=== PATIENT | female | born 1960 | race Caucasian/White ===

== ENCOUNTER 2018-12-19 05:19 | Inpatient (IN) | payer MEDICAID, SELFPAY ==
[2018-11-23 10:42] VITALS: BP 119/58; PULSE 91; RESP 17; TEMP 37.7; O2SAT 94; BMI 24.4
--- NOTE | 2018-11-23 11:04 | SDCEKG_ITS ---
Test Reason : Blood Pressure : / mmHG Vent. Rate : 084 BPM Atrial Rate : 084 BPM P-R Int : 150 ms QRS Dur : 096 ms QT Int : 360 ms P-R-T Axes : 071 072 049 degrees QTc Int : 425 ms Normal sinus rhythm Incomplete right bundle branch block Borderline ECG Confirmed by JESSICA BRAR, BREN ([id number]), editorial intern HERNESTO HOUSE ([id number]) on 11/24/2018 11:15:06 AM Referred By: Malcolm Wise Confirmed By:BREN LOPEZ MD
--- NOTE | 2018-11-23 11:22 | RAD_ITS ---
STUDY: X-RAY CHEST REASON FOR EXAM: Female, 58 years old. Wheezing and cough for past couple of days. TECHNIQUE: Frontal and lateral views of the chest. COMPARISON: November 18, 2016 FINDINGS: There is stable hyperexpansion. There is no demonstrated pleural abnormality. Normal size heart. Normal mediastinum and macho. Normal visualized pulmonary arteries. Normal visualized aortic arch and descending thoracic aorta. Normal visualized thoracic spine. Normal visualized ribs, clavicles, and shoulders. There is no demonstrated abnormality of the visualized soft tissue structures of the upper abdomen. RAD/Chest PA and Lateral IMPRESSION: Stable hyperexpansion with no acute finding. Electronically Signed: Moody Bashir MD at 12:21 EDT , Service support ,
[2018-11-23 11:41] LABS: Mean Corp Hgb Conc 31.8 g/gl (32-36); Mean Corpuscular Hgb 28.4 pg (27.0-32.0); Mean Corpuscular Volume 89.2 fL (81-99); Mean Platelet Vol. 9.6 fl (6.2-12.0); Platelet Count 304 K/mm3 (150-450); RBC Distribution Width CV 14.1 % (11.6-14.6); RBC Distribution Width SD 46.3 fl (35.1-43.9); Red Blood Count 4.93 M/mm3 (4.2-5.4); White Blood Count 6.8 K/mm3 (4.4-11.0)
[2018-11-23 11:43] LABS: Scan Indicated on CBC? Y/N NO
[2018-11-23 11:57] LABS: Anion Gap 6 (5-15); BUN 6 mg/dL (7-18); BUN/Creat Ratio 8.7 RATIO (10-20); Chloride 105 mmol/L (98-107); Creatinine, Serum 0.69 mg/dL (0.55-1.02); EST Glomerular Filtration Rate 93 mL/min (>60); Est Glom Filt Rate - Afr Amer 112 mL/min (>60); Estimated Creatinine Clearance 85.37 ml/min; Glucose 103 mg/dL (74-106); Sodium Level 138 mmol/L (136-145)
--- NOTE | 2018-11-23 20:45 | HP.PCM_ITS ---
History and Physical Date of Admission: 11/30/18 HISTORY AND PHYSICAL - COLON RESECTION FOR?RIGHT COLON UNRESECTABLE POLYP ? [place] Dhaliwal 1960 November 23, 2018 ? REFERRING PHYSICIAN: ??[place]ia Galloway MD ? CHIEF COMPLAINT: ?Unresectable polyp ? HPI: The patient is a 58 year old female with a history of challenging bowel preps relating to poor cleansing and previous smaller polyps which were removed. ?The patient underwent colonoscopy on November 01, [address] [place] Galloway which demonstrated a large sessile villous appearing polyp in the distal right colon. ?It appeared that the site had previously been tattooed with Analisa ink.. ??Pathology returned as fragments of tubular adenoma. ? The patient was given the option of referral to GI for possible saline lift or removal in either [facility] versus laparoscopic right hemicolectomy. ?I discussed with the patient the risks and benefits of both procedures and seems like to undergo laparoscopic right hemicolectomy. ? The patient is being seen by me today at the request of ?for my opinion and advice regarding unresectable right colon polyp. ? PAST?MEDICAL?HISTORY PAST MEDICAL HISTORY Diagnosis Date ? Asthma ? ? Bipolar I disorder, most recent episode (or current) unspecified ? ? Blood dyscrasia ? ? Chronic obstructive pulmonary disease (COPD) (HCC) ? ? Dysthymic disorder ? ? Depression (non-psychotic) ? Lumbago ? ? Obstructive chronic bronchitis with exacerbation (HCC) ? ? COPD ? Pulmonary embolus (HCC) ? ? 25 years prior ? Schizophrenia (HCC) ? ? follows with Dr Bill at [facility] ? Snoring ? ? Tobacco use disorder ? ? 1/2 ppd since age of 11 ? ? PAST?SURGICAL?HISTORY PAST SURGICAL HISTORY Procedure Laterality Date ? APPENDECTOMY ? 1984 ? COLONOS W/REM POLYP SNARE ? 04/19/12 ? 4 polyps - 3 yr follow up ? COLONOSCOP W/ OR W/O [facility] SPEC ? 10/19/2018 ? Colonoscopy ? EGD W/O [facility] SPECIMEN W/BX ? 04/19/12 ? gastritis ? EXCIS BREAST LES W XRAY MARKER Left 11/18/2016 ? Mild duct ectasia, benign microcalcifications ? HERNIA REPAIR HX ? 90s ? Lt inguinal ? L'SCOPE DX W/WO BRUSHINGS/WASHINGS ? ? ? Laparoscopy ? LAPAROSCOPIC CHOLEYCYSTECTOMY ? 82 ? Cholecystectomy, lap ? PAST SURGICAL HISTORY OF ? 10/27/10 ? L5-S1 Microdisckectomy ? PAST SURGICAL HISTORY OF Left 11/18/2016 ? breast bx-Dr. Wise ? TOTAL ABDOM HYSTERECTOMY ? 1982 ? Hysterectomy, VALDEMAR ? ? CURRENT?MEDICATIONS ? Current Outpatient Medications: peg 3350-Electrolytes (GOLYTELY) 236-22.74-6.74 -5.86 gram suspension As per instructions for colon cleansing prior to colonoscopy Disp: 1 Container Rfl: 0 albuterol (PROVENTIL) 2.5 mg /3 mL (0.083 %) nebulizer solution Use 3 mL via nebulizer every 4 hours as needed for Wheezing/Shortness of Breath. Use over 5-15minutes. Disp: 1 Package Rfl: 0 albuterol HFA (PROVENTIL HFA, VENTOLIN HFA) 90 mcg/actuation inhaler Inhale 2 Puffs as instructed every 4 hours as needed for Wheezing/Shortness of Breath. Disp: 1 Inhaler Rfl: 1 omeprazole (PRILOSEC) 20 mg capsule Take 1 capsule by mouth twice daily. Disp: 180 capsule Rfl: 3 Melatonin 5 mg tab Take 5 mg by mouth daily at bedtime. Disp: Rfl: prazosin (MINIPRESS) 1 mg cap ? Disp: Rfl: escitalopram oxalate (LEXAPRO) 20 mg tablet ? Disp: Rfl: CALCIUM CARBONATE/VITAMIN D3 (CALCIUM 600 + D,3, ORAL) Take ?by mouth. Disp: Rfl: benztropine (COGENTIN) 1 mg tablet Take 1 mg by mouth twice daily. Disp: Rfl: QUEtiapine (SEROQUEL) 300 mg tablet Take 300 mg by mouth daily at bedtime. Disp: Rfl: ? No current facility-administered medications for this visit.? ? ALLERGIES:?Demoral [Meperidine]; Desyrel [Trazodone Hcl]; Doxycycline; Erythromycin; Morphine; Prednisone ? PERSONAL HISTORY:? SOCIAL?HISTORY Social History ??Socioeconomic History ?Marital status: ?Spouse name: Not on file ?Number of children: Not on file ?Years of education: Not on file ?Highest education level: Not on file ??Social Needs ?Financial resource strain: Not on file ?Food insecurity - worry: Not on file ?Food insecurity - inability: Not on file ?Transportation needs - medical: Not on file ?Transportation needs - non-medical: Not on file ??Occupational History ?Not on file ??Tobacco Use ?Smoking status: Current Every Day Smoker ?Packs/day: 0.50 ?Years: 34.00 ?Pack years: 17 ?Types: Cigarettes ?Start date: 10/02/1972 ?Smokeless tobacco: Never Used ??Substance and Sexual Activity ?Alcohol use: No ?Drug use: No ?Sexual activity: Not Currently ??Other Topics ?Concerns: ?Not on file ??Social History Narrative ?Not on file ? FAMILY HISTORY:? FAMILY?HISTORY FAMILY HISTORY Problem Relation Age of Onset ? Cancer Father ?prostate ? other (Bleeding disorder [Other]) Mother ? ? Allergies Sister ? ? Blood Disease Mother ? ? Breast Cancer Other ?cousin ? Diabetes Mother ? ? Heart Sister ? ? Psychiatry Sister ? ? Colon Cancer Mother ? ? Anesthesia Mother ? ? Breast Cancer Mother ? ? Prostate Cancer Father ? ? Cervical Cancer Maternal Aunt ? ? Diabetes Sister ? ? Coronary Artery Disease Sister ? ? Hypertension Sister ? ? Lipids Sister ? ? Stroke Sister ? ? REVIEW OF SYMPTOMS: ??The review of systems data was entered by the nurse and reviewed by me ? Nursing Notes: Tahmina Javier LPN ?11/22/2018 ?2:42 PM ?Signed REVIEW OF SYSTEMS: General ?- denies fevers, ?denies anorexia Cardiovascular ? denies chest pain Pulmonary ? has COPD, some shortness of breath on exertion, denies coughing up blood Gastrointestinal ???see HPI Neurological ? ?denies seizures Genitourinary ? denies blood in urine, denies burning with urination Hematological ? denies spontaneous/prolonged bleeding Skin ? denies nonhealing skin wounds Musculoskeletal ? right hip pain Endocrine ? denies diabetes Psychological ? denies?mood changes ? ? ? PHYSICAL EXAMINATION: ? General: ?The patient is 58 year old female, well nourished, well hydrated in no acute distress. ?The patient is oriented to time, place, and person. ? VITALS:?There were no vitals taken for this visit.?There is no height or weight on file to calculate BMI.? ? HEENT: ?Normal cephalic, ataumatic, pupils are equally round, sclera are anicteric, mucous membranes are moist, oropharynx is clear. ?Neck has no masses, asymmetry or lymphadenopathy. ?Thyroid is unremarkable. ? Respiratory: ?Clear to auscultation and percussion. ?Normal respiratory excursion and pattern. ? Cardiac: ?Examination is regular rate and rhythm. ? Abdominal exam: ?Soft, nontender, ?with no palpable masses. ?No hepatosplenomegaly. ?No palpable hernias. ? Rectal exam: ?exam deferred ? Extremities: ?no clubbing, cyanosis or edema. ?No adenopathy. ? LABORATORY VALUES: As Noted ? RADIOLOGIC STUDIES: ?As Noted ? Assessment ? IMPRESSION: Unresectable right colon polyp ? PLAN: ? We extensively discussed the diagnosis and discussed the surgical options. ??The patient has elected to undergo colon resection ? I plan to perform a?Laparoscopic colectomy partial right hemicolectomy- 32545- 142. ?The planned surgical procedure was discussed extensively with the patient. ?The risks, benefits, anticipated outcomes and possible complications and alternatives were discussed. ?My staff has also explained the procedure in understandable terms and the patient was given the option to take printed material concerning the planned procedure. ?The patient had the opportunity to ask questions concerning the planned procedure. ?The patient freely consents to the planned procedure. ?? ? I will plan for?outpatient bowel preparation including mechanical and antibiotic preparation including Neomycin and Flagyl 1gm each at 6,8, and 10pm the night before surgery. ? Anticipated Surgical Procedure/ CPT Code:?Laparoscopic colectomy partial right hemicolectomy- 89078-137 ? Anticipated Anesthetic:?General ? Patient weight:??There were no vitals taken for this visit.?BMI: ?There is no height or weight on file to calculate BMI. ? Planned antibiotic:?Cefotetan?2gm IVPB operational intelligence officer to OR ? SCDs needed -?Yes ? Neuro Ophthalmologist Needed -?Yes ?? ? Diagnoses:?(K63.9) Colonic mass ?(primary encounter diagnosis) ? My findings have been communicated to ?via shared medical record. ?This note will be forwarded to Dr. Pancho Aguilar MD. ? Return to Clinic: The patient is instructed to follow-up with me?1 week post operatively. ? Malcolm Wise MD
[2018-12-19] VITALS (18 sets, daily range): BP systolic 104–146; BP diastolic 53–82; PULSE 83–105; RESP 16–20; TEMP 36.5–36.8; O2SAT 92–100; BMI 24.4
[2018-12-19] MEDS: Acetaminophen 500 MG Tablet 1000 MG PO ×4 (06:04→23:47)
[2018-12-19] MEDS: Magnesium Sulfate 4gm/100mL 4 GM/100 ML IV.SOLN. IV (06:19)
[2018-12-19] MEDS: Lactated Ringers 1,000 ML 40 ML IV (06:19)
[2018-12-19 07:15] LABS: Bedside Glucose 116 mg/dL (70-110)
--- NOTE | 2018-12-19 07:30 | COL_PTH ---
PATIENT: LASHELL RAMSEY LOC: MS2 U#:[id number] AGE/SX: 58/F ROOM: MS211 RE12/19/[address]: Dr. Malcolm Wise MD : 1960 BED: 1 DIS: 12/21/2018 SPEC #: [id number] RECD: 12/19/18 11:07 STATUS: CAROLINE RELeon #: [id number] OLYA: 12/19/18 07:[address]: Malcolm Wise DEPT: SURGICAL PATHOLOGY RECD BY: Pernell Arita ENTERED: 12/19/18 13:21 SP TYPE: COLON OTHR DR: Dr. Pancho Aguilar MD Tissues: Right colon Procedures: Surgery Specimen Level III Surgery Specimen Level V HEADER OPERATION: ERAS - laparoscopic colectomy, partial right hemicolectomy PRE-OP DIAGNOSIS: Colonic mass TISSUE SUBMITTED: Right colon MICROSCOPIC DIAGNOSIS Right colon, right hemicolectomy: Tubulovillous adenoma (3 cm in greatest dimension). Tubular adenoma (0.5 cm in greatest dimension). Thirteen (13) pericolonic lymph nodes with reactive changes. Colonic donuts x2, no pathologic diagnosis. SJ:raven 12/21/18 COMMENT Case has been reviewed in consultation with Dr. Cole who concurs with the above diagnosis. IDC:JUHI MICROSCOPIC DESCRIPTION Slides are reviewed. GROSS DESCRIPTION Received in fixative is one container labeled with the patient's name and designated right colon. The specimen consists of a previously opened right hemicolectomy specimen consisting of cecum with ascending colon and segment of small intestine with attached adipose tissue. The cecum with ascending colon measures 15 cm in length and segment of small intestine measures 6 cm in length. The appendix is not identified in the specimen. 6 cm away from the distal resection margin there is a sessile polyp measuring 3 x 1.5 x 0.5 cm. This polyp is 7 cm away from the ileocecal wall. Also present in the container are two donut-shaped pieces of tissue measuring 2.5 x 2 x 1.5 cm and 4 x 2 x 0.5 cm. The serosal surface overlying the polyp shows black dye discoloration. Both resection margins are stapled. More dictation will follow after overnight fixation. The pericolonic adipose tissue is fixed in lymph node revealing solution. / SJ:raven 12/19/18 Both donut pieces show multiple deepa. Additional mucosal polyp is also noted 1 cm proximal to the larger polyp measuring 0.5 cm in greatest dimension. No other additional lesions are identified. Sections of the polypoid lesion appear to be limited to the mucosa. Sections of the pericolonic do not reveal multiple lymph nodes. The largest lymph node measures 1 cm in greatest dimension. Salvage Engineering Technician sections are submitted as follows: 1 - donut pieces, 2 - proximal and distal resection margins, 3??smaller polyp, entirely submitted, 4-7 - larger polyp, entirely submitted 8 - ileocecal valve, 9 - outbound telemarketing representative section of large intestine, 10 - one bisected lymph node, 11 - multiple lymph nodes, 12 - one bisected lymph node, 13??one bisected lymph node, 14 - one bisected lymph node, 15 - multiple lymph nodes, 16?- one bisected lymph node. / SJ:raven 12/20/18 TC:1 CPT: 58537, 73259
[2018-12-19] MEDS: Lidocaine/D5W 2,000 MG/250 ML IV.SOLN 2000 MG (07:50)
[2018-12-19] MEDS: BUPIVACAINE LIPOSOME/PF 20 ML VIAL OPERA.SITE (10:30)
[2018-12-19] MEDS: Bupivacaine 0.25% 30 ML Vial (10:30)
--- NOTE | 2018-12-19 10:54 | OP.PCM_ITS ---
Report of Operation Date of Procedure: 12/19/18 Pre-Operative Diagnosis: ascending colon unresectable polyp Post-Operative Diagnosis: ascending colon unresectable polyp - in specimen Surgery/Procedure Performed:: laparoscopic right hemicolectomy Description of Surgical Findings:: as above marsh buggy operator: Johanna Del Toro Type of Anesthesia:: General Anesthesiologist: Aydin Iqbal - ASA3 Specimen's removed: Right colon Drains: none Estimated Blood Loss (mL): 20 Fluids Replaced: 1350 Description of Procedure: The patient was brought to the operating suite. Sign in was performed verifying patient, site, procedure, position, and DVT prophylaxis with SCDs. Patient 2 g of cefotetan. Preoperative bowel prep of mechanical and antibiotic comprised of GoLYTELY and then neomycin and Flagyl 1 g 3 doses evening before was given Following induction of general anesthetic. The patient?s abdomen was prepped and draped in the usual fashion. Timeout was performed verifying patient, site, position. Local anesthetic was injected below the umbilicus. Incision made and dissection carried down to the umbilical root fascia. 2 stay sutures were placed. Incision made in the fascia, the peritoneum entered under direct visualization. A 10 mm Roblero trocar was inserted and secured with the stay sutures. Pneumoperitoneum to 15 mmHg was insufflated. Visual inspection revealed adhesions to the right lower quadrant/cecal base from the previous appendectomy and adhesions from previous cholecystectomy but no midline adhesions. 2 5mm ports were placed in the standard midline position. Mobilization the avascular plane was undertaken from the base of the cecum up and around the hepatic flexure. Division of the lesser sac from the midline to the hepatic flexure was undertaken. When this was fully mobilized. The duodenum was visualized from the right flank region. Next, the terminal ileum area was brought up and a cleavage point noted in the mesentery. Harmonic Scalpel was used to create a window in the terminal ileal mesentery and division was taken down to the ileocolic root. Next the transverse colon was grasped and the vasculature coming from the middle colic vessel was identified. A window was made in the bare area proximal to the middle colic vessels just overlying the duodenal sweep. This was also fully divided. Dissection was then carried out at the ileal colic vessel root. The artery and vein were identified and doubly clipped proximally and doubly clipped distally with Hem-o-christianne clips. With full dissection of the mesentery and full mobilization the colon, the umbilical incision was extended and a wound protector placed. The terminal ileum and cecum ascending colon part of the transverse colon were delivered through the wound protector. Complete division of the mesentery to the bowel was undertaken at both sites. The bowel was transected with an intestinal load echelon stapler. On this a functional stapled end-to-end anastomosis was performed between the ileum and transverse colon with an echelon stapler. The staple line was checked for hemostasis and following this the anastomosis closed with a TA stapler creating a wide triangle opening that was easily palpable. At this point, the specimen was opened on the back table. There was noted to be the sessile polyp in the expected locationin the mid ascending colon. Gown and gloves were changed. pneumoperitoneum was reestablished. There was good anatomic positioning of the small bowel. It was good hemostasis along the incisions. Pneumoperitoneum was reestablished. at this point, a field block using Exparel 266mg diluted to 100cc total volume with a total injected volume of approximately 60 cc was injected for regional transverse abdominis block while visualizing the needle location laparoscopically. The 5mm ports were removed under direct visualization with no signs of bleeding saving the superior port for visual inspection of the fascial closure. Pneumoperitoneum was released. The umbilical fascial defect was closed with a running 0 PDS suture. Reestablished which demonstrated good closure of the fascia with no untoward tissue attachments. Skin was closed with interrupted 4-0 Monocryl subcuticular sutures. Steri-Strips and bandages were applied. The patient was brought to recovery room in stable condition. - Admit VTE Documentation VTE Present on Admission: No VTE Mechan Device Prophylaxis: SCD's VTE Pharm Prophylaxis ordered?: No
[2018-12-19] MEDS: Gabapentin 300 MG Capsule PO ×2 (14:20→17:46)
[2018-12-19] MEDS: oxyCODONE 5 MG Tablet PO (15:39)
[2018-12-19] MEDS: Budesonide Respules 0.5 MG/2 ML AMPUL.NEB. INHALATION (21:46)
[2018-12-19] MEDS: QUETIAPINE FUMARATE 300 MG TABLET 600 MG PO (22:04)
[2018-12-19] MEDS: Benztropine 2 MG Tablet PO (22:05)
[2018-12-19] MEDS: Pantoprazole Sodium 20 MG Tablet PO (22:05)
[2018-12-19] MEDS: lamoTRIgine 100 MG Tablet PO (22:05)
[2018-12-20] MEDS: Lactated Ringers 1,000 ML 40 ML IV (03:51)
[2018-12-20 03:53] VITALS: BP 138/76; PULSE 80; RESP 18; TEMP 37.1; O2SAT 94
[2018-12-20] MEDS: Acetaminophen 500 MG Tablet 1000 MG PO ×3 (06:09→23:36)
[2018-12-20 06:15] LABS: Hematocrit 38.4 % (37-47); Hemoglobin 12.5 g/dl (12.0-15.0); Mean Corp Hgb Conc 32.6 g/gl (32-36); Mean Corpuscular Hgb 28.7 pg (27.0-32.0); Mean Corpuscular Volume 88.1 fL (81-99); Mean Platelet Vol. 10.2 fl (6.2-12.0); Platelet Count 234 K/mm3 (150-450); RBC Distribution Width CV 14.4 % (11.6-14.6); RBC Distribution Width SD 46.2 fl (35.1-43.9); Red Blood Count 4.36 M/mm3 (4.2-5.4); White Blood Count 8.8 K/mm3 (4.4-11.0)
[2018-12-20 06:21] LABS: Scan Indicated on CBC? Y/N NO
[2018-12-20 06:33] LABS: BUN 7 mg/dL (7-18); BUN/Creat Ratio 12.7 RATIO (10-20); Calcium,Total 8.6 mg/dL (8.5-10.1); Chloride 107 mmol/L (98-107); Creatinine, Serum 0.55 mg/dL (0.55-1.02); EST Glomerular Filtration Rate 120 mL/min (>60); Est Glom Filt Rate - Afr Amer 145 mL/min (>60); Glucose 107 mg/dL (74-106); Potassium 3.9 mmol/L (3.5-5.1); Sodium Level 139 mmol/L (136-145)
[2018-12-20 06:34] LABS: Anion Gap 2 (5-15)
[2018-12-20 07:08] VITALS: PULSE 89; RESP 18; O2SAT 91
[2018-12-20] MEDS: Budesonide Respules 0.5 MG/2 ML AMPUL.NEB. INHALATION ×2 (07:08→19:44)
--- NOTE | 2018-12-20 08:24 | PCM.PN.SRG ---
Subjective: mild incisional pain - Physical Exam General: Alert, Oriented x3, Cooperative Lungs: Normal air movement, Wheezes, - Cardiovascular: Regular rate, Regular Rhythm Abdomen: Soft, Non Tender, Hypoactive Bowel Sounds Vital Signs Temp Pulse Resp BP Pulse Ox 98.8 F 80 18 138/76 H 94 12/20/18 03:53 12/20/18 03:53 12/20/18 03:53 12/20/18 03:53 12/20/18 03:53 Oxygen Flow Rate (L/min) 2 Oxygen Delivery Method Nasal Cannula Weight: 70.7 kg Body Mass Index (BMI) 24.4 Intake and Output for Last 24 Hours 12/18/18 12/19/18 12/20/18 23:59 23:59 23:59 Intake Total 2988 / 2988 962 / 962 Output Total 200 / 200 1350 / 1350 Balance 2788 / 2788 -388 / -388 Laboratory Tests Past 24 Hrs 12/20/18 12/20/18 05:38 05:38 WBC 8.8 RBC 4.36 Hgb 12.5 Hct 38.4 MCV 88.1 MCH 28.7 MCHC 32.6 RDW 14.4 RDW Differential 46.2 H Plt Count 234 MPV 10.2 Sodium 139 Potassium 3.9 Chloride 107 Carbon Dioxide 30.0 Anion Gap 2 L BUN 7 Creatinine 0.55 Estim Creat Clear Calc 107.10 Est GFR (MDRD) Af Amer 145 Est GFR (MDRD) Non-Af 120 BUN/Creatinine Ratio 12.7 Glucose 107 H Calcium 8.6 Medical Necessity - Tobacco Use Smoking Status: Current every day smoker Tobacco Use: Cigarettes Assessment/Plan All Active Problems Chest pain (Acute) POD # 1 s/p laparoscopic right hemicolectomy for unresectable polyp few wheezes, - smoking 1 PPD. will encourage incentive spirometry and ambulation VTE prevention - SCD and Lovenox On clears - few bowel sounds - will be cautious until return of bowel function/ flatus
[2018-12-20] MEDS: Gabapentin 300 MG Capsule PO ×3 (09:38→17:08)
[2018-12-20] MEDS: buPROPion (XL) 150 MG TABLET.XL PO (09:38)
[2018-12-20] MEDS: lamoTRIgine 100 MG Tablet PO ×2 (09:38→21:45)
[2018-12-20] MEDS: Escitalopram Oxalate 10 MG Tablet 20 MG PO (09:38)
[2018-12-20] MEDS: Enoxaparin 40 MG/0.4 ML Syringe SC (09:38)
[2018-12-20] MEDS: Pantoprazole Sodium 20 MG Tablet PO ×2 (09:38→21:45)
[2018-12-20 09:49] VITALS: BP 114/72; PULSE 90; RESP 18; TEMP 36.9; O2SAT 95
--- NOTE | 2018-12-20 11:00 | CASEMGMT ---
RN CM Assessment Presentation: Lap R hemicolectomy Intro role of CM and purpose of RN CM assessment. Demographics, PCP and Pharmacy verified. PCP: Dr. Aguilar Specialists: Dr. Wise [facility]erred [facility]acy[facility] Insurance: [facility] Prescription Benefit: yes LNOK: Son, Josh Dhaliwal Living Arrangements: Mobile Home, 3 steps into home. Pt states she is independent with ADL's, does own cooking. Transportation: States her son's girlfriend helps with transportation, pt does not drive. DME: cane, Home oxygen through [employer] including concentrator and portability. HHC: none Patient DC goals: Home DC PLAN: Home
[2018-12-20] MEDS: Ibuprofen 600 MG Tablet PO (12:41)
[2018-12-20] MEDS: Ensure Clear 120 ML Liquid PO ×4 (12:42→21:47)
[2018-12-20 15:56] VITALS: BP 124/77; PULSE 93; RESP 16; TEMP 36.4; O2SAT 94
[2018-12-20 20:00] VITALS: BP 117/70; PULSE 89; RESP 16; TEMP 36.7; O2SAT 97
[2018-12-20] MEDS: oxyCODONE 5 MG Tablet PO (21:45)
[2018-12-20] MEDS: QUETIAPINE FUMARATE 300 MG TABLET 600 MG PO (21:45)
[2018-12-20] MEDS: Benztropine 2 MG Tablet PO (21:45)
[2018-12-21 02:00] VITALS: BP 96/56; PULSE 86; RESP 18; TEMP 36.8; O2SAT 94
[2018-12-21] MEDS: Lactated Ringers 1,000 ML 40 ML IV (04:40)
[2018-12-21] MEDS: oxyCODONE 5 MG Tablet PO (05:57)
[2018-12-21] MEDS: Acetaminophen 500 MG Tablet 1000 MG PO (05:57)
[2018-12-21 06:36] VITALS: RESP 16
--- NOTE | 2018-12-21 06:39 | DCINST_ITS ---
Discharge Diet: Light diet - advance as tolerated Discharge Activity: Return to Normal Activity, May Shower Weight Bearing Status: Weight bearing as tolerated Call your doctor if your incision/area has: Continuous Slow Oozing, Sudden Increased Bleeding, Increased Pain/ Swelling, Increased Redness, Foul Smelling Discharge, Swelling at the incision site Call your doctor if you observe: Fever of 101 or Higher, Inability to urinate, Inability to have a bowel movement, Shortness of breath, Dizziness Cleanse incision/area with: Soap & Water Allergies/Adverse Reactions: Allergies doxycycline Allergy (Verified 11/23/18 10:36) Hives erythromycin base Allergy (Verified 11/23/18 10:36) Hives meperidine HCl [From Demerol] Allergy (Verified 11/23/18 10:36) Hives morphine Allergy (Verified 11/23/18 10:36) Hives prednisone Allergy (Verified 11/23/18 10:36) Hives trazodone HCl [From Desyrel] Allergy (Verified 11/23/18 10:36) Hives Medications to take at Discharge Escitalopram Oxalate [Lexapro] 20 mg PO DAILY 03/17/15 Gabapentin 300 mg PO TID 03/17/15 Lamotrigine [Lamictal] 100 mg PO BID 03/17/15 Quetiapine Fumarate [Seroquel XR] 600 mg PO QHS 03/17/15 Triazolam [Halcion] 0.25 mg ORAL QHS PRN PRN 03/17/15 buPROPion XL [Wellbutrin Xl] 150 mg PO DAILY 03/17/15 Benztropine [Cogentin] 2 mg PO QHS 06/30/15 Omeprazole [Prilosec] 20 mg PO BID 03/04/16 Albuterol Aerosols [Ventolin Aerosols] 2.5 mg INHALATION Q4H PRN PRN 11/16/16 Fluticasone 110 Mcg [Flovent 110 Mcg] 1 puff INHALATION BID 11/16/16 Acetaminophen [Tylenol] 1,000 mg PO Q6 tablet 12/21/18 Ibuprofen [Motrin] 600 mg PO TID PRN tablet 12/21/18 Insulin Lispro [Humalog KwikPen] 0 unit SC Q4H PRN PRN insuln.pen 12/21/18 Primary Care Physician: Elderbrock,Pancho, MD [Primary Care Provider] - Test Results: Test results from this visit will be discussed in further detail at your follow- up appointment, if applicable. Please Follow Up With: Malcolm Wise MD When: Call to make an appointment to be seen in about 7 days.
--- NOTE | 2018-12-21 06:39 | PCM.DC.SUM ---
Discharge Date and Diagnosis Date of Admission: 12/19/18 Date of Discharge: 12/21/18 - Primary Discharge Diagnosis sessile ascending colon polyp - Secondary Discharge Diagnosis Chronic Problems Essential (primary) hypertension (Chronic) COPD (chronic obstructive pulmonary disease) (Chronic) Schizophrenia (Chronic) Bipolar disease, chronic (Chronic) Tobacco dependence (Chronic) Hospital Course and Treatment Operations: colectomy - laparoscopic right hemicolectomy Summary of Care Provided: The patient is a 58 year old F with an unresectable ascending colon polyp. She underwent laparoscopic right hemicolectomy. She was tolerating oral, had controlled pain and had return of bowel function on POD # 2. - Physical Exam General: Alert, Oriented x3 Lungs: Clear to auscultation, Normal air movement Cardiovascular: Regular rate, Regular Rhythm Abdomen: Bowel Sounds Present, Soft, Non Tender Vital Signs Temp Pulse Resp BP Pulse Ox 98.2 F 86 18 96/56 L 94 12/21/18 02:00 12/21/18 02:00 12/21/18 02:00 12/21/18 02:00 12/21/18 02:00 Oxygen Flow Rate (L/min) 2 Oxygen Delivery Method Room Air Weight: 70.7 kg Body Mass Index (BMI) 24.4 Intake and Output for Last 24 Hours 12/19/18 12/20/18 12/21/18 23:59 23:59 23:59 Intake Total 2988 / 2988 2985 / 2985 1196 / 1196 Output Total 200 / 200 4800 / 4800 1650 / 1650 Balance 2788 / 2788 -1815 / -1815 -454 / -454 Discharge Diet: Light diet - advance as tolerated Discharge Activity: Return to Normal Activity, May Shower Weight Bearing Status: Weight bearing as tolerated Call your doctor if your incision/area has: Continuous Slow Oozing, Sudden Increased Bleeding, Increased Pain/ Swelling, Increased Redness, Foul Smelling Discharge, Swelling at the incision site Call your doctor if you observe: Fever of 101 or Higher, Inability to urinate, Inability to have a bowel movement, Shortness of breath, Dizziness Cleanse incision/area with: Soap & Water Home Medications: Medications to take at Discharge Escitalopram Oxalate [Lexapro] 20 mg PO DAILY 03/17/15 Gabapentin 300 mg PO TID 03/17/15 Lamotrigine [Lamictal] 100 mg PO BID 03/17/15 Quetiapine Fumarate [Seroquel XR] 600 mg PO QHS 03/17/15 Triazolam [Halcion] 0.25 mg ORAL QHS PRN PRN 03/17/15 buPROPion XL [Wellbutrin Xl] 150 mg PO DAILY 03/17/15 Benztropine [Cogentin] 2 mg PO QHS 06/30/15 Omeprazole [Prilosec] 20 mg PO BID 03/04/16 Albuterol Aerosols [Ventolin Aerosols] 2.5 mg INHALATION Q4H PRN PRN 11/16/16 Fluticasone 110 Mcg [Flovent 110 Mcg] 1 puff INHALATION BID 11/16/16 Acetaminophen [Tylenol] 1,000 mg PO Q6 tablet 12/21/18 Ibuprofen [Motrin] 600 mg PO TID PRN tablet 12/21/18 Insulin Lispro [Humalog KwikPen] 0 unit SC Q4H PRN PRN insuln.pen 12/21/18 Primary Care Physician: Pancho Aguilar MD [Primary Care Provider] - Please Follow Up With: Malcolm Wise MD When: Call to make an appointment to be seen in about 7 days. Medical Necessity - Tobacco Use Smoking Status: Current every day smoker Tobacco Use: Cigarettes Meaningful Use Info Meaningful Use Diagnoses (Choose all that apply): None applicable
[2018-12-21 07:08] VITALS: PULSE 88; RESP 18; O2SAT 93
[2018-12-21] MEDS: Budesonide Respules 0.5 MG/2 ML AMPUL.NEB. INHALATION (07:08)
[2018-12-21 09:23] VITALS: BP 104/62; PULSE 84; RESP 16; TEMP 36.4; O2SAT 94
[2018-12-21] MEDS: buPROPion (XL) 150 MG TABLET.XL PO (09:35)
[2018-12-21] MEDS: Gabapentin 300 MG Capsule PO (09:35)
[2018-12-21] MEDS: lamoTRIgine 100 MG Tablet PO (09:35)
[2018-12-21] MEDS: Pantoprazole Sodium 20 MG Tablet PO (09:35)
[2018-12-21] MEDS: Escitalopram Oxalate 10 MG Tablet 20 MG PO (09:35)
== END 2018-12-21 10:00 | disposition home or self-care (01) | DRG 231 ==
LOC: ACINP 05:33 → MS2 08:27
PROVIDERS: Anesthesiology; Admitting Provider Surgery; Family Provider Family Medicine; PCP Family Medicine; Referring Provider Surgery; Visit Provider Surgery
PROC: 0DTF4ZZ Resection of Right Large Intestine, Percutaneous Endoscopic Approach (ICD-10-PCS; CPT 44205; principal; 2018-12-19 07:10)
DX: D12.2 Benign neoplasm of ascending colon (principal); I10 Essential (primary) hypertension; J44.9 Chronic obstructive pulmonary disease, unspecified; F31.9 Bipolar disorder, unspecified; F20.9 Schizophrenia, unspecified; F17.210 Nicotine dependence, cigarettes, uncomplicated
CPT/HCPCS: 36415; 71046; 80048; 82962; 85027; 88304; 88307; 93005; 94640; J7050; J7120; J2405

== ENCOUNTER 2020-08-29 12:45 | Emergency (ER) | payer MEDICAID, SELFPAY ==
[2018-12-19 14:03] VITALS: BMI 24.4
[2020-08-29 12:46] VITALS: BP 107/72; PULSE 94; RESP 16; TEMP 36.5; O2SAT 97; BMI 20.5
--- NOTE | 2020-08-29 13:03 | CT_ITS ---
STUDY: CT ABDOMEN AND PELVIS WITH CONTRAST REASON FOR EXAM: Female, 59 years old. LLQ PAIN X 1 WK. SUMMERS. COUGH. RADIATION DOSAGE (If Supplied By Facility): CTDIvol = ( 12.085 ) mGy, DLP = ( 534.73 ) mGycm TECHNIQUE: Transaxial images were obtained from the dome of the diaphragm to the symphysis pubis without oral contrast. IV 100mL Isovue-300 was administered. Sagittal and coronal images were reconstructed. Individualized dose optimization techniques were used for this CT. COMPARISON: None. FINDINGS: The visualized lung bases are unremarkable. The visualized portions of the heart are within normal limits. Normal liver. There are surgical clips in the gallbladder fossa consistent with a prior cholecystectomy. Minimal degree of central intrahepatic biliary ductal dilatation in keeping with prior cholecystectomy. Normal spleen. Normal pancreas. Normal bilateral adrenal glands. Normal right kidney. Normal left kidney. Normal visualized stomach. Normal small intestine. Moderate amount of fecal material is seen in the colon. Surgical anastomosis is seen in the region of the hepatic flexure. The appendix is visualized and appears normal. There is diffuse atherosclerotic calcification of the abdominal aorta and its major visceral branches. There is dilatation of the distal abdominal aorta with a transverse dimension of 2.9 cm. Normal inferior vena cava. Normal retroperitoneum. Normal urinary bladder. There is absence of the uterus consistent with a prior hysterectomy. Small benign appearing bilateral inguinal ligament. Disc space narrowing and disc degeneration at the L5-S1 level with the anterior spondylosis. CT/Abdomen/Pelvis W IV Cont ONLY IMPRESSION: Moderate amount of fecal material is seen in the colon. Minimal dilatation of the distal abdominal aorta. Electronically Signed: Randy Johnson, at 14:46 EST , Service support ,
[2020-08-29 13:54] LABS: Absolute Lymphocyte Count 2.28 X10^3/uL (0.83-4.51); Absolute Neutrophil Count 4.3 X10^3/uL (2.0-7.7); Basophil# 0.04 X10^3/uL; Basophil% 0.5 % (0-1); Eosinophil# 0.11 X10^3/uL; Eosinophils% 1.5 % (0-5); Hematocrit 42.6 % (37-47); Hemoglobin 13.5 g/dL (12.0-15.0); Lymphocyte # 2.28 X10^3/ul (4.0); Lymphocyte % 30.7 % (19-41); Mean Corp Hgb Conc 31.7 g/dL (32-36); Mean Corpuscular Hgb 27.8 pg (27.0-32.0); Mean Corpuscular Volume 87.7 fL (81-99); Mean Platelet Vol. 9.7 fl (6.2-12.0); Monocyte# 0.67 X10^3/uL; NRBC Flagged by Analyzer 0 % (0-5); Neutrophil # 4.31 X10^3/uL (2.7-7.7); Platelet Count 293 K/mm3 (150-450); RBC Distribution Width CV 14.4 % (11.6-14.6); RBC Distribution Width SD 46.3 fl (35.1-43.9); Red Blood Count 4.86 M/mm3 (4.2-5.4); White Blood Count 7.4 K/mm3 (4.4-11.0)
[2020-08-29 14:09] LABS: ALB/GLOB Ratio 1.1 RATIO (0.9-2.4); AST(SGOT) 11 U/L (15-37); Alanine Aminotransfer ALT/SGPT 17 U/L (13-56); Alkaline Phosphatase 107 U/L (45-117); Anion Gap 5 (5-15); BUN 10 mg/dL (7-18); BUN/Creat Ratio 16.4 RATIO (10-20); Calcium,Total 9.1 mg/dL (8.5-10.1); Chloride 103 mmol/L (98-107); Creatinine, Serum 0.61 mg/dL (0.55-1.02); EST Glomerular Filtration Rate 106 mL/min (>60); Est Glom Filt Rate - Afr Amer 129 mL/min (>60); Estimated Creatinine Clearance 94.81 ml/min; Globulin 3.5 g/dL (2.2-4.2); Glucose 93 mg/dL (74-106); Protein, Total 7.5 g/dL (6.4-8.2); Sodium Level 137 mmol/L (136-145)
[2020-08-29 14:21] LABS: Bacteria 0 SEEN /hpf (None Seen); Mucous, Urine 0 SEEN /hpf (<or=2+); Red Blood Cells-Urine 0 SEEN /hpf (0-5)
[2020-08-29 14:31] LABS: Color, Urine Yellow (Yellow); Glucose, Dipstick Normal (Normal); Ketone-Dipstick Negative (Negative); Leukocyte Esterase-Dipstick Negative /ul (Negative); Nitrite-Dipstick Negative (Negative); Occult Blood-Urine Negative /ul (Negative); Protein-Dipstick Negative (Negative); Urine Bilirubin Dipstick Negative (Negative); Urine Clarity Sl. Cloudy (Clear); Urine Urobilinogen Normal (Normal)
[2020-08-29 14:35] LABS: Squamous Epithelial Cells - UA 0-5 SEEN /hpf (5-10); White Blood Cells 0-5 SEEN /hpf (0-5)
--- NOTE | 2020-08-29 15:31 | ED.VIS.GEN ---
History of Present Illness Chief Complaint: General Illness Informant: Patient Narrative: Patient states for about 1 week she has had a headache and a cough. She is also been experiencing some left lower quadrant abdominal pain. She states that she went to see her doctors today she had a Covid test that will be back till tomorrow. She has been experiencing this abdominal pain so they sent her to the ED for evaluation. She notes she had a colonoscopy this year that was negative. She tells me she has no history of diverticulosis or kidney stones. She has been having regular bowel movements. No urinary symptoms. - Past Medical History (1) Bipolar disease, chronic Status: Chronic (2) COPD (chronic obstructive pulmonary disease) Status: Chronic (3) Essential (primary) hypertension Status: Chronic (4) Schizophrenia Status: Chronic (5) Tobacco dependence Status: Chronic Past Medical History - Allergies and Home Meds Allergies/Adverse Reactions: Allergies doxycycline Allergy (Verified 11/23/18 10:36) Hives erythromycin base Allergy (Verified 11/23/18 10:36) Hives meperidine HCl [From Demerol] Allergy (Verified 11/23/18 10:36) Hives morphine Allergy (Verified 11/23/18 10:36) Hives prednisone Allergy (Verified 11/23/18 10:36) Hives trazodone HCl [From Desyrel] Allergy (Verified 11/23/18 10:36) Hives Primary Care Physician: Pancho Aguilar MD [Primary Care Provider] - Prior records reviewed: Yes Surgical History: appendectomy, cholecystectomy, hysterectomy Smoking Status: Current every day smoker Alcohol: None Drugs: None - Family History Sibling Family History: Reports: Heart Disease Review of Systems General: Denies: Chills, Fever, Sweats Eyes: Denies: Visual changes - bilaterally, Diplopia ENT: Denies: Rhinorrhea, Sore throat Cardiovascular: Denies: Chest pain, Palpitations Respiratory: Reports: Cough. Denies: Dyspnea, Dyspnea on exertion Gastrointestinal: Reports: Abdominal pain. Denies: Nausea, Vomiting, Diarrhea, Melena, Hematochezia Genitourinary: Denies: Dysuria, Hematuria, Frequency Musculoskeletal: Denies: Back pain, Extremity Pain Skin: Denies: Rash, Wounds Neurological: Reports: Headache. Denies: Weakness, Numbness Physical Exam Vital Signs/Narrative: Vital Signs Temp Pulse Resp BP Pulse Ox 08/29/20 12:46 97.7 F L 94 16 107/72 97 Inital Vital Signs reviewed: Yes General: Well nourished, Well developed, No Acute Distress Head: Normocephalic, Atraumatic Eyes: Perrl, EOMI ENT: Moist mucous membranes, No rhinorrhea Neck: Supple, Nontender Cardiovascular: Regular rate, Regular rhythm, No murmurs Respiratory: No distress, CTA bilaterally, Chest nontender Abdomen: Soft, Nondistended, Normal bowel sounds, Tender - Tender to palpation left lower quadrant left middle quadrant of the abdomen. No guarding or rebound.. Negative for: Guarding, Rebound tenderness Back: Nontender, Normal Inspection Extremities: Nontender, No edema Skin: Normal color, No rash Neurological: Alert, Oriented x3, Cranial nerves II-XII grossly intact, Normal Strength, Normal Sensation Psychological: Normal affect, Normal Mood Diagnostic/Tx/Re-eval Clinical Impression(s) from Imaging Studies Abdomen/Pelvis CT 08/29/20 13:03 IMPRESSION: Moderate amount of fecal material is seen in the colon. Minimal dilatation of the distal abdominal aorta. Electronically Signed: Randy Elizabeth, at 14:46 EST , Service support , Laboratory Last Values WBC 7.4 K/mm3 (4.4-11.0) 08/29/20 13:40 RBC 4.86 M/mm3 (4.2-5.4) 08/29/20 13:40 Hgb 13.5 g/dL (12.0-15.0) 08/29/20 13:40 Hct 42.6 % (37-47) 08/29/20 13:40 MCV 87.7 fL (81-99) 08/29/20 13:40 MCH 27.8 pg (27.0-32.0) 08/29/20 13:40 MCHC 31.7 g/dL (32-36) L 08/29/20 13:40 RDW Std Deviation 46.3 fl (35.1-43.9) H 08/29/20 13:40 RDW Coeff of Loretta 14.4 % (11.6-14.6) 08/29/20 13:40 Plt Count 293 K/mm3 (150-450) 08/29/20 13:40 MPV 9.7 fl (6.2-12.0) 08/29/20 13:40 Immature Gran % (Auto) 0.300 % (0.0-0.9) 08/29/20 13:40 Neut % (Auto) 58.0 % (47-70) 08/29/20 13:40 Lymph % (Auto) 30.7 % (19-41) 08/29/20 13:40 [place] % (Auto) 9.0 % (0-10) 08/29/20 13:40 Eos % (Auto) 1.5 % (0-5) 08/29/20 13:40 Baso % (Auto) 0.5 % (0-1) 08/29/20 13:40 Absolute Neuts (auto) 4.3 X10^3/uL (2.0-7.7) 08/29/20 13:40 Absolute Lymphs (auto) 2.28 X10^3/uL (0.83-4.51) 08/29/20 13:40 Nucleated RBC % 0 % (0-5) 08/29/20 13:40 Sodium 137 mmol/L (136-145) 08/29/20 13:40 Potassium 4.0 mmol/L (3.5-5.1) 08/29/20 13:40 Chloride 103 mmol/L (98-107) 08/29/20 13:40 Carbon Dioxide 29.0 mmol/L (21.0-32.0) 08/29/20 13:40 Anion Gap 5 (5-15) 08/29/20 13:40 BUN 10 mg/dL (7-18) 08/29/20 13:40 Creatinine 0.61 mg/dL (0.55-1.02) 08/29/20 13:40 Estim Creat Clear Calc 94.81 ml/min 08/29/20 13:40 Est GFR (MDRD) Af Amer 129 mL/min (>60) 08/29/20 13:40 Est GFR (MDRD) Non-Af 106 mL/min (>60) 08/29/20 13:40 BUN/Creatinine Ratio 16.4 RATIO (10-20) 08/29/20 13:40 Glucose 93 mg/dL (74-106) 08/29/20 13:40 Calcium 9.1 mg/dL (8.5-10.1) 08/29/20 13:40 Total Bilirubin 0.30 mg/dL (0.20-1.00) 08/29/20 13:40 AST 11 U/L (15-37) L 08/29/20 13:40 ALT 17 U/L (13-56) 08/29/20 13:40 Alkaline Phosphatase 107 U/L (45-117) 08/29/20 13:40 Total Protein 7.5 g/dL (6.4-8.2) 08/29/20 13:40 Albumin 4.0 g/dL (3.2-5.0) 08/29/20 13:40 Globulin 3.5 g/dL (2.2-4.2) 08/29/20 13:40 Albumin/Globulin Ratio 1.1 RATIO (0.9-2.4) 08/29/20 13:40 Urine Color Yellow (Yellow) 08/29/20 14:10 Urine Clarity Sl. Cloudy (Clear) 08/29/20 14:10 Urine pH 7.0 (5.0 - 8.0) 08/29/20 14:10 Ur Specific [place] 1.010 (1.002-1.030) 08/29/20 14:10 Urine Protein Negative mg/dl (Negative) 08/29/20 14:10 Urine Glucose (UA) Normal mg/dl (Normal) 08/29/20 14:10 Urine Ketones Negative mg/dl (Negative) 08/29/20 14:10 Urine Occult Blood Negative /ul (Negative) 08/29/20 14:10 Urine Nitrite Negative (Negative) 08/29/20 14:10 Urine Bilirubin Negative mg/dL (Negative) 08/29/20 14:10 Urine Urobilinogen Normal mg/dl (Normal) 08/29/20 14:10 Ur Leukocyte Esterase Negative /ul (Negative) 08/29/20 14:10 Urine RBC 0 SEEN /hpf (0-5) 08/29/20 14:10 Urine WBC 0-5 SEEN /hpf (0-5) 08/29/20 14:10 Ur Squamous Epith Cells 0-5 SEEN /hpf (5-10) 08/29/20 14:10 Urine Bacteria 0 SEEN /hpf (None Seen) 08/29/20 14:10 Urine Mucus 0 SEEN /hpf (<or=2+) 08/29/20 14:10 - Medical Decision Making Patient's Covid antigen test was negative. CT of abdomen pelvis demonstrates moderate stool. And have her take a bottle of magnesium citrate and see if that makes a difference. Otherwise mostly supportive care return if worsening or concerns. Patient is comfortable with her plan. ED Disposition - Plan for ED Patient: Disposition: Home or Assisted Living Diagnosis: Abdominal pain, URI (upper respiratory infection) Instructions: ED Abdominal Pain Unkn Cause Fem Prescriptions: Magnesium Citrate [Citrate Of Magnesia] 300 ml PO X1 #1 bottle Prescription Printed Referrals: Pancho Aguilar MD [Primary Care Provider] - 1 Week if not improving
== END 2020-08-29 16:10 | disposition home or self-care (01) ==
PROVIDERS: Emergency Provider Emergency Medicine; PCP Family Medicine
DX: R10.32 Left lower quadrant pain (principal); J06.9 Acute upper respiratory infection, unspecified; J44.9 Chronic obstructive pulmonary disease, unspecified; I10 Essential (primary) hypertension; F31.9 Bipolar disorder, unspecified; F20.9 Schizophrenia, unspecified; Z79.51 Long term (current) use of inhaled steroids; Z79.899 Other long term (current) drug therapy; F17.200 Nicotine dependence, unspecified, uncomplicated
CPT/HCPCS: 74177; 80053; 81001; 85025; 87426; 99284; Q9967; A4216

== ENCOUNTER → 2021-03-26 10:42 | Outpatient (CLI) | payer MEDICAID, SELFPAY ==
--- NOTE | 2021-03-26 10:55 | RAD_ITS ---
STUDY: X-RAY - CERVICAL SPINE REASON FOR EXAM: Female, 60 years old. NECK PAIN TECHNIQUE: 3 view(s) of the cervical spine were obtained. COMPARISON: None FINDINGS: Normal anterior atlantoaxial articulation. Normal odontoid process. There is straightening of the normal cervical lordosis. Normal vertebral bodies and endplates. Normal disc space heights. Normal visualized intervertebral neuroforamina. The soft tissue structures are unremarkable. RAD/Cerv Spine 2 or 3 Views IMPRESSION: Straightening of the normal cervical lordosis. Electronically Signed: Randy Johnson MD at 11:18 EDT , Service support ,
[2021-03-26 12:32] LABS: Amphetamine Urine VISTA NEGATIVE (<1000 ng/mL); Barbiturate Urine VISTA NEGATIVE (< 200 ng/mL); Benzodiazepine Urine VISTA NEGATIVE (< 200 ng/mL); Cocaine Urine VISTA NEGATIVE (< 300 ng/mL); Ecstacy Urine VISTA NEGATIVE (< 500 ng/mL); Methadone Urine VISTA NEGATIVE (< 300 ng/mL); PCP Urine VISTA NEGATIVE (< 25 ng/mL); THC Urine VISTA NEGATIVE (< 50 ng/mL); Vista UDS pH Range 6
== END ==
PROVIDERS: PCP Family Medicine; Referring Provider Anesthesiology Pain Medicine; Visit Provider Anesthesiology Pain Medicine
DX: M54.2 Cervicalgia (principal); F11.20 Opioid dependence, uncomplicated
CPT/HCPCS: 72040; 80307

== ENCOUNTER 2022-11-27 08:53 | Emergency (ER) | payer MEDICAID, SELFPAY ==
[2022-11-27 08:54] VITALS: BP 117/84; PULSE 89; RESP 16; TEMP 36.4; O2SAT 95; BMI 19.8
[2022-11-27 08:58] VITALS: BP 117/84; PULSE 89; RESP 16; TEMP 36.4; O2SAT 94
[2022-11-27 09:02] VITALS: O2SAT 94
--- NOTE | 2022-11-27 09:06 | EKG12_ITS ---
Test Reason : CP/SOB Blood Pressure : / mmHG Vent. Rate : 091 BPM Atrial Rate : 091 BPM P-R Int : 144 ms QRS Dur : 088 ms QT Int : 354 ms P-R-T Axes : 072 066 057 degrees QTc Int : 435 ms Normal sinus rhythm Possible Left atrial enlargement Borderline ECG When compared with ECG of 23-NOV-2018 10:08, No significant change was found Confirmed by JESSICA BRAR, BREN ([id number]), editorial manager HERNESTO HOUSE ([id number]) on 12/02/2022 8:32:24 AM Referred By: STANISLAV Confirmed By:BREN LOPEZ MD
[2022-11-27 09:14] LABS: Absolute Lymphocyte Count 1.69 X10^3/uL (0.83-4.51); Absolute Neutrophil Count 1.1 X10^3/uL (2.0-7.7); Basophil# 0.01 X10^3/uL; Basophil% 0.3 % (0-1); Lymphocyte # 1.69 X10^3/ul (0.83-4.51); Lymphocyte % 50.1 % (19-41); Mean Corp Hgb Conc 32.6 g/dL (32-36); Mean Corpuscular Hgb 29.1 pg (27.0-32.0); Mean Corpuscular Volume 89.4 fL (81-99); Mean Platelet Vol. 10.1 fl (6.2-12.0); Monocyte# 0.48 X10^3/uL; Monocyte% 14.2 % (0-10); NRBC Flagged by Analyzer 0 % (0-5); Neutrophil # 1.08 X10^3/uL (2.7-7.7); Neutrophil % 32.1 % (47-70); Platelet Count 169 K/mm3 (150-450); RBC Distribution Width CV 13.4 % (11.6-14.6); RBC Distribution Width SD 44.3 fl (35.1-43.9); Red Blood Count 4.81 M/mm3 (4.2-5.4); White Blood Count 3.4 K/mm3 (4.4-11.0)
--- NOTE | 2022-11-27 09:20 | RAD_ITS ---
EXAM: XR CHEST, 1 VIEW CLINICAL INDICATION: Chest pain. TECHNIQUE: Frontal view of the chest. This report was created using [employer] report generation technology. COMPARISON: 11/23/2018. FINDINGS: LUNGS AND PLEURAL SPACES: Mild pulmonary hyperinflation. No pneumothorax. No effusion. No suspicious infiltrates. HEART: Unremarkable. Cardiac silhouette not enlarged. MEDIASTINUM: Central airways and mediastinal contour are unremarkable. BONES/JOINTS: Unremarkable. SOFT TISSUES: Unremarkable. RAD/Chest 1 View (Portable) IMPRESSION: No acute findings in the chest and unchanged when compared to 11/23/2018. Electronically Signed: Jermaine Leiva MD at 9:44 EDT ,
[2022-11-27 09:31] LABS: Anion Gap 7 (5-15); BUN 11 mg/dL (7-18); BUN/Creat Ratio 20.1 RATIO (10-20); Calcium,Total 8.8 mg/dL (8.5-10.1); Chloride 105 mmol/L (98-107); Creatinine, Serum 0.55 mg/dL (0.55-1.02); EST Glomerular Filtration Rate 119 mL/min (>60); Est Glom Filt Rate - Afr Amer 144 mL/min (>60); Estimated Creatinine Clearance 97.84 ml/min; Glucose 115 mg/dL (74-106); Potassium 4.1 mmol/L (3.5-5.1); Sodium Level 140 mmol/L (136-145); Troponin-I HS (w/2H Reflex) 6 pg/mL (3.0-54.0)
--- NOTE | 2022-11-27 09:42 | ED.VIS.DYS ---
HPI History of Present Illness Chief Complaint: Shortness of Breath Informant: patient Onset/Context/Timing Onset: Today Context: sudden Timing: Continuous Quality: Positive for Dyspnea on exertion Worsened by: Exertion Relieved by: Nothing Associated Symptoms cough, rhinorrhea, ear pain, sore throat, subjective, chills and yellow sputum; Negative for fever or sweats Chest Pain: Positive for None Narrative Narrative: Patient presents with shortness of breath that began today. Patient states it is gradually gotten worse since this morning. Patient states her breathing is worse with any activity. Patient states nothing seems to help with it. Patient admits to a cough with some yellow sputum. Patient admits to some subjective chills but denies any fevers. Patient also admits to sore throat, rhinorrhea, and ear pain. Patient denies any chest pain. Patient denies any nausea or vomiting. Patient does admit to a mild headache. PE Risk Factors: Negative for Cancer, OCP + Smoking + > 35, Prior DVT or PE, Recent immobilization, Recent surgery or Recent travel [facility] Medical History (Updated 11/27/22 @ 12:[address] Sy Stewart, ) Bipolar disease, chronic COPD (chronic obstructive pulmonary disease) Essential (primary) hypertension Schizophrenia Tobacco dependence Home Medications Quetiapine Fumarate [Seroquel Xr] 600 mg PO QHS SLEEP 03/17/15 [History Last Taken Unknown] bupropion HCl 150 mg 24 hr tablet, extended release 150 mg PO DAILY DEPRESSION 03/17/15 [History Last Taken Unknown] escitalopram oxalate 10 mg tablet 20 mg PO DAILY DEPRESSION 03/17/15 [History Last Taken Unknown] gabapentin 300 mg capsule 300 mg PO TID PAIN 03/17/15 [History Last Taken Unknown] lamotrigine 100 mg tablet 100 mg PO BID DEPRESSION 03/17/15 [History Last Taken 12/19/18 04:30] triazolam 0.25 mg tablet 0.25 mg ORAL QHS PRN PRN Insomnia 03/17/15 [History Last Taken Unknown] benztropine 2 mg tablet 2 mg PO QHS TREMORS 06/30/15 [History Last Taken Unknown] omeprazole 20 mg capsule,delayed release 20 mg PO BID GERD 03/04/16 [History Last Taken Unknown] albuterol sulfate 2.5 mg/3 mL (0.083 %) solution for nebulization 2.5 mg inhalation Q4H PRN PRN Wheezing 11/16/16 [History Last Taken 12/19/18 04:30] fluticasone propionate 110 mcg/actuation HFA aerosol inhaler (Flovent HFA) 1 puff inhalation BID COPD 11/16/16 [History Last Taken 11/18/16 07:16] acetaminophen 500 mg tablet 1,000 mg PO Q6 12/21/18 [Rx Last Taken Unknown] ibuprofen 600 mg tablet 600 mg PO TID PRN Pain 12/21/18 [Rx Last Taken Unknown] insulin lispro 100 unit/mL subcutaneous pen (Humalog KwikPen (U-100) Insulin) 0 unit (0 mL) subcut Q4H PRN PRN BG >/= 180, SEE PROTOCOL 12/21/18 [Rx Last Taken Unknown] magnesium citrate 300 ml PO X1 ##1 08/29/20 [Rx Last Taken Unknown] albuterol sulfate 90 mcg/actuation aerosol inhaler (Ventolin HFA) 2 puff inhalation Q4H PRN PRN Wheezing ##1 11/27/22 [Rx Last Taken Unknown] nirmatrelvir 300 mg (150 mg x2)-ritonavir 100 mg tablet,dose pack(EUA) (Paxlovid) See Rx Instructions PO .COMPLEX #30 tabs 11/27/22 [Rx Last Taken Unknown] oseltamivir 75 mg capsule 75 mg PO BID #10 CAPSULES 11/27/22 [Rx Last Taken Unknown] Allergy/AdvReac Type Severity Reaction Status Date / Time doxycycline Allergy Hives Verified 11/23/18 10:36 erythromycin base Allergy Hives Verified 11/23/18 10:36 meperidine HCl [From Demerol] Allergy Hives Verified 11/23/18 10:36 morphine Allergy Hives Verified 11/23/18 10:36 prednisone Allergy Hives Verified 11/23/18 10:36 trazodone HCl [From Desyrel] Allergy Hives Verified 11/23/18 10:36 Surgical History (Updated 11/27/22 @ 09:[address] Sy Stewart DO) History of hysterectomy Social History Smoking Status: Current every day smoker tobacco type: cigarettes ROS ROS ED Constitutional Constitutional ED: Reports chills; Denies fever(s) Eyes Eyes: Reports blurry vision; Denies diplopia ENT ENT ED: Denies rhinorrhea or sore throat Cardiovascular Cardiovascular: Denies chest pain or palpitations Respiratory/Chest Respiratory/Chest: Reports cough and dyspnea Gastrointestinal Gastrointestinal: Denies nausea or vomiting Genitourinary Genitourinary ED: Denies dysuria or hematuria Musculoskeletal Musculoskeletal: Denies back pain or neck pain Integumentary Denies abscess or rash Neurologic Neurologic: Reports headache(s); Denies weakness Allergic/Immunologic Allergic/Immunologic ED: Denies mouth swelling or urticaria EXAM Physical Exam Const Vital Signs: 11/27/22 08:54 11/27/22 08:58 11/27/22 09:02 Temperature 97.5 F L 97.5 F L Temperature Source Oral Oral Pulse Rate 89 89 Respiratory Rate 16 16 Respiratory Effort Normal Non-Labored Respiratory Depth Normal Respiratory Pattern Normal Blood Pressure 117/84 H 117/84 H Blood Pressure Mean 95 95 Pulse Ox 95 94 Oxygen Delivery Method Room Air Room Air Room Air 11/27/22 09:06 11/27/22 09:59 Temperature Temperature Source Pulse Rate 88 Respiratory Rate 22 H Respiratory Effort Respiratory Depth Respiratory Pattern Tachypnea Blood Pressure Blood Pressure Mean Pulse Ox Oxygen Delivery Method Room Air Positive well nourished and well developed General Appearance ED: well developed HEENT Reports moist mucous membranes Neck supple and no JVD Resp normal respiratory effort Auscultation: wheezes throughout Cardio regular rate, regular rhythm and no murmurs GI normal to inspection, nondistended, normoactive bowel sounds and non-tender Palpation: soft Extremity normal to inspection General Extremety ED: Negative for edema or tenderness General Extremity: Negative for edema Neuro oriented x3, CN's II-XII intact bilaterally and no sensory deficits noted Sensorium / Orientation: alert Motor Exam: strength 5/5 throughout Psych mental status grossly normal Skin no rashes or lesions noted MDM MDM MDM Narrative Medical decision making narrative: Differential diagnosis includes COPD exacerbation, asthma exacerbation, pneumonia, cardiac dysrhythmia, cardiac ischemia, and congestive heart failure. EKG will be obtained to assess for cardiac dysrhythmia and cardiac ischemia. CBC will be obtained to assess for leukocytosis and anemia. Basic metabolic profile will be obtained to assess for electrolyte abnormality and renal function. High-sensitivity troponin will be obtained to assess for cardiac ischemia. Chest x-ray will be obtained to assess for pneumonia and pneumothorax. Lab Data Attestation: I reviewed the patient's lab results. Lab results narrative: CBC was reviewed and was essentially within normal limits. Basic metabolic profile was reviewed and was essentially within normal limits. High-sensitivity troponin was reviewed and was normal. 2-hour repeat high-sensitivity troponin was also reviewed and was also normal. COVID-19 rapid antigen was reviewed and was positive. Influenza A and influenza B antigens were reviewed and was positive for influenza B. Labs: Laboratory Results - last 24 hr 11/27/22 11/27/22 11/27/22 09:09 09:09 11:18 WBC 3.4 L RBC 4.81 Hgb 14.0 Hct 43.0 MCV 89.4 MCH 29.1 MCHC 32.6 RDW Std Deviation 44.3 H RDW Coeff of Loretta 13.4 Plt Count 169 MPV 10.1 Immature Gran % (Auto) 0.300 Neut % (Auto) 32.1 L Lymph % (Auto) 50.1 H Frederick % (Auto) 14.2 H Eos % (Auto) 3.0 Baso % (Auto) 0.3 Absolute Neuts (auto) 1.1 L Absolute Lymphs (auto) 1.69 Nucleated RBC % 0 Sodium 140 Potassium 4.1 Chloride 105 Carbon Dioxide 28.0 Anion Gap 7 BUN 11 Creatinine 0.55 Estim Creat Clear Calc 97.84 Est GFR (MDRD) Af Amer 144 Est GFR (MDRD) Non-Af 119 BUN/Creatinine Ratio 20.1 H Glucose 115 H Calcium 8.8 Troponin I High Sens 6 6 Radiography Diagnostic Testing: Clinical Impression(s) from Imaging Studies Chest X-Ray 11/27/22 09:20 IMPRESSION: No acute findings in the chest and unchanged when compared to 11/23/2018. Electronically Signed: Jermaine Leiva MD at 9:44 EDT , EKG Initial EKG: Attestation: I personally reviewed and interpreted this EKG as follows: Interpretation: Sinus Rhythm (91) and No Acute Injury Pattern Comments: EKG was obtained. On my independent interpretation, it showed a normal sinus rhythm with a rate of 91. ME interval, QRS interval, and QTc intervals were all normal. Rudyard was normal. There are no acute ST or T wave changes. Prior EKG tracings: available for review Prior: Unchanged (12/17/2014) Treatment and Re-Evaluation :: Smoking cessation was discussed. Patient was given a DuoNeb aerosol here. Patient states she is out of her albuterol inhaler. Patient was given a prescription for an albuterol inhaler. Patient was also given a prescription for Paxlovid and Tamiflu. Patient was instructed to follow-up with her primary care physician in 5 to 7 days. Patient understood and was agreeable with the plan. All questions were answered. Discharge Plan Triage Chief Complaint: Shortness of Breath ED Provider: Sy Stewart Dx/Rx/DC Orders Clinical Impression: COVID-19, COPD (chronic obstructive pulmonary disease), Influenza B Instructions: Coronavirus Disease 2019 (COVID-19): Caring for Yourself or Others, ED Influenza (Adult) Prescriptions: New Paxlovid (EUA) 300 mg (150 mg x 2)-100 mg tablets,dose pack See Rx Instructions .ROUTE .COMPLEX Qty: 30 0RF Rx Instructions: take TWO 150 mg tablets of nirmatrelvir with ONE 100 mg tablet of ritonavir twice daily for 5 days oseltamivir [oseltamivir] 75 mg capsule 75 mg PO BID Qty: 10 0RF albuterol sulfate [Ventolin HFA] 90 mcg/actuation HFA aerosol inhaler 2 puff inhalation Q4H PRN PRN (Reason: Wheezing) Qty: 1 0RF No Action triazolam 0.25 MG tablet 0.25 mg ORAL QHS PRN PRN (Reason: Insomnia) gabapentin 300 MG capsule 300 mg PO TID Label Comments: lamotrigine 100 MG tablet 100 mg PO BID escitalopram oxalate 10 MG tablet 20 mg PO DAILY bupropion HCl 150 MG tablet extended release 24 hr 150 mg PO DAILY Quetiapine Fumarate [Seroquel Xr] 300 MG Tab.Sr.24h 600 mg PO QHS Label Comments: DEPRESSION benztropine 2 MG tablet 2 mg PO QHS omeprazole 20 MG capsule 20 mg PO BID Label Comments: REFLUX albuterol sulfate 2.5 MG/3 ML solution for nebulization 2.5 mg inhalation Q4H PRN PRN (Reason: Wheezing) fluticasone propionate [Flovent HFA] 1 INHALER inhaler 1 puff inhalation BID acetaminophen 500 MG tablet 1,000 mg PO Q6 0RF ibuprofen 600 MG tablet 600 mg PO TID PRN (Reason: Pain) 0RF insulin lispro [Humalog KwikPen Insulin] 100 UNIT/ML insulin pen 0 unit subcut Q4H PRN PRN (Reason: BG >/= 180, SEE PROTOCOL) 0RF magnesium citrate 300 ML solution 300 ml PO X1 Qty: 1 0RF Rx Instructions: Primary Care Provider: Pancho Aguilar Referrals: Pancho Aguilar MD [Primary Care Provider] -
[2022-11-27] MEDS: Ipratropium/Albuterol Sulfate 3 ML AMPUL.NEB INHALATION (09:58)
[2022-11-27 09:59] VITALS: PULSE 88; RESP 22
[2022-11-27 11:11] LABS: Reflex Troponin-HS? (from REC) Y
[2022-11-27 11:41] LABS: Troponin-I HS 6 pg/mL (3.0-54.0)
[2022-11-27 12:47] VITALS: BP 139/88; PULSE 72; RESP 16; O2SAT 95
== END 2022-11-27 12:48 | disposition home or self-care (01) ==
PROVIDERS: Emergency Provider Emergency Medicine; PCP Family Medicine; Visit Provider Emergency Medicine
DX: U07.1 COVID-19 (principal); J44.9 Chronic obstructive pulmonary disease, unspecified; F17.210 Nicotine dependence, cigarettes, uncomplicated; H92.09 Otalgia, unspecified ear; I10 Essential (primary) hypertension; J10.1 Influenza due to other identified influenza virus with other respiratory manifestations
CPT/HCPCS: 71045; 80048; 84484; 85025; 87428; 93005; 94640; 99285

== ENCOUNTER 2025-04-28 20:53 | Emergency (ER) | payer MEDICARE, SELFPAY ==
--- NOTE | 2025-04-28 12:09 | RAD_ITS ---
PROCEDURE: CHEST 1 VIEW (PORTABLE) 04/28/2025 REASON FOR EXAM: CHEST PAIN TECHNIQUE: Frontal view of the chest. COMPARISON: 11/27/2022 FINDINGS: Lungs/Pleura: Clear. No pneumothorax or pleural effusion. Heart/Mediastinum: Normal in size. No vascular congestion. Bones/Soft tissues: Mild degenerative changes of the spine. Right shoulder arthroplasty hardware. RAD/Chest 1 View (Portable) IMPRESSION: No acute cardiopulmonary disease. Reading Location: [id number]
[2025-04-28 20:54] VITALS: BP 100/53; PULSE 102; RESP 25; TEMP 36.8; O2SAT 97; BMI 18.2
[2025-04-28 21:17] LABS: Hematocrit 40.4 % (37-47); Hemoglobin 14.1 g/dL (12.0-15.0); Immature Granulocytes Count 0.040 X10^3/uL (0.0-0.0); Mean Corp Hgb Conc 34.9 g/dL (32-36); Mean Corpuscular Volume 87.8 fL (81-99); Mean Platelet Vol. 9.3 fl (6.2-12.0); NRBC Flagged by Analyzer 0 % (0-5); Platelet Count 343 K/mm3 (150-450); RBC Distribution Width CV 14.4 % (11.6-14.6); RBC Distribution Width SD 46.3 fl (35.1-43.9); Red Blood Count 4.60 M/mm3 (4.2-5.4); White Blood Count 9.9 K/mm3 (4.4-11.0)
[2025-04-28 21:43] LABS: Anion Gap 12 (5-15); BUN 12 mg/dL (4-19); BUN/Creat Ratio 15.8 RATIO (10-20); Calcium,Total 10.3 mg/dL (7.6-11.0); Carbon Dioxide 27.6 mmol/L (21.0-32.0); Chloride 100 mmol/L (98-108); Estimated Creatinine Clearance 60.32 ml/min (50-250); Glucose 131 mg/dL (70-99); Potassium 3.7 mmol/L (3.3-5.1); Troponin T High Sensitivity 9 ng/L (<=14)
[2025-04-28 21:53] VITALS: BP 103/74; PULSE 90; RESP 19; O2SAT 99
--- OUTSIDE RECORDS SUMMARY | 2025-04-28 21:54 | XMS RPT_ITS | CCD ---
Author Organization [facility] Care Team Providers Care Evaluation Advisor Name Role Phone ALISSA POWERS Unavailable Unavailable TERESA AGUILAR Unavailable Unavailable TERESA AGUILAR Unavailable Teresa Li MD Primary Care Provider LAUREN BRAR, DR MOORE Primary Care Physician Teresa Aguilar MD Primary Care Provider Teresa Aguilar MD Primary Care Provider Teresa Aguilar MD Primary Care Provider Teresa Aguilar Primary Care Unavailable Sy Stewart Attending Unavailable Tiki Loo MD Unavailable [phone] CAROLYN JAMISON Referring Unavailab TERESA Melendez Primary Care Unavailable TERESA AGUILAR Primary Care Unavailable SHOULDERS, CANDE Referring Unavailable Stella Enrique RN Unavailable Unavailable Teresa Aguilar MD Primary Care Provider TERESA AGUILAR Primary Care Unavailable TERESA AGUILAR Primary Care Unavailable TERESA AGUILAR Primary Care Unavailable BRENT, KIMBERLEE Referring Unavailable TERESA AGUILAR Primary Care Unavailable TERESA AGUILAR Primary Care Unavailable BRENT, KIMBERLEE Referring Unavailable TERESA AGUILAR Primary Care Unavailable NILESH BRAR, DR MARYJANE Zimmer Attending Unavailcharisma AGUILAR MD, DR MOORE Primary Care Unavailab avinash AGUILAR MD, DR MOORE Primary Care Unavailab AYESHA Keyes MD Attending Unavailable JOE CLARK MD Attending Unavailable LAUREN BRAR, DR MOORE Primary Care Unavailab JOCELIN Moore DO Attending Unavailable LAUREN BRAR, DR MOORE Primary Care Unavailab avinash Ferrer TEACHER TUTOR.CLINICAL WRITER, Nga Unavailable LAUREN BRAR, DR MOORE Primary Care Unavailab avinash CLARK MD, JOE Attending Unavailable AYESHA KENNEDY MD Attending Unavailable LAUREN BRAR, DR MOORE Primary Care Unavailab avinash Mirza TEACHER TUTOR.CLINICAL WRITER, Josh Unavailable [place] TEACHER TUTOR.CLINICAL WRITER, Nga Unavailable Unavail able [place] TEACHER TUTOR.CLINICAL WRITER, Nga Unavailable TANNNGA FELICIANO Attending Unavailabl e ELDERBROCK, TERESA D Primary Care Unavailable KILEY HARRIS Referring Unavailable ELDERBROCK, TERESA D Primary Care Unavailable TANNHONGA Will Attending Unavailabl e ELDERBROCK, TERESA D Primary Care Unavailable CORA GIL Attending Unavailable TANNNGA FELICIANOE Referring Unavailabl e ELDERBROCK, TERESA D Primary Care Unavailable ELDERBROCK, TERESA D Referring Unavailable ELDERBROCK, TERESA D Primary Care Unavailable CORA GIL Referring Unavailable ELDERBROCK, TERESA D Primary Care Unavailable TANNNGA FELICIANO Referring Unavailabl e ELDERBROCK, TERESA D Primary Care Unavailable EMELI SPIVEY Attending Unavailable ELDERBROCK, TERESA D Primary Care Unavailable ELDERBROCK, TERESA D Attending Unavailable ELDERBROCK, TERESA D Referring Unavailable ELDERBROCK, TERESA D Primary Care Unavailable CORA GIL Referring Unavailable ELDERBROCK, TERESA D Primary Care Unavailable MAIA BEASLEY Attending Unavailable ELDERBROCK, TERESA D Referring Unavailable ELDERBROCK, TERESA D Primary Care Unavailable NICOLÁS LOUIS Attending Unavailable ELDERBROCK, TERESA D Referring Unavailable ELDERBROCK, TERESA D Primary Care Unavailable AYSHA LLOYD Attending Unavailable ELDERBROCK, TERESA D Primary Care Unavailable ELDERBROCK, TERESA D Attending Unavailable ELDERBROCK, TERESA D Primary Care Unavailable ELDERBROCK, TERESA D Referring Unavailable ELDERBROCK, TERESA D Primary Care Unavailable Allergies Allergy Classification Reported Allergen(s) Allergy Type Date of Onset Reaction(s) Facility Corticosteroids (2 sources) predniSONE Drug Allergy 0 Rash [facility] Doxycycline (2 sources) Doxycycline Drug Allergy 0 Hives [facility] Macrolides (antibiotic) (2 sources) Erythromycin Drug Allergy 6 Rash [facility] Opioid Agonists (4 sources) Meperidine Drug Allergy 6 Rash, Swelling [facility] Serotonin Reuptake Inhibitors (SSRIs) (2 sources) traZODone Drug Allergy 6 [facility] Work Phone: (20 sources) Doxycycline; Translations: [doxycycline] Drug Allergy [address] [facility] Work Phone: (20 sources) Erythromycin; Translations: [erythromycin] Drug Allergy 6 [facility] Work Phone: (20 sources) Meperidine; Translations: [meperidine] Drug Allergy 8 [facility] Comment on above: rash over entire bod y (20 sources) Morphine; Translations: [morphine] Drug Allergy 6 [facility] Work Phone: (20 sources) predniSONE; Translations: [prednisone] Drug Allergy 0 [facility] (20 sources) traZODone; Translations: [TRAZODONE HCL] Drug Allergy 6 [facility] Work Phone: (11 sources) traZODone; Translations: [trazodone] Drug Allergy blotches over body [facility] (2 sources) Meperidine; Translations: [meperidine HCl] Drug Allergy 9 [facility] (1 source) Doxycycline Drug Allergy 9 [facility] (1 source) Erythromycin Drug Allergy 9 [facility] (1 source) Morphine Drug Allergy 9 [facility] (1 source) predniSONE Drug Allergy 9 [facility] (1 source) traZODone Drug Allergy 9 [facility] (20 sources) levoFLOXacin; Translations: [LEVOFLOXACIN] Drug Allergy 4 [facility] Medications Current Medications Medication Drug Class(es) Dates Sig (Normalized) Sig (Original) acetaminophen 500 mg oral tablet (1 source) Start: 12-21-2018 take 1000 mg by mouth every six hours Acetaminophen Active 1000 MG PO EVERY 6 HOURS December 21, 2018 12:00am acetaminophen 300 mg / butalbital 50 mg / caffeine 40 mg oral capsule (3 sources) Barbiturate, Central Nervous System Stimulant, Methylxanthine Start: 12-30-2023 take 1 capsule by mouth every four hours as needed for pain Fioricet oral capsule - use generic Fioricet tablet Dose = 1 cap(s), Oral, q4h, PRN Pain, # 10 cap(s), 0 Refill(s) Start Date: 12/30/23 Status: Ordered Quantity: 10.0 Unit: cap(s) Repeat number: 1 acetaminophen 325 mg / HYDROcodone bitartrate 5 mg oral tablet (12 sources) Opioid Agonist Start: 09-07-2024 End: 09-09-2024 take 1 tablet by mouth every six hours as needed for pain acetaminophen-hydr ocodone 325 mg-5 mg oral tablet Dose = 1 tab(s), Oral, q6h, PRN for pain, As needed for pain take with food, X 2 day(s), # 10 tab(s), 0 Refill(s), Vertebral compression fracture, 53.3 Start Date: 09/07/24 Stop Date: 09/09/24 Status: Ordered Quantity: 10.0 Unit: tab(s) Repeat number: 1 Indication: Collapsed vertebra, not elsewhere classified, site unspecified, initial encounter for fracture Start: 09-28-2023 End: 10-01-2023 take 1 tablet by mouth every six hours as needed for pain [place] 325- 5 mg oral tablet Dose = 1 tab(s), Oral, q6h, PRN as needed for pain, X 3 day(s), # 12 tab(s), 0 Refill(s), Tail bone pain, 52.3 Start Date: 09/28/23 Stop Date: 10/01/23 Status: Ordered Start: 05-05-2022 End: 05-07-2022 take 1 tablet by mouth every six hours [place] 325- 5 mg oral tablet Dose = 1 tab(s), Oral, q6h, # 8 tab(s), 0 Refill(s), Ankle sprain, 63.6 Start Date: 05/05/22 Stop Date: 05/07/22 Status: Ordered Quantity: 8.0 Unit: tab(s) Repeat number: 1 Indication: Sprain of unspecified ligament of unspecified ankle, initial encounter Y Result Comment: The validity of the calculated GFR GFRAA in patients over 70 years has not been determined. Clinical correlation is essential. Performed By: #### L 100.0100, L500.2500, L501.5425 #### [facility] [address] [place], [address] ECRCL 97.84 ml/min Normal [facility] Comment on above: Order Comment: 1 Y Performed By: #### L 100.0100, L500.2500, L501.5425 #### [facility] [address] [place], [address] EST GFR - AA 144 mL/min Normal >60 [facility] Comment on above: Order Comment: 1 Y Result Comment: Afri can Nigerien GFR Calc Performed By: #### L 100.0100, L500.2500, L501.5425 #### [facility] [address] [place], [address] GAP 7 Normal 5-15 [facility] Comment on above: Order Comment: 1 Y Performed By: #### L 100.0100, L500.2500, L501.5425 #### [facility] [address] [place], [address] GFR/1.73 sq M.predicted among non-blacks MDRD (S/P/Bld) [Vol rate/Area] 119 mL/min/{1.73_m2} Normal >60 [facility] Comment on above: Order Comment: 1 Y Result Comment: Non- GFR Calc Performed By: #### L 100.0100, L500.2500, L501.5425 #### [facility] [address] [place], [address] Glucose [Mass/Vol] 115 mg/dL High 74-106 [facility] Comment on above: Order Comment: 1 Y Result Comment: Fast ing Glucose result from 100 to 125 mg/dL suggests IMPAIRED HOMEOSTASIS per A.D.A. criteria. Performed By: #### L 100.0100, L500.2500, L501.5425 #### [facility] [address] [place], [address] Potassium [Moles/Vol] 4.1 mmol/L Normal 3.5-5.1 [facility] Comment on above: Order Comment: 1 Y Performed By: #### L 100.0100, L500.2500, L501.5425 #### [facility] [address] [place], [address] Sodium [Moles/Vol] 140 mmol/L Normal 136-145 [facility] Comment on above: Order Comment: 1 Y Performed By: #### L 100.0100, L500.2500, L501.5425 #### [facility] [address] [place], [address] Urea nitrogen [Mass/Vol] 11 mg/dL Normal 7-18 [facility] Comment on above: Order Comment: 1 Y Performed By: #### L 100.0100, L500.2500, L501.5425 #### [facility] [address] [place], [address] Basophil percentageOrdered B y: ED PROVIDER on 11-27-2022 Basophils/100 WBC (Bld) 0.3 % 0-1 [facility] Chloride [Moles/Vol] 105 mmol/L 98-107 [facility] Eosinophils/100 WBC (Bld) 3.0 % 0-5 [facility] Glucose [Mass/Vol] 115 mg/dL 74-106 [facility] Comment on above: Fasting Glucose resu lt from 100 to 125 mg/dL suggests IMPAIRED HOMEOSTASIS per A.D.A. criteria. Neutrophils (Bld) [#/Vol] 1.1 10*3/uL 2.0-7.7 [facility] Neutrophils/100 WBC (Bld) 32.1 % 47-70 [facility] Potassium [Moles/Vol] 4.1 mmol/L 3.5-5.1 [facility] Sodium [Moles/Vol] 140 mmol/L 136-145 [facility] WBC (Bld) [#/Vol] 3.4 10*3/uL 4.4-11.0 [facility] Blood erythrocytes count (nu mber/volume)Ordered By: ED PROVIDER on 11-27-2022 RBC (Bld) [#/Vol] 4.81 10*6/uL 4.2-5.4 [facility] Blood hemoglobin measurement (mass/volume)Ordered By: ED PROVIDER on 11-27-2022 Hemoglobin (Bld) [Mass/Vol] 14.0 g/dL 12.0-15.0 [facility] Blood lymphocytes/100 leukoc ytesOrdered By: ED PROVIDER on 11-27-2022 Lymphocytes/100 WBC (Bld) 50.1 % 19-41 [facility] Blood monocytes/100 leukocyt esOrdered By: ED PROVIDER on 11-27-2022 Monocytes/100 WBC (Bld) 14.2 % 0-10 [facility] Blood platelet mean volumeOr dered By: ED PROVIDER on 11-27-2022 Platelet mean volume (Bld) [Entitic vol] 10.1 fL 6.2-12.0 [facility] CBC W/Diff, Automatedon 11-11 Absolute Lymph 1.69 X10 3/uL Normal 0.83-4.51 [facility] Comment on above: Performed By: #### L 100.0100, L500.2500, L501.5425 #### [facility] [address] [place], [address] Absolute Neut 1.1 X10 3/uL Low 2.0-7.7 [facility] Comment on above: Performed By: #### L 100.0100, L500.2500, L501.5425 #### [facility] [address] [place], [address] Basophils/100 WBC (Bld) 0.3 % Normal 0-1 [facility] Comment on above: Performed By: #### L 100.0100, L500.2500, L501.5425 #### [facility] [address] [place], [address] Eosinophils/100 WBC (Bld) 3.0 % Normal 0-5 [facility] Comment on above: Performed By: #### L 100.0100, L500.2500, L501.5425 #### [facility] [address] [place], [address] Erythrocyte distribution width (RBC) [Ratio] 13.4 % Normal 11.6-14.6 [facility] Comment on above: Performed By: #### L 100.0100, L500.2500, L501.5425 #### [facility] [address] [place], [address] Hematocrit (Bld) [Volume fraction] 43.0 % Normal 37-47 [facility] Comment on above: Performed By: #### L 100.0100, L500.2500, L501.5425 #### [facility] [address] [place], [address] Hemoglobin (Bld) [Mass/Vol] 14.0 g/dL Normal 12.0-15.0 [facility] Comment on above: Performed By: #### L 100.0100, L500.2500, L501.5425 #### [facility] [address] [place], [address] IG% 0.300 Normal 0.0-0.9 [facility] Comment on above: Result Comment: IG% - Immature Granulocytes (promyelocytes, myelocytes and metamyelocytes) > 1% indicates that a LEFT SHIFT is Present. Performed By: #### L 100.0100, L500.2500, L501.5425 #### [facility] [address] [place], [address] Lymphocytes/100 WBC (Bld) 50.1 % High 19-41 [facility] Comment on above: Performed By: #### L 100.0100, L500.2500, L501.5425 #### [facility] [address] [place], [address] MCH (RBC) [Entitic mass] 29.1 pg Normal 27.0-32.0 [facility] Comment on above: Performed By: #### L 100.0100, L500.2500, L501.5425 #### [facility] [address] [place], [address] MCHC (RBC) [Mass/Vol] 32.6 g/dL Normal 32-36 [facility] Comment on above: Performed By: #### L 100.0100, L500.2500, L501.5425 #### [facility] [address] [place], [address] MCV (RBC) [Entitic vol] 89.4 fL Normal 81-99 [facility] Comment on above: Performed By: #### L 100.0100, L500.2500, L501.5425 #### [facility] [address] [place], [address] Monocytes/100 WBC (Bld) 14.2 % High 0-10 [facility] Comment on above: Performed By: #### L 100.0100, L500.2500, L501.5425 #### [facility] [address] [place], [address] Neutrophils/100 WBC (Bld) 32.1 % Low 47-70 [facility] Comment on above: Performed By: #### L 100.0100, L500.2500, L501.5425 #### [facility] [address] [place], [address] Nucleated RBC (Bld) [#/Vol] 0 10*3/uL Normal 0-5 [facility] Comment on above: Performed By: #### L 100.0100, L500.2500, L501.5425 #### [facility] [address] [place], [address] Platelet mean volume (Bld) [Entitic vol] 10.1 fL Normal 6.2-12.0 [facility] Comment on above: Performed By: #### L 100.0100, L500.2500, L501.5425 #### [facility] [address] [place], [address] Platelets (Bld) [#/Vol] 169 10*3/uL Normal 150-450 [facility] Comment on above: Performed By: #### L 100.0100, L500.2500, L501.5425 #### [facility] [address] [place], [address] RBC (Bld) [#/Vol] 4.81 10*6/uL Normal 4.2-5.4 [facility] Comment on above: Performed By: #### L 100.0100, L500.2500, L501.5425 #### [facility] [address] [place], [address] RDW SD 44.3 fl High 35.1-43.9 [facility] Comment on above: Performed By: #### L 100.0100, L500.2500, L501.5425 #### [facility] [address] [place], [address] WBC (Bld) [#/Vol] 3.4 10*3/uL Low 4.4-11.0 [facility] Comment on above: Performed By: #### L 100.0100, L500.2500, L501.5425 #### [facility] [address] [place], [address] Chest 1 View (Portable)on Chest 1 View (Portable) [facility] [address] [place] [address] Chest 1 View (Portable) MR#: [id number] Acct: [id number] Name: ALBANIA RAMSEY Rep #: [id number] : 1960 F 62 From: Jermaine Leiva MD PCP: Dr. Teresa Aguilar MD Status: REG ER Study: Chest 1 View (Portable) Date of Exam: 11/27/22 Exam# [id number] Ordering Dr: Valarie,Ed P. EXAM: XR CHEST, 1 VIEW CLINICAL INDICATION: Chest pain. TECHNIQUE: Frontal view of the chest. This report was created using [employer] report generation technology. COMPARISON: 11/23/2018. FINDINGS: LUNGS AND PLEURAL SPACES: Mild pulmonary hyperinflation. No pneumothorax. No effusion. No suspicious infiltrates. HEART: Unremarkable. Cardiac silhouette not enlarged. MEDIASTINUM: Central airways and mediastinal contour are unremarkable. BONES/JOINTS: Unremarkable. SOFT TISSUES: Unremarkable. RAD/Chest 1 View (Portable) IMPRESSION: No acute findings in the chest and unchanged when compared to 11/23/2018. Electronically Signed: Jermaine Leiva MD at 9:44 EDT , CC: Dr. Teresa Aguilar MD; ED PHYSICIAN PROVIDER Rubberizing Mechanic: Signed Normal [facility] Determination of erythrocyte mean corpuscular volume (MCV)Ordered By: ED PROVIDER on 11-27-2022 MCV (RBC) [Entitic vol] 89.4 fL 81-99 [facility] Emergency Department Summary on 11-27-2022 Emergency Department Summary [facility] Medical Records Department [address] [place] [address] Emergency Department Summary 11/27/22 MR#: [id number] Acct: [id number] Name: ALBANIA RAMSEY Rep #: [id number] : 1960 62 From: Sy Stewart DO PCP: Dr. Teresa Aguilar MD Status:DEP ER Location: ED HPI History of Present Illness Chief Complaint: Shortness of Breath Informant: patient Onset/Context/Timing Onset: Today Context: sudden Timing: Continuous Quality: Positive for Dyspnea on exertion Worsened by: Exertion Relieved by: Nothing Associated Symptoms cough, rhinorrhea, ear pain, sore throat, subjective, chills and yellow sputum; Negative for fever or sweats Chest Pain: Positive for None Narrative Narrative: Patient presents with shortness of breath that began today. Patient states it is gradually gotten worse since this morning. Patient states her breathing is worse with any activity. Patient states nothing seems to help with it. Patient admits to a cough with some yellow sputum. Patient admits to some subjective chills but denies any fevers. Patient also admits to sore throat, rhinorrhea, and ear pain. Patient denies any chest pain. Patient denies any nausea or vomiting. Patient does admit to a mild headache. PE Risk Factors: Negative for Cancer, OCP + Smoking + > 35, Prior DVT or PE, Recent immobilization, Recent surgery or Recent travel [facility] Medical History (Updated 11/27/22 @ 12:[address] Sy Stewart, ) Bipolar disease, chronic COPD (chronic obstructive pulmonary disease) Essential (primary) hypertension Schizophrenia Tobacco dependence Home Medications Quetiapine Fumarate [Seroquel Xr] 600 mg PO QHS SLEEP 03/17/15 [History Last Taken Unknown] bupropion HCl 150 mg 24 hr tablet, extended release 150 mg PO DAILY DEPRESSION 03/17/15 [History Last Taken Unknown] escitalopram oxalate 10 mg tablet 20 mg PO DAILY DEPRESSION 03/17/15 [History Last Taken Unknown] gabapentin 300 mg capsule 300 mg PO TID PAIN 03/17/15 [History Last Taken Unknown] lamotrigine 100 mg tablet 100 mg PO BID DEPRESSION 03/17/15 [History Last Taken 12/19/18 04:30] triazolam 0.25 mg tablet 0.25 mg ORAL QHS PRN PRN Insomnia 03/17/15 [History Last Taken Unknown] benztropine 2 mg tablet 2 mg PO QHS TREMORS 06/30/15 [History Last Taken Unknown] omeprazole 20 mg capsule,delayed release 20 mg PO BID GERD 03/04/16 [History Last Taken Unknown] albuterol sulfate 2.5 mg/3 mL (0.083 %) solution for nebulization 2.5 mg inhalation Q4H PRN PRN Wheezing 11/16/16 [History Last Taken 12/19/18 04:30] fluticasone propionate 110 mcg/actuation HFA aerosol inhaler (Flovent HFA) 1 puff inhalation BID COPD 11/16/16 [History Last Taken 11/18/16 07:16] acetaminophen 500 mg tablet 1,000 mg PO Q6 12/21/18 [Rx Last Taken Unknown] ibuprofen 600 mg tablet 600 mg PO TID PRN Pain 12/21/18 [Rx Last Taken Unknown] insulin lispro 100 unit/mL subcutaneous pen (Humalog KwikPen (U-100) Insulin) 0 unit (0 mL) subcut Q4H PRN PRN BG >/= 180, SEE PROTOCOL 12/21/18 [Rx Last Taken Unknown] magnesium citrate 300 ml PO X1 ##1 08/29/20 [Rx Last Taken Unknown] albuterol sulfate 90 mcg/actuation aerosol inhaler (Ventolin HFA) 2 puff inhalation Q4H PRN PRN Wheezing ##1 11/27/22 [Rx Last Taken Unknown] nirmatrelvir 300 mg (150 mg x2)-ritonavir 100 mg tablet,dose pack(EUA) (Paxlovid) See Rx Instructions PO .COMPLEX #30 tabs 11/27/22 [Rx Last Taken Unknown] oseltamivir 75 mg capsule 75 mg PO BID #10 CAPSULES 11/27/22 [Rx Last Taken Unknown] Allergy/AdvReac Type Severity Reaction Status Date / Time doxycycline Allergy Hives Verified 11/23/18 10:36 erythromycin base Allergy Hives Verified 11/23/18 10:36 meperidine HCl [From Demerol] Allergy Hives Verified 11/23/18 10:36 morphine Allergy Hives Verified 11/23/18 10:36 prednisone Allergy Hives Verified 11/23/18 10:36 trazodone HCl [From Desyrel] Allergy Hives Verified 11/23/18 10:36 Surgical History (Updated 11/27/22 @ 09:[address] Sy Stewart DO) History of hysterectomy Social History Smoking Status: Current every day smoker tobacco type: cigarettes ROS ROS ED Constitutional Constitutional ED: Reports chills; Denies fever(s) Eyes Eyes: Reports blurry vision; Denies diplopia ENT ENT ED: Denies rhinorrhea or sore throat Cardiovascular Cardiovascular: Denies chest pain or palpitations Respiratory/Chest Respiratory/Chest: Reports cough and dyspnea Gastrointestinal Gastrointestinal: Denies nausea or vomiting Genitourinary Genitourinary ED: Denies dysuria or hematuria Musculoskeletal Musculoskeletal: Denies back pain or neck pain Integumentary Denies abscess or rash Neurologic Neurologic: Reports headache(s); Denies weakness Allergic/Immunologic Allergic/Immunologic ED: Denies mouth swelling or urticar (more content not included)... Normal [facility] Hematocrit Auto (Bld) [Volum e fraction]Ordered By: ED PROVIDER on 11-27-2022 Hematocrit (Bld) [Volume fraction] 43.0 % 37-47 [facility] Influenza virus A and B and SARS-CoV-2 (COVID-19) Ag panel - Upper respiratory specimOrdered By: Dr. Stewart on 11-27-2022 SARS-CoV-2 & FLU Antigen (Rapid) SARS-CoV-2 (COVID 19) [facility] SARS-CoV-2 & FLU Antigen (Rapid) Influenzae B [facility] L501.4020on 11-27-2022 TROPONIN-I HS 6 pg/mL Normal 3.0-54.0 [facility] Comment on above: Result Comment: Plea se Note: New Test Units and Gender Specific Reference Ranges. For more information see Policy Stat Procedure [place] High Sensitivity Troponin (TNIH) and attachments. Performed By: #### L 501.4020 #### [facility] [address] [place], [address] L558.5431on 11-27-2022 TROPONIN-I HS 6 pg/mL Normal 3.0-54.0 [facility] Comment on above: Order Comment: 1 Y Result Comment: Plea se Note: New Test Units and Gender Specific Reference Ranges. For more information see Policy Stat Procedure [place] High Sensitivity Troponin (TNIH) and attachments. Performed By: #### L 100.0100, L500.2500, L501.5425 #### [facility] [address] [place], [place], [id number] Laboratory - Chemistry and C hemistry - challengeOrdered By: ED PROVIDER on 11-27-2022 CO2 [Moles/Vol] 28.0 mmol/L 21.0-32.0 [facility] Urea nitrogen/Creatinine [Mass ratio] 20.1 mg/mg 10-20 [facility] - Hematology and Cell countsOrdered By: ED PROVIDER on 11-27-2022 Erythrocyte distribution width (RBC) [Entitic vol] 44.3 fL 35.1-43.9 [facility] Erythrocyte distribution width (RBC) [Ratio] 13.4 % 11.6-14.6 [facility] Immature granulocytes/100 WBC (Bld) 0.300 % 0.0-0.9 [facility] Comment on above: IG% - Immature Granu locytes (promyelocytes, myelocytes and metamyelocytes) > 1% indicates that a LEFT SHIFT is Present. MCH (RBC) [Entitic mass] 29.1 pg 27.0-32.0 [facility] Nucleated RBC/100 WBC (Bld) [Ratio] 0 % 0-5 [facility] M101.0111on 11-27-2022 M101.0111 *Negative results fr om patients with symptom onset beyond five days should be treated as presumptive and confirmed by a molecular assay if clinically necessary. Negative results should not be used as the sole basis for treatment or for patient management. FLUABV+SARS-CoV2 Ag Pnl Up resp IA.rapid *Positive results do not differentiate between SARS-CoV and SARS-CoV-2. FLUABV+SARS-CoV2 Ag Pnl Up resp IA.rapid Negative Influenza results should be confirmed with FLU PANEL MOLECULAR if indicated. FLUABV+SARS-CoV2 Ag Pnl Up resp IA.rapid * This test has not been FDA cleared or approved; the test has been authorized by FDA under an Emergency Use Authorization (EAU) for use by laboratories certified under CLIA that meet the requirements to perform moderate, high, or waived complexity tests. FLUABV+SARS-CoV2 Ag Pnl Up resp IA.rapid Normal Reference Range: Negative Tigist, VENECIA method SARS-CoV-2 (COVID 19) A *POSITIVE* A Influenza Ag, Direct A POSITIVE for the presence of INFLUENZA B Antigen onlyA SARS-CoV-2 (COVID 19) INFLUENZAE B Normal [facility] Comment on above: Performed By: #### M [id number] #### [facility] [address] [place], [address] MCHC Auto (RBC) [Mass/Vol]Or dered By: ED PROVIDER on 11-27-2022 MCHC (RBC) [Mass/Vol] 32.6 g/dL 32-36 [facility] No Panel InformationOrdered By: ED PROVIDER on 11-27-2022 Troponin I High Sensitivity 6 pg/mL 3.0-54.0 [facility] Comment on above: Please Note: New Nella t Units and Gender Specific Reference Ranges. For more information see Policy Stat Procedure [place] High Sensitivity Troponin (TNIH) and attachments. Estimated Creatinine Clearance Calc 97.84 ml/min [facility] Estimated GFR (MDRD) Amer 144 mL/min >60 [facility] Comment on above: GFR Calc Estimated GFR (MDRD) Non-Af Amer 119 mL/min >60 [facility] Comment on above: Non- GFR Calc Platelets bldOrdered By: ED PROVIDER on 11-27-2022 Platelets (Bld) [#/Vol] 169 10*3/uL 150-450 [facility] Serum or plasma calcium hayde urement (mass/volume)Ordered By: ED PROVIDER on 11-27-2022 Calcium [Mass/Vol] 8.8 mg/dL 8.5-10.1 [facility] Serum or plasma creatinine m easurement (mass/volume)Ordered By: ED PROVIDER on 11-27-2022 Creatinine [Mass/Vol] 0.55 mg/dL 0.55-1.02 [facility] Comment on above: The validity of the calculated GFR & GFRAA in patients over 70 years has not been determined. Clinical correlation is essential. Serum or plasma urea nitroge n measurement (mass/volume)Ordered By: ED PROVIDER on 11-27-2022 Urea nitrogen [Mass/Vol] 11 mg/dL 7-18 [facility] Thin prep Papanicolaou smear with manual screeningOrdered By: ED PROVIDER on 11-27-2022 Thin prep Papanicolaou smear with manual screening 7 5-15 [facility] HIPOLITO SCREENINGon 05-20-2022 [facility] HEP C AB IA W/CONF SCRNon HCV Ab Ql (S) Negative Negative [facility] HIV 1+2 Ab IA Qlon HIV 1 and 2 Ab IA.rapid Nom [facility] HIV 1+2 Ab+HIV1 p24 Ag IA Ql Non-Reactive Nonreactive [facility] HIV Interpretation [facility] VITAMIN D 25 HYDROXYon 05-12 25-hydroxyvitamin D3 [Mass/Vol] 16.5 ng/mL Low 31.0 - 80.0 ng/mL [facility] CBC W Auto Differential pane l (Bld)on 05-11-2022 Abs Immature Gran <0.10 k/uL [facility] Basophils (Bld) [#/Vol] 0.06 10*3/uL <0.11 k/uL [facility] Basophils/100 WBC (Bld) 0.9 % [facility] Differential cell count method Nom (Bld) Auto [facility] Eosinophils (Bld) [#/Vol] 0.46 10*3/uL High <0.46 k/uL [facility] Eosinophils/100 WBC (Bld) 6.8 % [facility] Erythrocyte distribution width (RBC) [Ratio] 13.9 % 11.5 - 15.0 % [facility] Hematocrit (Bld) [Volume fraction] 44.8 % 36.0 - 46.0 % [facility] Hemoglobin (Bld) [Mass/Vol] 14.5 g/dL 11.5 - 15.5 g/dL [facility] Immature Gran % 0.1 % [facility] Lymphocytes (Bld) [#/Vol] 3.04 10*3/uL 1.00 - 4.00 k/uL [facility] Lymphocytes/100 WBC (Bld) 45.1 % [facility] MCH (RBC) [Entitic mass] 28.8 pg 26.0 - 34.0 pg [facility] MCHC (RBC) [Mass/Vol] 32.4 g/dL 30.5 - 36.0 g/dL [facility] MCV (RBC) [Entitic vol] 89.1 fL 80.0 - 100.0 fL [facility] Monocytes (Bld) [#/Vol] 0.76 10*3/uL <0.87 k/uL [facility] Monocytes/100 WBC (Bld) 11.3 % [facility] Neutrophils (Bld) [#/Vol] 2.41 10*3/uL 1.45 - 7.50 k/uL [facility] Neutrophils/100 WBC (Bld) 35.8 % [facility] Nucleated RBC (Bld) [#/Vol] <0.01 k/uL [facility] Nucleated RBC/100 WBC (Bld) [Ratio] 0.0 /100 WBC [facility] Platelet mean volume (Bld) [Entitic vol] 9.9 fL 9.0 - 12.7 fL [facility] Platelets (Bld) [#/Vol] 289 10*3/uL 150 - 400 k/uL [facility] RBC (Bld) [#/Vol] 5.03 10*6/uL 3.90 - 5.2 0 m/uL [facility] WBC (Bld) [#/Vol] 6.74 10*3/uL 3.70 - 11. 00 k/uL [facility] Comprehensive metabolic 2000 panelon 05-11-2022 Albumin [Mass/Vol] 4.7 g/dL 3.9 - 4.9 g/dL [facility] ALP [Catalytic activity/Vol] 84 U/L 34 - 123 U/L [facility] ALT [Catalytic activity/Vol] 9 U/L 7 - 38 U/L [facility] Anion gap [Moles/Vol] 10 mmol/L 9 - 18 mmol/L [facility] AST [Catalytic activity/Vol] 18 U/L 13 - 35 U/L [facility] Bilirubin [Mass/Vol] 0.2 mg/dL 0.2 - 1 .3 mg/dL [facility] Calcium [Mass/Vol] 9.8 mg/dL 8.5 - 10. 2 mg/dL [facility] Chloride [Moles/Vol] 102 mmol/L 97 - 10 5 mmol/L [facility] CO2 [Moles/Vol] 26 mmol/L 22 - 30 mmol/L [facility] Creatinine [Mass/Vol] 0.57 mg/dL Low 0.58 - 0.96 mg/dL [facility] Estimated Glomerular Filtration Rate 103 mL/min/1.73m >=60 mL/min/1.73m [facility] Glucose [Mass/Vol] 78 mg/dL 74 - 99 mg/dL [facility] Potassium [Moles/Vol] 4.4 mmol/L 3.7 - 5.1 mmol/L [facility] Protein [Mass/Vol] 7.2 g/dL 6.3 - 8.0 g/dL [facility] Sodium [Moles/Vol] 138 mmol/L 136 - 144 mmol/L [facility] Urea nitrogen [Mass/Vol] 9 mg/dL 7 - 21 mg/dL [facility] TSH BLDon 05-11-2022 TSH Qn 1.560 m[IU]/L 0.270 - 4.200 mIU/L [facility] VITAMIN B12 BLOODon 05-11-20 Cobalamin (Vitamin B12) [Mass/Vol] 457 pg/mL 232 - 1,245 pg/mL [facility] XR SHOULDER GENERAL 3V OR MO RE AP/TRUE AP/OTHER RIGHTon 01-08-2022 [facility] XR Chest PA and Lateralon IMPRESSION: No acute radiographic abnormality. Rubberizing Mechanic: PSCB Transcribe Date/Time: Oct 02 2020 10:56A Dictated by : TIKI ROGERS MD This examination was interpreted and the report reviewed and electronically signed by: TIKI ROGERS MD on Oct 02 2020 10:57AM [facility] DIVISION OF RADIOLOGY * * *Final Report* * * DATE OF EXAM: Oct 02 2020 10:51AM WOX 5291 - XR CHEST 2V FRONTAL/LAT / PROCEDURE REASON: Cough * * * * Physician Interpretation * * * * EXAMINATION: CHEST RADIOGRAPH (2 VIEW FRONTAL & LATERAL) CLINICAL HISTORY: Cough MQ: XC2_6 EXAM DATE/TIME: 10/02/2020 10:51 AM COMPARISON: 04/30/2016 RESULT: Lines, tubes, and devices: None. Lungs and pleura: No focal consolidation, pleural effusion or pneumothorax. Cardiomediastinal silhouette: Within normal limits. Bones and soft tissues: No acute osseous abnormality. DIVISION OF RADIOLOGY Provider, [facility] - 10/02/2020 * * *Final Report* * * DATE OF EXAM: Oct 02 2020 10:51AM WOX 5291 - XR CHEST 2V FRONTAL/LAT / PROCEDURE REASON: Cough * * * * Physician Interpretation * * * * EXAMINATION: CHEST RADIOGRAPH (2 VIEW FRONTAL & LATERAL) CLINICAL HISTORY: Cough MQ: XC2_6 EXAM DATE/TIME: 10/02/2020 10:51 AM COMPARISON: 04/30/2016 RESULT: Lines, tubes, and devices: None. Lungs and pleura: No focal consolidation, pleural effusion or pneumothorax. Cardiomediastinal silhouette: Within normal limits. Bones and soft tissues: No acute osseous abnormality. IMPRESSION IMPRESSION: No acute radiographic abnormality. Rubberizing Mechanic: PSCB Transcribe Date/Time: Oct 02 2020 10:56A Dictated by : TIKI ROGERS MD This examination was interpreted and the report reviewed and electronically signed by: TIKI ROGERS MD on Oct 02 2020 10:57AM EST [facility] Radiology Study observation (narrative) [facility] XR Chest PA and LateralOrder ed By: [facility] Provider on 10-02-2020 [facility] Emergency Room Note on 03-23-2017 [place] [facility] Note Normal [facility] Patient Summary Documentson 03-23-2017 Patient Summary Documents Normal [facility] XR FOOT COMPLETE RIGHTon XR FOOT COMPLETE RIGHT ORIGINALXR FOOT COMPLETE RIGHT, 3 views CLINICAL STATEMENT: Dorsal foot pain, no known injury COMPARISON: None FINDINGS: No acute fracture or dislocation is identified. The joint spaces are maintained. No significant soft tissue swelling. IMPRESSION: No acute process. I have personally reviewed the images of this examination and agree with the resident's findings and interpretation. Interpreted By: Bhavna Mercedes MDPreliminary Report By: Francisco Javier Agosto DOElectronically Signed By: Bhavna Mercedes MD Dictated Date: 03/23/2017 4:02:27 PM Prelim Date: 03/23/2017 4:03:09 PM Sign Date: 03/23/2017 4:15:03 PM Normal [facility] Vital Signs Date Time Vital Sign Value Performing Clinician Facility 03-30-2025 09:39-0400 Body mass index (BMI) [Ratio] 17.85 kg/m2 Aysha Click TEACHER TUTOR.CLINICAL WRITER Work Phone: [facility] 03-30-2025 09:39-0400 Body weight 51.71 kg Aysha Click TEACHER TUTOR.CLINICAL WRITER Work Phone: [facility] 03-30-2025 09:39-0400 Diastolic blood pressure 72 mm[Hg] Aysha Lloyd TEACHER TUTOR.CLINICAL WRITER Work Phone: [facility] 03-30-2025 09:39-0400 Heart rate 100 /min Aysha Click TEACHER TUTOR.CLINICAL WRITER Work Phone: [facility] 03-30-2025 09:39-0400 Respiratory rate 20 /min Aysha Click TEACHER TUTOR.CLINICAL WRITER Work Phone: [facility] 03-30-2025 09:39-0400 SaO2% (BldA) [Mass fraction] 90 % Aysha Click TEACHER TUTOR.CLINICAL WRITER Work Phone: [facility] 03-30-2025 09:39-0400 Systolic blood pressure 108 mm[Hg] Aysha Click TEACHER TUTOR.CLINICAL WRITER Work Phone: [facility] 03-14-2025 09:00-0400 Diastolic blood pressure 83 mm[Hg] Nicolás Golias PT Work Phone: [facility] 03-14-2025 09:00-0400 Heart rate 83 /min Nicolás Golias PT Work Phone: [facility] 03-14-2025 09:00-0400 Systolic blood pressure 172 mm[Hg] Nicolás Golias PT Work Phone: [facility] 02-27-2025 13:07-0400 Body mass index (BMI) [Ratio] 18.99 kg/m2 Teresa Aguilar MD Work Phone: [facility] 02-27-2025 13:07-0400 Body weight 55 kg Teresa Aguilar MD Work Phone: [facility] 02-27-2025 13:07-0400 Diastolic blood pressure 68 mm[Hg] Teresa Aguilar MD Work Phone: [facility] 02-27-2025 13:07-0400 Heart rate 103 /min Teresa Aguilar MD Work Phone: [facility] 02-27-2025 13:07-0400 Respiratory rate 16 /min Teresa Aguilar MD Work Phone: [facility] 02-27-2025 13:07-0400 SaO2% (BldA) [Mass fraction] 94 % Teresa Aguilar MD Work Phone: [facility] 02-27-2025 13:07-0400 Systolic blood pressure 105 mm[Hg] Teresa Aguilar MD Work Phone: [facility] 02-06-2025 11:35-0400 Body mass index (BMI) [Ratio] 18.17 kg/m2 Emeli Spivey PA-C Work Phone: [facility] 02-06-2025 11:35-0400 Body temperature 98.91 [degF] Emeli Spivey PA-C Work Phone: [facility] 02-06-2025 11:35-0400 Body weight 52.62 kg Emeli Spivey PA-C Work Phone: [facility] 02-06-2025 11:35-0400 Diastolic blood pressure 72 mm[Hg] Emeli Spivey PA-C Work Phone: [facility] 02-06-2025 11:35-0400 Heart rate 110 /min Emeli Spivey PA-C Work Phone: [facility] 02-06-2025 11:35-0400 Respiratory rate 16 /min Emeli Spivey PA-C Work Phone: [facility] 02-06-2025 11:35-0400 SaO2% (BldA) [Mass fraction] 93 % Emeli Spivey PA-C Work Phone: [facility] 02-06-2025 11:35-0400 Systolic blood pressure 101 mm[Hg] Emeli Spivey PA-C Work Phone: [facility] 12-19-2024 14:33-0400 Body mass index (BMI) [Ratio] 18.76 kg/m2 Cora Gil PA-C Work Phone: [facility] 12-19-2024 14:33-0400 Body weight 54.34 kg Cora Gil PA-C Work Phone: [facility] 12-19-2024 14:33-0400 Diastolic blood pressure 77 mm[Hg] Cora Gil PA-C Work Phone: [facility] 12-19-2024 14:33-0400 Heart rate 53 /min Cora Gil PA-C Work Phone: [facility] 12-19-2024 14:33-0400 SaO2% (BldA) [Mass fraction] 99 % Cora Gil PA-C Work Phone: [facility] 12-19-2024 14:33-0400 Systolic blood pressure 122 mm[Hg] Cora Gil PA-C Work Phone: [facility] 11-22-2024 14:10-0400 Body mass index (BMI) [Ratio] 19.06 kg/m2 Nga Tannhof TEACHER TUTOR.CLINICAL WRITER Work Phone: [facility] 11-22-2024 14:10-0400 Body weight 55.2 kg Ngajames Ochoahof TEACHER TUTOR.CLINICAL WRITER Work Phone: [facility] 11-22-2024 14:10-0400 Diastolic blood pressure 80 mm[Hg] Ngajames Ochoahof TEACHER TUTOR.CLINICAL WRITER Work Phone: [facility] 11-22-2024 14:10-0400 Heart rate 107 /min Nga Donhof TEACHER TUTOR.CLINICAL WRITER Work Phone: [facility] 11-22-2024 14:10-0400 Respiratory rate 16 /min Nga Tannhof TEACHER TUTOR.CLINICAL WRITER Work Phone: [facility] 11-22-2024 14:10-0400 SaO2% (BldA) [Mass fraction] 93 % Ngajames Ochoahof TEACHER TUTOR.CLINICAL WRITER Work Phone: [facility] 11-22-2024 14:10-0400 Systolic blood pressure 110 mm[Hg] Nga Tannhof TEACHER TUTOR.CLINICAL WRITER Work Phone: [facility] 09-07-2024 19:24-0500 Diastolic Blood Pressure Non-Invasive 67 mm[Hg] JOE CLARK MD [facility] 09-07-2024 19:24-0500 Heart rate 75 /min JOE CLARK MD [facility] 09-07-2024 19:24-0500 Respiratory rate 16 /min JOE CLARK MD [facility] 09-07-2024 19:24-0500 Systolic Blood Pressure Non-Invasive 104 mm[Hg] JOE CLARK MD [facility] 09-07-2024 16:20-0500 Body temperature 97.16 [degF] JOE CLARK MD [facility] 09-07-2024 16:20-0500 Body weight 53.3 kg JOE CLARK MD [facility] 09-07-2024 16:20-0500 Diastolic Blood Pressure Non-Invasive 65 mm[Hg] JOE CLARK MD [facility] 09-07-2024 16:20-0500 Heart rate 78 /min JOE CLARK MD [facility] 09-07-2024 16:20-0500 Respiratory rate 16 /min JOE CLARK MD [facility] 09-07-2024 16:20-0500 Systolic Blood Pressure Non-Invasive 98 mm[Hg] JOE CLARK MD [facility] 06-09-2024 08:46-0400 Body mass index (BMI) [Ratio] 18.27 kg/m2 Nga Ferrer APRN.CLINICAL WRITER Work Phone: [facility] 06-09-2024 08:46-0400 Body weight 52.9 kg Nga Ferrer APRN.CLINICAL WRITER Work Phone: [facility] 06-09-2024 08:46-0400 Diastolic blood pressure 82 mm[Hg] Nga Ferrer APRN.CLINICAL WRITER Work Phone: [facility] 06-09-2024 08:46-0400 Heart rate 95 /min Nga Guevaraf TEACHER TUTOR.CLINICAL WRITER Work Phone: [facility] 06-09-2024 08:46-0400 Respiratory rate 20 /min Nga Guevaraarcenio TEACHER TUTOR.CLINICAL WRITER Work Phone: [facility] 06-09-2024 08:46-0400 SaO2% (BldA) [Mass fraction] 100 % Nga Ochoasam TEACHER TUTOR.CLINICAL WRITER Work Phone: [facility] 06-09-2024 08:46-0400 Systolic blood pressure 127 mm[Hg] Nga Ochoaneil TEACHER TUTOR.CLINICAL WRITER Work Phone: [facility] 06-05-2024 08:55-0400 Body mass index (BMI) [Ratio] 17.54 kg/m2 Pulm Wstr Work Phone: [facility] 06-05-2024 08:55-0400 Body weight 50.8 kg Pulm Wstr Work Phone: [facility] 05-17-2024 14:33-0400 Body height 170.2 cm AYESHA KENNEDY MD [facility] 05-17-2024 14:33-0400 Body temperature 97.52 [degF] AYESHA KENNEDY MD [facility] 05-17-2024 14:33-0400 Body weight 52.3 kg AYESHA KENNEDY MD [facility] 05-17-2024 14:33-0400 Diastolic Blood Pressure Non-Invasive 64 mm[Hg] AYESHA KENNEDY MD [facility] 05-17-2024 14:33-0400 Heart rate 105 /min AYESHA KENNEDY MD [facility] 05-17-2024 14:33-0400 Respiratory rate 20 /min AYESHA KENNEDY MD [facility] 05-17-2024 14:33-0400 Systolic Blood Pressure Non-Invasive 131 mm[Hg] AYESHA KENNEDY MD [facility] 04-25-2024 16:09-0400 Body mass index (BMI) [Ratio] 18.06 kg/m2 Teresa Aguilar MD Work Phone: [facility] 04-25-2024 16:09-0400 Body weight 52.3 kg Teresa Aguilar MD Work Phone: [facility] 04-25-2024 16:09-0400 Diastolic blood pressure 74 mm[Hg] Teresa Aguilar MD Work Phone: [facility] 04-25-2024 16:09-0400 Heart rate 96 /min Teresa Aguilar MD Work Phone: [facility] 04-25-2024 16:09-0400 Respiratory rate 20 /min Teresa Aguilar MD Work Phone: [facility] 04-25-2024 16:09-0400 SaO2% (BldA) [Mass fraction] 93 % Teresa Aguilar MD Work Phone: [facility] Comment on above: 93-94 sitting on RA no O2 04-25-2024 16:09-0400 Systolic blood pressure 112 mm[Hg] Teresa Aguilar MD Work Phone: [facility] 03-29-2024 14:47-0400 Body mass index (BMI) [Ratio] 17.6 kg/m2 Betzy Flavia PA-C Work Phone: [facility] 03-29-2024 14:47-0400 Body weight 50.98 kg Betzy Flavia PA-C Work Phone: [facility] 03-29-2024 14:47-0400 Diastolic blood pressure 72 mm[Hg] Betzy Remyone PA-C Work Phone: [facility] 03-29-2024 14:47-0400 Heart rate 103 /min Betzy Flavia PA-C Work Phone: [facility] 03-29-2024 14:47-0400 SaO2% (BldA) [Mass fraction] 89 % Betzy Alejandro PA-C Work Phone: [facility] Comment on above: on room air 03-29-2024 14:47-0400 Systolic blood pressure 96 mm[Hg] Betzy Flavia FARAH-Chung Work Phone: [facility] 02-21-2024 08:48-0400 Body mass index (BMI) [Ratio] 17.39 kg/m2 Kileyamish Harris TEACHER TUTOR.CLINICAL WRITER Work Phone: [facility] 02-21-2024 08:48-0400 Body weight 50.35 kg Kiley Harris TEACHER TUTOR.CLINICAL WRITER Work Phone: [facility] 12-30-2023 11:58-0400 Body height 170.[address] MARYJANE GALLOWAY MD [facility] 12-30-2023 11:58-0400 Body temperature 97.16 [degF] DR MARYJANE GALLOWAY MD [facility] 12-30-2023 11:58-0400 Body weight [address] MARYJANE GALLOWAY MD [facility] 12-30-2023 11:58-0400 Diastolic Blood Pressure Non-Invasive 60 mm[Hg] DR MARYJANE GALLOWAY MD [facility] 12-30-2023 11:58-0400 Heart rate 114 /min DR MARYJANE GALLOWAY MD [facility] 12-30-2023 11:58-0400 Respiratory rate 22 /min DR MARYJANE GALLOWAY MD [facility] 12-30-2023 11:58-0400 Systolic Blood Pressure Non-Invasive 90 mm[Hg] DR MARYJANE GALLOWAY MD [facility] 12-01-2023 08:46-0400 Body weight 50.35 kg Nga Ochoahof TEACHER TUTOR.CLINICAL WRITER Work Phone: [facility] 12-01-2023 08:46-0400 Diastolic blood pressure 60 mm[Hg] Nga Ochoahof TEACHER TUTOR.CLINICAL WRITER Work Phone: [facility] 12-01-2023 08:46-0400 Heart rate 106 /min Nga Ochoahof TEACHER TUTOR.CLINICAL WRITER Work Phone: [facility] 12-01-2023 08:46-0400 Respiratory rate 20 /min Nga Ochoahof TEACHER TUTOR.CLINICAL WRITER Work Phone: [facility] 12-01-2023 08:46-0400 SaO2% (BldA) [Mass fraction] 90 % Nga Ochoahof TEACHER TUTOR.CLINICAL WRITER Work Phone: [facility] 12-01-2023 08:46-0400 Systolic blood pressure 90 mm[Hg] Nga Ochoahof TEACHER TUTOR.CLINICAL WRITER Work Phone: [facility] 09-28-2023 18:01-0500 Diastolic Blood Pressure Non-Invasive 70 mm[Hg] JOCELIN FROMMELT DO [facility] 09-28-2023 18:01-0500 Heart rate 99 /min JOCELIN FROMMELT DO [facility] 09-28-2023 18:01-0500 Systolic Blood Pressure Non-Invasive 120 mm[Hg] JOCELIN FROMMELT DO [facility] 09-28-2023 15:46-0500 Heart rate 106 /min JOCELIN FROMMELT DO [facility] 09-28-2023 15:46-0500 Respiratory rate 20 /min JOCELIN FROMMELT DO [facility] 09-28-2023 15:45-0500 Heart rate 106 /min JOCELIN FROMMELT DO [facility] 09-28-2023 15:45-0500 Respiratory rate 18 /min JOCELIN FROMMELT DO [facility] 09-28-2023 15:40-0500 Respiratory rate 18 /min JOCELIN FROMMELT DO [facility] 09-28-2023 15:11-0500 Body height 172.7 cm JOCELIN FROMMELT DO [facility] 09-28-2023 15:11-0500 Body temperature 98.24 [degF] JOCELIN FROMMELT DO [facility] 09-28-2023 15:11-0500 Body weight 52.3 kg JOCELIN FROMMELT DO [facility] 09-28-2023 15:11-0500 Diastolic Blood Pressure Non-Invasive 62 mm[Hg] JOCELIN FROMMELT DO [facility] 09-28-2023 15:11-0500 Systolic Blood Pressure Non-Invasive 122 mm[Hg] JOCELIN FROMMELT DO [facility] 08-18-2023 09:00-0500 Diastolic blood pressure 61 mm[Hg] Nicolás Golias PT Work Phone: [facility] 08-18-2023 09:00-0500 Heart rate 102 /min Nicolás Golias PT Work Phone: [facility] 08-18-2023 09:00-0500 Systolic blood pressure 99 mm[Hg] Nicolás Golias PT Work Phone: [facility] 08-02-2023 08:35-0500 Body height 166.4 cm Betzy Alejandro PA-C Work Phone: [facility] 08-02-2023 08:35-0500 Body weight 51.26 kg Betzy Flavia PA-C Work Phone: [facility] 08-02-2023 08:35-0500 Heart rate 103 /min Betzy Remyone PA-C Work Phone: [facility] 08-02-2023 08:35-0500 Respiratory rate 16 /min Betzy Flavia PA-C Work Phone: [facility] 08-02-2023 08:35-0500 SaO2% (BldA) [Mass fraction] 91 % Betzy Remyone PA-C Work Phone: [facility] 08-02-2023 08:32-0500 Body height 166.4 cm Pulm Wstr Work Phone: [facility] 08-02-2023 08:32-0500 Body weight 51.26 kg Pulm Wstr Work Phone: [facility] 08-02-2023 08:32-0500 Heart rate 103 /min Pulm Wstr Work Phone: [facility] 08-02-2023 08:32-0500 Respiratory rate 16 /min Pulm Wstr Work Phone: [facility] 08-02-2023 08:32-0500 SaO2% (BldA) [Mass fraction] 91 % Pulm Wstr Work Phone: [facility] 07-21-2023 13:10-0500 Body height 172.[address] [place] [address] 07-21-2023 13:10-0500 Body temperature 96.8 [degF] Pst [address] [place] [address] 07-21-2023 13:10-0500 Body weight 51.[address] [place] [address] 07-21-2023 13:10-0500 Diastolic blood pressure 78 mm[Hg] [facility] [facility] 07[facility]23 13:10-0500 Heart rate 95 /min Pst 1 [facility] 07-21-2023 13:10-0500 Respiratory rate 18 /min Pst [address] [place] [address] 07-21-2023 13:10-0500 SaO2% (BldA) [Mass fraction] 100 % Pst 1 [facility] 07-21-2023 13:10-0500 Systolic blood pressure 121 mm[Hg] Pst 1 [facility] 06-26-2023 11:25-0400 Respiratory rate 22 /min JOE CLARK MD [facility] 06-26-2023 11:20-0400 Body temperature 98.6 [degF] JOE CLARK MD [facility] 06-26-2023 11:20-0400 Diastolic Blood Pressure Non-Invasive 82 1 JOE CLARK MD [facility] 06-26-2023 11:20-0400 Heart rate 99 /min JOE CLARK MD [facility] 06-26-2023 11:20-0400 Respiratory rate 22 /min JOE CLARK MD [facility] 06-26-2023 11:20-0400 Systolic Blood Pressure Non-Invasive 127 1 JOE CLARK MD [facility] 06-18-2023 09:52-0400 Body height 170.2 cm Adolph Taylor MD Work Phone: [facility] 06-18-2023 09:52-0400 Body weight 50.53 kg Adolph Taylor MD Work Phone: [facility] 06-18-2023 09:52-0400 Heart rate 94 /min Adolph Taylor MD Work Phone: [facility] 06-18-2023 09:52-0400 SaO2% (BldA) [Mass fraction] 95 % Adolph Taylor MD Work Phone: [facility] 05-31-2023 10:33-0400 Body weight 51.71 kg Tiki Loo MD Work Phone: [facility] 05-31-2023 10:33-0400 Heart rate 88 /min Tiki Loo MD Work Phone: [facility] 05-31-2023 10:33-0400 Respiratory rate 20 /min Tiki Loo MD Work Phone: [facility] 05-31-2023 10:33-0400 SaO2% (BldA) [Mass fraction] 93 % Tiki Loo MD Work Phone: [facility] 05-21-2023 12:47-0400 Body temperature 97.39 [degF] Josh Hermes TEACHER TUTOR.CLINICAL WRITER Work Phone: [facility] 05-21-2023 12:47-0400 Body weight 51.89 kg Josh Hermes TEACHER TUTOR.CLINICAL WRITER Work Phone: [facility] 05-21-2023 12:47-0400 Diastolic blood pressure 75 mm[Hg] Josh Hermes TEACHER TUTOR.CLINICAL WRITER Work Phone: [facility] 05-21-2023 12:47-0400 Heart rate 105 /min Josh Hermes TEACHER TUTOR.CLINICAL WRITER Work Phone: [facility] 05-21-2023 12:47-0400 Respiratory rate 24 /min Josh Hermes TEACHER TUTOR.CLINICAL WRITER Work Phone: [facility] 05-21-2023 12:47-0400 SaO2% (BldA) [Mass fraction] 96 % Josh Hermes TEACHER TUTOR.CLINICAL WRITER Work Phone: [facility] 05-21-2023 12:47-0400 Systolic blood pressure 122 mm[Hg] Josh Hermes TEACHER TUTOR.CLINICAL WRITER Work Phone: [facility] 05-12-2023 09:52-0400 Body weight 51.26 kg Nga Ferrer TEACHER TUTOR.CLINICAL WRITER Work Phone: [facility] 05-12-2023 09:52-0400 Diastolic blood pressure 60 mm[Hg] Nga Guevaraf TEACHER TUTOR.CLINICAL WRITER Work Phone: [facility] 05-12-2023 09:52-0400 Heart rate 86 /min Nga Guevaraf TEACHER TUTOR.CLINICAL WRITER Work Phone: [facility] 05-12-2023 09:52-0400 Respiratory rate 16 /min Nag Guevara TEACHER TUTOR.CLINICAL WRITER Work Phone: [facility] 05-12-2023 09:52-0400 SaO2% (BldA) [Mass fraction] 93 % Nga Ferrer TEACHER TUTOR.CLINICAL WRITER Work Phone: [facility] 05-12-2023 09:52-0400 Systolic blood pressure 90 mm[Hg] [facility] TEACHER TUTOR.CLINICAL WRITER Work Phone: [facility] 04-15-2023 10:48-0400 Body temperature 98.24 [degF] JEANETH ELISE MD [facility] 04-15-2023 10:48-0400 Diastolic Blood Pressure Non-Invasive 67 1 JEANETH ELISE MD [facility] 04-15-2023 10:48-0400 Heart rate 99 /min JEANETH ELISE MD [facility] 04-15-2023 10:48-0400 Respiratory rate 20 /min JEANETH ELISE MD [facility] 04-15-2023 10:48-0400 Systolic Blood Pressure Non-Invasive 107 1 JEANETH ELISE MD [facility] 11-27-2022 12:47-0400 Diastolic blood pressure 88 mm[Hg] [facility] 11-27-2022 12:47-0400 Heart rate 72 /min [facility] [place] 11-27-2022 12:47-0400 Respiratory rate 16 /min [facility] 11-27-2022 12:47-0400 SaO2% (BldA) [Mass fraction] 95 % [facility] 11-27-2022 12:47-0400 Systolic blood pressure 139 mm[Hg] [facility] 11-27-2022 08:58-0400 Body temperature 97.5 [degF] [facility] 11-27-2022 08:54-0400 Body height 172.72 cm [facility] [place] 11-27-2022 08:54-0400 Body mass index (BMI) [Ratio] 19.8 kg/m2 [facility] 11-27-2022 08:54-0400 Body weight 59.2 kg [facility] [place] 11-27-2022 08:35-0400 Body temperature 97.5 [degF] Cora Hernandeser PA-C Work Phone: [facility] 11-27-2022 08:35-0400 Body weight 54.61 kg Cora Hernandeser PA-C Work Phone: [facility] 11-27-2022 08:35-0400 Diastolic blood pressure 78 mm[Hg] Cora Queener PA-C Work Phone: [facility] 11-27-2022 08:35-0400 Heart rate 96 /min Cora Queener PA-C Work Phone: [facility] 11-27-2022 08:35-0400 Respiratory rate 20 /min Cora Queener PA-C Work Phone: [facility] 11-27-2022 08:35-0400 SaO2% (BldA) [Mass fraction] 96 % Cora Queener PA-C Work Phone: [facility] 11-27-2022 08:35-0400 Systolic blood pressure 121 mm[Hg] Cora Queener PA-C Work Phone: [facility] 08-28-2022 10:47-0500 Body height 170.2 cm RAMÓN REClicknation DO [facility] 08-28-2022 10:47-0500 Body temperature 98.78 [degF] RAMÓN REICHFIELD DO [facility] 08-28-2022 10:47-0500 Body weight 56.8 kg RAMÓN REICHFIELD DO [facility] 08-28-2022 10:47-0500 Diastolic Blood Pressure Non-Invasive 88 1 RAMÓN REICHFIELD DO [facility] 08-28-2022 10:47-0500 Heart rate 90 /min RAMÓN REICHFIELD DO [facility] 08-28-2022 10:47-0500 Respiratory rate 18 /min [facility] 08-28-2022 10:47-0500 Systolic Blood Pressure Non-Invasive 115 1 RAMÓN REICHFIELD DO [facility] 08-02-2022 15:10-0500 Body temperature 98.42 [degF] ALISSA POWERS MD [facility] 08-02-2022 15:10-0500 Diastolic Blood Pressure Non-Invasive 63 1 ALISSA POWERS MD [facility] 08-02-2022 15:10-0500 Heart rate 106 /min ALISSA POWERS MD [facility] 08-02-2022 15:10-0500 Respiratory rate 16 /min ALISSA POWERS MD [facility] 08-02-2022 15:10-0500 Systolic Blood Pressure Non-Invasive 112 1 ALISSA POWERS MD [facility] 06-23-2022 12:00-0400 Diastolic blood pressure 84 mm[Hg] ALISSA POWERS MD [facility] 06-23-2022 12:00-0400 Heart rate 90 /min ALISSA POWERS MD [facility] 06-23-2022 12:00-0400 Respiratory rate 22 /min ALISSA POWERS MD [facility] 06-23-2022 12:00-0400 Systolic blood pressure 112 mm[Hg] ALISSA POWERS MD [facility] 06-23-2022 11:30-0400 Diastolic blood pressure 76 mm[Hg] ALISSA POWERS MD [facility] 06-23-2022 11:30-0400 Heart rate 94 /min ALISSA POWERS MD [facility] 06-23-2022 11:30-0400 Respiratory rate 24 /min ALISSA POWERS MD [facility] 06-23-2022 11:30-0400 Systolic blood pressure 108 mm[Hg] ALISSA POWERS MD [facility] 06-23-2022 11:00-0400 Diastolic blood pressure 73 mm[Hg] ALISSA POWERS MD [facility] 06-23-2022 11:00-0400 Heart rate 87 /min ALISSA POWERS MD [facility] 06-23-2022 11:00-0400 Respiratory rate 18 /min ALISSA POWERS MD [facility] 06-23-2022 11:00-0400 Systolic blood pressure 127 mm[Hg] ALISSA POWERS MD [facility] 06-23-2022 10:30-0400 Body height 172.7 cm ALISSA POWERS MD [facility] 06-23-2022 10:30-0400 Body temperature 98.06 [degF] ALISSA POWERS MD [facility] 06-23-2022 10:30-0400 Body weight 59.1 kg ALISSA POWERS MD [facility] 06-23-2022 10:30-0400 Heart rate 88 /min ALISSA POWERS MD [facility] 06-10-2022 10:48-0400 Body weight 58.97 kg Nga Tannhof TEACHER TUTOR.CLINICAL WRITER Work Phone: [facility] 06-10-2022 10:48-0400 Diastolic blood pressure 88 mm[Hg] Nga Tannhof TEACHER TUTOR.CLINICAL WRITER Work Phone: [facility] 06-10-2022 10:48-0400 Heart rate 80 /min Nga Tannhof TEACHER TUTOR.CLINICAL WRITER Work Phone: [facility] 06-10-2022 10:48-0400 Respiratory rate 20 /min Nga Tannhof TEACHER TUTOR.CLINICAL WRITER Work Phone: [facility] 06-10-2022 10:48-0400 Systolic blood pressure 120 mm[Hg] Nga Tannhof TEACHER TUTOR.CLINICAL WRITER Work Phone: [facility] 05-11-2022 13:59-0400 Body weight 60.06 kg Teresa Aguilar MD Work Phone: [facility] 05-11-2022 13:59-0400 Diastolic blood pressure 70 mm[Hg] Teresa Aguilar MD Work Phone: [facility] 05-11-2022 13:59-0400 Heart rate 78 /min Teresa Aguilar MD Work Phone: [facility] 05-11-2022 13:59-0400 Respiratory rate 18 /min Teresa Aguilar MD Work Phone: [facility] 05-11-2022 13:59-0400 Systolic blood pressure 118 mm[Hg] Teresa Aguilar MD Work Phone: [facility] 05-05-2022 17:11-0400 Body height 170.2 cm TYLER CARRASCO MD [facility] 05-05-2022 17:11-0400 Body temperature 97.88 [degF] TYLER CARRASCO MD [facility] 05-05-2022 17:11-0400 Body weight 63.6 kg TYLER CARRASCO MD [facility] 05-05-2022 17:11-0400 Diastolic blood pressure 71 mm[Hg] TYLER CARRASCO MD [facility] 05-05-2022 17:11-0400 Heart rate 111 /min TYLER CARRASCO MD [facility] 05-05-2022 17:11-0400 Respiratory rate 20 /min TYLER CARRASCO MD [facility] 05-05-2022 17:11-0400 Systolic blood pressure 120 mm[Hg] TYLER CARRASCO MD [facility] 01-29-2022 17:05-0400 Body temperature 98.42 [degF] JEANETH ELISE MD [facility] 01-29-2022 17:05-0400 Body weight 65.5 kg JEANETH ELISE MD [facility] 01-29-2022 17:05-0400 Diastolic blood pressure 69 mm[Hg] JEANETH ELISE MD [facility] 01-29-2022 17:05-0400 Heart rate 96 /min JEANETH ELISE MD [facility] 01-29-2022 17:05-0400 Respiratory rate 16 /min JEANETH ELISE MD [facility] 01-29-2022 17:05-0400 Systolic blood pressure 119 mm[Hg] JEANETH ELISE MD [facility] Encounters Encounter Date Encounter Type Care Provider Facility Start: 04-02-2025 End: 04-02-2025 Orders Only Kiley Harris TEACHER TUTOR.CLINICAL WRITER Work Phone: Pulmonary Medicine Comment on above: Encounter for screen ing for lung cancer (Primary Dx); Tobacco use current Start: 03-30-2025 End: 03-30-2025 Office outpatient visit 25 minutes Aysha Lloyd TEACHER TUTOR.CLINICAL WRITER Work Phone: Pulmonary Medicine Comment on above: COPD, severe (HCC) ( Primary Dx); Chronic hypoxemic respiratory failure (HCC); Current smoker; Multiple lung nodules Start: 03-30-2025 End: 03-30-2025 ambulatory AYSHA LLOYD Facility:[facility] Start: 03-19-2025 End: 03-19-2025 ambulatory Maia Beasley PT [facility] Comment on above: Falls (Primary Dx); Balance problem Start: 03-14-2025 End: 03-14-2025 OT/PT/Speech Visit Nicolás Louis PT Work Phone: [facility] Comment on above: Balance problem (Monique azra Dx); Falls; Balance disorder Start: 03-06-2025 End: 03-06-2025 Follow-up encounter Teresa Aguilar MD Work Phone: [facility] [place] Comment on above: Results Start: 03-05-2025 End: 03-05-2025 Refill Teresa Aguilar MD Work Phone: [facility] [place] Comment on above: Refill Request Start: 03-01-2025 End: 03-01-2025 Telephone encounter Teresa Aguilar MD Work Phone: [facility] [place] Comment on above: Medication Request Start: 03-01-2025 ambulatory CORA GIL Facilit y:[facility] Start: 03-01-2025 End: 03-01-2025 Subsequent hospital visit by physician Alexandra [facility] N[facility]ie (I-Stat/1.5t) Radiology Comment on above: Falls [R29.6] Start: 02-27-2025 End: 02-27-2025 Office outpatient visit 25 minutes Teresa Aguilar MD Work Phone: [facility] [place] Comment on above: Falls (Primary Dx); Need for vaccination; Bipolar I disorder, most recent episode (or current) depressed, severe, specified as with psychotic behavior (HCC); Chronic obstructive pulmonary disease, unspecified COPD type (HCC); Tobacco use disorder; Cognitive changes; Elevated glucose; Balance disorder Start: 02-27-2025 End: 02-27-2025 Refill Teresa Aguilar MD Work Phone: [facility] [place] Comment on above: Refill Request Start: 02-22-2025 End: 02-22-2025 Telephone encounter Teresa Aguilar MD Work Phone: [facility] [place] Comment on above: Patient Update Start: 02-06-2025 End: 02-16-2025 Telephone encounter Emeli Spivey PA-C Work Phone: [facility] [place] Comment on above: Orders Patient Update Start: 02-06-2025 End: 02-06-2025 Patient encounter procedure Emeli Spivey PA-C Work Phone: [facility] [place] Comment on above: Postural hypotension (Primary Dx); Benign paroxysmal positional vertigo, unspecified laterality; Chronic hypoxemic respiratory failure (HCC); Oral candidiasis Start: 02-06-2025 End: 02-06-2025 ambulatory Teresa Aguilar MD Work Phone: [facility] [place] Comment on above: Dizziness Start: 01-29-2025 End: 01-29-2025 Refill Teresa Aguilar MD Work Phone: [facility] [place] Comment on above: Refill Request Start: 01-16-2025 End: 01-18-2025 Telephone encounter Teresa Aguilar MD Work Phone: [facility] [place] Comment on above: Forms ([facility]) Start: 01-04-2025 End: 01-11-2025 Telephone encounter Teresa Aguilar MD Work Phone: [facility] [place] Comment on above: Forms ([employer]) Start: 01-02-2025 End: 01-02-2025 Refill Teresa Aguilar MD Work Phone: [facility] [place] Comment on above: Refill Request Start: 12-21-2024 End: 12-29-2024 Follow-up encounter Cora Gil PA-C Work Phone: Neurology Start: 12-19-2024 End: 12-19-2024 ambulatory CORAUMER HERNANDES Facility:[facility] Start: 12-19-2024 End: 12-19-2024 Patient encounter procedure Cora Gil PA-C Work Phone: Neurology Comment on above: Cognitive impairment , mild, so stated (Primary Dx); Falls; Cognitive changes; Spinal stenosis of cervical region; Acute low back pain, unspecified back pain laterality, unspecified whether sciatica present; Spinal stenosis of lumbar region, unspecified whether neurogenic claudication present; Neuropathy Start: 12-19-2024 End: 12-19-2024 ambulatory CORAUMER HERNANDES Facility:[facility] Start: 12-18-2024 End: 12-18-2024 Refill Teresa Aguilar MD Work Phone: [facility] [place] Start: 11-23-2024 End: 11-23-2024 Telephone encounter Teresa Aguilar MD Work Phone: [facility] [place] Comment on above: Question (Re: Disabi lity forms/Letter) Start: 11-22-2024 End: 11-22-2024 Office outpatient visit 25 minutes Nga Ferrer APRN.CNP Work Phone: [facility] [place] Comment on above: Degeneration of inte rvertebral disc of lumbar region, unspecified whether pain present (Primary Dx); Lumbar spondylosis; Cognitive changes; Encounter for immunization Start: 11-22-2024 End: 11-22-2024 [facility] Start: 11-06-2024 End: 11-06-2024 Refill Teresa Aguilar MD Work Phone: [facility] [place] Comment on above: Refill Request Start: 10-17-2024 End: 11-09-2024 Telephone encounter Teresa Aguilar MD Work Phone: [facility] [place] Comment on above: letter Start: 10-13-2024 End: 10-19-2024 Refill Teresa Aguilar MD Work Phone: [facility] [place] Comment on above: Refill Request Start: 10-09-2024 End: 10-09-2024 Telephone encounter Teresa Aguilar MD Work Phone: [facility] [place] Comment on above: Forms ([facility] ) Start: 09-18-2024 End: 09-18-2024 Refill Teresa Aguilar MD Work Phone: [facility] [place] Comment on above: Refill Request Start: 09-07-2024 End: 09-07-2024 Emergency department patient visit JOE CLARK MD [facility] Start: 08-25-2024 End: 08-25-2024 Refill Teresa Aguilar MD Work Phone: [facility] [place] Comment on above: Refill Request Start: 08-07-2024 End: 08-07-2024 Refill Teresa Aguilar MD Work Phone: [facility] [place] Comment on above: Refill Request Start: 07-28-2024 End: 07-28-2024 Refill Teresa Aguilar MD Work Phone: [facility] [place] Comment on above: Refill Request Start: 07-27-2024 End: 08-04-2024 Telephone encounter Kiley Harris APRN.CNP Work Phone: Pulmonary Medicine Comment on above: Results Start: 07-17-2024 End: 07-17-2024 Telephone encounter Teresa Aguilar MD Work Phone: [facility] [place] Comment on above: [facility] Start: 07-11-2024 End: 07-11-2024 ambulatory [facility] Facility:[facility] Start: 07-11-2024 End: 07-11-2024 Subsequent hospital visit by physician [facility] (I-Stat) Work Phone: Cat Scan Comment on above: Lung nodules [R91.8] Start: 06-14-2024 End: 06-14-2024 Telephone encounter Nga Ferrer APRN.CNP Work Phone: [facility] [place] Comment on above: Results (Labs ) Start: 06-09-2024 End: 06-09-2024 Patient encounter procedure Nga Ferrer APRN.CLINICAL WRITER Work Phone: [facility] [place] Comment on above: Falls (Primary Dx); Cognitive changes; Cognitive impairment, mild, so stated; COPD, severe (HCC); Requires oxygen therapy; Encounter for screening examination for other mental health and behavioral disorders; Screening for depression Start: 06-09-2024 End: 06-09-2024 ambulatory NGA FERRER Facility:[facility] Start: 06-06-2024 End: 06-06-2024 Refill Teresa Aguilar MD Work Phone: [facility] [place] Comment on above: Refill Request Start: 06-05-2024 End: 06-05-2024 Telephone encounter Nga Ferrer APRN.CLINICAL WRITER Work Phone: [facility] [place] Comment on above: Orders Start: 06-05-2024 End: 06-05-2024 ambulatory [facility] Work Phone[facility] Comment on above: Spirometry Start: 06-05-2024 End: 06-05-2024 Patient encounter procedure [facility] Work Phone: [facility] Start: 05-31-2024 End: 06-05-2024 ambulatory Teresa Aguilar MD Work Phone: [facility] Start: 05-30-2024 End: 05-30-2024 Telephone encounter Josh Mirza CARLENE.CLINICAL WRITER Work Phone: [facility] [place] Comment on above: Results Start: 05-19-2024 End: 06-27-2024 Telephone encounter Kiley Kimberly CONCEPCION.CLINICAL WRITER Work Phone: [facility]monary Comment on above: Patient Update Start: 05-18-2024 End: 05-30-2024 Telephone encounter Teresa Aguilar MD Work Phone: [facility] [place] Comment on above: Orders Start: 05-17-2024 End: 05-17-2024 Emergency department patient visit AYESHA KENNEDY MD [facility] Start: 05-17-2024 End: 05-17-2024 Well adult monitoring check done AYESHA KENNEDY MD [facility] Start: 05-08-2024 End: 05-08-2024 Telephone encounter Teresa Aguilar MD Work Phone: [facility] [place] Comment on above: Patient Update Start: 04-27-2024 Telephone encounter Teresa carpenter MD Work Phone: [facility] [place] Comment on above: Forms Start: 04-25-2024 End: 04-25-2024 ambulatory TERESA AGUILAR Facility:[facility] Start: 04-25-2024 End: 04-25-2024 Patient encounter procedure Teresa Aguilar MD Work Phone: [facility] [place] Comment on above: COPD, severe (HCC) ( Primary Dx); Oxygen dependent; Asthma, unspecified asthma severity, unspecified whether complicated, unspecified whether persistent Start: 04-18-2024 Refill Teresa moy MD Work Phone: [facility] [place] Comment on above: Refill Request [facility] ( [facility]) Start: 04-13-2024 Telephone encounter Kiley guadalupe TEACHER TUTOR.CLINICAL WRITER Work Phone: Pulmonary Medicine Comment on above: Patient Update Start: 04-04-2024 ambulatory TERESA Diaz ity:[facility] Start: 04-04-2024 End: 04-04-2024 Subsequent hospital visit by physician Gi/Gu 1 [facility] Work Phone: Radiology Comment on above: 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] Start: 03-29-2024 End: 03-29-2024 Patient encounter procedure Betzy Alejandro PA-C Work Phone: Pulmonary Medicine Comment on above: COPD, severe (HCC) ( Primary Dx); Acute exacerbation of chronic obstructive pulmonary disease (COPD) (HCC); Chronic hypoxemic respiratory failure (HCC); Multiple lung nodules; Current smoker Start: 03-27-2024 Telephone encounter Carolyn Jamison MD Work Phone: Orthopaedics Comment on above: Patient Question Start: 03-14-2024 Telephone encounter Carolyn Jamison MD Work Phone: Orthopaedics Comment on above: Results Start: 03-13-2024 Telephone encounter Kiley guadalupe TEACHER TUTOR.CLINICAL WRITER Work Phone: General Surgery Comment on above: Medication Problem Start: 03-06-2024 Telephone encounter Kiley guadalupe TEACHER TUTOR.CLINICAL WRITER Work Phone: Pulmonary Medicine Comment on above: Results Start: 03-01-2024 End: 03-01-2024 Subsequent hospital visit by physician [facility] (I-Stat) Work Phone: Cat Scan Comment on above: 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] Start: 02-21-2024 End: 02-21-2024 Patient encounter procedure Kiley Harris TEACHER TUTOR.CLINICAL WRITER Work Phone: Pulmonary Medicine Comment on above: Multiple lung nodule s (Primary Dx); Cigarette smoker; Persistent cough for 3 weeks or longer Start: 02-21-2024 End: 02-21-2024 Subsequent hospital visit by physician [facility] (I-Stat) Work Phone: Cat Scan Comment on above: Lung nodules [R91.8] Start: 02-18-2024 Telephone encounter Carolyn Jamison MD Work Phone: Orthopaedics Comment on above: Rx Refills Start: 02-18-2024 End: 02-18-2024 Patient encounter procedure Carolyn Jamison MD Work Phone: Orthopedics Comment on above: 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); Right shoulder pain, unspecified chronicity Start: 02-18-2024 ambulatory TERESA AGUILAR [facility] Start: 02-18-2024 End: 02-18-2024 Subsequent hospital visit by physician [facility] Work Phone: Radiology Comment on above: Chronic right should er pain [M25.511, G89.29] Start: 01-26-2024 Refill Teresa moy MD Work Phone: [facility] [place] Comment on above: Refill Request Start: 01-13-2024 Telephone encounter Carolyn Jamison MD Work Phone: Orthopaedics Comment on above: Appointment Start: 01-11-2024 ambulatory Lennie Khan MA [facility] [place] Comment on above: PHMA/Care Gap Outrea ch (Colon Cancer screening) Start: 01-03-2024 Orders Only Carolyn Jamison MD Work Phone: Orthopedics Comment on above: Chronic right should er pain (Primary Dx) Start: 12-30-2023 End: 12-30-2023 Emergency department patient visit DR MARYJANE GALLOWAY MD [facility] Start: 12-29-2023 Telephone encounter Carolyn Jamison MD Work Phone: Orthopaedics Comment on above: Patient Update Start: 12-08-2023 Refill Teresa moy MD Work Phone: [facility] [place] Comment on above: Refill Request Start: 12-01-2023 Telephone encounter Nga ramos TEACHER TUTOR.CLINICAL WRITER Work Phone: [facility] [place] Comment on above: Results (Xray ) Start: 12-01-2023 End: 12-01-2023 Subsequent hospital visit by physician José Miguel [facility] Work Phone: Radiology Comment on above: COPD with exacerbati on (HCC) [J44.1] Start: 12-01-2023 End: 12-01-2023 Patient encounter procedure Nga Ferrer TEACHER TUTOR.CLINICAL WRITER Work Phone: [facility] Comment on above: COPD with exacerbati on (HCC) (Primary Dx) Start: 11-29-2023 ambulatory Teresa moy MD Work Phone: [facility] Comment on above: productive cough; Fe iván Start: 11-26-2023 End: 11-26-2023 Patient encounter procedure Kimberlee Kennedy PA-C Work Phone: Orthopedics Comment on above: 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) Start: 11-26-2023 ambulatory TERESA AGUILAR [facility] Start: 11-26-2023 End: 11-26-2023 Subsequent hospital visit by physician [facility] Work Phone: Radiology Comment on above: Chronic right should er pain [M25.511, G89.29] Start: 11-13-2023 Refill Josh VAZQUEZ RN.CLINICAL WRITER Work Phone: [facility] [place] Comment on above: Refill Request Start: 11-09-2023 Telephone encounter Kiley guadalupe TEACHER TUTOR.CLINICAL WRITER Work Phone: Pulmonary Medicine Comment on above: Patient Update Start: 10-25-2023 End: 10-25-2023 Patient encounter procedure Carolyn Jamison MD Work Phone: Orthopedics Comment on above: Acute pain of right shoulder (Primary Dx); Status post reverse total replacement of right shoulder Start: 10-25-2023 ambulatory TERESA AGUILAR Facil ity:[facility] Start: 10-25-2023 End: 10-25-2023 Subsequent hospital visit by physician [facility] Work Phone: Radiology Comment on above: Chronic right should er pain [M25.511, G89.29] Start: 10-21-2023 Orders Only Carolyn Jamison MD Work Phone: Orthopedics Comment on above: Chronic right should er pain (Primary Dx) fall-shoulder pain Start: 10-15-2023 End: 10-15-2023 Patient encounter procedure Kimberlee Kennedy PA-C Work Phone: Orthopedics Comment on above: 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) Start: 10-15-2023 ambulatory TERESA Diaz ity:[facility] Start: 10-15-2023 End: 10-15-2023 Subsequent hospital visit by physician [facility] Work Phone: Radiology Comment on above: Chronic right should er pain [M25.511, G89.29] Start: 10-14-2023 Telephone encounter Teresa carpenter MD Work Phone: [facility] Comment on above: Forms (For [employer] re: disability) Start: 10-11-2023 End: 10-11-2023 Subsequent hospital visit by physician José Miguel [facility] Work Phone: Radiology Comment on above: Left hip pain [M25.5 52] Start: 09-28-2023 End: 09-28-2023 Emergency department patient visit JOCELIN VALENTINE [facility] Start: 08-27-2023 ambulatory TERESA AGUILAR Facil ity:[facility] Start: 08-27-2023 End: 08-27-2023 Subsequent hospital visit by physician [facility] Work Phone: Radiology Comment on above: Chronic right should er pain [M25.511, G89.29] Start: 08-26-2023 Telephone encounter Kiley Louie guadalupe APRN.CLINICAL WRITER Work Phone: [facility] Pulmonary Comment on above: Appointment Start: 08-23-2023 Orders Only Carolyn Jamison MD Work Phone: Orthopedics Comment on above: Chronic right should er pain (Primary Dx) Start: 08-18-2023 Telephone encounter Adolph diamond MD Work Phone: Pain Management Comment on above: Diamond Assorter - O ther (Injection: 08/31/2023) Start: 08-18-2023 End: 08-18-2023 ambulatory Nicolás Louis PT Work Phone: [facility] Comment on above: Status post reverse total replacement of right shoulder; Presence of right artificial shoulder joint Start: 08-02-2023 End: 08-02-2023 Office outpatient visit 25 minutes Betzy Alejandro PA-C Work Phone: Pulmonary Medicine Comment on above: COPD, severe (HCC) ( Primary Dx); Cigarette smoker; Unintentional weight loss; Chronic hypoxemic respiratory failure (HCC); Need for influenza vaccination Start: 08-02-2023 End: 08-02-2023 ambulatory Pulm [facility] Work Phone: PULM LAB [facility] Comment on above: Spirometry Start: 08-02-2023 End: 08-02-2023 Patient encounter procedure [facility]m [facility] Work Phone: [facility] Start: 07-21-2023 End: 07-22-2023 ambulatory [facility] Facility:[facility] Start: 07-21-2023 End: 07-21-2023 Admission to [facility] Pst [facility] Start: 07-21-2023 End: 07-21-2023 ambulatory Pst 1 Pre Surgical Testing Comment on above: 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 [M19.011] (Primary Dx); Preop testing; COPD with exacerbation (HCC); Requires oxygen therapy; Asthma, unspecified asthma severity, unspecified whether complicated, unspecified whether persistent; Essential (primary) hypertension; History of pulmonary embolus (PE); Chronic hypoxemic respiratory failure (HCC); Chronic right shoulder pain [M25.511, G89.29]; Impingement syndrome of right shoulder [M75.41] Start: 07-21-2023 End: 07-21-2023 Patient encounter status [facility] Work Phone: Start: 07-21-2023 Encounter for other preprocedural examination CAROLYN JAMISON [facility] Start: 06-26-2023 End: 06-26-2023 Emergency department patient visit JOE CLARK MD [facility] Start: 06-25-2023 Telephone encounter Carolyn Jamison MD Work Phone: Orthopedics Comment on above: Appointment (Post-op physical therapy) Start: 06-24-2023 Orders Only Adolph Taylor MD Work Phone: Pain Management Comment on above: SI joint arthritis ( Primary Dx) Start: 06-23-2023 ambulatory Teresa moy MD Work Phone: Internal Medicine [facility] Start: 06-18-2023 End: 06-18-2023 Patient encounter procedure Adolph Taylor MD Work Phone: Pain Management Comment on above: SI joint arthritis ( Primary Dx); Narrowing of lumbar intervertebral disc space Start: 06-17-2023 Orders Only Carolyn Jamison MD Work Phone: Orthopedics Comment on above: 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); Chronic right shoulder pain; Impingement syndrome of right shoulder; Status post reverse total replacement of right shoulder Appointment (Post-op physical therapy) Future Appointment Start: 06-11-2023 Telephone encounter Kiley guadalupe APRN.CNP Work Phone: [facility] Pulmonary Comment on above: Results Start: 06-11-2023 End: 06-11-2023 Patient encounter procedure Carolyn Jamison MD Work Phone: Orthopedics Comment on above: 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) Start: 05-31-2023 Telephone encounter Tiki Loo MD Work Phone: Pulmonary Medicine Comment on above: Orders Start: 05-31-2023 End: 05-31-2023 Patient encounter procedure Tiki Loo MD Work Phone: Pulmonary Medicine Comment on above: Chronic obstructive pulmonary disease, unspecified COPD type (HCC) (Primary Dx); Cigarette smoker; Chronic hypoxemic respiratory failure (HCC) Start: 05-21-2023 Telephone encounter Josh nguyen APRN.CLINICAL WRITER Work Phone: [facility] Comment on above: Orders (New O2 order -for continuous O2) Start: 05-21-2023 End: 05-21-2023 Office outpatient visit 25 minutes Josh Mirza APRN.CLINICAL WRITER Work Phone: [facility] Comment on above: Chronic obstructive pulmonary disease, unspecified COPD type (HCC) (Primary Dx); Oxygen dependent Start: 05-13-2023 Telephone encounter Nga ramos APRN.CLINICAL WRITER Work Phone: [facility] Comment on above: Results (Xray Lumbar /Coccyx) Start: 05-12-2023 End: 05-12-2023 Patient encounter procedure Nga Ferrer APRN.CLINICAL WRITER Work Phone: [facility] Comment on above: Hospital discharge f ollow-up (Primary Dx); Fall, initial encounter; Acute pain of left shoulder; Tail bone pain Start: 05-12-2023 End: 05-12-2023 Subsequent hospital visit by physician Xr [facility] Work Phone: Radiology Comment on above: Tail bone pain [M53. 3] Start: 04-22-2023 Telephone encounter Chester appiah MD Work Phone: Orthopaedics Comment on above: Patient Question Start: 04-15-2023 ambulatory Teresa moy MD Work Phone: [facility] Comment on above: Head Injury Start: 04-15-2023 End: 04-15-2023 Emergency department patient visit JEANETH ELISE MD [facility] Start: 12-24-2022 Orders Only Chester Freire MD Work Phone: Orthopaedics Comment on above: Right shoulder pain, unspecified chronicity (Primary Dx) Start: 12-21-2022 Telephone encounter Teresa carpenter MD Work Phone: [facility] Comment on above: Patient Update Start: 11-27-2022 End: 11-27-2022 Emergency department patient visit Teresa Aguilar Facility:[facility] Start: 11-27-2022 End: 11-27-2022 Emergency department patient visit [facility] Start: 11-27-2022 End: 11-27-2022 Patient encounter procedure Cora Gil PA-C Work Phone: Neurology Comment on above: Chest pain, unspecif ied type (Primary Dx); Forgetfulness; Shortness of breath; Dizziness Start: 11-13-2022 Telephone encounter Nga castanedaof TEACHER TUTOR.CLINICAL WRITER Work Phone: [facility] Comment on above: Results (Labs ) Start: 11-04-2022 ambulatory Teresa moy MD Work Phone: [facility] Comment on above: Dizziness Start: 09-10-2022 Refill Teresa moy MD Work Phone: [facility] Comment on above: Refill Request Medication Problem Start: 08-28-2022 End: 08-28-2022 Emergency department patient visit RAMÓN MARSH [facility] Start: 08-02-2022 End: 08-02-2022 Emergency department patient visit ALISSA POWERS MD [facility] Start: 06-23-2022 End: 06-23-2022 Emergency department patient visit ALISSA POWERS MD [facility] Start: 06-10-2022 End: 06-10-2022 Patient encounter procedure Nga Ferrer CLINICAL WRITER Work Phone: [facility] Comment on above: Fall, initial encoun ter (Primary Dx); Balance problem; Acute midline low back pain without sciatica Start: 06-08-2022 ambulatory Teresa moy MD Work Phone: [facility] Comment on above: Fall Start: 05-20-2022 Documentation procedure Mammog echo Coordinator [facility] Start: 05-20-2022 Letter encounter Mammography Coordinator [facility] Department Start: 05-20-2022 End: 05-20-2022 Subsequent hospital visit by physician Screen Mammo [facility] Mammogram Comment on above: Encounter for screen ing mammogram for malignant neoplasm of breast [Z12.31] Start: 05-11-2022 End: 05-11-2022 Patient encounter procedure Teresa Aguilar MD Work Phone: [facility] Comment on above: Sprain of ligament o f right ankle, initial encounter (Primary Dx); Encounter for screening mammogram for malignant neoplasm of breast; Screening for HIV (human immunodeficiency virus); Frequent falls; Vitamin D deficiency; Weight loss; Need for hepatitis C screening test Start: 05-05-2022 End: 05-05-2022 Emergency department patient visit TYLER CARRASCO MD [facility] Start: 03-11-2022 ambulatory Teresa moy MD Work Phone: Internal Medicine [facility] [place] Start: 01-29-2022 End: 01-29-2022 Emergency department patient visit JEANETH ELISE MD [facility] Start: 01-08-2022 End: 01-08-2022 Subsequent hospital visit by physician José Miguel [facility] Salcedo Work Phone: Radiology Comment on above: Chronic right should er pain [M25.511, G89.29] Start: 10-02-2020 End: 10-02-2020 Subsequent hospital visit by physician Xr [facility] Work Phone: Radiology Comment on above: Cough [R05] Start: 03-23-2017 End: 03-23-2017 Emergency department patient visit ALISSA POWERS Facility:[facility] Procedures Date Procedure Procedure Detail Performing Clinician Start: 03-01-2025 MRI 3D BRAIN QUANT Dominique coyle Jeffery BORJASC Work Phone: Start: 03-01-2025 Mri brain brain stem w/o contrast material Cora FARAH-C Work Phone: Start: 11-22-2024 PFIZER-iiMonde COVI D-19 VACCINE AGE 12+ YR (COMIRNATY) Nga Ferrer TEACHER TUTOR.CLINICAL WRITER Work Phone: Start: 06-09-2024 Adult depression screening assessment Nga Ferrer TEACHER TUTOR.CLINICAL WRITER Work Phone: Start: 06-05-2024 Noninvasive ear/puls e oximetry multiple deter Nga Ferrer TEACHER TUTOR.CLINICAL WRITER Work Phone: Start: 04-04-2024 Arthrocentesis aspir &/inj major jt/bursa w/us Kimberleejuliano FARAH-C Work Phone: Start: 03-01-2024 Ct upper extremity w /o contrast material Kimberlee FARAH-C Work Phone: Start: 02-18-2024 Radex shoulder compl ete minimum 2 views Kimberlee Brent FARAH-C Work Phone: Start: 12-01-2023 Radiologic exam ches t 2 views Nga Ferrer TEACHER TUTOR.CLINICAL WRITER Work Phone: Start: 11-26-2023 Radex shoulder compl ete minimum 2 views Kimberlee Brent PA-C Work Phone: Start: 10-25-2023 Radex shoulder compl ete minimum 2 views Kimberlee Brent PA-C Work Phone: Start: 10-15-2023 Radex shoulder compl ete minimum 2 views Kimberlee Brent PA-C Work Phone: Start: 10-11-2023 Radex hip unilateral with pelvis 2-3 views Nga Ferrer APRN.CLINICAL WRITER Work Phone: Start: 08-27-2023 Radex shoulder compl ete minimum 2 views Kimberleejuliano Kennedy PA-C Work Phone: Start: 08-18-2023 H/O: artificial joint Presence of right artificial shoulder joint Nicolás Golias PT Work Phone: Start: 08-02-2023 INFLUENZA VACCINE, A GE 6 MO - 64 YR, QUADRIVALENT (AFLURIA, FLULAVAL, FLUZONE) Betzy Alejandro PA-C Work Phone: Start: 08-02-2023 Noninvasive ear/puls e oximetry multiple deter Tiki Loo MD Work Phone: Start: 08-02-2023 Brncdilat rspse spmt ry pre&post-brncdilat admn Tiki Loo MD Work Phone: Start: 05-12-2023 Radex spine lumbosac ral 2/3 views Nga eFrrer APRN.CLINICAL WRITER Work Phone: Start: 11-27-2022 Plain chest X-ray Start: 05-20-2022 End: 05-20-2022 Screening mammography bi 2-view breast inc cad Teresa Aguilar MD Work Phone: Start: 05-11-2022 Adult depression screening assessment Teresa Aguilar MD Work Phone: Start: 01-08-2022 Radex shoulder compl ete minimum 2 views Carolyn Jamison MD Work Phone: Start: 10-02-2020 Radiologic exam ches t 2 views Teresa Aguilar MD Work Phone: Start: 02-16-2020 Mammography Xr Mob Work Phone: Start: 11-21-2019 Colonoscopy Xr Mob Work Phone: Start: 05-10-2018 Adult depression screening assessment Xr Mob Work Phone: Start: 12-10-2017 Lipid 1996 panel - S kristal or Plasma iTki Loo MD Work Phone: Abscess of back (disorder) JEANETH ELISE MD Comment on above: History of Appendectomy JEANETH EDWARDS MD Gallbladder structur e (body structure) JEANETH ELISE MD Herniated structure (morphologic abnormality) JEANETH ELISE MD Hysterectomy JEANETH EDWARDS MD SARS-CoV-2 & FLU Ant igen (Rapid) Plan of Treatment Date Care Activity Detail Author Start: 02-28-2028 [facility] Start: 12-20-2027 [facility] Start: 06-09-2027 [facility] Start: 07-21-2026 [facility] Start: 03-23-2026 Urine microalbumin profile [facility] Start: 02-27-2026 Annual PCP Team Student Counsellor celestino Disease Visit Annual PCP Team Chronic Disease Visit [facility] Start: 02-06-2026 Annual PCP Team Student Counsellor celestino Disease Visit Annual PCP Team Chronic Disease Visit [facility] Start: 02-06-2026 BP Controlled (<130/80) BP Controlle d (<130/80) [facility] Start: 12-19-2025 BP Controlled (<130/80) BP Controlle d (<130/80) [facility] Start: 11-22-2025 Annual PCP Team Student Counsellor celestino Disease Visit Annual PCP Team Chronic Disease Visit [facility] Start: 11-12-2025 DIABETES SCREEN DIABETES SCREEN [facility] Start: 11-12-2025 Diabetes Screening Diabetes Screenin g [facility] Start: 07-11-2025 Screening for malign ant neoplasm of lung Lung Cancer Screening [facility] Start: 07-03-2025 End: 07-03-2025 Patient encounter procedure 07/03/2025 9:00 AM EDT Office Visit Pulmonary Medicine [address] [place] [address] Aysha Lloyd APRN.CLINICAL WRITER [address] [place] [address] 3MO OV Pulmonary Medicine Comment on above: 3MO OV Start: 06-20-2025 End: 06-20-2025 Patient encounter procedure 06/20/2025 9:00 AM EDT Office Visit Neurology [address] [place], [place] [phone] Rose Leiva MD [address] [place], [place] [phone] new patient consult Neurology Comment on above: new patient consult Start: 06-09-2025 Annual PCP Team Student Counsellor celestino Disease Visit Annual PCP Team Chronic Disease Visit [facility] Start: 06-09-2025 Anxiety Screening Anxiety Screening [facility] Start: 06-09-2025 Depression Screening Depression Scre ening [facility] Start: 05-25-2025 Covid-19 Vaccine ( season) Covid-19 Vaccine () [facility] Start: 05-11-2025 DIABETES SCREEN DIABETES SCREEN [facility] Start: 05-07-2025 End: 05-07-2025 OT/PT/Speech Visit 05/07/2025 8:00 AM EDT OT/PT/Speech Visit [facility] [address] [place] [address] Naomie Burch, HAND SEWER SHOES [address] [place] [address] Dx: Falls [R29.6]; Balance disorder [R26.89] [facility] Comment on above: Dx: Falls [R29.6]; B alance disorder [R26.89] Start: 04-30-2025 End: 04-30-2025 OT/PT/Speech Visit 04/30/2025 8:00 AM EDT OT/PT/Speech Visit [facility] [address] [place] [address] Naomie Burch, HAND SEWER SHOES [address] [place] [address] Dx: Falls [R29.6]; Balance disorder [R26.89] [facility] Comment on above: Dx: Falls [R29.6]; B alance disorder [R26.89] Start: 04-25-2025 Annual PCP Team Student Counsellor celestino Disease Visit Annual PCP Team Chronic Disease Visit [facility] Start: 04-25-2025 BP Controlled (<130/80) BP Controlle d (<130/80) [facility] Start: 04-23-2025 End: 04-23-2025 OT/PT/Speech Visit 04/23/2025 9:30 AM EDT OT/PT/Speech Visit [facility] [address] [place] [address] Naomie Burch, HAND SEWER SHOES [address] [place] [address] Dx: Falls [R29.6]; Balance disorder [R26.89] [facility] Comment on above: Dx: Falls [R29.6]; B alance disorder [R26.89] Start: 04-16-2025 End: 04-16-2025 OT/PT/Speech Visit 04/16/2025 11:00 AM EDT OT/PT/Speech Visit [facility] [address] [place] [address] Maia Beasley, PT Dx: Falls [R29.6]; Balance disorder [R26.89] [facility] Comment on above: Dx: Falls [R29.6]; B alance disorder [R26.89] Start: 04-09-2025 End: 04-09-2025 OT/PT/Speech Visit 04/09/2025 9:30 AM EDT OT/PT/Speech Visit [facility] [address] [place] [address] Naomie Burch, HAND SEWER SHOES [address] [place] [address] Dx: Falls [R29.6]; Balance disorder [R26.89] [facility] Comment on above: Dx: Falls [R29.6]; B alance disorder [R26.89] Start: 04-02-2025 End: 04-02-2025 OT/PT/Speech Visit 04/02/2025 8:45 AM EDT OT/PT/Speech Visit [facility] [address] [place] [address] Naomie Burch, HAND SEWER SHOES [address] [place] [address] Dx: Falls [R29.6]; Balance disorder [R26.89] [facility] Comment on above: Dx: Falls [R29.6]; B alance disorder [R26.89] Start: 03-30-2025 End: 03-30-2025 Patient encounter procedure 03/30/2025 10:00 AM EDT Office Visit Pulmonary Medicine [address] [place] [address] Aysha Lloyd APRN.CLINICAL WRITER [address] [place] [address] copd Pulmonary Medicine Comment on above: copd Start: 03-29-2025 BP Controlled (<130/80) BP Controlle d (<130/80) [facility] Start: 03-27-2025 End: 03-27-2025 OT/PT/Speech Visit 03/27/2025 8:00 AM EDT OT/PT/Speech Visit [facility] [address] [place] [address] Naomie Burch, HAND SEWER SHOES [address] [place] [address] Dx: Falls [R29.6]; Balance disorder [R26.89] [facility] Comment on above: Dx: Falls [R29.6]; B alance disorder [R26.89] Start: 03-19-2025 End: 03-19-2025 OT/PT/Speech Visit 03/19/2025 8:45 AM EDT OT/PT/Speech Visit [facility] [address] [place] [address] Maia Beasley, PT Dx: Falls [R29.6]; Balance disorder [R26.89] [facility] Comment on above: Dx: Falls [R29.6]; B alance disorder [R26.89] Start: 03-14-2025 End: 03-14-2025 OT/PT/Speech Visit 03/14/2025 9:00 AM EDT OT/PT/Speech Visit [facility] [address] [place] [address] Nicolás Louis, PT [address] [place] [address] Dx: Falls [R29.6]; Balance disorder [R26.89] [facility] Comment on above: Dx: Falls [R29.6]; B alance disorder [R26.89] Start: 03-01-2025 End: 03-01-2025 Patient encounter procedure 03/01/2025 7:00 AM EDT Appointment Radiology [address] [place], [place] [address] MRI BRAIN W QUANT WO IVCON Radiology Comment on above: MRI BRAIN W QUANT WO IVCON Start: 02-27-2025 End: 05-29-2025 Cobalamin (Vitamin B12) [Mass/volume] in Serum or Plasma [facility] Comment on above: Expected: 02/27/2025 (Approximate), Expires: 05/29/2025 Start: 02-27-2025 End: 05-29-2025 Comprehensive metabolic 2000 panel - Serum or Plasma [facility] Work Phone: Comment on above: Expected: 02/27/2025 (Approximate), Expires: 05/29/2025 Start: 02-27-2025 End: 02-27-2025 Patient encounter procedure 02/27/2025 1:20 PM EDT Office Visit Family [facility] [place] [address] [facility] [place], [place] [phone] Teresa Aguilar MD [address] [facility] [place] [phone] 2 week f/u dizziness [facility] Comment on above: 2 week f/u dizziness Start: 02-20-2025 BP Controlled (<130/80) BP Controlle d (<130/80) [facility] Start: 02-20-2025 Screening for malign ant neoplasm of lung Lung Cancer Screening [facility] Start: 02-20-2025 End: 02-20-2025 Patient encounter procedure [facility] Comment on above: 2 week f/u dizziness Falls [R29.6] Start: 02-19-2025 End: 02-19-2025 Patient encounter procedure 02/19/2025 3:30 PM EDT Appointment Radiology [address] [place], [place] [address] Falls [R29.6] Radiology Comment on above: Falls [R29.6] Start: 02-01-2025 End: 02-01-2025 Patient encounter procedure 02/01/2025 3:40 PM EDT Office Visit Family [facility] [place] [address] [facility] [place] [phone] Teresa Aguilar MD [address] [place], [place] [phone] Follow UP appointment [facility] Comment on above: Follow UP appointmen t Start: 12-19-2024 End: 12-19-2024 Patient encounter procedure 12/19/2024 2:45 PM EDT Office Visit [facility]rology [address] [facility], [place] [phone] Cora Gil PA-C [address] [place], [place] [phone] Dx: Falls [R29.6]; Cognitive changes [R41.89] Neurology Comment on above: Dx: Falls [R29.6]; C ognitive changes [R41.89] Start: 12-19-2024 End: 03-20-2025 Cobalamin (Vitamin B12) [Mass/volume] in Serum or Plasma [facility] Comment on above: Expected: 12/19/2024 , Expires: 03/20/2025 Start: 12-19-2024 End: 03-20-2025 Folate [Mass/volume] in Serum or Plasma [facility] Comment on above: Expected: 12/19/2024 , Expires: 03/20/2025 Start: 12-19-2024 End: 03-20-2025 Hemoglobin A1c in Blood [facility] Comment on above: Expected: 12/19/2024 , Expires: 03/20/2025 Start: 12-19-2024 End: 03-20-2025 Methylmalonate [Moles/volume] in Serum or Plasma [facility] Comment on above: Expected: 12/19/2024 , Expires: 03/20/2025 Start: 12-19-2024 End: 03-20-2025 PROT ELECT SERUM WITH MERY AND INTERP [facility] Comment on above: Expected: 12/19/2024 , Expires: 03/20/2025 Start: 12-19-2024 End: 03-20-2025 SYPHILIS TREPONEMAL W/REFLEX [facility] Comment on above: Expected: 12/19/2024 , Expires: 03/20/2025 Start: 12-19-2024 End: 03-20-2025 Thyrotropin [Units/volume] in Serum or Plasma [facility] Comment on above: Expected: 12/19/2024 , Expires: 03/20/2025 Start: 12-19-2024 End: 03-20-2025 TOXICOLOGY PANEL BLD TOXICOLOGY PANEL BLD Lab Routine Cognitive changes Expected: 12/19/2024, Expires: 03/20/2025 [facility] Comment on above: Expected: 12/19/2024 , Expires: 03/20/2025 Start: 11-30-2024 Annual PCP Team Student Counsellor celestino Disease Visit Annual PCP Team Chronic Disease Visit [facility] Start: 11-30-2024 BP Controlled (<130/80) BP Controlle d (<130/80) [facility] Start: 11-18-2024 Advance Directive Discussion Advance Directive Discussion [facility] Start: 11-18-2024 Screening for osteoporosis Bone Density Screening [facility] Start: 11-15-2024 End: 11-15-2024 Patient encounter procedure 11/15/2024 11:20 AM EST Office Visit [facility] [address] [place] [address] Nga Ferrer APRN.CLINICAL WRITER [address] [facility] [place] [address] Discuss getting a letter for housing due to disability back [facility] Comment on above: Discuss getting a le tter for housing due to disability back Start: 11-11-2024 Medicare Annual Well ness Visit Medicare Annual Wellness Visit [facility] Start: 10-11-2024 Annual PCP Team Student Counsellor celestino Disease Visit Annual PCP Team Chronic Disease Visit [facility] Start: 09-26-2024 End: 09-26-2024 Patient encounter procedure 09/26/2024 9:00 AM EST Office Visit Neurology [address] [facility] [place] [address] Coar Gil PA-C [address] [place] [address] New patient Neurology Comment on above: New patient Start: 09-15-2024 Screening for malign ant neoplasm of lung Lung Cancer Screening [facility] Start: 08-30-2024 End: 08-30-2024 Patient encounter procedure 08/30/2024 11:30 AM EST Office Visit Neurology [address] [facility] [place] [address] Cora Gil PA-C [address] [place], [place] [id number] Falls [R29.6]; Cognitive changes [R41.89] Neurology Comment on above: Falls [R29.6]; Cogni tive changes [R41.89] Start: 08-18-2024 BP Controlled (<130/80) BP Controlle d (<130/80) [facility] Start: 08-16-2024 End: 08-16-2024 Patient encounter procedure 08/16/2024 2:30 PM EST Office Visit Pulmonary Medicine [address] [place] [address] Betzy Alejandro PA-C [address] [place] [address] 4 WK F/U COPD Pulmonary Medicine Comment on above: 4 WK F/U COPD Start: 08-02-2024 End: 08-02-2024 Patient encounter procedure 08/02/2024 4:20 PM EST Appointment Radiology [address] [place] [address] Cognitive impairment, mild, so stated [G31.84] MRI BRAIN WO/W IVCON*DEMENTIA PROTOCOL 3T Radiology Comment on above: Cognitive impairment , mild, so stated [G31.84] MRI BRAIN WO/W IVCON*DEMENTIA PROTOCOL 3T Start: 08-02-2024 BP Controlled (<130/80) BP Controlle d (<130/80) [facility] Start: 07-21-2024 BP Controlled (<130/80) BP Controlle d (<130/80) [facility] Start: 07-20-2024 End: 07-20-2024 Patient encounter procedure 07/20/2024 9:20 AM EST Appointment Radiology [address] [place] [address] Cognitive impairment, mild, so stated [G31.84] Radiology Comment on above: Cognitive impairment , mild, so stated [G31.84] Start: 06-30-2024 End: 06-30-2024 Patient encounter procedure 06/30/2024 1:20 PM EDT Appointment Cat Scan [address] [place] [id number] Lung nodules [R91.8] Cat Scan Comment on above: Lung nodules [R91.8] Start: 06-30-2024 End: 06-30-2024 Patient encounter procedure 06/30/2024 11:20 AM EDT Appointment Radiology [address] [place] [address] Cognitive impairment, mild, so stated [G31.84] Radiology Comment on above: Cognitive impairment , mild, so stated [G31.84] Start: 06-19-2024 End: 06-19-2024 Patient encounter procedure 06/19/2024 3:00 PM EDT Appointment Radiology [address] [place] [address] Cognitive impairment, mild, so stated [G31.84] Radiology Comment on above: Cognitive impairment , mild, so stated [G31.84] Start: 06-09-2024 End: 06-09-2024 Patient encounter procedure 06/09/2024 9:20 AM EDT Office Visit [facility] [address] [facility] [place] [address] Nga Ferrer, CARLENE.CLINICAL WRITER [address] [facility] [place] [address] trouble remembering things x 1 month, pt requested this day for appt. [facility] Comment on above: trouble remembering things x 1 month, pt requested this day for appt. Start: 06-05-2024 End: 06-05-2024 ambulatory 06/05/2024 9:00 AM EDT Procedure PULM LAB [facility] [address] [place] [address] Wstr, Pulm Lab [facility] [address] [facility] [place] [address] Requires oxygen therapy [Z99.81] PULM LAB [facility] Comment on above: Requires oxygen ther apy [Z99.81] Start: 05-30-2024 End: 05-30-2024 Patient encounter procedure 05/30/2024 1:00 PM EDT Office Visit [facility] [address] [place] [address] Josh Mirza APRN.CLINICAL WRITER [address] [place] [address] oxygen f/u, needs 6 minute walk test [facility] Comment on above: oxygen f/u, needs 6 minute walk test Start: 05-21-2024 ANNUAL PCP TEAM PRETZEL TWISTER CELESTINO DISEASE VISIT ANNUAL PCP TEAM CHRONIC DISEASE VISIT [facility] Start: 05-16-2024 End: 05-16-2024 Patient encounter procedure 05/16/2024 2:00 PM EDT Office Visit [facility] [address] [place], [place] [id number] Teresa Aguilar MD [address] [place], [place] [id number] Memory Issues (Patient forgot why she was calling) [facility] Comment on above: Memory Issues (Patie nt forgot why she was calling) Start: 05-14-2024 Covid-19 Vaccine ( season) Covid-19 Vaccine ( season) [facility] Start: 05-14-2024 Influenza vaccination Influenza Vacc ine (#1) [facility] Start: 05-12-2024 End: 05-12-2024 Patient encounter procedure 05/12/2024 3:45 PM EDT Office Visit Orthopedics [address] [facility] [address] [place] [id number] Carolyn Jamison MD [address] [facility] [address] [place] [address] Right shoulder pain-surgery 08/[address] Jamison [facility] Comment on above: Right shoulder pain- surgery 08/[address] Jamison Start: 05-12-2024 ANNUAL PCP TEAM PRETZEL TWISTER CELESTINO DISEASE VISIT ANNUAL PCP TEAM CHRONIC DISEASE VISIT [facility] Start: 05-02-2024 End: 05-02-2024 Patient encounter procedure 05/02/2024 10:00 AM EDT Office Visit Pulmonary Medicine [address] [place], [place] [id number] Aysha Lloyd APRN.CLINICAL WRITER [address] [place] [address] 4 WK F/U COPD Pulmonary Medicine Comment on above: 4 WK F/U COPD Start: 04-28-2024 End: 04-28-2024 Patient encounter procedure 04/28/2024 2:00 PM EDT Office Visit Orthopedics [address] [place] [address] Kimberlee Kennedy PA-C [address] [place] [address] Right shoulder pain-surgery 08/[address] Jamison [facility] Comment on above: Right shoulder pain- surgery 08/[address] Jamison Start: 04-22-2024 End: 04-22-2024 Patient encounter procedure 04/22/2024 8:40 AM EDT Office Visit [facility] [address] [place] [address] Teresa Aguilar MD [address] [facility] [place] [address] follow up oxygen use per patient insurance [facility] Comment on above: follow up oxygen use per patient insurance Start: 04-04-2024 End: 04-04-2024 Patient encounter procedure 04/04/2024 2:00 PM EDT Appointment Radiology [address] [place] [address] Rt Shoulder Aspiration Radiology Comment on above: Rt Shoulder Aspirati on Start: 03-29-2024 End: 03-29-2024 Patient encounter procedure 03/29/2024 3:00 PM EDT Office Visit Pulmonary Medicine [address] [place] [address] Betzy Alejandro PA-C [address] [place] [address] COPD follow up Pulmonary Medicine Comment on above: COPD follow up Start: 03-15-2024 End: 03-15-2024 ambulatory 03/15/2024 2:30 PM EDT [facility] [address] [place] [address] Lab for to Drain Fluid in [facility] Comment on above: Lab for to Drain Flu id in Rt Shoulder Start: 03-06-2024 Shingrix Vaccine (2 of 2) Shingrix Vaccine (2 of 2) [facility] Start: 03-01-2024 End: 03-01-2024 Patient encounter procedure 03/01/2024 8:20 AM EDT Appointment Cat Scan [address] [place] [address] 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] Cat Scan Comment on above: 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] Start: 02-21-2024 End: 02-21-2024 Patient encounter procedure Cat Scan Comment on above: 3 month f/u LDCT 3 month f/u LCS Start: 02-18-2024 End: 05-19-2024 Bacteria identified in Body fluid by Culture BODY FLUID CULTURE AND GRAM STAIN Microbiology Routine Status post reverse total replacement of right shoulder Right shoulder pain, unspecified chronicity Expected: 02/18/2024, Expires: 05/19/2024 [facility] Comment on above: Expected: 02/18/2024 , Expires: 05/19/2024 Start: 02-18-2024 End: 05-19-2024 C reactive protein [Mass/volume] in Serum or Plasma C-REACTIVE PROTEIN Lab Routine Status post reverse total replacement of right shoulder Right shoulder pain, unspecified chronicity Expected: 02/18/2024, Expires: 05/19/2024 [facility] Comment on above: Expected: 02/18/2024 , Expires: 05/19/2024 Start: 02-18-2024 End: 05-19-2024 CBC W Auto Differential panel - Blood COMPLETE BLOOD COUNT AND DIFFERENTIAL Lab Routine Status post reverse total replacement of right shoulder Right shoulder pain, unspecified chronicity Expected: 02/18/2024, Expires: 05/19/2024 [facility] Work Phone: Comment on above: Expected: 02/18/2024 , Expires: 05/19/2024 Start: 02-18-2024 End: 05-19-2024 Erythrocyte sedimentation rate SEDIMENTATION RATE, WESTERGREN Lab Routine Status post reverse total replacement of right shoulder Right shoulder pain, unspecified chronicity Expected: 02/18/2024, Expires: 05/19/2024 [facility] Comment on above: Expected: 02/18/2024 , Expires: 05/19/2024 Start: 02-02-2024 End: 02-02-2024 Patient encounter procedure Pulmonary Medicine Comment on above: COPD follow up Start: 01-28-2024 End: 01-28-2024 Patient encounter procedure Radiology Comment on above: R shoulder R-RTSA 08/04/23 Start: 01-14-2024 End: 01-14-2024 Patient encounter procedure Radiology Comment on above: R shoulder R-RTSA 08/04/23 Start: 11-13-2023 ANNUAL PCP TEAM PRETZEL TWISTER CELESTINO DISEASE VISIT ANNUAL PCP TEAM CHRONIC DISEASE VISIT [facility] Start: 09-13-2023 Behavioral Health Screening Behavioral Health Screening [facility] Start: 09-13-2023 [facility] Start: 06-10-2023 ANNUAL PCP TEAM PRETZEL TWISTER CELESTINO DISEASE VISIT ANNUAL PCP TEAM CHRONIC DISEASE VISIT [facility] Start: 05-20-2023 Mammography [facility] Start: 05-20-2023 Screening for malign ant neoplasm of breast Mammogram Screening [facility] Start: 05-14-2023 Covid-19 Vaccine () Covid-19 Vaccine () [facility] Start: 05-14-2023 Influenza vaccination C [facility] Start: 05-11-2023 Adult depression screening assessment DEPRESSION SCREENING [facility] Start: 05-11-2023 ANNUAL PCP TEAM PRETZEL TWISTER CELESTINO DISEASE VISIT ANNUAL PCP TEAM CHRONIC DISEASE VISIT [facility] Start: 01-31-2023 DIABETES SCREEN DIABETES SCREEN [facility] Start: 12-10-2022 Lipid 1996 panel - S kristal or Plasma Lipid Screening [facility] Start: 12-10-2022 Lipid panel Lipid Screening [facility] Start: 12-10-2022 LIPID SCREEN LIPID SCREEN [facility] Start: 11-27-2022 [facility] Start: 11-20-2022 Colonoscopy COLONOSCOPY [facility] Start: 11-20-2022 COLORECTAL CANCER SCREENING COLORECTAL CANCER SCREENING [facility] Start: 11-20-2022 Screening for malign ant neoplasm of colon [facility] Start: 01-01-2023 DEPRESSION ASSESSMENT DEPRESSION ASS ESSMENT [facility] Start: 05-14-2022 Influenza vaccination C [facility] Start: 01-02-2022 COVID-19 VACCINE (4 - Booster for Moderna series) COVID-19 VACCINE (4 - Booster for Moderna series) [facility] Start: 10-29-2021 COVID-19 VACCINE (4 - Booster for Moderna series) COVID-19 VACCINE (4 - Booster for Moderna series) [facility] Start: 10-29-2021 COVID-19 VACCINE (4 - Moderna series) COVID-19 VACCINE (4 - Moderna series) [facility] Start: 10-24-2021 ANNUAL PCP TEAM PRETZEL TWISTER CELESTINO DISEASE VISIT ANNUAL PCP TEAM CHRONIC DISEASE VISIT [facility] Start: 09-13-2021 DEPRESSION ASSESSMENT DEPRESSION ASS ESSMENT [facility] Start: 02-15-2021 Mammography MAMMOGRAM [facility] Start: 2019 RSV Vaccine (1 - 1-d ose 60+ series) RSV Vaccine (1 - 1-dose 60+ series) [facility] Start: 2019 RSV Vaccine (1 - Ris k 60-74 years 1-dose series) RSV Vaccine (1 - Risk 60-74 years 1-dose series) [facility] Start: 05-10-2019 Adult depression screening assessment DEPRESSION SCREENING [facility] Start: 11-18-2009 SHINGRIX VACCINE (1 of 2) SHINGRIX VACCINE (1 of 2) [facility] Start: 09-17-2006 PNEUMOCOCCAL (2 - PCV) PNEUMOCOCCAL (2 - PCV) [facility] Start: 09-17-2006 Pneumococcal vaccination [facility] Start: 09-17-2006 Pneumococcal Vaccine : 50+ (2 of 2 - PCV) Pneumococcal Vaccine: 50+ (2 of 2 - PCV) [facility] Start: 11-18-2004 COLOGUARD (FIT-DNA) COLOGUARD (FIT-D NA) [facility] Start: 11-18-[address] [facility] Start: 11-18-2004 FECAL OCCULT BLOOD FECAL OCCULT BLOO D [facility] Start: 11-18-2004 Screening for malign ant neoplasm of colon [facility] Start: 11-18-2004 SIGMOIDOSCOPY SIGMOIDOSCOPY [facility] Start: 11-18-1977 Anxiety Screening Anxiety Screening [facility] Start: 11-18-1977 BP Controlled (<130/80) BP Controlle d (<130/80) [facility] Start: 11-18-1977 Depression Screening Depression Scre leighton [facility] Start: 11-18-1977 HEPATITIS C SCREENING HEPATITIS C SC MONIKA [facility] Start: 11-18-1977 HIV SCREENING HIV SCREENING [facility] Start: 11-18-1977 SPIROMETRY SPIROMETRY [facility] Bacteria identified in Unspecified specimen by Respiratory culture RESPIRATORY CULTURE AND STAIN Microbiology Routine Persistent cough for 3 weeks or longer Ordered: 07/27/2024 [facility] Work Phone: Comment on above: Ordered: 07/27/2024 End: 05-02-2026 CT Chest for screening WO contrast CT LUNG SCREEN WO IVCON Radiology Routine Encounter for screening for lung cancer Tobacco use current 1 Occurrences starting 04/02/2025 until 05/02/2026 [facility] Work Phone: Comment on above: 1 Occurrences starti ng 04/02/2025 until 05/02/2026 End: 12-08-2024 CT Chest WO contrast CT CHEST WO IVCON Radiology Routine Lung nodules 1 Occurrences starting 11/09/2023 until 12/08/2024 [facility] Work Phone: Comment on above: 1 Occurrences starti ng 11/09/2023 until 12/08/2024 CT Chest WO contrast CT CHEST WO IVCON Radiology Routine Lung nodules 02/21/2024 8:48 AM EDT [facility] Work Phone: End: 07-27-2025 CT Chest WO contrast CT CHEST WO IVCON Radiology Routine Lung nodules 1 Occurrences starting 06/27/2024 until 07/27/2025 [facility] Work Phone: Comment on above: 1 Occurrences starti ng 06/27/2024 until 07/27/2025 CT Chest WO contrast CT CHEST WO IVCON Radiology Routine Lung nodules 07/11/2024 2:34 PM EDT [facility] Work Phone: End: 03-19-2025 CT Shoulder - right WO contrast CT SHOULDER WO IVCON RIGHT Radiology Routine Status post reverse total replacement of right shoulder Right shoulder pain, unspecified chronicity 1 Occurrences starting 02/18/2024 until 03/19/2025 [facility] Comment on above: 1 Occurrences starti ng 02/18/2024 until 03/19/2025 End: 06-30-2025 DBT Breast - bilateral screening HIPOLITO SCREENING W DUONG Radiology Routine Encounter for screening mammogram for breast cancer 1 Occurrences starting 05/31/2024 until 06/30/2025 [facility] Work Phone: Comment on above: 1 Occurrences starti ng 05/31/2024 until 06/30/2025 End: 03-19-2025 Guidance for injection of Shoulder IMAGING GUIDED ASP/INJ SHOULDER JT/BURSA RIGHT Radiology Routine Status post reverse total replacement of right shoulder Right shoulder pain, unspecified chronicity 1 Occurrences starting 02/18/2024 until 03/19/2025 [facility] Comment on above: 1 Occurrences starti ng 02/18/2024 until 03/19/2025 Inject si joint arthrgrphy&/anes/steroid w/fatmata INJECTION PROCEDURE FOR SACROILIAC Procedures Routine SI joint arthritis Ordered: 06/18/2023 [facility] Work Phone: Comment on above: Ordered: 06/18/2023 Inject si joint arthrgrphy&/anes/steroid w/fatmata INJECTION PROCEDURE FOR SACROILIAC Procedures Routine Narrowing of lumbar intervertebral disc space SI joint arthritis 1 Occurrences starting 08/18/2023 [facility] Work Phone: Comment on above: 1 Occurrences starti ng 08/18/2023 End: 06-29-2024 LUNG DIFFUSION CAPACITY (DLCO) LUNG DIFFUSION CAPACITY (DLCO) PFT Routine Chronic obstructive pulmonary disease, unspecified COPD type (HCC) 1 Occurrences starting 05/31/2023 until 06/29/2024 [facility] Work Phone: Comment on above: 1 Occurrences starti ng 05/31/2023 until 06/29/2024 End: 06-29-2024 LUNG VOLUMES LUNG VOLUMES PFT Routine Chronic obstructive pulmonary disease, unspecified COPD type (HCC) 1 Occurrences starting 05/31/2023 until 06/29/2024 [facility] Work Phone: Comment on above: 1 Occurrences starti ng 05/31/2023 until 06/29/2024 End: 07-22-2024 HIPOLITO SCREENING HIPOLITO SCREENING Radiology Routine Encounter for screening mammogram for breast cancer 1 Occurrences starting 06/23/2023 until 07/22/2024 [facility] Work Phone: Comment on above: 1 Occurrences starti ng 06/23/2023 until 07/22/2024 Microorganism identi fied in Unspecified specimen by Culture AFB CULT + STAIN Microbiology Routine Persistent cough for 3 weeks or longer Ordered: 07/27/2024 [facility] Comment on above: Ordered: 07/27/2024 End: 07-09-2025 MR Brain WO and W contrast IV MRI BRAIN WO/W IVCON Radiology Routine Cognitive impairment, mild, so stated 1 Occurrences starting 06/09/2024 until 07/09/2025 [facility] Work Phone: Comment on above: 1 Occurrences starti ng 06/09/2024 until 07/09/2025 End: 01-18-2026 MR Brain WO contrast MRI BRAIN W QUANT WO IVCON Radiology Routine Falls Cognitive impairment, mild, so stated 1 Occurrences starting 12/19/2024 until 01/18/2026 [facility] Work Phone: Comment on above: 1 Occurrences starti ng 12/19/2024 until 01/18/2026 End: 01-18-2026 MR Cervical spine WO contrast MRI CERVICAL SPINE WO IVCON Radiology Routine Falls Spinal stenosis of cervical region 1 Occurrences starting 12/19/2024 until 01/18/2026 [facility] Comment on above: 1 Occurrences starti ng 12/19/2024 until 01/18/2026 End: 01-18-2026 MR Lumbar spine WO contrast MRI LUMBAR SPINE WO IVCON Radiology Routine Falls Acute low back pain, unspecified back pain laterality, unspecified whether sciatica present Spinal stenosis of lumbar region, unspecified whether neurogenic claudication present 1 Occurrences starting 12/19/2024 until 01/18/2026 [facility] Comment on above: 1 Occurrences starti ng 12/19/2024 until 01/18/2026 End: 01-18-2026 MR Thoracic spine WO contrast MRI THORACIC SPINE WO IVCON Radiology Routine Falls 1 Occurrences starting 12/19/2024 until 01/18/2026 [facility] Comment on above: 1 Occurrences starti ng 12/19/2024 until 01/18/2026 End: 01-18-2026 MR Unspecified body region 3D post processing MRI 3D BRAIN QUANT Radiology Routine Cognitive changes Cognitive impairment, mild, so stated 1 Occurrences starting 12/19/2024 until 01/18/2026 [facility] Comment on above: 1 Occurrences starti ng 12/19/2024 until 01/18/2026 End: 06-29-2024 OXIMETRY WITH AMBULATION OXIMETRY WITH AMBULATION PFT Routine Chronic obstructive pulmonary disease, unspecified COPD type (HCC) 1 Occurrences starting 05/31/2023 until 06/29/2024 [facility] Work Phone: Comment on above: 1 Occurrences starti ng 05/31/2023 until 06/29/2024 Patient Education Coronavirus Di sease 2019 (COVID-19): Caring for Yourself or Others ED Influenza (Adult) [facility] Work Phone: Patient referral [facility] Work Phone: End: 06-10-2024 Radex sacrum & coccyx minimum 2 views XR SACRUM/COCCYX 3V AP/LAT Radiology Routine Tail bone pain 1 Occurrences starting 05/12/2023 until 06/10/2024 [facility] Work Phone: Comment on above: 1 Occurrences starti ng 05/12/2023 until 06/10/2024 Radex sacrum & coccy x minimum 2 views XR SACRUM/COCCYX 3V AP/LAT Radiology Routine Tail bone pain 05/12/2023 10:49 AM EDT [facility] Work Phone: End: 06-10-2024 Radex spine lumbosacral 2/3 views XR LUMBAR GENERAL 3V AP/LAT/L5-S1 Radiology Routine Tail bone pain 1 Occurrences starting 05/12/2023 until 06/10/2024 [facility] Work Phone: Comment on above: 1 Occurrences starti ng 05/12/2023 until 06/10/2024 Radex spine lumbosac ral 2/3 views XR LUMBAR GENERAL 3V AP/LAT/L5-S1 Radiology Routine Tail bone pain 05/12/2023 10:49 AM EDT [facility] Work Phone: End: 04-10-2023 Screening mammography bi 2-view breast inc cad HIPOLITO SCREENING Radiology Routine Encounter for screening mammogram for breast cancer 1 Occurrences starting 03/11/2022 until 04/10/2023 [facility] Work Phone: Comment on above: 1 Occurrences starti ng 03/11/2022 until 04/10/2023 End: 06-10-2023 Screening mammography bi 2-view breast inc cad HIPOLITO SCREENING Radiology Routine Encounter for screening mammogram for malignant neoplasm of breast 1 Occurrences starting 05/11/2022 until 06/10/2023 [facility] Work Phone: Comment on above: 1 Occurrences starti ng 05/11/2022 until 06/10/2023 End: 06-24-2025 SIX MINUTE WALK SIX MINUTE WALK PFT Routine Requires oxygen therapy 1 Occurrences starting 05/25/2024 until 06/24/2025 [facility] Work Phone: Comment on above: 1 Occurrences starti ng 05/25/2024 until 06/24/2025 End: 06-29-2024 SPIROMETRY WITH DILATOR IF OBSTRUCTED SPIROMETRY WITH DILATOR IF OBSTRUCTED PFT Routine Chronic obstructive pulmonary disease, unspecified COPD type (HCC) 1 Occurrences starting 05/31/2023 until 06/29/2024 [facility] Work Phone: Comment on above: 1 Occurrences starti ng 05/31/2023 until 06/29/2024 XR Shoulder - right 3 Views XR SHOULDER GENERAL 3V OR MORE AP/TRUE AP/OTHER RIGHT Radiology Routine Chronic right shoulder pain 1 Occurrences starting 10/21/2023 [facility] Work Phone: Comment on above: 1 Occurrences starti ng 10/21/2023 XR Shoulder - right 3 Views XR SHOULDER GENERAL 3V OR MORE AP/TRUE AP/OTHER RIGHT Radiology Routine Chronic right shoulder pain 1 Occurrences starting 01/03/2024 [facility] Work Phone: Comment on above: 1 Occurrences starti ng 01/03/2024 End: 06-10-2024 XR SHOULDER GENERAL 3V OR MORE AP/TRUE AP/OTHER LEFT XR SHOULDER GENERAL 3V OR MORE AP/TRUE AP/OTHER LEFT Radiology Routine Acute pain of left shoulder 1 Occurrences starting 05/12/2023 until 06/10/2024 [facility] Work Phone: Comment on above: 1 Occurrences starti ng 05/12/2023 until 06/10/2024 XR SHOULDER GENERAL 3V OR MORE AP/TRUE AP/OTHER LEFT XR SHOULDER GENERAL 3V OR MORE AP/TRUE AP/OTHER LEFT Radiology Routine Acute pain of left shoulder 05/12/2023 10:49 AM EDT [facility] Work Phone: End: 01-23-2024 XR SHOULDER GENERAL 3V OR MORE AP/TRUE AP/OTHER RIGHT XR SHOULDER GENERAL 3V OR MORE AP/TRUE AP/OTHER RIGHT Radiology Routine Right shoulder pain, unspecified chronicity 1 Occurrences starting 12/24/2022 until 01/23/2024 [facility] Work Phone: Comment on above: 1 Occurrences starti ng 12/24/2022 until 01/23/2024 XR SHOULDER GENERAL 3V OR MORE AP/TRUE AP/OTHER RIGHT XR SHOULDER GENERAL 3V OR MORE AP/TRUE AP/OTHER RIGHT Radiology Routine Chronic right shoulder pain 1 Occurrences starting 08/23/2023 [facility] Work Phone: Comment on above: 1 Occurrences starti ng 08/23/2023 [facility] Immunizations Immunization Date Immunization Notes Care Provider [facility] 02-27-2025 pneumococcal conjuga te (PCV20) vaccine, 20 valent (PREVNAR 20) Teresa Aguilar MD Work Phone: [address]17-2025 pneumococcal Conjuga te, unspecified formulation Teresa Aguilar MD Work Phone: [facility] 11-22-2024 COVID-19 vaccine, ag e 12+ yr (Moncai-iiMonde COMNAT) Nga Ferrer APRN.CLINICAL WRITER Work Phone: [facility] 01-10-2024 zoster vaccine recombinant Teresa Aguilar MD Work Phone: [facility] 08-02-2023 influenza, injectabl e, quadrivalent, contains preservative Pulm Wstr Work Phone: [facility] 08-02-2023 influenza virus vacc ine, unspecified formulation Carolyn Jamison MD Work Phone: [facility] 01-15-2021 COVID-19 vaccine, fu ll dose (MODERNA) [facility] Work Phone: [facility] Work Phone: 10-12-2018 influenza, injectabl e, quadrivalent, contains preservative [employer] Work Phone: [facility] 10-12-2018 influenza virus vacc ine, unspecified formulation Tiki Loo MD Work Phone: [facility] 06-25-2016 influenza, injectabl e, quadrivalent, contains preservative [employer] Work Phone: [facility] Work Phone: 03-23-2016 tetanus toxoid, redu adan diphtheria toxoid, and acellular pertussis vaccine, adsorbed [employer] Work Phone: [facility] 09-15-2011 influenza virus vacc ine, unspecified formulation [facility] Work Phone: [facility] Work Phone: 06-24-2010 influenza virus vacc ine, unspecified formulation [employer] Work Phone: [facility] 02-26-2008 diphtheria and tetan us toxoids, adsorbed for pediatric use [employer] Work Phone: [facility] Work Phone: 09-17-2005 pneumococcal polysaccharide vaccine, 23 valent [facility] [employer] Work Phone: [facility] Work Phone: Payers Date Payer Category Payer Medicare MEDICARE [id number] 2024 Medicare [id number] 2022 Self-pay [id number] 2022 Unknown [id number] 2019 Private Health Insurance 25d [id number] 2017 Medicaid [facility] MEDICAID [facility] COMM[employer]AN MEDICAID [id number] 2017-Present [phone] [address] [place] [address] Medicaid [id number] 2017 Medicaid [id number] 2013 Unknown [id number] 1959 Unknown [id number] 1959 Unknown [id number] 1959 Unknown [id number] 1959 Unknown [id number] 1959 Unknown [id number] 1959 Unknown [id number] Unknown [id number] Social History Date Type Detail Facility Start: 10-02-1972 End: 06-05-2024 Tobacco smoking status NHIS Smokes tobacco daily [facility] Work Phone: Start: 10-02-1972 History of tobacco use Cigarette Smo ker [facility] Start: 09-01-2021 End: 02-27-2025 Alcohol intake Current non-drinker of alcohol (finding) [facility] Start: 1960 Sex Assigned At Not on file C [facility] Start: 09-02-2020 End: 06-10-2022 Exposure to SARS-CoV-2 (event) Not sure [facility] Start: 08-21-2018 Tobacco smoking status Heavy t obacco smoker (finding) [facility] Sex Assigned At [facility] Start: 05-11-2022 End: 08-13-2023 Cigarettes smoked current (pack per day) - Reported 0.5 [facility] Start: 05-11-2022 End: 06-05-2024 Tobacco use and exposure Smokeless tobacco non-user [facility] Start: 11-27-2022 Tobacco smoking stat us NHIS Unknown if ever smoked [facility] Start: 08-29-2020 None [facility] Start: 12-21-2018 Cigarettes [facility] Start: 1960 Sex Assigned At Female [facility] Start: 03-01-2023 End: 08-13-2023 Tobacco use panel [facility] Adult Depression Screening Assessment 0 [facility] Start: 05-31-2023 Tobacco Comment 2 ppd in past [facility] History of tobacco use Passive smoker [facility] Start: 02-21-2024 Tobacco Comment start age 11, average of 1.5 PPD since, currently smoking [facility] Start: 03-29-2024 Tobacco Comment start age 11, average of 1.5 PPD since, currently smoking 0.5 PPD [facility] Start: 10-22-2005 Sex Female (finding) [facility] Medical Equipment Procedure Code Equipment Code Equipment Origin al Text Equipment Identifier Dates TEMITOPE CARMONA LG FDA Start: 12-19-2018 TEMITOPE CARMONA FDA Start: 12-19-2018 TEMITOPE CARMONA FDA Start: 12-19-2018 RELOAD,BLUE 60 FDA Start: 12-19-2018 RELOAD,BLUE 60 FDA Start: 12-19-2018 RELOAD,BLUE 60 FDA Start: 12-19-2018 CLEMENTINA ANNA FDA Start: 12-19-2018 Insert Ar Small [id number] Neutral Eplus - [id number] Start: 08-04-2023 Shell Humeral Altivate Reverse Small Shell Sz 1f270lw - [id number] Start: 08-04-2023 Baseplate Rsp P2 30mm Glenoid Sterile - [id number] Start: 08-04-2023 Screw Rsp 5mm 26 mm Bone Lock Glenoid Baseplate Shoulder - [id number] Start: 08-04-2023 Head Rsp 36mm Neutral Glenoid Retain Screw - [id number] Start: 08-04-2023 Screw Rsp 5mm 18 mm Bone Lock Glenoid Baseplate Shoulder - [id number] Start: 08-04-2023 Screw Rsp 5mm 18 mm Bone Lock Glenoid Baseplate Shoulder - [id number] Start: 08-04-2023 Screw Rsp 5mm 22 mm Bone Lock Glenoid Baseplate Shoulder - [id number] Start: 08-04-2023 Functional Status Date Assessment Result Facility 09-07-2024 Functional Status Up ad kaitlynn [facility] [place] 09-07-2024 Functional Status Standard Safet y ID band on, Allergy Band on, Call device within reach, Bed in low position, Wheels locked, Bedside Cart Locked, Safety level maintained [facility] 05-17-2024 Functional Status Room check performed [facility] 12-30-2023 Functional Status Up ad kaitlynn [facility] 09-28-2023 Functional Status Standard Safet y ID band on, Call device within reach, Bed in low position, Wheels locked, Upper/Half-Length side-rails up, Phone within reach [facility] 08-05-2023 Are you deaf, or do you have serious difficulty hearing No 08/05/2023 1:45 PM Bradley Greenfield, ASHLEE No [facility] 08-05-2023 Are you blind, or do you have serious difficulty seeing, even when wearing glasses No 08/05/2023 1:45 PM Bradley Greenfield, RN No [facility] 08-05-2023 Do you have serious difficulty walking or climbing stairs No 08/05/2023 1:45 PM Bradley Greenfield, ASHLEE No [facility] 08-05-2023 Do you have difficul ty dressing or bathing Yes 08/05/2023 1:45 PM Bradley Greenfield, RN Yes [facility] 08-05-2023 Because of a physica l, mental, or emotional condition, do you have difficulty doing errands alone such as visiting a physician's office or shopping Yes 08/05/2023 1:45 PM Bradley Greenfield, RN Yes [facility] 06-26-2023 Functional Status ID band on [facility] 04-15-2023 Functional Status ID band on, Call device within reach, Bed in low position, Wheels locked [facility] 08-28-2022 Functional Status Resting [facility] 08-02-2022 Functional Status ID band on, Allergy Band on, Call device within reach, Bed in low position, Wheels locked, Upper/Half-Length side-rails up, Phone within reach, personal items within reach [facility] 06-23-2022 Functional Status Repositions self [facility] 06-23-2022 Functional Status Room check performed [facility] 05-05-2022 Functional Status ID band on, Call device within reach, Bed in low position, Wheels locked, Upper/Half-Length side-rails up [facility] 01-29-2022 Functional Status [facility] randytal [facility] Mental Status Date Assessment Result Facility 09-07-2024 Mental Status Orientation Oriented x 4 [facility] 09-07-2024 Mental Status [facility] 05-17-2024 Mental Status Oriented x 4 [facility] 12-30-2023 Mental Status Orientation Oriented x 4 [facility] 09-28-2023 Mental Status Orientation Oriented x 4 [facility] 08-05-2023 Because of a physica l, mental, or emotional condition, do you have serious difficulty concentrating, remembering, or making decisions Yes 08/05/2023 1:45 PM EST Bradley Shafer, ASHLEE Yes [facility] 06-26-2023 Mental Status Orientation Oriented x 4 [facility] 04-15-2023 Mental Status Oriented x 4 [facility] 08-28-2022 Mental Status Orientation Oriented x 4 [facility] 08-02-2022 Mental Status Oriented x 4 [facility] 06-23-2022 Mental Status Orientation Oriented x 4 [facility] 06-23-2022 Mental Status [facility] 05-05-2022 Mental Status Oriented x 4 [facility] 01-29-2022 Mental Status [facility] Clinical Notes 10-02-2020 to 03-30-2025 Patient InstructionsAysha Lloyd APRN.CLINICAL WRITER - 03/30/2025 10:00 AM Maia Joseph, PT - 03/19/2025 8:41 AM EDTGNicolás arriaza, PT - 03/14/2025 9:47 AM EDTPatient Instructions Note Date & Type Note Facility 03-30-2025 Instructions Aysha Lloyd APRN.NEAL - 03/30/2025 10:19 AM EDT Stop using Advair. Start using Trelegy, 1 puff once a day. Rinse your mouth out well after use. Continue to use Albuterol as needed. If you get to the pharmacy and Trelegy is not affordable, please call the office and let us know. We can resume using Advair but also add Spiriva so you are getting all 3 medicines. Your previous oxygen testing shows you should be wearing 2 liters of oxygen with activity. I highly recommend this. Continue to wear 2 liters at night as well. Nicotine lozenge: Allow to dissolve between your gum and cheek, takes about 20-30 minutes to dissolve. Try to minimize swallowing, it can cause stomach upset. Can use up to 20 lozenges a day, every 1-2 hours as needed. documented in this encounter [facility] 03-30-2025 History of Present illness Narrative Images from the original note were not included. Pulmonary Medicine Patients name: Albania Ramsey PCP: Teresa Aguilar MD CC: follow-up HPI: Albania Ramsey is a 64 year old female current smoker with PMH significant for asthma/COPD, bipolar disorder, schizophrenia, COVID/PNA November 2022 and history of PE, chronic hypoxic respiratory failure. Current therapy consists of Advair, Spiriva and PRN Albuterol. She presents today to follow-up. CHONG 03/2024, treated for exacerbation, continued to smoke 1/2 ppd. Had lingering symptoms following visit. LCS CT in the fall reveals areas of infection/inflammation and was treated with additional courses of antibiotics. Symptoms eventually improved. Has noted a gradual worsening in breathing symptoms. Also has been frequently falling d/t feeling like her legs give out. She is supposed to be on triple therapy but it appears her Spiriva was discontinued late last summer but she does not know why. Uses Advair twice a day and albuterol every 4-6 hours. She was started on supplemental O2 in May 2024 and is compliant with oxygen at night, does not always wear it during the day with activity. Today, patient reports frequent cough with yellow sputum which is typical for her. No hemoptysis. Wheezing often. No chest tightness or dyspnea at rest. Exertional dyspnea has not changed and is limiting in her daily activity. Is short of breath walking around her house doing daily tasks. No fevers, chills, or night sweats. No unintended weight loss. No recent hospitalizations or ED visits or upper respiratory infections. Continues to smoke 1/2 a pack a day. Can't use nicotine patch, breaks out in a rash. DME: [employer] 2L continuous PAST MEDICAL HISTORY Diagnosis Date Asthma ([facility]) Bipolar I disorder, most recent episode (or current) unspecified Blood dyscrasia Chronic obstructive pulmonary disease (COPD) ([facility]) Dysthymic disorder Depression (non-psychotic) Lumbago Osteoarthritis Pulmonary embolus ([facility]) 25 years prior Schizophrenia ([facility]) follows with Dr Bill at [facility] Snoring Tobacco use disorder 1/2 ppd since age of 11 Allergies: Demoral [Meperidine] Rash Desyrel [Trazodone * Rash Doxycycline Hives Erythromycin Rash Levaquin [Levofloxa* Rash Morphine Swelling Prednisone Rash Medication List Accurate as of March 28, 2025 9:12 PM. If you have any questions, ask your nurse or doctor. CONTINUE taking these medications * albuterol HFA 90 mcg/actuation inhaler Commonly known as: PROVENTIL HFA, VENTOLIN HFA Inhale 2 Puffs as instructed every 4 hours as needed for Wheezing/Shortness of Breath. * albuterol 2.5 mg /3 mL (0.083 %) nebulizer solution Commonly known as: PROVENTIL Use 3 mL via nebulizer every 4 hours as needed for wheezing/shortness of breath. Use over 5-15minutes. benztropine 1 mg tablet Commonly known as: COGENTIN cholecalciferol (Vitamin D3) 1,250 mcg (50,000 unit) Cap capsule Commonly known as: VITAMIN D3 Take 1 capsule by mouth one time a week. fluticasone-salmeterol 250-50 mcg/dose inhaler Commonly known as: ADVAIR DISKUS Inhale 1 Puff as instructed two times a day. lamoTRIgine 150 mg tablet Commonly known as: LaMICtal Take 1 tablet by mouth three times daily as needed. meclizine 25 mg Tab Commonly known as: ANTIVERT Take 1 tablet by mouth every 6 hours as needed (dizziness). melatonin 10 mg Tab ondansetron 4 mg tablet Commonly known as: ZOFRAN Take 1 tablet by mouth every 8 hours as needed for up to 10 doses. OXYGEN (HOME THERAPY) 2 L/min by Nasal Cannula route continuous. pantoprazole DR 20 mg tablet Commonly known as: PROTONIX Take 1 tablet by mouth daily before breakfast. Take on empty stomach, 1/2 hr before meal. QUEtiapine 400 mg tablet Commonly known as: SEROquel sertraline 50 mg tablet Commonly known as: ZOLOFT * This list has 2 medication(s) that are the same as other medications prescribed for you. Read the directions carefully, and ask your doctor or other care provider to review them with you. DATA: I personally reviewed and analyzed all labs, radiographs and available pulmonary function testing PFT: 07/2023 Spirometry indicates moderately severe obstruction. The increase in FEF 25-75 post-bronchodilator reflects an improvement in the small airway obstruction. The RV and RV/TLC are elevated indicating air trapping. The diffusing capacity is mildly reduced. 05/2024 IMMUNIZATIONS Prevnar - 02/27/25 Pneumovax 23 - xx Influenza - xx COVID-19 - 11/2024 RSV- xx Review of Systems Constitutional: Negative for activity change, appetite change, fever and unexpected weight change. HENT: Negative for congestion, mouth sores, postnasal drip and sinus pressure. Respiratory: Positive for cough, shortness of breath and wheezing. Negative for chest tightness. Cardiovascular: Negative for chest pain, palpitations and leg swelling. Neurological: Negative for light-headedness and headaches. BP 108/72 Pulse 100 Resp 20 Wt 51.7 kg (114 lb) SpO2 90% BMI (P) 18.68 kg/m Physical Exam Vitals reviewed. Constitutional: General: She is not in acute distress. Appearance: Normal appearance. She is not ill-appearing. Comments: Walks with a walker HENT: Head: Normocephalic. Mouth/Throat: Mouth: Mucous membranes are moist. Pharynx: No oropharyngeal exudate or posterior oropharyngeal erythema. Cardiovascular: Rate and Rhythm: Normal rate and regular rhythm. Heart sounds: Normal heart sounds. Pulmonary: Effort: Pulmonary effort is normal. No respiratory distress. Breath sounds: Wheezing present. No rhonchi. Musculoskeletal: Right lower leg: No edema. Left lower leg: No edema. Lymphadenopathy: Cervical: No cervical adenopathy. Skin: General: Skin is warm and dry. Capillary Refill: Capillary refill takes less than 2 seconds. Neurological: General: No focal deficit present. Mental Status: She is alert. ASSESSMENT/PLAN: 1. COPD, severe (HCC) - ICD9: 496, ICD10: J44.9 (primary diagnosis) - Symptoms not well controlled, likely in the setting of continued smoking, sub optimal inhaled therapy and noncompliance with exertional O2. - Stop Advair - Start Trelegy, 1 puff once a day. Rinse mouth after use. Instructed to let the office know if she has any issues obtaining Trelegy. Can use Advair discus and Spiriva. - continue Albuterol as needed. - needs to stop smoking. 2. Chronic hypoxemic respiratory failure (HCC) - ICD9: 518.83, 799.02, ICD10: J96.11 - currently wearing supplemental O2 at night only. - strongly encouraged 2L with activity. - codesy 3. Current smoker - ICD9: 305.1, ICD10: F17.200 - currently smoking half a pack a day. Smoking cessation highly advised. - Provided with NRT lozenges. - Physiologic and physical aspects of tobacco addiction as well as strategies for quitting were discussed. - Counseling was given focusing on the harmful effects of this addiction especially given the patient's medical condition(s) which will be worsened because of the chemicals in tobacco. 4. Multiple lung nodules - ICD9: 793.19, ICD10: R91.8 - follows with [facility], needs to schedule F/u 3 months Portions of this documentation were copied and pasted from previous office visit notes in order to provide a cohesive continuity of the history. The note has been reviewed and edited and updated as necessary. Aysha Lloyd APRN.CNP I spent a total of 32 minutes on the date of the service which included preparing to see the patient, [id number] patient care, completing clinical documentation, performing a medically appropriate examination, counseling and educating the patient/family/caregiver, and ordering medications, tests, or procedures. documented in this encounter [facility] 03-30-2025 Note HNO ID: [id number] Author: AYSHA LLOYD APRN.CNP Service: ? Author Type: Nurse Practitioner Type: Progress Notes Filed: 03/30/2025 10:32 Note Text: Pulmonary Medicine Patients name: Albania Ramsey PCP: Teresa Aguilar MD CC: follow-up HPI: Albania Ramsey is a 64 year old female current smoker with PMH significant for asthma/COPD, bipolar disorder, schizophrenia, COVID/PNA November 2022 and history of PE, chronic hypoxic respiratory failure. Current therapy consists of Advair, Spiriva and PRN Albuterol. She presents today to follow-up. CHONG 03/2024, treated for exacerbation, continued to smoke 1/2 ppd. Had lingering symptoms following visit. LCS CT in the fall reveals areas of infection/inflammation and was treated with additional courses of antibiotics. Symptoms eventually improved. Has noted a gradual worsening in breathing symptoms. Also has been frequently falling d/t feeling like her legs give out. She is supposed to be on triple therapy but it appears her Spiriva was discontinued late last summer but she does not know why. Uses Advair twice a day and albuterol every 4-6 hours. She was started on supplemental O2 in May 2024 and is compliant with oxygen at night, does not always wear it during the day with activity. Today, patient reports frequent cough with yellow sputum which is typical for her. No hemoptysis. Wheezing often. No chest tightness or dyspnea at rest. Exertional dyspnea has not changed and is limiting in her daily activity. Is short of breath walking around her house doing daily tasks. No fevers, chills, or night sweats. No unintended weight loss. No recent hospitalizations or ED visits or upper respiratory infections. Continues to smoke 1/2 a pack a day. Can't use nicotine patch, breaks out in a rash. DME: [employer] 2L continuous PAST MEDICAL HISTORY Diagnosis Date Asthma (HCC) Bipolar I disorder, most recent episode (or current) unspecified Blood dyscrasia Chronic obstructive pulmonary disease (COPD) (HCC) Dysthymic disorder Depression (non-psychotic) Lumbago Osteoarthritis Pulmonary embolus (HCC) 25 years prior Schizophrenia ([facility]) follows with Dr Bill at [facility] Snoring Tobacco use disorder 1/2 ppd since age of 11 Allergies: Demoral [Meperidine] Rash Desyrel [Trazodone * Rash Doxycycline Hives Erythromycin Rash Levaquin [Levofloxa* Rash Morphine Swelling Prednisone Rash Medication List Accurate as of March 28, 2025 9:12 PM. If you have any questions, ask your nurse or doctor. CONTINUE taking these medications * albuterol HFA 90 mcg/actuation inhaler Commonly known as: PROVENTIL HFA, VENTOLIN HFA Inhale 2 Puffs as instructed every 4 hours as needed for Wheezing/Shortness of Breath. * albuterol 2.5 mg /3 mL (0.083 %) nebulizer solution Commonly known as: PROVENTIL Use 3 mL via nebulizer every 4 hours as needed for wheezing/shortness of breath. Use over 5-15minutes. benztropine 1 mg tablet Commonly known as: COGENTIN cholecalciferol (Vitamin D3) 1,250 mcg (50,000 unit) Cap capsule Commonly known as: VITAMIN D3 Take 1 capsule by mouth one time a week. fluticasone-salmeterol 250-50 mcg/dose inhaler Commonly known as: ADVAIR DISKUS Inhale 1 Puff as instructed two times a day. lamoTRIgine 150 mg tablet Commonly known as: LaMICtal Take 1 tablet by mouth three times daily as needed. meclizine 25 mg Tab Commonly known as: ANTIVERT Take 1 tablet by mouth every 6 hours as needed (dizziness). melatonin 10 mg Tab ondansetron 4 mg tablet Commonly known as: ZOFRAN Take 1 tablet by mouth every 8 hours as needed for up to 10 doses. OXYGEN (HOME THERAPY) 2 L/min by Nasal Cannula route continuous. pantoprazole DR 20 mg tablet Commonly known as: PROTONIX Take 1 tablet by mouth daily before breakfast. Take on empty stomach, 1/2 hr before meal. QUEtiapine 400 mg tablet Commonly known as: SEROquel sertraline 50 mg tablet Commonly known as: ZOLOFT * This list has 2 medication(s) that are the same as other medications prescribed for you. Read the directions carefully, and ask your doctor or other care provider to review them with you. DATA: I personally reviewed and analyzed all labs, radiographs and available pulmonary function testing PFT: 07/2023 Spirometry indicates moderately severe obstruction. The increase in FEF 25-75 post-bronchodilator reflects an improvement in the small airway obstruction. The RV and RV/TLC are elevated indicating air trapping. The diffusing capacity is mildly reduced. 05/2024 IMMUNIZATIONS Prevnar - 02/27/25 Pneumovax 23 - xx Influenza - xx COVID- - 11/2024 RSV- xx Review of Systems Constitutional: Negative for activity change, appetite change, fever and unexpected weight change. HENT: Negative for congestion, mouth sores, postnasal drip and sinus pressure. Respiratory: Positive for cough, short (more content not included)... [facility] 03-19-2025 Note HNO ID: [id number] Author: MAIA BEASLEY, PT Service: ? Author Type: Physical Therapist Type: Progress Notes Filed: 03/19/2025 09:23 Note Text: Episode Visit Count: 2 Therapist That Will Accept/Oversee The Plan Of Care: Nicolás Louis PT Start of Care Date: 03/14/25 Onset Date: 03/14/24 Plan of Care Certification Date: 03/14/25 Next Certification Due Date: 05/09/25 REHABILITATION AND SPORTS THERAPY PHYSICAL THERAPY TREATMENT NOTE ASSESSMENT: [place] Ramsey tolerated the session with fatigue. She demonstrated difficulty with demonstrating safe sit <> stand sequence from surfaces <> rollator. Pt. Reported the correct sequence and cues made more sense once PT demonstrated and explained why the rollator is locked prior to transfers. Moderatre amount of sway in romberg with eyes closed, requires repeated cues for postural awareness of the neck and shoulders even when the eyes are closed. Responds well to repeated verbal cues. The patient will continue to benefit from ongoing skilled physical therapy to progress toward set goals. PLAN FOR NEXT VISIT: Possibly request PT order to address 7/- R shoulder pain. Continue static and dynamic balance. Safety awareness with gait and transfer sequence using rollator. Modify as needed due to R shoulder pain. Postural training to reduce strain on R shoulder with rollator use. SUBJECTIVE: Yesterday pt. had a fall just walking across the floor at her home. Pt. was not using her rollator at the time and the fall took place on carpet surface. Denies injury. Pt. was able to get herself back upright without assistance using nearby furnature for UE support. This took awhile. Patient Goals: improve balance and safety with functional mobility. Pain: Pain Pain Level: 7 Pain Location: Shoulder - Right Description: Stabbing Frequency: Intermittent Post Treatment Pain Post Treatment Pain Level: 0 Post Treatment Pain Location: Shoulder - Right Post Treatment Symptoms: unexpected - denies any R shoulder pain. OBJECTIVE MEASURES WITH LEVEL OF FUNCTION: TREATMENT: Therapeutic Exercise: 1: seated stepper for warm up and subjective, seat 12, 1:1 throughout, level 1.5 Skilled Intervention: Patient was educated in proper exercise technique and purpose for exercises. Educated patient on rationale for performing exercises in regards to including balance. Patient education as noted. Therapeutic Activity: 2: backing all the way up to chair surface, locking rollator prior to sit and vice versa -- max cues to not park rollator adjacent to surface prior to sit. Demonstration provided by PT, practiced ~15x more times throughout visit when pt sat to rest between balance and gait tasks. (Did mention to patient that she can WB primarily through the LUE rather than the R due to pain, suggested she at least touch the R arm rest to tell where the surface is prior to sitting) Skilled Intervention: Proper patient guarding to prevent falls/increase patient safety with stand by assist to assist patient while performing sit <> stand transfers rollator <> chair Ensured patient safety with use of rollator and gait belt. Neuromuscular Re-Education: 1: static standing in rollator, arms crossed 30 sec, EO (minimal sway) 2: romberg static standing in rollator 30 sec, arms crossed, EO (some intermittent sway) 3: romberg static standing in rollator, 3x30 sec EC (moderate sway, self correcting posture without cue by 3rd trial) 4: semi tandem static stance, EO, 4x30 sec, each LE forward 2x Skilled Intervention: Skilled judgment used to assess appropriate program for balance and coordination activity. Education in proprioceptive/kinesthetic awareness during standing and dynamic activities. Gait Training: Distance (feet): 150+75 + 75 Gait Cues: upright trunk, avoid B scapular shrug, slight flexion in elbows, keep BLEs within the base of the rollator Assistive Device: rollator Assist Level: SBA and verbal cues Skilled Intervention: Patient was provided stand by assist during pre-gait/gait training to prevent falls and insure safety. Facilitated proper gait cycle with the use of verbal, visual, and tactile cues for correction of gait deviations identified in the objective section above. Gait belt utilized during session for safety. [facility] Management: 1: reminded pt. balance exercises are not for home, this will be completed safely during PT visits with assist 2: discussed fall risk when parking the rollator adjacent or far from surfaces due to twisting of the body to reach it. Skilled Intervention: Skilled judgment in the selection of proper modification for activity of daily living/home management based on clinical presentation, deficits, and needs. Reviewed patient specific diagnosis in relation to activities of daily living/home management. Activity progression based on professional judgement. Billing Therapeutic Exercise (more content not included)... [facility] 03-19-2025 History of Present illness Narrative Episode Visit Count: 2 Therapist That Will Accept/Oversee The Plan Of Care: Nicolás Louis PT Start of Care Date: 03/14/25 Onset Date: 03/14/24 Plan of Care Certification Date: 03/14/25 Next Certification Due Date: 05/09/25 REHABILITATION AND SPORTS THERAPY PHYSICAL THERAPY TREATMENT NOTE ASSESSMENT: [place] Ramsey tolerated the session with fatigue. She demonstrated difficulty with demonstrating safe sit <> stand sequence from surfaces <> rollator. Pt. Reported the correct sequence and cues made more sense once PT demonstrated and explained why the rollator is locked prior to transfers. Moderatre amount of sway in romberg with eyes closed, requires repeated cues for postural awareness of the neck and shoulders even when the eyes are closed. Responds well to repeated verbal cues. The patient will continue to benefit from ongoing skilled physical therapy to progress toward set goals. PLAN FOR NEXT VISIT: Possibly request PT order to address 7- R shoulder pain. Continue static and dynamic balance. Safety awareness with gait and transfer sequence using rollator. Modify as needed due to R shoulder pain. Postural training to reduce strain on R shoulder with rollator use. SUBJECTIVE: Yesterday pt. had a fall just walking across the floor at her home. Pt. was not using her rollator at the time and the fall took place on carpet surface. Denies injury. Pt. was able to get herself back upright without assistance using nearby furnature for UE support. This took awhile. Patient Goals: improve balance and safety with functional mobility. Pain: Pain Pain Level: 7 Pain Location: Shoulder - Right Description: Stabbing Frequency: Intermittent Post Treatment Pain Post Treatment Pain Level: 0 Post Treatment Pain Location: Shoulder - Right Post Treatment Symptoms: unexpected - denies any R shoulder pain. OBJECTIVE MEASURES WITH LEVEL OF FUNCTION: TREATMENT: Therapeutic Exercise: 1: seated stepper for warm up and subjective, seat 12, 1:1 throughout, level 1.5 Skilled Intervention: Patient was educated in proper exercise technique and purpose for exercises. Educated patient on rationale for performing exercises in regards to including balance. Patient education as noted. Therapeutic Activity: 2: backing all the way up to chair surface, locking rollator prior to sit and vice versa -- max cues to not park rollator adjacent to surface prior to sit. Demonstration provided by PT, practiced ~15x more times throughout visit when pt sat to rest between balance and gait tasks. (Did mention to patient that she can WB primarily through the LUE rather than the R due to pain, suggested she at least touch the R arm rest to tell where the surface is prior to sitting) Skilled Intervention: Proper patient guarding to prevent falls/increase patient safety with stand by assist to assist patient while performing sit <> stand transfers rollator <> chair Ensured patient safety with use of rollator and gait belt. Neuromuscular Re-Education: 1: static standing in rollator, arms crossed 30 sec, EO (minimal sway) 2: romberg static standing in rollator 30 sec, arms crossed, EO (some intermittent sway) 3: romberg static standing in rollator, 3x30 sec EC (moderate sway, self correcting posture without cue by 3rd trial) 4: semi tandem static stance, EO, 4x30 sec, each LE forward 2x Skilled Intervention: Skilled judgment used to assess appropriate program for balance and coordination activity. Education in proprioceptive/kinesthetic awareness during standing and dynamic activities. Gait Training: Distance (feet): 150+75 + 75 Gait Cues: upright trunk, avoid B scapular shrug, slight flexion in elbows, keep BLEs within the base of the rollator Assistive Device: rollator Assist Level: SBA and verbal cues Skilled Intervention: Patient was provided stand by assist during pre-gait/gait training to prevent falls and insure safety. Facilitated proper gait cycle with the use of verbal, visual, and tactile cues for correction of gait deviations identified in the objective section above. Gait belt utilized during session for safety. [facility] Management: 1: reminded pt. balance exercises are not for home, this will be completed safely during PT visits with assist 2: discussed fall risk when parking the rollator adjacent or far from surfaces due to twisting of the body to reach it. Skilled Intervention: Skilled judgment in the selection of proper modification for activity of daily living/home management based on clinical presentation, deficits, and needs. Reviewed patient specific diagnosis in relation to activities of daily living/home management. Activity progression based on professional judgement. Billing Therapeutic Exercise Treatment Minutes: 5 Therapeutic Activity Treatment Minutes: 5 Neuromuscular Re-Education Treatment Minutes: 15 Self-Care/Home Management Treatment Minutes: 5 Gait Training Treatment Minutes: 10 Skilled Treatment Time Minutes (timed and untimed codes): 40 Total Session Time (minutes): 40 Session Start Time : 840 Session Stop Time : 920 Maia Beasley PT documented in this encounter [facility] 03-14-2025 Note HNO ID: [id number] Author: NICOLÁS LOUIS PT Service: ? Author Type: Physical Therapist Type: Progress Notes Filed: 03/14/2025 09:53 Note Text: Episode Visit Count: 1 Therapist That Will Accept/Oversee The Plan Of Care: Nicolás Louis PT Start of Care Date: 03/14/25 Onset Date: 03/14/24 Plan of Care Certification Date: 03/14/25 Next Certification Due Date: 05/09/25 Patient Identified by Name and Date of : Yes REHABILITATION AND SPORTS THERAPY PHYSICAL THERAPY EVALUATION PLAN OF CARE: Assessment: [place] Ramsey presents with diagnosis of balance deficits with history of falls that interferes with rising from a chair, walking. The patient presents with impairments in ADL's, balance, coordination, gait, independence in exercise, overall function, and strength. PROMIS? (Patient-Reported Outcomes Measurement Information System) scores were reviewed and identified as a rehabilitation concern. Prognosis for therapy is Good due to: current objective clinical presentation, positive past response to therapy, Prognosis may be limited due to chronic nature of impairments, limited support system, clinical presentation. The patient will benefit from skilled therapy services to meet the goals established for this plan of care as noted below. Assessment Fall Risk : Complex at risk Goals for Episode of Care: established 03/14/25 Patient reported outcome of mobility will increase T-score by a minimum 5 points. Patient will report no falls. Improve score on Timed Up and Go Test to 7.24 seconds to reflect decreased fall risk. Improve score on 30 Second Chair Stand to 11 repetitions to reflect decreased fall risk. Improve performance on 4 Stage Balance Test to 10 second tandem stance to reflect decreased fall risk. [place] in home exercise program including cardiovascular exercise. Patient will demonstrate independent and proper use of assisstive device to allow for improved walking quality and safety therefore reducing the risk of falls. Patient Goals: improve balance and safety with functional mobility. Time Frame for Goals and Treatment : 05/09/25 Planned Interventions, Frequency, and Duration: Current Frequency: 2x/week (Pt requests to start 1x week secondary to transportation challenges) Duration: 8 weeks Total Number of Visits Planned: 16 Planned Treatment Interventions: Therapeutic exercise (96470), Neuromuscular re-education (79552), Therapeutic activities (22940), Self-group home management (03774), Gait Training (48360), Patient/Family/Caregiver Education, Body Mechanics Training, General Conditioning, Functional training PLAN FOR NEXT VISIT: Review, correct, and progress HEP to tolerance for functional LE strength and endurance. Begin balance and gait training to improve safety and effectiveness of functional mobility. Patient demonstrates good understanding of plan of care and treatment. The above goals and plan of care were discussed and agreed upon by patient/family. SUBJECTIVE: Pt reports onset of balance deficits and falls approximately 1 year ago without explanation. She reports that she started using a rollator 7-8 months ago but she has still had 8-9 falls in the past year. She reports injuring her R shoulder in one of the falls but no other injuries. Patient Goals: improve balance and safety with functional mobility. Functional Limitations: rising from a chair, walking Prior Level of Function: Independent without limitations Relevant History Past Relevant Medical Conditions: COPD, Asthma (Pt uses oxygen prn during the day and always at night) Past Relevant Surgical Conditions: Total Shoulder Replacement-Right Employment: Unemployed Home Environment Patient Lives With: Self/Alone Assistance Available: PRN, 24-Hour Home Type: Apt/Condo Entry To Home: Elevator Number Of Stairs To Bed/Bath: 0 Equipment Owned: Rollator Intake Information: Prescription present Previous Treatment: None Falls Interview: Two or more falls in the last year, Fall with injury in the last year, Uses an assistive device Falls Intervention: Falls Specific Functional Performance Tests Falls History # of falls in past year: 9 # of falls resulting in an injury in past year: 1 Pain: Pain Pain Level: 7 Pain Location: Shoulder - Right Description: Stabbing Frequency: Intermittent (R shoulder pain started after one of her falls) Post Treatment Pain Post Treatment Pain Level: No Change PROMIS Scales 03/14/2025 08/18/2023 Higher is Better Phys Func - T Score 35 (moderate dysfunction) Phys Func - Percentile 7 Self-Eff Symptom - T Score 41 (Average) 38 (Low) Self-Eff Symptom - Percentile 18 12 Mobility - T Score 38 (moderate dysfunction) Mobility - Percentile 12 Proxy-reported T-scores: mean of general population = 50. 5 points is clinically meaningfully difference Percentiles provide an indication of how the patient's score ranks in re (more content not included)... [facility] 03-14-2025 History of Present illness Narrative Images from the original note were not included. Episode Visit Count: 1 Therapist That Will Accept/Oversee The Plan Of Care: Nicolás Louis PT Start of Care Date: 03/14/25 Onset Date: 03/14/24 Plan of Care Certification Date: 03/14/25 Next Certification Due Date: 05/09/25 Patient Identified by Name and Date of : Yes REHABILITATION AND SPORTS THERAPY PHYSICAL THERAPY EVALUATION PLAN OF CARE: Assessment: [place] Ramsey presents with diagnosis of balance deficits with history of falls that interferes with rising from a chair, walking. The patient presents with impairments in ADL's, balance, coordination, gait, independence in exercise, overall function, and strength. PROMIS (Patient-Reported Outcomes Measurement Information System) scores were reviewed and identified as a rehabilitation concern. Prognosis for therapy is Good due to: current objective clinical presentation, positive past response to therapy, Prognosis may be limited due to chronic nature of impairments, limited support system, clinical presentation. The patient will benefit from skilled therapy services to meet the goals established for this plan of care as noted below. Assessment Fall Risk : Complex at risk Goals for Episode of Care: established 03/14/25 Patient reported outcome of mobility will increase T-score by a minimum 5 points. Patient will report no falls. Improve score on Timed Up and Go Test to 7.24 seconds to reflect decreased fall risk. Improve score on 30 Second Chair Stand to 11 repetitions to reflect decreased fall risk. Improve performance on 4 Stage Balance Test to 10 second tandem stance to reflect decreased fall risk. [place] in home exercise program including cardiovascular exercise. Patient will demonstrate independent and proper use of assisstive device to allow for improved walking quality and safety therefore reducing the risk of falls. Patient Goals: improve balance and safety with functional mobility. Time Frame for Goals and Treatment : 05/09/25 Planned Interventions, Frequency, and Duration: Current Frequency: 2x/week (Pt requests to start 1x week secondary to transportation challenges) Duration: 8 weeks Total Number of Visits Planned: 16 Planned Treatment Interventions: Therapeutic exercise (28181), Neuromuscular re-education (79543), Therapeutic activities (08082), Self-group home management (75021), Gait Training (40648), Patient/Family/Caregiver Education, Body Mechanics Training, General Conditioning, Functional training PLAN FOR NEXT VISIT: Review, correct, and progress HEP to tolerance for functional LE strength and endurance. Begin balance and gait training to improve safety and effectiveness of functional mobility. Patient demonstrates good understanding of plan of care and treatment. The above goals and plan of care were discussed and agreed upon by patient/family. SUBJECTIVE: Pt reports onset of balance deficits and falls approximately 1 year ago without explanation. She reports that she started using a rollator 7-8 months ago but she has still had 8-9 falls in the past year. She reports injuring her R shoulder in one of the falls but no other injuries. Patient Goals: improve balance and safety with functional mobility. Functional Limitations: rising from a chair, walking Prior Level of Function: Independent without limitations Relevant History Past Relevant Medical Conditions: COPD, Asthma (Pt uses oxygen prn during the day and always at night) Past Relevant Surgical Conditions: Total Shoulder Replacement-Right Employment: Unemployed Home Environment Patient Lives With: Self/Alone Assistance Available: PRN, 24-Hour Home Type: Apt/Condo Entry To Home: Elevator Number Of Stairs To Bed/Bath: 0 Equipment Owned: Rollator Intake Information: Prescription present Previous Treatment: None Falls Interview: Two or more falls in the last year, Fall with injury in the last year, Uses an assistive device Falls Intervention: Falls Specific Functional Performance Tests Falls History # of falls in past year: 9 # of falls resulting in an injury in past year: 1 Pain: Pain Pain Level: 7 Pain Location: Shoulder - Right Description: Stabbing Frequency: Intermittent (R shoulder pain started after one of her falls) Post Treatment Pain Post Treatment Pain Level: No Change PROMIS Scales 03/14/2025 08/18/2023 Higher is Better Phys Func - T Score 35 (moderate dysfunction) Phys Func - Percentile 7 Self-Eff Symptom - T Score 41 (Average) 38 (Low) Self-Eff Symptom - Percentile 18 12 Mobility - T Score 38 (moderate dysfunction) Mobility - Percentile 12 Proxy-reported T-scores: mean of general population = 50. 5 points is clinically meaningfully difference Percentiles provide an indication of how the patient's score ranks in relation to the general population. Higher percentile rankings indicate better function/quality of life. 50th percentile is the average of the general population and indicates half of respondents had a worse score. OBJECTIVE MEASURES WITH LEVEL OF FUNCTION: Posture / Alignment Posture: Forward head, Rounded shoulders, Increased thoracic kyphosis LE Strength Trunk Strength: Pt has difficulty with rising and a history of falls that indicate she will benefit from increased functional strength of LEs and trunk. R LE Strength: Pt has difficulty with rising and a history of falls that indicate she will benefit from increased functional strength of LEs and trunk. L LE Strength: Pt has difficulty with rising and a history of falls that indicate she will benefit from increased functional strength of LEs and trunk. Gait Gait Observation: Pt arrives using rollator. She has tremors but otherwise uses rollator safely. She knows that rollator locks but was not familiar with the proper process for transfers with locking and unlocking brakes. Functional Performance Test Results Assistive Device: Rollator 30 Second Chair Stand Test: 9 reps Timed Up and Go (sec): 24.15 sec 4 Stage Balance Test Narrow base of support (sec): 10 sec Semi-tandem base of support (sec): 10 sec Tandem base of support (sec): 3 sec Single leg stance - right (sec): 0 sec Single leg stance - left (sec): 0 sec Vitals BP: 172/83 Pulse: 83 Education: Education Learning Preferences: Demonstration, Explanation, Performance, Printed Materials Barriers: None Learning/educational needs: Home exercise program, Plan of Care, Posture, Body Mechanics Education Provided: Yes, see treatment interventions for education provided Education Provided To: Patient Education Mode/Type: Demonstration, Explanation/Discussion, Literature/Printed Materials, Performance Response to Education/Teach Back: States/Identifies, Return Demonstration, Requires Review/Additional Education TREATMENT: PT Treatment Interventions: Therapeutic Activity, Therapeutic Exercise Evaluation Therapeutic Exercise: 1: Pt was advised that she should only be completing seated therex at home and only to the point of fatigue. She was repeatedly advised that she should not attempt balance exercises or tests at home. 2: *seated B DF/PF 2x20 (heel and toes raises) 3: *seated B alt hip flexion marching 2x10 4: *seated B alt knee extension 2x10 Skilled Intervention: Patient was educated in proper exercise technique and purpose for exercises. Reviewed and educated patient on additions/changes for home exercise program as above (*). Skilled judgment was used in selection of appropriate interventions. Provided written instruction for home exercise program to facilitate proper performance and compliance. Correct performance of therapeutic exercises was facilitated with verbal and visual cuing. Patient education as noted. Therapeutic Activity: 1: Pt was educated on proper transfer technique for sit to stand and stand to sit with rollator. Specifically she was educated on how to lock and unlock brakes. Hand placement during transfers was also instructed and emphasized to improve safety. Continued use of rollator was strongly encouraged. Skilled Intervention: Proper patient guarding to prevent falls/increase patient safety with contact guard assistance, stand by assist to assist patient while performing gait and balance activities. Ensured patient safety with use of gait belt and intermittent assist. Educated on proper/safe technique for activities performed today. Billing * Evaluation Low Complexity: 1 Unit Therapeutic Exercise Treatment Minutes: 8 Therapeutic Activity Treatment Minutes: 5 Skilled Treatment Time Minutes (timed and untimed codes): 33 Total Session Time (minutes): 33 Session Start Time : 09 Session Stop Time : 932 Nicolás Louis PT documented in this encounter [facility] 03-06-2025 Telephone encounter Note PATIENT NOTIFIED OF INFORMATION [facility] 03-06-2025 Miscellaneous Notes PATIENT NOTIFIED OF INFORMATION Message left for pt to call back for results. Lennie Khan MA Please notify patient that her lab work from last week looked OK; I do not see anything that would explain her dizziness. Teresa Aguilar MD documented in this encounter [facility] 03-06-2025 Telephone encounter Note Message left for pt to call back for results. Lennie Khan MA [facility] 03-06-2025 Telephone encounter Note Please notify patient that her lab work from last week looked OK; I do not see anything that would explain her dizziness. Teresa Aguilar MD [facility] 03-05-2025 Telephone encounter Note OK to refill as ordered Teresa Aguilar MD [facility] 03-05-2025 Miscellaneous Notes OK to refill as ordered Teresa Aguilar MD The patient has been identified by name and date of : Yes Caregiver verified no other encounters exist for this prescription request: Yes Caregiver confirmed with patient/requestor that no other refills are due, in the near future, with this provider at this time: Yes The last office visit in the department: 02/27/2025 Does the patient have a future office visit with this provider/department: No Visit date not found Requested Prescriptions Pending Prescriptions Disp Refills meclizine (ANTIVERT) 25 mg tab 40 tablet 5 Sig: Take 1 tablet by mouth every 6 hours as needed (dizziness). Nighat Scales RN March 05, 2025 1:02 PM documented in this encounter [facility] 03-05-2025 Telephone encounter Note The patient has been identified by name and date of : Yes Caregiver verified no other encounters exist for this prescription request: Yes Caregiver confirmed with patient/requestor that no other refills are due, in the near future, with this provider at this time: Yes The last office visit in the department: 02/27/2025 Does the patient have a future office visit with this provider/department: No Visit date not found Requested Prescriptions Pending Prescriptions Disp Refills meclizine (ANTIVERT) 25 mg tab 40 tablet 5 Sig: Take 1 tablet by mouth every 6 hours as needed (dizziness). Nighat Scales RN March 05, 2025 1:02 PM [facility] 03-01-2025 Telephone encounter Note Arturo from [facility] called in and was requesting a refill on Pt's Cyclobenzaprine. I let her know that provider discontinued that on 02/27/25. She said she would remove it from Pt's medication list. Maude Scott, ASHLEE [facility] 03-01-2025 Miscellaneous Notes Arturo from [facility] called in and was requesting a refill on Pt's Cyclobenzaprine. I let her know that provider discontinued that on 02/27/25. She said she would remove it from Pt's medication list. Maude Scott, RN documented in this encounter [facility] 03-01-2025 History of Present illness Narrative Radiology Service Progress Note PATIENT NAME: Albania Ramsey DATE OF SERVICE: March 01, 2025 TIME: 7:35 AM PATIENT IDENTITY VERIFICATION COMPLETED USING TWO (2) IDENTIFIERS: Name and Date of confirmed by patient verbally. FALL SCREENING: Has the patient had 2 falls in the last year or 1 fall with injury or currently using an Ambulatory Assistive Device (Walker, Cane, Wheelchair, Crutches, etc.)? Yes, Patient High Risk for Falls What interventions were put in place to prevent falls during this visit? Non-Skid Socks Used, Instructed Patient to Call for Help if Needed, Increased Observations by Caregivers, and walker PATIENT GENDER DATA: Assigned female at . status: : No status: NO. PATIENT RELEVANT IMPLANT DATA REVIEWED: Yes surgical hardware r shoulder PATIENT PRESENTS WITH AN IMPLANTABLE OR ATTACHED BUILDING CONSTRUCTION ENGINEER: No RADIOLOGY DEPARTMENT: MR; Exam(s) Completed: Head: cognitive impairment wo. Aromatherapy Administered: No PERIPHERAL IV DATA: Not applicable SIGNED BY: Delmis Ramirez A.A.S.,RT (R) (CT)(MR) March 01, 2025 7:35 AM documented in this encounter [facility] 03-01-2025 Note HNO ID: [id number] Author: DELMIS RAMIREZ MRI Tech Service: ? Author Type: Land Appraiser Type: Progress Notes Filed: 03/01/2025 07:41 Note Text: Radiology Service Progress Note PATIENT NAME: Albania Ramsey DATE OF SERVICE: March 01, 2025 TIME: 7:35 AM PATIENT IDENTITY VERIFICATION COMPLETED USING TWO (2) IDENTIFIERS: Name and Date of confirmed by patient verbally. FALL SCREENING: Has the patient had 2 falls in the last year or 1 fall with injury or currently using an Ambulatory Assistive Device (Walker, Cane, Wheelchair, Crutches, etc.)? Yes, Patient High Risk for Falls What interventions were put in place to prevent falls during this visit? Non-Skid Socks Used, Instructed Patient to Call for Help if Needed, Increased Observations by Caregivers, and walker PATIENT GENDER DATA: Assigned female at . status: : No status: NO. PATIENT RELEVANT IMPLANT DATA REVIEWED: Yes surgical hardware r shoulder PATIENT PRESENTS WITH AN IMPLANTABLE OR ATTACHED BUILDING CONSTRUCTION ENGINEER: No RADIOLOGY DEPARTMENT: MR; Exam(s) Completed: Head: cognitive impairment wo. Aromatherapy Administered: No PERIPHERAL IV DATA: Not applicable SIGNED BY: Delmis Ramirez A.A.S.,RT (R) (CT)(MR) March 01, 2025 7:35 AM [facility] 02-27-2025 History of Present illness Narrative Chief Complaint Patient presents with: Follow Up: dizziness HPI Albania Ramsey is a 64 year old female who presents here today for follow up. Smoking half ppd. Pt here for a follow up for dizziness which is getting worse. She states that she has had this for several months. Pt saw Emeli Spivey 02/06/25. At that time she complained of nausea and felt like room was spinning, each episode lasting around 30 minutes. Admits to having blurry vision occ in Right eye. Meclizine helps with the nausea. Memory: Follows with Neuro who ordered brain MRI. Pt has not completed yet. Has mentioned dizziness in past visits with Neuro. Has also had low BP in past. [facility] notified PCP that pt is more unsteady and is declining cognitively. Emeli was waiting response from pt Psychiatrist about stopping the Prozosin to see if BP would improve. Psych called back and stated that she was told to stop that medication in Apr 2024 due to low BP. Also pt is non-compliant with wearing her Oxygen, should be using 2 L continually. Thrush: was treated with Nystatin suspension. Intermittent right side pain x 3-4 months. She states it is a throbbing pain. Has used heat. Has not tried taking anything for pain. No injury that she is aware of. Past medical history, appointments, medications, allergies reviewed. Previous Medical History PAST MEDICAL HISTORY Diagnosis Date Asthma (HCC) Bipolar I disorder, most recent episode (or current) unspecified Blood dyscrasia Chronic obstructive pulmonary disease (COPD) (HCC) Dysthymic disorder Depression (non-psychotic) Lumbago Osteoarthritis Pulmonary embolus (HCC) 25 years prior Schizophrenia (HCC) follows with Dr Bill at [facility] Snoring Tobacco use disorder 1/2 ppd since age of 11 Previous Surgical History PAST SURGICAL HISTORY Procedure Laterality Date APPENDECTOMY 1985 COLONOSCOPY FLX DX W/COLLJ SPEC WHEN PFRMD 10/19/2018 Colonoscopy COLONOSCOPY FLX DX W/COLLJ SPEC WHEN PFRMD 11/21/2019 Colonoscopy COLSC FLX W/RMVL OF TUMOR POLYP LESION SNARE TQ 04/19/2012 4 polyps - 3 yr follow up EGD TRANSORAL BIOPSY SINGLE/MULTIPLE 04/19/2012 gastritis ESOPHAGOGASTRODUODENOSCOPY TRANSORAL DIAGNOSTIC 11/21/2019 EGD EXC BREAST LES PREOP PLMT RAD MARKER OPEN 1 LES Left 11/18/2016 Mild duct ectasia, benign microcalcifications HERNIA REPAIR HX 90s Lt inguinal LAPAROSCOPY COLECTOMY PARTIAL W/ANASTOMOSIS 12/19/2018 laparscopic right hemicolectomy LAPAROSCOPY SURG CHOLECYSTECTOMY 1982 Cholecystectomy, lap LAPS ABD PRTM&OMENTUM DX W/WO SPEC BR/WA SPX Laparoscopy PAST SURGICAL HISTORY OF 10/27/2010 L5-S1 Microdisckectomy PAST SURGICAL HISTORY OF Left 11/18/2016 breast bx-Dr. Wise PT ED ORTHOPAEDICS Right 08/04/2023 Shoulder replacement SURGICAL ARTHROSCOPY FAM W/CORACOACRM LIGM RLS Right 11/27/2020 Right shoulder arthroscopy, glenohumeral chondroplasty, biceps tenotomy, SAD TOTAL ABDOMINAL HYSTERECT W/WO RMVL TUBE OVARY 1982 Hysterectomy, VALDEMAR Family History FAMILY HISTORY Problem Relation Age of Onset Blood Disease Mother Diabetes Mother Colon Cancer Mother Breast Cancer Mother other (Bleeding disorder) Mother Cancer Father prostate Prostate Cancer Father Diabetes Sister Heart disease Sister other (HTN) Sister Stroke Sister other (Same issues as other sister) Sister Cervical Cancer Maternal Aunt Breast Cancer Other cousin Patient Allergies ALLERGIES Allergen Reactions Demoral [Meperidine] Rash Desyrel [Trazodone * Rash Doxycycline Hives Erythromycin Rash Levaquin [Levofloxa* Rash Morphine Swelling Prednisone Rash Current Medications Current Outpatient Medications on File Prior to Visit Medication Sig nystatin (MYCOSTATIN) 100,000 unit/mL suspension Take 5 mL by mouth four times daily. Swish and swallow. meloxicam (MOBIC) 7.5 mg tablet Take 1 tablet by mouth once daily. cyclobenzaprine (FLEXERIL) 10 mg tablet Take 1 tablet by mouth three times a day. meclizine (ANTIVERT) 25 mg tab Take 1 tablet by mouth every 6 hours as needed (dizziness). fluticasone-salmeterol (ADVAIR DISKUS) 250-50 mcg/dose inhaler Inhale 1 Puff as instructed two times a day. OXYGEN, HOME THERAPY, 2 L/min by Nasal Cannula route continuous. cholecalciferol, Vitamin D3, (VITAMIN D3) 1,250 mcg (50,000 unit) cap capsule Take 1 capsule by mouth one time a week. ondansetron (ZOFRAN) 4 mg tablet Take 1 tablet by mouth every 8 hours as needed for up to [address] (PROTONIX) 20 mg tablet Take 1 tablet by mouth daily before breakfast. Take on empty stomach, 1/2 hr before meal. melatonin 10 mg tab Take 1 tablet by mouth at bedtime as needed. QUEtiapine (SEROQUEL) 400 mg tablet take 2 tablets by mouth once daily at bedtime albuterol (PROVENTIL) 2.5 mg /3 mL (0.083 %) nebulizer solution Use 3 mL via nebulizer every 4 hours as needed for wheezing/shortness of breath. Use over 5-15minutes. lamoTRIgine (LAMICTAL) 150 mg tablet Take 1 tablet by mouth three times daily as needed. albuterol HFA (PROVENTIL HFA, VENTOLIN HFA) 90 mcg/actuation inhaler Inhale 2 Puffs as instructed every 4 hours as needed for Wheezing/Shortness of Breath. sertraline (ZOLOFT) 50 mg tablet Take 50 mg by mouth once daily. benztropine (COGENTIN) 1 mg tablet Take 1 mg by mouth twice daily. No current facility-administered medications on file prior to visit. Social History Social History Tobacco Use Smoking status: Every Day Current packs/day: 0.50 Average packs/day: 0.5 packs/day for 52.7 years (26.4 ttl pk-yrs) Types: Cigarettes Start date: 10/02/1972 Passive exposure: Past Smokeless tobacco: Never Tobacco comments: start age 11, average of 1.5 PPD since, currently smoking 0.5 PPD Vaping Use Vaping status: Never Used Substance Use Topics Alcohol use: No Drug use: No EXAM: BP 105/68 Pulse 103 Resp 16 Wt 55 kg (121 lb 4.1 oz) SpO2 94% BMI (P) 19.86 kg/m General Appearance: Well appearing, alert, in no acute distress, well-hydrated, well nourished.. Lungs: decreased breath sounds, diffuse rhonchi Heart: RRR without murmur, gallop, or rubs. No ectopy. Health Maintenance List Pneumococcal Vaccine: 50+(2 of 2 - PCV) due on 09/17/2006 RSV Vaccine(1 - Risk 60-74 years 1-dose series) Never done Colorectal Cancer Screening due on 11/20/2022 Lipid Screening due on 12/10/2022 Mammogram Screening due on 05/20/2023 Shingrix Vaccine(2 of 2) due on 03/06/2024 Bone Density Screening due on 11/18/2024 Advance Directive Discussion Never done Covid-19 Vaccine(2023- season) due on 05/25/2025 Depression Screening due on 06/09/2025 Anxiety Screening due on 06/09/2025 Lung Cancer Screening due on 07/11/2025 Annual PCP Team Chronic Disease Visit due on 02/06/2026 DTaP,Tdap,Td Vaccine(3 - Td or Tdap) due on 03/23/2026 Diabetes Screening due on 12/20/2027 Hepatitis C Screening Completed HIV Screening Completed Influenza Vaccine Discontinued Data reviewed none ASSESSMENT/PLAN: 1. Falls - ICD9: V15.88, ICD10: R29.6 (primary diagnosis) PT; check labs, follow with Neuro - CONSULT TO PHYSICAL THERAPY - COMPREHENSIVE METABOLIC PANEL - COMPLETE BLOOD COUNT - VITAMIN B12 2. Need for vaccination - ICD9: V05.9, ICD10: Z23 - PNEUMOCOCCAL VACCINE, 20 VALENT (PREVNAR 20) 3. Bipolar I disorder, most recent episode (or current) depressed, severe, specified as with psychotic behavior (HCC) - ICD9: 296.54, ICD10: F31.5 - COMPREHENSIVE METABOLIC PANEL - COMPLETE BLOOD COUNT 4. Chronic obstructive pulmonary disease, unspecified COPD type (HCC) - ICD9: 496, ICD10: J44.9 - Symptoms controlled - Continue current medications - Follow with Pulm - Smoking cessation - COMPLETE BLOOD COUNT 5. Tobacco use disorder - ICD9: 305.1, ICD10: F17.200 - Cessation encouraged. - Physiologic and physical aspects of tobacco addiction as well as strategies for quitting were discussed. - Counseling was given focusing on the harmful effects of this addiction especially given the patient's medical condition(s) which will be worsened because of the chemicals in tobacco. 6. Cognitive changes - ICD9: 799.59, ICD10: R41.89 Check labs - VITAMIN B12 7. Elevated glucose - ICD9: 790.29, ICD10: R73.09 - COMPREHENSIVE METABOLIC PANEL - HEMOGLOBIN A1C 8. Balance disorder - ICD9: 781.99, ICD10: R26.89 - CONSULT TO PHYSICAL THERAPY - COMPREHENSIVE METABOLIC PANEL - COMPLETE BLOOD COUNT - VITAMIN B12 Follow up prn I agree with the Chief Complaint, ROS, and Past Histories independently gathered by the clinical client support professional and the remaining scribed note accurately describes my personal service to the patient. Medical Decision Making: Problems: Moderate: 1+ chronic illnesses with change and New problem with uncertain prognosis Data: Unique test(s) ordered: 2 Risk: Moderate: Drug management Medical Decision Making Level: 4 - Moderate Teresa Aguilar MD The documentation for this note was completed by Lennie Khan MA acting as scribe for Teresa Aguilar MD. February 27, 2025 1:10 PM. Lennie Khan MA documented in this encounter [facility] 02-27-2025 Note HNO ID: [id number] Author: TERESA AGUILAR MD Service: ? Author Type: Physician Type: Progress Notes Filed: 02/27/2025 17:38 Note Text: Chief Complaint Patient presents with: Follow Up: dizziness HPI Albania Ramsey is a 64 year old female who presents here today for follow up. Smoking half ppd. Pt here for a follow up for dizziness which is getting worse. She states that she has had this for several months. Pt saw Emeli Spivey 02/06/25. At that time she complained of nausea and felt like room was spinning, each episode lasting around 30 minutes. Admits to having blurry vision occ in Right eye. Meclizine helps with the nausea. Memory: Follows with Neuro who ordered brain MRI. Pt has not completed yet. Has mentioned dizziness in past visits with Neuro. Has also had low BP in past. [facility] notified PCP that pt is more unsteady and is declining cognitively. Emeli was waiting response from pt Psychiatrist about stopping the Prozosin to see if BP would improve. Psych called back and stated that she was told to stop that medication in Apr 2024 due to low BP. Also pt is non-compliant with wearing her Oxygen, should be using 2 L continually. Thrush: was treated with Nystatin suspension. Intermittent right side pain x 3-4 months. She states it is a throbbing pain. Has used heat. Has not tried taking anything for pain. No injury that she is aware of. Past medical history, appointments, medications, allergies reviewed. Previous Medical History PAST MEDICAL HISTORY Diagnosis Date Asthma (HCC) Bipolar I disorder, most recent episode (or current) unspecified Blood dyscrasia Chronic obstructive pulmonary disease (COPD) (HCC) Dysthymic disorder Depression (non-psychotic) Lumbago Osteoarthritis Pulmonary embolus (HCC) 25 years prior Schizophrenia (HCC) follows with Dr Bill at [facility] Snoring Tobacco use disorder 1/2 ppd since age of 11 Previous Surgical History PAST SURGICAL HISTORY Procedure Laterality Date APPENDECTOMY 1984 COLONOSCOPY FLX DX W/COLLJ SPEC WHEN PFRMD 10/19/2018 Colonoscopy COLONOSCOPY FLX DX W/COLLJ SPEC WHEN PFRMD 11/21/2019 Colonoscopy COLSC FLX W/RMVL OF TUMOR POLYP LESION SNARE TQ 04/19/2012 4 polyps - 3 yr follow up EGD TRANSORAL BIOPSY SINGLE/MULTIPLE 04/19/2012 gastritis ESOPHAGOGASTRODUODENOSCOPY TRANSORAL DIAGNOSTIC 11/21/2019 EGD EXC BREAST LES PREOP PLMT RAD MARKER OPEN 1 LES Left 11/18/2016 Mild duct ectasia, benign microcalcifications HERNIA REPAIR HX 90s Lt inguinal LAPAROSCOPY COLECTOMY PARTIAL W/ANASTOMOSIS 12/19/2018 laparscopic right hemicolectomy LAPAROSCOPY SURG CHOLECYSTECTOMY 1982 Cholecystectomy, lap LAPS ABD PRTMANDOMENTUM DX W/WO SPEC BR/WA SPX Laparoscopy PAST SURGICAL HISTORY OF 10/27/2010 L5-S1 Microdisckectomy PAST SURGICAL HISTORY OF Left 11/18/2016 breast bx-Dr. Wise PT ED ORTHOPAEDICS Right 08/04/2023 Shoulder replacement SURGICAL ARTHROSCOPY FAM W/CORACOACRM LIGM RLS Right 11/27/2020 Right shoulder arthroscopy, glenohumeral chondroplasty, biceps tenotomy, SAD TOTAL ABDOMINAL HYSTERECT W/WO RMVL TUBE OVARY 1982 Hysterectomy, VALDEMAR Family History FAMILY HISTORY Problem Relation Age of Onset Blood Disease Mother Diabetes Mother Colon Cancer Mother Breast Cancer Mother other (Bleeding disorder) Mother Cancer Father prostate Prostate Cancer Father Diabetes Sister Heart disease Sister other (HTN) Sister Stroke Sister other (Same issues as other sister) Sister Cervical Cancer Maternal Aunt Breast Cancer Other cousin Patient Allergies ALLERGIES Allergen Reactions Demoral [Meperidine] Rash Desyrel [Trazodone * Rash Doxycycline Hives Erythromycin Rash Levaquin [Levofloxa* Rash Morphine Swelling Prednisone Rash Current Medications Current Outpatient Medications on File Prior to Visit Medication Sig nystatin (MYCOSTATIN) 100,000 unit/mL suspension Take 5 mL by mouth four times daily. Swish and swallow. meloxicam (MOBIC) 7.5 mg tablet Take 1 tablet by mouth once daily. cyclobenzaprine (FLEXERIL) 10 mg tablet Take 1 tablet by mouth three times a day. meclizine (ANTIVERT) 25 mg tab Take 1 tablet by mouth every 6 hours as needed (dizziness). fluticasone-salmeterol (ADVAIR DISKUS) 250-50 mcg/dose inhaler Inhale 1 Puff as instructed two times a day. OXYGEN, HOME THERAPY, 2 L/min by Nasal Cannula route continuous. cholecalciferol, Vitamin D3, (VITAMIN D3) 1,250 mcg (50,000 unit) cap capsule Take 1 capsule by mouth one time a week. ondansetron (ZOFRAN) 4 mg tablet Take 1 tablet by mouth every 8 hours as needed for up to [address] (PROTONIX) 20 mg tablet Take 1 tablet by mouth daily before breakfast. Take on empty stomach, 1/2 hr before meal. melatonin 10 mg tab Take 1 tablet by mouth at bedtime as needed. QUEtiapine (SEROQUEL) 400 mg tablet take 2 tablets by mouth once daily at bedtime albuter (more content not included)... [facility] 02-27-2025 Telephone encounter Note The following approved medication requests have been transmitted electronically. Requested Prescriptions Pending Prescriptions Disp Refills cholecalciferol, Vitamin D3, (VITAMIN D3) 1,250 mcg (50,000 unit) cap capsule 4 capsule 11 Sig: Take 1 capsule by mouth one time a week. pantoprazole DR (PROTONIX) 20 mg tablet 30 tablet 11 Sig: Take 1 tablet by mouth daily before breakfast. Take on empty stomach, 1/2 hr before meal. Josh Mirza APRN.CNP [facility] 02-27-2025 Miscellaneous Notes The following approved medication requests have been transmitted electronically. Requested Prescriptions Pending Prescriptions Disp Refills cholecalciferol, Vitamin D3, (VITAMIN D3) 1,250 mcg (50,000 unit) cap capsule 4 capsule 11 Sig: Take 1 capsule by mouth one time a week. pantoprazole DR (PROTONIX) 20 mg tablet 30 tablet 11 Sig: Take 1 tablet by mouth daily before breakfast. Take on empty stomach, 1/2 hr before meal. Josh Mirza APRN.CNP Prescription Refill Information The patient has been identified by name and date of : Yes Caregiver verified no other encounters exist for this prescription request: Yes Caregiver confirmed with patient/requestor that no other refills are due, in the near future, with this provider at this time: Yes The last office visit in the department: 02-06-25 Does the patient have a future office visit with this provider/department: Yes Requested Prescriptions Pending Prescriptions Disp Refills cholecalciferol, Vitamin D3, (VITAMIN D3) 1,250 mcg (50,000 unit) cap capsule 4 capsule 11 Sig: Take 1 capsule by mouth one time a week. pantoprazole DR (PROTONIX) 20 mg tablet 30 tablet 11 Sig: Take 1 tablet by mouth daily before breakfast. Take on empty stomach, 1/2 hr before meal. Dilcia Cintron February 27, 2025 9:12 AM documented in this encounter [facility] 02-27-2025 Telephone encounter Note Prescription Refill Information The patient has been identified by name and date of : Yes Caregiver verified no other encounters exist for this prescription request: Yes Caregiver confirmed with patient/requestor that no other refills are due, in the near future, with this provider at this time: Yes The last office visit in the department: 02-06-25 Does the patient have a future office visit with this provider/department: Yes Requested Prescriptions Pending Prescriptions Disp Refills cholecalciferol, Vitamin D3, (VITAMIN D3) 1,250 mcg (50,000 unit) cap capsule 4 capsule 11 Sig: Take 1 capsule by mouth one time a week. pantoprazole DR (PROTONIX) 20 mg tablet 30 tablet 11 Sig: Take 1 tablet by mouth daily before breakfast. Take on empty stomach, 1/2 hr before meal. Dilcia Cintron February 27, 2025 9:12 AM [facility] 02-22-2025 Telephone encounter Note Noted Teresa Aguilar MD [facility] 02-22-2025 Miscellaneous Notes Noted Tereas Aguilar MD Arielle from [employer] in [place] calls and states that patient is going to daycare x 5 days a week. Patient is more unstable and they have noticed that patient is declining cognitively. Patient also has been very unstable on her feet. Arielle states that they will keep watching patient and let provider know if they see any more changes. Nighat Scales RN documented in this encounter [facility] 02-22-2025 Telephone encounter Note Arielle from [facility] in [place] calls and states that patient is going to daycare x 5 days a week. Patient is more unstable and they have noticed that patient is declining cognitively. Patient also has been very unstable on her feet. Arielle states that they will keep watching patient and let provider know if they see any more changes. Nighat Scales RN [facility] 02-16-2025 Telephone encounter Note noted [facility] 02-16-2025 Miscellaneous Notes noted Patient returns call and message below reviewed. Patient reports she is not taking prazosin. Machelle Colon RN Called Pt and no answer. Pt did not have voicemail set up. Will need to call back. Maude Scott RN Please let patient know that per psych, she was told to stop prazosin back in April of 2024 due to low BP. Have her make sure she is no longer on this medication since she told us she was still taking it. Then otherwise keep follow up with PCP to discuss her dizziness. . Emeli Spivey PA-C [facility]ab L[facility]ING from [facility] returned call and said patient was having low blood pressure back in April and the prazosin was stopped then. Called counseling center again. 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 Was transferred to [facility]. Advised her of what office is needing to find out and also advised this nurse had sent a fax last week regarding this. She advises that the biomedical engineering supervisor is handling messages. She transferred this nurse to the medication line. This nurse left detailed message of information Emeli is wanting to find out regarding pt's medication. Asked that someone call back and speak with a Triage Nurse regarding this. Gia Solomon LPN Faxed a copy of Emeli's message to [facility] for Zainab to address d/t have not received a call back yet. Gia Solomon LPN Left message for Zainab's nurse Alivia to call for Emeli's message. does advise it may take 3 business days to address messages. Gia Solomon LPN Please contact [facility]. Patient sees Zainab and she has her on prazosin at night. Patient evaluated today for dizziness worse in morning and right before bed. Her BP in office was low and +orthostatic hypotension. Does she think prazosin could be switched to something else or at least dose adjusted? Thanks. Emeli documented in this encounter [facility] 02-16-2025 Telephone encounter Note Patient returns call and message below reviewed. Patient reports she is not taking prazosin. Machelle Colon RN [facility] 02-16-2025 Telephone encounter Note Called Pt and no answer. Pt did not have voicemail set up. Will need to call back. Maude Scott RN [facility] 02-16-2025 Telephone encounter Note Please let patient know that per psych, she was told to stop prazosin back in April of 2024 due to low BP. Have her make sure she is no longer on this medication since she told us she was still taking it. Then otherwise keep follow up with PCP to discuss her dizziness. . Emeli Spivey PA-C [facility] 02-15-2025 Telephone encounter Note Zainab PORTABLE TRACK CREW CHIEF from the [facility] returned call and said patient was having low blood pressure back in April and the prazosin was stopped then. [facility] 02-12-2025 Telephone encounter Note Called counseling center again. 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 Was transferred to [facility]. Advised her of what office is needing to find out and also advised this nurse had sent a fax last week regarding this. She advises that the biomedical engineering supervisor is handling messages. She transferred this nurse to the medication line. This nurse left detailed message of information Emeli is wanting to find out regarding pt's medication. Asked that someone call back and speak with a Triage Nurse regarding this. Gia Solomon LPN [facility] 02-08-2025 Telephone encounter Note Faxed a copy of Emeli's message to [facility] for Zainab to address d/t have not received a call back yet. Gia Solomon LPN [facility] 02-06-2025 Telephone encounter Note Please assist pt to schedule MRIs ordered. Blossom Ivan MA [facility] 02-06-2025 Miscellaneous Notes Please assist pt to schedule MRIs ordered. Blossom Ivan MA Patient needs help getting neurology work up scheduled. (MRIs) documented in this encounter [facility] 02-06-2025 Telephone encounter Note Left message for Zainab's nurse Alivia to call for Emeli's message. does advise it may take 3 business days to address messages. Gia Solomon LPN [facility] 02-06-2025 Telephone encounter Note Patient needs help getting neurology work up scheduled. (MRIs) [facility] 02-06-2025 Telephone encounter Note Please contact [facility]. Patient sees Zainab and she has her on prazosin at night. Patient evaluated today for dizziness worse in morning and right before bed. Her BP in office was low and +orthostatic hypotension. Does she think prazosin could be switched to something else or at least dose adjusted? Thanks. Sainz [facility] 02-06-2025 Note HNO ID: [id number] Author: EMELI SPIVEY PA-C Service: ? Author Type: Physician Lithographic Proofer Type: Progress Notes Filed: 02/06/2025 13:06 Note Text: Chief Complaint Patient presents with: Dizziness: X 1 month HPI [place] Ramsey is a 64 year old female who presents here today for dizziness x1 mon daily. States she feels like the room is spinning and is nauseous with each episode. Lasts about 30 min each. Denies hearing loss or tinnitus. Nothing makes it worse, meclizine helps some with the nausea. Has blurry vision occasionally in the R. Denies new meds in the past month. Smokes 1/2 PPD. Patient with a PMHx of: Bipolar I, Schizophrenia, COPD, Smoking/tobacco use disorder, States she has been experiencing memory issues for some time now, due to this, her history today does not entirely correlate with previous visits she had for the same complaint, she is a poor historian. She does not recall seeing neurology last month and is not compliant with her O2 which is supposed to be continuous. She presents today only on room air. Neurology ordered a brain and spine MRI 12/19/24 which has not been done yet. According to previous visits, the dizziness has been ongoing for years. Her BP has also been on the low end the past few years and in office today. Last 10 Encounter BP Readings: Date: BP: 02/06/2025 101/72 12/19/2024 122/77 11/22/2024 110/80 06/09/2024 127/82 04/25/2024 112/74 03/29/2024 96/72 12/01/2023 90/60 10/11/2023 110/82 08/18/2023 99/61 08/04/2023 105/84] Last 6 Encounter Pulse Readings: Date: Pulse: 02/06/2025 110 12/19/2024 53 11/22/2024 107 06/09/2024 95 04/25/2024 96 03/29/2024 103 Past medical history, appointments, medications, allergies reviewed. Previous Medical History PAST MEDICAL HISTORY Diagnosis Date Asthma (HCC) Bipolar I disorder, most recent episode (or current) unspecified Blood dyscrasia Chronic obstructive pulmonary disease (COPD) (HCC) Dysthymic disorder Depression (non-psychotic) Lumbago Osteoarthritis Pulmonary embolus (HCC) 25 years prior Schizophrenia (HCC) follows with Dr Bill at [facility] Snoring Tobacco use disorder 1/2 ppd since age of 11 Previous Surgical History PAST SURGICAL HISTORY Procedure Laterality Date APPENDECTOMY 1985 COLONOSCOPY FLX DX W/COLLJ SPEC WHEN PFRMD 10/19/2018 Colonoscopy COLONOSCOPY FLX DX W/COLLJ SPEC WHEN PFRMD 11/21/2019 Colonoscopy COLSC FLX W/RMVL OF TUMOR POLYP LESION SNARE TQ 04/19/2012 4 polyps - 3 yr follow up EGD TRANSORAL BIOPSY SINGLE/MULTIPLE 04/19/2012 gastritis ESOPHAGOGASTRODUODENOSCOPY TRANSORAL DIAGNOSTIC 11/21/2019 EGD EXC BREAST LES PREOP PLMT RAD MARKER OPEN 1 LES Left 11/18/2016 Mild duct ectasia, benign microcalcifications HERNIA REPAIR HX 90s Lt inguinal LAPAROSCOPY COLECTOMY PARTIAL W/ANASTOMOSIS 12/19/2018 laparscopic right hemicolectomy LAPAROSCOPY SURG CHOLECYSTECTOMY 1981 Cholecystectomy, lap LAPS ABD PRTMANDOMENTUM DX W/WO SPEC BR/WA SPX Laparoscopy PAST SURGICAL HISTORY OF 10/27/2010 L5-S1 Microdisckectomy PAST SURGICAL HISTORY OF Left 11/18/2016 breast bx-Dr. Wise PT ED ORTHOPAEDICS Right 08/04/2023 Shoulder replacement SURGICAL ARTHROSCOPY FAM W/CORACOACRM LIGM RLS Right 11/27/2020 Right shoulder arthroscopy, glenohumeral chondroplasty, biceps tenotomy, SAD TOTAL ABDOMINAL HYSTERECT W/WO RMVL TUBE OVARY 1982 Hysterectomy, VALDEMAR Family History FAMILY HISTORY Problem Relation Age of Onset Blood Disease Mother Diabetes Mother Colon Cancer Mother Breast Cancer Mother other (Bleeding disorder) Mother Cancer Father prostate Prostate Cancer Father Diabetes Sister Heart disease Sister other (HTN) Sister Stroke Sister other (Same issues as other sister) Sister Cervical Cancer Maternal Aunt Breast Cancer Other cousin Patient Allergies ALLERGIES Allergen Reactions Demoral [Meperidine] Rash Desyrel [Trazodone * Rash Doxycycline Hives Erythromycin Rash Levaquin [Levofloxa* Rash Morphine Swelling Prednisone Rash Current Medications Current Outpatient Medications on File Prior to Visit Medication Sig meloxicam (MOBIC) 7.5 mg tablet Take 1 tablet by mouth once daily. cyclobenzaprine (FLEXERIL) 10 mg tablet Take 1 tablet by mouth three times a day. meclizine (ANTIVERT) 25 mg tab Take 1 tablet by mouth every 6 hours as needed (dizziness). fluticasone-salmeterol (ADVAIR DISKUS) 250-50 mcg/dose inhaler Inhale 1 Puff as instructed two times a day. OXYGEN, HOME THERAPY, 2 L/min by Nasal Cannula route continuous. cholecalciferol, Vitamin D3, (VITAMIN D3) 1,250 mcg (50,000 unit) cap capsule Take 1 capsule by mouth one time a week. ondansetron (ZOFRAN) 4 mg tablet Take 1 tablet by mouth every 8 hours as needed for up to [address] (PROTONIX) 20 mg tablet Take 1 tablet by mouth daily before breakfast. Take on empty stomach, 1/2 hr befor (more content not included)... [facility] 02-06-2025 History of Present illness Narrative Chief Complaint Patient presents with: Dizziness: X 1 month HPI Albania Ramsey is a 64 year old female who presents here today for dizziness x1 mon daily. States she feels like the room is spinning and is nauseous with each episode. Lasts about 30 min each. Denies hearing loss or tinnitus. Nothing makes it worse, meclizine helps some with the nausea. Has blurry vision occasionally in the R. Denies new meds in the past month. Smokes 1/2 PPD. Patient with a PMHx of: Bipolar I, Schizophrenia, COPD, Smoking/tobacco use disorder, States she has been experiencing memory issues for some time now, due to this, her history today does not entirely correlate with previous visits she had for the same complaint, she is a poor historian. She does not recall seeing neurology last month and is not compliant with her O2 which is supposed to be continuous. She presents today only on room air. Neurology ordered a brain and spine MRI 12/19/24 which has not been done yet. According to previous visits, the dizziness has been ongoing for years. Her BP has also been on the low end the past few years and in office today. Last 10 Encounter BP Readings: Date: BP: 02/06/2025 101/72 12/19/2024 122/77 11/22/2024 110/80 06/09/2024 127/82 04/25/2024 112/74 03/29/2024 96/72 12/01/2023 90/60 10/11/2023 110/82 08/18/2023 99/61 08/04/2023 105/84] Last 6 Encounter Pulse Readings: Date: Pulse: 02/06/2025 110 12/19/2024 53 11/22/2024 107 06/09/2024 95 04/25/2024 96 03/29/2024 103 Past medical history, appointments, medications, allergies reviewed. Previous Medical History PAST MEDICAL HISTORY Diagnosis Date Asthma (HCC) Bipolar I disorder, most recent episode (or current) unspecified Blood dyscrasia Chronic obstructive pulmonary disease (COPD) (HCC) Dysthymic disorder Depression (non-psychotic) Lumbago Osteoarthritis Pulmonary embolus (HCC) 25 years prior Schizophrenia (HCC) follows with Dr Bill at [facility] Snoring Tobacco use disorder 1/2 ppd since age of 11 Previous Surgical History PAST SURGICAL HISTORY Procedure Laterality Date APPENDECTOMY 1985 COLONOSCOPY FLX DX W/COLLJ SPEC WHEN PFRMD 10/19/2018 Colonoscopy COLONOSCOPY FLX DX W/COLLJ SPEC WHEN PFRMD 11/21/2019 Colonoscopy COLSC FLX W/RMVL OF TUMOR POLYP LESION SNARE TQ 04/19/2012 4 polyps - 3 yr follow up EGD TRANSORAL BIOPSY SINGLE/MULTIPLE 04/19/2012 gastritis ESOPHAGOGASTRODUODENOSCOPY TRANSORAL DIAGNOSTIC 11/21/2019 EGD EXC BREAST LES PREOP PLMT RAD MARKER OPEN 1 LES Left 11/18/2016 Mild duct ectasia, benign microcalcifications HERNIA REPAIR HX 90s Lt inguinal LAPAROSCOPY COLECTOMY PARTIAL W/ANASTOMOSIS 12/19/2018 laparscopic right hemicolectomy LAPAROSCOPY SURG CHOLECYSTECTOMY 1982 Cholecystectomy, lap LAPS ABD PRTM&OMENTUM DX W/WO SPEC BR/WA SPX Laparoscopy PAST SURGICAL HISTORY OF 10/27/2010 L5-S1 Microdisckectomy PAST SURGICAL HISTORY OF Left 11/18/2016 breast bx-Dr. Wise PT ED ORTHOPAEDICS Right 08/04/2023 Shoulder replacement SURGICAL ARTHROSCOPY FAM W/CORACOACRM LIGM RLS Right 11/27/2020 Right shoulder arthroscopy, glenohumeral chondroplasty, biceps tenotomy, SAD TOTAL ABDOMINAL HYSTERECT W/WO RMVL TUBE OVARY 1982 Hysterectomy, VALDEMAR Family History FAMILY HISTORY Problem Relation Age of Onset Blood Disease Mother Diabetes Mother Colon Cancer Mother Breast Cancer Mother other (Bleeding disorder) Mother Cancer Father prostate Prostate Cancer Father Diabetes Sister Heart disease Sister other (HTN) Sister Stroke Sister other (Same issues as other sister) Sister Cervical Cancer Maternal Aunt Breast Cancer Other cousin Patient Allergies ALLERGIES Allergen Reactions Demoral [Meperidine] Rash Desyrel [Trazodone * Rash Doxycycline Hives Erythromycin Rash Levaquin [Levofloxa* Rash Morphine Swelling Prednisone Rash Current Medications Current Outpatient Medications on File Prior to Visit Medication Sig meloxicam (MOBIC) 7.5 mg tablet Take 1 tablet by mouth once daily. cyclobenzaprine (FLEXERIL) 10 mg tablet Take 1 tablet by mouth three times a day. meclizine (ANTIVERT) 25 mg tab Take 1 tablet by mouth every 6 hours as needed (dizziness). fluticasone-salmeterol (ADVAIR DISKUS) 250-50 mcg/dose inhaler Inhale 1 Puff as instructed two times a day. OXYGEN, HOME THERAPY, 2 L/min by Nasal Cannula route continuous. cholecalciferol, Vitamin D3, (VITAMIN D3) 1,250 mcg (50,000 unit) cap capsule Take 1 capsule by mouth one time a week. ondansetron (ZOFRAN) 4 mg tablet Take 1 tablet by mouth every 8 hours as needed for up to [address] (PROTONIX) 20 mg tablet Take 1 tablet by mouth daily before breakfast. Take on empty stomach, 1/2 hr before meal. melatonin 10 mg tab Take 1 tablet by mouth at bedtime as needed. QUEtiapine (SEROQUEL) 400 mg tablet take 2 tablets by mouth once daily at bedtime albuterol (PROVENTIL) 2.5 mg /3 mL (0.083 %) nebulizer solution Use 3 mL via nebulizer every 4 hours as needed for wheezing/shortness of breath. Use over 5-15minutes. lamoTRIgine (LAMICTAL) 150 mg tablet Take 1 tablet by mouth three times daily as needed. albuterol HFA (PROVENTIL HFA, VENTOLIN HFA) 90 mcg/actuation inhaler Inhale 2 Puffs as instructed every 4 hours as needed for Wheezing/Shortness of Breath. prazosin (MINIPRESS) 2 mg cap Take 2 mg by mouth daily at bedtime. sertraline (ZOLOFT) 50 mg tablet Take 50 mg by mouth once daily. benztropine (COGENTIN) 1 mg tablet Take 1 mg by mouth twice daily. No current facility-administered medications on file prior to visit. Social History Social History Tobacco Use Smoking status: Every Day Current packs/day: 0.50 Average packs/day: 0.5 packs/day for 52.6 years (26.3 ttl pk-yrs) Types: Cigarettes Start date: 10/02/1972 Passive exposure: Past Smokeless tobacco: Never Tobacco comments: start age 11, average of 1.5 PPD since, currently smoking 0.5 PPD Vaping Use Vaping status: Never Used Substance Use Topics Alcohol use: No Drug use: No Review of Symptoms REVIEW OF SYSTEMS GENERAL: No weight loss, malaise or fevers HEENT: No changes in hearing or vision, recent sinus congestion or other nasal problems PSYCH: deferred - sees psych EXAM: BP 101/72 (BP Site: Left Arm, BP Position: Sitting, BP Cuff Size: Regular Adult) Pulse 110 Temp 37.2 C (98.9 F) Resp 16 Wt 52.6 kg (116 lb) SpO2 93% BMI (P) 19.00 kg/m General Appearance: Well appearing, alert, in no acute distress, well-hydrated, well nourished.. Eyes: Anicteric sclera. Pupils are equally round and reactive to light. Extraocular movements are intact. . Ears: External ears normal, canals clear. Nose/Sinuses: Nares normal, septum midline, mucosa normal, no drainage or sinus tenderness. Lungs: Lungs clear to auscultation. No wheezing, rhonchi, rales.. Heart: Distant heart sounds, RRR without murmur, gallop, or rubs. Oropharynx: White plaques in back of throat Neuro: CN1-12 grossly intact. Involuntary limb movements noted. Neg dai hallpike maneuver Health Maintenance List Pneumococcal Vaccine: 50+(2 of 2 - PCV) due on 09/17/2006 RSV Vaccine(1 - Risk 60-74 years 1-dose series) Never done Colorectal Cancer Screening due on 11/20/2022 Lipid Screening due on 12/10/2022 Mammogram Screening due on 05/20/2023 Shingrix Vaccine(2 of 2) due on 03/06/2024 Bone Density Screening due on 11/18/2024 Advance Directive Discussion Never done Covid-19 Vaccine() due on 05/25/2025 Depression Screening due on 06/09/2025 Anxiety Screening due on 06/09/2025 Lung Cancer Screening due on 07/11/2025 Annual PCP Team Chronic Disease Visit due on 11/22/2025 BP Controlled (<130/80) due on 12/19/2025 DTaP,Tdap,Td Vaccine(3 - Td or Tdap) due on 03/23/2026 Diabetes Screening due on 12/20/2027 Hepatitis C Screening Completed HIV Screening Completed Influenza Vaccine Discontinued Data reviewed 02/06/25 1135 02/06/25 1159 02/06/25 1203 02/06/25 1205 BP: 101/72 Pulse: 110 Temp: 37.2 C (98.9 F) Resp: 16 SpO2: 93% Weight: 52.6 kg (116 lb) Orthostatic BP: 101/79 91/64 91/65 BP Position: Sitting Supine Standing Sitting Orthostatic Pulse: 110 115 118 ASSESSMENT/PLAN: 1. Postural hypotension - ICD9: 458.0, ICD10: I95.1 (primary diagnosis) Orthostatic BP performed in office with systolic values decreasing by 10 and diastolic values decreasing by >10. This test did provoke some dizziness in the patient. She is on prazosin prescribed by psychiatry, which could be a potential cause of her hypotension. We will reach out to her psych provider to discuss further and determine if she can trial stopping this medication. - it is still unclear if this is the main source for patient's symptoms. 2. Benign paroxysmal positional vertigo, unspecified laterality - ICD9: 386.11, ICD10: H81.10 Patient states the dizziness occurs in the morning and before bed, will wait for pysch response to see if we can stop prazosin and see if that improves the BP. Will follow up with patient in two weeks with her PCP Dr.. Aguilar. 3. Chronic hypoxemic respiratory failure (HCC) - ICD9: 518.83, 799.02, ICD10: J96.11 Patient should be on 2L O2 continuously but is non-compliant and states she does not use it continuously due to inconvenience of it. 4. Oral candidiasis - ICD9: 112.0, ICD10: B37.0 Areas of white plaques noted on physical exam, this is most likely due to being on an inhaled corticosteroid. Prescribed nystatin rinse today. We discussed the Prazosin potentially causing her hypotension and dizziness symptoms. We also talked about scheduling the MRI so we can find out more details or other sources of her symptoms. Follow up with PCP in 1-2 weeks for reassessment Bianca PLASENCIA I have personally seen and examined the patient and performed the medical-decision making components. I have reviewed the Physician Lithographic Proofer (PA) student's documentation and verified the findings in the note as written. Any additions or changes are noted in bold/italics. Emeli Spivey PA-C documented in this encounter [facility] 02-06-2025 Telephone encounter Note Protocol recommends see provider within 24 hours. Pt booked for an appt with Emeli Spivey at 1140 am today. Pt is currently at [facility]. States she is outside. Pt has COPD and is on O2 continuously at 2L/NC. Asked pt to contact a nurse to check her BP, P and oxygen level. Pt states nurse is not around. Called [facility] and LM for nurse to take pt's VS and call us back with those. Lost the call during conversation. Called and spoke with Osvaldo with transportation with [employer] and asked if he could get pt here for an appt at 1125 arrival. He states that is doable and he will let pt know. When attempted to contact pt back, phone line issues with static. But pt did hear that we were going to make an appt. Per Osvaldo in transportation, if pt is outside, he states she is probably smoking as he has observed that she still smokes. Pt also c/o memory issues, but saw Cora Gil for this in December. Reason for Disposition [1] MODERATE dizziness (e.g., interferes with normal activities) AND [2] has NOT been evaluated by doctor (or PORTABLE TRACK CREW CHIEF/PA) for this (Exception: Dizziness caused by heat exposure, sudden standing, or poor fluid intake.) Answer Assessment - Initial Assessment Questions 1. DESCRIPTION: feels dizzy when she gets up every morning and every evening for about a week. Currently states the dizziness is almost gone. States she also sees spots in her right eye only when she has the dizziness. No spots at this time. Some days the dizziness lasts only about 30 mins and some days (states approx 2-3 of the past week), lasted a few hours. 2. LIGHTHEADED: Denies feeling somewhat faint, woozy, or weak upon standing. States feels very unsteady. 3. VERTIGO: Denies feeling like herself or the room is spinning or tilting. 4. SEVERITY: moderate - MILD: Feels slightly dizzy, but walking normally. - MODERATE: Feels unsteady when walking, but not falling; interferes with normal activities (e.g., school, work). - SEVERE: Unable to walk without falling, or requires assistance to walk without falling; feels like passing out now. 5. ONSET: about a week ago. 6. AGGRAVATING FACTORS: change in head position 7. HEART RATE: pt unable to 8. CAUSE: pt unsure 9. RECURRENT SYMPTOM:Yes. Pt states she saw Nga Ferrer in the past and was prescribed Meclizine which she took this morning at 730 am. Dizziness started at 7 am today. Meclizine helps some. Appears pt was initially prescribed Meclizine from the ER in 09/2023. Pt continued asking for refills through 07/2024. Then did not ask again for refills until 12/2024. Appears pt has dizzy spells routinely. 10. OTHER SYMPTOMS: Denies fever, chest pain, vomiting, diarrhea, or any unusual bleeding. Just the spots in front of right eye. Protocols used: Dizziness - [id number] [facility] 02-06-2025 Miscellaneous Notes Protocol recommends see provider within 24 hours. Pt booked for an appt with Emeli Spivey at 1140 am today. Pt is currently at [facility]. States she is outside. Pt has COPD and is on O2 continuously at 2L/NC. Asked pt to contact a nurse to check her BP, P and oxygen level. Pt states nurse is not around. Called [facility] and for nurse to take pt's VS and call us back with those. Lost the call during conversation. Called and spoke with Osvaldo with transportation with [employer] and asked if he could get pt here for an appt at 1125 arrival. He states that is doable and he will let pt know. When attempted to contact pt back, phone line issues with static. But pt did hear that we were going to make an appt. Per Osvaldo in transportation, if pt is outside, he states she is probably smoking as he has observed that she still smokes. Pt also c/o memory issues, but saw Cora Gil for this in December. Reason for Disposition [1] MODERATE dizziness (e.g., interferes with normal activities) AND [2] has NOT been evaluated by doctor (or PORTABLE TRACK CREW CHIEF/PA) for this (Exception: Dizziness caused by heat exposure, sudden standing, or poor fluid intake.) Answer Assessment - Initial Assessment Questions 1. DESCRIPTION: feels dizzy when she gets up every morning and every evening for about a week. Currently states the dizziness is almost gone. States she also sees spots in her right eye only when she has the dizziness. No spots at this time. Some days the dizziness lasts only about 30 mins and some days (states approx 2-3 of the past week), lasted a few hours. 2. LIGHTHEADED: Denies feeling somewhat faint, woozy, or weak upon standing. States feels very unsteady. 3. VERTIGO: Denies feeling like herself or the room is spinning or tilting. 4. SEVERITY: moderate - MILD: Feels slightly dizzy, but walking normally. - MODERATE: Feels unsteady when walking, but not falling; interferes with normal activities (e.g., school, work). - SEVERE: Unable to walk without falling, or requires assistance to walk without falling; feels like passing out now. 5. ONSET: about a week ago. 6. AGGRAVATING FACTORS: change in head position 7. HEART RATE: pt unable to 8. CAUSE: pt unsure 9. RECURRENT SYMPTOM:Yes. Pt states she saw Nga Tannhof in the past and was prescribed Meclizine which she took this morning at 730 am. Dizziness started at 7 am today. Meclizine helps some. Appears pt was initially prescribed Meclizine from the ER in 09/2023. Pt continued asking for refills through 07/2024. Then did not ask again for refills until 12/2024. Appears pt has dizzy spells routinely. 10. OTHER SYMPTOMS: Denies fever, chest pain, vomiting, diarrhea, or any unusual bleeding. Just the spots in front of right eye. Protocols used: Dizziness - [id number] documented in this encounter [facility] 01-29-2025 Telephone encounter Note The following approved medication requests have been transmitted electronically. Requested Prescriptions Pending Prescriptions Disp Refills meloxicam (MOBIC) 7.5 mg tablet 30 tablet 2 Sig: Take 1 tablet by mouth once daily. Josh Mirza APRN.CNP [facility] 01-29-2025 Miscellaneous Notes The following approved medication requests have been transmitted electronically. Requested Prescriptions Pending Prescriptions Disp Refills meloxicam (MOBIC) 7.5 mg tablet 30 tablet 2 Sig: Take 1 tablet by mouth once daily. Josh Mirza APRN.CNP Prescription Refill Information The patient has been identified by name and date of : Yes Caregiver verified no other encounters exist for this prescription request: Yes Caregiver confirmed with patient/requestor that no other refills are due, in the near future, with this provider at this time: Yes The last office visit in the department: 11/22/24 Does the patient have a future office visit with this provider/department: Yes 02/01/25 Requested Prescriptions Pending Prescriptions Disp Refills meloxicam (MOBIC) 7.5 mg tablet 30 tablet 2 Sig: Take 1 tablet by mouth once daily. Kathi Felder LPN January 29, 2025 10:33 AM documented in this encounter [facility] 01-29-2025 Telephone encounter Note Prescription Refill Information The patient has been identified by name and date of : Yes Caregiver verified no other encounters exist for this prescription request: Yes Caregiver confirmed with patient/requestor that no other refills are due, in the near future, with this provider at this time: Yes The last office visit in the department: 11/22/24 Does the patient have a future office visit with this provider/department: Yes 02/01/25 Requested Prescriptions Pending Prescriptions Disp Refills meloxicam (MOBIC) 7.5 mg tablet 30 tablet 2 Sig: Take 1 tablet by mouth once daily. Kathi Felder LPN January 29, 2025 10:33 AM [facility] 01-18-2025 Telephone encounter Note Faxed. Lennie Khan MA [facility] 01-18-2025 Miscellaneous Notes Faxed. Lennie Khan MA Type of form: 90 day order for [facility] Form received via fax When form is completed, Fax form to [phone] Form has been forwarded to Physician Desk: Dr. Lauren Acosta MA documented in this encounter [facility] 01-16-2025 Telephone encounter Note Type of form: 90 day order for [facility] Form received via fax When form is completed, Fax form to [phone] Form has been forwarded to Physician Desk: Dr. Lauren Acosta MA [facility] 01-11-2025 Telephone encounter Note faxed [facility] 01-11-2025 Miscellaneous Notes faxed Type of letter/form/fax request - order for [employer]/area agency on aging Form received from fax on 1 floor and placed on MD desk (Dr. Aguilar) for completion. Completed form needs to be faxed to [phone]. Route to [place] when form completed for processing documented in this encounter [facility] 01-04-2025 Telephone encounter Note Type of letter/form/fax request - order for [employer]/area agency on aging Form received from fax on 1 floor and placed on MD desk (Dr. Aguilar) for completion. Completed form needs to be faxed to [phone]. Route to [place] when form completed for processing [facility] 01-02-2025 Telephone encounter Note The following approved medication requests have been transmitted electronically. Requested Prescriptions Pending Prescriptions Disp Refills cyclobenzaprine (FLEXERIL) 10 mg tablet 42 tablet 5 Sig: Take 1 tablet by mouth three times a day. Josh Mirza APRN.CNP [facility] 01-02-2025 Miscellaneous Notes The following approved medication requests have been transmitted electronically. Requested Prescriptions Pending Prescriptions Disp Refills cyclobenzaprine (FLEXERIL) 10 mg tablet 42 tablet 5 Sig: Take 1 tablet by mouth three times a day. Josh Mirza APRN.CNP Prescription Refill Information The patient has been identified by name and date of : Yes Caregiver verified no other encounters exist for this prescription request: Yes Caregiver confirmed with patient/requestor that no other refills are due, in the near future, with this provider at this time: Yes The last office visit in the department: 11-22-24 Does the patient have a future office visit with this provider/department: No Requested Prescriptions Pending Prescriptions Disp Refills cyclobenzaprine (FLEXERIL) 10 mg tablet 42 tablet 5 Sig: Take 1 tablet by mouth three times a day. Dilcia Cintron January 02, 2025 9:12 AM documented in this encounter [facility] 01-02-2025 Telephone encounter Note Prescription Refill Information The patient has been identified by name and date of : Yes Caregiver verified no other encounters exist for this prescription request: Yes Caregiver confirmed with patient/requestor that no other refills are due, in the near future, with this provider at this time: Yes The last office visit in the department: 11-22-24 Does the patient have a future office visit with this provider/department: No Requested Prescriptions Pending Prescriptions Disp Refills cyclobenzaprine (FLEXERIL) 10 mg tablet 42 tablet 5 Sig: Take 1 tablet by mouth three times a day. Dilcia Cintron January 02, 2025 9:12 AM [facility] 12-29-2024 Telephone encounter Note TC to patient who verbalized understanding of providers message below. SHYLA Burrell [facility] 12-29-2024 Miscellaneous Notes TC to patient who verbalized understanding of providers message below. SHYLA Burrell TC to patient with no answer. Unable to leave VM d/t mailbox not set up. Please try again later. SHYLA Burrell ----- Message from Cora Gil PA-C sent at 12/21/2024 10:37 AM EDT ----- Labs showing elevated blood sugar A1c, would recommend following with primary care for further monitoring. Cora Gil PA-C documented in this encounter [facility] 12-22-2024 Telephone encounter Note TC to patient with no answer. Unable to leave VM d/t mailbox not set up. Please try again later. SHYLA Burrell [facility] 12-22-2024 Telephone encounter Note ----- Message from Cora Gil PA-C sent at 12/21/2024 10:37 AM EDT ----- Labs showing elevated blood sugar A1c, would recommend following with primary care for further monitoring. Cora Gil PA-C [facility] 12-19-2024 Note HNO ID: [id number] Author: CORA GIL PA-C Service: ? Author Type: Physician Lithographic Proofer Type: Progress Notes Filed: 12/19/2024 15:41 Note Text: [facility] Name: Albania Ramsey Age: [age] year old Gender: female Primary Care Provider: Teresa Aguilar MD Consult requested for memory loss and falls by Nga Ferrer. Recommendations will be communicated via shared medical record or US mail. Chief Complaint:New Patient (C/o frequent falls, cognitive changes) 12/19/2024 - General Neurology, Cora Gil PA-C ASSESSMENT ASSESSMENT/PLAN: 1. Cognitive impairment, mild, so stated - ICD9: 331.83, ICD10: G31.84 (primary diagnosis) 2. Falls - ICD9: V15.88, ICD10: R29.6 3. Cognitive changes - ICD9: 799.59, ICD10: R41.89 4. Spinal stenosis of cervical region - ICD9: 723.0, ICD10: M48.02 5. Acute low back pain, unspecified back pain laterality, unspecified whether sciatica present - ICD9: 724.2, ICD10: M54.50 6. Spinal stenosis of lumbar region, unspecified whether neurogenic claudication present - ICD9: 724.02, ICD10: M48.061 7. Neuropathy - ICD9: 355.9, ICD10: G62.9 Patient with concerns of memory loss and frequent falls. History is extremely limited as patient presents alone and has difficulty answering questions. She notes this is only been ongoing for a few weeks but on chart review has been an ongoing issue for years. Was originally seen 2 years ago for similar concerns but when she presented at that time she had acute chest pain and was sent to the emergency department. Patient does not remember this visit, does not remember previous issues with falls or memory concerns. States that she has had a few falls over the last few weeks and is not sure why, feels her legs are giving out on her. Has history of longstanding lumbar issues, previously followed with Dr. Taylor in pain management and has had lumbar surgery in the past. No bowel bladder incontinence, saddle anesthesia or new low back pain. Exam does show full strength throughout, some decreased reflexes of the lower extremities as well as some sensory changes, slightly worse on the right lower extremity compared to the left. MoCA is concerning as she had difficulty completing this, many questions were deferred. Estimated total of 08/08. Throughout the appointment, patient had difficulty maintaining eye contact and was constantly moving on her chair, shifting. Denies any substance use or alcohol, but states she is slightly anxious. Has history of bipolar disorder and possibly schizophrenia and is on Zoloft, Lamictal and Seroquel. At this time, unclear etiology of her symptoms as history is limited. Will order MRI of the brain and spine to look for any signs of central nervous system abnormality contributing patient's symptoms including cerebral atrophy, NPH, spinal stenosis. Additionally will obtain basic blood work including toxicology report. Do not feel EMG or neuropsychological testing would be well-tolerated at this time, thus will defer these tests. Patient does currently live alone but does not drive, states she does feel safe at home and is able to complete ADLs without any issue. Does appear clean today, weight is low but within a normal BMI. Will continue to monitor. Patient agreeable to treatment plan of care at this time, questions were answered. Patient to follow-up after workup is completed with myself or Dr. Cazares. Cora Gil PA-C Encounter Diagnosis ICD-10-CM 1. Cognitive impairment, mild, so stated G31.84 MRI BRAIN W QUANT WO IVCON MRI 3D BRAIN QUANT 2. Falls R29.6 MRI BRAIN W QUANT WO IVCON MRI CERVICAL SPINE WO IVCON MRI THORACIC SPINE WO IVCON MRI LUMBAR SPINE WO IVCON 3. Cognitive changes R41.89 MRI 3D BRAIN QUANT FOLATE, SERUM SYPHILIS TREPONEMAL W/REFLEX TOXICOLOGY PANEL BLD 4. Spinal stenosis of cervical region M48.02 MRI CERVICAL SPINE WO IVCON 5. Acute low back pain, unspecified back pain laterality, unspecified whether sciatica present M54.50 MRI LUMBAR SPINE WO IVCON 6. Spinal stenosis of lumbar region, unspecified whether neurogenic claudication present M48.061 MRI LUMBAR SPINE WO IVCON 7. Neuropathy G62.9 FOLATE, SERUM SYPHILIS TREPONEMAL W/REFLEX METHYLMALONIC ACID PROT ELECT SERUM WITH MERY AND INTERP THYROID STIMULATING HORMONE VITAMIN B12 HEMOGLOBIN A1C No follow-ups on file. Chart, labs,and relevant images reviewed. HPI: Seen on 11/27/22 for memory concerns but presented with SOB and CP, EMS called and patient not evaluated for memory concerns. Memory concerns had been ongoing for about 6 months at that time. Saw PCP on 06/09/24 concern for cognitive changes. Here in the office for difficulty with memory. Symptoms started about 3 weeks ago. Increase in falls at home. Has had about 3 falls in the past 2 weeks. No injuries. Losing balance. Difficulty walking, refers that she trips easily. Will start a c (more content not included)... [facility] 12-19-2024 History of Present illness Narrative Images from the original note were not included. [facility] Name: Albania Ramsey Age: [age] year old Gender: female Primary Care Provider: Teresa Aguilar MD Consult requested for memory loss and falls by Nga Ferrer. Recommendations will be communicated via shared medical record or US mail. Chief Complaint:New Patient (C/o frequent falls, cognitive changes) 12/19/2024 - General Neurology, Cora Gil PA-C ASSESSMENT ASSESSMENT/PLAN: 1. Cognitive impairment, mild, so stated - ICD9: 331.83, ICD10: G31.84 (primary diagnosis) 2. Falls - ICD9: V15.88, ICD10: R29.6 3. Cognitive changes - ICD9: 799.59, ICD10: R41.89 4. Spinal stenosis of cervical region - ICD9: 723.0, ICD10: M48.02 5. Acute low back pain, unspecified back pain laterality, unspecified whether sciatica present - ICD9: 724.2, ICD10: M54.50 6. Spinal stenosis of lumbar region, unspecified whether neurogenic claudication present - ICD9: 724.02, ICD10: M48.061 7. Neuropathy - ICD9: 355.9, ICD10: G62.9 Patient with concerns of memory loss and frequent falls. History is extremely limited as patient presents alone and has difficulty answering questions. She notes this is only been ongoing for a few weeks but on chart review has been an ongoing issue for years. Was originally seen 2 years ago for similar concerns but when she presented at that time she had acute chest pain and was sent to the emergency department. Patient does not remember this visit, does not remember previous issues with falls or memory concerns. States that she has had a few falls over the last few weeks and is not sure why, feels her legs are giving out on her. Has history of longstanding lumbar issues, previously followed with Dr. Taylor in pain management and has had lumbar surgery in the past. No bowel bladder incontinence, saddle anesthesia or new low back pain. Exam does show full strength throughout, some decreased reflexes of the lower extremities as well as some sensory changes, slightly worse on the right lower extremity compared to the left. MoCA is concerning as she had difficulty completing this, many questions were deferred. Estimated total of 08/08. Throughout the appointment, patient had difficulty maintaining eye contact and was constantly moving on her chair, shifting. Denies any substance use or alcohol, but states she is slightly anxious. Has history of bipolar disorder and possibly schizophrenia and is on Zoloft, Lamictal and Seroquel. At this time, unclear etiology of her symptoms as history is limited. Will order MRI of the brain and spine to look for any signs of central nervous system abnormality contributing patient's symptoms including cerebral atrophy, NPH, spinal stenosis. Additionally will obtain basic blood work including toxicology report. Do not feel EMG or neuropsychological testing would be well-tolerated at this time, thus will defer these tests. Patient does currently live alone but does not drive, states she does feel safe at home and is able to complete ADLs without any issue. Does appear clean today, weight is low but within a normal BMI. Will continue to monitor. Patient agreeable to treatment plan of care at this time, questions were answered. Patient to follow-up after workup is completed with myself or Dr. Cazares. Cora Gil PA-C Encounter Diagnosis ICD-10-CM 1. Cognitive impairment, mild, so stated G31.84 MRI BRAIN W QUANT WO IVCON MRI 3D BRAIN QUANT 2. Falls R29.6 MRI BRAIN W QUANT WO IVCON MRI CERVICAL SPINE WO IVCON MRI THORACIC SPINE WO IVCON MRI LUMBAR SPINE WO IVCON 3. Cognitive changes R41.89 MRI 3D BRAIN QUANT FOLATE, SERUM SYPHILIS TREPONEMAL W/REFLEX TOXICOLOGY PANEL BLD 4. Spinal stenosis of cervical region M48.02 MRI CERVICAL SPINE WO IVCON 5. Acute low back pain, unspecified back pain laterality, unspecified whether sciatica present M54.50 MRI LUMBAR SPINE WO IVCON 6. Spinal stenosis of lumbar region, unspecified whether neurogenic claudication present M48.061 MRI LUMBAR SPINE WO IVCON 7. Neuropathy G62.9 FOLATE, SERUM SYPHILIS TREPONEMAL W/REFLEX METHYLMALONIC ACID PROT ELECT SERUM WITH MERY AND INTERP THYROID STIMULATING HORMONE VITAMIN B12 HEMOGLOBIN A1C No follow-ups on file. Chart, labs,and relevant images reviewed. HPI: Seen on 11/27/22 for memory concerns but presented with SOB and CP, EMS called and patient not evaluated for memory concerns. Memory concerns had been ongoing for about 6 months at that time. Saw PCP on 06/09/24 concern for cognitive changes. Here in the office for difficulty with memory. Symptoms started about 3 weeks ago. Increase in falls at home. Has had about 3 falls in the past 2 weeks. No injuries. Losing balance. Difficulty walking, refers that she trips easily. Will start a conversation and will get lost on what words to use next. Has been forgetful at home, left the stove on. Woke up in the middle night naked, family found her roaming around the house, no recall on this, this has happened twice. Family handling finances. Family history of Parkinson's: Father B12, folate and TSH normal. No MRI Patient presents for evaluation of frequent falls and memory concerns. Patient is a very poor historian and history is very limited. That she is just been falling over the last few weeks, notes that she is only had a few falls, feels her legs are giving out. However on chart review patient has had multiple falls and was recently admitted in August for compression fracture of the spine, but records are limited as this was an outside facility. Patient has no recollection of this admission. Denies any syncope or major injuries with these falls. Notes that she can go up and down stairs but not due to weakness, primarily due to shortness of breath. Follows with pulmonology. Denies any paresthesias in the lower extremities, no history of neuropathy. Is reports that she had low back surgery 4 to 5 years ago. I do see a possible report of laminectomy but this was in 2010. Denies any new bowel or bladder incontinence or saddle anesthesia. Previously followed by pain management for lower back pain, last seen in 2022. Denies any dizziness, balance issues. Does report some weakness in the lower legs but no weakness in the hands or arms. Patient also concern for cognitive issues. This is also been going on for about a month but again on chart review it has been a chronic issue for years. Patient was originally scheduled myself 2 years ago for memory loss which had been going on for at least 6 months at that time but patient does not remember this appointment. Notes that she is forgetting conversations, states she will be in the middle of a sentence and forget what she is talking about. Denies any family history of dementia or Parkinson's disease although I did see this mentioned in primary care. Notes that sometimes she has hallucinations where she sees her sister, history of depression but I also see history of bipolar and she is currently on multiple mood medications including Zoloft, Seroquel and Lamictal. Patient does appear very anxious in the appointment today and she admits to some anxiety. Denies any substance use or alcohol use. Denies any stove on, able to pay her bills without any issue. Is no longer driving. Currently lives alone in an apartment and does not have any visitors. Has an elevator. Notes that her appetite is okay and denies any recent weight loss. Denies any issues with ADLs. Review of Systems ACTIVE PROBLEM LIST Tobacco Use Disorder Acute Bronchitis With Chronic Obstructive Pulmonary Disease (Copd) (Hcc) Benign Paroxysmal Positional Vertigo Lumbago Bipolar I disorder, most recent episode (or current) depressed, severe, specified as with psychotic behavior (HCC) Gerd (Gastroesophageal Reflux Disease) History of Lumbar Discectomy Lumbar Disc Displacement Without Myelopathy Ddd (Degenerative Disc Disease), Lumbar Lumbar Radiculopathy Lumbar Spondylosis Family History of Colon Cancer Special Screening for Malignant Neoplasms, Colon Benign Neoplasm of Colon Acute Gastritis Without Mention of Hemorrhage Sacroiliac Joint Dysfunction Peroneal Tendinitis of Left Lower Extremity Pes Cavus Congenital Forefoot Valgus Achilles Tendinitis Left Shoulder Pain Pain in Joint, Ankle and Foot Encounter for Screening Colonoscopy Abnormal Finding On Breast Imaging Chronic Right-Sided Low Back Pain With Right-Sided Sciatica Chronic Right Shoulder Pain Copd With Exacerbation (Hcc) Requires Oxygen Therapy Preop Testing Asthma (Hcc) Essential (Primary) Hypertension History of Pulmonary Embolus (Pe) Chronic Hypoxemic Respiratory Failure (Hcc) Presence of Right Artificial Shoulder Joint PAST MEDICAL HISTORY Diagnosis Date Asthma (HCC) Bipolar I disorder, most recent episode (or current) unspecified Blood dyscrasia Chronic obstructive pulmonary disease (COPD) (HCC) Dysthymic disorder Depression (non-psychotic) Lumbago Osteoarthritis Pulmonary embolus (HCC) 25 years prior Schizophrenia ([facility]) follows with [facility] Tobacco use disorder 1/2 ppd since age of 11 Medications: Reviewed meclizine (ANTIVERT) 25 mg tab Take 1 tablet by mouth every 6 hours as needed (dizziness). meloxicam (MOBIC) 7.5 mg tablet Take 1 tablet by mouth once daily. cyclobenzaprine (FLEXERIL) 10 mg tablet Take 1 tablet by mouth three times a day. fluticasone-salmeterol (ADVAIR DISKUS) 250-50 mcg/dose inhaler Inhale 1 Puff as instructed two times a day. OXYGEN, HOME THERAPY, 2 L/min by Nasal Cannula route continuous. cholecalciferol, Vitamin D3, (VITAMIN D3) 1,250 mcg (50,000 unit) cap capsule Take 1 capsule by mouth one time a week. ondansetron (ZOFRAN) 4 mg tablet Take 1 tablet by mouth every 8 hours as needed for up to [address] (PROTONIX) 20 mg tablet Take 1 tablet by mouth daily before breakfast. Take on empty stomach, 1/2 hr before meal. melatonin 10 mg tab Take 1 tablet by mouth at bedtime as needed. QUEtiapine (SEROQUEL) 400 mg tablet take 2 tablets by mouth once daily at bedtime albuterol (PROVENTIL) 2.5 mg /3 mL (0.083 %) nebulizer solution Use 3 mL via nebulizer every 4 hours as needed for wheezing/shortness of breath. Use over 5-15minutes. lamoTRIgine (LAMICTAL) 150 mg tablet Take 1 tablet by mouth three times daily as needed. albuterol HFA (PROVENTIL HFA, VENTOLIN HFA) 90 mcg/actuation inhaler Inhale 2 Puffs as instructed every 4 hours as needed for Wheezing/Shortness of Breath. prazosin (MINIPRESS) 2 mg cap Take 2 mg by mouth daily at bedtime. sertraline (ZOLOFT) 50 mg tablet Take 50 mg by mouth once daily. benztropine (COGENTIN) 1 mg tablet Take 1 mg by mouth twice daily. ALLERGIES Allergen Reactions Demoral [Meperidine] Rash Desyrel [Trazodone * Rash Doxycycline Hives Erythromycin Rash Levaquin [Levofloxa* Rash Morphine Swelling Prednisone Rash FAMILY HISTORY Problem Relation Age of Onset Blood Disease Mother Diabetes Mother Colon Cancer Mother Breast Cancer Mother other (Bleeding disorder) Mother Cancer Father prostate Prostate Cancer Father Diabetes Sister Heart disease Sister other (HTN) Sister Stroke Sister other (Same issues as other sister) Sister Cervical Cancer Maternal Aunt Breast Cancer Other cousin PAST SURGICAL HISTORY Procedure Laterality Date APPENDECTOMY 1985 COLONOSCOPY FLX DX W/COLLJ SPEC WHEN PFRMD 10/19/2018 Colonoscopy COLONOSCOPY FLX DX W/COLLJ SPEC WHEN PFRMD 11/21/2019 Colonoscopy COLSC FLX W/RMVL OF TUMOR POLYP LESION SNARE TQ 04/19/2012 4 polyps - 3 yr follow up EGD TRANSORAL BIOPSY SINGLE/MULTIPLE 04/19/2012 gastritis ESOPHAGOGASTRODUODENOSCOPY TRANSORAL DIAGNOSTIC 11/21/2019 EGD EXC BREAST LES PREOP PLMT RAD MARKER OPEN 1 LES Left 11/18/2016 Mild duct ectasia, benign microcalcifications HERNIA REPAIR HX 90s Lt inguinal LAPAROSCOPY COLECTOMY PARTIAL W/ANASTOMOSIS 12/19/2018 laparscopic right hemicolectomy LAPAROSCOPY SURG CHOLECYSTECTOMY 1982 Cholecystectomy, lap LAPS ABD PRTM&OMENTUM DX W/WO SPEC BR/WA SPX Laparoscopy PAST SURGICAL HISTORY OF 10/27/2010 L5-S1 Microdisckectomy PAST SURGICAL HISTORY OF Left 11/18/2016 breast bx-Dr. Wise PT ED ORTHOPAEDICS Right 08/04/2023 Shoulder replacement SURGICAL ARTHROSCOPY FAM W/CORACOACRM LIGM RLS Right 11/27/2020 Right shoulder arthroscopy, glenohumeral chondroplasty, biceps tenotomy, SAD TOTAL ABDOMINAL HYSTERECT W/WO RMVL TUBE OVARY 1982 Hysterectomy, VALDEMAR SOCIAL HISTORY Factories in past Pets: 3 dogs, 2 cats Tobacco Use: High Risk (12/19/2024) Patient History Smoking Tobacco Use: Every Day Smokeless Tobacco Use: Never Passive Exposure: Past PHYSICAL EXAM 12/19/24 1433 BP: 122/77 Pulse: (!) 53 MoCA: Had a very hard time completing this, deferred many questions. Clock draw: 09/15 Namin/3 Instant recall: 2/5, not graded Attention: 09/17 Language: 0/2 Abstraction: 1/2 Delayed recall: 0/5 Orientation: 02/16 08/08 Psych: Has difficulty answering questions directly, frequently moving throughout interview on her chair. Avoids eye contact. Neurological Exam Cognitive and Language: Alert and answered questions appropriately. Language was fluent. Followed simple and complex commands. Cranial Nerves: Visual hester were full tested binocularly to finger counting in all 4 quadrants with no visual extinction. Pupils were equal and both reactive to light. Extraocular movements were full with no diplopia or nystagmus. Facial sensation was normal to light touch in V1 to V3. Facial strength was symmetric. Normal hearing grossly bilaterally. Palatal raise was symmetric. Shoulder shrug was symmetric. Tongue protrusion was symmetric with no fasciculations. Right Left Shoulder Abduction: 5 5 Elbow Extension 5 5 Elbow Flexion 5 5 Wrist Extension 5 5 Finger Extension 5 5 Finger Abduction 5 5 Right Left Hip Flexion 5 5 Knee Extension 5 5 Knee Flexion 5 5 Dorsiflexion 5 5 Plantar Flexion 5 5 Rest tremor: absent Tone: Normal in all four limbs Reflexes: Negative Brewster Right Left Brachioradialis 2 2 Biceps 2 2 Patella 2 2 Ankle 2 1 Sensory: Limited, slight decrease in vibration to the great toe and lower extremities, worse on the right. Coordination: Normal finger to nose and heel to taylor testing bilaterally. Gait is slightly unsteady, leaning towards the right. Labs: Lab Results Component Value Date WBC 7.17 06/09/2024 HCT 43.8 06/09/2024 MCV 91.1 06/09/2024 PLT 344 06/09/2024 Lab Results Component Value Date HBA1C 5.6 05/10/2018 Total Cholesterol, Nonfasting Date Value Ref Range Status 12/10/2017 259 (H) <200 mg/dL Final Comment: <200 mg/dL, Desirable 200-239 mg/dL, Borderline high >239 mg/dL, High HDL Cholesterol, Nonfasting Date Value Ref Range Status 12/10/2017 61 >39 mg/dL Final Comment: 40-59 mg/dL, Acceptable >59 mg/dL, High: Negative risk factor for coronary heart disease <40 mg/dL, Low: Positive risk factor for coronary heart disease LDL Cholesterol, Nonfasting Date Value Ref Range Status 12/10/2017 159 (H) <100 mg/dL Final Comment: <100 mg/dL, Optimal 100-129 mg/dL, Near optimal/above optimal 130-159 mg/dL, Borderline high 160-189 mg/dL, High >189 mg/dL, Very high Secondary prevention optimal LDL Cholesterol levels are recommended to be < 70 mg/dL Triglycerides, Nonfasting Date Value Ref Range Status 12/10/2017 195 (H) <150 mg/dL Final Comment: <150 mg/dL, Normal 150-199 mg/dL, Borderline high 200-499 mg/dL, High >499 mg/dL, Very high Radiology: MRI Head/Brain - Last 2 Impressions No resulted procedures found. and MRI Spine - Last 2 Impressions MRI LUMBAR SPINE WWO CONTRAST Collected: 07/27/2011 9:23 AM (Final result) MRI LUMBAR SPINE WO CONTRAST Collected: 08/11/2010 10:32 AM (Final result) This note was dictated using [employer] speech recognition software and may contain some errors that were a result of the program not accurately transcribing what was dictated, despite efforts to make corrections. Note that unless urgent, test and MRI results will be discussed at next follow-up visit. PROMIS (Patient-Reported Outcomes Measurement Information System) is a set of person-centered measures that evaluates and monitors physical, social, and emotional health. It can be used with the general population and with individuals living with chronic conditions. PROMIS 10: PHYSICAL AND MENTAL HEALTH: 06/09/2024 PHQ-9 PHQ-2 Score 2 Medical Decision Making: Medical Decision Making Level: 1 - N/A I spent a total of 50 minutes on the date of the service which included preparing to see the patient, [id number] patient care, completing clinical documentation, obtaining and/or reviewing separately obtained history, performing a medically appropriate examination, counseling and educating the patient/family/caregiver, and ordering medications, tests, or procedures. The patient consented to the use of Pryv software for draft documentation of the visit consistent with [facility] s Notice of Privacy Practices. documented in this encounter [facility] 12-18-2024 Telephone encounter Note OK to refill as ordered Teresa Aguilar MD [facility] 12-18-2024 Miscellaneous Notes OK to refill as ordered Teresa Aguilar MD Prescription Refill Information The patient has been identified by name and date of : Yes Caregiver verified no other encounters exist for this prescription request: Yes Caregiver confirmed with patient/requestor that no other refills are due, in the near future, with this provider at this time: Yes The last office visit in the department: 11/22/24 Does the patient have a future office visit with this provider/department: No Requested Prescriptions Pending Prescriptions Disp Refills meclizine (ANTIVERT) 25 mg tab 40 tablet 5 Sig: Take 1 tablet by mouth every 6 hours as needed (dizziness). Dolly Acosta MA December 18, 2024 3:53 PM [facility] pharmacy is calling Teresa Aguilar MD today to request a medication not on current med list Meclizine 25 mg tablet taking one by mouth every 6 hrs as needed #40 5 refills Pharmacy -[facility] ([facility]) Patient has been identified by name and birthdate. Duration of symptoms: N/A Person calling: pharmacy: [facility] Call patient at: at home [phone] (home) [phone] (cell) Was an appointment scheduled: No Closing statement: Results or non-symptom based questions: Thank you for calling [facility], your call will be returned within the next business day. Ashia Zurita documented in this encounter [facility] 12-18-2024 Telephone encounter Note Prescription Refill Information The patient has been identified by name and date of : Yes Caregiver verified no other encounters exist for this prescription request: Yes Caregiver confirmed with patient/requestor that no other refills are due, in the near future, with this provider at this time: Yes The last office visit in the department: 11/22/24 Does the patient have a future office visit with this provider/department: No Requested Prescriptions Pending Prescriptions Disp Refills meclizine (ANTIVERT) 25 mg tab 40 tablet 5 Sig: Take 1 tablet by mouth every 6 hours as needed (dizziness). Dolly Acosta MA December 18, 2024 3:53 PM [facility] 12-18-2024 Telephone encounter Note [facility] pharmacy is calling Teresa Aguilar MD today to request a medication not on current med list Meclizine 25 mg tablet taking one by mouth every 6 hrs as needed #40 5 refills Pharmacy -[facility] ([facility]) Patient has been identified by name and birthdate. Duration of symptoms: N/A Person calling: pharmacy: [facility] Call patient at: at home [phone] (home) [phone] (cell) Was an appointment scheduled: No Closing statement: Results or non-symptom based questions: Thank you for calling [facility], your call will be returned within the next business day. Ashia Zurita [facility] 11-23-2024 Telephone encounter Note Pt was in for OV with Nga today and asked about her disability paperwork. Our office has not received any disability paperwork. Called and spoke with pt, she stated that the letter Nga wrote for her yesterday 11/22/24 should be all that is needed. Nothing further needed at this time. Lennie Khan MA [facility] 11-23-2024 Miscellaneous Notes Pt was in for OV with Nga today and asked about her disability paperwork. Our office has not received any disability paperwork. Called and spoke with pt, she stated that the letter Nga wrote for her yesterday 11/22/24 should be all that is needed. Nothing further needed at this time. Lennie Khan MA documented in this encounter [facility] 11-22-2024 History of Present illness Narrative This is a 63 year old female who presents today with: Patient presents with: Acute Visit: discuss getting a letter for housing due to disablity HISTORY OF PRESENT ILLNESS: Albania Ramsey is a 63 year old female. Patient presents with: Acute Visit: discuss getting a letter for housing due to disablity Here in the office needing a letter to retain housing ( [employer]) due to current disability. Refers that she dropped off disability papers to PCPs office, no documents noted in the chart at this time. Trying to file disability for chronic back pain. History of DDD lumbar, lumbar spondylosis, and sacroiliac joint dysfunction. Following with Dr. Husain, pain management in [place]. Not taking medication at this time. Has been going through physical therapy. Unable to work due to pain. Still having on going difficulty with memory. Will forget what she is talking about mid-sentence. Has forgot to turn off appliances at times. Living with son/. Family history of dementia, mother who passed from this. Not currently driving. Workup completed in the fall which was normal. Consult was placed for neurology at that time, has yet to schedule. Vaccine: Would like covid vaccine. PAST MEDICAL HISTORY: PAST MEDICAL HISTORY Diagnosis Date Asthma Bipolar I disorder, most recent episode (or current) unspecified Blood dyscrasia Chronic obstructive pulmonary disease (COPD) (HCC) Dysthymic disorder Depression (non-psychotic) Lumbago Osteoarthritis Pulmonary embolus (HCC) 25 years prior Schizophrenia (HCC) follows with Dr Bill at [facility] Snoring Tobacco use disorder 1/2 ppd since age of 11 PAST SURGICAL HISTORY Procedure Laterality Date APPENDECTOMY 1985 COLONOSCOPY FLX DX W/COLLJ SPEC WHEN PFRMD 10/19/2018 Colonoscopy COLONOSCOPY FLX DX W/COLLJ SPEC WHEN PFRMD 11/21/2019 Colonoscopy COLSC FLX W/RMVL OF TUMOR POLYP LESION SNARE TQ 04/19/2012 4 polyps - 3 yr follow up EGD TRANSORAL BIOPSY SINGLE/MULTIPLE 04/19/2012 gastritis ESOPHAGOGASTRODUODENOSCOPY TRANSORAL DIAGNOSTIC 11/21/2019 EGD EXC BREAST LES PREOP PLMT RAD MARKER OPEN 1 LES Left 11/18/2016 Mild duct ectasia, benign microcalcifications HERNIA REPAIR HX 90s Lt inguinal LAPAROSCOPY COLECTOMY PARTIAL W/ANASTOMOSIS 12/19/2018 laparscopic right hemicolectomy LAPAROSCOPY SURG CHOLECYSTECTOMY 1981 Cholecystectomy, lap LAPS ABD PRTM&OMENTUM DX W/WO SPEC BR/WA SPX Laparoscopy PAST SURGICAL HISTORY OF 10/27/2010 L5-S1 Microdisckectomy PAST SURGICAL HISTORY OF Left 11/18/2016 breast bx-Dr. Wise PT ED ORTHOPAEDICS Right 08/04/2023 Shoulder replacement SURGICAL ARTHROSCOPY FAM W/CORACOACRM LIGM RLS Right 11/27/2020 Right shoulder arthroscopy, glenohumeral chondroplasty, biceps tenotomy, SAD TOTAL ABDOMINAL HYSTERECT W/WO RMVL TUBE OVARY 1981 Hysterectomy, VALDEMAR ALLERGIES Demoral [Meperidine], Desyrel [Trazodone Hcl], Doxycycline, Erythromycin, Levaquin [Levofloxacin], Morphine, and Prednisone MEDICATIONS Current Outpatient Medications Medication Sig meloxicam (MOBIC) 7.5 mg tablet Take 1 tablet by mouth once daily. cyclobenzaprine (FLEXERIL) 10 mg tablet Take 1 tablet by mouth three times a day. fluticasone-salmeterol (ADVAIR DISKUS) 250-50 mcg/dose inhaler Inhale 1 Puff as instructed two times a day. OXYGEN, HOME THERAPY, 2 L/min by Nasal Cannula route continuous. cholecalciferol, Vitamin D3, (VITAMIN D3) 1,250 mcg (50,000 unit) cap capsule Take 1 capsule by mouth one time a week. ondansetron (ZOFRAN) 4 mg tablet Take 1 tablet by mouth every 8 hours as needed for up to 10 doses. (Patient not taking: Reported on 06/09/2024) pantoprazole DR (PROTONIX) 20 mg tablet Take 1 tablet by mouth daily before breakfast. Take on empty stomach, 1/2 hr before meal. melatonin 10 mg tab Take 1 tablet by mouth at bedtime as needed. QUEtiapine (SEROQUEL) 400 mg tablet take 2 tablets by mouth once daily at bedtime albuterol (PROVENTIL) 2.5 mg /3 mL (0.083 %) nebulizer solution Use 3 mL via nebulizer every 4 hours as needed for wheezing/shortness of breath. Use over 5-15minutes. lamoTRIgine (LAMICTAL) 150 mg tablet Take 1 tablet by mouth three times daily as needed. albuterol HFA (PROVENTIL HFA, VENTOLIN HFA) 90 mcg/actuation inhaler Inhale 2 Puffs as instructed every 4 hours as needed for Wheezing/Shortness of Breath. prazosin (MINIPRESS) 2 mg cap Take 2 mg by mouth daily at bedtime. sertraline (ZOLOFT) 50 mg tablet Take 50 mg by mouth once daily. benztropine (COGENTIN) 1 mg tablet Take 1 mg by mouth twice daily. No current facility-administered medications for this visit. FAMILY HISTORY Problem Relation Age of Onset Blood Disease Mother Diabetes Mother Colon Cancer Mother Breast Cancer Mother other (Bleeding disorder) Mother Cancer Father prostate Prostate Cancer Father Diabetes Sister Heart disease Sister other (HTN) Sister Stroke Sister other (Same issues as other sister) Sister Cervical Cancer Maternal Aunt Breast Cancer Other cousin Social History Tobacco Use Smoking status: Every Day Current packs/day: 0.50 Average packs/day: 0.5 packs/day for 52.4 years (26.2 ttl pk-yrs) Types: Cigarettes Start date: 10/02/1972 Passive exposure: Past Smokeless tobacco: Never Tobacco comments: start age 11, average of 1.5 PPD since, currently smoking 0.5 PPD Vaping Use Vaping status: Never Used Substance Use Topics Alcohol use: No Drug use: No REVIEW OF SYSTEMS GENERAL: No weight loss, malaise or fevers/chills HEENT: Negative for frequent or significant headaches, No changes in hearing or vision. NECK: Negative for lumps, goiter, pain and significant neck swelling RESPIRATORY: Negative for cough, hemoptysis, wheezing, dyspnea or shortness of breath CARDIOVASCULAR: Negative for chest pain, leg swelling, orthopnea, or palpitations GI: No nausea, vomiting, or diarrhea/constipation. No hematochezia/melena. No heartburn or reflux symptoms. : No history of dysuria, frequency or incontinence MUSCULOSKELETAL: + Chronic back pain SKIN: Negative for lesions, rash, and itching ENDOCRINE: Negative for cold or heat intolerance, polyuria, polydipsia and goiter NEURO: + Memory changes MOOD: Negative for depression, anxiety, or suicidal ideation. EXAM: BP 110/80 Pulse 107 Resp 16 Wt 55.2 kg (121 lb 11.1 oz) SpO2 93% BMI (P) 19.94 kg/m PHYSICAL EXAM: General Appearance: Well appearing, alert, in no acute distress, well-hydrated, well nourished. Skin: Skin color, texture, turgor normal, no suspicious rashes or lesions. Head: Normocephalic, no masses, lesions, tenderness or abnormalities. Eyes: Anicteric sclera. Extraocular movements are intact. Lungs: Lungs clear to auscultation. No wheezing, rhonchi, rales.. Heart: RRR without murmur, gallop, or rubs. No ectopy. Extremities: No deformities, edema, skin discoloration, clubbing or cyanosis. Good capillary refill. Peripheral Pulses: Normal, Capillary refill <2secs, strong peripheral pulses, Pulses palpable. Neurologic: Gait normal. Sensation grossly intact. ASSESSMENT/PLAN: 1. Degeneration of intervertebral disc of lumbar region, unspecified whether pain present - ICD9: 722.52, ICD10: M51.369 (primary diagnosis) - Letter provided due to inability to work - Will check with PCP office about disability forms. 2. Lumbar spondylosis - ICD9: 721.3, ICD10: M47.816 - Continue with current plan of care. - Keep scheduled appointments with pain management. - Continue with physical therapy. 3. Cognitive changes - ICD9: 799.59, ICD10: R41.89 - Instructed to schedule consult with Neurology for further evaluation. 4. Encounter for immunization - ICD9: V03.89, ICD10: Z23 - VIS provided. - Moncai-iiMonde COVID-19 VACCINE AGE 12+ YR (COMIRNATY) Follow-up as needed. Discussed treatment plan and patient voices understanding. Patient's questions answered appropriately. Medications and potential side effects were discussed and patient voices understanding. Nga Ferrer APRN.CNP This note was partially generated using [employer] recognition system. Note was reviewed for accuracy. There may be minor misspellings or grammar miscues with [employer] voice recognition. documented in this encounter [facility] 11-22-2024 Note HNO ID: [id number] Author: NGA FERRER APRN.CNP Service: ? Author Type: Nurse Practitioner Type: Progress Notes Filed: 11/22/2024 15:57 Note Text: This is a 63 year old female who presents today with: Patient presents with: Acute Visit: discuss getting a letter for housing due to disablity HISTORY OF PRESENT ILLNESS: Albania Ramsey is a 63 year old female. Patient presents with: Acute Visit: discuss getting a letter for housing due to disablity Here in the office needing a letter to retain housing ( [employer]) due to current disability. Refers that she dropped off disability papers to PCPs office, no documents noted in the chart at this time. Trying to file disability for chronic back pain. History of DDD lumbar, lumbar spondylosis, and sacroiliac joint dysfunction. Following with Dr. Husain, pain management in [place]. Not taking medication at this time. Has been going through physical therapy. Unable to work due to pain. Still having on going difficulty with memory. Will forget what she is talking about mid-sentence. Has forgot to turn off appliances at times. Living with son/. Family history of dementia, mother who passed from this. Not currently driving. Workup completed in the fall which was normal. Consult was placed for neurology at that time, has yet to schedule. Vaccine: Would like covid vaccine. PAST MEDICAL HISTORY: PAST MEDICAL HISTORY Diagnosis Date Asthma Bipolar I disorder, most recent episode (or current) unspecified Blood dyscrasia Chronic obstructive pulmonary disease (COPD) (HCC) Dysthymic disorder Depression (non-psychotic) Lumbago Osteoarthritis Pulmonary embolus (HCC) 25 years prior Schizophrenia (HCC) follows with Dr Bill at [facility] Snoring Tobacco use disorder 1/2 ppd since age of 11 PAST SURGICAL HISTORY Procedure Laterality Date APPENDECTOMY 1984 COLONOSCOPY FLX DX W/COLLJ SPEC WHEN PFRMD 10/19/2018 Colonoscopy COLONOSCOPY FLX DX W/COLLJ SPEC WHEN PFRMD 11/21/2019 Colonoscopy COLSC FLX W/RMVL OF TUMOR POLYP LESION SNARE TQ 04/19/2012 4 polyps - 3 yr follow up EGD TRANSORAL BIOPSY SINGLE/MULTIPLE 04/19/2012 gastritis ESOPHAGOGASTRODUODENOSCOPY TRANSORAL DIAGNOSTIC 11/21/2019 EGD EXC BREAST LES PREOP PLMT RAD MARKER OPEN 1 LES Left 11/18/2016 Mild duct ectasia, benign microcalcifications HERNIA REPAIR HX 90s Lt inguinal LAPAROSCOPY COLECTOMY PARTIAL W/ANASTOMOSIS 12/19/2018 laparscopic right hemicolectomy LAPAROSCOPY SURG CHOLECYSTECTOMY 1982 Cholecystectomy, lap LAPS ABD PRTMANDOMENTUM DX W/WO SPEC BR/WA SPX Laparoscopy PAST SURGICAL HISTORY OF 10/27/2010 L5-S1 Microdisckectomy PAST SURGICAL HISTORY OF Left 11/18/2016 breast bx-Dr. Wise PT ED ORTHOPAEDICS Right 08/04/2023 Shoulder replacement SURGICAL ARTHROSCOPY FAM W/CORACOACRM LIGM RLS Right 11/27/2020 Right shoulder arthroscopy, glenohumeral chondroplasty, biceps tenotomy, SAD TOTAL ABDOMINAL HYSTERECT W/WO RMVL TUBE OVARY 1982 Hysterectomy, VALDEMAR ALLERGIES Demoral [Meperidine], Desyrel [Trazodone Hcl], Doxycycline, Erythromycin, Levaquin [Levofloxacin], Morphine, and Prednisone MEDICATIONS Current Outpatient Medications Medication Sig meloxicam (MOBIC) 7.5 mg tablet Take 1 tablet by mouth once daily. cyclobenzaprine (FLEXERIL) 10 mg tablet Take 1 tablet by mouth three times a day. fluticasone-salmeterol (ADVAIR DISKUS) 250-50 mcg/dose inhaler Inhale 1 Puff as instructed two times a day. OXYGEN, HOME THERAPY, 2 L/min by Nasal Cannula route continuous. cholecalciferol, Vitamin D3, (VITAMIN D3) 1,250 mcg (50,000 unit) cap capsule Take 1 capsule by mouth one time a week. ondansetron (ZOFRAN) 4 mg tablet Take 1 tablet by mouth every 8 hours as needed for up to 10 doses. (Patient not taking: Reported on 06/09/2024) pantoprazole DR (PROTONIX) 20 mg tablet Take 1 tablet by mouth daily before breakfast. Take on empty stomach, 1/2 hr before meal. melatonin 10 mg tab Take 1 tablet by mouth at bedtime as needed. QUEtiapine (SEROQUEL) 400 mg tablet take 2 tablets by mouth once daily at bedtime albuterol (PROVENTIL) 2.5 mg /3 mL (0.083 %) nebulizer solution Use 3 mL via nebulizer every 4 hours as needed for wheezing/shortness of breath. Use over 5-15minutes. lamoTRIgine (LAMICTAL) 150 mg tablet Take 1 tablet by mouth three times daily as needed. albuterol HFA (PROVENTIL HFA, VENTOLIN HFA) 90 mcg/actuation inhaler Inhale 2 Puffs as instructed every 4 hours as needed for Wheezing/Shortness of Breath. prazosin (MINIPRESS) 2 mg cap Take 2 mg by mouth daily at bedtime. sertraline (ZOLOFT) 50 mg tablet Take 50 mg by mouth once daily. benztropine (COGENTIN) 1 mg tablet Take 1 mg by mouth twice daily. No current facility-administered medications for this visit. FAMILY HISTORY Problem Relation Age of Onset Blood Disease Mother Diabetes Mother Colon Cancer Mother Breast Cancer Mother other (Bleeding disorder (more content not included)... [facility] 11-22-2024 Instructions Nga Ferrer APRN.NEAL - 11/22/2024 2:19 PM EDT Office will check with PCP about disability papers. Letter provided for housing Recommend scheduling consult with Neurology Covid booster given today. documented in this encounter [facility] 11-09-2024 Telephone encounter Note Spoke pt and scheduled her for an office visit to discuss getting a letter for housing. Miriam Arciniega LPN [facility] 11-09-2024 Miscellaneous Notes Spoke pt and scheduled her for an office visit to discuss getting a letter for housing. Miriam Arciniega LPN Please advise pt if you are willing to do the letter for her. Miriam Arciniega LPN Pt calling to check status on letter. Please advise pt. Miriam Arciniega LPN Pt calling for letter that she needs to get into [facility] because she is [facility]: [phone]. Please advise pt when this is done or if there is any problem. Miriam Arciniega LPN documented in this encounter [facility] 11-06-2024 Telephone encounter Note OK to refill as ordered Teresa Aguilar MD [facility] 11-06-2024 Miscellaneous Notes OK to refill as ordered Teresa Aguilar MD The patient has been identified by name and date of : Yes Caregiver verified no other encounters exist for this prescription request: Yes Caregiver confirmed with patient/requestor that no other refills are due, in the near future, with this provider at this time: Yes The last office visit in the department: 06/09/2024 Does the patient have a future office visit with this provider/department: No Visit date not found Requested Prescriptions Pending Prescriptions Disp Refills meloxicam (MOBIC) 7.5 mg tablet 30 tablet 2 Sig: Take 1 tablet by mouth once daily. Liza Gregg RN November 06, 2024 2:23 PM documented in this encounter [facility] 11-06-2024 Telephone encounter Note The patient has been identified by name and date of : Yes Caregiver verified no other encounters exist for this prescription request: Yes Caregiver confirmed with patient/requestor that no other refills are due, in the near future, with this provider at this time: Yes The last office visit in the department: 06/09/2024 Does the patient have a future office visit with this provider/department: No Visit date not found Requested Prescriptions Pending Prescriptions Disp Refills meloxicam (MOBIC) 7.5 mg tablet 30 tablet 2 Sig: Take 1 tablet by mouth once daily. Liza Gregg RN November 06, 2024 2:23 PM [facility] 11-02-2024 Telephone encounter Note Please advise pt if you are willing to do the letter for her. Miriam Arciniega LPN [facility] 10-20-2024 Telephone encounter Note Pt calling to check status on letter. Please advise pt. Miriam Arciniega LPN [facility] 10-19-2024 Telephone encounter Note OK to refill as ordered Teresa Aguilar MD [facility] 10-19-2024 Miscellaneous Notes OK to refill as ordered Teresa Aguilar MD Received call from [facility] for refill of flexeril for pt. Left voicemail for pt's son Josh Ramsey to call office back, to give update on patient's condition before submitting refill request for flexeril to provider. Per [facility] on 06/09/24 patient had cognitive impairment, history of falls and failed her mini cognition test. Multiple testing was ordered at that time. Pt was to complete brain MRI. Has cancelled various appts, including Neurology appt. Will await update from pt's son. Once son returns call, please forward this update/request to provider for review. Thank you. The patient has been identified by name and date of : Yes Caregiver verified no other encounters exist for this prescription request: Yes Caregiver confirmed with patient/requestor that no other refills are due, in the near future, with this provider at this time: Yes The last office visit in the department: 06/09/2024 Does the patient have a future office visit with this provider/department: no, *see note above Requested Prescriptions Pending Prescriptions Disp Refills cyclobenzaprine (FLEXERIL) 10 mg tablet 42 tablet 5 Sig: Take 1 tablet by mouth three times a day. Cathy Perez RN documented in this encounter [facility] 10-17-2024 Telephone encounter Note Pt calling for letter that she needs to get into [facility] because she is disabled due to her back. [facility] FAX: [phone]. Please advise pt when this is done or if there is any problem. Miriam Arciniega LPN [facility] 10-13-2024 Telephone encounter Note Received call from [facility] for refill of flexeril for pt. Left voicemail for pt's son Josh Ramsey to call office back, to give update on patient's condition before submitting refill request for flexeril to provider. Per [facility]ONG on 06/09/24 patient had cognitive impairment, history of falls and failed her mini cognition test. Multiple testing was ordered at that time. Pt was to complete brain MRI. Has cancelled various appts, including Neurology appt. Will await update from pt's son. Once son returns call, please forward this update/request to provider for review. Thank you. The patient has been identified by name and date of : Yes Caregiver verified no other encounters exist for this prescription request: Yes Caregiver confirmed with patient/requestor that no other refills are due, in the near future, with this provider at this time: Yes The last office visit in the department: 06/09/2024 Does the patient have a future office visit with this provider/department: no, *see note above Requested Prescriptions Pending Prescriptions Disp Refills cyclobenzaprine (FLEXERIL) 10 mg tablet 42 tablet 5 Sig: Take 1 tablet by mouth three times a day. Cathy Perez RN [facility] 10-09-2024 Telephone encounter Note Form signed and faxed back to information below. Dolly Acosta MA [facility] 10-09-2024 Miscellaneous Notes Form signed and faxed back to information below. Dolly Acosta MA Type of letter/form/fax request - Plan of Treatment for Adult day care Form received from fax on 1 floor and placed on MD desk (Dr. Aguilar) for completion. Completed form needs to be faxed to [facility] at [phone]. Route to [place] when form completed for processing documented in this encounter [facility] 10-09-2024 Telephone encounter Note Type of letter/form/fax request - Plan of Treatment for Adult day care Form received from fax on 1 floor and placed on MD desk (Dr. Aguilar) for completion. Completed form needs to be faxed to [facility] at [phone]. Route to MS when form completed for processing [facility] 09-18-2024 Telephone encounter Note The following approved medication requests have been transmitted electronically. Requested Prescriptions Pending Prescriptions Disp Refills fluticasone-salmeterol (ADVAIR DISKUS) 250-50 mcg/dose inhaler 60 Each 11 Sig: Inhale 1 Puff as instructed two times a day. Josh Mirza APRN.CNP [facility] 09-18-2024 Miscellaneous Notes The following approved medication requests have been transmitted electronically. Requested Prescriptions Pending Prescriptions Disp Refills fluticasone-salmeterol (ADVAIR DISKUS) 250-50 mcg/dose inhaler 60 Each 11 Sig: Inhale 1 Puff as instructed two times a day. Josh Mirza APRN.CNP Patient has been identified by name and date of : Yes, Pharmacy phones for refill(s): Requested Prescriptions Pending Prescriptions Disp Refills fluticasone-salmeterol (ADVAIR DISKUS) 250-50 mcg/dose inhaler 60 Each 11 Date of last office visit in primary care: 06/09/2024 Date of next office visit in primary care: Visit date not found Please advise. Thank you. Monik Gunter. documented in this encounter [facility] 09-18-2024 Telephone encounter Note Patient has been identified by name and date of : Yes, Pharmacy phones for refill(s): Requested Prescriptions Pending Prescriptions Disp Refills fluticasone-salmeterol (ADVAIR DISKUS) 250-50 mcg/dose inhaler 60 Each 11 Date of last office visit in primary care: 06/09/2024 Date of next office visit in primary care: Visit date not found Please advise. Thank you. Monik Gunter. [facility] 09-07-2024 Hospital Discharge instructions Patient Education 09/07/2024 19:12:50 Fracture, Vertebral Compression Vertebral Compression Fracture You have a compression fracture or break in one of the bones in your spine. This kind of break usually happens in older people with thinning of the bones called osteoporosis. It may happen after a ground level fall or even with a very minor force. This can include bending forward, getting up from a seated position, coughing, or sneezing. It may also occur in young healthy people after a severe injury, such as a car accident or fall from a height. This is generally a stable break and usually does not cause any injury to the spinal cord or nerves. This injury usually takes 1 to 3 months to heal. It can be treated at home with bed rest and pain medicine. Prescription or tjkn-rzk-bikmzvo pain medicine can be used to control the pain. Long-term use of pain medicine can increase the risk of side effects. This includes: liver or kidney damage, gastrointestinal bleeding, constipation, or narcotic dependence. If you have chronic liver or kidney disease, or ever had a stomach ulcer or gastrointestinal bleeding, talk with your healthcare provider before using these medicines. If pain medicine is needed for more than 1 to 2 weeks, talk with your healthcare provider about other treatment options. A back brace or abdominal binder may be prescribed to reduce pain by limiting motion at the site of the break. If you have osteoporosis, talk with your healthcare provider about using calcium and vitamin D supplements. You may need prescription medicines to prevent further bone loss. An exercise program to strengthen spine strength is a very important part of the treatment plan. It should start once the pain is under control. If you have severe or persistent pain, your healthcare provider may recommend a procedure called a vertebral augmentation. In this procedure, a needle is used to inject a bone cement into the broken vertebra. This will expand it soaping machine back tender to its original shape. Home care You may need to stay in bed for the first few days. But, start sitting or walking as soon as possible. This will help prevent problems with prolonged bed rest such as: muscle weakness, worsening back stiffness and pain, and blood clots in the legs. When in bed, try to find a comfortable position. A firm mattress is best. Try lying flat on your back with pillows under your knees. You can also try lying on your side with your knees bent up towards your chest and a pillow between your knees. Don't sit for long periods of time. This puts more stress on the lower back than standing or walking. Apply an ice pack over the injured area for 15 to 20 minutes every 3 to 6 hours. You should do this for the first 24 to 48 hours. You can make an ice pack by filling a plastic bag that seals at the top with ice cubes and then wrapping it with a thin towel. You can start with ice, then switch to heat after 2 days. Apply heat (warm shower or warm bath) for 15 to 20 minutes several times a day for muscle spasms. Some people feel best alternating ice and heat treatments. Use the one method that feels the best to you. Be careful not to injure your skin with the ice or heat treatments. Ice should never be applied directly to skin. Warm rather than hot heat should be used to protect skin areas that have decreased sensation. Take pain medicine as directed. Call your healthcare provider if your pain is not well-controlled. A dose change, stronger medicine, or other treatment options may be needed. Be aware of safe lifting methods and don't lift anything over 10 pounds until all the pain is gone. Follow-up care Follow up with your healthcare provider, or as advised. If X-rays were taken, you will be told of any new findings that may affect your care. Call 911 Call 911 if you have: Weakness or numbness in one or both legs Loss of control over bowels or bladder Numbness in the groin area When to seek medical advice Call your healthcare provider right away if the pain gets worse or spreads to your arms or legs. [id number] [employer]. [address] [place] [address]. All rights reserved. This information is not intended as a substitute for professional medical care. Always follow your healthcare professional's instructions. 09/07/2024 18:36:39 Back Pain (Acute or Chronic) Back Pain (Acute or Chronic) Back pain is one of the most common problems. The good news is that most people feel better in 1 to 2 weeks, and most of the rest in 1 to 2 months. Most people can remain active. People who have pain describe it differently not everyone is the same. The pain can be sharp, stabbing, shooting, aching, cramping or burning. Movement, standing, bending, lifting, sitting, or walking may worsen pain. It can be localized to one spot or area, or it can be more generalized. It can spread or radiate upwards, to the front, or go down your arms or legs (sciatica). It can cause muscle spasm. Most of the time, mechanical problems with the muscles or spine cause the pain. Mechanical problems are usually caused by an injury to the muscles or ligaments. While illness can cause back pain, it is usually not caused by a serious illness. Mechanical problems include: Physical activity such as sports, exercise, work, or normal activity Overexertion, lifting, pushing, pulling incorrectly or too aggressively Sudden twisting, bending, or stretching from an accident, or accidental movement Poor posture Stretching or moving wrong, without noticing pain at the time Poor coordination, lack of regular exercise (check with your doctor about this) Spinal disc disease or arthritis Stress Pain can also be related to , or illness like appendicitis, bladder or kidney infections, pelvic infections, and many other things. Acute back pain usually gets better in 1 to 2 weeks. Back pain related to disk disease, arthritis in the spinal joints or spinal stenosis (narrowing of the spinal canal) can become chronic and last for months or years. Unless you had a physical injury (for example, a car accident or fall) X-rays are usually not needed for the initial evaluation of back pain. If pain continues and does not respond to medical treatment, X-rays and other tests may be needed. Home care Try these home care recommendations: When in bed, try to find a position of comfort. A firm mattress is best. Try lying flat on your back with pillows under your knees. You can also try lying on your side with your knees bent up towards your chest and a pillow between your knees. At first, do not try to stretch out the sore spots. If there is a strain, it is not like the good soreness you get after exercising without an injury. In this case, stretching may make it worse. Don't sit for long periods, as in a long car ride or during other travel. This puts more stress on the lower back than standing or walking. During the first 24 to 72 hours after an acute injury or flare up of chronic back pain, apply an ice pack to the painful area for 20 minutes and then remove it for 20 minutes. Do this over a period of 60 to 90 minutes or several times a day. This will reduce swelling and pain. Wrap the ice pack in a thin towel or plastic to protect your skin. You can start with ice, then switch to heat. Heat (hot shower, hot bath, or heating pad) reduces pain and works well for muscle spasms. Heat can be applied to the painful area for 20 minutes then remove it for 20 minutes. Do this over a period of 60 to 90 minutes or several times a day. Do not sleep on a heating pad. It can lead to skin johnson or tissue damage. You can alternate ice and heat therapy. Talk with your doctor about the best treatment for your back pain. Therapeutic massage can help relax the back muscles without stretching them. Be aware of safe lifting methods and do not lift anything without stretching first. Medicines Talk to your doctor before using medicine, especially if you have other medical problems or are taking other medicines. You may use bfbs-dok-sjgivrb medicine as directed on the bottle to control pain, unless another pain medicine was prescribed. If you have chronic conditions like diabetes, liver or kidney disease, stomach ulcers, or gastrointestinal bleeding, or are taking blood thinners, talk to your doctor before taking any medicine. Be careful if you are given a prescription medicines, narcotics, or medicine for muscle spasms. They can cause drowsiness, affect your coordination, reflexes, and judgement. Do not drive or operate heavy machinery. Follow-up care Follow up with your healthcare provider, or as advised. A radiologist will review any X-rays that were taken. Your provide will notify you of any new findings that may affect your care. Call 911 Call 911 if any of the following occur: Trouble breathing Confusion Very drowsy or trouble awakening Fainting or loss of consciousness Rapid or very slow heart rate Loss of bowel or bladder control When to seek medical advice Call your healthcare provider right away if any of these occur: Pain becomes worse or spreads to your legs Weakness or numbness in one or both legs Numbness in the groin or genital area [id number] [employer]. [address] [place] [address], [place] [address]. All rights reserved. This information is not intended as a substitute for professional medical care. Always follow your healthcare professional's instructions. Follow Up Care 09/07/2024 16:19:27 With:Your back doctor or Dr. Morales Address:Unknown When:2-4 days Comments:Schedule appointment as soon as possibleYou have a compression fracture of your second lumbar vertebraUse walker at all times until seenTake wypt-swo-golgdxg Colace and Metamucil or Benefiber twice daily if taking pain medicineReturn to ED if symptoms worsenLimit activityStop smokingMay use TylenolTake Naprosyn with foodDo not drive or operate machinery within 8 hours of using cyclobenzaprineFollow-up for recheckReturn for loss of bowel or bladder function leg weakness or numbness With:TERESA MORALES Address: [address] [facility] [address] [facility] [place], [place] [id number]- [phone] Business (1) When:2-4 days Comments:Schedule appointment as soon as possibleReturn to ED if symptoms worsenSee other instructions under your back doctor or Dr. Morales With:TERESA AGUILAR Address: [address] [place] [address]- Business (1) When:2-4 days Comments:Schedule appointment as soon as possibleReturn to ED if symptoms worsen [facility] 09-07-2024 Note Discharge Instructions Thank you for allowing [facility] to assist you with your healthcare needs. The following is important discharge information regarding your hospital visit. Diagnosis from Today's Visit Vertebral compression fracture What to Do Next Instructions from Your Care Team No qualifying data available. Post Acute Orders No qualifying data available. You Need to Schedule the Following Appointments Follow Up with Your back doctor or Dr. Morales When:Within 2-4 days Additional Information: Schedule appointment as soon as possible You have a compression fracture of your second lumbar vertebra Use walker at all times until seen Take sunn-fyx-gjybaxu Colace and Metamucil or Benefiber twice daily if taking pain medicine Return to ED if symptoms worsen Limit activity Stop smoking May use Tylenol Take Naprosyn with food Do not drive or operate machinery within 8 hours of using cyclobenzaprine Follow-up for recheck Return for loss of bowel or bladder function leg weakness or numbness Follow Up with TERESA MORALES When:Within 2-4 days Where:[address] [facility] [address] [facility] [place], [place] [id number]- [phone] Business (1) Additional Information: Schedule appointment as soon as possible Return to ED if symptoms worsen See other instructions under your back doctor or Dr. Morales Follow Up with TERESA AGUILAR When:Within 2-4 days Where:[address] [facility] [place] [address]- [facility] (1) Additional Information: Schedule appointment as soon as possible Return to ED if symptoms worsen Allergies Demerol HCl (Moderate) Hives Desyrel (Moderate) blotches over body predniSONE (Moderate) stomach problems erythromycin (Mild) rash morphine (Mild) rash over body doxycycline Hives Medications Please ask your primary doctor or pharmacist before taking any other medication not listed, including over the counter drugs, herbal medications, vitamins and or supplements as they may interact with your home medications. What How Much When Why Instructions Last Dose New cyclobenzaprine (cyclobenzaprine 5 mg oral tablet) 1 tab(s) by mouth Three (3) times a day Duration: 5 Days As needed for back spasm/ pain Printed Prescription Changed acetaminophen-hydrocodone (acetaminophen-hydrocodone 325 mg-5 mg oral tablet) 1 tab(s) by mouth Every 6 hours as needed for for pain Vertebral compression fracture Duration: 2 Days As needed for pain take with food Printed Prescription Changed acetaminophen-hydrocodone ([place] 325- 5 mg oral tablet) 1 tab(s) by mouth Every 6 hours Ankle sprain Duration: 2 Days Changed naproxen (Naprosyn 500 mg oral tablet) 1 tab(s) by mouth Twice daily with meals as needed for Pain Changed naproxen (Naprosyn 500 mg oral tablet) 1 tab(s) by mouth Twice daily with meals as needed for Pain Duration: 7 Days Changed naproxen (naproxen 375 mg oral tablet) 1 tab(s) by mouth Twice daily with meals As needed for pain take with food Printed Prescription Unchanged albuterol (albuterol MDI (90 mcg/ inh) CFC free inhalation aerosol) 2 puff(s) by inhalation Every 4 hours Unchanged albuterol (ProAir HFA MDI (90 mcg/ inh) inhalation aerosol) 1 puff(s) by inhalation Four (4) times a day as needed for for wheezing Unchanged albuterol-ipratropium (DuoNeb 0.5 mg-2.5 mg/ 3 mL inhalation solution) 3 Milliliter by inhalation Four (4) times a day Unchanged APAP/ butalbital/ caffeine (Fioricet oral capsule - use generic Fioricet tablet) 1 cap by mouth Every 4 hours as needed for Pain Unchanged benztropine (benztropine 1 mg oral tablet) 1 tab(s) by mouth Two (2) times a day Unchanged buPROPion (buPROPion 150 mg/ 24 hours (XL) oral tablet, extended release) 1 tab(s) by mouth Every 24 hours Unchanged escitalopram (Lexapro 5 mg oral tablet) 1 1/2 tablet by mouth Every day Unchanged fluticasone nasal (Flonase 50 mcg/ inh nasal spray) 1 spray(s) in the nose Two (2) times a day Upper respiratory infection in each nostril Unchanged lamoTRIgine (Lamictal 100 mg oral tablet) 1 tab(s) by mouth Once a day Unchanged lamoTRIgine (lamoTRIgine 100 mg oral tablet) 1 tab(s) by mouth Two (2) times a day Unchanged meloxicam (meloxicam 15 mg oral tablet) take 1 tablet by mouth once daily with food Unchanged Misc Medication (RA MELATONIN 10 MG TABLET) take 1 tablet by mouth at bedtime if needed Unchanged omeprazole (NF) (omeprazole 20 mg oral delayed release capsule (NF)) 1 cap by mouth Once a day Unchanged prazosin (prazosin 1 mg oral capsule) 1 cap by mouth Three (3) times a day Unchanged QUEtiapine (SEROquel 300 mg oral tablet) 1 tab(s) by mouth Daily at bedtime Unchanged sertraline (sertraline 50 mg oral tablet) 1 tab(s) by mouth Every day Please take this list to your next doctor s visit. Bring all medications you take, including over the counter medications, herbals and other supplements with you to your doctor s visit. Patients and families are reminded to discard old lists and to update any records with all medication providers or retail pharmacies. Education Materials Vertebral Compression Fracture You have a compression fracture or break in one of the bones in your spine. This kind of break usually happens in older people with thinning of the bones called osteoporosis. It may happen after a ground level fall or even with a very minor force. This can include bending forward, getting up from a seated position, coughing, or sneezing. It may also occur in young healthy people after a severe injury, such as a car accident or fall from a height. This is generally a stable break and usually does not cause any injury to the spinal cord or nerves. This injury usually takes 1 to 3 months to heal. It can be treated at home with bed rest and pain medicine. Prescription or rptk-pcv-alrhrnb pain medicine can be used to control the pain. Long-term use of pain medicine can increase the risk of side effects. This includes: liver or kidney damage, gastrointestinal bleeding, constipation, or narcotic dependence. If you have chronic liver or kidney disease, or ever had a stomach ulcer or gastrointestinal bleeding, talk with your healthcare provider before using these medicines. If pain medicine is needed for more than 1 to 2 weeks, talk with your healthcare provider about other treatment options. A back brace or abdominal binder may be prescribed to reduce pain by limiting motion at the site of the break. If you have osteoporosis, talk with your healthcare provider about using calcium and vitamin D supplements. You may need prescription medicines to prevent further bone loss. An exercise program to strengthen spine strength is a very important part of the treatment plan. It should start once the pain is under control. If you have severe or persistent pain, your healthcare provider may recommend a procedure called a vertebral augmentation. In this procedure, a needle is used to inject a bone cement into the broken vertebra. This will expand it soaping machine back tender to its original shape. Home care You may need to stay in bed for the first few days. But, start sitting or walking as soon as possible. This will help prevent problems with prolonged bed rest such as: muscle weakness, worsening back stiffness and pain, and blood clots in the legs. When in bed, try to find a comfortable position. A firm mattress is best. Try lying flat on your back with pillows under your knees. You can also try lying on your side with your knees bent up towards your chest and a pillow between your knees. Don't sit for long periods of time. This puts more stress on the lower back than standing or walking. Apply an ice pack over the injured area for 15 to 20 minutes every 3 to 6 hours. You should do this for the first 24 to 48 hours. You can make an ice pack by filling a plastic bag that seals at the top with ice cubes and then wrapping it with a thin towel. You can start with ice, then switch to heat after 2 days. Apply heat (warm shower or warm bath) for 15 to 20 minutes several times a day for muscle spasms. Some people feel best alternating ice and heat treatments. Use the one method that feels the best to you. Be careful not to injure your skin with the ice or heat treatments. Ice should never be applied directly to skin. Warm rather than hot heat should be used to protect skin areas that have decreased sensation. Take pain medicine as directed. Call your healthcare provider if your pain is not well-controlled. A dose change, stronger medicine, or other treatment options may be needed. Be aware of safe lifting methods and don't lift anything over 10 pounds until all the pain is gone. Follow-up care Follow up with your healthcare provider, or as advised. If X-rays were taken, you will be told of any new findings that may affect your care. Call 911 Call 911 if you have: Weakness or numbness in one or both legs Loss of control over bowels or bladder Numbness in the groin area When to seek medical advice Call your healthcare provider right away if the pain gets worse or spreads to your arms or legs. 6731-9373 [employer]. [address] [place] [address]. All rights reserved. This information is not intended as a substitute for professional medical care. Always follow your healthcare professional's instructions. Back Pain (Acute or Chronic) Back pain is one of the most common problems. The good news is that most people feel better in 1 to 2 weeks, and most of the rest in 1 to 2 months. Most people can remain active. People who have pain describe it differently not everyone is the same. The pain can be sharp, stabbing, shooting, aching, cramping or burning. Movement, standing, bending, lifting, sitting, or walking may worsen pain. It can be localized to one spot or area, or it can be more generalized. It can spread or radiate upwards, to the front, or go down your arms or legs (sciatica). It can cause muscle spasm. Most of the time, mechanical problems with the muscles or spine cause the pain. Mechanical problems are usually caused by an injury to the muscles or ligaments. While illness can cause back pain, it is usually not caused by a serious illness. Mechanical problems include: Physical activity such as sports, exercise, work, or normal activity Overexertion, lifting, pushing, pulling incorrectly or too aggressively Sudden twisting, bending, or stretching from an accident, or accidental movement Poor posture Stretching or moving wrong, without noticing pain at the time Poor coordination, lack of regular exercise (check with your doctor about this) Spinal disc disease or arthritis Stress Pain can also be related to , or illness like appendicitis, bladder or kidney infections, pelvic infections, and many other things. Acute back pain usually gets better in 1 to 2 weeks. Back pain related to disk disease, arthritis in the spinal joints or spinal stenosis (narrowing of the spinal canal) can become chronic and last for months or years. Unless you had a physical injury (for example, a car accident or fall) X-rays are usually not needed for the initial evaluation of back pain. If pain continues and does not respond to medical treatment, X-rays and other tests may be needed. Home care Try these home care recommendations: When in bed, try to find a position of comfort. A firm mattress is best. Try lying flat on your back with pillows under your knees. You can also try lying on your side with your knees bent up towards your chest and a pillow between your knees. At first, do not try to stretch out the sore spots. If there is a strain, it is not like the good soreness you get after exercising without an injury. In this case, stretching may make it worse. Don't sit for long periods, as in a long car ride or during other travel. This puts more stress on the lower back than standing or walking. During the first 24 to 72 hours after an acute injury or flare up of chronic back pain, apply an ice pack to the painful area for 20 minutes and then remove it for 20 minutes. Do this over a period of 60 to 90 minutes or several times a day. This will reduce swelling and pain. Wrap the ice pack in a thin towel or plastic to protect your skin. You can start with ice, then switch to heat. Heat (hot shower, hot bath, or heating pad) reduces pain and works well for muscle spasms. Heat can be applied to the painful area for 20 minutes then remove it for 20 minutes. Do this over a period of 60 to 90 minutes or several times a day. Do not sleep on a heating pad. It can lead to skin johnson or tissue damage. You can alternate ice and heat therapy. Talk with your doctor about the best treatment for your back pain. Therapeutic massage can help relax the back muscles without stretching them. Be aware of safe lifting methods and do not lift anything without stretching first. Medicines Talk to your doctor before using medicine, especially if you have other medical problems or are taking other medicines. You may use doxp-mwx-vklnzta medicine as directed on the bottle to control pain, unless another pain medicine was prescribed. If you have chronic conditions like diabetes, liver or kidney disease, stomach ulcers, or gastrointestinal bleeding, or are taking blood thinners, talk to your doctor before taking any medicine. Be careful if you are given a prescription medicines, narcotics, or medicine for muscle spasms. They can cause drowsiness, affect your coordination, reflexes, and judgement. Do not drive or operate heavy machinery. Follow-up care Follow up with your healthcare provider, or as advised. A radiologist will review any X-rays that were taken. Your provide will notify you of any new findings that may affect your care. Call 911 Call 911 if any of the following occur: Trouble breathing Confusion Very drowsy or trouble awakening Fainting or loss of consciousness Rapid or very slow heart rate Loss of bowel or bladder control When to seek medical advice Call your healthcare provider right away if any of these occur: Pain becomes worse or spreads to your legs Weakness or numbness in one or both legs Numbness in the groin or genital area [id number] [employer]. [address] [place] [address]. All rights reserved. This information is not intended as a substitute for professional medical care. Always follow your healthcare professional's instructions. Additional Information VACCINATE! IT SAVES LIVES! Members of the community who have not yet received the COVID-19 vaccine and would like to receive it can visit one of [facility] vaccine clinics. There are many vaccine clinic locations within the [facility]. For locations and available times, please visit [email or web address] [email or web address] It is important to note that some COVID mobile vaccine clinics are held outdoors and may be canceled in rainy or stormy conditions. To learn more about pediatric vaccinations (ages 5-11), we invite you to visit the [facility] webpage. [email or web address].[email or web address].org/pag es/0387-Jiigu-Edxurgeifdk-Frequent hn-Wcvun-Hmvgxsnnf.html To learn more about the COVID-19 vaccine, we invite you to visit the CDC website for a list of frequently asked questions. https://www.cdc.gov/coronavirus/ 19-ncov/vaccines/faq.html [facility] Patient Portal Access Instructions: Stay connected with your healthcare team and access your personal medical information anytime with the [facility] Patient Portal. If you would like a full copy of your medical records please contact the [facility] Medical Records Department Wednesday through Wednesday between 8a.m. and 4:30p.m. Please follow the directions below to access the portal: 1.Access the email account you provided upon registration to the special care hospital.2.Look for an invitation email from [facility].3.Open the email and access the invitation link: Accept Invitation to [facility]4.Fill in the required hester to create your account. Sign into [email or web address].[email or web address] with your username and password that you created in the above steps to stay up to date. You can then view a summary of results, a summary of your visits, and the ability to download your summaries to your computer or send the information securely to a physician. Remember that your healthcare information is confidential, so carefully consider who you will allow to register on the [facility] Patient Portal for access to your information. You can also access the [facility] Patient Portal on the [employer] [facility]. Simply click on Health Records under Health Data and then click on the [facility] logo. HOW TO SAFELY DISPOSE OF PRESCRIPTION MEDICATIONS Please use one of the following methods to safely dispose of your unused medications. 1.Use a drug disposal kit: the drug disposal pouch allows you to safely discard your old and unused drugs. Ask your nurse to give you one when you are discharged.2.Visit a local take-back location: Many local pharmacies and police departments have programs that collect old and unwanted prescription drugs. Call your local pharmacy or go to http://bit.Macheen/6Z8Ql0g to find one close to you.3.Make use of household items: Use cat litter or old coffee grounds to dispose medications if other options are not available. Mix your drugs with these household products, seal them in an airtight container and throw it into the garbage. Call [facility]: [phone] to be sure your drugs can be disposed of in this way. Some medicines may require a different approach.4.Never flush your medications down the toilet. IF YOU HAVE BEEN PRESCRIBED AN OPIOIDS FOR PAIN If you have been prescribed an opioid (such as hydrocodone, oxycodone or morphine), it is critical to understand the possible side effects and risks of opioid pain medications. Even when taken as directed, opioids can have several side effects including: Tolerance, meaning you might need to take more of a medication for the same pain relief. Nausea, vomiting and/or constipation. Sleepiness, dizziness, dry mouth, confusion, depression or itching. Physical dependence, meaning you have withdrawal symptoms when a medication is stopped ? this can develop within a few days. KNOW YOUR RESPONSIBILITIES It is important to know exactly how much and how often to take the opioid pain medications you are prescribed. Never take opioids in higher amounts or more often than prescribed. Do not combine opioids with alcohol or other drugs that cause drowsiness, such as benzodiazepines, also known as benzos, including diazepam and alprazolam, muscle relaxants or sleep aids. Never sell or share prescription opioids. This is illegal. Store opioids in a secure place and out of reach of others (including children, family, friends and visitors). The last page(s) of this document has been signed and retained as a CHART COPY Signatures Patient Education Materials Fracture, Vertebral Compression Back Pain (Acute or Chronic) Medication Leaflets My discharge plan and instructions have been reviewed and explained to me and IROXY LINDA C understand my current condition and have read and understand these discharge instructions. I have received a written copy of the plan/instructions. If I have questions, I am aware that I should contact my doctor. 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 Vertebral bodies are in normal alignment. Decrease within L5-S1 disc space height with adjacent endplate hypertrophy. 5. The posterior elements are intact and without significant degenerative change. Evaluation of the soft tissues is without radiographic abnormality. IMPRESSION: 1. Partial compression fracture L2 unknown chronicity. 2. Moderate degenerative changes L5-S1. Interpreted by: Nirmal Flores MD Preliminary Report By: Nirmal Flores MD Electronically signed By Nirmal Flores MD Dictated Date: 09/07/2024 6:50:22 PM Prelim Date: 09/07/2024 6:51:55 PM Sign Date: 09/07/2024 6:51:55 PM Ordering Provider: JOE [facility]12-13-2024 Telephone encounter Note* Telephone Encounter - Josh Mirza APRN.CNP - 08/25/2024 10:58 AM EST The following approved medication requests have been transmitted electronically. Requested Prescriptions Pending Prescriptions Disp Refills meloxicam (MOBIC) 7.5 mg tablet 30 tablet 2 Sig: Take 1 tablet by mouth once daily. Josh Mirza APRN.CNP [facility]12-13-2024 Miscellaneous Notes* Telephone Encounter - Josh Mirza APRN.CNP - 08/25/2024 10:58 AM EST The following approved medication requests have been transmitted electronically. Requested Prescriptions Pending Prescriptions Disp Refills meloxicam (MOBIC) 7.5 mg tablet 30 tablet 2 Sig: Take 1 tablet by mouth once daily. Josh Mirza APRN.CNP * Telephone Encounter - Barb Gross LPN - 08/25/2024 10:38 AM EST The patient has been identified by name and date of : Yes pharmacy Caregiver verified no other encounters exist for this prescription request: Yes Caregiver confirmed with patient/requestor that no other refills are due, in the near future, with this provider at this time: Yes The last office visit in the department: 06/09/2024 Does the patient have a future office visit with this provider/department: No no future appt scheduled Requested Prescriptions Pending Prescriptions Disp Refills meloxicam (MOBIC) 7.5 mg tablet 30 tablet 2 Sig: Take 1 tablet by mouth once daily. Barb Gross LPN August 25, 2024 10:38 AM documented in [facility] encounter[facility] Telephone encounter Note * Telephone Encounter - Barb Gross LPN - 08/25/2024 10:38 AM EST The patient has been identified by name and date of : Yes pharmacy Caregiver verified no other encounters exist for this prescription request: Yes Caregiver confirmed with patient/requestor that no other refills are due, in the near future, with this provider at this time: Yes The last office visit in the department: 06/09/2024 Does the patient have a future office visit with this provider/department: No no future appt scheduled Requested Prescriptions Pending Prescriptions Disp Refills meloxicam (MOBIC) 7.5 mg tablet 30 tablet 2 Sig: Take 1 tablet by mouth once daily. Barb Gross LPN August 25, 2024 10:38 AM [facility]11-25-2024 Telephone encounter Note* Telephone Encounter - Cathy Perez RN - 08/07/2024 8:13 AM EST The patient has been identified by name and date of : Yes Caregiver verified no other encounters exist for this prescription request: Yes Caregiver confirmed with patient/requestor that no other refills are due, in the near future, with this provider at this time: Yes The last office visit in the department: 06/09/2024 Does the patient have a future office visit with this provider/department: Yes Visit date not found Requested Prescriptions Pending Prescriptions Disp Refills meclizine (ANTIVERT) 25 mg tab 40 tablet 5 Sig: Take 1 tablet by mouth every 6 hours as needed (dizziness). Cathy Perez RN [facility]11-25-2024 Miscellaneous Notes* Telephone Encounter - Cathy Perez RN - 08/07/2024 8:13 AM EST The patient has been identified by name and date of : Yes Caregiver verified no other encounters exist for this prescription request: Yes Caregiver confirmed with patient/requestor that no other refills are due, in the near future, with this provider at this time: Yes The last office visit in the department: 06/09/2024 Does the patient have a future office visit with this provider/department: Yes Visit date not found Requested Prescriptions Pending Prescriptions Disp Refills meclizine (ANTIVERT) 25 mg tab 40 tablet 5 Sig: Take 1 tablet by mouth every 6 hours as needed (dizziness). Cathy Perez RN documented in [facility] encounterJoint [facility]11-[facility]24 Telephone encounter Note * Telephone Encounter - Kiley Harris APRN.CNP - 08/04/2024 1:11 PM EST Patient notified. She will call her insurance to get a ride to pickle water pump operator a specimen cup and then to return the specimen. [facility]11-22-2024 Miscellaneous Notes* Telephone Encounter - Kiley Harris APRN.CNP - 08/04/2024 1:11 PM EST Patient notified. She will call her insurance to get a ride to pickle water pump operator a specimen cup and then to return the specimen. * Telephone Encounter - Kiley Harris APRN.CNP - 07/27/2024 2:53 PM EST Attempted to call patient, no voicemail set up. Plan to discuss: New tree in bud opacities. I reviewed the scan with DR. Loo and she would like to get repeat sputum cultures. I have placed orders and she should keep the follow up as scheduled with Betzy FARAH 08/16/2024. documented in [facility] encounterJoint [facility] Telephone encounter Note * Telephone Encounter - Barb Gross LPN - 07/28/2024 2:38 PM EST The patient has been identified by name and date of : Yes Caregiver verified no other encounters exist for this prescription request: Yes Caregiver confirmed with patient/requestor that no other refills are due, in the near future, with this provider at this time: Yes The last office visit in the department: 06/09/2024 Does the patient have a future office visit with this provider/department: No no future appt scheduled Requested Prescriptions Pending Prescriptions Disp Refills cyclobenzaprine (FLEXERIL) 10 mg tablet 42 tablet 5 Sig: Take 1 tablet by mouth three times a day. Barb Gross LPN July 28, 2024 2:39 PM [facility]11-15-2024 Miscellaneous Notes* Telephone Encounter - Barb Gross LPN - 07/28/2024 2:38 PM EST The patient has been identified by name and date of : Yes Caregiver verified no other encounters exist for this prescription request: Yes Caregiver confirmed with patient/requestor that no other refills are due, in the near future, with this provider at this time: Yes The last office visit in the department: 06/09/2024 Does the patient have a future office visit with this provider/department: No no future appt scheduled Requested Prescriptions Pending Prescriptions Disp Refills cyclobenzaprine (FLEXERIL) 10 mg tablet 42 tablet 5 Sig: Take 1 tablet by mouth three times a day. Barb Gross LPN July 28, 2024 2:39 PM documented in this encounterJoint [facility]11-14-2024 Telephone encounter Note * Telephone Encounter - Kiley Harris APRN.CLINICAL WRITER - 07/27/2024 2:53 PM EST Attempted to call patient, no voicemail set up. Plan to discuss: New tree in bud opacities. I reviewed the scan with DR. Loo and she would like to get repeat sputum cultures. I have placed orders and she should keep the follow up as scheduled with Betzy FARAH 08/16/2024. [facility]11-04-2024 Telephone encounter Note* Telephone Encounter - Dolly Acosta MA - 07/17/2024 7:31 PM EST Signed paperwork and most recent OV attached to forms. Faxed to number below. Dolly Acosta MA [facility]11-04-2024 Miscellaneous Notes* Telephone Encounter - Dolly Acosta MA - 07/17/2024 7:31 PM EST Signed paperwork and most recent OV attached to forms. Faxed to number below. Dolly Acosta MA * Telephone Encounter - Lennie Khan MA - 07/17/2024 2:13 PM EST Type of letter/form/fax request - [facility] 90 day orders for adult day care services Form received from fax on 1 floor and placed on desk (Dr. Aguilar) for completion. Completed form needs to be faxed to [facility] at [phone]. Route to [place] when form completed for processing documented in this encounterJoint [facility]11-[facility]-2024 Telephone encounter Note * Telephone Encounter - Lennie Khan MA - 07/17/2024 2:13 PM EST Type of letter/form/fax request - [facility] 90 day orders for adult day care services Form received from fax on 1 floor and placed on MD desk (Dr. Aguilar) for completion. Completed form needs to be faxed to [facility] at [phone]. Route to [place] when form completed for processing [facility]10-29-2024 History of Present illness Narrative* Yahaira Verdin RT(R) - 07/11/2024 2:00 PM EDT Radiology Service Progress Note PATIENT NAME: Albania Ramsey DATE OF SERVICE: July 11, 2024 TIME: 2:35 PM PATIENT IDENTITY VERIFICATION COMPLETED USING TWO (2) IDENTIFIERS: Name and Date of confirmedby patient verbally. FALL SCREENING: Has the patient had 2 falls in the last year or 1 fall with injury or currently using an Ambulatory Assistive Device (Walker, Cane, Wheelchair, Crutches, etc.)? No PATIENT GENDER DATA: Female. status: : No status: NO. PATIENT RELEVANT IMPLANT DATA REVIEWED: Not Applicable PATIENT PRESENTS WITH AN IMPLANTABLE OR ATTACHED BUILDING CONSTRUCTION ENGINEER: No RADIOLOGY DEPARTMENT: CT; Exam(s) Completed: Chest PERIPHERAL IV DATA: Not applicable SIGNED BY: RT Alicia(R) July 11, 2024 2:35 PM documented in this encounterJoint [facility]10-29-2024 NoteHNO ID: [id number] Author: YAHAIRA VERDIN RT(Goran) Service: ? Author Type: Land Appraiser Type: Progress Notes Filed: 07/11/2024 14:35 Note Text: Radiology Service Progress Note PATIENT NAME: Albania Ramsey DATE OF SERVICE: July 11, 2024 TIME: 2:35 PM PATIENT IDENTITY VERIFICATION COMPLETED USING TWO (2) IDENTIFIERS: Name and Date of confirmed by patient verbally. FALL SCREENING: Has the patient had 2 falls in the last year or 1 fall with injury or currently using an Ambulatory Assistive Device (Walker, Cane, Wheelchair, Crutches, etc.)? No PATIENT GENDER DATA: Female. status: : No status: NO. PATIENT RELEVANT IMPLANT DATA REVIEWED: Not Applicable PATIENT PRESENTS WITH AN IMPLANTABLE OR ATTACHED BUILDING CONSTRUCTION ENGINEER: No RADIOLOGY DEPARTMENT: CT; Exam(s) Completed: Chest PERIPHERAL IV DATA: Not applicable SIGNED BY: RT Alicia(R) July 11, 2024 2:35 [facility]COhio[facility] Telephone encounter Note* Telephone Encounter - Kiley Harris APRN.CNP - 06/27/2024 1:21 PM EDT Phone call to patient to follow up. She is better since taking the antibiotics. Plan for follow up CT Chest. Kiley Harris APRN.CNP [facility]10-15-2024 Miscellaneous Notes* Telephone Encounter - Kiley Harris APRN.CNP - 06/27/2024 1:21 PM EDT Phone call to patient to follow up. She is better since taking the antibiotics. Plan for follow up CT Chest. Kiley Harris APRN.CNP * Telephone Encounter - Kiley Harris APRN.CNP - 05/19/2024 11:31 AM EDT Attempted to contact patient to get an update of symptoms after antibiotic treatment. No voicemail is set up, unable to leave a message. Kiley Harris APRN.CNP documented in this encounter[facility] Telephone encounter Note * Telephone Encounter - Nga Ferrer APRN.CNP - 06/14/2024 10:21 AM EDT Noted, thank you. Nga Ferrer APRN.NEAL [facility]10-02-2024 Miscellaneous Notes* Telephone Encounter - Nga Ferrer APRN.CNP - 06/14/2024 10:21 AM EDT Noted, thank you. Nga Ferrer APRN.NEAL * Telephone Encounter - Barb Gross LPN - 06/14/2024 8:44 AM EDT Phoned patient and went over results, notes from Nga Ferrer [employer] with understanding. Patient said she is not having any worsening symptoms, her MRI is scheduled for 06/19/2024. * Telephone Encounter - Nga Ferrer APRN.CNP - 06/14/2024 7:32 AM EDT Can you please call the patient and let her know that I reviewed her lab results. Labs were normal, B12, folate, electrolytes, and thyroid were normal. Can you please ask if she is having any worsening symptoms? I would like her to complete MRI, however if she is having any worsening symptoms I would like to get a CT scan as soon as possible. Nga Ferrer APRN.CNP documented in this encounterJoint [facility]10-[facility]-2024 Telephone encounter Note * Telephone Encounter - Barb Gross LPN - 06/14/2024 8:44 AM EDT Phoned patient and went over results, notes from Nga Ferrer [employer] with understanding. Patient said she is not having any worsening symptoms, her MRI is scheduled for 06/19/2024. [facility]10-02[facility] Telephone encounter Note* Telephone Encounter - Nga Ferrer APRN.CNP - 06/14/2024 7:32 AM EDT Can you please call the patient and let her know that I reviewed her lab results. Labs were normal, B12, folate, electrolytes, and thyroid were normal. Can you please ask if she is having any worsening symptoms? I would like her to complete MRI, however if she is having any worsening symptoms I would like to get a CT scan as soon as possible. Nga Ferrer APRN.CNP [facility]09-27-2024 Instructions* Patient Instructions* Nga Ferrer APRN.CNP - 06/09/2024 9:26 AM EDT Get labs completed Schedule MRI Brain Schedule consult Neurology, Dr. Cazares Be mindful of walking and changing position at home Red flag symptoms go to ER Follow up pending test results or sooner as needed. documented in this encounterJoint [facility]09-27-2024 History of Present illness Narrative* Nga Ferrer APRN.CNP - 06/09/2024 9:20 AM EDT This is a 63 year old female who presents today with: Patient presents with: Acute Visit: Memory problems HISTORY OF PRESENT ILLNESS: Albania Ramsey is a 63 year old female. Patient presents with: Acute Visit: Memory problems Here in the office for difficulty with memory. Symptoms started about 3 weeks ago. Increase in falls at home. Has had about 3 falls in the past 2 weeks. No injuries. Losing balance. Difficulty walking, refers that she trips easily. Will start a conversation and will get lost on what words to use next. Has been forgetful at home, left the stove on. Woke up in the middle night naked, family found her roaming around the house, no recall on this, this has happened twice. Family handling finances. Family history of Parkinson's: Father Had oximetry walking test, SPO2 87% on room air when ambulating. Increased to 92% with 2 L nasal cannula with ambulating. Follows with pulmonology, history of COPD. PAST MEDICAL HISTORY: PAST MEDICAL HISTORY Diagnosis Date Asthma Bipolar I disorder, most recent episode (or current) unspecified Blood dyscrasia Chronic obstructive pulmonary disease (COPD) (HCC) Dysthymic disorder Depression (non-psychotic) Lumbago Osteoarthritis Pulmonary embolus (HCC) 25 years prior Schizophrenia (HCC) follows with Dr Bill at [facility] Snoring Tobacco use disorder 1/2 ppd since age of 11 PAST SURGICAL HISTORY Procedure Laterality Date APPENDECTOMY 1984 COLONOSCOPY FLX DX W/COLLJ SPEC WHEN PFRMD 10/19/2018 Colonoscopy COLONOSCOPY FLX DX W/COLLJ SPEC WHEN PFRMD 11/21/2019 Colonoscopy COLSC FLX W/RMVL OF TUMOR POLYP LESION SNARE TQ 04/19/2012 4 polyps - 3 yr follow up EGD TRANSORAL BIOPSY SINGLE/MULTIPLE 04/19/2012 gastritis ESOPHAGOGASTRODUODENOSCOPY TRANSORAL DIAGNOSTIC 11/21/2019 EGD EXC BREAST LES PREOP PLMT RAD MARKER OPEN 1 LES Left 11/18/2016 Mild duct ectasia, benign microcalcifications HERNIA REPAIR HX 90s Lt inguinal LAPAROSCOPY COLECTOMY PARTIAL W/ANASTOMOSIS 12/19/2018 laparscopic right hemicolectomy LAPAROSCOPY SURG CHOLECYSTECTOMY 1982 Cholecystectomy, lap LAPS ABD PRTM&OMENTUM DX W/WO SPEC BR/WA SPX Laparoscopy PAST SURGICAL HISTORY OF 10/27/2010 L5-S1 Microdisckectomy PAST SURGICAL HISTORY OF Left 11/18/2016 breast bx-Dr. Wise PT ED ORTHOPAEDICS Right 08/04/2023 Shoulder replacement SURGICAL ARTHROSCOPY FAM W/CORACOACRM LIGM RLS Right 11/27/2020 Right shoulder arthroscopy, glenohumeral chondroplasty, biceps tenotomy, SAD TOTAL ABDOMINAL HYSTERECT W/WO RMVL TUBE OVARY 1982 Hysterectomy, VALDEMAR ALLERGIES Demoral [Meperidine], Desyrel [Trazodone Hcl], Doxycycline, Erythromycin, Levaquin [Levofloxacin], Morphine, and Prednisone MEDICATIONS Current Outpatient Medications Medication Sig meloxicam (MOBIC) 7.5 mg tablet Take 1 tablet by mouth once daily. OXYGEN, HOME THERAPY, 2 L/min by Nasal Cannula route continuous. cyclobenzaprine (FLEXERIL) 10 mg tablet Take 1 tablet by mouth three times a day. cholecalciferol, Vitamin D3, (VITAMIN D3) 1,250 mcg (50,000 unit) cap capsule Take 1 capsule by mouth one time a week. meclizine (ANTIVERT) 25 mg tab Take 1 tablet by mouth every 6 hours as needed (dizziness). ondansetron (ZOFRAN) 4 mg tablet Take 1 tablet by mouth every 8 hours as needed for up to [address] (PROTONIX) 20 mg tablet Take 1 tablet by mouth daily before breakfast. Take on empty stomach, 1/2 hr before meal. fluticasone-salmeterol (ADVAIR DISKUS) 250-50 mcg/dose inhaler inhale 1 puff by mouth and INTO THE LUNGS twice a day Rinse mouth after use melatonin 10 mg tab Take 1 tablet by mouth at bedtime as needed. QUEtiapine (SEROQUEL) 400 mg tablet take 2 tablets by mouth once daily at bedtime albuterol (PROVENTIL) 2.5 mg /3 mL (0.083 %) nebulizer solution Use 3 mL via nebulizer every 4 hours as needed for wheezing/shortness of breath. Use over 5-15minutes. lamoTRIgine (LAMICTAL) 150 mg tablet Take 1 tablet by mouth three times daily as needed. albuterol HFA (PROVENTIL HFA, VENTOLIN HFA) 90 mcg/actuation inhaler Inhale 2 Puffs as instructed every 4 hours as needed for Wheezing/Shortness of Breath. prazosin (MINIPRESS) 2 mg cap Take 2 mg by mouth daily at bedtime. sertraline (ZOLOFT) 50 mg tablet Take 50 mg by mouth once daily. benztropine (COGENTIN) 1 mg tablet Take 1 mg by mouth twice daily. No current facility-administered medications for this visit. FAMILY HISTORY Problem Relation Age of Onset Blood Disease Mother Diabetes Mother Colon Cancer Mother Breast Cancer Mother other (Bleeding disorder) Mother Cancer Father prostate Prostate Cancer Father Diabetes Sister Heart disease Sister other (HTN) Sister Stroke Sister other (Same issues as other sister) Sister Cervical Cancer Maternal Aunt Breast Cancer Other cousin Social History Tobacco Use Smoking status: Every Day Current packs/day: 0.50 Average packs/day: 0.5 packs/day for 52.0 years (26.0 ttl pk-yrs) Types: Cigarettes Start date: 10/02/1972 Passive exposure: Past Smokeless tobacco: Never Tobacco comments: start age 11, average of 1.5 PPD since, currently smoking 0.5 PPD Vaping Use Vaping status: Never Used Substance Use Topics Alcohol use: No Drug use: No REVIEW OF SYSTEMS GENERAL: No weight loss, malaise or fevers/chills HEENT: Negative for frequent or significant headaches, No changes in hearing or vision. NECK: Negative for lumps, goiter, pain and significant neck swelling RESPIRATORY: Negative for cough, hemoptysis, wheezing, dyspnea or shortness of breath CARDIOVASCULAR: Negative for chest pain, leg swelling, orthopnea, or palpitations GI: No nausea, vomiting, or diarrhea/constipation. No hematochezia/melena. No heartburn or reflux symptoms. : No history of dysuria, frequency or incontinence MUSCULOSKELETAL: Negative for joint pain or swelling. SKIN: Negative for lesions, rash, and itching ENDOCRINE: Negative for cold or heat intolerance, polyuria, polydipsia and goiter NEURO: + Cognitive changes, falls MOOD: Negative for depression, anxiety, or suicidal ideation. EXAM: BP 127/82 Pulse 95 Resp 20 Wt 52.9 kg (116 lb 10 oz) SpO2 100% BMI (P) 19.11 kg/m PHYSICAL EXAM: General Appearance: Well appearing, alert, in no acute distress, well-hydrated, well nourished. Skin: Skin color, texture, turgor normal, no suspicious rashes or lesions. Head: Normocephalic, no masses, lesions, tenderness or abnormalities. Eyes: Anicteric sclera. Pupils are equally round and reactive to light. Extraocular movements are intact. Lungs: Lungs clear to auscultation. No wheezing, rhonchi, rales.. Heart: RRR without murmur, gallop, or rubs. No ectopy. Extremities: No deformities, edema, skin discoloration, clubbing or cyanosis. Good capillary refill. Peripheral Pulses: Normal. Neurologic: Gait normal. Reflexes normal and symmetric. Sensation grossly intact., Negative findings: speech normal, cranial nerves 2-12 intact, muscle tone normal, muscle strength normal, sensation to light touch and pinprick normal [place] ASSESSMENT/PLAN: 1. Falls - ICD9: E888.9, ICD10: R29.6 (primary diagnosis) - Get las completed - Be mindful with position changes. - COMPLETE BLOOD COUNT AND DIFFERENTIAL - COMPREHENSIVE METABOLIC PANEL - VITAMIN B12 - FOLATE, SERUM - THYROID STIMULATING HORMONE - T4 FREE/FREE THYROXINE - CONSULT TO NEUROLOGY - IV CONTRAST (RADIOLOGY PROCEDURE) - MAGNESIUM 2. Cognitive changes - ICD9: 799.59, ICD10: R41.89 - Failed mini cog - Get the following labs completed. - Get MRI completed - Recommend consult with neurology. - Red flag symptoms given to the patient, she verbalizes understanding when to seek care. - COMPLETE BLOOD COUNT AND DIFFERENTIAL - COMPREHENSIVE METABOLIC PANEL - VITAMIN B12 - FOLATE, SERUM - THYROID STIMULATING HORMONE - T4 FREE/FREE THYROXINE - CONSULT TO NEUROLOGY - MAGNESIUM 3. Cognitive impairment, mild, so stated - ICD9: 331.83, ICD10: G31.84 - MRI BRAIN WO/W IVCON - IV CONTRAST (RADIOLOGY PROCEDURE) 4. COPD, severe (HCC) - ICD9: 496, ICD10: J44.9 - Oxygen order faxed to - Follow up with pulmonology. 5. Requires oxygen therapy - ICD9: V46.2, ICD10: Z99.81 - Same plan as #4. 6. Encounter for screening examination for other mental health and behavioral disorders - ICD9: V79.8, ICD10: Z13.39 - ANXIETY SCREENING 7. Screening for depression - ICD9: V79.0, ICD10: Z13.31 - DEPRESSION SCREENING Follow-up pending test results or sooner as needed. Discussed treatment plan and patient voices understanding. Patient's questions answered appropriately. Medications and potential side effects were discussed and patient voices understanding. Nga Ferrer APRN.CNP This note was partially generated using [employer] voice recognition system. Note was reviewed for accuracy. There may be minor misspellings or grammar miscues with [employer] voice recognition. documented in this encounterJoint [facility]09-27-2024 NoteHNO ID: [id number] Author: NGA FERRER APRN.CNP Service: ? Author Type: Nurse Practitioner Type: Progress Notes Filed: 06/09/2024 15:34 Note Text: This is a 63 year old female who presents today with: Patient presents with: Acute Visit: Memory problems HISTORY OF PRESENT ILLNESS: Albania Ramsey is a 63 year old female. Patient presents with: Acute Visit: Memory problems Here in the office for difficulty with memory. Symptoms started about 3 weeks ago. Increase in falls at home. Has had about 3 falls in the past 2 weeks. No injuries. Losing balance. Difficulty walking, refers that she trips easily. Will start a conversation and will get lost on what words to use next. Has been forgetful at home, left the stove on. Woke up in the middle night naked, family found her roaming around the house, no recall on this, this has happened twice. Family handling finances. Family history of Parkinson's: Father Had oximetry walking test, SPO2 87% on room air when ambulating. Increased to 92% with 2 L nasal cannula with ambulating. Follows with pulmonology, history of COPD. PAST MEDICAL HISTORY: PAST MEDICAL HISTORY Diagnosis Date Asthma Bipolar I disorder, most recent episode (or current) unspecified Blood dyscrasia Chronic obstructive pulmonary disease (COPD) (HCC) Dysthymic disorder Depression (non-psychotic) Lumbago Osteoarthritis Pulmonary embolus (HCC) 25 years prior Schizophrenia (HCC) follows with Dr Bill at [facility] Snoring Tobacco use disorder 1/2 ppd since age of 11 PAST SURGICAL HISTORY Procedure Laterality Date APPENDECTOMY 1985 COLONOSCOPY FLX DX W/COLLJ SPEC WHEN PFRMD 10/19/2018 Colonoscopy COLONOSCOPY FLX DX W/COLLJ SPEC WHEN PFRMD 11/21/2019 Colonoscopy COLSC FLX W/RMVL OF TUMOR POLYP LESION SNARE TQ 04/19/2012 4 polyps - 3 yr follow up EGD TRANSORAL BIOPSY SINGLE/MULTIPLE 04/19/2012 gastritis ESOPHAGOGASTRODUODENOSCOPY TRANSORAL DIAGNOSTIC 11/21/2019 EGD EXC BREAST LES PREOP PLMT RAD MARKER OPEN 1 LES Left 11/18/2016 Mild duct ectasia, benign microcalcifications HERNIA REPAIR HX 90s Lt inguinal LAPAROSCOPY COLECTOMY PARTIAL W/ANASTOMOSIS 12/19/2018 laparscopic right hemicolectomy LAPAROSCOPY SURG CHOLECYSTECTOMY 1982 Cholecystectomy, lap LAPS ABD PRTMANDOMENTUM DX W/WO SPEC BR/WA SPX Laparoscopy PAST SURGICAL HISTORY OF 10/27/2010 L5-S1 Microdisckectomy PAST SURGICAL HISTORY OF Left 11/18/2016 breast bx-Dr. Wise PT ED ORTHOPAEDICS Right 08/04/2023 Shoulder replacement SURGICAL ARTHROSCOPY FAM W/CORACOACRM LIGM RLS Right 11/27/2020 Right shoulder arthroscopy, glenohumeral chondroplasty, biceps tenotomy, SAD TOTAL ABDOMINAL HYSTERECT W/WO RMVL TUBE OVARY 1981 Hysterectomy, VALDEMAR ALLERGIES Demoral [Meperidine], Desyrel [Trazodone Hcl], Doxycycline, Erythromycin, Levaquin [Levofloxacin], Morphine, and Prednisone MEDICATIONS Current Outpatient Medications Medication Sig meloxicam (MOBIC) 7.5 mg tablet Take 1 tablet by mouth once daily. OXYGEN, HOME THERAPY, 2 L/min by Nasal Cannula route continuous. cyclobenzaprine (FLEXERIL) 10 mg tablet Take 1 tablet by mouth three times a day. cholecalciferol, Vitamin D3, (VITAMIN D3) 1,250 mcg (50,000 unit) cap capsule Take 1 capsule by mouth one time a week. meclizine (ANTIVERT) 25 mg tab Take 1 tablet by mouth every 6 hours as needed (dizziness). ondansetron (ZOFRAN) 4 mg tablet Take 1 tablet by mouth every 8 hours as needed for up to [address] (PROTONIX) 20 mg tablet Take 1 tablet by mouth daily before breakfast. Take on empty stomach, 1/2 hr before meal. fluticasone-salmeterol (ADVAIR DISKUS) 250-50 mcg/dose inhaler inhale 1 puff by mouth and INTO THE LUNGS twice a day Rinse mouth after use melatonin 10 mg tab Take 1 tablet by mouth at bedtime as needed. QUEtiapine (SEROQUEL) 400 mg tablet take 2 tablets by mouth once daily at bedtime albuterol (PROVENTIL) 2.5 mg /3 mL (0.083 %) nebulizer solution Use 3 mL via nebulizer every 4 hours as needed for wheezing/shortness of breath. Use over 5-15minutes. lamoTRIgine (LAMICTAL) 150 mg tablet Take 1 tablet by mouth three times daily as needed. albuterol HFA (PROVENTIL HFA, VENTOLIN HFA) 90 mcg/actuation inhaler Inhale 2 Puffs as instructed every 4 hours as needed for Wheezing/Shortness of Breath. prazosin (MINIPRESS) 2 mg cap Take 2 mg by mouth daily at bedtime. sertraline (ZOLOFT) 50 mg tablet Take 50 mg by mouth once daily. benztropine (COGENTIN) 1 mg tablet Take 1 mg by mouth twice daily. No current facility-administered medications for this visit. FAMILY HISTORY Problem Relation Age of Onset Blood Disease Mother Diabetes Mother Colon Cancer Mother Breast Cancer Mother other (Bleeding disorder) Mother Cancer Father prostate Prostate Cancer Father Diabetes Sister Heart disease Sister other (HTN) Sister Stroke Sister other (Same issues as other siste (more content not included)...[facility]09-24-2024 Telephone encounter Note* Telephone Encounter - Josh Mirza APRN.CNP - 06/06/2024 11:59 AM EDT The following approved medication requests have been transmitted electronically. Requested Prescriptions Pending Prescriptions Disp Refills meloxicam (MOBIC) 7.5 mg tablet 30 tablet 2 Sig: Take 1 tablet by mouth once daily. Josh Mirza APRN.CNP [facility]09-24-2024 Miscellaneous Notes* Telephone Encounter - Josh Mirza APRN.CNP - 06/06/2024 11:59 AM EDT The following approved medication requests have been transmitted electronically. Requested Prescriptions Pending Prescriptions Disp Refills meloxicam (MOBIC) 7.5 mg tablet 30 tablet 2 Sig: Take 1 tablet by mouth once daily. Josh Mirza APRN.CNP * Telephone Encounter - Kathi Felder LPN - 06/06/2024 11:38 AM EDT Prescription Refill Information The patient has been identified by name and date of : Yes Caregiver verified no other encounters exist for this prescription request: Yes Caregiver confirmed with patient/requestor that no other refills are due, in the near future, with this provider at this time: Yes The last office visit in the department: 04/25/24 Does the patient have a future office visit with this provider/department: Yes -06/09/24 Requested Prescriptions Pending Prescriptions Disp Refills meloxicam (MOBIC) 7.5 mg tablet 30 tablet 2 Sig: Take 1 tablet by mouth once daily. Kathi Felder LPN June 06, 2024 11:38 AM documented in this encounterJoint [facility]09-24-2024 Telephone encounter Note * Telephone Encounter - Kathi Felder LPN - 06/06/2024 11:38 AM EDT Prescription Refill Information The patient has been identified by name and date of : Yes Caregiver verified no other encounters exist for this prescription request: Yes Caregiver confirmed with patient/requestor that no other refills are due, in the near future, with this provider at this time: Yes The last office visit in the department: 04/25/24 Does the patient have a future office visit with this provider/department: Yes -06/09/24 Requested Prescriptions Pending Prescriptions Disp Refills meloxicam (MOBIC) 7.5 mg tablet 30 tablet 2 Sig: Take 1 tablet by mouth once daily. Kathi Felder LPN June 06, 2024 11:38 AM [facility]09-23-2024 NoteHNO ID: [id number] Author: JINA SANCHES RPFT Service: ? Author Type: Respiratory Therapist Type: Procedures Filed: 06/05/2024 09:31 Note Text: RESPIRATORY THERAPY OXIMETRY WITH AMBULATION Oximetry with Ambulation Test for This Encounter O2 Device O2 Adapter NC O2 Flow SpO2% HR Activity Ft Walked (ft) Time (min) Avg Speed (MPH) R/A 92 109 Resting R/A 87 122 Walking, usual pace 200 2 1.14 NC 2 94 108 Resting NC 2 92 120 Walking, usual pace 250 3 0.95 General Information Pulse Oximetry Site Total Time Spent Walking Assistance/O2 Supply Carrier L Index Finger 30 Wheeled Walker NAME: RILEY Hassan PATIENT NAME: Albania Ramsey DATE: June 05, 2024 TIME: 9:31 AM Comment:[facility]09-23-2024 Procedure note* Jina Sanches RPFT - 06/05/2024 9:31 AM EDTAssociated Order(s): OXIMETRY WITH AMBULATION RESPIRATORY THERAPY OXIMETRY WITH AMBULATION Oximetry with Ambulation Test for This Encounter O2 Device O2 Adapter NC O2 Flow SpO2% HR Activity Ft Walked (ft) Time (min) Avg Speed (MPH) R/A 92 109 Resting R/A 87 122 Walking, usual pace 200 2 1.14 NC 2 94 108 Resting NC 2 92 120 Walking, usual pace 250 3 0.95 General Information Pulse Oximetry Site Total Time Spent Walking Assistance/O2 Supply Carrier L Index Finger 30 Wheeled Walker NAME: RILEY Hassan PATIENT NAME: Albania Ramsey DATE: June 05, 2024 TIME: 9:31 AM Comment: [facility] Procedure note* Jina Sanches RPFT - 06/05/2024 9:31 AM EDTAssociated Order(s): OXIMETRY WITH AMBULATION RESPIRATORY THERAPY OXIMETRY WITH AMBULATION Oximetry with Ambulation Test for This Encounter O2 Device O2 Adapter NC O2 Flow SpO2% HR Activity Ft Walked (ft) Time (min) Avg Speed (MPH) R/A 92 109 Resting R/A 87 122 Walking, usual pace 200 2 1.14 NC 2 94 108 Resting NC 2 92 120 Walking, usual pace 250 3 0.95 General Information Pulse Oximetry Site Total Time Spent Walking Assistance/O2 Supply Carrier L Index Finger 30 Wheeled Walker NAME: RILEY Hassan PATIENT NAME: Albania Ramsey DATE: June 05, 2024 TIME: 9:31 AM Comment: documented in this encounterJoint Township District [facility]09-23-2024 NoteHNO ID: [id number] Author: JINA SANCHES RPFT Service: ? Author Type: Respiratory Therapist Type: Progress Notes Filed: 06/05/2024 09:31 Note Text: PULM FUNCTION: Provider: Teresa Aguilar MD Assisting Tech: Jina Sanches RPFT [facility]xim[facility] - [facility]: [facility] of Present illness Narrative* Jina Sanches RPFT - 06/05/2024 9:28 AM EDT PULM FUNCTION: Provider: Teresa Aguilar MD Assisting Tech: Jina Sanches RPFT Oximetry - Ambulation: 1 documented in this encounterJoint Township District [facility] Hospital09-23-2024 Telephone encounter Note * Telephone Encounter - Nga Ferrer APRN.CNP - 06/05/2024 9:26 AM EDT Order placed for oximetry with ambulation as requested. Nga Ferrer APRN.CNP [facility]09-23-2024 Miscellaneous Notes* Telephone Encounter - Nga Ferrer APRN.CNP - 06/05/2024 9:26 AM EDT Order placed for oximetry with ambulation as requested. Nga Ferrer APRN.CLINICAL WRITER documented in this encounterJoint Township District [facility]09-18-2024 NotePatient Outreach (INTMMN) ALBANIA RAMSEY ([id number]) 1960 F Date Time Provider Department 05/31/24 TERESA AGUILAR INTMMN During your visit today, we recorded the following information about you: Allergies As of Date: 05/31/2024 Noted Allergy Reaction DEMORAL (MEPERIDINE) 02/03/2008 2 - Rash DESYREL (TRAZODONE HCL) 06/30/2006 2 - Rash DOXYCYCLINE 07/15/2010 4 - Hives ERYTHROMYCIN 06/30/2006 2 - Rash LEVAQUIN (LEVOFLOXACIN) 03/29/2024 2 - Rash MORPHINE 06/30/2006 7 - Swelling PREDNISONE 05/13/2010 2 - Rash Date Reviewed: 04/25/2024 Reviewed by: Dolly Acosta MA - Fully Assessed Visit Diagnosis:Encounter for screening mammogram for breast cancer [Z12.31] Order(s):[facility] SCREENING [facility] [[id number]] Order #: [id number] FUTURE Prescriptions as of 06/05/2024 - OXYGEN, HOME THERAPY, 2 L/min by Nasal Cannula route continuous. - cyclobenzaprine (FLEXERIL) 10 mg tablet Take 1 tablet by mouth three times a day. - cholecalciferol, Vitamin D3, (VITAMIN D3) 1,250 mcg (50,000 unit) cap capsule Take 1 capsule by mouth one time a week. - meclizine (ANTIVERT) 25 mg tab Take 1 tablet by mouth every 6 hours as needed (dizziness). - ondansetron (ZOFRAN) 4 mg tablet Take 1 tablet by mouth every 8 hours as needed for up to 10 doses. - pantoprazole DR (PROTONIX) 20 mg tablet Take 1 tablet by mouth daily before breakfast. Take on empty stomach, 1/2 hr before meal. - meloxicam (MOBIC) 7.5 mg tablet Take 1 tablet by mouth once daily. - fluticasone-salmeterol (ADVAIR DISKUS) 250-50 mcg/dose inhaler inhale 1 puff by mouth and INTO THE LUNGS twice a day Rinse mouth after use - melatonin 10 mg tab Take 1 tablet by mouth at bedtime as needed. - QUEtiapine (SEROQUEL) 400 mg tablet take 2 tablets by mouth once daily at bedtime - albuterol (PROVENTIL) 2.5 mg /3 mL (0.083 %) nebulizer solution Use 3 mL via nebulizer every 4 hours as needed for wheezing/shortness of breath. Use over 5-15minutes. - lamoTRIgine (LAMICTAL) 150 mg tablet Take 1 tablet by mouth three times daily as needed. - albuterol HFA (PROVENTIL HFA, VENTOLIN HFA) 90 mcg/actuation inhaler Inhale 2 Puffs as instructed every 4 hours as needed for Wheezing/Shortness of Breath. - prazosin (MINIPRESS) 2 mg cap Take 2 mg by mouth daily at bedtime. - sertraline (ZOLOFT) 50 mg tablet Take 50 mg by mouth once daily. - benztropine (COGENTIN) 1 mg tablet Take 1 mg by mouth twice daily. Problem List As Of Date 05/31/2024 Noted Resolved TOBACCO USE DISORDER [F17.200] Acute bronchitis with chronic obstructive pulmo*07/01/2006 BENIGN PARXYSMAL VERTIGO [H81.10] 04/06/2007 LUMBAGO [M54.50] 05/02/2007 Bipolar I disorder, most recent episode (or cur*05/02/2007 GERD (gastroesophageal reflux disease) [K21.9] 04/21/2011 History of lumbar discectomy [Z98.890] 08/17/2011 Lumbar disc displacement without myelopathy [M5*08/17/2011 DDD (degenerative disc disease), lumbar [M51.36]08/17/2011 Lumbar radiculopathy [M54.16] 11/02/2011 Lumbar spondylosis [M47.816] 01/18/2012 Family history of colon cancer [Z80.0] 04/07/2012 Special screening for malignant neoplasms, colo*04/07/2012 Benign neoplasm of colon [D12.6] 04/19/2012 Acute gastritis without mention of hemorrhage [*04/19/2012 Sacroiliac joint dysfunction [M53.3] 04/07/2013 Peroneal tendinitis of left lower extremity [M7*02/02/2014 Pes cavus [Q66.70] 02/02/2014 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] 02/02/2014 Achilles tendinitis [M76.60] 02/02/2014 Left shoulder pain [M25.512] 04/17/2015 Pain in joint, ankle and foot [M25.579] 04/18/2015 Encounter for screening colonoscopy [Z12.11] 10/02/2015 Abnormal finding on breast imaging [R92.8] 05/05/2016 Chronic right-sided low back pain with right-si*07/08/2016 Chronic right shoulder pain [M25.511, G89.29] 05/22/2020 COPD with exacerbation (HCC) [J44.1] 07/22/2020 Requires oxygen therapy [Z99.81] 05/21/2023 Preop testing [Z01.818] 07/21/2023 Asthma [J45.909] 07/21/2023 Diagnosed: 07/21/2023 Essential (primary) hypertension [I10] 07/21/2023 Diagnosed: 07/21/2023 History of pulmonary embolus (PE) [Z86.711] 07/21/2023 Chronic hypoxemic respiratory failure (HCC) [J9*07/21/2023 Presence of right artificial shoulder joint [Z9*08/18/2023 Encounter Status:Closed by LUIS EDUARDO LIEBERMANUSEGoran on 06/05/24[facility] 05-30-2024 Telephone encounter Note* Telephone Encounter - Josh Mirza APRN.CLINICAL WRITER - 05/30/2024 2:37 PM EDT Scheduled for 06/05/2024 Josh Mirza APRN.CNP [facility] Work Phone: [phone]) 709-946509-17-2024 Miscellaneous Notes* Telephone Encounter - Josh Mirza APRN.CNP - 05/30/2024 2:37 PM EDT Scheduled for 06/05/2024 Josh Mirza APRN.CNP * Telephone Encounter - Josh Mirza APRN.CNP - 05/30/2024 12:55 PM EDT I ordered the patient a 6-minute walk test previously. I discussed with her that this is performed in the PFT lab. Can we please assist with getting the patient an appointment with the PFT lab to have this test completed for oxygen requirement purposes for Medicaid? I discussed with patient and sheis waiting on a call. Josh Mirza APRN.CNP documented [facility] Telephone encounter Note * Telephone Encounter - Josh Mirza APRN.CNP - 05/30/2024 12:55 PM EDT I ordered the patient a 6-minute walk test previously. I discussed with her that this is performed in the PFT lab. Can we please assist with getting the patient an appointment with the PFT lab to have this test completed for oxygen requirement purposes for Medicaid? I discussed with patient and sheis waiting on a call. Josh Mirza APRN.CNP [facility]09-17-2024 Telephone encounter Note* Telephone Encounter - Kimberly Mcneal LPN - 05/30/2024 12:19 PM EDT Patient needs scheduled for PFT Pulmonary. Sending to clerical to schedule. [facility]09-17-2024 Miscellaneous Notes* Telephone Encounter - Kimberly Mcneal LPN - 05/30/2024 12:19 PM EDT Patient needs scheduled for [facility]FT Pulmonary. Sending to clerical to schedule. * Telephone Encounter - Lennie Khan MA - 05/25/2024 10:14 AM EDT Spoke with pt, appt made. Reminder mailed. Will leave encounter open until form has been completed an faxed back. Lennie Khan MA * Telephone Encounter - Josh Mirza APRN.CNP - 05/25/2024 8:32 AM EDT Yes, she follows with pulm, but Dr. Aguilar ordered the oxygen. So we should get a 6 minute walktest. I placed the order. I think she just needs to schedule. Josh Mirza APRN.NEAL * Telephone Encounter - Lennie Khan MA - 05/18/2024 9:21 AM EDT Should pt follow up with Pulmonary as she has seen Betzy Alejandro PA-C in March. Lennie Khan MA * Telephone Encounter - Nighat Scales RN - 05/18/2024 9:12 AM EDT Lou from Medical Services calls and reports that patient is going to need to re qualify for O2. Patient is going to have to have another 6 minute walk done to re-qualify. For Medicaid to cover O2 patient needs to stat 88 or below with current diagnoses. Nighat Scales RN documented in [facility] Telephone encounter Note * Telephone Encounter - Lennie Khan MA - 05/25/2024 10:14 AM EDT Spoke with pt, appt made. Reminder mailed. Will leave encounter open until form has been completed an faxed back. Lennie Khan MA [facility]09-12-2024 Telephone encounter Note* Telephone Encounter - Josh Mirza APRN.CNP - 05/25/2024 8:32 AM EDT Yes, she follows with pulm, but Dr. Aguilar ordered the oxygen. So we should get a 6 minute walktest. I placed the order. I think she just needs to schedule. Josh Mirza APRN.NEAL [facility]09-06-2024 Telephone encounter Note* Telephone Encounter - Kiley Harris APRN.CNP - 05/19/2024 11:31 AM EDT Attempted to contact patient to get an update of symptoms after antibiotic treatment. No voicemail is set up, unable to leave a message. Kiley Harris APRN.CNP [facility]09-05-2024 Telephone encounter Note* Telephone Encounter - Lennie Khan MA - 05/18/2024 9:21 AM EDT Should pt follow up with Pulmonary as she has seen Betzy Alejandro PA-C in March. Lennie Khan MA [facility]09-05-2024 Telephone encounter Note* Telephone Encounter - Nighat Scales RN - 05/18/2024 9:12 AM EDT Lou from Medical Services calls and reports that patient is going to need to re qualify for O2. Patient is going to have to have another 6 minute walk done to re-qualify. For Medicaid to cover O2 patient needs to stat 88 or below with current diagnoses. Nighat Scales RN [facility]09-04-2024 Hospital Discharge instructions Patient Education 05/17/2024 15:16:13 Medical Screening Exam, Nonemergent Medical Screening Exam: No Emergency You have had a medical screening exam. The results show that you don t have a condition that needs to be treated in the emergency department. You can safely wait until you can see your healthcare provider for evaluation or treatment. It is up to you to make an appointment for follow-up care. Medical emergencies If you think you have a medical emergency, please come to the emergency department. That s what we are here for. A medical emergency might be severe pain. It might be a condition that gets worse. Or it might be problems with a . The emergency department is open to all who need treatment. But if you don t think you have a serious or life-threatening problem, try these other choices. If you have a primary care doctor: Call your doctor before coming to the emergency department. After office hours, someone from your doctor s office is on-call by phone. The person on-call may be able to give you advice over the phone on how to take care of the problem You may be able to get an appointment to see your doctor. If you don t have a primary care doctor: Call the referral doctor or clinic shown below during office hours. You should be able to make an appointment to be seen. If you aren t sure whether you are having an emergency, you can always return to the emergency department to be looked at. Phone advice from the emergency department We are here 24 hours a day to give emergency care. But this hospital does not give phone advice formedical conditions. If you need advice for a condition that can t wait to be seen by your doctor, you will need to come back to this facility in person. 2426-3325 [employer]. [address] [place] [address], [place] [address]. All rights reserved. This information is not intended as a substitute for professional medical care. Always follow yourhealthcare professional's instructions. Follow Up Care 05/17/2024 14:25:19 With:TERESA AGUILAR MD Address: [address], [place] [id number]- When:2-4 days [facility] 09-04-2024 Note Discharge Instructions Thank you for allowing [facility] to assist you with your healthcare needs. The following is importantdischarge information regarding your hospital visit. Diagnosis from Today's Visit Well adult What to Do Next Instructions from Your Care Team No qualifying data available. Post Acute Orders No qualifying data available. You Need to Schedule the Following Appointments Follow Up with TERESA AGUILAR MD When:Within 2-4 days Where:[address], [place] [address]- Allergies Demerol HCl (Moderate) Hives Desyrel (Moderate) blotches over body predniSONE (Moderate) stomach problems erythromycin (Mild) rash morphine (Mild) rash over body doxycycline Hives Medications Please ask your primary doctor or pharmacist before taking any other medication not listed, including over the counter drugs, herbal medications, vitamins and or supplements as they may interact withyour home medications. What How Much When Why Instructions Last Dose Unchanged acetaminophen- hydrocodone ([place] 325- 5 mg oral tablet) 1 tab(s) by mouth Every 6 hours Ankle sprain Duration: 2 Days Unchanged albuterol (albuterol MDI (90 mcg/ inh) CFC free inhalation aerosol) 2 puff(s) by inhalation Every 4 hours Unchanged albuterol (ProAir HFA MDI (90 mcg/ inh) inhalation aerosol) 1 puff(s) by inhalation Four (4) times a day as needed for for wheezing Unchanged albuterol-ipratropium (DuoNeb 0.5 mg-2.5 mg/ 3 mL inhalation solution) 3 Milliliter by inhalation Four (4) times a day Unchanged APAP/ butalbital/ caffeine (Fioricet oral capsule - use generic Fioricet tablet) 1 cap by mouth Every 4 hours as needed for Pain Unchanged benztropine (benztropine 1 mg oral tablet) 1 tab(s) by mouth Two (2) times a day Unchanged buPROPion (buPROPion 150 mg/ 24 hours (XL) oral tablet, extended release) 1 tab(s) by mouth Every 24 hours Unchanged escitalopram (Lexapro 5 mg oral tablet) 1 1/2 tablet by mouth Every day Unchanged fluticasone nasal (Flonase 50 mcg/ inh nasal spray) 1 spray(s) in the nose Two (2) times a day Upper respiratory infection in each nostril Unchanged lamoTRIgine (Lamictal 100 mg oral tablet) 1 tab(s) by mouth Once a day Unchanged lamoTRIgine (lamoTRIgine 100 mg oral tablet) 1 tab(s) by mouth Two (2) times a day Unchanged meloxicam (meloxicam 15 mg oral tablet) take 1 tablet by mouth once daily with food Unchanged Misc Medication (RA MELATONIN 10 MG TABLET) take 1 tablet by mouth at bedtime if needed Unchanged naproxen (Naprosyn 500 mg oral tablet) 1 tab(s) by mouth Twice daily with meals as needed for Pain Unchanged naproxen (Naprosyn 500 mg oral tablet) 1 tab(s) by mouth Twice daily with meals as needed for Pain Duration: 7 Days Unchanged omeprazole (NF) (omeprazole 20 mg oral delayed release capsule (NF)) 1 cap by mouth Once a day Unchanged prazosin (prazosin 1 mg oral capsule) 1 cap by mouth Three (3) times a day Unchanged QUEtiapine (SEROquel 300 mg oral tablet) 1 tab(s) by mouth Daily at bedtime Unchanged sertraline (sertraline 50 mg oral tablet) 1 tab(s) by mouth Every day Please take this list to your next doctor s visit. Bring all medications you take, including over the counter medications, herbals and other supplements with you to your doctor s visit. Patients and families are reminded to discard old lists and to update any records with all medication providers or retail pharmacies. Education Materials Medical Screening Exam: No Emergency You have had a medical screening exam. The results show that you don t have a condition that needs to be treated in the emergency department. You can safely wait until you can see your healthcare provider for evaluation or treatment. It is up to you to make an appointment for follow-up care. Medical emergencies If you think you have a medical emergency, please come to the emergency department. That s what we are here for. A medical emergency might be severe pain. It might be a condition that gets worse. Or it might be problems with a . The emergency department is open to all who need treatment. But if you don t think you have a serious or life-threatening problem, try these other choices. If you have a primary care doctor: Call your doctor before coming to the emergency department. After office hours, someone from your doctor s office is on-call by phone. The person on-call may be able to give you advice over the phone on how to take care of the problem You may be able to get an appointment to see your doctor. If you don t have a primary care doctor: Call the referral doctor or clinic shown below during office hours. You should be able to make an appointment to be seen. If you aren t sure whether you are having an emergency, you can always return to the emergency department to be looked at. Phone advice from the emergency department We are here 24 hours a day to give emergency care. But this hospital does not give phone advice formedical conditions. If you need advice for a condition that can t wait to be seen by your doctor, you will need to come back to this facility in person. [phone] [employer]. [address] [place] [address]. All rights reserved. This information is not intended as a substitute for professional medical care. Always follow yourhealthcare professional's instructions. Additional Information VACCINATE! IT SAVES LIVES! Members of the community who have not yet received the COVID-19 vaccine and would like to receive it can visit one of [facility] vaccine clinics. There are many vaccine clinic locations within the [facility]. For locations and available times, please visit www.[email or web address].[place].gov/. It is important to note that some COVID mobile vaccine clinics are held outdoors and may be canceled in rainy or stormy conditions. To learn more about pediatric vaccinations (ages 5-11), we invite you to visit the [facility] webpage. [email or web address]/pages/[email or web address]-Ittce-Ujeartxvrfi-[email or web address]-[email or web address]-Epq stions.htmlTo learn more about the COVID-19 vaccine, we invite you to visit the CDC website for a list of frequently asked questions. https://www.cdc.gov/coronavirus/2019-ncov/vaccines/faq.html [facility] Patient Portal Access Instructions: Stay connected with your healthcare team and access your personal medical information anytime with the [facility] Patient Portal. If you would like a full copy of your medical records please contact the [facility] Medical Records Department Wednesday through Wednesday between 8a.m. and 4:30p.m. Please follow the directions below to access the portal: 1.Access the email account you provided upon registration to the special care hospital.2.Look for an invitation email from [facility].3.Open the email and access the invitation link: Accept Invitation to [facility]4.Fill in the required hester to create your account. Sign into [email or web address].[email or web address] with your username and password that you created in the above steps to stay up to date. You can then view a summary of results, a summary of your visits, and the ability to download your summaries to your computer or send the information securely to a physician. Remember that your healthcare information is confidential, so carefully consider who you will allow to register on the [facility] Patient Portal for access to your information. You can also access the [facility] Patient Portal on the [employer] leonarda. Simply click on Health Records under [employer] and then click on the [employer] logo. HOW TO SAFELY DISPOSE OF PRESCRIPTION MEDICATIONS Please use one of the following methods to safely dispose of your unused medications. 1.Use a drug disposal kit: the drug disposal pouch allows you to safely discard your old and unuseddrugs. Ask your nurse to give you one when you are discharged.2.Visit a local take-back location: Many local pharmacies and police departments have programs that collect old and unwanted prescriptiondrugs. Call your local pharmacy or go to http://PromptCare.Macheen/6A9Jt1b to find one close to you.3.Make use of household items: Use cat litter or old coffee grounds to dispose medications if other options arenot available. Mix your drugs with these household products, seal them in an airtight container andthrow it into the garbage. Call [facility]: [phone] to be sure your drugs can be disposed of in this way. Some medicines may require a different approach.4.Never flush your medications down the toilet. IF YOU HAVE BEEN PRESCRIBED AN OPIOIDS FOR PAIN If you have been prescribed an opioid (such as hydrocodone, oxycodone or morphine), it is critical to understand the possible side effects and risks of opioid pain medications. Even when taken as directed, opioids can have several side effects including: Tolerance, meaning you might need to take more of a medication for the same pain relief. Nausea, vomiting and/or constipation. Sleepiness, dizziness, dry mouth, confusion, depression or itching. Physical dependence, meaning you have withdrawal symptoms when a medication is stopped ? this can develop within a few days. KNOW YOUR RESPONSIBILITIES It is important to know exactly how much and how often to take the opioid pain medications you are prescribed. Never take opioids in higher amounts or more often than prescribed. Do not combine opioids with alcohol or other drugs that cause drowsiness, such as benzodiazepines, also known as benzos,including diazepam and alprazolam, muscle relaxants or sleep aids. Never sell or share prescriptionopioids. This is illegal. Store opioids in a secure place and out of reach of others (including children, family, friends and visitors). The last page(s) of this document has been signed and retained as a CHART COPY Signatures Patient Education Materials Medical Screening Exam, Nonemergent Medication Leaflets My discharge plan and instructions have been reviewed and explained to me and IROXY LINDA C understand my current condition and have read and understand these discharge instructions. I have received a written copy of the plan/instructions. If I have questions, I am aware that I should contact my doctor. Patient/Cold Working Inspector Signature: Date/Time: Relationship to Patient: Witness Name/Signature: Date/Time: [id number] Telephone encounter Note* Telephone Encounter - Teresa Aguilar MD - 05/08/2024 12:44 PM EDT Noted Teresa Aguilar MD [facility]08-26-2024 Miscellaneous Notes* Telephone Encounter - Teresa Aguilar MD - 05/08/2024 12:44 PM EDT Noted Teresa Aguilar MD * Telephone Encounter - Nighat Scales RN - 05/08/2024 10:17 AM EDT Patient calls and forgets what she is calling about but she knew it was for an appointment. Asked patient if she is having memory issues. Patient states that she has been having issues x 3 weeks. Patient only wants to see Dr. Aguilar for appointment. Appointment scheduled with Dr. Aguilar for05/16/2024. Nighat Scales RN * Telephone Encounter - Nighat Scales RN - 05/08/2024 9:50 AM EDT Patient son Josh call and is concerned because he feels like patient is having memory issues. Josh reports that patient forgets what she is talking about mid sentence. Patient will get undressed inthe middle of the night, wakes up without clothes, and does not know where clothes are. Advised Josh that patient would have to set up appointment to discuss this. Johs states that patient would nev er do this because patient does not think that she has memory issues. Nighat Scales RN documented in [facility] encounterJoint [facility]08-[facility]-2024 Telephone encounter Note * Telephone Encounter - Nighat Scales RN - 05/08/2024 10:17 AM EDT Patient calls and forgets what she is calling about but she knew it was for an appointment. Asked patient if she is having memory issues. Patient states that she has been having issues x 3 weeks. Patient only wants to see Dr. Aguilar for appointment. Appointment scheduled with Dr. Aguilar for05/16/2024. Nighat Scales RN [facility]08-26-2024 Telephone encounter Note* Telephone Encounter - Nighat Scales RN - 05/08/2024 9:50 AM EDT Patient son Josh call and is concerned because he feels like patient is having memory issues. Josh reports that patient forgets what she is talking about mid sentence. Patient will get undressed inthe middle of the night, wakes up without clothes, and does not know where clothes are. Advised Josh that patient would have to set up appointment to discuss this. Josh states that patient would nev er do this because patient does not think that she has memory issues. Nighat Scales RN [facility]08-15-2024 Telephone encounter Note* Telephone Encounter - Dolly Acosta MA - 04/27/2024 4:23 PM EDT Form signed and faxed back to information below. Dolly Acosta MA [facility]08-15-2024 Miscellaneous Notes* Telephone Encounter - Dolly Acosta MA - 04/27/2024 4:23 PM EDT Form signed and faxed back to information below. Dolly Acosta MA * Telephone Encounter - Dolly Acosta MA - 04/27/2024 3:16 PM EDT Type of form: Medical Necessity for O2. Form received via fax When form is completed, Fax form to [phone] Form has been forwarded to Physician Desk: Dr. Aguilar. They are requesting additional information for pt O2 use. Pt currently follows with Pulmonary. In Pulm note pt had respiratory therapy with Ox w/ambulation. Dolly Acosta MA documented in this encounterJoint [facility]08-[facility]-2024 Telephone encounter Note * Telephone Encounter - Dolly Acosta MA - 04/27/2024 3:16 PM EDT Type of form: Medical Necessity for O2. Form received via fax When form is completed, Fax form to [phone] Form has been forwarded to Physician Desk: Dr. Aguilar. They are requesting additional information for pt O2 use. Pt currently follows with Pulmonary. In Pulm note pt had respiratory therapy with Ox w/ambulation. Dolly Acosta MA [facility]08-13-2024 Nurse Note* Dolly Acosta MA - 04/25/2024 4:50 PM EDT Rx's and OV note faxed to [employer] at [phone]. Dolly Acosta MA [facility]08-13-2024 Nurse Note* Dolly Acosta MA - 04/25/2024 4:50 PM EDT Rx's and OV note faxed to [employer] at [phone]. Dolly Acosta MA documented in this encounterJoint [facility]08-[facility]-2024 History of Present illness Narrative* Teresa Aguilar MD - 04/25/2024 4:20 PM EDT Chief Complaint Patient presents with: Follow Up HPI [place] Ramsey is a 63 year old female who presents here today for a follow up. Pt scheduled today for a follow up for Oxygen use. COPD - Smoker, about 0.5 ppd. Uses O2 at 2 L continuously at home. Follows with [facility], mostrecently seen by them on 03/29/24. Was recently treated with Cefdinir and a Zpak for exacerbation ofCOPD and short term course of Prednisone. Receives supplies through [employer]. Pt reports that her portable O2 tank quit working around 9:00 am this morning and she's currently without oxygen. Denies sob, but she's struggling. Also needs a new order for a Nebulizer as well as hers blew up. Generally using her Nebulizer every 4 hours with Proventil solution, has been without her machine for 5 days. Denies checking her pulse ox at home. At recent Pulm visit on 03/29 her O2 sat on RA was 89%. With ambulation it dropped to 87%on testing 08/05. Pt on room air in office at rest is 93-94. Office has previously filled out disability forms for pt for [employer]. Past medical history, appointments, medications, allergies reviewed. Previous Medical History PAST MEDICAL HISTORY No date: Asthma No date: Bipolar I disorder, most recent episode (or current) unspecified No date: Blood dyscrasia No date: Chronic obstructive pulmonary disease (COPD) (HCC) No date: Dysthymic disorder Comment: Depression (non-psychotic) No date: Lumbago No date: Osteoarthritis No date: Pulmonary embolus (HCC) Comment: 25 years prior No date: Schizophrenia (HCC) Comment: follows with Dr Bill at [facility] No date: Snoring No date: Tobacco use disorder Comment: 1/2 ppd since age of 11 Previous Surgical History PAST SURGICAL HISTORY 1985: APPENDECTOMY 10/19/2018: COLONOSCOPY FLX DX W/COLLJ SPEC WHEN PFRMD Comment: Colonoscopy 11/21/2019: COLONOSCOPY FLX DX W/COLLJ SPEC WHEN PFRMD Comment: Colonoscopy 04/19/2012: COLSC FLX W/RMVL OF TUMOR POLYP LESION SNARE TQ Comment: 4 polyps - 3 yr follow up 04/19/2012: EGD TRANSORAL BIOPSY SINGLE/MULTIPLE Comment: gastritis 11/21/2019: ESOPHAGOGASTRODUODENOSCOPY TRANSORAL DIAGNOSTIC Comment: EGD 11/18/2016: EXC BREAST LES PREOP PLMT RAD MARKER OPEN 1 LES; Left Comment: Mild duct ectasia, benign microcalcifications 90s: HERNIA REPAIR HX Comment: Lt inguinal 12/19/2018: LAPAROSCOPY COLECTOMY PARTIAL W/ANASTOMOSIS Comment: laparscopic right hemicolectomy 1982: LAPAROSCOPY SURG CHOLECYSTECTOMY Comment: Cholecystectomy, lap No date: LAPS ABD PRTM&OMENTUM DX W/WO SPEC BR/WA SPX Comment: Laparoscopy 10/27/2010: PAST SURGICAL HISTORY OF Comment: L5-S1 Microdisckectomy 11/18/2016: PAST SURGICAL HISTORY OF; Left Comment: breast bx-Dr. Wise 11/27/2020: SURGICAL ARTHROSCOPY FAM W/CORACOACRM LIGM RLS; Right Comment: Right shoulder arthroscopy, glenohumeral chondroplasty, biceps tenotomy, SAD 1982: TOTAL ABDOMINAL HYSTERECT W/WO RMVL TUBE OVARY Comment: Hysterectomy, VALDEMAR Family History FAMILY HISTORY Problem Relation Age of Onset Blood Disease Mother Diabetes Mother Colon Cancer Mother Breast Cancer Mother other (Bleeding disorder) Mother Cancer Father prostate Prostate Cancer Father Diabetes Sister Heart disease Sister other (HTN) Sister Stroke Sister other (Same issues as other sister) Sister Cervical Cancer Maternal Aunt Breast Cancer Other cousin Patient Allergies ALLERGIES Allergen Reactions Demoral [Meperidine] Rash Desyrel [Trazodone * Rash Doxycycline Hives Erythromycin Rash Levaquin [Levofloxa* Rash Morphine Swelling Prednisone Rash Current Medications Current Outpatient Medications on File Prior to Visit Medication Sig cyclobenzaprine (FLEXERIL) 10 mg tablet Take 1 tablet by mouth three times a day. cholecalciferol, Vitamin D3, (VITAMIN D3) 1,250 mcg (50,000 unit) cap capsule Take 1 capsule by mouth one time a week. meclizine (ANTIVERT) 25 mg tab Take 1 tablet by mouth every 6 hours as needed (dizziness). ondansetron (ZOFRAN) 4 mg tablet Take 1 tablet by mouth every 8 hours as needed for up to [address] (PROTONIX) 20 mg tablet Take 1 tablet by mouth daily before breakfast. Take on empty stomach, 1/2 hr before meal. predniSONE (DELTASONE) 20 mg tablet Take 2 tablets by mouth once daily. meloxicam (MOBIC) 7.5 mg tablet Take 1 tablet by mouth once daily. cefdinir (OMNICEF) 300 mg capsule Take 1 capsule by mouth two times a day. fluticasone-salmeterol (ADVAIR DISKUS) 250-50 mcg/dose inhaler inhale 1 puff by mouth and INTO THE LUNGS twice a day Rinse mouth after use tiotropium bromide (SPIRIVA RESPIMAT) 2.5 mcg/actuation inhaler Inhale 2 Puffs as instructed once daily. melatonin 10 mg tab Take 1 tablet by mouth at bedtime as needed. QUEtiapine (SEROQUEL) 400 mg tablet take 2 tablets by mouth once daily at bedtime OXYGEN, HOME THERAPY, 2 L/min by Nasal Cannula route continuous. albuterol (PROVENTIL) 2.5 mg /3 mL (0.083 %) nebulizer solution Use 3 mL via nebulizer every 4 hours as needed for wheezing/shortness of breath. Use over 5-15minutes. mineral oil/hydrophil petrolatum (AQUAPHOR) oint Apply to affected area as needed. Apply liberally to area three times a day. lamoTRIgine (LAMICTAL) 150 mg tablet Take 1 tablet by mouth three times daily as needed. albuterol HFA (PROVENTIL HFA, VENTOLIN HFA) 90 mcg/actuation inhaler Inhale 2 Puffs as instructed every 4 hours as needed for Wheezing/Shortness of Breath. prazosin (MINIPRESS) 2 mg cap Take 2 mg by mouth daily at bedtime. sertraline (ZOLOFT) 50 mg tablet Take 50 mg by mouth once daily. benztropine (COGENTIN) 1 mg tablet Take 1 mg by mouth twice daily. No current facility-administered medications on file prior to visit. Social History Social History Tobacco Use Smoking status: Every Day Packs/day: 0.50 Years: 52.00 Additional pack years: 0.00 Total pack years: 26.00 Types: Cigarettes Start date: 10/02/1972 Passive exposure: Past Smokeless tobacco: Never Tobacco comments: start age 11, average of 1.5 PPD since, currently smoking 0.5 PPD Vaping Use Vaping Use: Never used Substance Use Topics Alcohol use: No Drug use: No EXAM: BP 112/74 (BP Site: Left Arm, BP Position: Sitting, BP Cuff Size: Regular Adult) Pulse 96 Resp 20 Wt 52.3 kg (115 lb 4.8 oz) SpO2 93% BMI 18.06 kg/m General Appearance: Well appearing, alert, in no acute distress, well-hydrated, well nourished.. Lungs: decreased breath sounds, mild diffuse rhonchi. Heart: RRR without murmur, gallop, or rubs. No ectopy. Health Maintenance List Depression Screening Never done Anxiety Screening Never done Pneumococcal Vaccine(2 of 2 - PCV) due on 09/17/2006 RSV Vaccine(1 - 1-dose 60+ series) Never done Colorectal Cancer Screening due on 11/20/2022 Lipid Screening due on 12/10/2022 Mammogram Screening due on 05/20/2023 Shingrix Vaccine(2 of 2) due on 03/06/2024 Influenza Vaccine(1) due on 05/14/2024 Annual PCP Team Chronic Disease Visit due on 11/30/2024 Lung Cancer Screening due on 02/20/2025 BP Controlled (<130/80) due on 03/29/2025 DTaP,Tdap,Td Vaccine(3 - Td or Tdap) due on 03/23/2026 Diabetes Screening due on 07/21/2026 Alpha-1 Antitrypsin Deficiency Screening Completed Spirometry Completed Hepatitis C Screening Completed HIV Screening Completed Covid-19 Vaccine Completed Cervical Cancer Screening Discontinued Data reviewed ASSESSMENT/PLAN: 1. COPD, severe (HCC) - ICD9: 496, ICD10: J44.9 (primary diagnosis) - NEBULIZER 2. Oxygen dependent - ICD9: V46.2, ICD10: Z99.81 - OXYGEN (HOME THERAPY) 3. Asthma, unspecified asthma severity, unspecified whether complicated, unspecified whether persistent - ICD9: 493.90, ICD10: J45.909 - NEBULIZER Follow up prn Medical Decision Making: Problems: Low: Stable chronic illness Risk: Moderate: Drug management Medical Decision Making Level: 3 - Low Teresa Aguilar MD documented in this encounterJoint [facility] NoteHNO ID: [id number] Author: TERESA AGUILAR MD Service: ? Author Type: Physician Type: Progress Notes Filed: 04/25/2024 16:48 Note Text: Chief Complaint Patient presents with: Follow Up HPI Albania Ramsey is a 63 year old female who presents here today for a follow up. Pt scheduled today for a follow up for Oxygen use. COPD - Smoker, about 0.5 ppd. Uses O2 at 2 L continuously at home. Follows with [facility], most recently seen by them on 03/29/24. Was recently treated with Cefdinir and a Zpak for exacerbation of COPD and short term course of Prednisone. Receives supplies through [employer]. Pt reports that her portable O2 tank quit working around 9:00 am this morning and she's currently without oxygen. Denies sob, but she's struggling. Also needs a new order for a Nebulizer as well as hers blew up. Generally using her Nebulizer every 4 hours with Proventil solution, has been without her machine for 5 days. Denies checking her pulse ox at home. At recent Pulm visit on 03/29 her O2 sat on RA was 89%. With ambulation it dropped to 87% on testing 08/05. Pt on room air in office at rest is 93-94. Office has previously filled out disability forms for pt for [employer]. Past medical history, appointments, medications, allergies reviewed. Previous Medical History PAST MEDICAL HISTORY No date: Asthma No date: Bipolar I disorder, most recent episode (or current) unspecified No date: Blood dyscrasia No date: Chronic obstructive pulmonary disease (COPD) (HCC) No date: Dysthymic disorder Comment: Depression (non-psychotic) No date: Lumbago No date: Osteoarthritis No date: Pulmonary embolus (HCC) Comment: 25 years prior No date: Schizophrenia (HCC) Comment: follows with Dr Bill at [facility] No date: Snoring No date: Tobacco use disorder Comment: 1/2 ppd since age of 11 Previous Surgical History PAST SURGICAL HISTORY 1985: APPENDECTOMY 10/19/2018: COLONOSCOPY FLX DX W/COLLJ SPEC WHEN PFRMD Comment: Colonoscopy 11/21/2019: COLONOSCOPY FLX DX W/COLLJ SPEC WHEN PFRMD Comment: Colonoscopy 04/19/2012: COLSC FLX W/RMVL OF TUMOR POLYP LESION SNARE TQ Comment: 4 polyps - 3 yr follow up 04/19/2012: EGD TRANSORAL BIOPSY SINGLE/MULTIPLE Comment: gastritis 11/21/2019: ESOPHAGOGASTRODUODENOSCOPY TRANSORAL DIAGNOSTIC Comment: EGD 11/18/2016: EXC BREAST LES PREOP PLMT RAD MARKER OPEN 1 LES; Left Comment: Mild duct ectasia, benign microcalcifications 90s: HERNIA REPAIR HX Comment: Lt inguinal 12/19/2018: LAPAROSCOPY COLECTOMY PARTIAL W/ANASTOMOSIS Comment: laparscopic right hemicolectomy 1982: LAPAROSCOPY SURG CHOLECYSTECTOMY Comment: Cholecystectomy, lap No date: LAPS ABD PRTMANDOMENTUM DX W/WO SPEC BR/WA SPX Comment: Laparoscopy 10/27/2010: PAST SURGICAL HISTORY OF Comment: L5-S1 Microdisckectomy 11/18/2016: PAST SURGICAL HISTORY OF; Left Comment: breast bx-Dr. Wise 11/27/2020: SURGICAL ARTHROSCOPY FAM W/CORACOACRM LIGM RLS; Right Comment: Right shoulder arthroscopy, glenohumeral chondroplasty, biceps tenotomy, SAD 1982: TOTAL ABDOMINAL HYSTERECT W/WO RMVL TUBE OVARY Comment: Hysterectomy, VALDEMAR Family History FAMILY HISTORY Problem Relation Age of Onset Blood Disease Mother Diabetes Mother Colon Cancer Mother Breast Cancer Mother other (Bleeding disorder) Mother Cancer Father prostate Prostate Cancer Father Diabetes Sister Heart disease Sister other (HTN) Sister Stroke Sister other (Same issues as other sister) Sister Cervical Cancer Maternal Aunt Breast Cancer Other cousin Patient Allergies ALLERGIES Allergen Reactions Demoral [Meperidine] Rash Desyrel [Trazodone * Rash Doxycycline Hives Erythromycin Rash Levaquin [Levofloxa* Rash Morphine Swelling Prednisone Rash Current Medications Current Outpatient Medications on File Prior to Visit Medication Sig cyclobenzaprine (FLEXERIL) 10 mg tablet Take 1 tablet by mouth three times a day. cholecalciferol, Vitamin D3, (VITAMIN D3) 1,250 mcg (50,000 unit) cap capsule Take 1 capsule by mouth one time a week. meclizine (ANTIVERT) 25 mg tab Take 1 tablet by mouth every 6 hours as needed (dizziness). ondansetron (ZOFRAN) 4 mg tablet Take 1 tablet by mouth every 8 hours as needed for up to [address] (PROTONIX) 20 mg tablet Take 1 tablet by mouth daily before breakfast. Take on empty stomach, 1/2 hr before meal. predniSONE (DELTASONE) 20 mg tablet Take 2 tablets by mouth once daily. meloxicam (MOBIC) 7.5 mg tablet Take 1 tablet by mouth once daily. cefdinir (OMNICEF) 300 mg capsule Take 1 capsule by mouth two times a day. fluticasone-salmeterol (ADVAIR DISKUS) 250-50 mcg/dose inhaler inhale 1 puff by mouth and INTO THE LUNGS twice a day Rinse mouth after use tiotropium bromide (SPIRIVA RESPIMAT) 2.5 mcg/actuation inhaler Inhale 2 Puffs as instructed once daily. melatonin 10 mg tab Take 1 tablet by mouth at bed (more content not included)... [facility]08-06-2024 Telephone encounter Note* Telephone Encounter - Miriam Arciniega LPN - 04/18/2024 3:52 PM EDT Doc with [facility] called and he is putting together packs for pt and requested a copy of pt's med list. FAX: [phone] Done Miriam Arciniega LPN [facility]08-06-2024 Miscellaneous Notes* Telephone Encounter - Miriam Arciniega LPN - 04/18/2024 3:52 PM EDT Doc with [facility] called and he is putting together packs for pt and requested a copy of pt's med list. FAX: [phone] Done Miriam Arciniega LPN documented in this encounterJoint [facility]08-[facility]24 Telephone encounter Note * Telephone Encounter - Teresa Aguilar MD - 04/18/2024 10:44 AM EDT OK to refill as ordered Teresa Aguilar MD [facility]08-06-2024 Miscellaneous Notes* Telephone Encounter - Teresa Aguilar MD - 04/18/2024 10:44 AM EDT OK to refill as ordered Teresa Aguilar MD * Telephone Encounter - Machelle Colon RN - 04/18/2024 10:17 AM EDT The patient has been identified by name and date of : Yes Caregiver verified no other encounters exist for this prescription request: Yes Caregiver confirmed with patient/requestor that no other refills are due, in the near future, with this provider at this time: Yes The last office visit in the department: 12/01/2023 Does the patient have a future office visit with this provider/department: Yes 04/22/2024 Requested Prescriptions Pending Prescriptions Disp Refills cyclobenzaprine (FLEXERIL) 10 mg tablet 42 tablet 0 Sig: Take 1 tablet by mouth three times a day. cholecalciferol, Vitamin D3, (VITAMIN D3) 1,250 mcg (50,000 unit) cap capsule 4 capsule 11 Sig: Take 1 capsule by mouth one time a week. meclizine (ANTIVERT) 25 mg tab 40 tablet 5 Sig: Take 1 tablet by mouth every 6 hours as needed (dizziness). ondansetron (ZOFRAN) 4 mg tablet 10 tablet 0 Sig: Take 1 tablet by mouth every 8 hours as needed for up to [address] (PROTONIX) 20 mg tablet 30 tablet 11 Sig: Take 1 tablet by mouth daily before breakfast. Take on empty stomach, 1/2 hr before meal. Verified with patient that she is switching to [facility] for the monthly pill packs. Faxed medication list. Pended meds ordered by PCP that need refills. Machelle Colon RN April 18, 2024 10:22 AM documented in this encounterJoint [facility]08-06-2024 Telephone encounter Note * Telephone Encounter - Machelle Colon RN - 04/18/2024 10:17 AM EDT The patient has been identified by name and date of : Yes Caregiver verified no other encounters exist for this prescription request: Yes Caregiver confirmed with patient/requestor that no other refills are due, in the near future, with this provider at this time: Yes The last office visit in the department: 12/01/2023 Does the patient have a future office visit with this provider/department: Yes 04/22/2024 Requested Prescriptions Pending Prescriptions Disp Refills cyclobenzaprine (FLEXERIL) 10 mg tablet 42 tablet 0 Sig: Take 1 tablet by mouth three times a day. cholecalciferol, Vitamin D3, (VITAMIN D3) 1,250 mcg (50,000 unit) cap capsule 4 capsule 11 Sig: Take 1 capsule by mouth one time a week. meclizine (ANTIVERT) 25 mg tab 40 tablet 5 Sig: Take 1 tablet by mouth every 6 hours as needed (dizziness). ondansetron (ZOFRAN) 4 mg tablet 10 tablet 0 Sig: Take 1 tablet by mouth every 8 hours as needed for up to [address] (PROTONIX) 20 mg tablet 30 tablet 11 Sig: Take 1 tablet by mouth daily before breakfast. Take on empty stomach, 1/2 hr before meal. Verified with patient that she is switching to [facility] for the monthly pill packs. Faxed medication list. Pended meds ordered by PCP that need refills. Machelle Colon RN April 18, 2024 10:22 AM [facility]08-01-[facility] Telephone encounter Note* Telephone Encounter - Kiley Harris APRN.NEAL - 04/13/2024 3:22 PM EDT Phone call to patient for update. She has completed the cefdinir and she is still coughing up yellow sputum. It got somewhat better, but is not gone. Kiley Harris APRN.CNP [facility]08-01-2024 Miscellaneous Notes* Telephone Encounter - Kiley Harris APRN.CNP - 04/13/2024 3:22 PM EDT Phone call to patient for update. She has completed the cefdinir and she is still coughing up yellow sputum. It got somewhat better, but is not gone. Kiley Harris APRN.CNP documented in this encounterJoint [facility]07-23-2024 History of Present illness Narrative* Geovanna Barnes RT(R) - 04/04/2024 2:00 PM EDT Radiology Service Progress Note PATIENT NAME: Albania Ramsey DATE OF SERVICE: April 04, 2024 TIME: 3:27 PM PATIENT IDENTITY VERIFICATION COMPLETED USING TWO (2) IDENTIFIERS: Name and Date of confirmedby patient verbally. FALL SCREENING: Has the patient had 2 falls in the last year or 1 fall with injury or currently using an Ambulatory Assistive Device (Walker, Cane, Wheelchair, Crutches, etc.)? No PATIENT GENDER DATA: Female. status: : No status: NO. PATIENT RELEVANT IMPLANT DATA REVIEWED: Not Applicable PATIENT PRESENTS WITH AN IMPLANTABLE OR ATTACHED BUILDING CONSTRUCTION ENGINEER: No RADIOLOGY DEPARTMENT: General X-ray: Exam(s) Completed: ASPIRATION right shoulder PERIPHERAL IV DATA: Not applicable SIGNED BY: RT Steffi(Goran) April 04, 2024 3:27 PM documented in this encounterJoint [facility]07-23-2024 NoteHNO ID: [id number] Author: GEOVANNA BARNES RT(R) Service: Radiology Author Type: Technologist Type: Progress Notes Filed: 04/04/2024 15:28 Note Text: Radiology Service Progress Note PATIENT NAME: Albania Ramsey DATE OF SERVICE: April 04, 2024 TIME: 3:27 PM PATIENT IDENTITY VERIFICATION COMPLETED USING TWO (2) IDENTIFIERS: Name and Date of confirmed by patient verbally. FALL SCREENING: Has the patient had 2 falls in the last year or 1 fall with injury or currently using an Ambulatory Assistive Device (Walker, Cane, Wheelchair, Crutches, etc.)? No PATIENT GENDER DATA: Female. status: : No status: NO. PATIENT RELEVANT IMPLANT DATA REVIEWED: Not Applicable PATIENT PRESENTS WITH AN IMPLANTABLE OR ATTACHED BUILDING CONSTRUCTION ENGINEER: No RADIOLOGY DEPARTMENT: General X-ray: Exam(s) Completed: ASPIRATION right shoulder PERIPHERAL IV DATA: Not applicable SIGNED BY: RT Steffi(R) April 04, 2024 3:27 PMTrumbull Memorial [id number] Instructions* Patient Instructions* Aysha Lloyd APRN.CNP - 03/29/2024 3:43 PM EDT Start Prednisone, 40 mg once a day for 5 days. Finish Antibiotics. Continue working to quit smoking. We are currently waiting for lab results from your previous sputum culture. Follow-up in 1 month. Please call within the next week if you don't hear from our office regarding an appointment. documented in this encounterJoint [facility]07-17-2024 History of Present illness Narrative* Aysha Lloyd APRN.CNP - 03/29/2024 3:00 PM EDT Images from the original note were not included. Pulmonary Medicine Patients name: Albania Ramsey PCP: Teresa Aguilar MD CC: follow-up COPD HPI: Albania Ramsey is a 63 year old female current 1/2 ppd smoker, former 2 ppd smoker with PMH significant for asthma/COPD, bipolar disorder, schizophrenia, COVID/PNA November 2022 and history of PE. She has a long history of nocturnal oxygen use but also qualified for continuous O2 in July 2023. Current therapy consists of Advair, Spiriva and PRN Albuterol. Since her last visit, she was treated in November by her PCP for COPD exacerbation. Chest xray showed b/l lobe pneumonia and was treated with Azithromycin and Prednisone. In February, she had a sputum culture which grew mixed gram negative bacilli and was started on Levaquin. After 1 dose, she noted hivesand it was stopped. Switched to Cefdinir which she has tolerated well. Has 2 more days on the ATB. She notes symptoms have improved but are not gone. Today, patient reports daily cough with yellow sputum (less sputum since being on ATB). No hemoptysis. Daily wheezing. Dysnpea on exertion with daily activities (same as 6 months ago). Rare dyspnea at rest. No fevers, chills, or night sweats. No unintended weight loss. No recent hospitalizations orED visits or upper respiratory infections. Currently using Albuterol 3-4 times a day over the last month. Smoking 1/2 ppd and wishes to quit. Currently using resources from [id number]. DME: [employer] Current wearing 2L supplemental oxygen with exertion and at nighttime PAST MEDICAL HISTORY Diagnosis Date Asthma Bipolar I disorder, most recent episode (or current) unspecified Blood dyscrasia Chronic obstructive pulmonary disease (COPD) (HCC) Dysthymic disorder Depression (non-psychotic) Lumbago Osteoarthritis Pulmonary embolus (HCC) 25 years prior Schizophrenia (HCC) follows with Dr Bill at [facility] Snoring Tobacco use disorder 1/2 ppd since age of 11 Allergies: Demoral [Meperidine] Rash Desyrel [Trazodone * Rash Doxycycline Hives Erythromycin Rash Morphine Swelling Prednisone Rash Medication List Accurate as of March 29, 2024 12:43 PM. If you have any questions, ask your nurse or doctor. CONTINUE taking these medications ADVAIR DISKUS 250-50 mcg/dose inhaler Generic drug: fluticasone-salmeterol inhale 1 puff by mouth and INTO THE LUNGS twice a day Rinse mouth after use * albuterol HFA 90 mcg/actuation inhaler Commonly known as: PROVENTIL HFA, VENTOLIN HFA Inhale 2 Puffs as instructed every 4 hours as needed for Wheezing/Shortness of Breath. * albuterol 2.5 mg /3 mL (0.083 %) nebulizer solution Commonly known as: PROVENTIL Use 3 mL via nebulizer every 4 hours as needed for wheezing/shortness of breath. Use over 5-15minutes. benztropine 1 mg tablet Commonly known as: COGENTIN cefdinir 300 mg capsule Commonly known as: OMNICEF Take 1 capsule by mouth two times a day. cholecalciferol (Vitamin D3) 1,250 mcg (50,000 unit) Cap capsule Commonly known as: VITAMIN D3 Take 1 capsule by mouth one time a week. cyclobenzaprine 10 mg tablet Commonly known as: FLEXERIL Take 1 tablet by mouth three times a day. lamoTRIgine 150 mg tablet Commonly known as: LaMICtal Take 1 tablet by mouth three times daily as needed. meclizine 25 mg Tab Commonly known as: ANTIVERT Take 1 tablet by mouth every 6 hours as needed (dizziness). melatonin 10 mg Tab meloxicam 7.5 mg tablet Commonly known as: MOBIC Take 1 tablet by mouth once daily. mineral oil/hydrophil petrolatum Oint Commonly known as: AQUAPHOR Apply to affected area as needed. Apply liberally to area three times a day. ondansetron 4 mg tablet Commonly known as: ZOFRAN Take 1 tablet by mouth every 8 hours as needed for up to 10 doses. OXYGEN (HOME THERAPY) 2 L/min by Nasal Cannula route continuous. pantoprazole DR 20 mg tablet Commonly known as: PROTONIX Take 1 tablet by mouth daily before breakfast. Take on empty stomach, 1/2 hr before meal. prazosin 2 mg Cap Commonly known as: MINIPRESS QUEtiapine 400 mg tablet Commonly known as: SEROquel sertraline 50 mg tablet Commonly known as: ZOLOFT SPIRIVA RESPIMAT 2.5 mcg/actuation inhaler Generic drug: tiotropium bromide Inhale 2 Puffs as instructed once daily. traMADol 50 mg tablet Commonly known as: ULTRAM Take 1 tablet by mouth two times a day for 7 days. * This list has 2 medication(s) that are the same as other medications prescribed for you. Read thedirections carefully, and ask your doctor or other care provider to review them with you. DATA: I personally reviewed and analyzed all labs, radiographs and available pulmonary function testing PFT: 07/2023 Spirometry indicates moderately severe obstruction. The increase in FEF 25-75 post-bronchodilator reflects an improvement in the small airway obstruction. The RV and RV/TLC are elevated indicating air trapping. The diffusing capacity is mildly reduced. Oximetry with ambulation CXR: Last XR Chest - Impression Only XR CHEST 2V FRONTAL/LAT Exam End: 12/01/2023 9:15 AM (Final result) Impression: IMPRESSION: Hazy opacities overlying the bilateral lower lungs, likely representing pneumonia/aspiration. Please clinically correlate. ... CT Chest: 02/21/2024 IMPRESSION: 1. There are new clustered nodules in a tree-in-bud distribution in the medial left upper lobe. There are persistent clustered nodules in the right lower lobe. These are most likely infectious/inflammatory. 2. Stable appearance of several scattered subcentimeter pulmonary nodules. 3. Centrilobular emphysema. Bilateral bronchial wall thickening. Retained secretions in the left mainstem bronchus. 4. Age-indeterminate compression deformity of the vertebral body of L2 Rubberizing Mechanic: PSCEbenezer Transcribe Date/Time: Feb 25 2024 12:18P Dictated by : MILLY RUSSELL MD This examination was interpreted and the report reviewed and electronically signed by: MILLY RUSSELL MD on Feb 25 2024 12:33PM EST Results-Findings * * *Final Report* * * DATE OF EXAM: Feb 21 2024 8:48AM [facility] 0541 - CT CHEST WO IVCON / PROCEDURE REASON: Lung nodules * * * * Physician Interpretation * * * * EXAMINATION: CHEST CT WITHOUT CONTRAST CLINICAL HISTORY: Lung nodules Technique: Spiral CT acquisition of the chest from the thoracic inlet to the upper abdomen without contrast. MQ: [id number] CT Radiation dose: Integrated Dose-length product (DLP) for this visit = 117 mGy*cm CT Dose Reduction Employed: Automated exposure control(AEC) and iterative recon Comparison: CT chest 09/15/2023 RESULT: Limitations: The right upper lung is partially obscured by artifact from a right shoulder prosthesis. Lines, tubes, and devices: None. Lung parenchyma and airways: Persistent clustered nodules in a tree-in-bud distribution in the right lower lobe. There are some new clustered nodules in a tree-in-bud distribution in the medial left upper lobe. Stable 4 mm nodule in the posterior right upper lobe (7:29). Stable 5 mm nodule lateral right lower lobe (7:120). Stable 4 mm subpleural nodule medial left lower lobe (7:52). Mild centrilobular emphysema. No consolidation. Bilateral bronchial wall thickening. Retained secretions in the left mainstem bronchus. Central airways are patent. Pleural space: No pleural effusion. No pleural thickening. Lower neck, lymph nodes, and mediastinum: The imaged thyroid gland is normal. No lymphadenopathy in the supraclavicular, axillary, mediastinal, or hilar regions. Heart, pericardium, and thoracic vessels: The thoracic aorta and main pulmonary artery are normal in caliber. Atherosclerotic calcifications of the thoracic aorta. The cardiac chambers are normal in size. Mild coronary artery atherosclerotic calcifications are noted, although the study is not optimized for coronary assessment. No pericardial effusion or thickening. Bones and soft tissues: No destructive bone lesion. Degenerative disease of the thoracic spine. Age-indeterminate compression deformity of the vertebral body of L2. Chest wall is unremarkable. Upper abdomen: No abnormality in the imaged upper abdomen. Localizer images: No additional findings. IMMUNIZATIONS Prevnar - xx Pneumovax - 2005 Influenza - 08/02/2023 COVID-19 - most recent 08/2021 RSV- xx Review of Systems Constitutional: Positive for fatigue. Negative for activity change, appetite change and unexpected weight change. HENT: Positive for postnasal drip, rhinorrhea and sinus pressure. Negative for mouth sores. Respiratory: Positive for cough, shortness of breath and wheezing. Cardiovascular: Negative for chest pain, palpitations and leg swelling. Allergic/Immunologic: Negative for environmental allergies. Neurological: Negative for weakness. BP 96/72 Pulse 103 Wt 51 kg (112 lb 6.4 oz) SpO2 89% BMI 17.60 kg/m Physical Exam Vitals reviewed. Constitutional: General: She is not in acute distress. Appearance: Normal appearance. She is not ill-appearing. HENT: Head: Normocephalic. Nose: No rhinorrhea. Mouth/Throat: Mouth: Mucous membranes are moist. Pharynx: No oropharyngeal exudate. Cardiovascular: Rate and Rhythm: Normal rate and regular rhythm. Heart sounds: Normal heart sounds. Pulmonary: Effort: Pulmonary effort is normal. Breath sounds: Wheezing present. Comments: Course breath sounds with wheezes throughout Musculoskeletal: Right lower leg: No edema. Left lower leg: No edema. Skin: General: Skin is warm and dry. Capillary Refill: Capillary refill takes less than 2 seconds. Neurological: General: No focal deficit present. Mental Status: She is alert. ASSESSMENT/PLAN: 1. COPD, severe (HCC) - ICD9: 496, ICD10: J44.9 (primary diagnosis) 2. Acute exacerbation of chronic obstructive pulmonary disease (COPD) (HCC) - ICD9: 491.21, ICD10: J44.1 - patient on triple therapy with Advair and Spiriva, continue - Albuterol PRN every 4 hours - currently finishing course of Cefdinir for positive sputum culture with continued c/o productive cough/SOB. - Prednisone burst for wheezing - will follow-up on AFB results - consider bronchoscopy if symptoms persist 3. Chronic hypoxemic respiratory failure (HCC) - ICD9: 518.83, 799.02, ICD10: J96.11 - patient continues to benefit from 2L continuous supplemental oxygen 4. Multiple lung nodules - ICD9: 793.19, ICD10: R91.8 - currently following with [facility] - most recent chest CT with several stable subcentimeter nodules 5. Current smoker - ICD9: 305.1, ICD10: F17.200 - Cessation highly encouraged. - Physiologic and physical aspects of tobacco addiction as well as strategies for quitting were discussed. - Counseling was given focusing on the harmful effects of this addiction especially given the patient's medical condition(s) which will be worsened because of the chemicals in tobacco. - Continue with recommendations from 1-800-QUIT NOW F/u 1 month Portions of this documentation were copied and pasted from previous office visit notes in order to provide a cohesive continuity of the history. The note has been reviewed and edited and updated as necessary. Aysha Lloyd, TEACHER TUTOR.CLINICAL WRITER Associated attestation - Betzy Alejandro PA-C - 03/29/2024 4:19 PM EDT I have personally performed a face to face assessment of the patient and have reviewed the LEONARDA note. My vera findings include: Exam is as documented. Assessment/Plan discussed and noted below. Other additions or changes: As edited Signature: Betzy Alejandro Date: 03/29/2024 Time: 4:18 PM documented in this encounterJoint [facility] Telephone encounter Note * Telephone Encounter - Peg Mays RN - 03/27/2024 2:29 PM EDT Images from the original note were not included. Kimberlee Kennedy PA-C You31 minutes ago (1:57 PM) AC I sent in Meloxicam to take daily and Tramadol to take sparingly. Please let the patient know. Kimberlee Kennedy PA-C Called patient and relayed above message. She verbalized understanding. [facility]07-15-2024 Miscellaneous Notes* Telephone Encounter - Peg Mays RN - 03/27/2024 2:29 PM EDT Images from the original note were not included. Kimberlee Kennedy PA-C You31 minutes ago (1:57 PM) AC I sent in Meloxicam to take daily and Tramadol to take sparingly. Please let the patient know. Kimberlee Kennedy PA-C Called patient and relayed above message. She verbalized understanding. * Telephone Encounter - Peg Mays RN - 03/27/2024 10:31 AM EDT Pt calling RN line. She's asking what she can take for the pain in her shoulder. Please advise. documented in this encounterJoint [facility]07-[facility] Telephone encounter Note * Telephone Encounter - Peg Mays RN - 03/27/2024 10:31 AM EDT Pt calling RN line. She's asking what she can take for the pain in her shoulder. Please advise. [facility]07-08-20[facility] Note* Addendum Note - Kiley Harris APRN.CLINICAL WRITER - 03/20/2024 11:46 AM EDTAddended by: KILEY HARRIS on: 03/20/2024 11:46 AM Modules accepted: Orders [facility]07-08-2024 Miscellaneous Notes* Addendum Note - Kiley Harris APRN.CNP - 03/20/2024 11:46 AM EDTAddended by: KILEY HARRIS on: 03/20/2024 11:46 AM Modules accepted: Orders * Telephone Encounter - Kiley Harris APRN.CNP - 03/20/2024 11:43 AM EDT Phone call to patient. She states she got hives after taking 1 dose of levaquin. Previously tolerated it well. Discussed case with DR. Sabi Loo. Recommend cefdinir 300 mg BID x 10 days. Rx sent to pharmacy. Kiley Harris APRN.CNP * Telephone Encounter - Belkis Garduno RN - 03/13/2024 3:52 PM EDT Pt called in reporting a reaction to the levoFLOXacin (LEVAQUIN) 750 mg tablet ordered on 03/07/2024. She reports hives on her face that started the day she started the medication. She reports that she has stopped taking the medication at this time. Please advise patient.Belkis Garduno RN documented in this encounterJoint [facility]07-[facility] Telephone encounter Note * Telephone Encounter - Kiley Harris APRN.CNP - 03/20/2024 11:43 AM EDT Phone call to patient. She states she got hives after taking 1 dose of levaquin. Previously tolerated it well. Discussed case with DR. Sabi Loo. Recommend cefdinir 300 mg BID x 10 days. Rx sent to pharmacy. Kiley Harris APRN.CLINICAL WRITER [facility]07-02-[facility] Telephone encounter Note* Telephone Encounter - Libby Mullins MA - 03/14/2024 11:24 AM EDT Called and spoke to patient, she would like to get the outstanding test done and come in to review all test results at one appt. Please schedule Thank you [facility]07-02-20[facility] Miscellaneous Notes* Telephone Encounter - Libby Mullins MA - 03/14/2024 11:24 AM EDT Called and spoke to patient, she would like to get the outstanding test done and come in to review all test results at one appt. Please schedule Thank you * Telephone Encounter - Libby Mullins MA - 03/14/2024 10:29 AM EDT Per provider patient needs to completed all test before coming in to review results Patient still needs schedule for: IMAGING GUIDED ASP/INJ SHOULDER JT/BURSA RIGHT and BODY FLUID CULTURE AND GRAM STAIN Please assist and gettting patient schedule for needed test Reschedule follow up appointment if needed Thank you * Telephone Encounter - Nicol Gibson - 03/14/2024 9:49 AM EDT Patient has been scheduled * Telephone Encounter - Jillian Keating RN - 03/14/2024 9:23 AM EDT She needs follow up with Dr. Jamison to review results and discuss next steps. Per AC Please call patient and help with an appt with Dr Jamison to go over results * Telephone Encounter - Jillian Keating RN - 03/14/2024 7:35 AM EDT Patient calling for results of her CT scan Please advise documented in this encounterJoint [facility]07-[facility]-2024 Telephone encounter Note * Telephone Encounter - Libby Mullins MA - 03/14/2024 10:29 AM EDT Per provider patient needs to completed all test before coming in to review results Patient still needs schedule for: IMAGING GUIDED ASP/INJ SHOULDER JT/BURSA RIGHT and BODY FLUID CULTURE AND GRAM STAIN Please assist and gettting patient schedule for needed test Reschedule follow up appointment if needed Thank you [facility] Telephone encounter Note* Telephone Encounter - Nicol Gibson - 03/14/2024 9:49 AM EDT Patient has been scheduled [facility] Telephone encounter Note* Telephone Encounter - Jillian Keating RN - 03/14/2024 9:23 AM EDT She needs follow up with Dr. Jamison to review results and discuss next steps. Per AC Please call patient and help with an appt with Dr Jamison to go over results [facility]07-[facility] Telephone encounter Note* Telephone Encounter - Jillian Keating RN - 03/14/2024 7:35 AM EDT Patient calling for results of her CT scan Please advise [facility]07-01-[facility] Telephone encounter Note* Telephone Encounter - Belkis Garduno RN - 03/13/2024 3:52 PM EDT Pt called in reporting a reaction to the levoFLOXacin (LEVAQUIN) 750 mg tablet ordered on 03/07/2024. She reports hives on her face that started the day she started the medication. She reports that she has stopped taking the medication at this time. Please advise patient.Belkis Garduno RN [facility]06-[facility] Telephone encounter Note* Telephone Encounter - Kiley Harris APRN.CNP - 03/06/2024 12:59 PM EDT Spoke with patient and the following results were discussed: Sputum culture Results Mixed Gram negative bacilli including Many Proteus mirabilis Abnormal Many Pseudomonas not aeruginosa Abnormal Many normal respiratory antony Abnormal Many Stenotrophomonas maltophilia Abnormal Reviewed case with Dr. Sabi Loo. Recommendations: Treat with levaquin Patient verbalized understanding of the results and had no other questions or concerns at this time. Kiley Harris APRN.CNP March 06, 2024 1:00 PM [facility] Miscellaneous Notes* Telephone Encounter - Kiley Harris APRN.CNP - 03/06/2024 12:59 PM EDT Spoke with patient and the following results were discussed: Sputum culture Results Mixed Gram negative bacilli including Many Proteus mirabilis Abnormal Many Pseudomonas not aeruginosa Abnormal Many normal respiratory antony Abnormal Many Stenotrophomonas maltophilia Abnormal Reviewed case with Dr. Sabi Loo. Recommendations: Treat with levaquin Patient verbalized understanding of the results and had no other questions or concerns at this time. Kiley Harris APRN.CNP March 06, 2024 1:00 PM documented in this encounterJoint [facility]06-19-2024 History of Present illness Narrative* Yahaira Verdin RT(R) - 03/01/2024 8:20 AM EDT Radiology Service Progress Note PATIENT NAME: Albania Ramsey DATE OF SERVICE: March 01, 2024 TIME: 4:14 PM PATIENT IDENTITY VERIFICATION COMPLETED USING TWO (2) IDENTIFIERS: Name and Date of confirmedby patient verbally. FALL SCREENING: Has the patient had 2 falls in the last year or 1 fall with injury or currently using an Ambulatory Assistive Device (Walker, Cane, Wheelchair, Crutches, etc.)? No PATIENT GENDER DATA: Female. status: : No status: NO. PATIENT RELEVANT IMPLANT DATA REVIEWED: Not Applicable PATIENT PRESENTS WITH AN IMPLANTABLE OR ATTACHED BUILDING CONSTRUCTION ENGINEER: No RADIOLOGY DEPARTMENT: CT; Exam(s) Completed: Upper extremity PERIPHERAL IV DATA: Not applicable SIGNED BY: RT Alicia(R) March 01, 2024 4:14 PM documented in this encounterJoint [facility]06-10-2024 History of Present illness Narrative* Kiley Harris APRN.CNP - 02/21/2024 9:00 AM EDT Chief Complaint: 3 months (overdue) follow-up from CT Chest scan dated 09/15/2023 for multiple pulmonary nodules. History of Present Illness: Albania Ramsey is a 63 year old female who is presenting today for pulmonary nodule follow-up. Pt presented for lung cancer screening shared decision making visit, and was found to have worsening shortness of breath, wheezing, and unintended/unexplained weight loss. Patient has a PMH significant for GERD, bipolar, HTN, COPD, chronic hypoxemic respiratory failure. Patient is a current smoker with a 78 pack year history. Currently still smoking 1/2 pack daily. Since the patient's last visit the patient she had right shoulder surgery. No recent respiratory infections/pneumonia. The patient does not require assistance with normal activities of daily living. Modified [employer] [place] Dyspnea Scale (MMRC) On level ground I walk slower than people of the same age because of breathlessness, or have to stop for breath when walking at my own pace 2 Patient has SOB with their daily activity. Wheezing, usually at night. Patient denies feeling of chest tightness/congestion in the chest. Patient does not have a new or concerning cough, and denies hemoptysis. Patient does have a chronic daily cough with yellow sputum. Patient has not completed sputum cultures. Denies regular or recent fevers/chills. Patient does not have any significant unintentional weight loss. Patient denies having any respiratory infections or COVID-19 in the past few months. Last 12 Encounter Wt Readings: Date: Wt: 02/21/2024 50.3 kg (111 lb) 12/01/2023 50.3 kg (111 lb) 10/11/2023 49.9 kg (110 lb) 08/02/2023 51.3 kg (113 lb) 08/02/2023 51.3 kg (113 lb) 07/21/2023 51.7 kg (114 lb) 06/18/2023 50.5 kg (111 lb 6.4 oz) 06/17/2023 51.3 kg (113 lb) 06/08/2023 50.8 kg (112 lb) 05/31/2023 51.7 kg (114 lb) 05/21/2023 51.9 kg (114 lb 6.4 oz) 05/12/2023 51.3 kg (113 lb) Past Medical History: PAST MEDICAL HISTORY Diagnosis Date Asthma Bipolar I disorder, most recent episode (or current) unspecified Blood dyscrasia Chronic obstructive pulmonary disease (COPD) (HCC) Dysthymic disorder Depression (non-psychotic) Lumbago Osteoarthritis Pulmonary embolus (HCC) 25 years prior Schizophrenia (HCC) follows with Dr Bill at [facility] Snoring Tobacco use disorder 1/2 ppd since age of 11 Surgical Hx: PAST SURGICAL HISTORY Procedure Laterality Date APPENDECTOMY 1985 COLONOSCOPY FLX DX W/COLLJ SPEC WHEN PFRMD 10/19/2018 Colonoscopy COLONOSCOPY FLX DX W/COLLJ SPEC WHEN PFRMD 11/21/2019 Colonoscopy COLSC FLX W/RMVL OF TUMOR POLYP LESION SNARE TQ 04/19/2012 4 polyps - 3 yr follow up EGD TRANSORAL BIOPSY SINGLE/MULTIPLE 04/19/2012 gastritis ESOPHAGOGASTRODUODENOSCOPY TRANSORAL DIAGNOSTIC 11/21/2019 EGD EXC BREAST LES PREOP PLMT RAD MARKER OPEN 1 LES Left 11/18/2016 Mild duct ectasia, benign microcalcifications HERNIA REPAIR HX 90s Lt inguinal LAPAROSCOPY COLECTOMY PARTIAL W/ANASTOMOSIS 12/19/2018 laparscopic right hemicolectomy LAPAROSCOPY SURG CHOLECYSTECTOMY 1982 Cholecystectomy, lap LAPS ABD PRTM&OMENTUM DX W/WO SPEC BR/WA SPX Laparoscopy PAST SURGICAL HISTORY OF 10/27/2010 L5-S1 Microdisckectomy PAST SURGICAL HISTORY OF Left 11/18/2016 breast bx-Dr. Wise SURGICAL ARTHROSCOPY FAM W/CORACOACRM LIGM RLS Right 11/27/2020 Right shoulder arthroscopy, glenohumeral chondroplasty, biceps tenotomy, SAD TOTAL ABDOMINAL HYSTERECT W/WO RMVL TUBE OVARY 1981 Hysterectomy, VALDEMAR Family Hx: FAMILY HISTORY Problem Relation Age of Onset Blood Disease Mother Diabetes Mother Colon Cancer Mother Breast Cancer Mother other (Bleeding disorder) Mother Cancer Father prostate Prostate Cancer Father Diabetes Sister Heart disease Sister other (HTN) Sister Stroke Sister other (Same issues as other sister) Sister Cervical Cancer Maternal Aunt Breast Cancer Other cousin Allergies: ALLERGIES Allergen Reactions Demoral [Meperidine] Rash Desyrel [Trazodone * Rash Doxycycline Hives Erythromycin Rash Morphine Swelling Prednisone Rash Social History Tobacco Use: .5 packs/day, for 34 years. Types: Cigarettes Review Of Systems: See HPI for ROS All of the remainder systems were reviewed and negative. PHYSICAL EXAMINATION: Wt 111 lb (50.3kg) BP (P) 100/60 Pulse (P) 89 Resp (P) 16 Wt 50.3 kg (111 lb) SpO2 (P) 93% BMI 17.39 kg/m General appearance: well appearing, in no acute distress, and alert Skin: skin color, texture, turgor normal, no rashes or lesions Nose/Sinuses: Negative Oropharynx: Lips, mucosa, and tongue normal, teeth and gums normal, oropharynx normal Neck: Supple, no adenopathy; thyroid symmetric, normal size, no bruits Respiratory: Positive findings: wheezing Cardiovascular: Negative. RRR without murmur, gallop, or rubs. No ectopy Musculoskeletal: Extremities normal. No deformities, edema, or skin discoloration. Neuro: Oriented X 3 Data Review I have visually reviewed imaging and testing below CT imaging done today was reviewed and analyzed independently by practitioner and awaiting radiology review. CT was compared to prior CT chest. Slice 120 New RLL nodule medial approximately 6.8 x 8.3 mm, with clustered tree in bud nodules. Pt has other RLL tree in bud opacities that are stable. DATE OF EXAM: Sep 15 2023 9:53AM [facility] 0541 - CT CHEST WO IVCON / Lung parenchyma and airways: There is emphysema with mild, diffuse bronchiectasis. There is an approximately 4 mm subpleural nodule seen within the posterior segment right upper lobe (series 5, image #26). Other subcentimeter pulmonary nodules are also seen. For example, there is an approximately 3 mm nodule seen within the posterior segment of the right upper lobe (series 5, image #80). There is an approximately 4 mm nodule seen within the right lower lobe (series 5 image #114). Other subcentimeter pulmonary nodules are also seen. For example, there is an approximately 5 mm subpleural nodule within the superior segment 8 left lower lobe (series 5, image #55). Tree-in-bud type pulmonary nodules in the right lower lobe may be infectious or inflammatory etiology; however, continued interval surveillance is recommended. Associated secretions within trachea and right mainstem bronchus. Consider aspiration. Prior PFTS: SPIROMETRY WITH DILATOR IF OBSTRUCTED ([id number]) - ordered on 08/02/23 No textual results for order. Assessment and Plan: 1. Pulmonary Nodule: Stable and new tree in bud opacities. Patient has yellow sputum. Recommend sputum culture and short term follow up. This recommendation is subject to change, pending final radiology report. The patient was counseled on the importance of adherence to annual LDCT lung cancer screening, impact of comorbidities and ability or willingness to undergo diagnosis and treatment. 2. Nicotine Dependence, Current: Smoking cessation encouraged. Offered patient assistance programs and treatment. Patient plans to continue smoking. She has used the 5-349-JIZZ-NOW line and plans to contact them again. 3. Peristent cough: sputum culture recommended. Pt was given specimen cups. Kiley Harris APRN.CNP February 21, 2024 8:06 AM I spent a total of 30 minutes on the date of the service which included preparing to see the patient, [id number] patient care, completing clinical documentation, performing a medically appropriate examination, counseling and educating the patient/family/caregiver, ordering medications, tests, or p rocedures, communicating with other HCPs (not separately reported), independently interpreting results (not separately reported), communicating results to the patient/family/caregiver, and care coordination (not separately reported). documented in this encounterJoint [facility]06-10-2024 History of Present illness Narrative* Yahaira Verdin RT(R) - 02/21/2024 8:40 AM EDT Radiology Service Progress Note PATIENT NAME: Albania Ramsey DATE OF SERVICE: February 21, 2024 TIME: 1:12 PM PATIENT IDENTITY VERIFICATION COMPLETED USING TWO (2) IDENTIFIERS: Name and Date of confirmedby patient verbally. FALL SCREENING: Has the patient had 2 falls in the last year or 1 fall with injury or currently using an Ambulatory Assistive Device (Walker, Cane, Wheelchair, Crutches, etc.)? No PATIENT GENDER DATA: Female. status: : No status: NO. PATIENT RELEVANT IMPLANT DATA REVIEWED: Yes PATIENT PRESENTS WITH AN IMPLANTABLE OR ATTACHED BUILDING CONSTRUCTION ENGINEER: No RADIOLOGY DEPARTMENT: CT; Exam(s) Completed: Chest PERIPHERAL IV DATA: Not applicable SIGNED BY: RT Alicia(R) February 21, 2024 1:12 PM documented in this encounterJoint Township District [facility]06-07-2024 Telephone encounter Note * Telephone Encounter - Nicol Gibson - 02/18/2024 11:44 AM EDT Prescription Refill Information The patient has been identified by name and date of : Yes Caregiver verified no other encounters exist for this prescription request: Yes Caregiver confirmed with patient/requestor that no other refills are due, in the near future, with this provider at this time: Yes The last office visit in the department: 02/18/2024 Does the patient have a future office visit with this provider/department: No Requested Prescriptions No prescriptions requested or ordered in this encounter Patient would like a refill on flexeril. Please send to pharmacy on file. Thank you Nicol Gibson February 18, 2024 11:46 AM [facility] Miscellaneous Notes* Telephone Encounter - Nicol Gibson - 02/18/2024 11:44 AM EDT Prescription Refill Information The patient has been identified by name and date of : Yes Caregiver verified no other encounters exist for this prescription request: Yes Caregiver confirmed with patient/requestor that no other refills are due, in the near future, with this provider at this time: Yes The last office visit in the department: 02/18/2024 Does the patient have a future office visit with this provider/department: No Requested Prescriptions No prescriptions requested or ordered in this encounter Patient would like a refill on flexeril. Please send to pharmacy on file. Thank you Nicol Gibson February 18, 2024 11:46 AM documented in this encounterJoint Township District [facility]06-07-2024 History of Present illness Narrative* Carolyn Jamison MD - 02/18/2024 8:49 AM EDT Images from the original note were not included. PAIN EVALUATION 02/18/2024 0834 Pain Level: 9 Pain Location: Shoulder-Right Description: Sharp;Burning heavy Frequency: Continuous Intervention/Comfort measure: Medication;Cold;Heat;Exercise tylenol Comments: PT currently @ [facility] in [place] Encounter Diagnosis ICD-10-CM 1. 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 Right shoulder pain, unspecified chronicity M25.511 [place] Chung Ramsey returns in follow-up regarding right shoulder pain status post right reverse total shoulder arthroplasty. Initially did well postop but had a fall in October and has had continuous pain in the shoulder since that time. Describes burning pain globally in the shoulder. Exam: I examined her shoulder today. There is significant difficulty with any lifting or rotating of the arm with severe pain with any passive or active elevation or rotation. There is no point tenderness around the scapular spine or acromion. IMAGING: Radiographs of the right shoulder personally reviewed today. Date of exam today. This is a 3-view shoulder exam, including AP, outlet, and axillary views. My interpretation of the examination: Stable RTSA without fracture or loosening PLAN: Today we discussed her ongoing difficulties with the shoulder. She is not making any improvements and I have ordered her several tests to rule out the possibility of broken or loose components as well as the possibility of deep infection. She will return to review the results with me. Carolyn Jamison MD Shoulder & Elbow Surgeon Department of Orthopaedic [facility] documented in this encounterJoint [facility] History of Present illness Narrative* Maia Evans Tech - 02/18/2024 8:30 AM EDT Radiology Service Progress Note PATIENT NAME: Albania Ramsey DATE OF SERVICE: February 18, 2024 TIME: 8:33 AM PATIENT IDENTITY VERIFICATION COMPLETED USING TWO (2) IDENTIFIERS: Name and Date of confirmedby patient verbally. FALL SCREENING: Has the patient had 2 falls in the last year or 1 fall with injury or currently using an Ambulatory Assistive Device (Walker, Cane, Wheelchair, Crutches, etc.)? No PATIENT GENDER DATA: Female. status: : No status: NO. PATIENT RELEVANT IMPLANT DATA REVIEWED: Not Applicable PATIENT PRESENTS WITH AN IMPLANTABLE OR ATTACHED BUILDING CONSTRUCTION ENGINEER: No RADIOLOGY DEPARTMENT: General X-ray: Exam(s) Completed: Upper Extremity X- Ray(s): Shoulder, TRUE AP/ AXILLARY / SUPRA OUTLET right PERIPHERAL IV DATA: Not applicable SIGNED BY: Kayla Verma February 18, 2024 8:33 AM documented in this encounterCleveland [id number] NoteHNO ID: [id number] Author: MAIA EVANS Tech Service: Radiology Author Type: Land Appraiser Type: Progress Notes Filed: 02/18/2024 08:33 Note Text: Radiology Service Progress Note PATIENT NAME: Albania Ramsey DATE OF SERVICE: February 18, 2024 TIME: 8:33 AM PATIENT IDENTITY VERIFICATION COMPLETED USING TWO (2) IDENTIFIERS: Name and Date of confirmed by patient verbally. FALL SCREENING: Has the patient had 2 falls in the last year or 1 fall with injury or currently using an Ambulatory Assistive Device (Walker, Cane, Wheelchair, Crutches, etc.)? No PATIENT GENDER DATA: Female. status: : No status: NO. PATIENT RELEVANT IMPLANT DATA REVIEWED: Not Applicable PATIENT PRESENTS WITH AN IMPLANTABLE OR ATTACHED BUILDING CONSTRUCTION ENGINEER: No RADIOLOGY DEPARTMENT: General X-ray: Exam(s) Completed: Upper Extremity X-Ray(s): Shoulder, TRUE AP / AXILLARY / SUPRA OUTLET right PERIPHERAL IV DATA: Not applicable SIGNED BY: Kayla Verma February 18, 2024 8:33 AMTrumbull Memorial [id number] Telephone encounter Note* Telephone Encounter - Teresa Aguilar MD - 01/27/2024 8:08 AM EDT OK to refill as ordered Teresa Aguilar MD [facility]05-16-[facility] Miscellaneous Notes* Telephone Encounter - Teresa Aguilar MD - 01/27/2024 8:08 AM EDT OK to refill as ordered Teresa Aguilar MD * Telephone Encounter - Brisa Clarke OCCA - 01/27/2024 7:59 AM EDT CHONG 12/01/2023 NOV not found * Telephone Encounter - Peace Herring - 01/26/2024 11:20 AM EDT Prescription Refill Information The patient has been identified by name and date of : Yes Caregiver verified no other encounters exist for this prescription request: Yes Caregiver confirmed with patient/requestor that no other refills are due, in the near future, with this provider at this time: Yes The last office visit in the department: 12/01/23 Does the patient have a future office visit with this provider/department: No Requested Prescriptions Pending Prescriptions Disp Refills meclizine (ANTIVERT) 25 mg tab 40 tablet 2 Sig: Take 1 tablet by mouth every 6 hours as needed (dizziness). Peace Tran [facility] January 26, 2024 11:20 AM documented in this encounterJoint [facility]05-16-2024 Telephone encounter Note * Telephone Encounter - Brisa Clarke OCCA - 01/27/2024 7:59 AM EDT CHONG 12/01/2023 NOV not found [facility]05-15-20[facility] Telephone encounter Note* Telephone Encounter - Peace Herring - 01/26/2024 11:20 AM EDT Prescription Refill Information The patient has been identified by name and date of : Yes Caregiver verified no other encounters exist for this prescription request: Yes Caregiver confirmed with patient/requestor that no other refills are due, in the near future, with this provider at this time: Yes The last office visit in the department: 12/01/23 Does the patient have a future office visit with this provider/department: No Requested Prescriptions Pending Prescriptions Disp Refills meclizine (ANTIVERT) 25 mg tab 40 tablet 2 Sig: Take 1 tablet by mouth every 6 hours as needed (dizziness). Peace Cintron January 26, 2024 11:20 AM [facility]05-[facility] Telephone encounter Note* Telephone Encounter - Gibson Nicol - 01/14/2024 11:27 AM EDT Patient has been rescheduled [facility]05-03-20[facility] Miscellaneous Notes* Telephone Encounter - Gibson Nicol - 01/14/2024 11:27 AM EDT Patient has been rescheduled * Telephone Encounter - Jillian Keating RN - 01/13/2024 1:48 PM EDT Patient calling She would like to cancel her appt tomorrow 5/3 She was asking what she could do for the pain Please call pt back and help with a new appt Advise she will need to be seen to address any recommendations for pain documented in this encounterJoint [facility]05-02-2024 Telephone encounter Note * Telephone Encounter - Jillian Keating RN - 01/13/2024 1:48 PM EDT Patient calling She would like to cancel her appt tomorrow 5/3 She was asking what she could do for the pain Please call pt back and help with a new appt Advise she will need to be seen to address any recommendations for pain [facility]05-[facility] History of Present illness Narrative* Nga Ferrer APRN.CNP - 01/12/2024 1:55 PM EDT Consult placed for general surgery, she may schedule any time. Nga Ferrer APRN.CNP * Lnenie Khan MA - 01/11/2024 4:19 PM EDT POPULATION HEALTH NAVIGATION OUTREACH Action/FYI Pt agreeable to do colonoscopy. Please place order. Last colonoscopy done in November 2019 with recommended repeat in 3 years. Reason for Outreach Care Gap/HCC or Scheduling Wellness Visits Care Gaps due: Colorectal Cancer Screening Patient Contacted: Spoke to patient/parent/or legal guardian Patient identified by name and : Yes Care Gap/HCC/Scheduling Wellness actions taken: Patient scheduled/pended labs: Colorectal Cancer Screening Navigation Signature: Lennie Khan MA January 11, 2024 4:20 PM documented in this encounterJoint [facility]04-18-2024 Miscellaneous Notes* Telephone Encounter - Jillian Keating RN - 12/30/2023 3:32 PM EDT Spoke with patient Very badly bruised on the top of her shoulder No fx or dislocation Fiorcet was given Patient has an appt January 13 * Telephone Encounter - Jillian Keating RN - 12/29/2023 8:55 AM EDT S/p reverse TSR 08/04/23 Spoke with patient Wednesday she fell, hit shoulder and neck on bed frame Bruised side of her arm Sharp pain from neck to elbow Ice and tylenol with no relief Decreased ROM She is unable to come for an appt at either location Pt lives in [place] and is just minutes form [facility] She will go to ED to get checked out and will call afterwards to let RN know what was done documented in this encounterJoint [facility] District [facility]04-18-2024 Hospital Discharge instructions Patient Education 12/30/2023 13:11:52 Shoulder Contusion Shoulder Contusion You have a shoulder injury called a contusion. This causes pain, swelling, and sometimes bruising on the skin. You don t have any broken bones. This injury will take from a few days to several weeks to heal, depending on how severe it is. Moderate to severe shoulder contusions are treated with a sling or shoulder immobilizer. Minor contusions can be treated without any special support. Home care Follow these tips when caring for yourself at home: If you were given a sling to use, leave it in place for the time advised by your healthcare provider. If you aren t sure how long to wear it, ask for advice. If the sling becomes loose, adjust it so that your forearm is level with the ground. Your shoulder should feel well supported. Put an ice pack on the injured area for 20 minutes every 1 to 2 hours the first day. You can make your own ice pack by putting ice cubes in a plastic bag. Wrap the bag in a thin towel. Continue with ice packs 3 to 4 times a day for the next 2 days. Then use the pack as needed to ease pain and swelling. You may use acetaminophen or ibuprofen to control pain, unless another pain medicine was prescribed. If you have chronic liver or kidney disease, talk with your healthcare provider before using thesemedicines. Also talk with your provider if you ve ever had a stomach ulcer or GI bleeding. Shoulder and elbow joints become stiff if left in a sling for too long. You should start range of motion exercises about 7 to 10 days after the injury. Talk with your provider to find out what type of exercises to do and how soon to start. Unless your provider told you otherwise, you can take the sling off to shower or bathe. Follow-up care Follow up with your healthcare provider if you don t start getting better in the next 5 days. When to seek medical advice Call your healthcare provider right away if any of these occur: Pain or swelling gets worse or continues for more than a few days Large amount of bruising on your shoulder or upper arm Your hand or fingers become cold, blue, numb, or tingly Difficulty moving your hand or fingers Weakness in your hand or fingers Your shoulder becomes stiff Your shoulder feels like it is popping out You aren t able to do your daily activities [id number] [employer]. [address] [place] [address], [place] [address]. All rights reserved. This information is not intended as a substitute for professional medical care. Always follow yourhealthcare professional's instructions. Follow Up Care 12/30/2023 11:39:15 With:TERESA AGUILAR MD Address: [address] [place] [address]- [facility] Note Discharge Instructions Thank you for allowing [facility] to assist you with your healthcare needs. The following is importantdischarge information regarding your hospital visit. Diagnosis from Today's Visit Contusion of shoulder region Shoulder pain-swelling What to Do Next Instructions from Your Care Team No qualifying data available. Post Acute Orders No qualifying data available. You Need to Schedule the Following Appointments Follow Up with TERESA AGUILAR MD When Within 2-4 days Where: [address] [facility] [place] [address]- Allergies Demerol HCl (Hives) Desyrel (blotches over body) predniSONE (stomach problems) erythromycin (rash) morphine (rash over body) doxycycline (Hives) Medications Please ask your primary doctor or pharmacist before taking any other medication not listed, including over the counter drugs, herbal medications, vitamins and or supplements as they may interact withyour home medications. What How Much When Why Instructions Last Dose New APAP/ butalbital/ caffeine (Fioricet oral capsule- use generic Fioricet tablet) 1 cap by mouth Every 4 hours as needed for Pain Printed Prescription Unchanged acetaminophen-hydrocodone ([place] 325- 5 mg oral tablet) 1 tab(s) by mouth Every 6 hours Ankle sprain Duration: 2 Days Unchanged albuterol (albuterol MDI (90 mcg/ inh) CFC free inhalation aerosol) 2 puff(s) by inhalation Every 4 hours Unchanged albuterol (ProAir HFA MDI (90 mcg/ inh) inhalation aerosol) 1 puff(s) by inhalation Four (4) times a day as needed for for wheezing Unchanged albuterol-ipratropium (DuoNeb 0.5 mg-2.5 mg/ 3 mL inhalation solution) 3 Milliliter by inhalation Four (4) times a day Unchanged benztropine (benztropine 1 mg oral tablet) 1 tab(s) by mouth Two (2) times a day Unchanged buPROPion (buPROPion 150 mg/ 24 hours (XL) oral tablet, extended release) 1 tab(s) by mouth Every 24 hours Unchanged escitalopram (Lexapro 5 mg oral tablet) 1 1/2 tablet by mouth Every day Unchanged fluticasone nasal (Flonase 50 mcg/ inh nasal spray) 1 spray(s) in the nose Two (2) times a day Upper respiratory infection in each nostril Unchanged lamoTRIgine (Lamictal 100 mg oral tablet) 1 tab(s) by mouth Once a day Unchanged lamoTRIgine (lamoTRIgine 100 mg oral tablet) 1 tab(s) by mouth Two (2) times a day Unchanged meloxicam (meloxicam 15 mg oral tablet) take 1 tablet by mouth once daily with food Unchanged Misc Medication (RA MELATONIN 10 MG TABLET) take 1 tablet by mouth at bedtime if needed Unchanged naproxen (Naprosyn 500 mg oral tablet) 1 tab(s) by mouth Twice daily with meals as needed for Pain Unchanged naproxen (Naprosyn 500 mg oral tablet) 1 tab(s) by mouth Twice daily with meals as needed for Pain Duration: 7 Days Unchanged omeprazole (NF) (omeprazole 20 mg oral delayed release capsule (NF)) 1 cap by mouth Once a day Unchanged prazosin (prazosin 1 mg oral capsule) 1 cap by mouth Three (3) times a day Unchanged QUEtiapine (SEROquel 300 mg oral tablet) 1 tab(s) by mouth Daily at bedtime Unchanged sertraline (sertraline 50 mg oral tablet) 1 tab(s) by mouth Every day Please take this list to your next doctor s visit. Bring all medications you take, including over the counter medications, herbals and other supplements with you to your doctor s visit. Patients and families are reminded to discard old lists and to update any records with all medication providers or retail pharmacies. Education Materials Shoulder Contusion You have a shoulder injury called a contusion. This causes pain, swelling, and sometimes bruising on the skin. You don t have any broken bones. This injury will take from a few days to several weeks to heal, depending on how severe it is. Moderate to severe shoulder contusions are treated with a sling or shoulder immobilizer. Minor contusions can be treated without any special support. Home care Follow these tips when caring for yourself at home: If you were given a sling to use, leave it in place for the time advised by your healthcare provider. If you aren t sure how long to wear it, ask for advice. If the sling becomes loose, adjust it so that your forearm is level with the ground. Your shoulder should feel well supported. Put an ice pack on the injured area for 20 minutes every 1 to 2 hours the first day. You can make your own ice pack by putting ice cubes in a plastic bag. Wrap the bag in a thin towel. Continue with ice packs 3 to 4 times a day for the next 2 days. Then use the pack as needed to ease pain and swelling. You may use acetaminophen or ibuprofen to control pain, unless another pain medicine was prescribed. If you have chronic liver or kidney disease, talk with your healthcare provider before using thesemedicines. Also talk with your provider if you ve ever had a stomach ulcer or GI bleeding. Shoulder and elbow joints become stiff if left in a sling for too long. You should start range of motion exercises about 7 to 10 days after the injury. Talk with your provider to find out what type of exercises to do and how soon to start. Unless your provider told you otherwise, you can take the sling off to shower or bathe. Follow-up care Follow up with your healthcare provider if you don t start getting better in the next 5 days. When to seek medical advice Call your healthcare provider right away if any of these occur: Pain or swelling gets worse or continues for more than a few days Large amount of bruising on your shoulder or upper arm Your hand or fingers become cold, blue, numb, or tingly Difficulty moving your hand or fingers Weakness in your hand or fingers Your shoulder becomes stiff Your shoulder feels like it is popping out You aren t able to do your daily activities [id number] [employer]. [address] [place] [id number]. All rights reserved. This information is not intended as a substitute for professional medical care. Always follow yourhealthcare professional's instructions. Additional Information VACCINATE! IT SAVES LIVES! Members of the community who have not yet received the COVID-19 vaccine and would like to receive it can visit one of [facility] vaccine clinics. There are many vaccine clinic locations within the [facility]. For locations and available times, please visit www.gettheshot.coronavirus.[place].gov/. It is important to note that some COVID mobile vaccine clinics are held outdoors and may be canceled in rainy or stormy conditions. To learn more about pediatric vaccinations (ages 5-11), we invite you to visit the [facility] webpage. https://www.[facility].org/pages/4344-Ecbco-Qtiqogqymkj-Qdmoegyncn-Eokgi-Qcs stions.htmlTo learn more about the COVID-19 vaccine, we invite you to visit the CDC website for a list of frequently asked questions. https://www.cdc.gov/coronavirus/2019-ncov/vaccines/faq.html [facility] Patient Portal Access Instructions: Stay connected with your healthcare team and access your personal medical information anytime with the [facility] Patient Portal. If you would like a full copy of your medical records please contact the [facility] Medical Records Department Wednesday through Wednesday between 8a.m. and 4:30p.m. Please follow the directions below to access the portal: 1.Access the email account you provided upon registration to the special care hospital.2.Look for an invitation email from [facility].3.Open the email and access the invitation link: Accept Invitation to [facility]4.Fill in the required hester to create your account. Sign into www.[employer] with your username and password that you created in the above steps to stay up to date. You can then view a summary of results, a summary of your visits, and the ability to download your summaries to your computer or send the information securely to a physician. Remember that your healthcare information is confidential, so carefully consider who you will allow to register on the [facility] Patient Portal for access to your information. You can also access the [facility] Patient Portal on the [employer]. Simply click on Health Records under [place] and then click on the [employer] logo. HOW TO SAFELY DISPOSE OF PRESCRIPTION MEDICATIONS Please use one of the following methods to safely dispose of your unused medications. 1.Use a drug disposal kit: the drug disposal pouch allows you to safely discard your old and unuseddrugs. Ask your nurse to give you one when you are discharged.2.Visit a local take-back location: Many local pharmacies and police departments have programs that collect old and unwanted prescriptiondrugs. Call your local pharmacy or go to http://bit.Macheen/7X0Ku8q to find one close to you.3.Make use of household items: Use cat litter or old coffee grounds to dispose medications if other options arenot available. Mix your drugs with these household products, seal them in an airtight container andthrow it into the garbage. Call [facility]: [phone] to be sure your drugs can be disposed of in this way. Some medicines may require a different approach.4.Never flush your medications down the toilet. IF YOU HAVE BEEN PRESCRIBED AN OPIOIDS FOR PAIN If you have been prescribed an opioid (such as hydrocodone, oxycodone or morphine), it is critical to understand the possible side effects and risks of opioid pain medications. Even when taken as directed, opioids can have several side effects including: Tolerance, meaning you might need to take more of a medication for the same pain relief. Nausea, vomiting and/or constipation. Sleepiness, dizziness, dry mouth, confusion, depression or itching. Physical dependence, meaning you have withdrawal symptoms when a medication is stopped ? this can develop within a few days. KNOW YOUR RESPONSIBILITIES It is important to know exactly how much and how often to take the opioid pain medications you are prescribed. Never take opioids in higher amounts or more often than prescribed. Do not combine opioids with alcohol or other drugs that cause drowsiness, such as benzodiazepines, also known as benzos,including diazepam and alprazolam, muscle relaxants or sleep aids. Never sell or share prescriptionopioids. This is illegal. Store opioids in a secure place and out of reach of others (including children, family, friends and visitors). The last page(s) of this document has been signed and retained as a CHART COPY Signatures Patient Education Materials Shoulder Contusion Medication Leaflets My discharge plan and instructions have been reviewed and explained to me and I,ALBANIA RAMSEY understand my current condition and have read and understand these discharge instructions. I have received a written copy of the plan/instructions. If I have questions, I am aware that I should contact my doctor. 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 The components appear well seated and intact. No acute fracture or dislocation is identified. The acromioclavicular joint is maintained with mild degenerative change. IMPRESSION: No acute osseous abnormality. Interpreted by: Yani Walsh MD Preliminary Report By: Yani Walsh MD Electronically signed By Yani Walsh MD Dictated Date: 12/30/2023 12:35:14 PM Prelim Date: 12/30/2023 12:36:22 PM Sign Date: 12/30/2023 12:36:22 PM Ordering Provider: [facility]03-27-2024 Miscellaneous Notes* Telephone Encounter - Josh Mirza APRN.CNP - 12/08/2023 10:05 AM EDT The following approved medication requests have been transmitted electronically. Requested Prescriptions Pending Prescriptions Disp Refills meclizine (ANTIVERT) 25 mg tab 40 tablet 2 Sig: Take 1 tablet by mouth every 6 hours as needed (dizziness). Josh Mirza APRN.CNP * Telephone Encounter - Maude Scott RN - 12/08/2023 9:21 AM EDT Patient has been identified by name and date of : Yes, Provider Dr Aguilar Date 12/08/23 Time 0922. Patient phones for refill(s): Requested Prescriptions Pending Prescriptions Disp Refills meclizine (ANTIVERT) 25 mg tab 40 tablet 2 Sig: Take 1 tablet by mouth every 6 hours as needed (dizziness). Date of last office visit in primary care: 12/01/2023 Date of next office visit in primary care: Visit date not found Please advise. Thank you. Maude Scott RN. documented in this encounterJoint [facility]03-20-2024 Miscellaneous Notes* Telephone Encounter - Anna Russo LPN - 12/01/2023 11:15 AM EDT Patient notified of results, verbalizes understanding of instructions. Anna Russo LPN * Telephone Encounter - Brisa Clarke OCCA - 12/01/2023 10:58 AM EDT TC to patient with no answer. Unable to leave VM d/t not set up. Please try again later. SHYLA Burrell * Telephone Encounter - Nga Ferrer APRN.CNP - 12/01/2023 9:53 AM EDT Can you please call the patient and let her know I reviewed her chest x-ray. Chest x-ray shows bilateral lower lobe pneumonia. I would like her to continue with current medications. Any worsening of symptoms or difficulty breathing go to ER. Please let me know if she has any questions. Thank you. Nga Ferrer APRN.NEAL documented in this encounterJoint [facility]03-20-2024 History of Present illness Narrative* Casandra Georges, RT(R) - 12/01/2023 9:10 AM EDT Radiology Service Progress Note PATIENT NAME: Albania Ramsey DATE OF SERVICE: December 01, 2023 TIME: 9:05 AM PATIENT IDENTITY VERIFICATION COMPLETED USING TWO (2) IDENTIFIERS: Name and Date of confirmedby patient verbally. FALL SCREENING: Has the patient had 2 falls in the last year or 1 fall with injury or currently using an Ambulatory Assistive Device (Walker, Cane, Wheelchair, Crutches, etc.)? No PATIENT GENDER DATA: Female. status: : No status: NO. PATIENT RELEVANT IMPLANT DATA REVIEWED: Yes PATIENT PRESENTS WITH AN IMPLANTABLE OR ATTACHED BUILDING CONSTRUCTION ENGINEER: No RADIOLOGY DEPARTMENT: General X-ray: Exam(s) Completed: Chest X-Ray PERIPHERAL IV DATA: Not applicable SIGNED BY: RT Jared(R) December 01, 2023 9:05 AM documented in this encounterJoint Township District Memorial Hospital03-20-2024 Instructions* Patient Instructions* Nga Ferrer APRN.CNP - 12/01/2023 9:00 AM EDT Get xray completed Start Zpack and prednisone, take with food. Continue with current inhaler and oxygen Any worsening symptoms or difficulty breathing go to ER May use Codeine cough syrup three times daily as needed. Stay well hydrated. Follow up if no improvement. documented in this encounterJoint Township District [facility]03-20-2024 History of Present illness Narrative* Nga Ferrer APRN.CNP - 12/01/2023 8:40 AM EDT This is a 63 year old female who presents today with: Patient presents with: Acute Visit: upper respiratory HISTORY OF PRESENT ILLNESS: Albania Ramsey is a 63 year old female. Patient presents with: Acute Visit: upper respiratory Here in the office for cough. Started 2 weeks ago. Cough is productive, yellow mucus. SOB and wheezing. Had a fever initally, Smoking 6 cigarettes per day. History of COPD, follows withPulmonology, Dr. Loo. Using 2 Liters O2 at home, not checking SPO2 at home. PAST MEDICAL HISTORY: PAST MEDICAL HISTORY Diagnosis Date Asthma Bipolar I disorder, most recent episode (or current) unspecified Blood dyscrasia Chronic obstructive pulmonary disease (COPD) (HCC) Dysthymic disorder Depression (non-psychotic) Lumbago Osteoarthritis Pulmonary embolus (HCC) 25 years prior Schizophrenia (HCC) follows with Dr Bill at [facility] Snoring Tobacco use disorder 1/2 ppd since age of 11 PAST SURGICAL HISTORY Procedure Laterality Date APPENDECTOMY 1985 COLONOSCOPY FLX DX W/COLLJ SPEC WHEN PFRMD 10/19/2018 Colonoscopy COLONOSCOPY FLX DX W/COLLJ SPEC WHEN PFRMD 11/21/2019 Colonoscopy COLSC FLX W/RMVL OF TUMOR POLYP LESION SNARE TQ 04/19/2012 4 polyps - 3 yr follow up EGD TRANSORAL BIOPSY SINGLE/MULTIPLE 04/19/2012 gastritis ESOPHAGOGASTRODUODENOSCOPY TRANSORAL DIAGNOSTIC 11/21/2019 EGD EXC BREAST LES PREOP PLMT RAD MARKER OPEN 1 LES Left 11/18/2016 Mild duct ectasia, benign microcalcifications HERNIA REPAIR HX 90s Lt inguinal LAPAROSCOPY COLECTOMY PARTIAL W/ANASTOMOSIS 12/19/2018 laparscopic right hemicolectomy LAPAROSCOPY SURG CHOLECYSTECTOMY 1981 Cholecystectomy, lap LAPS ABD PRTM&OMENTUM DX W/WO SPEC BR/WA SPX Laparoscopy PAST SURGICAL HISTORY OF 10/27/2010 L5-S1 Microdisckectomy PAST SURGICAL HISTORY OF Left 11/18/2016 breast bx-Dr. Wise SURGICAL ARTHROSCOPY FAM W/CORACOACRM LIGM RLS Right 11/27/2020 Right shoulder arthroscopy, glenohumeral chondroplasty, biceps tenotomy, SAD TOTAL ABDOMINAL HYSTERECT W/WO RMVL TUBE OVARY 1981 Hysterectomy, VALDEMAR ALLERGIES Demoral [Meperidine], Desyrel [Trazodone Hcl], Doxycycline, Erythromycin, Morphine, and Prednisone MEDICATIONS Current Outpatient Medications Medication Sig fluticasone-salmeterol (ADVAIR DISKUS) 250-50 mcg/dose inhaler inhale 1 puff by mouth and INTO THE LUNGS twice a day Rinse mouth after use meclizine (ANTIVERT) 25 mg tab Take 1 tablet by mouth every 6 hours as needed (dizziness). ondansetron (ZOFRAN) 4 mg tablet Take 1 tablet by mouth every 8 hours as needed for up to 10 doses. tiotropium bromide (SPIRIVA RESPIMAT) 2.5 mcg/actuation inhaler Inhale 2 Puffs as instructed once daily. melatonin 10 mg tab Take 1 tablet by mouth at bedtime as needed. QUEtiapine (SEROQUEL) 400 mg tablet take 2 tablets by mouth once daily at bedtime OXYGEN, HOME THERAPY, 2 L/min by Nasal Cannula route continuous. albuterol (PROVENTIL) 2.5 mg /3 mL (0.083 %) nebulizer solution Use 3 mL via nebulizer every 4 hours as needed for wheezing/shortness of breath. Use over 5-15minutes. pantoprazole DR (PROTONIX) 20 mg tablet Take 1 tablet by mouth daily before breakfast. Take on empty stomach, 1/2 hr before meal. cholecalciferol, Vitamin D3, (VITAMIN D3) 1,250 mcg (50,000 unit) cap capsule Take 1 capsule by mouth one time a week. mineral oil/hydrophil petrolatum (AQUAPHOR) oint Apply to affected area as needed. Apply liberally to area three times a day. lamoTRIgine (LAMICTAL) 150 mg tablet Take 1 tablet by mouth three times daily as needed. albuterol HFA (PROVENTIL HFA, VENTOLIN HFA) 90 mcg/actuation inhaler Inhale 2 Puffs as instructed every 4 hours as needed for Wheezing/Shortness of Breath. prazosin (MINIPRESS) 2 mg cap Take 2 mg by mouth daily at bedtime. sertraline (ZOLOFT) 50 mg tablet Take 50 mg by mouth once daily. benztropine (COGENTIN) 1 mg tablet Take 1 mg by mouth twice daily. No current facility-administered medications for this visit. FAMILY HISTORY Problem Relation Age of Onset Blood Disease Mother Diabetes Mother Colon Cancer Mother Breast Cancer Mother other (Bleeding disorder) Mother Cancer Father prostate Prostate Cancer Father Diabetes Sister Heart disease Sister other (HTN) Sister Stroke Sister other (Same issues as other sister) Sister Cervical Cancer Maternal Aunt Breast Cancer Other cousin Social History Tobacco Use Smoking status: Every Day Packs/day: 0.50 Years: 34.00 Additional pack years: 0.00 Total pack years: 17.00 Types: Cigarettes Start date: 10/02/1972 Smokeless tobacco: Never Tobacco comments: 2 ppd in past Vaping Use Vaping Use: Never used Substance Use Topics Alcohol use: No Drug use: No REVIEW OF SYSTEMS GENERAL: No weight loss, malaise or fevers/chills HEENT: Negative for frequent or significant headaches, No changes in hearing or vision. NECK: Negative for lumps, goiter, pain and significant neck swelling RESPIRATORY: + SOB/Cough CARDIOVASCULAR: Negative for chest pain, leg swelling, orthopnea, or palpitations GI: No nausea, vomiting, or diarrhea/constipation. No hematochezia/melena. No heartburn or reflux symptoms. : No history of dysuria, frequency or incontinence MUSCULOSKELETAL: Negative for joint pain or swelling. SKIN: Negative for lesions, rash, and itching ENDOCRINE: Negative for cold or heat intolerance, polyuria, polydipsia and goiter NEURO: No history of headaches, syncope, paralysis, seizures or tremors MOOD: Negative for depression, anxiety, or suicidal ideation. EXAM: BP 90/60 Pulse 106 Resp 20 Wt 50.3 kg (111 lb) SpO2 90% BMI 17.39 kg/m PHYSICAL EXAM: General Appearance: Ill appearing, alert, in no acute distress, well-hydrated, well nourished. Skin: Skin color, texture, turgor normal, no suspicious rashes or lesions. Head: Normocephalic, no masses, lesions, tenderness or abnormalities. Eyes: Anicteric sclera. Pupils are equally round and reactive to light. Extraocular movements are intact. Ears: External ears normal, canals clear. TMs pearly stokes. Nose/Sinuses: Nares normal, septum midline, mucosa normal, no drainage or sinus tenderness. Oropharynx: Lips, mucosa, and tongue normal, teeth and gums normal, oropharynx normal. Neck: Supple, no adenopathy; thyroid symmetric, normal size, no bruits. Lungs: Cough, wheezing, SOB. Heart: RRR without murmur, gallop, or rubs. No ectopy. Extremities: No deformities, edema, skin discoloration, clubbing or cyanosis. Good capillary refill. Peripheral Pulses: Normal, Capillary refill <2secs, strong peripheral pulses, Pulses palpable. Neurologic: Gait normal. Sensation grossly intact. ASSESSMENT/PLAN: 1. COPD with exacerbation (HCC) - ICD9: 491.21, ICD10: J44.1 - Get chest x-ray completed. - Will treat with Z-Alex and prednisone burst. - May use codeine cough syrup as needed. - Instructed to go to ER with any worsening symptoms or increased shortness of breath, she verbalizes understanding. - XR CHEST 2V FRONTAL/LAT - AZITHROMYCIN 250 MG TABLET - PREDNISONE 20 MG TABLET - CODEINE 10 MG-GUAIFENESIN 100 MG/5 ML ORAL LIQUID PDMP website checked and validated. All prescriptions have been APPROPRIATELY filled. No suspiciousactivity was identified. 12/01/2023 by Nga Ferrer APRN.NEAL Follow-up pending test results or sooner as needed. Discussed treatment plan and patient voices understanding. Patient's questions answered appropriately. Medications and potential side effects were discussed and patient voices understanding. Nga Ferrer APRN.NEAL This note was partially generated using [employer] voice recognition system. Note was reviewed for accuracy. There may be minor misspellings or grammar miscues with [employer] voice recognition. documented in this encounterJoint [facility]03-18-2024 Telephone encounter Note * Telephone Encounter - Cathy Perez RN - 11/29/2023 8:53 AM EDT Triage Protocol Recommended: See provider within 4 hours, today. Pt voiced understanding, however states she is unable to get transportation until Wednesday and requested appt for then. Appt made with Nga Ferrer for 12/01/23 as requested, despite advise to be seen today, as soon as possible. Patient has been advised to call 911/go to ER for any severe sx's as discussed and pt voiced agreement. Will send this update to Nga for update. Reason for Disposition [1] MILD difficulty breathing (e.g., minimal/no SOB at rest, SOB with walking, pulse <100) AND [2] still present when not coughing Answer Assessment - Initial Assessment Questions 1. ONSET: about 2 weeks ago 2. SEVERITY: frequent, coughing day and night 3. SPUTUM: yellow 4. HEMOPTYSIS: no 5. DIFFICULTY BREATHING: mild-moderate 6. FEVER: yes, 101-last temp was taken yesterday 11/28/23 7. CARDIAC HISTORY:yes, see history 8. LUNG HISTORY: yes, see history 9. PE RISK FACTORS: see history 10. OTHER SYMPTOMS: -fever -frequent cough, reports chest sore from coughing -nasal congestion -SOB with exertion, sometimes feels like going to pass out after coughing or lots of activity-restsand feels better -wears oxygen every night, 2 liters -does not have home Pulse-Ox monitor to check current O2 level -weakness, able to walk ok -wheezing at times-reports this is chronic for her and not worse than usual -nausea-no vomiting -had diarrhea last week, not now -mild headaches for about 2 weeks -body aches for about 2 weeks -using Tussin OTC cough syrup-helps -reports drinking extra fluids -urinating per normal -alert on phone, no distress noted on phone -able to speak full sentences -reports has been around others who have been sick DENIES: severe SOB, chest pain, pain into one side of her body, feeling like passing out, or poor balance 11. : no 12. TRAVEL: no Protocols used: Cough - Acute Lrhdluszmb-UYVSL-DM [facility]03-18-2024 Miscellaneous Notes* Telephone Encounter - Cathy Perez RN - 11/29/2023 8:53 AM EDT Triage Protocol Recommended: See provider within 4 hours, today. Pt voiced understanding, however states she is unable to get transportation until Wednesday and requested appt for then. Appt made with Nga Ferrer for 12/01/23 as requested, despite advise to be seen today, as soon as possible. Patient has been advised to call 911/go to ER for any severe sx's as discussed and pt voiced agreement. Will send this update to Nga for update. Reason for Disposition [1] MILD difficulty breathing (e.g., minimal/no SOB at rest, SOB with walking, pulse <100) AND [2] still present when not coughing Answer Assessment - Initial Assessment Questions 1. ONSET: about 2 weeks ago 2. SEVERITY: frequent, coughing day and night 3. SPUTUM: yellow 4. HEMOPTYSIS: no 5. DIFFICULTY BREATHING: mild-moderate 6. FEVER: yes, 101-last temp was taken yesterday 11/28/23 7. CARDIAC HISTORY:yes, see history 8. LUNG HISTORY: yes, see history 9. PE RISK FACTORS: see history 10. OTHER SYMPTOMS: -fever -frequent cough, reports chest sore from coughing -nasal congestion -SOB with exertion, sometimes feels like going to pass out after coughing or lots of activity-restsand feels better -wears oxygen every night, 2 liters -does not have home Pulse-Ox monitor to check current O2 level -weakness, able to walk ok -wheezing at times-reports this is chronic for her and not worse than usual -nausea-no vomiting -had diarrhea last week, not now -mild headaches for about 2 weeks -body aches for about 2 weeks -using Tussin OTC cough syrup-helps -reports drinking extra fluids -urinating per normal -alert on phone, no distress noted on phone -able to speak full sentences -reports has been around others who have been sick DENIES: severe SOB, chest pain, pain into one side of her body, feeling like passing out, or poor balance 11. : no 12. TRAVEL: no Protocols used: Cough - Acute Nbmreqkhvv-RHCCW-SU documented in this encounterJoint Township District [facility]03-15-2024 History of Present illness Narrative* Kimberlee Kennedy PA-C - 11/26/2023 7:51 AM EDT Kimberlee Kennedy PA-C Department of Orthopaedics November 26, 2023 SURGERY: Reverse total shoulder arthroplasty - right SUBJECTIVE: Returns to clinic now 4 months status post the above procedure. Last seen about a monthago following a fall. X-rays are stable at that time. Unfortunately she had another fall on Wednesday, landing on her right shoulder. She has pain down the lateral aspect of her arm. Exam: Well healed anterior incision. Active forward elevation to 90 with pain. Strong deltoid contractionagainst resistance. Nontender along scapular spine or acromion. Imaging: I did order and interpret radiographs today, 3 views right shoulder. Reverse total shoulder arthroplasty intact without evidence of mechanical loosening or periprosthetic fracture. ASSESSMENT: Z96.611 Status post reverse total replacement of right shoulder (primary encounter diagnosis) SUMMARY/PLAN: We reviewed her x-rays taken today following another fall this week. No acute fractures. No concerns with her prosthesis. Will get her back into physical therapy. I recommend she speak with her PCP regarding these frequent falls she is experiencing. Recheck in 6 weeks to ensure continued improvement. Kimberlee Kennedy PA-C documented in this encounterJoint Township District [facility] Hospital03-15-2024 History of Present illness Narrative* Peg Harris Tech - 11/26/2023 7:30 AM EDT Radiology Service Progress Note PATIENT NAME: Albania Ramsey DATE OF SERVICE: November 26, 2023 TIME: 7:38 AM PATIENT IDENTITY VERIFICATION COMPLETED USING TWO (2) IDENTIFIERS: Name and Date of confirmedby patient verbally. FALL SCREENING: Has the patient had 2 falls in the last year or 1 fall with injury or currently using an Ambulatory Assistive Device (Walker, Cane, Wheelchair, Crutches, etc.)? No PATIENT GENDER DATA: Female. status: : No status: NO. PATIENT RELEVANT IMPLANT DATA REVIEWED: Not Applicable PATIENT PRESENTS WITH AN IMPLANTABLE OR ATTACHED BUILDING CONSTRUCTION ENGINEER: No RADIOLOGY DEPARTMENT: General X-ray: Exam(s) Completed: Upper Extremity X- Ray(s): Shoulder,TRUE AP / AXILLARY / SUPRA OUTLET right PERIPHERAL IV DATA: Not applicable SIGNED BY: Kayla Fernández November 26, 2023 7:38 AM documented in this encounterJoint Township District Memorial Hospital03-15-2024 NoteHNO ID: [id number] Author: PEG HARRIS Tech Service: ? Author Type: Land Appraiser Type: Progress Notes Filed: 11/26/2023 07:38 Note Text: Radiology Service Progress Note PATIENT NAME: Albania Ramsey DATE OF SERVICE: November 26, 2023 TIME: 7:38 AM PATIENT IDENTITY VERIFICATION COMPLETED USING TWO (2) IDENTIFIERS: Name and Date of confirmed by patient verbally. FALL SCREENING: Has the patient had 2 falls in the last year or 1 fall with injury or currently using an Ambulatory Assistive Device (Walker, Cane, Wheelchair, Crutches, etc.)? No PATIENT GENDER DATA: Female. status: : No status: NO. PATIENT RELEVANT IMPLANT DATA REVIEWED: Not Applicable PATIENT PRESENTS WITH AN IMPLANTABLE OR ATTACHED BUILDING CONSTRUCTION ENGINEER: No RADIOLOGY DEPARTMENT: General X-ray: Exam(s) Completed: Upper Extremity X-Ray(s): Shoulder,TRUE AP / AXILLARY / SUPRA OUTLET right PERIPHERAL IV DATA: Not applicable SIGNED BY: Kayla Fernández November 26, 2023 7:38 AMTrumbull Memorial [id number] Miscellaneous Notes* Telephone Encounter - Teresa Aguilar MD - 11/13/2023 10:25 AM EST OK to refill as ordered Teresa Aguilar MD * Telephone Encounter - Dolly Acosta Ma - 11/13/2023 9:59 AM EST Patient has been identified by name and date of : Yes, Provider Josh Mirza CNP Date November Time 10:00 AM Pharmacy phones for refill(s): Requested Prescriptions Pending Prescriptions Disp Refills ADVAIR DISKUS 250-50 mcg/dose inhaler [Pharmacy Med Name: ADVAIR 250-50 DISKUS] Sig: inhale 1 puff by mouth and INTO THE LUNGS twice a day Rinse mouth after use Date of last office visit in primary care: 10/11/2023 Date of next office visit in primary care: Visit date not found Last rx: 05/21/23 #60 each w/2 refills. Please advise. Thank you. Dolly Acosta Ma. documented in this encounterJoint Township District [facility] Hospital02-27-2024 Miscellaneous Notes* Telephone Encounter - Kiley Harris APRN.CNP - 11/09/2023 2:32 PM EST Phone call to patient and she reports she no longer has colored sputum. She is still coughing, but it is clear sputum. Recommended [address] from 09/16/2023 CT Chest to follow up on lung nodules. Pt agrees. Kiley Harris APRN.CNP documented in this encounterJoint Township District Memorial Hospital02-12-2024 History of Present illness Narrative* Carolyn Jamison MD - 10/25/2023 10:20 AM EST Images from the original note were not included. PAIN EVALUATION 10/25/2023 0855 Pain Level: 8 Pain Location: Shoulder-Right Description: Stabbing Duration Amount of Time: -- Date of Fall: 10/19/23 or 10/20/23 (patient having hard time remebering) Frequency: Continuous Intervention/Comfort measure: Heat;Medication tylenol, ibuprofen Comments: PT excercise on hold Encounter Diagnosis ICD-10-CM 1. Acute pain of right shoulder M25.511 2. Status post reverse total replacement of right shoulder Z96.611 Albania Ramsey presents today for a shoulder evaluation following a fall injury sustained approximately 1 week ago. She landed on her right posterior shoulder has had pain radiating down the back of her arm since that time. Prior to this her recovery was going well and she was pleased with her early progress following her surgery to replace the right shoulder in July. I examined her right shoulder today. The incision is well-healed. There is no ecchymosis or sign oftrauma. She points to the posterior upper arm as the location of most of her pain. There is no tenderness to palpation around the scapular spine or acromion. She can actively elevate the arm about 60degrees with a strong deltoid contraction. Passively I can range her beyond this with slight discomfort. There is no feeling of crepitation or shifting of the shoulder with passive or active internaland external rotation. I reviewed radiographs of her right shoulder taken today. This shows stable appearance of her reverse arthroplasty with no fracture or component malalignment. These are unchanged from previous imagestaken to my office. Today we reviewed the condition of her right shoulder. She sustained a fall onto the right shoulderwill be expected to have some pain given the proximity to her surgery. There is no component malalignment or dislocation or breakage of the bone or any of her prosthetic components. She may resume light use of the arm which she feels she is able. She would benefit from continued stretching on a daily basis. I will have her keep her previously scheduled return visit for November and we will reassess her at that time. Carolyn Jamison MD Shoulder & Elbow Surgeon Department of Orthopaedic Surgery [facility] documented in this encounterJoint Township District [facility] Hospital02-12-2024 History of Present illness Narrative* Maia Evans Tech - 10/25/2023 8:50 AM EST Radiology Service Progress Note PATIENT NAME: Albania Ramsey DATE OF SERVICE: October 25, 2023 TIME: 8:39 AM PATIENT IDENTITY VERIFICATION COMPLETED USING TWO (2) IDENTIFIERS: Name and Date of confirmedby patient verbally. FALL SCREENING: Has the patient had 2 falls in the last year or 1 fall with injury or currently using an Ambulatory Assistive Device (Walker, Cane, Wheelchair, Crutches, etc.)? No PATIENT GENDER DATA: Female. status: : No status: NO. PATIENT RELEVANT IMPLANT DATA REVIEWED: Not Applicable PATIENT PRESENTS WITH AN IMPLANTABLE OR ATTACHED BUILDING CONSTRUCTION ENGINEER: No RADIOLOGY DEPARTMENT: General X-ray: Exam(s) Completed: Upper Extremity X- Ray(s): Shoulder, TRUE AP/ AXILLARY / SUPRA OUTLET right PERIPHERAL IV DATA: Not applicable SIGNED BY: Kayla Verma October 25, 2023 8:39 AM documented in this encounterJoint Township District [facility] Hospital02-12-2024 NoteHNO ID: [id number] Author: MAIA EVANS Tech Service: Radiology Author Type: Land Appraiser Type: Progress Notes Filed: 10/25/2023 08:39 Note Text: Radiology Service Progress Note PATIENT NAME: Albania Ramsey DATE OF SERVICE: October 25, 2023 TIME: 8:39 AM PATIENT IDENTITY VERIFICATION COMPLETED USING TWO (2) IDENTIFIERS: Name and Date of confirmed by patient verbally. FALL SCREENING: Has the patient had 2 falls in the last year or 1 fall with injury or currently using an Ambulatory Assistive Device (Walker, Cane, Wheelchair, Crutches, etc.)? No PATIENT GENDER DATA: Female. status: : No status: NO. PATIENT RELEVANT IMPLANT DATA REVIEWED: Not Applicable PATIENT PRESENTS WITH AN IMPLANTABLE OR ATTACHED BUILDING CONSTRUCTION ENGINEER: No RADIOLOGY DEPARTMENT: General X-ray: Exam(s) Completed: Upper Extremity X-Ray(s): Shoulder, TRUE AP / AXILLARY / SUPRA OUTLET right PERIPHERAL IV DATA: Not applicable SIGNED BY: Kayla Verma October 25, 2023 8:39 AMTrumbull Memorial [id number] Miscellaneous Notes* Telephone Encounter - Libby Mullins MA - 10/21/2023 1:36 PM EST Completed as requested Libby Mullins MA * Telephone Encounter - Jillian Keating RN - 10/21/2023 10:34 AM EST Spoke with patient Unable to go to [place] Patient accepted appt on Wednesday10/25/23 at 9:15, xrays at 9 * Telephone Encounter - Jillian Keating RN - 10/21/2023 9:37 AM EST She should go back in to her sling and needs to come in for xrays micha. We are in [place] today. We could see her between cases on Wednesday in [place]. Thank you! Kimberlee Kennedy PA-C Tried to call patient back No answer, VM not set up Will try again in a few minutes * Telephone Encounter - Jillian Keating RN - 10/21/2023 8:56 AM EST Spoke with pt S/p reverse right TSR Patient Fell-legs went out from under her, landed on her right shoulder on the floor She can move it with pain but can't raise her arm up (she was able to until the fall) New swelling has occurred since the fall Taking Tylenol ES with no relief Please advise documented in this encounterJoint Township [facility]02-02-2024 History of Present illness Narrative* Kimberlee Kennedy PA-C - 10/15/2023 9:06 AM EST Kimberlee Kennedy PA-C Department of Orthopaedics October 15, 2023 SURGERY: Reverse total shoulder arthroplasty - right SUBJECTIVE: Returns to clinic now 10 weeks status post the above procedure. At her first postoperative visit she was placed in a sling due to recent fall and pain along her scapular spine. Since thattime the pain has improved. She has weaned herself out of the sling and has been doing exercises athome. She is very pleased with her progress. Exam: Well healed anterior incision. Active forward elevation to 140. IR to L5. Strong deltoid contraction against resistance. Nontender along scapular spine. Mild tenderness at acromion. Imaging: I did order and interpret radiographs today, 3 views right shoulder. Reverse total shoulder arthroplasty intact without evidence of mechanical loosening or periprosthetic fracture. 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 She has mild tenderness over her acromion but in general the pain has improved significantly. She is lifting her arm very well. Continue to use arm for activity as tolerates. She will continue with home stretches. Recheck in 6 weeks with repeat xrays of shoulder at that time. Kimberlee Kennedy PA-C documented in [facility] encounter[facility] History of Present illness Narrative* Peg Harris Tech - 10/15/2023 8:10 AM EST Radiology Service Progress Note PATIENT NAME: Albania Ramsey DATE OF SERVICE: October 15, 2023 TIME: 9:05 AM PATIENT IDENTITY VERIFICATION COMPLETED USING TWO (2) IDENTIFIERS: Name and Date of confirmedby patient verbally. FALL SCREENING: Has the patient had 2 falls in the last year or 1 fall with injury or currently using an Ambulatory Assistive Device (Walker, Cane, Wheelchair, Crutches, etc.)? No PATIENT GENDER DATA: Female. status: : No status: NO. PATIENT RELEVANT IMPLANT DATA REVIEWED: Not Applicable PATIENT PRESENTS WITH AN IMPLANTABLE OR ATTACHED BUILDING CONSTRUCTION ENGINEER: No RADIOLOGY DEPARTMENT: General X-ray: Exam(s) Completed: Upper Extremity X- Ray(s): Shoulder,TRUE AP / AXILLARY / SUPRA OUTLET right PERIPHERAL IV DATA: Not applicable SIGNED BY: Kayla Fernández October 15, 2023 9:05 AM documented in this encounterJoint [facility]02-02-[facility]24 NoteHNO ID: [id number] Author: PEG HARRIS Tech Service: ? Author Type: Land Appraiser Type: Progress Notes Filed: 10/15/2023 09:06 Note Text: Radiology Service Progress Note PATIENT NAME: Albania Ramsey DATE OF SERVICE: October 15, 2023 TIME: 9:05 AM PATIENT IDENTITY VERIFICATION COMPLETED USING TWO (2) IDENTIFIERS: Name and Date of confirmed by patient verbally. FALL SCREENING: Has the patient had 2 falls in the last year or 1 fall with injury or currently using an Ambulatory Assistive Device (Walker, Cane, Wheelchair, Crutches, etc.)? No PATIENT GENDER DATA: Female. status: : No status: NO. PATIENT RELEVANT IMPLANT DATA REVIEWED: Not Applicable PATIENT PRESENTS WITH AN IMPLANTABLE OR ATTACHED BUILDING CONSTRUCTION ENGINEER: No RADIOLOGY DEPARTMENT: General X-ray: Exam(s) Completed: Upper Extremity X-Ray(s): Shoulder,TRUE AP / AXILLARY / SUPRA OUTLET right PERIPHERAL IV DATA: Not applicable SIGNED BY: Kayla Fernández October 15, 2023 9:05 AMTrumbull Memorial [id number] Miscellaneous Notes* Telephone Encounter - Lennie Khan Ma - 10/14/2023 9:32 AM EST Pt dropped off a verification of disability doctor information form for [facility]. Please Form filled out with Pt name, provider name, address, phone and fax number. No need for provider to sign. 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 Forms states that once this form is completed [employer] will send a form for doctor to verify pt disability. Lennie Khan Ma documented in this encounterJoint [facility]01-29-[facility]24 History of Present illness Narrative* Casandra Georges RT(R) - 10/11/2023 9:50 AM EST Radiology Service Progress Note PATIENT NAME: Albania Ramsey DATE OF SERVICE: October 11, 2023 TIME: 9:46 AM PATIENT IDENTITY VERIFICATION COMPLETED USING TWO (2) IDENTIFIERS: Name and Date of confirmedby patient verbally. FALL SCREENING: Has the patient had 2 falls in the last year or 1 fall with injury or currently using an Ambulatory Assistive Device (Walker, Cane, Wheelchair, Crutches, etc.)? No PATIENT GENDER DATA: Female. status: : No status: NO. PATIENT RELEVANT IMPLANT DATA REVIEWED: Yes PATIENT PRESENTS WITH AN IMPLANTABLE OR ATTACHED BUILDING CONSTRUCTION ENGINEER: No RADIOLOGY DEPARTMENT: General X-ray: Exam(s) Completed: Pelvis X-Ray: Pelvis with Hip Left PERIPHERAL IV DATA: Not applicable SIGNED BY: RT Jared(R) October 11, 2023 9:46 AM documented in this encounterJoint [facility]01-16-[facility]24 Hospital Discharge instructions Patient Education 09/28/2023 17:49:56 Dizziness, Uncertain Cause Dizziness (Uncertain Cause) Dizziness is a common symptom. It may be described as lightheadedness, spinning, or feeling like you are going to faint. Dizziness can have many causes. Be sure to tell the healthcare provider about: All medicines you take, including prescription, [id number], herbs, and supplements Any other symptoms you have Any health problems you are being treated for Any past major health problems you've had, such as a heart attack, balance issues, hearing problems, or blood pressure problems Anything that causes the dizziness to get worse or better Today's exam did not show an exact cause for your dizziness. Other tests may be needed. Follow up with your healthcare provider. Home care Dizziness that occurs with sudden standing may be a sign of mild dehydration. Drink extra fluids for the next few days. If you recently started a new medicine, stopped a medicine, or had the dose of a current medicine changed, talk with the prescribing healthcare provider. Your medicine plan may need adjustment. If dizziness lasts more than a few seconds, sit or lie down until it passes. This may help prevent injury in case you pass out. Get up slowly when you feel better. Don't drive or use power tools or dangerous equipment until you have had no dizziness for at least 48 hours. Follow-up care Follow up with your healthcare provider for further evaluation within the next 7 days or as advised. When to seek medical advice Call your healthcare provider for any of the following: Worsening of symptoms or new symptoms Passing out or seizure Repeated vomiting Headache Palpitations (the sense that your heart is fluttering or beating fast or hard) Shortness of breath Blood in vomit or stool (black or red color) Weakness of an arm or leg or 1 side of the face Vision or hearing changes Trouble walking or speaking Chest, arm, neck, back, or jaw pain [id number] [employer] [place] [address]. All rights reserved. This information is not intended as a substitute for professional medical care. Always follow yourhealthcare professional's instructions. Follow Up Care 09/28/2023 15:04:53 With:TERESA AGUILAR MD Address: [address] [place] [phone] When:2-4 days [facility] 01-16-2024 Note Discharge Instructions Thank you for allowing [facility] to assist you with your healthcare needs. The following is importantdischarge information regarding your hospital visit. Diagnosis from Today's Visit Dizziness Fall Fall Tail bone pain What to Do Next Instructions from Your Care Team No qualifying data available. Post Acute Orders No qualifying data available. You Need to Schedule the Following Appointments Follow Up with TERESA AGUILAR MD When Within 2-4 days Where: [facility] [place], [place] [phone]- Allergies Demerol HCl (Hives) Desyrel (blotches over body) predniSONE (stomach problems) erythromycin (rash) morphine (rash over body) doxycycline (Hives) Medications Please ask your primary doctor or pharmacist before taking any other medication not listed, including over the counter drugs, herbal medications, vitamins and or supplements as they may interact withyour home medications. What How Much When Why Instructions Last Dose New meclizine (meclizine 25 mg oral tablet) 1 tab(s) by mouth Three (3) times a day Duration: 7 Days Printed Prescription New ondansetron (ondansetron 4 mg oral tablet, disintegrating) 1 tab(s) by mouth Every 6 hours Duration: 4 Days Printed Prescription Changed acetaminophen-hydrocodone ([place] 325- 5 mg oral tablet) 1 tab(s) by mouth Every 6 hours Ankle sprain Duration: 2 Days Changed acetaminophen-hydrocodone ([place] 325- 5 mg oral tablet) 1 tab(s) by mouth Every 6 hours as needed for as needed for pain Tail bone pain Duration: 3 Days Printed Prescription Changed albuterol (albuterol MDI (90 mcg/ inh) CFC free inhalation aerosol) 2 puff(s) by inhalation Every 4 hours Printed Prescription Changed albuterol (ProAir HFA MDI (90 mcg/ inh) inhalation aerosol) 1 puff(s) by inhalation Four (4) times a day as needed for for wheezing Unchanged albuterol-ipratropium (DuoNeb 0.5 mg-2.5 mg/ 3 mL inhalation solution) 3 Milliliter by inhalation Four (4) times a day Unchanged benztropine (benztropine 1 mg oral tablet) 1 tab(s) by mouth Two (2) times a day Unchanged buPROPion (buPROPion 150 mg/ 24 hours (XL) oral tablet, extended release) 1 tab(s) by mouth Every 24 hours Unchanged escitalopram (Lexapro 5 mg oral tablet) 1 1/2 tablet by mouth Every day Unchanged fluticasone nasal (Flonase 50 mcg/ inh nasal spray) 1 spray(s) in the nose Two (2) times a day Upper respiratory infection in each nostril Unchanged lamoTRIgine (Lamictal 100 mg oral tablet) 1 tab(s) by mouth Once a day Unchanged lamoTRIgine (lamoTRIgine 100 mg oral tablet) 1 tab(s) by mouth Two (2) times a day Unchanged meloxicam (meloxicam 15 mg oral tablet) take 1 tablet by mouth once daily with food Unchanged Misc Medication (RA MELATONIN 10 MG TABLET) take 1 tablet by mouth at bedtime if needed Unchanged naproxen (Naprosyn 500 mg oral tablet) 1 tab(s) by mouth Twice daily with meals as needed for Pain Unchanged naproxen (Naprosyn 500 mg oral tablet) 1 tab(s) by mouth Twice daily with meals as needed for Pain Duration: 7 Days Unchanged omeprazole (NF) (omeprazole 20 mg oral delayed release capsule (NF)) 1 cap by mouth Once a day Unchanged prazosin (prazosin 1 mg oral capsule) 1 cap by mouth Three (3) times a day Unchanged QUEtiapine (SEROquel 300 mg oral tablet) 1 tab(s) by mouth Daily at bedtime Unchanged sertraline (sertraline 50 mg oral tablet) 1 tab(s) by mouth Every day Please take this list to your next doctor s visit. Bring all medications you take, including over the counter medications, herbals and other supplements with you to your doctor s visit. Patients and families are reminded to discard old lists and to update any records with all medication providers or retail pharmacies. Medication Leaflets acetaminophen and hydrocodone (a SEET a MIN oh fen and lenkasabi cardona KOE done) Lortab Elixir, Verdrocet What is the most important information I should know about acetaminophen and hydrocodone? MISUSE OF OPIOID MEDICINE CAN CAUSE ADDICTION, OVERDOSE, OR . Keep the medication in a place where others cannot get to it. Taking opioid medicine during may cause life-threatening withdrawal symptoms in the . Fatal side effects can occur if you use opioid medicine with alcohol, or with other drugs that cause drowsiness or slow your breathing. Stop taking this medicine and call your doctor right away if you have skin redness or a rash that spreads and causes blistering and peeling. What is acetaminophen and hydrocodone? Acetaminophen and hydrocodone is a combination medicine used to relieve moderate to severe pain. Acetaminophen and hydrocodone contains an opioid medicine, and may be habit-forming. Acetaminophen and hydrocodone may also be used for purposes not listed in this medication guide. What should I discuss with my healthcare provider before taking acetaminophen and hydrocodone? You should not use this medicine if you are allergic to acetaminophen or hydrocodone, or if you have: severe asthma or breathing problems; or a blockage in your stomach or intestines. Tell your doctor if you have ever had: breathing problems, sleep apnea (breathing stops during sleep); liver disease; a drug or alcohol addiction; kidney disease; a head injury or seizures; urination problems; or problems with your thyroid, pancreas, or gallbladder. If you use opioid medicine while you are , your baby could become dependent on the drug. This can cause life-threatening withdrawal symptoms in the baby after it is born. Babies born dependent on opioids may need medical treatment for several weeks. Ask a doctor before using opioid medicine if you are . Tell your doctor if you notice severe drowsiness or slow breathing in the nursing baby. How should I take acetaminophen and hydrocodone? Follow all directions on your prescription label. Never take this medicine in larger amounts, or for longer than prescribed. An overdose can damage your liver or cause . Tell your doctor if you feel an increased urge to use more of this medicine. Never share this medicine with another person, especially someone with a history of drug abuse or addiction. MISUSE CAN CAUSE ADDICTION, OVERDOSE, OR . Keep the medicine in a place where others cannot get to it. Selling or giving away this medicine is against the law. Measure liquid medicine carefully. Use the dosing syringe provided, or use a medicine dose-measuring device (not a kitchen spoon). If you need surgery or medical tests, tell the doctor ahead of time that you are using this medicine. You should not stop using this medicine suddenly. Follow your doctor's instructions about tapering your dose. Store at room temperature away from moisture and heat. Keep track of your medicine. You should be aware if anyone is using it improperly or without a prescription. Do not keep leftover opioid medication. Just one dose can cause in someone using this medicine accidentally or improperly. Ask your pharmacist where to locate a drug take-back disposal program.If there is no take-back program, flush the unused medicine down the toilet. What happens if I miss a dose? Since this medicine is used for pain, you are not likely to miss a dose. Skip any missed dose if itis almost time for your next dose. Do not use two doses at one time. What happens if I overdose? Seek emergency medical attention or call the Poison Help line at . An overdose of this medicine can be fatal, especially in a child or other person using the medicine without a prescription. Overdose symptoms may include nausea, vomiting, sweating, severe drowsiness, pinpoint pupils, slow breathing, or no breathing. Your doctor may recommend you get naloxone (a medicine to reverse an opioid overdose) and keep it with you at all times. A person caring for you can give the naloxone if you stop breathing or don't wake up. Your caregiver must still get emergency medical help and may need to perform CPR (cardiopulmonary resuscitation) on you while waiting for help to arrive. Anyone can buy naloxone from a pharmacy or local health department. Make sure any person caring foryou knows where you keep naloxone and how to use it. What should I avoid while taking acetaminophen and hydrocodone? Avoid driving or operating machinery until you know how this medicine will affect you. Dizziness ordrowsiness can cause falls, accidents, or severe injuries. Do not drink alcohol. Dangerous side effects or could occur. Ask a doctor or pharmacist before using any other medicine that may contain acetaminophen (sometimes abbreviated as APAP). Taking certain medications together can lead to a fatal overdose. What are the possible side effects of acetaminophen and hydrocodone? Get emergency medical help if you have signs of an allergic reaction: hives; difficulty breathing; swelling of your face, lips, tongue, or throat. Opioid medicine can slow or stop your breathing, and may occur. A person caring for you should give naloxone and/or seek emergency medical attention if you have slow breathing with long pauses,blue colored lips, or if you are hard to wake up. In rare cases, acetaminophen may cause a severe skin reaction that can be fatal. This could occur even if you have taken acetaminophen in the past and had no reaction. Stop taking this medicine and call your doctor right away if you have skin redness or a rash that spreads and causes blistering andpeeling. Call your doctor at once if you have: noisy breathing, sighing, shallow breathing, breathing that stops; a light-headed feeling, like you might pass out; liver problems--nausea, upper stomach pain, tiredness, loss of appetite, dark urine, chinyere-colored stools, jaundice (yellowing of the skin or eyes); low cortisol levels-- nausea, vomiting, loss of appetite, dizziness, worsening tiredness or weakness; o high levels of serotonin in the body--agitation, hallucinations, fever, sweating, shivering, fast heart rate, muscle stiffness, twitching, loss of coordination, nausea, vomiting, diarrhea. Serious breathing problems may be more likely in older adults and in those who are debilitated or have wasting syndrome or chronic breathing disorders. Common side effects include: dizziness, drowsiness, feeling tired; nausea, vomiting, stomach pain; constipation; or headache. This is not a complete list of side effects and others may occur. Call your doctor for medical advice about side effects. You may report side effects to FDA at 7-567-IJW-1490. What other drugs will affect acetaminophen and hydrocodone? You may have breathing problems or withdrawal symptoms if you start or stop taking certain other medicines. Tell your doctor if you also use an antibiotic, antifungal medication, heart or blood pressure medication, seizure medication, or medicine to treat HIV or hepatitis C. Opioid medication can interact with many other drugs and cause dangerous side effects or . Be sure your doctor knows if you also use: cold or allergy medicines, bronchodilator asthma/COPD medication, or a diuretic ('water pill'); medicines for motion sickness, irritable bowel syndrome, or overactive bladder; other opioids--opioid pain medicine or prescription cough medicine; a sedative like Valium--diazepam, alprazolam, lorazepam, Xanax, Klonopin, Versed, and others; drugs that make you sleepy or slow your breathing--a sleeping pill, muscle relaxer, medicine to treat mood disorders or mental illness; drugs that affect serotonin levels in your body--a stimulant, or medicine for depression, Parkinson's disease, migraine headaches, serious infections, or nausea and vomiting. This list is not complete. Other drugs may affect acetaminophen and hydrocodone, including prescription and wbdb-fpn-tgdrzyd medicines, vitamins, and herbal products. Not all possible interactions are listed here. Where can I get more information? Your doctor or pharmacist can provide more information about acetaminophen and hydrocodone. Remember, keep this and all other medicines out of the reach of children, never share your medicines with others, and use this medication only for the indication prescribed. Every effort has been made to ensure that the information provided by [employer]') is accurate, up-to-date, and complete, but no guarantee is made to that effect. Drug information contained herein may be time sensitive. [employer] information has been compiled for use by healthcare practitioners and consumers in the [place] and therefore [employer] does not warrant that uses outside of the [place] are appropriate, unless specifically indicated otherwise. [email or web address] drug information does not endorse drugs, diagnose patients or recommend therapy. [employer] drug information isan informational resource designed to assist licensed healthcare practitioners in caring for their p atients and/or to serve consumers viewing this service as a supplement to, and not a substitute for, the expertise, skill, knowledge and judgment of healthcare practitioners. The absence of a warningfor a given drug or drug combination in no way should be construed to indicate that the drug or drug combination is safe, effective or appropriate for any given patient. [employer] does not assume any responsibility for any aspect of healthcare administered with the aid of information [employer] provides. The information contained herein is not intended to cover all possible uses, directions, precautions, warnings, drug interactions, allergic reactions, or adverse effects. If you have questions about the drugs you are taking, check with your doctor, nurse or pharmacist. Copyright 6604-5382 [facility] [employer]. Version: 19.. Revision Date: 05/03/2023. ondansetron (oral) (on JAMES se nicole) What is the most important information I should know about ondansetron? You should not use ondansetron if you are also using apomorphine (Apokyn). What is ondansetron? Ondansetron blocks the actions of chemicals in the body that can trigger nausea and vomiting. Ondansetron is used to prevent nausea and vomiting that may be caused by surgery, cancer chemotherapy, or radiation treatment. Ondansetron may be used for purposes not listed in this medication guide. What should I discuss with my health care provider before taking ondansetron? You should not use ondansetron if: you are also using apomorphine (Apokyn); or you are allergic to ondansetron or similar medicines (dolasetron, granisetron, palonosetron). To make sure ondansetron is safe for you, tell your doctor if you have: liver disease; an electrolyte imbalance (such as low levels of potassium or magnesium in your blood); congestive heart failure, slow heartbeats; a personal or family history of long QT syndrome; or a blockage in your digestive tract (stomach or intestines). Ondansetron is not expected to harm an unborn baby. Tell your doctor if you are . It is not known whether ondansetron passes into breast milk or if it could harm a nursing baby. Tell your doctor if you are breast-feeding a baby. Ondansetron is not approved for use by anyone younger than 4 years old. Ondansetron orally disintegrating tablets may contain phenylalanine. Tell your doctor if you have phenylketonuria (PKU). How should I take ondansetron? Follow all directions on your prescription label. Do not take this medicine in larger or smaller amounts or for longer than recommended. Ondansetron can be taken with or without food. The first dose of ondansetron is usually taken before the start of your surgery, chemotherapy, or radiation treatment. Follow your doctor's dosing instructions very carefully. Take the ondansetron regular tablet with a full glass of water. To take the orally disintegrating tablet (Zofran ODT): Keep the tablet in its blister pack until you are ready to take it. Open the package and peel back the foil. Do not push a tablet through the foil or you may damage the tablet. Use dry hands to remove the tablet and place it in your mouth. Do not swallow the tablet whole. Allow it to dissolve in your mouth without chewing. Swallow several times as the tablet dissolves. To use ondansetron oral soluble film (strip) (Zuplenz): Keep the strip in the foil pouch until you are ready to use the medicine. Using dry hands, remove the strip and place it on your tongue. It will begin to dissolve right away. Do not swallow the strip whole. Allow it to dissolve in your mouth without chewing. Swallow several times after the strip dissolves. If desired, you may drink liquid to help swallow the dissolved strip. Wash your hands after using Zuplenz. Measure liquid medicine with the dosing syringe provided, or with a special dose-measuring spoon ormedicine cup. If you do not have a dose-measuring device, ask your pharmacist for one. Store at room temperature away from moisture, heat, and light. Store liquid medicine in an upright position. What happens if I miss a dose? Take the missed dose as soon as you remember. Skip the missed dose if it is almost time for your next scheduled dose. Do not take extra medicine to make up the missed dose. What happens if I overdose? Seek emergency medical attention or call the Poison Help line at . Overdose symptoms may include sudden loss of vision, severe constipation, feeling light-headed, or fainting. What should I avoid while taking ondansetron? Ondansetron may impair your thinking or reactions. Be careful if you drive or do anything that requires you to be alert. What are the possible side effects of ondansetron? Get emergency medical help if you have signs of an allergic reaction: rash, hives; fever, chills, difficult breathing; swelling of your face, lips, tongue, or throat. Call your doctor at once if you have: severe constipation, stomach pain, or bloating; headache with chest pain and severe dizziness, fainting, fast or pounding heartbeats; fast or pounding heartbeats; jaundice (yellowing of the skin or eyes); blurred vision or temporary vision loss (lasting from only a few minutes to several hours); high levels of serotonin in the body--agitation, hallucinations, fever, fast heart rate, overactivereflexes, nausea, vomiting, diarrhea, loss of coordination, fainting. Common side effects may include: diarrhea or constipation; headache; drowsiness; or tired feeling. This is not a complete list of side effects and others may occur. Call your doctor for medical advice about side effects. You may report side effects to FDA at 1-616-EOK-8839. What other drugs will affect ondansetron? Ondansetron can cause a serious heart problem, especially if you use certain medicines at the same time, including antibiotics, antidepressants, heart rhythm medicine, antipsychotic medicines, and medicines to treat cancer, malaria, HIV or AIDS. Tell your doctor about all medicines you use, and those you start or stop using during your treatment with ondansetron. Taking ondansetron while you are using certain other medicines can cause high levels of serotonin to build up in your body, a condition called 'serotonin syndrome,' which can be fatal. Tell your doctor if you also use: medicine to treat depression; medicine to treat a psychiatric disorder; a narcotic (opioid) medication; or medicine to prevent nausea and vomiting. This list is not complete and many other drugs can interact with ondansetron. This includes prescription and btti-yzm-mnyugbs medicines, vitamins, and herbal products. Give a list of all your medicines to any healthcare provider who treats you. Where can I get more information? Your pharmacist can provide more information about ondansetron. Remember, keep this and all other medicines out of the reach of children, never share your medicines with others, and use this medication only for the indication prescribed. Every effort has been made to ensure that the information provided by [employer]') is accurate, up-to-date, and complete, but no guarantee is made to that effect. Drug information contained herein may be time sensitive. [employer] information has been compiled for use by healthcare practitioners and consumers in the [place] and therefore [employer] does not warrant that uses outside of the [place] are appropriate, unless specifically indicated otherwise. [employer] drug information does not endorse drugs, diagnose patients or recommend therapy. [employer] drug information isan informational resource designed to assist licensed healthcare practitioners in caring for their p atients and/or to serve consumers viewing this service as a supplement to, and not a substitute for, the expertise, skill, knowledge and judgment of healthcare practitioners. The absence of a warningfor a given drug or drug combination in no way should be construed to indicate that the drug or drug combination is safe, effective or appropriate for any given patient. [employer] does not assume any responsibility for any aspect of healthcare administered with the aid of information [employer] provides. The information contained herein is not intended to cover all possible uses, directions, precautions, warnings, drug interactions, allergic reactions, or adverse effects. If you have questions about the drugs you are taking, check with your doctor, nurse or pharmacist. Copyright 2094-4459 [employer]. Version: 16.01. Revision Date: 04/15/2023. albuterol inhalation (al BYOO ter all) ProAir HFA, ProAir RespiClick, Proventil HFA, Ventolin HFA What is the most important information I should know about albuterol inhalation? Follow all directions on your medicine label and package. Tell each of your healthcare providers about all your medical conditions, allergies, and all medicines you use. What is albuterol inhalation? Albuterol inhalation is a bronchodilator that is used to treat or prevent bronchospasm in people with reversible obstructive airway disease. Albuterol is also used to prevent exercise-induced bronchospasm. Albuterol inhalation is for use in adults and children at least 4 years old. Albuterol inhalation may also be used for purposes not listed in this medication guide. What should I discuss with my healthcare provider before using albuterol inhalation? You should not use this medicine if you are allergic to albuterol. You should not use ProAir RespiClick if you are allergic to milk proteins. Tell your doctor if you have ever had: heart disease, high blood pressure; a thyroid disorder; seizures; diabetes; or low levels of potassium in your blood. Tell your doctor if you are or plan to become . It is not known whether albuterol will harm an unborn baby. However, having uncontrolled asthma during may increase the riskof premature , low weight, or eclampsia (dangerously high blood pressure that can lead to medical problems in both mother and baby). The benefit of preventing bronchospasm may outweigh any risks to the baby. If you are , your name may be listed on a registry to track the effects of albuterol on the baby. It may not be safe to breastfeed while using this medicine. Ask your doctor about any risk. How should I use albuterol inhalation? Follow all directions on your prescription label and read all medication guides. Use the medicine exactly as directed. Do not allow a young child to use albuterol inhalation without help from an adult. To prevent exercise-induced bronchospasm, use this medicine 15 to 30 minutes before you exercise. The effects of albuterol inhalation should last about 4 to 6 hours. Seek medical attention if your breathing problems get worse quickly, or if you think your asthma medications are not working as well. Read and carefully follow any Instructions for Use provided with your medicine. Ask your doctor or pharmacist if you do not understand these instructions. ProAir HFA, Proventil HFA, or Ventolin HFA must be shaken before each use. You do not need to shakeProAir RespiClick before using. Do not try to clean or take apart the ProAir RespiClick inhaler device. Always use the new inhaler device provided with your refill. Do not float a medicine canister in water to see if it is empty. Your dose needs may change due to surgery, illness, stress, or a recent asthma attack. Do not change your dose or dosing schedule without your doctor's advice. Store at room temperature away from moisture, heat, or cold temperatures. Keep the cover on your ProAir RespiClick inhaler when not in use. Store Proventil or Ventolin with the mouthpiece down. Keep the inhaler canister away from open flame or high heat. The canister may explode if it gets too hot. Do not puncture or burn an empty inhaler canister. What happens if I miss a dose? Use the medicine as soon as you can, but skip the missed dose if it is almost time for your next dose. Do not use two doses at one time. Get your prescription refilled before you run out of medicine completely. What happens if I overdose? Seek emergency medical attention or call the Poison Help line at . An overdose of albuterol can be fatal. Overdose symptoms may include dry mouth, tremors, chest pain, fast heartbeats, nausea, general ill feeling, seizure, feeling light-headed or fainting. What should I avoid while using albuterol inhalation? Rinse with water if this medicine gets in your eyes. What are the possible side effects of albuterol inhalation? Get emergency medical help if you have signs of an allergic reaction: hives; difficult breathing; swelling of your face, lips, tongue, or throat. Call your doctor at once if you have: wheezing, choking, or other breathing problems after using this medicine; chest pain, fast heart rate, pounding heartbeats or fluttering in your chest; severe headache, pounding in your neck or ears; pain or burning when you urinate; high blood sugar--increased thirst, increased urination, dry mouth, fruity breath odor; or low potassium--leg cramps, constipation, irregular heartbeats, increased thirst or urination, numbness or tingling, muscle weakness or limp feeling. Common side effects may include: chest pain, fast or pounding heartbeats; upset stomach, vomiting; painful urination; dizziness; feeling shaky or nervous; headache, back pain, body aches; or cough, sore throat, sinus pain, runny or stuffy nose. This is not a complete list of side effects and others may occur. Call your doctor for medical advice about side effects. You may report side effects to FDA at 8-786-LBJ-1747. What other drugs will affect albuterol inhalation? Tell your doctor about all your other medicines, especially: any other inhaled medicines or bronchodilators; digoxin; a diuretic or 'water pill'; an antidepressant--amitriptyline, desipramine, imipramine, doxepin, nortriptyline, and others; a beta bradford--atenolol, carvedilol, labetalol, metoprolol, propranolol, sotalol, and others; or an MAO inhibitor--isocarboxazid, linezolid, methylene blue injection, phenelzine, rasagiline, selegiline, tranylcypromine, and others. This list is not complete. Other drugs may affect albuterol inhalation, including prescription and obeh-xxc-kneotsq medicines, vitamins, and herbal products. Not all possible drug interactions are listed here. Where can I get more information? Your pharmacist can provide more information about albuterol inhalation. Remember, keep this and all other medicines out of the reach of children, never share your medicines with others, and use this medication only for the indication prescribed. Every effort has been made to ensure that the information provided by [employer] is accurate, up-to-date, and complete, but no guarantee is made to that effect. Drug information contained herein may be time sensitive. [employer] information has been compiled for use by healthcare practitioners and consumers in the [place] and therefore [employer] does not warrant that uses outside of the [place] are appropriate, unless specifically indicated otherwise. [employer] drug information does not endorse drugs, diagnose patients or recommend therapy. [employer] drug information isan informational resource designed to assist licensed healthcare practitioners in caring for their p atients and/or to serve consumers viewing this service as a supplement to, and not a substitute for, the expertise, skill, knowledge and judgment of healthcare practitioners. The absence of a warningfor a given drug or drug combination in no way should be construed to indicate that the drug or drug combination is safe, effective or appropriate for any given patient. [employer] does not assume any responsibility for any aspect of healthcare administered with the aid of information [employer] provides. The information contained herein is not intended to cover all possible uses, directions, precautions, warnings, drug interactions, allergic reactions, or adverse effects. If you have questions about the drugs you are taking, check with your doctor, nurse or pharmacist. Copyright 7602-0580 [employer]. Version: 06.13. Revision Date: 07/31/2020. meclizine (KATHERINE amezcua) Antivert, Bonine, Bonine Max, Dramamine Less Drowsy, Dramamine Nausea Long Lasting, Travel-Ease What is the most important information I should know about meclizine? Use only as directed. Tell your doctor if you use other medicines or have other medical conditions or allergies. What is meclizine? Meclizine is used in adults and children aged 12 years and older to treat or prevent nausea, vomiting and dizziness caused by motion sickness. Meclizine is also used in adults to treat symptoms of vertigo (dizziness or spinning sensation) caused by disease that affects your inner ear. Meclizine may also be used for purposes not listed in this medication guide. What should I discuss with my healthcare provider before taking meclizine? You should not use meclizine if you are allergic to it. Do not give this medicine to anyone younger than 12 years old without medical advice. Tell your doctor if you have or have ever had: glaucoma; breathing problems such as asthma, emphysema, or chronic bronchitis; an enlarged prostate or urination problems; recently used alcohol, sedatives, or tranquilizers; or liver or kidney disease. Tell your doctor if you are or . How should I take meclizine? Follow all directions on your prescription label and read all medication guides or instruction sheets. Use the medicine exactly as directed. Swallow the tablet whole and do not crush, chew, or break it. You must chew the chewable tablet before you swallow it. To prevent motion sickness, take meclizine about 1 hour before you travel or anticipate having motion sickness. You may take meclizine once every 24 hours while you are traveling, to further prevent motion sickness. To treat vertigo, you may need to take meclizine several times daily. Follow your doctor's instructions. Store at room temperature away from moisture, heat, and light. What happens if I miss a dose? Meclizine is used when needed. If you are on a dosing schedule, skip any missed dose. Do not use two doses at one time. What happens if I overdose? Seek emergency medical attention or call the Poison Help line at . What should I avoid while taking meclizine? Avoid driving or hazardous activity until you know how this medicine will affect you. Your reactions could be impaired. Avoid drinking alcohol. Drinking alcohol with this medicine can cause side effects. What are the possible side effects of meclizine? Get emergency medical help if you have signs of an allergic reaction: hives, difficult breathing, swelling of your face, lips, tongue, or throat. Common side effects may include: drowsiness; dry mouth; headache; vomiting; or feeling tired. This is not a complete list of side effects and others may occur. Call your doctor for medical advice about side effects. You may report side effects to FDA at 5-351-PEQ-5152. What other drugs will affect meclizine? Using meclizine with other drugs that make you drowsy can worsen this effect. Ask your doctor before using opioid medication, a sleeping pill, a muscle relaxer, or medicine for anxiety or seizures. Sometimes it is not safe to use certain medicines at the same time. Some drugs can affect your blood levels of other drugs you use, which may increase side effects or make the medicines less effective. Other drugs may affect meclizine, including prescription and mdgz-civ-ichheba medicines, vitamins, and herbal products. Tell your doctor about all other medicines you use. Where can I get more information? Your doctor or pharmacist can provide more information about meclizine. Remember, keep this and all other medicines out of the reach of children, never share your medicines with others, and use this medication only for the indication prescribed. Every effort has been made to ensure that the information provided by [employer]') is accurate, up-to-date, and complete, but no guarantee is made to that effect. Drug information contained herein may be time sensitive. [employer] information has been compiled for use by healthcare practitioners and consumers in the [place] and therefore [employer] does not warrant that uses outside of the [place] are appropriate, unless specifically indicated otherwise. [employer]'s drug information does not endorse drugs, diagnose patients or recommend therapy. [employer] drug information isan informational resource designed to assist licensed healthcare practitioners in caring for their p atients and/or to serve consumers viewing this service as a supplement to, and not a substitute for, the expertise, skill, knowledge and judgment of healthcare practitioners. The absence of a warningfor a given drug or drug combination in no way should be construed to indicate that the drug or drug combination is safe, effective or appropriate for any given patient. [facility] does not assume any responsibility for any aspect of healthcare administered with the aid of information [facility] provides. The information contained herein is not intended to cover all possible uses, directions, precautions, warnings, drug interactions, allergic reactions, or adverse effects. If you have questions about the drugs you are taking, check with your doctor, nurse or pharmacist. Copyright 6083-4773 [facility]. Version: 8.01. Revision Date: 05/11/2023. Education Materials Dizziness (Uncertain Cause) Dizziness is a common symptom. It may be described as lightheadedness, spinning, or feeling like you are going to faint. Dizziness can have many causes. Be sure to tell the healthcare provider about: All medicines you take, including prescription, zvlh-zgv-qcefdre, herbs, and supplements Any other symptoms you have Any health problems you are being treated for Any past major health problems you've had, such as a heart attack, balance issues, hearing problems, or blood pressure problems Anything that causes the dizziness to get worse or better Today's exam did not show an exact cause for your dizziness. Other tests may be needed. Follow up with your healthcare provider. Home care Dizziness that occurs with sudden standing may be a sign of mild dehydration. Drink extra fluids for the next few days. If you recently started a new medicine, stopped a medicine, or had the dose of a current medicine changed, talk with the prescribing healthcare provider. Your medicine plan may need adjustment. If dizziness lasts more than a few seconds, sit or lie down until it passes. This may help prevent injury in case you pass out. Get up slowly when you feel better. Don't drive or use power tools or dangerous equipment until you have had no dizziness for at least 48 hours. Follow-up care Follow up with your healthcare provider for further evaluation within the next 7 days or as advised. When to seek medical advice Call your healthcare provider for any of the following: Worsening of symptoms or new symptoms Passing out or seizure Repeated vomiting Headache Palpitations (the sense that your heart is fluttering or beating fast or hard) Shortness of breath Blood in vomit or stool (black or red color) Weakness of an arm or leg or 1 side of the face Vision or hearing changes Trouble walking or speaking Chest, arm, neck, back, or jaw pain 5453-24[address] [employer]. [address] [place] [address]. All rights reserved. This information is not intended as a substitute for professional medical care. Always follow yourhealthcare professional's instructions. Additional Information VACCINATE! IT SAVES LIVES! Members of the community who have not yet received the COVID-19 vaccine and would like to receive it can visit one of [facility] vaccine clinics. There are many vaccine clinic locations within the [facility]. For locations and available times, please visit [email or web address] It is important to note that some COVID mobile vaccine clinics are held outdoors and may be canceled in rainy or stormy conditions. To learn more about pediatric vaccinations (ages 5-11), we invite you to visit the [facility] webpage. [email or web address] learn more about the COVID-19 vaccine, we invite you to visit the CDC website for a list of frequently asked questions. https://www.cdc.gov/coronavirus/2019-ncov/vaccines/faq.html [facility] Patient [facility] Access Instructions: Stay connected with your healthcare team and access your personal medical information anytime with the [facility] Patient Portal. If you would like a full copy of your medical records please contact the [facility] Medical Records Department Wednesday through Wednesday between 8a.m. and 4:30p.m. Please follow the directions below to access the portal: 1.Access the email account you provided upon registration to the hospital.2.Look for an invitation email from [facility].3.Open the email and access the invitation link: Accept Invitation to [facility]4.Fill in the required hester to create your account. Sign into [email or web address].[email or web address] with your username and password that you created in the above steps to stay up to date. You can then view a summary of results, a summary of your visits, and the ability to download your summaries to your computer or send the information securely to a physician. Remember that your healthcare information is confidential, so carefully consider who you will allow to register on the [facility] Portal for access to your information. You can also access the [facility] Portal on the [employer] [facility]. Simply click on Health Records under [facility] and then click on the [facility] logo. HOW TO SAFELY DISPOSE OF PRESCRIPTION MEDICATIONS Please use one of the following methods to safely dispose of your unused medications. 1.Use a drug disposal kit: the drug disposal pouch allows you to safely discard your old and unuseddrugs. Ask your nurse to give you one when you are discharged.2.Visit a local take-back location: Many local pharmacies and police departments have programs that collect old and unwanted prescriptiondrugs. Call your local pharmacy or go to [email or web address]/[email or web address] to find one close to you.3.Make use of household items: Use cat litter or old coffee grounds to dispose medications if other options arenot available. Mix your drugs with these household products, seal them in an airtight container andthrow it into the garbage. Call [facility]: [phone] to be sure your drugs can be disposed of in this way. Some medicines may require a different approach.4.Never flush your medications down the toilet. IF YOU HAVE BEEN PRESCRIBED AN OPIOIDS FOR PAIN If you have been prescribed an opioid (such as hydrocodone, oxycodone or morphine), it is critical to understand the possible side effects and risks of opioid pain medications. Even when taken as directed, opioids can have several side effects including: Tolerance, meaning you might need to take more of a medication for the same pain relief. Nausea, vomiting and/or constipation. Sleepiness, dizziness, dry mouth, confusion, depression or itching. Physical dependence, meaning you have wi (more content not included)... [facility]01-16-2024 Note ORIGINAL EXAMINATION: ONE XRAY VIEW OF THE CHEST09/28/2023 5:02 pm COMPARISON: 12/03/2022 HISTORY: ORDERING SYSTEM PROVIDED HISTORY: Reason for Exam: chest pain Left upper chest pain FINDINGS: The cardiomediastinal silhouette is within normal limits. Atherosclerotic calcification of the aortic knob. No significant pulmonary vascular congestion. The lungs appear mildly hyperinflated. Otherwise no focal consolidation, pneumothorax or large volume pleural effusion. Costochondral calcifications noted. There is a surgical clip within the right upper quadrant. No acute osseous abnormality. Right reverse shoulder arthroplasty. IMPRESSION: Hyperinflation bilaterally. Similar appearing reticular interstitial markings although correlate for any symptoms of bronchitis. I have personally reviewed the images of this examination and agree with the resident's findings and interpretation. Interpreted by: Jcarlos Brewer Preliminary Report By: Lola Akhtar Electronically signed By Jcarlos Brewer Dictated Date: 09/28/2023 5:15:29 PM Prelim Date: 09/28/2023 5:21:30 PM Sign Date: 09/28/2023 5:29:39 PM Ordering Provider: [facility]01-16-2024 Note ORIGINAL EXAMINATION: ONE XRAY VIEW OF THE PELVIS09/28/2023 5:03 pm COMPARISON: 08/21/2018 HISTORY: ORDERING SYSTEM PROVIDED HISTORY: Reason for Exam: fall Fall on sacrum, pain FINDINGS: No acute fracture or dislocation. The pelvic ring appears intact. The bilateral hip joints appear grossly unremarkable. Limited evaluation of the sacrum secondary to a large amount of overlying bowel gas. Surgical clips noted within the pelvis. Additional radiopaque densities, possibly representing anastomotic sutures, noted overlying the area of the right iliac crest. IMPRESSION: No acute fracture. I have personally reviewed the images of this examination and agree with the resident's findings and interpretation. Interpreted by: Jcarlos Brewer Preliminary Report By: Lola Akhtar Electronically signed By Jcarlos Brewer Dictated Date: 09/28/2023 5:21:43 PM Prelim Date: 09/28/2023 5:25:07 PM Sign Date: 09/28/2023 5:30:27 PM Ordering Provider: [address]16-2024 Note ORIGINAL EXAMINATION: CT OF THE HEAD WITHOUT CONTRAST09/28/2023 2:[address] HEAD/BRAIN WITHOUT CONTRAST EXAM DESCRIPTION: TECHNIQUE: CT of the head was performed without the administration of intravenous contrast. Automated exposure control, iterative reconstruction, and/or weight based adjustment of the mA/kV was utilized to reduce the radiation dose to as low as reasonably achievable. COMPARISON: CT head, June 23, 2022 HISTORY: ORDERING SYSTEM PROVIDED HISTORY: Reason for Exam: dizziness FINDINGS: The size, density, and morphology of the brain and CSF containing spaces appears normal. There is no evidence of mass, midline shift, hemorrhage, or infract. The ventricles, cortical sulci, and subarachnoid cisterns appear unremarkable. There are no extra-axial fluid collections. No regions of pathologic attenuation are evident. Regions of the orbits and paranasal sinuses included within the field of view are unremarkable. Decreased density periventricular white matter. There is no displaced fracture or osseous neoplasm. The extracalvarial soft tissues appear unremarkable. IMPRESSION: No acute intracranial pathology. COMMENT: Changes resultant from ischemia (even significant ischemia) may often be inapparent on CT exam, particularly if imaged early. Additionally, early changes due to neoplastic or inflammatory processes can be subtle to the extent that they are not prospectively noted. Therefore, if symptoms persist, or clinical suspicion for pathology remains, further evaluation may be obtained with MRI. Interpreted by: Nirmal Flores MD Preliminary Report By: Nirmal Flores MD Electronically signed By Nirmal Flores MD Dictated Date: 09/28/2023 5:01:33 PM Prelim Date: 09/28/2023 5:02:18 PM Sign Date: 09/28/2023 5:02:18 PM Ordering Provider: [facility] NoteSinus tachycardia Right atrial enlargement Right bundle branch block Compared to ECG at 12/03/2022 01:28:12 BORDERLINE ECG Electronic Signature: JOCELIN VALENTINE DO 09/28/2023 15:41:41[facility] 12-15-2023 History of Present illness Narrative* Peg Harris Tech - 08/27/2023 8:20 AM EST Radiology Service Progress Note PATIENT NAME: Albania Ramsey DATE OF SERVICE: August 27, 2023 TIME: 8:43 AM PATIENT IDENTITY VERIFICATION COMPLETED USING TWO (2) IDENTIFIERS: Name and Date of confirmedby patient verbally. FALL SCREENING: Has the patient had 2 falls in the last year or 1 fall with injury or currently using an Ambulatory Assistive Device (Walker, Cane, Wheelchair, Crutches, etc.)? No PATIENT GENDER DATA: Female. status: : No status: NO. PATIENT RELEVANT IMPLANT DATA REVIEWED: Not Applicable RADIOLOGY DEPARTMENT: General X-ray: Exam(s) Completed: Upper Extremity X- Ray(s): Shoulder,TRUE AP / AXILLARY / SUPRA OUTLET right PERIPHERAL IV DATA: Not applicable SIGNED BY: Kayla Fernández August 27, 2023 8:43 AM documented in this encounterJoint [facility]12-[facility]-2023 NoteHNO ID: [id number] Author: Peg Harris Tech Service: ? Author Type: Land Appraiser Type: Progress Notes Filed: 08/27/2023 8:44 AM Note Text: Radiology Service Progress Note PATIENT NAME: Albania Ramsey DATE OF SERVICE: August 27, 2023 TIME: 8:43 AM PATIENT IDENTITY VERIFICATION COMPLETED USING TWO (2) IDENTIFIERS: Name and Date of confirmed by patient verbally. FALL SCREENING: Has the patient had 2 falls in the last year or 1 fall with injury or currently using an Ambulatory Assistive Device (Walker, Cane, Wheelchair, Crutches, etc.)? No PATIENT GENDER DATA: Female. status: : No status: NO. PATIENT RELEVANT IMPLANT DATA REVIEWED: Not Applicable RADIOLOGY DEPARTMENT: General X-ray: Exam(s) Completed: Upper Extremity X-Ray(s): Shoulder,TRUE AP / AXILLARY / SUPRA OUTLET right PERIPHERAL IV DATA: Not applicable SIGNED BY: Kayla Fernández August 27, 2023 8:43 AMTrumbull [facility] [id number] Miscellaneous Notes* Telephone Encounter - Kiley Harris APRN.CNP - 08/26/2023 3:25 PM EST Phone call to patient to follow up on rescheduling her CT Chest. A diagnostic study was ordered dueto unexplained weight loss. She stated she was busy right now and they could call back later today to schedule her. Message sent to scheduling. She cancelled 07/16/2023 CT and No Showed 07/20/2023 CT. documented in this encounterJoint [facility]12-06-2023 Miscellaneous Notes* Telephone Encounter - Alivia Lozano APRN.CNP - 08/18/2023 1:46 PM EST Injection order signed off * Telephone Encounter - Isadora Rosas RN - 08/18/2023 9:48 AM EST Completing injection/procedure Consent Form. Injection Order: Right SI Injection CHONG: 06/18/2023 w/Dr. Taylor Per OV: Her pain is located in the left lumbar region and gluteal region and does not radiate SI joint: Positive left PSIS tenderness. Positive sacral thrust. Positive Gama's test Pain interventional procedure recommended: Left sacroiliac joint injection. The patient underwent right sacroiliac injection in 2014. We also discussed left L5- S1 lumbar facet injection as a future option. Injection/Procedure Laterality in question. Will clarify with Dr. Taylor. Awaiting clarification at this time. New injection order pended for provider review. Routing to provider. documented in this encounterJoint [facility]12-06-2023 History of Present illness Narrative* Nicolás Louis, PT - 08/18/2023 1:09 PM EST Episode Visit Count: 1 Therapist That Will Accept/Oversee The Plan Of Care: Nicolás Louis PT Start of Care Date: 08/18/23 Onset Date: 08/18/20 Plan of Care Certification Date: 08/18/23 Next Certification Due Date: 10/13/23 Patient Identified by Name and Date of : Yes REHABILITATION AND SPORTS THERAPY PHYSICAL THERAPY EVALUATION PLAN OF CARE: Assessment: Albania Ramsey presents with diagnosis of 2 weeks s/p R reverse total shoulder replacement that interferes with (Pt is unable to use R UE for any functional tasks). She presents with impairments in ADL's, independence in exercise, overall function, range of motion, soft tissue healing, strength, symptom management, tissue tenderness, and wound healing. PROMIS (Patient- Reported Outcomes Measurement Information System) scores were reviewed and physical function domain and self efficacy domain identified as a rehabilitation concern. Prognosis for therapy is Good due to: current objective clinical presentation, good overall health status, acuteness of condition, within-session changes. She will benefit from skilled therapy services to meet the goals established for this plan of care as noted below. Goals for Episode of Care: created on 08/18/23 through 10/13/23 [place] in home exercise program. Patient will decrease pain to 0/10 at rest and with functional activities to allow patient to improve reaching and lifting ADLs. Patient will increase active ROM of R shoulder to WFL, symmetrical and pain-free to allow pt to to improve performance of ADLs. Patient will demonstrate increase in R shoulder and UE strength to 5/5 during manual muscle testingin order to improve function for basic self-care tasks, home management tasks, and prior functionaltasks. Perform reaching, lifting and all basic ADLs without pain. Patient Goals: Regain prior functional status withou limitations with R UE. Planned Interventions, Frequency, and Duration: Current Frequency: 2x/week Duration: 8 weeks Total Number of Visits Planned: 16 Planned Treatment Interventions: Therapeutic exercise (61303), Neuromuscular re- education (45412), Therapeutic activities (64620), Self-group home management (41877), Manual therapy (02099), Gait Training (88984), Patient/Family/Caregiver Education, Body Mechanics Training PLAN FOR NEXT VISIT: Review, correct and progress HEP to tolerance and continue with active therex in PT following physician's post-op clinical guidelines. Start with gentle pain-free PROM, then AAROM(pullies and wand) and then AROM. Review use of cane if pt requests. Patient demonstrates good understanding of plan of care and treatment. The above goals and plan of care were discussed and agreed upon by patient/family. SUBJECTIVE: Pt is here 2 weeks s/p R reverse total shoulder replacement. She falls frequently without explanation and has landed on her R shoulder multiple times. She tore her RTC and therefore a reverse total shoulder replacement was recommended. She still falls and even fell 08/13/23 and landed on R shoulder.She reported this to referring provider and he wanted to see her if symptoms did not improve but pain has decreased since fall. See precautions and restrictions based on physician Practice Guideline. Patient Goals: Regain prior functional status withou limitations with R UE. Functional Limitations: (Pt is unable to use R UE for any functional tasks) Prior Level of Function: Independent without limitations Relevant History Past Relevant Medical Conditions: COPD, Asthma (emphysema, pt is on supplemental O2 around the clock) Past Relevant Surgical Conditions: Total Shoulder Replacement-Right (reverse TSA) Right or Left Handed: Left Employment: Unemployed Home Environment Patient Lives With: Family (lives with adult son that is able to assist her) Assistance Available: PRN Intake Information: Prescription present Previous Treatment: Surgery Falls Interview: Two or more falls in the last year, Fall with injury in the last year Falls Intervention: Instructed patient on safety and use of assistive device and awareness in regards to falls prevention. Pain: Pain Pain Level: 7 Pain Location: Shoulder - Right (not posterior aspect of shoulder) Description: Sharp Frequency: Continuous Post Treatment Pain Post Treatment Pain Level: No Change Post Treatment Pain Location: Shoulder - Right Post Treatment Symptoms: After session today, pt reported that her pain was unchanged but that her ROM was better and this encouraged her. PROMIS Scales Higher is Better 08/18/2023 Phys Func - Score 35 (moderate dysfunction) Phys Func - Percentile 7% Self-Eff Symptom - Score 38 (Low) Self-Eff Symptom - Percentile 12% T-scores: mean of general population = 50. 5 points is clinically meaningfully difference Percentiles provide an indication of how the patient's score ranks in relation to the general population. Higher percentile rankings indicate better function/quality of life. 50th percentile is the average of the general population and indicates half of respondents had a worse score. OBJECTIVE MEASURES WITH LEVEL OF FUNCTION: Shoulder Observations R Shoulder Palpation Tenderness: (Lateral aspect of R shoulder and upper arm. To a lesser extent, anterior R shoulder.) UE AROM R UE AROM: deferred UE PROM R UE PROM: supine (All R UE PROM is limited by pain) L UE PROM: supine R Shoulder Flex: 25 Degrees R Shoulder ABduction: 52 Degrees R Shoulder Internal Rotation: (to abdomen at 0 degrees of abduction) R Shoulder External Rotation: 16 Degrees (at 0 degrees of abduction) L Shoulder Flex: 172 Degrees L Shoulder ABduction: 171 Degrees L Shoulder Internal Rotation: 94 Degrees (90 degrees of abduction) L Shoulder External Rotation: 93 Degrees (90 degrees of abduction) UE and Cervical Strength R UE Strength: Pt's post-op status, reported and observed functional limitations, period of immobilization and her desire to regain prior functional status all indicate that she will benefit from increased functional strength of R shoulder. Education: Education Learning Preferences: Demonstration, Explanation, Performance, Printed Materials Barriers: None Learning/educational needs: Procedure / Surgery, Home exercise program, Plan of Care, Posture, BodyMechanics Education Provided: Yes, see treatment interventions for education provided Education Provided To: Patient Education Mode/Type: Demonstration, Explanation/Discussion, Literature/Printed Materials, Performance Response to Education/Teach Back: States/Identifies, Return Demonstration, Requires Review/Additional Education TREATMENT: PT Treatment Interventions: Therapeutic Exercise Evaluation Therapeutic Exercise: 1: Pt was educated on the anatomy of R shoulder, the likely etiology of symptoms, the rationale forthe rehab plan and reasonable expectations for her recovery. She was educated on the progression from PROM to AAROM to AROM. She was repeatedly advised to stop any exercise or actitivity that causes increased pain. Sling usage and all of physician guidelines were reviewed. 2: *supine R shoulder wand AAROM for flexion 2x5 3: *supine R shoulder wand AAROM for ER at 0 degrees of abduction 2x5. Skilled Intervention: Patient was educated in proper exercise technique and purpose for exercises. Reviewed and educated patient on additions/changes for home exercise program as above (*). Skilled judgment was used in selection of appropriate interventions. Provided written instruction for home exercise program to facilitate proper performance and compliance. Correct performance of therapeutic exercises was facilitated with verbal, visual, and tactile cuing. Patient education as noted. Billing * Evaluation Moderate Complexity: 1 Unit Therapeutic Exercise Treatment Minutes: 20 Skilled Treatment Time Minutes (timed and untimed codes): 50 Total Session Time (minutes): 50 Session Start Time : 0910 Session Stop Time : 1000 Nicolás Louis PT * Nicolás Louis PT - 08/18/2023 9:53 AM EST Program_ID:[id number] Access Code: [email or web address] URL: [email or web address] Date: 08-18-2023 Prepared By: Nicolás Louis Program Notes Exercises - Supine Shoulder Flexion Extension AAROM with Dowel - 3 x daily - 7 x weekly - 2 - 5 - Supine Shoulder External Rotation in 45 Degrees Abduction AAROM with Dowel - 3 x daily - 7 x weekly - 2 - 5 documented in this encounterJoint [facility]11-23-2023 NoteHNO ID: [id number] Author: Wilson Bey MD Service: Orthopaedic Surgery Author Type: Resident Type: Progress Notes Filed: 08/05/2023 6:51 AM Note Text: Orthopaedic Surgery Inpatient Progress Note Assessment Albania Ramsey is a 62 year old female who is POD #1 status-post right reverse TSA. Plan -management per Ortho -dressing/splints status: Mepilex x 7-10 days -Sling/swathe, No lifting greater than 5 lbs RUE, ok for passive ROM -pain control -DVT ppx: Early ambulation -post-operative antibiotics: Ancef x 2 ses -follow-up post-operative imaging - completed -diet: clears liquid diet advance diet as tolerated to regular diet -OT for sling training -disposition: DC home POD #1 after working with OT Subjective No acute events overnight. Pain present but controlled. No new numbness or tingling. No fevers, chills, chest pain, or shortness of breath. No new complaints. Physical Examination Vitals BP 113/68 Pulse 91 Temp 36.7 ?C (98.1 ?F) (Oral) Resp 18 Ht 170.2 cm (5' 7) Wt 51.3 kg (113 lb) SpO2 94% BMI 17.70 kg/m? General Alert. No acute distress. Cooperative with interview. Right Upper Extremity Dressing clean, dry, intact No swelling, ecchymosis, or erythema. No open wounds or lacerations. TTP about the right shoulder SILT Ax/M/U/R. Motor intact Ax/AIN/PIN/U. R/U pulses palpable; BCR all digits. Labs No results for input(s): NA, K, CHLOR, CO2, BUN, CREAT, GLUC, ANION, CA, MG, P, ALB, AST, ALT, ALKPHOS, TBILI, DBILI, PHOSINTL, WBC, HB, HCT, PLT, LACT, INR, PH, PCO2, PO2, BE, HCO3 in the last 72 hours. Invalid input(s): LISDBC Imaging Post op XR of the right shoulder shows stable placement of hardware s/p rTSA Wilson Bey MD Orthopaedic Surgery - PGY 3 6:13 AM 08/05/2023 Pager #[phone] [facility]11-22-2023 NoteHNO ID: [id number] Author: Digna Fowler APRN.REGISTERED NURSE SURGICAL SERVICES Service: ? Author Type: Nurse Mill Operator Type: Anesthesia Procedure Notes Filed: 08/04/2023 11:11 AM Note Text: ANESTHESIOLOGY PROCEDURE NOTE Airway General Information Procedure Start Time/Medication Administration: 08/04/2023 10:53 AM Patient location during procedure: OR Timeout Performed Pre-procedure: timeout performed Consent Obtained: Yes Patient identity confirmed: arm band, care sales team leader and patient Staffing Anesthesiologist: Yamil Steel MD REGISTERED NURSE SURGICAL SERVICES: Digna Fowler APRN.REGISTERED NURSE SURGICAL SERVICES Performed by: ANMOL Indications and Patient Condition Indications for airway management: anesthesia Preoxygenated: yes anesthesia circuit Patient position: sniffing Method: asleep Cricoid Pressure: No Airway Accessory: oral airway Final Airway Details Final airway type: endotracheal airway Final Endotracheal Airway: ETT Cuffed: yes Successful intubation technique: direct laryngoscopy Devices used: intubating stylet Endotracheal tube insertion site: oral Blade: Rom Blade size: #3 ETT size (mm): 7.0 Measured from: lips Measurement (cm): 21 Placement verified by: chest auscultation and capnometry Cormack-Lehane Classification: grade I - full view of glottis Number of attempts at approach: 1 Failed airway: no Unrecognized esophageal intubation: no Airway not difficult SIGNATURE: Digna Fowler APRN.REGISTERED NURSE SURGICAL SERVICES PATIENT NAME: Albania Ramsey DATE: August 04, 2023 TIME: 11:09 AM CSN: [id number] History of Present illness Narrative* Betzy Alejandro PA-C - 08/02/2023 8:49 AM EST Images from the original note were not included. Patient: Albania Ramsey PCP: Teresa Aguilar MD CC: follow up HPI: Albania Ramsey 62 year old female current 1/2 ppd smoker, former 2 ppd smoker with PMH significant for asthma/COPD bipolar disorder, schizophrenia, and history of PE. She has a long history of nocturnal oxygen use and albuterol to use as needed. More recently qualified for continuous oxygen. She has a history of COVID-pneumonia in November of this year. She was not hospitalized. Patient is scheduled for rotator cuff surgery with Dr. Jamison on 08/04/2023. Current therapy consists of Advair with as needed Albuterol. Today, patient reports daily cough no productive of yellow sputum. No hemoptysis. No wheezing. SOB is not an issue and does keep her from doing activities she wants to do. States she uses Albuterol at least twice daily. Currently smoking 1/2 ppd. Previously quit for 6 months on Chantix. Current wearing 2L supplemental oxygen with exertion and at nighttime. DME: [employer] PAST MEDICAL HISTORY Diagnosis Date Asthma Bipolar I disorder, most recent episode (or current) unspecified Blood dyscrasia Chronic obstructive pulmonary disease (COPD) (HCC) Dysthymic disorder Depression (non-psychotic) Lumbago Osteoarthritis Pulmonary embolus (HCC) 25 years prior Schizophrenia ([facility]) follows with Dr Bill at [facility] Snoring Tobacco use disorder 1/2 ppd since age of 11 Allergies: Demoral [Meperidine] Rash Desyrel [Trazodone * Rash Doxycycline Hives Erythromycin Rash Morphine Swelling Prednisone Rash fluticasone-salmeterol (ADVAIR DISKUS) 250-50 mcg/dose inhaler Inhale 1 Puff as instructed twice daily. mupirocin (BACTROBAN) 2 % ointment Apply twice daily to each nostril for five days pre-operatively.Start on 07/30/2023. melatonin 10 mg tab Take 1 tablet by mouth at bedtime as needed. QUEtiapine (SEROQUEL) 400 mg tablet take 2 tablets by mouth once daily at bedtime OXYGEN, HOME THERAPY, 2 L/min by Nasal Cannula route continuous. naproxen (NAPROSYN) 250 mg tablet Take 1 tablet by mouth every 12 hours. (Patient not taking: Reported on 07/21/2023) albuterol (PROVENTIL) 2.5 mg /3 mL (0.083 %) nebulizer solution Use 3 mL via nebulizer every 4 hours as needed for wheezing/shortness of breath. Use over 5-15minutes. pantoprazole DR (PROTONIX) 20 mg tablet Take 1 tablet by mouth daily before breakfast. Take on empty stomach, 1/2 hr before meal. cholecalciferol, Vitamin D3, (VITAMIN D3) 1,250 mcg (50,000 unit) cap capsule Take 1 capsule by mouth one time a week. mineral oil/hydrophil petrolatum (AQUAPHOR) oint Apply to affected area as needed. Apply liberally to area three times a day. (Patient not taking: Reported on 07/21/2023) benzonatate (TESSALON PERLES) 100 mg capsule Take 1 capsule by mouth three times daily as needed for Cough. guaiFENesin (ROBITUSSIN) 100 mg/5 mL syrup Take 10 mL by mouth three times daily as needed for Cough. (Patient not taking: Reported on 07/21/2023) lamoTRIgine (LAMICTAL) 150 mg tablet Take 1 tablet by mouth three times daily as needed. ondansetron orally disintegrating (ZOFRAN ODT) 4 mg disintegrating tablet Take 1 tablet by mouth every 6 hours as needed for Nausea/Vomiting. (Patient not taking: Reported on 07/21/2023) albuterol HFA (PROVENTIL HFA, VENTOLIN HFA) 90 mcg/actuation inhaler Inhale 2 Puffs as instructed every 4 hours as needed for Wheezing/Shortness of Breath. prazosin (MINIPRESS) 2 mg cap Take 2 mg by mouth daily at bedtime. sertraline (ZOLOFT) 50 mg tablet Take 50 mg by mouth once daily. Melatonin 5 mg tab Take 5 mg by mouth daily at bedtime. benztropine (COGENTIN) 1 mg tablet Take 1 mg by mouth twice daily. QUEtiapine (SEROQUEL) 300 mg tablet Take 300 mg by mouth daily at bedtime. (Patient not taking: Reported on 07/21/2023) Social History Tobacco Use Smoking status: Every Day Packs/day: 0.50 Years: 34.00 Additional pack years: 0.00 Total pack years: 17.00 Types: Cigarettes Start date: 10/02/1972 Smokeless tobacco: Never Tobacco comments: 2 ppd in past Vaping Use Vaping Use: Never used Substance Use Topics Alcohol use: No Drug use: No Family History Problem Relation Age of Onset Blood Disease Mother Diabetes Mother Colon Cancer Mother Breast Cancer Mother other (Bleeding disorder) Mother Cancer Father prostate Prostate Cancer Father Diabetes Sister Heart disease Sister other (HTN) Sister Stroke Sister other (Same issues as other sister) Sister Cervical Cancer Maternal Aunt Breast Cancer Other cousin PAST SURGICAL HISTORY Procedure Laterality Date APPENDECTOMY 1985 COLONOSCOPY FLX DX W/COLLJ SPEC WHEN PFRMD 10/19/2018 Colonoscopy COLONOSCOPY FLX DX W/COLLJ SPEC WHEN PFRMD 11/21/2019 Colonoscopy COLSC FLX W/RMVL OF TUMOR POLYP LESION SNARE TQ 04/19/2012 4 polyps - 3 yr follow up EGD TRANSORAL BIOPSY SINGLE/MULTIPLE 04/19/2012 gastritis ESOPHAGOGASTRODUODENOSCOPY TRANSORAL DIAGNOSTIC 11/21/2019 EGD EXC BREAST LES PREOP PLMT RAD MARKER OPEN 1 LES Left 11/18/2016 Mild duct ectasia, benign microcalcifications HERNIA REPAIR HX 90s Lt inguinal LAPAROSCOPY COLECTOMY PARTIAL W/ANASTOMOSIS 12/19/2018 laparscopic right hemicolectomy LAPAROSCOPY SURG CHOLECYSTECTOMY 1981 Cholecystectomy, lap LAPS ABD PRTM&OMENTUM DX W/WO SPEC BR/WA SPX Laparoscopy PAST SURGICAL HISTORY OF 10/27/2010 L5-S1 Microdisckectomy PAST SURGICAL HISTORY OF Left 11/18/2016 breast bx-Dr. Wise SURGICAL ARTHROSCOPY FAM W/CORACOACRM LIGM RLS Right 11/27/2020 Right shoulder arthroscopy, glenohumeral chondroplasty, biceps tenotomy, SAD TOTAL ABDOMINAL HYSTERECT W/WO RMVL TUBE OVARY 1981 Hysterectomy, VALDEMAR I reviewed the past medical history, family history, social history and surgical history with changes noted above and updated in EMR. IMMUNIZATIONS Prevnar - xx Pneumovax - 2005 Influenza - 08/02/2023 COVID-19 - most recent 08/2021 ROS: CONSTITUTIONAL: No fevers, chills, nightsweats. Gradual weight loss over the past year, approximately 48#. HEENT: Denies nasal congestion/sinus symptoms, allergy problems. EYES: No diplopia or blurry vision. CARDIOVASCULAR: No chest pain, palpitations, orthopnea, PND,edema. PULM: See HPI GI: No dysphagia/odynophagia, problematic reflux, constipation, diarrhea, changes in stool habits MUSC-SKEL: Right shoulder pain. PSY: No concerns regarding depression, anxiety INTEGUMENTARY: No new skin changes or rashes PHYSICAL EXAMINATION: BP (P) 102/64 Pulse 103 Resp 16 Ht 166.4 cm (5' 5.51) Wt 51.3 kg (113 lb) SpO2 91% BMI18.51 kg/m Gen: No acute distress. Cooperative with examination. Appears older than stated age. HEENT: Normocephalic. Sclera, conjunctiva clear. Edentulous. No thrush. Resp: No stridor, accessory respiratory muscle use, supra-sternal or intercostal retractions. No wheezes, crackles. CV: Regular rythm. Heart tones normal. Radial pulses normal. MSK: No kyphoscoliosis. Ext: Warm and well perfused. No clubbing, cyanosis, edema. Skin: No rash, ecchymoses. Neuro: Mental status normal. Affect normal. No tremor. DATA: Oximetry, 08/02/2023 Oximetry with Ambulation Test for This Encounter O2 Device O2 Adapter NC O2 Flow SpO2% HR Activity Ft Walked (ft) Time (min) Avg Speed (MPH) R/A 91 103 Resting R/A 87 108 Walking, usual pace 200 1.5 1.52 NC 2 93 100 Resting NC 2 90 108 Walking, usual pace 335 3 1.27 PFT, 08/02/2023 CXR, 06/08/2023 IMPRESSION: No acute radiographic abnormality. COMPARISON: Chest x-ray on 11/27/2020 RESULT: Lines, tubes, and devices: None. Lungs and pleura: The lungs are somewhat overexpanded. No consolidation. No lung mass. No pleural effusion. No pneumothorax. Cardiomediastinal silhouette: Normal cardiomediastinal silhouette. Bones and soft tissues: There are mild degenerative changes in the spine. ASSESSMENT/PLAN: 1. COPD, severe (HCC) - ICD9: 496, ICD10: J44.9 (primary diagnosis) Severe obstruction on PFTs today. Continue Advair twice daily. Rinse mouth after each use to help prevent oral thrush. Add Spiriva daily. Albuterol HFA inhaler, 2 inhalations 10-15 minutes prior to activities associated with shortness ofbreath, and as needed for rescue relief of shortness of breath or wheezing, up to 4 times daily. Influenza vaccine today. - SPIRIVA RESPIMAT 2.5 MCG/ACTUATION SOLUTION FOR INHALATION 2. Cigarette smoker - ICD9: 305.1, ICD10: F17.210 Cessation encouraged. Physiologic and physical aspects of tobacco addiction as well as strategies for quitting were discussed. Counseling was given focusing on the harmful effects of this addiction especially given the patient's medical condition(s) which will be worsened because of the chemicals in tobacco. 3. Unintentional weight loss - ICD9: 783.21, ICD10: R63.4 Patient to discuss further with PCP. 4. Chronic hypoxemic respiratory failure (HCC) - ICD9: 518.83, 799.02, ICD10: J96.11 Based on oximetry today, patient continues to require 2L supplemental oxygen with exertion. Continue nocturnal supplemental oxygen. Portions of this documentation were copied and pasted from previous office visit notes in order to provide a cohesive continuity of the history. The note has been reviewed and edited and updated as necessary. Betzy Alejandro PA-C documented in this encounterJoint [facility] Nurse Note* Funmilayo Diaz LPN - 08/02/2023 8:35 AM EST Intake information documented in the prior visit with RILEY Hassan today. documented in this encounterJoint [facility]11-[facility]23 Procedure note* Jina Sanches RPFT - 08/02/2023 8:35 AM ESTAssociated Order(s): OXIMETRY WITH AMBULATION RESPIRATORY THERAPY OXIMETRY WITH AMBULATION Oximetry with Ambulation Test for This Encounter O2 Device O2 Adapter NC O2 Flow SpO2% HR Activity Ft Walked (ft) Time (min) Avg Speed (MPH) R/A 91 103 Resting R/A 87 108 Walking, usual pace 200 1.5 1.52 NC 2 93 100 Resting NC 2 90 108 Walking, usual pace 335 3 1.27 General Information Pulse Oximetry Site Total Time Spent O2 Supply Carrier Walking Assistance/Device L Middle Finger 30 3 Wheel Walker None NAME: Jina RILEY Sanches PATIENT NAME: Albania Ramsey DATE: August 02, 2023 TIME: 8:35 AM Comment: documented in this encounterJoint [facility]11-20-2023 History of Present illness Narrative* Jina Sanches RPFT - 08/02/2023 8:32 AM EST PULM FUNCTION SMARTBLOCK: Provider: Tiki Loo MD Assisting Tech: Jina Sanches RPFT Spirometry w/BD: 1 DLCO: 1 LV - Box: 1 Oximetry - Ambulation: 1 documented in this encounterJoint [facility]11-09-2023 NoteHNO ID: [id number] Author: Miguel Ángel Herndon APRN.NEAL Service: ? Author Type: Nurse Practitioner Type: Progress Notes Filed: 07/22/2023 10:55 AM Note Text: Summary: Anesthesia RED DOT follow up Discussed case with Dr. Barajas - no pulmonary optimization needed, but patient may not be able to receive block and need overnight observation due to COPD and Oxygen dependent. Secure msg sent to surgeon. Miguel Ángel Herndon APRN.CNP Streit, Jonathan James, MD Cc: Juan Barajas MD Dr. Streit Albania was seen at pre-surgical testing 07/21/23, we discussed her casewith Dr. Barajas, and he recommended that she may not be able to get a block and she may need overnight observation given her history of COPD and O2 dependency. Thank you! Miguel Ángel Herndon APRN.CNP, [facility] NoteHNO ID: [id number] Author: Cande Gerardo APRN.CNP Service: ? Author Type: Nurse Practitioner Type: Progress Notes Filed: 07/21/2023 1:54 PM Note Text: RED DOT CC LEONARDA review anesthesia to see if pulmonary optimization is needed prior to surgical procedure. COPD and Oxygen dependent Patient has history of COPD, chronic hypoxic respiratory failure and asthma. Oxygen dependent at 2 L nasal cannula oxygen continuously. Currently followed by pulmonology -last office visit 05/31/2023. She is currently scheduled for pulmonary function tests August 02, 2023. In PAT today, respiratory assessment stable; patient sats 100% on 2 L oxygen nasal cannula. METS 5.5 Patient is scheduled for surgery with Dr. Jamison on 08/04/2023 at [facility] History of Present illness Narrative* Cande Gerardo APRN.CNP - 07/21/2023 1:47 PM EST RED DOT CC LEONARDA review anesthesia to see if pulmonary optimization is needed prior to surgical procedure. COPD and Oxygen dependent Patient has history of COPD, chronic hypoxic respiratory failure and asthma. Oxygen dependent at 2 L nasal cannula oxygen continuously. Currently followed by pulmonology -last office visit 05/31/2023.She is currently scheduled for pulmonary function tests August 02, 2023. In PAT today, respiratory assessment stable; patient sats 100% on 2 L oxygen nasal cannula. METS 5.5 Patient is scheduled for surgery with Dr. Jamison on 08/04/2023 at [facility] under [facility]. documented in this encounterJoint [facility]11-08-2023 History and physical note * Venkatas, Cande, TEACHER TUTOR.CLINICAL WRITER - 07/21/2023 1:40 PM EST HISTORY AND PHYSICAL EXAMINATION SERVICE DATE: 07/21/2023 SERVICE TIME: 1:40 PM PRIMARY CARE PHYSICIAN: Teresa Aguilar MD Assessment Patient has the following medical conditions which may affect annelise-operative course: Preop testing Assessment : See Note for medical conditions which may affect annelise-operative course was addressed in visit today. COPD with exacerbation (HCC) Assessment: Followed by Pulmonary - Albuterol as needed; Advair Diskus as scheduled. Use of 2 L nasal cannula oxygen continuously. Patient denies hospitalizations or pneumonia within 6 weeks. Requires oxygen therapy Assessment: Use of 2 L nasal cannula oxygen continuously Email communication sent to anesthesia office. Asthma Assessment: Followed by Pulmonary - Albuterol as needed; Advair Diskus as scheduled. Patient denieshospitalizations or pneumonia within 6 weeks. Essential (primary) hypertension Assessment: Taking prazosin History of pulmonary embolus (PE) Assessment: Patient reports history of PE 25 years ago. Chronic hypoxemic respiratory failure (HCC) Assessment: Followed by pulmonary-reduced on 2 L nasal cannula oxygen continuously. Today, PAT [id number]% on 2 L Lilly Activity Status Index: METS: Climb a flight of stairs or walk up a hill (5.50 METs) DASI Score: 5.5 (+SOBE) Patient denies any chest pain or undue shortness of breath with the above physical activity. Clinical Frailty Scale: 3. Well, with treated comorbid disease ARISCAT Score: Age: 51-80 Preoperative SpO2: >=96% Respiratory infection in the last month: No Preoperative anemia: No Surgical incision: peripheral Duration of surgery: 2-3 hrs Emergency procedure: No ARISCAT Score: 19 ANESTHESIA FINDINGS: Intubation History: No history of difficult intubation Significant Anesthesia Considerations: none Airway History: No history of difficult airway I - PHYSICAL EVALUATION AIRWAY Patient intubated: No. DENTAL Additional comments: +No teeth. II - ANESTHESIA PLAN Anesthetic Plan: general Beta Bradford Monitoring Plan Post Procedure Analgesic Plan REASON FOR VISIT: Albania Ramsey is a 62 year old female who is scheduled for Procedure(s) with comments: REVERSE TOTAL SHOULDER ARTHROPLASTY (Right) - General anesthesia / block at the request of Dr. Carolyn Jamison for routine H&P. My final recommendation will be communicated back to the requesting physician by way of shared medical record or letter. The reason for this visit is to perform a comprehensive review of the patient's past medical history, assess their current health status and obtain any additional testing required based on anesthesiaguidelines. We will also identify any potential anesthesia problems or contraindications to the planned procedure. Subjective The patient has the following: ACTIVE PROBLEM LIST Tobacco Use Disorder Acute Bronchitis With Chronic Obstructive Pulmonary Disease (Copd) (Hcc) Benign Paroxysmal Positional Vertigo Lumbago Bipolar I disorder, most recent episode (or current) depressed, severe, specified as with psychoticbehavior (HCC) Gerd (Gastroesophageal Reflux Disease) History of Lumbar Discectomy Lumbar Disc Displacement Without Myelopathy Ddd (Degenerative Disc Disease), Lumbar Lumbar Radiculopathy Lumbar Spondylosis Family History of Colon Cancer Special Screening for Malignant Neoplasms, Colon Benign Neoplasm of Colon Acute Gastritis Without Mention of Hemorrhage Sacroiliac Joint Dysfunction Peroneal Tendinitis of Left Lower Extremity Pes Cavus Congenital Forefoot Valgus Achilles Tendinitis Left Shoulder Pain Pain in Joint, Ankle and Foot Encounter for Screening Colonoscopy Abnormal Finding On Breast Imaging Chronic Right-Sided Low Back Pain With Right-Sided Sciatica Chronic Right Shoulder Pain Copd With Exacerbation (Hcc) Requires Oxygen Therapy Preop Testing Asthma Essential (Primary) Hypertension History of Pulmonary Embolus (Pe) Chronic Hypoxemic Respiratory Failure (Hcc) COVID-19 Immunization Status Overdue - Covid-19 Vaccine ( season) Overdue since 05/14/2023 09/03/2021 Imm Admin: COVID-19 original vaccine, full dose, monovalent (MODERNA) 02/19/2021 Imm Admin: COVID-19 original vaccine, full dose, monovalent (MODERNA) 01/15/2021 Imm Admin: COVID-19 original vaccine, full dose, monovalent (MODERNA) CHIEF COMPLAINT: Right shoulder HPI: Patient complains of right shoulder pain after fall a month ago. She further reports history of multiple falls in the past. Today, she rates the right shoulder pain as a 7 out of 10 on the numeric pain scale. She describes the pain as a constant aching pain. She cannot state what makes pain better at this time. After discussion with surgeon patient agreeable to surgical intervention. REVIEW OF SYSTEMS: General: No weight loss, malaise or fevers. Neurological: Negative for: headaches, seizures and strokes. Respiratory: Positive for: asthma, COPD and home oxygen. Patient is on 2 liters NC liter(s) of home O2. Negative for: current cough, pneumonia within 6 weeks and obstructive sleep apnea. Cardiovascular: +H/O PE Positive for: hypertension Negative for: arrhythmia, CAD, chest pain, CHF, hyperlipidemia and murmur/valvular heart disease. GI: Positive for: GERD Negative for: abdominal pain, nausea and vomiting. : No history of dysuria, frequency or incontinence, stones or chronic kidney disease. No difficulty urinating, nocturia > 1 time per night or hematuria. Endocrine: Negative for: diabetes mellitus and hypothyroidism. Hematology: No history of bleeding or clotting disorder. Patient is not taking anti-coagulation or platelet medications. No history of hematological symptoms or problems. Negative for: anemia and factor V Leiden. Oncology: No history of CA metastasis, chemo within 30 days, or radiotherapy within 90 days. No history of oncological symptoms or problems. Psych: Positive for: anxiety, bipolar disorder and depression. Negative for: ADD and ADHD. Musculoskeletal: See HPI. Skin: Negative for lesions, rash and itching. PAST MEDICAL HISTORY Diagnosis Date Asthma Bipolar I disorder, most recent episode (or current) unspecified Blood dyscrasia Chronic obstructive pulmonary disease (COPD) (HCC) Dysthymic disorder Depression (non-psychotic) Lumbago Osteoarthritis Pulmonary embolus (HCC) 25 years prior Schizophrenia (HCC) follows with Dr Bill at [facility] Snoring Tobacco use disorder 1/2 ppd since age of 11 PAST SURGICAL HISTORY Procedure Laterality Date APPENDECTOMY 1985 COLONOSCOPY FLX DX W/COLLJ SPEC WHEN PFRMD 10/19/2018 Colonoscopy COLONOSCOPY FLX DX W/COLLJ SPEC WHEN PFRMD 11/21/2019 Colonoscopy COLSC FLX W/RMVL OF TUMOR POLYP LESION SNARE TQ 04/19/2012 4 polyps - 3 yr follow up EGD TRANSORAL BIOPSY SINGLE/MULTIPLE 04/19/2012 gastritis ESOPHAGOGASTRODUODENOSCOPY TRANSORAL DIAGNOSTIC 11/21/2019 EGD EXC BREAST LES PREOP PLMT RAD MARKER OPEN 1 LES Left 11/18/2016 Mild duct ectasia, benign microcalcifications HERNIA REPAIR HX 90s Lt inguinal LAPAROSCOPY COLECTOMY PARTIAL W/ANASTOMOSIS 12/19/2018 laparscopic right hemicolectomy LAPAROSCOPY SURG CHOLECYSTECTOMY 1982 Cholecystectomy, lap LAPS ABD PRTM&OMENTUM DX W/WO SPEC BR/WA SPX Laparoscopy PAST SURGICAL HISTORY OF 10/27/2010 L5-S1 Microdisckectomy PAST SURGICAL HISTORY OF Left 11/18/2016 breast bx-Dr. Wise SURGICAL ARTHROSCOPY FAM W/CORACOACRM LIGM RLS Right 11/27/2020 Right shoulder arthroscopy, glenohumeral chondroplasty, biceps tenotomy, SAD TOTAL ABDOMINAL HYSTERECT W/WO RMVL TUBE OVARY 1981 Hysterectomy, VALDEMAR FAMILY HISTORY Problem Relation Age of Onset Blood Disease Mother Diabetes Mother Colon Cancer Mother Breast Cancer Mother other (Bleeding disorder) Mother Cancer Father prostate Prostate Cancer Father Diabetes Sister Heart disease Sister other (HTN) Sister Stroke Sister other (Same issues as other sister) Sister Cervical Cancer Maternal Aunt Breast Cancer Other cousin Social History Tobacco Use Smoking status: Every Day Packs/day: 0.50 Years: 34.00 Additional pack years: 0.00 Total pack years: 17.00 Types: Cigarettes Start date: 10/02/1972 Smokeless tobacco: Never Tobacco comments: 2 ppd in past Vaping Use Vaping Use: Never used Substance Use Topics Alcohol use: No Drug use: No Prior to Admission medications as of 07/21/23 1313 Medication Sig Last Dose Taking melatonin 10 mg tab Take 1 tablet by mouth at bedtime as needed. Taking Yes QUEtiapine (SEROQUEL) 400 mg tablet take 2 tablets by mouth once daily at bedtime Taking Yes fluticasone-salmeterol (ADVAIR DISKUS) 250-50 mcg/dose inhaler Inhale 1 Puff as instructed twice daily. Taking Yes OXYGEN, HOME THERAPY, 2 L/min by Nasal Cannula route continuous. Taking Yes albuterol (PROVENTIL) 2.5 mg /3 mL (0.083 %) nebulizer solution Use 3 mL via nebulizer every 4 hours as needed for wheezing/shortness of breath. Use over 5- 15minutes. Taking Yes pantoprazole DR (PROTONIX) 20 mg tablet Take 1 tablet by mouth daily before breakfast. Take on empty stomach, 1/2 hr before meal. Taking Yes cholecalciferol, Vitamin D3, (VITAMIN D3) 1,250 mcg (50,000 unit) cap capsule Take 1 capsule by mouth one time a week. Taking Yes benzonatate (TESSALON PERLES) 100 mg capsule Take 1 capsule by mouth three times daily as needed for Cough. Taking Yes lamoTRIgine (LAMICTAL) 150 mg tablet Take 1 tablet by mouth three times daily as needed. Taking Yes albuterol HFA (PROVENTIL HFA, VENTOLIN HFA) 90 mcg/actuation inhaler Inhale 2 Puffs as instructed every 4 hours as needed for Wheezing/Shortness of Breath. Taking Yes prazosin (MINIPRESS) 2 mg cap Take 2 mg by mouth daily at bedtime. Taking Yes sertraline (ZOLOFT) 50 mg tablet Take 50 mg by mouth once daily. Taking Yes Melatonin 5 mg tab Take 5 mg by mouth daily at bedtime. Taking Yes benztropine (COGENTIN) 1 mg tablet Take 1 mg by mouth twice daily. Taking Yes mupirocin (BACTROBAN) 2 % ointment Apply twice daily to each nostril for five days pre-operatively.Start on 07/30/2023. naproxen (NAPROSYN) 250 mg tablet Take 1 tablet by mouth every 12 hours. Patient not taking: Reported on 07/21/2023 Not Taking mineral oil/hydrophil petrolatum (AQUAPHOR) oint Apply to affected area as needed. Apply liberally to area three times a day. Patient not taking: Reported on 07/21/2023 Not Taking guaiFENesin (ROBITUSSIN) 100 mg/5 mL syrup Take 10 mL by mouth three times daily as needed for Cough. Patient not taking: Reported on 07/21/2023 Not Taking ondansetron orally disintegrating (ZOFRAN ODT) 4 mg disintegrating tablet Take 1 tablet by mouth every 6 hours as needed for Nausea/Vomiting. Patient not taking: Reported on 07/21/2023 Not Taking QUEtiapine (SEROQUEL) 300 mg tablet Take 300 mg by mouth daily at bedtime. Patient not taking: Reported on 07/21/2023 Not Taking No medication comments found. ALLERGIES Allergen Reactions Demoral [Meperidine] Rash Desyrel [Trazodone * Rash Doxycycline Hives Erythromycin Rash Morphine Swelling Prednisone Rash Objective PHYSICAL EXAM: General: alert and oriented and healthy appearance. Pertinent negatives noted - not distressed. Skin: normal color, no rash or lesions. HEENT: EOM intact. Cardiovascular: regular rate and rhythm, normal S1 and S2, no rub, murmurs, or gallop. Respiratory: normal breath sounds, no wheezes or crackles. No chest wall deformity or tenderness. Abdomen: bowel sounds present. Extremities: no deformity, no edema or tenderness, no joint swelling or clubbing. Neurological: normal cognition and motor skills. Gait normal. No weakness or sensory deficit. PAIN ASSESSMENT: Pain Pain Level: 7 VITALS: BP 121/78 Pulse 95 Temp 96.8 Resp 18 Ht 5' 8 (1.73m) Wt 114 lb (51.7kg) SpO2 100[2 liters O2 NC]% BMI 17.34 kg/(m^2). Diagnostic tests reviewed for today's visit: Lab Value Units Date High Low HB No results within date range. HCT No results within date range. WBC No results within date range. PLT No results within date range. NA No results within date range. K No results within date range. GLUC No results within date range. BUN No results within date range. CREAT No results within date range. PTSEC No results within date range. INR No results within date range. APTT No results within date range. ALT No results within date range. AST No results within date range. TBILI No results within date range. TSH 1.380 mIU/L 06/08/2023 4.200 0.270 Lab Value Units Date High Low HCGQT No results within date range. UHCG No results within date range. HCG, BODY* No results within date range. Lab Value Units Date High Low ABORHD No results within date range. ABSCREEN No results within date range. Hemoglobin A1C (%) Date Value 05/10/2018 5.6 No results found for this or any previous visit (from the past 8760 hour(s)). No results found for this or any previous visit (from the past 93154 hour(s)). Prepared for Surgery: CONSULTS: Patient does not require consults for optimization at this time Planned Anesthetic: general The Following Tests/Procedures Have Been Initiated: Orders Placed This Encounter CBC Standing Status: Future Number of Occurrences: 1 Standing Expiration Date: 10/20/2023 BASIC METABOLIC PNL Standing Status: Future Number of Occurrences: 1 Standing Expiration Date: 10/20/2023 mupirocin (BACTROBAN) 2 % ointment Sig: Apply twice daily to each nostril for five days pre-operatively. Start on 07/30/2023. Dispense: 22 g Refill: 0 Implantable Devices: None Assessment/Plan 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.011] Chronic right shoulder pain [M25.511, G89.29] Impingement syndrome of right shoulder [M75.41] PLAN Planned Procedure: Procedure(s) with comments: REVERSE TOTAL SHOULDER ARTHROPLASTY (Right) - General anesthesia / block The Following Tests/Procedures Have Been Initiated: CBC and BMP ordered in epic by LEONARDA Instructions Given to Patient: Instructions located in the after visit summary. Hibiclens given and instructions provided. Mupirocin instructions given. Patient given verbal and written preop instructions and voices comprehension and compliance. I spent a total of 40 minutes on the date of the service which included preparing to see the patient, [id number] patient care, completing clinical documentation, obtaining and/or reviewing separately obtained history, performing a medically appropriate examination, counseling and educating the pat ient/family/caregiver, and ordering medications, tests, or procedures. SIGNATURE: Cande Gerardo APRN.CNP PATIENT NAME: Albania Ramsey DATE: July 21, 2023 TIME: 11:12 AM PAGER/CONTACT #: documented in this encounterJoint [facility]11-08-[facility]23 Instructions* Patient Instructions* Cande Gerardo APRN.CNP - 07/21/2023 11:12 AM EST PATIENT PREOPERATIVE INSTRUCTIONS Your surgeon has scheduled you for your procedure at this surgery center: [facility] [phone] [address] [facility][1]. [place] [phone] Please enter through the main entrance, and proceed to the blue elevators. The surgery center is located left of the blue elevators. Please read below carefully for your personalized instructions. Arrival Time for Surgery: DATE: 08/04/2023 Your surgeon's office will provide you with your ARRIVAL TIME for surgery. -If you have not received an arrival time by the afternoon before your surgery date, please follow up with your surgeon's office. - If you are scheduled for Wednesday surgery, please make sure you have your arrival time by Wednesday afternoon. -Please be aware that emergency situations arise, which may delay or change your surgical time. If this happens, your surgeon's office will notify you as soon as possible and regret any inconvenience. Dietary Restrictions: -Nothing to eat or drink after midnight except for a sip of water with approved medications. -This is important because if you do, your surgery may have to be cancelled Blood Thinning Medications: - Stop NSAIDS (Ibuprofen, Advil, Aleve, Motrin, Celebrex, Mobic, Voltaren, Diclofenac, etc.) 7 daysbefore surgery, as directed by your surgeon. -You may take Tylenol or pain medications that do not contain Aspirin or NSAIDs. - Stop Vitamin E, fish oil, multivitamins, Marijuana, CBD oil and other over the counter herbals and dietary supplements 7 days before surgery. ?-This would not apply to cancer patients who are prescribed Marinol or any other prescription formon marijuana or CBD. -IF YOU TAKE ANY OF THE FOLLOWING BLOOD THINNERS, PLEASE CONTACT YOUR SURGEON AND THE PHYSICIAN WHOPRESCRIBES IT FOR YOU IN ORDER TO GET PERIOPERATIVE INSTRUCTIONS SOON POSSIBLE. BLOOD THINNERS: Aspirin , Coumadin, Plavix, Eliquis, Pradaxa, Xarelto, Lovenox, Brilinta, Effient, Savaysa, Arixtra, etc Medications: Approved medications to take the morning of surgery with a sip of water: BP, Heart, thyroid, psych,seizure, and pain medications excluding NSAIDS. Use inhalers as prescribed. Please bring inhalers. Medications to be taken with small amount of fluid on the morning of surgery: If these are morning medications, go ahead and take: Approved medications to take the morning of surgery with a sip of water: BP, Heart, thyroid, psych, seizure, and pain medications excluding NSAIDS. Use inhalers as prescribed. Please bring inhalers. - If you take Phentermine anesthesia recommends you hold Phentermine 4 days before surgery. Preoperative Instructions for Patients with Diabetes Mellitus: Please follow up with the provider that manages your diabetes and how to prepare you for surgery. - Do not take the morning of surgery; Trajenta, Metformin, Actos/Pioglitazone and Amaryl/Glimepiride. - For the following Medications, please HOLD 2 DAYS PRIOR TO SURGERY: Glucotrol/Glipizide, Januvia/Sitagliptin, Glyburide, Prandin/Repaglinide, Starlix/Nateglinide, Symlin/Pramlintide, - For the following Medications, please HOLD 3 DAYS PRIOR TO SURGERY: Canagliflozin/Invokana, Dapagliflozin/Farxiga ,Empagliflozin/Jardiance, Invokamet/canagliflozin and metformin, Xigduo XR/ dapagliglozin and metformin, Glyxambi/ empagliflozin and metformin, Syndardy/ empagliflozin and metformin - For the following Medications, please HOLD 4 DAYS PRIOR TO SURGERY: Ertugliflozin/Steglatro - For the following Medications, please HOLD 7 DAYS PRIOR TO SURGERY: GLP-1 AGONIST: Adlyxin (lixisenatide), Bydureon BCise (exenatide suspension), Byetta (exenatide), Mounjaro (tirzepatide), Ozempic(semaglutide injection), Rybelsus (semaglutide tablets), Tanzeum (albiglutide), Trulicity (dulaglutide), Victoza (liraglutide), Wegovy (semaglutide), Saxenda (liraglutide) Insulin Medication Instructions: Please follow up with the provider that manages your Insulin and how to prepare you for surgery. If you start any new medications after today's visit, please contact the surgeon's office. Important Reminders: - You need a responsible person to stay and wait for you at the hospital or surgery center during your procedure. - If you are undergoing an outpatient procedure you must have someone drive you home and stay with you for 24 hours. Your surgery may be cancelled if you do not have someone to drive you home or takecare of you for 24 hours. - If you use CPAP/BIPAP, bring the machine with you to the surgery center. - If you are prescribed inhalers for breathing, continue using them AND bring them to the surgery center. - Candy, mints, gum and tobacco products are NOT permitted the morning of surgery. - Hearing aids, dentures and glasses may be worn the morning of surgery. - NO jewelry, body piercings, makeup, hairpins or contacts are to be worn the day of surgery. -Oral hygiene and a shower or bath is required the evening before or the morning of surgery. Use the [facility] wash supplied to you along with the instruction. - NO lotion, creams, powders or deodorants on the skin the day of surgery -Wear loose, comfortable clothing that will accommodate bandages. -Your length of stay will be determined by your surgeon - You will need to have someone else (Family or friend) drive you home once discharged from the hospital. You are not allowed to drive yourself home after surgery. - YOU MUST HAVE A RESPONSIBLE VEHICLE SAFETY INSPECTOR TAKE YOU HOME. A CRO, CAB OR UBER VEHICLE SAFETY INSPECTOR CANNOT BE [place]ADEA RESPONSIBLE VEHICLE SAFETY INSPECTOR. - We recommend that a responsible person stays with you overnight to take care of you. - You cannot stay in a hotel alone after outpatient surgery. You will not be permitted to have yoursurgery, if you do not have someone to take care of you. - If you have a stimulator, implant or pump that requires a remote please bring the remote with youday of surgery. --IF you are having a TOTAL KNEE, HIP REPLACEMENT OR ORTHOPEDIC SURGERY: -Orthopedic patients having surgery [facility] listed as outpatient should bring their walker into the building. -Orthopedic patients having surgery [facility] listed as to be admitted should leave their walkers in the car or with a family member If you develop symptoms such as a fever, cold, or flu, or have other changes to your health within TWO DAYS of scheduled surgery or the morning of surgery, please contact the surgery center above. Visitors to any [facility] facility: - An individual who is sick should not visit. - Visitors to patients with COVID-19 must follow these guidelines, which include wearing a mask, eye protection, gown and gloves. [facility]- Visitations are: - Visitation hours are from 7 a.m. to 9 p.m. - Pre- Surgery-Patients may have up to two visitors at a time. - PACU-Patients may have up to 1-2 visitors at a time. Personal Belongings: - Leave ALL valuables and money at home or with family members. - You will need a form of ID and insurance card to check in the morning of surgery. - You will have to wear a hospital gown during your stay but if you wish to bring undergarments forafter surgery you may. -If you do not have a copy of advance directives on file with us, please bring a copy with you on the day of surgery. If you already have an Advance Directive, please fax a copy to [phone] or email to for it to be added to your chart. If you do not have an Advance Directive, you can find the appropriate form and more information at [email or web address]. We recommend that youcomplete the Advance Directive form found on the website and bring it with you the day of your surgery. It can be witnessed and scanned into your chart that day. Cande Gerardo APRN.CNP 07/21/23 [facility] Hospital Discharge instructions Patient Education 06/26/2023 11:50:16 Viral Syndrome (Adult) Viral Syndrome (Adult) A viral illness may cause a number of symptoms such as fever. Other symptoms depend on the part of the body that the virus affects. If it settles in your nose, throat, and lungs, it may cause cough, sore throat, congestion, runny nose, headache, earache and other ear symptoms, or shortness of breath. If it settles in your stomach and intestinal tract, it may cause nausea, vomiting, cramping, and diarrhea. Sometimes it causes generalized symptoms like aching all over, feeling tired, loss of energy, or loss of appetite. A viral illness usually lasts anywhere from several days to several weeks, but sometimes it lasts longer. In some cases, a more serious infection can look like a viral syndrome in the first few days of the illness. You may need another exam and additional tests to know the difference. Watch for thewarning signs listed below for when to seek medical advice. Home care Follow these guidelines for taking care of yourself at home: If symptoms are severe, rest at home for the first 2 to 3 days. Stay away from cigarette smoke - both your smoke and the smoke from others. You may use twuy-ijw-vbifsqs acetaminophen or ibuprofen for fever, muscle aching, and headache, unless another medicine was prescribed for this. If you have chronic liver or kidney disease or ever had a stomach ulcer or gastrointestinal bleeding, talk with your healthcare provider before using these medicines. No one who is younger than 18 and ill with a fever should take aspirin. It may cause severe disease or . Your appetite may be poor, so a light diet is fine. Avoid dehydration by drinking 8 to 12, 8-ounce glasses of fluids each day. This may include water; orange juice; lemonade; apple, grape, and cranberry juice; clear fruit drinks; electrolyte replacement and sports drinks; and decaffeinated teas andcoffee. If you have been diagnosed with a kidney disease, ask your healthcare provider how much andwhat types of fluids you should drink to prevent dehydration. If you have kidney disease, drinking too much fluid can cause it build up in the your body and be dangerous to your health. Uadc-xzo-vuxhhix remedies won't shorten the length of the illness but may be helpful for symptoms such as cough, sore throat, nasal and sinus congestion, or diarrhea. Don't use decongestants if you have high blood pressure. Follow-up care Follow up with your healthcare provider if you do not improve over the next week. Call 911 Call 911 if any of the following occur: Convulsion Feeling weak, dizzy, or like you are going to faint Chest pain, or more than mild shortness of breath When to seek medical advice Call your healthcare provider right away if any of these occur: Cough with lots of colored sputum (mucus) or blood in your sputum Chest pain, shortness of breath, wheezing, or trouble breathing Severe headache; face, neck, or ear pain Severe, constant pain in the lower right side of your belly (abdominal) Continued vomiting (can t keep liquids down) Frequent diarrhea (more than 5 times a day); blood (red or black color) or mucus in diarrhea Feeling weak, dizzy, or like you are going to faint Extreme thirst Fever of 100.4 F (38 C) or higher, or as directed by your healthcare provider [id number] [employer]. [address] [place] [address], [place] [address]. All rights reserved. This information is not intended as a substitute for professional medical care. Always follow yourhealthcare professional's instructions. 06/26/2023 11:50:07 Earache Without Infection (Adult) Earache, No Infection (Adult) Earaches can happen without an infection. This occurs when air and fluid build up behind the eardrum causing a feeling of fullness and discomfort and reduced hearing. This is called otitis media witheffusion (OME) or serous otitis media. It means there is fluid in the middle ear. It is not the same as acute otitis media, which is typically from infection. OME can happen when you have a cold if congestion blocks the passage that drains the middle ear. This passage is called the eustachian tube. OME may also occur with nasal allergies or after a bacterial middle ear infection. The pain or discomfort may come and go. You may hear clicking or popping sounds when you chew or swallow. You may feel that your balance is off. Or you may hear ringing in the ear. It often takes from several weeks up to 3 months for the fluid to clear on its own. Oral pain relievers and ear drops help if there is pain. Decongestants and antihistamines sometimes help. Antibiotics don't help since there is no infection. Your doctor may prescribe a nasal spray to help reduce swelling in the nose and eustachian tube. This can allow the ear to drain. If your OME doesn't improve after 3 months, surgery may be used to drain the fluid and insert a small tube in the eardrum to allow continued drainage. Because the middle ear fluid can become infected, it is important to watch for signs of an ear infection which may develop later. These signs include increased ear pain, fever, or drainage from the ear. Home care The following guidelines will help you care for yourself at home: You may use lybu-eew-brzcvbs medicine as directed to control pain, unless another medicine was prescribed. If you have chronic liver or kidney disease or ever had a stomach ulcer or GI bleeding, talkwith your doctor before using these medicines. Aspirin should never be used in anyone under 18 years of age who is ill with a fever. It may cause severe liver damage. You may use kpge-ual-tuwnbuq decongestants such as phenylephrine or pseudoephedrine. But they are not always helpful. Don't use nasal spray decongestants more than 3 days. Longer use can make congestion worse. Prescription nasal sprays from your doctor don't typically have those restrictions. Antihistamines may help if you are also having allergy symptoms. You may use medicines such as guaifenesin to thin mucus and promote drainage. Follow-up care Follow up with your healthcare provider or as advised if you are not feeling better after 3 days. When to seek medical advice Call your healthcare provider right away if any of the following occur: Your ear pain gets worse or does not start to improve Fever of 100.4 F (38 C) or higher, or as directed by your healthcare provider Fluid or blood draining from the ear Headache or sinus pain Stiff neck Unusual drowsiness or confusion [id number] [employer] [address] [place] [address]. All rights reserved. This information is not intended as a substitute for professional medical care. Always follow yourhealthcare professional's instructions. Follow Up Care 06/26/2023 11:10:37 With:TERESA AGUILAR Address: [address], [place] [id number]- [facility] (1) When:2-4 days Comments:Schedule appointment as soon as possibleReturn to ED if symptoms worsenSee sheet. Return for symptoms as described [facility] 10-14-2023 Note Discharge Instructions Thank you for allowing [facility] to assist you with your healthcare needs. The following is importantdischarge information regarding your hospital visit. Diagnosis from Today's Visit Congestion Ear pain Viral syndrome What to Do Next Instructions from Your Care Team No qualifying data available. Post Acute Orders No qualifying data available. You Need to Schedule the Following Appointments Follow Up with TERESA AGUILAR When Within 2-4 days Why: Schedule appointment as soon as possible Return to ED if symptoms worsen See sheet. Return for symptoms as described Where: [address], [place] [address]- [facility] (1) Allergies Demerol HCl (Hives) Desyrel (blotches over body) predniSONE (stomach problems) erythromycin (rash) morphine (rash over body) doxycycline (Hives) Medications Please ask your primary doctor or pharmacist before taking any other medication not listed, including over the counter drugs, herbal medications, vitamins and or supplements as they may interact withyour home medications. What How Much When Why Instructions Last Dose New predniSONE (predniSONE 20 mg oral tablet) See instructions 3 po 1st dose then 1 po q12 Printed Prescription Unchanged acetaminophen-hydrocodone ([place] 325- 5 mg oral tablet) 1 tab(s) by mouth Every 6 hours Ankle sprain Duration: 2 Days Unchanged albuterol (ProAir HFA MDI (90 mcg/ inh) inhalation aerosol) 1 puff(s) by inhalation Four (4) times a day as needed for for wheezing Unchanged albuterol-ipratropium (DuoNeb 0.5 mg-2.5 mg/ 3 mL inhalation solution) 3 Milliliter by inhalation Four (4) times a day Unchanged benztropine (benztropine 1 mg oral tablet) 1 tab(s) by mouth Two (2) times a day Unchanged buPROPion (buPROPion 150 mg/ 24 hours (XL) oral tablet, extended release) 1 tab(s) by mouth Every 24 hours Unchanged escitalopram (Lexapro 5 mg oral tablet) 1 1/2 tablet by mouth Every day Unchanged fluticasone nasal (Flonase 50 mcg/ inh nasal spray) 1 spray(s) in the nose Two (2) times a day Upper respiratory infection in each nostril Unchanged lamoTRIgine (Lamictal 100 mg oral tablet) 1 tab(s) by mouth Once a day Unchanged lamoTRIgine (lamoTRIgine 100 mg oral tablet) 1 tab(s) by mouth Two (2) times a day Unchanged meloxicam (meloxicam 15 mg oral tablet) take 1 tablet by mouth once daily with food Unchanged Misc Medication (RA MELATONIN 10 MG TABLET) take 1 tablet by mouth at bedtime if needed Unchanged naproxen (Naprosyn 500 mg oral tablet) 1 tab(s) by mouth Twice daily with meals as needed for Pain Unchanged naproxen (Naprosyn 500 mg oral tablet) 1 tab(s) by mouth Twice daily with meals as needed for Pain Duration: 7 Days Unchanged omeprazole (NF) (omeprazole 20 mg oral delayed release capsule (NF)) 1 cap by mouth Once a day Unchanged prazosin (prazosin 1 mg oral capsule) 1 cap by mouth Three (3) times a day Unchanged QUEtiapine (SEROquel 300 mg oral tablet) 1 tab(s) by mouth Daily at bedtime Unchanged sertraline (sertraline 50 mg oral tablet) 1 tab(s) by mouth Every day Please take this list to your next doctor s visit. Bring all medications you take, including over the counter medications, herbals and other supplements with you to your doctor s visit. Patients and families are reminded to discard old lists and to update any records with all medication providers or retail pharmacies. Medication Leaflets prednisone (RDAHA [place] What is the most important information I should know about prednisone? You should not use prednisone if you have a fungal infection anywhere in your body. You should not stop using prednisone suddenly. Follow your doctor's instructions about tapering your dose. What is prednisone? Prednisone is a steroid that reduces inflammation in the body, and also suppresses your immune system. Prednisone is used to treat many different conditions such as hormonal disorders, skin diseases, arthritis, lupus, psoriasis, allergic conditions, ulcerative colitis, Crohn's disease, eye diseases, lung diseases, asthma, tuberculosis, blood cell disorders, kidney disorders, leukemia, lymphoma, multi ple sclerosis, organ transplant rejection, swelling from a brain tumor or injury. Prednisone may also be used for purposes not listed in this medication guide. What should I discuss with my healthcare provider before taking prednisone? You should not use prednisone if you are allergic to it, or if you have a fungal infection anywherein your body. Steroid medication can weaken your immune system, making it easier for you to get an infection or worsening an infection you already have. Tell your doctor about any illness or infection you've had within the past several weeks. Tell your doctor if you have ever had: heart problems, high blood pressure, or a heart attack; glaucoma or cataracts; herpes infection of the eyes; past or present tuberculosis; a parasite infection that causes diarrhea (such as threadworms); any illness that causes diarrhea; underactive thyroid; diabetes; a stomach ulcer, diverticulitis; a colostomy or ileostomy; osteoporosis or low bone mineral density (steroid medication can increase your risk of bone loss); low levels of calcium or potassium in your blood; cirrhosis or other liver disease; mental illness or psychosis; or a muscle disorder such as myasthenia gravis. Long-term use of steroids may lead to bone loss (osteoporosis), especially if you smoke or drink alcohol, if you do not exercise, or if you do not get enough vitamin D or calcium in your diet. It is not known whether this medicine will harm an unborn baby. Tell your doctor if you are or plan to become . You should not breastfeed while using prednisone. How should I take prednisone? Follow all directions on your prescription label and read all medication guides or instruction sheets. Your doctor may occasionally change your dose. Use the medicine exactly as directed. Prednisone is taken daily or every other day, depending on the condition being treated. You may need to take the medicine at a certain time of day. Follow your doctor's instructions about when and how often to take this medicine. Take with food if prednisone upsets your stomach. Measure liquid medicine carefully. Use the dosing syringe provided, or use a medicine dose-measuring device (not a kitchen spoon). Swallow the delayed-release tablet whole and do not crush, chew, or break it. Prednisone can weaken (suppress) your immune system, and you may get an infection more easily. [place]allyour doctor if you have signs of infection (fever, weakness, cold or flu symptoms, skin sores, diarrhea, frequent or recurring illness). If you have major surgery or a severe injury or infection, your prednisone dose needs may change. Make sure any doctor caring for you knows you are using this medicine. If you use this medicine long-term, you may need medical tests and vision exams. In case of emergency, wear or carry medical identification to let others know you use a steroid. You should not stop using prednisone suddenly. Follow your doctor's instructions about tapering your dose. Store at room temperature away from moisture, heat, and light. What happens if I miss a dose? Take the medicine as soon as you can, but skip the missed dose if it is almost time for your next dose. Do not take two doses at one time. What happens if I overdose? Seek emergency medical attention or call the Poison Help line at . High doses or long-term use of prednisone can lead to thinning skin, easy bruising, changes in bodyfat (especially in your face, neck, back, and waist), increased acne or facial hair, menstrual problems, impotence, or loss of interest in sex. What should I avoid while taking prednisone? Do not receive a 'live' vaccine while using prednisone. The vaccine may not work as well and may not fully protect you from disease. Live vaccines include measles, mumps, rubella (MMR), polio, rotavirus, typhoid, yellow fever, varicella (chickenpox), zoster (shingles), and nasal flu (influenza) vaccine. Avoid being near people who are sick or have infections. Call your doctor for preventive treatment if you are exposed to chickenpox or measles. These conditions can be serious or even fatal in peoplewho are using steroid medicine. Avoid drinking alcohol. What are the possible side effects of prednisone? Get emergency medical help if you have signs of an allergic reaction: hives; difficult breathing; swelling of your face, lips, tongue, or throat. Call your doctor at once if you have: muscle pain or weakness; blurred vision, tunnel vision, eye pain, or seeing halos around lights; severe depression, changes in personality, unusual thoughts or behavior; bloody or tarry stools, coughing up blood or vomit that looks like coffee grounds; swelling, rapid weight gain, feeling short of breath; irregular heartbeats; severe headache, pounding in your neck or ears; decreased adrenal gland hormones--muscle weakness, tiredness, diarrhea, nausea, menstrual changes, skin discoloration, craving salty foods, and feeling light- headed; or low potassium level--leg cramps, constipation, irregular heartbeats, fluttering in your chest, increased thirst or urination, numbness or tingling, muscle weakness or limp feeling. Prednisone can affect growth in children. Tell your doctor if your child is not growing at a normalrate while using this medicine. Common side effects may include: weight gain (especially in your face or your upper back and torso); increased appetite; mood changes, trouble sleeping; changes in your menstrual periods; problems with memory or thought; muscle or joint pain; weakness; headache, dizziness, spinning sensation; nausea, bloating, loss of appetite; slow wound healing; or acne, increased sweating, thinning skin, bruising, pinpoint spots under your skin. This is not a complete list of side effects and others may occur. Call your doctor for medical advice about side effects. You may report side effects to FDA at 9-139-ART-2786. What other drugs will affect prednisone? Sometimes it is not safe to use certain medications at the same time. Some drugs can affect your blood levels of other drugs you take, which may increase side effects or make the medications less effective. Tell your doctor about all your current medicines. Many drugs can affect prednisone, especially: bupropion; cyclosporine; digoxin; ketoconazole; an antibiotic; control pills or hormone replacement therapy; a diuretic or 'water pill'; insulin or oral diabetes medicine; a blood thinner--warfarin, Coumadin, Jantoven; or NSAIDs (nonsteroidal anti-inflammatory drugs)--aspirin, ibuprofen (Advil, Motrin), naproxen (Aleve), celecoxib, diclofenac, indomethacin, meloxicam, and others. This list is not complete and many other drugs may affect prednisone. This includes prescription and ovsf-mdn-wbzvchj medicines, vitamins, and herbal products. Not all possible drug interactions are listed here. Where can I get more information? Your pharmacist can provide more information about prednisone. Remember, keep this and all other medicines out of the reach of children, never share your medicines with others, and use this medication only for the indication prescribed. Every effort has been made to ensure that the information provided by [employer] ('[employer]') is accurate, up-to-date, and complete, but no guarantee is made to that effect. Drug information contained herein may be time sensitive. [employer] information has been compiled for use by healthcare practitioners and consumers in the [place] and therefore [employer] does not warrant that uses outside of the [place] are appropriate, unless specifically indicated otherwise. [employer] drug information does not endorse drugs, diagnose patients or recommend therapy. [employer] drug information isan informational resource designed to assist licensed healthcare practitioners in caring for their p atients and/or to serve consumers viewing this service as a supplement to, and not a substitute for, the expertise, skill, knowledge and judgment of healthcare practitioners. The absence of a warningfor a given drug or drug combination in no way should be construed to indicate that the drug or drug combination is safe, effective or appropriate for any given patient. [employer] does not assume any responsibility for any aspect of healthcare administered with the aid of information [employer] provides. The information contained herein is not intended to cover all possible uses, directions, precautions, warnings, drug interactions, allergic reactions, or adverse effects. If you have questions about the drugs you are taking, check with your doctor, nurse or pharmacist. Copyright 7191-7135 [employer]. Version: 10.. Revision Date: 12/08/2018. Education Materials Viral Syndrome (Adult) A viral illness may cause a number of symptoms such as fever. Other symptoms depend on the part of the body that the virus affects. If it settles in your nose, throat, and lungs, it may cause cough, sore throat, congestion, runny nose, headache, earache and other ear symptoms, or shortness of breath. If it settles in your stomach and intestinal tract, it may cause nausea, vomiting, cramping, and diarrhea. Sometimes it causes generalized symptoms like aching all over, feeling tired, loss of energy, or loss of appetite. A viral illness usually lasts anywhere from several days to several weeks, but sometimes it lasts longer. In some cases, a more serious infection can look like a viral syndrome in the first few days of the illness. You may need another exam and additional tests to know the difference. Watch for thewarning signs listed below for when to seek medical advice. Home care Follow these guidelines for taking care of yourself at home: If symptoms are severe, rest at home for the first 2 to 3 days. Stay away from cigarette smoke - both your smoke and the smoke from others. You may use htcg-ihz-cqthzsq acetaminophen or ibuprofen for fever, muscle aching, and headache, unless another medicine was prescribed for this. If you have chronic liver or kidney disease or ever had a stomach ulcer or gastrointestinal bleeding, talk with your healthcare provider before using these medicines. No one who is younger than 18 and ill with a fever should take aspirin. It may cause severe disease or . Your appetite may be poor, so a light diet is fine. Avoid dehydration by drinking 8 to 12, 8-ounce glasses of fluids each day. This may include water; orange juice; lemonade; apple, grape, and cranberry juice; clear fruit drinks; electrolyte replacement and sports drinks; and decaffeinated teas andcoffee. If you have been diagnosed with a kidney disease, ask your healthcare provider how much andwhat types of fluids you should drink to prevent dehydration. If you have kidney disease, drinking too much fluid can cause it build up in the your body and be dangerous to your health. Jlku-eeh-mafjjnf remedies won't shorten the length of the illness but may be helpful for symptoms such as cough, sore throat, nasal and sinus congestion, or diarrhea. Don't use decongestants if you have high blood pressure. Follow-up care Follow up with your healthcare provider if you do not improve over the next week. Call 911 Call 911 if any of the following occur: Convulsion Feeling weak, dizzy, or like you are going to faint Chest pain, or more than mild shortness of breath When to seek medical advice Call your healthcare provider right away if any of these occur: Cough with lots of colored sputum (mucus) or blood in your sputum Chest pain, shortness of breath, wheezing, or trouble breathing Severe headache; face, neck, or ear pain Severe, constant pain in the lower right side of your belly (abdominal) Continued vomiting (can t keep liquids down) Frequent diarrhea (more than 5 times a day); blood (red or black color) or mucus in diarrhea Feeling weak, dizzy, or like you are going to faint Extreme thirst Fever of 100.4 F (38 C) or higher, or as directed by your healthcare provider [id number] [employer]. [address] [place] [address]. All rights reserved. This information is not intended as a substitute for professional medical care. Always follow yourhealthcare professional's instructions. Earache, No Infection (Adult) Earaches can happen without an infection. This occurs when air and fluid build up behind the eardrum causing a feeling of fullness and discomfort and reduced hearing. This is called otitis media witheffusion (OME) or serous otitis media. It means there is fluid in the middle ear. It is not the same as acute otitis media, which is typically from infection. OME can happen when you have a cold if congestion blocks the passage that drains the middle ear. This passage is called the eustachian tube. OME may also occur with nasal allergies or after a bacterial middle ear infection. The pain or discomfort may come and go. You may hear clicking or popping sounds when you chew or swallow. You may feel that your balance is off. Or you may hear ringing in the ear. It often takes from several weeks up to 3 months for the fluid to clear on its own. Oral pain relievers and ear drops help if there is pain. Decongestants and antihistamines sometimes help. Antibiotics don't help since there is no infection. Your doctor may prescribe a nasal spray to help reduce swelling in the nose and eustachian tube. This can allow the ear to drain. If your OME doesn't improve after 3 months, surgery may be used to drain the fluid and insert a small tube in the eardrum to allow continued drainage. Because the middle ear fluid can become infected, it is important to watch for signs of an ear infection which may develop later. These signs include increased ear pain, fever, or drainage from the ear. Home care The following guidelines will help you care for yourself at home: You may use heml-eid-yrpmhjo medicine as directed to control pain, unless another medicine was prescribed. If you have chronic liver or kidney disease or ever had a stomach ulcer or GI bleeding, talkwith your doctor before using these medicines. Aspirin should never be used in anyone under 18 years of age who is ill with a fever. It may cause severe liver damage. You may use iohs-dud-mnzrxae decongestants such as phenylephrine or pseudoephedrine. But they are not always helpful. Don't use nasal spray decongestants more than 3 days. Longer use can make congestion worse. Prescription nasal sprays from your doctor don't typically have those restrictions. Antihistamines may help if you are also having allergy symptoms. You may use medicines such as guaifenesin to thin mucus and promote drainage. Follow-up care Follow up with your healthcare provider or as advised if you are not feeling better after 3 days. When to seek medical advice Call your healthcare provider right away if any of the following occur: Your ear pain gets worse or does not start to improve Fever of 100.4 F (38 C) or higher, or as directed by your healthcare provider Fluid or blood draining from the ear Headache or sinus pain Stiff neck Unusual drowsiness or confusion [id number] [employer]. [address] [place] [address]. All rights reserved. This information is not intended as a substitute for professional medical care. Always follow yourhealthcare professional's instructions. Additional Information VACCINATE! IT SAVES LIVES! Members of the community who have not yet received the COVID-19 vaccine and would like to receive it can visit one of [facility] vaccine clinics. There are many vaccine clinic locations within the [facility]. For locations and available times, please visit www.[email or web address].[email or web address]/. It is important to note that some COVID mobile vaccine clinics are held outdoors and may be canceled in rainy or stormy conditions. To learn more about pediatric vaccinations (ages 5-11), we invite you to visit the [facility] webpage. [email or web address].[email or web address]/pages/[email or web address]-Ybnts-Wbekrlsbbfd-Ygizdaryuw-Fdfvs-Pno stions.htmlTo learn more about the COVID-19 vaccine, we invite you to visit the CDC website for a list of frequently asked questions. https://www.cdc.gov/coronavirus/2019-ncov/vaccines/faq.html [facility] Patient Portal Access Instructions: Stay connected with your healthcare team and access your personal medical information anytime with the [facility] Patient Portal. If you would like a full copy of your medical records please contact the [facility] Medical Records Department Wednesday through Wednesday between 8a.m. and 4:30p.m. Please follow the directions below to access the portal: 1.Access the email account you provided upon registration to the special care hospital.2.Look for an invitation email from [facility].3.Open the email and access the invitation link: Accept Invitation to [facility]4.Fill in the required hester to create your account. Sign into www.[employer] with your username and password that you created in the above steps to stay up to date. You can then view a summary of results, a summary of your visits, and the ability to download your summaries to your computer or send the information securely to a physician. Remember that your healthcare information is confidential, so carefully consider who you will allow to register on the [facility] Patient Portal for access to your information. You can also access the [facility] Patient Portal on the [employer] leonarda. Simply click on Health Records under [employer] and then click on the [employer] logo. HOW TO SAFELY DISPOSE OF PRESCRIPTION MEDICATIONS Please use one of the following methods to safely dispose of your unused medications. 1.Use a drug disposal kit: the drug disposal pouch allows you to safely discard your old and unuseddrugs. Ask your nurse to give you one when you are discharged.2.Visit a local take-back location: Many local pharmacies and police departments have programs that collect old and unwanted prescriptiondrugs. Call your local pharmacy or go to http://PromptCare.Macheen/5U2Jh4y to find one close to you.3.Make use of household items: Use cat litter or old coffee grounds to dispose medications if other options arenot available. Mix your drugs with these household products, seal them in an airtight container andthrow it into the garbage. Call [facility]: [phone] to be sure your drugs can be disposed of in this way. Some medicines may require a different approach.4.Never flush your medications down the toilet. IF YOU HAVE BEEN PRESCRIBED AN OPIOIDS FOR PAIN If you have been prescribed an opioid (such as hydrocodone, oxycodone or morphine), it is critical to understand the possible side effects and risks of opioid pain medications. Even when taken as directed, opioids can have several side effects including: Tolerance, meaning you might need to take more of a medication for the same pain relief. Nausea, vomiting and/or constipation. Sleepiness, dizziness, dry mouth, confusion, depression or itching. Physical dependence, meaning you have withdrawal symptoms when a medication is stopped ? this can develop within a few days. KNOW YOUR RESPONSIBILITIES It is important to know exactly how much and how often to take the opioid pain medications you are prescribed. Never take opioids in higher amounts or more often than prescribed. Do not combine opioids with alcohol or other drugs that cause drowsiness, such as benzodiazepines, also known as benzos,including diazepam and alprazolam, muscle relaxants or sleep aids. Never sell or share prescriptionopioids. This is illegal. Store opioids in a secure place and out of reach of others (including children, family, friends and visitors). The last page(s) of this document has been signed and retained as a CHART COPY Signatures Patient Education Materials Viral Syndrome (Adult) Earache Without Infection (Adult) Medication Leaflets prednisone My discharge plan and instructions have been reviewed and explained to me and IROXY LINDA C understand my current condition and have read and understand these discharge instructions. I have received a written copy of the plan/instructions. If I have questions, I am aware that I should contact my doctor. 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 Patient is already scheduled for 08-11-2023. Thank you. Flores Allen * Telephone Encounter - Flores Restrepo - 06/25/2023 9:58 AM EDT Patient is scheduled for surgery on 08-04-2023. SHe needs to be seen in post-op physical therapy approximately 1 week post-op. Please reach out and assist with scheduling postop physical therapy. Thank you. Flores Allen [facility]* Vira Perez Ma - 06/18/2023 10:45 AM EDT Patient scheduled for injection during today's OV. Patient scheduled for: 07/22/23 Reviewed instructions. Hold the following medication(s): - Aleve or any other NSAIDS for 5 days prior Instructions discussed during OV and paper copy of instructions handed to patient. Patient verbalized understanding. [facility] History of Present illness Narrative* Adolph Taylor MD - 06/18/2023 9:42 AM EDT [facility] Date: June 18, 2023 - 9:42 AM Albania Ramsey is seen in consultation requested by Nga Ferrer for an opinion regarding chroniclower back pain. My final recommendations will be communicated back to the requesting physician by way of shared medical record or via US mail. Chief Complaint: left lower back pain SUBJECTIVE: Albania Ramsey, is a 62 year old female with history of lumbar surgery who presents with lower backpain. The pain started years ago, with no known injury or trauma. The pain onset was gradual. The patient states that the current pain is persistent. Her pain is located in the left lumbar region andgluteal region and does not radiate.. // The pain is described as dull. The pain intensity is rated 4. The pain is exacerbated by twisting, lifting, and bending over and relieved by application of heat and application of cold. Symptoms interfere with physical activity, work, walking, sleeping, sitting, bathing, driving, cooking, householdcleaning, reaching for shelves, lifting, and social activities. 100% pain in spine vs 0% (radiating) pain in the extremity. Litigation: No. Worker's Compensation: No. Prior pain treatment has included: - Medications: Aleve and naproxen with partial relief. - Injections: SI injection in the past with no relief. ALLERGIES Allergen Reactions Demoral [Meperidine] Rash Desyrel [Trazodone * Rash Doxycycline Hives Erythromycin Rash Morphine Swelling Prednisone Rash Current Medications: Pain medications reviewed and reconciled in the medication list: Yes. Current Outpatient Medications Medication Sig fluticasone-salmeterol (ADVAIR DISKUS) 250-50 mcg/dose inhaler Inhale 1 Puff as instructed twice daily. OXYGEN, HOME THERAPY, 2 L/min by Nasal Cannula route continuous. cyclobenzaprine (FLEXERIL) 10 mg tablet Take 10 mg by mouth three times daily. naproxen (NAPROSYN) 250 mg tablet Take 1 tablet by mouth every 12 hours. albuterol (PROVENTIL) 2.5 mg /3 mL (0.083 %) nebulizer solution Use 3 mL via nebulizer every 4 hours as needed for wheezing/shortness of breath. Use over 5-15minutes. pantoprazole DR (PROTONIX) 20 mg tablet Take 1 tablet by mouth daily before breakfast. Take on empty stomach, 1/2 hr before meal. cholecalciferol, Vitamin D3, (VITAMIN D3) 1,250 mcg (50,000 unit) cap capsule Take 1 capsule by mouth one time a week. mineral oil/hydrophil petrolatum (AQUAPHOR) oint Apply to affected area as needed. Apply liberally to area three times a day. benzonatate (TESSALON PERLES) 100 mg capsule Take 1 capsule by mouth three times daily as needed for Cough. guaiFENesin (ROBITUSSIN) 100 mg/5 mL syrup Take 10 mL by mouth three times daily as needed for Cough. lamoTRIgine (LAMICTAL) 150 mg tablet Take 1 tablet by mouth three times daily as needed. ondansetron orally disintegrating (ZOFRAN ODT) 4 mg disintegrating tablet Take 1 tablet by mouth every 6 hours as needed for Nausea/Vomiting. albuterol HFA (PROVENTIL HFA, VENTOLIN HFA) 90 mcg/actuation inhaler Inhale 2 Puffs as instructed every 4 hours as needed for Wheezing/Shortness of Breath. prazosin (MINIPRESS) 2 mg cap Take 2 mg by mouth daily at bedtime. sertraline (ZOLOFT) 50 mg tablet Take 50 mg by mouth once daily. Melatonin 5 mg tab Take 5 mg by mouth daily at bedtime. benztropine (COGENTIN) 1 mg tablet Take 1 mg by mouth twice daily. QUEtiapine (SEROQUEL) 300 mg tablet Take 300 mg by mouth daily at bedtime. No current facility-administered medications for this visit. PAST MEDICAL HISTORY Diagnosis Date Asthma Bipolar I disorder, most recent episode (or current) unspecified Blood dyscrasia Chronic obstructive pulmonary disease (COPD) (HCC) Dysthymic disorder Depression (non-psychotic) Lumbago Pulmonary embolus (HCC) 25 years prior Schizophrenia (HCC) follows with Dr Bill at [facility] Snoring Tobacco use disorder 1/2 ppd since age of 11 PAST SURGICAL HISTORY Procedure Laterality Date APPENDECTOMY 1985 COLONOSCOPY FLX DX W/COLLJ SPEC WHEN PFRMD 10/19/2018 Colonoscopy COLONOSCOPY FLX DX W/COLLJ SPEC WHEN PFRMD 11/21/2019 Colonoscopy COLSC FLX W/RMVL OF TUMOR POLYP LESION SNARE TQ 04/19/2012 4 polyps - 3 yr follow up EGD TRANSORAL BIOPSY SINGLE/MULTIPLE 04/19/2012 gastritis ESOPHAGOGASTRODUODENOSCOPY TRANSORAL DIAGNOSTIC 11/21/2019 EGD EXC BREAST LES PREOP PLMT RAD MARKER OPEN 1 LES Left 11/18/2016 Mild duct ectasia, benign microcalcifications HERNIA REPAIR HX 90s Lt inguinal LAPAROSCOPY COLECTOMY PARTIAL W/ANASTOMOSIS 12/19/2018 laparscopic right hemicolectomy LAPAROSCOPY SURG CHOLECYSTECTOMY 1982 Cholecystectomy, lap LAPS ABD PRTM&OMENTUM DX W/WO SPEC BR/WA SPX Laparoscopy PAST SURGICAL HISTORY OF 10/27/2010 L5-S1 Microdisckectomy PAST SURGICAL HISTORY OF Left 11/18/2016 breast bx-Dr. Wies SURGICAL ARTHROSCOPY FAM W/CORACOACRM LIGM RLS Right 11/27/2020 Right shoulder arthroscopy, glenohumeral chondroplasty, biceps tenotomy, SAD TOTAL ABDOMINAL HYSTERECT W/WO RMVL TUBE OVARY 1981 Hysterectomy, [place]DEMAR FAMILY HISTORY Problem Relation Age of Onset Blood Disease Mother Diabetes Mother Colon Cancer Mother Anesthesia Mother Breast Cancer Mother other (Bleeding disorder) Mother Cancer Father prostate Prostate Cancer Father Diabetes Sister Heart disease Sister other (HTN) Sister Stroke Sister other (Same issues as other sister) Sister Cervical Cancer Maternal Aunt Breast Cancer Other cousin Social History: Alcohol Use: No Tobacco Use: 0.5 packs/day, for 34 years. Types: Cigarettes Drug Use: No Employer And Job Title: None on file Years Of Education Completed: Not specified Marital Status: REVIEW OF SYSTEMS: Constitutional: (-) Fever (-) Night Sweats (-) Weight Gain (-) Weight Loss (+) Fatigue Cardiovascular: (-) Chest Pain (-) Palpitations (-) Lightheadedness (-) Swelling of Ankles (-) Hx Heart Surgery Respiratory: (+) Shortness of Breath (+) Cough (+) Wheezing (-) Snoring Gastrointestinal: (-) Incontinence (-) Abdominal Pain (-) Diarrhea (-) Constipation (-) Nausea/Vomiting (-) Heart Burn Endocrine: (-) Thyroid Disorder (-) Diabetes Hematologic: (-) Prolonged Bleeding (-) Easy Bruising Genitourinary: (-) Incontinence (-) Frequency (-) Urinary Urgency Skin: (-) Rashes (-) Itching (-) Other Lesions Neurologic: (-) Headache (-) Double Vision (-) Confusion (-) Paralysis (-) Vertigo (-) Syncope Psychiatric: (-) Depression (-) Anxiety (-) Delusions (-) Hallucinations (-) Suicidal Thoughts OARRS Report reviewed: Yes Narcotic Agreement reviewed and signed?: N/A Baseline Urine Toxicology obtained: N/A Urine Panel: Lab Results Component Value Date Cannabinoid Quant, Urine Duplicate request 06/02/2012 Cannabinoid Quant, Urine <16 06/02/2012 Benzoylecognine Quant, Urine Duplicate request 06/02/2012 Benzoylecognine Quant, Urine <24 06/02/2012 6-Acetylmorphine Quant, Urine <5 06/02/2012 Amphetamine Quant, Urine Duplicate request 06/02/2012 Amphetamine Quant, Urine <5 06/02/2012 Methamphetamine Quant, Urine Duplicate request 06/02/2012 Methamphetamine Quant, Urine <8 06/02/2012 Buprenorphine Quant, Urine <20 06/02/2012 Norbuprenorphine Quant, Urine <20 06/02/2012 Methadone Quant, Urine Duplicate request 06/02/2012 Methadone Quant, Urine <16 06/02/2012 EDDP Quant, Urine Duplicate request 06/02/2012 EDDP Quant, Urine <6 06/02/2012 Tramadol Quant, Urine Duplicate request 06/02/2012 Tramadol Quant, Urine <25 06/02/2012 Desmethyltramadol Quant, Urine Duplicate request 06/02/2012 Desmethyltramadol Quant, Urine <20 06/02/2012 Fentanyl Quant, Urine Duplicate request 06/02/2012 Fentanyl Quant, Urine <6 06/02/2012 Norfentanyl Quant, Urine Duplicate request 06/02/2012 Norfentanyl Quant, Urine <6 06/02/2012 Codeine Quant, Urine Duplicate request 06/02/2012 Codeine Quant, Urine <11 06/02/2012 Morphine Quant, Urine Duplicate request 06/02/2012 Morphine Quant, Urine <5 06/02/2012 Dihydrocodeine Quant, Urine Duplicate request 06/02/2012 Dihydrocodeine Quant, Urine 211 06/02/2012 Hydrocodone Quant, Urine Duplicate request 06/02/2012 Hydrocodone Quant, Urine 679 (H) 06/02/2012 Oxycodone Quant, Urine Duplicate request 06/02/2012 Oxycodone Quant, Urine <5 06/02/2012 Hydromorphone Quant, Urine Duplicate request 06/02/2012 Hydromorphone Quant, Urine 134 06/02/2012 Oxymorphone Quant, Urine Duplicate request 06/02/2012 Oxymorphone Quant, Urine <5 06/02/2012 Creatinine,Ur Pain [place] Duplicate request 06/02/2012 Creatinine,Ur Pain [place] 20-50 06/02/2012 Urine pH, Pain [place] Duplicate request 06/02/2012 Urine pH, Pain [place] 4-10 06/02/2012 Specific Sigel,Ur Pain [place] Duplicate request 06/02/2012 Specific Sigel,Ur Pain [place] >1.020 06/02/2012 Oxidants,Ur Duplicate request (A) 06/02/2012 Oxidants,Ur Negative 06/02/2012 Specimen Quality, Ur Pain [place] Duplicate request 06/02/2012 Specimen Quality, Ur Pain [place] Specimen quality results within acceptable limits. 06/02/2012 The pain panel was N/A OBJECTIVE: Performed in conjunction with observation. The patient was alert and oriented x3. The patient was in no acute distress. Lungs: Clear, negative for dyspnea or distress. CVR: Negative for SOB or peripheral edema. Neck: Supple. The range of motion was intact. Negative focal tenderness Back: Range of motion of the trunk was intact. Left lumbosacral tenderness.. SLR: Negative Facet Loading: Positive with axial loading and extension. SI joint: Positive left PSIS tenderness. Positive sacral thrust. Positive Gama's test Extremities: no reported edema or erythema. Motor: Negative focal deficits Sensory: Intact to light touch and sharp throughout the lower extremities bilaterally. Gait: Within normal limits Medical record and diagnostic tests reviewed for today's visit: The [facility] EMR was reviewed during thevisit IMAGING STUDIES: No new imaging studies were reviewed during this office visit. ASSESSMENT: (M51.36) Narrowing of lumbar intervertebral disc space Discussion: A discussion was entertained regarding multicomponent pain source. Discussed conservative options and focus on improvement of function and the concerns of ongoing or developing chronic pain. Discussed the rationale behind interventional approach and how it can facilitate improvement of pain but also diagnostic information that procedures provide. jail use of any opioid pain medication is discouraged in chronic benign pain. PLAN: 1. X-ray of the lumbar spine was reviewed with the patient. Findings were discussed. The patient has had temporary relief with sacroiliac joint injection in the past. Recommend proceeding with another injection as a diagnostic/therapeutic approach. 2. Pain interventional procedure recommended: Left sacroiliac joint injection. The patient underwent right sacroiliac injection in 2014. We also discussed left L5-S1 lumbar facet injection as a future option. 3. Flexeril 10 mg 1 p.o. 3 times daily as needed. 4. Counseled patient regarding the importance of activity modification and exercise. 5. Follow up: 1-2 months postinjection. The above plan and management options were discussed with patient. The patient is in agreement withthe above and verbalized understanding. I have discussed and confirmed the above treatment plan with the patient and I have reviewed the nurses notes and I am aware of the family/social history. I have confirmed ROS findings. Adolph Taylor MD 1. This document has been created with the use of voice recognition technology. It may contain inaccuracies: (e.g. misspellings, inaccurate syntax or word sense) that have escaped review. 2. The nurse practitioner, nursing staff and medical assistants are a major part of YOUR TREATMENT TEAM and will be handling your phone calls and inquiries, if any. Unless explicitly told otherwise at the time of your office visit, your study results and ensuing treatment plans will be discussed during your follow- up appointment. If you do not have a follow-up appointment and wish to discuss any issues, please set up an appointment. 3. It is my practice to not fill disability or any other insurance-related forms/documentation. Allof the office notes, study results, and other pertinent documentation generated as part of your evaluation will be available to you and to your Primary Care Physician (PCP). Use of this material to complete such forms will be at the discretion of your PCP/referring physician. June 18, 2023 cc: Nga Ferrer [address] [facility] [phone] Results of consultation to be transmitted via electronic medical record for those providers who practice within [facility] or with access to [employer] via MD Connect, or via letter. documented in this encounterJoint [facility]10-[facility]-2023 Miscellaneous Notes* Telephone Encounter - Vira Perez Ma - 06/17/2023 3:34 PM EDT Attempted to contact patient via telephone regarding upcoming NEW patient appointment with Dr. Hutchinson 06/18/23. [facility] relaying the message below: This is the [facility] calling regarding your upcoming appointment with Dr. Taylor. To avoid a delay in your care, please bring any radiology images that have been done outside of the[facility] on a disk to be viewed at your appointment. Dr. Taylor is an Interventional Pain Management provider specializing in the Spine. Please be aware that this appointment is a consult only and narcotics will NOT be prescribed. He treats with physicaltherapy, injections of the spine or joints, and non-narcotic medications. Dr. Taylor will not take over and manage any medications that are already being prescribed by another provider. Dr. Taylor does not fill disability or any other insurance-related forms/documentation documented in this [facility]10-05-2023 Miscellaneous Notes* Telephone Encounter - Charla Willingham - 06/17/2023 2:25 PM EDT Patient scheduled for adam on 08/11/23 * Telephone Encounter - Flores Restrepo - 06/17/2023 1:57 PM EDT Patient is scheduled for surgery on 08-04-[address] Jamison. Please reach out and assist with scheduling post-op physical therapy as she should be seen approximately 1 week post-op. Thank you. Flores Allen documented in this [facility]10-05-2023 Miscellaneous Notes* Addendum Note - Kimberlee Kennedy PA-C - 06/17/2023 11:32 AM EDTAddended by: KIMBERLEE KENNEDY on: 06/17/2023 11:32 AM Modules accepted: Orders documented in this [facility]09-29-2023 Miscellaneous Notes* Telephone Encounter - Kiley Harris APRN.CNP - 06/11/2023 12:48 PM EDT No answer and unable to leave a voicemail will send a letter notifying pt of negative x ray chest and WNL TSH. documented in this encounterJoint [facility]09-29-2023 History of Present illness Narrative* Carolyn Jamison MD - 06/11/2023 11:44 AM EDT PAIN EVALUATION 06/11/2023 1115 Pain Level: 8 Pain Location: Shoulder-Right Description: Sharp Frequency: Continuous Comments: SxHx: 11/27/2020, R-shoulder CSI:01/04/23 Encounter Diagnosis ICD-10-CM 1. Primary osteoarthritis of right shoulder M19.011 Albania Ramsey is a 62 year old woman referred for evaluation of pain in the right shoulder. This has been an ongoing problem for several years and not responsive to treatment including activity modification and medical management including corticosteroid injections. She also underwent arthroscopicdebridement and chondroplasty surgery in 2020 without significant improvement in symptoms. Relevanthistory of the current condition includes recent corticosteroid injection which provided her essentially no relief from her pain. Examination of the right shoulder demonstrates difficulty with lifting and rotating the arm due to pain. There is noticeable grade 4 out of 5 weakness in elevation and rotation. Positive provocative testing includes Addy test with painful giving way of the shoulder as well as cracking throughout passive and active range of motion of the shoulder. She has a painful arc of motion. Belly press test is strong but gives her pain. She cannot perform a liftoff behind the back. Reviewed radiographs of her right shoulder taken in the office today showing changes of osteoarthritis with a small inferior osteophyte on the inferior humeral head. Also reviewed her operative report from 2020 showing advanced changes of cartilage loss rate grade 3 out of 4 using the [employer] cl assification. Albania Ramsey presents today with persistent pain and weakness and restricted range of motion of the right shoulder due to advanced changes of osteoarthritis which appears to be worsening over time.Her rotator cuff strength is also suspicious for high-grade partial or full-thickness tearing whichmay have precipitated the persistent decline in function. Based on my evaluation today, I do not feel that nonsurgical interventions including physical therapy, activity modification, and medical management are likely to provide this patient with an acceptable level of improvement in functional useof the arm, nor significant pain relief. After thorough review of history, examination findings, and imaging, we discussed surgical intervention today which would be reverse total shoulder arthroplasty. I described the procedure in detail as well as the expected healing time of 3-6 months and physical therapy regimen following surgery, likely for much of this time. Informed consent was discussed in detail and signed in the office today. Significant risks of surgery including those of general anesthesia, and those from surgery including infection, nerve injury, bleeding, procedure failure and possible need for repeat procedure were all discussed at the time of consent. No guarantees as to the outcome of surgery were given or implied. Surgery will be scheduled for the next available date. Carolyn Jamison MD Shoulder & Elbow Surgeon Department of Orthopaedic Surgery [facility] documented in this encounterJoint Township District [facility]09-18-2023 Miscellaneous Notes* Telephone Encounter - Sheri Toth MA - 05/31/2023 11:53 AM EDT O2 order is ordered as a medication order. Script was faxed per TE 05/21/23 to [facility]. Received medical necessity form 05/25/23 from [facility] [facility]. Provider signed & nursing staff returned 05/25/23. Sheri Toth MA * Telephone Encounter - Funmilayo Diaz LPN - 05/31/2023 11:22 AM EDT Patient seen by Dr. Loo today for pulmonary consultation. She will be returning to the office fora formal ambulatory oximetry and oxygen titration study with respiratory therapy. She was seen in primary care 2 weeks ago, where she was found to be hypoxic with ambulation and orders were sent to [facility] per 05/21 telephone encounter. Patient has not heard from [facility] re: adjustments in home O2. May need to refax PCP orders until she is given formal evaluation with TRANSIT PLANNING DIRECTOR. Funmilayo Diaz LPN documented in this encounterJoint Township District [facility]09-18-2023 History of Present illness Narrative* Tiki Loo MD - 05/31/2023 11:00 AM EDT Images from the original note were not included. . [facility] [place] Note Patient name: Albania Ramsey PCP: Teresa Aguilar MD CC: SOB HPI: Albania Ramsey 62 year old female current 1/2 ppd smoker, former 2 ppd smoker with PMH significant for asthma and now probable COPD (no PFT on file), bipolar disorder, schizophrenia, history of PE, last seen in pulmonary clinic greater than 15 years ago for smoking cessation. She has a long history of nocturnal oxygen use and albuterol to use as needed. More recently qualified for continuousoxygen. She has a history of COVID-pneumonia in November of this year. She was not hospitalized. [place] she has been more short of breath. She has been using her albuterol every 4 hours. Just recently started on Advair discus approximately 2 weeks ago but has yet to notice marked improvement in her dyspnea. She has persistent wheezing, some cough with sputum production that is discolored. No history of hemoptysis or chest pain. Denies a history of recurrent bronchitis requiring antibiotics andsteroids. She has never been intubated nor hospitalized for her COPD/asthma. She cut back on her smoking and desires to quit. She not be able to use Chantix due to her psychiatric history. Discussed use of nicotine replacement. DME: [facility] [facility] L Labs: Component Ref Range & Units 6 mo ago WBC 3.70 - 11.00 k/uL 7.61 RBC 3.90 - 5.20 m/uL 5.09 Hemoglobin 11.5 - 15.5 g/dL 14.8 Hematocrit 36.0 - 46.0 % 45.8 MCV 80.0 - 100.0 fL 90.0 MCH 26.0 - 34.0 pg 29.1 MCHC 30.5 - 36.0 g/dL 32.3 RDW-CV 11.5 - 15.0 % 13.2 Platelet Count 150 - 400 k/uL 272 MPV 9.0 - 12.7 fL 10.5 Neutrophils % % 37.7 Abs Neut 1.45 - 7.50 k/uL 2.87 Lymphocytes % % 43.5 Abs Lymph 1.00 - 4.00 k/uL 3.31 Monocytes % % 13.0 Abs Price <0.87 k/uL 0.99 High Eosinophils % % 4.9 Abs Eosin <0.46 k/uL 0.37 Basophils % % 0.8 Abs Baso <0.11 k/uL 0.06 Immature Granulocytes % % 0.1 Abs Immature Gran <0.10 k/uL <0.03 NRBC /100 WBC 0.0 Absolute nRBC <0.01 k/uL <0.01 Diff Type Auto Component Ref Range & Units 6 mo ago 1 yr ago 5 yr ago Vitamin D 25 Hydroxy 31.0 - 80.0 ng/mL 22.6 Low 16.5 Low CM 12.4 Low Imaging / Diagnostic Studies: CXR 11/2022: Reported as normal PAST MEDICAL HISTORY Diagnosis Date Asthma Bipolar I disorder, most recent episode (or current) unspecified Blood dyscrasia Chronic obstructive pulmonary disease (COPD) (HCC) Dysthymic disorder Depression (non-psychotic) Lumbago Pulmonary embolus (HCC) 25 years prior Schizophrenia ([facility]) follows with Dr Bill at [facility] Snoring Tobacco use disorder 1/2 ppd since age of 11 ALLERGIES Allergen Reactions Demoral [Meperidine] Rash Desyrel [Trazodone * Rash Doxycycline Hives Erythromycin Rash Morphine Swelling Prednisone Rash fluticasone-salmeterol (ADVAIR DISKUS) 250-50 mcg/dose inhaler Inhale 1 Puff as instructed twice daily. OXYGEN, HOME THERAPY, 2 L/min by Nasal Cannula route continuous. cyclobenzaprine (FLEXERIL) 10 mg tablet Take 10 mg by mouth three times daily. naproxen (NAPROSYN) 250 mg tablet Take 1 tablet by mouth every 12 hours. albuterol (PROVENTIL) 2.5 mg /3 mL (0.083 %) nebulizer solution Use 3 mL via nebulizer every 4 hours as needed for wheezing/shortness of breath. Use over 5-15minutes. pantoprazole DR (PROTONIX) 20 mg tablet Take 1 tablet by mouth daily before breakfast. Take on empty stomach, 1/2 hr before meal. cholecalciferol, Vitamin D3, (VITAMIN D3) 1,250 mcg (50,000 unit) cap capsule Take 1 capsule by mouth one time a week. mineral oil/hydrophil petrolatum (AQUAPHOR) oint Apply to affected area as needed. Apply liberally to area three times a day. (Patient not taking: Reported on 01/16/2021) benzonatate (TESSALON PERLES) 100 mg capsule Take 1 capsule by mouth three times daily as needed for Cough. (Patient not taking: Reported on 11/14/2020) guaiFENesin (ROBITUSSIN) 100 mg/5 mL syrup Take 10 mL by mouth three times daily as needed for Cough. (Patient not taking: Reported on 11/14/2020) lamoTRIgine (LAMICTAL) 150 mg tablet Take 1 tablet by mouth three times daily as needed. ondansetron orally disintegrating (ZOFRAN ODT) 4 mg disintegrating tablet Take 1 tablet by mouth every 6 hours as needed for Nausea/Vomiting. (Patient not taking: Reported on 10/14/2020) albuterol HFA (PROVENTIL HFA, VENTOLIN HFA) 90 mcg/actuation inhaler Inhale 2 Puffs as instructed every 4 hours as needed for Wheezing/Shortness of Breath. prazosin (MINIPRESS) 2 mg cap Take 2 mg by mouth daily at bedtime. sertraline (ZOLOFT) 50 mg tablet Take 50 mg by mouth once daily. Melatonin 5 mg tab Take 5 mg by mouth daily at bedtime. benztropine (COGENTIN) 1 mg tablet Take 1 mg by mouth twice daily. QUEtiapine (SEROQUEL) 300 mg tablet Take 300 mg by mouth daily at bedtime. 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 2 cats FAMILY HISTORY Problem Relation Age of Onset Blood Disease Mother Diabetes Mother Colon Cancer Mother Anesthesia Mother Breast Cancer Mother other (Bleeding disorder) Mother Cancer Father prostate Prostate Cancer Father Diabetes Sister Heart disease Sister other (HTN) Sister Stroke Sister other (Same issues as other sister) Sister Cervical Cancer Maternal Aunt Breast Cancer Other cousin PAST SURGICAL HISTORY Procedure Laterality Date APPENDECTOMY 1985 COLONOSCOPY FLX DX W/COLLJ SPEC WHEN PFRMD 10/19/2018 Colonoscopy COLONOSCOPY FLX DX W/COLLJ SPEC WHEN PFRMD 11/21/2019 Colonoscopy COLSC FLX W/RMVL OF TUMOR POLYP LESION SNARE TQ 04/19/2012 4 polyps - 3 yr follow up EGD TRANSORAL BIOPSY SINGLE/MULTIPLE 04/19/2012 gastritis ESOPHAGOGASTRODUODENOSCOPY TRANSORAL DIAGNOSTIC 11/21/2019 EGD EXC BREAST LES PREOP PLMT RAD MARKER OPEN 1 LES Left 11/18/2016 Mild duct ectasia, benign microcalcifications HERNIA REPAIR HX 90s Lt inguinal LAPAROSCOPY COLECTOMY PARTIAL W/ANASTOMOSIS 12/19/2018 laparscopic right hemicolectomy LAPAROSCOPY SURG CHOLECYSTECTOMY 1982 Cholecystectomy, lap LAPS ABD PRTM&OMENTUM DX W/WO SPEC BR/WA SPX Laparoscopy PAST SURGICAL HISTORY OF 10/27/2010 L5-S1 Microdisckectomy PAST SURGICAL HISTORY OF Left 11/18/2016 breast bx-Dr. Wise SURGICAL ARTHROSCOPY FAM W/CORACOACRM LIGM RLS Right 11/27/2020 Right shoulder arthroscopy, glenohumeral chondroplasty, biceps tenotomy, SAD TOTAL ABDOMINAL HYSTERECT W/WO RMVL TUBE OVARY 1981 Hysterectomy, VALDEMAR PMH, Social history, family history and surgical history reviewed and updated in EMR REVIEW OF SYSTEMS: CONSTITUTIONAL: No fevers, chills, nightsweats. Gradual weight loss over the past year HEENT: Denies nasal congestion/sinus symptoms, allergy problems. EYES: No diplopia or blurry vision. CARDIOVASCULAR: No chest pain, palpitations, orthopnea, PND,edema. PULM: See HPI GI: No dysphagia/odynophagia, problematic reflux, constipation, diarrhea, changes in stool habits : No urinary complaints, including dysuria, gross hematuria or pyuria. NEURO: No balance problems, peripheral weakness/paresthesias or numbness of concern. MUSC-SKEL: No joint pain, swelling, or erythema. PSY: No concerns regarding depression, anxiety INTEGUMENTARY: No new skin changes or rashes PHYSICAL EXAMINATION: Pulse 88 Resp 20 Wt 114 lb (51.7kg) SpO2 93% RA General Appearance: Appears older than her chronologic age, NAD. Skin: Skin color, texture, turgor normal, no suspicious rashes or lesions. Head: Normocephalic, no masses, lesions, tenderness or abnormalities. Eyes: Sclera, conjunctiva normal. Oropharynx: Edentulous, no oral lesions or thrush. Neck: No JVD, no masses, no thyromegaly Lungs: Not labored, normal to percussion, diminished breath sounds, diffuse wheezing Heart: Regular rate and rhythm, no murmurs or gallops. Extremities: No edema or clubbing. Musculoskeletal: No joint deformities or effusions. Neurologic: Alert and oriented, no focal findings. Lymph Nodes: No cervical lymphadenopathy and No supraclavicular lymphadenopathy. Assessment/Plan: 1. COPD -Clinical history most consistent with COPD -Continue Advair for now with potential change in therapy pending results of her pulmonary functiontesting 2. Cigarette smoker -Smoking cessation is paramount. Chantix contraindicated in light of her psychiatric history. Discussed use of nicotine replacement. -Patient qualifies for lung cancer screening and is interested in pursuing evaluation. Referral to lung cancer screening clinic 3. Chronic hypoxemic respiratory failure -Ambulation oximetry testing for titration Tiki Loo MD [facility] [place] documented in this encounterJoint [facility] District [facility] Hospital09-18-2023 Instructions* Patient Instructions* Funmilayo Diaz LPN - 05/31/2023 10:34 AM EDT [facility] documented in this encounterJoint Township District [facility] Hospital09-08-2023 Miscellaneous Notes* Telephone Encounter - Sheri Toth MA - 05/21/2023 1:27 PM EDT O2 for continuous order faxed to [employer]: [phone] with 05/21/23 OV notes. Sheri Toth MA documented in this encounterJoint Township District Memorial Hospital09-08-2023 History of Present illness Narrative* Josh Mirza APRN.[facility] - 05/21/2023 1:00 PM EDT Chief Complaint Patient presents with: Oxygen: Re-evaluation to continue oxygen therapy to be covered by insurance; currently only at night-needs continuous HPI Albania Ramsey is a 62 year old female who presents here today for Above Complaints. follow up for oxygen therapy. Patient here for COPD follow-up. Patient has a long history of COPD, smoker. She has consistently used oxygen 2 L nasal cannula at nighttime only. She is now noticing worsening symptoms during the day which is affecting her ADLs and other activity. Gives the example of just walking off her porch and getting short of breath. She discusses that she easily has a cough and wheeze. At this point she is 96% on room air at rest. She did receive a letter from her insurance company stating that her oxygen therapy would be discontinued if she did not have a [id number] with myself. She does not followwith pulmonology. Only has an albuterol inhaler and nebulizer at home. She is on no LABA/ICS. Past medical history, appointments, medications, allergies reviewed. EXAM: BP 122/75 Pulse 105 Temp 36.3 C (97.4 F) (Left Tympanic) Resp 24 Wt 51.9 kg (114 lb 6.4 oz) SpO2 96% BMI 17.39 kg/m General Appearance: Well appearing, alert, in no acute distress, well-hydrated, well nourished. andThin. Lungs: Positive findings: wheezing , rhonchi Shortness of breath: Upon exertion Cough. Heart: RRR without murmur, gallop, or rubs. No ectopy. Oximetry Ambulation Testing: Walking ambulation test performed with oximetry. Patient walked approximately for 2 and half minutes, approximately 150 feet. She exhibited shortness of breath had to sit down and rest. Respirations were 32. Oxygen level 85% on room air when ambulating. Heart rate 119 bpm. Testing terminated. ASSESSMENT/PLAN: 1. Chronic obstructive pulmonary disease, unspecified COPD type (HCC) - ICD9: 496, ICD10: J44.9 (primary diagnosis) -Worsening of disease. Refer to pulmonology, started on Advair. Order for continuous oxygen at 2 L nasal cannula day and night written. - CONSULT TO PULMONARY MEDICINE - FLUTICASONE 250 MCG-SALMETEROL 50 MCG[facility] (HOME THERAPY) 2. Oxygen dependent - ICD9: V46.2, ICD10: Z99.81 - see #1 - CONSULT TO PULMONARY MEDICINE - OXYGEN (HOME THERAPY) Josh Mirza APRN.CNP I spent a total of 32 minutes on the date of the service which included preparing to see the patient, [id number] patient care, completing clinical documentation, obtaining and/or reviewing separately obtained history, performing a medically appropriate examination, counseling and educating the pat ient/family/caregiver, and ordering medications, tests, or procedures. This note was partly generated using [employer] voice recognition dictation and may contain some misspelled or inaccurate words missed on review. documented in this encounterJoint Township District Memorial Hospital08-31-2023 Miscellaneous Notes* Telephone Encounter - Machelle Colon RN - 05/13/2023 2:30 PM EDT Patient calls and notified of results and providers instructions. Patient verbalizes understanding. Patient transferred to schedule consult to spinal medicine. Machelle Colon RN * Telephone Encounter - Nga Ferrer APRN.CNP - 05/13/2023 2:11 PM EDT Can you please call the patient and let her know that I reviewed her xray results. Xray of coccyx (tailbone) was normal. Xray of lumbar shows severe L5-S1 disc space narrowing which is consistent with arthritis. I would recommend a consult with spine medicine for further evaluation. She may continue with Naproxen. Consult has been placed. She may schedule at any time. Please me know if she has any questions. Thank you. Nga Ferrer APRN.CNP documented in this encounterJoint Township District Memorial Hospital08-31-2023 NoteIMPRESSION: SOME PROGRESSION OF DEGENERATIVE CHANGES Rubberizing Mechanic: QUYEN Transcribe Date/Time: May 13 2023 1:51P Dictated by : RAFIQ JENKINS MD This examination was interpreted and the report reviewed and electronically signed by: RAFIQ JENKINS MD on May 13 2023 1:57PM EST DIVISION OF [id number] NoteIMPRESSION: SOME PROGRESSION OF DEGENERATIVE CHANGES Rubberizing Mechanic: PSCB Transcribe Date/Time: May 13 2023 1:51P Dictated by : RAFIQ JENKINS MD This examination was interpreted and the report reviewed and electronically signed by: RAFIQ JENKINS MD on May 13 2023 1:57PM EST DIVISION OF [id number] History of Present illness Narrative* Nga Ferrer APRN.CLINICAL WRITER - 05/12/2023 10:20 AM EDT This is a 62 year old female who presents today with: Patient presents with: Follow Up: ER follow up HISTORY OF PRESENT ILLNESS: Albania Ramsey is a 62 year old female. Patient presents with: Follow Up: ER follow up HOSPITAL/ER FOLLOW UP: Reason for visit: Fall,Neck/Back Pain Which facility: [facility] ER Date of visit: 04/15/2023 Diagnosis: Fall, headache, strain of neck and low back muscles. Testing done: None. Treatment given: Given prescription for Flexeril 10 mg and naproxen 250 mg twice daily for 10 days. Current symptoms: Still having ongoing tailbone pain, pain with sitting prolonged periods. No difficulty walking. Left shoulder pain. Pain seems to wax and wane. Certain movements makes the pain worse. Still taking Naproxen and Flexeril which has been helpful. No x-rays were completed in the ER. PAST MEDICAL HISTORY: PAST MEDICAL HISTORY Diagnosis Date Asthma Bipolar I disorder, most recent episode (or current) unspecified Blood dyscrasia Chronic obstructive pulmonary disease (COPD) (HCC) Dysthymic disorder Depression (non-psychotic) Lumbago Obstructive chronic bronchitis with exacerbation (HCC) COPD Pulmonary embolus (HCC) 25 years prior Schizophrenia (HCC) follows with Dr Bill at [facility] Snoring Tobacco use disorder 1/2 ppd since age of 11 PAST SURGICAL HISTORY Procedure Laterality Date APPENDECTOMY 1986 COLONOSCOPY FLX DX W/COLLJ SPEC WHEN PFRMD 10/19/2018 Colonoscopy COLONOSCOPY FLX DX W/COLLJ SPEC WHEN PFRMD 11/21/2019 Colonoscopy COLSC FLX W/RMVL OF TUMOR POLYP LESION SNARE TQ 04/19/2012 4 polyps - 3 yr follow up EGD TRANSORAL BIOPSY SINGLE/MULTIPLE 04/19/2012 gastritis ESOPHAGOGASTRODUODENOSCOPY TRANSORAL DIAGNOSTIC 11/21/2019 EGD EXC BREAST LES PREOP PLMT RAD MARKER OPEN 1 LES Left 11/18/2016 Mild duct ectasia, benign microcalcifications HERNIA REPAIR HX 90s Lt inguinal LAPAROSCOPY COLECTOMY PARTIAL W/ANASTOMOSIS 12/19/2018 laparscopic right hemicolectomy LAPAROSCOPY SURG CHOLECYSTECTOMY 1981 Cholecystectomy, lap LAPS ABD PRTM&OMENTUM DX W/WO SPEC BR/WA SPX Laparoscopy PAST SURGICAL HISTORY OF 10/27/2010 L5-S1 Microdisckectomy PAST SURGICAL HISTORY OF Left 11/18/2016 breast bx-Dr. Wise SURGICAL ARTHROSCOPY FAM W/CORACOACRM LIGM RLS Right 11/27/2020 Right shoulder arthroscopy, glenohumeral chondroplasty, biceps tenotomy, SAD TOTAL ABDOMINAL HYSTERECT W/WO RMVL TUBE OVARY 1981 Hysterectomy, VALDEMAR ALLERGIES Demoral [Meperidine], Desyrel [Trazodone Hcl], Doxycycline, Erythromycin, Morphine, and Prednisone MEDICATIONS Current Outpatient Medications Medication Sig albuterol (PROVENTIL) 2.5 mg /3 mL (0.083 %) nebulizer solution Use 3 mL via nebulizer every 4 hours as needed for wheezing/shortness of breath. Use over 5-15minutes. pantoprazole DR (PROTONIX) 20 mg tablet Take 1 tablet by mouth daily before breakfast. Take on empty stomach, 1/2 hr before meal. cholecalciferol, Vitamin D3, (VITAMIN D3) 1,250 mcg (50,000 unit) cap capsule Take 1 capsule by mouth one time a week. OXYGEN, HOME THERAPY, 2 L/min by Nasal Cannula route daily at bedtime. mineral oil/hydrophil petrolatum (AQUAPHOR) oint Apply to affected area as needed. Apply liberally to area three times a day. (Patient not taking: Reported on 01/16/2021 ) benzonatate (TESSALON PERLES) 100 mg capsule Take 1 capsule by mouth three times daily as needed for Cough. (Patient not taking: Reported on 11/14/2020 ) guaiFENesin (ROBITUSSIN) 100 mg/5 mL syrup Take 10 mL by mouth three times daily as needed for Cough. (Patient not taking: Reported on 11/14/2020 ) lamoTRIgine (LAMICTAL) 150 mg tablet Take 1 tablet by mouth three times daily as needed. ondansetron orally disintegrating (ZOFRAN ODT) 4 mg disintegrating tablet Take 1 tablet by mouth every 6 hours as needed for Nausea/Vomiting. (Patient not taking: Reported on 10/14/2020 ) albuterol HFA (PROVENTIL HFA, VENTOLIN HFA) 90 mcg/actuation inhaler Inhale 2 Puffs as instructed every 4 hours as needed for Wheezing/Shortness of Breath. prazosin (MINIPRESS) 2 mg cap Take 2 mg by mouth daily at bedtime. sertraline (ZOLOFT) 50 mg tablet Take 50 mg by mouth once daily. Melatonin 5 mg tab Take 5 mg by mouth daily at bedtime. benztropine (COGENTIN) 1 mg tablet Take 1 mg by mouth twice daily. QUEtiapine (SEROQUEL) 300 mg tablet Take 300 mg by mouth daily at bedtime. No current facility-administered medications for this visit. FAMILY HISTORY Problem Relation Age of Onset Cancer Father prostate Prostate Cancer Father Blood Disease Mother Diabetes Mother Colon Cancer Mother Anesthesia Mother Breast Cancer Mother other (Bleeding disorder) Mother Allergies Sister Breast Cancer Other cousin Heart Sister Psychiatry Sister Cervical Cancer Maternal Aunt Diabetes Sister Coronary Artery Disease Sister Hypertension Sister Lipids Sister Stroke Sister Social History Tobacco Use Smoking status: Every Day Packs/day: 0.50 Years: 34.00 Additional pack years: 0.00 Total pack years: 17.00 Types: Cigarettes Start date: 10/02/1972 Smokeless tobacco: Never Vaping Use Vaping Use: Never used Substance Use Topics Alcohol use: No Drug use: No REVIEW OF SYSTEMS GENERAL: No weight loss, malaise or fevers/chills HEENT: Negative for frequent or significant headaches, No changes in hearing or vision. NECK: Negative for lumps, goiter, pain and significant neck swelling RESPIRATORY: Negative for cough, hemoptysis, wheezing, dyspnea or shortness of breath CARDIOVASCULAR: Negative for chest pain, leg swelling, orthopnea, or palpitations GI: No nausea, vomiting, or diarrhea/constipation. No hematochezia/melena. No heartburn or reflux symptoms. : No history of dysuria, frequency or incontinence MUSCULOSKELETAL: + Tailbone and left shoulder pain SKIN: Negative for lesions, rash, and itching ENDOCRINE: Negative for cold or heat intolerance, polyuria, polydipsia and goiter NEURO: No history of headaches, syncope, paralysis, seizures or tremors MOOD: Negative for depression, anxiety, or suicidal ideation. EXAM: BP 90/60 Pulse 86 Resp 16 Wt 51.3 kg (113 lb) SpO2 93% BMI 17.18 kg/m PHYSICAL EXAM: General Appearance: Well appearing, alert, in no acute distress, well-hydrated, well nourished. Skin: Skin color, texture, turgor normal, no suspicious rashes or lesions. Head: Normocephalic, no masses, lesions, tenderness or abnormalities. Eyes: Anicteric sclera. Pupils are equally round and reactive to light. Extraocular movements are intact. Extremities: No deformities, edema, skin discoloration, clubbing or cyanosis. Good capillary refill. Musculoskeletal: + Lumbar spine and tailbone very tender to palpation, no swelling or color change noted. Reduced ROM of spine and left shoulder. Left shoulder tender on medial scapula as well as trapezius. Negative empty cans and Apley's test. Peripheral Pulses: Normal, Capillary refill <2secs, strong peripheral pulses, Pulses palpable. Neurologic: Gait normal. Reflexes normal and symmetric. Sensation grossly intact. ASSESSMENT/PLAN: 1. Hospital discharge follow-up - ICD9: V67.59, ICD10: Z09 (primary diagnosis) - Still having in going pain since ER visit. 2. Fall, initial encounter - ICD9: E888.9, ICD10: W19.XXXA - Same plan as #1. 3. Acute pain of left shoulder - ICD9: 719.41, ICD10: M25.512 - Get x-ray completed. - Continue supportive care at home. - XR SHOULDER GENERAL 3V OR MORE AP/TRUE AP/OTHER LEFT 4. Tail bone pain - ICD9: 724.79, ICD10: M53.3 - Get x-rays completed. - Continue supportive care at home. - XR LUMBAR GENERAL 3V AP/LAT/L5-S1 - XR SACRUM/COCCYX 3V AP/LAT Follow-up pending test results or sooner as needed. Discussed treatment plan and patient voices understanding. Patient's questions answered appropriately. Medications and potential side effects were discussed and patient voices understanding. Nga Ferrer APRN.CNP The patient indicates understanding of these issues and agrees with the plan.This note was partially generated using [employer] voice recognition system. Note was reviewed for accuracy. There may be minor misspellings or grammar miscues with Dragon voice recognition. documented [facility] History of Present illness Narrative* Crissy Burns RT(R) - 05/12/2023 10:10 AM EDT Radiology Service Progress Note PATIENT NAME: Albania Ramsey DATE OF SERVICE: May 12, 2023 TIME: 10:26 AM PATIENT IDENTITY VERIFICATION COMPLETED USING TWO (2) IDENTIFIERS: Name and Date of confirmedby patient verbally. FALL SCREENING: Has the patient had 2 falls in the last year or 1 fall with injury or currently using an Ambulatory Assistive Device (Walker, Cane, Wheelchair, Crutches, etc.)? No PATIENT GENDER DATA: Female. status: : No status: NO. PATIENT RELEVANT IMPLANT DATA REVIEWED: Not Applicable RADIOLOGY DEPARTMENT: General X-ray: Exam(s) Completed: Spine X-Ray(s): Lumbar AP / LAT / L5-S1 andSacrum/Coccyx Upper Extremity X-Ray(s): Shoulder, AP / TRUE AP / AXILLARY left PERIPHERAL IV DATA: Not applicable SIGNED BY: RT Bea(R) May 12, 2023 10:26 AM documented in this encounterJoint [facility] Instructions* Patient Instructions* Nga Ferrer APRN.CNP - 05/12/2023 10:01 AM EDT Get xray completed today Continue supportive care at home. May use ice to the area Recommend sitting on a cushion to help with tailbone pain. Follow up pending test results or sooner as needed. documented in this encounterJoint [facility] Miscellaneous Notes* Telephone Encounter - Virgen Hardy Ma - 04/22/2023 2:51 PM EDT I called and spoke with patient. Advised she would need to see Dr. Jamison. Patient was transferred to scheduling to get set up. * Telephone Encounter - Cathy Brush - 04/22/2023 8:35 AM EDT Patient is calling asking about a referral to another provider for a rt shoulder replacement surgery. Please advise the patient. documented in this encounterJoint [facility] Miscellaneous Notes* Telephone Encounter - Teresa Aguilar MD - 04/15/2023 3:35 PM EDT I agree with the advice given Teresa Aguilar MD * Telephone Encounter - Maude Scott RN - 04/15/2023 9:48 AM EDT Protocol recommends go to the ER. Pt is going to have her neighbor take her to the ER now. Care plan reviewed with patient. Patient voices understanding. Advised patient that if symptoms get worse tocall 911. Reason for Disposition Vomiting once or more Answer Assessment - Initial Assessment Questions 1. MECHANISM: Pt fell outside on neighbors cement patio and it had toys all over it. 2. ONSET: Wednesday04/13/23 3. NEUROLOGIC SYMPTOMS: Denies any loss of consciousness. 4. MENTAL STATUS: Pt knows who they are, who I are, and where they are, the date, the president. 5. LOCATION: She reports she hit the back of her head. 6. SCALP APPEARANCE: Pt reports the scalp has bruising, denies bleeding. 7. SIZE: Pt denies cuts, bruises, or swelling. 8. PAIN: Pt reports a headache starting today 10/10 throbbing pain, and some neck pain at times. 9. TETANUS: Denies break in skin. 10. OTHER SYMPTOMS: Pt reports neck pain, vomiting, headache, dizzy, blurred vision. 11. : Postmenopausal Protocols used: Head Fvspis-CVNVI-YI documented in this encounterJoint [facility] Hospital Discharge instructions Patient Education 04/15/2023 10:55:06 Neck Sprain or Strain Neck Sprain or Strain A sudden force that causes turning or bending of the neck can cause sprain or strain. An example would be the force from a car accident. This can stretch or tear muscles called a strain. It can also stretch or tear ligaments called a sprain. Either of these can cause neck pain. Sometimes neck pain occurs after a simple awkward movement. In either case, muscle spasm is commonly present and contributes to the pain. Unless you had a forceful physical injury (for example, a car accident or fall), X-rays are often not ordered for the initial evaluation of neck pain. If pain continues and does not respond to medical treatment, X-rays and other tests may be done later. Home care You may feel more soreness and spasm the first few days after the injury. Rest until symptoms startto improve. When lying down, use a comfortable pillow or a rolled towel that supports the head and keeps the spine in a neutral position. The position of the head should not be tilted forward or backward. Apply an ice pack over the injured area for 15 to 20 minutes every 3 to 6 hours. Do this for the first 24 to 48 hours. You can make an ice pack by filling a plastic bag that seals at the top with icecubes and then wrapping it with a thin towel. After 48 hours, apply heat (warm shower or warm bath)for 15 to 20 minutes several times a day, or alternate ice and heat. You may use gxey-alh-ahsrtqu pain medicine to control pain, unless another pain medicine was prescribed. If you have chronic liver or kidney disease or ever had a stomach ulcer or gastrointestinal bleeding, talk with your healthcare provider before using these medicines. If a soft cervical collar was prescribed, only ear it for periods of increased pain. It should not be worn for more than 3 hours a day, or for longer than 1 to 2 weeks. Follow-up care Follow up with your healthcare provider, or as directed. Physical therapy may be needed. Sometimes fractures don t show up on the first X-ray. Bruises and sprains can sometimes hurt as much as a fracture. These injuries can take time to heal completely. If your symptoms don t improve or they get worse, talk with your healthcare provider. You may need a repeat X-ray or other tests. If X-rays were taken, you will be told of any new findings that may affect your care. Call 911 Call 911 if you have: Neck swelling, difficulty or painful swallowing Trouble breathing Chest pain When to seek medical advice Call your healthcare provider right away if any of these occur: Pain becomes worse or spreads into your arms or legs Weakness or numbness in one or both arms or legs [id number] [employer]. [address] [place] [address]. All rights reserved. This information is not intended as a substitute for professional medical care. Always follow yourregional medical centercare professional's instructions. 04/15/2023 10:55:04 Back Sprain/Strain Back Sprain or Strain Injury to the muscles (strain) or ligaments (sprain) around the spine can be troubling. Injury may occur after a sudden forceful twisting or bending force such as in a car accident, after a simple awkward movement, or after lifting something heavy with poor body positioning. In any case, muscle spasm is often present and adds to the pain. Thankfully, most people feel better in 1 to 2 weeks, and most of the rest in 1 to 2 months. Most people can remain active. Unless you had a forceful or traumatic physical injury such as a car accident or fall, X-rays may not be ordered for the first evaluation of a back sprain or strain. If pain continues and does not respond to medical treatment, your healthcare provider may then order X-rays and other tests. Home care The following guidelines will help you care for your injury at home: When in bed, try to find a comfortable position. A firm mattress is best. Try lying flat on your back with pillows under your knees. You can also try lying on your side with your knees bent up towardyour chest and a pillow between your knees. Don't sit for long periods. Try not to take long car rides or take other trips that have you sitting for a long time. This puts more stress on the lower back than standing or walking. During the first 24 to 72 hours after an injury or flare-up, apply an ice pack to the painful area for 20 minutes. Then remove it for 20 minutes. Do this for 60 to 90 minutes, or several times a day.This will reduce swelling and pain. Be sure to wrap the ice pack in a thin towel or plastic to protect your skin. You can start with ice, then switch to heat. Heat from a hot shower, hot bath, or heating pad reduces pain and works well for muscle spasms. Put heat on the painful area for 20 minutes, then remove for 20 minutes. Do this for 60 to 90 minutes, or several times a day. Do not use a heating pad while sleeping. It can burn the skin. You can alternate the ice and heat. Talk with your healthcare provider to find out the best treatment or therapy for your back pain. Therapeutic massage will help relax the back muscles without stretching them. Be aware of safe lifting methods. Do not lift anything over 15 pounds until all of the pain is gone. Medicines Talk to your healthcare provider before using medicines, especially if you have other health problems or are taking other medicines. You may use acetaminophen or ibuprofen to control pain, unless another pain medicine was prescribed. If you have chronic conditions like diabetes, liver or kidney disease, stomach ulcers, or gastrointestinal bleeding, or are taking blood-thinner medicines, talk with your doctor before taking any medicines. Be careful if you are given prescription medicines, narcotics, or medicine for muscle spasm. They can cause drowsiness, and affect your coordination, reflexes, and judgment. Do not drive or operate heavy machinery when taking these types of medicines. Only take pain medicine as prescribed by your healthcare provider. Follow-up care Follow up with your healthcare provider, or as advised. You may need physical therapy or more testsif your symptoms get worse. If you had X-rays your healthcare provider may be checking for any broken bones, breaks, or fractures. Bruises and sprains can sometimes hurt as much as a fracture. These injuries can take time to heal completely. If your symptoms don t improve or they get worse, talk with your healthcare provider.You may need a repeat X-ray or other tests. Call 911 Call 911 if any of the following occur: Trouble breathing Confused Very drowsy or trouble awakening Fainting or loss of consciousness Rapid or very slow heart rate Loss of bowel or bladder control When to seek medical advice Call your healthcare provider right away if any of the following occur: Pain gets worse or spreads to your arms or legs Weakness or numbness in one or both arms or legs Numbness in the groin or genital area [id number] [employer]. [address] [place] [address]. All rights reserved. This information is not intended as a substitute for professional medical care. Always follow yourhealthcare professional's instructions. Follow Up Care 04/15/2023 10:44:21 With:TERESA AGUILAR MD Address: [address] [place] [id number]- When:2-4 days [facility] 08-03-2023 Note Discharge Instructions Thank you for allowing [facility] to assist you with your healthcare needs. The following is importantdischarge information regarding your hospital visit. Diagnosis from Today's Visit Fall Fall Headache Low back strain Strain of neck muscle What to Do Next Instructions from Your Care Team No qualifying data available. Post Acute Orders No qualifying data available. You Need to Schedule the Following Appointments Follow Up with TERESA AGUILAR MD When Within 2-4 days Where: [address], [place] [id number]- Allergies Demerol HCl (Hives) Desyrel (blotches over body) predniSONE (stomach problems) erythromycin (rash) morphine (rash over body) doxycycline (Hives) Medications Please ask your primary doctor or pharmacist before taking any other medication not listed, including over the counter drugs, herbal medications, vitamins and or supplements as they may interact withyour home medications. What How Much When Why Instructions Last Dose New cyclobenzaprine (cyclobenzaprine 10 mg oral tablet) 1 tab(s) by mouth Three (3) times a day Duration: 7 Days Printed Prescription Changed naproxen (Naprosyn 500 mg oral tablet) 1 tab(s) by mouth Twice daily with meals as needed for Pain Duration: 7 Days Changed naproxen (Naprosyn 500 mg oral tablet) 1 tab(s) by mouth Twice daily with meals as needed for Pain Changed naproxen (naproxen 250 mg oral tablet) 1 tab(s) by mouth Two (2) times a day Duration: 10 Days Printed Prescription Unchanged acetaminophen-hydrocodone ([place] 325- 5 mg oral tablet) 1 tab(s) by mouth Every 6 hours Ankle sprain Duration: 2 Days Unchanged albuterol (ProAir HFA MDI (90 mcg/ inh) inhalation aerosol) 1 puff(s) by inhalation Four (4) times a day as needed for for wheezing Unchanged albuterol-ipratropium (DuoNeb 0.5 mg-2.5 mg/ 3 mL inhalation solution) 3 Milliliter by inhalation Four (4) times a day Unchanged benztropine (benztropine 1 mg oral tablet) 1 tab(s) by mouth Two (2) times a day Unchanged buPROPion (buPROPion 150 mg/ 24 hours (XL) oral tablet, extended release) 1 tab(s) by mouth Every 24 hours Unchanged escitalopram (Lexapro 5 mg oral tablet) 1 1/2 tablet by mouth Every day Unchanged fluticasone nasal (Flonase 50 mcg/ inh nasal spray) 1 spray(s) in the nose Two (2) times a day Upper respiratory infection in each nostril Unchanged lamoTRIgine (Lamictal 100 mg oral tablet) 1 tab(s) by mouth Once a day Unchanged lamoTRIgine (lamoTRIgine 100 mg oral tablet) 1 tab(s) by mouth Two (2) times a day Unchanged meloxicam (meloxicam 15 mg oral tablet) take 1 tablet by mouth once daily with food Unchanged Misc Medication (RA MELATONIN 10 MG TABLET) take 1 tablet by mouth at bedtime if needed Unchanged omeprazole (NF) (omeprazole 20 mg oral delayed release capsule (NF)) 1 cap by mouth Once a day Unchanged prazosin (prazosin 1 mg oral capsule) 1 cap by mouth Three (3) times a day Unchanged QUEtiapine (SEROquel 300 mg oral tablet) 1 tab(s) by mouth Daily at bedtime Unchanged sertraline (sertraline 50 mg oral tablet) 1 tab(s) by mouth Every day Please take this list to your next doctor s visit. Bring all medications you take, including over the counter medications, herbals and other supplements with you to your doctor s visit. Patients and families are reminded to discard old lists and to update any records with all medication providers or retail pharmacies. Education Materials Neck Sprain or Strain A sudden force that causes turning or bending of the neck can cause sprain or strain. An example would be the force from a car accident. This can stretch or tear muscles called a strain. It can also stretch or tear ligaments called a sprain. Either of these can cause neck pain. Sometimes neck pain occurs after a simple awkward movement. In either case, muscle spasm is commonly present and contributes to the pain. Unless you had a forceful physical injury (for example, a car accident or fall), X-rays are often not ordered for the initial evaluation of neck pain. If pain continues and does not respond to medical treatment, X-rays and other tests may be done later. Home care You may feel more soreness and spasm the first few days after the injury. Rest until symptoms startto improve. When lying down, use a comfortable pillow or a rolled towel that supports the head and keeps the spine in a neutral position. The position of the head should not be tilted forward or backward. Apply an ice pack over the injured area for 15 to 20 minutes every 3 to 6 hours. Do this for the first 24 to 48 hours. You can make an ice pack by filling a plastic bag that seals at the top with icecubes and then wrapping it with a thin towel. After 48 hours, apply heat (warm shower or warm bath)for 15 to 20 minutes several times a day, or alternate ice and heat. You may use qtub-hyh-kvkllkv pain medicine to control pain, unless another pain medicine was prescribed. If you have chronic liver or kidney disease or ever had a stomach ulcer or gastrointestinal bleeding, talk with your healthcare provider before using these medicines. If a soft cervical collar was prescribed, only ear it for periods of increased pain. It should not be worn for more than 3 hours a day, or for longer than 1 to 2 weeks. Follow-up care Follow up with your healthcare provider, or as directed. Physical therapy may be needed. Sometimes fractures don t show up on the first X-ray. Bruises and sprains can sometimes hurt as much as a fracture. These injuries can take time to heal completely. If your symptoms don t improve or they get worse, talk with your healthcare provider. You may need a repeat X-ray or other tests. If X-rays were taken, you will be told of any new findings that may affect your care. Call 911 Call 911 if you have: Neck swelling, difficulty or painful swallowing Trouble breathing Chest pain When to seek medical advice Call your healthcare provider right away if any of these occur: Pain becomes worse or spreads into your arms or legs Weakness or numbness in one or both arms or legs [id number] [employer] [place] [address]. All rights reserved. This information is not intended as a substitute for professional medical care. Always follow yourhealthcare professional's instructions. Back Sprain or Strain Injury to the muscles (strain) or ligaments (sprain) around the spine can be troubling. Injury may occur after a sudden forceful twisting or bending force such as in a car accident, after a simple awkward movement, or after lifting something heavy with poor body positioning. In any case, muscle spasm is often present and adds to the pain. Thankfully, most people feel better in 1 to 2 weeks, and most of the rest in 1 to 2 months. Most people can remain active. Unless you had a forceful or traumatic physical injury such as a car accident or fall, X-rays may not be ordered for the first evaluation of a back sprain or strain. If pain continues and does not respond to medical treatment, your healthcare provider may then order X-rays and other tests. Home care The following guidelines will help you care for your injury at home: When in bed, try to find a comfortable position. A firm mattress is best. Try lying flat on your back with pillows under your knees. You can also try lying on your side with your knees bent up towardyour chest and a pillow between your knees. Don't sit for long periods. Try not to take long car rides or take other trips that have you sitting for a long time. This puts more stress on the lower back than standing or walking. During the first 24 to 72 hours after an injury or flare-up, apply an ice pack to the painful area for 20 minutes. Then remove it for 20 minutes. Do this for 60 to 90 minutes, or several times a day.This will reduce swelling and pain. Be sure to wrap the ice pack in a thin towel or plastic to protect your skin. You can start with ice, then switch to heat. Heat from a hot shower, hot bath, or heating pad reduces pain and works well for muscle spasms. Put heat on the painful area for 20 minutes, then remove for 20 minutes. Do this for 60 to 90 minutes, or several times a day. Do not use a heating pad while sleeping. It can burn the skin. You can alternate the ice and heat. Talk with your healthcare provider to find out the best treatment or therapy for your back pain. Therapeutic massage will help relax the back muscles without stretching them. Be aware of safe lifting methods. Do not lift anything over 15 pounds until all of the pain is gone. Medicines Talk to your healthcare provider before using medicines, especially if you have other health problems or are taking other medicines. You may use acetaminophen or ibuprofen to control pain, unless another pain medicine was prescribed. If you have chronic conditions like diabetes, liver or kidney disease, stomach ulcers, or gastrointestinal bleeding, or are taking blood-thinner medicines, talk with your doctor before taking any medicines. Be careful if you are given prescription medicines, narcotics, or medicine for muscle spasm. They can cause drowsiness, and affect your coordination, reflexes, and judgment. Do not drive or operate heavy machinery when taking these types of medicines. Only take pain medicine as prescribed by your healthcare provider. Follow-up care Follow up with your healthcare provider, or as advised. You may need physical therapy or more testsif your symptoms get worse. If you had X-rays your healthcare provider may be checking for any broken bones, breaks, or fractures. Bruises and sprains can sometimes hurt as much as a fracture. These injuries can take time to heal completely. If your symptoms don t improve or they get worse, talk with your healthcare provider.You may need a repeat X-ray or other tests. Call 911 Call 911 if any of the following occur: Trouble breathing Confused Very drowsy or trouble awakening Fainting or loss of consciousness Rapid or very slow heart rate Loss of bowel or bladder control When to seek medical advice Call your healthcare provider right away if any of the following occur: Pain gets worse or spreads to your arms or legs Weakness or numbness in one or both arms or legs Numbness in the groin or genital area [phone] [employer]. [address] [place] [address]. All rights reserved. This information is not intended as a substitute for professional medical care. Always follow yourhealthcare professional's instructions. Additional Information VACCINATE! IT SAVES LIVES! Members of the community who have not yet received the COVID-19 vaccine and would like to receive it can visit one of [facility] vaccine clinics. There are many vaccine clinic locations within the [facility]. For locations and available times, please visit www.gettheshot.coronavirus.[place].gov/. It is important to note that some COVID mobile vaccine clinics are held outdoors and may be canceled in rainy or stormy conditions. To learn more about pediatric vaccinations (ages 5-11), we invite you to visit the [facility] webpage. https://www.[email or web address].org/pages/[email or web address]-Nazxk-Ulisqlslrkp-Fhmknpzahx-Mrgcr-[email or web address] stions.htmlTo learn more about the COVID-19 vaccine, we invite you to visit the CDC website for a list of frequently asked questions. https://www.cdc.gov/coronavirus/2019-ncov/vaccines/faq.html [facility] Patient Portal Access Instructions: Stay connected with your healthcare team and access your personal medical information anytime with the [facility] Patient Portal. If you would like a full copy of your medical records please contact the [facility] Medical Records Department Wednesday through Wednesday between 8a.m. and 4:30p.m. Please follow the directions below to access the portal: 1.Access the email account you provided upon registration to the special care hospital.2.Look for an invitation email from [facility].3.Open the email and access the invitation link: Accept Invitation to [facility]4.Fill in the required hester to create your account. Sign into www.[employer] with your username and password that you created in the above steps to stay up to date. You can then view a summary of results, a summary of your visits, and the ability to download your summaries to your computer or send the information securely to a physician. Remember that your healthcare information is confidential, so carefully consider who you will allow to register on the [facility] Portal for access to your information. You can also access the [facility] Patient Portal on the [employer] leonarda. Simply click on Health Records under [facility] and then click on the [employer] logo. HOW TO SAFELY DISPOSE OF PRESCRIPTION MEDICATIONS Please use one of the following methods to safely dispose of your unused medications. 1.Use a drug disposal kit: the drug disposal pouch allows you to safely discard your old and unuseddrugs. Ask your nurse to give you one when you are discharged.2.Visit a local take-back location: Many local pharmacies and police departments have programs that collect old and unwanted prescriptiondrugs. Call your local pharmacy or go to http://[facility].Macheen/3B6Uw9u to find one close to you.3.Make use of household items: Use cat litter or old coffee grounds to dispose medications if other options arenot available. Mix your drugs with these household products, seal them in an airtight container andthrow it into the garbage. Call [facility]: [phone] to be sure your drugs can be disposed of in this way. Some medicines may require a different approach.4.Never flush your medications down the toilet. IF YOU HAVE BEEN PRESCRIBED AN OPIOIDS FOR PAIN If you have been prescribed an opioid (such as hydrocodone, oxycodone or morphine), it is critical to understand the possible side effects and risks of opioid pain medications. Even when taken as directed, opioids can have several side effects including: Tolerance, meaning you might need to take more of a medication for the same pain relief. Nausea, vomiting and/or constipation. Sleepiness, dizziness, dry mouth, confusion, depression or itching. Physical dependence, meaning you have withdrawal symptoms when a medication is stopped ? this can develop within a few days. KNOW YOUR RESPONSIBILITIES It is important to know exactly how much and how often to take the opioid pain medications you are prescribed. Never take opioids in higher amounts or more often than prescribed. Do not combine opioids with alcohol or other drugs that cause drowsiness, such as benzodiazepines, also known as benzos,including diazepam and alprazolam, muscle relaxants or sleep aids. Never sell or share prescriptionopioids. This is illegal. Store opioids in a secure place and out of reach of others (including children, family, friends and visitors). The last page(s) of this document has been signed and retained as a CHART COPY Signatures Patient Education Materials Neck Sprain or Strain Back Sprain/Strain Medication Leaflets My discharge plan and instructions have been reviewed and explained to me and I,ALBANIA RAMSEY understand my current condition and have read and understand these discharge instructions. I have received a written copy of the plan/instructions. If I have questions, I am aware that I should contact my doctor. Patient/Cold Working Inspector Signature: Date/Time: Relationship to Patient: Witness Name/Signature: Date/Time: [facility]04-10-2023 Miscellaneous Notes* Telephone Encounter - Anna Russo LPN - 12/21/2022 9:27 AM EDT Patient notified of recommendations from CLINICAL WRITER, verbalizes understanding of instructions. Anna Russo LPN * Telephone Encounter - Nga Ferrer APRN.NEAL - 12/21/2022 8:36 AM EDT Can you please call the patient and let her know that she may keep upcoming appointment, however I would recommend that she increase water and fiber in the diet. May use MiraLAX 1-2 times per day to help with constipation. If symptoms worsen I would recommend that she be seen earlier. She may use any axte-cie-seykbsk cold and cough medications as needed. Nga Ferrer APRN.NEAL * Telephone Encounter - Cathy Perez RN - 12/21/2022 8:25 AM EDT Patient calling to request an appt with PCP Team. Patient states she does not have transportation and will need to get this scheduled-requesting appt for 12/23. Pt reports: -left earache x 3 days -sore throat x 3 days -chills-has not checked temperature -cough-productive, yellow sputum -reports has chronic SOB and has not worsened -had COVID and Influenza last month and improved -reports chronic headaches-denies worsening -reports constipation-no BM in 3 days -DENIES: weakness, dizziness, any severe pain, sinus pressure, body aches, nausea, vomiting or diarrhea -not using any OTC medications Appt made for 12/23 with Nga Fererr CNP despite recommendations to be evaluated sooner. Unable to do VV. Instructed patient to call if sx's worsen. Cathy Perez RN documented in this encounterJoint [facility] History of Present illness Narrative* Cora Gil PA-C - 11/27/2022 8:21 AM EDT Images from the original note were not included. Neurology Outpatient Clinic Date: November 27, 2022 Patient Name: Albania Ramsey Referring provider: Nga Ferrer CNP [address] [facility] [address] Consult requested for memory loss by Nga Ferrer CNP. Recommendations will be communicated via shared medical record or US mail. Primary physician: Teresa Aguilar [address] [place] [address] Reason for Evaluation: forgetfulness Subjective HPI Albania Ramsey is a 62 year old female with history of tobacco use, DDD, BPPV, pas cavus, bipolar 1who presents for evaluation of memory loss. Nga Ferrer CNP is the referring provider. Dr. Teresa Aguilar MD is the PCP. Patient initially presented for evaluation of memory issues. However, on arrival patient with significant weakness, difficulty ambulating. Reporting worsening of her chronic shortness of breath and active chest pain that began this morning. Patient with history of PE many years ago, half pack a daysmoker. Denies any history of stroke or heart attack in the past. Unable to describe chest pain, denies any radiation. EMS was called promptly. Labs/Imaging None Medications: Current Outpatient Medications Medication Sig Dispense Refill albuterol (PROVENTIL) 2.5 mg /3 mL (0.083 %) nebulizer solution Use 3 mL via nebulizer every 4 hours as needed for wheezing/shortness of breath. Use over 5- 15minutes. [address] (PROTONIX) 20 mg tablet Take 1 tablet by mouth daily before breakfast. Take on empty stomach, 1/2 hr before meal. 30 tablet 11 cholecalciferol, Vitamin D3, (VITAMIN D3) 1,250 mcg (50,000 unit) cap capsule Take 1 capsule by mouth one time a week. 4 capsule 11 OXYGEN, HOME THERAPY, 2 L/min by Nasal Cannula route daily at bedtime. lamoTRIgine (LAMICTAL) 150 mg tablet Take 1 tablet by mouth three times daily as needed. albuterol HFA (PROVENTIL HFA, VENTOLIN HFA) 90 mcg/actuation inhaler Inhale 2 Puffs as instructed every 4 hours as needed for Wheezing/Shortness of Breath. 1 Inhaler 1 prazosin (MINIPRESS) 2 mg cap Take 2 mg by mouth daily at bedtime. sertraline (ZOLOFT) 50 mg tablet Take 50 mg by mouth once daily. Melatonin 5 mg tab Take 5 mg by mouth daily at bedtime. benztropine (COGENTIN) 1 mg tablet Take 1 mg by mouth twice daily. QUEtiapine (SEROQUEL) 300 mg tablet Take 300 mg by mouth daily at bedtime. mineral oil/hydrophil petrolatum (AQUAPHOR) oint Apply to affected area as needed. Apply liberally to area three times a day. (Patient not taking: Reported on 01/16/2021 ) 113 g 0 benzonatate (TESSALON PERLES) 100 mg capsule Take 1 capsule by mouth three times daily as needed for Cough. (Patient not taking: Reported on 11/14/2020 ) 30 capsule 1 guaiFENesin (ROBITUSSIN) 100 mg/5 mL syrup Take 10 mL by mouth three times daily as needed for Cough. (Patient not taking: Reported on 11/14/2020 ) 150 mL 1 ondansetron orally disintegrating (ZOFRAN ODT) 4 mg disintegrating tablet Take 1 tablet by mouth every 6 hours as needed for Nausea/Vomiting. (Patient not taking: Reported on 10/14/2020 ) 20 tablet 0 Current Facility-Administered Medications Medication Dose Route Frequency Provider Last Rate Last Admin aspirin 324 mg chewable tab(s) 324 mg ORAL ONCE Cora Gil PA-C ROS See above ALLERGIES Allergen Reactions Demoral [Meperidine] Rash Desyrel [Trazodone * Rash Doxycycline Hives Erythromycin Rash Morphine Swelling Prednisone Rash Past Medical History: PAST MEDICAL HISTORY Diagnosis Date Asthma Bipolar I disorder, most recent episode (or current) unspecified Blood dyscrasia Chronic obstructive pulmonary disease (COPD) (HCC) Dysthymic disorder Depression (non-psychotic) Lumbago Obstructive chronic bronchitis with exacerbation (HCC) COPD Pulmonary embolus (HCC) 25 years prior Schizophrenia (HCC) [facility] with [facility] Tobacco use disorder 1/2 ppd since age of 11 Family History: FAMILY HISTORY Problem Relation Age of Onset Cancer Father prostate Prostate Cancer Father Blood Disease Mother Diabetes Mother Colon Cancer Mother Anesthesia Mother Breast Cancer Mother other (Bleeding disorder) Mother Allergies Sister Breast Cancer Other cousin Heart Sister Psychiatry Sister Cervical Cancer Maternal Aunt Diabetes Sister Coronary Artery Disease Sister Hypertension Sister Lipids Sister Stroke Sister Also includes: NA. Social History: Social History Tobacco Use Smoking status: Every Day Packs/day: 0.50 Years: 34.00 Pack years: 17.00 Types: Cigarettes Start date: 10/02/1972 Smokeless tobacco: Never Vaping Use Vaping Use: Never used Substance Use Topics Alcohol use: No Drug use: No Objective 11/27/22 0835 BP: 121/78 Pulse: 96 Resp: 20 Temp: 36.4 C (97.5 F) SpO2: 96% Weight: 54.6 kg (120 lb 6.4 oz) Physical Examination General Appearance: Thin, appears in distress Head: Normocephalic Pulm: Difficulty breathing, rhonchi and wheezing noted throughout CV: borderline tachycardia, unable to auscultate due to wheezing, pulse was regular Neck: Supple Skin: Multiple areas of tunneling on the hands, small scabs throughout the hands and lower arm Psych: Cooperative, appropriate affect Neurological Examination: Mental Status: Alert and Oriented to Place, Person, Time and Situation and Patient follows commands.. Language: Is intact to Comprehension, Fluency and Repetition Cranial Nerves: CNII: Visual acuity normal, visual hester full to confrontation CNIII, IV, : not tested CN V: Not tested CN VII: Facial muscles symmetric and strong, possible mild asymmetry to the smile CN VIII: Intact to conversation CN IX: Gag Reflex not examined CN X: not tested CN XI: not tested CN XII: Tongue protrusion full and midline Motor Exam: Tone - Normal Tone noted in all extremities Bulk - Normal bulk noted in all muscles tested. Inspection - Not tested Power: MUSCLES Upper Extremity RIGHT LEFT Deltoid 5/5 5/5 Biceps 5/5 5/5 Triceps 5/5 5/5 Wrist Extension 5/5 5/5 Wrist Flexion 5/5 5/5 Finger Flexion 5/5 5/5 Finger Extension 5/5 5/5 Finger Abd 5/5 5/5 Finger Add 5/5 5/5 MUSCLES Lower Extremity RIGHT LEFT Hip Flexion 5/5 5/5 Hip Extension 5/5 5/5 BiFem (Knee Flex) 5/5 5/5 Quads (Knee Ext) 5/5 5/5 Gastroc (Plantflx) 5/5 5/5 TibAnt (Dorsiflx) 5/5 5/5 FlxHLong (Toe Flex) 5/5 5/5 ExtHLong (Toe Ext) 5/5 5/5 Sensory Examination Not tested Reflexes: Not tested Coordination: not tested Gait: Patient's gait is abnormal, unable to walk unassisted (not baseline) Romberg: Not tested DATA REVIEWED Actual films/image/tracing reviewed and summarized as follows: none Old records reviewed and summarized as follows: primary care Assessment/Plan Assessment & Plan: Albania Ramsey is a 62 year old female with a history of obacco use, DDD, BPPV, pas cavus, bipolar 1 and PE. Her examination demonstrates significant respiratory distress, mild asymmetry of smile. Patient initially scheduled for appointment for memory loss, however presented with active shortness of breath and chest pain. Patient unable to walk unassisted, EMS was immediately called, patient was given full-strength aspirin and put on 2 L of oxygen as her oxygen saturation was in the low 90s (patient not taking aspirin or any other anticoagulant this morning). On exam, patient with significant rhonchi and wheezing throughout all lung hester, unable to hear heart rate and rhythm, but pulseis regular and borderline tachycardic. Patient with history of COPD, notes that she took her inhaler this morning without any help. States that the chest pain started this morning, worsening shortness of breath also started this morning, history of PE many years ago. EMS arrived, patient was taken to the nearest emergency room. Did reach out to PCP to update on patient status. Albania was seen today for new patient evaluation. Diagnoses and all orders for this visit: Chest pain, unspecified type Forgetfulness - CONSULT TO NEUROLOGY Shortness of breath Other orders - aspirin 324 mg chewable tab(s) She should return to see me after discharge as needed. I spent a total of 20 minutes on the date of the service which included preparing to see the patient, [id number] patient care, completing clinical documentation, obtaining and/or reviewing separately obtained history, performing a medically appropriate examination, counseling and educating the pat ient/family/caregiver, and ordering medications, tests, or procedures. Cora Gil PA-C [facility] Neu[facility] This document has been created with the use of voice recognition technology. It may contain inaccuracies: (e.g. misspellings, inaccurate syntax or word sense) that have escaped review. documented in this encounterJoint [facility]03-03-2023 Miscellaneous Notes* Telephone Encounter - Anna Russo LPN - 11/13/2022 8:54 AM EST Patient notified of results, verbalizes understanding of instructions. Anna Russo LPN * Telephone Encounter - Nga Ferrer APRN.CLINICAL WRITER - 11/13/2022 7:56 AM EST Can you please call the patient and let her know that I reviewed her lab results. Labs were all relatively normal however vitamin D has improved but still low. Can you please verifyif she is taking vitamin D once weekly as prescribed? I see no abnormalities in labs that would be causing her current symptoms. I believe she is having BPPV, I would continue with at home exercises, may use scopolamine patch as prescribed. If symptoms do not improve I recommend vestibular physical therapy which was ordered during office visit. She does have a consult for neurology if needed. Please let me know if she has any questions. Thankyou. Nga Ferrer APRN.NEAL documented in this encounterJoint [facility] District [facility] Hospital02-23-2023 Miscellaneous Notes* Telephone Encounter - Machelle Colon RN - 11/05/2022 9:36 AM EST Appointment scheduled for 11/12/2022 1020 am per patient request when transportation will be available. Machelle Colon RN * Telephone Encounter - Teresa Aguilar MD - 11/05/2022 8:34 AM EST I would recommend an appointment for evaluation; may be in 7 days if she needs that long to schedule transportation Teresa Aguilar MD * Telephone Encounter - Machelle Colon RN - 11/04/2022 10:08 AM EST Patient calls to report vertigo and problems with memory for past couple of weeks. Nurse triage completed. Protocol recommends see provider within 4 hours. Appointment not scheduled. Patient needs 7 days to schedule transportation with insurance. Please review and advise. Reason for Disposition Taking a medicine that could cause dizziness (e.g., phenytoin [Dilantin], carbamazepine [Tegretol],primidone [Mysoline]) Answer Assessment - Initial Assessment Questions 1. DESCRIPTION: Patient reports that the room feels like it is spinning but not all the time. Patient reports that her memory is an issue as well. She keeps losing things and not remembering where she put them. 2. VERTIGO: Room is spinning 3. LIGHTHEADED: Somewhat woozy 4. SEVERITY: - MODERATE: Feels unsteady when walking, but not falling; interferes with normal activities (e.g., school, work). Reports when walking sometimes she has to grab on to things to keep from falling. 5. ONSET: atleast a couple of weeks a go 6. AGGRAVATING FACTORS: Doesn't seem to notice anything making it worse 7. CAUSE: Patient is uncertain 8. RECURRENT SYMPTOM: Patient believes that years ago she was told she had vertigo but it wasn't bad enough to need medication or any treatment for. Not noted on problem list 9. OTHER SYMPTOMS: Denies headache, numbness, vomiting, and earache. Does report bilateral leg weakness. Protocols used: Dizziness - [id number] documented in this encounterJoint [facility] Hospital12-29-2022 Miscellaneous Notes* Telephone Encounter - Dolly Acosta Ma - 09/10/2022 4:01 PM EST Called pt and notified of message below from PCP. Verbalized understanding. Dolly Acosta Ma * Telephone Encounter - Teresa Aguilar MD - 09/10/2022 3:59 PM EST OK to change to protonix as ordered Teresa Aguilar MD * Telephone Encounter - Stella Garcia Pss - 09/10/2022 12:49 PM EST Patient called stating the omeprazole is not working. Is there something else she can try. Please advise. documented in this encounterJoint [facility] Hospital12-29-2022 Miscellaneous Notes* Telephone Encounter - Teresa Aguilar MD - 09/10/2022 1:51 PM EST OK to refill as ordered Teresa Aguilar MD * Telephone Encounter - Stella Garcia Pss - 09/10/2022 12:48 PM EST Patient has been identified by name and date of : Yes Last office visit in this department: 06/10/2022 Labs-05/11/22 NOV-none med filled 10/20/21 RX INSTRUCTIONS: Patient aware RX will be sent to pharmacy. No need to notify patient. Patient phones requesting refills as follows: Requested Prescriptions Pending Prescriptions Disp Refills albuterol (PROVENTIL) 2.5 mg /3 mL (0.083 %) nebulizer solution Sig: Use 3 mL via nebulizer every 4 hours as needed for wheezing/shortness of breath. Use over 5-15minutes. Please review and advise. Stella Garcia Pss documented in this encounterJoint Township District [facility] Hospital12-16-2022 Hospital Discharge instructions Patient Education 08/28/2022 10:49:56 Corneal Ulcer Corneal Ulcer The cornea is the clear part in the front of the eye. A corneal ulcer is an open sore on the cornea. The most common cause of a corneal ulcer is infection by bacteria, virus, or fungus. A scratch to the cornea that becomes infected can lead to a corneal ulcer. Using contact lenses also increases therisk of a corneal ulcer from a bacterial infection. This can happen especially if contact lenses are not kept clean or are worn while sleeping. Chemical injury to the eye is another risk factor for acorneal ulcer. Any condition that causes dry eyes will increase the risk of a corneal ulcer. This includes things such as decreased tear production or not being able to blink normally. A corneal ulcer may cause redness, pain, increased tears, and pus or mucus draining from the eye. Your vision may be blurry and the eyelid may swell. Corneal ulcers are very serious. They may cause long-lasting (permanent) eye scarring, with partialor complete blindness. So this condition must be recognized and treated very carefully. With propertreatment, corneal ulcers should improve in 2 to 3 weeks. Follow-up with a medical doctor who specializes in eye care (stephy research engineer marine equipment) is very important. Home care Don t wear contact lenses until approved by your eye doctor. Don t sleep in contact lenses. Don t soak your contact lenses in anything other than sterile solution specifically made for contact lenses Apply a cool compress to the eye (towel soaked in cool water). Don t touch or rub your eye with your fingers. Wash your hands often to prevent the infection from spreading to the other eye. You may use acetaminophen or ibuprofen to control pain, unless another pain medicine was prescribed. (Note: If you have chronic liver or kidney disease or have ever had a stomach ulcer, talk with your doctor before using these medicines.) Use prescribed antibiotic eye drops or ointment exactly as directed. Follow-up care Follow up with your eye doctor in 1 to 2 days, or as advised. When to seek medical advice Call your healthcare provider right away if any of these occur: Worsening vision Increasing pain in the eye Increased discharge from the eye Increased redness of the eyes Fever of 100.4 F (38 C) or higher, or as directed by your healthcare provider [id number] [employer]. [address] [place] [address]. All rights reserved. This information is not intended as a substitute for professional medical care. Always follow yourhealthcare professional's instructions. Follow Up Care 08/28/2022 10:35:32 With:[facility] Address: [address] [place] [phone]- Business (1) When:1-2 days With:Go to emergency room if symptoms worsen Address:Unknown When:2-4 days With:TERESA AGUILAR MD Address: [address] [place] [phone]- When:2-4 days [facility] 12-16-2022 Note Discharge Instructions Thank you for allowing [facility] to assist you with your healthcare needs. The following is importantdischarge information regarding your hospital visit. Diagnosis from Today's Visit Corneal ulcer of right eye Eye pain What to Do Next Instructions from Your Care Team Follow-up with [facility] or eye doctor of your choosing today or tomorrow. Take antibioticdrops as prescribed for corneal ulcer/abrasion. Return the emergency department if experience worsening symptoms, changes in vision, or any other care concern. No qualifying data available. Post Acute Orders No qualifying data available. You Need to Schedule the Following Appointments Follow Up with [facility] When Within 1-2 days Where: [address] [place] [phone]- Business (1) Follow Up with Go to emergency room if symptoms worsen When Within 2-4 days Follow Up with TERESA AGUILAR MD When Within 2-4 days Where: [address] [place] [address]- Allergies Demerol HCl (Hives) Desyrel (blotches over body) predniSONE (stomach problems) erythromycin (rash) morphine (rash over body) doxycycline (Hives) Medications Please ask your primary doctor or pharmacist before taking any other medication not listed, including over the counter drugs, herbal medications, vitamins and or supplements as they may interact withyour home medications. What How Much When Why Instructions Last Dose New gentamicin ophthalmic (gentamicin 0.3% ophthalmicsolution) 2 Drops Left eye Q 4 hrs while awake Corneal ulcer of right eye Duration: 7 Days While awake Printed Prescription Unchanged acetaminophen-hydrocodone ([place] 325- 5 mg oral tablet) 1 tab(s) by mouth Every 6 hours Ankle sprain Duration: 2 Days Unchanged albuterol (ProAir HFA MDI (90 mcg/ inh) inhalation aerosol) 1 puff(s) by inhalation Four (4) times a day as needed for for wheezing Unchanged albuterol-ipratropium (DuoNeb 0.5 mg-2.5 mg/ 3 mL inhalation solution) 3 Milliliter by inhalation Four (4) times a day Unchanged benztropine (benztropine 1 mg oral tablet) 1 tab(s) by mouth Two (2) times a day Unchanged buPROPion (buPROPion 150 mg/ 24 hours (XL) oral tablet, extended release) 1 tab(s) by mouth Every 24 hours Unchanged escitalopram (Lexapro 5 mg oral tablet) 1 1/2 tablet by mouth Every day Unchanged fluticasone nasal (Flonase 50 mcg/ inh nasal spray) 1 spray(s) in the nose Two (2) times a day Upper respiratory infection in each nostril Unchanged lamoTRIgine (Lamictal 100 mg oral tablet) 1 tab(s) by mouth Once a day Unchanged lamoTRIgine (lamoTRIgine 100 mg oral tablet) 1 tab(s) by mouth Two (2) times a day Unchanged meloxicam (meloxicam 15 mg oral tablet) take 1 tablet by mouth once daily with food Unchanged Misc Medication (RA MELATONIN 10 MG TABLET) take 1 tablet by mouth at bedtime if needed Unchanged naproxen (Naprosyn 500 mg oral tablet) 1 tab(s) by mouth Twice daily with meals as needed for Pain Unchanged naproxen (Naprosyn 500 mg oral tablet) 1 tab(s) by mouth Twice daily with meals as needed for Pain Duration: 7 Days Unchanged omeprazole (NF) (omeprazole 20 mg oral delayed release capsule (NF)) 1 cap by mouth Once a day Unchanged prazosin (prazosin 1 mg oral capsule) 1 cap by mouth Three (3) times a day Unchanged QUEtiapine (SEROquel 300 mg oral tablet) 1 tab(s) by mouth Daily at bedtime Unchanged sertraline (sertraline 50 mg oral tablet) 1 tab(s) by mouth Every day Please take this list to your next doctor s visit. Bring all medications you take, including over the counter medications, herbals and other supplements with you to your doctor s visit. Patients and families are reminded to discard old lists and to update any records with all medication providers or retail pharmacies. Education Materials Corneal Ulcer The cornea is the clear part in the front of the eye. A corneal ulcer is an open sore on the cornea. The most common cause of a corneal ulcer is infection by bacteria, virus, or fungus. A scratch to the cornea that becomes infected can lead to a corneal ulcer. Using contact lenses also increases therisk of a corneal ulcer from a bacterial infection. This can happen especially if contact lenses are not kept clean or are worn while sleeping. Chemical injury to the eye is another risk factor for acorneal ulcer. Any condition that causes dry eyes will increase the risk of a corneal ulcer. This includes things such as decreased tear production or not being able to blink normally. A corneal ulcer may cause redness, pain, increased tears, and pus or mucus draining from the eye. Your vision may be blurry and the eyelid may swell. Corneal ulcers are very serious. They may cause long-lasting (permanent) eye scarring, with partialor complete blindness. So this condition must be recognized and treated very carefully. With propertreatment, corneal ulcers should improve in 2 to 3 weeks. Follow-up with a medical doctor who specializes in eye care (an research engineer marine equipment) is very important. Home care Don t wear contact lenses until approved by your eye doctor. Don t sleep in contact lenses. Don t soak your contact lenses in anything other than sterile solution specifically made for contact lenses Apply a cool compress to the eye (towel soaked in cool water). Don t touch or rub your eye with your fingers. Wash your hands often to prevent the infection from spreading to the other eye. You may use acetaminophen or ibuprofen to control pain, unless another pain medicine was prescribed. (Note: If you have chronic liver or kidney disease or have ever had a stomach ulcer, talk with your doctor before using these medicines.) Use prescribed antibiotic eye drops or ointment exactly as directed. Follow-up care Follow up with your eye doctor in 1 to 2 days, or as advised. When to seek medical advice Call your healthcare provider right away if any of these occur: Worsening vision Increasing pain in the eye Increased discharge from the eye Increased redness of the eyes Fever of 100.4 F (38 C) or higher, or as directed by your healthcare provider [id number] [employer]. [address] [place] [address], [place] [address]. All rights reserved. This information is not intended as a substitute for professional medical care. Always follow yourhealthcare professional's instructions. Additional Information VACCINATE! IT SAVES LIVES! Members of the community who have not yet received the COVID-19 vaccine and would like to receive it can visit one of [facility] vaccine clinics. There are many vaccine clinic locations within the [facility]. For locations and available times, please visit [email or web address]. It is important to note that some COVID mobile vaccine clinics are held outdoors and may be canceled in rainy orstormy conditions. To learn more about pediatric vaccinations (ages 5-11), we invite you to visit the [facility] webpage. [email or web address] learn more about the COVID-19 vaccine, we invite you to visit the [facility] website for a list of frequently asked questions. [email or web address] [facility] Patient Portal Access Instructions: Stay connected with your healthcare team and access your personal medical information anytime with the [facility] Patient Portal. If you would like a full copy of your medical records please contact the [facility] Medical Records Department Wednesday through Wednesday between 8a.m. and 4:30p.m. Please follow the directions below to access the portal: 1.Access the email account you provided upon registration to the special care hospital.2.Look for an invitation email from [facility].3.Open the email and access the invitation link: Accept Invitation to [facility]4.Fill in the required hester to create your account. Sign into [email or web address].[email or web address] with your username and password that you created in the above steps to stay up to date. You can then view a summary of results, a summary of your visits, and the ability to download your summaries to your computer or send the information securely to a physician. Remember that your healthcare information is confidential, so carefully consider who you will allow to register on the [facility] Patient Portal for access to your information. You can also access the [facility] Patient Portal on the [employer] [facility]onarda. Simply click on Health Records under [place] and then click on the [facility] logo. HOW TO SAFELY DISPOSE OF PRESCRIPTION MEDICATIONS Please use one of the following methods to safely dispose of your unused medications. 1.Use a drug disposal kit: the drug disposal pouch allows you to safely discard your old and unuseddrugs. Ask your nurse to give you one when you are discharged.2.Visit a local take-back location: Many local pharmacies and police departments have programs that collect old and unwanted prescriptiondrugs. Call your local pharmacy or go to http://bit.Macheen/4O3An5z to find one close to you.3.Make use of household items: Use cat litter or old coffee grounds to dispose medications if other options arenot available. Mix your drugs with these household products, seal them in an airtight container andthrow it into the garbage. Call [facility]: [phone] to be sure your drugs can be disposed of in this way. Some medicines may require a different approach.4.Never flush your medications down the toilet. IF YOU HAVE BEEN PRESCRIBED AN OPIOIDS FOR PAIN If you have been prescribed an opioid (such as hydrocodone, oxycodone or morphine), it is critical to understand the possible side effects and risks of opioid pain medications. Even when taken as directed, opioids can have several side effects including: Tolerance, meaning you might need to take more of a medication for the same pain relief. Nausea, vomiting and/or constipation. Sleepiness, dizziness, dry mouth, confusion, depression or itching. Physical dependence, meaning you have withdrawal symptoms when a medication is stopped ? this can develop within a few days. KNOW YOUR RESPONSIBILITIES It is important to know exactly how much and how often to take the opioid pain medications you are prescribed. Never take opioids in higher amounts or more often than prescribed. Do not combine opioids with alcohol or other drugs that cause drowsiness, such as benzodiazepines, also known as benzos,including diazepam and alprazolam, muscle relaxants or sleep aids. Never sell or share prescriptionopioids. This is illegal. Store opioids in a secure place and out of reach of others (including children, family, friends and visitors). The last page(s) of this document has been signed and retained as a CHART COPY Signatures Patient Education Materials Corneal Ulcer Medication Leaflets My discharge plan and instructions have been reviewed and explained to me and IROXY LINDA C understand my current condition and have read and understand these discharge instructions. I have received a written copy of the plan/instructions. If I have questions, I am aware that I should contact my doctor. 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 This illness is contagious during the first few days. It is spread through the air by coughing and sneezing. It may also be spread by direct contact (touching the sick person and then touching your own eyes, nose, or mouth). Frequent handwashing will decrease risk of spread. Most viral illnesses go away within 7 to 10 days with rest and simple home remedies. Sometimes the illness may last for several weeks. Antibiotics will not kill a virus, and they are generally not prescribed for this condition. Home care If symptoms are severe, rest at home for the first 2 to 3 days. When you resume activity, don't letyourself get too tired. Don't smoke. If you need help stopping, talk with your healthcare provider. Avoid being exposed to cigarette smoke (yours or others ). You may use acetaminophen or ibuprofen to control pain and fever, unless another medicine was prescribed. If you have chronic liver or kidney disease, have ever had a stomach ulcer or gastrointestinal bleeding, or are taking blood-thinning medicines, talk with your healthcare provider before using these medicines. Aspirin should never be given to anyone under 18 years of age who is ill with a viral infection or fever. It may cause severe liver or brain damage. Your appetite may be poor, so a light diet is fine. Stay well hydrated by drinking 6 to 8 glasses of fluids per day (water, soft drinks, juices, tea, or soup). Extra fluids will help loosen secretions in the nose and lungs. Nbeb-rqd-amgqdnq cold medicines will not shorten the length of time you re sick, but they may be helpful for the following symptoms: cough, sore throat, and nasal and sinus congestion. If you take prescription medicines, ask your healthcare provider or pharmacist which xxox-xhs-wlbtbzd medicines are safe to use. (Note: Don't use decongestants if you have high blood pressure.) Follow-up care Follow up with your healthcare provider, or as advised. When to seek medical advice Call your healthcare provider right away if any of these occur: Cough with lots of colored sputum (mucus) Severe headache; face, neck, or ear pain Difficulty swallowing due to throat pain Fever of 100.4 F (38 C) or higher, or as directed by your healthcare provider Call 911 Call 911 if any of these occur: Chest pain, shortness of breath, wheezing, or difficulty breathing Coughing up blood Very severe pain with swallowing, especially if it goes along with a muffled voice [id number] [employer]. [address] [place], [place] [id number]. All rights reserved. This information is not intended as a substitute for professional medical care. Always follow yourhealthcare professional's instructions. Follow Up Care 08/02/2022 15:03:25 With:TERESA AGUILAR MD Address: [address] [place] [address]- When:2-4 days With:Go to emergency room if symptoms worsen Address:Unknown When:2-4 days [facility] 11-20-2022 Emergency department Discharge summary Discharge Instructions Thank you for allowing [facility] to assist you with your healthcare needs. The following is importantdischarge information regarding your hospital visit. Diagnosis from Today's Visit Upper respiratory infection Cough Finger pain-swelling left ring Sinus Pain/Congestion What to Do Next Instructions from Your Care Team No qualifying data available. Post Acute Orders No qualifying data available. You Need to Schedule the Following Appointments Follow Up with TERESA AGUILAR MD When Within 2-4 days Where: [address] [place] [address]- Follow Up with Go to emergency room if symptoms worsen When Within 2-4 days Allergies Demerol HCl (Hives) Desyrel (blotches over body) predniSONE (stomach problems) erythromycin (rash) morphine (rash over body) doxycycline (Hives) Medications Please ask your primary doctor or pharmacist before taking any other medication not listed, including over the counter drugs, herbal medications, vitamins and or supplements as they may interact withyour home medications. What How Much When Why Instructions Last Dose New fluticasone nasal (Flonase 50 mcg/ inh nasal spray) 1 spray(s) in the nose Two (2) times a day Upper respiratory infection in each nostril Printed Prescription Unchanged acetaminophen-hydrocodone ([place] 325- 5 mg oral tablet) 1 tab(s) by mouth Every 6 hours Ankle sprain Duration: 2 Days Unchanged albuterol (ProAir HFA MDI (90 mcg/ inh) inhalation aerosol) 1 puff(s) by inhalation Four (4) times a day as needed for for wheezing Unchanged albuterol-ipratropium (DuoNeb 0.5 mg-2.5 mg/ 3 mL inhalation solution) 3 Milliliter by inhalation Four (4) times a day Unchanged benztropine (benztropine 1 mg oral tablet) 1 tab(s) by mouth Two (2) times a day Unchanged buPROPion (buPROPion 150 mg/ 24 hours (XL) oral tablet, extended release) 1 tab(s) by mouth Every 24 hours Unchanged escitalopram (Lexapro 5 mg oral tablet) 1 1/2 tablet by mouth Every day Unchanged lamoTRIgine (Lamictal 100 mg oral tablet) 1 tab(s) by mouth Once a day Unchanged lamoTRIgine (lamoTRIgine 100 mg oral tablet) 1 tab(s) by mouth Two (2) times a day Unchanged meloxicam (meloxicam 15 mg oral tablet) take 1 tablet by mouth once daily with food Unchanged Misc Medication (RA MELATONIN 10 MG TABLET) take 1 tablet by mouth at bedtime if needed Unchanged naproxen (Naprosyn 500 mg oral tablet) 1 tab(s) by mouth Twice daily with meals as needed for Pain Unchanged naproxen (Naprosyn 500 mg oral tablet) 1 tab(s) by mouth Twice daily with meals as needed for Pain Duration: 7 Days Unchanged omeprazole (NF) (omeprazole 20 mg oral delayed release capsule (NF)) 1 cap by mouth Once a day Unchanged prazosin (prazosin 1 mg oral capsule) 1 cap by mouth Three (3) times a day Unchanged QUEtiapine (SEROquel 300 mg oral tablet) 1 tab(s) by mouth Daily at bedtime Unchanged sertraline (sertraline 50 mg oral tablet) 1 tab(s) by mouth Every day Please take this list to your next doctor s visit. Bring all medications you take, including over the counter medications, herbals and other supplements with you to your doctor s visit. Patients and families are reminded to discard old lists and to update any records with all medication providers or retail pharmacies. Medication Leaflets fluticasone nasal (floo TIK a sone) Flonase, Veramyst, Xhance What is the most important information I should know about fluticasone nasal? Follow all directions on your medicine label and package. Tell each of your healthcare providers about all your medical conditions, allergies, and all medicines you use. What is fluticasone nasal? Fluticasone nasal (for the nose) is a steroid medicine that is used to treat nasal congestion, sneezing, runny nose, and itchy or watery eyes caused by seasonal or year-round allergies. The Xhance brand of this medicine is for use only in adults. Veramyst may be used in children as young as 2 years old. Flonase is for use in adults and children who are at least 4 years old. Fluticasone nasal may also be used for purposes not listed in this medication guide. What should I discuss with my healthcare provider before using fluticasone nasal? You should not use fluticasone nasal if you are allergic to it. Fluticasone can weaken your immune system, making it easier for you to get an infection or worsening an infection you already have or recently had. Tell your doctor about any illness or infection youhave had within the past several weeks. Tell your doctor if you have ever had: sores or ulcers inside your nose; injury of or surgery on your nose; glaucoma or cataracts; liver disease; diabetes; a weak immune system; or any type of infection (bacterial, fungal, viral, or parasitic). If you use fluticasone nasal without a prescription and you have any medical conditions, ask a doctor or pharmacist if this medicine is safe for you. Tell your doctor if you are or breast-feeding. How should I use fluticasone nasal? Follow all directions on your prescription label and read all medication guides or instruction sheets. Use the medicine exactly as directed. Do not share this medicine with another person, even if they have the same symptoms you have. Your dose will depend on the fluticasone brand or strength you use, and your dose may change once your symptoms improve. Follow all dosing instructions very carefully. A child using the nasal spray should be supervised by an adult. Read and carefully follow any Instructions for Use provided with your medicine. Ask your doctor or pharmacist if you do not understand these instructions. Shake the nasal spray just before each use. If you switched to fluticasone from another steroid medicine, you should not stop using it suddenly. Follow your doctor's instructions about tapering your dose. It may take several days before your symptoms improve. Keep using the medication as directed and tell your doctor if your symptoms do not improve after a week of treatment. Store fluticasone nasal in an upright position at room temperature, away from moisture and heat. Throw the spray bottle away after you have used 120 sprays, even if there is still medicine left in the bottle. What happens if I miss a dose? Use the medicine as soon as you can, but skip the missed dose if it is almost time for your next dose. Do not use two doses at one time. What happens if I overdose? Seek emergency medical attention or call the Poison Help line at . An overdose of fluticasone nasal is not expected to produce life threatening symptoms. jail use of steroid medicine can lead to glaucoma, cataracts, thinning skin, easy bruising, changes in bodyfat (especially in your face, neck, back, and waist), increased acne or facial hair, menstrual problems, impotence, or loss of interest in sex. What should I avoid while using fluticasone nasal? Avoid getting the spray in your eyes or mouth. If this does happen, rinse with water. Avoid being near people who are sick or have infections. Call your doctor for preventive treatment if you are exposed to chickenpox or measles. These conditions can be serious or even fatal in peoplewho are using fluticasone nasal. What are the possible side effects of fluticasone nasal? Get emergency medical help if you have signs of an allergic reaction: hives, rash; feeling light-headed; difficult breathing; swelling of your face, lips, tongue, or throat. Call your doctor at once if you have: severe or ongoing nosebleeds; noisy breathing, runny nose, or crusting around your nostrils; redness, sores, or white patches in your mouth or throat; fever, chills, body aches; blurred vision, eye pain, or seeing halos around lights; any wound that will not heal; or signs of a hormonal disorder--worsening tiredness or muscle weakness, feeling light-headed, nausea,vomiting. Steroid medicine can affect growth in children. Tell your doctor if your child is not growing at a normal rate while using this medicine. Common side effects may include: minor nosebleed, burning or itching in your nose; sores or white patches inside or around your nose; cough, trouble breathing; headache, back pain; sinus pain, sore throat, fever; or nausea, vomiting. This is not a complete list of side effects and others may occur. Call your doctor for medical advice about side effects. You may report side effects to FDA at 8-097-ANS-3594. What other drugs will affect fluticasone nasal? Tell your doctor about all your other medicines, especially: antifungal medicine; or antiviral medicine to treat hepatis C or HIV/AIDS. This list is not complete. Other drugs may affect fluticasone nasal, including prescription and gbdo-uoh-jabxhig medicines, vitamins, and herbal products. Not all possible drug interactions are listed here. Where can I get more information? Your pharmacist can provide more information about fluticasone nasal. Remember, keep this and all other medicines out of the reach of children, never share your medicines with others, and use this medication only for the indication prescribed. Every effort has been made to ensure that the information provided by [employer] ('[employer]') is accurate, up-to-date, and complete, but no guarantee is made to that effect. Drug information contained herein may be time sensitive. [employer] information has been compiled for use by healthcare practitioners and consumers in the [place] and therefore [employer] does not warrant that uses outside of the [place] are appropriate, unless specifically indicated otherwise. [employer] drug information does not endorse drugs, diagnose patients or recommend therapy. [employer] drug information isan informational resource designed to assist licensed healthcare practitioners in caring for their p atients and/or to serve consumers viewing this service as a supplement to, and not a substitute for, the expertise, skill, knowledge and judgment of healthcare practitioners. The absence of a warningfor a given drug or drug combination in no way should be construed to indicate that the drug or drug combination is safe, effective or appropriate for any given patient. [employer] does not assume any responsibility for any aspect of healthcare administered with the aid of information [employer] provides. The information contained herein is not intended to cover all possible uses, directions, precautions, warnings, drug interactions, allergic reactions, or adverse effects. If you have questions about the drugs you are taking, check with your doctor, nurse or pharmacist. Copyright 0331-9058 [employer] Version: 10. Revision Date: 09/11/2019. Education Materials Viral Upper Respiratory Illness (Adult) You have a viral upper respiratory illness (URI), which is another term for the common cold. This illness is contagious during the first few days. It is spread through the air by coughing and sneezing. It may also be spread by direct contact (touching the sick person and then touching your own eyes, nose, or mouth). Frequent handwashing will decrease risk of spread. Most viral illnesses go away within 7 to 10 days with rest and simple home remedies. Sometimes the illness may last for several weeks. Antibiotics will not kill a virus, and they are generally not prescribed for this condition. Home care If symptoms are severe, rest at home for the first 2 to 3 days. When you resume activity, don't letyourself get too tired. Don't smoke. If you need help stopping, talk with your healthcare provider. Avoid being exposed to cigarette smoke (yours or others ). You may use acetaminophen or ibuprofen to control pain and fever, unless another medicine was prescribed. If you have chronic liver or kidney disease, have ever had a stomach ulcer or gastrointestinal bleeding, or are taking blood-thinning medicines, talk with your healthcare provider before using these medicines. Aspirin should never be given to anyone under 18 years of age who is ill with a viral infection or fever. It may cause severe liver or brain damage. Your appetite may be poor, so a light diet is fine. Stay well hydrated by drinking 6 to 8 glasses of fluids per day (water, soft drinks, juices, tea, or soup). Extra fluids will help loosen secretions in the nose and lungs. Lfuz-vvq-wvhmsbf cold medicines will not shorten the length of time you re sick, but they may be helpful for the following symptoms: cough, sore throat, and nasal and sinus congestion. If you take prescription medicines, ask your healthcare provider or pharmacist which nvue-uch-dehgnmq medicines are safe to use. (Note: Don't use decongestants if you have high blood pressure.) Follow-up care Follow up with your healthcare provider, or as advised. When to seek medical advice Call your healthcare provider right away if any of these occur: Cough with lots of colored sputum (mucus) Severe headache; face, neck, or ear pain Difficulty swallowing due to throat pain Fever of 100.4 F (38 C) or higher, or as directed by your healthcare provider Call 911 Call 911 if any of these occur: Chest pain, shortness of breath, wheezing, or difficulty breathing Coughing up blood Very severe pain with swallowing, especially if it goes along with a muffled voice [phone] [employer]. [address] [place] [address]. All rights reserved. This information is not intended as a substitute for professional medical care. Always follow yourhealthcare professional's instructions. Additional Information VACCINATE! IT SAVES LIVES! Members of the community who have not yet received the COVID-19 vaccine and would like to receive it can visit one of [facility] vaccine clinics. There are many vaccine clinic locations within the [facility]. For locations and available times, please visit [email or web address]. It is important to note that some COVID mobile vaccine clinics are held outdoors and may be canceled in rainy orstormy conditions. To learn more about pediatric vaccinations (ages 5-11), we invite you to visit the [facility] webpage. [email or web address] learn more about the COVID-19 vaccine, we invite you to visit the [facility] website for a list of frequently asked questions. [email or web address] [facility] Patient Portal Access Instructions: Stay connected with your healthcare team and access your personal medical information anytime with the [facility] Patient Portal. If you would like a full copy of your medical records please contact the [facility] Medical Records Department Wednesday through Wednesday between 8a.m. and 4:30p.m. Please follow the directions below to access the portal: 1.Access the email account you provided upon registration to the special care hospital.2.Look for an invitation email from [facility].3.Open the email and access the invitation link: Accept Invitation to [facility].Fill in the required hester to create your account. Sign into www.[employer] with your username and password that you created in the above steps to stay up to date. You can then view a summary of results, a summary of your visits, and the ability to download your summaries to your computer or send the information securely to a physician. Remember that your healthcare information is confidential, so carefully consider who you will allow to register on the [facility] Patient Portal for access to your information. You can also access the [facility] Patient Portal on the [employer]. Simply click on Health Records under [employer] and then click on the [employer] logo. HOW TO SAFELY DISPOSE OF PRESCRIPTION MEDICATIONS Please use one of the following methods to safely dispose of your unused medications. 1.Use a drug disposal kit: the drug disposal pouch allows you to safely discard your old and unuseddrugs. Ask your nurse to give you one when you are discharged.2.Visit a local take-back location: Many local pharmacies and police departments have programs that collect old and unwanted prescriptiondrugs. Call your local pharmacy or go to http://[email or web address]/[email or web address] to find one close to you.3.Make use of household items: Use cat litter or old coffee grounds to dispose medications if other options arenot available. Mix your drugs with these household products, seal them in an airtight container andthrow it into the garbage. Call [facility]: [phone] to be sure your drugs can be disposed of in this way. Some medicines may require a different approach.4.Never flush your medications down the toilet. IF YOU HAVE BEEN PRESCRIBED AN OPIOIDS FOR PAIN If you have been prescribed an opioid (such as hydrocodone, oxycodone or morphine), it is critical to understand the possible side effects and risks of opioid pain medications. Even when taken as directed, opioids can have several side effects including: Tolerance, meaning you might need to take more of a medication for the same pain relief. Nausea, vomiting and/or constipation. Sleepiness, dizziness, dry mouth, confusion, depression or itching. Physical dependence, meaning you have withdrawal symptoms when a medication is stopped ? this can develop within a few days. KNOW YOUR RESPONSIBILITIES It is important to know exactly how much and how often to take the opioid pain medications you are prescribed. Never take opioids in higher amounts or more often than prescribed. Do not combine opioids with alcohol or other drugs that cause drowsiness, such as benzodiazepines, also known as benzos,including diazepam and alprazolam, muscle relaxants or sleep aids. Never sell or share prescriptionopioids. This is illegal. Store opioids in a secure place and out of reach of others (including children, family, friends and visitors). The last page(s) of this document has been signed and retained as a CHART COPY Signatures Patient Education Materials URI, Viral, No Abx (Adult) Medication Leaflets fluticasone nasal My discharge plan and instructions have been reviewed and explained to me and I,ALBANIA RAMSEY understand my current condition and have read and understand these discharge instructions. I have received a written copy of the plan/instructions. If I have questions, I am aware that I should contact my doctor. 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 It does not appear serious at this time. But symptoms of a more serious problem, such as a mild brain injury (concussion) or bruising or bleeding in the brain, may appear later. For this reason, you or someone caring for you will need to watch for the symptoms listed below. Once you re home, also be sure to follow any care instructions you re given. Home care Watch for the following symptoms Seek emergency medical care if you have any of these symptoms over the next hours to days: Headache Nausea or vomiting Dizziness Sensitivity to light or noise Unusual sleepiness or grogginess Trouble falling asleep Personality changes Vision changes Memory loss Confusion Trouble walking or clumsiness Loss of consciousness (even for a short time) Inability to be awakened Stiff neck Weakness or numbness in any part of the body Seizures General care If you were prescribed medicines for pain, use them as directed. Note: Don t take other medicines for pain without talking to your provider first. To help reduce swelling and pain, apply a cold source to the injured area for up to 20 minutes at atime. Do this as often as directed. Use a cold pack or bag of ice wrapped in a thin towel. Never apply a cold source directly to the skin. If you have cuts or scrapes as a result of your head injury, care for them as directed. For the next 24 hours (or longer, if instructed): oDon t drink alcohol or use sedatives or other medicines that make you sleepy. oDon t drive or operate machinery. oDon t do anything strenuous, such as heavy lifting or straining. oLimit tasks that require concentration. This includes reading, using a smartphone or computer, watching TV, and playing video games. oDon t return to sports or other activities that could result in another head injury. Follow-up care Follow up with your healthcare provider, or as directed. If imaging tests were done, they will be reviewed by a doctor. You will be told the results and any new findings that may affect your care. When to seek medical advice Call your healthcare provider right away if any of these occur: Pain doesn t get better or worsens New or increased swelling or bruising Fever of 100.4 F (38 C) or higher, or as directed by your provider Increased redness, warmth, drainage, or bleeding from the injured area Fluid drainage or bleeding from the nose or ears Any depression or bony abnormality in the injured area Persistent confusion or lethargy Bruising behind the ears or bruising around the eyes [phone] [employer]. [address] [place] [address], [place] [address]. All rights reserved. This information is not intended as a substitute for professional medical care. Always follow yourhealthcare professional's instructions. 06/23/2022 12:00:29 Hyperventilation Syndrome Hyperventilation Syndrome Hyperventilation syndrome is the medical term for losing control of your breathing. You may find yourself breathing too fast or too deeply. This can be triggered by pain, anxiety, or emotional stress. If hyperventilation continues for more than a few minutes, it can lead to a number of frightening symptoms, such as: Numbness and tingling of the hands, feet, and face Clenching of the fingers or toes Dizziness Feeling like you can't get enough air Chest pains Fainting or feeling like you are going to faint Once these symptoms begin, it is often hard to stop them, because they lead to a cycle of more anxiety and more hyperventilation. It is important to understand that this is not a life-threatening condition. It will pass once you are able to relax. Relaxation and stress-management techniques can be learned and practiced when you are not hyperventilating. These techniques can help in the event of a future attack. Home care Rest today until you feel back to normal. If symptoms return, take the following steps to care for yourself: Sit or lie down. Remember that what is happening to you is temporary and will pass. Use the relaxation methods you have learned. Note: It is no longer recommended to breathe into a paper bag. Follow-up care Follow up with your healthcare provider, or as advised. When to seek medical advice Call your healthcare provider right away if any of these occur: Fever of 100.4 F (38 C) or higher, or as directed by your healthcare provider Redness, pain, or swelling of the leg Ringing in your ears Severe headache Call 911 Call 911 if any of these occur: Weakness or fainting Increasing shortness of breath Coughing up blood Chest pain that is made worse with each breath [phone] [employer]. [address] [place] [address]. All rights reserved. This information is not intended as a substitute for professional medical care. Always follow yourhealthcare professional's instructions. Follow Up Care 06/23/2022 10:27:51 With:[facility] Address: When:2-4 days With:TERESA AGUILAR MD Address: [address] [place] [address]- When:2-4 days With:Go to emergency room if symptoms worsen Address:Unknown When:2-4 days [facility] 10-11-2022 Note Discharge Instructions Thank you for allowing [facility] to assist you with your healthcare needs. The following is importantdischarge information regarding your hospital visit. 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 No qualifying data available. Post Acute Orders No qualifying data available. You Need to Schedule the Following Appointments Follow Up with [facility] When Within 2-4 days Where: Follow Up with TERESA AGUILAR MD When Within 2-4 days Where: [address] [place] [address]- Follow Up with Go to emergency room if symptoms worsen When Within 2-4 days Allergies Demerol HCl (Hives) Desyrel (blotches over body) predniSONE (stomach problems) erythromycin (rash) morphine (rash over body) doxycycline (Hives) Medications Please ask your primary doctor or pharmacist before taking any other medication not listed, including over the counter drugs, herbal medications, vitamins and or supplements as they may interact withyour home medications. What How Much When Why Instructions Last Dose New LORazepam (Ativan 1 mg oral tablet) 1 tab(s) by mouth Three (3) times a day as needed for as needed for anxiety Hyperventilation Duration: 1 Days Printed Prescription Unchanged acetaminophen-hydrocodone ([place] 325- 5 mg oral tablet) 1 tab(s) by mouth Every 6 hours Ankle sprain Duration: 2 Days Unchanged albuterol (ProAir HFA MDI (90 mcg/ inh) inhalation aerosol) 1 puff(s) by inhalation Four (4) times a day as needed for for wheezing Unchanged albuterol-ipratropium (DuoNeb 0.5 mg-2.5 mg/ 3 mL inhalation solution) 3 Milliliter by inhalation Four (4) times a day Unchanged benztropine (benztropine 1 mg oral tablet) 1 tab(s) by mouth Two (2) times a day Unchanged buPROPion (buPROPion 150 mg/ 24 hours (XL) oral tablet, extended release) 1 tab(s) by mouth Every 24 hours Unchanged escitalopram (Lexapro 5 mg oral tablet) 1 1/2 tablet by mouth Every day Unchanged lamoTRIgine (Lamictal 100 mg oral tablet) 1 tab(s) by mouth Once a day Unchanged lamoTRIgine (lamoTRIgine 100 mg oral tablet) 1 tab(s) by mouth Two (2) times a day Unchanged meloxicam (meloxicam 15 mg oral tablet) take 1 tablet by mouth once daily with food Unchanged Misc Medication (RA MELATONIN 10 MG TABLET) take 1 tablet by mouth at bedtime if needed Unchanged naproxen (Naprosyn 500 mg oral tablet) 1 tab(s) by mouth Twice daily with meals as needed for Pain Unchanged naproxen (Naprosyn 500 mg oral tablet) 1 tab(s) by mouth Twice daily with meals as needed for Pain Duration: 7 Days Unchanged omeprazole (NF) (omeprazole 20 mg oral delayed release capsule (NF)) 1 cap by mouth Once a day Unchanged prazosin (prazosin 1 mg oral capsule) 1 cap by mouth Three (3) times a day Unchanged QUEtiapine (SEROquel 300 mg oral tablet) 1 tab(s) by mouth Daily at bedtime Unchanged sertraline (sertraline 50 mg oral tablet) 1 tab(s) by mouth Every day Please take this list to your next doctor s visit. Bring all medications you take, including over the counter medications, herbals and other supplements with you to your doctor s visit. Patients and families are reminded to discard old lists and to update any records with all medication providers or retail pharmacies. Education Materials Head Injury (Adult) You have a head injury. It does not appear serious at this time. But symptoms of a more serious problem, such as a mild brain injury (concussion) or bruising or bleeding in the brain, may appear later. For this reason, you or someone caring for you will need to watch for the symptoms listed below. Once you re home, also be sure to follow any care instructions you re given. Home care Watch for the following symptoms Seek emergency medical care if you have any of these symptoms over the next hours to days: Headache Nausea or vomiting Dizziness Sensitivity to light or noise Unusual sleepiness or grogginess Trouble falling asleep Personality changes Vision changes Memory loss Confusion Trouble walking or clumsiness Loss of consciousness (even for a short time) Inability to be awakened Stiff neck Weakness or numbness in any part of the body Seizures General care If you were prescribed medicines for pain, use them as directed. Note: Don t take other medicines for pain without talking to your provider first. To help reduce swelling and pain, apply a cold source to the injured area for up to 20 minutes at atime. Do this as often as directed. Use a cold pack or bag of ice wrapped in a thin towel. Never apply a cold source directly to the skin. If you have cuts or scrapes as a result of your head injury, care for them as directed. For the next 24 hours (or longer, if instructed): oDon t drink alcohol or use sedatives or other medicines that make you sleepy. oDon t drive or operate machinery. oDon t do anything strenuous, such as heavy lifting or straining. oLimit tasks that require concentration. This includes reading, using a smartphone or computer, watching TV, and playing video games. oDon t return to sports or other activities that could result in another head injury. Follow-up care Follow up with your healthcare provider, or as directed. If imaging tests were done, they will be reviewed by a doctor. You will be told the results and any new findings that may affect your care. When to seek medical advice Call your healthcare provider right away if any of these occur: Pain doesn t get better or worsens New or increased swelling or bruising Fever of 100.4 F (38 C) or higher, or as directed by your provider Increased redness, warmth, drainage, or bleeding from the injured area Fluid drainage or bleeding from the nose or ears Any depression or bony abnormality in the injured area Persistent confusion or lethargy Bruising behind the ears or bruising around the eyes [phone] [employer]. [address] [place], [place] [id number]. All rights reserved. This information is not intended as a substitute for professional medical care. Always follow yourhealthcare professional's instructions. Hyperventilation Syndrome Hyperventilation syndrome is the medical term for losing control of your breathing. You may find yourself breathing too fast or too deeply. This can be triggered by pain, anxiety, or emotional stress. If hyperventilation continues for more than a few minutes, it can lead to a number of frightening symptoms, such as: Numbness and tingling of the hands, feet, and face Clenching of the fingers or toes Dizziness Feeling like you can't get enough air Chest pains Fainting or feeling like you are going to faint Once these symptoms begin, it is often hard to stop them, because they lead to a cycle of more anxiety and more hyperventilation. It is important to understand that this is not a life-threatening condition. It will pass once you are able to relax. Relaxation and stress-management techniques can be learned and practiced when you are not hyperventilating. These techniques can help in the event of a future attack. Home care Rest today until you feel back to normal. If symptoms return, take the following steps to care for yourself: Sit or lie down. Remember that what is happening to you is temporary and will pass. Use the relaxation methods you have learned. Note: It is no longer recommended to breathe into a paper bag. Follow-up care Follow up with your healthcare provider, or as advised. When to seek medical advice Call your healthcare provider right away if any of these occur: Fever of 100.4 F (38 C) or higher, or as directed by your healthcare provider Redness, pain, or swelling of the leg Ringing in your ears Severe headache Call 911 Call 911 if any of these occur: Weakness or fainting Increasing shortness of breath Coughing up blood Chest pain that is made worse with each breath [phone] [employer]. [address] [place] [address], [place] [address]. All rights reserved. This information is not intended as a substitute for professional medical care. Always follow yourhealthcare professional's instructions. Additional Information VACCINATE! IT SAVES LIVES! Members of the community who have not yet received the COVID-19 vaccine and would like to receive it can visit one of [facility] vaccine clinics. There are many vaccine clinic locations within the [facility]. For locations and available times, please visit [email or web address]. It is important to note that some COVID mobile vaccine clinics are held outdoors and may be canceled in rainy orstormy conditions. To learn more about pediatric vaccinations (ages 5-11), we invite you to visit the [facility] webpage. [email or web address] learn more about the COVID-19 vaccine, we invite you to visit the [facility] website for a list of frequently asked questions. [email or web address] [facility] Patient Portal Access Instructions: Stay connected with your healthcare team and access your personal medical information anytime with the [facility] Patient Portal. If you would like a full copy of your medical records please contact the [facility] Medical Records Department Wednesday through Wednesday between 8a.m. and 4:30p.m. Please follow the directions below to access the portal: 1.Access the email account you provided upon registration to the special care hospital.2.Look for an invitation email from [facility].3.Open the email and access the invitation link: Accept Invitation to [facility]4.Fill in the required hester to create your account. Sign into [email or web address] with your username and password that you created in the above steps to stay up to date. You can then view a summary of results, a summary of your visits, and the ability to download your summaries to your computer or send the information securely to a physician. Remember that your healthcare information is confidential, so carefully consider who you will allow to register on the [facility] for access to your information. You can also access the [facility] Patient Portal on the [place] leonarda. Simply click on Health Records under [facility]xta and then click on the [facility] logo. HOW TO SAFELY DISPOSE OF PRESCRIPTION MEDICATIONS Please use one of the following methods to safely dispose of your unused medications. 1.Use a drug disposal kit: the drug disposal pouch allows you to safely discard your old and unuseddrugs. Ask your nurse to give you one when you are discharged.2.Visit a local take-back location: Many local pharmacies and police departments have programs that collect old and unwanted prescriptiondrugs. Call your local pharmacy or go to http://bit.ly/8X1We9e to find one close to you.3.Make use of household items: Use cat litter or old coffee grounds to dispose medications if other options arenot available. Mix your drugs with these household products, seal them in an airtight container andthrow it into the garbage. Call [facility]: [phone] to be sure your drugs can be disposed of in this way. Some medicines may require a different approach.4.Never flush your medications down the toilet. IF YOU HAVE BEEN PRESCRIBED AN OPIOIDS FOR PAIN If you have been prescribed an opioid (such as hydrocodone, oxycodone or morphine), it is critical to understand the possible side effects and risks of opioid pain medications. Even when taken as directed, opioids can have several side effects including: Tolerance, meaning you might need to take more of a medication for the same pain relief. Nausea, vomiting and/or constipation. Sleepiness, dizziness, dry mouth, confusion, depression or itching. Physical dependence, meaning you have withdrawal symptoms when a medication is stopped ? this can develop within a few days. KNOW YOUR RESPONSIBILITIES It is important to know exactly how much and how often to take the opioid pain medications you are prescribed. Never take opioids in higher amounts or more often than prescribed. Do not combine opioids with alcohol or other drugs that cause drowsiness, such as benzodiazepines, also known as benzos,including diazepam and alprazolam, muscle relaxants or sleep aids. Never sell or share prescriptionopioids. This is illegal. Store opioids in a secure place and out of reach of others (including children, family, friends and visitors). The last page(s) of this document has been signed and retained as a CHART COPY Signatures Patient Education Materials Head Injury (Adult) Hyperventilation Syndrome Medication Leaflets My discharge plan and instructions have been reviewed and explained to me and I,ALBANIA RAMSEY understand my current condition and have read and understand these discharge instructions. I have received a written copy of the plan/instructions. If I have questions, I am aware that I should contact my doctor. 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 This exam was performed according to our departmental dose optimization program, and includes the following measures where applicable: automated exposure control, adjustment of the mAs and/or kVp according to patient size and/or exam, and an iterative reconstruction algorithm. FINDINGS: There are no acute fractures or dislocations. Alignment is within normal limits. The individual vertebral bodies are intact. The prevertebral soft tissues are unremarkable in appearance. IMPRESSION: No acute fracture. Interpreted by: Joselito Hamilton MD Preliminary Report By: Joselito Hamilton MD Electronically signed By Joselito Hamilton MD Dictated Date: 06/23/2022 11:45:35 AM Prelim Date: 06/23/2022 11:46:36 AM Sign Date: 06/23/2022 11:46:36 AM Ordering Provider: [facility]10-11-2022 Note ORIGINAL HISTORY: Pain, trauma COMPARISON: 29 Jan 2022 TECHNIQUE: Routine non-contrast head CT with sagittal and coronal reconstructions This exam was performed according to our departmental dose optimization program, and includes the following measures where applicable: automated exposure control, adjustment of the mAs and/or kVp according to patient size and/or exam, and an iterative reconstruction algorithm. FINDINGS: The ventricles and sulci are normal in size and configuration. There are no abnormal intra or extra-axial fluid collections. Stokes-white matter differentiation is maintained. The calvaria and the bones of the base of the skull are intact. IMPRESSION: Unremarkable examination. Interpreted by: Joselito Hamilton MD Preliminary Report By: Joselito Hamilton MD Electronically signed By Joselito Hamilton MD Dictated Date: 06/23/2022 11:38:29 AM Prelim Date: 06/23/2022 11:39:22 AM Sign Date: 06/23/2022 11:39:22 AM Ordering Provider: [address]11-2022 Note ORIGINAL HISTORY: Pain, trauma COMPARISON: No TECHNIQUE: Cervical spine CT with sagittal and coronal reconstructions. This exam was performed according to our departmental dose optimization program, and includes the following measures where applicable: automated exposure control, adjustment of the mAs and/or kVp according to patient size and/or exam, and an iterative reconstruction algorithm. FINDINGS: There are no acute fractures or dislocations. Alignment is within normal limits. The individual vertebral bodies are intact. The prevertebral soft tissues are unremarkable in appearance. IMPRESSION: No acute fracture. Interpreted by: Joselito Hamilton MD Preliminary Report By: Joselito Hamilton MD Electronically signed By Joselito Hamilton MD Dictated Date: 06/23/2022 11:45:35 AM Prelim Date: 06/23/2022 11:46:36 AM Sign Date: 06/23/2022 11:46:36 AM Ordering Provider: [facility]10-11-2022 Note ORIGINAL HISTORY: Pain, trauma COMPARISON: 29 Jan 2022 TECHNIQUE: Routine non-contrast head CT with sagittal and coronal reconstructions This exam was performed according to our departmental dose optimization program, and includes the following measures where applicable: automated exposure control, adjustment of the mAs and/or kVp according to patient size and/or exam, and an iterative reconstruction algorithm. FINDINGS: The ventricles and sulci are normal in size and configuration. There are no abnormal intra or extra-axial fluid collections. Stokes-white matter differentiation is maintained. The calvaria and the bones of the base of the skull are intact. IMPRESSION: Unremarkable examination. Interpreted by: Joselito Hamilton MD Preliminary Report By: Joselito Hamilton MD Electronically signed By Joselito Hamilton MD Dictated Date: 06/23/2022 11:38:29 AM Prelim Date: 06/23/2022 11:39:22 AM Sign Date: 06/23/2022 11:39:22 AM Ordering Provider: [facility]09-28-2022 Instructions* Patient Instructions* Nga Ferrer APRN.CNP - 06/10/2022 11:03 AM EDT Schedule appointment for physical therapy to work on balance. Be mindful of position changes. Continue with NSAIDS such as ibuprofen 600-800 mg every 6-8 hours as needed for pain. May apply iceand heat the area. Follow up as needed or sooner if symptoms are not improving. documented in [facility] History of Present illness Narrative* Nga Ferrer APRN.NEAL - 06/10/2022 10:40 AM EDT This is a 61 year old female who presents today with: Patient presents with: Acute Visit: falls HISTORY OF PRESENT ILLNESS: Albania Ramsey is a 61 year old female. Patient presents with: Acute Visit: falls Here in the office for falls. Has been falling about 3 times per day for the past 2 weeks. These falls are new. No dizziness or tripping noted. Denies chest pain, palpitations, or shortness of breath. Will lose footing and falls backwards. Fell yesterday onto back and now having low back pain. Painis dull and sharp at times. Has been using tylenol and ice which is mildly helpful. PAST MEDICAL HISTORY: PAST MEDICAL HISTORY Diagnosis Date Asthma Bipolar I disorder, most recent episode (or current) unspecified Blood dyscrasia Chronic obstructive pulmonary disease (COPD) (HCC) Dysthymic disorder Depression (non-psychotic) Lumbago Obstructive chronic bronchitis with exacerbation (HCC) COPD Pulmonary embolus (HCC) 25 years prior Schizophrenia (HCC) follows with Dr Bill at [facility] Snoring Tobacco use disorder 1/2 ppd since age of 11 PAST SURGICAL HISTORY Procedure Laterality Date APPENDECTOMY 1984 COLONOSCOPY FLX DX W/COLLJ SPEC WHEN PFRMD 10/19/2018 Colonoscopy COLONOSCOPY FLX DX W/COLLJ SPEC WHEN PFRMD 11/21/2019 Colonoscopy COLSC FLX W/RMVL OF TUMOR POLYP LESION SNARE TQ 04/19/2012 4 polyps - 3 yr follow up EGD TRANSORAL BIOPSY SINGLE/MULTIPLE 04/19/2012 gastritis ESOPHAGOGASTRODUODENOSCOPY TRANSORAL DIAGNOSTIC 11/21/2019 EGD EXC BREAST LES PREOP PLMT RAD MARKER OPEN 1 LES Left 11/18/2016 Mild duct ectasia, benign microcalcifications HERNIA REPAIR HX 90s Lt inguinal LAPAROSCOPY COLECTOMY PARTIAL W/ANASTOMOSIS 12/19/2018 laparscopic right hemicolectomy LAPAROSCOPY SURG CHOLECYSTECTOMY 1982 Cholecystectomy, lap LAPS ABD PRTM&OMENTUM DX W/WO SPEC BR/WA SPX Laparoscopy PAST SURGICAL HISTORY OF 10/27/2010 L5-S1 Microdisckectomy PAST SURGICAL HISTORY OF Left 11/18/2016 breast bx-Dr. Wise SURGICAL ARTHROSCOPY FAM W/CORACOACRM LIGM RLS Right 11/27/2020 Right shoulder arthroscopy, glenohumeral chondroplasty, biceps tenotomy, SAD TOTAL ABDOMINAL HYSTERECT W/WO RMVL TUBE OVARY 1982 Hysterectomy, VALDEMAR ALLERGIES Demoral [Meperidine], Desyrel [Trazodone Hcl], Doxycycline, Erythromycin, Morphine, and Prednisone MEDICATIONS Current Outpatient Medications Medication Sig cholecalciferol, Vitamin D3, (VITAMIN D3) 1,250 mcg (50,000 unit) cap capsule Take 1 capsule by mouth one time a week. omeprazole (PRILOSEC) 20 mg capsule take 1 capsule by mouth twice a day albuterol (PROVENTIL) 2.5 mg /3 mL (0.083 %) nebulizer solution Use 3 mL via nebulizer every 4 hours as needed for wheezing/shortness of breath. Use over 5-15minutes. OXYGEN, HOME THERAPY, 2 L/min by Nasal Cannula route daily at bedtime. mineral oil/hydrophil petrolatum (AQUAPHOR) oint Apply to affected area as needed. Apply liberally to area three times a day. (Patient not taking: Reported on 01/16/2021 ) benzonatate (TESSALON PERLES) 100 mg capsule Take 1 capsule by mouth three times daily as needed for Cough. (Patient not taking: Reported on 11/14/2020 ) guaiFENesin (ROBITUSSIN) 100 mg/5 mL syrup Take 10 mL by mouth three times daily as needed for Cough. (Patient not taking: Reported on 11/14/2020 ) lamoTRIgine (LAMICTAL) 150 mg tablet Take 1 tablet by mouth three times daily as needed. ondansetron orally disintegrating (ZOFRAN ODT) 4 mg disintegrating tablet Take 1 tablet by mouth every 6 hours as needed for Nausea/Vomiting. (Patient not taking: Reported on 10/14/2020 ) albuterol HFA (PROVENTIL HFA, VENTOLIN HFA) 90 mcg/actuation inhaler Inhale 2 Puffs as instructed every 4 hours as needed for Wheezing/Shortness of Breath. prazosin (MINIPRESS) 2 mg cap Take 2 mg by mouth daily at bedtime. sertraline (ZOLOFT) 50 mg tablet Take 50 mg by mouth once daily. Melatonin 5 mg tab Take 5 mg by mouth daily at bedtime. benztropine (COGENTIN) 1 mg tablet Take 1 mg by mouth twice daily. QUEtiapine (SEROQUEL) 300 mg tablet Take 300 mg by mouth daily at bedtime. No current facility-administered medications for this visit. FAMILY HISTORY Problem Relation Age of Onset Cancer Father prostate Prostate Cancer Father Blood Disease Mother Diabetes Mother Colon Cancer Mother Anesthesia Mother Breast Cancer Mother other (Bleeding disorder) Mother Allergies Sister Breast Cancer Other cousin Heart Sister Psychiatry Sister Cervical Cancer Maternal Aunt Diabetes Sister Coronary Artery Disease Sister Hypertension Sister Lipids Sister Stroke Sister Social History Tobacco Use Smoking status: Every Day Packs/day: 0.50 Years: 34.00 Pack years: 17.00 Types: Cigarettes Start date: 10/02/1972 Smokeless tobacco: Never Vaping Use Vaping Use: Never used Substance Use Topics Alcohol use: No Drug use: No REVIEW OF SYSTEMS GENERAL: No weight loss, malaise or fevers/chills HEENT: Negative for frequent or significant headaches, No changes in hearing or vision. NECK: Negative for lumps, goiter, pain and significant neck swelling RESPIRATORY: Negative for cough, hemoptysis, wheezing, dyspnea or shortness of breath CARDIOVASCULAR: Negative for chest pain, leg swelling, orthopnea, or palpitations GI: No nausea, vomiting, or diarrhea/constipation. No hematochezia/melena. No heartburn or reflux symptoms. : No history of dysuria, frequency or incontinence MUSCULOSKELETAL: + Back Pain SKIN: Negative for lesions, rash, and itching ENDOCRINE: Negative for cold or heat intolerance, polyuria, polydipsia and goiter NEURO: + Falls MOOD: Negative for depression, anxiety, or suicidal ideation. EXAM: BP 120/88 Pulse 80 Resp 20 Wt 59 kg (130 lb) BMI 19.77 kg/m PHYSICAL EXAM: General Appearance: Well appearing, alert, in no acute distress, well-hydrated, well nourished. Skin: Skin color, texture, turgor normal, no suspicious rashes or lesions. Head: Normocephalic, no masses, lesions, tenderness or abnormalities. Eyes: Anicteric sclera. Pupils are equally round and reactive to light. Extraocular movements are intact. Ears: External ears normal, canals clear. Tm's pearly stokes. Lungs: Lungs clear to auscultation. No wheezing, rhonchi, rales. Heart: RRR without murmur, gallop, or rubs. No ectopy. Extremities: No deformities, edema, skin discoloration, clubbing or cyanosis. Good capillary refill. Musculoskeletal: No joint swelling, deformity. + Tenderness noted to lumbar spine, full ROM, Negative SLR, no color change or swelling noted. Peripheral Pulses: Normal, Capillary refill <2secs, strong peripheral pulses, Pulses palpable. Neurologic: Gait normal. Reflexes normal and symmetric. Sensation grossly intact., Negative findings: speech normal, mental status intact, cranial nerves 2-12 intact, Romberg negative, muscle strength normal. ASSESSMENT/PLAN: 1. Fall, initial encounter - ICD9: E888.9, ICD10: W19.XXXA (primary diagnosis) - Recommend PT to work on balance, she is currently asymptomatic with the falls. - If symptoms do not improve may need consult to Neurology for further evaluation. 2. Balance problem - ICD9: 781.99, ICD10: R26.89 - CONSULT TO PHYSICAL THERAPY 3. Acute midline low back pain without sciatica - ICD9: 724.2, ICD10: M54.50 - Recommend NSAIDS, Ice/heat to the area. - Denied wanting an xray today. Follow up as needed or sooner if symptoms do not improve. Discussed treatment plan and patient voices understanding. Patient's questions answered appropriately. Medications and potential side effects were discussed and patient voices understanding. Nga Ferrer APRN.NEAL This note was partially generated using [employer] voice recognition system. Note was reviewed for accuracy. There may be minor misspellings or grammar miscues with [employer] voice recognition. documented in this encounterJoint [facility]09-[facility]-2022 Miscellaneous Notes* Telephone Encounter - Machelle Colon RN - 06/08/2022 10:14 AM EDT Patient calls to report 3 falls last week and back ache. Nurse triage completed. Protocol recommends see provider within 3 days. Appointment scheduled. Care advice and when to call back reviewed. Patient verbalizes understanding. Reason for Disposition MILD weakness (i.e., does not interfere with ability to work, go to school, normal activities) (Exception: mild weakness is a chronic symptom) Answer Assessment - Initial Assessment Questions 1. MECHANISM: Walking and falls usually landing on back. Denies head strike. Denies dizzy, light-headed, tripping over anything. Reports, I just loose my balance. 2. DOMESTIC VIOLENCE AND ELDER ABUSE SCREENING: None reported 3. ONSET: Patient reports that falls started a couple weeks back and usually happened around 12-1230 pm. Reports 3 falls last week and last fall was on Wednesday06/05/2022. 4. LOCATION: Buttocks and Back 5. INJURY: Reports Achy Back 6. PAIN: - MILD (1-3): doesn't interfere with normal activities - MODERATE (4-7): interferes with normal activities or awakens from sleep 7. SIZE: No cuts, bruises, or swelling. 8. : No 9. OTHER SYMPTOMS: No dizziness, fever. Does feel weak and reports it has been going on for past couple of weeks. 10. CAUSE: No tripping or dizziness. Just looses balance and falls backwards but uncertain why. Protocols used: Falls and [id number] documented in this encounterJoint [facility]09-07-2022 Miscellaneous Notes* Letter - Mammography Coordinator - 05/20/2022 12:40 PM EDT May 20, 2022 PID: [id number] Albania WilkesGia Ramsey [address] [facility] [address] [place] [address] Dear Ms. Ramsey, We are pleased to inform you that the results of your recent breast imaging exam on 05/20/2022 are normal. Early detection of cancer is very important. We also understand recommendations regarding breast cancer screening are controversial. Please discuss with your primary care provider which strategy is best for you and whether a mammogram is right for you. Your imaging studies and report will be kept on [facility] at [facility] as part of your permanent medical record and are available for your continuing care. Thank you for allowing us to help in meeting your health care needs. Sincerely, Dr. Harvey Interpreting Radiologist [facility] (Normal over 40) documented in this encounterJoint [facility]09-07-2022 History of Present illness Narrative* RT Janay(R) - 05/20/2022 8:30 AM EDT Radiology Service Progress Note PATIENT NAME: Albania Ramsey DATE OF SERVICE: May 20, 2022 TIME: 8:08 AM PATIENT IDENTITY VERIFICATION COMPLETED USING TWO (2) IDENTIFIERS: Name and Date of confirmedby patient verbally. FALL SCREENING: Has the patient had 2 falls in the last year or 1 fall with injury or currently using an Ambulatory Assistive Device (Walker, Cane, Wheelchair, Crutches, etc.)? No PATIENT GENDER DATA: Female. status: : No status: NO. PATIENT RELEVANT IMPLANT DATA REVIEWED: Not Applicable RADIOLOGY DEPARTMENT: Mammography PERIPHERAL IV DATA: Not applicable SIGNED BY: RT Janay(R) May 20, 2022 8:08 AM documented in this encounterJoint [facility]08-29-2022 History of Present illness Narrative* Teresa Aguilar MD - 05/11/2022 2:20 PM EDT Chief Complaint Patient presents with: ER F/U: [facility] on 05/05/22, fell and injured right ankle HPI Albania Ramsey is a 61 year old female who presents here today for an ED follow up. Pt here today with her son for an [facility] visit on 05/05/22. Pt has not been seen in the office in two years. Pt came into [facility] ED on 05/05/22 due to a fall and right ankle pain. She states that forthe past month she has been falling almost daily. She states her falls are unexplained, denies feeling dizzy, light headed, not tripping over anything, legs are not giving out or going weak. She was given a brace to wear and [place] for pain. She states she is not wearing her brace today because she r an out of the wrap that she wears under the brace. Has not used any heat or ice. No swelling of theankle. HPI: 61 year old female just before presentation mechanical fall on gravel with abrasion twisting of herright ankle lateral region. Fell on her buttocks but minimal discomfort, no loss of consciousness and no distal numbness tingling. No other related trauma. Assessment/Plan: Wound to be cleansed and dressed she will be placed in an air stirrup brace. Melly for pain to follow up. Imaging: XR Ankle 05/05/22: IMPRESSION: No acute osseous abnormality. Past medical history, appointments, medications, allergies reviewed. Previous Medical History PAST MEDICAL HISTORY Diagnosis Date Asthma Bipolar I disorder, most recent episode (or current) unspecified Blood dyscrasia Chronic obstructive pulmonary disease (COPD) (HCC) Dysthymic disorder Depression (non-psychotic) Lumbago Obstructive chronic bronchitis with exacerbation (HCC) COPD Pulmonary embolus (HCC) 25 years prior Schizophrenia (HCC) follows with Dr Bill at [facility] Snoring Tobacco use disorder 1/2 ppd since age of 11 Previous Surgical History PAST SURGICAL HISTORY Procedure Laterality Date APPENDECTOMY 1985 COLONOSCOPY FLX DX W/COLLJ SPEC WHEN PFRMD 10/19/2018 Colonoscopy COLONOSCOPY FLX DX W/COLLJ SPEC WHEN PFRMD 11/21/2019 Colonoscopy COLSC FLX W/RMVL OF TUMOR POLYP LESION SNARE TQ 04/19/2012 4 polyps - 3 yr follow up EGD TRANSORAL BIOPSY SINGLE/MULTIPLE 04/19/2012 gastritis ESOPHAGOGASTRODUODENOSCOPY TRANSORAL DIAGNOSTIC 11/21/2019 EGD EXC BREAST LES PREOP PLMT RAD MARKER OPEN 1 LES Left 11/18/2016 Mild duct ectasia, benign microcalcifications HERNIA REPAIR HX 90s Lt inguinal LAPAROSCOPY COLECTOMY PARTIAL W/ANASTOMOSIS 12/19/2018 laparscopic right hemicolectomy LAPAROSCOPY SURG CHOLECYSTECTOMY 1982 Cholecystectomy, lap LAPS ABD PRTM&OMENTUM DX W/WO SPEC BR/WA SPX Laparoscopy PAST SURGICAL HISTORY OF 10/27/2010 L5-S1 Microdisckectomy PAST SURGICAL HISTORY OF Left 11/18/2016 breast bx-Dr. Wise SURGICAL ARTHROSCOPY FAM W/CORACOACRM LIGM RLS Right 11/27/2020 Right shoulder arthroscopy, glenohumeral chondroplasty, biceps tenotomy, SAD TOTAL ABDOMINAL HYSTERECT W/WO RMVL TUBE OVARY 1982 Hysterectomy, VALDEMAR Family History FAMILY HISTORY Problem Relation Age of Onset Cancer Father prostate Prostate Cancer Father Blood Disease Mother Diabetes Mother Colon Cancer Mother Anesthesia Mother Breast Cancer Mother other (Bleeding disorder) Mother Allergies Sister Breast Cancer Other cousin Heart Sister Psychiatry Sister Cervical Cancer Maternal Aunt Diabetes Sister Coronary Artery Disease Sister Hypertension Sister Lipids Sister Stroke Sister Patient Allergies ALLERGIES Allergen Reactions Demoral [Meperidine] Rash Desyrel [Trazodone * Rash Doxycycline Hives Erythromycin Rash Morphine Swelling Prednisone Rash Current Medications Current Outpatient Medications on File Prior to Visit Medication Sig omeprazole (PRILOSEC) 20 mg capsule take 1 capsule by mouth twice a day albuterol (PROVENTIL) 2.5 mg /3 mL (0.083 %) nebulizer solution Use 3 mL via nebulizer every 4 hours as needed for wheezing/shortness of breath. Use over 5-15minutes. predniSONE (DELTASONE) 10 mg tablet Take 6 pills (all at once) on day 1, 5 pills on day 2, 4 pills on day 3, 3 pills on day 4, 2 pills on day 5, and 1 pill on day 6. meloxicam (MOBIC) 7.5 mg tablet Take 1 tablet by mouth once daily. OXYGEN, HOME THERAPY, 2 L/min by Nasal Cannula route daily at bedtime. mineral oil/hydrophil petrolatum (AQUAPHOR) oint Apply to affected area as needed. Apply liberally to area three times a day. (Patient not taking: Reported on 01/16/2021 ) benzonatate (TESSALON PERLES) 100 mg capsule Take 1 capsule by mouth three times daily as needed for Cough. (Patient not taking: Reported on 11/14/2020 ) guaiFENesin (ROBITUSSIN) 100 mg/5 mL syrup Take 10 mL by mouth three times daily as needed for Cough. (Patient not taking: Reported on 11/14/2020 ) lamoTRIgine (LAMICTAL) 150 mg tablet Take 1 tablet by mouth three times daily as needed. ondansetron orally disintegrating (ZOFRAN ODT) 4 mg disintegrating tablet Take 1 tablet by mouth every 6 hours as needed for Nausea/Vomiting. (Patient not taking: Reported on 10/14/2020 ) albuterol HFA (PROVENTIL HFA, VENTOLIN HFA) 90 mcg/actuation inhaler Inhale 2 Puffs as instructed every 4 hours as needed for Wheezing/Shortness of Breath. prazosin (MINIPRESS) 2 mg cap Take 2 mg by mouth daily at bedtime. sertraline (ZOLOFT) 50 mg tablet Take 50 mg by mouth once daily. Melatonin 5 mg tab Take 5 mg by mouth daily at bedtime. benztropine (COGENTIN) 1 mg tablet Take 1 mg by mouth twice daily. QUEtiapine (SEROQUEL) 300 mg tablet Take 300 mg by mouth daily at bedtime. No current facility-administered medications on file prior to visit. Social History Social History Tobacco Use Smoking status: Every Day Packs/day: 0.50 Years: 34.00 Pack years: 17.00 Types: Cigarettes Start date: 10/02/1972 Smokeless tobacco: Never Vaping Use Vaping Use: Never used Substance Use Topics Alcohol use: No Drug use: No EXAM: BP 118/70 Pulse 78 Resp 18 Wt 60.1 kg (132 lb 6.4 oz) BMI 20.13 kg/m General Appearance: Well appearing, alert, in no acute distress, well-hydrated, well nourished.. Extremities: right ankle; tenderness on palpation and limited ROM. Health Maintenance List SPIROMETRY Never done HEPATITIS C SCREENING Never done HIV SCREENING Never done PNEUMOCOCCAL(2 - PCV) due on 09/17/2006 SHINGRIX VACCINE(1 of 2) Never done DEPRESSION SCREENING due on 05/10/2019 MAMMOGRAM due on 02/15/2021 ANNUAL PCP TEAM CHRONIC DISEASE VISIT due on 10/24/2021 COVID-19 VACCINE(4 - Booster for Moderna series) due on 01/02/2022 INFLUENZA(1) due on 05/14/2022 COLORECTAL CANCER SCREENING due on 11/20/2022 LIPID SCREEN due on 12/10/2022 DIABETES SCREEN due on 01/31/2023 DTAP,TDAP,TD(3 - Td or Tdap) due on 03/23/2026 ALPHA-1 ANTITRYPSIN DEFICIENCY SCREENING Completed PAP TESTING Discontinued HPV TESTING Discontinued Data reviewed [facility] ER reports and imaging ASSESSMENT/PLAN: 1. Frequent falls - ICD9: V15.88, ICD10: R29.6 (primary diagnosis) Check labs as ordered Pt is going to look into the Life Alert 2. Encounter for screening mammogram for malignant neoplasm of breast - ICD9: V76.12, ICD10: Z12.31 - Encouraged monthly BSE - Follow up for annual exam in one year. - HIPOLITO SCREENING 3. Screening for HIV (human immunodeficiency virus) - ICD9: V73.89, ICD10: Z11.4 - HIV 1 2 COMBO(AG/AB),WITH REFLEX TO DIFFERENTIATION 4. Screening for hepatitis C declined - ICD9: V64.2, ICD10: Z53.20 - HEP C AB IA W/CONF SCRN 5. Sprain of ligament of right ankle, initial encounter - ICD9: 845.00, ICD10: S93.401A Continue with the ankle brace Recommend ice or heat Follow up as needed. Will call with lab results. I agree with the Chief Complaint, ROS, and Past Histories independently gathered by the clinical client support professional and the remaining scribed note accurately describes my personal service to the patient. Medical Decision Making: Problems: Low: Acute, uncomplicated illness or injury Moderate: New problem with uncertain prognosis Data: Unique test(s) ordered: 3+ Risk: Moderate: Drug management Medical Decision Making Level: 4 - Moderate Teresa Aguilar MD The documentation for this note was completed by Lennie Khan Ma acting as scribe for Teresa Aguilar MD. May 11, 2022 2:09 PM. Lennie Khan Ma [facility]* Lennie Khan Ma - 05/11/2022 1:56 PM EDT Falls Risk Intake: Patient age 65 or over, unsteady, or was advised to use special equipment to aid ambulation (i.e., cane or walker)? No Has the patient had two falls in the past year, or one with injury? Yes Does the patient need to use their hands when pushing up from chair, or hold onto furniture when ambulating at home? Yes Is the patient worried about falling? Yes Please inform patient that answering Yes to one or more of the questions above can increase theirrisk of falling Patient is at greater risk for falls. Falls Instruction: Teaching document below - reviewed and given to patient [facility] - FALLS Prevention Safety Plan [facility] Hospital Discharge instructions Patient Education 05/05/2022 17:40:30 Abrasions Abrasions Abrasions are skin scrapes. Their treatment depends on how large and deep the abrasion is. Home care You may be prescribed an antibiotic cream or ointment to apply to the wound. This helps prevent infection. Follow instructions when using this medicine. General care To care for the abrasion, do the following each day for as long as directed by your healthcare provider. oIf you were given a bandage, change it once a day. If your bandage sticks to the wound, soak it inwarm water until it loosens. oWash the area with soap and warm water. You may do this in a sink or under a tub faucet or shower.Rinse off the soap. Then pat the area dry with a clean towel. oIf antibiotic ointment or cream was prescribed, reapply it to the wound as directed. Cover the wound with a fresh nonstick bandage. If the bandage becomes wet or dirty, change it as soon as possible. oSome antibiotic ointments or cream can cause an allergic reaction or dermatitis. This may cause redness, itching and or hives. If this occurs, stop using the ointment immediately and wash off any remaining ointment. You may need to take some allergy medicine to relieve symptoms. You may use acetaminophen or ibuprofen to control pain unless another pain medicine was prescribed.Talk with your healthcare provider before using these medicines if you have chronic liver or kidneydisease or ever had a stomach ulcer or GI bleeding. Don t use ibuprofen in children younger than six months old. Most skin wounds heal within 10 days. But an infection may occur even with treatment. So it s important to watch the wound for signs of infection as listed below. Follow-up care Follow up with your healthcare provider, or as advised. When to seek medical advice Call your healthcare provider right away if any of these occur: Fever of 100.4 F (38 C) or higher, or as directed by your healthcare provider Increasing pain, redness, swelling, or drainage from the wound Bleeding from the wound that does not stop after a few minutes of steady, firm pressure Decreased ability to move any body part near the wound [id number] [employer]. [address] [place] [address], [place] [address]. All rights reserved. This information is not intended as a substitute for professional medical care. Always follow yourhealthcare professional's instructions. 05/05/2022 17:40:17 Ankle Sprain (Adult) Ankle Sprain (Adult) An ankle sprain is a stretching or tearing of the ligaments that hold the ankle joint together. There are no broken bones. An ankle sprain is a common injury for both children and adults. It happens when the ankle turns, twists, or rolls in an awkward way. This can be caused by a sports injury. Or it can happen from doing something as simple as stepping on an uneven surface. Ligaments are made of tough connective tissue. Normally, ligaments stretch a certain amount and then go back to their normal place. A sprain happens when a ligament is forced to stretch more than thenormal amount. A severe sprain can actually tear the ligaments. If you have a severe sprain, you may have felt or heard something like a pop when you were injured. Ankle sprains are given a grade depending on whether they are mild, moderate, or severe: Grade 1 sprain. A mild sprain with minor stretching and damage to the ligament. Grade 2 sprain. A moderate sprain where the ligament is partly torn. Grade 3 sprain. The most severe kind of sprain. The ligament is completely torn. Most sprains take about 4 to 6 weeks to heal. A severe sprain can take several months to recover. Your healthcare provider may order X-rays to be sure you don t have a fracture, or broken bone. The injured area will feel sore. Swelling and pain may make it hard to walk. You may need crutches if walking is painful. Or your provider may have you use a cast boot or air splint. This will dependon the grade of ankle sprain that you have. Home care For a Grade 1 sprain, use RICE (rest, ice, compression, and elevation): Rest your ankle. Don t walk on it. Ice should be used right away to help control swelling. Place an ice pack over the injured area for20 minutes. Do this every 3 to 6 hours for the first 24 to 48 hours. Keep using ice packs to ease pain and swelling as needed. To make an ice pack, put ice cubes in a plastic bag that seals at the top. Wrap the bag in a clean, thin towel or cloth. Never put ice or an ice pack directly on the skin. The ice pack can be put right on the cast, bandage, or splint. As the ice melts, be careful that thecast, bandage, or splint doesn t get wet. If you have a boot, open it to apply an ice pack, unless told otherwise by your provider. Compression devices help to control swelling. They also keep the ankle from moving and support yourinjured ankle. These devices include dressings, bandages, and wraps. Elevate or raise your ankle above the level of your heart when sitting or lying down. This is very important for the first 48 hours. Follow the RICE guidelines for a Grade 2 sprain. This type of sprain will take longer to heal. Yourprovider may have you wear a splint, cast, or brace to keep your ankle from moving. If you have a Grade 3 sprain, you are at risk for long-term ankle instability. In rare cases, surgery may be needed. Your provider may have you wear a short leg cast or a walking boot for 2 to 3 weeks. After 48 hours, it may be helpful to apply heat for 20 minutes several times a day. You can do thiswith a heating pad or warm compress. Or you may want to go back and forth between using ice and heat. Never apply heat directly to the skin. Always wrap the heating pad or warm compress in a clean, thin towel or cloth. You may use tdpz-ric-stchgjn pain medicine (NSAIDS or nonsteroidal anti- inflammatory drugs) to control pain, unless another pain medicine was prescribed. Talk with your provider before using these medicines if you have chronic liver or kidney disease, or have ever had a stomach ulcer or gastrointestinal bleeding. Follow any rehabilitation exercises your provider gives you. These can help you be more flexible and improve your balance and coordination. This is helpful in preventing long-term ankle problems. Prevention To help prevent ankle sprains, it s important to have good strength, balance, and flexibility. Be sure to: Always warm up before you exercise or do something very active Be careful when walking or running on uneven or cracked surfaces Wear shoes that are in good condition and fit well Listen to your body s signals to slow down when you are in pain or tired Follow-up care Any X-rays you had today don t show any broken bones, breaks, or fractures. Sometimes fractures dont show up on the first X-ray. Bruises and sprains can sometimes hurt as much as a fracture. These injuries can take time to heal completely. If your symptoms don t get better or they get worse, talk with your healthcare provider. You may need a repeat X-ray. Follow up with your healthcare provider, or as advised. Check for any warning signs listed below. When to seek medical advice Call your healthcare provider right away if any of these occur: Fever of 100.4 F (38 C) or higher, or as directed by your healthcare provider [place] The injury doesn t seem to be healing The swelling comes back The cast or splint has a bad smell The plaster cast or splint gets wet or soft The fiberglass cast or splint gets wet and does not dry for 24 hours The pain or swelling increases, or redness appears Your toes become cold, blue, numb, or tingly The skin is discolored (looks blue, purple, or stokes), has blisters, or is irritated You re-injure your ankle [phone] [employer] [address] [place] [address]. All rights reserved. This information is not intended as a substitute for professional medical care. Always follow yourhealthcare professional's instructions. Follow Up Care 05/05/2022 17:05:08 With:TERESA AGUILAR MD Address: [address] [place] [address]- When:3-5 days [facility] 08-23-2022 Note Discharge Instructions Thank you for allowing [facility] to assist you with your healthcare needs. The following is importantdischarge information regarding your hospital visit. Diagnosis from Today's Visit Ankle sprain Ankle pain-swelling What to Do Next Instructions from Your Care Team Discharge Home Equipment - Ordered -- Ankle Splint, month(s), 05/05/22 17:38:00 EDT Post Acute Orders No qualifying data available. You Need to Schedule the Following Appointments Follow Up with TERESA AGUILAR MD When Within 3-5 days Where: [address], [place] [id number]- Allergies Demerol HCl (Hives) Desyrel (blotches over body) predniSONE (stomach problems) erythromycin (rash) morphine (rash over body) doxycycline (Hives) Medications Please ask your primary doctor or pharmacist before taking any other medication not listed, including over the counter drugs, herbal medications, vitamins and or supplements as they may interact withyour home medications. What How Much When Why Instructions Last Dose New acetaminophen-hydrocodone ([place] 325- 5 mg oral tablet) 1 tab(s) by mouth Every 6 hours Ankle sprain Duration: 2 Days Printed Prescription Unchanged albuterol (ProAir HFA MDI (90 mcg/ inh) inhalation aerosol) 1 puff(s) by inhalation Four (4) times a day as needed for for wheezing Unchanged albuterol-ipratropium (DuoNeb 0.5 mg-2.5 mg/ 3 mL inhalation solution) 3 Milliliter by inhalation Four (4) times a day Unchanged benztropine (benztropine 1 mg oral tablet) 1 tab(s) by mouth Two (2) times a day Unchanged buPROPion (buPROPion 150 mg/ 24 hours (XL) oral tablet, extended release) 1 tab(s) by mouth Every 24 hours Unchanged escitalopram (Lexapro 5 mg oral tablet) 1 1/2 tablet by mouth Every day Unchanged lamoTRIgine (Lamictal 100 mg oral tablet) 1 tab(s) by mouth Once a day Unchanged lamoTRIgine (lamoTRIgine 100 mg oral tablet) 1 tab(s) by mouth Two (2) times a day Unchanged meloxicam (meloxicam 15 mg oral tablet) take 1 tablet by mouth once daily with food Unchanged Misc Medication (RA MELATONIN 10 MG TABLET) take 1 tablet by mouth at bedtime if needed Unchanged naproxen (Naprosyn 500 mg oral tablet) 1 tab(s) by mouth Twice daily with meals as needed for Pain Unchanged naproxen (Naprosyn 500 mg oral tablet) 1 tab(s) by mouth Twice daily with meals as needed for Pain Duration: 7 Days Unchanged omeprazole (NF) (omeprazole 20 mg oral delayed release capsule (NF)) 1 cap by mouth Once a day Unchanged prazosin (prazosin 1 mg oral capsule) 1 cap by mouth Three (3) times a day Unchanged QUEtiapine (SEROquel 300 mg oral tablet) 1 tab(s) by mouth Daily at bedtime Unchanged sertraline (sertraline 50 mg oral tablet) 1 tab(s) by mouth Every day Please take this list to your next doctor s visit. Bring all medications you take, including over the counter medications, herbals and other supplements with you to your doctor s visit. Patients and families are reminded to discard old lists and to update any records with all medication providers or retail pharmacies. Medication Leaflets acetaminophen and hydrocodone (a SEET a MIN oh fen and lenka droe KOE done) Hycet, Lorcet, [place]avin[place], Verdrocet, Vicodin, Xodol, Zamicet What is the most important information I should know about acetaminophen and hydrocodone? MISUSE OF OPIOID MEDICINE CAN CAUSE ADDICTION, OVERDOSE, OR . Keep the medication in a place where others cannot get to it. Taking opioid medicine during may cause life-threatening withdrawal symptoms in the . Fatal side effects can occur if you use opioid medicine with alcohol, or with other drugs that cause drowsiness or slow your breathing. Stop taking this medicine and call your doctor right away if you have skin redness or a rash that spreads and causes blistering and peeling. What is acetaminophen and hydrocodone? Acetaminophen and hydrocodone is a combination medicine used to relieve moderate to severe pain. Acetaminophen and hydrocodone contains an opioid medicine, and may be habit-forming. Acetaminophen and hydrocodone may also be used for purposes not listed in this medication guide. What should I discuss with my healthcare provider before taking acetaminophen and hydrocodone? You should not use this medicine if you are allergic to acetaminophen or hydrocodone, or if you have: severe asthma or breathing problems; or a blockage in your stomach or intestines. Tell your doctor if you have ever had: breathing problems, sleep apnea (breathing stops during sleep); liver disease; a drug or alcohol addiction; kidney disease; a head injury or seizures; urination problems; or problems with your thyroid, pancreas, or gallbladder. If you use opioid medicine while you are , your baby could become dependent on the drug. This can cause life-threatening withdrawal symptoms in the baby after it is born. Babies born dependent on opioids may need medical treatment for several weeks. Ask a doctor before using opioid medicine if you are . Tell your doctor if you notice severe drowsiness or slow breathing in the nursing baby. How should I take acetaminophen and hydrocodone? Follow all directions on your prescription label. Never take this medicine in larger amounts, or for longer than prescribed. An overdose can damage your liver or cause . Tell your doctor if you feel an increased urge to use more of this medicine. Never share this medicine with another person, especially someone with a history of drug abuse or addiction. MISUSE CAN CAUSE ADDICTION, OVERDOSE, OR . Keep the medicine in a place where others cannot get to it. Selling or giving away this medicine is against the law. Measure liquid medicine carefully. Use the dosing syringe provided, or use a medicine dose-measuring device (not a kitchen spoon). If you need surgery or medical tests, tell the doctor ahead of time that you are using this medicine. You should not stop using this medicine suddenly. Follow your doctor's instructions about tapering your dose. Store at room temperature away from moisture and heat. Keep track of your medicine. You should be aware if anyone is using it improperly or without a prescription. Do not keep leftover opioid medication. Just one dose can cause in someone using this medicine accidentally or improperly. Ask your pharmacist where to locate a drug take-back disposal program.If there is no take-back program, flush the unused medicine down the toilet. What happens if I miss a dose? Since this medicine is used for pain, you are not likely to miss a dose. Skip any missed dose if itis almost time for your next dose. Do not use two doses at one time. What happens if I overdose? Seek emergency medical attention or call the Poison Help line at . An overdose of this medicine can be fatal, especially in a child or other person using the medicine without a prescription. Overdose symptoms may include nausea, vomiting, sweating, severe drowsiness, pinpoint pupils, slow breathing, or no breathing. Your doctor may recommend you get naloxone (a medicine to reverse an opioid overdose) and keep it with you at all times. A person caring for you can give the naloxone if you stop breathing or don't wake up. Your caregiver must still get emergency medical help and may need to perform CPR (cardiopulmonary resuscitation) on you while waiting for help to arrive. Anyone can buy naloxone from a pharmacy or local health department. Make sure any person caring foryou knows where you keep naloxone and how to use it. What should I avoid while taking acetaminophen and hydrocodone? Avoid driving or operating machinery until you know how this medicine will affect you. Dizziness ordrowsiness can cause falls, accidents, or severe injuries. Do not drink alcohol. Dangerous side effects or could occur. Ask a doctor or pharmacist before using any other medicine that may contain acetaminophen (sometimes abbreviated as APAP). Taking certain medications together can lead to a fatal overdose. What are the possible side effects of acetaminophen and hydrocodone? Get emergency medical help if you have signs of an allergic reaction: hives; difficulty breathing; swelling of your face, lips, tongue, or throat. Opioid medicine can slow or stop your breathing, and may occur. A person caring for you should give naloxone and/or seek emergency medical attention if you have slow breathing with long pauses,blue colored lips, or if you are hard to wake up. In rare cases, acetaminophen may cause a severe skin reaction that can be fatal. This could occur even if you have taken acetaminophen in the past and had no reaction. Stop taking this medicine and call your doctor right away if you have skin redness or a rash that spreads and causes blistering andpeeling. Call your doctor at once if you have: noisy breathing, sighing, shallow breathing, breathing that stops; a light-headed feeling, like you might pass out; liver problems--nausea, upper stomach pain, tiredness, loss of appetite, dark urine, chinyere-colored stools, jaundice (yellowing of the skin or eyes); low cortisol levels-- nausea, vomiting, loss of appetite, dizziness, worsening tiredness or weakness; o high levels of serotonin in the body--agitation, hallucinations, fever, sweating, shivering, fast heart rate, muscle stiffness, twitching, loss of coordination, nausea, vomiting, diarrhea. Serious breathing problems may be more likely in older adults and in those who are debilitated or have wasting syndrome or chronic breathing disorders. Common side effects include: dizziness, drowsiness, feeling tired; nausea, vomiting, stomach pain; constipation; or headache. This is not a complete list of side effects and others may occur. Call your doctor for medical advice about side effects. You may report side effects to FDA at 1-027-JPI-2877. What other drugs will affect acetaminophen and hydrocodone? You may have breathing problems or withdrawal symptoms if you start or stop taking certain other medicines. Tell your doctor if you also use an antibiotic, antifungal medication, heart or blood pressure medication, seizure medication, or medicine to treat HIV or hepatitis C. Opioid medication can interact with many other drugs and cause dangerous side effects or . Be sure your doctor knows if you also use: cold or allergy medicines, bronchodilator asthma/COPD medication, or a diuretic ('water pill'); medicines for motion sickness, irritable bowel syndrome, or overactive bladder; other opioids--opioid pain medicine or prescription cough medicine; a sedative like Valium--diazepam, alprazolam, lorazepam, Xanax, Klonopin, Versed, and others; drugs that make you sleepy or slow your breathing--a sleeping pill, muscle relaxer, medicine to treat mood disorders or mental illness; drugs that affect serotonin levels in your body--a stimulant, or medicine for depression, Parkinson's disease, migraine headaches, serious infections, or nausea and vomiting. This list is not complete. Other drugs may affect acetaminophen and hydrocodone, including prescription and fepa-upo-kuokwjg medicines, vitamins, and herbal products. Not all possible interactions are listed here. Where can I get more information? Your doctor or pharmacist can provide more information about acetaminophen and hydrocodone. Remember, keep this and all other medicines out of the reach of children, never share your medicines with others, and use this medication only for the indication prescribed. Every effort has been made to ensure that the information provided by [employer] ('[employer]') is accurate, up-to-date, and complete, but no guarantee is made to that effect. Drug information contained herein may be time sensitive. [employer] information has been compiled for use by healthcare practitioners and consumers in the [place] and therefore [employer] does not warrant that uses outside of the [place] are appropriate, unless specifically indicated otherwise. [employer] drug information does not endorse drugs, diagnose patients or recommend therapy. [employer] drug information isan informational resource designed to assist licensed healthcare practitioners in caring for their p atients and/or to serve consumers viewing this service as a supplement to, and not a substitute for, the expertise, skill, knowledge and judgment of healthcare practitioners. The absence of a warningfor a given drug or drug combination in no way should be construed to indicate that the drug or drug combination is safe, effective or appropriate for any given patient. [employer] does not assume any responsibility for any aspect of healthcare administered with the aid of information [facility] provides. The information contained herein is not intended to cover all possible uses, directions, precautions, warnings, drug interactions, allergic reactions, or adverse effects. If you have questions about the drugs you are taking, check with your doctor, nurse or pharmacist. Copyright 9021-8448 [employer]. Version: 16.03. Revision Date: 10/15/2020. Education Materials Abrasions Abrasions are skin scrapes. Their treatment depends on how large and deep the abrasion is. Home care You may be prescribed an antibiotic cream or ointment to apply to the wound. This helps prevent infection. Follow instructions when using this medicine. General care To care for the abrasion, do the following each day for as long as directed by your healthcare provider. oIf you were given a bandage, change it once a day. If your bandage sticks to the wound, soak it inwarm water until it loosens. oWash the area with soap and warm water. You may do this in a sink or under a tub faucet or shower.Rinse off the soap. Then pat the area dry with a clean towel. oIf antibiotic ointment or cream was prescribed, reapply it to the wound as directed. Cover the wound with a fresh nonstick bandage. If the bandage becomes wet or dirty, change it as soon as possible. oSome antibiotic ointments or cream can cause an allergic reaction or dermatitis. This may cause redness, itching and or hives. If this occurs, stop using the ointment immediately and wash off any remaining ointment. You may need to take some allergy medicine to relieve symptoms. You may use acetaminophen or ibuprofen to control pain unless another pain medicine was prescribed.Talk with your healthcare provider before using these medicines if you have chronic liver or kidneydisease or ever had a stomach ulcer or GI bleeding. Don t use ibuprofen in children younger than six months old. Most skin wounds heal within 10 days. But an infection may occur even with treatment. So it s important to watch the wound for signs of infection as listed below. Follow-up care Follow up with your healthcare provider, or as advised. When to seek medical advice Call your healthcare provider right away if any of these occur: Fever of 100.4 F (38 C) or higher, or as directed by your healthcare provider Increasing pain, redness, swelling, or drainage from the wound Bleeding from the wound that does not stop after a few minutes of steady, firm pressure Decreased ability to move any body part near the wound 1138-3225 [employer]. [address] [place] [address]. All rights reserved. This information is not intended as a substitute for professional medical care. Always follow yourhealthcare professional's instructions. Ankle Sprain (Adult) An ankle sprain is a stretching or tearing of the ligaments that hold the ankle joint together. There are no broken bones. An ankle sprain is a common injury for both children and adults. It happens when the ankle turns, twists, or rolls in an awkward way. This can be caused by a sports injury. Or it can happen from doing something as simple as stepping on an uneven surface. Ligaments are made of tough connective tissue. Normally, ligaments stretch a certain amount and then go back to their normal place. A sprain happens when a ligament is forced to stretch more than thenormal amount. A severe sprain can actually tear the ligaments. If you have a severe sprain, you may have felt or heard something like a pop when you were injured. Ankle sprains are given a grade depending on whether they are mild, moderate, or severe: Grade 1 sprain. A mild sprain with minor stretching and damage to the ligament. Grade 2 sprain. A moderate sprain where the ligament is partly torn. Grade 3 sprain. The most severe kind of sprain. The ligament is completely torn. Most sprains take about 4 to 6 weeks to heal. A severe sprain can take several months to recover. Your healthcare provider may order X-rays to be sure you don t have a fracture, or broken bone. The injured area will feel sore. Swelling and pain may make it hard to walk. You may need crutches if walking is painful. Or your provider may have you use a cast boot or air splint. This will dependon the grade of ankle sprain that you have. Home care For a Grade 1 sprain, use RICE (rest, ice, compression, and elevation): Rest your ankle. Don t walk on it. Ice should be used right away to help control swelling. Place an ice pack over the injured area for20 minutes. Do this every 3 to 6 hours for the first 24 to 48 hours. Keep using ice packs to ease pain and swelling as needed. To make an ice pack, put ice cubes in a plastic bag that seals at the top. Wrap the bag in a clean, thin towel or cloth. Never put ice or an ice pack directly on the skin. The ice pack can be put right on the cast, bandage, or splint. As the ice melts, be careful that thecast, bandage, or splint doesn t get wet. If you have a boot, open it to apply an ice pack, unless told otherwise by your provider. Compression devices help to control swelling. They also keep the ankle from moving and support yourinjured ankle. These devices include dressings, bandages, and wraps. Elevate or raise your ankle above the level of your heart when sitting or lying down. This is very important for the first 48 hours. Follow the RICE guidelines for a Grade 2 sprain. This type of sprain will take longer to heal. Yourprovider may have you wear a splint, cast, or brace to keep your ankle from moving. If you have a Grade 3 sprain, you are at risk for long-term ankle instability. In rare cases, surgery may be needed. Your provider may have you wear a short leg cast or a walking boot for 2 to 3 weeks. After 48 hours, it may be helpful to apply heat for 20 minutes several times a day. You can do thiswith a heating pad or warm compress. Or you may want to go back and forth between using ice and heat. Never apply heat directly to the skin. Always wrap the heating pad or warm compress in a clean, thin towel or cloth. You may use wsgf-zjc-llyvoyj pain medicine (NSAIDS or nonsteroidal anti- inflammatory drugs) to control pain, unless another pain medicine was prescribed. Talk with your provider before using these medicines if you have chronic liver or kidney disease, or have ever had a stomach ulcer or gastrointestinal bleeding. Follow any rehabilitation exercises your provider gives you. These can help you be more flexible and improve your balance and coordination. This is helpful in preventing long-term ankle problems. Prevention To help prevent ankle sprains, it s important to have good strength, balance, and flexibility. Be sure to: Always warm up before you exercise or do something very active Be careful when walking or running on uneven or cracked surfaces Wear shoes that are in good condition and fit well Listen to your body s signals to slow down when you are in pain or tired Follow-up care Any X-rays you had today don t show any broken bones, breaks, or fractures. Sometimes fractures dont show up on the first X-ray. Bruises and sprains can sometimes hurt as much as a fracture. These injuries can take time to heal completely. If your symptoms don t get better or they get worse, talk with your healthcare provider. You may need a repeat X-ray. Follow up with your healthcare provider, or as advised. Check for any warning signs listed below. When to seek medical advice Call your healthcare provider right away if any of these occur: Fever of 100.4 F (38 C) or higher, or as directed by your healthcare provider [place] The injury doesn t seem to be healing The swelling comes back The cast or splint has a bad smell The plaster cast or splint gets wet or soft The fiberglass cast or splint gets wet and does not dry for 24 hours The pain or swelling increases, or redness appears Your toes become cold, blue, numb, or tingly The skin is discolored (looks blue, purple, or stokes), has blisters, or is irritated You re-injure your ankle 3925-0251 [employer]. [address] [place] [address]. All rights reserved. This information is not intended as a substitute for professional medical care. Always follow yourhealthcare professional's instructions. Additional Information VACCINATE! IT SAVES LIVES! Members of the community who have not yet received the COVID-19 vaccine and would like to receive it can visit one of [facility] vaccine clinics. There are many vaccine clinic locations within the [facility]. For locations and available times, please visit [email or web address]. It is important to note that some COVID mobile vaccine clinics are held outdoors and may be canceled in rainy orstormy conditions. To learn more about pediatric vaccinations (ages 5-11), we invite you to visit the [facility] webpage. [email or web address] learn more about the COVID-19 vaccine, we invite you to visit the [facility] website for a list of frequently asked questions. [email or web address]://[email or web address]/[email or web address] _[email or web address].pdf [facility] Patient Portal Access Instructions: Stay connected with your healthcare team and access your personal medical information anytime with the [facility] Patient [facility]. If you would like a full copy of your medical records please contact the [facility] Medical Records Department Wednesday through Wednesday between 8a.m. and 4:30p.m. Please follow the directions below to access the portal: 1.Access the email account you provided upon registration to the special care hospital.2.Look for an invitation email from [facility].3.Open the email and access the invitation link: Accept Invitation to [facility]4.Fill in the required hester to create your account. Sign into [email or web address] with your username and password that you created in the above steps to stay up to date. You can then view a summary of results, a summary of your visits, and the ability to download your summaries to your computer or send the information securely to a physician. Remember that your healthcare information is confidential, so carefully consider who you will allow to register on the [facility] Patient Portal for access to your information. You can also access the [facility] Patient Portal on the [employer]. Simply click on Health Records under PPSData and then click on the [facility] logo. HOW TO SAFELY DISPOSE OF PRESCRIPTION MEDICATIONS Please use one of the following methods to safely dispose of your unused medications. 1.Use a drug disposal kit: the drug disposal pouch allows you to safely discard your old and unuseddrugs. Ask your nurse to give you one when you are discharged.2.Visit a local take-back location: Many local pharmacies and police departments have programs that collect old and unwanted prescriptiondrugs. Call your local pharmacy or go to http://bit.ly/8H7Sg8y to find one close to you.3.Make use of household items: Use cat litter or old coffee grounds to dispose medications if other options arenot available. Mix your drugs with these household products, seal them in an airtight container andthrow it into the garbage. Call [facility]: [phone] to be sure your drugs can be disposed of in this way. Some medicines may require a different approach.4.Never flush your medications down the toilet. IF YOU HAVE BEEN PRESCRIBED AN OPIOIDS FOR PAIN If you have been prescribed an opioid (such as hydrocodone, oxycodone or morphine), it is critical to understand the possible side effects and risks of opioid pain medications. Even when taken as directed, opioids can have several side effects including: Tolerance, meaning you might need to take more of a medication for the same pain relief. Nausea, vomiting and/or constipation. Sleepiness, dizziness, dry mouth, confusion, depression or itching. Physical dependence, meaning you have withdrawal symptoms when a medication is stopped ? this can develop within a few days. KNOW YOUR RESPONSIBILITIES It is important to know exactly how much and how often to take the opioid pain medications you are prescribed. Never take opioids in higher amounts or more often than prescribed. Do not combine opioids with alcohol or other drugs that cause drowsiness, such as benzodiazepines, also known as benzos,including diazepam and alprazolam, muscle relaxants or sleep aids. Never sell or share prescriptionopioids. This is illegal. Store opioids in a secure place and out of reach of others (including children, family, friends and visitors). The last page(s) of this document has been signed and retained as a CHART COPY Signatures Patient Education Materials Abrasions Ankle Sprain (Adult) Medication Leaflets acetaminophen and hydrocodone My discharge plan and instructions have been reviewed and explained to me and IROXY LINDA C understand my current condition and have read and understand these discharge instructions. I have received a written copy of the plan/instructions. If I have questions, I am aware that I should contact my doctor. 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 HISTORY: ORDERING SYSTEM PROVIDED HISTORY: Reason for Exam: Rolled ankle, swelling and pain FINDINGS: No acute fracture or dislocation. The ankle mortise is intact. The talar dome is within normal limits. The tarsal bones and joint spaces are unremarkable. No significant soft tissue swelling or radiopaque foreign body. IMPRESSION: No acute osseous abnormality. I have personally reviewed the images of this examination and agree with the resident's findings and interpretation. Interpreted by: Jcarlos Brewer Preliminary Report By: Lluvia Jean Electronically signed By Jcarlos Brweer Dictated Date: 05/05/2022 5:28:43 PM Prelim Date: 05/05/2022 5:31:32 PM Sign Date: 05/05/2022 5:37:13 PM Ordering Provider: [facility]08-23-2022 Note ORIGINAL EXAMINATION: THREE XRAY VIEWS OF THE RIGHT ANKLE 05/05/2022 5:25 pm COMPARISON: None. HISTORY: ORDERING SYSTEM PROVIDED HISTORY: Reason for Exam: Rolled ankle, swelling and pain FINDINGS: No acute fracture or dislocation. The ankle mortise is intact. The talar dome is within normal limits. The tarsal bones and joint spaces are unremarkable. No significant soft tissue swelling or radiopaque foreign body. IMPRESSION: No acute osseous abnormality. I have personally reviewed the images of this examination and agree with the resident's findings and interpretation. Interpreted by: Jcarlos Brewer Preliminary Report By: Lluvia Jean Electronically signed By Jcarlos Brewer Dictated Date: 05/05/2022 5:28:43 PM Prelim Date: 05/05/2022 5:31:32 PM Sign Date: 05/05/2022 5:37:13 PM Ordering Provider: [facility]05-19-2022 Hospital Discharge instructions Patient Education 01/29/2022 17:41:31 Head Injury (Adult) Head Injury (Adult) You have a head injury. It does not appear serious at this time. But symptoms of a more serious problem, such as a mild brain injury (concussion) or bruising or bleeding in the brain, may appear later. For this reason, you or someone caring for you will need to watch for the symptoms listed below. Once you re home, also be sure to follow any care instructions you re given. Home care Watch for the following symptoms Seek emergency medical care if you have any of these symptoms over the next hours to days: Headache Nausea or vomiting Dizziness Sensitivity to light or noise Unusual sleepiness or grogginess Trouble falling asleep Personality changes Vision changes Memory loss Confusion Trouble walking or clumsiness Loss of consciousness (even for a short time) Inability to be awakened Stiff neck Weakness or numbness in any part of the body Seizures General care If you were prescribed medicines for pain, use them as directed. Note: Don t take other medicines for pain without talking to your provider first. To help reduce swelling and pain, apply a cold source to the injured area for up to 20 minutes at atime. Do this as often as directed. Use a cold pack or bag of ice wrapped in a thin towel. Never apply a cold source directly to the skin. If you have cuts or scrapes as a result of your head injury, care for them as directed. For the next 24 hours (or longer, if instructed): oDon t drink alcohol or use sedatives or other medicines that make you sleepy. oDon t drive or operate machinery. oDon t do anything strenuous, such as heavy lifting or straining. oLimit tasks that require concentration. This includes reading, using a smartphone or computer, watching TV, and playing video games. oDon t return to sports or other activities that could result in another head injury. Follow-up care Follow up with your healthcare provider, or as directed. If imaging tests were done, they will be reviewed by a doctor. You will be told the results and any new findings that may affect your care. When to seek medical advice Call your healthcare provider right away if any of these occur: Pain doesn t get better or worsens New or increased swelling or bruising Fever of 100.4 F (38 C) or higher, or as directed by your provider Increased redness, warmth, drainage, or bleeding from the injured area Fluid drainage or bleeding from the nose or ears Any depression or bony abnormality in the injured area Persistent confusion or lethargy Bruising behind the ears or bruising around the eyes [id number] [employer]. [address] [place] [address], [place] [address]. All rights reserved. This information is not intended as a substitute for professional medical care. Always follow yourhealthcare professional's instructions. Follow Up Care 01/29/2022 16:58:09 With:TERESA AGUILAR MD Address: [address] [place] [address]- When:2-4 days [facility] 04-28-2022 History of Present illness Narrative* RT Bea(R) - 01/08/2022 2:10 PM EDT Radiology Service Progress Note PATIENT NAME: Albania Ramsey DATE OF SERVICE: January 08, 2022 TIME: 2:11 PM PATIENT IDENTITY VERIFICATION COMPLETED USING TWO (2) IDENTIFIERS: Name and Date of confirmedby patient verbally. FALL SCREENING: Has the patient had 2 falls in the last year or 1 fall with injury or currently using an Ambulatory Assistive Device (Walker, Cane, Wheelchair, Crutches, etc.)? No PATIENT GENDER DATA: Female. status: : No status: NO. PATIENT RELEVANT IMPLANT DATA REVIEWED: Not Applicable RADIOLOGY DEPARTMENT: General X-ray: Exam(s) Completed: Upper Extremity X- Ray(s): Shoulder, AP / TRUE AP / AXILLARY right PERIPHERAL IV DATA: Not applicable SIGNED BY: RT Bea(R) January 08, 2022 2:11 PM [facility] of Present illness Narrative* Crissy BurnsRt)Kayla - 10/02/2020 10:50 AM EST Radiology Service Progress Note PATIENT NAME: Albania Ramsey DATE OF SERVICE: October 02, 2020 TIME: 10:51 AM PATIENT IDENTITY VERIFICATION COMPLETED USING TWO (2) IDENTIFIERS: Name and Date of confirmedby patient verbally. FALL SCREENING: Has the patient had 2 falls in the last year or 1 fall with injury or currently using an Ambulatory Assistive Device (Walker, Cane, Wheelchair, Crutches, etc.)? No PATIENT GENDER DATA: Female. status: : No status: NO. PATIENT RELEVANT IMPLANT DATA REVIEWED: Not Applicable RADIOLOGY DEPARTMENT: General X-ray: Exam(s) Completed: Chest X-Ray PERIPHERAL IV DATA: Not applicable SIGNED BY: RT Bea October 02, 2020 10:51 AM [facility] No data available for this section [facility] Evaluation note* Diagnosis Chronic right shoulder pain Pain in joint, shoulder region documented in this encounter [facility] note* Diagnosis Encounter for screening mammogram for breast cancer documented in this encounter [facility] note* Diagnosis Sprain of ligament of right ankle, initial encounter- Primary Encounter for screening mammogram for malignant neoplasm of breast Other screening mammogram Screening for HIV (human immunodeficiency virus) Special screening examination for other specified viral diseases Frequent falls Personal history of fall Vitamin D deficiency Unspecified vitamin D deficiency Weight loss Loss of weight Need for hepatitis C screening test Special screening examination for other specified viral diseases documented in this encounter [facility] note* Diagnosis Encounter for screening mammogram for malignant neoplasm of breast Other screening mammogram documented in this encounter [facility] note* Diagnosis Fall, initial encounter- Primary Balance problem Other symptoms involving nervous and musculoskeletal systems Acute midline low back pain without sciatica documented in this encounter [facility] noteNo assessment information availableWAdena Health System Work Phone: Evaluation note* Diagnosis Chest pain, unspecified type- Primary Forgetfulness Other general symptoms Shortness of breath Dizziness Dizziness and giddiness documented in this encounter [facility] note* Diagnosis Right shoulder pain, unspecified chronicity- Primary documented in this encounter [facility] note* Diagnosis Hospital discharge follow-up- Primary Other follow-up examination Fall, initial encounter Acute pain of left shoulder Tail bone pain Other disorder of coccyx [facility] Narrowing of lumbar intervertebral disc space- Primary Degeneration of lumbar or lumbosacral intervertebral disc documented in [facility] Diagnosis Chronic obstructive pulmonary disease, unspecified COPD type (HCC)- Primary Oxygen dependent Dependence on supplemental oxygen [facility] Diagnosis Chronic obstructive pulmonary disease, unspecified COPD type (HCC)- Primary Cigarette smoker Tobacco use disorder Chronic hypoxemic respiratory failure (HCC) Chronic respiratory failure [facility] Diagnosis Primary osteoarthritis of right shoulder- Primary Primary localized osteoarthrosis, shoulder region [facility] Primary osteoarthritis of right shoulder- Primary Primary localized osteoarthrosis, shoulder region Chronic right shoulder pain Pain in joint, shoulder region Impingement syndrome of right shoulder Other affections of shoulder region, not elsewhere classified 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 Primary localized osteoarthrosis, shoulder region Chronic right shoulder pain Pain in joint, shoulder region Impingement syndrome of right shoulder Other affections of shoulder region, not elsewhere classified [facility] Diagnosis SI joint arthritis- Primary Sacroiliitis, not elsewhere classified Narrowing of lumbar intervertebral disc space Degeneration of lumbar or lumbosacral intervertebral disc Primary osteoarthritis of right shoulder Primary localized osteoarthrosis, shoulder region Chronic right shoulder pain Pain in joint, shoulder region Impingement syndrome of right shoulder Other affections of shoulder region, not elsewhere classified [facility] [place] [facility] Diagnosis SI joint arthritis- Primary Sacroiliitis, not elsewhere classified Primary osteoarthritis of right shoulder Primary localized osteoarthrosis, shoulder region Chronic right shoulder pain Pain in joint, shoulder region Impingement syndrome of right shoulder Other affections of shoulder region, not elsewhere classified [facility] Diagnosis Encounter for screening mammogram for breast cancer Primary osteoarthritis of right shoulder Primary localized osteoarthrosis, shoulder region Chronic right shoulder pain Pain in joint, shoulder region Impingement syndrome of right shoulder Other affections of shoulder region, not elsewhere classified [facility] [place] [facility]* Diagnosis 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.011]- Primary Primary localized osteoarthrosis, shoulder region Preop testing Preoperative examination, unspecified COPD with exacerbation (HCC) Obstructive chronic bronchitis with exacerbation Requires oxygen therapy Asthma, unspecified asthma severity, unspecified whether complicated, unspecified whether persistent Essential (primary) hypertension Unspecified essential hypertension History of pulmonary embolus (PE) Personal history of pulmonary embolism Chronic hypoxemic respiratory failure (HCC) Chronic respiratory failure Chronic right shoulder pain [M25.511, G89.29] Pain in joint, shoulder region Impingement syndrome of right shoulder [M75.41] Other affections of shoulder region, not elsewhere classified Primary osteoarthritis of right shoulder Primary localized osteoarthrosis, shoulder region Chronic right shoulder pain Pain in joint, shoulder region Impingement syndrome of right shoulder Other affections of shoulder region, not elsewhere classified SI joint arthritis Sacroiliitis, not elsewhere classified [facility] Diagnosis Chronic obstructive pulmonary disease, unspecified COPD type (HCC) Primary osteoarthritis of right shoulder Primary localized osteoarthrosis, shoulder region Chronic right shoulder pain Pain in joint, shoulder region Impingement syndrome of right shoulder Other affections of shoulder region, not elsewhere classified SI joint arthritis Sacroiliitis, not elsewhere classified [facility] Diagnosis Chronic obstructive pulmonary disease, unspecified COPD type (HCC) Primary osteoarthritis of right shoulder Primary localized osteoarthrosis, shoulder region Chronic right shoulder pain Pain in joint, shoulder region Impingement syndrome of right shoulder Other affections of shoulder region, not elsewhere classified SI joint arthritis Sacroiliitis, not elsewhere classified [facility] Diagnosis COPD, severe (HCC)- Primary Chronic airway obstruction, not elsewhere classified Cigarette smoker Tobacco use disorder Unintentional weight loss Loss of weight Chronic hypoxemic respiratory failure (HCC) Chronic respiratory failure Need for influenza vaccination Need for prophylactic vaccination and inoculation against influenza Primary osteoarthritis of right shoulder Primary localized osteoarthrosis, shoulder region Chronic right shoulder pain Pain in joint, shoulder region Impingement syndrome of right shoulder Other affections of shoulder region, not elsewhere classified SI joint arthritis Sacroiliitis, not elsewhere classified [facility] Diagnosis 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 Shoulder joint replacement by other means SI joint arthritis Sacroiliitis, not elsewhere classified [facility] Diagnosis Narrowing of lumbar intervertebral disc space- Primary Degeneration of lumbar or lumbosacral intervertebral disc SI joint arthritis Sacroiliitis, not elsewhere classified SI joint arthritis Sacroiliitis, not elsewhere classified documented in this encounter [facility] note* Diagnosis Chronic right shoulder pain- Primary Pain in joint, shoulder region SI joint arthritis Sacroiliitis, not elsewhere classified documented in this encounter [facility] note* Diagnosis Status post reverse total replacement of right shoulder- Primary documented in this encounter [facility] note* Diagnosis Chronic right shoulder pain- Primary Pain in joint, shoulder region documented in this encounter [facility] note* Diagnosis Acute pain of right shoulder- Primary Status post reverse total replacement of right shoulder documented in this encounter [facility] note* Diagnosis Multiple lung nodules- Primary Other nonspecific abnormal finding of lung field Lung nodules Other nonspecific abnormal finding of lung field documented in this encounter [facility] note* Diagnosis Chronic obstructive pulmonary disease, unspecified COPD type (HCC) [facility] [place] [facility] Diagnosis Status post reverse total replacement of right shoulder- Primary [facility] [place] [facility]* Diagnosis COPD with exacerbation (HCC)- Primary Obstructive chronic bronchitis with exacerbation documented in this encounter [facility] note* Diagnosis BPPV (benign paroxysmal positional vertigo), unspecified laterality documented in this encounter [facility] note* Diagnosis Chronic right shoulder pain- Primary Pain in joint, shoulder region documented in this encounter [facility] note* Diagnosis Screening for colon cancer- Primary Special screening for malignant neoplasms, colon documented in this encounter [facility] note* Diagnosis BPPV (benign paroxysmal positional vertigo), unspecified laterality documented in this encounter [facility] note* Diagnosis Status post reverse total replacement of right shoulder- Primary documented in this encounter [facility] note* Diagnosis Status post reverse total replacement of right shoulder- Primary Right shoulder pain, unspecified chronicity [facility] [place] [facility]* Diagnosis Multiple lung nodules- Primary Other nonspecific abnormal finding of lung field Cigarette smoker Tobacco use disorder Persistent cough for 3 weeks or longer [facility] [place] [facility]* Diagnosis Lung nodules Other nonspecific abnormal finding of lung field [facility] [place] [facility]* Diagnosis Status post reverse total replacement of right shoulder Right shoulder pain, unspecified chronicity documented in this encounter [facility] note* Diagnosis Right shoulder pain, unspecified chronicity- Primary [facility] Diagnosis COPD, severe (HCC)- Primary Chronic airway obstruction, not elsewhere classified Acute exacerbation of chronic obstructive pulmonary disease (COPD) (HCC) Obstructive chronic bronchitis with exacerbation Chronic hypoxemic respiratory failure (HCC) Chronic respiratory failure Multiple lung nodules Other nonspecific abnormal finding of lung field Current smoker Tobacco use disorder documented in this encounter [facility] note* Diagnosis Status post reverse total replacement of right shoulder Right shoulder pain, unspecified chronicity documented in this encounter [facility] note* Diagnosis Status post reverse total replacement of right shoulder Vitamin D deficiency Unspecified vitamin D deficiency BPPV (benign paroxysmal positional vertigo), unspecified laterality documented in this encounter [facility] note* Diagnosis COPD, severe (HCC)- Primary Chronic airway obstruction, not elsewhere classified Oxygen dependent Dependence on supplemental oxygen Asthma, unspecified asthma severity, unspecified whether complicated, unspecified whether persistent documented in this encounter [facility] note* Diagnosis 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.011]- Primary Primary localized osteoarthrosis, shoulder region Preop testing Preoperative examination, unspecified COPD with exacerbation (HCC) Obstructive chronic bronchitis with exacerbation Requires oxygen therapy Asthma, unspecified asthma severity, unspecified whether complicated, unspecified whether persistent Essential (primary) hypertension Unspecified essential hypertension History of pulmonary embolus (PE) Personal history of pulmonary embolism Chronic hypoxemic respiratory failure (HCC) Chronic respiratory failure Chronic right shoulder pain [M25.511, G89.29] Pain in joint, shoulder region Impingement syndrome of right shoulder [M75.41] Other affections of shoulder region, not elsewhere classified Chronic right shoulder pain Pain in joint, shoulder region documented in this encounter [facility] note* Diagnosis 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.011]- Primary Primary localized osteoarthrosis, shoulder region Preop testing Preoperative examination, unspecified COPD with exacerbation (HCC) Obstructive chronic bronchitis with exacerbation Requires oxygen therapy Asthma, unspecified asthma severity, unspecified whether complicated, unspecified whether persistent Essential (primary) hypertension Unspecified essential hypertension History of pulmonary embolus (PE) Personal history of pulmonary embolism Chronic hypoxemic respiratory failure (HCC) Chronic respiratory failure Chronic right shoulder pain [M25.511, G89.29] Pain in joint, shoulder region Impingement syndrome of right shoulder [M75.41] Other affections of shoulder region, not elsewhere classified COPD with exacerbation (HCC) Obstructive chronic bronchitis with exacerbation documented in this encounter [facility] note* Diagnosis 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.011]- Primary Primary localized osteoarthrosis, shoulder region Preop testing Preoperative examination, unspecified COPD with exacerbation (HCC) Obstructive chronic bronchitis with exacerbation Requires oxygen therapy Asthma, unspecified asthma severity, unspecified whether complicated, unspecified whether persistent Essential (primary) hypertension Unspecified essential hypertension History of pulmonary embolus (PE) Personal history of pulmonary embolism Chronic hypoxemic respiratory failure (HCC) Chronic respiratory failure Chronic right shoulder pain [M25.511, G89.29] Pain in joint, shoulder region Impingement syndrome of right shoulder [M75.41] Other affections of shoulder region, not elsewhere classified Chronic right shoulder pain Pain in joint, shoulder region Requires oxygen therapy- Primary documented in this encounter [facility] note* Diagnosis 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.011]- Primary Primary localized osteoarthrosis, shoulder region Preop testing Preoperative examination, unspecified COPD with exacerbation (HCC) Obstructive chronic bronchitis with exacerbation Requires oxygen therapy Asthma, unspecified asthma severity, unspecified whether complicated, unspecified whether persistent Essential (primary) hypertension Unspecified essential hypertension History of pulmonary embolus (PE) Personal history of pulmonary embolism Chronic hypoxemic respiratory failure (HCC) Chronic respiratory failure Chronic right shoulder pain [M25.511, G89.29] Pain in joint, shoulder region Impingement syndrome of right shoulder [M75.41] Other affections of shoulder region, not elsewhere classified Left hip pain Pain in joint, pelvic region and thigh Requires oxygen therapy- Primary documented in this encounter [facility] note* Diagnosis 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.011]- Primary Primary localized osteoarthrosis, shoulder region Preop testing Preoperative examination, unspecified COPD with exacerbation (HCC) Obstructive chronic bronchitis with exacerbation Requires oxygen therapy Asthma, unspecified asthma severity, unspecified whether complicated, unspecified whether persistent Essential (primary) hypertension Unspecified essential hypertension History of pulmonary embolus (PE) Personal history of pulmonary embolism Chronic hypoxemic respiratory failure (HCC) Chronic respiratory failure Chronic right shoulder pain [M25.511, G89.29] Pain in joint, shoulder region Impingement syndrome of right shoulder [M75.41] Other affections of shoulder region, not elsewhere classified Chronic right shoulder pain Pain in joint, shoulder region Requires oxygen therapy- Primary [facility] [place] [facility]* Diagnosis 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.011]- Primary Primary localized osteoarthrosis, shoulder region Preop testing Preoperative examination, unspecified COPD with exacerbation (HCC) Obstructive chronic bronchitis with exacerbation Requires oxygen therapy Asthma, unspecified asthma severity, unspecified whether complicated, unspecified whether persistent Essential (primary) hypertension Unspecified essential hypertension History of pulmonary embolus (PE) Personal history of pulmonary embolism Chronic hypoxemic respiratory failure (HCC) Chronic respiratory failure Chronic right shoulder pain [M25.511, G89.29] Pain in joint, shoulder region Impingement syndrome of right shoulder [M75.41] Other affections of shoulder region, not elsewhere classified Requires oxygen therapy- Primary documented in this encounter [facility] note* Diagnosis Tail bone pain Other disorder of coccyx Acute pain of left shoulder 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.011]- Primary Primary localized osteoarthrosis, shoulder region Preop testing Preoperative examination, unspecified COPD with exacerbation (HCC) Obstructive chronic bronchitis with exacerbation Requires oxygen therapy Asthma, unspecified asthma severity, unspecified whether complicated, unspecified whether persistent Essential (primary) hypertension Unspecified essential hypertension History of pulmonary embolus (PE) Personal history of pulmonary embolism Chronic hypoxemic respiratory failure (HCC) Chronic respiratory failure Chronic right shoulder pain [M25.511, G89.29] Pain in joint, shoulder region Impingement syndrome of right shoulder [M75.41] Other affections of shoulder region, not elsewhere classified documented in this encounter [facility] note* Diagnosis 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.011]- Primary Primary localized osteoarthrosis, shoulder region Preop testing Preoperative examination, unspecified COPD with exacerbation (HCC) Obstructive chronic bronchitis with exacerbation Requires oxygen therapy Asthma, unspecified asthma severity, unspecified whether complicated, unspecified whether persistent Essential (primary) hypertension Unspecified essential hypertension History of pulmonary embolus (PE) Personal history of pulmonary embolism Chronic hypoxemic respiratory failure (HCC) Chronic respiratory failure Chronic right shoulder pain [M25.511, G89.29] Pain in joint, shoulder region Impingement syndrome of right shoulder [M75.41] Other affections of shoulder region, not elsewhere classified Encounter for screening mammogram for breast cancer documented in this encounter [facility] note* Diagnosis 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.011]- Primary Primary localized osteoarthrosis, shoulder region Preop testing Preoperative examination, unspecified COPD with exacerbation (HCC) Obstructive chronic bronchitis with exacerbation Requires oxygen therapy Asthma, unspecified asthma severity, unspecified whether complicated, unspecified whether persistent Essential (primary) hypertension Unspecified essential hypertension History of pulmonary embolus (PE) Personal history of pulmonary embolism Chronic hypoxemic respiratory failure (HCC) Chronic respiratory failure Chronic right shoulder pain [M25.511, G89.29] Pain in joint, shoulder region Impingement syndrome of right shoulder [M75.41] Other affections of shoulder region, not elsewhere classified Requires oxygen therapy COPD, severe (HCC) Chronic airway obstruction, not elsewhere classified SOB (shortness of breath) Shortness of breath COPD, severe (HCC)- Primary Chronic airway obstruction, not elsewhere classified Requires oxygen therapy SOB (shortness of breath) Shortness of breath [facility] [place] [facility]* Diagnosis 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.011]- Primary Primary localized osteoarthrosis, shoulder region Preop testing Preoperative examination, unspecified COPD with exacerbation (HCC) Obstructive chronic bronchitis with exacerbation Requires oxygen therapy Asthma, unspecified asthma severity, unspecified whether complicated, unspecified whether persistent Essential (primary) hypertension Unspecified essential hypertension History of pulmonary embolus (PE) Personal history of pulmonary embolism Chronic hypoxemic respiratory failure (HCC) Chronic respiratory failure Chronic right shoulder pain [M25.511, G89.29] Pain in joint, shoulder region Impingement syndrome of right shoulder [M75.41] Other affections of shoulder region, not elsewhere classified Requires oxygen therapy COPD, severe (HCC) Chronic airway obstruction, not elsewhere classified SOB (shortness of breath) Shortness of breath [facility] [place] [facility]* Diagnosis 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.011]- Primary Primary localized osteoarthrosis, shoulder region Preop testing Preoperative examination, unspecified COPD with exacerbation (HCC) Obstructive chronic bronchitis with exacerbation Requires oxygen therapy Asthma, unspecified asthma severity, unspecified whether complicated, unspecified whether persistent Essential (primary) hypertension Unspecified essential hypertension History of pulmonary embolus (PE) Personal history of pulmonary embolism Chronic hypoxemic respiratory failure (HCC) Chronic respiratory failure Chronic right shoulder pain [M25.511, G89.29] Pain in joint, shoulder region Impingement syndrome of right shoulder [M75.41] Other affections of shoulder region, not elsewhere classified Right shoulder pain, unspecified chronicity documented in this encounter [facility] note* Diagnosis 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.011]- Primary Primary localized osteoarthrosis, shoulder region Preop testing Preoperative examination, unspecified COPD with exacerbation (HCC) Obstructive chronic bronchitis with exacerbation Requires oxygen therapy Asthma, unspecified asthma severity, unspecified whether complicated, unspecified whether persistent Essential (primary) hypertension Unspecified essential hypertension History of pulmonary embolus (PE) Personal history of pulmonary embolism Chronic hypoxemic respiratory failure (HCC) Chronic respiratory failure Chronic right shoulder pain [M25.511, G89.29] Pain in joint, shoulder region Impingement syndrome of right shoulder [M75.41] Other affections of shoulder region, not elsewhere classified Falls- Primary Unspecified fall Cognitive changes Other signs and symptoms involving cognition Cognitive impairment, mild, so stated Mild cognitive impairment, so stated COPD, severe (HCC) Chronic airway obstruction, not elsewhere classified Requires oxygen therapy Encounter for screening examination for other mental health and behavioral disorders Screening for depression documented in this encounter [facility] note* Diagnosis Cough 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.011]- Primary Primary localized osteoarthrosis, shoulder region Preop testing Preoperative examination, unspecified COPD with exacerbation (HCC) Obstructive chronic bronchitis with exacerbation Requires oxygen therapy Asthma, unspecified asthma severity, unspecified whether complicated, unspecified whether persistent Essential (primary) hypertension Unspecified essential hypertension History of pulmonary embolus (PE) Personal history of pulmonary embolism Chronic hypoxemic respiratory failure (HCC) Chronic respiratory failure Chronic right shoulder pain [M25.511, G89.29] Pain in joint, shoulder region Impingement syndrome of right shoulder [M75.41] Other affections of shoulder region, not elsewhere classified documented in this encounter [facility] note* Diagnosis 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.011]- Primary Primary localized osteoarthrosis, shoulder region Preop testing Preoperative examination, unspecified COPD with exacerbation (HCC) Obstructive chronic bronchitis with exacerbation Requires oxygen therapy Asthma, unspecified asthma severity, unspecified whether complicated, unspecified whether persistent Essential (primary) hypertension Unspecified essential hypertension History of pulmonary embolus (PE) Personal history of pulmonary embolism Chronic hypoxemic respiratory failure (HCC) Chronic respiratory failure Chronic right shoulder pain [M25.511, G89.29] Pain in joint, shoulder region Impingement syndrome of right shoulder [M75.41] Other affections of shoulder region, not elsewhere classified Lung nodules- Primary Other nonspecific abnormal finding of lung field [facility] [place] [facility]* Diagnosis 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.011]- Primary Primary localized osteoarthrosis, shoulder region Preop testing Preoperative examination, unspecified COPD with exacerbation (HCC) Obstructive chronic bronchitis with exacerbation Requires oxygen therapy Asthma, unspecified asthma severity, unspecified whether complicated, unspecified whether persistent Essential (primary) hypertension Unspecified essential hypertension History of pulmonary embolus (PE) Personal history of pulmonary embolism Chronic hypoxemic respiratory failure (HCC) Chronic respiratory failure Chronic right shoulder pain [M25.511, G89.29] Pain in joint, shoulder region Impingement syndrome of right shoulder [M75.41] Other affections of shoulder region, not elsewhere classified Lung nodules Other nonspecific abnormal finding of lung field documented [facility] [place] [facility] Diagnosis 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.011]- Primary Primary localized osteoarthrosis, shoulder region Preop testing Preoperative examination, unspecified COPD with exacerbation (HCC) Obstructive chronic bronchitis with exacerbation Requires oxygen therapy Asthma, unspecified asthma severity, unspecified whether complicated, unspecified whether persistent Essential (primary) hypertension Unspecified essential hypertension History of pulmonary embolus (PE) Personal history of pulmonary embolism Chronic hypoxemic respiratory failure (HCC) Chronic respiratory failure Chronic right shoulder pain [M25.511, G89.29] Pain in joint, shoulder region Impingement syndrome of right shoulder [M75.41] Other affections of shoulder region, not elsewhere classified Status post reverse total replacement of right shoulder documented [facility] [place] [facility] Diagnosis 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.011]- Primary Primary localized osteoarthrosis, shoulder region Preop testing Preoperative examination, unspecified COPD with exacerbation (HCC) Obstructive chronic bronchitis with exacerbation Requires oxygen therapy Asthma, unspecified asthma severity, unspecified whether complicated, unspecified whether persistent Essential (primary) hypertension Unspecified essential hypertension History of pulmonary embolus (PE) Personal history of pulmonary embolism Chronic hypoxemic respiratory failure (HCC) Chronic respiratory failure Chronic right shoulder pain [M25.511, G89.29] Pain in joint, shoulder region Impingement syndrome of right shoulder [M75.41] Other affections of shoulder region, not elsewhere classified Persistent cough for 3 weeks or longer- [facility] Diagnosis 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.011]- Primary Primary localized osteoarthrosis, shoulder region Preop testing Preoperative examination, unspecified COPD with exacerbation (HCC) Obstructive chronic bronchitis with exacerbation Requires oxygen therapy Asthma, unspecified asthma severity, unspecified whether complicated, unspecified whether persistent Essential (primary) hypertension Unspecified essential hypertension History of pulmonary embolus (PE) Personal history of pulmonary embolism Chronic hypoxemic respiratory failure (HCC) Chronic respiratory failure Chronic right shoulder pain [M25.511, G89.29] Pain in joint, shoulder region Impingement syndrome of right shoulder [M75.41] Other affections of shoulder region, not elsewhere classified BPPV (benign paroxysmal positional vertigo), unspecified laterality [facility] 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.011]- Primary Primary localized osteoarthrosis, shoulder region Preop testing Preoperative examination, unspecified COPD with exacerbation (HCC) Obstructive chronic bronchitis with exacerbation Requires oxygen therapy Asthma, unspecified asthma severity, unspecified whether complicated, unspecified whether persistent Essential (primary) hypertension Unspecified essential hypertension History of pulmonary embolus (PE) Personal history of pulmonary embolism Chronic hypoxemic respiratory failure (HCC) Chronic respiratory failure Chronic right shoulder pain [M25.511, G89.29] Pain in joint, shoulder region Impingement syndrome of right shoulder [M75.41] Other affections of shoulder region, not elsewhere classified Right shoulder pain, unspecified chronicity [facility] [place] [facility] Diagnosis 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.011]- Primary Primary localized osteoarthrosis, shoulder region Preop testing Preoperative examination, unspecified COPD with exacerbation (HCC) Obstructive chronic bronchitis with exacerbation Requires oxygen therapy Asthma, unspecified asthma severity, unspecified whether complicated, unspecified whether persistent Essential (primary) hypertension Unspecified essential hypertension History of pulmonary embolus (PE) Personal history of pulmonary embolism Chronic hypoxemic respiratory failure (HCC) Chronic respiratory failure Chronic right shoulder pain [M25.511, G89.29] Pain in joint, shoulder region Impingement syndrome of right shoulder [M75.41] Other affections of shoulder region, not elsewhere classified Chronic obstructive pulmonary disease, unspecified COPD type (HCC) [facility] Diagnosis 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.011]- Primary Primary localized osteoarthrosis, shoulder region Preop testing Preoperative examination, unspecified COPD with exacerbation (HCC) Obstructive chronic bronchitis with exacerbation Requires oxygen therapy Asthma, unspecified asthma severity, unspecified whether complicated, unspecified whether persistent Essential (primary) hypertension Unspecified essential hypertension History of pulmonary embolus (PE) Personal history of pulmonary embolism Chronic hypoxemic respiratory failure (HCC) Chronic respiratory failure Chronic right shoulder pain [M25.511, G89.29] Pain in joint, shoulder region Impingement syndrome of right shoulder [M75.41] Other affections of shoulder region, not elsewhere classified Status post reverse total replacement of right shoulder [facility] [place] [facility] Diagnosis 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.011]- Primary Primary localized osteoarthrosis, shoulder region Preop testing Preoperative examination, unspecified COPD with exacerbation (HCC) Obstructive chronic bronchitis with exacerbation Requires oxygen therapy Asthma, unspecified asthma severity, unspecified whether complicated, unspecified whether persistent Essential (primary) hypertension Unspecified essential hypertension History of pulmonary embolus (PE) Personal history of pulmonary embolism Chronic hypoxemic respiratory failure (HCC) Chronic respiratory failure Chronic right shoulder pain [M25.511, G89.29] Pain in joint, shoulder region Impingement syndrome of right shoulder [M75.41] Other affections of shoulder region, not elsewhere classified Right shoulder pain, unspecified chronicity documented in this encounter [facility] note* Diagnosis 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.011]- Primary Primary localized osteoarthrosis, shoulder region Preop testing Preoperative examination, unspecified COPD with exacerbation (HCC) Obstructive chronic bronchitis with exacerbation Requires oxygen therapy Asthma, unspecified asthma severity, unspecified whether complicated, unspecified whether persistent Essential (primary) hypertension Unspecified essential hypertension History of pulmonary embolus (PE) Personal history of pulmonary embolism Chronic hypoxemic respiratory failure (HCC) Chronic respiratory failure Chronic right shoulder pain [M25.511, G89.29] Pain in joint, shoulder region Impingement syndrome of right shoulder [M75.41] Other affections of shoulder region, not elsewhere classified Degeneration of intervertebral disc of lumbar region, unspecified whether pain present- Primary Lumbar spondylosis Lumbosacral spondylosis without myelopathy Cognitive changes Other signs and symptoms involving cognition Encounter for immunization Need for other specified prophylactic vaccination against single bacterial disease documented in this encounter [facility] note* Diagnosis 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.011]- Primary Primary localized osteoarthrosis, shoulder region Preop testing Preoperative examination, unspecified COPD with exacerbation (HCC) Obstructive chronic bronchitis with exacerbation Requires oxygen therapy Asthma, unspecified asthma severity, unspecified whether complicated, unspecified whether persistent (HCC) Essential (primary) hypertension Unspecified essential hypertension History of pulmonary embolus (PE) Personal history of pulmonary embolism Chronic hypoxemic respiratory failure (HCC) Chronic respiratory failure Chronic right shoulder pain [M25.511, G89.29] Pain in joint, shoulder region Impingement syndrome of right shoulder [M75.41] Other affections of shoulder region, not elsewhere classified BPPV (benign paroxysmal positional vertigo), unspecified laterality documented [facility] [place] [facility]* Diagnosis 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.011]- Primary Primary localized osteoarthrosis, shoulder region Preop testing Preoperative examination, unspecified COPD with exacerbation (HCC) Obstructive chronic bronchitis with exacerbation Requires oxygen therapy Asthma, unspecified asthma severity, unspecified whether complicated, unspecified whether persistent (HCC) Essential (primary) hypertension Unspecified essential hypertension History of pulmonary embolus (PE) Personal history of pulmonary embolism Chronic hypoxemic respiratory failure (HCC) Chronic respiratory failure Chronic right shoulder pain [M25.511, G89.29] Pain in joint, shoulder region Impingement syndrome of right shoulder [M75.41] Other affections of shoulder region, not elsewhere classified Cognitive impairment, mild, so stated- Primary Mild cognitive impairment, so stated Falls Unspecified fall Cognitive changes Other signs and symptoms involving cognition Spinal stenosis of cervical region Spinal stenosis in cervical region Acute low back pain, unspecified back pain laterality, unspecified whether sciatica present Spinal stenosis of lumbar region, unspecified whether neurogenic claudication present Neuropathy Mononeuritis of unspecified site [facility] [place] [facility]* Diagnosis 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.011]- Primary Primary localized osteoarthrosis, shoulder region Preop testing Preoperative examination, unspecified COPD with exacerbation (HCC) Obstructive chronic bronchitis with exacerbation Requires oxygen therapy Asthma, unspecified asthma severity, unspecified whether complicated, unspecified whether persistent (HCC) Essential (primary) hypertension Unspecified essential hypertension History of pulmonary embolus (PE) Personal history of pulmonary embolism Chronic hypoxemic respiratory failure (HCC) Chronic respiratory failure Chronic right shoulder pain [M25.511, G89.29] Pain in joint, shoulder region Impingement syndrome of right shoulder [M75.41] Other affections of shoulder region, not elsewhere classified Status post reverse total replacement of right shoulder documented in this encounter [facility] note* Diagnosis 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.011]- Primary Primary localized osteoarthrosis, shoulder region Preop testing Preoperative examination, unspecified COPD with exacerbation (HCC) Obstructive chronic bronchitis with exacerbation Requires oxygen therapy Asthma, unspecified asthma severity, unspecified whether complicated, unspecified whether persistent (HCC) Essential (primary) hypertension Unspecified essential hypertension History of pulmonary embolus (PE) Personal history of pulmonary embolism Chronic hypoxemic respiratory failure (HCC) Chronic respiratory failure Chronic right shoulder pain [M25.511, G89.29] Pain in joint, shoulder region Impingement syndrome of right shoulder [M75.41] Other affections of shoulder region, not elsewhere classified Right shoulder pain, unspecified chronicity documented in this encounter [facility] note* Diagnosis 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.011]- Primary Primary localized osteoarthrosis, shoulder region Preop testing Preoperative examination, unspecified COPD with exacerbation (HCC) Obstructive chronic bronchitis with exacerbation Requires oxygen therapy Asthma, unspecified asthma severity, unspecified whether complicated, unspecified whether persistent (HCC) Essential (primary) hypertension Unspecified essential hypertension History of pulmonary embolus (PE) Personal history of pulmonary embolism Chronic hypoxemic respiratory failure (HCC) Chronic respiratory failure Chronic right shoulder pain [M25.511, G89.29] Pain in joint, shoulder region Impingement syndrome of right shoulder [M75.41] Other affections of shoulder region, not elsewhere classified Postural hypotension- Primary Orthostatic hypotension Benign paroxysmal positional vertigo, unspecified laterality Chronic hypoxemic respiratory failure (HCC) Chronic respiratory failure Oral candidiasis Candidiasis of mouth documented in this encounter [facility] note* Diagnosis 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.011]- Primary Primary localized osteoarthrosis, shoulder region Preop testing Preoperative examination, unspecified COPD with exacerbation (HCC) Obstructive chronic bronchitis with exacerbation Requires oxygen therapy Asthma, unspecified asthma severity, unspecified whether complicated, unspecified whether persistent (HCC) Essential (primary) hypertension Unspecified essential hypertension History of pulmonary embolus (PE) Personal history of pulmonary embolism Chronic hypoxemic respiratory failure (HCC) Chronic respiratory failure Chronic right shoulder pain [M25.511, G89.29] Pain in joint, shoulder region Impingement syndrome of right shoulder [M75.41] Other affections of shoulder region, not elsewhere classified Vitamin D deficiency Unspecified vitamin D deficiency [facility] [place] [facility]* Diagnosis 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.011]- Primary Primary localized osteoarthrosis, shoulder region Preop testing Preoperative examination, unspecified COPD with exacerbation (HCC) Obstructive chronic bronchitis with exacerbation Requires oxygen therapy Asthma, unspecified asthma severity, unspecified whether complicated, unspecified whether persistent (HCC) Essential (primary) hypertension Unspecified essential hypertension History of pulmonary embolus (PE) Personal history of pulmonary embolism Chronic hypoxemic respiratory failure (HCC) Chronic respiratory failure Chronic right shoulder pain [M25.511, G89.29] Pain in joint, shoulder region Impingement syndrome of right shoulder [M75.41] Other affections of shoulder region, not elsewhere classified Falls- Primary Unspecified fall Need for vaccination Need for prophylactic vaccination and inoculation against unspecified single disease Bipolar I disorder, most recent episode (or current) depressed, severe, specified as with psychotic behavior (HCC) Bipolar I disorder, most recent episode (or current) depressed, severe, specified as with psychotic behavior Chronic obstructive pulmonary disease, unspecified COPD type (HCC) Tobacco use disorder Cognitive changes Other signs and symptoms involving cognition Elevated glucose Other abnormal glucose Balance disorder Other symptoms involving nervous and musculoskeletal systems [facility] Diagnosis 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.011]- Primary Primary localized osteoarthrosis, shoulder region Preop testing Preoperative examination, unspecified COPD with exacerbation (HCC) Obstructive chronic bronchitis with exacerbation Requires oxygen therapy Asthma, unspecified asthma severity, unspecified whether complicated, unspecified whether persistent (HCC) Essential (primary) hypertension Unspecified essential hypertension History of pulmonary embolus (PE) Personal history of pulmonary embolism Chronic hypoxemic respiratory failure (HCC) Chronic respiratory failure Chronic right shoulder pain [M25.511, G89.29] Pain in joint, shoulder region Impingement syndrome of right shoulder [M75.41] Other affections of shoulder region, not elsewhere classified Falls Unspecified fall Cognitive impairment, mild, so stated Mild cognitive impairment, so stated Cognitive changes Other signs and symptoms involving cognition documented [facility] [place] [facility] Diagnosis 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.011]- Primary Primary localized osteoarthrosis, shoulder region Preop testing Preoperative examination, unspecified COPD with exacerbation (HCC) Obstructive chronic bronchitis with exacerbation Requires oxygen therapy Asthma, unspecified asthma severity, unspecified whether complicated, unspecified whether persistent (HCC) Essential (primary) hypertension Unspecified essential hypertension History of pulmonary embolus (PE) Personal history of pulmonary embolism Chronic hypoxemic respiratory failure (HCC) Chronic respiratory failure Chronic right shoulder pain [M25.511, G89.29] Pain in joint, shoulder region Impingement syndrome of right shoulder [M75.41] Other affections of shoulder region, not elsewhere classified BPPV (benign paroxysmal positional vertigo), unspecified laterality [facility] [place] [facility]* Diagnosis 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.011]- Primary Primary localized osteoarthrosis, shoulder region Preop testing Preoperative examination, unspecified COPD with exacerbation (HCC) Obstructive chronic bronchitis with exacerbation Requires oxygen therapy Asthma, unspecified asthma severity, unspecified whether complicated, unspecified whether persistent (HCC) Essential (primary) hypertension Unspecified essential hypertension History of pulmonary embolus (PE) Personal history of pulmonary embolism Chronic hypoxemic respiratory failure (HCC) Chronic respiratory failure Chronic right shoulder pain [M25.511, G89.29] Pain in joint, shoulder region Impingement syndrome of right shoulder [M75.41] Other affections of shoulder region, not elsewhere classified Balance problem- Primary Other symptoms involving nervous and musculoskeletal systems Falls Unspecified fall Balance disorder Other symptoms involving nervous and musculoskeletal systems [facility] [place] [facility]* Diagnosis 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.011]- Primary Primary localized osteoarthrosis, shoulder region Preop testing Preoperative examination, unspecified COPD with exacerbation (HCC) Obstructive chronic bronchitis with exacerbation Requires oxygen therapy Asthma, unspecified asthma severity, unspecified whether complicated, unspecified whether persistent (HCC) Essential (primary) hypertension Unspecified essential hypertension History of pulmonary embolus (PE) Personal history of pulmonary embolism Chronic hypoxemic respiratory failure (HCC) Chronic respiratory failure Chronic right shoulder pain [M25.511, G89.29] Pain in joint, shoulder region Impingement syndrome of right shoulder [M75.41] Other affections of shoulder region, not elsewhere classified Falls- Primary Unspecified fall Balance problem Other symptoms involving nervous and musculoskeletal systems documented [facility] [place] [facility] Diagnosis 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.011]- Primary Primary localized osteoarthrosis, shoulder region Preop testing Preoperative examination, unspecified COPD with exacerbation (HCC) Obstructive chronic bronchitis with exacerbation Requires oxygen therapy Asthma, unspecified asthma severity, unspecified whether complicated, unspecified whether persistent (HCC) Essential (primary) hypertension Unspecified essential hypertension History of pulmonary embolus (PE) Personal history of pulmonary embolism Chronic hypoxemic respiratory failure (HCC) Chronic respiratory failure Chronic right shoulder pain [M25.511, G89.29] Pain in joint, shoulder region Impingement syndrome of right shoulder [M75.41] Other affections of shoulder region, not elsewhere classified COPD, severe (HCC)- Primary Chronic airway obstruction, not elsewhere classified Chronic hypoxemic respiratory failure (HCC) Chronic respiratory failure Current smoker Tobacco use disorder Multiple lung nodules Other nonspecific abnormal finding of lung field [facility] Diagnosis 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.011]- Primary Primary localized osteoarthrosis, shoulder region Preop testing Preoperative examination, unspecified COPD with exacerbation (HCC) Obstructive chronic bronchitis with exacerbation Requires oxygen therapy Asthma, unspecified asthma severity, unspecified whether complicated, unspecified whether persistent (HCC) Essential (primary) hypertension Unspecified essential hypertension History of pulmonary embolus (PE) Personal history of pulmonary embolism Chronic hypoxemic respiratory failure (HCC) Chronic respiratory failure Chronic right shoulder pain [M25.511, G89.29] Pain in joint, shoulder region Impingement syndrome of right shoulder [M75.41] Other affections of shoulder region, not elsewhere classified Encounter for screening for lung cancer- Primary Tobacco use current [facility]LEE Skinner: PERFORM Event Display: [facility] Patient Summary Authored Date: Discharge Instructions Thank you for allowing [facility] to assist you with your healthcare needs. The following is importantdischarge information regarding your hospital visit. Diagnosis from Today's Visit Dizziness Fall Fall Tail bone pain What to Do Next Instructions from Your Care Team No qualifying data available. Post Acute Orders No qualifying data available. You Need to Schedule the Following Appointments Follow Up with TERESA AGUILAR MD When Within 2-4 days Where: [address] [place] [address]- Allergies Demerol HCl (Hives) Desyrel (blotches over body) predniSONE (stomach problems) erythromycin (rash) morphine (rash over body) doxycycline (Hives) Medications Please ask your primary doctor or pharmacist before taking any other medication not listed, including over the counter drugs, herbal medications, vitamins and or supplements as they may interact withyour home medications. What How Much When Why Instructions Last Dose New meclizine (meclizine 25 mg oral tablet) 1 tab(s) by mouth Three (3) times a day Duration: 7 Days Printed Prescription New ondansetron (ondansetron 4 mg oral tablet, disintegrating) 1 tab(s) by mouth Every 6 hours Duration: 4 Days Printed Prescription Changed acetaminophen-hydrocodone ([place] 325- 5 mg oral tablet) 1 tab(s) by mouth Every 6 hours Ankle sprain Duration: 2 Days Changed acetaminophen-hydrocodone ([place] 325- 5 mg oral tablet) 1 tab(s) by mouth Every 6 hours as needed for as needed for pain Tail bone pain Duration: 3 Days Printed Prescription Changed albuterol (albuterol MDI (90 mcg/ inh) [facility] free inhalation aerosol) 2 puff(s) by inhalation Every 4 hours Printed Prescription Changed albuterol (ProAir HFA MDI (90 mcg/ inh) inhalation aerosol) 1 puff(s) by inhalation Four (4) times a day as needed for for wheezing Unchanged albuterol-ipratropium (DuoNeb 0.5 mg-2.5 mg/ 3 mL inhalation solution) 3 Milliliter by inhalation Four (4) times a day Unchanged benztropine (benztropine 1 mg oral tablet) 1 tab(s) by mouth Two (2) times a day Unchanged buPROPion (buPROPion 150 mg/ 24 hours (XL) oral tablet, extended release) 1 tab(s) by mouth Every 24 hours Unchanged escitalopram (Lexapro 5 mg oral tablet) 1 1/2 tablet by mouth Every day Unchanged fluticasone nasal (Flonase 50 mcg/ inh nasal spray) 1 spray(s) in the nose Two (2) times a day Upper respiratory infection in each nostril Unchanged lamoTRIgine (Lamictal 100 mg oral tablet) 1 tab(s) by mouth Once a day Unchanged lamoTRIgine (lamoTRIgine 100 mg oral tablet) 1 tab(s) by mouth Two (2) times a day Unchanged meloxicam (meloxicam 15 mg oral tablet) take 1 tablet by mouth once daily with food Unchanged Misc Medication (RA MELATONIN 10 MG TABLET) take 1 tablet by mouth at bedtime if needed Unchanged naproxen (Naprosyn 500 mg oral tablet) 1 tab(s) by mouth Twice daily with meals as needed for Pain Unchanged naproxen (Naprosyn 500 mg oral tablet) 1 tab(s) by mouth Twice daily with meals as needed for Pain Duration: 7 Days Unchanged omeprazole (NF) (omeprazole 20 mg oral delayed release capsule (NF)) 1 cap by mouth Once a day Unchanged prazosin (prazosin 1 mg oral capsule) 1 cap by mouth Three (3) times a day Unchanged QUEtiapine (SEROquel 300 mg oral tablet) 1 tab(s) by mouth Daily at bedtime Unchanged sertraline (sertraline 50 mg oral tablet) 1 tab(s) by mouth Every day Please take this list to your next doctor s visit. Bring all medications you take, including over the counter medications, herbals and other supplements with you to your doctor s visit. Patients and families are reminded to discard old lists and to update any records with all medication providers or retail pharmacies. Medication Leaflets acetaminophen and hydrocodone (a SEET a MIN oh fen and lenka MAR done) Lortab Elixir, Verdrocet What is the most important information I should know about acetaminophen and hydrocodone? MISUSE OF OPIOID MEDICINE CAN CAUSE ADDICTION, OVERDOSE, OR . Keep the medication in a place where others cannot get to it. Taking opioid medicine during may cause life-threatening withdrawal symptoms in the . Fatal side effects can occur if you use opioid medicine with alcohol, or with other drugs that cause drowsiness or slow your breathing. Stop taking this medicine and call your doctor right away if you have skin redness or a rash that spreads and causes blistering and peeling. What is acetaminophen and hydrocodone? Acetaminophen and hydrocodone is a combination medicine used to relieve moderate to severe pain. Acetaminophen and hydrocodone contains an opioid medicine, and may be habit-forming. Acetaminophen and hydrocodone may also be used for purposes not listed in this medication guide. What should I discuss with my healthcare provider before taking acetaminophen and hydrocodone? You should not use this medicine if you are allergic to acetaminophen or hydrocodone, or if you have: severe asthma or breathing problems; or a blockage in your stomach or intestines. Tell your doctor if you have ever had: breathing problems, sleep apnea (breathing stops during sleep); liver disease; a drug or alcohol addiction; kidney disease; a head injury or seizures; urination problems; or problems with your thyroid, pancreas, or gallbladder. If you use opioid medicine while you are , your baby could become dependent on the drug. This can cause life-threatening withdrawal symptoms in the baby after it is born. Babies born dependent on opioids may need medical treatment for several weeks. Ask a doctor before using opioid medicine if you are . Tell your doctor if you notice severe drowsiness or slow breathing in the nursing baby. How should I take acetaminophen and hydrocodone? Follow all directions on your prescription label. Never take this medicine in larger amounts, or for longer than prescribed. An overdose can damage your liver or cause . Tell your doctor if you feel an increased urge to use more of this medicine. Never share this medicine with another person, especially someone with a history of drug abuse or addiction. MISUSE CAN CAUSE ADDICTION, OVERDOSE, OR . Keep the medicine in a place where others cannot get to it. Selling or giving away this medicine is against the law. Measure liquid medicine carefully. Use the dosing syringe provided, or use a medicine dose-measuring device (not a kitchen spoon). If you need surgery or medical tests, tell the doctor ahead of time that you are using this medicine. You should not stop using this medicine suddenly. Follow your doctor's instructions about tapering your dose. Store at room temperature away from moisture and heat. Keep track of your medicine. You should be aware if anyone is using it improperly or without a prescription. Do not keep leftover opioid medication. Just one dose can cause in someone using this medicine accidentally or improperly. Ask your pharmacist where to locate a drug take-back disposal program.If there is no take-back program, flush the unused medicine down the toilet. What happens if I miss a dose? Since this medicine is used for pain, you are not likely to miss a dose. Skip any missed dose if itis almost time for your next dose. Do not use two doses at one time. What happens if I overdose? Seek emergency medical attention or call the Poison Help line at . An overdose of this medicine can be fatal, especially in a child or other person using the medicine without a prescription. Overdose symptoms may include nausea, vomiting, sweating, severe drowsiness, pinpoint pupils, slow breathing, or no breathing. Your doctor may recommend you get naloxone (a medicine to reverse an opioid overdose) and keep it with you at all times. A person caring for you can give the naloxone if you stop breathing or don't wake up. Your caregiver must still get emergency medical help and may need to perform CPR (cardiopulmonary resuscitation) on you while waiting for help to arrive. Anyone can buy naloxone from a pharmacy or local health department. Make sure any person caring foryou knows where you keep naloxone and how to use it. What should I avoid while taking acetaminophen and hydrocodone? Avoid driving or operating machinery until you know how this medicine will affect you. Dizziness ordrowsiness can cause falls, accidents, or severe injuries. Do not drink alcohol. Dangerous side effects or could occur. Ask a doctor or pharmacist before using any other medicine that may contain acetaminophen (sometimes abbreviated as APAP). Taking certain medications together can lead to a fatal overdose. What are the possible side effects of acetaminophen and hydrocodone? Get emergency medical help if you have signs of an allergic reaction: hives; difficulty breathing; swelling of your face, lips, tongue, or throat. Opioid medicine can slow or stop your breathing, and may occur. A person caring for you should give naloxone and/or seek emergency medical attention if you have slow breathing with long pauses,blue colored lips, or if you are hard to wake up. In rare cases, acetaminophen may cause a severe skin reaction that can be fatal. This could occur even if you have taken acetaminophen in the past and had no reaction. Stop taking this medicine and call your doctor right away if you have skin redness or a rash that spreads and causes blistering andpeeling. Call your doctor at once if you have: noisy breathing, sighing, shallow breathing, breathing that stops; a light-headed feeling, like you might pass out; liver problems--nausea, upper stomach pain, tiredness, loss of appetite, dark urine, chinyere-colored stools, jaundice (yellowing of the skin or eyes); low cortisol levels-- nausea, vomiting, loss of appetite, dizziness, worsening tiredness or weakness; o high levels of serotonin in the body--agitation, hallucinations, fever, sweating, shivering, fast heart rate, muscle stiffness, twitching, loss of coordination, nausea, vomiting, diarrhea. Serious breathing problems may be more likely in older adults and in those who are debilitated or have wasting syndrome or chronic breathing disorders. Common side effects include: dizziness, drowsiness, feeling tired; nausea, vomiting, stomach pain; constipation; or headache. This is not a complete list of side effects and others may occur. Call your doctor for medical advice about side effects. You may report side effects to FDA at 7-446-JED-4327. What other drugs will affect acetaminophen and hydrocodone? You may have breathing problems or withdrawal symptoms if you start or stop taking certain other medicines. Tell your doctor if you also use an antibiotic, antifungal medication, heart or blood pressure medication, seizure medication, or medicine to treat HIV or hepatitis C. Opioid medication can interact with many other drugs and cause dangerous side effects or . Be sure your doctor knows if you also use: cold or allergy medicines, bronchodilator asthma/COPD medication, or a diuretic ('water pill'); medicines for motion sickness, irritable bowel syndrome, or overactive bladder; other opioids--opioid pain medicine or prescription cough medicine; a sedative like Valium--diazepam, alprazolam, lorazepam, Xanax, Klonopin, Versed, and others; drugs that make you sleepy or slow your breathing--a sleeping pill, muscle relaxer, medicine to treat mood disorders or mental illness; drugs that affect serotonin levels in your body--a stimulant, or medicine for depression, Parkinson's disease, migraine headaches, serious infections, or nausea and vomiting. This list is not complete. Other drugs may affect acetaminophen and hydrocodone, including prescription and lkun-hug-qswujzk medicines, vitamins, and herbal products. Not all possible interactions are listed here. Where can I get more information? Your doctor or pharmacist can provide more information about acetaminophen and hydrocodone. Remember, keep this and all other medicines out of the reach of children, never share your medicines with others, and use this medication only for the indication prescribed. Every effort has been made to ensure that the information provided by [employer] is accurate, up-to-date, and complete, but no guarantee is made to that effect. Drug information contained herein may be time sensitive. [employer] information has been compiled for use by healthcare practitioners and consumers in the [place] and therefore [employer] does not warrant that uses outside of the [place] are appropriate, unless specifically indicated otherwise. [employer] drug information does not endorse drugs, diagnose patients or recommend therapy. [email or web address] drug information isan informational resource designed to assist licensed healthcare practitioners in caring for their p atients and/or to serve consumers viewing this service as a supplement to, and not a substitute for, the expertise, skill, knowledge and judgment of healthcare practitioners. The absence of a warningfor a given drug or drug combination in no way should be construed to indicate that the drug or drug combination is safe, effective or appropriate for any given patient. [facility] does not assume any responsibility for any aspect of healthcare administered with the aid of information [employer] provides. The information contained herein is not intended to cover all possible uses, directions, precautions, warnings, drug interactions, allergic reactions, or adverse effects. If you have questions about the drugs you are taking, check with your doctor, nurse or pharmacist. Copyright 5258-4774 [facility] [employer]. Version: 19.. Revision Date: 05/03/2023. ondansetron (oral) (on JAMES se nicole) What is the most important information I should know about ondansetron? You should not use ondansetron if you are also using apomorphine (Apokyn). What is ondansetron? Ondansetron blocks the actions of chemicals in the body that can trigger nausea and vomiting. Ondansetron is used to prevent nausea and vomiting that may be caused by surgery, cancer chemotherapy, or radiation treatment. Ondansetron may be used for purposes not listed in this medication guide. What should I discuss with my health care provider before taking ondansetron? You should not use ondansetron if: you are also using apomorphine (Apokyn); or you are allergic to ondansetron or similar medicines (dolasetron, granisetron, palonosetron). To make sure ondansetron is safe for you, tell your doctor if you have: liver disease; an electrolyte imbalance (such as low levels of potassium or magnesium in your blood); congestive heart failure, slow heartbeats; a personal or family history of long QT syndrome; or a blockage in your digestive tract (stomach or intestines). Ondansetron is not expected to harm an unborn baby. Tell your doctor if you are . It is not known whether ondansetron passes into breast milk or if it could harm a nursing baby. Tell your doctor if you are breast-feeding a baby. Ondansetron is not approved for use by anyone younger than 4 years old. Ondansetron orally disintegrating tablets may contain phenylalanine. Tell your doctor if you have phenylketonuria (PKU). How should I take ondansetron? Follow all directions on your prescription label. Do not take this medicine in larger or smaller amounts or for longer than recommended. Ondansetron can be taken with or without food. The first dose of ondansetron is usually taken before the start of your surgery, chemotherapy, or radiation treatment. Follow your doctor's dosing instructions very carefully. Take the ondansetron regular tablet with a full glass of water. To take the orally disintegrating tablet (Zofran ODT): Keep the tablet in its blister pack until you are ready to take it. Open the package and peel back the foil. Do not push a tablet through the foil or you may damage the tablet. Use dry hands to remove the tablet and place it in your mouth. Do not swallow the tablet whole. Allow it to dissolve in your mouth without chewing. Swallow several times as the tablet dissolves. To use ondansetron oral soluble film (strip) (Zuplenz): Keep the strip in the foil pouch until you are ready to use the medicine. Using dry hands, remove the strip and place it on your tongue. It will begin to dissolve right away. Do not swallow the strip whole. Allow it to dissolve in your mouth without chewing. Swallow several times after the strip dissolves. If desired, you may drink liquid to help swallow the dissolved strip. Wash your hands after using Zuplenz. Measure liquid medicine with the dosing syringe provided, or with a special dose-measuring spoon ormedicine cup. If you do not have a dose-measuring device, ask your pharmacist for one. Store at room temperature away from moisture, heat, and light. Store liquid medicine in an upright position. What happens if I miss a dose? Take the missed dose as soon as you remember. Skip the missed dose if it is almost time for your next scheduled dose. Do not take extra medicine to make up the missed dose. What happens if I overdose? Seek emergency medical attention or call the Poison Help line at . Overdose symptoms may include sudden loss of vision, severe constipation, feeling light-headed, or fainting. What should I avoid while taking ondansetron? Ondansetron may impair your thinking or reactions. Be careful if you drive or do anything that requires you to be alert. What are the possible side effects of ondansetron? Get emergency medical help if you have signs of an allergic reaction: rash, hives; fever, chills, difficult breathing; swelling of your face, lips, tongue, or throat. Call your doctor at once if you have: severe constipation, stomach pain, or bloating; headache with chest pain and severe dizziness, fainting, fast or pounding heartbeats; fast or pounding heartbeats; jaundice (yellowing of the skin or eyes); blurred vision or temporary vision loss (lasting from only a few minutes to several hours); high levels of serotonin in the body--agitation, hallucinations, fever, fast heart rate, overactivereflexes, nausea, vomiting, diarrhea, loss of coordination, fainting. Common side effects may include: diarrhea or constipation; headache; drowsiness; or tired feeling. This is not a complete list of side effects and others may occur. Call your doctor for medical advice about side effects. You may report side effects to FDA at 7-421-ZLJ-5583. What other drugs will affect ondansetron? Ondansetron can cause a serious heart problem, especially if you use certain medicines at the same time, including antibiotics, antidepressants, heart rhythm medicine, antipsychotic medicines, and medicines to treat cancer, malaria, HIV or AIDS. Tell your doctor about all medicines you use, and those you start or stop using during your treatment with ondansetron. Taking ondansetron while you are using certain other medicines can cause high levels of serotonin to build up in your body, a condition called 'serotonin syndrome,' which can be fatal. Tell your doctor if you also use: medicine to treat depression; medicine to treat a psychiatric disorder; a narcotic (opioid) medication; or medicine to prevent nausea and vomiting. This list is not complete and many other drugs can interact with ondansetron. This includes prescription and yteq-rzp-wwefbuy medicines, vitamins, and herbal products. Give a list of all your medicines to any healthcare provider who treats you. Where can I get more information? Your pharmacist can provide more information about ondansetron. Remember, keep this and all other medicines out of the reach of children, never share your medicines with others, and use this medication only for the indication prescribed. Every effort has been made to ensure that the information provided by [employer] is accurate, up-to-date, and complete, but no guarantee is made to that effect. Drug information contained herein may be time sensitive. [employer] information has been compiled for use by healthcare practitioners and consumers in the [place] and therefore [employer] does not warrant that uses outside of the [place] are appropriate, unless specifically indicated otherwise. [email or web address] drug information does not endorse drugs, diagnose patients or recommend therapy. [email or web address] drug information isan informational resource designed to assist licensed healthcare practitioners in caring for their p atients and/or to serve consumers viewing this service as a supplement to, and not a substitute for, the expertise, skill, knowledge and judgment of healthcare practitioners. The absence of a warningfor a given drug or drug combination in no way should be construed to indicate that the drug or drug combination is safe, effective or appropriate for any given patient. [employer] does not assume any responsibility for any aspect of healthcare administered with the aid of information [employer] provides. The information contained herein is not intended to cover all possible uses, directions, precautions, warnings, drug interactions, allergic reactions, or adverse effects. If you have questions about the drugs you are taking, check with your doctor, nurse or pharmacist. Copyright [id number] [employer]. Version: 16.. Revision Date: 04/15/2023. albuterol inhalation (al BYOO ter all) ProAir HFA, ProAir RespiClick, Proventil HFA, Ventolin HFA What is the most important information I should know about albuterol inhalation? Follow all directions on your medicine label and package. Tell each of your healthcare providers about all your medical conditions, allergies, and all medicines you use. What is albuterol inhalation? Albuterol inhalation is a bronchodilator that is used to treat or prevent bronchospasm in people with reversible obstructive airway disease. Albuterol is also used to prevent exercise-induced bronchospasm. Albuterol inhalation is for use in adults and children at least 4 years old. Albuterol inhalation may also be used for purposes not listed in this medication guide. What should I discuss with my healthcare provider before using albuterol inhalation? You should not use this medicine if you are allergic to albuterol. You should not use ProAir RespiClick if you are allergic to milk proteins. Tell your doctor if you have ever had: heart disease, high blood pressure; a thyroid disorder; seizures; diabetes; or low levels of potassium in your blood. Tell your doctor if you are or plan to become . It is not known whether albuterol will harm an unborn baby. However, having uncontrolled asthma during may increase the riskof premature , low weight, or eclampsia (dangerously high blood pressure that can lead to medical problems in both mother and baby). The benefit of preventing bronchospasm may outweigh any risks to the baby. If you are , your name may be listed on a registry to track the effects of albuterol on the baby. It may not be safe to breastfeed while using this medicine. Ask your doctor about any risk. How should I use albuterol inhalation? Follow all directions on your prescription label and read all medication guides. Use the medicine exactly as directed. Do not allow a young child to use albuterol inhalation without help from an adult. To prevent exercise-induced bronchospasm, use this medicine 15 to 30 minutes before you exercise. The effects of albuterol inhalation should last about 4 to 6 hours. Seek medical attention if your breathing problems get worse quickly, or if you think your asthma medications are not working as well. Read and carefully follow any Instructions for Use provided with your medicine. Ask your doctor or pharmacist if you do not understand these instructions. ProAir HFA, Proventil HFA, or Ventolin HFA must be shaken before each use. You do not need to shakeProAir RespiClick before using. Do not try to clean or take apart the ProAir RespiClick inhaler device. Always use the new inhaler device provided with your refill. Do not float a medicine canister in water to see if it is empty. Your dose needs may change due to surgery, illness, stress, or a recent asthma attack. Do not change your dose or dosing schedule without your doctor's advice. Store at room temperature away from moisture, heat, or cold temperatures. Keep the cover on your ProAir RespiClick inhaler when not in use. Store Proventil or Ventolin with the mouthpiece down. Keep the inhaler canister away from open flame or high heat. The canister may explode if it gets too hot. Do not puncture or burn an empty inhaler canister. What happens if I miss a dose? Use the medicine as soon as you can, but skip the missed dose if it is almost time for your next dose. Do not use two doses at one time. Get your prescription refilled before you run out of medicine completely. What happens if I overdose? Seek emergency medical attention or call the Poison Help line at . An overdose of albuterol can be fatal. Overdose symptoms may include dry mouth, tremors, chest pain, fast heartbeats, nausea, general ill feeling, seizure, feeling light-headed or fainting. What should I avoid while using albuterol inhalation? Rinse with water if this medicine gets in your eyes. What are the possible side effects of albuterol inhalation? Get emergency medical help if you have signs of an allergic reaction: hives; difficult breathing; swelling of your face, lips, tongue, or throat. Call your doctor at once if you have: wheezing, choking, or other breathing problems after using this medicine; chest pain, fast heart rate, pounding heartbeats or fluttering in your chest; severe headache, pounding in your neck or ears; pain or burning when you urinate; high blood sugar--increased thirst, increased urination, dry mouth, fruity breath odor; or low potassium--leg cramps, constipation, irregular heartbeats, increased thirst or urination, numbness or tingling, muscle weakness or limp feeling. Common side effects may include: chest pain, fast or pounding heartbeats; upset stomach, vomiting; painful urination; dizziness; feeling shaky or nervous; headache, back pain, body aches; or cough, sore throat, sinus pain, runny or stuffy nose. This is not a complete list of side effects and others may occur. Call your doctor for medical advice about side effects. You may report side effects to FDA at 3-452-KRH-1088. What other drugs will affect albuterol inhalation? Tell your doctor about all your other medicines, especially: any other inhaled medicines or bronchodilators; digoxin; a diuretic or 'water pill'; an antidepressant--amitriptyline, desipramine, imipramine, doxepin, nortriptyline, and others; a beta bradford--atenolol, carvedilol, labetalol, metoprolol, propranolol, sotalol, and others; or an MAO inhibitor--isocarboxazid, linezolid, methylene blue injection, phenelzine, rasagiline, selegiline, tranylcypromine, and others. This list is not complete. Other drugs may affect albuterol inhalation, including prescription and xolx-ejh-liywujz medicines, vitamins, and herbal products. Not all possible drug interactions are listed here. Where can I get more information? Your pharmacist can provide more information about albuterol inhalation. Remember, keep this and all other medicines out of the reach of children, never share your medicines with others, and use this medication only for the indication prescribed. Every effort has been made to ensure that the information provided by [employer]. ('[employer]') is accurate, up-to-date, and complete, but no guarantee is made to that effect. Drug information contained herein may be time sensitive. [employer] information has been compiled for use by healthcare practitioners and consumers in the [place] and therefore [employer] does not warrant that uses outside of the [place] are appropriate, unless specifically indicated otherwise. [employer] drug information does not endorse drugs, diagnose patients or recommend therapy. [employer] drug information isan informational resource designed to assist licensed healthcare practitioners in caring for their p atients and/or to serve consumers viewing this service as a supplement to, and not a substitute for, the expertise, skill, knowledge and judgment of healthcare practitioners. The absence of a warningfor a given drug or drug combination in no way should be construed to indicate that the drug or drug combination is safe, effective or appropriate for any given patient. [employer] does not assume any responsibility for any aspect of healthcare administered with the aid of information [employer] provides. The information contained herein is not intended to cover all possible uses, directions, precautions, warnings, drug interactions, allergic reactions, or adverse effects. If you have questions about the drugs you are taking, check with your doctor, nurse or pharmacist. Copyright 5556-0545 [employer]. Version: 10.. Revision Date: 07/31/2020. meclizine (KATHERINE cervantes goldie) Antivert, Bonine, Bonine Max, Dramamine Less Drowsy, Dramamine Nausea Long Lasting, Travel-Ease What is the most important information I should know about meclizine? Use only as directed. Tell your doctor if you use other medicines or have other medical conditions or allergies. What is meclizine? Meclizine is used in adults and children aged 12 years and older to treat or prevent nausea, vomiting and dizziness caused by motion sickness. Meclizine is also used in adults to treat symptoms of vertigo (dizziness or spinning sensation) caused by disease that affects your inner ear. Meclizine may also be used for purposes not listed in this medication guide. What should I discuss with my healthcare provider before taking meclizine? You should not use meclizine if you are allergic to it. Do not give this medicine to anyone younger than 12 years old without medical advice. Tell your doctor if you have or have ever had: glaucoma; breathing problems such as asthma, emphysema, or chronic bronchitis; an enlarged prostate or urination problems; recently used alcohol, sedatives, or tranquilizers; or liver or kidney disease. Tell your doctor if you are or . How should I take meclizine? Follow all directions on your prescription label and read all medication guides or instruction sheets. Use the medicine exactly as directed. Swallow the tablet whole and do not crush, chew, or break it. You must chew the chewable tablet before you swallow it. To prevent motion sickness, take meclizine about 1 hour before you travel or anticipate having motion sickness. You may take meclizine once every 24 hours while you are traveling, to further prevent motion sickness. To treat vertigo, you may need to take meclizine several times daily. Follow your doctor's instructions. Store at room temperature away from moisture, heat, and light. What happens if I miss a dose? Meclizine is used when needed. If you are on a dosing schedule, skip any missed dose. Do not use two doses at one time. What happens if I overdose? Seek emergency medical attention or call the Poison Help line at . What should I avoid while taking meclizine? Avoid driving or hazardous activity until you know how this medicine will affect you. Your reactions could be impaired. Avoid drinking alcohol. Drinking alcohol with this medicine can cause side effects. What are the possible side effects of meclizine? Get emergency medical help if you have signs of an allergic reaction: hives, difficult breathing, swelling of your face, lips, tongue, or throat. Common side effects may include: drowsiness; dry mouth; headache; vomiting; or feeling tired. This is not a complete list of side effects and others may occur. Call your doctor for medical advice about side effects. You may report side effects to FDA at 2-048-QRY-7587. What other drugs will affect meclizine? Using meclizine with other drugs that make you drowsy can worsen this effect. Ask your doctor before using opioid medication, a sleeping pill, a muscle relaxer, or medicine for anxiety or seizures. Sometimes it is not safe to use certain medicines at the same time. Some drugs can affect your blood levels of other drugs you use, which may increase side effects or make the medicines less effective. Other drugs may affect meclizine, including prescription and uwtd-twb-uksslpz medicines, vitamins, and herbal products. Tell your doctor about all other medicines you use. Where can I get more information? Your doctor or pharmacist can provide more information about meclizine. Remember, keep this and all other medicines out of the reach of children, never share your medicines with others, and use this medication only for the indication prescribed. Every effort has been made to ensure that the information provided by [employer]') is accurate, up-to-date, and complete, but no guarantee is made to that effect. Drug information contained herein may be time sensitive. [employer] information has been compiled for use by healthcare practitioners and consumers in the [place] and therefore [employer] does not warrant that uses outside of the [place] are appropriate, unless specifically indicated otherwise. [employer] drug information does not endorse drugs, diagnose patients or recommend therapy. [employer] drug information isan informational resource designed to assist licensed healthcare practitioners in caring for their p atients and/or to serve consumers viewing this service as a supplement to, and not a substitute for, the expertise, skill, knowledge and judgment of healthcare practitioners. The absence of a warningfor a given drug or drug combination in no way should be construed to indicate that the drug or drug combination is safe, effective or appropriate for any given patient. [facility] does not assume any responsibility for any aspect of healthcare administered with the aid of information [facility] provides. The information contained herein is not intended to cover all possible uses, directions, precautions, warnings, drug interactions, allergic reactions, or adverse effects. If you have questions about the drugs you are taking, check with your doctor, nurse or pharmacist. Copyright 6353-0118 [employer]. Version: 8.01. Revision Date: 05/11/2023. Education Materials Dizziness (Uncertain Cause) Dizziness is a common symptom. It may be described as lightheadedness, spinning, or feeling like you are going to faint. Dizziness can have many causes. Be sure to tell the healthcare provider about: All medicines you take, including prescription, latp-mbh-mexiwgv, herbs, and supplements Any other symptoms you have Any health problems you are being treated for Any past major health problems you've had, such as a heart attack, balance issues, hearing problems, or blood pressure problems Anything that causes the dizziness to get worse or better Today's exam did not show an exact cause for your dizziness. Other tests may be needed. Follow up with your healthcare provider. Home care Dizziness that occurs with sudden standing may be a sign of mild dehydration. Drink extra fluids for the next few days. If you recently started a new medicine, stopped a medicine, or had the dose of a current medicine changed, talk with the prescribing healthcare provider. Your medicine plan may need adjustment. If dizziness lasts more than a few seconds, sit or lie down until it passes. This may help prevent injury in case you pass out. Get up slowly when you feel better. Don't drive or use power tools or dangerous equipment until you have had no dizziness for at least 48 hours. Follow-up care Follow up with your healthcare provider for further evaluation within the next 7 days or as advised. When to seek medical advice Call your healthcare provider for any of the following: Worsening of symptoms or new symptoms Passing out or seizure Repeated vomiting Headache Palpitations (the sense that your heart is fluttering or beating fast or hard) Shortness of breath Blood in vomit or stool (black or red color) Weakness of an arm or leg or 1 side of the face Vision or hearing changes Trouble walking or speaking Chest, arm, neck, back, or jaw pain 4440-9428 [employer]. [address] [place] [address], [place] [address]. All rights reserved. This information is not intended as a substitute for professional medical care. Always follow yourhealthcare professional's instructions. Additional Information VACCINATE! IT SAVES LIVES! Members of the community who have not yet received the COVID-19 vaccine and would like to receive it can visit one of [facility] vaccine clinics. There are many vaccine clinic locations within the [facility]. For locations and available times, please visit [email or web address] It is important to note that some COVID mobile vaccine clinics are held outdoors and may be canceled in rainy or stormy conditions. To learn more about pediatric vaccinations (ages 5-11), we invite you to visit the [facility] webpage. [email or web address] learn more about the COVID-19 vaccine, we invite you to visit the CDC website for a list of frequently asked questions. https://www.cdc.gov/coronavirus/2019-ncov/vaccines/faq.html [facility] Patient Portal Access Instructions: Stay connected with your healthcare team and access your personal medical information anytime with the [facility] Patient Portal. If you would like a full copy of your medical records please contact the [facility] Medical Records Department Wednesday through Wednesday between 8a.m. and 4:30p.m. Please follow the directions below to access the portal: 1.Access the email account you provided upon registration to the hospital.2.Look for an invitation email from [facility].3.Open the email and access the invitation link: Accept Invitation to [facility].Fill in the required hetser to create your account. Sign into www.[employer] with your username and password that you created in the above steps to stay up to date. You can then view a summary of results, a summary of your visits, and the ability to download your summaries to your computer or send the information securely to a physician. Remember that your healthcare information is confidential, so carefully consider who you will allow to register on the [facility] Portal for access to your information. You can also access the [facility] Portal on the [employer]. Simply click on Health Records under [facility] and then click on the [employer] logo. HOW TO SAFELY DISPOSE OF PRESCRIPTION MEDICATIONS Please use one of the following methods to safely dispose of your unused medications. 1.Use a drug disposal kit: the drug disposal pouch allows you to safely discard your old and unuseddrugs. Ask your nurse to give you one when you are discharged.2.Visit a local take-back location: Many local pharmacies and police departments have programs that collect old and unwanted prescriptiondrugs. Call your local pharmacy or go to [email or web address] to find one close to you.3.Make use of household items: Use cat litter or old coffee grounds to dispose medications if other options arenot available. Mix your drugs with these household products, seal them in an airtight container andthrow it into the garbage. Call [facility]: [phone] to be sure your drugs can be disposed of in this way. Some medicines may require a different approach.4.Never flush your medications down the toilet. IF YOU HAVE BEEN PRESCRIBED AN OPIOIDS FOR PAIN If you have been prescribed an opioid (such as hydrocodone, oxycodone or morphine), it is critical to understand the possible side effects and risks of opioid pain medications. Even when taken as directed, opioids can have several side effects including: Tolerance, meaning you might need to take more of a medication for the same pain relief. Nausea, vomiting and/or constipation. Sleepiness, dizziness, dry mouth, confusion, depression or itching. Physical dependence, meaning you have withdrawal symptoms when a medication is stopped ? this can develop within a few days. KNOW YOUR RESPONSIBILITIES It is important to know exactly how much and how often to take the opioid pain medications you are prescribed. Never take opioids in higher amounts or more often than prescribed. Do not combine opioids with alcohol or other drugs that cause drowsiness, such as benzodiazepines, also known as benzos,including diazepam and alprazolam, muscle relaxants or sleep aids. Never sell or share prescriptionopioids. This is illegal. Store opioids in a secure place and out of reach of others (including children, family, friends and visitors). The last page(s) of this document has been signed and retained as a CHART COPY Signatures Patient Education Materials Dizziness, Uncertain Cause Medication Leaflets acetaminophen and hydrocodone, ondansetron (oral), albuterol inhalation, meclizine My discharge plan and instructions have been reviewed and explained to me and I,ALBANIA RAMSEY understand my current condition and have read and understand these discharge instructions. I have received a written copy of the plan/instructions. If I have questions, I am aware that I should contact my doctor. 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 [place] [address] Xr Imaging Referral ID Status Reason Start Date Expiration Date V isits Requested Visits Authorized [id number] Closed Auto-Generate d Referral 10/30/2021 11/29/2022 1 1 [facility] for referral (narrative)* Diagnostic Procedure Only (Routine) - Pending Review Specialty Diagnoses / Procedures Referred By Josh redd Referred To Contact BR IMAGING Diagnoses Encounter for screening mammogram for breast cancer Procedures HIPOLITO SCREENING SCREENING MAMMOGRAPHY BI 2-VIEW BREAST INC Teresa Nation MD [address] [place] [address] Br Imaging [address] [place] [address] Referral ID Status Reason Start Date Expiration Date Visits Requested Visits Authorized [id number] Pending Review Auto-Generat ed Referral 03/11/2022 04/10/2023 1 1 T [facility] for referral (narrative)* Diagnostic Procedure Only (Routine) - Authorized Specialty Diagnoses / Procedures Referred By Josh redd Referred To Contact BR IMAGING Diagnoses Encounter for screening mammogram for malignant neoplasm of breast Procedures HIPOLITO SCREENING SCREENING MAMMOGRAPHY BI 2-VIEW BREAST INC Teresa Nation MD [address] [place] [address] [facility] [address] [place] [address] Referral ID Status Reason Start Date Expiration Date Visits Requested Visits Authorized [id number] Authorized Auto-Generat ed Referral 05/11/2022 06/10/2023 1 1 [facility] for referral (narrative)* Diagnostic Procedure Only (Routine) - Closed Specialty Diagnoses / Procedures Referred By Josh redd Referred To Contact BR IMAGING Diagnoses Encounter for screening mammogram for malignant neoplasm of breast Procedures HIPOLITO SCREENING SCREENING MAMMOGRAPHY BI 2-VIEW BREAST INC Teresa Nation MD [address] [place] [address] [facility] [address] [place] [address] Referral ID Status Reason Start Date Expiration Date V isits Requested Visits Authorized [id number] Closed Auto-Generate d Referral 05/11/2022 06/10/2023 1 1 [facility] for referral (narrative)* Diagnostic Procedure Only (Routine) - Pending Review Specialty Diagnoses / Procedures Referred By Contac t Referred To Contact XR IMAGING Diagnoses Right shoulder pain, unspecified chronicity Procedures XR SHOULDER GENERAL 3V OR MORE AP/TRUE AP/OTHER RIGHT RADEX SHOULDER COMPLETE MINIMUM 2 VIEWS Chester Freire MD [address] [place] [address] Xr Imaging Referral ID Status Reason Start Date Expiration Date Visits Requested Visits Authorized [id number] Pending Review Auto-Generat ed Referral 12/24/2022 01/23/2024 1 1 [facility] for referral (narrative)* Diagnostic Procedure Only (Routine) - Closed Specialty Diagnoses / Procedures Referred By Contac t Referred To Contact XR IMAGING Diagnoses Acute pain of left shoulder Procedures XR SHOULDER GENERAL 3V OR MORE AP/TRUE AP/OTHER LEFT RADEX SHOULDER COMPLETE MINIMUM 2 VIEWS Nga Ferrer APRN.CLINICAL WRITER [address] [place] [address] [place] [address] Referral ID Status Reason Start Date Expiration Date V isits Requested Visits Authorized [id number] Closed Auto-Generate d Referral 05/12/2023 06/10/2024 1 1 * Diagnostic Procedure Only (Routine) - Closed Specialty Diagnoses / Procedures Referred By Contac t Referred To Contact XR IMAGING Diagnoses Tail bone pain Procedures XR SACRUM/COCCYX 3V AP/LAT RADEX SACRUM & COCCYX MINIMUM 2 VIEWS Nga Ferrer APRN.CNP [address] [place] [address] [place] [address] Referral ID Status Reason Start Date Expiration Date V isits Requested Visits Authorized [id number] Closed Auto-Generate d Referral 05/12/2023 06/10/2024 1 1 * Diagnostic Procedure Only (Routine) - Closed Specialty Diagnoses / Procedures Referred By Contac t Referred To Contact XR IMAGING Diagnoses Tail bone pain Procedures XR LUMBAR GENERAL 3V AP/LAT/L5-S1 RADEX SPINE LUMBOSACRAL 2/3 VIEWS Nga Ferrer, CARLENE.NEAL [address] [place] [address] [place] [address] Referral ID Status Reason Start Date Expiration Date V isits Requested Visits Authorized [id number] Closed Auto-Generate d Referral 05/12/2023 06/10/2024 1 1 [facility] for referral (narrative)* Outpatient Procedure (Routine) - Authorized Specialty Diagnoses / Procedures Referred By Contac t Referred To Contact [facility] Diagnoses Chronic obstructive pulmonary disease, unspecified COPD type (HCC) Procedures OXIMETRY WITH AMBULATION NONINVASIVE EAR/PULSE OXIMETRY MULTIPLE DETER Tiki Loo MD [address] [place] [address] Res[facility] [place] [address] [place] [address] Referral ID Status Reason Start Date Expiration Date Visits Requested Visits Authorized [id number] Authorized Auto-Generat ed Referral 05/31/2023 06/29/2024 1 1 * Outpatient Procedure (Routine) - Authorized Specialty Diagnoses / Procedures Referred By Contac t Referred To Contact [facility] Diagnoses Chronic obstructive pulmonary disease, unspecified COPD type (HCC) Procedures LUNG DIFFUSION CAPACITY (DLCO) DIFFUSING CAPACITY Tiki Loo MD [address] [place] [address] Res[facility] [place] [address] [place], [place] [id number] Referral ID Status Reason Start Date Expiration Date Visits Requested Visits Authorized [id number] Authorized Auto-Generat ed Referral 05/31/2023 06/29/2024 1 1 * Outpatient Procedure (Routine) - Pending Review Specialty Diagnoses / Procedures Referred By Josh t Referred To Contact [facility] Diagnoses Chronic obstructive pulmonary disease, unspecified COPD type (HCC) Procedures LUNG VOLUMES Tiki Loo MD [address] [place] [address] [facility] [place] [address] [place] [address] Referral ID Status Reason Start Date Expiration Date Visits Requested Visits Authorized [id number] Pending Review Auto-Generat ed Referral 05/31/2023 06/29/2024 1 1 * Outpatient Procedure (Routine) - Authorized Specialty Diagnoses / Procedures Referred By Josh t Referred To Contact [facility] Diagnoses Chronic obstructive pulmonary disease, unspecified COPD type (HCC) Procedures SPIROMETRY WITH DILATOR IF OBSTRUCTED BRNCDILAT RSPSE SPMTRY PRE&POST-BRNCDILAT ADMTiki Wolf MD [address] [place] [address] Res[facility] [place] [address] [place] [address] Referral ID Status Reason Start Date Expiration Date Visits Requested Visits Authorized [id number] Authorized Auto-Generat ed Referral 05/31/2023 06/29/2024 1 1 [facility] for referral (narrative)* Diagnostic Procedure Only (Routine) - Pending Review Specialty Diagnoses / Procedures Referred By Josh t Referred To Contact BR IMAGING Diagnoses Encounter for screening mammogram for breast cancer Procedures HIPOLITO SCREENING SCREENING MAMMOGRAPHY BI 2-VIEW BREAST INC CAD Teresa Aguilar MD [address] [place] [address] [facility] [address] [place] [address] Referral ID Status Reason Start Date Expiration Date Visits Requested Visits Authorized [id number] Pending Review Auto-Generat ed Referral 07/22/2024 1 1 [facility] for referral (narrative)* Diagnostic Procedure Only (Routine) - Pending Review Specialty Diagnoses / Procedures Referred By Contac t Referred To Contact XR IMAGING Diagnoses Chronic right shoulder pain Procedures XR SHOULDER GENERAL 3V OR MORE AP/TRUE AP/OTHER RIGHT RADEX SHOULDER COMPLETE MINIMUM 2 VIEWS Kimberlee Kennedy PA-C [address] [place] [address] [place] [address] Referral ID Status Reason Start Date Expiration Date Visits Requested Visits Authorized [id number] Pending Review Auto-Generat ed Referral 09/21/2024 1 1 [facility] for referral (narrative)* Diagnostic Procedure Only (Routine) - Pending Review Specialty Diagnoses / Procedures Referred By Contac t Referred To Contact XR IMAGING Diagnoses Chronic right shoulder pain Procedures XR SHOULDER GENERAL 3V OR MORE AP/TRUE AP/OTHER RIGHT RADEX SHOULDER COMPLETE MINIMUM 2 VIEWS iKmberlee Kennedy PA-C [address] [place] [address] [place] [address] Referral ID Status Reason Start Date Expiration Date Visits Requested Visits Authorized [id number] Pending Review Auto-Generat ed Referral 10/21/2023 2024 1 1 [facility] for referral (narrative)* Diagnostic Procedure Only (Routine) - Pending Review Specialty Diagnoses / Procedures Referred By Contac t Referred To Contact XR IMAGING Diagnoses Chronic right shoulder pain Procedures XR SHOULDER GENERAL 3V OR MORE AP/TRUE AP/OTHER RIGHT RADEX SHOULDER COMPLETE MINIMUM 2 VIEWS Kimberlee Kennedy PA-C [address] [place] [address] [place] [address] Referral ID Status Reason Start Date Expiration Date Visits Requested Visits Authorized [id number] Pending Review Auto-Generat ed Referral 01/03/2024 02/01/2025 1 1 [facility] for referral (narrative)* Diagnostic Procedure Only (Routine) - Closed Specialty Diagnoses / Procedures Referred By Contac t Referred To Contact XR IMAGING Diagnoses Chronic right shoulder pain Procedures XR SHOULDER GENERAL 3V OR MORE AP/TRUE AP/OTHER RIGHT RADEX SHOULDER COMPLETE MINIMUM 2 VIEWS Kimberlee Kennedy PA-C [address] [place] [address] [place] [address] Referral ID Status Reason Start Date Expiration Date V isits Requested Visits Authorized [id number] Closed Auto-Generate d Referral 01/03/2024 02/01/2025 1 1 T [facility] for referral (narrative)* Diagnostic Procedure Only (Routine) - Closed Specialty Diagnoses / Procedures Referred By Contac t Referred To Contact XR IMAGING Diagnoses Chronic right shoulder pain Procedures XR SHOULDER GENERAL 3V OR MORE AP/TRUE AP/OTHER RIGHT RADEX SHOULDER COMPLETE MINIMUM 2 VIEWS Kimberlee Kennedy PA-C [address] [place] [address] [place] [address] Referral ID Status Reason Start Date Expiration Date V isits Requested Visits Authorized [id number] Closed Auto-Generate d Referral 11/16/2023 12/15/2024 1 1 T [facility] for referral (narrative)* Diagnostic Procedure Only (Routine) - Closed Specialty Diagnoses / Procedures Referred By Contac t Referred To Contact XR IMAGING Diagnoses Chronic right shoulder pain Procedures XR SHOULDER GENERAL 3V OR MORE AP/TRUE AP/OTHER RIGHT RADEX SHOULDER COMPLETE MINIMUM 2 VIEWS Kimberlee Kennedy PA-C [address] [place] [address] [place] [address] Referral ID Status Reason Start Date Expiration Date V isits Requested Visits Authorized [id number] Closed Auto-Generate d Referral 09/22/2023 10/20/2024 1 1 [facility] for referral (narrative)* Diagnostic Procedure Only (Routine) - Closed Specialty Diagnoses / Procedures Referred By Contac t Referred To Contact XR IMAGING Diagnoses Chronic right shoulder pain Procedures XR SHOULDER GENERAL 3V OR MORE AP/TRUE AP/OTHER RIGHT RADEX SHOULDER COMPLETE MINIMUM 2 VIEWS Kimberlee Kennedy PA-C [address] [place] [address] [place] [address] Referral ID Status Reason Start Date Expiration Date V isits Requested Visits Authorized [id number] Closed Auto-Generate d Referral 10/21/2023 2024 1 1 [facility] for referral (narrative)* Diagnostic Procedure Only (Routine) - Closed Specialty Diagnoses / Procedures Referred By Contac t Referred To Contact XR IMAGING Diagnoses Left hip pain Procedures XR HIP GENERAL 3V PELV/AP/LAT LEFT RADEX HIP UNILATERAL WITH PELVIS 2-3 VIEWS Nga Ferrer, TEACHER TUTOR.CLINICAL WRITER [address] [place] [address] [place] [address] Referral ID Status Reason Start Date Expiration Date V isits Requested Visits Authorized [id number] Closed Auto-Generate d Referral 10/11/2023 11/09/2024 1 1 [facility] for referral (narrative)* Diagnostic Procedure Only (Routine) - Closed Specialty Diagnoses / Procedures Referred By Contac t Referred To Contact XR IMAGING Diagnoses Chronic right shoulder pain Procedures XR SHOULDER GENERAL 3V OR MORE AP/TRUE AP/OTHER RIGHT RADEX SHOULDER COMPLETE MINIMUM 2 VIEWS Kimberlee Kennedy PA-C [address] [place] [address] [place] [address] Referral ID Status Reason Start Date Expiration Date V isits Requested Visits Authorized [id number] Closed Auto-Generate d Referral 08/23/2023 09/21/2024 1 1 [facility] for referral (narrative)* Outpatient Procedure (Routine) - Authorized Specialty Diagnoses / Procedures Referred By Contac t Referred To Contact [facility] Diagnoses Requires oxygen therapy Procedures SIX MINUTE WALK CARDIOPULMONARY EXERCISE STRESS Teresa Aguilar MD [address] [place] [address] [facility] [facility] [address] [place] [address] Referral ID Status Reason Start Date Expiration Date Visits Requested Visits Authorized [id number] Authorized Auto-Generat ed Referral 05/25/2024 06/24/2025 1 1 [facility] for referral (narrative)* Diagnostic Procedure Only (Routine) - Closed Specialty Diagnoses / Procedures [facility] Diagnoses Acute pain of left shoulder Procedures XR SHOULDER GENERAL 3V OR MORE AP/TRUE AP/OTHER LEFT RADEX SHOULDER COMPLETE MINIMUM 2 VIEWS Nga Ferrer APRN.CNP [address] [place] [place] [id number] [place] [address] Referral ID Status Reason Start Date Expiration Date V isits Requested Visits Authorized [id number] Closed Auto-Generate d Referral 05/12/2023 06/10/2024 1 1 * Diagnostic Procedure Only (Routine) - Closed Specialty Diagnoses / Procedures [facility] Diagnoses Tail bone pain Procedures XR SACRUM/COCCYX 3V AP/LAT RADEX SACRUM & COCCYX MINIMUM 2 VIEWS Nga Ferrer APRN.CNP [address] [place] [address] [place] [address] Referral ID Status Reason Start Date Expiration Date V isits Requested Visits Authorized [id number] Closed Auto-Generate d Referral 05/12/2023 06/10/2024 1 1 * Diagnostic Procedure Only (Routine) - Closed Specialty Diagnoses / Procedures Referred By Josh redd Referred To Contact XR IMAGING Diagnoses Tail bone pain Procedures XR LUMBAR GENERAL 3V AP/LAT/L5-S1 RADEX SPINE LUMBOSACRAL 2/3 VIEWS Nga Ferrer APRN.CNP [address] [place] [address] [place] [address] Referral ID Status Reason Start Date Expiration Date V isits Requested Visits Authorized [id number] Closed Auto-Generate d Referral 05/12/2023 06/10/2024 1 1 [facility] for referral (narrative)* Diagnostic Procedure Only (Routine) - New Request Specialty Diagnoses / Procedures Referred By Josh redd Referred To Contact BR IM[facility] Diagnoses Encounter for screening mammogram for breast cancer Procedures HIPOLITO SCREENING W DUONG SCREENING DIGITAL BREAST TOMOSYNTHESIS BI SCREENING MAMMOGRAPHY BI 2-VIEW BREAST INC CAD Teresa Aguilar MD [address] [place] [address] [facility] [address] [place] [address] Referral ID Status Reason Start Date Expiration Date Visits Requested Visits Authorized [id number] New Request Auto-Generat ed Referral 05/31/2024 06/30/2025 1 1 [facility] for referral (narrative)* Outpatient Procedure (Routine) - Closed Specialty Diagnoses / Procedures Referred By Josh redd Referred To Contact [facility] Diagnoses COPD, severe (HCC) Requires oxygen therapy SOB (shortness of breath) Procedures OXIMETRY WITH AMBULATION NONINVASIVE EAR/PULSE OXIMETRY MULTIPLE Nga Claudio APRN.CLINICAL WRITER [address] [place] [address] [facility] [facility] [address] [place] [address] Referral ID Status Reason Start Date Expiration Date V isits Requested Visits Authorized [id number] Closed Auto-Generate d Referral 06/05/2024 09/12/2024 1 1 [facility] for visit Narrative* Diagnostic Procedure Only (Routine) - Closed Specialty Diagnoses / Procedures Referred By Contac t Referred To Contact XR IMAGING Diagnoses Chronic right shoulder pain Procedures XR SHOULDER GENERAL 3V OR MORE AP/TRUE AP/OTHER RIGHT RADEX SHOULDER COMPLETE MINIMUM 2 VIEWS Carolyn Jamison MD [address] [place] [address] X[facility] Referral ID Status Reason Start Date Expiration Date V isits Requested Visits Authorized [id number] Closed Auto-Generate d Referral 10/30/2021 11/29/2022 1 1 [facility] for visit Narrative* Diagnostic Procedure Only (Routine) - Closed Specialty Diagnoses / Procedures Referred By Contac t Referred To Contact [facility] Diagnoses Encounter for screening mammogram for malignant neoplasm of breast Procedures HIPOLITO SCREENING SCREENING MAMMOGRAPHY BI 2-VIEW BREAST INC Teresa Nation MD [address] [place] [address] [facility] [address] [place] [address] Referral ID Status Reason Start Date Expiration Date V isits Requested Visits Authorized [id number] Closed Auto-Generate d Referral 05/11/2022 06/10/2023 1 1 [facility] for visit Narrative* Diagnostic Procedure Only (Routine) - Closed Specialty Diagnoses / Procedures Referred By Contac t Referred To Contact XR IMAGING Diagnoses Chronic right shoulder pain Procedures XR SHOULDER GENERAL 3V OR MORE AP/TRUE AP/OTHER RIGHT RADEX SHOULDER COMPLETE MINIMUM 2 VIEWS Kimberlee Kennedy PA-C [address] [place] [address] [place] [address] Referral ID Status Reason Start Date Expiration Date V isits Requested Visits Authorized [id number] Closed Auto-Generate d Referral 01/03/2024 02/01/2025 1 1 [facility] for visit Narrative* Diagnostic Procedure Only (Routine) - Closed Specialty Diagnoses / Procedures Referred By Contac t Referred To Contact XR IMAGING Diagnoses Chronic right shoulder pain Procedures XR SHOULDER GENERAL 3V OR MORE AP/TRUE AP/OTHER RIGHT RADEX SHOULDER COMPLETE MINIMUM 2 VIEWS Kimberlee Kennedy PA-C [address] [place] [address] [place] [address] Referral ID Status Reason Start Date Expiration Date V isits Requested Visits Authorized [id number] Closed Auto-Generate d Referral 11/16/2023 12/15/2024 1 1 [facility] for visit Narrative* Diagnostic Procedure Only (Routine) - Closed Specialty Diagnoses / Procedures Referred By Contac t Referred To Contact XR IMAGING Diagnoses Chronic right shoulder pain Procedures XR SHOULDER GENERAL 3V OR MORE AP/TRUE AP/OTHER RIGHT RADEX SHOULDER COMPLETE MINIMUM 2 VIEWS Kimberlee Kennedy PA-C [address] [place] [address] [place] [address] Referral ID Status Reason Start Date Expiration Date V isits Requested Visits Authorized [id number] Closed Auto-Generate d Referral 09/22/2023 10/20/2024 1 1 [facility] for visit Narrative* Diagnostic Procedure Only (Routine) - Closed Specialty Diagnoses / Procedures Referred By Contac t Referred To Contact XR IMAGING Diagnoses Chronic right shoulder pain Procedures XR SHOULDER GENERAL 3V OR MORE AP/TRUE AP/OTHER RIGHT RADEX SHOULDER COMPLETE MINIMUM 2 VIEWS Kimberlee Kennedy PA-C [address] [place] [address] [place] [address] Referral ID Status Reason Start Date Expiration Date V isits Requested Visits Authorized [id number] Closed Auto-Generate d Referral 10/21/2023 2024 1 1 [facility] for visit Narrative* Diagnostic Procedure Only (Routine) - Closed Specialty Diagnoses / Procedures Referred By Contac t Referred To Contact XR IMAGING Diagnoses Left hip pain Procedures XR HIP GENERAL 3V PELV/AP/LAT LEFT RADEX HIP UNILATERAL WITH PELVIS 2-3 VIEWS Nga Ferrer, TEACHER TUTOR.CLINICAL WRITER [address] [place] [address] [place] [address] Referral ID Status Reason Start Date Expiration Date V isits Requested Visits Authorized [id number] Closed Auto-Generate d Referral 10/11/2023 11/09/2024 1 1 [facility] for visit Narrative* Diagnostic Procedure Only (Routine) - Closed Specialty Diagnoses / Procedures Referred By Contac t Referred To Contact XR IMAGING Diagnoses Chronic right shoulder pain Procedures XR SHOULDER GENERAL 3V OR MORE AP/TRUE AP/OTHER RIGHT RADEX SHOULDER COMPLETE MINIMUM 2 VIEWS Kimberlee Kenendy PA-C [address] [place] [address] [place] [address] Referral ID Status Reason Start Date Expiration Date V isits Requested Visits Authorized [id number] Closed Auto-Generate d Referral 08/23/2023 09/21/2024 1 1 [facility] for visit Narrative* Diagnostic Procedure Only (Routine) - Closed Specialty Diagnoses / Procedures Referred By Contac t Referred To Contact XR IMAGING Diagnoses Acute pain of left shoulder Procedures XR SHOULDER GENERAL 3V OR MORE AP/TRUE AP/OTHER LEFT RADEX SHOULDER COMPLETE MINIMUM 2 VIEWS Nga Ferrer, CARLENE.CLINICAL WRITER [address] [place] [address] [place] [address] Referral ID Status Reason Start Date Expiration Date V isits Requested Visits Authorized [id number] Closed Auto-Generate d Referral 05/12/2023 06/10/2024 1 1 [facility] Summary Purpose Family History Relationship Condition Age at Onset Recorded Date/T clarisse Unknown Family History?Heart Disease Unknown October 31, 2015 7:36pm Family History?Heart Disease Unknown October 31, 2015 7:36pm Advance Directives Documents on File Type Date Recorded 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 Advance Directive(s) 11/28/2020 3:58 PM Advance Directive(s) 11/18/2020 8:49 AM Advance Directive(s) 11/21/2019 6:37 AM Advance Directive(s) 11/01/2018 9:53 AM Advance Directive(s) 10/19/2018 8:09 AM Advance Directive(s) 10/28/2010 9:04 PM Documents on File Type Date Recorded 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 Advance Directive(s) 10/28/2010 9:04 PM Documents on File Type Date Recorded 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 Advance Directive(s) 10/28/2010 9:04 PM Advance Directive Response Recorded Date/ Time Living Will No November 27, 2022 9:02am Power of [employer] No November 27 9:02am Reason for Referral Specialty Diagnoses / Procedures Referred By Contac t Referred To Contact Diagnoses Chronic obstructive pulmonary disease, unspecified COPD type (HCC) Josh Mirza, TEACHER TUTOR.CLINICAL WRITER [address] [place] [address] Referral ID Status Reason Start Date Expiration Date V isits Requested Visits Authorized [id number] Pending Review 1 1 Specialty Diagnoses / Procedures Referred By Contac t Referred To Contact MR IMAGING Diagnoses Cognitive impairment, mild, so stated Procedures MRI BRAIN WO/W IVCON MRI BRAIN BRAIN STEM W/O W/CONTRAST MATERIAL Nga Ferrer, CARLENE.CLINICAL WRITER [address] [place] [address] [place] [address] Referral ID Status Reason Start Date Expiration Date Visits Requested Visits Authorized [id number] Authorized Auto-Generat ed Referral 06/09/2024 07/24/2024 1 1 Specialty Diagnoses / Procedures Referred By Contac t Referred To Contact Neurology Diagnoses [place] Cognitive changes Procedures CONSULT TO NEUROLOGY OFFICE/OUTPATIENT [facility] MDM 60 MINUTES Nga Ferrer, TEACHER TUTOR.CLINICAL WRITER [address] [place] [address] Referral ID Status Reason Start Date Expiration Date Visits Requested Visits Authorized [id number] Authorized PCP Requested Referral 06/09/2024 06/09/2025 1 1 Specialty Diagnoses / Procedures Referred By Contac t Referred To Contact CT IMAGING Diagnoses Status post reverse total replacement of right shoulder Right shoulder pain, unspecified chronicity Procedures CT SHOULDER WO IVCON RIGHT CT UPPER EXTREMITY W/O CONTRAST MATERIAL Kimberlee Kennedy PA-C [address] [place] [address] [place] [address] Referral ID Status Reason Start Date Expiration Date Visits Requested Visits Authorized [id number] Authorized Auto-Generat ed Referral 02/18/2024 04/03/2024 1 1 Specialty Diagnoses / Procedures Referred By Contac t Referred To Contact General Surgery Diagnoses Screening for colon cancer Procedures CONSULT TO GENERAL SURGERY OFFICE/OUTPATIENT NEW HIGH MDM 60 MINUTES Nga Ferrer, TEACHER TUTOR.CLINICAL WRITER [address] [place] [address] Referral ID Status Reason Start Date Expiration Date Visits Requested Visits Authorized [id number] Authorized PCP Requested Referral 01/12/2024 01/10/2025 1 1 Specialty Diagnoses / Procedures Referred By Contac t Referred To Contact CT IMAGING Diagnoses Lung nodules Procedures CT CHEST WO IVCON DIAGNOSTIC COMPUTED TOMOGRAPHY THORAX W/O CNTRST Kiley Harris, TEACHER TUTOR.CLINICAL WRITER [address] [place] [address] [place] [address] Referral ID Status Reason Start Date Expiration Date Visits Requested Visits Authorized [id number] Pending Review Auto-Generat ed Referral 11/09/2023 12/08/2024 1 1 Specialty Diagnoses / Procedures Referred By Contac t Referred To Contact [facility] Diagnoses Status post reverse total replacement of right shoulder Procedures CONSULT TO PHYSICAL THERAPY PHYSICAL THERAPY EVALUATION HIGH COMPLEX 45 MINS Kimberlee Kennedy PA-C [address] [place] [address] [facility] [place] [address] [place] [address] Referral ID Status Reason Start Date Expiration Date Visits Requested Visits Authorized [id number] Pending Review Auto-Generat ed Referral 06/17/2023 06/16/2024 1 1 Specialty Diagnoses / Procedures Referred By Contac t Referred To Contact [facility] [place] Diagnoses Narrowing of lumbar intervertebral disc space Procedures [facility] OFFICE/OUTPATIENT [facility] MDM 60-74 MINUTES Nga Ferrer, TEACHER TUTOR.CLINICAL WRITER [address] [place] [address] Referral ID Status Reason Start Date Expiration Date Visits Requested Visits Authorized [id number] Authorized PCP Requested Referral 05/13/2023 05/12/2024 1 1 Specialty Diagnoses / Procedures Referred By Contac t Referred To Contact [facility] Diagnoses Balance problem Procedures CONSULT TO PHYSICAL THERAPY PHYSICAL THERAPY EVALUATION HIGH COMPLEX 45 MINS Nga Ferrer, TEACHER TUTOR.CLINICAL WRITER [address] [place] [address] [facility] [place] [address] Referral ID Status Reason Start Date Expiration Date Visits Requested Visits Authorized [id number] Authorized Auto-Generat ed Referral 06/10/2022 09/12/2022 1 1 Chief Complaint and Reason for Visit Chief Complaint sob Additional Source Comments INFORMATION SOURCE (unrecogn ized section and content) DATE CREATED AUTHOR 03/09/2018 [facility] DATE CREATED AUTHOR AUTHOR'S ORGANIZ ATION 12/04/2022 [facility] DATE CREATED AUTHOR AUTHOR'S ORGANIZ ATION 08/14/2023 [facility] DATE CREATED AUTHOR AUTHOR'S ORGANIZ ATION 04/07/2024 [facility] DATE CREATED AUTHOR AUTHOR'S ORGANIZ ATION 05/19/2024 [facility] ([place]) DATE CREATED AUTHOR AUTHOR'S ORGANIZ ATION 06/29/2024 [facility] DATE CREATED AUTHOR AUTHOR'S ORGANIZ ATION 09/21/2024 [facility] DATE CREATED AUTHOR AUTHOR'S ORGANIZ ATION 04/02/2025 [facility] Source Comments (unrecognize d section and content) In the event this informatio n is protected by the Federal Confidentiality of Alcohol and Drug Abuse Patient Records regulations: The Federal rules restrict any use of the information to criminally investigate or prosecute any alcohol or drug abuse patient.[facility] the event this information is protected by the Federal Confidentiality of Alcohol and Drug Abuse Patient Records regulations: The Federal rules restrict any use of the information to criminally investigate or prosecute any alcohol or drug abuse patient.[facility] the event this information is protected by the Federal Confidentiality of Alcohol and Drug Abuse Patient Records regulations: The Federal rules restrict any use of the information to criminally investigate or prosecute any alcohol or drug abuse patient.[facility] the event this information is protected by the Federal Confidentiality of Alcohol and Drug Abuse Patient Records regulations: The Federal rules restrict any use of the information to criminally investigate or prosecute any alcohol or drug abuse patient.[facility] the event this information is protected by the Federal Confidentiality of Alcohol and Drug Abuse Patient Records regulations: The Federal rules restrict any use of the information to criminally investigate or prosecute any alcohol or drug abuse patient.[facility] the event this information is protected by the Federal Confidentiality of Alcohol and Drug Abuse Patient Records regulations: The Federal rules restrict any use of the information to criminally investigate or prosecute any alcohol or drug abuse patient.[facility] the event this information is protected by the Federal Confidentiality of Alcohol and Drug Abuse Patient Records regulations: The Federal rules restrict any use of the information to criminally investigate or prosecute any alcohol or drug abuse patient.[facility] the event this information is protected by the Federal Confidentiality of Alcohol and Drug Abuse Patient Records regulations: The Federal rules restrict any use of the information to criminally investigate or prosecute any alcohol or drug abuse patient.[facility] the event this information is protected by the Federal Confidentiality of Alcohol and Drug Abuse Patient Records regulations: The Federal rules restrict any use of the information to criminally investigate or prosecute any alcohol or drug abuse patient.[facility] the event this information is protected by the Federal Confidentiality of Alcohol and Drug Abuse Patient Records regulations: The Federal rules restrict any use of the information to criminally investigate or prosecute any alcohol or drug abuse patient.[facility] the event this information is protected by the Federal Confidentiality of Alcohol and Drug Abuse Patient Records regulations: The Federal rules restrict any use of the information to criminally investigate or prosecute any alcohol or drug abuse patient.[facility] the event this information is protected by the Federal Confidentiality of Alcohol and Drug Abuse Patient Records regulations: The Federal rules restrict any use of the information to criminally investigate or prosecute any alcohol or drug abuse patient.[facility] the event this information is protected by the Federal Confidentiality of Alcohol and Drug Abuse Patient Records regulations: The Federal rules restrict any use of the information to criminally investigate or prosecute any alcohol or drug abuse patient.[facility] the event this information is protected by the Federal Confidentiality of Alcohol and Drug Abuse Patient Records regulations: The Federal rules restrict any use of the information to criminally investigate or prosecute any alcohol or drug abuse patient.[facility] the event this information is protected by the Federal Confidentiality of Alcohol and Drug Abuse Patient Records regulations: The Federal rules restrict any use of the information to criminally investigate or prosecute any alcohol or drug abuse patient.[facility] the event this information is protected by the Federal Confidentiality of Alcohol and Drug Abuse Patient Records regulations: The Federal rules restrict any use of the information to criminally investigate or prosecute any alcohol or drug abuse patient.[facility] the event this information is protected by the Federal Confidentiality of Alcohol and Drug Abuse Patient Records regulations: The Federal rules restrict any use of the information to criminally investigate or prosecute any alcohol or drug abuse patient.[facility] the event this information is protected by the Federal Confidentiality of Alcohol and Drug Abuse Patient Records regulations: The Federal rules restrict any use of the information to criminally investigate or prosecute any alcohol or drug abuse patient.[facility] the event this information is protected by the Federal Confidentiality of Alcohol and Drug Abuse Patient Records regulations: The Federal rules restrict any use of the information to criminally investigate or prosecute any alcohol or drug abuse patient.[facility]In the event this information is protected by the Federal Confidentiality of Alcohol and Drug Abuse Patient Records regulations: The Federal rules restrict any use of the information to criminally investigate or prosecute any alcohol or drug abuse patient.[facility]In the event this information is protected by the Federal Confidentiality of Alcohol and Drug Abuse Patient Records regulations: The Federal rules restrict any use of the information to criminally investigate or prosecute any alcohol or drug abuse patient.[facility]In the event this information is protected by the Federal Confidentiality of Alcohol and Drug Abuse Patient Records regulations: The Federal rules restrict any use of the information to criminally investigate or prosecute any alcohol or drug abuse patient.[facility]In the event this information is protected by the Federal Confidentiality of Alcohol and Drug Abuse Patient Records regulations: The Federal rules restrict any use of the information to criminally investigate or prosecute any alcohol or drug abuse patient.[facility]In the event this information is protected by the Federal Confidentiality of Alcohol and Drug Abuse Patient Records regulations: The Federal rules restrict any use of the information to criminally investigate or prosecute any alcohol or drug abuse patient.[facility]In the event this information is protected by the Federal Confidentiality of Alcohol and Drug Abuse Patient Records regulations: The Federal rules restrict any use of the information to criminally investigate or prosecute any alcohol or drug abuse patient.[facility]In the event this information is protected by the Federal Confidentiality of Alcohol and Drug Abuse Patient Records regulations: The Federal rules restrict any use of the information to criminally investigate or prosecute any alcohol or drug abuse patient.[facility]In the event this information is protected by the Federal Confidentiality of Alcohol and Drug Abuse Patient Records regulations: The Federal rules restrict any use of the information to criminally investigate or prosecute any alcohol or drug abuse patient.[facility] HospitalIn the event this information is protected by the Federal Confidentiality of Alcohol and Drug Abuse Patient Records regulations: The Federal rules restrict any use of the information to criminally investigate or prosecute any alcohol or drug abuse patient.[facility]In the event this information is protected by the Federal Confidentiality of Alcohol and Drug Abuse Patient Records regulations: The Federal rules restrict any use of the information to criminally investigate or prosecute any alcohol or drug abuse patient.[facility]In the event this information is protected by the Federal Confidentiality of Alcohol and Drug Abuse Patient Records regulations: The Federal rules restrict any use of the information to criminally investigate or prosecute any alcohol or drug abuse patient.[facility]In the event this information is protected by the Federal Confidentiality of Alcohol and Drug Abuse Patient Records regulations: The Federal rules restrict any use of the information to criminally investigate or prosecute any alcohol or drug abuse patient.[facility]In the event this information is protected by the Federal Confidentiality of Alcohol and Drug Abuse Patient Records regulations: The Federal rules restrict any use of the information to criminally investigate or prosecute any alcohol or drug abuse patient.[facility] HospitalIn the event this information is protected by the Federal Confidentiality of Alcohol and Drug Abuse Patient Records regulations: The Federal rules restrict any use of the information to criminally investigate or prosecute any alcohol or drug abuse patient.[facility] HospitalIn the event this information is protected by the Federal Confidentiality of Alcohol and Drug Abuse Patient Records regulations: The Federal rules restrict any use of the information to criminally investigate or prosecute any alcohol or drug abuse patient.[facility] HospitalIn the event this information is protected by the Federal Confidentiality of Alcohol and Drug Abuse Patient Records regulations: The Federal rules restrict any use of the information to criminally investigate or prosecute any alcohol or drug abuse patient.[facility] HospitalIn the event this information is protected by the Federal Confidentiality of Alcohol and Drug Abuse Patient Records regulations: The Federal rules restrict any use of the information to criminally investigate or prosecute any alcohol or drug abuse patient.[facility] HospitalIn the event this information is protected by the Federal Confidentiality of Alcohol and Drug Abuse Patient Records regulations: The Federal rules restrict any use of the information to criminally investigate or prosecute any alcohol or drug abuse patient.[facility]In the event this information is protected by the Federal Confidentiality of Alcohol and Drug Abuse Patient Records regulations: The Federal rules restrict any use of the information to criminally investigate or prosecute any alcohol or drug abuse patient.[facility]In the event this information is protected by the Federal Confidentiality of Alcohol and Drug Abuse Patient Records regulations: The Federal rules restrict any use of the information to criminally investigate or prosecute any alcohol or drug abuse patient.[facility] HospitalIn the event this information is protected by the Federal Confidentiality of Alcohol and Drug Abuse Patient Records regulations: The Federal rules restrict any use of the information to criminally investigate or prosecute any alcohol or drug abuse patient.[facility] HospitalIn the event this information is protected by the Federal Confidentiality of Alcohol and Drug Abuse Patient Records regulations: The Federal rules restrict any use of the information to criminally investigate or prosecute any alcohol or drug abuse patient.[facility]In the event this information is protected by the Federal Confidentiality of Alcohol and Drug Abuse Patient Records regulations: The Federal rules restrict any use of the information to criminally investigate or prosecute any alcohol or drug abuse patient.[facility] HospitalIn the event this information is protected by the Federal Confidentiality of Alcohol and Drug Abuse Patient Records regulations: The Federal rules restrict any use of the information to criminally investigate or prosecute any alcohol or drug abuse patient.[facility] HospitalIn the event this information is protected by the Federal Confidentiality of Alcohol and Drug Abuse Patient Records regulations: The Federal rules restrict any use of the information to criminally investigate or prosecute any alcohol or drug abuse patient.[facility] HospitalIn the event this information is protected by the Federal Confidentiality of Alcohol and Drug Abuse Patient Records regulations: The Federal rules restrict any use of the information to criminally investigate or prosecute any alcohol or drug abuse patient.[facility] HospitalIn the event this information is protected by the Federal Confidentiality of Alcohol and Drug Abuse Patient Records regulations: The Federal rules restrict any use of the information to criminally investigate or prosecute any alcohol or drug abuse patient.[facility] HospitalIn the event this information is protected by the Federal Confidentiality of Alcohol and Drug Abuse Patient Records regulations: The Federal rules restrict any use of the information to criminally investigate or prosecute any alcohol or drug abuse patient.[facility] HospitalIn the event this information is protected by the Federal Confidentiality of Alcohol and Drug Abuse Patient Records regulations: The Federal rules restrict any use of the information to criminally investigate or prosecute any alcohol or drug abuse patient.[facility] HospitalIn the event this information is protected by the Federal Confidentiality of Alcohol and Drug Abuse Patient Records regulations: The Federal rules restrict any use of the information to criminally investigate or prosecute any alcohol or drug abuse patient.[facility] HospitalIn the event this information is protected by the Federal Confidentiality of Alcohol and Drug Abuse Patient Records regulations: The Federal rules restrict any use of the information to criminally investigate or prosecute any alcohol or drug abuse patient.[facility]In the event this information is protected by the Federal Confidentiality of Alcohol and Drug Abuse Patient Records regulations: The Federal rules restrict any use of the information to criminally investigate or prosecute any alcohol or drug abuse patient.[facility]In the event this information is protected by the Federal Confidentiality of Alcohol and Drug Abuse Patient Records regulations: The Federal rules restrict any use of the information to criminally investigate or prosecute any alcohol or drug abuse patient.[facility]In the event this information is protected by the Federal Confidentiality of Alcohol and Drug Abuse Patient Records regulations: The Federal rules restrict any use of the information to criminally investigate or prosecute any alcohol or drug abuse patient.[facility]In the event this information is protected by the Federal Confidentiality of Alcohol and Drug Abuse Patient Records regulations: The Federal rules restrict any use of the information to criminally investigate or prosecute any alcohol or drug abuse patient.[facility]In the event this information is protected by the Federal Confidentiality of Alcohol and Drug Abuse Patient Records regulations: The Federal rules restrict any use of the information to criminally investigate or prosecute any alcohol or drug abuse patient.[facility]In the event this information is protected by the Federal Confidentiality of Alcohol and Drug Abuse Patient Records regulations: The Federal rules restrict any use of the information to criminally investigate or prosecute any alcohol or drug abuse patient.[facility]In the event this information is protected by the Federal Confidentiality of Alcohol and Drug Abuse Patient Records regulations: The Federal rules restrict any use of the information to criminally investigate or prosecute any alcohol or drug abuse patient.[facility]In the event this information is protected by the Federal Confidentiality of Alcohol and Drug Abuse Patient Records regulations: The Federal rules restrict any use of the information to criminally investigate or prosecute any alcohol or drug abuse patient.[facility]In the event this information is protected by the Federal Confidentiality of Alcohol and Drug Abuse Patient Records regulations: The Federal rules restrict any use of the information to criminally investigate or prosecute any alcohol or drug abuse patient.[facility]In the event this information is protected by the Federal Confidentiality of Alcohol and Drug Abuse Patient Records regulations: The Federal rules restrict any use of the information to criminally investigate or prosecute any alcohol or drug abuse patient.[facility] HospitalIn the event this information is protected by the Federal Confidentiality of Alcohol and Drug Abuse Patient Records regulations: The Federal rules restrict any use of the information to criminally investigate or prosecute any alcohol or drug abuse patient.[facility] HospitalIn the event this information is protected by the Federal Confidentiality of Alcohol and Drug Abuse Patient Records regulations: The Federal rules restrict any use of the information to criminally investigate or prosecute any alcohol or drug abuse patient.[facility]In the event this information is protected by the Federal Confidentiality of Alcohol and Drug Abuse Patient Records regulations: The Federal rules restrict any use of the information to criminally investigate or prosecute any alcohol or drug abuse patient.[facility] HospitalIn the event this information is protected by the Federal Confidentiality of Alcohol and Drug Abuse Patient Records regulations: The Federal rules restrict any use of the information to criminally investigate or prosecute any alcohol or drug abuse patient.[facility] HospitalIn the event this information is protected by the Federal Confidentiality of Alcohol and Drug Abuse Patient Records regulations: The Federal rules restrict any use of the information to criminally investigate or prosecute any alcohol or drug abuse patient.[facility] HospitalIn the event this information is protected by the Federal Confidentiality of Alcohol and Drug Abuse Patient Records regulations: The Federal rules restrict any use of the information to criminally investigate or prosecute any alcohol or drug abuse patient.[facility]In the event this information is protected by the Federal Confidentiality of Alcohol and Drug Abuse Patient Records regulations: The Federal rules restrict any use of the information to criminally investigate or prosecute any alcohol or drug abuse patient.[facility]In the event this information is protected by the Federal Confidentiality of Alcohol and Drug Abuse Patient Records regulations: The Federal rules restrict any use of the information to criminally investigate or prosecute any alcohol or drug abuse patient.[facility] HospitalIn the event this information is protected by the Federal Confidentiality of Alcohol and Drug Abuse Patient Records regulations: The Federal rules restrict any use of the information to criminally investigate or prosecute any alcohol or drug abuse patient.[facility] HospitalIn the event this information is protected by the Federal Confidentiality of Alcohol and Drug Abuse Patient Records regulations: The Federal rules restrict any use of the information to criminally investigate or prosecute any alcohol or drug abuse patient.[facility] HospitalIn the event this information is protected by the Federal Confidentiality of Alcohol and Drug Abuse Patient Records regulations: The Federal rules restrict any use of the information to criminally investigate or prosecute any alcohol or drug abuse patient.[facility]In the event this information is protected by the Federal Confidentiality of Alcohol and Drug Abuse Patient Records regulations: The Federal rules restrict any use of the information to criminally investigate or prosecute any alcohol or drug abuse patient.[facility]In the event this information is protected by the Federal Confidentiality of Alcohol and Drug Abuse Patient Records regulations: The Federal rules restrict any use of the information to criminally investigate or prosecute any alcohol or drug abuse patient.[facility]In the event this information is protected by the Federal Confidentiality of Alcohol and Drug Abuse Patient Records regulations: The Federal rules restrict any use of the information to criminally investigate or prosecute any alcohol or drug abuse patient.[facility]In the event this information is protected by the Federal Confidentiality of Alcohol and Drug Abuse Patient Records regulations: The Federal rules restrict any use of the information to criminally investigate or prosecute any alcohol or drug abuse patient.[facility]In the event this information is protected by the Federal Confidentiality of Alcohol and Drug Abuse Patient Records regulations: The Federal rules restrict any use of the information to criminally investigate or prosecute any alcohol or drug abuse patient.[facility] HospitalIn the event this information is protected by the Federal Confidentiality of Alcohol and Drug Abuse Patient Records regulations: The Federal rules restrict any use of the information to criminally investigate or prosecute any alcohol or drug abuse patient.[facility]In the event this information is protected by the Federal Confidentiality of Alcohol and Drug Abuse Patient Records regulations: The Federal rules restrict any use of the information to criminally investigate or prosecute any alcohol or drug abuse patient.[facility]In the event this information is protected by the Federal Confidentiality of Alcohol and Drug Abuse Patient Records regulations: The Federal rules restrict any use of the information to criminally investigate or prosecute any alcohol or drug abuse patient.[facility]In the event this information is protected by the Federal Confidentiality of Alcohol and Drug Abuse Patient Records regulations: The Federal rules restrict any use of the information to criminally investigate or prosecute any alcohol or drug abuse patient.[facility]In the event this information is protected by the Federal Confidentiality of Alcohol and Drug Abuse Patient Records regulations: The Federal rules restrict any use of the information to criminally investigate or prosecute any alcohol or drug abuse patient.[facility]In the event this information is protected by the Federal Confidentiality of Alcohol and Drug Abuse Patient Records regulations: The Federal rules restrict any use of the information to criminally investigate or prosecute any alcohol or drug abuse patient.[facility]In the event this information is protected by the Federal Confidentiality of Alcohol and Drug Abuse Patient Records regulations: The Federal rules restrict any use of the information to criminally investigate or prosecute any alcohol or drug abuse patient.[facility]In the event this information is protected by the Federal Confidentiality of Alcohol and Drug Abuse Patient Records regulations: The Federal rules restrict any use of the information to criminally investigate or prosecute any alcohol or drug abuse patient.[facility]In the event this information is protected by the Federal Confidentiality of Alcohol and Drug Abuse Patient Records regulations: The Federal rules restrict any use of the information to criminally investigate or prosecute any alcohol or drug abuse patient.[facility]In the event this information is protected by the Federal Confidentiality of Alcohol and Drug Abuse Patient Records regulations: The Federal rules restrict any use of the information to criminally investigate or prosecute any alcohol or drug abuse patient.[facility]In the event this information is protected by the Federal Confidentiality of Alcohol and Drug Abuse Patient Records regulations: The Federal rules restrict any use of the information to criminally investigate or prosecute any alcohol or drug abuse patient.[facility]In the event this information is protected by the Federal Confidentiality of Alcohol and Drug Abuse Patient Records regulations: The Federal rules restrict any use of the information to criminally investigate or prosecute any alcohol or drug abuse patient.[facility]In the event this information is protected by the Federal Confidentiality of Alcohol and Drug Abuse Patient Records regulations: The Federal rules restrict any use of the information to criminally investigate or prosecute any alcohol or drug abuse patient.[facility]In the event this information is protected by the Federal Confidentiality of Alcohol and Drug Abuse Patient Records regulations: The Federal rules restrict any use of the information to criminally investigate or prosecute any alcohol or drug abuse patient.[facility]In the event this information is protected by the Federal Confidentiality of Alcohol and Drug Abuse Patient Records regulations: The Federal rules restrict any use of the information to criminally investigate or prosecute any alcohol or drug abuse patient.[facility]In the event this information is protected by the Federal Confidentiality of Alcohol and Drug Abuse Patient Records regulations: The Federal rules restrict any use of the information to criminally investigate or prosecute any alcohol or drug abuse patient.[facility]In the event this information is protected by the Federal Confidentiality of Alcohol and Drug Abuse Patient Records regulations: The Federal rules restrict any use of the information to criminally investigate or prosecute any alcohol or drug abuse patient.[facility]In the event this information is protected by the Federal Confidentiality of Alcohol and Drug Abuse Patient Records regulations: The Federal rules restrict any use of the information to criminally investigate or prosecute any alcohol or drug abuse patient.[facility]In the event this information is protected by the Federal Confidentiality of Alcohol and Drug Abuse Patient Records regulations: The Federal rules restrict any use of the information to criminally investigate or prosecute any alcohol or drug abuse patient.[facility]In the event this information is protected by the Federal Confidentiality of Alcohol and Drug Abuse Patient Records regulations: The Federal rules restrict any use of the information to criminally investigate or prosecute any alcohol or drug abuse patient.[facility]In the event this information is protected by the Federal Confidentiality of Alcohol and Drug Abuse Patient Records regulations: The Federal rules restrict any use of the information to criminally investigate or prosecute any alcohol or drug abuse patient.[facility]In the event this information is protected by the Federal Confidentiality of Alcohol and Drug Abuse Patient Records regulations: The Federal rules restrict any use of the information to criminally investigate or prosecute any alcohol or drug abuse patient.[facility]In the event this information is protected by the Federal Confidentiality of Alcohol and Drug Abuse Patient Records regulations: The Federal rules restrict any use of the information to criminally investigate or prosecute any alcohol or drug abuse patient.[facility] HospitalIn the event this information is protected by the Federal Confidentiality of Alcohol and Drug Abuse Patient Records regulations: The Federal rules restrict any use of the information to criminally investigate or prosecute any alcohol or drug abuse patient.[facility] HospitalIn the event this information is protected by the Federal Confidentiality of Alcohol and Drug Abuse Patient Records regulations: The Federal rules restrict any use of the information to criminally investigate or prosecute any alcohol or drug abuse patient.[facility] HospitalIn the event this information is protected by the Federal Confidentiality of Alcohol and Drug Abuse Patient Records regulations: The Federal rules restrict any use of the information to criminally investigate or prosecute any alcohol or drug abuse patient.[facility] HospitalIn the event this information is protected by the Federal Confidentiality of Alcohol and Drug Abuse Patient Records regulations: The Federal rules restrict any use of the information to criminally investigate or prosecute any alcohol or drug abuse patient.[facility] HospitalIn the event this information is protected by the Federal Confidentiality of Alcohol and Drug Abuse Patient Records regulations: The Federal rules restrict any use of the information to criminally investigate or prosecute any alcohol or drug abuse patient.[facility] HospitalIn the event this information is protected by the Federal Confidentiality of Alcohol and Drug Abuse Patient Records regulations: The Federal rules restrict any use of the information to criminally investigate or prosecute any alcohol or drug abuse patient.[facility] HospitalIn the event this information is protected by the Federal Confidentiality of Alcohol and Drug Abuse Patient Records regulations: The Federal rules restrict any use of the information to criminally investigate or prosecute any alcohol or drug abuse patient.[facility] HospitalIn the event this information is protected by the Federal Confidentiality of Alcohol and Drug Abuse Patient Records regulations: The Federal rules restrict any use of the information to criminally investigate or prosecute any alcohol or drug abuse patient.[facility] HospitalIn the event this information is protected by the Federal Confidentiality of Alcohol and Drug Abuse Patient Records regulations: The Federal rules restrict any use of the information to criminally investigate or prosecute any alcohol or drug abuse patient.[facility] HospitalIn the event this information is protected by the Federal Confidentiality of Alcohol and Drug Abuse Patient Records regulations: The Federal rules restrict any use of the information to criminally investigate or prosecute any alcohol or drug abuse patient.[facility] HospitalIn the event this information is protected by the Federal Confidentiality of Alcohol and Drug Abuse Patient Records regulations: The Federal rules restrict any use of the information to criminally investigate or prosecute any alcohol or drug abuse patient.[facility] HospitalIn the event this information is protected by the Federal Confidentiality of Alcohol and Drug Abuse Patient Records regulations: The Federal rules restrict any use of the information to criminally investigate or prosecute any alcohol or drug abuse patient.[facility] HospitalIn the event this information is protected by the Federal Confidentiality of Alcohol and Drug Abuse Patient Records regulations: The Federal rules restrict any use of the information to criminally investigate or prosecute any alcohol or drug abuse patient.[facility] HospitalIn the event this information is protected by the Federal Confidentiality of Alcohol and Drug Abuse Patient Records regulations: The Federal rules restrict any use of the information to criminally investigate or prosecute any alcohol or drug abuse patient.[facility] HospitalIn the event this information is protected by the Federal Confidentiality of Alcohol and Drug Abuse Patient Records regulations: The Federal rules restrict any use of the information to criminally investigate or prosecute any alcohol or drug abuse patient.[facility] HospitalIn the event this information is protected by the Federal Confidentiality of Alcohol and Drug Abuse Patient Records regulations: The Federal rules restrict any use of the information to criminally investigate or prosecute any alcohol or drug abuse patient.[facility] HospitalIn the event this information is protected by the Federal Confidentiality of Alcohol and Drug Abuse Patient Records regulations: The Federal rules restrict any use of the information to criminally investigate or prosecute any alcohol or drug abuse patient.[facility] HospitalIn the event this information is protected by the Federal Confidentiality of Alcohol and Drug Abuse Patient Records regulations: The Federal rules restrict any use of the information to criminally investigate or prosecute any alcohol or drug abuse patient.[facility] HospitalIn the event this information is protected by the Federal Confidentiality of Alcohol and Drug Abuse Patient Records regulations: The Federal rules restrict any use of the information to criminally investigate or prosecute any alcohol or drug abuse patient.[facility] HospitalIn the event this information is protected by the Federal Confidentiality of Alcohol and Drug Abuse Patient Records regulations: The Federal rules restrict any use of the information to criminally investigate or prosecute any alcohol or drug abuse patient.[facility] HospitalIn the event this information is protected by the Federal Confidentiality of Alcohol and Drug Abuse Patient Records regulations: The Federal rules restrict any use of the information to criminally investigate or prosecute any alcohol or drug abuse patient.[facility] HospitalIn the event this information is protected by the Federal Confidentiality of Alcohol and Drug Abuse Patient Records regulations: The Federal rules restrict any use of the information to criminally investigate or prosecute any alcohol or drug abuse patient.[facility] HospitalIn the event this information is protected by the Federal Confidentiality of Alcohol and Drug Abuse Patient Records regulations: The Federal rules restrict any use of the information to criminally investigate or prosecute any alcohol or drug abuse patient.[facility] HospitalIn the event this information is protected by the Federal Confidentiality of Alcohol and Drug Abuse Patient Records regulations: The Federal rules restrict any use of the information to criminally investigate or prosecute any alcohol or drug abuse patient.[facility] HospitalIn the event this information is protected by the Federal Confidentiality of Alcohol and Drug Abuse Patient Records regulations: The Federal rules restrict any use of the information to criminally investigate or prosecute any alcohol or drug abuse patient.[facility] HospitalIn the event this information is protected by the Federal Confidentiality of Alcohol and Drug Abuse Patient Records regulations: The Federal rules restrict any use of the information to criminally investigate or prosecute any alcohol or drug abuse patient.[facility] HospitalIn the event this information is protected by the Federal Confidentiality of Alcohol and Drug Abuse Patient Records regulations: The Federal rules restrict any use of the information to criminally investigate or prosecute any alcohol or drug abuse patient.[facility] HospitalIn the event this information is protected by the Federal Confidentiality of Alcohol and Drug Abuse Patient Records regulations: The Federal rules restrict any use of the information to criminally investigate or prosecute any alcohol or drug abuse patient.[facility] Care Teams (unrecognized sec tion and content) Evaluation Advisor Relationship Specialty Start Date End Date Teresa Aguilar MD [address] [place] [address] PCP - General 12/22/06 Evaluation Advisor Relationship Specialty Start Date End Date Teresa Aguilar MD [address] [place] [address] PCP - General 12/22/06 Evaluation Advisor Relationship Specialty Start Date End Date Teresa Aguilar MD [address] [place] [address] PCP - General 12/22/06 Evaluation Advisor Relationship Specialty Start Date End Date Teresa Aguilar MD [facility] [place] [address] PCP - General 12/22/06 Evaluation Advisor Relationship Specialty Start Date End Date Teresa Aguilar MD [address] [place] [address] PCP - General 12/22/06 Evaluation Advisor Relationship Specialty Start Date End Date Teresa Aguilar MD [address] [place] [address] PCP - General 12/22/06 Evaluation Advisor Relationship Specialty Start Date End Date Teresa Aguilar MD [address] [place] [address] PCP - General 12/22/06 Evaluation Advisor Relationship Specialty Start Date End Date Teresa Aguilar MD [address] [place] [address] PCP - General 12/22/06 Evaluation Advisor Relationship Specialty Start Date End Date Teresa Aguilar MD [address] [place] [address] PCP - General 12/22/06 Team Status: Active Member Role Status Dates Dr. Teresa Aguilar MD Family Provider Active Dr. Teresa Aguilar MD Primary Care Provider Active Team Status: Inactive Member Role Status Dates Dr. Teresa Aguilar MD Primary Care Provider Active Dr. Sy Stewart , Emergency Provider Active Evaluation Advisor Relationship Specialty Start Date End Date Teresa Aguilar MD [address] [place] [address] PCP - General 12/22/06 Evaluation Advisor Relationship Specialty Start Date End Date Teresa Aguilar MD [address] [place] [address] PCP - General 12/22/06 Evaluation Advisor Relationship Specialty Start Date End Date Teresa Aguialr MD [address] [place] [address] PCP - General 12/22/06 Evaluation Advisor Relationship Specialty Start Date End Date Teresa Aguilar MD [address] [place] [address] PCP - General 12/22/06 Evaluation Advisor Relationship Specialty Start Date End Date Teresa Aguilar MD [address] [place] [address] PCP - General 12/22/06 Evaluation Advisor Relationship Specialty Start Date End Date Teresa Aguilar MD [address] [place] [address] PCP - General 12/22/06 Evaluation Advisor Relationship Specialty Start Date End Date Teresa Aguilar MD [address] [place] [address] PCP - General 12/22/06 Evaluation Advisor Relationship Specialty Start Date End Date Teresa Aguilar MD [address] [place] [address] PCP - General 12/22/06 Evaluation Advisor Relationship Specialty Start Date End Date Teresa Aguilar MD [address] [place] [address] PCP - General 12/22/06 Evaluation Advisor Relationship Specialty Start Date End Date Teresa Aguilar MD [address] [place] [address] PCP - General 12/22/06 Evaluation Advisor Relationship Specialty Start Date End Date Teresa Aguilar MD [address] [place] [address] PCP - General 12/22/06 Tiki Loo MD [address] [place] [address] Pulmonary and Critical Care Medicine 06/08/23 Evaluation Advisor Relationship Specialty Start Date End Date Teresa Aguilar MD [address] [place] [address] PCP - General 12/22/06 Tiki Loo MD [address] [place] [address] Pulmonary and Critical Care Medicine 06/08/23 Evaluation Advisor Relationship Specialty Start Date End Date Teresa Aguilar MD [address] [place] [address] PCP - General 12/22/06 Tiki Loo MD [address] [place] [address] Pulmonary and Critical Care Medicine 06/08/23 Evaluation Advisor Relationship Specialty Start Date End Date Teresa Aguilar MD [address] [place] [address] PCP - General 12/22/06 Tiki Loo MD [address] [place] [address] Pulmonary and Critical Care Medicine 06/08/23 Evaluation Advisor Relationship Specialty Start Date End Date Teresa Aguilar MD [address] [place] [address] PCP - General 12/22/06 Tiki Loo MD [address] [place] [address] Pulmonary and Critical Care Medicine 06/08/23 Evaluation Advisor Relationship Specialty Start Date End Date Teresa Aguilar MD [address] [place] [address] PCP - General 12/22/06 Tiki Loo MD [address] [place] [address] Pulmonary and Critical Care Medicine 06/08/23 Evaluation Advisor Relationship Specialty Start Date End Date Teresa Aguilar MD [address] [place] [address] PCP - General 12/22/06 Tiki Loo MD [address] [place] [address] Pulmonary and Critical Care Medicine 06/08/23 Evaluation Advisor Relationship Specialty Start Date End Date Teresa Aguilar MD [address] [place] [address] PCP - General 12/22/06 Tiki Loo MD [address] [place] [address] Pulmonary and Critical Care Medicine 06/08/23 Evaluation Advisor Relationship Specialty Start Date End Date Teresa Aguilar MD [address] [place] [address] PCP - General 12/22/06 Tiki Loo MD [address] [place] [address] Pulmonary and Critical Care Medicine 06/08/23 Evaluation Advisor Relationship Specialty Start Date End Date Teresa Aguilar MD [address] [place] [address] PCP - General 12/22/06 Tiki Loo MD [address] [place] [address] Pulmonary and Critical Care Medicine 06/08/23 Evaluation Advisor Relationship Specialty Start Date End Date Teresa Aguilar MD [address] [place] [address] PCP - General 12/22/06 Tiki Loo MD [address] [place] [address] Pulmonary and Critical Care Medicine 06/08/23 Evaluation Advisor Relationship Specialty Start Date End Date Teresa Aguilar MD [address] [place] [address] PCP - General 12/22/06 Tiki Loo MD [address] [place] [address] Pulmonary and Critical Care Medicine 06/08/23 Evaluation Advisor Relationship Specialty Start Date End Date Teresa Aguilar MD [address] [place] [address] PCP - General 12/22/06 Tiki Loo MD [address] [place] [address] Pulmonary and Critical Care Medicine 06/08/23 Stella Enrique, RN Specialty [employer] 08/04/23 09/10/23 Evaluation Advisor Relationship Specialty Start Date End Date Teresa Aguilar MD [address] [place] [address] PCP - General 12/22/06 Tiki Loo MD [address] [place] [address] Pulmonary and Critical Care Medicine 06/08/23 Stella Enrique, RN Specialty [employer] [facility] 08/04/23 09/10/23 Evaluation Advisor Relationship Specialty Start Date End Date Teresa Aguilar MD [address] [place] [address] PCP - General 12/22/06 Tiki Loo MD [address] [place] [address] Pulmonary and Critical Care Medicine 06/08/23 Stella Enrique, RN Specialty [employer] [facility] 08/04/23 09/10/23 Evaluation Advisor Relationship Specialty Start Date End Date Teresa Aguilar MD [address] [place] [address] PCP - General 12/22/06 Tiki Loo MD [address] [place] [address] Pulmonary and Critical Care Medicine 06/08/23 Stella Enrique, ASHLEE Specialty [employer] 08/04/23 09/10/23 Evaluation Advisor Relationship Specialty Start Date End Date Teresa Aguilar MD [address] [facility] [place] [address] PCP - General 12/22/06 Tiki Loo MD [address] [place] [address] Pulmonary and Critical Care Medicine 06/08/23 Evaluation Advisor Relationship Specialty Start Date End Date Teresa Aguilar MD [address] [place] [address] PCP - General 12/22/06 Tiki Loo MD [address] [facility] [address] Pulmonary and Critical Care Medicine 06/08/23 Evaluation Advisor Relationship Specialty Start Date End Date Teresa Aguilar MD [address] [facility] [place] [address] PCP - General 12/22/06 Tiki Loo MD [address] [place] [address] Pulmonary and Critical Care Medicine 06/08/23 Evaluation Advisor Relationship Specialty Start Date End Date Teresa Aguilar MD [address] [facility] [place] [address] PCP - General 12/22/06 Tiki Loo MD [address] [place] [address] Pulmonary and Critical Care Medicine 06/08/23 Evaluation Advisor Relationship Specialty Start Date End Date Teresa Aguilar MD [address] [facility] [place] [address] PCP - General 12/22/06 Tiki Loo MD [address] [place] [address] Pulmonary and Critical Care Medicine 06/08/23 Evaluation Advisor Relationship Specialty Start Date End Date Teresa Aguilar MD [address] [place] [address] PCP - General 12/22/06 Tiki Loo MD [address] [place] [address] Pulmonary and Critical Care Medicine 06/08/23 Evaluation Advisor Relationship Specialty Start Date End Date Teresa Aguilar MD [address] [place] [address] PCP - General 12/22/06 Tiki Loo MD [address] [place] [address] Pulmonary and Critical Care Medicine 06/08/23 Evaluation Advisor Relationship Specialty Start Date End Date Teresa Aguilar MD [address] [place] [address] PCP - General 12/22/06 Tiki Loo MD [address] [place] [address] Pulmonary and Critical Care Medicine 06/08/23 Evaluation Advisor Relationship Specialty Start Date End Date Teresa Aguilar MD [address] [place] [address] PCP - General 12/22/06 Tiki Loo MD [address] [place] [address] Pulmonary and Critical Care Medicine 06/08/23 Evaluation Advisor Relationship Specialty Start Date End Date Teresa Aguilar MD [address] [place] [address] PCP - General 12/22/06 Tiki Loo MD [address] [place] [address] Pulmonary and Critical Care Medicine 06/08/23 Evaluation Advisor Relationship Specialty Start Date End Date Teresa Aguilar MD [address] [place] [address] PCP - General 12/22/06 Tiki Loo MD [address] [place] [address] Pulmonary and Critical Care Medicine 06/08/23 Evaluation Advisor Relationship Specialty Start Date End Date Teresa Aguilar MD [address] [place] [address] PCP - General 12/22/06 Tiki Loo MD [address] [place] [address] Pulmonary and Critical Care Medicine 06/08/23 Evaluation Advisor Relationship Specialty Start Date End Date Teresa Aguilar MD [address] [place] [address] PCP - General 12/22/06 Tiki Loo MD [address] [place] [address] Pulmonary and Critical Care Medicine 06/08/23 Evaluation Advisor Relationship Specialty Start Date End Date Teresa Aguilar MD [address] [place] [address] PCP - General 12/22/06 Tiki Loo MD [address] [place] [address] Pulmonary and Critical Care Medicine 06/08/23 Evaluation Advisor Relationship Specialty Start Date End Date Teersa Aguilar MD [address] [place] [address] PCP - General 12/22/06 Tiki Loo MD [address] [place] [address] Pulmonary and Critical Care Medicine 06/08/23 Evaluation Advisor Relationship Specialty Start Date End Date Teresa Aguilar MD [address] [facility] [place] [address] PCP - General 12/22/06 Tiki Loo MD [address] [place] [address] Pulmonary and Critical Care Medicine 06/08/23 Evaluation Advisor Relationship Specialty Start Date End Date Teresa Aguilar MD [address] [facility] [place] [address] PCP - General 12/22/06 Tiki Loo MD [address] [place] [address] Pulmonary and Critical Care Medicine 06/08/23 Evaluation Advisor Relationship Specialty Start Date End Date Teresa Aguilar MD [address] [facility] [place] [address] PCP - General 12/22/06 Tiki Loo MD [address] [place] [address] Pulmonary and Critical Care Medicine 06/08/23 Evaluation Advisor Relationship Specialty Start Date End Date Teresa Aguilar MD [address] [facility] [place] [address] PCP - General 12/22/06 Tiki Loo MD [address] [place] [address] Pulmonary and Critical Care Medicine 06/08/23 Stella Enrique, ASHLEE Specialty [employer] 08/04/23 09/10/23 Evaluation Advisor Relationship Specialty Start Date End Date Teresa Aguilar MD [address] [facility] [place] [address] PCP - General 12/22/06 Tiki Loo MD [address] [place] [address] Pulmonary and Critical Care Medicine 06/08/23 Evaluation Advisor Relationship Specialty Start Date End Date Teresa Aguilar MD [address] [facility] [place] [address] PCP - General 12/22/06 Tiki Loo MD [address] [place] [address] Pulmonary and Critical Care Medicine 06/08/23 Evaluation Advisor Relationship Specialty Start Date End Date Teresa Aguilar MD [address] [place] [address] PCP - General 12/22/06 Tiki Loo MD [address] [place] [address] Pulmonary and Critical Care Medicine 06/08/23 Evaluation Advisor Relationship Specialty Start Date End Date Teresa Aguilar MD [address] [place] [address] PCP - General 12/22/06 Tiki Loo MD [address] [place] [address] Pulmonary and Critical Care Medicine 06/08/23 Evaluation Advisor Relationship Specialty Start Date End Date Teresa Aguilar MD [address] [place] [address] PCP - General 12/22/06 Tiki Loo MD [address] [place] [address] Pulmonary and Critical Care Medicine 06/08/23 Evaluation Advisor Relationship Specialty Start Date End Date Teresa Aguilar MD [address] [place] [address] PCP - General 12/22/06 Tiki Loo MD [address] [place] [address] Pulmonary and Critical Care Medicine 06/08/23 Evaluation Advisor Relationship Specialty Start Date End Date Teresa Aguilar MD [address] [facility] [place] [address] PCP - General 12/22/06 Tiki Loo MD [address] [place] [address] Pulmonary and Critical Care Medicine 06/08/23 Evaluation Advisor Relationship Specialty Start Date End Date Teresa Aguilar MD [address] [place] [address] PCP - General 12/22/06 Tiki Loo MD [address] [place] [address] Pulmonary and Critical Care Medicine 06/08/23 Nga Ferrer, CARLENE.CLINICAL WRITER [address] [place] [address] [employer] [facility] 08/20/24 Evaluation Advisor Relationship Specialty Start Date End Date Teresa Aguilar MD [address] [place] [address] PCP - General 12/22/06 Tiki Loo MD [address] [place] [address] Pulmonary and Critical Care Medicine 06/08/23 Nga Ferrer APRN.CLINICAL WRITER [address] [place] [address] [facility] 08/20/24 Josh Mirza APRN.CLINICAL WRITER [address] [place] [address] [facility] 08/29/24 Evaluation Advisor Relationship Specialty Start Date End Date Teresa Aguilar MD [address] [place] [address] PCP - General 12/22/06 Tiki Loo MD [address] [place] [address] Pulmonary and Critical Care Medicine 06/08/23 Nga Ferrer APRN.CLINICAL WRITER [address] [place] [address] [facility] 08/20/24 Josh Mirza APRN.CLINICAL WRITER [address] [place] [address] [facility] 08/29/24 Evaluation Advisor Relationship Specialty Start Date End Date Teresa Aguilar MD [address] [place] [address] PCP - General 12/22/06 Tiki Loo MD [address] [place] [address] Pulmonary and Critical Care Medicine 06/08/23 Nga Ferrer APRN.CLINICAL WRITER [address] [place] [address] [facility] 08/20/24 Josh Mirza APRN.CLINICAL WRITER [address] [place] [address] [facility] 08/29/24 Evaluation Advisor Relationship Specialty Start Date End Date Teresa Aguilar MD [address] [place] [address] PCP - General 12/22/06 Tiki Loo MD [address] [place] [address] Pulmonary and Critical Care Medicine 06/08/23 Nga Ferrer APRN.CLINICAL WRITER [address] [place] [address] [facility] 08/20/24 Josh Mirza APRN.CLINICAL WRITER [address] [place] [address] [facility] 08/29/24 Evaluation Advisor Relationship Specialty Start Date End Date Teresa Aguilar MD [address] [place] [address] PCP - General 12/22/06 Tiki Loo MD [address] [place] [address] Pulmonary and Critical Care Medicine 06/08/23 Nga Ferrer APRN.CLINICAL WRITER [address] [facility] [place] [address] [facility] 08/20/24 Josh Mirza APRN.CLINICAL WRITER [address] [place] [address] [facility] 08/29/24 Evaluation Advisor Relationship Specialty Start Date End Date Teresa Aguilar MD [address] [place] [address] PCP - General 12/22/06 Tiki Loo MD [address] [place] [address] Pulmonary and Critical Care Medicine 06/08/23 Nga Ferrer APRN.CLINICAL WRITER [address] [place] [address] [facility] 08/20/24 Josh Mirza APRN.CLINICAL WRITER [address] [place] [address] [facility] 08/29/24 Evaluation Advisor Relationship Specialty Start Date End Date Teresa Aguilar MD [address] [place] [address] PCP - General 12/22/06 Tiki Loo MD [address] [place] [address] Pulmonary and Critical Care Medicine 06/08/23 Nga Ferrer APRN.CLINICAL WRITER [address] [place] [address] [facility] 08/20/24 Josh Mirza APRN.CLINICAL WRITER [address] [place] [address] [facility] 08/29/24 Evaluation Advisor Relationship Specialty Start Date End Date Teresa Aguilar MD [address] [place] [address] PCP - General 12/22/06 Tiki Loo MD [address] [place] [address] Pulmonary and Critical Care Medicine 06/08/23 Nga Ferrer APRN.CLINICAL WRITER [address] [place] [address] [facility] 08/20/24 Josh Mirza APRN.CLINICAL WRITER [address] [place] [address] [facility] 08/29/24 Evaluation Advisor Relationship Specialty Start Date End Date Teresa Aguilar MD [address] [place] [address] PCP - General 12/22/06 Tiki Loo MD [address] [place] [address] Pulmonary and Critical Care Medicine 06/08/23 Nga Ferrer APRN.CLINICAL WRITER [address] [place] [address] [facility]/24 Josh Mirza APRN.CLINICAL WRITER [address] [place] [address] [facility] 08/29/24 Evaluation Advisor Relationship Specialty Start Date End Date Teresa Aguilar MD [address] [place] [address] PCP - General 12/22/06 Tiki Loo MD [address] [place] [address] Pulmonary and Critical Care Medicine 06/08/23 Nga Ferrer APRN.CLINICAL WRITER [address] [place] [address] [facility] 08/20/24 Josh Mirza APRN.CLINICAL WRITER [address] [place] [address] [facility] 08/29/24 Evaluation Advisor Relationship Specialty Start Date End Date Teresa Aguilar MD [address] [place] [address] PCP - General 12/22/06 Tiki Loo MD [address] [place] [address] Pulmonary and Critical Care Medicine 06/08/23 Nga Ferrer APRN.CLINICAL WRITER [address] [place] [address] [facility] 08/20/24 Josh Mirza APRN.CLINICAL WRITER [address] [place] [address] [facility] 08/29/24 Evaluation Advisor Relationship Specialty Start Date End Date Teresa Aguilar MD [address] [place] [address] PCP - General 12/22/06 Tiki Loo MD [address] [place] [address] Pulmonary and Critical Care Medicine 06/08/23 Josh Mirza APRN.CLINICAL WRITER [address] [place] [address] [facility] 08/29/24 Evaluation Advisor Relationship Specialty Start Date End Date Teresa Aguilar MD [address] [place] [address] PCP - General 12/22/06 Tiki Loo MD [address] [place] [address] Pulmonary and Critical Care Medicine 06/08/23 Josh Mirza APRN.CLINICAL WRITER [address] [place] [address] [facility] 08/29/24 Evaluation Advisor Relationship Specialty Start Date End Date Teresa Aguilar MD [address] [place] [address] PCP - General 12/22/06 Tiki Loo MD [address] [place] [address] Pulmonary and Critical Care Medicine 06/08/23 Josh Mirza APRN.CLINICAL WRITER [address] [facility] [place] [address] [facility] 08/29/24 Evaluation Advisor Relationship Specialty Start Date End Date Teresa Aguilar MD [address] [place] [address] PCP - General 12/22/06 Tiki Loo MD [address] [place] [address] Pulmonary and Critical Care Medicine 06/08/23 Josh Mirza APRN.CLINICAL WRITER [address] [place] [address] [facility] 08/29/24 Evaluation Advisor Relationship Specialty Start Date End Date Teresa Aguilar MD [address] [place] [address] PCP - General 12/22/06 Tiki Loo MD [address] [place] [address] Pulmonary and Critical Care Medicine 06/08/23 Josh Mirza APRN.CLINICAL WRITER [address] [place] [address] [facility] 08/29/24 Evaluation Advisor Relationship Specialty Start Date End Date Teresa Aguilar MD [address] [place] [address] PCP - General 12/22/06 Tiki Loo MD [address] [place] [address] Pulmonary and Critical Care Medicine 06/08/23 Josh Mirza APRN.CLINICAL WRITER [address] [place] [address] Solar Panel Installer [facility] 08/29/24 Evaluation Advisor Relationship Specialty Start Date End Date Teresa Aguilar MD [address] [facility] [place] [address] PCP - General 12/22/06 Tiki Loo MD [address] [place] [address] Pulmonary and Critical Care Medicine 06/08/23 Josh Mirza APRN.CLINICAL WRITER [address] [facility] [place] [address] [facility] 08/29/24 Evaluation Advisor Relationship Specialty Start Date End Date Teresa Aguilar MD [address] [facility] [place] [address] PCP - General 12/22/06 Tiki Loo MD [address] [place] [address] Pulmonary and Critical Care Medicine 06/08/23 Josh Mirza APRN.CLINICAL WRITER [address] [facility] [place] [address] [facility] 08/29/24 Evaluation Advisor Relationship Specialty Start Date End Date Teresa Aguilar MD [address] [place] [address] PCP - General 12/22/06 Tiki Loo MD [address] [place] [address] Pulmonary and Critical Care Medicine 06/08/23 Josh Mirza APRN.CLINICAL WRITER [address] [place] [address] [facility] 08/29/24 Evaluation Advisor Relationship Specialty Start Date End Date Teresa Aguilar MD [address] [place] [address] PCP - General 12/22/06 Tiki Loo MD [address] [place] [address] Pulmonary and Critical Care Medicine 06/08/23 Josh Mirza APRN.CLINICAL WRITER [address] [place] [address] [facility] 08/29/24 Evaluation Advisor Relationship Specialty Start Date End Date Teresa Aguilar MD [address] [place] [address] PCP - General 12/22/06 Tiki Loo MD [address] [place] [address] Pulmonary and Critical Care Medicine 06/08/23 Josh Mirza APRN.CLINICAL WRITER [address] [place] [address] [facility] 08/29/24 Evaluation Advisor Relationship Specialty Start Date End Date Teresa Aguilar MD [address] [place] [address] PCP - General 12/22/06 Tiki Loo MD [address] [place], [place] [address]24[address] [phone] Pulmonary and Critical Care Medicine 06/08/23 Josh Mirza APRN.CLINICAL WRITER [address] [place] [address] [facility] 08/29/24 Evaluation Advisor Relationship Specialty Start Date End Date Teresa Aguilar MD [address] [place] [address] PCP - General 12/22/06 Tiki Loo MD [address] [place], [place] [address]94 [phone] Pulmonary and Critical Care Medicine 06/08/23 Josh Mirza APRN.CLINICAL WRITER [address] [place] [address] [facility] 08/29/24 Care Team (unrecognized sect ion and content) Care Team Personnel Name: TERESA AGUILAR MD Member Role: Primary Care Physician Address: Address: [address] [place] [address]- Name: ASHLEE Skinner Position: AO RN Member Role: ED RN Name: TYLER CARRASCO MD Position: ED Physician Member Role: ED Physician Address: Address: [address] [place] [address]- [place] Care Team Related Persons Name: JOSH RAMSEY Name: JOSH RAMSEY Name: ROXY JOSH Name: ROXY JOSH Name: ROXY, JOSH Name: ROXY JOSH Name: ROXY JOSH Name: TUNDE RAMSEYE Name: JOSH RAMSEY Address: Home [address] [address] [place] Name: JOSH RAMSEY Address: Home [address] [place] [address] [place] Name: JOSH RAMSEY Address: Home [address] [place] [address] [place] Name: JOSH RAMSEY Address: Home [address] [place] [address] [place] Name: JOSH RAMSEY Address: Home [address] [place] [address] [place] Name: JOSH RAMSEY Address: Home [address] [place] [address] [place] Name: JOSH RAMSEY Address: Home [address] [place] [address] [place] Name: JOSH RAMSEY Address: Home [address] [place] [address] [place] Name: WILFREDO RAMSEY Address: Home [address] [place] [address] [place] Name: WILFREDO RAMSEY Address: [address] [place] [address] [place] Name: NONE, O Care Team Personnel Name: TERESA AGUILAR MD Member Role: Primary Care Physician Address: Address: [address] [place] [address] Care Team Related Persons Name: JOSH RAMSEY Name: ROXY, JOSH Name: ROXY, JOSH Name: ROXY, JOSH Name: ROXY, JOSH Name: ROXY JOSH Name: ROXY JOSH Name: TUNDE RAMSEYE Name: JOSH RAMSEY Address: Home [address] [place] [address] [place] Name: JOSH RAMSEY Address: Home [address] [place] [address] [place] Name: JOSH RAMSEY Address: Home [address] [facility] [address] [place] [address] [place] Name: JOSH RAMSEY Address: Home [address] [address] [place] Name: JOSH RAMSEY Address: Home [address] [facility] [address] [place] [address] [place] Name: JOSH RAMSEY Address: Home [address] [address] [place] Name: JOSH RAMSEY Address: Home [address] [address] [place] Name: JOSH RAMSEY Address: Home [address] [address] [place] Name: WILFREDO RAMSEY Address: [address] [place] [address] [place] Name: WILFREDO RAMSEY Address: [address] [place] [address] [place] Name: NONE, O Care Team Personnel Name: TERESA AGUILAR MD Member Role: Primary Care Physician Address: Address: [address] [place] [address] Name: ALISSA POWERS MD Position: ED Physician Member Role: ED Physician Address: Address: [address] Care Team Related Persons Name: JOSH RAMSEY Name: JOSH RAMSEY Name: JOSH RAMSEY Name: JOSH RAMSEY Name: JOSH RAMSEY Name: JOSH RAMSEY Name: JOSH RAMSEY Name: JOSH RAMSEY Name: JOSH RAMSEY Address: Home [address] [address] [place] Name: JOSH RAMSEY Address: Home [address] [address] [place] Name: JOSH RAMSEY Address: Home [address] [address] [place] Name: JOSH RAMSEY Address: Home [address] [address] [place] Name: JOSH RAMSEY Address: Home [address] [address] [place] [address] [place] Name: JOSH RAMESY Address: Home [address] [address] [place] Name: JOSH RAMSEY Address: Home [address] [facility] [address] [place] [address] [place] Name: JOSH RAMSEY Address: Home [address] [address] [place] Name: WILFREDO RAMSEY Address: [address] [place] [address] [place] Name: WILFREDO RAMSEY Address: [address] [place] [address] [place] Name: NONE, O Care Team Personnel Name: TERESA AGUILAR MD Member Role: Primary Care Physician Address: Address: [address] [place] [id number] [place] [address] Name: ASHLEE Skinner Position: ROBERT RN Member Role: ED RN Name: RAMÓN MARSH DO Position: ED Physician Member Role: Attending Physician Address: Address: [address] [place] [address] Care Team Related Persons Name: JOSH RAMSEY Name: JOSH RAMSEY Name: JOSH RAMSEY Name: JOSH RAMSEY Name: JOSH RAMSEY Name: JOSH RAMSEY Name: JOSH RAMSEY Name: JOSH RAMSEY Name: JOSH RAMSEY Address: Home [address] [address] [place] Name: JOSH RAMSEY Address: Home [address] [address] [place] Name: JOSH RAMSEY Address: [address] [address] [facility] [address] [place] [address] [place] Name: JOSH RAMSEY Address: Home [address] [address] [place] Name: JOSH RAMSEY Address: Home [address] [address] [place] Name: JOSH RAMSEY Address: Home [address] [place] [address] [place] Name: JOSH RAMSEY Address: Home [address] [place] [address] [place] Name: JOSH RAMSEY Address: Home [address] [place] [address] [place] Name: WILFREDO RAMSEY Address: Home [address] [place] [address] [place] Name: WILFREDO RAMSEY Address: Home [address] [place] [address] [place] Name: NONE, O Reason for Visit (unrecogniz ed section and content) Reason Comments ER F[facility], fell and injured right ankle Reason Comments Fall Reason Comments Acute Visit falls Reason Onset Date Comments Refill Request 09/10/2022 Reason Comments Medication Problem Reason Comments Dizziness Reason Comments Results Labs Reason Comments New Patient Evaluation Specialty Diagnoses / Procedures Referred By Contac t Referred To Contact Neurology Diagnoses Forgetfulness Dizziness Procedures CONSULT TO NEUROLOGY OFFICE/OUTPATIENT [facility] 60-74 MINUTES Nga Ferrer, TEACHER TUTOR.CLINICAL WRITER [address] [place] [address] Referral ID Status Reason Start Date Expiration Date V isits Requested Visits Authorized [id number] Closed PCP Requested Referral 11/12/2022 11/12/2023 1 1 Reason Comments Patient Update Reason Comments Head Injury Reason Comments Patient Question Reason Comments Follow Up ER follow up Reason Comments Results Xray Lumbar/Coccyx Reason Comments Oxygen Re-evaluation to con tinue oxygen therapy to be covered by insurance; currently only at night-needs continuous Reason Comments Orders New O2 order-for con tinuous O2 Reason Comments Orders Reason Comments New Patient COPD Reason Comments New Pain Reason Comments Results Reason Comments Appointment Post-op physical the rapy Reason Comments Future Appointment Reason Comments Low Back Pain Specialty Diagnoses / Procedures Referred By Contac t Referred To Contact [facility] [place] Diagnoses Narrowing of lumbar intervertebral disc space Procedures CONSULT TO [facility] OFFICE/OUTPATIENT [facility] MDM 60-74 MINUTES Nga Ferrer, TEACHER TUTOR.CLINICAL WRITER [address] [place] [address] Referral ID Status Reason Start Date Expiration Date V isits Requested Visits Authorized [id number] Closed PCP Requested Referral 05/13/2023 05/12/2024 1 1 Reason Comments Spirometry Specialty Diagnoses / Procedures Referred By Contac t Referred To Contact [facility] Diagnoses Chronic obstructive pulmonary disease, unspecified COPD type (HCC) Procedures SPIROMETRY WITH DILATOR IF OBSTRUCTED BRNCDILAT RSPSE SPMTRY PRE&POST-BRNCDILAT ADMN Tiki Loo MD [address] [place] [address] [address] Referral ID Status Reason Start Date Expiration Date V isits Requested Visits Authorized [id number] Closed Auto-Generate d Referral 05/31/2023 06/29/2024 1 1 Specialty Diagnoses / Procedures Referred By Contac t Referred To Contact [facility] Diagnoses Chronic obstructive pulmonary disease, unspecified COPD type (HCC) Procedures LUNG DIFFUSION CAPACITY (DLCO) DIFFUSING CAPACITY Tiki Loo MD [address] [place] [address] [address] Referral ID Status Reason Start Date Expiration Date V isits Requested Visits Authorized [id number] Closed Auto-Generate d Referral 05/31/2023 06/29/2024 1 1 Specialty Diagnoses / Procedures Referred By Contac t Referred To [facility] Diagnoses Chronic obstructive pulmonary disease, unspecified COPD type (HCC) Procedures OXIMETRY WITH AMBULATION NONINVASIVE EAR/PULSE OXIMETRY MULTIPLE DETER Tiki Loo MD [address] [place] [address] [address] Referral ID Status Reason Start Date Expiration Date V isits Requested Visits Authorized [id number] Closed Auto-Generate d Referral 05/31/2023 06/29/2024 1 1 Reason Onset Date Comments Established Patient 2 month foll ow up Immunizations 08/02/2023 Flu vaccination Reason Comments PT Eval Specialty Diagnoses / Procedures Referred By Contac t Referred To Contact [facility] Diagnoses Status post reverse total replacement of right shoulder Procedures CONSULT TO PHYSICAL THERAPY PHYSICAL THERAPY EVALUATION HIGH COMPLEX 45 MINS Kimberlee Kennedy PA-C [address] [place] [address] [facility] [place] [address] [place] [address] Referral ID Status Reason Start Date Expiration Date V isits Requested Visits Authorized [id number] Closed Auto-Generate d Referral 09/13/2022 09/12/2023 1 1 Reason Comments Diamond Assorter - 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 [place] [address] Referral ID Status Reason Start Date Expiration Date V isits Requested Visits Authorized [id number] Pending Review 10/01/2023 12/30/2023 1 1 Reason Comments fall-shoulder pain Reason Comments Patient Update Reason Comments Refill Request Reason Comments Established Patient Follow Up Post Op Reason Comments Acute Visit upper respiratory Reason Comments Results Xray Reason Onset Date Comments Refill Request 12/08/2023 Reason Comments productive cough Fever Reason Onset Date Comments PHMA/Care Gap Outreach 01/11/2024 Colon Can cer screening Reason Onset Date Comments Refill Request 01/26/2024 Reason Comments Rx Refills Reason Comments Established Patient LCS Specialty Diagnoses / Procedures Referred By Contac t Referred To Contact CT [facility]AG[facility] Diagnoses Lung nodules Procedures CT CHEST WO IVCON DIAGNOSTIC COMPUTED TOMOGRAPHY THORAX W/O CNTRST Kiley Harris, CARLENE.CLINICAL WRITER [address] [place] [id number] [facility] [place] [address] Referral ID Status Reason Start Date Expiration Date V isits Requested Visits Authorized [id number] Closed Auto-Generate d Referral 12/06/2023 02/21/2024 1 1 Specialty Diagnoses / Procedures Referred By Contac t Referred To Contact CT IMAGING Diagnoses Lung nodules Procedures CT CHEST WO IVCON DIAGNOSTIC COMPUTED TOMOGRAPHY THORAX W/O CNTRST Kiley Harrsi, CARLENE.CLINICAL WRITER [address] [place] [address] [facility] [place] [address] Specialty Diagnoses / Procedures Referred By Contac t Referred To Contact CT IMAGING Diagnoses Status post reverse total replacement of right shoulder Right shoulder pain, unspecified chronicity Procedures CT SHOULDER WO IVCON RIGHT CT UPPER EXTREMITY W/O CONTRAST MATERIAL Kimberlee Kennedy PA-C [address] [place] [address] Ct Imaging [facility] Referral ID Status Reason Start Date Expiration Date V isits Requested Visits Authorized [id number] Closed Auto-Generate d Referral 02/18/2024 04/03/2024 1 1 Reason Onset Date Comments Refill Request 04/18/2024 Reason Comments [facility] ( [place]) Reason Comments Follow Up Reason Comments Forms Reason Comments Orders Specialty Diagnoses / Procedures Referred By Contac t Referred To Contact [facility] Diagnoses Requires oxygen therapy Procedures SIX MINUTE WALK CARDIOPULMONARY EXERCISE STRESS Teresa Aguilar MD [address] [place] [address] [facility] [place] [address] [place] [address] Referral ID Status Reason Start Date Expiration Date V isits Requested Visits Authorized [id number] Closed Auto-Generate d Referral 05/25/2024 06/24/2025 1 1 Reason Onset Date Comments Refill Request 06/06/2024 Reason Comments Acute Visit Memory problems Reason Comments Radiology CT Referral ID Status Reason Start Date Expiration Date V isits Requested Visits Authorized [id number] Closed Auto-Generat ed Referral Patient Cleared - Admin/Chairm an/Director advise to proceed or did not respond 06/29/2024 08/13/2024 1 1 Reason Comments Forms [facility] Reason Onset Date Comments Refill Request 07/28/2024 Reason Onset Date Comments Refill Request 08/07/2024 Reason Onset Date Comments Refill Request 08/25/2024 Reason Onset Date Comments Refill Request 09/18/2024 Reason Comments Forms [employer] [facility] Reason Onset Date Comments Refill Request 10/13/2024 Reason Onset Date Comments Refill Request 11/06/2024 Reason Comments letter Reason Comments Acute Visit discuss getting a le tter for housing due to disablity Reason Comments Question Re: Disability forms /Letter Reason Comments New Patient C/o frequent falls, cognitive changes Specialty Diagnoses / Procedures Referred By Contac t Referred To Contact Neurology Diagnoses Falls Cognitive changes Procedures CONSULT TO NEUROLOGY OFFICE/OUTPATIENT NEW HIGH MDM 60 MINUTES Nga Ferrer APRN.CLINICAL WRITER [address] [place] [address] Phone: tel: fax: Referral ID Status Reason Start Date Expiration Date V isits Requested Visits Authorized [id number] Closed PCP Requested Referral 06/09/2024 06/09/2025 1 1 Reason Onset Date Comments Refill Request 01/02/2025 Reason Comments Forms [employer]/area agency on aging Reason Comments 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 Reason Onset Date Comments Refill Request 01/29/2025 Reason Comments Dizziness X 1 month Reason Onset Date Comments Refill Request 02/27/2025 Reason Comments Follow Up dizziness Reason Comments Medication Request Reason Comments Radiology MRI Specialty Diagnoses / Procedures Referred By Contac t Referred To Contact MR IMAGING Diagnoses Falls Cognitive impairment, mild, so stated Procedures MRI BRAIN W QUANT WO IVCON MRI BRAIN BRAIN STEM W/O CONTRAST MATERIAL Cora Gil PA-C [address] [place] [address] Phone: tel: fax: MR IMAGING [facility] Referral ID Status Reason Start Date Expiration Date V isits Requested Visits Authorized [id number] Closed Auto-Generate d Referral 02/08/2025 03/25/2025 1 1 Reason Onset Date Comments Refill Request 03/05/2025 Reason Onset Date Comments Results 03/06/2025 Reason Comments PT Eval Physical Therapy Specialty Diagnoses / Procedures Referred By Contac t Referred To Contact [facility] Diagnoses Falls Balance disorder Procedures CONSULT TO PHYSICAL THERAPY PHYSICAL THERAPY EVALUATION HIGH COMPLEX 45 MINS THERAPEUTIC EXERCISES RE, EA 15 MIN. Teresa Aguilar MD [address] [place] [address] Phone: tel: fax: [facility] [address] [place] [address] Referral ID Status Reason Start Date Expiration Date Visits Requested Visits Authorized [id number] Authorized Auto-Generat ed Referral 11/11/2024 09/12/2025 99 99 Reason Comments Physical Therapy Specialty Diagnoses / Procedures Referred By Contac t Referred To Contact [facility] Diagnoses Falls Balance disorder Procedures CONSULT TO PHYSICAL THERAPY PHYSICAL THERAPY EVALUATION HIGH COMPLEX 45 MINS THERAPEUTIC EXERCISES RE, EA 15 MIN. Teresa Aguilar MD [address] [place] [address] Phone: tel: fax: [facility] [address] [place] [address] Referral ID Status Reason Start Date Expiration Date Visits Requested Visits Authorized [id number] Authorized Auto-Generat ed Referral 11/11/2024 09/12/2025 99 99 Reason Comments Established Patient COPD Goals (unrecognized section and content) Goals may be documented in a n alternate section FOR RECORDS PERTAINING TO PATIENTS WHO ARE OR HAVE BEEN ENROLLED IN A CHEMICAL DEPENDENCY/SUBSTANCEABUSE PROGRAM, SOME INFORMATION MAY BE OMITTED. This clinical summary was aggregated from multiple sources. Caution should be exercised in using it in the provision of clinical care. This summary normalizes information from multiple sources, and as a consequence, information in this document may materially change the coding, format and clinical context of patient data. In addition, data may be omitted in some cases. CLINICAL DECISIONS SHOULD BE BASED ON THE PRIMARY CLINICAL RECORDS. [employer] provides no warranty or guarantee of the accuracy or completeness of information in this document.
--- NOTE | 2025-04-28 22:01 | ED.VIS.CHEST ---
HPI History of Present Illness Chief Complaint: Chest Pain Informant: patient and EMS Narrative Narrative: 64-year-old female presenting with chest pain has been present for 3 days off-and-on. She states tends to last 30 minutes at a time or so, feels sharp nonpleuritic. She states it is mid chest sometimes more to the right or left, And epigastric. She states it is not really there right now. She states sometimes it is random but she remembers lying on her left side and triggering it several times. No associated symptoms such as nausea, vomiting, syncope, near syncope, palpitations, dyspnea. No recent cough or fevers. No leg swelling or pain. No history of DVT or PE. No recent long travel/immobilization/hospitalization or surgery. She has a history of COPD, she still smokes, no known heart history. [facility] Medical History Emphysema lung Essential (primary) hypertension COPD (chronic obstructive pulmonary disease) Schizophrenia Bipolar disease, chronic Tobacco dependence Home Medications ?Medication ?Instructions ?Recorded ?Last Taken ?Type Quetiapine Fumarate [Seroquel Xr] 600 mg PO QHS SLEEP 03/17/15 Unknown History bupropion HCl 150 mg 24 hr tablet, 150 mg PO DAILY DEPRESSION 03/17/15 Unknown History extended release escitalopram oxalate 10 mg tablet 20 mg PO DAILY DEPRESSION 03/17/15 Unknown History gabapentin 300 mg capsule 300 mg PO TID PAIN 03/17/15 Unknown History lamotrigine 100 mg tablet 100 mg PO BID DEPRESSION 03/17/15 12/19/18 04:30 History triazolam 0.25 mg tablet 0.25 mg ORAL QHS PRN PRN Insomnia 03/17/15 Unknown History benztropine 2 mg tablet 2 mg PO QHS TREMORS 06/30/15 Unknown History albuterol sulfate 2.5 mg/3 mL 2.5 mg inhalation Q4H PRN PRN 11/16/16 12/19/18 04:30 History (0.083 %) solution for nebulization Wheezing fluticasone propionate 110 1 puff inhalation BID COPD 11/16/16 11/18/16 07:16 History mcg/actuation HFA aerosol inhaler (Flovent HFA) acetaminophen 500 mg tablet 1,000 mg (2 x 500 mg) PO Q6 12/21/18 Unknown Rx ibuprofen 600 mg tablet 600 mg PO TID PRN Pain 12/21/18 Unknown Rx insulin lispro 100 unit/mL 0 unit (0 mL) subcut Q4H PRN PRN 12/21/18 Unknown Rx subcutaneous pen (Humalog KwikPen BG >/= 180, SEE PROTOCOL (U-100) Insulin) magnesium citrate 300 ml PO X1 ##1 08/29/20 Unknown Rx albuterol sulfate 90 mcg/actuation 2 puff inhalation Q4H PRN PRN 11/27/22 Unknown Rx aerosol inhaler (Ventolin HFA) Wheezing ##1 nirmatrelvir 300 mg (150 mg See Rx Instructions PO .COMPLEX 11/27/22 Unknown Rx x2)-ritonavir 100 mg tablet,dose #30 tabs pack (Paxlovid) oseltamivir 75 mg capsule 75 mg PO BID #10 CAPSULES 11/27/22 Unknown Rx dicyclomine 20 mg tablet 20 mg PO Q6H PRN PRN abdominal 04/28/25 Unknown Rx discomfort #12 tabs pantoprazole 40 mg tablet,delayed 40 mg PO DAILY #14 tabs 04/28/25 Unknown Rx release Allergy/AdvReac Type Severity Reaction Status Date / Time doxycycline Allergy Hives Verified 04/28/25 20:54 erythromycin base Allergy Hives Verified 04/28/25 20:54 meperidine HCl (From Demerol) Allergy Hives Verified 04/28/25 20:54 morphine Allergy Hives Verified 04/28/25 20:54 prednisone Allergy Hives Verified 04/28/25 20:54 trazodone HCl (From Desyrel) Allergy Hives Verified 04/28/25 20:54 Surgical History (Updated 11/27/22 @ 09:[address] Sy Stewart DO) History of hysterectomy Social History Smoking Status: Current every day smoker tobacco type: cigarettes ROS ROS ED Constitutional Constitutional ED: Denies chills or fever(s) Eyes Eyes: Denies change in vision or diplopia ENT ENT ED: Denies rhinorrhea or sore throat Cardiovascular Cardiovascular: Reports as per HPI and chest pain; Denies leg edema, palpitations or syncope Respiratory/Chest Respiratory/Chest: Denies cough or dyspnea Gastrointestinal Gastrointestinal: Denies abdominal pain, diarrhea, nausea or vomiting Genitourinary Genitourinary ED: Denies dysuria or hematuria Musculoskeletal Musculoskeletal: Denies back pain or neck pain Integumentary Denies abscess or rash Neurologic Neurologic: Denies headache(s), paresthesias or weakness Psychiatric Psychiatric: Denies anxiety or suicidal thoughts EXAM Physical Exam Const Vital Signs: 04/28/25 20:54 04/28/25 20:59 04/28/25 21:02 Temperature 98.3 F Temperature Source Oral Pulse Rate 102 H Respiratory Rate 25 H Respiratory Effort Normal Non-Labored Blood Pressure 100/53 L Blood Pressure Mean 68 Pulse Ox 97 Oxygen Delivery Method Nasal Cannula Nasal Cannula Oxygen Flow Rate (L/min) 2 2 04/28/25 21:53 Temperature Temperature Source Pulse Rate 90 Respiratory Rate 19 H Respiratory Effort Blood Pressure 103/74 Blood Pressure Mean 83 Pulse Ox 99 Oxygen Delivery Method Room Air Oxygen Flow Rate (L/min) Positive well nourished and well developed General Appearance ED: well developed and NAD HEENT Reports moist mucous membranes normocephalic and atraumatic Eyes PERRL and EOMs intact bilaterally Neck full ROM and supple Resp normal respiratory effort and clear to auscultation bilaterally Cardio regular rate, regular rhythm and no murmurs Rate: Negative for tachycardic GI non-distended GI Narrative: Mild tenderness left upper quadrant without guarding or rebound, no pulsatile mass otherwise benign abdomen. Auscultation: normoactive bowel sounds Palpation: soft Back/Spine no CVA tenderness General Back: other FROM Extremity normal to inspection General Extremety ED: Negative for edema, pulses abnormal or tenderness General Extremity: Negative for edema or pulses abnormal Neuro oriented x3, CN's II-XII intact bilaterally and no sensory deficits noted Sensorium / Orientation: awake and alert Motor Exam: strength 5/5 throughout Skin no rashes or lesions noted and no wounds Heart Score History: Slightly/Non-Suspicious ECG: Normal Age: >/= 65 years Risk Factors: 1 or 2 Risk Factors Troponin: </= Normal Limit Score: 3 MDM MDM MDM Narrative Medical decision making narrative: The patient's EKG is normal, chest x-ray 1 view on my interpretation is normal radiology was in agreement, keeping COPD in contacts, and her labs including a troponin measurement is normal in the single digits. She does not have any discomfort right now. This could be esophageal in etiology, we have essentially ruled out pneumothorax, acute coronary syndrome, acute myocardial infarction, pneumonia, and I do not think this history sounds like a PE. I think would be reasonable to put her on a 2-week course of a PPI and have her follow-up with her doctor discussed that with her she is comfortable with that plan. We also discussed stopping smoking as it is bad very puts her at risk of having an MT although I do not think that is what is going on now. Also in looking at her medication list at discharge, although she said she is on nothing for reflux, she appears to be on omeprazole. She does not remember if she is taking that with her regular medications or not so I am marking it discontinued and prescribing her pantoprazole and prescribing prn dicyclomine for discomfort. Lab Data Attestation: I reviewed the patient's lab results. Labs: Laboratory Results - last 24 hr 04/28/25 20:30 WBC 9.9 RBC 4.60 Hgb 14.1 Hct 40.4 MCV 87.8 MCH 30.7 MCHC 34.9 RDW Std Deviation 46.3 H RDW Coeff of Loretta 14.4 Plt Count 343 MPV 9.3 Immature Gran % (Auto) 0.400 Neut % (Auto) 60.4 Lymph % (Auto) 26.0 [place] % (Auto) 10.4 H Eos % (Auto) 2.4 Baso % (Auto) 0.4 Absolute Neuts (auto) 6.0 Absolute Lymphs (auto) 2.57 Nucleated RBC % 0 Sodium 140 Potassium 3.7 Chloride 100 Carbon Dioxide 27.6 Anion Gap 12 BUN 12 Creatinine 0.73 Estim Creat Clear Calc 60.32 Est GFR (MDRD) Non-Af 92 BUN/Creatinine Ratio 15.8 Glucose 131 H Calcium 10.3 Troponin T High Sens 9 Radiography Diagnostic Testing: Clinical Impression(s) from Imaging Studies Chest X-Ray 04/28/25 12:09 IMPRESSION: No acute cardiopulmonary disease. Reading Location: [facility] Rhythm Strip Rhythm Strip: Sinus Rhythm Rate: 90 Ectopy: None EKG Initial EKG: Attestation: I personally reviewed and interpreted this EKG as follows: Interpretation: Sinus Rhythm and No Acute Injury Pattern Comments: Nml axis & intervals; RSR', otherwise nml EKG Discharge Plan Triage Chief Complaint: Chest Pain ED Provider: Chester Alejandro Dx/Rx/DC Orders Clinical Impression: Chest pain, unspecified, Encounter for smoking cessation counseling Instructions: ED Chest Pain, Noncardiac Prescriptions: New dicyclomine 20 mg tablet 20 mg PO Q6H PRN PRN (Reason: abdominal discomfort) Qty: 12 0RF pantoprazole 40 mg tablet,delayed release (DR/EC) 40 mg PO DAILY Qty: 14 0RF Continued triazolam 0.25 MG tablet 0.25 mg ORAL QHS PRN PRN (Reason: Insomnia) gabapentin 300 MG capsule 300 mg PO TID Patient Comments: lamotrigine 100 MG tablet 100 mg PO BID escitalopram oxalate 10 MG tablet 20 mg PO DAILY bupropion HCl 150 MG tablet extended release 24 hr 150 mg PO DAILY Quetiapine Fumarate [Seroquel Xr] 300 MG Tab.Sr.24h 600 mg PO QHS Patient Comments: DEPRESSION benztropine 2 MG tablet 2 mg PO QHS albuterol sulfate 2.5 MG/3 ML solution for nebulization 2.5 mg inhalation Q4H PRN PRN (Reason: Wheezing) fluticasone propionate [Flovent HFA] 1 INHALER inhaler 1 puff inhalation BID acetaminophen 500 MG tablet 1,000 mg PO Q6 0RF ibuprofen 600 MG tablet 600 mg PO TID PRN (Reason: Pain) 0RF insulin lispro [Humalog KwikPen Insulin] 100 UNIT/ML insulin pen 0 unit subcut Q4H PRN PRN (Reason: BG >/= 180, SEE PROTOCOL) 0RF magnesium citrate 300 ML solution 300 ml PO X1 Qty: 1 0RF Rx Instructions: Paxlovid 300 mg (150 mg x 2)-100 mg tablets,dose pack See Rx Instructions .ROUTE .COMPLEX Qty: 30 0RF Rx Instructions: take TWO 150 mg tablets of nirmatrelvir with ONE 100 mg tablet of ritonavir twice daily for 5 days oseltamivir 75 mg capsule 75 mg PO BID Qty: 10 0RF albuterol sulfate [Ventolin HFA] 90 mcg/actuation HFA aerosol inhaler 2 puff inhalation Q4H PRN PRN (Reason: Wheezing) Qty: 1 0RF Discontinued omeprazole 20 MG capsule 20 mg PO BID Patient Comments: REFLUX Primary Care Provider: Pancho Aguilar Referrals: Pancho Aguilar MD [Primary Care Provider] - 1 Week if not improving Print Language: Upper Sorbian Disposition Disposition: Home, Self Care
[2025-04-28 22:04] VITALS: BP 109/69; PULSE 87; RESP 20; TEMP 36.8; O2SAT 98
== END 2025-04-28 22:24 | disposition home or self-care (01) ==
PROVIDERS: Emergency Provider Emergency Medicine; PCP Family Medicine; Visit Provider Emergency Medicine
DX: R07.89 Other chest pain (principal); J43.9 Emphysema, unspecified; I10 Essential (primary) hypertension; F17.210 Nicotine dependence, cigarettes, uncomplicated; Z71.6 Tobacco abuse counseling; Z79.51 Long term (current) use of inhaled steroids; Z79.899 Other long term (current) drug therapy
CPT/HCPCS: 71045; 80048; 84484; 85025; 93005; 99285; A4216

== ENCOUNTER 2025-05-19 16:59 | Emergency (ER) | payer MEDICARE, MEDICAID, SELFPAY ==
[2025-05-19 17:00] VITALS: BP 124/86; PULSE 101; RESP 16; TEMP 36.9; O2SAT 97
[2025-05-19 17:55] VITALS: BMI 18.7
--- NOTE | 2025-05-19 17:55 | RAD_ITS ---
PROCEDURE: ANKLE MIN 3 VIEWS N/A REASON FOR EXAM: RIGHT ANKLE PAIN TECHNIQUE: Procedure Code: RADANK Modality: DX Procedure: ANKLE MIN 3 VIEWS Laterality: Right COMPARISON: None FINDINGS: Osseous: The bones appear slightly demineralized. Distal tibiofibular congruency is maintained. No subchondral defect is seen at the talar dome. Subtalar alignment is within normal limits. Calcaneal height is preserved. No acute displaced fracture is seen at the right ankle or hindfoot. No bone lesion or periosteal reaction. Soft tissues: Soft tissue injury is not well assessed by this technique. For evaluation of radiographically occult musculoskeletal injury or internal derangement, consider MRI as clinically appropriate. RAD/Ankle min 3 Views IMPRESSION: No radiographic evidence of an acute osseous injury at the right ankle. - Findings and recommendations discussed above. Reading Location: [id number]
--- NOTE | 2025-05-19 18:37 | EX.ED.DYSGE1 ---
HPI History of Present Illness Chief Complaint: Lower Extremity Injury Narrative Narrative: Chief complaint and HPI: 64-year-old female with past medical history of bipolar, schizophrenia, HTN, COPD presents for evaluation of right foot pain after an injury. Patient states she was stepping off the porch when she fell and landed on her right foot/ankle. Did not hit her head. No LOC. States she could not walk secondary to the pain and EMS was called. Triage note states that the patient was having right ankle pain however she endorses mostly right foot pain. She denies any numbness or tingling. Denies any headache, vision changes, chest pain, shortness of breath, abdominal pain, nausea, vomiting. Review of systems: See HPI Medications: As listed on the chart Allergies: As listed on the chart PFSH: Per chart Vital signs: As listed on the chart. Reviewed. Gen: A&O x3, NAD Head: Normocephalic, atraumatic Eyes: No sclera icterus, conjunctiva clear ENT: Araumatic, moist mucous membranes Neck: Trachea midline, full range of motion CV: RRR, no murmurs Resp: Lungs CTA BL, no w/r/c GI: Abd soft, non-distended, non-tender, no r/r/g Musc: Full ROM except limited plantar and dorsiflexion in the right foot secondary to pain, patient has tenderness to palpation on the dorsal aspect of the midfoot-no significant swelling/no ecchymosis, DP/PT pulses +2 bilaterally, Achilles intact, calcaneus nontender, ankle nontender to palpation, good capillary refill, compartments soft, sensation intact Skin: Warm, dry, intact Neuro: Alert, oriented, grossly intact, sensation intact, GCS 15 Psych: Cooperative, appropriate mood and affect [facility] Medical History Emphysema lung Essential (primary) hypertension COPD (chronic obstructive pulmonary disease) Schizophrenia Bipolar disease, chronic Tobacco dependence Home Medications ?Medication ?Instructions ?Recorded ?Last Taken ?Type Quetiapine Fumarate [Seroquel Xr] 600 mg PO QHS SLEEP 03/17/15 Unknown History bupropion HCl 150 mg 24 hr tablet, 150 mg PO DAILY DEPRESSION 03/17/15 Unknown History extended release escitalopram oxalate 10 mg tablet 20 mg PO DAILY DEPRESSION 03/17/15 Unknown History gabapentin 300 mg capsule 300 mg PO TID PAIN 03/17/15 Unknown History lamotrigine 100 mg tablet 100 mg PO BID DEPRESSION 03/17/15 12/19/18 04:30 History triazolam 0.25 mg tablet 0.25 mg ORAL QHS PRN PRN Insomnia 03/17/15 Unknown History benztropine 2 mg tablet 2 mg PO QHS TREMORS 06/30/15 Unknown History albuterol sulfate 2.5 mg/3 mL 2.5 mg inhalation Q4H PRN PRN 11/16/16 12/19/18 04:30 History (0.083 %) solution for nebulization Wheezing fluticasone propionate 110 1 puff inhalation BID COPD 11/16/16 11/18/16 07:16 History mcg/actuation HFA aerosol inhaler (Flovent HFA) acetaminophen 500 mg tablet 1,000 mg (2 x 500 mg) PO Q6 12/21/18 Unknown Rx ibuprofen 600 mg tablet 600 mg PO TID PRN Pain 12/21/18 Unknown Rx insulin lispro 100 unit/mL 0 unit (0 mL) subcut Q4H PRN PRN 12/21/18 Unknown Rx subcutaneous pen (Humalog KwikPen BG >/= 180, SEE PROTOCOL (U-100) Insulin) magnesium citrate 300 ml PO X1 ##1 08/29/20 Unknown Rx albuterol sulfate 90 mcg/actuation 2 puff inhalation Q4H PRN PRN 11/27/22 Unknown Rx aerosol inhaler (Ventolin HFA) Wheezing ##1 nirmatrelvir 300 mg (150 mg See Rx Instructions PO .COMPLEX 11/27/22 Unknown Rx x2)-ritonavir 100 mg tablet,dose #30 tabs pack (Paxlovid) oseltamivir 75 mg capsule 75 mg PO BID #10 CAPSULES 11/27/22 Unknown Rx dicyclomine 20 mg tablet 20 mg PO Q6H PRN PRN abdominal 04/28/25 Unknown Rx discomfort #12 tabs pantoprazole 40 mg tablet,delayed 40 mg PO DAILY #14 tabs 04/28/25 Unknown Rx release Allergy/AdvReac Type Severity Reaction Status Date / Time doxycycline Allergy Hives Verified 05/19/25 17:03 erythromycin base Allergy Hives Verified 05/19/25 17:03 meperidine HCl (From Demerol) Allergy Hives Verified 05/19/25 17:03 morphine Allergy Hives Verified 05/19/25 17:03 prednisone Allergy Hives Verified 05/19/25 17:03 trazodone HCl (From Desyrel) Allergy Hives Verified 05/19/25 17:03 Surgical History (Updated 11/27/22 @ 09:[address] Sy Stewart DO) History of hysterectomy Social History Smoking Status: Current every day smoker tobacco type: cigarettes EXAM Physical Exam Const Vital Signs: 05/19/25 17:00 Temperature 98.4 F Temperature Source Oral Pulse Rate 101 H Respiratory Rate 16 Blood Pressure 124/86 H Blood Pressure Mean 98 Pulse Ox 97 Oxygen Delivery Method Room Air MDM MDM MDM Narrative Medical decision making narrative: 64-year-old female with past medical history of bipolar, schizophrenia, HTN, COPD presents for evaluation of right foot pain after an injury. Patient states she was stepping off the porch when she fell and landed on her right foot/ankle. Did not hit her head. No LOC. States she could not walk secondary to the pain and EMS was called. Triage note states that the patient was having right ankle pain however she endorses mostly right foot pain. On presentation, patient no acute distress. Patient had x-ray of the ankle performed in triage. X-ray of the ankle was personally viewed interpreted by me, ED physician. No fracture or dislocation. Radiology in agreement. On physical exam, patient has no tenderness to palpation of the ankle instead her pain is all located in the dorsal aspect of the midfoot. This is the area that is tender to palpation. This is the area she is endorsing pain. [place] and Toradol given for pain. Will obtain x-ray of the foot. X-ray of the foot was personally reviewed interpreted by me, ED physician. No obvious fracture or dislocation. Radiology in agreement. At this point in time, I suspect patient's pain is secondary to right foot contusion/sprain as well as right ankle sprain. Patient will be given order for Aircast and crutches as needed for comfort. Follow-up with PCP and orthopedics. She confirmed understand the plan. Patient will discharge home. Tylenol Motrin as needed for pain. Given education on RICE therapy. Impression: 1. Right foot contusion/sprain 2. Right ankle sprain 3. Mechanical fall Radiography Diagnostic Testing: Clinical Impression(s) from Imaging Studies Ankle X-Ray 05/19/25 17:55 IMPRESSION: No radiographic evidence of an acute osseous injury at the right ankle. - Findings and recommendations discussed above. Reading Location: [facility] Foot X-Ray 05/19/25 18:50 IMPRESSION: No radiographic evidence of an acute osseous injury to the right foot. - Other findings discussed above. Reading Location: [facility] Discharge Plan Triage Chief Complaint: Lower Extremity Injury ED Provider: Goran Epstein Dx/Rx/DC Orders Prescriptions: No Action triazolam 0.25 MG tablet 0.25 mg ORAL QHS PRN PRN (Reason: Insomnia) gabapentin 300 MG capsule 300 mg PO TID Patient Comments: lamotrigine 100 MG tablet 100 mg PO BID escitalopram oxalate 10 MG tablet 20 mg PO DAILY bupropion HCl 150 MG tablet extended release 24 hr 150 mg PO DAILY Quetiapine Fumarate [Seroquel Xr] 300 MG Tab.Sr.24h 600 mg PO QHS Patient Comments: DEPRESSION benztropine 2 MG tablet 2 mg PO QHS albuterol sulfate 2.5 MG/3 ML solution for nebulization 2.5 mg inhalation Q4H PRN PRN (Reason: Wheezing) fluticasone propionate [Flovent HFA] 1 INHALER inhaler 1 puff inhalation BID acetaminophen 500 MG tablet 1,000 mg PO Q6 0RF ibuprofen 600 MG tablet 600 mg PO TID PRN (Reason: Pain) 0RF insulin lispro [Humalog KwikPen Insulin] 100 UNIT/ML insulin pen 0 unit subcut Q4H PRN PRN (Reason: BG >/= 180, SEE PROTOCOL) 0RF magnesium citrate 300 ML solution 300 ml PO X1 Qty: 1 0RF Rx Instructions: Paxlovid 300 mg (150 mg x 2)-100 mg tablets,dose pack See Rx Instructions .ROUTE .COMPLEX Qty: 30 0RF Rx Instructions: take TWO 150 mg tablets of nirmatrelvir with ONE 100 mg tablet of ritonavir twice daily for 5 days oseltamivir 75 mg capsule 75 mg PO BID Qty: 10 0RF albuterol sulfate [Ventolin HFA] 90 mcg/actuation HFA aerosol inhaler 2 puff inhalation Q4H PRN PRN (Reason: Wheezing) Qty: 1 0RF dicyclomine 20 mg tablet 20 mg PO Q6H PRN PRN (Reason: abdominal discomfort) Qty: 12 0RF pantoprazole 40 mg tablet,delayed release (DR/EC) 40 mg PO DAILY Qty: 14 0RF Primary Care Provider: Pancho Aguilar Referrals: Pancho Aguilar MD [Primary Care Provider] - Print Language: [place]
--- OUTSIDE RECORDS SUMMARY | 2025-05-19 18:37 | XMS RPT_ITS | CCD ---
Author Organization [facility] Care Team Providers Care Remote Control Mirror Installer Name Role Phone ALISSA POWERS Robert Unavailable TERESA Lemon Unavailable TERESA Lemon MD, Mark D Primary Care Provider [phone] LAUREN BRAR, DR MOORE Primary Care Physician Teresa Aguilar MD Primary Care Provider Teresa Aguilar MD Primary Care Provider Teresa Aguilar MD Primary Care Provider Roro Loo MD Unavailable CAROLYN JAMISON Referring Unavailab TERESA Melendez Primary Care Unavailable TERESA AGUILAR Primary Care Unavailable SHOULDERS, KEVIN Referring Unavailable Iva RN, Stella Unavailable Unavailable Teresa Aguilar MD Primary Care Provider [phone] TERESA AGUILAR Primary Care Unavailable TERESA AGUILAR Primary Care Unavailable TERESA AGUILAR Primary Care Unavailable PERLA KENNEDY Referring Unavailable TERESA AGUILAR Primary Care Unavailable TERESA AGUILAR Primary Care Unavailable SURYA PERLA Referring Unavailable TERESA AGUILAR Primary Care Unavailable NILESH BRAR, DR MARYJANE Zimmer Attending Unavailcharisma AGUILAR MD, DR MOORE Primary Care Unavailab avinash AGUILAR MD, DR MOORE Primary Care Unavailab AYESHA Keyes MD Attending JOE Hutchinson MD Attending Unavailable LAUREN BRAR, DR MOORE Primary Care Unavailab JOCELIN Moore DO Attending Unavailable LAUREN BRAR, DR MOROE Primary Care Unavailab avinash Ferrer APRN.WARD SERVICE SUPERVISOR, Nga Unavailable LAUREN BRAR, DR MOORE Primary Care Unavailab JOE Westbrook MD Attending Unavailable AYESHA KENNEDY MD Attending Unavailable DR TERESA AGUILAR MD Primary Care Unavailab avinash Butterfield WHEAT FARMER.Lisa DE JESUSe Unavailable [phone] [place] 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 Nga Unavailable Unavail able [place] 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 Nga Unavailable NGA FERRER Attending Unavailabl e ELDERBROCK, TERESA D Primary Care Unavailable KILEY HARRIS Referring Unavailable ELDERBROCK, TERESA D Primary Care Unavailable NGA FERRER Attending Unavailabl e ELDERBROCK, TERESA D Primary Care Unavailable CORA GIL Attending Unavailable TANNSAMFNGA Referring Unavailabl e ELDERBROCK, TERESA D Primary Care Unavailable ELDERBROCK, TERESA D Referring Unavailable ELDERBROCK, TERESA D Primary Care Unavailable CORA GIL Referring Unavailable ELDERBROCK, TERESA D Primary Care Unavailable TANNNGA FELICIANO Referring Unavailabl e ELDERBROCK, TERESA D Primary Care Unavailable EMELI SPIVEY Attending Unavailable ELDERCHANDLER, TERESA Cabrera Primary Care Unavailable ELDERTERESA ARTEAGA Attending Unavailable ELDERCHANDLER, TERESA Cabrera Referring Unavailable ELDERBROCK, TERESA Deborah Primary Care Unavailable CORA GIL Referring Unavailable ELDERBROCK, TERESA D Primary Care Unavailable MAIA BEASLEY Attending Unavailable ELDERCHANDLER, TERESA Cabrera Referring Unavailable ELDERBROCK, TERESA Cabrera Primary Care Unavailable ROBIN LOUIS Attending Unavailable ELDERTALHACK, TERESA Cabrera Referring Unavailable ELDERBROCK, TERESA Deborah Primary Care Unavailable KARIN LLOYD Attending Unavailable ELDERTALHACK, TERESA Deborah Primary Care Unavailable ELDERTERESA ARTEAGA Attending Unavailable ELDERCHANDLER, TERESA Cabrera Primary Care Unavailable ELDERTERESA ARTEAGA Referring Unavailable KARLCK, TERESA Cabrera Primary Care Unavailable Dr. Teresa Aguilar MD Primary Care Provider Dr. Chester Alejandro MD Emergency Provider Teresa Aguilar Primary Care Unavailable Chester Alejandro Attending Unavailable Allergies Allergy Classification Reported Allergen(s) Allergy Type Date of Onset Reaction(s) Facility Corticosteroids (2 sources) predniSONE Drug Allergy 0 Rash [facility] Doxycycline (2 sources) Doxycycline Drug Allergy 0 Hives [facility] Macrolides (antibiotic) (2 sources) Erythromycin Drug Allergy 6 Rash [facility] Opioid Agonists (4 sources) Meperidine Drug Allergy 6 Rash, Swelling [facility] Serotonin Reuptake Inhibitors (SSRIs) (2 sources) traZODone Drug Allergy 6 [facility] Work Phone: (20 sources) Doxycycline; Translations: [doxycycline] Drug Allergy 0 [facility] Work Phone: (20 sources) Erythromycin; Translations: [erythromycin] Drug Allergy 6 [facility] Work Phone: (20 sources) Meperidine; Translations: [meperidine] Drug Allergy 8 [facility] Comment on above: rash over entire bod y (20 sources) Morphine; Translations: [morphine] Drug Allergy 6 Swelling [facility] Work Phone: (20 sources) predniSONE; Translations: [prednisone] Drug Allergy 0 [facility] (20 sources) traZODone; Translations: [TRAZODONE HCL] Drug Allergy 6 [facility] Work Phone: (11 sources) traZODone; Translations: [trazodone] Drug Allergy blotches over body [facility] (3 sources) Meperidine; Translations: [meperidine HCl] Drug Allergy 9 [facility] (20 sources) levoFLOXacin; Translations: [LEVOFLOXACIN] Drug Allergy 4 [facility] (1 source) Doxycycline Drug Allergy 5 [facility] (1 source) Erythromycin Drug Allergy 5 [facility] (1 source) Morphine Drug Allergy 5 [facility] (1 source) predniSONE Drug Allergy 5 [facility] (1 source) traZODone Drug Allergy 5 [facility] Medications Current Medications Medication Drug Class(es) Dates Sig (Normalized) Sig (Original) acetaminophen 500 mg oral tablet (2 sources) Start: 12-21-2018 take 2 tablets by mouth every six hours Acetaminophen 500 MG tablet Active 1000 mg PO EVERY 6 HOURS 0 December 21, 2018 12:00am Start: 12-21-2018 take 1000 mg by mout h every six hours Acetaminophen Active 1000 MG [...] every six hours as needed for pain acetaminophen-hyd rocodone 325 mg-5 mg oral tablet Dose = [...] every six hours as needed for pain [place] 325- 5 mg oral tablet Dose = 1 tab(s), Oral, q6h, PRN as needed for pain, X 3 day(s), # 12 tab(s), 0 Refill(s), Tail bone pain, 52.3 Start Date: 09/28/23 Stop Date: 10/01/23 Status: Ordered Start: 05-05-2022 End: 05-07-2022 take 1 tablet by mouth every six hours Corona 325- 5 mg oral tablet Dose = 1 tab(s), Oral, q6h, # 8 tab(s), 0 Refill(s), Ankle sprain, 63.6 Start Date: 05/05/22 Stop Date: 05/07/22 Status: Ordered Quantity: 8.0 Unit: tab(s) Repeat number: 1 Indication: Sprain of unspecified ligament of unspecified ankle, initial encounter [id number] 200 actuat albuterol 0.09 mg/actuat metered dose inhaler (20 sources) beta2-Adrenergic Agonist Start: 11-27-2022 Albut robina Sulfate (Ventolin Hfa) 90 mcg/actuation HFA aerosol inhaler Active 2 NMA INHALATION EVERY 4 HOURS NEEDED as needed for Wheezing 1 November 27, 2022 12:00am Start: 11-27-2022 take 1 puff(s) by in halation every four hours as needed Albuterol Sulfate (Ventolin Hfa) 90 mcg/actuation HFA aerosol inhaler Active 2 PUFF INHALATION EVERY 4 HOURS NEEDED November 27, 2022 12:00am Start: 10-17-2021 End: 09-10-2022 take 2.5 mg by inhalation every four hours as needed albuterol (PROVENTIL) 2.5 mg /3 mL (0.083 %) nebulizer solution Use 3 mL via nebulizer every 4 hours as needed for wheezing/shortness of breath. Use over 5-15minutes. 360 mL 5 09/10/2022 Active Start: 12-26-2019 take 2 puff(s) by in halation every four hours as needed for wheezing albuterol HFA (PROVENTIL HFA, VENTOLIN HFA) 90 mcg/actuation inhaler Indications: Acute bronchitis with chronic obstructive pulmonary disease (COPD) (HCC) , Cough Inhale 2 Puffs as instructed every 4 hours as needed for Wheezing/Shortness of Breath. 1 Inhaler 1 12/26/2019 Active Start: 08-29-2019 End: 04-03-2021 take 2.5 mg by inhalation every four hours as needed albuterol (PROVENTIL) 2.5 mg /3 mL (0.083 %) nebulizer solution Use 3 mL via nebulizer every 4 hours as needed for Wheezing/Shortness of Breath. Use over 5-15minutes. 1 Package 08/29/2019 04/03/2021 Discontinued Start: 11-16-2016 take 2.5 mg by inhal ation every four hours as needed for wheezing Albuterol Sulfate 2.5 MG/3 ML solution for nebulization Active 2.5 mg INHALATION EVERY 4 HOURS NEEDED as needed for Wheezing November 16, 2016 1:00am Start: 12-09-2013 take 1 dose by inhal ation four times daily as needed for wheezing ProAir HFA MDI (90 mcg/inh) inhalation aerosol Dose = 1 puff(s), Inhalation, QID, PRN for wheezing Start Date: 12/09/13 Status: Ordered Repeat number: 1 Comment on above: Inhale 2 Puffs as in structed every 4 hours as needed for Wheezing/Shortness of Breath. Use 3 mL via nebuliz er every 4 hours as needed for wheezing/shortness of breath. Use over 5-15minutes. albuterol 0.833 mg/ml / ipratropium bromide 0.167 mg/ml inhalation solution (11 sources) Anticholinergic, beta2-Adrenergic Agonist Start: 018 take 1 dose by inhalation four times daily DuoNeb 0.5 mg-2.5 mg/3 mL inhalation solution Dose = 3 mL, Inhalation, QID, # 30 EA, 0 Refill(s) Start Date: 06/26/18 Status: Ordered Quantity: 30.0 Unit: EA Repeat number: 1 albuterol MDI (90 mcg/inh) CFC free inhalation aerosol (4 sources) Start: 024 take 2 puff(s) by inhalation every four hours albuterol MDI (90 mcg/inh) CFC free inhalation aerosol 2 puff(s), Inhalation, q4h, # 1 EA, 0 Refill(s) Start Date: 09/28/23 Status: Ordered Quantity: 1.0 Unit: EA Repeat number: 1 Start: 09-28-2023 take 2 puff(s) by in halation every four hours albuterol MDI (90 mcg/inh) CFC free inhalation aerosol 2 puff(s), Inhalation, q4h, # 1 EA, 0 Refill(s) Start Date: 09/28/23 Status: Ordered aspirin 81 mg chewable tablet (1 source) Platelet Aggregation Inhibitor, Nonsteroidal Anti-inflammatory Drug Start: 11-27-2022 End: 11-27-2022 aspirin 324 mg chewable tab(s) azithromycin 250 mg oral tablet (5 sources) Macrolide Antimicrobial Start: 04-13-2024 End: 04-18-2024 take 2 tablets by mouth once daily, then take 1 tablet by mouth once daily azithromycin (ZITHROMAX) 250 mg tablet Take 2 tablets by mouth once daily for 1 day, THEN 1 tablet once daily for 4 days. 6 tablet 0 04/13/2024 04/18/2024 Active Start: 12-01-2023 End: 12-06-2023 azithromycin (ZITHROMAX Z-PA K) 250 mg tablet Indications: COPD with exacerbation (HCC) Take 2 tablets day one, then, 1 tablet daily until gone. 6 tablet 0 12/01/2023 12/06/2023 Active Comment on above: Take 2 tablets day o ne, then, 1 tablet daily until gone. benztropine mesylate 1 mg oral tablet (20 sources) Anticholinergic, Antihistamine Start: 04-10-2017 benztropine 1 mg oral tablet Dose : 1 mg = 1 tab(s), Oral, BID, # 180 tab(s), 0 Refill(s) Start Date: 04/10/17 Status: Ordered Quantity: 180.0 Unit: tab(s) Repeat number: 1 Start: 06-30-2015 take 1 tablet by nancy th at bedtime Benztropine 2 MG tablet Active 2 mg PO AT BEDTIME June 30, 2015 12:00am [facility] Comment on above: Take 1 mg by mouth t wice daily. 24 hr buPROPion hydrochloride 150 mg extended release oral tablet (13 sources) Aminoketone Start: 7 take 1 tablet by mouth every hour, then take 1 tablet by mouth every twenty-four hours buPROPion 150 mg/24 hours (XL) oral tablet, extended release Dose : 150 mg = 1 tab(s), Oral, q24h, # 30 tab(s), 0 Refill(s) Start Date: 04/10/17 Status: Ordered Quantity: 30.0 Unit: tab(s) Repeat number: 1 Start: 03-17-2015 take 1 tablet by nancy th once daily Bupropion Hcl 150 MG tablet extended release 24 hr Active 150 mg PO DAILY March 17, 2015 12:00am DEPRESSION cholecalciferol 1.25 mg oral capsule (20 sources) Vitamin D Start: 05-12-2022 End: 02-27-2025 take 1 capsule by mouth every week cholecalciferol, Vitamin D3, (VITAMIN D3) 1,250 mcg (50,000 unit) cap capsule Indications: Vitamin D deficiency Take 1 capsule by mouth one time a week. 4 capsule 11 02/27/2025 Active Comment on above: Take 1 capsule by [facility] one time a week. codeine phosphate 2 mg/ml / guaiFENesin 20 mg/ml oral solution (2 sources) Opioid Agonist Start: 12-01-2023 End: 12-06-2023 take 5 mL by mouth three times daily as needed for cough codeine-guaiFENesin (ROBITUSSIN AC) 10-100 mg/5 mL syrup Indications: COPD with exacerbation (HCC) Take 5 mL by mouth three times a day as needed for cough for up to 5 days. 118 mL 0 12/01/2023 12/06/2023 Active Comment on above: Take 5 mL by mouth t hree times a day as needed for cough for up to 5 days. dicyclomine hydrochloride 20 mg oral tablet (1 source) Anticholinergic Start: 04-28-2025 take 1 tablet by mouth every six hours as needed Dicyclomine 20 mg tablet Active 20 mg PO EVERY 6 HOURS NEEDED as needed for abdominal discomfort 12 0 April 28, 2025 12:00am escitalopram 10 mg oral tablet (13 sources) Serotonin Reuptake Inhibitor Start: 03-17-2015 take 2 tablets by mouth once daily Escitalopram Oxalate 10 MG tablet Active 20 mg PO DAILY March 17, 2015 12:00am DEPRESSION Start: 03-17-2015 take 20 mg by mouth once daily Escitalopram Oxalate Active 20 MG PO DAILY March 17, 2015 12:00am Start: 12-09-2013 Lexapro 5 mg o ral tablet 1 1/2 tablet, Oral, Daily Start Date: 12/09/13 Status: Ordered Repeat number: 1 fluticasone propionate 0.05 mg/actuat metered dose nasal spray (10 sources) Corticosteroid Start: 08-02-2022 Flonase 50 mcg /inh nasal spray Dose = 1 spray(s), Nasal, BID, in each nostril, # 1 EA, 0 Refill(s), Upper respiratory infection Start Date: 08/02/22 Status: Ordered Quantity: 1.0 Unit: EA Repeat number: 1 Indication: Acute upper respiratory infection, unspecified Start: 11-16-2016 Fluticasone Pr opionate (Flovent Hfa) 1 INHALER inhaler Active 1 NMA INHALATION TWICE A DAY November 16, 2016 1:00am COPD Start: 11-16-2016 take 1 puff(s) by in halation twice daily Fluticasone Propionate (Flovent Hfa) 1 INHALER inhaler Active 1 PUFF INHALATION TWICE A DAY November 16, 2016 1:00am 30 actuat fluticasone furoate 0.1 mg/actuat / umeclidinium 0.0625 mg/actuat / vilanterol 0.025 mg/actuat dry powder inhaler (2 sources) Anticholinergic, Corticosteroid, beta2-Adrenergic Agonist Start: 03-30-2025 take 1 puff(s) by inhalation once daily ilddqwhohql-maotkykaz-kgtionur (TRELEGY ELLIPTA) 100-62.5-25 mcg inhalation powder Inhale 1 puff as instructed once daily. 60 each 11 03/30/2025 Active gabapentin 300 mg oral capsule (2 sources) Anti-epileptic Agent Start: 03-17-2015 take 1 capsule by mouth three times daily Gabapentin 300 MG capsule Active 300 mg PO THREE TIMES A DAY March 17, 2015 12:00am PAIN gentamicin 3 mg/ml ophthalmic solution (1 source) Start: 08-28-2022 End: 09-04-2022 gentamicin 0.3% ophthalmic solution Dose = 2 drop(s), Eye, left, q4h-WA, While awake, X 7 day(s), # 1 EA, 0 Refill(s), Corneal ulcer of right eye Start Date: 08/28/22 Stop Date: 09/04/22 Status: Ordered ibuprofen 600 mg oral tablet (6 sources) Nonsteroidal Anti-inflammatory Drug Start: 12-21-2018 take 1 tablet by mouth three times daily as needed for pain Ibuprofen 600 MG tablet Active 600 mg PO THREE TIMES A DAY as needed for Pain 0 December 21, 2018 12:00am Start: 11-23-2018 End: 12-21-2018 Ibuprofen (Motrin) 800 MG ta blet Discontinued 600 mg PO 3 TIMES DAILY NEEDED as needed for Pain November 23, 2018 10:40am December 21, 2018 6:37am Start: 03-04-2016 End: 11-23-2018 take 1 tablet by mouth three times daily as needed for pain Ibuprofen (Motrin) 800 MG tablet Discontinued 800 mg PO 3 TIMES DAILY NEEDED as needed for Pain 20 0 March 04, 2016 12:00am November 23, 2018 10:41am 3 ml insulin lispro 100 unt/ml pen injector (2 sources) Insulin Analog Start: 12-21-2018 Insulin Lispro (Humalog Kwikpen Insulin) 100 UNIT/ML insulin pen Active 0 U SC EVERY 4 HOURS NEEDED as needed for BG >/= 180, SEE PROTOCOL 0 December 21, 2018 12:00am Start: 12-21-2018 Insulin Lispro (Humalog Kwikpen Insulin) 100 UNIT/ML insulin pen Active 0 UNIT SC EVERY 4 HOURS NEEDED December 21, 2018 12:00am iv contrast (will be provided with radiology test) (1 source) Start: 06-09-2024 End: 06-10-2024 inject 1 dose intravenously once iv contrast (will be provided with radiology test) Indications: Falls , Cognitive changes , Cognitive impairment, mild, so stated MRI Brain Inject, intravenously, once for 1 dose.No IV access, insert saline lock prior to beginning of sedation, infusion, injection of imaging exam.Discontinue saline lock post exam. If Pt. has a central line or IVAD, may access for administration according to line specific nursing protocol.Once exam is complete flush line and de-access according to line specific nursing protocol in the MR contrast administration guidelines link 1 Each 06/09/2024 06/10/2024 Active lamoTRIgine 150 mg oral tablet (20 sources) Mood Stabilizer, Anti-epilep tic Agent Start: 05-27-2020 take 1 tablet by mouth every eight hours as needed lamoTRIgine (LAMICTAL) 150 mg tablet Take 1 tablet by mouth three times daily as needed. 05/27/2020 Active Start: 12-09-2013 take 1 tablet by nancy th twice daily Lamotrigine 100 MG tablet Active 100 mg PO TWICE A DAY March 17, 2015 12:00am DEPRESSION Comment on above: Take 1 tablet by nancy th three times daily as needed. levoFLOXacin 750 mg oral tablet (1 source) Quinolone Antimicrobial Start: 03-07-20 End: 03-12-20 take 1 tablet by mouth once daily levoFLOXacin (LEVAQUIN) 750 mg tablet Take 1 tablet by mouth once daily for 5 days. 5 tablet 0 03/07/2024 03/12/2024 Active LORazepam 1 mg oral tablet (1 source) Benzodiazepine Start: 06-23-20 End: 06-24-20 Ativan 1 mg oral tablet Dose : 1 mg = 1 tab(s), PO, TID, PRN as needed for anxiety, X 1 day(s), # 3 tab(s), 0 Refill(s), 06/24/22 11:59:00 EDT, Hyperventilation, 59.1 Start Date: 06/23/22 Stop Date: 06/24/22 Status: Ordered magnesium citrate 58.2 mg/ml oral solution (2 sources) Start: 08-29-20 take 1 mL by mouth once Magnesium Citrate 300 ML solution Active 300 mL PO ONE TIME 1 August 29, 2020 1:00am Start: 08-29-2020 take 1 mL by mouth once Magnes ium Citrate Active 300 ML PO ONE TIME August 29, 2020 1:00am meclizine hydrochloride 25 mg oral tablet (20 sources) Antiemetic Start: 12-18-2024 End: 06-03-2025 take 1 tablet by mouth every six hours as needed for dizziness meclizine (ANTIVERT) 25 mg tab Indications: BPPV (benign paroxysmal positional vertigo), unspecified laterality Take 1 tablet by mouth every 6 hours as needed (dizziness). 40 tablet 5 03/05/2025 06/03/2025 Active Start: 08-07-2024 End: 11-05-2024 take 1 tablet by mouth every six hours as needed for dizziness meclizine (ANTIVERT) 25 mg tab Indications: BPPV (benign paroxysmal positional vertigo), unspecified laterality Take 1 tablet by mouth every 6 hours as needed (dizziness). 40 tablet 5 08/07/2024 11/05/2024 Active Start: 10-11-2023 End: 07-17-2024 take 1 tablet by mouth every six hours as needed for dizziness meclizine (ANTIVERT) 25 mg tab Indications: BPPV (benign paroxysmal positional vertigo), unspecified laterality Take 1 tablet by mouth every 6 hours as needed (dizziness). 40 tablet 5 04/18/2024 07/17/2024 Active Start: 09-28-2023 End: 10-05-2023 meclizine 25 mg oral tablet Dose : 25 mg = 1 tab(s), Oral, TID, X 7 day(s), # 20 tab(s), 0 Refill(s), 10/05/23 5:49:00 PM EST Start Date: 09/28/23 Stop Date: 10/05/23 Status: Ordered Comment on above: Take 1 tablet by nancy th every 6 hours as needed (dizziness). melatonin 10 mg oral tablet (20 sources) Start: 06-13-2023 take 1 tablet by mouth every twenty-four hours as needed melatonin 10 mg tab Take 1 tablet by mouth at bedtime as needed. 06/13/2023 Active Start: 05-01-2019 take 1 tablet by nancy th at bedtime RA MELATONIN 10 MG TABLET take 1 tablet by mouth at bedtime if needed Start Date: 05/01/19 Status: Ordered Repeat number: 1 End: 08-02-2023 take 1 tablet by mouth once daily at bedtime Melatonin 5 mg tab Take 5 mg by mouth daily at bedtime. 08/02/2023 Discontinued (Discontinued by Patient) Comment on above: Take 5 mg by mouth d aily at bedtime. Take 1 tablet by nancy th at bedtime as needed. mupirocin 0.02 mg/mg topical ointment (5 sources) RNA Synthetase Inhibitor Antibacterial Start: 07-30-2023 End: 08-03-2023 apply 22 g nasal route twice daily mupirocin (BACTROBAN) 2 % ointment Apply twice daily to each nostril for five days pre-operatively. Start on 07/30/2023. 22 g 0 07/30/2023 08/03/2023 Active Comment on above: Apply twice daily to each nostril for five days pre- operatively. Start on 07/30/2023. naproxen 375 mg oral tablet (20 sources) Nonsteroidal Anti-inflammatory Drug Start: 09-07-2024 End: 09-17-2024 naproxen 375 mg oral tablet Dose : 375 mg = 1 tab(s), Oral, BIDM, As needed for pain take with food, # 20 tab(s), 0 Refill(s), 09/17/24 6:41:00 PM EST Start Date: 09/07/24 Stop Date: 09/17/24 Status: Ordered Quantity: 20.0 Unit: tab(s) Repeat number: 1 Start: 04-15-2023 End: 08-02-2023 take 1 tablet by mouth every twelve hours naproxen (NAPROSYN) 250 mg tablet Take 1 tablet by mouth every 12 hours. 04/15/2023 08/02/2023 Discontinued (Discontinued by Patient) Start: 05-01-2019 Naprosyn 500 m g oral tablet Dose : 500 mg = 1 tab(s), Oral, BIDM, PRN Pain, # 20 tab(s), 0 Refill(s) Start Date: 05/01/19 Status: Ordered Quantity: 20.0 Unit: tab(s) Repeat number: 1 Start: 03-29-2019 End: 04-05-2019 Naprosyn 500 mg oral tablet Dose : 500 mg = 1 tab(s), Oral, BIDM, PRN Pain, # 20 tab(s), 0 Refill(s) Start Date: 03/29/19 Stop Date: 04/05/19 Status: Ordered Quantity: 20.0 Unit: tab(s) Repeat number: 1 Comment on above: Take 1 tablet by nancy th every 12 hours. nicotine 2 mg oral lozenge (2 sources) Cholinergic Nicotinic Agonist Start: 03-30-2025 Nicotine Polacrilex [address] 1 lozenge between cheek and gum as needed. 48 lozenge 3 03/30/2025 Active Nirmatrelvir-Ritonavi r (2 sources) Start: 11-27-2022 Nirmatrelvir-Ritonavir (Paxlovid) 300 mg (150 mg x 2)-100 mg tablets,dose pack Active 0 PO .COMPLEX 30 November 27, 2022 12:00am take TWO 150 mg tablets of nirmatrelvir with ONE 100 mg tablet of ritonavir twice daily for 5 days Start: 11-27-2022 Nirmatrelvir-R itonavir (Paxlovid (Eua)) 300 mg (150 mg x 2)- 100 mg tablets,dose pack Active 0 PO .COMPLEX November 27, 2022 12:00am take TWO 150 mg tablets of nirmatrelvir with ONE 100 mg tablet of ritonavir twice daily for 5 days ondansetron 4 mg oral tablet (20 sources) Serotonin-3 Receptor Antagonist Start: 09-28-2023 End: 10-02-2023 ondansetron 4 mg oral tablet, disintegrating Dose : 4 mg = 1 tab(s), Oral, q6h, X 4 day(s), # 16 tab(s), 0 Refill(s), 10/02/23 5:49:00 PM EST Start Date: 09/28/23 Stop Date: 10/02/23 Status: Ordered Start: 08-05-2023 End: 04-18-2024 take 1 tablet by mouth every eight hours as needed ondansetron (ZOFRAN) 4 mg tablet Take 1 tablet by mouth every 8 hours as needed for up to 10 doses. 10 tablet 2 04/18/2024 Active Start: 05-27-2020 End: 08-02-2023 take 1 tablet by mouth every six hours as needed ondansetron orally disintegrating (ZOFRAN ODT) 4 mg disintegrating tablet Take 1 tablet by mouth every 6 hours as needed for Nausea/Vomiting. 20 tablet 05/27/2020 08/02/2023 Discontinued (Discontinued by Patient) Comment on above: Take 1 tablet by nancy th every 6 hours as needed for Nausea/Vomiting. Take 1 tablet by nancy th every 8 hours as needed for up to 10 doses. oseltamivir 75 mg oral capsule (2 sources) Neuraminidase Inhibitor Start: 11-28-19 take 1 capsule by mouth twice daily Oseltamivir 75 mg capsule Active 75 mg PO TWICE A DAY November 27, 2022 12:00am OXYGEN, HOME THERAPY, (20 sources) Start: 04-25-20 OXYGEN, HOME THERAPY, Indications: Oxygen dependent 2 L/min by Nasal Cannula route continuous. 1 Each 04/25/2024 Active Start: 05-21-2023 End: 04-25-2024 OXYGEN, HOME THERAPY, Indica tions: Chronic obstructive pulmonary disease, unspecified COPD type (HCC) , Oxygen dependent 2 L/min by Nasal Cannula route continuous. 1 Each 05/21/2023 04/25/2024 Discontinued Start: 05-21-2023 OXYGEN, HOME T HERAPY, Indications: Chronic obstructive pulmonary disease, unspecified COPD type (HCC) , Oxygen dependent 2 L/min by Nasal Cannula route continuous. 1 Each 11 05/21/2023 Active End: 05-21-2023 OXYGEN, HOME THERAPY, 2 L/mi n by Nasal Cannula route daily at bedtime. 05/21/2023 Discontinued End: 05-21-2023 OXYGEN, HOME THERAPY, 2 L/mi n by Nasal Cannula route daily at bedtime. 0 05/21/2023 Discontinued OXYGEN, HOME THE RAPY, 2 L/min by Nasal Cannula route daily at bedtime. 0 Active Comment on above: 2 L/min by Nasal Can nula route daily at bedtime. 2 L/min by Nasal Can nula route continuous. pantoprazole 40 mg delayed release oral tablet (20 sources) Proton Pump Inhibitor Start: 5 take 1 tablet by mouth once daily Pantoprazole 40 mg tablet,delayed release (DR/EC) Active 40 mg PO DAILY April 28, 2025 12:00am Start: 09-10-2022 End: 02-27-2025 take 1 tablet by mouth once daily before breakfast pantoprazole DR (PROTONIX) 20 mg tablet Take 1 tablet by mouth daily before breakfast. Take on empty stomach, 1/2 hr before meal. 30 tablet 02/27/2025 Active Comment on above: Take 1 tablet by nancy th daily before breakfast. Take on empty stomach, 1/2 hr before meal. prazosin 1 mg oral capsule (20 sources) alpha-Adrenergic Bradford Start: 04-10-2017 prazosin 1 mg oral capsule Dose : 1 mg = 1 cap(s), Oral, TID, # 270 cap(s), 0 Refill(s) Start Date: 04/10/17 Status: Ordered Quantity: 270.0 Unit: cap(s) Repeat number: 1 End: 02-16-2025 take 1 capsule by mouth once daily at bedtime prazosin (MINIPRESS) 2 mg cap Take 2 mg by mouth daily at bedtime. 02/16/2025 Discontinued (Discontinued by another Health Care Provider) Comment on above: Take 2 mg by mouth d aily at bedtime. QUEtiapine 400 mg oral tablet (20 sources) Atypical Antipsychotic Start: 3 take 2 tablets by mouth once daily at bedtime QUEtiapine (SEROQUEL) 400 mg tablet take 2 tablets by mouth once daily at bedtime 07/06/2023 Active Start: 02-09-2018 End: 08-02-2023 SEROquel 300 mg oral tablet Dose : 300 mg = 1 tab(s), Oral, qHS, # 90 tab(s), 0 Refill(s) Start Date: 02/09/18 Status: Ordered Quantity: 90.0 Unit: tab(s) Repeat number: 1 Start: 03-17-2015 take 1 tablet by nancy th at bedtime Quetiapine Fumarate (Seroquel Xr) 300 MG Tab.Sr.24h Active 600 mg PO AT BEDTIME March 17, 2015 12:00am SLEEP Comment on above: Take 300 mg by mouth daily at bedtime. take 2 tablets by mo uth once daily at bedtime 72 hr scopolamine 0.0139 mg/hr transdermal system (1 source) Anticholinergic Start: 11-13-19 End: 11-23-19 scopolamine (TRANSDERM-SCOP) patch 1.5 mg/72 hr (delivers 1 mg over 3 days) Indications: BPPV (benign paroxysmal positional vertigo), bilateral Apply 1 Patch as directed every 72 hours for 10 days. Apply patch to skin behind ear 4hrs prior to travel. 10 Patch 1 11/12/2022 11/22/2022 Active Comment on above: Apply 1 Patch as dir ected every 72 hours for 10 days. Apply patch to skin behind ear 4hrs prior to travel. sertraline 50 mg oral tablet (20 sources) Serotonin Reuptake Inhibitor Start: 05-01-20 sertraline 50 mg oral tablet Dose : 50 mg = 1 tab(s), Oral, Daily, 0 Refill(s) Start Date: 05/01/19 Status: Ordered Repeat number: 1 Comment on above: Take 50 mg by mouth once daily. traMADol hydrochloride 50 mg oral tablet (2 sources) Opioid Agonist Start: 03-27-20 End: 04-03-20 take 1 tablet by mouth twice daily traMADol (ULTRAM) 50 mg tablet Indications: Right shoulder pain, unspecified chronicity Take 1 tablet by mouth two times a day for 7 days. 14 tablet 0 03/27/2024 04/03/2024 Active triazolam 0.25 mg oral tablet (2 sources) Benzodiazepine Start: 03-17-20 take 1 tablet by mouth at bedtime as needed Triazolam 0.25 MG tablet Active 0.25 mg ORAL AT BEDTIME NEEDED as needed for Insomnia March 17, 2015 12:00am Completed/Discontinued Medications Medication Drug Class(es) Dates Sig (Normalized) Sig (Original) benzonatate 100 mg oral capsule (20 sources) Non-narcotic Antitussive Start: 09-30-2020 End: 08-02-2023 take 1 capsule by mouth every eight hours as needed benzonatate (TESSALON PERLES) 100 mg capsule Take 1 capsule by mouth three times daily as needed for Cough. 30 capsule 1 09/30/2020 08/02/2023 Discontinued (Discontinued by Patient) Comment on above: Take 1 capsule by mo [facility] three times daily as needed for Cough. cefdinir 300 mg oral capsule (8 sources) Cephalosporin Antibacterial Start: 03-20-2024 End: 04-25-2024 take 1 capsule by mouth twice daily cefdinir (OMNICEF) 300 mg capsule Take 1 capsule by mouth two times a day. 20 capsule 0 03/20/2024 04/25/2024 Discontinued (Course of therapy completed) cyclobenzaprine hydrochloride 10 mg oral tablet (20 sources) Muscle Relaxant Start: 10-19-2024 End: 02-27-2025 take 1 tablet by mouth three times daily cyclobenzaprine (FLEXERIL) 10 mg tablet Indications: Status post reverse total replacement of right shoulder Take 1 tablet by mouth three times a day. 42 tablet 5 01/02/2025 02/27/2025 Discontinued Start: 09-07-2024 End: 09-12-2024 cyclobenzaprine 5 mg oral ta blet Dose : 5 mg = 1 tab(s), Oral, TID, As needed for back spasm/pain, X 5 day(s), # 15 tab(s), 0 Refill(s), 09/12/24 6:41:00 PM EST Start Date: 09/07/24 Stop Date: 09/12/24 Status: Ordered Quantity: 15.0 Unit: tab(s) Repeat number: 1 Start: 02-18-2024 End: 10-13-2024 take 1 tablet by mouth three times daily cyclobenzaprine (FLEXERIL) 10 mg tablet Indications: Status post reverse total replacement of right shoulder Take 1 tablet by mouth three times a day. 42 tablet 5 07/28/2024 10/13/2024 Discontinued Start: 04-15-2023 End: 07-18-2023 take 1 tablet by mouth three times daily cyclobenzaprine (FLEXERIL) 10 mg tablet Take 10 mg by mouth three times daily. 04/15/2023 06/18/2023 Discontinued Comment on above: Take 10 mg by mouth three times daily. Take 1 tablet by nancy th three times a day. fluticasone / salmeterol (20 sources) Corticosteroid, beta2-Adrenergic Agonist Start: End: take 1 puff(s) by inhalation twice daily fluticasone-salmetero l (ADVAIR DISKUS) 250-50 mcg/dose inhaler Indications: Chronic obstructive pulmonary disease, unspecified COPD type (HCC) Inhale 1 Puff as instructed two times a day. 60 Each 11 09/18/2024 03/30/2025 Discontinued (Course of therapy completed) Start: 09-18-2024 End: 09-18-2025 take 1 puff(s) by inhalation twice daily fluticasone-salmeterol (ADVAIR DISKUS) 250-50 mcg/dose inhaler Indications: Chronic obstructive pulmonary disease, unspecified COPD type (HCC) Inhale 1 Puff as instructed two times a day. 60 Each 11 09/18/2024 09/18/2025 Active Start: 11-13-2023 End: 09-18-2024 take 1 puff(s) by mouth twice daily fluticasone-salmeterol (ADVAIR DISKUS) 250-50 mcg/dose inhaler Indications: Chronic obstructive pulmonary disease, unspecified COPD type (HCC) inhale 1 puff by mouth and INTO THE LUNGS twice a day Rinse mouth after use 60 Each 11 11/13/2023 09/18/2024 Discontinued Start: 05-21-2023 End: 11-13-2023 take 1 puff(s) by inhalation twice daily fluticasone-salmeterol (ADVAIR DISKUS) 250-50 mcg/dose inhaler Indications: Chronic obstructive pulmonary disease, unspecified COPD type (HCC) Inhale 1 Puff as instructed twice daily. 60 Each 2 05/21/2023 11/13/2023 Discontinued Start: 05-21-2023 take 1 puff(s) by in halation twice daily fluticasone-salmeterol (ADVAIR DISKUS) 250-50 mcg/dose inhaler Indications: Chronic obstructive pulmonary disease, unspecified COPD type (HCC) Inhale 1 Puff as instructed twice daily. 60 Each 2 05/21/2023 Active Comment on above: Inhale 1 Puff as ins tructed twice daily. inhale 1 puff by nancy th and INTO THE LUNGS twice a day Rinse mouth after use guaiFENesin 20 mg/ml oral solution (20 sources) Start: 09-19-19 End: 08-02-20 23 take 200 mg by mouth every eight hours as needed for cough and cough guaiFENesin (ROBITUSSIN) 100 mg/5 mL syrup Indications: Cough Take 10 mL by mouth three times daily as needed for Cough. 150 mL 1 09/19/2020 08/02/2023 Discontinued (Discontinued by Patient) Comment on above: Take 10 mL by mouth three times daily as needed for Cough. 10 ml lidocaine hydrochloride 10 mg/ml injection (1 source) Antiarrhythmic, Amide Local Anesthetic Start: 04-04-20 End: 04-05-20 24 lidocaine (PF) 10 mg/mL (1 %) injection (XYLOCAINE) meloxicam 7.5 mg oral tablet (20 sources) Nonsteroidal Anti-inflammatory Drug Start: 03-27-20 24 End: 02-28-20 take 1 tablet by mouth once daily meloxicam (MOBIC) 7.5 mg tablet Indications: Right shoulder pain, unspecified chronicity Take 1 tablet by mouth once daily. 30 tablet 2 01/29/2025 02/27/2025 Discontinued Start: 09-01-2021 End: 05-12-2022 take 1 tablet by mouth once daily meloxicam (MOBIC) 7.5 mg tablet Indications: Chronic right shoulder pain Take 1 tablet by mouth once daily. 30 tablet 0 09/01/2021 05/12/2022 Discontinued Start: 05-01-2019 take 1 tablet by nancy th once daily at mealtime meloxicam 15 mg oral tablet take 1 tablet by mouth once daily with food Start Date: 05/01/19 Status: Ordered Repeat number: 1 Comment on above: Take 1 tablet by nancy th once daily. mineral oil/hydrophil petrolatum (AQUAPHOR) oint (20 sources) Start: 11-08-2020 End: 04-25-2024 mineral oil/hydrophil petrolatum (AQUAPHOR) oint Apply to affected area as needed. Apply liberally to area three times a day. 113 g 11/08/2020 04/25/2024 Discontinued (Course of therapy completed) Start: 11-08-2020 End: 04-25-2024 mineral oil/hydrophil petrol atum (AQUAPHOR) oint Apply to affected area as needed. Apply liberally to area three times a day. 113 g 0 11/08/2020 04/25/2024 Discontinued (Course of therapy completed) Start: 11-08-2020 mineral oil/hy drophil petrolatum (AQUAPHOR) oint Apply to affected area as needed. Apply liberally to area three times a day. 113 g 0 11/08/2020 Active Comment on above: Apply to affected ar ea as needed. Apply liberally to area three times a day. nystatin [id number] unt/ml oral suspension (6 sources) Polyene Antifungal Start: 5 End: 5 take 5 mL by mouth four times daily nystatin (MYCOSTATIN) 100,000 unit/mL suspension Take 5 mL by mouth four times daily. Swish and swallow. 480 mL 02/06/2025 02/27/2025 Discontinued omeprazole 20 mg delayed release oral capsule (20 sources) Proton Pump Inhibitor Start: 6 End: 5 take 1 capsule by mouth twice daily Omeprazole 20 MG capsule Discontinued 20 mg PO TWICE A DAY March 04, 2016 12:00am April 28, 2025 10:06pm GERD Comment on above: take 1 capsule by [facility] twice a day predniSONE 20 mg oral tablet (12 sources) Start: 4 End: 4 take 2 tablets by mouth once daily predniSONE (DELTASONE) 20 mg tablet Take 2 tablets by mouth once daily. 10 tablet 0 03/29/2024 04/25/2024 Discontinued (Course of therapy completed) Start: 12-01-2023 End: 12-05-2023 take 1 tablet by mouth twice daily predniSONE (DELTASONE) 20 mg tablet Indications: COPD with exacerbation (HCC) Take 1 tablet by mouth two times a day for 4 days. 8 tablet 0 12/01/2023 12/05/2023 Active Start: 06-26-2023 End: 06-29-2023 predniSONE 20 mg oral tablet See Instructions, 3 po 1st dose then 1 po q12, # 8 tab(s), 0 Refill(s), 06/29/23 11:52:00 AM EDT Start Date: 06/26/23 Stop Date: 06/29/23 Status: Ordered Start: 09-01-2021 End: 05-12-2022 predniSONE (DELTASONE) 10 mg tablet Take 6 pills (all at once) on day 1, 5 pills on day 2, 4 pills on day 3, 3 pills on day 4, 2 pills on day 5, and 1 pill on day 6. 21 tablet 0 09/01/2021 05/12/2022 Discontinued Comment on above: Take 6 pills (all at once) on day 1, 5 pills on day 2, 4 pills on day 3, 3 pills on day 4, 2 pills on day 5, and 1 pill on day 6. Take 1 tablet by nancy th two times a day for 4 days. 10 actuat tiotropium 0.0025 mg/actuat inhalation spray (20 sources) Anticholinergic Start: 08-02-20 End: 04-25-20 take 2 puff(s) by inhalation once daily tiotropium bromide (SPIRIVA RESPIMAT) 2.5 mcg/actuation inhaler Indications: COPD, severe (HCC) Inhale 2 Puffs as instructed once daily. 1 Each 5 08/02/2023 04/25/2024 Discontinued (Course of therapy completed) Comment on above: Inhale 2 Puffs as in structed once daily. Problems Active Problems Problem Classification Problem Date Documented Date Episodic/Chronic Abdominal pain (2 sources) Abdominal pain; Translations: [Unspecified abdominal pain] 08-30-2020 Episodic Anxiety disorders (11 sources) Anxiety 12-16-2013 Chronic Asthma (20 sources) Asthma; Translations: [Unspecified asthma, uncomplicated] Onset: 07-21-2023 12-16-2013 Chronic Chronic obstructive pulmonary disease and bronchiectasis (20 sources) Chronic obstructive lung disease co-occurrent with acute bronchitis; Translations: [Chronic obstructive pulmonary disease with (acute) lower respiratory infection] Onset: 07-01-2006 01-27-2017 Chronic Diabetes mellitus without complication (2 sources) Increased glucose level; Translations: [Other abnormal glucose] Onset: 02-27-2025 02-27-2025 Episodic E Codes: Fall (4 sources) Fall; Translations: [Unspecified fall, initial encounter] Onset: 04-15-2023 Episodic Esophageal disorders (20 sources) Gastroesophageal reflux disease; Translations: [Gastro-esophageal reflux disease without esophagitis] Onset: 04-21-2011 04-21-2011 Chronic Essential hypertension (20 sources) Essential hypertension; Translations: [Essential (primary) hypertension] Onset: 07-21-2023 11-27-2022 Chronic Headache; including migraine (1 source) Headache; Translations: [Headache, unspecified] Onset: 04-15-2023 Episodic Immunizations and screening for infectious disease (5 sources) Viral screening status; Translations: [Encounter for screening for other viral diseases] Onset: 11-22-2024 Episodic Influenza (2 sources) Influenza due to Influenza B virus; Translations: [Influenza due to other identified influenza virus with other respiratory manifestations] 11-27-2022 Episodic Mood disorders (20 sources) Severe depressed bipolar I disorder with psychotic features; Translations: [Bipolar disorder, current episode depressed, severe, with psychotic features] Onset: 05-02-2007 01-28-2017 Chronic Mycoses (1 source) Candidiasis of mouth; Translations: [Candidal stomatitis] 02-06-2025 Episodic Nonspecific chest pain (5 sources) Chest pain; Translations: [Chest pain, unspecified] Onset: 05-03-2025 12-19-2018 Episodic Nutritional deficiencies (3 sources) Vitamin D deficiency; Translations: [Vitamin D deficiency, unspecified] Chronic Osteoarthritis (4 sources) Osteoarthritis of joint of right shoulder region; Translations: [Primary osteoarthritis, right shoulder] Onset: 07-21-2023 06-11-2023 Chronic Other aftercare (1 source) Post-discharge follow-up; Translations: [Encounter for follow-up examination after completed treatment for conditions other than malignant neoplasm] 05-10-2023 Episodic Other circulatory disease (1 source) Orthostatic hypotension; Translations: [Orthostatic hypotension] 02-06-2025 Episodic Other circulatory disease (1 source) Orthostatic hypotension; Translations: [Postural hypotension] Onset: 02-06-2025 Episodic Other congenital anomalies (20 sources) Congenital forefoot valgus; Translations: [Other congenital valgus deformities of feet] Onset: 02-02-2014 02-02-2014 Chronic Other connective tissue disease (13 sources) History of reverse prosthetic total arthroplasty of right shoulder; Translations: [Presence of right artificial shoulder joint] 06-17-2023 Chronic Other connective tissue disease (1 source) Presence of right artificial shoulder joint; Translations: [Status post reverse total replacement of right shoulder] Onset: 04-04-2024 Chronic Other connective tissue disease (17 sources) Recurrent falls ; Translations: [Repeated falls] Onset: 03-14-2025 Episodic Other connective tissue disease (2 sources) Impingement syndrome of right shoulder region; Translations: [Impingement syndrome of right shoulder] 06-17-2023 Episodic Other connective tissue disease (1 source) Impingement syndrome of right shoulder; Translations: [Impingement syndrome of right shoulder] Onset: 07-21-2023 Episodic Other connective tissue disease (1 source) Repeated falls; Translations: [Falls] Onset: 03-14-2025 Episodic Other eye disorders (1 source) Ulcer of cornea of right eye; Translations: [Unspecified corneal ulcer, right eye] Onset: 08-28-2022 Episodic Other fractures (1 source) Collapse of vertebra; Translations: [Collapsed vertebra, not elsewhere classified, site unspecified, initial encounter for fracture] Onset: 09-07-2024 Episodic Other hereditary and degenerative nervous system conditions (3 sources) Impaired cognition; Translations: [Mild cognitive impairment, so stated] 06-09-2024 Chronic Other hereditary and degenerative nervous system conditions (1 source) Mild cognitive impairment, so stated; Translations: [Cognitive impairment, mild, so stated] Onset: 06-09-2024 Chronic Other lower respiratory disease (1 source) Hyperventilation; Translations: [Hyperventilation] Onset: 06-23-2022 Episodic Other lower respiratory disease (3 sources) Dyspnea; Translations: [Shortness of breath] Episodic Other lower respiratory disease (8 sources) Multiple nodules of lung; Translations: [Other nonspecific abnormal finding of lung field] 11-09-2023 Episodic Other lower respiratory disease (2 sources) Persistent cough; Translations: [Persistent cough for 3 weeks or longer] 02-21-2024 Episodic Other lower respiratory disease (1 source) Cough; Translations: [Cough] 10-02-2020 Episodic Other nervous system disorders (2 sources) Other chronic pain; Translations: [Chronic right shoulder pain] Onset: 05-22-2020 Chronic Other nervous system disorders (1 source) Neuropathy; Translations: [Polyneuropathy, unspecified] 12-19-2024 Chronic Other nervous system disorders (1 source) Polyneuropathy, unspecified; Translations: [Neuropathy] Onset: 12-19-2024 Chronic Other nervous system disorders (10 sources) Impairment of balance; Translations: [Other abnormalities of gait and mobility] Onset: 03-14-2025 Episodic Other nervous system disorders (2 sources) Impaired cognition 12-19-2024 Episodic Other nervous system disorders (2 sources) Other abnormalities of gait and mobility; Translations: [Balance problem] Onset: 02-27-2025 Episodic Other non-traumatic joint disorders (15 sources) Shoulder pain; Translations: [Pain in left shoulder] Onset: 04-17-2015 04-17-2015 Episodic Other non-traumatic joint disorders (12 sources) Pain in right shoulder; Translations: [Pain in joint, shoulder region] Onset: 05-22-2020 10-25-2023 Episodic Other non-traumatic joint disorders (1 source) Hip pain; Translations: [Pain in left hip] 10-11-2023 Episodic Other nutritional; endocrine; and metabolic disorders (1 source) Weight loss; Translations: [Abnormal weight loss] Episodic Other nutritional; endocrine; and metabolic disorders (1 source) Unintentional weight loss; Translations: [Abnormal weight loss] 08-02-2023 Episodic Other screening for suspected conditions (not mental disorders or infectious disease) (20 sources) Patient encounter status; Translations: [Encounter for screening for malignant neoplasm of colon] Onset: 04-07-2012 04-07-2012 Episodic Other upper respiratory infections (3 sources) Acute upper respiratory infection; Translations: [Acute upper respiratory infection, unspecified] Onset: 08-02-2022 Episodic Residual codes; unclassified (1 source) Forgetful; Translations: [Other general symptoms and signs] Episodic Residual codes; unclassified (2 sources) Tobacco user; Translations: [Tobacco use] 04-02-2025 Episodic Respiratory failure; insufficiency; arrest (adult) (20 sources) Dependence on supplemental oxygen; Translations: [Dependence on supplemental oxygen] Onset: 05-21-2023 05-21-2023 Chronic Schizophrenia and other psychotic disorders (13 sources) Schizophrenia; Translations: [Schizophrenia, unspecified] 04-15-2014 Chronic Spondylosis; intervertebral disc disorders; other back problems (20 sources) Displacement of lumbar intervertebral disc without myelopathy; Translations: [Other intervertebral disc displacement, lumbar region] Onset: 08-17-2011 08-17-2011 Chronic Sprains and strains (4 sources) Sprain of ankle; Translations: [Sprain of unspecified ligament of unspecified ankle, initial encounter] Onset: 05-05-2022 Episodic Substance-related disorders (20 sources) Tobacco user; Translations: [Nicotine dependence, unspecified, uncomplicated] Onset: 06-30-2006 06-30-2006 Chronic Superficial injury; contusion (4 sources) Contusion of shoulder region; Translations: [Contusion of unspecified shoulder, subsequent encounter] Onset: 12-30-2023 Episodic Unclassified (1 source) Unknown / UNK(Unknown) Onset: 03-23-2017 Unclassified (11 sources) Acute emphysema (morphologic abnormality) 12-09-2013 Unclassified (1 source) Acute low back pain, unspecified back pain laterality, unspecified whether sciatica present; Translations: [Acute low back pain, unspecified back pain laterality, unspecified whether sciatica present] Onset: 05-02-2007 Unclassified (1 source) Degeneration of intervertebral disc of lumbar region, unspecified whether pain present; Translations: [Degeneration of intervertebral disc of lumbar region, unspecified whether pain present] Onset: 08-17-2011 Viral infection (3 sources) Disease caused by 2019-nCoV; Translations: [COVID-19] Onset: 06-26-2023 11-27-2022 Episodic Past or Other Problems Problem Classification Problem Date Documented Date Episodic/Chronic Acquired foot deformities (20 sources) Talipes cavus; Translations: [Congenital pes cavus, unspecified foot] Onset: 02-02-2014 02-02-2014 Episodic Conditions associated with dizziness or vertigo (20 sources) Benign paroxysmal positional vertigo; Translations: [Benign paroxysmal vertigo, unspecified ear] Onset: 04-06-2007 04-06-2007 Episodic Gastritis and duodenitis (20 sources) Acute gastritis; Translations: [Acute gastritis without bleeding] Onset: 04-19-2012 04-19-2012 Episodic Other and unspecified benign neoplasm (20 sources) Benign neoplasm of colon; Translations: [Benign neoplasm of colon, unspecified] Onset: 04-19-2012 04-19-2012 Episodic Other connective tissue disease (20 sources) Peroneal tendinitis of left lower limb; Translations: [Peroneal tendinitis, left leg] Onset: 02-02-2014 02-02-2014 Episodic Other connective tissue disease (20 sources) Achilles tendinitis; Translations: [Achilles tendinitis, unspecified leg] Onset: 02-02-2014 02-02-2014 Episodic Other lower respiratory disease (1 source) Other nonspecific abnormal finding of lung field; Translations: [Lung nodules] Onset: 07-11-2024 Episodic Other nervous system disorders (6 sources) Other symptoms and signs involving cognitive functions and awareness; Translations: [Other signs and symptoms involving cognition] Onset: 06-09-2024 06-09-2024 Episodic Other non-traumatic joint disorders (20 sources) Chronic pain of right upper limb; Translations: [Pain in right shoulder] Onset: 05-22-2020 Episodic Other non-traumatic joint disorders (20 sources) Arthralgia of the ankle and/or foot; Translations: [Pain in unspecified ankle and joints of unspecified foot] Onset: 04-18-2015 04-18-2015 Episodic Other non-traumatic joint disorders (20 sources) Pain in left shoulder; Translations: [Pain in joint, shoulder region] Onset: 04-17-2015 04-17-2015 Episodic Pulmonary heart disease (20 sources) H/O: pulmonary embolus; Translations: [Personal history of pulmonary embolism] Onset: 07-21-2023 07-21-2023 Episodic Residual codes; unclassified (20 sources) History of lumbar discectomy; Translations: [Other specified postprocedural states] Onset: 08-17-2011 08-17-2011 Episodic Residual codes; unclassified (20 sources) Family history of cancer of colon; Translations: [Family history of malignant neoplasm of digestive organs] Onset: 04-07-2012 04-07-2012 Episodic Screening and history of mental health and substance abuse codes (2 sources) Encounter for screening examination for other mental health and behavioral disorders; Translations: [Encounter for screening for depression] Onset: 06-09-2024 Episodic Spondylosis; intervertebral disc disorders; other back problems (20 sources) Low back pain; Translations: [Lumbago] Onset: 05-02-2007 05-02-2007 Episodic Unclassified (1 source) FOOT PAIN/FOOT SPRAIN Onset: 03-23-2017 Unclassified (1 source) Patient encounter status 04-02-2025 Results Test Name Value Interpretation Reference Range Facility Troponin T HS 4 HRon 025 Trop T High Sen Normal <=14 [facility] Comment on above: Result Comment: Canc elled via OM: Order cancelled - Patient discharged Performed By: #### L [id number] #### [facility] [address] [place], [place], [id number] Absolute lymphocyte countOrd ered By: ED PROVIDER on 04-28-2025 Lymphocytes Auto (Unsp spec) [#/Vol] 2.57 10*3/uL 0.83-4.51 [facility] Absolute neutrophil countOrd ered By: ED PROVIDER on 04-28-2025 Neutrophils (Bld) [#/Vol] 6.0 10*3/uL 2.0-7.7 [facility] Anion gap in Serum or Plasma Ordered By: ED PROVIDER on 04-28-2025 Anion gap [Moles/Vol] 12 mmol/L - [facility] Automated lymphocyte count a s percentage of total leukocytesOrdered By: ED PROVIDER on 04-28-2025 Lymphocytes/100 WBC Auto (Unsp spec) 26.0 % - [facility] BUN/creatinine ratioOrdered By: ED PROVIDER on 04-28-2025 Urea nitrogen/Creatinine [Mass ratio] 15.8 mg/mg 10- [facility] Basic Metabolic Profile (BMP )on 04-28-2025 BUN/CRE 15.8 RATIO Normal - [facility] Comment on above: Performed By: #### L 500.2500, L501.4021, L100.0100 #### [facility] [address] [place], [place], [id number] Calcium [Mass/Vol] 10.3 mg/dL Normal 7.6-11.0 [facility] Comment on above: Performed By: #### L 500.2500, L501.4021, L100.0100 #### [facility] [address] [place], [address] Chloride [Moles/Vol] 100 mmol/L Normal 98-108 [facility] Comment on above: Performed By: #### L 500.2500, L501.4021, L100.0100 #### [facility] [address] [place], [address] CO2 [Moles/Vol] 27.6 mmol/L Normal 21.0-32.0 [facility] Comment on above: Performed By: #### L 500.2500, L501.4021, L100.0100 #### [facility] [address] [place], [address] Creatinine [Mass/Vol] 0.73 mg/dL Normal 0.70-1.20 [facility] Comment on above: Performed By: #### L 500.2500, L501.4021, L100.0100 #### [facility] [address] [place], [address] ECRCL 60.32 ml/min Normal 50-250 [facility] Comment on above: Performed By: #### L 500.2500, L501.4021, L100.0100 #### [facility] [address] [place], [address] GAP 12 Normal 5-15 [facility] Comment on above: Performed By: #### L 500.2500, L501.4021, L100.0100 #### [facility] [address] [place], [address] GFR/1.73 sq M.predicted among non-blacks MDRD (S/P/Bld) [Vol rate/Area] 92 mL/min/{1.73_m2} Normal >60 [facility] Comment on above: Result Comment: mL/m in/1.73m2 CKD-EPI Creatinine Equation (2020) Performed By: #### L 500.2500, L501.4021, L100.0100 #### [facility] [address] [place], [address] Glucose [Mass/Vol] 131 mg/dL High 70-99 [facility] Comment on above: Performed By: #### L 500.2500, L501.4021, L100.0100 #### [facility] [address] [place], [address] Potassium [Moles/Vol] 3.7 mmol/L Normal 3.3-5.1 [facility] Comment on above: Performed By: #### L 500.2500, L501.4021, L100.0100 #### [facility] [address] [place], [address] Sodium [Moles/Vol] 140 mmol/L Normal 133-145 [facility] Comment on above: Performed By: #### L 500.2500, L501.4021, L100.0100 #### [facility] [address] [place], [address] Urea nitrogen [Mass/Vol] 12 mg/dL Normal 4-19 [facility] Comment on above: Performed By: #### L 500.2500, L501.4021, L100.0100 #### [facility] [address] [place], [address] Basophil percentageOrdered B y: ED PROVIDER on 04-28-2025 Basophils/100 WBC (Bld) 0.4 % 0-1 [facility] CBC W/Diff, Automatedon 04-13 Absolute Lymph 2.57 X10 3/uL Normal 0.83-4.51 [facility] Comment on above: Performed By: #### L 500.2500, L501.4021, L100.0100 #### [facility] [address] [place], [address] Absolute Neut 6.0 X10 3/uL Normal 2.0-7.7 [facility] Comment on above: Performed By: #### L 500.2500, L501.4021, L100.0100 #### [facility] [address] [place], [address] Basophils/100 WBC (Bld) 0.4 % Normal 0-1 [facility] Comment on above: Performed By: #### L 500.2500, L501.4021, L100.0100 #### [facility] [address] [place], [address] Eosinophils/100 WBC (Bld) 2.4 % Normal 0-5 [facility] Comment on above: Performed By: #### L 500.2500, L501.4021, L100.0100 #### [facility] [address] [place], [address] Erythrocyte distribution width (RBC) [Ratio] 14.4 % Normal 11.6-14.6 [facility] Comment on above: Performed By: #### L 500.2500, L501.4021, L100.0100 #### [facility] [address] [place], [address] Hematocrit (Bld) [Volume fraction] 40.4 % Normal 37-47 [facility] Comment on above: Performed By: #### L 500.2500, L501.4021, L100.0100 #### [facility] [address] [place], [address] Hemoglobin (Bld) [Mass/Vol] 14.1 g/dL Normal 12.0-15.0 [facility] Comment on above: Performed By: #### L 500.2500, L501.4021, L100.0100 #### [facility] [address] [place], [address] IG% 0.400 Normal 0.0-0.9 [facility] Comment on above: Result Comment: IG% - Immature Granulocytes (promyelocytes, myelocytes and metamyelocytes) > 1% indicates that a LEFT SHIFT is Present. Performed By: #### L 500.2500, L501.4021, L100.0100 #### [facility] [address] [place], [address] Lymphocytes/100 WBC (Bld) 26.0 % Normal 19-41 [facility] Comment on above: Performed By: #### L 500.2500, L501.4021, L100.0100 #### [facility] [address] [place], [address] MCH (RBC) [Entitic mass] 30.7 pg Normal 27.0-32.0 [facility] Comment on above: Performed By: #### L 500.2500, L501.4021, L100.0100 #### [facility] [address] [place], [address] MCHC (RBC) [Mass/Vol] 34.9 g/dL Normal 32-36 [facility] Comment on above: Performed By: #### L 500.2500, L501.4021, L100.0100 #### [facility] [address] [place], [address] MCV (RBC) [Entitic vol] 87.8 fL Normal 81-99 [facility] Comment on above: Performed By: #### L 500.2500, L501.4021, L100.0100 #### [facility] [address] [place], [address] Monocytes/100 WBC (Bld) 10.4 % High 0-10 [facility] Comment on above: Performed By: #### L 500.2500, L501.4021, L100.0100 #### [facility] [address] [place], [address] Neutrophils/100 WBC (Bld) 60.4 % Normal 47-70 [facility] Comment on above: Performed By: #### L 500.2500, L501.4021, L100.0100 #### [facility] [address] [place], [address] Nucleated RBC (Bld) [#/Vol] 0 10*3/uL Normal 0-5 [facility] Comment on above: Performed By: #### L 500.2500, L501.4021, L100.0100 #### [facility] [address] [place], [address] Platelet mean volume (Bld) [Entitic vol] 9.3 fL Normal 6.2-12.0 [facility] Comment on above: Performed By: #### L 500.2500, L501.4021, L100.0100 #### [facility] [address] [place], [address] Platelets (Bld) [#/Vol] 343 10*3/uL Normal 150-450 [facility] Comment on above: Performed By: #### L 500.2500, L501.4021, L100.0100 #### [facility] [address] [place], [address] RBC (Bld) [#/Vol] 4.60 10*6/uL Normal 4.2-5.4 [facility] Comment on above: Performed By: #### L 500.2500, L501.4021, L100.0100 #### [facility] [address] [place], [address] RDW SD 46.3 fl High 35.1-43.9 [facility] Comment on above: Performed By: #### L 500.2500, L501.4021, L100.0100 #### [facility] [address] [place], [address] WBC (Bld) [#/Vol] 9.9 10*3/uL Normal 4.4-11.0 [facility] Comment on above: Performed By: #### L 500.2500, L501.4021, L100.0100 #### [facility] [address] [place], [place], [address] Carbon dioxide, total [Moles /volume] in Central venous bloodOrdered By: ED PROVIDER on 04-28-2025 CO2 [Moles/Vol] 27.6 mmol/L 21.0-32.0 [facility] Chest 1 View (Portable)on Chest 1 View (Portable) [facility] Imaging Services [address] [place], [place] [address] Chest 1 View (Portable) MR#: [id number] Acct: [id number] Name: ALBANIA RAMSEY Rep #: [id number] : 1960 F 64 From: Juan Gomez MD PCP: Dr. Teresa Aguilar MD Status: PRE ER Study: Chest 1 View (Portable) Date of Exam: 04/28/25 Exam# [id number] Ordering Dr: Valarie,Ed P. PROCEDURE: CHEST 1 VIEW (PORTABLE) 04/28/2025 REASON FOR EXAM: CHEST PAIN TECHNIQUE: Frontal view of the chest. COMPARISON: 11/27/2022 FINDINGS: Lungs/Pleura: Clear. No pneumothorax or pleural effusion. Heart/Mediastinum: Normal in size. No vascular congestion. Bones/Soft tissues: Mild degenerative changes of the spine. Right shoulder arthroplasty hardware. RAD/Chest 1 View (Portable) IMPRESSION: No acute cardiopulmonary disease. Reading Location: [id number] CC: Dr. Teresa Aguilar MD; ED PHYSICIAN PROVIDER Teacher Physically Impaired: Signed Normal [facility] Chloride assayOrdered By: ED PROVIDER on 04-28-2025 Chloride [Moles/Vol] 100 mmol/L 98-108 [facility] Emergency Department Summary on 04-28-2025 Emergency Department Summary [facility] Medical Records Department [address] [place] [address] Emergency Department Summary 04/28/25 MR#: [id number] Acct: [id number] Name: ALBANIA RAMSEY Rep #: [id number] : 1960 64 From: Chester Alejandro MD PCP: Dr. Teresa Aguilar MD Status:REG ER Location: ED HPI History of Present Illness Chief Complaint: Chest Pain Informant: patient and EMS Narrative Narrative: 64-year-old female presenting with chest pain has been present for 3 days off-and-on. She states tends to last 30 minutes at a time or so, feels sharp nonpleuritic. She states it is mid chest sometimes more to the right or left, And epigastric. She states it is not really there right now. She states sometimes it is random but she remembers lying on her left side and triggering it several times. No associated symptoms such as nausea, vomiting, syncope, near syncope, palpitations, dyspnea. No recent cough or fevers. No leg swelling or pain. No history of DVT or PE. No recent long travel/immobilization/hosp italization or surgery. She has a history of COPD, she still smokes, no known heart history. [facility] Medical History Emphysema lung Essential (primary) hypertension COPD (chronic obstructive pulmonary disease) Schizophrenia Bipolar disease, chronic Tobacco dependence Home Medications ???Medication ???Instructions ???Recorded ???Last Taken ???Type Quetiapine Fumarate [Seroquel Xr] 600 mg PO QHS SLEEP 03/17/15 Unkn own History bupropion HCl 150 mg 24 hr tablet, 150 mg PO DAILY DEPRESSION 03/17 Unknown History extended release escitalopram oxalate 10 mg tablet 20 mg PO DAILY DEPRESSION 5 Unknown History gabapentin 300 mg capsule 300 mg PO TID PAIN 03/17/15 Unknow n History lamotrigine 100 mg tablet 100 mg PO BID DEPRESSION 03/17/15 12/19/18 04:30 History triazolam 0.25 mg tablet 0.25 mg ORAL QHS PRN PRN Insomnia 03/17/15 Unknown History benztropine 2 mg tablet 2 mg PO QHS TREMORS 06/30/15 Unkno wn History albuterol sulfate 2.5 mg/3 mL 2.5 mg inhalation Q4H PRN PRN 03/0 02/2712/19/18 04:30 History (0.083 %) solution for nebulization Wheezing fluticasone propionate 110 1 puff inhalation BID COPD 7 11/18/16 07:16 History mcg/actuation HFA aerosol inhaler (Flovent HFA) acetaminophen 500 mg tablet 1,000 mg (2 x 500 mg) PO Q6 Unknown Rx ibuprofen 600 mg tablet 600 mg PO TID PRN Pain 12/21/18 Un known Rx insulin lispro 100 unit/mL 0 unit (0 mL) subcut Q4H PRN PRN 0 12/21/18 Unknown Rx subcutaneous pen (Humalog KwikPen BG >/= 180, SEE PROTOCOL (U-100) Insulin) magnesium citrate 300 ml PO X1 ##1 08/29/20 Unknown Rx albuterol sulfate 90 mcg/actuation 2 puff inhalation Q4H PRN PRN Unknown Rx aerosol inhaler (Ventolin HFA) Wheezing ##1 nirmatrelvir 300 mg (150 mg See Rx Instructions PO .COMPLEX Unknown Rx x2)-ritonavir 100 mg tablet,dose #30 tabs pack (Paxlovid) oseltamivir 75 mg capsule 75 mg PO BID #10 CAPSULES 11/27/22 Unknown Rx dicyclomine 20 mg tablet 20 mg PO Q6H PRN PRN abdominal Unknown Rx discomfort #12 tabs pantoprazole 40 mg tablet,delayed 40 mg PO DAILY #14 tabs 04/28/25 Unknown Rx release Allergy/AdvReac Type Severity Reaction Status Date / Time doxycycline Allergy Hives Verified 04/28/25 20:54 erythromycin base Allergy Hives Verified 04/28/25 20:54 meperidine HCl (From Demerol) Allergy Hives Verified 04/28/25 20:54 morphine Allergy Hives Verified 04/28/25 20:54 prednisone Allergy Hives Verified 04/28/25 20:54 trazodone HCl (From Desyrel) Allergy Hives Verified 04/28/25 20:54 Surgical History (Updated 11/27/22 @ 09:[address] Sy Stewart, DO) History of hysterectomy Social History Smoking Status: Current every day smoker tobacco type: cigarettes ROS ROS ED Constitutional Constitutional ED: Denies chills or fever(s) Eyes Eyes: Denies change in vision or diplopia ENT ENT ED: Denies rhinorrhea or sore throat Cardiovascular Cardiovascular: Reports as per HPI and chest pain; Denies leg edema, palpitations or syncope Respiratory/Chest Respiratory/Chest: Denies cough or dyspnea Gastrointestinal Gastrointestinal: Denies abdominal pain, diarrhea, nausea or vomiting Genitourinary Genitourinary ED: Denies dysuria or hematuria Musculoskeletal Musculoskeletal: Denies back pain or neck pain Integumentary Denies abscess or rash Neurologic Neurologic: Denies headache(s), paresthesias or weakness Psychiatric Psychiatric: Denies anxiety or suicidal thoughts EXAM Physical Exam Const Vital Signs: 04/28/25 20:54 04/28/25 20:59 04/28/25 21:02 Temperature 98.3 (more content not included)... Normal [facility] Eosinophil percentageOrdered By: ED PROVIDER on 04-28-2025 Eosinophils/100 WBC (Bld) 2.4 % 0-5 [facility] Erythrocyte distribution wid th ratioOrdered By: ED PROVIDER on 04-28-2025 Erythrocyte distribution width (RBC) [Ratio] 14.4 % 11.6-14.6 [facility] Erythrocyte distribution wid th standard deviationOrdered By: ED PROVIDER on 04-28-2025 Erythrocyte distribution width (RBC) [Ratio] 46.3 fl High 35.1-43.9 [facility] Glomerular filtration rate ( GFR) estimation/1.73 sq m using serum, plasma, or whole bOrdered By: ED PROVIDER on 04-28-2025 GFR/1.73 sq M.predicted among non-blacks MDRD (S/P/Bld) [Vol rate/Area] 92 mL/min/{1.73_m2} >60 [facility] Comment on above: mL/min/1.73m2 CKD-EP I Creatinine Equation (2020) Hematocrit Auto (Bld) [Volum e fraction]Ordered By: ED PROVIDER on 04-28-2025 Hematocrit (Bld) [Volume fraction] 40.4 % 37-47 [facility] Hemoglobin measurementOrdere d By: ED PROVIDER on 04-28-2025 Hemoglobin (Bld) [Mass/Vol] 14.1 g/dL 12.0-15.0 [facility] Immature granulocytes/100 WB C Auto (Bld)Ordered By: ED PROVIDER on 04-28-2025 Immature granulocytes/100 WBC (Bld) 0.400 % 0.0-0.9 [facility] Comment on above: IG% - Immature Granu locytes (promyelocytes, myelocytes and metamyelocytes) > 1% indicates that a LEFT SHIFT is Present. L501.4021on 04-28-2025 Trop T High Sen 9 ng/L Normal <=14 [facility] Comment on above: Performed By: #### L 500.2500, L501.4021, L100.0100 #### [facility] [address] [place], [address] MCV (mean corpuscular volume ) determinationOrdered By: ED PROVIDER on 04-28-2025 MCV (RBC) [Entitic vol] 87.8 fL 81-99 [facility] Mean corpuscular hemoglobin (MCH) determinationOrdered By: ED PROVIDER on 04-28-2025 MCH (RBC) [Entitic mass] 30.7 pg 27.0-32.0 [facility] Mean corpuscular hemoglobin concentration (MCHC) determinationOrdered By: ED PROVIDER on 04-28-2025 MCHC (RBC) [Mass/Vol] 34.9 g/dL 32-36 [facility] Mean platelet volume determi nationOrdered By: ED PROVIDER on 04-28-2025 Platelet mean volume (Bld) [Entitic vol] 9.3 fL 6.2-12.0 [facility] Monocyte percentageOrdered B y: ED PROVIDER on 04-28-2025 Monocytes/100 WBC (Bld) 10.4 % High 0-10 [facility] Neutrophil percentageOrdered By: ED PROVIDER on 04-28-2025 Neutrophils/100 WBC (Bld) 60.4 % 47-70 [facility] Nucleated red blood cell per centageOrdered By: ED PROVIDER on 04-28-2025 Nucleated RBC/100 WBC (Bld) [Ratio] 0 % 0-5 [facility] Platelet countOrdered By: ED PROVIDER on 04-28-2025 Platelets (Bld) [#/Vol] 343 10*3/uL 150-450 [facility] Potassium measurement (mass/ volume)Ordered By: ED PROVIDER on 04-28-2025 Potassium (Unsp spec) [Mass/Vol] 3.7 mmol/L 3.3-5.1 [facility] RBC Auto (Bld) [#/Vol]Ordere d By: ED PROVIDER on 04-28-2025 RBC (Bld) [#/Vol] 4.60 10*6/uL 4.2-5.4 [facility] Serum creatinine measurement (mass/volume)Ordered By: ED PROVIDER on 04-28-2025 Creatinine [Mass/Vol] 0.73 mg/dL 0.70-1.20 [facility] Serum glucose measurement (m ass/volume)Ordered By: ED PROVIDER on 04-28-2025 Glucose [Mass/Vol] 131 mg/dL High 70-99 [facility] Serum or plasma calcium hayde urement (mass/volume)Ordered By: ED PROVIDER on 04-28-2025 Calcium [Mass/Vol] 10.3 mg/dL 7.6-11.0 [facility] Serum or plasma urea nitroge n measurement (mass/volume)Ordered By: ED PROVIDER on 04-28-2025 Urea nitrogen [Mass/Vol] 12 mg/dL 4-19 [facility] Sodium levelOrdered By: ED P JONATHANVIDER on 04-28-2025 Sodium [Moles/Vol] 140 mmol/L 133-145 [facility] Troponin T HS 2 HRon 025 Trop T High Sen Normal <=14 [facility] Comment on above: Result Comment: Canc elled via OM: Order cancelled - Patient discharged Performed By: #### L 499.0042 #### [facility] [place], [address] Troponin T.cardiac [Mass/vol ume] in Serum or Plasma by High sensitivity methodOrdered By: ED PROVIDER on 04-28-2025 Troponin T.cardiac High sensitivity method [Mass/Vol] 9 ng/L <14 [facility] White blood cell (WBC) count Ordered By: ED PROVIDER on 04-28-2025 WBC (Bld) [#/Vol] 9.9 10*3/uL 4.4-11.0 [facility] ) -- ALBANIA RAMSEY ([id number]) 1960 F Date Time Provider Department 03/30/25 10:00 AM KARIN LLOYD PULMWS During your visit today, we recorded the following information about you: Pulse Respiration Blood pressure Weight 100/minute 20/minute 108/72 51.7 kg Karin Lloyd APRN.[facility] 03/30/2025 10:32 AM Signed Pulmonary Medicine Patients name: Albania Ramsey PCP: [...] continuous PAST MEDICAL HISTORY Diagnosis Date Asthma ([facility]) Bipolar I disorder, most recent episode (or current) unspecified Blood dyscrasia Chronic obstructive pulmonary disease (COPD) ([facility]) Dysthymic disorder Depression (non-psychotic) Lumbago Osteoarthritis Pulmonary embolus ([facility]) 25 years prior Schizophrenia ([facility]) follows with Dr Bill at [facility] Snoring Tobacco use disorder 1/2 ppd [...] Pneumovax 23 - xx Influenza - xx CO (more content not included)... Normal [facility] CNTHERAPYon 03-19-2025 CNTHERAPY OT/PT/Speech Visit ( PTWS) -- ALBANIA RAMSEY ([id number]) 1960 F Date Time Provider Department 03/19/25 8:45 AM MAIA BEASLEY PTISIDRO Date Time Provider Department Center 03/19/2025 8:45 AM [id number] BEASLEY Reason for Visit: Physical Therapy [503] Primary Visit Diagnosis:Falls [R29.6] Other Visit Diagnosis:Balance problem [R26.89] Allergies As of Date: 03/19/2025 Noted Allergy Reaction DEMORAL (MEPERIDINE) 02/03/2008 2 - Rash DESYREL (TRAZODONE HCL) 06/30/2006 2 - Rash DOXYCYCLINE 07/15/2010 4 - Hives ERYTHROMYCIN 06/30/2006 2 - Rash LEVAQUIN (LEVOFLOXACIN) 03/29/2024 2 - Rash MORPHINE 06/30/2006 7 - Swelling PREDNISONE 05/13/2010 2 - Rash Date Reviewed: 03/01/2025 Reviewed by: Delmis Ramirez, bread icer - Fully Assessed Prescriptions as of 03/19/2025 - meclizine (ANTIVERT) 25 mg tab Take 1 tablet by mouth every 6 hours as needed (dizziness). - cholecalciferol, Vitamin D3, (VITAMIN D3) 1,250 mcg (50,000 unit) cap capsule Take 1 capsule by mouth one time a week. - pantoprazole DR (PROTONIX) 20 mg tablet Take 1 tablet by mouth daily before breakfast. Take on empty stomach, 1/2 hr before meal. - fluticasone-salmeterol (ADVAIR DISKUS) 250-50 mcg/dose inhaler Inhale 1 Puff as instructed two times a day. - OXYGEN, HOME THERAPY, 2 L/min by Nasal Cannula route continuous. - ondansetron (ZOFRAN) 4 mg tablet Take 1 tablet by mouth every 8 hours as needed for up to 10 doses. - melatonin 10 mg tab Take 1 [...] as needed for Wheezing/Shortness of Breath. - sertraline (ZOLOFT) 50 mg tablet Take 50 mg by mouth once daily. - benztropine (COGENTIN) 1 mg tablet Take 1 mg by mouth twice daily. Normal [facility] [id number] 03-14-2025 [id number] O ID: [id number] Author: ROBIN LOUIS PT Service: ? Author Type: Physical Therapist Type: [id number] Filed: 03/14/2025 09:53 Note Text: [facility] Therapy Physical Therapy Plan of Care Certification Patient Name: Albania Ramsey : 1960 [facility] #: [id number] Date: 03/14/2025 To: Teresa Aguilar MD From Therapist: Robin Louis PT RE: Patient Certification/ Recertification Your review, approval and electronic signature are required in order to comply with Payor: MEDICARE / Plan: MEDICARE A AND B / Product Type: Medicare / regulations. The identified Physical Therapy PLAN OF CARE for the patient is as follows: R26.89 Balance problem (primary encounter diagnosis) R29.6 Falls R26.89 Balance disorder PLAN OF CARE: Assessment: Albania Ramsey presents [...] tandem stance to reflect decreased fall risk. Bay in home exercise program including cardiovascular exercise. [...] Planned: 16 Planned Treatment Interventions: Therapeutic exercise (19389), Neuromuscular re-education (15225), Therapeutic activities (56898), Self-correction management (94108), Gait Training (91649), Patient/Family/Caregiver Education, Body Mechanics Training, General Conditioning, Functional training PLAN FOR NEXT VISIT: Review, correct, and progress HEP to tolerance for functional LE strength and endurance. Begin balance and gait training to improve safety and effectiveness of functional mobility. Patient demonstrates good understanding of plan of care and treatment. The above goals and plan of care were discussed and agreed upon by patient/family. For further details regarding this patient refer to the Physical Therapy electronically documented visit dated 03/14/2025. Provider Attestation I have reviewed the treatment plan for Albania Ramsey, [facility]# [id number] for the period of 03/14/25 -- 05/09/25, established on 03/14/2025. Signature certifies the need for therapy services. Normal [facility] CNTHERAPYon 03-14-2025 CNTHERAPY OT/PT/Speech Visit ( PTWS) -- ALBANIA RAMSEY ([id number]) 1960 F Date Time Provider Department 03/14/25 9:00 AM ROBIN LOUIS PTISIDRO Date Time Provider Department Center 03/14/2025 9:00 AM [id number], BRENT PTWS [facility] Reason for Visit: PT Eval [747] Physical Therapy [503] Primary Visit Diagnosis:Balance problem [R26.89] Other Visit Diagnoses:Falls [R29.6] Balance disorder [R26.89] Allergies As of Date: 03/14/2025 Noted Allergy Reaction DEMORAL (MEPERIDINE) 02/03/2008 2 - Rash DESYREL (TRAZODONE HCL) 06/30/2006 2 - Rash DOXYCYCLINE 07/15/2010 4 - Hives ERYTHROMYCIN 06/30/2006 2 - Rash LEVAQUIN (LEVOFLOXACIN) 03/29/2024 2 - Rash MORPHINE 06/30/2006 7 - Swelling PREDNISONE 05/13/2010 2 - Rash Date Reviewed: 03/01/2025 Reviewed by: Delmis Ramirez, bread icer - Fully Assessed Prescriptions as of 03/14/2025 - meclizine (ANTIVERT) 25 mg tab Take 1 tablet by mouth every 6 hours as needed (dizziness). - cholecalciferol, Vitamin D3, (VITAMIN D3) 1,250 mcg (50,000 unit) cap capsule Take 1 capsule by mouth one time a week. - pantoprazole DR (PROTONIX) 20 mg tablet Take 1 tablet by mouth daily before breakfast. Take on empty stomach, 1/2 hr before meal. - fluticasone-salmeterol (ADVAIR DISKUS) 250-50 mcg/dose inhaler Inhale 1 Puff as instructed two times a day. - OXYGEN, HOME THERAPY, 2 L/min by Nasal Cannula route continuous. - ondansetron (ZOFRAN) 4 mg tablet Take 1 tablet by mouth every 8 hours as needed for up to 10 doses. - melatonin 10 mg tab Take 1 [...] as needed for Wheezing/Shortness of Breath. - sertraline (ZOLOFT) 50 mg tablet Take 50 mg by mouth once daily. - benztropine (COGENTIN) 1 mg tablet Take 1 mg by mouth twice daily. Normal [facility]y 03-01-2025 NEALN Telephone (FAMPWS) -- ALBANIA RAMSEY ([id number]) 1960 F Date Time Provider Department 03/01/25 TERESA AGUILAR During your visit today, we recorded the following information about you: Hernesto Scott RN 03/01/2025 1:22 PM Signed Saibra from [facility] called in and was requesting a refill on Pt's Cyclobenzaprine. I let her know that provider discontinued that on 02/27/25. She said she would remove it from Pt's medication list. Hernesto Scott RN Allergies As of Date: 03/01/2025 Noted Allergy Reaction DEMORAL (MEPERIDINE) 02/03/2008 2 - Rash DESYREL (TRAZODONE HCL) 06/30/2006 2 - Rash DOXYCYCLINE 07/15/2010 4 - Hives ERYTHROMYCIN 06/30/2006 2 - Rash LEVAQUIN (LEVOFLOXACIN) 03/29/2024 2 - Rash MORPHINE 06/30/2006 7 - Swelling PREDNISONE 05/13/2010 2 - Rash Date Reviewed: 03/01/2025 Reviewed by: Delmis Ramirez, bread icer - Fully Assessed Reason for Visit: Medication Request [138] Prescriptions as of 03/01/2025 - cholecalciferol, Vitamin D3, (VITAMIN D3) 1,250 mcg (50,000 unit) cap capsule Take 1 capsule by mouth one time a week. - pantoprazole DR (PROTONIX) 20 mg tablet Take 1 tablet by mouth daily before breakfast. Take on empty stomach, 1/2 hr before meal. - meclizine (ANTIVERT) 25 mg tab Take 1 tablet by mouth every 6 hours as needed (dizziness). - fluticasone-salmeterol (ADVAIR DISKUS) 250-50 mcg/dose inhaler Inhale 1 Puff as instructed two times a day. - OXYGEN, HOME THERAPY, 2 L/min by Nasal Cannula route continuous. - ondansetron (ZOFRAN) 4 mg tablet Take 1 tablet by mouth every 8 hours as needed for up to 10 doses. - melatonin 10 mg tab Take 1 [...] as needed for Wheezing/Shortness of Breath. - sertraline (ZOLOFT) 50 mg tablet Take 50 mg by mouth once daily. - benztropine (COGENTIN) 1 mg tablet Take 1 mg by mouth twice daily. Problem List As Of Date 03/01/2025 Noted Resolved TOBACCO USE DISORDER [F17.200] Acute bronchitis with chronic obstructive pulmo*07/01/2006 BENIGN PARXYSMAL VERTIGO [H81.10] 04/06/2007 LUMBAGO [M54.50] 05/02/2007 Bipolar I disorder, most recent episode (or cur*05/02/2007 GERD (gastroesophageal reflux disease) [K21.9] 04/21/2011 History of lumbar discectomy [Z98.890] 08/17/2011 Lumbar disc displacement without myelopathy [M5*08/17/2011 DDD (degenerative disc disease), lumbar [M51.36*08/17/2011 Lumbar radiculopathy [M54.16] 11/02/2011 Lumbar spondylosis [M47.816] [...] artificial shoulder joint [Z9*08/18/2023 Encounter Status:Closed by HERNESTO SCOTT on 03/01/25 [facility] MR Brain WO contraston 03-01 * * *Final Report* * * DATE OF EXAM: Mar 01 2025 7:43AM [id number] [id number] - MRI BRAIN W QUANT WO IVCON / PROCEDURE REASON: multiple diagnoses * * * * Physician Interpretation * * * * EXAMINATION: MRI BRAIN W QUANT WO IVCON, MRI 3D BRAIN QUANT CLINICAL HISTORY: Cognitive changes. TECHNIQUE: Axial RISA FLAIR, RISA T2, diffusion and susceptibility weighted imaging without contrast, using the ADNI dementia protocol and 3-D post-processing using the NeuroQuant software at an independent workstation with concurrent physician supervision and images were created, reviewed and archived. MQ: [email or web address] COMPARISON: None RESULT: QUALITATIVE: Acute Intracranial Process: None. Chronic Intracranial Process: Scattered patchy areas of increased T2 and FLAIR signal are present in the supratentorial white matter which is a nonspecific finding but likely represents mild chronic microvascular ischemia. Number of chronic lacunar infarcts: None Location of chronic lacunar infarcts: Not applicable Age related white matter changes (ARWMC) rating: White matter lesions: 1 Basal ganglia lesions: 0 Prior intracranial hemorrhage: Parenchymal microhemorrhages: 0 Other (siderosis/macrohemorrhage s (>10mm): Not Applicable Amyloid Related Imaging Abnormalities: ARIA-E: N/A ARIA-H Microhemorrhage: N/A ARIA-H Siderosis: N/A Qualitative brain and hippocampal volume loss for age: Cortex: Normal and symmetric White Matter: Normal and symmetric Hippocampi: Normal and Symmetric Ventricles: Commensurate with volume loss. Brain Parenchymal Signal and Morphology: The brain parenchyma is otherwise within normal limits of signal and morphology. There is no evidence of an intracranial mass or extraaxial fluid collection. Other Significant Findings: None. QUANTITATIVE: Exam Quality: Adequate for volumetric analysis. Segmentation: Accurate segmentation by visual inspection Quantitative Data: Total Hippocampal Volume: Percentile for Age: 65 Asymmetry Index: -2.39 Inferior Lateral Vent Volume: Percentile for age: 63 Asymmetry Index: -18.1 Superior Lateral Vent Volume: Percentile for age: 79 Asymmetry Index: -9.92 Temporal Lobe Cortex Volume: Temporal Lobe Percentile for Age: 1 Temporal Lobe Asymmetry Index: 2.58 Frontal Lobe Cortex Volume: Frontal Lobe Percentile for Age: 7 Frontal Lobe Asymmetry Index: -3.81 Parietal Lobe Cortex Volume: Parietal Lobe Percentile for Age:10 Occipital Lobe Cortex Volume: Occipital Lobe Percentile for Age: 29 Whole Brain Volume Brain Percentile for Age: 85 Concordance between qualitative and quantitative hippocampal volume assessment: Concordant Change in brain volumes: No previous volumetric study for comparison See below for comparison of brain volumes in relation to the prior volumetric study: Not applicable. The prior study was reprocessed with the current algorithm version for adequate comparison. Please note that small variations may be due to standard measurement error. Brain Volume: Current percentile: N/A Previous percentile: N/A Hippocampal Volume: Current percentile: N/A Previous percentile: N/A Superior Lateral Ventricle Volume Change: Current percentile: N/A Previous percentile: N/A Inferior Lateral Ventricle Volume Change: Current percentile: N/A Previous percentile: N/A Mean hippocampal volume loss among normal elderly: 0.7% per year, (-0.3 to 1.7; Jennie 2008; also Jose Armando 2010). DIVISION OF RADIOLOGY Provider, [facility] - 03/01/2025 * * *Final Report* * * DATE OF EXAM: Mar 01 2025 7:43AM [id number] [id number] - MRI BRAIN W QUANT WO IVCON / PROCEDURE REASON: multiple diagnoses * * * * Physician Interpretation * * * * EXAMINATION: MRI BRAIN W QUANT WO IVCON, MRI 3D BRAIN QUANT CLINICAL HISTORY: Cognitive changes. TECHNIQUE: Axial RISA FLAIR, RISA T2, diffusion and susceptibility weighted imaging without contrast, using the ADNI dementia protocol and 3-D post-processing using the [email or web address] software at an independent workstation with concurrent physician supervision and images were created, reviewed and archived. MQ: [email or web address] COMPARISON: None RESULT: QUALITATIVE: Acute Intracranial Process: None. Chronic Intracranial Process: Scattered patchy areas of increased T2 and FLAIR signal are present in the supratentorial white matter which is a nonspecific finding but likely represents mild chronic microvascular ischemia. Number of chronic lacunar infarcts: None Location of chronic lacunar infarcts: Not applicable Age related white matter changes (ARWMC) rating: White matter lesions: 1 Basal ganglia lesions: 0 Prior intracranial hemorrhage: Parenchymal microhemorrhages: 0 Other (siderosis/macrohemorrhage s (>10mm): Not Applicable Amyloid Related Imaging Abnormalities: ARIA-E: N/A ARIA-H Microhemorrhage: N/A ARIA-H Siderosis: N/A Qualitative brain and hippocampal volume loss for age: Cortex: Normal and symmetric White Matter: Normal and symmetric Hippocampi: Normal and Symmetric Ventricles: Commensurate with volume loss. Brain Parenchymal Signal and Morphology: The brain parenchyma is otherwise within normal limits of signal and morphology. There is no evidence of an intracranial mass or extraaxial fluid collection. Other Significant Findings: None. QUANTITATIVE: Exam Quality: Adequate for volumetric analysis. Segmentation: Accurate segmentation by visual inspection Quantitative Data: Total Hippocampal Volume: Percentile for Age: 65 Asymmetry Index: -2.39 Inferior Lateral Vent Volume: Percentile for age: 63 Asymmetry Index: -18.1 Superior Lateral Vent Volume: Percentile for age: 79 Asymmetry Index: -9.92 Temporal Lobe Cortex Volume: Temporal Lobe Percentile for Age: 1 Temporal Lobe Asymmetry Index: 2.58 Frontal Lobe Cortex Volume: Frontal Lobe Percentile for Age: 7 Frontal Lobe Asymmetry Index: -3.81 Parietal Lobe Cortex Volume: Parietal Lobe Percentile for Age:10 Occipital Lobe Cortex Volume: Occipital Lobe Percentile for Age: 29 Whole Brain Volume Brain Percentile for Age: 85 Concordance between qualitative and quantitative hippocampal volume assessment: Concordant Change in brain volumes: No previous volumetric study for comparison See below for comparison of brain volumes in relation to the prior volumetric study: Not applicable. The prior study was reprocessed with the current algorithm version for adequate comparison. Please note that small variations may be due to standard measurement error. Brain Volume: Current percentile: N/A Previous percentile: N/A Hippocampal Volume: Current percentile: N/A Previous percentile: N/A Superior Lateral Ventricle Volume Change: Current percentile: N/A Previous percentile: N/A Inferior Lateral Ventricle Volume Change: Current percentile: N/A Previous percentile: N/A Mean hippocampal volume loss among normal elderly: 0.7% per year, (-0.3 to 1.7; Jennie 2008; also Jose Armando 2010). IMPRESSION IMPRESSION: 1. No evidence of an acute intracranial process or intracranial mass. 2. No significant generalized volume loss. 3. Hippocampal volumes at the 65th percentile when compared to age matched normal controls by quantitative analysis. However temporal cortical volume is at the 1st percentile. 4. Mild white matter disease which is nonspecific but likely reflective of chronic microvascular ischemia. 5. No evidence of parenchymal microhemorrhages by MRI. 6. Age-matched reference charts measure total hippocampal volume (% of intracranial volume). See results from the analysis charts for details. REFERENCES: White Matter Lesions: 0 = No lesions, including symmetrical, well-defined caps or bands 1 = Focal Lesions 2 = Beginning of [place] 3 = Diffuse Involvement of Entire Region Basal Ganglia Lesions: 0 = No Lesions 1 = 1 Focal Lesion (>5mm) 2 = >1 Focal Lesion (>5mm) 3 = Confluent Lesions Jose Armando Sol, et al. The clinical use of structural MRI in Alzheimer disease. Nature Reviews Neurology 6;67 (2010). Jennie et al. Validation of a fully automated 3D hippocampal segmentation method using subjects with Alzheimer's disease mild cognitive impairment, and elderly controls. Neuroimage 43;59 (2008). Jennifer et al. A New Rating Scale (more content not included)... [facility] MR Unspecified body region 3 D post processingon 03-01-2025 * * *Final Report* * * DATE OF EXAM: Mar 01 2025 7:43AM [id number] [id number] - MRI 3D BRAIN QUANT / PROCEDURE REASON: multiple diagnoses * * * * Physician Interpretation * * * * EXAMINATION: MRI BRAIN W QUANT WO IVCON, MRI 3D BRAIN QUANT CLINICAL HISTORY: Cognitive changes. TECHNIQUE: Axial RISA FLAIR, RISA T2, diffusion and susceptibility weighted imaging without contrast, using the ADNI dementia protocol and 3-D post-processing using the [email or web address] software at an independent workstation with concurrent physician supervision and images were created, reviewed and archived. MQ: [email or web address] COMPARISON: None RESULT: QUALITATIVE: Acute Intracranial Process: None. Chronic Intracranial Process: Scattered patchy areas of increased T2 and FLAIR signal are present in the supratentorial white matter which is a nonspecific finding but likely represents mild chronic microvascular ischemia. Number of chronic lacunar infarcts: None Location of chronic lacunar infarcts: Not applicable Age related white matter changes (ARWMC) rating: White matter lesions: 1 Basal ganglia lesions: 0 Prior intracranial hemorrhage: Parenchymal microhemorrhages: 0 Other (siderosis/macrohemorrhage s (>10mm): Not Applicable Amyloid Related Imaging Abnormalities: ARIA-E: N/A ARIA-H Microhemorrhage: N/A ARIA-H Siderosis: N/A Qualitative brain and hippocampal volume loss for age: Cortex: Normal and symmetric White Matter: Normal and symmetric Hippocampi: Normal and Symmetric Ventricles: Commensurate with volume loss. Brain Parenchymal Signal and Morphology: The brain parenchyma is otherwise within normal limits of signal and morphology. There is no evidence of an intracranial mass or extraaxial fluid collection. Other Significant Findings: None. QUANTITATIVE: Exam Quality: Adequate for volumetric analysis. Segmentation: Accurate segmentation by visual inspection Quantitative Data: Total Hippocampal Volume: Percentile for Age: 65 Asymmetry Index: -2.39 Inferior Lateral Vent Volume: Percentile for age: 63 Asymmetry Index: -18.1 Superior Lateral Vent Volume: Percentile for age: 79 Asymmetry Index: -9.92 Temporal Lobe Cortex Volume: Temporal Lobe Percentile for Age: 1 Temporal Lobe Asymmetry Index: 2.58 Frontal Lobe Cortex Volume: Frontal Lobe Percentile for Age: 7 Frontal Lobe Asymmetry Index: -3.81 Parietal Lobe Cortex Volume: Parietal Lobe Percentile for Age:10 Occipital Lobe Cortex Volume: Occipital Lobe Percentile for Age: 29 Whole Brain Volume Brain Percentile for Age: 85 Concordance between qualitative and quantitative hippocampal volume assessment: Concordant Change in brain volumes: No previous volumetric study for comparison See below for comparison of brain volumes in relation to the prior volumetric study: Not applicable. The prior study was reprocessed with the current algorithm version for adequate comparison. Please note that small variations may be due to standard measurement error. Brain Volume: Current percentile: N/A Previous percentile: N/A Hippocampal Volume: Current percentile: N/A Previous percentile: N/A Superior Lateral Ventricle Volume Change: Current percentile: N/A Previous percentile: N/A Inferior Lateral Ventricle Volume Change: Current percentile: N/A Previous percentile: N/A Mean hippocampal volume loss among normal elderly: 0.7% per year, (-0.3 to 1.7; Jennie 2008; also Jose Armando 2010). DIVISION OF RADIOLOGY Provider, [facility] - 03/01/2025 * * *Final Report* * * DATE OF EXAM: Mar 01 2025 7:43AM BRM [id number] - MRI 3D BRAIN QUANT / PROCEDURE REASON: multiple diagnoses * * * * Physician Interpretation * * * * EXAMINATION: MRI BRAIN W QUANT WO IVCON, MRI 3D BRAIN QUANT CLINICAL HISTORY: Cognitive changes. TECHNIQUE: Axial RISA FLAIR, RISA T2, diffusion and susceptibility weighted imaging without contrast, using the ADNI dementia protocol and 3-D post-processing using the [email or web address] software at an independent workstation with concurrent physician supervision and images were created, reviewed and archived. MQ: [email or web address] COMPARISON: None RESULT: QUALITATIVE: Acute Intracranial Process: None. Chronic Intracranial Process: Scattered patchy areas of increased T2 and FLAIR signal are present in the supratentorial white matter which is a nonspecific finding but likely represents mild chronic microvascular ischemia. Number of chronic lacunar infarcts: None Location of chronic lacunar infarcts: Not applicable Age related white matter changes (ARWMC) rating: White matter lesions: 1 Basal ganglia lesions: 0 Prior intracranial hemorrhage: Parenchymal microhemorrhages: 0 Other (siderosis/macrohemorrhage s (>10mm): Not Applicable Amyloid Related Imaging Abnormalities: ARIA-E: N/A ARIA-H Microhemorrhage: N/A ARIA-H Siderosis: N/A Qualitative brain and hippocampal volume loss for age: Cortex: Normal and symmetric White Matter: Normal and symmetric Hippocampi: Normal and Symmetric Ventricles: Commensurate with volume loss. Brain Parenchymal Signal and Morphology: The brain parenchyma is otherwise within normal limits of signal and morphology. There is no evidence of an intracranial mass or extraaxial fluid collection. Other Significant Findings: None. QUANTITATIVE: Exam Quality: Adequate for volumetric analysis. Segmentation: Accurate segmentation by visual inspection Quantitative Data: Total Hippocampal Volume: Percentile for Age: 65 Asymmetry Index: -2.39 Inferior Lateral Vent Volume: Percentile for age: 63 Asymmetry Index: -18.1 Superior Lateral Vent Volume: Percentile for age: 79 Asymmetry Index: -9.92 Temporal Lobe Cortex Volume: Temporal Lobe Percentile for Age: 1 Temporal Lobe Asymmetry Index: 2.58 Frontal Lobe Cortex Volume: Frontal Lobe Percentile for Age: 7 Frontal Lobe Asymmetry Index: -3.81 Parietal Lobe Cortex Volume: Parietal Lobe Percentile for Age:10 Occipital Lobe Cortex Volume: Occipital Lobe Percentile for Age: 29 Whole Brain Volume Brain Percentile for Age: 85 Concordance between qualitative and quantitative hippocampal volume assessment: Concordant Change in brain volumes: No previous volumetric study for comparison See below for comparison of brain volumes in relation to the prior volumetric study: Not applicable. The prior study was reprocessed with the current algorithm version for adequate comparison. Please note that small variations may be due to standard measurement error. Brain Volume: Current percentile: N/A Previous percentile: N/A Hippocampal Volume: Current percentile: N/A Previous percentile: N/A Superior Lateral Ventricle Volume Change: Current percentile: N/A Previous percentile: N/A Inferior Lateral Ventricle Volume Change: Current percentile: N/A Previous percentile: N/A Mean hippocampal volume loss among normal elderly: 0.7% per year, (-0.3 to 1.7; Jennie 2008; also Jose Armando 2010). IMPRESSION IMPRESSION: 1. No evidence of an acute intracranial process or intracranial mass. 2. No significant generalized volume loss. 3. Hippocampal volumes at the 65th percentile when compared to age matched normal controls by quantitative analysis. However temporal cortical volume is at the 1st percentile. 4. Mild white matter disease which is nonspecific but likely reflective of chronic microvascular ischemia. 5. No evidence of parenchymal microhemorrhages by MRI. 6. Age-matched reference charts measure total hippocampal volume (% of intracranial volume). See results from the analysis charts for details. REFERENCES: White Matter Lesions: 0 = No lesions, including symmetrical, well-defined caps or bands 1 = Focal Lesions 2 = Beginning of [place] 3 = Diffuse Involvement of Entire Region Basal Ganglia Lesions: 0 = No Lesions 1 = 1 Focal Lesion (>5mm) 2 = >1 Focal Lesion (>5mm) 3 = Confluent Lesions Jose Armando Sol et al. The clinical use of structural MRI in Alzheimer disease. Nature Reviews Neurology 6;67 (2010). Jennie et al. Validation of a fully automated 3D hippocampal segmentation method using subjects with Alzheimer's disease mild cognitive impairment, and elderly controls. Neuroimage 43;59 (2008). Jennifer et al. A New Rating Scale for Age- (more content not included)... [facility] MRI 3D BRAIN QUANTon 025 MRI 3D BRAIN QUANT * * *Final Report* * * DATE OF EXAM: Mar 01 2025 7:43AM BRM [id number] - MRI 3D BRAIN QUANT / PROCEDURE REASON: multiple diagnoses * * * * Physician Interpretation * * * * EXAMINATION: MRI BRAIN W QUANT WO IVCON, MRI 3D BRAIN QUANT CLINICAL HISTORY: Cognitive changes. TECHNIQUE: Axial RISA FLAIR, RISA T2, diffusion and susceptibility weighted imaging without contrast, using the ADNI dementia protocol and 3-D post-processing using the [email or web address] software at an independent workstation with concurrent physician supervision and images were created, reviewed and archived. MQ: [email or web address] COMPARISON: None RESULT: QUALITATIVE: Acute Intracranial Process: None. Chronic Intracranial Process: Scattered patchy areas of increased T2 and FLAIR signal are present in the supratentorial white matter which is a nonspecific finding but likely represents mild chronic microvascular ischemia. Number of chronic lacunar infarcts: None Location of chronic lacunar infarcts: Not applicable Age related white matter changes (ARWMC) rating: White matter lesions: 1 Basal ganglia lesions: 0 Prior intracranial hemorrhage: Parenchymal microhemorrhages: 0 Other (siderosis/macrohemorrhage s (>10mm): Not Applicable Amyloid Related Imaging Abnormalities: ARIA-E: N/A ARIA-H Microhemorrhage: N/A ARIA-H Siderosis: N/A Qualitative brain and hippocampal volume loss for age: Cortex: Normal and symmetric White Matter: Normal and symmetric Hippocampi: Normal and Symmetric Ventricles: Commensurate with volume loss. Brain Parenchymal Signal and Morphology: The brain parenchyma is otherwise within normal limits of signal and morphology. There is no evidence of an intracranial mass or extraaxial fluid collection. Other Significant Findings: None. QUANTITATIVE: Exam Quality: Adequate for volumetric analysis. Segmentation: Accurate segmentation by visual inspection Quantitative Data: Total Hippocampal Volume: Percentile for Age: 65 Asymmetry Index: -2.39 Inferior Lateral Vent Volume: Percentile for age: 63 Asymmetry Index: -18.1 Superior Lateral Vent Volume: Percentile for age: 79 Asymmetry Index: -9.92 Temporal Lobe Cortex Volume: Temporal Lobe Percentile for Age: 1 Temporal Lobe Asymmetry Index: 2.58 Frontal Lobe Cortex Volume: Frontal Lobe Percentile for Age: 7 Frontal Lobe Asymmetry Index: -3.81 Parietal Lobe Cortex Volume: Parietal Lobe Percentile for Age:10 Occipital Lobe Cortex Volume: Occipital Lobe Percentile for Age: 29 Whole Brain Volume Brain Percentile for Age: 85 Concordance between qualitative and quantitative hippocampal volume assessment: Concordant Change in brain volumes: No previous volumetric study for comparison See below for comparison of brain volumes in relation to the prior volumetric study: Not applicable. The prior study was reprocessed with the current algorithm version for adequate comparison. Please note that small variations may be due to standard measurement error. Brain Volume: Current percentile: N/A Previous percentile: N/A Hippocampal Volume: Current percentile: N/A Previous percentile: N/A Superior Lateral Ventricle Volume Change: Current percentile: N/A Previous percentile: N/A Inferior Lateral Ventricle Volume Change: Current percentile: N/A Previous percentile: N/A Mean hippocampal volume loss among normal elderly: 0.7% per year, (-0.3 to 1.7; Jennie 2008; also Jose Armando 2010). IMPRESSION: 1. No evidence of an acute intracranial process or intracranial mass. 2. No significant generalized volume loss. 3. Hippocampal volumes at the 65th percentile when compared to age matched normal controls by quantitative analysis. However temporal cortical volume is at the 1st percentile. 4. Mild white matter disease which is nonspecific but likely reflective of chronic microvascular ischemia. 5. No evidence of parenchymal microhemorrhages by MRI. 6. Age-matched reference charts measure total hippocampal volume (% of intracranial volume). See results from the analysis charts for details. REFERENCES: White Matter Lesions: 0 = No lesions, including symmetrical, well-defined caps or bands 1 = Focal Lesions 2 = Beginning of [place] 3 = Diffuse Involvement of Entire Region Basal Ganglia Lesions: 0 = No Lesions 1 = 1 Focal Lesion (>5mm) 2 = >1 Focal Lesion (>5mm) 3 = Confluent Lesions Jose Armando Sol, et al. The clinical use of structural MRI in Alzheimer disease. Nature Reviews Neurology 6;67 (2010). Jennie et al. Validation of a fully automated 3D hippocampal segmentation method using subjects with Alzheimer's disease mild cognitive impairment, and elderly controls. Neuroimage 43;59 (2008). Jennifer et al. A New Rating Scale for Age-Related White Matter Changes Applicable to MRI and CT. Stroke. 32:1318 (2001). * Asymmetry index defined as difference between left and right volumes divided by mean or (more content not included)... Normal [facility] MRI BRAIN W QUANT WO IVCONon 03-01-2025 MRI BRAIN W QUANT WO IVCON * * *Final Report* * * DATE OF EXAM: Mar 01 2025 7:43AM BRM [id number] - MRI BRAIN W QUANT WO IVCON / PROCEDURE REASON: multiple diagnoses * * * * Physician Interpretation * * * * EXAMINATION: MRI BRAIN W QUANT WO IVCON, MRI 3D BRAIN QUANT CLINICAL HISTORY: Cognitive changes. TECHNIQUE: Axial RISA FLAIR, RISA T2, diffusion and susceptibility weighted imaging without contrast, using the ADNI dementia protocol and 3-D post-processing using the [email or web address] software at an independent workstation with concurrent physician supervision and images were created, reviewed and archived. MQ: [id number] COMPARISON: None RESULT: QUALITATIVE: Acute Intracranial Process: None. Chronic Intracranial Process: Scattered patchy areas of increased T2 and FLAIR signal are present in the supratentorial white matter which is a nonspecific finding but likely represents mild chronic microvascular ischemia. Number of chronic lacunar infarcts: None Location of chronic lacunar infarcts: Not applicable Age related white matter changes (ARWMC) rating: White matter lesions: 1 Basal ganglia lesions: 0 Prior intracranial hemorrhage: Parenchymal microhemorrhages: 0 Other (siderosis/macrohemorrhage s (>10mm): Not Applicable Amyloid Related Imaging Abnormalities: ARIA-E: N/A ARIA-H Microhemorrhage: N/A ARIA-H Siderosis: N/A Qualitative brain and hippocampal volume loss for age: Cortex: Normal and symmetric White Matter: Normal and symmetric Hippocampi: Normal and Symmetric Ventricles: Commensurate with volume loss. Brain Parenchymal Signal and Morphology: The brain parenchyma is otherwise within normal limits of signal and morphology. There is no evidence of an intracranial mass or extraaxial fluid collection. Other Significant Findings: None. QUANTITATIVE: Exam Quality: Adequate for volumetric analysis. Segmentation: Accurate segmentation by visual inspection Quantitative Data: Total Hippocampal Volume: Percentile for Age: 65 Asymmetry Index: -2.39 Inferior Lateral Vent Volume: Percentile for age: 63 Asymmetry Index: -18.1 Superior Lateral Vent Volume: Percentile for age: 79 Asymmetry Index: -9.92 Temporal Lobe Cortex Volume: Temporal Lobe Percentile for Age: 1 Temporal Lobe Asymmetry Index: 2.58 Frontal Lobe Cortex Volume: Frontal Lobe Percentile for Age: 7 Frontal Lobe Asymmetry Index: -3.81 Parietal Lobe Cortex Volume: Parietal Lobe Percentile for Age:10 Occipital Lobe Cortex Volume: Occipital Lobe Percentile for Age: 29 Whole Brain Volume Brain Percentile for Age: 85 Concordance between qualitative and quantitative hippocampal volume assessment: Concordant Change in brain volumes: No previous volumetric study for comparison See below for comparison of brain volumes in relation to the prior volumetric study: Not applicable. The prior study was reprocessed with the current algorithm version for adequate comparison. Please note that small variations may be due to standard measurement error. Brain Volume: Current percentile: N/A Previous percentile: N/A Hippocampal Volume: Current percentile: N/A Previous percentile: N/A Superior Lateral Ventricle Volume Change: Current percentile: N/A Previous percentile: N/A Inferior Lateral Ventricle Volume Change: Current percentile: N/A Previous percentile: N/A Mean hippocampal volume loss among normal elderly: 0.7% per year, (-0.3 to 1.7; Jennie 2008; also Jose Armando 2010). IMPRESSION: 1. No evidence of an acute intracranial process or intracranial mass. 2. No significant generalized volume loss. 3. Hippocampal volumes at the 65th percentile when compared to age matched normal controls by quantitative analysis. However temporal cortical volume is at the 1st percentile. 4. Mild white matter disease which is nonspecific but likely reflective of chronic microvascular ischemia. 5. No evidence of parenchymal microhemorrhages by MRI. 6. Age-matched reference charts measure total hippocampal volume (% of intracranial volume). See results from the analysis charts for details. REFERENCES: White Matter Lesions: 0 = No lesions, including symmetrical, well-defined caps or bands 1 = Focal Lesions 2 = Beginning of [place] 3 = Diffuse Involvement of Entire Region Basal Ganglia Lesions: 0 = No Lesions 1 = 1 Focal Lesion (>5mm) 2 = >1 Focal Lesion (>5mm) 3 = Confluent Lesions Jose Armando Sol, et al. The clinical use of structural MRI in Alzheimer disease. Nature Reviews Neurology 6;67 (2010). Jnenie et al. Validation of a fully automated 3D hippocampal segmentation method using subjects with Alzheimer's disease mild cognitive impairment, and elderly controls. Neuroimage 43;59 (2008). Neelimaund et al. A New Rating Scale for Age-Related White Matter Changes Applicable to MRI and CT. Stroke. 32:1318 (2001). * Asymmetry index defined as difference between left and right volumes divided by (more content not included)... Normal [facility] No Panel Informationon 03-01 IMPRESSION: 1. No evidence of an acute intracranial process or intracranial mass. 2. No significant generalized volume loss. 3. Hippocampal volumes at the 65th percentile when compared to age matched normal controls by quantitative analysis. However temporal cortical volume is at the 1st percentile. 4. Mild white matter disease which is nonspecific but likely reflective of chronic microvascular ischemia. 5. No evidence of parenchymal microhemorrhages by MRI. 6. Age-matched reference charts measure total hippocampal volume (% of intracranial volume). See results from the analysis charts for details. REFERENCES: White Matter Lesions: 0 = No lesions, including symmetrical, well-defined caps or bands 1 = Focal Lesions 2 = Beginning of [place] 3 = Diffuse Involvement of Entire Region Basal Ganglia Lesions: 0 = No Lesions 1 = 1 Focal Lesion (>5mm) 2 = >1 Focal Lesion (>5mm) 3 = Confluent Lesions Jose Armando Sol, et al. The clinical use of structural MRI in Alzheimer disease. Nature Reviews Neurology 6;67 (2010). Jennie et al. Validation of a fully automated 3D hippocampal segmentation method using subjects with Alzheimer's disease mild cognitive impairment, and elderly controls. Neuroimage 43;59 (2008). Praneethhlund et al. A New Rating Scale for Age-Related White Matter Changes Applicable to MRI and CT. Stroke. 32:1318 (2001). * Asymmetry index defined as difference between left and right volumes divided by mean or [(L-R/Mean) x 100] (%). Age-matched reference charts measure total hippocampal volume (% of intracranial volume). See results from the analysis charts for details. Teacher Physically Impaired: QUYEN Transcribe Date/Time: Mar 01 2025 9:02A Dictated by : CASEY GOFF MD This examination was interpreted and the report reviewed and electronically signed by: CASEY GOFF MD on Mar 01 2025 11:41AM [facility] DIVISION OF RADIOLOGY Radiology Study observation (narrative) [facility] No Panel InformationOrdered By: Ccf Provider on 03-01-2025 [facility] CBC panel Auto (Bld)on 02-27 Erythrocyte distribution width (RBC) [Ratio] 14.2 % 11.5 - 15.0 % [facility] Hematocrit (Bld) [Volume fraction] 40.1 % 36.0 - 46.0 % [facility] Hemoglobin (Bld) [Mass/Vol] 13.3 g/dL 11.5 - 15.5 g/dL [facility] Interpretation and review of laboratory results Abnormal [facility] MCH (RBC) [Entitic mass] 29.1 pg 26.0 - 34.0 pg [facility] MCHC (RBC) [Mass/Vol] 33.2 g/dL 30.5 - 36.0 g/dL [facility] MCV (RBC) [Entitic vol] 87.7 fL 80.0 - 100.0 fL [facility] Nucleated RBC (Bld) [#/Vol] NINF [facility] Platelet mean volume (Bld) [Entitic vol] 9.7 fL 9.0 - 12.7 fL [facility] Platelets (Bld) [#/Vol] 364 10*3/uL [facility] RBC (Bld) [#/Vol] 4.57 10*6/uL 3.90 - 5.2 0 m/uL [facility] WBC (Bld) [#/Vol] 13.35 10*3/uL High [facility] Erythrocyte distribution width (RBC) [Ratio] 14.2 % Normal 11.5-15.0 [facility] Comment on above: Order Comment: Speci emiliano Type: BLOOD SPECIMENOrdering Facility: [facility] Address: [address] [place] [address] Performed By: #### 5 8410-2 ####[facility] LABCLIA [id number] [address] STATES OF [facility] Hematocrit (Bld) [Volume fraction] 40.1 % Normal 36.0-46.0 [facility] Comment on above: Order Comment: Speci men Type: BLOOD SPECIMENOrdering Facility: [facility] Address: [address] [place], [place] [address] Performed By: #### 5 8410-2 ####[facility] LABCLIA [id number] [place] [address] [place] Hemoglobin (Bld) [Mass/Vol] 13.3 g/dL Normal 11.5-15.5 [facility] Comment on above: Order Comment: Speci men Type: BLOOD SPECIMENOrdering Facility: [facility] Address: [address] [place] [address] Performed By: #### 5 8410-2 ####[facility] LABIA [id number] [place] [address] [place] MCH (RBC) [Entitic mass] 29.1 pg Normal 26.0-34.0 [facility] Comment on above: Order Comment: Speci men Type: BLOOD SPECIMENOrdering Facility: [facility] Address: [address] [place] [address] Performed By: #### 5 8410-2 ####[facility] LABIA [id number] [place] [address] [place] MCHC (RBC) [Mass/Vol] 33.2 g/dL Normal 30.5-36.0 [facility] Comment on above: Order Comment: Speci men Type: BLOOD SPECIMENOrdering Facility: [facility] Address: [address] [place] [address] Performed By: #### 5 8410-2 ####[facility] LABIA [id number] [place] [address] [place] MCV (RBC) [Entitic vol] 87.7 fL Normal 80.0-100.0 [facility] Comment on above: Order Comment: Speci men Type: BLOOD SPECIMENOrdering Facility: [facility] Address: [address] [place] [address] Performed By: #### 5 8410-2 ####[facility] LABIA [id number] [place] [address] [place] Nucleated RBC (Bld) [#/Vol] 10*3/uL Normal <0.01 [facility] Comment on above: Order Comment: Speci men Type: BLOOD SPECIMENOrdering Facility: [facility] Address: [address] [place] [address] Performed By: #### 5 8410-2 ####[facility] LABIA [id number] [place] [address] [place] Platelet mean volume (Bld) [Entitic vol] 9.7 fL Normal 9.0-12.7 [facility] Comment on above: Order Comment: Speci men Type: BLOOD SPECIMENOrdering Facility: [facility] Address: [address] [place] [address] Performed By: #### 5 8410-2 ####[facility] LABCLIA [id number] [place] [address] [place] Platelets (Bld) [#/Vol] 364 10*3/uL Normal 150-400 [facility] Comment on above: Order Comment: Speci men Type: BLOOD SPECIMENOrdering Facility: [facility] Address: [address] [place] [address] Performed By: #### 5 8410-2 ####[facility] LABIA [id number] [place] [address] [place] RBC (Bld) [#/Vol] 4.57 10*6/uL Normal 3.90-5.20 [facility] Comment on above: Order Comment: Speci men Type: BLOOD SPECIMENOrdering Facility: [facility] Address: [address] [place] [address] Performed By: #### 5 8410-2 ####[facility] LABCLIA [id number] [place] [address] [place] WBC (Bld) [#/Vol] 13.35 10*3/uL High 3.70-11.00 [facility] Comment on above: Order Comment: Speci men Type: BLOOD SPECIMENOrdering Facility: [facility] Address: [address] [place] [address] Performed By: #### 5 8410-2 ####[facility] LABCLIA [id number] H[facility] [place]OWN [id number] [place] [address] OF [facility] CNOVon 02-27-2025 CNOV Office Visit (FAMPWS ) -- ALBANIA RAMSEY ([id number]) 1960 F Date Time Provider Department 02/27/25 1:20 PM [facility] today, we recorded the following information about you: Pulse Respiration Blood pressure Weight 103/minute 16/minute 105/68 55 kg Teresa Aguilar MD 02/27/2025 5:38 PM Signed Chief Complaint Patient presents with: Follow Up: [...] Has also had low BP in past. Mobile notified PCP that pt is more unsteady [...] Schizophrenia (HCC) follows with Dr Bill at [facility] Sn[employer] Tobacco use disorder 1/2 ppd since [...] needed for up to 10 doses. pantoprazole ( (more content not included)... Normal [facility] Comprehensive metabolic 2000 panelon 02-27-2025 Albumin [Mass/Vol] 4.5 g/dL Normal 3.9-4.9 [facility] Comment on above: Order Comment: Speci men Type: BLOOD SPECIMENOrdering Facility: [facility] Address: [address] [place] [address] Performed By: #### 2 132-9, 51354-8 ####[facility] LABCLIA [id number] [place] [address] [place] ALP [Catalytic activity/Vol] 85 U/L Normal 34-123 [facility] Comment on above: Order Comment: Speci men Type: BLOOD SPECIMENOrdering Facility: [facility] Address: [address] [place] [address] Performed By: #### 2 132-9, 33502-0 ####[facility] LABCLIA [id number] [address] [address] [place] ALT [Catalytic activity/Vol] 10 U/L Normal 7-38 [facility] Comment on above: Order Comment: Speci men Type: BLOOD SPECIMENOrdering Facility: [facility] Address: [address] [place] [address] Performed By: #### 2 132-9, 23865-5 ####[facility] LABCLIA [id number] [place] [id number] [place] Anion gap [Moles/Vol] 12 mmol/L Normal 8-15 [facility] Comment on above: Order Comment: Speci men Type: BLOOD SPECIMENOrdering Facility: [facility] Address: [address] [place] [address] Performed By: #### 2 132-9, 28127-0 ####[facility] LABCLIA [id number] [place] [address] [place] AST [Catalytic activity/Vol] 16 U/L Normal 13-35 [facility] Comment on above: Order Comment: Speci men Type: BLOOD SPECIMENOrdering Facility: [facility] Address: [address] [place] [address] Performed By: #### 2 132-9, 72774-0 ####[facility] LABCLIA [id number] [place] [id number] [place] Bilirubin [Mass/Vol] 0.2 mg/dL Normal 0.2-1.3 [facility] Comment on above: Order Comment: Speci men Type: BLOOD SPECIMENOrdering Facility: [facility] Address: [address] [place] [address] Performed By: #### 2 132-9, 41659-3 ####[facility] LABCLIA [id number] [address] [address] [place] Calcium [Mass/Vol] 9.8 mg/dL Normal 8.5-10.2 [facility] Comment on above: Order Comment: Speci men Type: BLOOD SPECIMENOrdering Facility: [facility] Address: [address] [place], [place] [address] Performed By: #### 2 132-9, 42691-9 ####[facility] LABCLIA [id number] [address] [address] [place] Chloride [Moles/Vol] 97 mmol/L Low 98-107 [facility] Comment on above: Order Comment: Speci men Type: BLOOD SPECIMENOrdering Facility: [facility] Address: [address] [place], [place] [address] Performed By: #### 2 132-9, 45550-9 ####[facility] LABCLIA [id number] [address] [address] [place] CO2 [Moles/Vol] 27 mmol/L Normal 22-30 [facility] Comment on above: Order Comment: Speci men Type: BLOOD SPECIMENOrdering Facility: [facility] Address: [address] [place], [place] [address] Performed By: #### 2 132-9, 93146-5 ####[facility] LABCLIA [id number] [address] [address] [place] Creatinine [Mass/Vol] 0.58 mg/dL Normal 0.58-0.96 [facility] Comment on above: Order Comment: Speci men Type: BLOOD SPECIMENOrdering Facility: [facility] Address: [address] [place], [place] [address] Performed By: #### 2 132-9, 89230-7 ####[facility] LABCLIA [id number] [address] [address] [place] Creatinine and Glomerular filtration rate.predicted panel (S/P/Bld) 101 mL/min/1.73m??? Normal >=60 [facility] Comment on above: Order Comment: Speci men Type: BLOOD SPECIMENOrdering Facility: [facility] Address: [address] [place] [address] Result Comment: Vijaya mated Glomerular Filtration Rate (eGFR) is calculated using the 2020 CKD-EPI creatinine equation. This equation utilizes serum creatinine, sex, and age as parameters. The creatinine assay has traceable calibration to isotope dilution-mass spectrometry. Refer to KDIGO guidelines for clinical interpretation. In patients with unstable renal function, e.g. those with acute kidney injury, the eGFR may not accurately reflect actual GFR. Performed By: #### 2 132-9, 52919-6 ####[facility] LABIA [id number] [place] [address] [place] Glucose [Mass/Vol] 144 mg/dL High 74-99 [facility] Comment on above: Order Comment: Elisha cummings Type: BLOOD SPECIMENOrdering Facility: [facility] Address: [address] [place] [address] Result Comment: The [place] Diabetes Association (ADA) provides guidance for cutoff values for fasting glucose and random glucose. The ADA defines fasting as no caloric intake for at least 8 hours. Fasting plasma glucose results between 100 to 125 mg/dL indicate increased risk for diabetes (prediabetes). Fasting plasma glucose results greater than or equal to 126 mg/dL meet the criteria for diagnosis of diabetes. In the absence of unequivocal hyperglycemia, results should be confirmed by repeat testing. In a patient with classic symptoms of hyperglycemia or hyperglycemic crisis, random plasma glucose results greater than or equal to 200 mg/dL meet the criteria for diagnosis of diabetes. Reference: Standards of Medical Care in Diabetes 2016, [place] Diabetes Association. Diabetes Care. 2016.39(Suppl 1). Performed By: #### 2 132-9, ####[facility] [id number] [place] [id number] [place] Potassium [Moles/Vol] 4.5 mmol/L Normal 3.7-5.1 [facility] Comment on above: Order Comment: Elisha cummings Type: BLOOD SPECIMENOrdering Facility: [facility] Address: [address] [place] [address] Performed By: #### 2 132-9, 75836-8 ####[facility] LABCLIA [id number] [address] [place] [address] [place] Protein [Mass/Vol] 6.6 g/dL Normal 6.3-8.0 [facility] Comment on above: Order Comment: Speci men Type: BLOOD SPECIMENOrdering Facility: [facility] Address: [address] [place] [address] Performed By: #### 2 132-9, 04566-8 ####[facility] LABIA [id number] [address] [place] [address] [place] Sodium [Moles/Vol] 136 mmol/L Normal 136-144 [facility] Comment on above: Order Comment: Speci men Type: BLOOD SPECIMENOrdering Facility: [facility] Address: [address] [place] [address] Performed By: #### 2 132-9, 58088-6 ####[facility] LABIA [id number] [address] [address] [place] Urea nitrogen [Mass/Vol] 11 mg/dL Normal 7-21 [facility] Comment on above: Order Comment: Speci men Type: BLOOD SPECIMENOrdering Facility: [facility] Address: [address] [place] [address] Performed By: #### 2 132-9, 69500-8 ####[facility] LABIA [id number] [address] [address] [place] HbA1c (Bld)on 02-27-2025 Average glucose Estimated from glycated hemoglobin (Bld) [Mass/Vol] 131 mg/dL [facility] Comment on above: eAG: (Estimated aver age glucose) is a calculated value from HgbA1c and is enrollment eligibility representative of the average blood glucose level in the last 2-3 month period. HbA1c (Bld) [Mass fraction] 6.2 % High 4.3 - 5.6 % [facility] Comment on above: [place] Diabetes As sociation guidelines indicate that patients with HgbA1c in the range 5.7-6.4% are at increased risk for development of diabetes, and intervention by lifestyle modification may be beneficial. HgbA1c greater or equal to 6.5% is considered diagnostic of diabetes. Interpretation and review of laboratory results Abnormal [facility] Average glucose Estimated from glycated hemoglobin (Bld) [Mass/Vol] 131 mg/dL Normal [facility] Comment on above: Order Comment: Elisha cummings Type: BLOOD SPECIMENOrdering Facility: [facility] Address: [address] [place] [address] Result Comment: eAG: (Estimated average glucose) is a calculated value from HgbA1c and is enrollment eligibility representative of the average blood glucose level in the last 2-3 month period. Performed By: #### 5 5454-3 ####[facility] LABIA [id number] [address] STATES OF [facility] HbA1c (Bld) [Mass fraction] 6.2 % High 4.3-5.6 [facility] Comment on above: Order Comment: Elisha cummings Type: BLOOD SPECIMENOrdering Facility: [facility] Address: [address] [place] [address] Result Comment: [place] Diabetes Association guidelines indicate that patients with HgbA1c in the range 5.7-6.4% are at increased risk for development of diabetes, and intervention by lifestyle modification may be beneficial. HgbA1c greater or equal to 6.5% is considered diagnostic of diabetes. Performed By: #### 5 5454-3 ####[facility] LABIA [id number] [address] [place] Vit B12 [facility] 06-17-2 025 Cobalamin (Vitamin B12) [Mass/Vol] 447 pg/mL Normal 232-1245 [facility] Comment on above: Order Comment: Elisha cummings Type: BLOOD SPECIMENOrdering Facility: [facility] Address: [address] [place] [address] Performed By: #### 2 132-9, 31092-5 ####[facility] LABIA [id number] [address] [place] CNPNon 06-12-2025 CNPN Telephone (FAMPWS) -- ROXYALBANIA Wilkes ([id number]) 1960 F Date Time Provider Department 02/22/25 TERESA AGUILAR [place] During your visit today, we recorded the following information about you: Nighat Hall RN 02/22/2025 11:32 AM Signed Arielle from [employer] in [place] calls and states that patient is going to daycare x 5 days a week. Patient is more unstable and they have noticed that patient is declining cognitively. Patient also has been very unstable on her feet. Arielle states that they will keep watching patient and let provider know if they see any more changes. ASHLEE Diallo Mark D, MD 02/22/2025 11:46 AM Signed Staci Aguilar MD Allergies As of Date: 02/22/2025 Noted Allergy Reaction DEMORAL (MEPERIDINE) 02/03/2008 2 - Rash DESYREL (TRAZODONE HCL) 06/30/2006 2 - Rash DOXYCYCLINE 07/15/2010 4 - Hives ERYTHROMYCIN 06/30/2006 2 - Rash LEVAQUIN (LEVOFLOXACIN) 03/29/2024 2 - Rash MORPHINE 06/30/2006 7 - Swelling PREDNISONE 05/13/2010 2 - Rash Date Reviewed: 02/06/2025 Reviewed by: Gia Solomon LPN - Fully Assessed Reason for Visit: Patient Update [1234] Prescriptions as of 02/22/2025 - nystatin (MYCOSTATIN) 100,000 unit/mL suspension Take 5 mL by mouth four times daily. Swish and swallow. - meloxicam (MOBIC) 7.5 mg tablet Take 1 tablet by mouth once daily. - cyclobenzaprine (FLEXERIL) 10 mg tablet Take 1 tablet by mouth three times a day. - meclizine (ANTIVERT) 25 mg tab Take 1 tablet by mouth every 6 hours as needed (dizziness). - fluticasone-salmeterol (ADVAIR DISKUS) 250-50 mcg/dose inhaler Inhale 1 Puff as instructed two times a day. - OXYGEN, HOME THERAPY, 2 L/min by Nasal Cannula route continuous. - cholecalciferol, Vitamin D3, (VITAMIN D3) 1,250 mcg (50,000 unit) cap capsule Take 1 capsule by mouth one time a week. - ondansetron (ZOFRAN) 4 mg tablet Take 1 tablet by mouth every 8 hours as needed for up to 10 doses. - pantoprazole DR (PROTONIX) 20 mg tablet Take 1 tablet by mouth daily before breakfast. Take on empty stomach, 1/2 hr before meal. - melatonin 10 mg tab Take 1 [...] as needed for Wheezing/Shortness of Breath. - sertraline (ZOLOFT) 50 mg tablet Take 50 mg by mouth once daily. - benztropine (COGENTIN) 1 mg tablet Take 1 mg by mouth twice daily. Problem List As Of Date 02/22/2025 Noted Resolved TOBACCO USE DISORDER [F17.200] Acute bronchitis with chronic obstructive pulmo*07/01/2006 BENIGN PARXYSMAL VERTIGO [H81.10] 04/06/2007 LUMBAGO [M54.50] 05/02/2007 Bipolar I disorder, most recent episode (or cur*05/02/2007 GERD (gastroesophageal reflux disease) [K21.9] 04/21/2011 History of lumbar discectomy [Z98.890] 08/17/2011 Lumbar disc displacement without myelopathy [M5*08/17/2011 DDD (degenerative disc disease), lumbar [M51.36*08/17/2011 Lumbar radiculopathy [M54.16] 11/02/2011 Lumbar spondylosis [M47.816] [...] artificial shoulder joint [Z9*08/18/2023 Encounter Status:Closed by TERESA AGUILAR on 02/22/25 [facility] CNCOon 02-20-2025 CNCO Letter Text Normal [facility] CNOVon 02-06-2025 CNOV Office Visit (FAMPWS ) -- [place] RAMSEY ([id number]) 1960 F Date Time Provider Department 02/06/25 11:40 AM EMELI SPIVEY During your visit today, we recorded the following information about you: Temperature Pulse Respiration Blood pressure 98.9 degrees 110/minute 16/minute 101/72 Weight 52.6 kg Emeli Spivey PA-C 02/06/2025 1:06 PM Signed Chief Complaint Patient presents with: Dizziness: X [...] Schizophrenia (HCC) follows with Dr Bill at [facility] Snoring Tobacco use disorder 1/2 ppd since [...] cholecalciferol, Vitamin D3, (VITAMIN D3) 1,250 mcg (50,0 (more content not included)... Normal [facility] 02-06-2025 [facility] [place]SE[place] ([id number]) 1960 F Date Time Provider Department 02/06[facility] your visit today, we recorded the following information about you: Emeli Spivey PA-C 02/06/2025 1:13 PM Signed Patient needs help getting neurology work up scheduled. (MRIs) Blossom Ivan MA 02/06/2025 1:26 PM Signed Please assist pt to schedule MRIs ordered. Blossom Ivan MA Allergies As of Date: 02/06/2025 Noted Allergy Reaction DEMORAL (MEPERIDINE) 02/03/2008 2 - Rash DESYREL (TRAZODONE HCL) 06/30/2006 2 - Rash DOXYCYCLINE 07/15/2010 4 - Hives ERYTHROMYCIN 06/30/2006 2 - Rash LEVAQUIN (LEVOFLOXACIN) 03/29/2024 2 - Rash MORPHINE 06/30/2006 7 - Swelling PREDNISONE 05/13/2010 2 - Rash Date Reviewed: 02/06/2025 Reviewed by: Gia Solomon LPN - Fully Assessed Reason for Visit: Orders [681] Prescriptions as of 02/16/2025 - nystatin (MYCOSTATIN) 100,000 unit/mL suspension Take 5 mL by mouth four times daily. Swish and swallow. - meloxicam (MOBIC) 7.5 mg tablet Take 1 tablet by mouth once daily. - cyclobenzaprine (FLEXERIL) 10 mg tablet Take 1 tablet by mouth three times a day. - meclizine (ANTIVERT) 25 mg tab Take 1 tablet by mouth every 6 hours as needed (dizziness). - fluticasone-salmeterol (ADVAIR DISKUS) 250-50 mcg/dose inhaler Inhale 1 Puff as instructed two times a day. - OXYGEN, HOME THERAPY, 2 L/min by Nasal Cannula route continuous. - cholecalciferol, Vitamin D3, (VITAMIN D3) 1,250 mcg (50,000 unit) cap capsule Take 1 capsule by mouth one time a week. - ondansetron (ZOFRAN) 4 mg tablet Take 1 tablet by mouth every 8 hours as needed for up to 10 doses. - pantoprazole DR (PROTONIX) 20 mg tablet Take 1 tablet by mouth daily before breakfast. Take on empty stomach, 1/2 hr before meal. - melatonin 10 mg tab Take 1 [...] twice daily. Problem List As Of Date 02/06/2025 Noted Resolved TOBACCO USE DISORDER [F17.200] Acute bronchitis with chronic obstructive pulmo*07/01/2006 BENIGN PARXYSMAL VERTIGO [H81.10] 04/06/2007 LUMBAGO [M54.50] 05/02/2007 Bipolar I disorder, most recent episode (or cur*05/02/2007 GERD (gastroesophageal reflux disease) [K21.9] 04/21/2011 History of lumbar discectomy [Z98.890] 08/17/2011 Lumbar disc displacement without myelopathy [M5*08/17/2011 DDD (degenerative disc disease), lumbar [M51.36*08/17/2011 Lumbar radiculopathy [M54.16] 11/02/2011 Lumbar spondylosis [M47.816] [...] artificial shoulder joint [Z9*08/18/2023 Encounter Status:Closed by EMELI RODRIGUEZ on 02/16/25 [facility] Telephone (FAMPWS) -- [place] RAMSEY ([id number]) 1960 F Date Time Provider Department 02/06/25 EMELI SPIVEY [place] During your visit today, we recorded the following information about you: Emeli Spivey PA-C 02/06/2025 12:33 PM Signed Please contact [facility]. Patient sees Zainab and she has her on prazosin at night. Patient evaluated today for dizziness worse in morning and right before bed. Her BP in office was low and +orthostatic hypotension. Does she think prazosin could be switched to something else or at least dose adjusted? Thanks. Gia Lacy LPN 02/06/2025 1:25 PM Signed Left message for Zainab's nurse Alivia to call for Emeli's message. does advise it may take 3 business days to address messages. RUPA Kruse Sherill A, LPN 02/08/2025 9:01 AM Signed Faxed a copy of Ashleys message to [facility] for Zainab to address d/t have not received a call back yet. RUPA Kruse Sherill A, LPN 02/12/2025 10:39 AM Signed Called counseling center again. 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 Was transferred to [facility]. Advised her of what office is needing to find out and also advised this nurse had sent a fax last week regarding this. She advises that the permanent mold supervisor is handling messages. She transferred this nurse to the medication line. This nurse left detailed message of information Emeli is wanting to find out regarding pt's medication. Asked that someone call back and speak with a Triage Nurse regarding this. RUPA Kruse Beth, LPN 02/15/2025 3:58 PM Signed Zainab LOVING from the Counseling Center returned call and said patient was having low blood pressure back in April and the prazosin was stopped then. Emeli Spivey PA-C 02/16/2025 8:25 AM Signed Please let patient know that per psych, she was told to stop prazosin back in April of 2024 due to low BP. Have her make sure she is no longer on this medication since she told us she was still taking it. Then otherwise keep follow up with PCP to discuss her dizziness. . LAMONT Davidson Amanda, RN 02/16/2025 8:37 AM Signed Called Pt and no answer. Pt did not have voicemail set up. Will need to call back. ASHLEE Herron Krystle, RN 02/16/2025 9:11 AM Signed Patient returns call and message below reviewed. Patient reports she is not taking prazosin. ASHLEE Nguyen Rayanne, PA-C 02/16/2025 9:43 AM Signed noted Allergies As of Date: 02/06/2025 Noted Allergy Reaction DEMORAL (MEPERIDINE) 02/03/2008 2 - Rash DESYREL (TRAZODONE HCL) 06/30/2006 2 - Rash DOXYCYCLINE 07/15/2010 4 - Hives ERYTHROMYCIN 06/30/2006 2 - Rash LEVAQUIN (LEVOFLOXACIN) 03/29/2024 2 - Rash MORPHINE 06/30/2006 7 - Swelling PREDNISONE 05/13/2010 2 - Rash Date Reviewed: 02/06/2025 Reviewed by: Gia Solomon LPN - Fully Assessed Reason for Visit: Patient Update [1234] Prescriptions as of 02/16/2025 - nystatin (MYCOSTATIN) 100,000 unit/mL suspension Take 5 mL by mouth four times daily. Swish and swallow. - meloxicam (MOBIC) 7.5 mg tablet Take 1 tablet by mouth once daily. - cyclobenzaprine (FLEXERIL) 10 mg tablet Take 1 tablet by mouth three times a day. - meclizine (ANTIVERT) 25 mg tab Take 1 tablet by mouth every 6 hours as needed (dizziness). - fluticasone-salmeterol (ADVAIR DISKUS) 250-50 mcg/dose inhaler Inhale 1 Puff as instructed two times a day. - OXYGEN, HOME THERAPY, 2 L/min by Nasal Cannula route continuous. - cholecalciferol, Vitamin D3, (VITAMIN D3) 1,250 mcg (50,000 unit) cap capsule Take 1 capsule by mouth one time a week. - ondansetron (ZOFRAN) 4 mg tablet Take 1 tablet by mouth every 8 hours as needed for up to 10 doses. - pantoprazole DR (PROTONIX) 20 mg tablet Take 1 tablet by mouth daily before breakfast. Take on empty stomach, 1/2 hr before meal. - melatonin 10 mg tab Take 1 [...] as needed for Wheezing/Shortness of Breath. - sertraline (ZOLOFT) 50 mg tablet Take 50 mg by mouth once daily. - benztropine (COGENTIN) 1 mg tablet Take 1 mg by mouth twice daily. Medication notes this encounter PRAZOSIN 2 MG CAPSULE >> Emeli Spivey PA-C 02/16/2025 8:24 AM low bp Problem Lis (more content not included)... Normal [facility] 01-16-2025 [facility] [place] RAMSEY ([id number]) 1960 F Date Time Provider Department 01/16/25 TERESA AGUILAR [place] During your visit today, we recorded the following information about you: Chaparro Christianson MA 01/16/2025 2:56 PM Signed Type of form: 90 day order for [facility] Form received via fax When form is completed, Fax form to [phone] Form has been forwarded to Physician Desk: GREGORY Hawley Kathryn, MA 01/18/2025 10:32 AM Signed Faxed. Lennie Khan MA Allergies As of Date: 01/16/2025 Noted Allergy Reaction DEMORAL (MEPERIDINE) 02/03/2008 2 - Rash DESYREL (TRAZODONE HCL) 06/30/2006 2 - Rash DOXYCYCLINE 07/15/2010 4 - Hives ERYTHROMYCIN 06/30/2006 2 - Rash LEVAQUIN (LEVOFLOXACIN) 03/29/2024 2 - Rash MORPHINE 06/30/2006 7 - Swelling PREDNISONE 05/13/2010 2 - Rash Date Reviewed: 12/19/2024 Reviewed by: Cora Gil PA-C - Fully Assessed Reason for Visit: Forms [673] Cmt: [facility] Prescriptions as of 01/18/2025 - cyclobenzaprine (FLEXERIL) 10 mg tablet Take 1 tablet by mouth three times a day. - meclizine (ANTIVERT) 25 mg tab Take 1 tablet by mouth every 6 hours as needed (dizziness). - meloxicam (MOBIC) 7.5 mg tablet Take 1 tablet by mouth once daily. - fluticasone-salmeterol (ADVAIR DISKUS) 250-50 mcg/dose inhaler Inhale 1 Puff as instructed two times a day. - OXYGEN, HOME THERAPY, 2 L/min by Nasal Cannula route continuous. - cholecalciferol, Vitamin D3, (VITAMIN D3) 1,250 mcg (50,000 unit) cap capsule Take 1 capsule by mouth one time a week. - ondansetron (ZOFRAN) 4 mg tablet Take 1 tablet by mouth every 8 hours as needed for up to 10 doses. - pantoprazole DR (PROTONIX) 20 mg tablet Take 1 tablet by mouth daily before breakfast. Take on empty stomach, 1/2 hr before meal. - melatonin 10 mg tab Take 1 [...] twice daily. Problem List As Of Date 01/16/2025 Noted Resolved TOBACCO USE DISORDER [F17.200] Acute bronchitis with chronic obstructive pulmo*07/01/2006 BENIGN PARXYSMAL VERTIGO [H81.10] 04/06/2007 LUMBAGO [M54.50] 05/02/2007 Bipolar I disorder, most recent episode (or cur*05/02/2007 GERD (gastroesophageal reflux disease) [K21.9] 04/21/2011 History of lumbar discectomy [Z98.890] 08/17/2011 Lumbar disc displacement without myelopathy [M5*08/17/2011 DDD (degenerative disc disease), lumbar [M51.36*08/17/2011 Lumbar radiculopathy [M54.16] 11/02/2011 Lumbar spondylosis [M47.816] [...] artificial shoulder joint [Z9*08/18/2023 Encounter Status:Closed [facility] [place] RAMSEY ([id number]) 1960 F Date Time Provider Department 01/04/25 TERESA AGUILAR During your visit today, we recorded the following information about you: Lennie Khan MA 01/04/2025 12:07 PM Signed Type of letter/form/fax request - order for [employer]/[facility] agency on [employer] Form received from fax on 1 floor and placed on MD desk (Dr. Aguilar) for completion. Completed form needs to be faxed to [phone]. Route to [place] when form completed for processing Lennie Khan MA 01/11/2025 10:04 AM Signed faxed Allergies As of Date: 01/04/2025 Noted Allergy Reaction DEMORAL (MEPERIDINE) 02/03/2008 2 - Rash DESYREL (TRAZODONE HCL) 06/30/2006 2 - Rash DOXYCYCLINE 07/15/2010 4 - Hives ERYTHROMYCIN 06/30/2006 2 - Rash LEVAQUIN (LEVOFLOXACIN) 03/29/2024 2 - Rash MORPHINE 06/30/2006 7 - Swelling PREDNISONE 05/13/2010 2 - Rash Date Reviewed: 12/19/2024 Reviewed by: Cora Gil PA-C - Fully Assessed Reason for Visit: Forms [913] Cmt: [facility]/area agency on [employer] Prescriptions as of 01/11/2025 - cyclobenzaprine (FLEXERIL) 10 mg tablet Take 1 tablet by mouth three times a day. - meclizine (ANTIVERT) 25 mg tab Take 1 tablet by mouth every 6 hours as needed (dizziness). - meloxicam (MOBIC) 7.5 mg tablet Take 1 tablet by mouth once daily. - fluticasone-salmeterol (ADVAIR DISKUS) 250-50 mcg/dose inhaler Inhale 1 Puff as instructed two times a day. - OXYGEN, HOME THERAPY, 2 L/min by Nasal Cannula route continuous. - cholecalciferol, Vitamin D3, (VITAMIN D3) 1,250 mcg (50,000 unit) cap capsule Take 1 capsule by mouth one time a week. - ondansetron (ZOFRAN) 4 mg tablet Take 1 tablet by mouth every 8 hours as needed for up to 10 doses. - pantoprazole DR (PROTONIX) 20 mg tablet Take 1 tablet by mouth daily before breakfast. Take on empty stomach, 1/2 hr before meal. - melatonin 10 mg tab Take 1 [...] twice daily. Problem List As Of Date 01/04/2025 Noted Resolved TOBACCO USE DISORDER [F17.200] Acute bronchitis with chronic obstructive pulmo*07/01/2006 BENIGN PARXYSMAL VERTIGO [H81.10] 04/06/2007 LUMBAGO [M54.50] 05/02/2007 Bipolar I disorder, most recent episode (or cur*05/02/2007 GERD (gastroesophageal reflux disease) [K21.9] 04/21/2011 History of lumbar discectomy [Z98.890] 08/17/2011 Lumbar disc displacement without myelopathy [M5*08/17/2011 DDD (degenerative disc disease), lumbar [M51.36*08/17/2011 Lumbar radiculopathy [M54.16] 11/02/2011 Lumbar spondylosis [M47.816] [...] artificial shoulder joint [Z9*08/18/2023 Encounter Status:Closed by LENNIE KHAN on 01/11/25 [facility] 12-19-2024 CNOV Office Visit ([facility] ) -- [place] RAMSEY ([id number]) 1960 F Date Time Provider Department 12/19/24 2:45 PM CORA GIL During your visit today, we recorded the following information about you: Pulse Blood pressure Weight 53/minute 122/77 54.3 kg Cora Gil PA-C 12/19/2024 3:41 PM Signed [facility] Name: [place] Ramsey [...] concern for cognitive changes. Here in the of (more content not included)... Normal [facility] Folate SerPl-mCncon 12-20-19 25 Folate [Mass/Vol] 10.6 ng/mL Normal >4.7 [facility] Comment on above: Order Comment: Elisha cummings Type: BLOOD SPECIMENOrdering Facility: [facility] Address: [address] [place] [address] Performed By: #### 2 885-2, 2132-9, 2284-8, 3016-3 ####[facility] LABCLIA [id number] [place] [address] [place] HbA1c (Bld)on 12-19-2024 Average glucose Estimated from glycated hemoglobin (Bld) [Mass/Vol] 128 mg/dL Normal [facility] Comment on above: Order Comment: Elisha cummings Type: BLOOD SPECIMENOrdering Facility: [facility] Address: [address] [place] [address] Result Comment: eAG: (Estimated average glucose) is a calculated value from HgbA1c and is enrollment eligibility representative of the average blood glucose level in the last 2-3 month period. Performed By: #### 5 5454-3 ####[facility] LABCLIA [id number] [place] [address] [place] HbA1c (Bld) [Mass fraction] 6.1 % High 4.3-5.6 [facility] Comment on above: Order Comment: Elisha cummings Type: BLOOD SPECIMENOrdering Facility: [facility] Address: [address] [place] [address] Result Comment: Amer ican Diabetes Association guidelines indicate that patients with HgbA1c in the range 5.7-6.4% are at increased risk for development of diabetes, and intervention by lifestyle modification may be beneficial. HgbA1c greater or equal to 6.5% is considered diagnostic of diabetes. Performed By: #### 5 5454-3 ####[facility] [id number] [place] [address] [place] Methylmalonate SerPl-sCncon 12-19-2024 Methylmalonate [Moles/Vol] 0.61 umol/L High <=0.40 [facility] Comment on above: Order Comment: Speci men Type: BLOOD SPECIMENOrdering Facility: [facility] Address: [address] [place] [address] Result Comment: This test was developed, and its performance characteristics determined by the [facility] Department of Pathology and Laboratory Medicine. It has not been cleared or approved by the FDA. The [facility] Department of Pathology and Laboratory Medicine is regulated under CLIA as qualified to perform high-complexity testing. This test is used for clinical purposes. It should not be regarded as investigational or for research. Performed By: #### 1 3964-2 ####[facility] [id number] [place] [address] [place] PROTEIN ELECTROPHORESIS SERU M WITH MERY (P)on 12-19-2024 Albumin [Mass/Vol] 4.36 g/dL Normal 3.43-5.41 [facility] Comment on above: Order Comment: Speci men Type: BLOOD SPECIMENOrdering Facility: [facility] Address: [address] [place] [address] Performed By: #### L [id number] ####[facility] [id number] [place] [address] [place] Alpha 1 globulin Elph [Mass/Vol] 0.34 g/dL Normal 0.18-0.43 [facility] Comment on above: Order Comment: Speci men Type: BLOOD SPECIMENOrdering Facility: [facility] Address: [address] [place] [address] Performed By: #### L [id number] ####[facility] LABIA [id number] [address] [address] [place] Alpha 2 globulin Elph [Mass/Vol] 0.80 g/dL Normal 0.42-0.98 [facility] Comment on above: Order Comment: Speci men Type: BLOOD SPECIMENOrdering Facility: [facility] Address: [address] [place] [address] Performed By: #### L [id number] ####[facility] LABIA [id number] [address], [facility] [place] Beta globulin Elph [Mass/Vol] 0.68 g/dL Normal 0.61-1.17 [facility] Comment on above: Order Comment: Speci men Type: BLOOD SPECIMENOrdering Facility: [facility] Address: [address] [place] [address] Performed By: #### L [id number] ####[facility] [id number] [place] [address] [place] COMMENT (SERUM PROT ELECTRO) Monoclonal Protein analysis (immunofixation) is not indicated. Normal [facility] Comment on above: Order Comment: Speci men Type: BLOOD SPECIMENOrdering Facility: [facility] Address: [address] [place] [address] Performed By: #### L [id number] ####[facility] [id number] [place] [id number] [place] Gamma globulin Elph [Mass/Vol] 0.72 g/dL Normal 0.53-1.51 [facility] Comment on above: Order Comment: Speci men Type: BLOOD SPECIMENOrdering Facility: [facility] Address: [address] [place] [address] Performed By: #### L [id number] ####[facility] LABIA [id number] [place] [id number] [place] M-PROTEIN LOCATION Normal [facility] Comment on above: Order Comment: Speci men Type: BLOOD SPECIMENOrdering Facility: [facility] Address: [address] [place] [address] Result Comment: Not Applicable. Performed By: #### L [id number] ####[facility] LABCLIA [id number] [address] [address] [place] Protein Fractions [Interp] No definitive M protein is identified on protein electrophoresis. Normal No definitive M protein is identified on protein electrophore sis. [facility] Comment on above: Order Comment: Speci men Type: BLOOD SPECIMENOrdering Facility: [facility] Address: [address] [place] [address] Performed By: #### L [id number] ####[facility] LABCLIA [id number] [place] [address] [place] Protein.monoclonal Elph [Mass/Vol] 0.00 g/dL Normal <=0.00 [facility] Comment on above: Order Comment: Speci men Type: BLOOD SPECIMENOrdering Facility: [facility] Address: [address] [place] [address] Performed By: #### L [id number] ####[facility] LABCLIA [id number] [place] [address] [place] SPE STAFF REVIEW Reviewed by Bossman Delvalle MD, Ph.D ([id number]) Normal [facility] Comment on above: Order Comment: Speci men Type: BLOOD SPECIMENOrdering Facility: [facility] Address: [address] [place] [address] Performed By: #### L [id number] ####[facility] LABIA [id number] [place] [id number] [place] Prot SerPl-mCncon 12-19-2024 Protein [Mass/Vol] 6.9 g/dL Normal 6.3-8.0 [facility] Comment on above: Order Comment: Speci men Type: BLOOD SPECIMENOrdering Facility: [facility] Address: [address] [place] [address] Performed By: #### 2 885-2, 9, 8, 6-3 ####[facility] LABIA [id number] [place] [address] [place] Reagin and Treponema pallidu m IgG and IgM [Interp]on 12-19-2024 T. pallidum IgG+IgM IA Ql (S) Non-Reactive Normal Nonreactive [facility] Comment on above: Order Comment: Speci men Type: BLOOD SPECIMENOrdering Facility: [facility] Address: [address] [place] [address] Performed By: #### 7 3752-8 ####[facility] LABIA [id number] [place] [address] [place] Reagin+T pallidum IgG+IgM Se rPl-Impon 12-19-2024 Reagin and Treponema pallidum IgG and IgM [Interp] Cannot exclude recent Treponemal infection if specimen collected within 7-10 days after appearance of suspect lesions or 2-3 weeks after an exposure. Clinical correlation is required. Normal [facility] Comment on above: Order Comment: Speci men Type: BLOOD SPECIMENOrdering Facility: [facility] Address: [address] [place] [address] Performed By: #### 7 3752-8 ####[facility] LABIA [id number] [place] [id number] [place] TSH SerPl-aCncon 12-19-2024 TSH Qn 1.100 m[IU]/L Normal 0.270-4.200 [facility] Comment on above: Order Comment: Speci men Type: BLOOD SPECIMENOrdering Facility: [facility] Address: [address] [place] [address] Performed By: #### 2 885-2, 9, 8, 6-3 ####[facility]CLIA [id number] [place] [id number] [place] Vit B12 SerPl-mCncon 025 Cobalamin (Vitamin B12) [Mass/Vol] 486 pg/mL Normal 232-1245 [facility] Comment on above: Order Comment: Speci men Type: BLOOD SPECIMENOrdering Facility: [facility] Address: [address] [place] [address] Performed By: #### 2 885-2, 2132-9, 2284-8, 3016-3 ####[facility] LABCLIA [id number] [place] CNPNon 11-23-2024 [facility] Telephone ([place]) -- [place] RAMSEY ([id number]) 1960 F Date Time Provider Department 11/23/24 TERESA AGUILAR [place] During your visit today, we recorded the following information about you: Lennie Khan MA 11/23/2024 11:53 AM Signed Pt was in for OV with Nga today and asked about her disability paperwork. Our office has not received any disability paperwork. Called and spoke with pt, she stated that the letter Nga wrote for her yesterday 11/22/24 should be all that is needed. Nothing further needed at this time. Lennie Khan MA Allergies As of Date: 11/23/2024 Noted Allergy Reaction DEMORAL (MEPERIDINE) 02/03/2008 2 - Rash DESYREL (TRAZODONE HCL) 06/30/2006 2 - Rash DOXYCYCLINE 07/15/2010 4 - Hives ERYTHROMYCIN 06/30/2006 2 - Rash LEVAQUIN (LEVOFLOXACIN) 03/29/2024 2 - Rash MORPHINE 06/30/2006 7 - Swelling PREDNISONE 05/13/2010 2 - Rash Date Reviewed: 11/22/2024 Reviewed by: Anna Russo LPN - Fully Assessed Reason for Visit: Question [2916] Cmt: Re: Disability forms/Letter Prescriptions as of 11/23/2024 - meloxicam (MOBIC) 7.5 mg tablet Take 1 tablet by mouth once daily. - cyclobenzaprine (FLEXERIL) 10 mg tablet Take 1 tablet by mouth three times a day. - fluticasone-salmeterol (ADVAIR DISKUS) 250-50 mcg/dose inhaler Inhale 1 Puff as instructed two times a day. - OXYGEN, HOME THERAPY, 2 L/min by Nasal Cannula route continuous. - cholecalciferol, Vitamin D3, (VITAMIN D3) 1,250 mcg (50,000 unit) cap capsule Take 1 capsule by mouth one time a week. - ondansetron (ZOFRAN) 4 mg tablet Take 1 tablet by mouth every 8 hours as needed for up to 10 doses. - pantoprazole DR (PROTONIX) 20 mg tablet Take 1 tablet by mouth daily before breakfast. Take on empty stomach, 1/2 hr before meal. - melatonin 10 mg tab Take 1 [...] twice daily. Problem List As Of Date 11/23/2024 Noted Resolved TOBACCO USE DISORDER [F17.200] Acute bronchitis with chronic obstructive pulmo*07/01/2006 BENIGN PARXYSMAL VERTIGO [H81.10] 04/06/2007 LUMBAGO [M54.50] 05/02/2007 Bipolar I disorder, most recent episode (or cur*05/02/2007 GERD (gastroesophageal reflux disease) [K21.9] 04/21/2011 History of lumbar discectomy [Z98.890] 08/17/2011 Lumbar disc displacement without myelopathy [M5*08/17/2011 DDD (degenerative disc disease), lumbar [M51.36*08/17/2011 Lumbar radiculopathy [M54.16] 11/02/2011 Lumbar spondylosis [M47.816] [...] artificial shoulder joint [Z9*08/18/2023 Encounter Status:Closed by LENNIE KHAN on 11/23/24 Normal [facility] CNOVon 11-22-2024 CNOV Office Visit (FAMPWS ) -- [place] RAMSEY ([id number]) 1960 F Date Time Provider Department 11/22/24 2:40 PM [facility] your visit today, we recorded the following information about you: Pulse Respiration Blood pressure Weight 107/minute 16/minute 110/80 55.2 kg Nga Ferrer APRN.WARD SERVICE SUPERVISOR 11/22/2024 2:19 PM Signed Office will check with PCP about disability papers. Letter provided for housing Recommend scheduling consult with Neurology Covid booster given today. Nga Ferrer APRN.CNP 11/22/2024 3:57 PM Signed This is a 63 year old female [...] Following with Dr. Husain, pain management in [place]. Not taking medication at this time. Has [...] Schizophrenia (HCC) follows with Dr Bill at [facility] Tobacco use disorder 1/2 ppd since [...] ORTHOPAEDICS Right 08/04/2023 Shoulder replacement SURGICAL ARTHROSCOPY AFM W/CORACOACRM LIGM RLS Right 11/27/2020 Right shoulder [...] Inhale 2 Puffs as instructed every 4 hour (more content not included)... [facility] [place] RAMSEY ([id number]) 1960 F Date Time Provider Department 10/17/24 [facility] During your visit today, we recorded the following information about you: Miriam Arciniega LPN 10/17/2024 3:00 PM Signed Pt calling [facility] she is disabled due to her back. [facility] FAX: [phone]. Please advise pt when this is done or if there is any problem. RUPA Kyle Laurie Lynn, LPN 10/20/2024 9:06 AM Signed Pt calling to check status on letter. Please advise pt. RUPA Kyle Laurie Lynn, LPN 11/02/2024 8:13 AM Signed Please advise pt if you are willing to do the letter for her. RUPA Kyle Laurie Lynn, LPN 11/09/2024 8:13 AM Signed Spoke pt and scheduled her for an office visit to discuss getting a letter for housing. Miriam Arciniega LPN Allergies As of Date: 10/17/2024 Noted Allergy Reaction DEMORAL (MEPERIDINE) 02/03/2008 2 - Rash DESYREL (TRAZODONE HCL) 06/30/2006 2 - Rash DOXYCYCLINE 07/15/2010 4 - Hives ERYTHROMYCIN 06/30/2006 2 - Rash LEVAQUIN (LEVOFLOXACIN) 03/29/2024 2 - Rash MORPHINE 06/30/2006 7 - Swelling PREDNISONE 05/13/2010 2 - Rash Date Reviewed: 06/09/2024 Reviewed by: Anna Russo LPN - Fully Assessed Reason for Visit: letter [Other] Prescriptions as of 11/09/2024 - meloxicam (MOBIC) 7.5 mg tablet Take 1 tablet by mouth once daily. - cyclobenzaprine (FLEXERIL) 10 mg tablet Take 1 tablet by mouth three times a day. - fluticasone-salmeterol (ADVAIR DISKUS) 250-50 mcg/dose inhaler Inhale 1 Puff as instructed two times a day. - OXYGEN, HOME THERAPY, 2 L/min by Nasal Cannula route continuous. - cholecalciferol, Vitamin D3, (VITAMIN D3) 1,250 mcg (50,000 unit) cap capsule Take 1 capsule by mouth one time a week. - ondansetron (ZOFRAN) 4 mg tablet Take 1 tablet by mouth every 8 hours as needed for up to 10 doses. - pantoprazole DR (PROTONIX) 20 mg tablet Take 1 tablet by mouth daily before breakfast. Take on empty stomach, 1/2 hr before meal. - melatonin 10 mg tab Take 1 [...] twice daily. Problem List As Of Date 10/17/2024 Noted Resolved TOBACCO USE DISORDER [F17.200] Acute bronchitis with chronic obstructive pulmo*07/01/2006 BENIGN PARXYSMAL VERTIGO [H81.10] 04/06/2007 LUMBAGO [M54.50] 05/02/2007 Bipolar I disorder, most recent episode (or cur*05/02/2007 GERD (gastroesophageal reflux disease) [K21.9] 04/21/2011 History of lumbar discectomy [Z98.890] 08/17/2011 Lumbar disc displacement without myelopathy [M5*08/17/2011 DDD (degenerative disc disease), lumbar [M51.36*08/17/2011 Lumbar radiculopathy [M54.16] 11/02/2011 Lumbar spondylosis [M47.816] [...] artificial shoulder joint [Z9*08/18/2023 Encounter Status:Closed by MIRIAM ARCINIEGA on 11/09/24 [facility] 10-09-2024 [facility] Telephone (FAMPWS) -- [place] RAMSEY ([id number]) 1960 F Date Time Provider Department 10/09/24 TERESA AGUILAR [facility] [facility] During your visit today, we recorded the following information about you: Lennie Khan MA 10/09/2024 1:41 PM Signed Type of letter/form/fax request - Plan of Treatment for Adult day care Form received from fax on 1 floor and placed on MD desk (Dr. Aguilar) for completion. Completed form needs to be faxed to [facility] at [phone]. Route to [place] when form completed for processing Chaparro Christianson MA 10/09/2024 4:49 PM Signed Form signed and faxed back to information below. Chaparro Christianson MA Allergies As of Date: 10/09/2024 Noted Allergy Reaction DEMORAL (MEPERIDINE) 02/03/2008 2 - Rash DESYREL (TRAZODONE HCL) 06/30/2006 2 - Rash DOXYCYCLINE 07/15/2010 4 - Hives ERYTHROMYCIN 06/30/2006 2 - Rash LEVAQUIN (LEVOFLOXACIN) 03/29/2024 2 - Rash MORPHINE 06/30/2006 7 - Swelling PREDNISONE 05/13/2010 2 - Rash Date Reviewed: 06/09/2024 Reviewed by: Anna Russo LPN - Fully Assessed Reason for Visit: Forms [913] Cmt: [facility] Prescriptions as of 10/09/2024 - fluticasone-salmeterol (ADVAIR DISKUS) 250-50 mcg/dose inhaler Inhale 1 Puff as instructed two times a day. - meloxicam (MOBIC) 7.5 mg tablet Take 1 tablet by mouth once daily. - meclizine (ANTIVERT) 25 mg tab Take 1 tablet by mouth every 6 hours as needed (dizziness). - cyclobenzaprine (FLEXERIL) 10 mg tablet Take 1 tablet by mouth three times a day. - OXYGEN, HOME THERAPY, 2 L/min by Nasal Cannula route continuous. - cholecalciferol, Vitamin D3, (VITAMIN D3) 1,250 mcg (50,000 unit) cap capsule Take 1 capsule by mouth one time a week. - ondansetron (ZOFRAN) 4 mg tablet Take 1 tablet by mouth every 8 hours as needed for up to 10 doses. - pantoprazole DR (PROTONIX) 20 mg tablet Take 1 tablet by mouth daily before breakfast. Take on empty stomach, 1/2 hr before meal. - melatonin 10 mg tab Take 1 [...] twice daily. Problem List As Of Date 10/09/2024 Noted Resolved TOBACCO USE DISORDER [F17.200] Acute bronchitis with chronic obstructive pulmo*07/01/2006 BENIGN PARXYSMAL VERTIGO [H81.10] 04/06/2007 LUMBAGO [M54.50] 05/02/2007 Bipolar I disorder, most recent episode (or cur*05/02/2007 GERD (gastroesophageal reflux disease) [K21.9] 04/21/2011 History of lumbar discectomy [Z98.890] 08/17/2011 Lumbar disc displacement without myelopathy [M5*08/17/2011 DDD (degenerative disc disease), lumbar [M51.36*08/17/2011 Lumbar radiculopathy [M54.16] 11/02/2011 Lumbar spondylosis [M47.816] [...] artificial shoulder joint [Z9*08/18/2023 Encounter Status:Closed by CHAPARRO CHRISTIANSON on 10/09/24 Normal [facility] XR SPINE LUMBOSACRAL 2 OR 3 VIEWSon 09-07-2024 XR SPINE LUMBOSACRAL 2 OR 3 VIEWS ORIGINAL EXAMINATION: XRAY VIEWS OF THE LUMBAR [...] Date: 09/07/2024 6:51:55 PM Ordering Provider: JOE CLARK [facility] Toby 07-27-2024 CNPN Telephone ([facility]) -- [place] RAMSEY ([id number]) 1960 F Date Time Provider Department 07/27/24 KILEY HARRIS [facility] During your visit today, we recorded the following information about you: Kiley Harris APRN.CNP 07/27/2024 2:57 PM Signed Attempted to call patient, no voicemail set up. Plan to discuss: New tree in bud opacities. I reviewed the scan with DR. Loo and she would like to get repeat sputum cultures. I have placed orders and she should keep the follow up as scheduled with Betzy FARAH 08/16/2024. Kiley Harris APRN.[facility] 08/04/2024 1:11 PM Signed Patient notified. She will call her insurance to get a ride to merchandise pickup/receiving associate a specimen cup and then to return the specimen. Allergies As of Date: 07/27/2024 Noted Allergy Reaction DEMORAL (MEPERIDINE) 02/03/2008 2 - Rash DESYREL (TRAZODONE HCL) 06/30/2006 2 - Rash DOXYCYCLINE 07/15/2010 4 - Hives ERYTHROMYCIN 06/30/2006 2 - Rash LEVAQUIN (LEVOFLOXACIN) 03/29/2024 2 - Rash MORPHINE 06/30/2006 7 - Swelling PREDNISONE 05/13/2010 2 - Rash Date Reviewed: 06/09/2024 Reviewed by: Anna Russo LPN - Fully Assessed Reason for Visit: Results [95] Primary Visit Diagnosis:Persistent cough for 3 weeks or longer [R05.3] Order(s):RESPIRATORY CULTURE AND STAIN [SQRCULST] Order #: [id number]. #:[id number] [id number] CULT + STAIN [SQAFC] Order #: [id number]. #:[id number] Prescriptions as of 08/04/2024 - cyclobenzaprine (FLEXERIL) 10 mg tablet Take 1 tablet by mouth three times a day. - meloxicam (MOBIC) 7.5 mg tablet Take 1 tablet by mouth once daily. - OXYGEN, HOME THERAPY, 2 L/min by Nasal Cannula route continuous. - cholecalciferol, Vitamin D3, (VITAMIN D3) 1,250 mcg (50,000 unit) cap capsule Take 1 capsule by mouth one time a week. - ondansetron (ZOFRAN) 4 mg tablet Take 1 tablet by mouth every 8 hours as needed for up to 10 doses. - pantoprazole DR (PROTONIX) 20 mg tablet Take 1 tablet by mouth daily before breakfast. Take on empty stomach, 1/2 hr before meal. - fluticasone-salmeterol (ADVAIR DISKUS) 250-50 mcg/dose inhaler [...] twice daily. Problem List As Of Date 07/27/2024 Noted Resolved TOBACCO USE DISORDER [F17.200] Acute bronchitis with chronic obstructive pulmo*07/01/2006 BENIGN PARXYSMAL VERTIGO [H81.10] 04/06/2007 LUMBAGO [M54.50] 05/02/2007 Bipolar I disorder, most recent episode (or cur*05/02/2007 GERD (gastroesophageal reflux disease) [K21.9] 04/21/2011 History of lumbar discectomy [Z98.890] 08/17/2011 Lumbar disc displacement without myelopathy [M5*08/17/2011 DDD (degenerative disc disease), lumbar [M51.36*08/17/2011 Lumbar radiculopathy [M54.16] 11/02/2011 Lumbar spondylosis [M47.816] [...] artificial shoulder joint [Z9*08/18/2023 Encounter Status:Closed by KILEY HARRIS on (more content not included)... Normal [facility] CNPNon 07-17-2024 CNPN Telephone (FAMPWS) -- [place] RAMSEY ([id number]) 1960 F Date Time Provider Department 07/17/24 TERESA AGUILAR [place] During your visit today, we recorded the following information about you: Lennie Khan MA 07/17/2024 2:14 PM Signed Type of letter/form/fax request - [facility] 90 day orders for adult day care services Form received from fax on 1 floor and placed on MD desk (Dr. Aguilar) for completion. Completed form needs to be faxed to [facility] at [phone]. Route to [place] when form completed for processing Chaparro Christianson MA 07/17/2024 7:33 PM Signed Signed paperwork and most recent OV attached to forms. Faxed to number below. Chaparro Christianson MA Allergies As of Date: 07/17/2024 Noted Allergy Reaction DEMORAL (MEPERIDINE) 02/03/2008 2 - Rash DESYREL (TRAZODONE HCL) 06/30/2006 2 - Rash DOXYCYCLINE 07/15/2010 4 - Hives ERYTHROMYCIN 06/30/2006 2 - Rash LEVAQUIN (LEVOFLOXACIN) 03/29/2024 2 - Rash MORPHINE 06/30/2006 7 - Swelling PREDNISONE 05/13/2010 2 - Rash Date Reviewed: 06/09/2024 Reviewed by: Anna Russo LPN - Fully Assessed Reason for Visit: Forms [513] Cmt: [facility] Prescriptions as of 07/17/2024 - meloxicam (MOBIC) 7.5 mg tablet Take 1 tablet by mouth once daily. - OXYGEN, HOME THERAPY, 2 L/min by [...] empty stomach, 1/2 hr before meal. - fluticasone-salmeterol (ADVAIR DISKUS) 250-50 mcg/dose inhaler [...] twice daily. Problem List As Of Date 07/17/2024 Noted Resolved TOBACCO USE DISORDER [F17.200] Acute bronchitis with chronic obstructive pulmo*07/01/2006 BENIGN PARXYSMAL VERTIGO [H81.10] 04/06/2007 LUMBAGO [M54.50] 05/02/2007 Bipolar I disorder, most recent episode (or cur*05/02/2007 GERD (gastroesophageal reflux disease) [K21.9] 04/21/2011 History of lumbar discectomy [Z98.890] 08/17/2011 Lumbar disc displacement without myelopathy [M5*08/17/2011 DDD (degenerative disc disease), lumbar [M51.36*08/17/2011 Lumbar radiculopathy [M54.16] 11/02/2011 Lumbar spondylosis [M47.816] [...] artificial shoulder joint [Z9*08/18/2023 Encounter Status:Closed by CHAPARRO CHRISTIANSON on 07/17/24 Normal [facility] CT CHEST WO IVCONon 07-11-20 CT CHEST WO IVCON * * *Final Report* * * DATE OF EXAM: Jul 11 2024 2:34PM [facility] 0541 - CT CHEST WO IVCON / PROCEDURE REASON: Lung nodules * * * * Physician Interpretation * * * * EXAMINATION: CHEST CT WITHOUT CONTRAST CLINICAL HISTORY: Lung nodules Technique: Spiral CT acquisition of the chest from the thoracic inlet to the upper abdomen without contrast. MQ: [id number] CT Radiation dose: Integrated Dose-length product (DLP) for this visit = 122 mGy*cm CT Dose Reduction Employed: Automated exposure control(AEC) and iterative recon Comparison: CT chest 02/21/2024 RESULT: Limitations: None. Lines, tubes, and devices: None. Lung parenchyma and airways: Upper lobe predominant centrilobular emphysema. There is increased number of clustered nodules in the right lower lobe in a tree-in-bud distribution. There are some new clustered nodules in the medial left lower lobe in a tree-in-bud distribution. No consolidation. Bilateral bronchial wall thickening and scattered mucous plugging. Central airways are patent. Pleural space: No pleural effusion. No pleural thickening. Lower neck, lymph nodes, and mediastinum: The imaged thyroid gland is normal. Prominent AP window and subcarinal lymph nodes measure up to 1.1 cm short axis. Heart, pericardium, and thoracic vessels: The thoracic aorta and main pulmonary artery are normal in caliber. The cardiac chambers are normal in size. Mild coronary artery atherosclerotic calcifications are noted, although the study is not optimized for coronary assessment. No pericardial effusion or thickening. Bones and soft tissues: No destructive bone lesion. Degenerative disease of the thoracic spine. Right shoulder prosthesis. Chest wall is unremarkable. Upper abdomen: No abnormality in the imaged upper abdomen. Localizer images: No additional findings. IMPRESSION: 1. Increased number of clustered nodules in a tree-in-bud distribution in the right lower lobe. New clustered nodules in a tree-in-bud distribution in the medial left lower lobe. These are most likely infectious/inflammatory. 2. Bilateral bronchial wall thickening and scattered mucous plugging 3. Prominent mediastinal lymph nodes which may be reactive Teacher Physically Impaired: QUYEN Transcribe Date/Time: Nov 5 2024 3:22P Dictated by : MILLY RUSSELL MD This examination was interpreted and the report reviewed and electronically signed by: MILLY RUSSELL MD on Jul 18 2024 3:39PM EST [id number] Normal [facility] [place] RAMSE[place] ([id number]) 1960 F Date Time Provider Department 06/14/24 NGA FERRER [place] During your visit today, we recorded the following information about you: Nga Ferrer APRN.CNP 06/14/2024 7:33 AM Signed Can you please call the patient and [...] scan as soon as possible. Nga Ferrer APRN.[place] LPN 06/14/2024 8:45 AM Signed Phoned patient and went over results, notes from Nga Ferrer SENIOR SOFTWARE TESTER with understanding. Patient said she is not having any worsening symptoms, her MRI is scheduled for 06/19/2024. Nga Ferrer APRN.CNP 06/14/2024 10:21 AM Signed Noted, thank you. Nga Ferrer APRN.WARD SERVICE SUPERVISOR Allergies As of Date: 06/14/2024 Noted Allergy Reaction DEMORAL (MEPERIDINE) 02/03/2008 2 - Rash DESYREL (TRAZODONE HCL) 06/30/2006 2 - Rash DOXYCYCLINE 07/15/2010 4 - Hives ERYTHROMYCIN 06/30/2006 2 - Rash LEVAQUIN (LEVOFLOXACIN) 03/29/2024 2 - Rash MORPHINE 06/30/2006 7 - Swelling PREDNISONE 05/13/2010 2 - Rash Date Reviewed: 06/09/2024 Reviewed by: Anna Russo LPN - Fully Assessed Reason for Visit: Results [95] Cmt: Labs Prescriptions as of 06/14/2024 - meloxicam (MOBIC) 7.5 mg tablet Take 1 tablet by mouth once daily. - OXYGEN, HOME THERAPY, 2 L/min by [...] empty stomach, 1/2 hr before meal. - fluticasone-salmeterol (ADVAIR DISKUS) 250-50 mcg/dose inhaler [...] twice daily. Problem List As Of Date 06/14/2024 Noted Resolved TOBACCO USE DISORDER [F17.200] Acute bronchitis with chronic obstructive pulmo*07/01/2006 BENIGN PARXYSMAL VERTIGO [H81.10] 04/06/2007 LUMBAGO [M54.50] 05/02/2007 Bipolar I disorder, most recent episode (or cur*05/02/2007 GERD (gastroesophageal reflux disease) [K21.9] 04/21/2011 History of lumbar discectomy [Z98.890] 08/17/2011 Lumbar disc displacement without myelopathy [M5*08/17/2011 DDD (degenerative disc disease), lumbar [M51.36*08/17/2011 Lumbar radiculopathy [M54.16] 11/02/2011 Lumbar spondylosis [M47.816] [...] failure (HCC) [J9*07/21/2023 Presence of right artificial (more content not included)... Normal [facility] CBC W Auto Differential pane l (Bld)on 06-09-2024 Basophils (Bld) [#/Vol] 0.06 10*3/uL [facility] Basophils/100 WBC (Bld) 0.8 % [facility] Differential cell count method Nom (Bld) Auto [facility] Eosinophils (Bld) [#/Vol] 0.39 10*3/uL [facility] Eosinophils/100 WBC (Bld) 5.4 % [facility] Erythrocyte distribution width (RBC) [Ratio] 13.2 % 11.5 - 15.0 % [facility] Hematocrit (Bld) [Volume fraction] 43.8 % 36.0 - 46.0 % [facility] Hemoglobin (Bld) [Mass/Vol] 14.3 g/dL 11.5 - 15.5 g/dL [facility] Immature granulocytes (Bld) [#/Vol] [facility] Immature granulocytes/100 WBC (Bld) 0.1 % [facility] Lymphocytes (Bld) [#/Vol] 2.75 10*3/uL [facility] Lymphocytes/100 WBC (Bld) 38.4 % [facility] MCH (RBC) [Entitic mass] 29.7 pg 26.0 - 34.0 pg [facility] MCHC (RBC) [Mass/Vol] 32.6 g/dL 30.5 - 36.0 g/dL [facility] MCV (RBC) [Entitic vol] 91.1 fL 80.0 - 100.0 fL [facility] Monocytes (Bld) [#/Vol] 0.84 10*3/uL [facility] Monocytes/100 WBC (Bld) 11.7 % [facility] Neutrophils (Bld) [#/Vol] 3.12 10*3/uL [facility] Neutrophils/100 WBC (Bld) 43.6 % [facility] Nucleated RBC (Bld) [#/Vol] [facility] Nucleated RBC/100 WBC (Bld) [Ratio] 0.0 % /100 WBC [facility] Platelet mean volume (Bld) [Entitic vol] 9.7 fL 9.0 - 12.7 fL [facility] Platelets (Bld) [#/Vol] 344 10*3/uL [facility] RBC (Bld) [#/Vol] 4.81 10*6/uL 3.90 - 5.2 0 m/uL [facility] WBC (Bld) [#/Vol] 7.17 10*3/uL [facility] Basophils (Bld) [#/Vol] 0.06 10*3/uL Normal <0.11 [facility] Comment on above: Order Comment: Speci men Type: BLOOD SPECIMENOrdering Facility: [facility] Address: [address] [place] [address] Performed By: #### 5 7021-8 ####[facility] LABCLIA [id number] [place] [address] [place] Basophils/100 WBC (Bld) 0.8 % Normal [facility] Comment on above: Order Comment: Speci men Type: BLOOD SPECIMENOrdering Facility: [facility] Address: [address] [place] [address] Performed By: #### 5 7021-8 ####[facility] LABCLIA [id number] [place] [address] [place] Differential cell count method Nom (Bld) Auto Normal [facility] Comment on above: Order Comment: Speci men Type: BLOOD SPECIMENOrdering Facility: [facility] Address: [address] [place] [address] Performed By: #### 5 7021-8 ####[facility] LABCLIA [id number] [place] [address] [place] Eosinophils (Bld) [#/Vol] 0.39 10*3/uL Normal <0.46 [facility] Comment on above: Order Comment: Speci men Type: BLOOD SPECIMENOrdering Facility: [facility] Address: [address] [place] [address] Performed By: #### 5 7021-8 ####[facility] LABCLIA [id number] [place] [address] [place] Eosinophils/100 WBC (Bld) 5.4 % Normal [facility] Comment on above: Order Comment: Speci men Type: BLOOD SPECIMENOrdering Facility: [facility] Address: [address] [place] [address] Performed By: #### 5 7021-8 ####[facility] LABCLIA [id number] [place] [address] [place] Erythrocyte distribution width (RBC) [Ratio] 13.2 % Normal 11.5-15.0 [facility] Comment on above: Order Comment: Speci men Type: BLOOD SPECIMENOrdering Facility: [facility] Address: [address] [place] [address] Performed By: #### 5 7021-8 ####[facility] LABCLIA [id number] [place] [address] [place] Hematocrit (Bld) [Volume fraction] 43.8 % Normal 36.0-46.0 [facility] Comment on above: Order Comment: Speci men Type: BLOOD SPECIMENOrdering Facility: [facility] Address: [address] [place] [address] Performed By: #### 5 7021-8 ####[facility] LABCLIA [id number] [place] [address] [place] Hemoglobin (Bld) [Mass/Vol] 14.3 g/dL Normal 11.5-15.5 [facility] Comment on above: Order Comment: Speci men Type: BLOOD SPECIMENOrdering Facility: [facility] Address: [address] [place] [address] Performed By: #### 5 7021-8 ####[facility] LABCLIA [id number] [place] [address] [place] Immature granulocytes (Bld) [#/Vol] 10*3/uL Normal <0.10 [facility] Comment on above: Order Comment: Speci men Type: BLOOD SPECIMENOrdering Facility: [facility] Address: [address] [place] [address] Performed By: #### 5 7021-8 ####[facility] LABCLIA [id number] [place] [address] [place] [place] Immature granulocytes/100 WBC (Bld) 0.1 % Normal [facility] Comment on above: Order Comment: Speci men Type: BLOOD SPECIMENOrdering Facility: [facility] Address: [address] [place] [address] Performed By: #### 5 7021-8 ####[facility] LABCLIA [id number] [place] [address] [place] Lymphocytes (Bld) [#/Vol] 2.75 10*3/uL Normal 1.00-4.00 [facility] Comment on above: Order Comment: Speci men Type: BLOOD SPECIMENOrdering Facility: [facility] Address: [address] [place] [address] Performed By: #### 5 7021-8 ####[facility] LABCLIA [id number] [place] [address] [place] Lymphocytes/100 WBC (Bld) 38.4 % Normal [facility] Comment on above: Order Comment: Speci men Type: BLOOD SPECIMENOrdering Facility: [facility] Address: [address] [place] [address] Performed By: #### 5 7021-8 ####[facility] LABCLIA [id number] [place] [address] [place] MCH (RBC) [Entitic mass] 29.7 pg Normal 26.0-34.0 [facility] Comment on above: Order Comment: Speci men Type: BLOOD SPECIMENOrdering Facility: [facility] Address: [address] [place] [address] Performed By: #### 5 7021-8 ####[facility] LABCLIA [id number] [place] [address] [place] MCHC (RBC) [Mass/Vol] 32.6 g/dL Normal 30.5-36.0 [facility] Comment on above: Order Comment: Speci men Type: BLOOD SPECIMENOrdering Facility: [facility] Address: [address] [place] [address] Performed By: #### 5 7021-8 ####[facility] LABCLIA [id number] [place] [address] [place] MCV (RBC) [Entitic vol] 91.1 fL Normal 80.0-100.0 [facility] Comment on above: Order Comment: Speci men Type: BLOOD SPECIMENOrdering Facility: [facility] Address: [address] [place] [address] Performed By: #### 5 7021-8 ####[facility] LABIA [id number] [place] [address] [place] Monocytes (Bld) [#/Vol] 0.84 10*3/uL Normal <0.87 [facility] Comment on above: Order Comment: Speci men Type: BLOOD SPECIMENOrdering Facility: [facility] Address: [address] [place] [address] Performed By: #### 5 7021-8 ####[facility] LABCLIA [id number] [place] [address] [place] Monocytes/100 WBC (Bld) 11.7 % Normal [facility] Comment on above: Order Comment: Speci men Type: BLOOD SPECIMENOrdering Facility: [facility] Address: [address] [place] [address] Performed By: #### 5 7021-8 ####[facility] LABCLIA [id number] [place] [address] [place] Neutrophils (Bld) [#/Vol] 3.12 10*3/uL Normal 1.45-7.50 [facility] Comment on above: Order Comment: Speci men Type: BLOOD SPECIMENOrdering Facility: [facility] Address: [address] [place] [address] Performed By: #### 5 7021-8 ####[facility] LABCLIA [id number] [place] [address] [place] Neutrophils/100 WBC (Bld) 43.6 % Normal [facility] Comment on above: Order Comment: Speci men Type: BLOOD SPECIMENOrdering Facility: [facility] Address: [address] [place] [address] Performed By: #### 5 7021-8 ####[facility] LABCLIA [id number] [place] [address] [place] Nucleated RBC (Bld) [#/Vol] 10*3/uL Normal <0.01 [facility] Comment on above: Order Comment: Speci men Type: BLOOD SPECIMENOrdering Facility: [facility] Address: [address] [place] [address] Performed By: #### 5 7021-8 ####[facility] LABCLIA [id number] [place] [address] [place] Nucleated RBC/100 WBC (Bld) [Ratio] 0.0 /100 WBC Normal [facility] Comment on above: Order Comment: Speci men Type: BLOOD SPECIMENOrdering Facility: [facility] Address: [address] [place] [address] Performed By: #### 5 7021-8 ####[facility] LABCLIA [id number] [place] [address] [place] Platelet mean volume (Bld) [Entitic vol] 9.7 fL Normal 9.0-12.7 [facility] Comment on above: Order Comment: Speci men Type: BLOOD SPECIMENOrdering Facility: [facility] Address: [address] [place] [address] Performed By: #### 5 7021-8 ####[facility] LABIA [id number] [place] [address] [place] Platelets (Bld) [#/Vol] 344 10*3/uL Normal 150-400 [facility] Comment on above: Order Comment: Speci men Type: BLOOD SPECIMENOrdering Facility: [facility] Address: [address] [place] [address] Performed By: #### 5 7021-8 ####[facility] LABIA [id number] [place] [address] [place] RBC (Bld) [#/Vol] 4.81 10*6/uL Normal 3.90-5.20 [facility] Comment on above: Order Comment: Speci men Type: BLOOD SPECIMENOrdering Facility: [facility] Address: [address] [place] [address] Performed By: #### 5 7021-8 ####[facility] LABIA [id number] [place] [address] [place] WBC (Bld) [#/Vol] 7.17 10*3/uL Normal 3.70-11.00 [facility] Comment on above: Order Comment: Speci men Type: BLOOD SPECIMENOrdering Facility: [facility] Address: [address] [place] [address] Performed By: #### 5 7021-8 ####[facility] LABIA [id number] [place] [address] [place] CNOVon 06-09-2024 CNOV Office Visit ([facility] ) -- ALB[place]IA RAMSEY ([id number]) 1960 F Date Time Provider Department 06/09/24 9:20 AM NGA FERRER During your visit today, we recorded the following information about you: Pulse Respiration Blood pressure Weight 95/minute 20/minute 127/82 52.9 kg Nga Ferrer APRN.CNP 06/09/2024 3:34 PM Signed This is a 63 year old female [...] Schizophrenia (HCC) follows with Dr Bill at [facility] Snoring Tobacco use disorder 1/2 ppd [...] Relation Age of Onset Blood Disease Mother (more content not included)... Normal [facility] Comprehensive metabolic 2000 panelon 06-09-2024 Albumin [Mass/Vol] 4.4 g/dL 3.9 - 4.9 g/dL [facility] ALP [Catalytic activity/Vol] 89 U/L 34 - 123 U/L [facility] ALT [Catalytic activity/Vol] 8 U/L 7 - 38 U/L [facility] Anion gap [Moles/Vol] 10 mmol/L 8 - 15 mmol/L [facility] AST [Catalytic activity/Vol] 17 U/L 13 - 35 U/L [facility] Bilirubin [Mass/Vol] 0.3 mg/dL 0.2 - 1 .3 mg/dL [facility] Calcium [Mass/Vol] 10.1 mg/dL 8.5 - 10. 2 mg/dL [facility] Chloride [Moles/Vol] 101 mmol/L 98 - 10 7 mmol/L [facility] CO2 [Moles/Vol] 27 mmol/L 22 - 30 mmol/L [facility] Creatinine [Mass/Vol] 0.50 mg/dL Low 0.58 - 0.96 mg/dL [facility] GFR/1.73 sq M.predicted among non-blacks MDRD (S/P/Bld) [Vol rate/Area] 105 mL/min/{1.73_m2} - PINF [facility] Comment on above: Estimated Glomerular Filtration Rate (eGFR) is calculated using the 2020 CKD-EPI creatinine equation. This equation utilizes serum creatinine, sex, and age as parameters. The creatinine assay has traceable calibration to isotope dilution-mass spectrometry. Refer to KDIGO guidelines for clinical interpretation. In patients with unstable renal function, e.g. those with acute kidney injury, the eGFR may not accurately reflect actual GFR. Glucose [Mass/Vol] 99 mg/dL 74 - 99 mg/dL [facility] Comment on above: The [place] Di[employer] Association (ADA) provides guidance for cutoff values for fasting glucose and random glucose. The ADA defines fasting as no caloric intake for at least 8 hours. Fasting plasma glucose results between 100 to 125 mg/dL indicate increased risk for diabetes (prediabetes). Fasting plasma glucose results greater than or equal to 126 mg/dL meet the criteria for diagnosis of diabetes. In the absence of unequivocal hyperglycemia, results should be confirmed by repeat testing. In a patient with classic symptoms of hyperglycemia or hyperglycemic crisis, random plasma glucose results greater than or equal to 200 mg/dL meet the criteria for diagnosis of diabetes. Reference: Standards of Medical Care in Diabetes 2016, [place] [employer]. Diabetes Care. 2016.39(Suppl 1). Interpretation and review of laboratory results Abnormal [facility] Potassium [Moles/Vol] 4.9 mmol/L 3.7 - 5.1 mmol/L [facility] Protein [Mass/Vol] 7.3 g/dL 6.3 - 8.0 g/dL [facility] Sodium [Moles/Vol] 138 mmol/L 136 - 144 mmol/L [facility] Urea nitrogen [Mass/Vol] 12 mg/dL 7 - 21 mg/dL [facility] Albumin [Mass/Vol] 4.4 g/dL Normal 3.9-4.9 [facility] Comment on above: Order Comment: Elisha cummings Type: BLOOD SPECIMENOrdering Facility: [facility] Address: [address] [place] [address] Performed By: #### 2 4323-8, 32013-5, 3024-7, 3016-3 ####[facility] LABCLIA [id number] [place] [address] [place] ALP [Catalytic activity/Vol] 89 U/L Normal 34-123 [facility] Comment on above: Order Comment: Elisha cummings Type: BLOOD SPECIMENOrdering Facility: [facility] Address: [address] [place] [address] Performed By: #### 2 4323-8, 69803-4, 3024-7, 3016-3 ####[facility] LABCLIA [id number] [place] [address] [place] ALT [Catalytic activity/Vol] 8 U/L Normal 7-38 [facility] Comment on above: Order Comment: Speci men Type: BLOOD SPECIMENOrdering Facility: [facility] Address: [address] [place] [address] Performed By: #### 2 4323-8, 80135-1, 4-7, 3016-3 ####[facility] LABCLIA [id number] [place] [address] [place] Anion gap [Moles/Vol] 10 mmol/L Normal 8-15 [facility] Comment on above: Order Comment: Speci men Type: BLOOD SPECIMENOrdering Facility: [facility] Address: [address] [place] [address] Performed By: #### 2 4323-8, 98268-3, 3023-7, 3016-3 ####[facility] LABCLIA [id number] [place] [address] [place] AST [Catalytic activity/Vol] 17 U/L Normal 13-35 [facility] Comment on above: Order Comment: Speci men Type: BLOOD SPECIMENOrdering Facility: [facility] Address: [address] [place], [place] [address] Performed By: #### 2 4323-8, 46367-0, 3024-7, 3016-3 ####[facility] LABCLIA [id number] [place] [id number] [place] Bilirubin [Mass/Vol] 0.3 mg/dL Normal 0.2-1.3 [facility] Comment on above: Order Comment: Speci men Type: BLOOD SPECIMENOrdering Facility: [facility] Address: [address] [place], [place] [address] Performed By: #### 2 4323-8, 36997-1, 3024-7, 3016-3 ####[facility] LABCLIA [id number] [address] [address] [place] Calcium [Mass/Vol] 10.1 mg/dL Normal 8.5-10.2 [facility] Comment on above: Order Comment: Speci men Type: BLOOD SPECIMENOrdering Facility: [facility] Address: [address] [place], [place] [address] Performed By: #### 2 4323-8, 40816-1, 4-7, 3016-3 ####[facility] LABIA [id number] [place] [address] [place] Chloride [Moles/Vol] 101 mmol/L Normal 98-107 [facility] Comment on above: Order Comment: Speci men Type: BLOOD SPECIMENOrdering Facility: [facility] Address: [address] [place], [place] [address] Performed By: #### 2 4323-8, 73423-0, 3023-7, 3016-3 ####[facility] LABIA [id number] [place] [id number] [place] CO2 [Moles/Vol] 27 mmol/L Normal 22-30 [facility] Comment on above: Order Comment: Speci men Type: BLOOD SPECIMENOrdering Facility: [facility] Address: [address] [place], [place] [address] Performed By: #### 2 4323-8, 92033-0, 4-7, 3016-3 ####[facility] LABIA [id number] [place] [id number] [place] Creatinine [Mass/Vol] 0.50 mg/dL Low 0.58-0.96 [facility] Comment on above: Order Comment: Speci men Type: BLOOD SPECIMENOrdering Facility: [facility] Address: [address] [place] [id number] Performed By: #### 2 4323-8, 70884-3, 3024-7, 3016-3 ####[facility] LABCLIA [id number] [place] [id number] [place] Creatinine and Glomerular filtration rate.predicted panel (S/P/Bld) 105 mL/min/1.73m??? Normal >=60 [facility] Comment on above: Order Comment: Elisha cummings Type: BLOOD SPECIMENOrdering Facility: [facility] Address: [address] [place] [address] Result Comment: Vijaya mated Glomerular Filtration Rate (eGFR) is calculated using the 2020 CKD-EPI creatinine equation. This equation utilizes serum creatinine, sex, and age as parameters. The creatinine assay has traceable calibration to isotope dilution-mass spectrometry. Refer to KDIGO guidelines for clinical interpretation. In patients with unstable renal function, e.g. those with acute kidney injury, the eGFR may not accurately reflect actual GFR. Performed By: #### 2 4323-8, 00187-4, 3024-7, 3016-3 ####[facility] LABCLIA [id number] [place] [id number] [place] Glucose [Mass/Vol] 99 mg/dL Normal 74-99 [facility] Comment on above: Order Comment: Elisha cummings Type: BLOOD SPECIMENOrdering Facility: [facility] Address: [address] [place] [address] Result Comment: The [place] Diabetes Association (ADA) provides guidance for cutoff values for fasting glucose and random glucose. The ADA defines fasting as no caloric intake for at least 8 hours. Fasting plasma glucose results between 100 to 125 mg/dL indicate increased risk for diabetes (prediabetes). Fasting plasma glucose results greater than or equal to 126 mg/dL meet the criteria for diagnosis of diabetes. In the absence of unequivocal hyperglycemia, results should be confirmed by repeat testing. In a patient with classic symptoms of hyperglycemia or hyperglycemic crisis, random plasma glucose results greater than or equal to 200 mg/dL meet the criteria for diagnosis of diabetes. Reference: Standards of Medical Care in Diabetes 2016, [place] [employer]. Diabetes Care. 2016.39(Suppl 1). Performed By: #### 2 4323-8, 62789-1, 4-7, 3016-3 ####[facility] LABCLIA [id number] [address] [address] [place] Potassium [Moles/Vol] 4.9 mmol/L Normal 3.7-5.1 [facility] Comment on above: Order Comment: Speci men Type: BLOOD SPECIMENOrdering Facility: [facility] Address: [address] [place], [place] [address] Performed By: #### 2 4323-8, 31831-7, 3023-7, 6-3 ####[facility] LABIA [id number] [address] [address] [place] Protein [Mass/Vol] 7.3 g/dL Normal 6.3-8.0 [facility] Comment on above: Order Comment: Speci men Type: BLOOD SPECIMENOrdering Facility: [facility] Address: [address] [place] [address] Performed By: #### 2 4323-8, 64176-3, 3023-7, 6-3 ####[facility] LABIA [id number] [address] [address] [place] Sodium [Moles/Vol] 138 mmol/L Normal 136-144 [facility] Comment on above: Order Comment: Speci men Type: BLOOD SPECIMENOrdering Facility: [facility] Address: [address] [place] [address] Performed By: #### 2 4323-8, 40455-9, 3023-7, 3016-3 ####[facility] LABIA [id number] [address] [address] [place] Urea nitrogen [Mass/Vol] 12 mg/dL Normal 7-21 [facility] Comment on above: Order Comment: Speci men Type: BLOOD SPECIMENOrdering Facility: [facility] Address: [address] [place] [address] Performed By: #### 2 4323-8, 08632-7, 3024-7, 3016-3 ####[facility] LABCLIA [id number] [address] [address] [place] FOLATE, SERUMon 06-09-2024 Folate [Mass/Vol] 9.9 ng/mL 4.7 - PINF ng/mL [facility] Folate SerPl-mCncon 06-09-20 Folate [Mass/Vol] 9.9 ng/mL Normal >4.[address] [facility] Comment on above: Order Comment: Speci men Type: BLOOD SPECIMENOrdering Facility: [facility] Address: [facility] [place] [address] Performed By: #### 2 284-8, 2132-9 ####[facility] LABCLIA [id number] [place] [id number] [place] MAGNESIUMon 06-09-2024 Magnesium [Mass/Vol] 2.0 mg/dL 1.7 - 2 .3 mg/dL [facility] Magnesium SerPl-ncon 06-09 Magnesium [Mass/Vol] 2.0 mg/dL Normal 1.7-2.3 [facility] Comment on above: Order Comment: Speci men Type: BLOOD SPECIMENOrdering Facility: [facility] Address: [facility] [place] [address] Performed By: #### 2 4323-8, 68698-9, 4-7, 3016-3 ####[facility] LABCLIA [id number] [address] [address] [place] Magnesium [Mass/Vol]on 06-09 Interpretation and review of laboratory results Normal [facility] No Panel Informationon 06-09 Interpretation and review of laboratory results Normal [facility] Interpretation and review of laboratory results Normal [facility] T4 FREE/FREE THYROXINEon Free T4 [Mass/Vol] 1.0 ng/dL 0.9 - 1.7 ng/dL [facility] T4 Free SerPl-mCncon 024 Free T4 [Mass/Vol] 1.0 ng/dL Normal 0.9-1.7 [facility] Comment on above: Order Comment: Speci men Type: BLOOD SPECIMENOrdering Facility: [facility] Address: [address] [place], [place] [address] Performed By: #### 2 4323-8, 43446-0, 3024-7, 3016-3 ####[facility] LABCLIA [id number] [address] [address] [place] THYROID STIMULATING HORMONEo n 06-09-2024 TSH Qn 1.230 m[IU]/L [facility] TSH SerPl-aCncon 06-09-2024 TSH Qn 1.230 m[IU]/L Normal 0.270-4.200 [facility] Comment on above: Order Comment: Speci men Type: BLOOD SPECIMENOrdering Facility: [facility] Address: [address] [place], [place] [address] Performed By: #### 2 4323-8, 47006-8, 4-7, 3016-3 ####[facility] LABCLIA [id number] [place] [id number] [place] VITAMIN B12on 06-09-2024 Cobalamin (Vitamin B12) [Mass/Vol] 483 pg/mL 232 - 1245 pg/mL [facility] Vit B12 SerPl-mCncon 024 Cobalamin (Vitamin B12) [Mass/Vol] 483 pg/mL Normal 232-1245 [facility] Comment on above: Order Comment: Speci men Type: BLOOD SPECIMENOrdering Facility: [facility] Address: [address] [place], [place] [address] Performed By: #### 2 284-8, 2132-9 ####[facility] LABCLIA [id number] [place] [id number] [place] CNPNon 06-05-2024 CNPN Telephone ([facility]) -- [place] RAMSEY ([id number]) 1960 F Date Time Provider Department 06/05/24 NGA FERRER [facility] During your visit today, we recorded the following information about you: Nga Ferrer APRN.[employer]ICE [employer]PER[employer]OR 06/05/2024 9:27 AM Signed Order placed for oximetry with ambulation as requested. Nga Ferrer APRN.[facility] Allergies As of Date: 06/05/2024 Noted Allergy Reaction DEMORAL (MEPERIDINE) 02/03/2008 2 - Rash DESYREL (TRAZODONE HCL) 06/30/2006 2 - Rash DOXYCYCLINE 07/15/2010 4 - Hives ERYTHROMYCIN 06/30/2006 2 - Rash LEVAQUIN (LEVOFLOXACIN) 03/29/2024 2 - Rash MORPHINE 06/30/2006 7 - Swelling PREDNISONE 05/13/2010 2 - Rash Date Reviewed: 06/05/2024 Reviewed by: Leeann Sanches RPFT - Fully Assessed Reason for Visit: Orders [681] Primary Visit Diagnosis:COPD, severe (HCC) [J44.9] Other Visit Diagnoses:Requires oxygen therapy [Z99.81] SOB (shortness of breath) [R06.02] Order(s):OXIMETRY WITH AMBULATION [[id number]] Order #: [id number]: 1 FUTURE Prescriptions as of 06/05/2024 - OXYGEN, [...] twice daily. Problem List As Of Date 06/05/2024 Noted Resolved TOBACCO USE DISORDER [F17.200] Acute [...] artificial shoulder joint [Z9*08/18/2023 Encounter Status:Closed by NGA FERRER on 06/05/24 Normal [facility] No Panel Informationon 06-05 Leeann Sanches RPF T 06/05/2024 9:31 AM RESPIRATORY THERAPY OXIMETRY WITH AMBULATION Oximetry with [...] June 05, 2024 TIME: 9:31 AM Comment: [facility] [place] ([id number]) 1960 F Date Time Provider Department 05/30/24 [facility] During your visit today, we recorded the following information about you: Josh Butterfield APRN.CNP 05/30/2024 12:56 PM Signed I ordered the patient a 6-minute walk test previously. I discussed with her that this is performed in the [facility]FT lab. Can we please assist with getting the patient an appointment with the [facility] lab to have this test completed for oxygen requirement purposes for Medicaid? I discussed with patient and she is waiting on a call. MATHEUS Wong Jesse, APRN.CNP 05/30/2024 2:38 PM Signed Scheduled for 06/05/2024 Josh Butterfield APRN.CNP Allergies As of Date: 05/30/2024 Noted Allergy Reaction DEMORAL (MEPERIDINE) 02/03/2008 2 - Rash DESYREL (TRAZODONE HCL) 06/30/2006 2 - Rash DOXYCYCLINE 07/15/2010 4 - Hives ERYTHROMYCIN 06/30/2006 2 - Rash LEVAQUIN (LEVOFLOXACIN) 03/29/2024 2 - Rash MORPHINE 06/30/2006 7 - Swelling PREDNISONE 05/13/2010 2 - Rash Date Reviewed: 04/25/2024 Reviewed by: Chaparro Christianosn MA - Fully Assessed Reason for Visit: Results [95] Prescriptions as of 05/30/2024 - OXYGEN, HOME THERAPY, 2 L/min by [...] twice daily. Problem List As Of Date 05/30/2024 Noted Resolved TOBACCO USE DISORDER [F17.200] Acute [...] artificial shoulder joint [Z9*08/18/2023 Encounter Status:Closed by JOSH BUTTERFIELD on 05/30/24 [facility] NEALNon 05-19-2024 CNPN Telephone ([facility]) -- [place] RAMSEY ([id number]) 1960 F Date Time Provider Department 05/19/24 KILEY HARRIS [facility] During your visit today, we recorded the following information about you: Kiley Harris APRN.CNP 05/19/2024 11:31 AM Signed Attempted to contact patient to get an update of symptoms after antibiotic treatment. No voicemail is set up, unable to leave a message. MATHEUS Enriquez Melinda, APRN.CNP 06/27/2024 1:23 PM Signed Phone call to patient to follow up. She is better since taking the antibiotics. Plan for follow up CT Chest. Kiley Harris APRN.CNP Allergies As of Date: 05/19/2024 Noted Allergy Reaction DEMORAL (MEPERIDINE) 02/03/2008 2 - Rash DESYREL (TRAZODONE HCL) 06/30/2006 2 - Rash DOXYCYCLINE 07/15/2010 4 - Hives ERYTHROMYCIN 06/30/2006 2 - Rash LEVAQUIN (LEVOFLOXACIN) 03/29/2024 2 - Rash MORPHINE 06/30/2006 7 - Swelling PREDNISONE 05/13/2010 2 - Rash Date Reviewed: 04/25/2024 Reviewed by: Chaparro Christianson MA - Fully Assessed Reason for Visit: Patient Update [1234] Primary Visit Diagnosis:Lung nodules [R91.8] Order(s):CT CHEST WO IVCON [[id number]] Order #: [id number] FUTURE Prescriptions as of 06/27/2024 - meloxicam (MOBIC) 7.5 mg tablet Take 1 tablet by mouth once daily. - OXYGEN, HOME THERAPY, 2 L/min by [...] empty stomach, 1/2 hr before meal. - fluticasone-salmeterol (ADVAIR DISKUS) 250-50 mcg/dose inhaler [...] twice daily. Problem List As Of Date 05/19/2024 Noted Resolved TOBACCO USE DISORDER [F17.200] Acute bronchitis with chronic obstructive pulmo*07/01/2006 BENIGN PARXYSMAL VERTIGO [H81.10] 04/06/2007 LUMBAGO [M54.50] 05/02/2007 Bipolar I disorder, most recent episode (or cur*05/02/2007 GERD (gastroesophageal reflux disease) [K21.9] 04/21/2011 History of lumbar discectomy [Z98.890] 08/17/2011 Lumbar disc displacement without myelopathy [M5*08/17/2011 DDD (degenerative disc disease), lumbar [M51.36*08/17/2011 Lumbar radiculopathy [M54.16] 11/02/2011 Lumbar spondylosis [M47.816] [...] artificial shoulder joint [Z9*08/18/2023 Encounter Status:Closed by KILEY HARRIS on 06/27/24 [facility] Toby 05-18-2024 CNPN Telephone (FAMPWS) -- [place]BANIA RAMSEY ([id number]) 1960 F Date Time Provider Department 05/18/24 [facility] visit today, we recorded the following information about you: Nighat Hall RN 05/18/2024 9:15 AM Signed Lou from Medical Services calls and reports that patient is going to need to re qualify for O2. Patient is going to have to have another 6 minute walk done to re-qualify. For Medicaid to cover O2 patient needs to stat 88 or below with current diagnoses. ASHLEE Diallo Kathryn, MA 05/18/2024 9:22 AM Signed Should pt follow up with Pulmonary as she has seen Betzy Alejandro PA-C in March. GREGORY Noyola Jesse, APRN.NEAL 05/25/2024 8:33 AM Signed Yes, she follows with pulm, but Dr. Aguilar ordered the oxygen. So we should get a 6 minute walk test. I placed the order. I think she just needs to schedule. Josh Butterfield APRN.Lennie Teran MA 05/25/2024 10:15 AM Signed Spoke with pt, appt made. Reminder mailed. Will leave encounter open until form has been completed an faxed back. GREGORY Noyola Jacqueline, LPN 05/30/2024 12:20 PM Signed Patient needs scheduled for PFT Pulmonary. Sending to clerical to schedule. Allergies As of Date: 05/18/2024 Noted Allergy Reaction DEMORAL (MEPERIDINE) 02/03/2008 2 - Rash DESYREL (TRAZODONE HCL) 06/30/2006 2 - Rash DOXYCYCLINE 07/15/2010 4 - Hives ERYTHROMYCIN 06/30/2006 2 - Rash LEVAQUIN (LEVOFLOXACIN) 03/29/2024 2 - Rash MORPHINE 06/30/2006 7 - Swelling PREDNISONE 05/13/2010 2 - Rash Date Reviewed: 04/25/2024 Reviewed by: Chaparro Christianson MA - Fully Assessed Reason for Visit: Orders [681] Primary Visit Diagnosis:Requires oxygen therapy [Z99.81] Order(s):SIX MINUTE WALK [8999503] Order #: [id number]: 1 FUTURE Prescriptions as of 05/30/2024 - OXYGEN, HOME THERAPY, 2 L/min by [...] twice daily. Problem List As Of Date 05/18/2024 Noted Resolved TOBACCO USE DISORDER [F17.200] Acute [...] shoulder pain [M25.511, G89.29] 05/22/2020 COPD with exacerbatio (more content not included)... Normal [facility] LABORATORYOrdered By: Juma Gong on 05-17-2024 Appearance (U) Clear (05/17/24 2:49 PM) Normal Clear AO Auto Urine SS Bilirubin Ql (U) Negative (05/17/24 2:49 PM) Normal Negative AO Auto Urine SS Color (U) Yellow (05/17/24 2:49 PM) Normal AO Auto Urine SS Glucose Test strip (U) [Mass/Vol] Negative Normal Negative AO Auto Urine SS Hemoglobin Auto test strip (U) [Mass/Vol] Negative (05/17/24 2:49 PM) Normal Negative AO Auto Urine SS Ketones Ql (U) Negative Normal Negative AO Auto Urine SS UA Leuk Est Negative (05/17/24 2:49 PM) Normal Negative AO Auto Urine SS UA Nitrite Negative (05/17/24 2:49 PM) Normal Negative AO Auto Urine SS UA pH 7.0 (05/17/24 2:49 PM) Normal 5.0 - 8.0 AO Auto Urine SS UA Protein Negative Normal Negative AO Auto Urine SS UA Spec Grav 1.020 (05/17/24 2:49 PM) Normal 1.015-1.025 AO Auto Urine SS UA Specimen Type Clean Catch (05/17/24 2:49 PM) Normal AO Auto Urine SS UA Urobilinogen 0.2 E.U./dL Normal 0.2-1.0 AO Auto Urine SS UAon 05-17-2024 Color (U) Yellow Normal [facility] ([place]) Comment on above: Performed By: #### U A ####Me[address] [place], [place] [address] Glucose (U) [Mass/Vol] Negative Normal Negative [facility] ([place]) Comment on above: Performed By: #### U A ####[address] [place], [place] [address] Ketones Ql (U) Negative Normal Negative [facility] ([place]) Comment on above: Performed By: #### U A ####[address] [place], [place] [address] UA Appear Clear Normal Clear [facility] ([place]) Comment on above: Performed By: #### U A ####Me[address] [place], [place] [address] UA Blood Negative Normal Negative [facility] ([place] Comment on above: Performed By: #### U A ####[address] [place] [address] UA Leuk Est Negative Normal Negative [facility] ([place] Comment on above: Performed By: #### U A ####[address] [place] [address] UA Nitrite Negative Normal Negative [facility] ([place] Comment on above: Performed By: #### U A ####[address] [place] [address] UA pH 7.0 Normal 5.0 - 8.0 [facility] ([place]) Comment on above: Performed By: #### U A ####[address] [place] [address] UA Protein Negative Normal Negative [facility] ([place] Comment on above: Performed By: #### U A ####[address] [place] [address] UA Spec Grav 1.020 Normal 1.015-1.025 [facility] ([place]) Comment on above: Performed By: #### U A ####[address] [place] [address] UA Specimen Type Clean Catch Normal [facility] ([place]) Comment on above: Performed By: #### U A ####[address] [place] [address] UA Urobilinogen 0.2 E.U./dL Normal 0.2-1.0 [facility] ([place]) Comment on above: Performed By: #### U A ####[address] [place] [address] Urobilinogen (U) [Mass/Vol] Negative Normal Negative [facility] ([place]) Comment on above: Performed By: #### U A ####Me[address] [place], [place] [address] [facility] [place]IA Chung ([id number]) 1960 F Date Time Provider Department 05/08/24 [facility] During your visit today, we recorded the following information about you: Nighat Hall RN 05/08/2024 9:52 AM Signed Patient son Josh call and is concerned because he feels like patient is having memory issues. Josh reports that patient forgets what she is talking about mid sentence. Patient will get undressed in the middle of the night, wakes up without clothes, and does not know where clothes are. Advised Josh that patient would have to set up appointment to discuss this. Josh states that patient would never do this because patient does not think that she has memory issues. ASHLEE Diallo Stephanie, RN 05/08/2024 10:19 AM Signed Patient calls and forgets what she is calling about but she knew it was for an appointment. Asked patient if she is having memory issues. Patient states that she has been having issues x 3 weeks. Patient only wants to see Dr. Aguilar for appointment. Appointment scheduled with Dr. Aguilar for 05/16/2024. ASHLEE Diallo Mark D, MD 05/08/2024 12:44 PM Signed Noted Teresa Aguilar MD Allergies As of Date: 05/08/2024 Noted Allergy Reaction DEMORAL (MEPERIDINE) 02/03/2008 2 - Rash DESYREL (TRAZODONE HCL) 06/30/2006 2 - Rash DOXYCYCLINE 07/15/2010 4 - Hives ERYTHROMYCIN 06/30/2006 2 - Rash LEVAQUIN (LEVOFLOXACIN) 03/29/2024 2 - Rash MORPHINE 06/30/2006 7 - Swelling PREDNISONE 05/13/2010 2 - Rash Date Reviewed: 04/25/2024 Reviewed by: Chaparro Christianson MA - Fully Assessed Reason for Visit: Patient Update [1234] Prescriptions as of 05/08/2024 - OXYGEN, HOME THERAPY, 2 L/min by [...] twice daily. Problem List As Of Date 05/08/2024 Noted Resolved TOBACCO USE DISORDER [F17.200] Acute [...] 05/21/2023 Preop testing [Z01.818] 07/21/2023 Asthma [J45.909] (more content not included)... Normal [facility] 04-27-2024 CNPN Telephone (FAMPWS) -- ALBANIA RAMSEY ([id number]) 1960 F Date Time Provider Department 04/27/24 TER[facility]A AGUILAR [facility] During your visit today, we recorded the following information about you: Chaparro Christianson MA 04/27/2024 3:20 PM Signed Type of form: Medical Necessity for O2. Form received via fax When form is completed, Fax form to [phone] Form has been forwarded to Physician Desk: Dr. Aguilar. They are requesting additional information for pt O2 use. Pt currently follows with Pulmonary. In Pulm note pt had respiratory therapy with Ox w/ambulation. GREGORY Cade Rilee, MA 04/27/2024 4:24 PM Signed Form signed and faxed back to information below. Chaparro Christianson MA Allergies As of Date: 04/27/2024 Noted Allergy Reaction DEMORAL (MEPERIDINE) 02/03/2008 2 - Rash DESYREL (TRAZODONE HCL) 06/30/2006 2 - Rash DOXYCYCLINE 07/15/2010 4 - Hives ERYTHROMYCIN 06/30/2006 2 - Rash LEVAQUIN (LEVOFLOXACIN) 03/29/2024 2 - Rash MORPHINE 06/30/2006 7 - Swelling PREDNISONE 05/13/2010 2 - Rash Date Reviewed: 04/25/2024 Reviewed by: Chaparro Christianson MA - Fully Assessed Reason for Visit: Forms [913] Prescriptions as of 04/27/2024 - OXYGEN, HOME THERAPY, 2 L/min by [...] twice daily. Problem List As Of Date 04/27/2024 Noted Resolved TOBACCO USE DISORDER [F17.200] Acute [...] Preop testing [Z01.818] 07/21/2023 Asthma [J45.909] 07/21/2023 Essential (primary) hypertension [I10] 07/21/2023 History of pulmonary embolus (PE) [Z86.711] 07/21/2023 Chronic hypoxemic respiratory failure (HCC) [J9*07/21/2023 Presence of right artificial shoulder joint [Z9*08/18/2023 Encounter Status:Closed by CHAPARRO CHRISTIANSON on 04/27/24 Normal [facility] CNOVon 04-25-2024 CNOV Office Visit (FAMPWS ) -- ALBANIA RAMSEY ([id number]) 1960 F Date Time Provider Department 04/25/24 4:20 PM TERESA AGUILAR During your visit today, we recorded the following information about you: Pulse Respiration Blood pressure Weight 96/minute 20/minute 112/74 52.3 kg Teresa Aguilar MD 04/25/2024 4:48 PM Signed Chief Complaint Patient presents with: Follow Up [...] term course of Prednisone. Receives supplies through [facility]. Pt reports that her portable O2 tank [...] Comment: 25 years prior No date: Schizophrenia ([facility]) Comment: [facility] No date: Snoring No date: Tobacco [...] by mouth two times a day. fluticasone-salmeterol (A (more content not included)... Normal [facility] 04-18-2024 [facility] ([facility]) -- [place]IA RAMSEY ([id number]) 1960 F Date Time Provider Department 04/18/24 TERESA AGUILAR [facility] During your visit today, we recorded the following information about you: Miriam Arciniega LPN 04/18/2024 3:55 PM Signed Doc with [facility] called and he is putting together packs for pt and requested a copy of pt's med list. FAX: [phone] Done Miriam Arciniega LPN Allergies As of Date: 04/18/2024 Noted Allergy Reaction DEMORAL (MEPERIDINE) 02/03/2008 2 - Rash DESYREL (TRAZODONE HCL) 06/30/2006 2 - Rash DOXYCYCLINE 07/15/2010 4 - Hives ERYTHROMYCIN 06/30/2006 2 - Rash LEVAQUIN (LEVOFLOXACIN) 03/29/2024 2 - Rash MORPHINE 06/30/2006 7 - Swelling PREDNISONE 05/13/2010 2 - Rash Date Reviewed: 03/29/2024 Reviewed by: Karin Lloyd APRN.WARD SERVICE SUPERVISOR - Fully Assessed Reason for Visit: [facility] ( [place] Porras) [Other] Prescriptions as of 04/18/2024 - cyclobenzaprine (FLEXERIL) 10 mg tablet Take [...] empty stomach, 1/2 hr before meal. - azithromycin (ZITHROMAX) 250 mg tablet Take 2 tablets by mouth once daily for 1 day, THEN 1 tablet once daily for 4 days. - predniSONE (DELTASONE) 20 mg tablet Take 2 tablets by mouth once daily. - meloxicam (MOBIC) 7.5 mg tablet Take 1 tablet by mouth once daily. - cefdinir (OMNICEF) 300 mg capsule Take 1 capsule by mouth two times a day. - fluticasone-salmeterol (ADVAIR DISKUS) 250-50 mcg/dose inhaler inhale 1 puff by mouth and INTO THE LUNGS twice a day Rinse mouth after use - tiotropium bromide (SPIRIVA RESPIMAT) 2.5 mcg/actuation inhaler Inhale 2 Puffs as instructed once daily. - melatonin 10 mg tab Take 1 tablet by mouth at bedtime as needed. - QUEtiapine (SEROQUEL) 400 mg tablet take 2 tablets by mouth once daily at bedtime - OXYGEN, HOME THERAPY, 2 L/min by Nasal Cannula route continuous. - albuterol (PROVENTIL) 2.5 mg /3 mL (0.083 %) nebulizer solution Use 3 mL via nebulizer every 4 hours as needed for wheezing/shortness of breath. Use over 5-15minutes. - mineral oil/hydrophil petrolatum (AQUAPHOR) oint Apply to affected area as needed. Apply liberally to area three times a day. - lamoTRIgine (LAMICTAL) 150 mg tablet Take [...] twice daily. Problem List As Of Date 04/18/2024 Noted Resolved TOBACCO USE DISORDER [F17.200] Acute [...] Preop testing [Z01.818] 07/21/2023 Asthma [J45.909] 07/21/2023 Essential (primary) hypertension [I10] 07/21/2023 History of pulmonary embolus (PE) [Z86.711] 07/21/2023 Chronic hypoxemic respiratory failure (HCC) [J9*07/21/2023 Presence of right artificial shoulder joint [Z9*08/18/2023 Encounter (more content not included)... Normal [facility] CNPNon 04-13-2024 NEALN Telephone ([facility]) -- ALB[place]IA RAMSEY ([id number]) 1960 F Date Time Provider Department 04/13/24 KILEY HARRIS [facility] During your visit today, we recorded the following information about you: Kiley Harris APRN.CNP 04/13/2024 3:25 PM Signed Phone call to patient for update. She has completed the cefdinir and she is still coughing up yellow sputum. It got somewhat better, but is not gone. Kiley Hraris APRN.CNP Allergies As of Date: 04/13/2024 Noted Allergy Reaction DEMORAL (MEPERIDINE) 02/03/2008 2 - Rash DESYREL (TRAZODONE HCL) 06/30/2006 2 - Rash DOXYCYCLINE 07/15/2010 4 - Hives ERYTHROMYCIN 06/30/2006 2 - Rash LEVAQUIN (LEVOFLOXACIN) 03/29/2024 2 - Rash MORPHINE 06/30/2006 7 - Swelling PREDNISONE 05/13/2010 2 - Rash Date Reviewed: 03/29/2024 Reviewed by: Karin Lloyd APRN.WARD SERVICE SUPERVISOR - Fully Assessed Reason for Visit: Patient Update [1234] Order(s):azithromycin (ZITHROMAX) 250 mg tabletTake 2 tablets by mouth once daily for 1 day, THEN 1 tablet once daily for 4 days.Disp: 6 tabletRfl: 0 Prescriptions as of 04/13/2024 - azithromycin (ZITHROMAX) 250 mg tablet Take 2 tablets by mouth once daily for 1 day, THEN 1 tablet once daily for 4 days. - predniSONE (DELTASONE) 20 mg tablet Take 2 tablets by mouth once daily. - meloxicam (MOBIC) 7.5 mg tablet Take 1 tablet by mouth once daily. - cefdinir (OMNICEF) 300 mg capsule Take 1 capsule by mouth two times a day. - cyclobenzaprine (FLEXERIL) 10 mg tablet Take 1 tablet by mouth three times a day. - meclizine (ANTIVERT) 25 mg tab Take 1 tablet by mouth every 6 hours as needed (dizziness). - fluticasone-salmeterol (ADVAIR DISKUS) 250-50 mcg/dose inhaler inhale 1 puff by mouth and INTO THE LUNGS twice a day Rinse mouth after use - ondansetron (ZOFRAN) 4 mg tablet Take 1 tablet by mouth every 8 hours as needed for up to 10 doses. - tiotropium bromide (SPIRIVA RESPIMAT) 2.5 mcg/actuation inhaler Inhale 2 Puffs as instructed once daily. - melatonin 10 mg tab Take 1 tablet by mouth at bedtime as needed. - QUEtiapine (SEROQUEL) 400 mg tablet take 2 tablets by mouth once daily at bedtime - OXYGEN, HOME THERAPY, 2 L/min by Nasal Cannula route continuous. - albuterol (PROVENTIL) 2.5 mg /3 mL (0.083 %) nebulizer solution Use 3 mL via nebulizer every 4 hours as needed for wheezing/shortness of breath. Use over 5-15minutes. - pantoprazole DR (PROTONIX) 20 mg tablet Take 1 tablet by mouth daily before breakfast. Take on empty stomach, 1/2 hr before meal. - cholecalciferol, Vitamin D3, (VITAMIN D3) 1,250 mcg (50,000 unit) cap capsule Take 1 capsule by mouth one time a week. - mineral oil/hydrophil petrolatum (AQUAPHOR) oint Apply to affected area as needed. Apply liberally to area three times a day. - lamoTRIgine (LAMICTAL) 150 mg tablet Take [...] twice daily. Problem List As Of Date 04/13/2024 Noted Resolved TOBACCO USE DISORDER [F17.200] Acute [...] Preop testing [Z01.818] 07/21/2023 Asthma [J45.909] 07/21/2023 Essential (primary) hypertension [I10] 07/21/2023 History of pulmonary embolus (PE) [Z86 (more content not included)... Normal [facility] Guidance for injection of Sh oulderon 04-04-2024 IMPRESSION: No fluid obtained during right shoulder aspiration. Teacher Physically Impaired: QUYEN Transcribe Date/Time: Apr 04 2024 3:24P Dictated by : KAREEM HURTADO MD This examination was interpreted and the report reviewed and electronically signed by: KAREEM HURTADO MD on Apr 04 2024 3:26PM [facility] * * *Final Report* * * DATE OF EXAM: Apr 04 2024 3:21PM MDX 5705 - XR ASP/INJ SHOULDER JT/BURSA RT / PROCEDURE REASON: multiple diagnoses * * * * Physician Interpretation * * * * PROCEDURE NOTE FOR RIGHT SHOULDER ASPIRATION UNDER FLUOROSCOPY HISTORY: Status post reverse total replacement of right shoulder Right shoulder pain, unspecified chronicity TECHNIQUE: Informed consent was obtained from the patient. Questions were answered. Standard time out was performed. Fluoroscopic Radiation Summary: Plane A, Air Kerma: 10.0 mGy Dose Area Product (DAP): 576.0 mGy*cm2 Fluoro time: 1:37 min:sec Reverse shoulder arthroplasty is present. Using aseptic technique with appropriate drying time, 2 ml of 1% lidocaine for local anesthesia, and fluoroscopic guidance, a 20-gauge spinal needle was entered into the left shoulder joint from an anterior approach. The needle was moved throughout the joint space during aspiration. No fluid was obtained. Fluoroscopic images were obtained and stored. The patient tolerated the procedure well and left the department in stable condition. [facility] Provider, Kristin Callejas - 04/04/2024 * * *Final Report* * * DATE OF EXAM: Apr 04 2024 3:21PM MDX 5705 - XR ASP/INJ SHOULDER JT/BURSA RT / PROCEDURE REASON: multiple diagnoses * * * * Physician Interpretation * * * * PROCEDURE NOTE FOR RIGHT SHOULDER ASPIRATION UNDER FLUOROSCOPY HISTORY: Status post reverse total replacement of right shoulder Right shoulder pain, unspecified chronicity TECHNIQUE: Informed consent was obtained from the patient. Questions were answered. Standard time out was performed. Fluoroscopic Radiation Summary: Plane A, Air Kerma: 10.0 mGy Dose Area Product (DAP): 576.0 mGy*cm2 Fluoro time: 1:37 min:sec Reverse shoulder arthroplasty is present. Using aseptic technique with appropriate drying time, 2 ml of 1% lidocaine for local anesthesia, and fluoroscopic guidance, a 20-gauge spinal needle was entered into the left shoulder joint from an anterior approach. The needle was moved throughout the joint space during aspiration. No fluid was obtained. Fluoroscopic images were obtained and stored. The patient tolerated the procedure well and left the department in stable condition. IMPRESSION IMPRESSION: No fluid obtained during right shoulder aspiration. Teacher Physically Impaired: QUYEN Transcribe Date/Time: Apr 04 2024 3:24P Dictated by : KAREEM HURTADO MD This examination was interpreted and the report reviewed and electronically signed by: KAREEM HURTADO MD on Apr 04 2024 3:26PM [facility] Radiology Study observation (narrative) [facility] Guidance for injection of Sh oulderOrdered By: Ccf Provider on 04-04-2024 [facility] XR ASP/INJ SHOULDER JT/BURSA RTon 04-04-2024 XR ASP/INJ SHOULDER JT/BURSA RT * * *Final Report* * * DATE OF EXAM: Apr 04 2024 3:21PM MDX 5705 - XR ASP/INJ SHOULDER JT/BURSA RT / PROCEDURE REASON: multiple diagnoses * * * * Physician Interpretation * * * * PROCEDURE NOTE FOR RIGHT SHOULDER ASPIRATION UNDER FLUOROSCOPY HISTORY: Status post reverse total replacement of right shoulder Right shoulder pain, unspecified chronicity TECHNIQUE: Informed consent was obtained from the patient. Questions were answered. Standard time out was performed. Fluoroscopic Radiation Summary: Plane A, Air Kerma: 10.0 mGy Dose Area Product (DAP): 576.0 mGy*cm2 Fluoro time: 1:37 min:sec Reverse shoulder arthroplasty is present. Using aseptic technique with appropriate drying time, 2 ml of 1% lidocaine for local anesthesia, and fluoroscopic guidance, a 20-gauge spinal needle was entered into the left shoulder joint from an anterior approach. The needle was moved throughout the joint space during aspiration. No fluid was obtained. Fluoroscopic images were obtained and stored. The patient tolerated the procedure well and left the department in stable condition. IMPRESSION: No fluid obtained during right shoulder aspiration. Teacher Physically Impaired: QUYEN Transcribe Date/Time: Apr 04 2024 3:24P Dictated by : KAREEM HURTADO MD This examination was interpreted and the report reviewed and electronically signed by: KAREEM HURTADO MD on Apr 04 2024 3:26PM EST [id number] Normal [facility] Bacteria Spec Resp Culton Bacteria identified Respiratory culture Nom (Unsp spec) CULTURE, RESPIRATORY: Mixed Gram negative bacilli including ORGANISM ID: 1 Many Proteus mirabilis ORGANISM ID: 2 Many Pseudomonas not aeruginosa ORGANISM ID: 3 Many normal respiratory antony ORGANISM ID: 4 Many Stenotrophomonas maltophilia GRAM STAIN: Many Mixed oral antony Rare Polymorphonuclear leukocytes Abnormal [facility] Comment on above: Performed By: #### 3 [id number] #### [facility] CLIA [id number] [address] [place] [address] Shoulder - right WO contr mike 03-01-2024 IMPRESSION: EXPECTED POSTSURGICAL APPEARANCE Teacher Physically Impaired: [facility] Transcribe Date/Time: Mar 01 2024 9:03A Dictated by : COLEMAN HOYOS MD This examination was interpreted and the report reviewed and electronically signed by: COLEMAN HOYOS MD on Mar 01 2024 9:06AM EST DIVISION OF RADIOLOGY * * *Final Report* * * DATE OF EXAM: Mar 01 2024 8:54AM [facility] 0090 - CT SHOULDER WO IVCON RT / PROCEDURE REASON: multiple diagnoses * * * * Physician Interpretation * * * * HISTORY: Reversal shoulder arthroplasty. Pain after a fall. TECHNIQUE: CT SHOULDER WO IVCON RTwas performed in the axial plane with coronal and sagittal reformatted images. CT Dose-Length Product (DLP): 289 mGy*cm. Orthopedic Hardware: Yes CT Dose Reduction Employed: Yes COMPARISON: Preoperative MRI 10/25/2020. 02/18/2024 RESULT: Reverse total shoulder arthroplasty with expected postsurgical appearance. No fracture. Normal variant os acromiale, present on the preoperative MRI as well. Arteriosclerosis. Subscapularis muscle atrophy. No other significant abnormality. DIVISION OF RADIOLOGY Provider, [facility] - 03/01/2024 * * *Final Report* * * DATE OF EXAM: Mar 01 2024 8:54AM [facility] 0090 - CT SHOULDER WO IVCON RT / PROCEDURE REASON: multiple diagnoses * * * * Physician Interpretation * * * * HISTORY: Reversal shoulder arthroplasty. Pain after a fall. TECHNIQUE: CT SHOULDER WO IVCON RTwas performed in the axial plane with coronal and sagittal reformatted images. CT Dose-Length Product (DLP): 289 mGy*cm. Orthopedic Hardware: Yes CT Dose Reduction Employed: Yes COMPARISON: Preoperative MRI 10/25/2020. 02/18/2024 RESULT: Reverse total shoulder arthroplasty with expected postsurgical appearance. No fracture. Normal variant os acromiale, present on the preoperative MRI as well. Arteriosclerosis. Subscapularis muscle atrophy. No other significant abnormality. IMPRESSION IMPRESSION: EXPECTED POSTSURGICAL APPEARANCE Teacher Physically Impaired: [facility] Transcribe Date/Time: Mar 01 2024 9:03A Dictated by : COLEMAN HOYOS MD This examination was interpreted and the report reviewed and electronically signed by: COLEMAN HOYOS MD on Mar 01 2024 9:06AM EST [facility] Radiology Study observation (narrative) [facility] CT Shoulder - right WO contr astOrdered By: Ccf Provider on 03-01-2024 [facility] Microorganism Spec Culton Microorganism identified Cx Nom (Unsp spec) CULTURE, AFB: No Acid Fast Bacilli isolated after 42 days AFB STAIN: No acid fast bacilli seen by flurochrome stain Normal [facility] Comment on above: Performed By: #### 1 [id number] #### [facility] LAB CLIA [id number] [address] [place] [address] [place] XR Shoulder - right 3 Viewso n 02-24-2024 IMPRESSION: No acute bone abnormality. Reverse shoulder arthroplasty. Teacher Physically Impaired: QUYEN Transcribe Date/Time: Feb 24 2024 12:04A Dictated by : ALISSA HALL MD This examination was interpreted and the report reviewed and electronically signed by: ALISSA HALL MD on Feb 24 2024 12:05AM [facility] RAD[facility]OLOG[facility] * * *Final Report* * * DATE OF EXAM: Feb 18 2024 8:32AM O 5253 - XR SHLDR >/=3V AP/SHAW AP/OTHR RT / PROCEDURE REASON: multiple diagnoses * * * * Physician Interpretation * * * * XR SHLDR >/=3V AP/SHAW AP/OTHR RT HISTORY: Chronic right shoulder pain Chronic right shoulder pain COMPARISON: 11/26/2023 FINDINGS: Right shoulder reverse arthroplasty. No radiographic evidence of loosening or hardware failure. No demonstrated periprosthetic fracture. Moderate degenerative changes of the acromioclavicular joint. Diffuse bony demineralization. _ [facility] Provider, Kristin Callejas - 02/24/2024 * * *Final Report* * * DATE OF EXAM: Feb 18 2024 8:32AM MDO 5253 - XR SHLDR >/=3V AP/SHAW AP/OTHR RT / PROCEDURE REASON: multiple diagnoses * * * * Physician Interpretation * * * * XR SHLDR >/=3V AP/SHAW AP/OTHR RT HISTORY: Chronic right shoulder pain Chronic right shoulder pain COMPARISON: 11/26/2023 FINDINGS: Right shoulder reverse arthroplasty. No radiographic evidence of loosening or hardware failure. No demonstrated periprosthetic fracture. Moderate degenerative changes of the acromioclavicular joint. Diffuse bony demineralization. _ IMPRESSION IMPRESSION: No acute bone abnormality. Reverse shoulder arthroplasty. Teacher Physically Impaired: QUYEN Transcribe Date/Time: Feb 24 2024 12:04A Dictated by : ALISSA HALL MD This examination was interpreted and the report reviewed and electronically signed by: ALISSA HALL MD on Feb 24 2024 12:05AM EST [facility] XR Shoulder - right 3 ViewsO rdered By: Ccf Provider on 02-24-2024 [facility] XR SHLDR >/=3V AP/SHAW AP/OTH R RTon 02-18-2024 XR SHLDR >/=3V AP/SHAW AP/OTHR RT * * *Final Report* * * DATE OF EXAM: Feb 18 2024 8:32AM MDO 5253 - XR SHLDR >/=3V AP/SHAW AP/OTHR RT / PROCEDURE REASON: multiple diagnoses * * * * Physician Interpretation * * * * XR SHLDR >/=3V AP/SHAW AP/OTHR RT HISTORY: Chronic right shoulder pain Chronic right shoulder pain COMPARISON: 11/26/2023 FINDINGS: Right shoulder reverse arthroplasty. No radiographic evidence of loosening or hardware failure. No demonstrated periprosthetic fracture. Moderate degenerative changes of the acromioclavicular joint. Diffuse bony demineralization. _ IMPRESSION: No acute bone abnormality. Reverse shoulder arthroplasty. Teacher Physically Impaired: PSCB Transcribe Date/Time: Feb 24 2024 12:04A Dictated by : ALISSA HALL MD This examination was interpreted and the report reviewed and electronically signed by: ALISSA HALL MD on Feb 24 2024 12:05AM EST [id number] [facility] XR Shoulder - right 3 Viewso n 02-18-2024 Radiology Study observation (narrative) [facility] XR SHOULDER MINIMUM 2 VIEWS RIGHTon 12-30-2023 XR SHOULDER MINIMUM 2 VIEWS RIGHT ORIGINAL EXAMINATION: 3 XRAY VIEWS OF THE [...] Sign Date: 12/30/2023 12:36:22 PM Ordering Provider: MARYJANE Sosa [facility] ([place]) XR Chest PA and Lateralon IMPRESSION: Hazy opacities overlying the bilateral lower lungs, likely representing pneumonia/aspiration. Please clinically correlate. Teacher Physically Impaired: QUYEN Transcribe Date/Time: Dec 01 2023 9:17A Dictated by : NICOLE ROGERS MD This examination was interpreted and the report reviewed and electronically signed by: NICOLE ROGERS MD on Dec 01 2023 9:20AM [facility] DIVISION OF RADIOLOGY * * *Final Report* * * DATE OF EXAM: Dec 01 2023 9:15AM WOX 5291 - XR CHEST 2V FRONTAL/LAT / PROCEDURE REASON: COPD with exacerbation (HCC) * * * * Physician Interpretation * * * * EXAMINATION: CHEST RADIOGRAPH (2 VIEW FRONTAL & LATERAL) CLINICAL HISTORY: COPD with exacerbation (HCC) MQ: XC2_6 EXAM DATE/TIME: 12/01/2023 9:15 AM COMPARISON: Chest x-ray on 06/08/2023 RESULT: Lines, tubes, and devices: None. Lungs and pleura: There are hazy opacity overlying the bilateral lower lungs, worse on the right side. No mass lesion identified. The lungs are somewhat overexpanded. No pleural effusions or pneumothorax. Cardiomediastinal silhouette: Normal cardiomediastinal silhouette. Bones and soft tissues: Status post right shoulder arthroplasty. DIVISION OF RADIOLOGY Provider, [facility] - 12/01/2023 * * *Final Report* * * DATE OF EXAM: Dec 01 2023 9:15AM WOX 5291 - XR CHEST 2V FRONTAL/LAT / PROCEDURE REASON: COPD with exacerbation (HCC) * * * * Physician Interpretation * * * * EXAMINATION: CHEST RADIOGRAPH (2 VIEW FRONTAL & LATERAL) CLINICAL HISTORY: COPD with exacerbation (HCC) MQ: XC2_6 EXAM DATE/TIME: 12/01/2023 9:15 AM COMPARISON: Chest x-ray on 06/08/2023 RESULT: Lines, tubes, and devices: None. Lungs and pleura: There are hazy opacity overlying the bilateral lower lungs, worse on the right side. No mass lesion identified. The lungs are somewhat overexpanded. No pleural effusions or pneumothorax. Cardiomediastinal silhouette: Normal cardiomediastinal silhouette. Bones and soft tissues: Status post right shoulder arthroplasty. IMPRESSION IMPRESSION: Hazy opacities overlying the bilateral lower lungs, likely representing pneumonia/aspiration. Please clinically correlate. Teacher Physically Impaired: QUYEN Transcribe Date/Time: Dec 01 2023 9:17A Dictated by : NICOLE ROGERS MD This examination was interpreted and the report reviewed and electronically signed by: NICOLE ROGERS MD on Dec 01 2023 9:20AM EST [facility] Radiology Study observation (narrative) [facility] XR Chest PA and LateralOrder ed By: Ccf Provider on 12-01-2023 [facility] XR Shoulder - right 3 Viewso n 11-28-2023 IMPRESSION: Findings as discussed under Results portion of report. Teacher Physically Impaired: QUYEN Transcribe Date/Time: Nov 28 2023 7:14P Dictated by : RALEIGH LEROY DO This examination was interpreted and the report reviewed and electronically signed by: RALEIGH LEROY DO on Nov 28 2023 7:14PM EST [facility] * * *Final Report* * * DATE OF EXAM: Nov 26 2023 7:35AM INEZ 5253 - XR SHLDR >/=3V AP/SHAW AP/OTHR RT / PROCEDURE REASON: multiple diagnoses * * * * Physician Interpretation * * * * EXAM(s): XR SHLDR >/=3V AP/SHAW AP/OTHR RT..... HISTORY: 63 years old Clinical information: Chronic right shoulder pain Chronic right shoulder pain CHRONIC RIGHT SHOULDER PAIN TECHNIQUE: Images: XR SHLDR >/=3V AP/SHAW AP/OTHR RT Comparison: 10/25/2023 RESULT: Findings: The components of the Reverseshoulder arthroplasty appear stable.. There is no evidence of loosening of the components. No fractures or dislocations are seen. [facility] * * *Final Report* * * DATE OF EXAM: Nov 26 2023 7:35AM INEZ 5253 - XR SHLDR >/=3V AP/SHAW AP/OTHR RT / PROCEDURE REASON: multiple diagnoses * * * * Physician Interpretation * * * * EXAM(s): XR SHLDR >/=3V AP/SHAW AP/OTHR RT..... HISTORY: 63 years old Clinical information: Chronic right shoulder pain Chronic right shoulder pain CHRONIC RIGHT SHOULDER PAIN TECHNIQUE: Images: XR SHLDR >/=3V AP/SHAW AP/OTHR RT Comparison: 10/25/2023 RESULT: Findings: The components of the Reverseshoulder arthroplasty appear stable.. There is no evidence of loosening of the components. No fractures or dislocations are seen. IMPRESSION IMPRESSION: Findings as discussed under Results portion of report. Teacher Physically Impaired: QUYEN Transcribe Date/Time: Nov 28 2023 7:14P Dictated by : RALEIGH LEROY DO This examination was interpreted and the report reviewed and electronically signed by: RALEIGH LEROY DO on Nov 28 2023 7:14PM EST [facility] XR Shoulder - right 3 ViewsO rdered By: Ccf Provider on 11-28-2023 [facility] XR SHLDR >/=3V AP/SHAW AP/OTH R RTon 11-26-2023 XR SHLDR >/=3V AP/SHAW AP/OTHR RT * * *Final Report* * * DATE OF EXAM: Nov 26 2023 7:35AM MDO 5253 - XR SHLDR >/=3V AP/SHAW AP/OTHR RT / PROCEDURE REASON: multiple diagnoses * * * * Physician Interpretation * * * * EXAM(s): XR SHLDR >/=3V AP/SHAW AP/OTHR RT..... HISTORY: 63 years old Clinical information: Chronic right shoulder pain Chronic right shoulder pain CHRONIC RIGHT SHOULDER PAIN TECHNIQUE: Images: XR SHLDR >/=3V AP/SHAW AP/OTHR RT Comparison: 10/25/2023 RESULT: Findings: The components of the Reverseshoulder arthroplasty appear stable.. There is no evidence of loosening of the components. No fractures or dislocations are seen. IMPRESSION: Findings as discussed under Results portion of report. Teacher Physically Impaired: QUYEN Transcribe Date/Time: Nov 28 2023 7:14P Dictated by : RALEIGH LEROY DO This examination was interpreted and the report reviewed and electronically signed by: RALEIGH LEROY DO on Nov 28 2023 7:14PM EST [id number] [facility] XR Shoulder - right 3 Viewso n 11-26-2023 Radiology Study observation (narrative) [facility] XR SHLDR >/=3V AP/SHAW AP/OTH R RTon 10-25-2023 XR SHLDR >/=3V AP/SHAW AP/OTHR RT * * *Final Report* * * DATE OF EXAM: Oct 25 2023 8:39AM INEZ 5253 - XR SHLDR >/=3V AP/SHAW AP/OTHR RT / PROCEDURE REASON: multiple diagnoses * * * * Physician Interpretation * * * * EXAMINATION / TECHNIQUE: XR SHLDR >/=3V AP/SHAW AP/OTHR RT PATIENT/TECHNOLOGIST PROVIDED HISTORY: RIGHT SHOULDER PAIN, PT STATES SHE FELL ON HER RIGHT SHOULDER EITHER WEDNESDAY OR WEDNESDAY CLINICAL INFORMATION ( PROVIDED BY ORDERING CLINICIAN) : Chronic right shoulder pain COMPARISON: 10/15/2023 and 08/27/2023 RESULT: Right reverse shoulder arthroplasty without interval change. No acute fracture or evidence of loosening. AC joint degenerative changes and mild subacromial spurring. IMPRESSION: Right reverse shoulder arthroplasty without complication. Teacher Physically Impaired: [facility] Transcribe Date/Time: Oct 25 2023 11:51A Dictated by : FRANCISCO JAVIER CAIN MD This examination was interpreted and the report reviewed and electronically signed by: FRANCISCO JAVIER ACIN MD on Oct 25 2023 11:53AM EST [id number] [facility] XR Shoulder - right 3 Viewso n 10-25-2023 IMPRESSION: Right reverse shoulder arthroplasty without complication. Teacher Physically Impaired: PSCB Transcribe Date/Time: Oct 25 2023 11:51A Dictated by : FRANCISCO JAVIER CAIN MD This examination was interpreted and the report reviewed and electronically signed by: FRANCISCO JAVIER CAIN MD on Oct 25 2023 11:53AM EST [facility] * * *Final Report* * * DATE OF EXAM: Oct 25 2023 8:39AM INEZ 5253 - XR SHLDR >/=3V AP/SAHW AP/OTHR RT / PROCEDURE REASON: multiple diagnoses * * * * Physician Interpretation * * * * EXAMINATION / TECHNIQUE: XR SHLDR >/=3V AP/SHAW AP/OTHR RT PATIENT/TECHNOLOGIST PROVIDED HISTORY: RIGHT SHOULDER PAIN, PT STATES SHE FELL ON HER RIGHT SHOULDER EITHER WEDNESDAY OR WEDNESDAY CLINICAL INFORMATION ( PROVIDED BY ORDERING CLINICIAN) : Chronic right shoulder pain COMPARISON: 10/15/2023 and 08/27/2023 RESULT: Right reverse shoulder arthroplasty without interval change. No acute fracture or evidence of loosening. AC joint degenerative changes and mild subacromial spurring. [facility] RADI[facility]Y Provider, Kristin Foley [facility] - 10/25/2023 * * *Final Report* * * DATE OF EXAM: Oct 25 2023 8:39AM INEZ 5253 - XR SHLDR >/=3V AP/SHAW AP/OTHR RT / PROCEDURE REASON: multiple diagnoses * * * * Physician Interpretation * * * * EXAMINATION / TECHNIQUE: XR SHLDR >/=3V AP/SHAW AP/OTHR RT PATIENT/TECHNOLOGIST PROVIDED HISTORY: RIGHT SHOULDER PAIN, PT STATES SHE FELL ON HER RIGHT SHOULDER EITHER WEDNESDAY OR WEDNESDAY CLINICAL INFORMATION ( PROVIDED BY ORDERING CLINICIAN) : Chronic right shoulder pain COMPARISON: 10/15/2023 and 08/27/2023 RESULT: Right reverse shoulder arthroplasty without interval change. No acute fracture or evidence of loosening. AC joint degenerative changes and mild subacromial spurring. IMPRESSION IMPRESSION: Right reverse shoulder arthroplasty without complication. Teacher Physically Impaired: PSCB Transcribe Date/Time: Oct 25 2023 11:51A Dictated by : FRANCISCO JAVIER CAIN MD This examination was interpreted and the report reviewed and electronically signed by: FRANCISCO JAVIER CAIN MD on Oct 25 2023 11:53AM EST [facility] Radiology Study observation (narrative) [facility] XR Shoulder - right 3 ViewsO rdered By: Ccf Provider on 10-25-2023 [facility] XR Shoulder - right 3 Viewso n 10-17-2023 IMPRESSION: Findings as discussed in results portion of report Teacher Physically Impaired: PSCB Transcribe Date/Time: Oct 17 2023 9:43A Dictated by : RALEIGH LEROY, This examination was interpreted and the report reviewed and electronically signed by: RALEIGH LEROY DO on Oct 17 2023 9:43AM [facility] RADIOLOG[facility] * * *Final Report* * * DATE OF EXAM: Oct 15 2023 8:59AM INEZ 5253 - XR SHLDR >/=3V AP/SHAW AP/OTHR RT / PROCEDURE REASON: multiple diagnoses * * * * Physician Interpretation * * * * EXAM(s): XR SHLDR >/=3V AP/SHAW AP/OTHR RT EXAM DATE/TIME: 10/15/2023 8:59 AM HISTORY: 62 years old Clinical information: Chronic right shoulder pain Chronic right shoulder pain CHRONIC RIGHT SHOULDER PAIN [place] Outlet View Axillary TECHNIQUE: Images: XR SHLDR >/=3V AP/SHAW AP/OTHR RT Comparison: 08/27/2023 RESULT: Findings: The components of the reverse shoulder arthroplasty are in good alignment with the respective bones and each other. There is no evidence of loosening of the components. Bone density appears well-preserved. No fractures or dislocations are seen. [facility]BILE RADIOLOGY Provider, [facility] - 10/17/2023 * * *Final Report* * * DATE OF EXAM: Oct 15 2023 8:59AM INEZ 5253 - XR SHLDR >/=3V AP/SHAW AP/OTHR RT / PROCEDURE REASON: multiple diagnoses * * * * Physician Interpretation * * * * EXAM(s): XR SHLDR >/=3V AP/SHAW AP/OTHR RT EXAM DATE/TIME: 10/15/2023 8:59 AM HISTORY: 62 years old Clinical information: Chronic right shoulder pain Chronic right shoulder pain CHRONIC RIGHT SHOULDER PAIN [place] Outlet View Axillary TECHNIQUE: Images: XR SHLDR >/=3V AP/SHAW AP/OTHR RT Comparison: 08/27/2023 RESULT: Findings: The components of the reverse shoulder arthroplasty are in good alignment with the respective bones and each other. There is no evidence of loosening of the components. Bone density appears well-preserved. No fractures or dislocations are seen. IMPRESSION IMPRESSION: Findings as discussed in results portion of report Teacher Physically Impaired: QUYEN Transcribe Date/Time: Oct 17 2023 9:43A Dictated by : RALEIGH LEROY DO This examination was interpreted and the report reviewed and electronically signed by: RALEIGH LEROY DO on Oct 17 2023 9:43AM EST [facility] XR Shoulder - right 3 ViewsO rdered By: Ccf Provider on 10-17-2023 [facility] XR SHLDR >/=3V AP/SHAW AP/OTH R RTon 10-15-2023 XR SHLDR >/=3V AP/SHAW AP/OTHR RT * * *Final Report* * * DATE OF EXAM: Oct 15 2023 8:59AM INEZ 5253 - XR SHLDR >/=3V AP/SHAW AP/OTHR RT / PROCEDURE REASON: multiple diagnoses * * * * Physician Interpretation * * * * EXAM(s): XR SHLDR >/=3V AP/SHAW AP/OTHR RT EXAM DATE/TIME: 10/15/2023 8:59 AM HISTORY: 62 years old Clinical information: Chronic right shoulder pain Chronic right shoulder pain CHRONIC RIGHT SHOULDER PAIN [place] Out[place] View Axillary TECHNIQUE: Images: XR SHLDR >/=3V AP/SHAW AP/OTHR RT Comparison: 08/27/2023 RESULT: Findings: The components of the reverse shoulder arthroplasty are in good alignment with the respective bones and each other. There is no evidence of loosening of the components. Bone density appears well-preserved. No fractures or dislocations are seen. IMPRESSION: Findings as discussed in results portion of report Teacher Physically Impaired: QUYEN Transcribe Date/Time: Oct 17 2023 9:43A Dictated by : RALEIGH LEROY DO This examination was interpreted and the report reviewed and electronically signed by: RALEIGH LEROY DO on Oct 17 2023 9:43AM EST [id number] [facility] XR Shoulder - right 3 Viewso n 10-15-2023 Radiology Study observation (narrative) [facility] XR Pelvis and Hip - left AP and Lateral frogon 10-11-2023 IMPRESSION: No acute osseous abnormality. Teacher Physically Impaired: QUYEN Transcribe Date/Time: Oct 11 2023 1:19P Dictated by : FRANCISCO JAVIER CAIN MD This examination was interpreted and the report reviewed and electronically signed by: FRANCISCO JAVIER CAIN MD on Oct 11 2023 1:21PM [facility] DIVISION OF RADIOLOGY * * *Final Report* * * DATE OF EXAM: Oct 11 2023 9:57AM WOX 5351 - XR HIP 3V PELV+ AP/LAT LT / PROCEDURE REASON: Left hip pain * * * * Physician Interpretation * * * * EXAMINATION / TECHNIQUE: XR HIP 3V PELV+ AP/LAT LT PATIENT/TECHNOLOGIST PROVIDED HISTORY: Posterior left hip pain after lifting a bed x 5 days ago CLINICAL INFORMATION ( PROVIDED BY ORDERING CLINICIAN) : Left hip pain COMPARISON: 05/25/2012 RESULT: Bilateral hip joint spaces are preserved. No acute fracture or dislocation. Mild degenerative changes in the lower lumbar spine. The pubic symphysis and sacroiliac joints are relatively preserved. Surgical clips in the pelvis. DIVISION OF RADIOLOGY Provider, [facility] - 10/11/2023 * * *Final Report* * * DATE OF EXAM: Oct 11 2023 9:57AM WOX 5351 - XR HIP 3V PELV+ AP/LAT LT / PROCEDURE REASON: Left hip pain * * * * Physician Interpretation * * * * EXAMINATION / TECHNIQUE: XR HIP 3V PELV+ AP/LAT LT PATIENT/TECHNOLOGIST PROVIDED HISTORY: Posterior left hip pain after lifting a bed x 5 days ago CLINICAL INFORMATION ( PROVIDED BY ORDERING CLINICIAN) : Left hip pain COMPARISON: 05/25/2012 RESULT: Bilateral hip joint spaces are preserved. No acute fracture or dislocation. Mild degenerative changes in the lower lumbar spine. The pubic symphysis and sacroiliac joints are relatively preserved. Surgical clips in the pelvis. IMPRESSION IMPRESSION: No acute osseous abnormality. Teacher Physically Impaired: PSCB Transcribe Date/Time: Oct 11 2023 1:19P Dictated by : FRANCISCO JAVIER CAIN MD This examination was interpreted and the report reviewed and electronically signed by: FRANCISCO JAVIER CAIN MD on Oct 11 2023 1:21PM [facility] Radiology Study observation (narrative) [facility] XR Pelvis and Hip - left AP and Lateral frogOrdered By: Ccf Provider on 10-11-2023 [facility] .Auto Diffon 09-28-2023 Basophil, Absolute 0.0 10 3/mcL Normal 0.0-0.2 [facility] ([place]) Comment on above: Performed By: #### G FR, LIP, CBC, MDW, ANEU, TROPHS, ADIFF, CMP #### [address] [address] Basophils/100 WBC (Bld) 0.6 % Normal 0.0-2.5 [facility] ([place]) Comment on above: Performed By: #### G FR, LIP, CBC, MDW, ANEU, TROPHS, ADIFF, CMP #### [address] [address] Eosinophil, Absolute 0.2 10 3/mcL Normal 0.0-0.4 [facility] ([place]) Comment on above: Performed By: #### G FR, LIP, CBC, MDW, ANEU, TROPHS, ADIFF, CMP #### [address] [address] Eosinophils/100 WBC (Bld) 3.1 % Normal 0.0-7.0 [facility] ([place]) Comment on above: Performed By: #### G FR, LIP, CBC, MDW, ANEU, TROPHS, ADIFF, CMP #### [address] [address] Lymphocyte, Absolute 2.5 10 3/mcL Normal 0.8-3.9 [facility] ([place]) Comment on above: Performed By: #### G FR, LIP, CBC, MDW, ANEU, TROPHS, ADIFF, CMP #### [address] [address] Lymphocytes/100 WBC (Bld) 33.5 % Normal 10.0-50.0 [facility] ([place]) Comment on above: Performed By: #### G FR, LIP, CBC, MDW, ANEU, TROPHS, ADIFF, CMP #### [address] [address] Monocyte, Absolute 0.8 10 3/mcL Normal 0.2-1.0 [facility] ([place]) Comment on above: Performed By: #### G FR, LIP, CBC, MDW, ANEU, TROPHS, ADIFF, CMP #### [facility] [address] [place], [place] [address] Monocytes/100 WBC (Bld) 10.7 % Normal 1.7-13.0 [facility] ([place]) Comment on above: Performed By: #### G FR, LIP, CBC, KELVIN, ANEU, TROPHS, ADIFF, CMP #### [facility] [address], [place] [address] Neutrophils/100 WBC (Bld) 52.1 % Normal 37.0-80.0 [facility] ([place]) Comment on above: Performed By: #### G FR, LIP, CBC, KELVIN, ANEU, TROPHS, ADIFF, CMP #### [place] [address] [place], [place] [address] .GFRon 09-28-2023 GFR 133 ml/min/1.73sqm Normal [facility] ([place]) Comment on above: Result Comment: GFR Population mean for , Non- Americans Ages 20-29 = 116 mL/min/1.73 sq.m. Ages 30-39 = 107 mL/min/1.73 sq.m. Ages 40-49 = 99 mL/min/1.73 sq.m. Ages 50-59 = 93 mL/min/1.73 sq.m. Ages 60-69 = 85 mL/min/1.73 sq.m. Ages 70+ = 75 mL/min/1.73 sq.m. Chronic Kidney Disease: Less than 60 mL/min/1.73 square meters End Stage Renal Disease: Less than 15 mL/min/1.73 square meters Performed By: #### G FR, LIP, CBC, MDRose, ANEU, TROPHS, ADIFF, CMP ####[id number] [place], [place] [address] GFR Non- 109 ml/min/1.73sqm Normal [facility] ([place]) Comment on above: Result Comment: GFR Population mean for , Non- Americans Ages 20-29 = 116 mL/min/1.73 sq.m. Ages 30-39 = 107 mL/min/1.73 sq.m. Ages 40-49 = 99 mL/min/1.73 sq.m. Ages 50-59 = 93 mL/min/1.73 sq.m. Ages 60-69 = 85 mL/min/1.73 sq.m. Ages 70+ = 75 mL/min/1.73 sq.m. Chronic Kidney Disease: Less than 60 mL/min/1.73 square meters End Stage Renal Disease: Less than 15 mL/min/1.73 square meters Performed By: #### G FR, LIP, CBC, MDW, ANEU, TROPHS, ADIFF, CMP ####[place] [address] .MDWon 09-28-2023 Monocyte Distribution Width 16.39 Normal 0.00-20.00 [facility] ([place]) Comment on above: Result Comment: For ED adult patients suspected of sepsis, MDW<=20.0 does not rule out sepsis or risk of sepsis Performed By: #### G FR, LIP, CBC, MDW, ANEU, TROPHS, ADIFF, CMP #### [place] [address] .NEUABSon 09-28-2023 Neutrophil, Absolute 3.9 10 3/mcL Normal 2.9-6.2 [facility] ([place]) Comment on above: Performed By: #### G FR, LIP, CBC, MDW, ANEU, TROPHS, ADIFF, CMP #### [place] [address] CBCon 09-28-2023 Erythrocyte distribution width (RBC) [Ratio] 15.1 % High 11.5-14.5 [facility] ([place]) Comment on above: Performed By: #### G FR, LIP, CBC, MDW, ANEU, TROPHS, ADIFF, CMP #### [place] [address] Hematocrit (Bld) [Volume fraction] 43.3 % Normal 37.0-47.0 [facility] ([place]) Comment on above: Performed By: #### G FR, LIP, CBC, MDW, ANEU, TROPHS, ADIFF, CMP #### [place] [id number] Hgb 14.7 G/dL Normal 12.0-16.0 [facility] ([place]) Comment on above: Performed By: #### G FR, LIP, CBC, MDW, ANEU, TROPHS, ADIFF, CMP #### [address] [address] MCH (RBC) [Entitic mass] 30.1 pg Normal 27.0-31.2 [facility] ([place]) Comment on above: Performed By: #### G FR, LIP, CBC, MDW, ANEU, TROPHS, ADIFF, CMP #### [address] [address] MCHC 34.0 G/dL Normal 33.0-37.0 [facility] ([place]) Comment on above: Performed By: #### G FR, LIP, CBC, MDW, ANEU, TROPHS, ADIFF, CMP #### [place] [id number] MCV (RBC) [Entitic vol] 88.6 fL Normal 80.0-94.0 [facility] ([place]) Comment on above: Performed By: #### G FR, LIP, CBC, MDW, ANEU, TROPHS, ADIFF, CMP #### [address] [address] Platelet 292 10 3/mcL Normal 130-400 [facility] ([place]) Comment on above: Performed By: #### G FR, LIP, CBC, MDW, ANEU, TROPHS, ADIFF, CMP #### [address] [address] Platelet mean volume (Bld) [Entitic vol] 7.4 fL Normal 7.4-10.4 [facility] ([place]) Comment on above: Performed By: #### G FR, LIP, CBC, MDW, ANEU, TROPHS, ADIFF, CMP #### [address] [address] RBC 4.89 10 6/mcL Normal 4.20-5.40 [facility] ([place]) Comment on above: Performed By: #### G FR, LIP, CBC, MDW, ANEU, TROPHS, ADIFF, CMP #### [address] [address] WBC 7.5 10 3/mcL Normal 4.6-10.8 [facility] ([place]) Comment on above: Performed By: #### G FR, LIP, CBC, MDW, ANEU, TROPHS, ADIFF, CMP #### [address] [address] CMPon 09-28-2023 Albumin Level 3.9 G/dL Normal 3.4-4.8 [facility] ([place]) Comment on above: Performed By: #### G FR, LIP, CBC, MDW, ANEU, TROPHS, ADIFF, CMP #### [address] [address] Albumin/Globulin [Mass ratio] 1.2 {ratio} Normal 1.1-2.5 [facility] ([place]) Comment on above: Performed By: #### G FR, LIP, CBC, MDW, ANEU, TROPHS, ADIFF, CMP #### [address] [address] ALP [Catalytic activity/Vol] 115 U/L Normal 40-135 [facility] ([place]) Comment on above: Performed By: #### G FR, LIP, CBC, MDW, ANEU, TROPHS, ADIFF, CMP #### [address] [address] ALT [Catalytic activity/Vol] 22 U/L Normal 14-59 [facility] ([place]) Comment on above: Performed By: #### G FR, LIP, CBC, MDW, ANEU, TROPHS, ADIFF, CMP #### [address] [address] AST [Catalytic activity/Vol] 18 U/L Normal 10-40 [facility] ([place]) Comment on above: Performed By: #### G FR, LIP, CBC, MDW, ANEU, TROPHS, ADIFF, CMP #### [address] [address] Bili Total 0.4 mg/dL Normal 0.2-1.0 [facility] ([place]) Comment on above: Result Comment: Use of this assay is not recommended for patients undergoing treatment with eltrombopag due to the potential for falsely elevated results. Performed By: #### G FR, LIP, CBC, MDW, ANEU, TROPHS, ADIFF, CMP #### [address] [address] BUN/Creatinine Ratio 16 ratio Normal 7-27 [facility] ([place]) Comment on above: Performed By: #### G FR, LIP, CBC, MDW, ANEU, TROPHS, ADIFF, CMP #### [address] [address] Calcium [Mass/Vol] 9.5 mg/dL Normal 8.4-10.2 [facility] ([place]) Comment on above: Performed By: #### G FR, LIP, CBC, MDW, ANEU, TROPHS, ADIFF, CMP #### [address] [address] Chloride [Moles/Vol] 103 mmol/L Normal 98-107 [facility] ([place]) Comment on above: Performed By: #### G FR, LIP, CBC, MDW, ANEU, TROPHS, ADIFF, CMP #### [address] [address] CO2 [Moles/Vol] 28 mmol/L Normal 23-31 [facility] ([place]) Comment on above: Performed By: #### G FR, LIP, CBC, MDW, ANEU, TROPHS, ADIFF, CMP #### [address] [address] Creatinine [Mass/Vol] 0.56 mg/dL Normal 0.55-1.02 [facility] ([place]) Comment on above: Performed By: #### G FR, LIP, CBC, MDW, ANEU, TROPHS, ADIFF, CMP #### [address] [address] Electrolyte Balance 10.0 mEq/L Normal 4.0-15.0 [facility] ([place]) Comment on above: Performed By: #### G FR, LIP, CBC, MDW, ANEU, TROPHS, ADIFF, CMP #### [address] [address] Globulin 3.3 G/dL Normal [facility] ([place]) Comment on above: Performed By: #### G FR, LIP, CBC, MDW, ANEU, TROPHS, ADIFF, CMP #### [address] [address] Glucose [Mass/Vol] 101 mg/dL Normal 80-115 [facility] ([place]) Comment on above: Performed By: #### G FR, LIP, CBC, MDW, ANEU, TROPHS, ADIFF, CMP #### [address] [address] Potassium [Moles/Vol] 4.3 mmol/L Normal 3.5-5.1 [facility] ([place]) Comment on above: Performed By: #### G FR, LIP, CBC, MDW, ANEU, TROPHS, ADIFF, CMP #### [address] [address] Sodium [Moles/Vol] 141 mmol/L Normal 136-145 [facility] ([place]) Comment on above: Performed By: #### G FR, LIP, CBC, MDW, ANEU, TROPHS, ADIFF, CMP #### [address] [address] Total Protein 7.2 G/dL Normal 6.4-8.2 [facility] ([place]) Comment on above: Performed By: #### G FR, LIP, CBC, MDW, ANEU, TROPHS, ADIFF, CMP #### [address] [address] Urea nitrogen [Mass/Vol] 9 mg/dL Normal 7-18 [facility] ([place]) Comment on above: Performed By: #### G FR, LIP, CBC, MDW, ANEU, TROPHS, ADIFF, CMP #### [address] [place] [address] CT HEAD OR BRAIN W/O CONTRAS Ton 09-28-2023 CT HEAD OR BRAIN W/O CONTRAST ORIGINAL EXAMINATION: CT OF THE HEAD WITHOUT [...] Date: 09/28/2023 5:02:18 PM Ordering Provider: JOCELIN VALENTINE [facility] ([place]) LABORATORYOrdered By: Nic Colbert on 09-28-2023 Appearance (U) Clear (09/28/23 4:25 PM) Normal Clear AO Auto Urine SS Bilirubin Ql (U) Negative (09/28/23 4:25 PM) Normal Negative AO Auto Urine SS Color (U) Yellow (09/28/23 4:25 PM) Normal AO Auto Urine SS Glucose Test strip (U) [Mass/Vol] Negative Normal Negative AO Auto Urine SS Hemoglobin Auto test strip (U) [Mass/Vol] Trace *ABN* (09/28/23 4:25 PM) Invalid Interpretation Code Negative AO Auto Urine SS Ketones Ql (U) Negative Normal Negative AO Auto Urine SS UA Leuk Est Negative (09/28/23 4:25 PM) Normal Negative AO Auto Urine SS UA Nitrite Negative (09/28/23 4:25 PM) Normal Negative AO Auto Urine SS UA pH 6.0 (09/28/23 4:25 PM) Normal 5.0 - 8.0 AO Auto Urine SS UA Protein Negative Normal Negative AO Auto Urine SS UA Spec Grav 1.015 (09/28/23 4:25 PM) Normal 1.015-1.025 AO Auto Urine SS UA Specimen Type Clean Catch (09/28/23 4:25 PM) Normal AO Auto Urine SS UA Urobilinogen 0.2 E.U./dL Normal 0.2-1.0 AO Auto Urine SS LABORATORYOrdered By: SYSTEM SYSTEM on 09-28-2023 Albumin BCP dye [Mass/Vol] 3.9 G/dL Normal 3.4 - 4.8 G/dL AO ADM SS Albumin/Globulin [Mass ratio] 1.2 {ratio} Normal 1.1 - 2.5 ratio AO ADM SS ALP [Catalytic activity/Vol] 115 U/L Normal 40 - 135 U/L AO ADM SS ALT With P-5'-P [Catalytic activity/Vol] 22 U/L Normal 14 - 59 U/L AO ADM SS AST With P-5'-P [Catalytic activity/Vol] 18 U/L Normal 10 - 40 U/L AO ADM SS Basophil, Absolute 0.0 103/mcL Normal 0.0 - 0.2 10^3/mcL AO Workflow SS Basophils/100 WBC (Bld) 0.6 % Normal 0.0 - 2.5 % AO Workflow SS Bilirubin [Mass/Vol] 0.4 mg/dL Normal 0.2 - 1 .0 mg/dL AO ADM SS Comment on above: Interpretive Data: U se of this assay is not recommended for patients undergoing treatment with eltrombopag due to the potential for falsely elevated results. Calcium [Mass/Vol] 9.5 mg/dL Normal 8.4 - 10. 2 mg/dL AO ADM SS Chloride [Moles/Vol] 103 mmol/L Normal 98 - 10 7 mmol/L AO ADM SS CO2 [Moles/Vol] 28 mmol/L Normal 23 - 31 mmol/L AO ADM SS Creatinine [Mass/Vol] 0.56 mg/dL Normal 0.55 - 1.02 mg/dL AO ADM SS Electrolyte Balance 10.0 mEq/L Normal 4.0 - 15 .0 mEq/L AO ADM SS Eosinophil, Absolute 0.2 103/mcL Normal 0.0 - 0 .4 10^3/mcL AO Workflow SS Eosinophils/100 WBC (Bld) 3.1 % Normal 0.0 - 7.0 % AO Workflow SS Erythrocyte distribution width (RBC) [Ratio] 15.1 % High 11.5 - 14.5 % AO Workflow SS GFR/1.73 sq M.predicted among blacks MDRD (S/P/Bld) [Vol rate/Area] 133 ml/min/1.73sqm Invalid Interpretation Code AO Chemistry S Comment on above: Interpretive Data: GFR Population mean for , Non- Americans Ages 20-29 = 116 mL/min/1.73 sq.m. Ages 30-39 = 107 mL/min/1.73 sq.m. Ages 40-49 = 99 mL/min/1.73 sq.m. Ages 50-59 = 93 mL/min/1.73 sq.m. Ages 60-69 = 85 mL/min/1.73 sq.m. Ages 70+ = 75 mL/min/1.73 sq.m. Chronic Kidney Disease: Less than 60 mL/min/1.73 square meters End Stage Renal Disease: Less than 15 mL/min/1.73 square meters GFR/1.73 sq M.predicted among non-blacks MDRD (S/P/Bld) [Vol rate/Area] 109 ml/min/1.73sqm Invalid Interpretation Code AO Chemistry S Comment on above: Interpretive Data: GFR Population mean for , Non- Americans Ages 20-29 = 116 mL/min/1.73 sq.m. Ages 30-39 = 107 mL/min/1.73 sq.m. Ages 40-49 = 99 mL/min/1.73 sq.m. Ages 50-59 = 93 mL/min/1.73 sq.m. Ages 60-69 = 85 mL/min/1.73 sq.m. Ages 70+ = 75 mL/min/1.73 sq.m. Chronic Kidney Disease: Less than 60 mL/min/1.73 square meters End Stage Renal Disease: Less than 15 mL/min/1.73 square meters Globulin 3.3 G/dL Invalid Interpretation Code AO ADM SS Glucose [Mass/Vol] 101 mg/dL Normal 80 - 115 mg/dL AO ADM SS Hematocrit (Bld) [Volume fraction] 43.3 % Normal 37.0 - 47.0 % AO Workflow SS Hemoglobin (Bld) [Mass/Vol] 14.7 G/dL Normal 12.0 - 16.0 G/dL AO Workflow SS Lipase [Catalytic activity/Vol] 21 U/L Normal 16 - 77 U/L AO ADM SS Lymphocyte, Absolute 2.5 103/mcL Normal 0.8 - 3 .9 10^3/mcL AO Workflow SS Lymphocytes/100 WBC (Bld) 33.5 % Normal 10.0 - 50.0 % AO Workflow SS MCH (RBC) [Entitic mass] 30.1 pg Normal 27.0 - 31.2 pg AO Workflow SS MCHC 34.0 G/dL Normal 33.0 - 37.0 G/dL AO Workflow SS MCV (RBC) [Entitic vol] 88.6 fL Normal 80.0 - 94.0 fL AO Workflow SS Monocyte distribution width Auto (Bld) [Entitic vol] 16.39 1 Normal 0.00 - 20.00 AO Workflow SS Comment on above: Result Comment: For ED adult patients suspected of sepsis, MDW<=20.0 does not rule out sepsis or risk of sepsis Monocyte, Absolute 0.8 103/mcL Normal 0.2 - 1.0 10^3/mcL AO Workflow SS Monocytes/100 WBC (Bld) 10.7 % Normal 1.7 - 13.0 % AO Workflow SS Neutrophil, Absolute 3.9 103/mcL Normal 2.9 - 6 .2 10^3/mcL AO Workflow SS Neutrophils/100 WBC (Bld) 52.1 % Normal 37.0 - 80.0 % AO Workflow SS Platelet mean volume (Bld) [Entitic vol] 7.4 fL Normal 7.4 - 10.4 fL AO Workflow SS Platelets (Bld) [#/Vol] 292 103/mcL Normal 130 - 400 10^3/mcL AO Workflow SS Potassium [Moles/Vol] 4.3 mmol/L Normal 3.5 - 5.1 mmol/L AO ADM SS Protein [Mass/Vol] 7.2 G/dL Normal 6.4 - 8.2 G/dL AO ADM SS RBC (Bld) [#/Vol] 4.89 106/mcL Normal 4.20 - 5.4 0 10^6/mcL AO Workflow SS Sodium [Moles/Vol] 141 mmol/L Normal 136 - 145 mmol/L AO ADM SS Troponin I.cardiac DL <= 0.01 ng/mL [Mass/Vol] 7.1 ng/L Normal 0.0 - 51.4 ng/L AO ADM SS Urea nitrogen [Mass/Vol] 9 mg/dL Normal 7 - 18 mg/dL AO ADM SS Urea nitrogen/Creatinine [Mass ratio] 16 ratio Normal 7 - 27 ratio AO ADM SS WBC (Bld) [#/Vol] 7.5 103/mcL Normal 4.6 - 10.8 10^3/mcL AO Workflow SS LIPon 09-28-2023 Lipase Level 21 U/L Normal 16-77 [facility] ([place]) Comment on above: Performed By: #### G FR, LIP, CBC, MDW, ANEU, TROPHS, ADIFF, CMP #### Mehul [address] [address] TROPHSon 09-28-2023 Troponin I High Sensitivity 7.1 ng/L Normal 0.0-51.4 [facility] ([place]) Comment on above: Performed By: #### G FR, LIP, CBC, MDW, ANEU, TROPHS, ADIFF, CMP #### Mehul [address] [address] UAon 09-28-2023 Color (U) Yellow Normal [facility] ([place]) Comment on above: Performed By: #### U A ####Mehul [address] [place], [place] [address] Glucose (U) [Mass/Vol] Negative Normal Negative [facility] ([place]) Comment on above: Performed By: #### U A ####Mehul [address] [place], [place] [address] Ketones Ql (U) Negative Normal Negative [facility] ([place]) Comment on above: Performed By: #### U A ####Mehul [address] [place], [place] [address] UA Appear Clear Normal Clear [facility] ([place]) Comment on above: Performed By: #### U A ####Mehul [address] [place], [place] [address] UA Blood Trace Abnormal Negative [facility] ([place]) Comment on above: Performed By: #### U A ####Mehul [address] [place] [address] UA Leuk Est Negative Normal Negative [facility] ([place]) Comment on above: Performed By: #### U A ####Me[address] [place] [address] UA Nitrite Negative Normal Negative [facility] ([place]) Comment on above: Performed By: #### U A ####Mehul [address] [place] [address] UA pH 6.0 Normal 5.0 - 8.0 [facility] ([place]) Comment on above: Performed By: #### U A ####Mehul [address] [place], [place] [address] UA Protein Negative Normal Negative [facility] ([place]) Comment on above: Performed By: #### U A ####Mehul [address] [place] [address] UA Spec Grav 1.015 Normal 1.015-1.025 [facility] ([place]) Comment on above: Performed By: #### U A ####[address] [place] [address] UA Specimen Type Clean Catch Normal [facility] ([place]) Comment on above: Performed By: #### U A ####Mehul [address] [place] [address] UA Urobilinogen 0.2 E.U./dL Normal 0.2-1.0 [facility] ([place]) Comment on above: Performed By: #### U A ####[address] [place] [address] Urobilinogen (U) [Mass/Vol] Negative Normal Negative [facility] ([place]) Comment on above: Performed By: #### U A ####Mehul [address] [place], [place] [address] XR CHEST 1 VIEWon 09-28-2023 XR CHEST 1 VIEW ORIGINAL EXAMINATION: ONE XRAY VIEW OF THE [...] Sign Date: 09/28/2023 5:29:39 PM Ordering Provider: JOCELIN Sosa [facility] ([place]) XR PELVIS 1 OR 2 VIEWSon XR PELVIS 1 OR 2 VIEWS ORIGINAL EXAMINATION: ONE XRAY VIEW OF THE [...] Sign Date: 09/28/2023 5:30:27 PM Ordering Provider: JOCELIN TAWNYAASHLEY Sosa [facility] ([place]) Toby 09-16-2023 NEALN Telephone (PULMJ) -- [place] RAMSEY ([id number]) 1960 F Date Time Provider Department 09/16/23 KILEY HARRIS [facility] During your visit today, we recorded the following information about you: Kiley Harris APRN.CNP 09/16/2023 1:55 PM Signed Spoke with patient and the following results were discussed: CT Chest Results Pt has small nodules noted with tree in bud type nodules in RLL. She has persistent cough with yellow sputum. No recent infections. No aspiration issues. Recommendations: sputum culture, treat per results and CT Chest in 6-8 weeks for follow up Case reviewed with patient's donor services coordinator Dr. Rosibel Loo Patient verbalized understanding of the results and had no other questions or concerns at this time. Kiley Harris APRN.[facility] September 16, 2023 1:53 PM Allergies As of Date: 09/16/2023 Noted Allergy Reaction DEMORAL (MEPERIDINE) 02/03/2008 2 - Rash DESYREL (TRAZODONE HCL) 06/30/2006 2 - Rash DOXYCYCLINE 07/15/2010 4 - Hives ERYTHROMYCIN 06/30/2006 2 - Rash MORPHINE 06/30/2006 7 - Swelling PREDNISONE 05/13/2010 2 - Rash Date Reviewed: 08/27/2023 Reviewed by: Perla Kennedy PA-C - Fully Assessed Reason for Visit: Results [95] Primary Visit Diagnosis:Persistent cough [R05.3] Order(s):RESP CULTURE + STAIN [SQRCULST] Order #: [id number]. #:[id number] AFB CULT + STAIN [SQAF] Order #: [id number]. #:[id number] Prescriptions as of 03/07/2024 - cyclobenzaprine (FLEXERIL) 10 mg tablet Take 1 tablet by mouth three times a day. - meclizine (ANTIVERT) 25 mg tab Take 1 tablet by mouth every 6 hours as needed (dizziness). - fluticasone-salmeterol (ADVAIR DISKUS) 250-50 mcg/dose inhaler inhale 1 puff by mouth and INTO THE LUNGS twice a day Rinse mouth after use - ondansetron (ZOFRAN) 4 mg tablet Take 1 tablet by mouth every 8 hours as needed for up to 10 doses. - tiotropium bromide (SPIRIVA RESPIMAT) 2.5 mcg/actuation inhaler Inhale 2 Puffs as instructed once daily. - melatonin 10 mg tab Take 1 tablet by mouth at bedtime as needed. - QUEtiapine (SEROQUEL) 400 mg tablet take 2 tablets by mouth once daily at bedtime - OXYGEN, HOME THERAPY, 2 L/min by Nasal Cannula route continuous. - albuterol (PROVENTIL) 2.5 mg /3 mL (0.083 %) nebulizer solution Use 3 mL via nebulizer every 4 hours as needed for wheezing/shortness of breath. Use over 5-15minutes. - pantoprazole DR (PROTONIX) 20 mg tablet Take 1 tablet by mouth daily before breakfast. Take on empty stomach, 1/2 hr before meal. - cholecalciferol, Vitamin D3, (VITAMIN D3) 1,250 mcg (50,000 unit) cap capsule Take 1 capsule by mouth one time a week. - mineral oil/hydrophil petrolatum (AQUAPHOR) oint Apply to affected area as needed. Apply liberally to area three times a day. - lamoTRIgine (LAMICTAL) 150 mg tablet Take [...] twice daily. Problem List As Of Date 09/16/2023 Noted Resolved TOBACCO USE DISORDER [F17.200] Acute [...] Preop testing [Z01.818] 07/21/2023 Asthma [J45.909] 07/21/2023 Essential (primary) hypertension [I10] 07/21/2023 History of pulmo (more content not included)... Normal [facility] XR Shoulder - right 3 Viewso n 08-31-2023 IMPRESSION: Shoulder prosthesis appears appropriate in positioning Teacher Physically Impaired: QUYEN Transcribe Date/Time: Aug 31 2023 7:31P Dictated by : JOSE DIAZ MD This examination was interpreted and the report reviewed and electronically signed by: JOSE DIAZ MD on Aug 31 2023 7:32PM EST [facility] * * *Final Report* * * DATE OF EXAM: Aug 27 2023 8:43AM MDO 5253 - XR SHLDR >/=3V AP/SHAW AP/OTHR RT / PROCEDURE REASON: multiple diagnoses * * * * Physician Interpretation * * * * XR SHLDR >/=3V AP/SHAW AP/OTHR RT PROVIDED HISTORY: Chronic right shoulder pain Chronic right shoulder pain COMPARISON: No previous similar exams are available for comparison TECHNIQUE: 3 views RESULT: Reverse right shoulder prosthesis is noted. Bony mineralization grossly unremarkable. Osseous alignment appears intact. Moderate spurring along the inferior acromion. No acute fractures seen. [facility] Provider, Kristin Callejas - 08/31/2023 * * *Final Report* * * DATE OF EXAM: Aug 27 2023 8:43AM MDO 5253 - XR SHLDR >/=3V AP/SHAW AP/OTHR RT / PROCEDURE REASON: multiple diagnoses * * * * Physician Interpretation * * * * XR SHLDR >/=3V AP/SHAW AP/OTHR RT PROVIDED HISTORY: Chronic right shoulder pain Chronic right shoulder pain COMPARISON: No previous similar exams are available for comparison TECHNIQUE: 3 views RESULT: Reverse right shoulder prosthesis is noted. Bony mineralization grossly unremarkable. Osseous alignment appears intact. Moderate spurring along the inferior acromion. No acute fractures seen. IMPRESSION IMPRESSION: Shoulder prosthesis appears appropriate in positioning Teacher Physically Impaired: QUYEN Transcribe Date/Time: Aug 31 2023 7:31P Dictated by : JOSE DIAZ MD This examination was interpreted and the report reviewed and electronically signed by: JOSE DIAZ MD on Aug 31 2023 7:32PM EST [facility] XR Shoulder - right 3 ViewsO rdered By: [facility] Provider on 08-31-2023 [facility] XR SHLDR >/=3V AP/SHAW AP/OTH R RTon 08-27-2023 XR SHLDR >/=3V AP/SHAW AP/OTHR RT * * *Final Report* * * DATE OF EXAM: Aug 27 2023 8:43AM MDO 5253 - XR SHLDR >/=3V AP/SHAW AP/OTHR RT / PROCEDURE REASON: multiple diagnoses * * * * Physician Interpretation * * * * XR SHLDR >/=3V AP/SHAW AP/OTHR RT PROVIDED HISTORY: Chronic right shoulder pain Chronic right shoulder pain COMPARISON: No previous similar exams are available for comparison TECHNIQUE: 3 views RESULT: Reverse right shoulder prosthesis is noted. Bony mineralization grossly unremarkable. Osseous alignment appears intact. Moderate spurring along the inferior acromion. No acute fractures seen. IMPRESSION: Shoulder prosthesis appears appropriate in positioning Teacher Physically Impaired: QUYEN Transcribe Date/Time: Aug 31 2023 7:31P Dictated by : JOSE DIAZ MD This examination was interpreted and the report reviewed and electronically signed by: JOSE DIAZ MD on Aug 31 2023 7:32PM EST [id number] [facility] XR Shoulder - right 3 Viewso n 08-27-2023 Radiology Study observation (narrative) [facility] 08-26-2023 NEALN Telephone (CHERRI) -- [place] RAMSEY ([id number]) 1960 F Date Time Provider Department 08/26/23 [facility] During your visit today, we recorded the following information about you: Kiley Harris APRN.WARD SERVICE SUPERVISOR 08/26/2023 3:28 PM Signed Phone call to patient to follow up on rescheduling her CT Chest. A diagnostic study was ordered due to unexplained weight loss. She stated she was busy right now and they could call back later today to schedule her. Message sent to scheduling. She cancelled 07/16/2023 CT and No Showed 07/20/2023 CT. Allergies As of Date: 08/26/2023 Noted Allergy Reaction DEMORAL (MEPERIDINE) 02/03/2008 2 - Rash DESYREL (TRAZODONE HCL) 06/30/2006 2 - Rash DOXYCYCLINE 07/15/2010 4 - Hives ERYTHROMYCIN 06/30/2006 2 - Rash MORPHINE 06/30/2006 7 - Swelling PREDNISONE 05/13/2010 2 - Rash Date Reviewed: 08/04/2023 Reviewed by: Mary Del Angel RN - Fully Assessed Reason for Visit: Appointment [186] Prescriptions as of 08/26/2023 - ondansetron (ZOFRAN) 4 mg tablet Take 1 tablet by mouth every 8 hours as needed for up to 10 doses. - tiotropium bromide (SPIRIVA RESPIMAT) 2.5 mcg/actuation inhaler Inhale 2 Puffs as instructed once daily. - melatonin 10 mg tab Take 1 tablet by mouth at bedtime as needed. - QUEtiapine (SEROQUEL) 400 mg tablet take 2 tablets by mouth once daily at bedtime - fluticasone-salmeterol (ADVAIR DISKUS) 250-50 mcg/dose inhaler Inhale 1 Puff as instructed twice daily. - OXYGEN, HOME THERAPY, 2 L/min by Nasal Cannula route continuous. - albuterol (PROVENTIL) 2.5 mg /3 mL (0.083 %) nebulizer solution Use 3 mL via nebulizer every 4 hours as needed for wheezing/shortness of breath. Use over 5-15minutes. - pantoprazole DR (PROTONIX) 20 mg tablet Take 1 tablet by mouth daily before breakfast. Take on empty stomach, 1/2 hr before meal. - cholecalciferol, Vitamin D3, (VITAMIN D3) 1,250 mcg (50,000 unit) cap capsule Take 1 capsule by mouth one time a week. - mineral oil/hydrophil petrolatum (AQUAPHOR) oint Apply to affected area as needed. Apply liberally to area three times a day. - lamoTRIgine (LAMICTAL) 150 mg tablet Take [...] twice daily. Problem List As Of Date 08/26/2023 Noted Resolved TOBACCO USE DISORDER [F17.200] Acute [...] Preop testing [Z01.818] 07/21/2023 Asthma [J45.909] 07/21/2023 Essential (primary) hypertension [I10] 07/21/2023 History of pulmonary embolus (PE) [Z86.711] 07/21/2023 Chronic hypoxemic respiratory failure (HCC) [J9*07/21/2023 Presence of right artificial shoulder joint [Z9*08/18/2023 Encounter Status:Closed by KILEY HARRIS on 08/26/23 [facility]IED [facility]ALTH[facility] 08-05-2023 [facility] HNO ID: [id number] Author: Nelida Lezama RT(R) Service: Radiology Author Type: Technologist Type: [facility] Filed: 08/05/2023 7:37 AM Note Text: Radiology Service Progress Note PATIENT NAME: [place] Ramsey DATE OF SERVICE: August 05, 2023 TIME: 7:37 AM PATIENT IDENTITY VERIFICATION COMPLETED USING TWO (2) IDENTIFIERS: Name and Date of confirmed by patient verbally and Name and Date of confirmed by identification band. FALL SCREENING: Has the patient had 2 falls in the last year or 1 fall with injury or currently using an Ambulatory Assistive Device (Walker, Cane, Wheelchair, Crutches, etc.)? Inpatient: Screened on floor PATIENT GENDER DATA: Female. status: : No status: NO. PATIENT RELEVANT IMPLANT DATA REVIEWED: Not Applicable RADIOLOGY DEPARTMENT: General X-ray: Exam(s) Completed: Upper Extremity X-Ray(s): Shoulder, AP / TRUE AP right PERIPHERAL IV DATA: Not applicable SIGNED BY: RT Janel(R) August 05, 2023 7:37 AM [facility] HNO ID: [id number] Author: Wilson Bey MD Service: Orthopaedic Surgery Author Type: Resident Type: Discharge Summary Filed: 08/05/2023 7:07 AM Note Text: -- Attestation signed by Carolyn Jamison MD at 08/11/2023 1:28 PM Attending Note I discussed with resident. The patient was not examined by the attending. I reviewed the resident's note. I agree with the resident's assessment and plan unless otherwise noted. Signature: Carolyn Jamison MD Date: 08/11/2023. Time: 1:28 PM -- DISCHARGE SUMMARY PATIENT NAME: [place] Ramsey Code Status: Not on file Highest Readmission Risk Score: 11 The 30 day readmissions risk score is derived from an internally validated risk model which evaluates patient level characteristics, utilization history, medication orders and lab results up until the day of discharge. Patients with a score of 40 or above are considered highest risk for readmission. Specific patient level drivers will be listed at the bottom of the summary. Admission Information Admission Information ADMIT DATE: 08/04/2023 DISCHARGE DATE: 08/05/2023 MY DOCTORS AND MEDICAL TEAM: My Main Hospital Doctor: Carolyn Jamison, * Primary Care Provider: Teresa Aguilar MD My Medical Team Members: Treatment Team: Attending Provider: Carolyn Jamison MD MY CONDITION AT DISCHARGE: Stable REASON I WAS IN THE HOSPITAL: right reverse total shoulder procedure SUMMARY OF WHAT HAPPENED WHILE I WAS IN THE HOSPITAL: You were admitted to the hospital after your reverse total shoulder procedure. After the procedure you were transferred to the recovery room in a stable condition. After you recovered from anesthesia you were transferred to a regular nursing floor. You were then seen by both physical therapy and occupational therapy. After all recommendations by consulting providers were given, your pain was well controlled, you were deemed stable for discharge. You were discharged to home in a stable condition OTHER PROBLEMS/DIAGNOSIS: Active Problems: * No active hospital problems. * Resolved Problems: * No resolved hospital problems. * OPERATIONS PERFORMED WHILE IN THE HOSPITAL: REVERSE TOTAL SHOULDER ARTHROPLASTY: 37435 (CPT?) IMPORTANT TEST/PROCEDURES: No procedures performed TEST RESULTS NOT AVAILABLE AT THIS TIME: No pending results Discharge Disposition Discharge Disposition: Home With Self Care Activity When You Leave the Hospital No prolonged bedrest, longer than 8 hours in a 24 hour period Other: -Sling/swathe, No lifting greater than 5 lbs RUE, ok for passive ROM Diet Instructions Resume your pre-hospital diet For Pain When You Leave the Hospital Apply a covered cold pack to the area Keep area at rest and elevate it to reduce pain and swelling No alcohol or driving while on pain medication Use acetaminophen (Tylenol) as recommended on the bottle Use the dispensed medication (see prescription) Wound/Surgical Site Care Apply heating pad as needed Apply ice packs as needed It is normal to have swelling, mild bruising, blood on the steri-strips, numbness and firmness around the incision Keep your dressing clean and dry Leave open to air After post operative day 7 Other: Mepilex x 7-10 days Some bleeding from the wound/surgical site can be expected. If excessive, see a doctor at once Some bleeding from the wound/surgical site can be expected. If you soak a gauze bandage in one hour, see a doctor at once Steri strips can get wet. Let them fall off or remove in: 14 days Wash your hands frequently, especially before touching your incision, after using restroom and before eating Your incision has skin glue. It will peel off on its own. It can get wet Call Your Doctor If There is an unusual odor from the wound area There is severe pain at the operative site You have pain and swelling in your legs, especially if it is only on one side and not the other You have persistent or heavy bleeding You have redness, swelling, pus or drainage from the wound Your temperature is greater than 101F Follow Up Appointments Follow-Up Appointment When: In 2 weeks Carolyn Jamison MD [phone] [place] [address] PCP Requested Referral FOLLOW-UP APPOINTMENTS ALREADY SCHEDULED WITH A [facility] PROVIDER: Future Appointments Date Time Provider Department Center 08/11/2023 9:00 AM Robin Louis PT PTWS [place] 08/13/2023 10:15 AM Carolyn Jamison MD [facility] [place] [facility] 08/30/2023 10:30 AM Alivia Lozano, 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 [facility] 11/03/2023 10:00 AM Betzy Alejandro, PA-C PULMWS [place] ALLERGIES Allergen Reactions Demoral [Meperidine] Rash Desyrel [Trazodone * Rash Doxycycline Hives (more content not included)... Normal [facility] THERAPY NTon 08-05-2023 THERAPY NT HNO ID: [id number] Author: Peace Conley, BRITTANYR/L Service: Occupational Therapy Author Type: Occupational Therapist Type: Therapy (PT/OT/Speech/Resp) Filed: 08/05/2023 10:48 AM Note Text: Occupational Therapy Evaluation SERVICE DATE: 08/05/2023 SERVICE TIME: 0952 to 1010 ROOM: [place] [address] Recommended Discharge Disposition: Home Recommended Discharge Disposition Comments: home with assist from family for ADLs/iADLs as needed Anticipated Discharge Needs: Physical Assist at Home Physical Assist at Home for: Cleaning, Laundry, Meals, Self Care, Shopping, Transportation Recommended Discharge Equipment: Shower Chair OT 6 Clicks Score: 18 Precautions/Activity Restrictions: Weight Bearing Restrictions, Sling Isolation Type: None Extremity With Weight Bearing Restricted: Right Upper Extremity Right Upper Extremity Weight Bearing Status: PWB (no lifitng more than 5lbs, OK for PROM) Current Hospital Course: s/p elective R rTSA Reason for Hospital Admission: elective R rTSA Relevant Past Medical History: right rotator cuff tear Response to Therapy Interventions: Good Participation in Activities, Pain Continued Skilled Needs Due to: Functional Impairment Occupational Therapy Problem List: Impaired Self Care, Decreased Range Of Motion, Decreased Strength, Pain Cognition/Communication Deficits Responsiveness: Alert, Awake Follows Commands: 3-step Commands Treatment Interventions: Education, Self Care/Home Management, Energy Conservation Training Home Environment Patient Lives With: Self/Alone, Other: See Comment Comments: planning to stay at 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 Baseline Cognition: Oriented to self, Oriented to place, Oriented to time, Oriented to situation Occupational Factors Life Roles: Parent Identified Strengths: Good Support System Identified Barriers: Difficulty with ADLs/IADLs, Managing Pain Subjective: patient pleasant and agreeable to OT CURRENT FUNCTIONAL STATUS: Most recent performance Current Activities of Daily Living Assist Level Additional Information Feeding Independent Grooming Set Up Bathing Upper Body Minimal Assistance Bathing Lower Body Minimal Assistance Dressing Upper Body Minimal Assistance Dressing Lower Body Moderate Assistance Toileting Contact Guard Assistance Functional Mobility Assist Level Additional Information Rolling Supine to Sit Sit to Supine Scooting Sit to Stand Contact Guard Assistance Stand to Sit Contact Guard Assistance Bed to Chair Toilet/Commode Shower Functional Mobility Contact Guard Assistance None Blank hester indicate activity not attempted Hand Dominance: Left Range of Motion: ROM Limitation Comments ROM Limitation Comments: R UE N/T due to sx Strength: Strength Limitation Comments Strength Limitation Comments: R UE N/T due to sx Balance: Static Standing, Dynamic Standing Static Standing Balance: Fair Patient able to maintain balance with handhold support, may require occasional minimal assistance Dynamic Standing Balance: Fair Patient accepts minimal challenge, able to maintain balance while turning head/trunk Learning/Educational Needs: Discharge Plan, Plan of Care, Functional Activities/Mobility, Equipment, Precautions, Self Care Goals for Plan of Care: Patient/Caregiver Goals: Participate in meaningful activities Grooming with: Supervision Upper Body Bathing with: Supervision Upper Body Dressing with: Supervision Lower Body Dressing with: Stand By Assistance Toilet Hygiene with: Independent Chair Transfer with: Independent Toilet Transfer with: Independent Demonstrate Competence with Education with: Independent (sling mgmt, ADL within shoulder precautions) Rehab Potential: Good Patient will be discontinued from Occupational Therapy when no further skilled needs are identified in this setting. PLAN: OT Frequency: 1 Time Per Week Plan of Care developed with: Patient TREATMENT INTERVENTIONS: Therapy Diagnosis: Reduced mobility-other, Decreased activities of daily living (ADL) Interventions Provided: Evaluation $ Evaluation - Moderate (77290) Billed Units: 1 unit Instructed in post-op instructions during ADLs for bathing, toileting, upper/lower body dressing Instructed patient in no lifting more than 5lbs. Provided instruction, cuing and facilitation for upper body dressing with cues to dress surgical arm first. Provided instruction, cuing and facilitation for bathing upper body techs. Education in sling and swathe management and how to don/doff independently at home Training AND Education Provided in: Activity Adaptation/Compensatory Strategies, Benefits of In-Hospital (more content not included)... Normal [facility] XR SHOULDER SPECIFY 1V RTon 08-05-2023 XR SHOULDER SPECIFY 1V RT * * *Final Report* * * DATE OF EXAM: Aug 05 2023 7:39AM AKX [id number] - XR SHOULDER SPECIFY 1V RT / PROCEDURE REASON: Postoperative assessment * * * * Physician Interpretation * * * * EXAMINATION: XR SHOULDER SPECIFY 1V RT HISTORY: POST OP Postoperative assessment. COMPARISON: Right shoulder radiographs 01/07/2023 TECHNIQUE: XR SHOULDER SPECIFY 1V RT Laterality: RIGHT Number of different views (projections): 1 M: XB_1 FINDINGS: Postsurgical changes of reverse shoulder arthroplasty. No hardware complication seen. IMPRESSION: Right shoulder arthroplasty. Teacher Physically Impaired: PSCB Transcribe Date/Time: Aug 05 2023 8:33A Dictated by : ROYAL ROMERO MD This examination was interpreted and the report reviewed and electronically signed by: ROYAL ROMERO MD on Aug 05 2023 8:34AM EST [id number] [facility] ALLIED HEALTHon 08-04-2023 ALLIED HEALTH HNO ID: [id number] Author: Giorgi Verduzco Chaplain Service: Spiritual Care Author Type: Broadcast Chief Engineer Type: Allied Health Filed: 08/04/2023 7:54 AM Note Text: SPIRITUAL CARE PROGRESS NOTE SERVICE DATE: 08/04/2023 SERVICE TIME: 7am Broadcast Chief Engineer was supportive presence before surgery; pt expressed she was anxious To contact the Spiritual Care Department: Please call . SIGNATURE: Chaplain Leesa PATIENT NAME: Albania Ramsey DATE: August 04, 2023 TIME: 7:53 AM PAGER/CONTACT #: [phone] [facility] ANES POSTPROC EVALon 023 ANES POSTPROC EVAL HNO ID: [id number] Author: Yamil Steel MD Service: Anesthesiology Author Type: Physician Type: Anesthesia Postprocedure Evaluation Filed: 08/09/2023 9:23 AM Note Text: POST ANESTHESIA EVALUATION NOTE : 1960 Procedure Summary Date: 08/04/23 Room / Location: [place] [address] [place] [address] OR Anesthesia Start: 1044 Anesthesia Stop: 1225 Procedure: REVERSE TOTAL SHOULDER ARTHROPLASTY (Right: Shoulder) Diagnosis: Primary osteoarthritis of right shoulder Chronic right shoulder pain Impingement syndrome of right shoulder (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.011]) (Chronic right shoulder pain [M25.511, G89.29]) (Impingement syndrome of right shoulder [M75.41]) Surgeons: Carolyn Jamison MD Responsible Provider: Yamil Steel MD Anesthesia Type: general ASA Status: 3 Anesthesia Type: general Airway Type: ETT Last Vitals Vitals Value Taken Time BP 130/70 08/04/23 1500 Temp 36 ?C (96.8 ?F) 08/04/23 1345 HR SpO2 88 08/04/23 1515 Resp 21 08/04/23 1515 SpO2 95 % 08/04/23 1515 Post Anesthesia Patient Status Patient Evaluation: PACU. PACU/ICU Patient Condition: stable. Anticipated Disposition: inpatient floor planned admission. Neurological Status: aware and responsive. Pulmonary Status: breathing comfortably on supplemental oxygen Airway Control: returned to baseline unsupported. Cardiovascular Status: stable. Pain Management: clinically adequate Postoperative Hydration: acceptable. Intraoperative Events: no significant anesthesia events Post Operative Nausea/Vomiting Status: no significant post operative nausea or vomiting Recommendation: continue current plan of care and further care per PACU/ICU/floor team. Anesthesia Observations No Documentation SIGNATURE: Yamil Steel MD PATIENT NAME: Albania Ramsey DATE: August 09, 2023 TIME: 9:17 AM CSN: [id number] [facility] ANES PRE-OPon 08-04-2023 ANES PRE-OP HNO ID: [id number] Author: Yamil Steel MD Service: Anesthesiology Author Type: Physician Type: Anesthesia Preprocedure Evaluation Filed: 08/04/2023 10:00 AM Note Text: ANESTHESIOLOGY DAY OF SURGERY NOTE : 1960 Procedure Information Date/Time: 08/04/23 1050 Procedure: REVERSE TOTAL SHOULDER ARTHROPLASTY (Right: Shoulder) - General anesthesia / block Location: [place] [facility] Surgeons: Carolyn Jamison MD Estimated body mass index is 18.51 kg/m? as calculated from the following: Height as of 08/02/23: 166.4 cm (5' 5.51). Weight as of 08/02/23: 51.3 kg (113 lb). Most recent hematocrit and potassium results: Hematocrit 42.9 07/21/2023 Potassium 4.3 07/21/2023 Relevant Problems CARDIO (+) Essential (primary) hypertension GI (+) GERD (gastroesophageal reflux disease) NEURO-PSYCH (+) History of pulmonary embolus (PE) PULMONARY (+) Acute bronchitis with chronic obstructive pulmonary disease (COPD) (HCC) (+) Asthma (+) COPD with exacerbation (HCC) I - PHYSICAL EVALUATION AIRWAY Patient intubated: No. Tracheostomy tube not present Mallampati: II. TM distance: >3 FB. Neck ROM: full ROM without neurological symptoms. Mouth opening: adequate. Short neck: no. Thick neck: no DENTAL Dental findings: edentulous. Additional exam findings: no II - ANESTHESIA PLAN ASA Score: 3 Anesthetic Plan: general Airway type: ETT The patient is not a current smoker. NPO Status: adequate Anesthetic plan additional comments: Significant COPD with 24 hour O2 - METS <4 - NO BLOCK, will be admitted for pain medication post op HTN Bipolar . Beta Bradford Monitoring Plan Monitoring plan: standard ASA. Post Procedure Analgesic Plan Postoperative analgesic plan: multimodal analgesia and parenteral or oral opioids. Informed Consent Anesthetic risks, benefits, alternatives, personnel and consent discussed: yes. Patient / Responsible Constitution Party agrees to proceed: yes Patient / Surrogate agrees to blood products: Yes Significant changes in the patient condition since the History and Physical, not otherwise documented in primary service progress note: no. Potential Anesthesia issues that may suggest increased risk of complications or contraindication to planned procedure: none. Vitals Value Taken Time BP 130/69 08/04/23 0921 Pulse 92 08/04/23 0947 Resp 14 08/04/23 0947 Temp 36.6 ?C (97.9 ?F) 08/04/23 0908 SpO2 98 % 08/04/23 0947 Vitals shown include unvalidated device data. Facility-Administered Medications as of 08/04/2023 Medication Dose Route Frequency - lactated ringers iv infusion 5-30 mL/hr INTRAVENOUS CONTINUOUS - lidocaine 10 mg/mL (1 %) 1-2 mg injection (XYLOCAINE) 1-2 mg INTRADERMAL ONCE - [COMPLETED] ipratropium-albuterol 3 mL nebulizer solution (DUONEB) 3 mL INHALATION ONCE Outpatient Medications as of 08/04/2023 Medication Sig - melatonin 10 mg tab Take 1 tablet by mouth at bedtime as needed. - QUEtiapine (SEROQUEL) 400 mg tablet take 2 tablets by mouth once daily at bedtime - fluticasone-salmeterol (ADVAIR DISKUS) 250-50 mcg/dose inhaler Inhale 1 Puff as instructed twice daily. - albuterol (PROVENTIL) 2.5 mg /3 mL (0.083 %) nebulizer solution Use 3 mL via nebulizer every 4 hours as needed for wheezing/shortness of breath. Use over 5-15minutes. - pantoprazole DR (PROTONIX) 20 mg tablet Take 1 tablet by mouth daily before breakfast. Take on empty stomach, 1/2 hr before meal. - lamoTRIgine (LAMICTAL) 150 mg tablet Take [...] Take 1 mg by mouth twice daily. - OXYGEN, HOME THERAPY, 2 L/min by Nasal Cannula route continuous. - cholecalciferol, Vitamin D3, (VITAMIN D3) 1,250 mcg (50,000 unit) cap capsule Take 1 capsule by mouth one time a week. - mineral oil/hydrophil petrolatum (AQUAPHOR) oint Apply to affected area as needed. Apply liberally to area three times a day. (Patient not taking: Reported on 07/21/2023) I have interviewed and examined the patient. I have reviewed the medical record and/or the pre-anesthesia evaluation, pertinent labs, and test results. This contains updated information obtained within 48 hours of Surgery/Procedure. SIGNATURE: Yamil Steel MD PATIENT NAME: Albania Ramsey DATE: August 04, 2023 TIME: 9:50 AM CSN: [id number] [facility] BRIEF OP NOTon 08-04-2023 BRIEF OP NOT HNO ID: [id number] Author: Keo Tuttle MD Service: Orthopaedic Surgery Author Type: Resident Type: Brief Op Note Filed: 08/04/2023 12:14 PM Note Text: BRIEF OPERATIVE / PROCEDURE NOTE LOG ID: [id number] SURGERY/PROCEDURE DATE: 08/04/2023 INCISION/PROCEDURE START TIME: 11:15 AM INCISION CLOSE/PROCEDURE END TIME: 11:59 AM SURGEON(S)/PROCEDURALIST(S ) AND TEACHER PHYSICALLY IMPAIRED(S): Surgeon(s) and Role: * Carolyn Jamison MD - Primary * Keo Tuttle MD - Resident - Assisting Viscosity Worker: Wero Mendieta SA SURGERY/PROCEDURE(S): R rTSA ANESTHESIA: General FINDINGS: See OP note ESTIMATED BLOOD LOSS: 150 mls ANTIBIOTICS: Ancef SPECIMENS: None COMPLICATIONS: None PRE-OP/PRE-PROCEDURE DIAGNOSIS: R shoulder osteorthritis POST-OP/POST-PROCEDURE DIAGNOSIS: Same Post-Operative Plan: -management per Ortho -dressing/splints status: Mepilex x 7-10 days -Sling/swathe, No lifting greater than 5 lbs RUE, ok for passive ROM -pain control -DVT ppx: Early ambulation -post-operative antibiotics: Ancef x 2 ses -follow-up post-operative imaging -diet: clears liquid diet advance diet as tolerated to regular diet -OT for sling training -disposition: DC home POD #1 Darin Tuttle MD Orthopaedic Surgery 08/04/2023 12:12 PM [facility] HISTORY PHYSICALon HISTORY PHYSICAL HNO ID: [id number] Author: Carolyn Jamison MD Service: Orthopaedic Surgery Author Type: Physician Type: HANDP Filed: 08/04/2023 10:19 AM Note Text: UPDATED HISTORY AND PHYSICAL EXAMINATION SERVICE DATE: 08/04/2023 SERVICE TIME: 10:19 AM PHYSICAL EXAM MUST BE COMPLETED ON ADMISSION The History and Physical (completed in the past 30 days) has been reviewed and the patient has been examined. The contents accurately reflect the patient's condition with the following additions or revisions since the HANDP was completed. Examination indicates no changes. This HANDP can be found in the Electronic Medical Record dated 07/21/23. SIGNATURE: Carolyn Jamison MD PATIENT NAME: Albania Ramsey DATE: August 04, 2023 TIME: 10:19 AM [facility] OPERATIVE NOon 08-04-2023 OPERATIVE NO HNO ID: [id number] Author: Carolyn Jamison MD Service: Orthopaedic Surgery Author Type: Physician Type: Operative Report Filed: 08/04/2023 12:16 PM Note Text: OPERATIVE/PROCEDURE REPORT LOG ID: [id number] SURGERY/PROCEDURE DATE: 08/04/2023 INCISION/PROCEDURE START TIME: 11:15 AM INCISION CLOSE/PROCEDURE END TIME: 11:59 AM SURGEON(S)/PROCEDURALIST(S ) AND TEACHER PHYSICALLY IMPAIRED(S): Surgeon(s) and Role: * Carolyn Jamison MD - Primary * Keo Tuttle MD - Resident - Assisting Viscosity Worker: Wero Mendieta SA SURGERY/PROCEDURE(S): Right reverse total shoulder arthroplasty, open biceps tenodesis ANESTHESIA: General SURGERY/PROCEDURE DETAILS: Albania Ramsey is a 62 year old woman who presented with persistent pain and shoulder weakness due to massive rotator cuff tear. Based on the level of impairment, I offered reverse total shoulder arthroplasty for the purposes of pain relief and improved function of the shoulder. The risks, benefits, and alternatives to the procedure were discussed in detail in the office prior to scheduling surgery, and the patient expressed agreement and understanding with the plan. The patient was greeted in the preoperative holding area and identified by name and date of . Preoperative nerve block was not administered due to COPD. A preoperative meeting was held between the patient, myself, and other personnel that would be participating in surgery, and all were in agreement that right reverse total shoulder arthroplasty was the intended procedure. The right shoulder was marked as the operative site. The patient was taken to the operating room and transferred to the operating table in the supine position. General anesthesia was induced with endotracheal intubation. The patient was placed in the beach chair position with bilateral lower extremities padded and bilateral lower extremity sequential compression devices were applied. Intravenous antibiotic was given. The shoulder and upper extremity were prepped and draped in a sterile fashion. Time out was performed to confirm the correct patient, procedure, and operative site, and all were in agreement that right reverse shoulder arthroplasty was the correct procedure. I began by making a standard deltopectoral approach to the shoulder. The skin was incised sharply with a scalpel, and the subcutaneous tissues were dissected with Bovie electrocautery. Betadine was introduced into the surgical field for protection against Propionibaterium acnes infection. The deltopectoral interval was identified using the cephalic vein as a landmark, and the vein was taken medially with the pectoralis muscle. After releasing subdeltoid adhesions, the subacromial space was cleared bluntly and a Brown deltoid retractor was placed. I then identified the long head of biceps tendon within the bicipital groove. There was erythema and degenerative change with flattening of the tendon. Biceps tendon was secured with Fiberwire suture woven through the proximal tendon and the tendon was transected above this. The excess proximal biceps tendon was removed. The tendon was tenodesed to the upper border of pectoralis major using the Fiberwire suture. The rotator cuff was examined. The patient was found to have complete tearing of supraspinatus. The glenohumeral joint was exposed by tenotomizing the subscapularis tendon from the lesser tuberosity of the humerus using Bovie electrocautery. The proximal humerus was exposed after releasing soft tissues from around the humeral neck. Using a guide, the humeral head was cut in 30 degrees of retroversion. All remaining osteophytes and irregularities were then removed from the humeral neck with a rongeour. The axillary nerve was palpated and found to be intact. The glenoid was exposed next, with the humeral head retracted posteriorly using a Hohmann retractor. I exposed the coracoid process and removed the stump of the biceps tendon from the superior glenoid. The anterior labrum was removed and a Cobra retractor was placed in the subscapularis fossa. Another Hohmann retractor was then placed superiorly to expose the entire glenoid. The cartilage was found to be worn. I removed the remaining labrum and marked the center of the glenoid with the Bovie. Using sequential guides, the glenoid baseplate was placed and securely fixed using locking screws. I placed the glenosphere and tested the lainez taper mechanism, then secured this with a central screw. The area was then thoroughly irrigated and inspected for any remaining bone or soft tissue that might cause impingement, and this was removed. The humerus was then brought forward and exposed proximally with the Brown deltoid retractor and sharp Hohmann retractor. The canal was sequentially reamed. The metaphyseal reamer was then used to allow placement of the humerosocket. The canal was thoroughly irrigated. I then placed (more content not included)... Normal [facility] LUNG DIFFUSION CAPACITY (LAYLA O)on 08-02-2023 [facility] OXIMETRY WITH AMBULATIONon 1 10-02-2022 [facility] SPIROMETRY WITH DILATOR IF O BSTRUCTEDon 08-02-2023 DLCO (ml/min/mmHg) 12.58 ml/min/mmHg [facility] DLCO/VA (ml/min/mmHg/L) 2.98 ml/min/mmHg/L [facility] ERV BOX (L) 0.83 L [facility] OOO18-95% POST (L/S) 0.60 L/S [facility] WRA35-53% PRE (L/S) 0.40 L/S [facility] FEV1 PRE (L) 1.02 L [facility] FEV1/FVC POST (%) 42 % [facility] FEV1/FVC PRE (%) 47 % [facility] FEV1_POST (L) 1.16 L [facility] FRC Box (L) 4.61 L [facility] FVC POST (L) 2.77 L [facility] FVC PRE (L) 2.18 L [facility] IC BOX (L) 1.44 L [facility] PEF POST (L/S) 2.61 L/S [facility] PEF PRE (L/S) 2.03 L/S [facility] RV Box (L) 3.70 L [facility] RV/TLC Box (%) 62 % [facility] TLC Box (L) 5.92 L [facility] VA (L) 4.22 L [facility] VC (L) BOX 2.27 L [facility] Basic metabolic 2000 panelon 07-21-2023 Anion gap [Moles/Vol] 8 mmol/L Low 9-18 [facility] Comment on above: Order Comment: Speci men Type: BLOOD SPECIMENOrdering Facility: [facility] Address: [address] [place] [address] Performed By: #### 2 4321-2 ####[facility] LABORATORYCLIA [id number] [place] [address] [place] Calcium [Mass/Vol] 9.8 mg/dL Normal 8.5-10.2 [facility] Comment on above: Order Comment: Speci men Type: BLOOD SPECIMENOrdering Facility: [facility] Address: [address] [place] [address] Performed By: #### 2 4321-2 ####[facility]ORATORYCLIA [id number] [place] [address] [place] Chloride [Moles/Vol] 101 mmol/L Normal 97-105 [facility] Comment on above: Order Comment: Speci men Type: BLOOD SPECIMENOrdering Facility: [facility] Address: [address] [place] [address] Performed By: #### 2 4321-2 ####[facility]ORATORYCLIA [id number] [place] [address] [place] CO2 [Moles/Vol] 30 mmol/L Normal 22-30 [facility] Comment on above: Order Comment: Speci men Type: BLOOD SPECIMENOrdering Facility: [facility] Address: [address] [place] [address] Performed By: #### 2 4321-2 ####[facility]ATORYCLIA [id number] [place] [address] [place] Creatinine [Mass/Vol] 0.53 mg/dL Low 0.58-0.96 [facility] Comment on above: Order Comment: Speci men Type: BLOOD SPECIMENOrdering Facility: [facility] Address: [address] [place] [address] Performed By: #### 2 4321-2 ####[facility]ATORYCLIA [id number] [place] [address] [place] Creatinine and Glomerular filtration rate.predicted panel (S/P/Bld) 104 mL/min/1.73m??? Normal >=60 [facility] Comment on above: Order Comment: Elisha cummings Type: BLOOD SPECIMENOrdering Facility: [facility] Address: [address] [place] [address] Result Comment: Vijaya mated Glomerular Filtration Rate (eGFR) is calculated using the 2020 CKD-EPI creatinine equation. This equation utilizes serum creatinine, sex, and age as parameters. The creatinine assay has traceable calibration to isotope dilution-mass spectrometry. Refer to KDIGO guidelines for clinical interpretation. In patients with unstable renal function, e.g. those with acute kidney injury, the eGFR may not accurately reflect actual GFR. Performed By: #### 2 4321-2 ####[facility] LABORATORYCLIA [id number] [place] [address] [place] Glucose [Mass/Vol] 90 mg/dL Normal 74-99 [facility] Comment on above: Order Comment: Elisha cummings Type: BLOOD SPECIMENOrdering Facility: [facility] Address: [address] [place] [address] Result Comment: The [place] Diabetes Association (ADA) provides guidance for cutoff values for fasting glucose and random glucose. The ADA defines fasting as no caloric intake for at least 8 hours. Fasting plasma glucose results between 100 to 125 mg/dL indicate increased risk for diabetes (prediabetes). Fasting plasma glucose results greater than or equal to 126 mg/dL meet the criteria for diagnosis of diabetes. In the absence of unequivocal hyperglycemia, results should be confirmed by repeat testing. In a patient with classic symptoms of hyperglycemia or hyperglycemic crisis, random plasma glucose results greater than or equal to 200 mg/dL meet the criteria for diagnosis of diabetes. Reference: Standards of Medical Care in Diabetes 2016, [place] [employer]. Diabetes Care. 2016.39(Suppl 1). Performed By: #### 2 4321-2 ####[facility] LABORATORYCLIA [id number] [place] [address] [place] Potassium [Moles/Vol] 4.3 mmol/L Normal 3.7-5.1 [facility] Comment on above: Order Comment: Speci men Type: BLOOD SPECIMENOrdering Facility: [facility] Address: [address] [place] [address] Performed By: #### 2 4321-2 ####[facility] LABORATORYCLIA [id number] [address] STATES OF [facility] Sodium [Moles/Vol] 139 mmol/L Normal 136-144 [facility] Comment on above: Order Comment: Speci men Type: BLOOD SPECIMENOrdering Facility: [facility] Address: [address] [place] [address] Performed By: #### 2 4321-2 ####[facility] LABORATORYCLIA [id number] [address] [place] Urea nitrogen [Mass/Vol] 8 mg/dL Normal 7-21 [facility] Comment on above: Order Comment: Speci men Type: BLOOD SPECIMENOrdering Facility: [facility] Address: [address] [place] [address] Performed By: #### 2 4321-2 ####[facility] LABORATORYCLIA [id number] [place] [address] [place] Anion gap [Moles/Vol] 8 mmol/L Low 9 - 18 mmol/L [facility] Calcium [Mass/Vol] 9.8 mg/dL 8.5 - 10. 2 mg/dL [facility] Chloride [Moles/Vol] 101 mmol/L 97 - 10 5 mmol/L [facility] CO2 [Moles/Vol] 30 mmol/L 22 - 30 mmol/L [facility] Creatinine [Mass/Vol] 0.53 mg/dL Low 0.58 - 0.96 mg/dL [facility] Estimated Glomerular Filtration Rate 104 mL/min/1.73m >=60 mL/min/1.73m [facility] Glucose [Mass/Vol] 90 mg/dL 74 - 99 mg/dL [facility] Potassium [Moles/Vol] 4.3 mmol/L 3.7 - 5.1 mmol/L [facility] Sodium [Moles/Vol] 139 mmol/L 136 - 144 mmol/L [facility] Urea nitrogen [Mass/Vol] 8 mg/dL 7 - 21 mg/dL [facility] CBC panel Auto (Bld)on 07-21 Erythrocyte distribution width (RBC) [Ratio] 14.2 % Normal 11.5-15.0 [facility] Comment on above: Order Comment: Speci men Type: BLOOD SPECIMEN [facility] Address: [address] [place] [address] Performed By: #### 5 8410-2 #### [facility] CLIA [id number] [address] Hematocrit (Bld) [Volume fraction] 42.9 % Normal 36.0-46.0 [facility] Comment on above: Order Comment: Speci men Type: BLOOD SPECIMEN [facility] Address: [address] [place] [address] Performed By: #### 5 8410-2 #### [facility] CLIA [id number] [address] OF [facility] Hemoglobin (Bld) [Mass/Vol] 13.6 g/dL Normal 11.5-15.5 [facility] Comment on above: Order Comment: Speci men Type: BLOOD SPECIMEN [facility] Address: [address] [place] [address] Performed By: #### 5 8410-2 #### [facility] CLIA [id number] [address] STATES OF [facility] MCH (RBC) [Entitic mass] 27.9 pg Normal 26.0-34.0 [facility] Comment on above: Order Comment: Speci men Type: BLOOD SPECIMEN [facility] Address: [address] [place] [address] Performed By: #### 5 8410-2 #### [facility] CLIA [id number] [address] [place] MCHC (RBC) [Mass/Vol] 31.7 g/dL Normal 30.5-36.0 [facility] Comment on above: Order Comment: Speci men Type: BLOOD SPECIMEN [facility] Address: [address] [place], [place] [address] Performed By: #### 5 8410-2 #### [facility] CLIA [id number] [address] MCV (RBC) [Entitic vol] 88.1 fL Normal 80.0-100.0 [facility] Comment on above: Order Comment: Speci men Type: BLOOD SPECIMEN [facility] Address: [address] [place] [address] Performed By: #### 5 8410-2 #### [facility] CLIA [id number] [address] [place] Nucleated RBC (Bld) [#/Vol] 10*3/uL Normal <0.01 [facility] Comment on above: Order Comment: Speci men Type: BLOOD SPECIMEN [facility] Address: [address] [place] [address] Performed By: #### 5 8410-2 #### [facility] CLIA [id number] [address] [place] Platelet mean volume (Bld) [Entitic vol] 9.9 fL Normal 9.0-12.7 [facility] Comment on above: Order Comment: Speci men Type: BLOOD SPECIMEN [facility] Address: [address] [place] [address] Performed By: #### 5 8410-2 #### [facility] CLIA [id number] [address] [place] Platelets (Bld) [#/Vol] 282 10*3/uL Normal 150-400 [facility] Comment on above: Order Comment: Speci men Type: BLOOD SPECIMEN [facility] Address: [address] [place] [address] Performed By: #### 5 8410-2 #### [facility] CLIA [id number] [address] [place] RBC (Bld) [#/Vol] 4.87 10*6/uL Normal 3.90-5.20 [facility] Comment on above: Order Comment: Speci men Type: BLOOD SPECIMEN [facility] Address: [address] [place] [address] Performed By: #### 5 8410-2 #### [facility] CLIA [id number] [address] STATES OF [facility] WBC (Bld) [#/Vol] 8.35 10*3/uL Normal 3.70-11.00 [facility] Comment on above: Order Comment: Speci men Type: BLOOD SPECIMEN [facility] Address: [address] [place] [address] Performed By: #### 5 8410-2 #### [facility] CLIA [id number] [address] [place] [address] [place] Erythrocyte distribution width (RBC) [Ratio] 14.2 % 11.5 - 15.0 % [facility] Hematocrit (Bld) [Volume fraction] 42.9 % 36.0 - 46.0 % [facility] Hemoglobin (Bld) [Mass/Vol] 13.6 g/dL 11.5 - 15.5 g/dL [facility] MCH (RBC) [Entitic mass] 27.9 pg 26.0 - 34.0 pg [facility] MCHC (RBC) [Mass/Vol] 31.7 g/dL 30.5 - 36.0 g/dL [facility] MCV (RBC) [Entitic vol] 88.1 fL 80.0 - 100.0 fL [facility] Nucleated RBC (Bld) [#/Vol] <0.01 k/uL [facility] Platelet mean volume (Bld) [Entitic vol] 9.9 fL 9.0 - 12.7 fL [facility] Platelets (Bld) [#/Vol] 282 10*3/uL 150 - 400 k/uL [facility] RBC (Bld) [#/Vol] 4.87 10*6/uL 3.90 - 5.2 0 m/uL [facility] WBC (Bld) [#/Vol] 8.35 10*3/uL 3.70 - 11. 00 k/uL [facility] HISTORY PHYSICALon 3 HISTORY PHYSICAL HNO ID: [id number] Author: Shoulders, Kevin, 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 Service: ? Author Type: Nurse Practitioner Type: HANDP Filed: 07/21/2023 1:54 PM Note Text: HISTORY AND PHYSICAL EXAMINATION SERVICE DATE: 07/21/2023 [...] as needed; Advair Diskus as scheduled. Patient denies hospitalizations or pneumonia within 6 weeks. Essential (primary) hypertension Assessment: Taking prazosin History of pulmonary embolus (PE) Assessment: Patient reports history of PE 25 years ago. Chronic hypoxemic respiratory failure (HCC) Assessment: Followed by pulmonary-reduced on 2 L nasal cannula oxygen continuously. Today, PAT sats 100% on 2 L Lilly Activity Status Index: [...] request of Dr. Carolyn Jamison for routine HANDP. My final recommendation will be communicated back to the requesting physician by way of shared medical record or letter. The reason for this visit is to perform a comprehensive review of the patient's past medical history, assess their current health status and obtain any additional testing required based on anesthesia guidelines. We will also identify any potential anesthesia [...] at this time. After discussion with surgeon ruby (more content not included)... Normal [facility] No Panel InformationOrdered By: Ccf Provider on 05-13-2023 [facility] Lumbar spine 3 Viewson * * *Final Report* * * DATE OF EXAM: May 12 2023 10:49AM WOX 5228 - XR LUMBAR 3V AP/LAT/L5-S1 / PROCEDURE REASON: Tail bone pain * * * * Physician Interpretation * * * * Examination: XR LUMBAR 3V AP/LAT/L5-S1, XR SACRUM/COCCYX 3V AP/LAT History: Tail bone pain Technique: XR LUMBAR 3V AP/LAT/L5-S1, XR SACRUM/COCCYX 3V AP/LAT Comparison: 10/27/2010 and 12/18/2011 RESULT: 5 nonrib-bearing lumbar-type vertebrae. For numbering purposes, L4-5 is at the level of the iliac crest. Severe L5-S1 disc space narrowing with vacuum phenomenon. No fracture or focal bony abnormality. Mild degenerative change and spondylosis throughout. Views of the sacrum and coccyx show no fracture or focal bony abnormality. Mild degenerative change involving both hips. SI joints are intact. Severe degenerative disc disease at L5-S1 DIVISION OF RADIOLOGY Provider, [facility] - 05/13/2023 * * *Final Report* * * DATE OF EXAM: May 12 2023 10:49AM WOX 5228 - XR LUMBAR 3V AP/LAT/L5-S1 / PROCEDURE REASON: Tail bone pain * * * * Physician Interpretation * * * * Examination: XR LUMBAR 3V AP/LAT/L5-S1, XR SACRUM/COCCYX 3V AP/LAT History: Tail bone pain Technique: XR LUMBAR 3V AP/LAT/L5-S1, XR SACRUM/COCCYX 3V AP/LAT Comparison: 10/27/2010 and 12/18/2011 RESULT: 5 nonrib-bearing lumbar-type vertebrae. For numbering purposes, L4-5 is at the level of the iliac crest. Severe L5-S1 disc space narrowing with vacuum phenomenon. No fracture or focal bony abnormality. Mild degenerative change and spondylosis throughout. Views of the sacrum and coccyx show no fracture or focal bony abnormality. Mild degenerative change involving both hips. SI joints are intact. Severe degenerative disc disease at L5-S1 IMPRESSION IMPRESSION: SOME PROGRESSION OF DEGENERATIVE CHANGES Teacher Physically Impaired: QUYEN Transcribe Date/Time: May 13 2023 1:51P Dictated by : RAFIQ JENKINS MD This examination was interpreted and the report reviewed and electronically signed by: RAFIQ JENKINS MD on May 13 2023 1:57PM [facility] XR Sacrum and Coccyx 3 Views on 05-13-2023 * * *Final Report* * * DATE OF EXAM: May 12 2023 10:49AM WOX 5246 - XR SACRUM/COCCYX 3V AP/LAT / PROCEDURE REASON: Tail bone pain * * * * Physician Interpretation * * * * Examination: XR LUMBAR 3V AP/LAT/L5-S1, XR SACRUM/COCCYX 3V AP/LAT History: Tail bone pain Technique: XR LUMBAR 3V AP/LAT/L5-S1, XR SACRUM/COCCYX 3V AP/LAT Comparison: 10/27/2010 and 12/18/2011 RESULT: 5 nonrib-bearing lumbar-type vertebrae. For numbering purposes, L4-5 is at the level of the iliac crest. Severe L5-S1 disc space narrowing with vacuum phenomenon. No fracture or focal bony abnormality. Mild degenerative change and spondylosis throughout. Views of the sacrum and coccyx show no fracture or focal bony abnormality. Mild degenerative change involving both hips. SI joints are intact. Severe degenerative disc disease at L5-S1 DIVISION OF RADIOLOGY Provider, [facility] - 05/13/2023 * * *Final Report* * * DATE OF EXAM: May 12 2023 10:49AM WOX 5246 - XR SACRUM/COCCYX 3V AP/LAT / PROCEDURE REASON: Tail bone pain * * * * Physician Interpretation * * * * Examination: XR LUMBAR 3V AP/LAT/L5-S1, XR SACRUM/COCCYX 3V AP/LAT History: Tail bone pain Technique: XR LUMBAR 3V AP/LAT/L5-S1, XR SACRUM/COCCYX 3V AP/LAT Comparison: 10/27/2010 and 12/18/2011 RESULT: 5 nonrib-bearing lumbar-type vertebrae. For numbering purposes, L4-5 is at the level of the iliac crest. Severe L5-S1 disc space narrowing with vacuum phenomenon. No fracture or focal bony abnormality. Mild degenerative change and spondylosis throughout. Views of the sacrum and coccyx show no fracture or focal bony abnormality. Mild degenerative change involving both hips. SI joints are intact. Severe degenerative disc disease at L5-S1 IMPRESSION IMPRESSION: SOME PROGRESSION OF DEGENERATIVE CHANGES Teacher Physically Impaired: PSCB Transcribe Date/Time: May 13 2023 1:51P Dictated by : RAFIQ JENKINS MD This examination was interpreted and the report reviewed and electronically signed by: RAFIQ JENKINS MD on May 13 2023 1:57PM EST [facility] XR Shoulder - left 3 Viewson 05-13-2023 IMPRESSION: No acute osseous abnormality Teacher Physically Impaired: PSCB Transcribe Date/Time: May 13 2023 5:03P Dictated by : MILLY RUSSELL MD This examination was interpreted and the report reviewed and electronically signed by: MILLY RUSSELL MD on May 13 2023 5:04PM [facility] DIVISION OF RADIOLOGY * * *Final Report* * * DATE OF EXAM: May 12 2023 10:49AM WOX 5252 - XR SHLDR >/=3V AP/SHAW AP/OTHR LT / PROCEDURE REASON: Acute pain of left shoulder * * * * Physician Interpretation * * * * EXAMINATION: XR SHLDR >/=3V AP/SHAW AP/OTHR LT CLINICAL HISTORY: Left shoulder pain Technique: XR SHLDR >/=3V AP/SHAW AP/OTHR LT -- LEFT with 3 views on 3 images Comparison: None RESULT: No acute fracture or dislocation. Joint spaces are maintained. DIVISION OF RADIOLOGY Provider, [facility] - 05/13/2023 * * *Final Report* * * DATE OF EXAM: May 12 2023 10:49AM WOX 5252 - XR SHLDR >/=3V AP/SHAW AP/OTHR LT / PROCEDURE REASON: Acute pain of left shoulder * * * * Physician Interpretation * * * * EXAMINATION: XR SHLDR >/=3V AP/SHAW AP/OTHR LT CLINICAL HISTORY: Left shoulder pain Technique: XR SHLDR >/=3V AP/SHAW AP/OTHR LT -- LEFT with 3 views on 3 images Comparison: None RESULT: No acute fracture or dislocation. Joint spaces are maintained. IMPRESSION IMPRESSION: No acute osseous abnormality Teacher Physically Impaired: PSCB Transcribe Date/Time: May 13 2023 5:03P Dictated by : MILLY RUSSELL MD This examination was interpreted and the report reviewed and electronically signed by: MILLY RUSSELL MD on May 13 2023 5:04PM EST [facility] No Panel Informationon 05-12 Radiology Study observation (narrative) [facility] Absolute lymphocyte countOrd ered By: ED PROVIDER on 11-27-2022 Lymphocytes Auto (Unsp spec) [#/Vol] 1.69 10*3/uL 0.83-4.51 [facility] Basophil percentageOrdered B y: ED PROVIDER on 11-27-2022 Basophils/100 WBC (Bld) 0.3 % 0-1 [facility] Chloride [Moles/Vol] 105 mmol/L 98-107 [facility] Eosinophils/100 WBC (Bld) 3.0 % 0-5 [facility] Glucose [Mass/Vol] 115 mg/dL 74-106 [facility] Comment on above: Fasting Glucose resu lt from 100 to 125 mg/dL suggests IMPAIRED HOMEOSTASIS per A.D.A. criteria. Neutrophils (Bld) [#/Vol] 1.1 10*3/uL 2.0-7.7 [facility] Neutrophils/100 WBC (Bld) 32.1 % 47-70 [facility] Potassium [Moles/Vol] 4.1 mmol/L 3.5-5.1 [facility] Sodium [Moles/Vol] 140 mmol/L 136-145 [facility] WBC (Bld) [#/Vol] 3.4 10*3/uL 4.4-11.0 [facility] Blood erythrocytes count (nu mber/volume)Ordered By: ED PROVIDER on 11-27-2022 RBC (Bld) [#/Vol] 4.81 10*6/uL 4.2-5.4 [facility] Blood hemoglobin measurement (mass/volume)Ordered By: ED PROVIDER on 11-27-2022 Hemoglobin (Bld) [Mass/Vol] 14.0 g/dL 12.0-15.0 [facility] Blood lymphocytes/100 leukoc ytesOrdered By: ED PROVIDER on 11-27-2022 Lymphocytes/100 WBC (Bld) 50.1 % 19-41 [facility] Blood monocytes/100 leukocyt esOrdered By: ED PROVIDER on 11-27-2022 Monocytes/100 WBC (Bld) 14.2 % 0-10 [facility] Blood platelet mean volumeOr dered By: ED PROVIDER on 11-27-2022 Platelet mean volume (Bld) [Entitic vol] 10.1 fL 6.2-12.0 [facility] Determination of erythrocyte mean corpuscular volume (MCV)Ordered By: ED PROVIDER on 11-27-2022 MCV (RBC) [Entitic vol] 89.4 fL 81-99 [facility] Hematocrit Auto (Bld) [Volum e fraction]Ordered By: ED PROVIDER on 11-27-2022 Hematocrit (Bld) [Volume fraction] 43.0 % 37-47 [facility] Influenza virus A and B and SARS-CoV-2 (COVID-19) Ag panel - Upper respiratory specimOrdered By: Dr. Stewart on 11-27-2022 SARS-CoV-2 & FLU Antigen (Rapid) SARS-CoV-2 (COVID 19) [facility] SARS-CoV-2 & FLU Antigen (Rapid) Influenzae B [facility] Laboratory - Chemistry and C hemistry - challengeOrdered By: ED PROVIDER on 11-27-2022 CO2 [Moles/Vol] 28.0 mmol/L 21.0-32.0 [facility] Urea nitrogen/Creatinine [Mass ratio] 20.1 mg/mg 10-20 [facility] Laboratory - Hematology and Cell countsOrdered By: ED PROVIDER on 11-27-2022 Erythrocyte distribution width (RBC) [Entitic vol] 44.3 fL 35.1-43.9 [facility] Erythrocyte distribution width (RBC) [Ratio] 13.4 % 11.6-14.6 [facility] Immature granulocytes/100 WBC (Bld) 0.300 % 0.0-0.9 [facility] Comment on above: IG% - Immature Granu locytes (promyelocytes, myelocytes and metamyelocytes) > 1% indicates that a LEFT SHIFT is Present. MCH (RBC) [Entitic mass] 29.1 pg 27.0-32.0 [facility] Nucleated RBC/100 WBC (Bld) [Ratio] 0 % 0-5 [facility] MCHC Auto (RBC) [Mass/Vol]Or dered By: ED PROVIDER on 11-27-2022 MCHC (RBC) [Mass/Vol] 32.6 g/dL 32-36 [facility] No Panel InformationOrdered By: ED PROVIDER on 11-27-2022 Troponin I High Sensitivity 6 pg/mL 3.0-54.0 [facility] Comment on above: Please Note: New Nella t Units and Gender Specific Reference Ranges. For more information see Policy Stat Procedure [place] High Sensitivity Troponin (TNIH) and attachments. Estimated Creatinine Clearance Calc 97.84 ml/min [facility] Estimated GFR (MDRD) Amer 144 mL/min >60 [facility] Comment on above: GFR Calc Estimated GFR (MDRD) Non-Af Amer 119 mL/min >60 [facility] Comment on above: Non- GFR Calc Platelets bldOrdered By: ED PROVIDER on 11-27-2022 Platelets (Bld) [#/Vol] 169 10*3/uL 150-450 [facility] Serum or plasma calcium hayde urement (mass/volume)Ordered By: ED PROVIDER on 11-27-2022 Calcium [Mass/Vol] 8.8 mg/dL 8.5-10.1 [facility] Serum or plasma creatinine m easurement (mass/volume)Ordered By: ED PROVIDER on 11-27-2022 Creatinine [Mass/Vol] 0.55 mg/dL 0.55-1.02 [facility] Comment on above: The validity of the calculated GFR & GFRAA in patients over 70 years has not been determined. Clinical correlation is essential. Serum or plasma urea nitroge n measurement (mass/volume)Ordered By: ED PROVIDER on 11-27-2022 Urea nitrogen [Mass/Vol] 11 mg/dL 7-18 [facility] Thin prep Papanicolaou smear with manual screeningOrdered By: ED PROVIDER on 11-27-2022 Thin prep Papanicolaou smear with manual screening 7 5-15 [facility] HIPOLITO SCREENINGon 05-20-2022 [facility] HEP C AB IA W/CONF SCRNon HCV Ab Ql (S) Negative Negative [facility] HIV 1+2 Ab IA Qlon 2 HIV 1 and 2 Ab IA.rapid Nom [facility] HIV 1+2 Ab+HIV1 p24 Ag IA Ql Non-Reactive Nonreactive [facility] HIV Interpretation [facility] VITAMIN D 25 HYDROXYon 05-12 25-hydroxyvitamin D3 [Mass/Vol] 16.5 ng/mL Low 31.0 - 80.0 ng/mL [facility] CBC W Auto Differential pane l (Bld)on 05-11-2022 Abs Immature Gran <0.10 k/uL [facility] Basophils (Bld) [#/Vol] 0.06 10*3/uL <0.11 k/uL [facility] Basophils/100 WBC (Bld) 0.9 % [facility] Differential cell count method Nom (Bld) Auto [facility] Eosinophils (Bld) [#/Vol] 0.46 10*3/uL High <0.46 k/uL [facility] Eosinophils/100 WBC (Bld) 6.8 % [facility] Erythrocyte distribution width (RBC) [Ratio] 13.9 % 11.5 - 15.0 % [facility] Hematocrit (Bld) [Volume fraction] 44.8 % 36.0 - 46.0 % [facility] Hemoglobin (Bld) [Mass/Vol] 14.5 g/dL 11.5 - 15.5 g/dL [facility] Immature Gran % 0.1 % [facility] Lymphocytes (Bld) [#/Vol] 3.04 10*3/uL 1.00 - 4.00 k/uL [facility] Lymphocytes/100 WBC (Bld) 45.1 % [facility] MCH (RBC) [Entitic mass] 28.8 pg 26.0 - 34.0 pg [facility] MCHC (RBC) [Mass/Vol] 32.4 g/dL 30.5 - 36.0 g/dL [facility] MCV (RBC) [Entitic vol] 89.1 fL 80.0 - 100.0 fL [facility] Monocytes (Bld) [#/Vol] 0.76 10*3/uL <0.87 k/uL [facility] Monocytes/100 WBC (Bld) 11.3 % [facility] Neutrophils (Bld) [#/Vol] 2.41 10*3/uL 1.45 - 7.50 k/uL [facility] Neutrophils/100 WBC (Bld) 35.8 % [facility] Nucleated RBC (Bld) [#/Vol] <0.01 k/uL [facility] Nucleated RBC/100 WBC (Bld) [Ratio] 0.0 /100 WBC [facility] Platelet mean volume (Bld) [Entitic vol] 9.9 fL 9.0 - 12.7 fL [facility] Platelets (Bld) [#/Vol] 289 10*3/uL 150 - 400 k/uL [facility] RBC (Bld) [#/Vol] 5.03 10*6/uL 3.90 - 5.2 0 m/uL [facility] WBC (Bld) [#/Vol] 6.74 10*3/uL 3.70 - 11. 00 k/uL [facility] Comprehensive metabolic 2000 panelon 05-11-2022 Albumin [Mass/Vol] 4.7 g/dL 3.9 - 4.9 g/dL [facility] ALP [Catalytic activity/Vol] 84 U/L 34 - 123 U/L [facility] ALT [Catalytic activity/Vol] 9 U/L 7 - 38 U/L [facility] Anion gap [Moles/Vol] 10 mmol/L 9 - 18 mmol/L [facility] AST [Catalytic activity/Vol] 18 U/L 13 - 35 U/L [facility] Bilirubin [Mass/Vol] 0.2 mg/dL 0.2 - 1 .3 mg/dL [facility] Calcium [Mass/Vol] 9.8 mg/dL 8.5 - 10. 2 mg/dL [facility] Chloride [Moles/Vol] 102 mmol/L 97 - 10 5 mmol/L [facility] CO2 [Moles/Vol] 26 mmol/L 22 - 30 mmol/L [facility] Creatinine [Mass/Vol] 0.57 mg/dL Low 0.58 - 0.96 mg/dL [facility] Estimated Glomerular Filtration Rate 103 mL/min/1.73m >=60 mL/min/1.73m [facility] Glucose [Mass/Vol] 78 mg/dL 74 - 99 mg/dL [facility] Potassium [Moles/Vol] 4.4 mmol/L 3.7 - 5.1 mmol/L [facility] Protein [Mass/Vol] 7.2 g/dL 6.3 - 8.0 g/dL [facility] Sodium [Moles/Vol] 138 mmol/L 136 - 144 mmol/L [facility] Urea nitrogen [Mass/Vol] 9 mg/dL 7 - 21 mg/dL [facility] TSH BLDon 05-11-2022 TSH Qn 1.560 m[IU]/L 0.270 - 4.200 mIU/L [facility] VITAMIN B12 BLOODon 05-11-20 Cobalamin (Vitamin B12) [Mass/Vol] 457 pg/mL 232 - 1,245 pg/mL [facility] XR SHOULDER GENERAL 3V OR MO RE AP/TRUE AP/OTHER RIGHTon 01-08-2022 [facility] XR Chest PA and Lateralon IMPRESSION: No acute radiographic abnormality. Teacher Physically Impaired: PSCB Transcribe Date/Time: Oct 02 2020 10:56A Dictated by : RORO ROGERS MD This examination was interpreted and the report reviewed and electronically signed by: RORO ROGERS MD on Oct 02 2020 10:57AM [facility] DIVISION OF RADIOLOGY * * *Final Report* [...] acute osseous abnormality. DIVISION OF RADIOLOGY Provider, [facility] - 10/02/2020 * * *Final Report* [...] abnormality. IMPRESSION IMPRESSION: No acute radiographic abnormality. Teacher Physically Impaired: PSCB Transcribe Date/Time: Oct 02 2020 10:56A Dictated by : RORO ROGERS MD This examination was interpreted and the report reviewed and electronically signed by: RORO ROGERS MD on Oct 02 2020 10:57AM EST [facility] Radiology Study observation (narrative) [facility] XR Chest PA and LateralOrder ed By: [facility] Provider on 10-02-2020 [facility] Emergency Room Note on 03-23-2017 [facility] Note Normal [facility] Patient Summary Documentson 03-23-2017 Patient Summary Documents Normal [facility] XR FOOT COMPLETE RIGHTon XR FOOT COMPLETE [...] PM Sign Date: 03/23/2017 4:15:03 PM Normal [facility] Vital Signs Date Time Vital Sign Value Performing Clinician Facility 04-28-2025 22:04-0400 Body temperature 98.2 [degF] Dr. Teresa Aguilar MD Work Phone: [facility] 04-28-2025 22:04-0400 Diastolic blood pressure 69 mm[Hg] Dr. Teresa Aguilar MD Work Phone: [facility] 04-28-2025 22:04-0400 Heart rate 87 /min Dr. Teresa Aguilar MD Work Phone: [facility] 04-28-2025 22:04-0400 Respiratory rate 20 /min Dr. Teresa Aguilar MD Work Phone: [facility] 04-28-2025 22:04-0400 SaO2% (BldA) [Mass fraction] 98 % Dr. Teresa Aguilar MD Work Phone: [facility] 04-28-2025 22:04-0400 Systolic blood pressure 109 mm[Hg] Dr. Teresa Aguilar MD Work Phone: [facility] 04-28-2025 20:59-0400 Inhaled oxygen flow rate 2 L/min Dr. Teresa Aguilar MD Work Phone: [facility] 04-28-2025 20:54-0400 Body height 172.[address] Teresa Aguilar MD Work Phone: [facility] 04-28-2025 20:54-0400 Body mass index (BMI) [Ratio] 18.2 kg/m2 Dr. Teresa Aguilar MD Work Phone: [facility] 04-28-2025 20:54-0400 Body weight 54.[address] Teresa Aguilar MD Work Phone: [facility] 03-30-2025 09:39-0400 Body mass index (BMI) [Ratio] 17.85 kg/m2 Karin Click 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 Work Phone: [facility] 03-30-2025 09:39-0400 Body weight 51.71 kg Karin Click 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 Work Phone: [facility] 03-30-2025 09:39-0400 Diastolic blood pressure 72 mm[Hg] Karin Click 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 Work Phone: [facility] 03-30-2025 09:39-0400 Heart rate 100 /min Karin Click 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 Work Phone: [facility] 03-30-2025 09:39-0400 Respiratory rate 20 /min Karin Click 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 Work Phone: [facility] 03-30-2025 09:39-0400 SaO2% (BldA) [Mass fraction] 90 % Karin Click 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 Work Phone: [facility] 03-30-2025 09:39-0400 Systolic blood pressure 108 mm[Hg] Karin Hua LOOWARD SERVICE SUPERVISOR Work Phone: [facility] 03-14-2025 09:00-0400 Diastolic blood pressure 83 mm[Hg] Robin Golias PT Work Phone: [facility] 03-14-2025 09:00-0400 Heart rate 83 /min Robin Golias PT Work Phone: [facility] 03-14-2025 09:00-0400 Systolic blood pressure 172 mm[Hg] Robin Golias PT Work Phone: [facility] 02-27-2025 13:07-0400 Body mass index (BMI) [Ratio] 18.99 kg/m2 Teresa Aguilar MD Work Phone: [facility] 02-27-2025 13:07-0400 Body weight 55 kg Teresa Aguilar MD Work Phone: [facility] 02-27-2025 13:07-0400 Diastolic blood pressure 68 mm[Hg] Teresa Aguilar MD Work Phone: [facility] 02-27-2025 13:07-0400 Heart rate 103 /min Teresa Aguilar MD Work Phone: [facility] 02-27-2025 13:07-0400 Respiratory rate 16 /min Teresa Aguilar MD Work Phone: [facility] 02-27-2025 13:07-0400 SaO2% (BldA) [Mass fraction] 94 % Teresa Aguilar MD Work Phone: [facility] 02-27-2025 13:07-0400 Systolic blood pressure 105 mm[Hg] Teresa Aguilar MD Work Phone: [facility] 02-06-2025 11:35-0400 Body mass index (BMI) [Ratio] 18.17 kg/m2 Emeli Spivey PA-C Work Phone: [facility] 02-06-2025 11:35-0400 Body temperature 98.91 [degF] Emelisally Spivey PA-C Work Phone: [facility] 02-06-2025 11:35-0400 Body weight 52.62 kg Emeli Spivey PA-C Work Phone: [facility] 02-06-2025 11:35-0400 Diastolic blood pressure 72 mm[Hg] Emeli Spivey PA-C Work Phone: [facility] 02-06-2025 11:35-0400 Heart rate 110 /min Emeli Spivey PA-C Work Phone: [facility] 02-06-2025 11:35-0400 Respiratory rate 16 /min Emeli Spivey PA-C Work Phone: [facility] 02-06-2025 11:35-0400 SaO2% (BldA) [Mass fraction] 93 % Emelisally Spivey PA-C Work Phone: [facility] 02-06-2025 11:35-0400 Systolic blood pressure 101 mm[Hg] Emelisally Spivey PA-C Work Phone: [facility] 12-19-2024 14:33-0400 Body mass index (BMI) [Ratio] 18.76 kg/m2 Cora er PA-C Work Phone: [facility] 12-19-2024 14:33-0400 Body weight 54.34 kg Cora er PA-C Work Phone: [facility] 12-19-2024 14:33-0400 Diastolic blood pressure 77 mm[Hg] Cora Hernandeser PA-C Work Phone: [facility] 12-19-2024 14:33-0400 Heart rate 53 /min Cora Gil PA-C Work Phone: [facility] 12-19-2024 14:33-0400 SaO2% (BldA) [Mass fraction] 99 % Cora er PA-C Work Phone: [facility] 12-19-2024 14:33-0400 Systolic blood pressure 122 mm[Hg] Cora Gil PA-C Work Phone: [facility] 11-22-2024 14:10-0400 Body mass index (BMI) [Ratio] 19.06 kg/m2 Nga Tannhof 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 Work Phone: [facility] 11-22-2024 14:10-0400 Body weight 55.2 kg Nga Tannhof 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 Work Phone: [facility] 11-22-2024 14:10-0400 Diastolic blood pressure 80 mm[Hg] Nga Tannhof 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 Work Phone: [facility] 11-22-2024 14:10-0400 Heart rate 107 /min Nga Tannhof 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 Work Phone: [facility] 11-22-2024 14:10-0400 Respiratory rate 16 /min Nga Tannhof 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 Work Phone: [facility] 11-22-2024 14:10-0400 SaO2% (BldA) [Mass fraction] 93 % Nga Tannhof 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 Work Phone: [facility] 11-22-2024 14:10-0400 Systolic blood pressure 110 mm[Hg] Nga Tannhof 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 Work Phone: [facility] 09-07-2024 19:24-0500 Diastolic Blood Pressure Non-Invasive 67 mm[Hg] JOE CLARK MD [facility] 09-07-2024 19:24-0500 Heart rate 75 /min JOE CLARK MD [facility] 09-07-2024 19:24-0500 Respiratory rate 16 /min JOE CLARK MD [facility] 09-07-2024 19:24-0500 Systolic Blood Pressure Non-Invasive 104 mm[Hg] JOE CLARK MD [facility] 09-07-2024 16:20-0500 Body temperature 97.16 [degF] JOE CLARK MD [facility] 09-07-2024 16:20-0500 Body weight 53.3 kg JOE CLARK MD [facility] 09-07-2024 16:20-0500 Diastolic Blood Pressure Non-Invasive 65 mm[Hg] JOE CLARK MD [facility] 09-07-2024 16:20-0500 Heart rate 78 /min JOE CLARK MD [facility] 09-07-2024 16:20-0500 Respiratory rate 16 /min JOE CLARK MD [facility] 09-07-2024 16:20-0500 Systolic Blood Pressure Non-Invasive 98 mm[Hg] JOE CLARK MD [facility] 06-09-2024 08:46-0400 Body mass index (BMI) [Ratio] 18.27 kg/m2 Nga Ferrer 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 Work Phone: [facility] 06-09-2024 08:46-0400 Body weight 52.9 kg Nga Ferrer 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 Work Phone: [facility] 06-09-2024 08:46-0400 Diastolic blood pressure 82 mm[Hg] Nga Ferrer 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 Work Phone: [facility] 06-09-2024 08:46-0400 Heart rate 95 /min Nga Ferrer 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 Work Phone: [facility] 06-09-2024 08:46-0400 Respiratory rate 20 /min Nga Ferrer 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 Work Phone: [facility] 06-09-2024 08:46-0400 SaO2% (BldA) [Mass fraction] 100 % Nga Ferrer 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 Work Phone: [facility] 06-09-2024 08:46-0400 Systolic blood pressure 127 mm[Hg] Nga Ferrer 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 Work Phone: [facility] 06-05-2024 08:55-0400 Body mass index (BMI) [Ratio] 17.54 kg/m2 Pulm Wstr Work Phone: [facility] 06-05-2024 08:55-0400 Body weight 50.8 kg Pulm Wstr Work Phone: [facility] 05-17-2024 14:33-0400 Body height 170.2 cm AYESHA KENNEDY MD [facility] 05-17-2024 14:33-0400 Body temperature 97.52 [degF] AYESHA KENNEDY MD [facility] 05-17-2024 14:33-0400 Body weight 52.3 kg AYESHA KENNEDY MD [facility] 05-17-2024 14:33-0400 Diastolic Blood Pressure Non-Invasive 64 mm[Hg] AYESHA KENNEDY MD [facility] 05-17-2024 14:33-0400 Heart rate 105 /min AYESHA KENNEDY MD [facility] 05-17-2024 14:33-0400 Respiratory rate 20 /min AYESHA KENNEDY MD [facility] 05-17-2024 14:33-0400 Systolic Blood Pressure Non-Invasive 131 mm[Hg] AYESHA KENNEDY MD [facility] 04-25-2024 16:09-0400 Body mass index (BMI) [Ratio] 18.06 kg/m2 Teresa Aguilar MD Work Phone: [facility] 04-25-2024 16:09-0400 Body weight 52.3 kg Teresa Aguilar MD Work Phone: [facility] 04-25-2024 16:09-0400 Diastolic blood pressure 74 mm[Hg] Teresa Aguilar MD Work Phone: [facility] 04-25-2024 16:09-0400 Heart rate 96 /min Teresa Aguilar MD Work Phone: [facility] 04-25-2024 16:09-0400 Respiratory rate 20 /min Teresa Aguilar MD Work Phone: [facility] 04-25-2024 16:09-0400 SaO2% (BldA) [Mass fraction] 93 % Teresa Aguilar MD Work Phone: [facility] Comment on above: 93-94 sitting on RA no O2 04-25-2024 16:09-0400 Systolic blood pressure 112 mm[Hg] Teresa Aguilar MD Work Phone: [facility] 03-29-2024 14:47-0400 Body mass index (BMI) [Ratio] 17.6 kg/m2 Betzy Flavia PA-C Work Phone: [facility] 03-29-2024 14:47-0400 Body weight 50.98 kg Betzy Flavia PA-C Work Phone: [facility] 03-29-2024 14:47-0400 Diastolic blood pressure 72 mm[Hg] Betzy Flavia PA-C Work Phone: [facility] 03-29-2024 14:47-0400 Heart rate 103 /min Betzy Flavia PA-C Work Phone: [facility] 03-29-2024 14:47-0400 SaO2% (BldA) [Mass fraction] 89 % Betzy Flavia PA-C Work Phone: [facility] Comment on above: on room air 03-29-2024 14:47-0400 Systolic blood pressure 96 mm[Hg] Betzy Flavia PA-C Work Phone: [facility] 02-21-2024 08:48-0400 Body mass index (BMI) [Ratio] 17.39 kg/m2 Kiley Harris 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 Work Phone: [facility] 02-21-2024 08:48-0400 Body weight 50.35 kg Kiley Harris 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 Work Phone: [facility] 12-30-2023 11:58-0400 Body height 170.[address] MARYJANE GALLOWAY MD [facility] 12-30-2023 11:58-0400 Body temperature 97.16 [degF] DR MARYJANE GALLOWAY MD [facility] 12-30-2023 11:58-0400 Body weight [address] MARYJANE GALLOWAY MD [facility] 12-30-2023 11:58-0400 Diastolic Blood Pressure Non-Invasive 60 mm[Hg] DR MARYJANE GALLOWAY MD [facility] 12-30-2023 11:58-0400 Heart rate 114 /min DR MARYJANE GALLOWAY MD [facility] 12-30-2023 11:58-0400 Respiratory rate 22 /min DR MARYJANE GALLOWAY MD [facility] 12-30-2023 11:58-0400 Systolic Blood Pressure Non-Invasive 90 mm[Hg] DR MARYJANE GALLOWAY MD [facility] 12-01-2023 08:46-0400 Body weight 50.35 kg gNa Ferrer 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 Work Phone: [facility] 12-01-2023 08:46-0400 Diastolic blood pressure 60 mm[Hg] Nga Ferrer 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 Work Phone: [facility] 12-01-2023 08:46-0400 Heart rate 106 /min Nga Ochoahof 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 Work Phone: [facility] 12-01-2023 08:46-0400 Respiratory rate 20 /min Nga Ochoahof 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 Work Phone: [facility] 12-01-2023 08:46-0400 SaO2% (BldA) [Mass fraction] 90 % Nga Ochoahof 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 Work Phone: [facility] 12-01-2023 08:46-0400 Systolic blood pressure 90 mm[Hg] Ngajames Ochoahof 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 Work Phone: [facility] 09-28-2023 18:01-0500 Diastolic Blood Pressure Non-Invasive 70 mm[Hg] JOCELIN FROMMELT DO [facility] 09-28-2023 18:01-0500 Heart rate 99 /min JOCELIN FROMMELT DO [facility] 09-28-2023 18:01-0500 Systolic Blood Pressure Non-Invasive 120 mm[Hg] JOCELIN FROMMELT DO [facility] 09-28-2023 15:46-0500 Heart rate 106 /min JOCELIN FROMMELT DO [facility] 09-28-2023 15:46-0500 Respiratory rate 20 /min JOCELIN FROMMELT DO [facility] 09-28-2023 15:45-0500 Heart rate 106 /min JOCELIN FROMMELT DO [facility] 09-28-2023 15:45-0500 Respiratory rate 18 /min JOCELIN FROMMELT DO [facility] 09-28-2023 15:40-0500 Respiratory rate 18 /min JOCELIN FROMMELT DO [facility] 09-28-2023 15:11-0500 Body height 172.7 cm JOCELIN FROMASHOKT DO [facility] 09-28-2023 15:11-0500 Body temperature 98.24 [degF] JOCELIN FROMMELT DO [facility] 09-28-2023 15:11-0500 Body weight 52.3 kg JOCELIN FROMMELT DO [facility] 09-28-2023 15:11-0500 Diastolic Blood Pressure Non-Invasive 62 mm[Hg] JOCELIN FROMMELT DO [facility] 09-28-2023 15:11-0500 Systolic Blood Pressure Non-Invasive 122 mm[Hg] JOCELIN GARCIAT DO [facility] 08-18-2023 09:00-0500 Diastolic blood pressure 61 mm[Hg] Robin Golias PT Work Phone: [facility] 08-18-2023 09:00-0500 Heart rate 102 /min Robin Golias PT Work Phone: [facility] 08-18-2023 09:00-0500 Systolic blood pressure 99 mm[Hg] Robin Golias PT Work Phone: [facility] 08-02-2023 08:35-0500 Body height 166.4 cm Betzy Flavia PA-C Work Phone: [facility] 08-02-2023 08:35-0500 Body weight 51.26 kg Betzy Flavia PA-C Work Phone: [facility] 08-02-2023 08:35-0500 Heart rate 103 /min Betzy Flavia PA-C Work Phone: [facility] 08-02-2023 08:35-0500 Respiratory rate 16 /min Betzy Flavia PA-C Work Phone: [facility] 08-02-2023 08:35-0500 SaO2% (BldA) [Mass fraction] 91 % Betzy Alejandro PA-C Work Phone: [facility] 08-02-2023 08:32-0500 Body height 166.4 cm Pulm Wstr Work Phone: [facility] 08-02-2023 08:32-0500 Body weight 51.26 kg Pulm Wstr Work Phone: [facility] 08-02-2023 08:32-0500 Heart rate 103 /min Pulm Wstr Work Phone: [facility] 08-02-2023 08:32-0500 Respiratory rate 16 /min Pulm Wstr Work Phone: [facility] 08-02-2023 08:32-0500 SaO2% (BldA) [Mass fraction] 91 % Pulm Wstr Work Phone: [facility] 07-21-2023 13:10-0500 Body height 172.7 cm Pst 1 [facility] 07-21-2023 13:10-0500 Body temperature 96.8 [degF] Pst 1 [facility] 07-21-2023 13:10-0500 Body weight 51.71 kg Pst 1 [facility] 07-21-2023 13:10-0500 Diastolic blood pressure 78 mm[Hg] Pst 1 [facility] 07-21-2023 13:10-0500 Heart rate 95 /min Pst 1 [facility] 07-21-2023 13:10-0500 Respiratory rate 18 /min Pst [address] [place] [address] 07-21-2023 13:10-0500 SaO2% (BldA) [Mass fraction] 100 % Pst 1 [facility] 07-21-2023 13:10-0500 Systolic blood pressure 121 mm[Hg] Pst 1 [facility] 06-26-2023 11:25-0400 Respiratory rate 22 /min JOE CLARK MD [facility] 06-26-2023 11:20-0400 Body temperature 98.6 [degF] JOE CLARK MD [facility] 06-26-2023 11:20-0400 Diastolic Blood Pressure Non-Invasive 82 1 JOE CLAKR MD [facility] 06-26-2023 11:20-0400 Heart rate 99 /min JOE CLARK MD [facility] 06-26-2023 11:20-0400 Respiratory rate 22 /min JOE CLARK MD [facility] 06-26-2023 11:20-0400 Systolic Blood Pressure Non-Invasive 127 1 JOE CLARK MD [facility] 06-18-2023 09:52-0400 Body height 170.2 cm Adolph Taylor MD Work Phone: [facility] 06-18-2023 09:52-0400 Body weight 50.53 kg Adolph Taylor MD Work Phone: [facility] 06-18-2023 09:52-0400 Heart rate 94 /min Adolph Taylor MD Work Phone: [facility] 06-18-2023 09:52-0400 SaO2% (BldA) [Mass fraction] 95 % Adolph Taylor MD Work Phone: [facility] 05-31-2023 10:33-0400 Body weight 51.71 kg Roro Loo MD Work Phone: [facility] 05-31-2023 10:33-0400 Heart rate 88 /min Roro Loo MD Work Phone: [facility] 05-31-2023 10:33-0400 Respiratory rate 20 /min Roro Loo MD Work Phone: [facility] 05-31-2023 10:33-0400 SaO2% (BldA) [Mass fraction] 93 % Roro Loo MD Work Phone: [facility] 05-21-2023 12:47-0400 Body temperature 97.39 [degF] Josh Hermes 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 Work Phone: [facility] 05-21-2023 12:47-0400 Body weight 51.89 kg Josh Hermes 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 Work Phone: [facility] 05-21-2023 12:47-0400 Diastolic blood pressure 75 mm[Hg] Josh Hermes 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 Work Phone: [facility] 05-21-2023 12:47-0400 Heart rate 105 /min Josh Hermes 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 Work Phone: [facility] 05-21-2023 12:47-0400 Respiratory rate 24 /min Josh Hermes 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 Work Phone: [facility] 05-21-2023 12:47-0400 SaO2% (BldA) [Mass fraction] 96 % Josh Hermes 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 Work Phone: [facility] 05-21-2023 12:47-0400 Systolic blood pressure 122 mm[Hg] Josh Hermes 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 Work Phone: [facility] 05-12-2023 09:52-0400 Body weight 51.26 kg Ngajames Ochoahof 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 Work Phone: [facility] 05-12-2023 09:52-0400 Diastolic blood pressure 60 mm[Hg] Nga Tannhof 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 Work Phone: [facility] 05-12-2023 09:52-0400 Heart rate 86 /min Nga Tannhof 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 Work Phone: [facility] 05-12-2023 09:52-0400 Respiratory rate 16 /min Nga Tannhof 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 Work Phone: [facility] 05-12-2023 09:52-0400 SaO2% (BldA) [Mass fraction] 93 % Nga Tannhof 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 Work Phone: [facility] 05-12-2023 09:52-0400 Systolic blood pressure 90 mm[Hg] 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 Work Phone: [facility] 04-15-2023 10:48-0400 Body temperature 98.24 [degF] JEANETH ELISE MD [facility] 04-15-2023 10:48-0400 Diastolic Blood Pressure Non-Invasive 67 1 JEANETH ELISE MD [facility] 04-15-2023 10:48-0400 Heart rate 99 /min JEANETH ELISE MD [facility] 04-15-2023 10:48-0400 Respiratory rate 20 /min JEANETH ELISE MD [facility] 04-15-2023 10:48-0400 Systolic Blood Pressure Non-Invasive 107 1 JEANETH ELISE MD [facility] 11-27-2022 12:47-0400 Diastolic blood pressure 88 mm[Hg] [facility] 11-27-2022 12:47-0400 Heart rate 72 /min [facility] 11-27-2022 12:47-0400 Respiratory rate 16 /min [facility] 11-27-2022 12:47-0400 SaO2% (BldA) [Mass fraction] 95 % [facility] 11-27-2022 12:47-0400 Systolic blood pressure 139 mm[Hg] [facility] 11-27-2022 08:58-0400 Body temperature 97.5 [degF] [facility] 11-27-2022 08:54-0400 Body height 172.72 cm [facility] 11-27-2022 08:54-0400 Body mass index (BMI) [Ratio] 19.8 kg/m2 [facility] 11-27-2022 08:54-0400 Body weight 59.2 kg [facility] 11-27-2022 08:35-0400 Body temperature 97.5 [degF] Cora Hernandeser PA-C Work Phone: [facility] 11-27-2022 08:35-0400 Body weight 54.61 kg Cora Hernandeser PA-C Work Phone: [facility] 11-27-2022 08:35-0400 Diastolic blood pressure 78 mm[Hg] Cora Hernandeser PA-C Work Phone: [facility] 11-27-2022 08:35-0400 Heart rate 96 /min Cora Hernandeser PA-C Work Phone: [facility] 11-27-2022 08:35-0400 Respiratory rate 20 /min Cora Hernandeser PA-C Work Phone: [facility] 11-27-2022 08:35-0400 SaO2% (BldA) [Mass fraction] 96 % Cora Hernandeser PA-C Work Phone: [facility] 11-27-2022 08:35-0400 Systolic blood pressure 121 mm[Hg] Cora Hernandeser PA-C Work Phone: [facility] 08-28-2022 10:47-0500 Body height 170.2 cm RAMÓN RAMOSMoni DO [facility] 08-28-2022 10:47-0500 Body temperature 98.78 [degF] RAMÓN RAMOSMoni DO [facility] 08-28-2022 10:47-0500 Body weight 56.8 kg RAMÓN RAMOSMoni DO [facility] 08-28-2022 10:47-0500 Diastolic Blood Pressure Non-Invasive 88 1 RAMÓN Melboss DO [facility] 08-28-2022 10:47-0500 Heart rate 90 /min RAMÓN REICHFIELD DO [facility] 08-28-2022 10:47-0500 Respiratory rate 18 /min RAMÓN REICHFIELD DO [facility] 08-28-2022 10:47-0500 Systolic Blood Pressure Non-Invasive 115 1 RAMÓN REICHFIELD DO [facility] 08-02-2022 15:10-0500 Body temperature 98.42 [degF] ALISSA POWERS MD [facility] 08-02-2022 15:10-0500 Diastolic Blood Pressure Non-Invasive 63 1 ALISSA POWERS MD [facility] 08-02-2022 15:10-0500 Heart rate 106 /min ALISSA POWERS MD [facility] 08-02-2022 15:10-0500 Respiratory rate 16 /min ALISSA POWERS MD [facility] 08-02-2022 15:10-0500 Systolic Blood Pressure Non-Invasive 112 1 ALISSA POWERS MD [facility] 06-23-2022 12:00-0400 Diastolic blood pressure 84 mm[Hg] ALISSA POWERS MD [facility] 06-23-2022 12:00-0400 Heart rate 90 /min ALISSA POWERS MD [facility] 06-23-2022 12:00-0400 Respiratory rate 22 /min ALISSA POWERS MD [facility] 06-23-2022 12:00-0400 Systolic blood pressure 112 mm[Hg] ALISSA POWERS MD [facility] 06-23-2022 11:30-0400 Diastolic blood pressure 76 mm[Hg] ALISSA POWERS MD [facility] 06-23-2022 11:30-0400 Heart rate 94 /min ALISSA POWERS MD [facility] 06-23-2022 11:30-0400 Respiratory rate 24 /min ALISSA POWERS MD [facility] 06-23-2022 11:30-0400 Systolic blood pressure 108 mm[Hg] ALISSA POWERS MD [facility] 06-23-2022 11:00-0400 Diastolic blood pressure 73 mm[Hg] ALISSA POWERS MD [facility] 06-23-2022 11:00-0400 Heart rate 87 /min ALISSA POWERS MD [facility] 06-23-2022 11:00-0400 Respiratory rate 18 /min ALISSA POWERS MD [facility] 06-23-2022 11:00-0400 Systolic blood pressure 127 mm[Hg] ALISSA POWERS MD [facility] 06-23-2022 10:30-0400 Body height 172.7 cm ALISSA POWERS MD [facility] 06-23-2022 10:30-0400 Body temperature 98.06 [degF] ALISSA POWERS MD [facility] 06-23-2022 10:30-0400 Body weight 59.1 kg ALISSA POWERS MD [facility] 06-23-2022 10:30-0400 Heart rate 88 /min ALISSA POWERS MD [facility] 06-10-2022 10:48-0400 Body weight 58.97 kg Nga Tannhof 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 Work Phone: [facility] 06-10-2022 10:48-0400 Diastolic blood pressure 88 mm[Hg] Nga Tannhof 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 Work Phone: [facility] 06-10-2022 10:48-0400 Heart rate 80 /min Nga Tannhof 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 Work Phone: [facility] 06-10-2022 10:48-0400 Respiratory rate 20 /min Nga Tannhof 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 Work Phone: [facility] 06-10-2022 10:48-0400 Systolic blood pressure 120 mm[Hg] Nga Tannhof 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 Work Phone: [facility] 05-11-2022 13:59-0400 Body weight 60.06 kg Teresa Aguilar MD Work Phone: [facility] 05-11-2022 13:59-0400 Diastolic blood pressure 70 mm[Hg] Teresa Aguilar MD Work Phone: [facility] 05-11-2022 13:59-0400 Heart rate 78 /min Teresa Aguilar MD Work Phone: [facility] 05-11-2022 13:59-0400 Respiratory rate 18 /min Teresa Aguilar MD Work Phone: [facility] 05-11-2022 13:59-0400 Systolic blood pressure 118 mm[Hg] Teresa Aguilar MD Work Phone: [facility] 05-05-2022 17:11-0400 Body height 170.2 cm TYLER CARRASCO MD [facility] 05-05-2022 17:11-0400 Body temperature 97.88 [degF] TYLER CARRASCO MD [facility] 05-05-2022 17:11-0400 Body weight 63.6 kg TYLER CARRASCO MD [facility] 05-05-2022 17:11-0400 Diastolic blood pressure 71 mm[Hg] TYLER CARRASCO MD [facility] 05-05-2022 17:11-0400 Heart rate 111 /min TYLER CARRASCO MD [facility] 05-05-2022 17:11-0400 Respiratory rate 20 /min TYLER CARRASCO MD [facility] 05-05-2022 17:11-0400 Systolic blood pressure 120 mm[Hg] TYLER CARRASCO MD [facility] 01-29-2022 17:05-0400 Body temperature 98.42 [degF] JEANETH ELISE MD [facility] 01-29-2022 17:05-0400 Body weight 65.5 kg JEANETH ELISE MD [facility] 01-29-2022 17:05-0400 Diastolic blood pressure 69 mm[Hg] JEANETH ELISE MD [facility] 01-29-2022 17:05-0400 Heart rate 96 /min JEANETH ELISE MD [facility] 01-29-2022 17:05-0400 Respiratory rate 16 /min JEANETH ELISE MD [facility] 01-29-2022 17:05-0400 Systolic blood pressure 119 mm[Hg] JEANETH ELISE MD [facility] Encounters Encounter Date Encounter Type Care Provider Facility Start: 04-28-2025 End: 04-28-2025 Emergency department patient visit Dr. Teresa Aguilar MD Work Phone: -Emergency Department Work Phone: Start: 04-02-2025 End: 04-02-2025 Orders Only Kiley Harris 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 Work Phone: Pulmonary Medicine Comment on above: Encounter for screen ing for lung cancer (Primary Dx); Tobacco use current Start: 03-30-2025 End: 03-30-2025 Office outpatient visit 25 minutes Karin Lloyd APRN.WARD SERVICE SUPERVISOR Work Phone: Pulmonary Medicine Comment on above: COPD, severe (HCC) ( Primary Dx); Chronic hypoxemic respiratory failure (HCC); Current smoker; Multiple lung nodules Start: 03-30-2025 End: 03-30-2025 ambulatory KARIN LLOYD Facility:[facility] Start: 03-19-2025 End: 03-19-2025 ambulatory Maia Beasley PT [facility] Comment on above: Falls (Primary Dx); Balance problem Start: 03-14-2025 End: 03-14-2025 OT/PT/Speech Visit Robin Louis PT Work Phone: [facility] Comment on above: Balance problem (Monique azra Dx); Falls; Balance disorder Start: 03-06-2025 End: 03-06-2025 Follow-up encounter Teresa Aguilar MD Work Phone: [facility] [place] Comment on above: Results Start: 03-05-2025 End: 03-05-2025 Refill Teresa Aguilar MD Work Phone: [facility] [place] Comment on above: Refill Request Start: 03-01-2025 End: 03-01-2025 Telephone encounter Teresa Aguilar MD Work Phone: [facility] [place] Comment on above: Medication Request Start: 03-01-2025 ambulatory CORA Tilley y:[facility] Start: 03-01-2025 End: 03-01-2025 Subsequent hospital visit by physician Alexandra [facility] [place] (I-Stat/1.5t) Radiology Comment on above: Falls [R29.6] Start: 02-27-2025 End: 02-27-2025 Office outpatient visit 25 minutes Teresa Aguilar MD Work Phone: [facility] [place] Comment on above: Falls (Primary Dx); Need for vaccination; Bipolar I disorder, most recent episode (or current) depressed, severe, specified as with psychotic behavior (HCC); Chronic obstructive pulmonary disease, unspecified COPD type (HCC); Tobacco use disorder; Cognitive changes; Elevated glucose; Balance disorder Start: 02-27-2025 End: 02-27-2025 Refill Teresa Aguilar MD Work Phone: Family [facility] [place] Comment on above: Refill Request Start: 02-22-2025 End: 02-22-2025 Telephone encounter Teresa Aguilar MD Work Phone: [facility] [place] Comment on above: Patient Update Start: 02-06-2025 End: 02-16-2025 Telephone encounter Emeli Spivey PA-C Work Phone: [facility] [place] Comment on above: Orders Patient Update Start: 02-06-2025 End: 02-06-2025 Patient encounter procedure Emeli Spivey PA-C Work Phone: [facility] [place] Comment on above: Postural hypotension (Primary Dx); Benign paroxysmal positional vertigo, unspecified laterality; Chronic hypoxemic respiratory failure (HCC); Oral candidiasis Start: 02-06-2025 End: 02-06-2025 ambulatory Teresa Aguilar MD Work Phone: [facility] [place] Comment on above: Dizziness Start: 01-29-2025 End: 01-29-2025 Refill Teresa Aguilar MD Work Phone: [facility] [place] Comment on above: Refill Request Start: 01-16-2025 End: 01-18-2025 Telephone encounter Teresa Aguilar MD Work Phone: [facility] [place] Comment on above: Forms (Mobile Adul t Day Care) Start: 01-04-2025 End: 01-11-2025 Telephone encounter Teresa Aguilar MD Work Phone: [facility] [place] Comment on above: Forms ([employer]/area agency on aging) Start: 01-02-2025 End: 01-02-2025 Refill Teresa Aguilar MD Work Phone: [facility] [place] Comment on above: Refill Request Start: 12-21-2024 End: 12-29-2024 Follow-up encounter Cora Gil PA-C Work Phone: Neurology Start: 12-19-2024 End: 12-19-2024 ambulatory CORA GIL Facility:[facility] Start: 12-19-2024 End: 12-19-2024 Patient encounter procedure Cora Gil PA-C Work Phone: Neurology Comment on above: Cognitive impairment , mild, so stated (Primary Dx); Falls; Cognitive changes; Spinal stenosis of cervical region; Acute low back pain, unspecified back pain laterality, unspecified whether sciatica present; Spinal stenosis of lumbar region, unspecified whether neurogenic claudication present; Neuropathy Start: 12-19-2024 End: 12-19-2024 ambulatory CORA GIL Facility:[facility] Start: 12-18-2024 End: 12-18-2024 Refill Teresa Aguilar MD Work Phone: [facility] [place] Start: 11-23-2024 End: 11-23-2024 Telephone encounter [...] immunization Start: 11-22-2024 End: 11-22-2024 ambulatory NGA FERRER Facility:[facility] Start: 11-06-2024 End: 11-06-2024 Refill Teresa Aguilar MD Work Phone: [facility] [place] Comment on above: Refill Request Start: 10-17-2024 End: 11-09-2024 Telephone encounter Teresa Aguilar MD Work Phone: [facility] [place] Comment on above: letter Start: 10-13-2024 End: 10-19-2024 Refill Teresa Aguilar MD Work Phone: [facility] [place] Comment on above: Refill Request Start: 10-09-2024 End: 10-09-2024 Telephone encounter Teresa Aguilar MD Work Phone: [facility] [place] Comment on above: Forms (Mobile Adul t Daycare ) Start: 09-18-2024 End: 09-18-2024 Refill Teresa Aguilar MD Work Phone: [facility] [place] Comment on above: Refill Request Start: 09-07-2024 End: 09-07-2024 Emergency department patient visit JOE CLARK MD [facility] Start: 08-25-2024 End: 08-25-2024 Refill Teresa Aguilar MD Work Phone: [facility] [place] Comment on above: Refill Request Start: 08-07-2024 End: 08-07-2024 Refill Teresa Aguilar MD Work Phone: [facility] [place] Comment on above: Refill Request Start: 07-28-2024 End: 07-28-2024 Refill Teresa Aguilar MD Work Phone: [facility] [place] Comment on above: Refill Request Start: 07-27-2024 End: 08-04-2024 Telephone encounter Kiley Harris APRN.CNP Work Phone: Pulmonary Medicine Comment on above: Results Start: 07-17-2024 End: 07-17-2024 Telephone encounter Teresa Aguilar MD Work Phone: [facility] [place] Comment on above: Forms (Mobile Cent er) Start: 07-11-2024 End: 07-11-2024 ambulatory [facility] Facility:[facility] Start: 07-11-2024 End: 07-11-2024 Subsequent hospital visit by physician Ct [facility] (I-Stat) Work Phone: Cat Scan Comment on above: Lung nodules [R91.8] Start: 06-14-2024 End: 06-14-2024 Telephone encounter Nga Ferrer APRN.WARD SERVICE SUPERVISOR Work Phone: [facility] [place] Comment on above: Results (Labs ) Start: 06-09-2024 End: 06-09-2024 Patient encounter procedure Nga Ferrer APRN.WARD SERVICE SUPERVISOR Work Phone: [facility] [place] Comment on above: Falls (Primary Dx); Cognitive changes; Cognitive impairment, mild, so stated; COPD, severe (HCC); Requires oxygen therapy; Encounter for screening examination for other mental health and behavioral disorders; Screening for depression Start: 06-09-2024 End: 06-09-2024 ambulatory NGA DAWSONE ANIKA Facility:[facility] Start: 06-06-2024 End: 06-06-2024 Refill Teresa Aguilar MD Work Phone: [facility] [place] Comment on above: Refill Request Start: 06-05-2024 End: 06-05-2024 Telephone encounter Nga Ferrer APRN.WARD SERVICE SUPERVISOR Work Phone: [facility] [place] Comment on above: Orders Start: 06-05-2024 End: 06-05-2024 ambulatory Pulm Lab [facility] Work Phone: [facility] Comment on above: Spirometry Start: 06-05-2024 End: 06-05-2024 Patient encounter procedure Pulm Lab [facility] Work Phone: PULM LAB PENDING S[facility] TO [facility] Start: 05-31-2024 End: 06-05-2024 ambulatory Teresa Aguilar MD Work Phone: Internal Medicine [facility] Start: 05-30-2024 End: 05-30-2024 Telephone encounter Josh Butterfield 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 Work Phone: [facility] [place] Comment on above: Results Start: 05-19-2024 End: 06-27-2024 Telephone encounter Kiley Harris APRN.WARD SERVICE SUPERVISOR Work Phone: [facility] Pulmonary Comment on above: Patient Update Start: 05-18-2024 End: 05-30-2024 Telephone encounter Teresa Aguilar MD Work Phone: [facility] [place] Comment on above: Orders Start: 05-17-2024 End: 05-17-2024 Emergency department patient visit AYESHA KENNEDY MD [facility] Start: 05-17-2024 End: 05-17-2024 Well adult monitoring check done AYESHA KENNEDY MD [facility] Start: 05-08-2024 End: 05-08-2024 Telephone encounter Teresa Aguilar MD Work Phone: [facility] [place] Comment on above: Patient Update Start: 04-27-2024 Telephone encounter Teresa carpenter MD Work Phone: [facility] [place] Comment on above: Forms Start: 04-25-2024 End: 04-25-2024 ambulatory TERESA AGUILAR Facility:[facility] Start: 04-25-2024 End: 04-25-2024 Patient encounter procedure Teresa Aguilar MD Work Phone: [facility] [place] Comment on above: COPD, severe (HCC) ( Primary Dx); Oxygen dependent; Asthma, unspecified asthma severity, unspecified whether complicated, unspecified whether persistent Start: 04-18-2024 Refill Teresa moy MD Work Phone: [facility] [place] Comment on above: Refill Request [facility] ( [place]) Start: 04-13-2024 Telephone encounter Kiley guadalupe 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 Work Phone: Pulmonary Medicine Comment on above: Patient Update Start: 04-04-2024 ambulatory TERESA Diaz ity:[facility] Start: 04-04-2024 End: 04-04-2024 Subsequent hospital visit by physician Gi/[facility] Work Phone: Radiology Comment on above: Status [...] Results Start: 03-13-2024 Telephone encounter Kiley guadalupe 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 Work Phone: General Surgery Comment on above: Medication Problem Start: 03-06-2024 Telephone encounter Kiley guadalupe 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 Work Phone: Pulmonary Medicine Comment on above: Results Start: 03-01-2024 End: 03-01-2024 [facility] Work Phone: Cat Scan Comment on above: 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] Start: 02-21-2024 End: 02-21-2024 Patient encounter procedure Kiley Harris APRN.WARD SERVICE SUPERVISOR Work Phone: Pulmonary Medicine Comment on above: Multiple lung nodule s (Primary Dx); Cigarette smoker; Persistent cough for 3 weeks or longer Start: 02-21-2024 End: 02-21-2024 Subsequent hospital visit by physician [place] [facility] (I-Stat) Work Phone: Cat Scan Comment on above: Lung nodules [R91.8] Start: 02-18-2024 Telephone encounter Carolyn Jamison MD Work Phone: Orthopaedics Comment on above: Rx Refills Start: 02-18-2024 End: 02-18-2024 Patient encounter procedure Carolyn Jamison MD Work Phone: Orthopedics Comment on above: 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); Right shoulder pain, unspecified chronicity Start: 02-18-2024 ambulatory TERESA AGUILAR [facility] ity:[facility] Start: 02-18-2024 End: 02-18-2024 Subsequent hospital visit by physician Radio [facility] Work Phone: Radiology Comment on above: Chronic right should er pain [M25.511, G89.29] Start: 01-26-2024 Refill Teresa moy MD Work Phone: [facility] [place] Comment on above: Refill Request Start: 01-13-2024 Telephone encounter Carolyn Jamisno MD Work Phone: Orthopaedics Comment on above: Appointment Start: 01-11-2024 ambulatory Lennie Khan MA [facility] [place] Comment on above: PHMA/Care Gap Outrea ch (Colon Cancer screening) Start: 01-03-2024 Orders Only Carolyn Jamison MD Work Phone: Orthopedics Comment on above: Chronic right should er pain (Primary Dx) Start: 12-30-2023 End: 12-30-2023 Emergency department patient visit DR MARYJANE GALLOWAY MD [facility] Start: 12-29-2023 Telephone encounter Carolyn Jamison MD Work Phone: Orthopaedics Comment on above: Patient Update Start: 12-08-2023 Refill Teresa moy MD Work Phone: [facility] [place] Comment on above: Refill Request Start: 12-01-2023 Telephone encounter Nga Reagan rachel 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 Work Phone: [facility] [place] Comment on above: Results (Xray ) Start: 12-01-2023 End: 12-01-2023 Subsequent hospital visit by physician José Miguel [facility] [place] Work Phone: Radiology Comment on above: COPD with exacerbati on (HCC) [J44.1] Start: 12-01-2023 End: 12-01-2023 Patient encounter procedure Nga Ferrer 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 Work Phone: [facility] [place] Comment on above: COPD with exacerbati on (HCC) (Primary Dx) Start: 11-29-2023 ambulatory Teresa moy MD Work Phone: [facility] [place] Comment on above: productive cough; Fe iván Start: 11-26-2023 End: 11-26-2023 Patient encounter procedure Perla Kennedy PA-C Work Phone: Orthopedics Comment on above: 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) Start: 11-26-2023 ambulatory TERESA AGUILAR Facil it:[facility] Start: 11-26-2023 End: 11-26-2023 Subsequent hospital visit by physician Radio [facility] Abhijit Salcedo Work Phone: Radiology Comment on above: Chronic right should er pain [M25.511, G89.29] Start: 11-13-2023 Refill Josh VAZQUEZ RN.WARD SERVICE SUPERVISOR Work Phone: [facility] Comment on above: Refill Request Start: 11-09-2023 Telephone encounter Kiley guadalupe 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 Work Phone: Pulmonary Medicine Comment on above: Patient Update Start: 10-25-2023 End: 10-25-2023 Patient encounter procedure Carolyn Jamison MD Work Phone: Orthopedics Comment on above: Acute pain of right shoulder (Primary Dx); Status post reverse total replacement of right shoulder Start: 10-25-2023 ambulatory TERESA AGUILAR Facil ity:[facility] Start: 10-25-2023 End: 10-25-2023 Subsequent hospital visit by physician [facility] Work Phone: Radiology Comment on above: Chronic right should er pain [M25.511, G89.29] Start: 10-21-2023 Orders Only Carolyn Jamison MD Work Phone: Orthopedics Comment on above: Chronic right should er pain (Primary Dx) fall-shoulder pain Start: 10-15-2023 End: 10-15-2023 Patient encounter procedure Perla Kennedy PA-C Work Phone: Orthopedics Comment on above: 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) Start: 10-15-2023 ambulatory TERESA Diaz ity:[facility] Start: 10-15-2023 End: 10-15-2023 [facility] Work Phone: Radiology Comment on above: Chronic right should er pain [M25.511, G89.29] Start: 10-14-2023 Telephone encounter Teresa carpenter MD Work Phone: [facility] Comment on above: Forms (For [employer] re: disability) Start: 10-11-2023 End: 10-11-2023 Subsequent hospital visit by physician José Miguel [facility] [place] Work Phone: Radiology Comment on above: Left hip pain [M25.5 52] Start: 09-28-2023 End: 09-28-2023 Emergency department patient visit JOCELIN SERGE [facility] Start: 08-27-2023 ambulatory TERESA AGUILAR Facil ity:[facility] Start: 08-27-2023 End: 08-27-2023 Subsequent hospital visit by physician [facility] Work Phone: Radiology Comment on above: Chronic right should er pain [M25.511, G89.29] Start: 08-26-2023 Telephone encounter Kiley guadalupe 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 Work Phone: [facility] Pulmonary Comment on above: Appointment Start: 08-23-2023 Orders Only Carolyn Jamison MD Work Phone: Orthopedics Comment on above: Chronic right should er pain (Primary Dx) Start: 08-18-2023 Telephone encounter Adolph diamond MD Work Phone: Pain Management Comment on above: Sink Cutter - O ther (Injection: 08/31/2023) Start: 08-18-2023 End: 08-18-2023 ambulatory Robin Golias PT Work Phone: [facility] Comment on above: Status [...] Start: 08-02-2023 End: 08-02-2023 ambulatory Pulm Lab [facility] Work Phone: PULM LAB PENDING SALE TO [facility] Comment on above: Spirometry Start: 08-02-2023 End: 08-02-2023 Patient encounter procedure Pulm Lab [facility] Work Phone: [facility] Start: 07-21-2023 End: 07-22-2023 ambulatory TERESA Cabrera [facility] Facility:[facility] Start: 07-21-2023 End: 07-21-2023 Admission to [address] Start: 07-21-2023 End: 07-21-2023 ambulatory [facility] 1 Pre Surgical Testing Comment on above: [...] End: 07-21-2023 Patient encounter status Pst 1 [place] Gavin wilkes Work Phone: Start: 07-21-2023 Encounter for other preprocedural examination CAROLYN JAMISON [facility] Start: 06-26-2023 End: 06-26-2023 Emergency department patient visit JOE CLARK MD [facility] Start: 06-25-2023 Telephone encounter Carolyn Jamison MD Work Phone: Orthopedics Comment on above: Appointment (Post-op physical therapy) Start: 06-24-2023 Orders Only Adolph Taylor MD Work Phone: Pain Management Comment on above: SI joint arthritis ( Primary Dx) Start: 06-23-2023 ambulatory Teresa moy MD Work Phone: Internal Medicine [facility] Start: 06-18-2023 End: 06-18-2023 Patient encounter procedure [...] Appointment Start: 06-11-2023 Telephone encounter Kiley guadalupe 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 Work Phone: [facility] Pulmonary Comment on above: Results Start: 06-11-2023 End: 06-11-2023 Patient encounter procedure Carolyn Jamison MD Work Phone: Orthopedics Comment on above: 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) Start: 05-31-2023 Telephone encounter Roro Loo MD Work Phone: Pulmonary Medicine Comment on above: Orders Start: 05-31-2023 End: 05-31-2023 Patient encounter procedure Roro Loo MD Work Phone: Pulmonary Medicine Comment on above: Chronic obstructive pulmonary disease, unspecified COPD type (HCC) (Primary Dx); Cigarette smoker; Chronic hypoxemic respiratory failure (HCC) Start: 05-21-2023 Telephone encounter Josh nguyen 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 Work Phone: Family [facility] [place] Comment on above: Orders (New O2 order -for continuous O2) Start: 05-21-2023 End: 05-21-2023 Office outpatient visit 25 minutes Josh Butterfield 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 Work Phone: [facility] [place] Comment on above: Chronic obstructive pulmonary disease, unspecified COPD type (HCC) (Primary Dx); Oxygen dependent Start: 05-13-2023 Telephone encounter Nga ramos APRN.WARD SERVICE SUPERVISOR Work Phone: Family [facility] [place] Comment on above: Results (Xray Lumbar /Coccyx) Start: 05-12-2023 End: 05-12-2023 Patient encounter procedure Nga Ferrer APRN.WARD SERVICE SUPERVISOR Work Phone: Family [facility] [place] Comment on above: Hospital discharge f ollow-up (Primary Dx); Fall, initial encounter; Acute pain of left shoulder; Tail bone pain Start: 05-12-2023 End: 05-12-2023 Subsequent hospital visit by physician José Miguel [facility] Work Phone: Radiology Comment on above: Tail bone pain [M53. 3] Start: 04-22-2023 Telephone encounter Chester appiah MD Work Phone: Orthopaedics Comment on above: Patient Question Start: 04-15-2023 ambulatory Teresa moy MD Work Phone: Family [facility] [place] Comment on above: Head Injury Start: 04-15-2023 End: 04-15-2023 Emergency department patient visit JEANETH ELISE MD [facility] Start: 12-24-2022 Orders Only Chester Freire MD Work Phone: Orthopaedics Comment on above: Right shoulder pain, unspecified chronicity (Primary Dx) Start: 12-21-2022 Telephone encounter Teresa carpenter MD Work Phone: [facility] Comment on above: Patient Update Start: 11-27-2022 End: 11-27-2022 [facility] Start: 11-27-2022 End: 11-27-2022 Patient encounter procedure Cora Gil PA-C Work Phone: Neurology Comment on above: Chest pain, unspecif ied type (Primary Dx); Forgetfulness; Shortness of breath; Dizziness Start: 11-13-2022 Telephone encounter Nga ramos APRN.WARD SERVICE SUPERVISOR Work Phone: [facility] Comment on above: Results (Labs ) Start: 11-04-2022 ambulatory Teresa moy MD Work Phone: [facility] Comment on above: Dizziness Start: 09-10-2022 Refill Teresa moy MD Work Phone: [facility] Comment on above: Refill Request Medication Problem Start: 08-28-2022 End: 08-28-2022 Emergency department patient visit RAMÓN MARSH [facility] Start: 08-02-2022 End: 08-02-2022 Emergency department patient visit ALISSA POWERS MD [facility] Start: 06-23-2022 End: 06-23-2022 Emergency department patient visit ALISSA POWERS MD [facility] Start: 06-10-2022 End: 06-10-2022 Patient encounter procedure Nga Ferrer APRN.WARD SERVICE SUPERVISOR Work Phone: [facility] Comment on above: Fall, initial encoun ter (Primary Dx); Balance problem; Acute midline low back pain without sciatica Start: 06-08-2022 ambulatory Teresa moy MD Work Phone: [facility] Comment on above: Fall Start: 05-20-2022 Documentation procedure Mammog echo Coordinator [facility] Start: 05-20-2022 Letter encounter Mammography Coordinator [facility] Department Start: 05-20-2022 End: 05-20-2022 Subsequent hospital visit by physician Screen Mammo [facility] Mammogram Comment on above: Encounter for screen ing mammogram for malignant neoplasm of breast [Z12.31] Start: 05-11-2022 End: 05-11-2022 Patient encounter procedure Teresa Aguilar MD Work Phone: [facility] Comment on above: Sprain of ligament o f right ankle, initial encounter (Primary Dx); Encounter for screening mammogram for malignant neoplasm of breast; Screening for HIV (human immunodeficiency virus); Frequent falls; Vitamin D deficiency; Weight loss; Need for hepatitis C screening test Start: 05-05-2022 End: 05-05-2022 Emergency department patient visit TYLER CARRASCO MD [facility] Start: 03-11-2022 ambulatory Teresa moy MD Work Phone: Internal Medicine [facility] [place] Start: 01-29-2022 End: 01-29-2022 Emergency department patient visit JEANETH ELISE MD [facility] Start: 01-08-2022 End: 01-08-2022 Subsequent hospital visit by physician José Miguel [facility] [place] Work Phone: Radiology Comment on above: Chronic right should er pain [M25.511, G89.29] Start: 10-02-2020 End: 10-02-2020 Subsequent hospital visit by physician José Miguel [facility] [place] Work Phone: Radiology Comment on above: Cough [R05] Start: 03-23-2017 End: 03-23-2017 Emergency department patient visit ALISSA POWERS Facility:[facility] Procedures Date Procedure Procedure Detail Performing Clinician Start: 04-28-[address] Teresa Aguilar MD Work Phone: Start: 04-28-2025 Plain chest X-ray Dr. Liza Aguilar MD Work Phone: Start: 03-01-2025 MRI 3D BRAIN QUANT Dominique jonna Jeffery PA-C Work Phone: Start: 03-01-2025 Mri brain brain stem w/o contrast material Cora Jeffery PA-C Work Phone: Start: 11-22-2024 [employer] COVI D-19 VACCINE AGE 12+ YR (COMIRNATY) Nga Ferrer 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 Work Phone: Start: 06-09-2024 Adult depression screening assessment Nga Ferrer 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 Work Phone: Start: 06-05-2024 Noninvasive ear/puls e oximetry multiple deter Nga Ferrer 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 Work Phone: Start: 04-04-2024 Arthrocentesis aspir &/inj major jt/bursa w/us Perla Surya PA-C Work Phone: Start: 03-01-2024 Ct upper extremity w /o contrast material Perlajuliano Kennedy PA-C Work Phone: Start: 02-18-2024 Radex shoulder compl ete minimum 2 views Perla Surya PA-C Work Phone: Start: 12-01-2023 Radiologic exam ches t 2 views Nga Ferrer 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 Work Phone: Start: 11-26-2023 Radex shoulder compl ete minimum 2 views Perla Surya PA-C Work Phone: Start: 10-25-2023 Radex shoulder compl ete minimum 2 views Perla Surya PA-C Work Phone: Start: 10-15-2023 Radex shoulder compl ete minimum 2 views Perla Surya PA-C Work Phone: Start: 10-11-2023 Radex hip unilateral with pelvis 2-3 views Nga Ferrer APRN.WARD SERVICE SUPERVISOR Work Phone: Start: 08-27-2023 Radex shoulder compl ete minimum 2 views Perlajuliano Kennedy PA-C Work Phone: Start: 08-18-2023 H/O: artificial joint Presence of right artificial shoulder joint Robin Golias PT Work Phone: Start: 08-02-2023 INFLUENZA VACCINE, A GE 6 MO - 64 YR, QUADRIVALENT (AFLURIA, FLULAVAL, FLUZONE) Betzy Alejandro PA-C Work Phone: Start: 08-02-2023 Noninvasive ear/puls e oximetry multiple deter Roro Loo MD Work Phone: Start: 08-02-2023 Brncdilat rspse spmt ry pre&post-brncdilat admn Roro Loo MD Work Phone: Start: 05-12-2023 Radex spine lumbosac ral 2/3 views Nga Ferrer APRN.WARD SERVICE SUPERVISOR Work Phone: Start: 11-27-2022 Plain chest X-ray [...] 1996 panel - S kristal or Plasma Roro Loo MD Work Phone: Abscess of back (disorder) JEANETH ELISE MD Comment on above: History of Appendectomy JEANETH EDWARDS MD Gallbladder structur e (body structure) JEANETH ELISE MD Herniated structure (morphologic abnormality) JEANETH ELISE MD Hysterectomy JEANETH EDWARDS MD SARS-CoV-2 & FLU Ant igen (Rapid) Plan of Treatment Date Care Activity Detail Author Start: 02-28-2028 [facility] Start: 12-20-2027 [facility] Start: 06-09-2027 [facility] Start: 07-21-2026 [facility] Start: 03-23-2026 Urine microalbumin profile [facility] Start: 02-27-2026 Annual PCP Team Family [facility] lizette Disease Visit Annual PCP Team Chronic Disease Visit [facility] Start: 02-06-2026 Annual PCP Team [address] Justice lizette Disease Visit Annual PCP Team Chronic Disease Visit [facility] Start: 02-06-2026 BP Controlled (<130/80) BP Controlle d (<130/80) [facility] Start: 12-19-2025 BP Controlled (<130/80) BP Controlle d (<130/80) [facility] Start: 11-22-2025 Annual PCP Team Family [address] Justice lizette Disease Visit Annual PCP Team Chronic Disease Visit [facility] Start: 11-12-2025 DIABETES SCREEN DIABETES SCREEN [facility] Start: 11-12-2025 Diabetes Screening Diabetes Screenin g [facility] Start: 07-11-2025 Screening for malign ant neoplasm of lung Lung Cancer Screening [facility] Start: 07-03-2025 End: 07-03-2025 Patient encounter procedure 07/03/2025 9:00 AM EDT Office Visit Pulmonary Medicine [address] [place] [address] Karin Lloyd APRN.WARD SERVICE SUPERVISOR [address] [place] [address] 3MO OV Pulmonary Medicine Comment on above: 3MO OV Start: 06-20-2025 End: 06-20-2025 Patient encounter procedure 06/20/2025 9:00 AM EDT Office Visit Neurology [address] [place], [place] [id number] Rose Leiva MD [address] [place], [place] [id number] new patient consult Neurology Comment on above: new patient consult Start: 06-09-2025 [address] PCP Team [address] Justice lizette Disease Visit Annual PCP Team Chronic Disease Visit [facility] Start: 06-09-2025 Anxiety Screening Anxiety Screening [facility] Start: 06-09-2025 Depression Screening Depression Scre ening [facility] Start: 05-25-2025 Covid-19 Vaccine ( season) Covid-19 Vaccine () [facility] Start: 05-11-2025 DIABETES SCREEN DIABETES SCREEN [facility] Start: 05-07-2025 End: 05-07-2025 OT/PT/Speech Visit 05/07/2025 8:00 AM EDT OT/PT/Speech Visit [facility] [address] [place] [address] Naomie Burch, MARINE METEOROLOGIST [address] [place] [address] Dx: Falls [R29.6]; Balance disorder [R26.89] [facility] Comment on above: Dx: Falls [R29.6]; B alance disorder [R26.89] Start: 04-30-2025 End: 04-30-2025 OT/PT/Speech Visit 04/30/2025 8:00 AM EDT OT/PT/Speech Visit [facility] [address] [place] [address] Naomie Burch, MARINE METEOROLOGIST [address] [place] [address] Dx: Falls [R29.6]; Balance disorder [R26.89] [facility] Comment on above: Dx: Falls [R29.6]; B alance disorder [R26.89] Start: 04-28-2025 [facility] Start: 04-28-2025 End: 04-28-2025 [facility] Start: 04-25-[address]25 [address] P[address] Team Family [address] Justice lizette Disease Visit Annual PCP Team Chronic Disease Visit [facility] Start: 04-25-2025 BP Controlled (<130/80) BP Controlle d (<130/80) [facility] Start: 04-23-2025 End: 04-23-2025 OT/PT/Speech Visit 04/23/2025 9:30 AM EDT OT/PT/Speech Visit [facility] [address] [place], [place] [id number] Naomie Burch, MARINE METEOROLOGIST [address] [place] [address] Dx: Falls [R29.6]; Balance disorder [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.89] [facility] Comment on above: Dx: Falls [R29.6]; B alance disorder [R26.89] Start: 04-16-2025 End: 04-16-2025 OT/PT/Speech Visit 04/16/2025 11:00 AM EDT OT/PT/Speech Visit [facility] [address] [place] [address] Maia Beasley, PT Dx: Falls [R29.6]; Balance disorder [R26.89] [facility] Comment on above: Dx: Falls [R29.6]; B alance disorder [R26.89] Start: 04-09-2025 End: 04-09-2025 OT/PT/Speech Visit 04/09/2025 9:30 AM EDT OT/PT/Speech Visit [facility] [address] [place] [address] Naomie Burch, MARINE METEOROLOGIST [address] [place] [address] Dx: Falls [R29.6]; Balance disorder [R26.89] [facility] Comment on above: Dx: Falls [R29.6]; B alance disorder [R26.89] Start: 04-02-2025 End: 04-02-2025 OT/PT/Speech Visit 04/02/2025 8:45 AM EDT OT/PT/Speech Visit [facility] [address] [place] [address] Naomie Burch, MARINE METEOROLOGIST [address] [place] [address] Dx: Falls [R29.6]; Balance disorder [R26.89] [facility] Comment on above: Dx: Falls [R29.6]; B alance disorder [R26.89] Start: 03-30-2025 End: 03-30-2025 Patient encounter procedure 03/30/2025 10:00 AM EDT Office Visit Pulmonary Medicine [address] [place] [address] Karin Lloyd APRN.WARD SERVICE SUPERVISOR [address] [place] [address] copd Pulmonary Medicine Comment on above: copd Start: 03-29-2025 BP Controlled (<130/80) BP Controlle d (<130/80) [facility] Start: 03-27-2025 End: 03-27-2025 OT/PT/Speech Visit 03/27/2025 8:00 AM EDT OT/PT/Speech Visit [facility] [address] [place] [address] Naomie Burch, MARINE METEOROLOGIST [address] [place] [address] Dx: Falls [R29.6]; Balance disorder [R26.89] [facility] Comment on above: Dx: Falls [R29.6]; B alance disorder [R26.89] Start: 03-19-2025 End: 03-19-2025 OT/PT/Speech Visit 03/19/2025 8:45 AM EDT OT/PT/Speech Visit [facility] [address] [place] [address] Maia Beasley, PT Dx: Falls [R29.6]; Balance disorder [R26.89] [facility] Comment on above: Dx: Falls [R29.6]; B alance disorder [R26.89] Start: 03-14-2025 End: 03-14-2025 OT/PT/Speech Visit 03/14/2025 9:00 AM EDT OT/PT/Speech Visit [facility] [address] [place] [address] Robin Louis, PT [address] [place] [address] Dx: Falls [R29.6]; Balance disorder [R26.89] [facility] Comment on above: Dx: Falls [R29.6]; B alance disorder [R26.89] Start: 03-01-2025 End: 03-01-2025 Patient encounter procedure 03/01/2025 7:00 AM EDT Appointment Radiology [address] [place] [id number] MRI BRAIN W QUANT WO IVCON Radiology Comment on above: MRI BRAIN W QUANT WO IVCON Start: 02-27-2025 End: 05-29-2025 Cobalamin (Vitamin B12) [Mass/volume] in Serum or Plasma [facility] Comment on above: Expected: 02/27/2025 (Approximate), Expires: 05/29/2025 Start: 02-27-2025 End: 05-29-2025 Comprehensive metabolic 2000 panel - Serum or Plasma [facility] Work Phone: Comment on above: Expected: 02/27/2025 (Approximate), Expires: 05/29/2025 Start: 02-27-2025 End: 02-27-2025 Patient encounter procedure 02/27/2025 1:20 PM EDT Office Visit [facility] [place] [address] [facility] [place] [address] Teresa gAuilar MD [address] [facility] [place] [id number] 2 week f/u dizziness [facility] [place] Comment on above: 2 week f/u dizziness Start: 02-20-2025 BP Controlled (<130/80) BP Controlle d (<130/80) [facility] Start: 02-20-2025 Screening for malign ant neoplasm of lung Lung Cancer Screening [facility] Start: 02-20-2025 End: 02-20-2025 Patient encounter procedure [facility] [place] Comment on above: 2 week f/u dizziness Falls [R29.6] Start: 02-19-2025 End: 02-19-2025 Patient encounter procedure 02/19/2025 3:30 PM EDT Appointment Radiology [address] [place], [place] [address] Falls [R29.6] Radiology Comment on above: Falls [R29.6] Start: 02-01-2025 End: 02-01-2025 Patient encounter procedure 02/01/2025 3:40 PM EDT Office Visit [facility] [place] [address] [facility] [place] [address] Teresa Aguilar MD [address] [facility] [place] [id number] Follow UP appointment [facility] [place] Comment on above: Follow UP appointmen t Start: 12-19-2024 End: 12-19-2024 Patient encounter procedure 12/19/2024 2:45 PM EDT Office Visit Neurology [address] [facility] [place] [id number] Cora Gil PA-C [address] [facility] [place] [address] Dx: Falls [R29.6]; Cognitive changes [R41.89] Neurology Comment on above: Dx: Falls [R29.6]; C ognitive changes [R41.89] Start: 12-19-2024 End: 03-20-2025 Cobalamin (Vitamin B12) [Mass/volume] in Serum or Plasma [facility] Comment on above: Expected: 12/19/2024 , Expires: 03/20/2025 Start: 12-19-2024 End: 03-20-2025 Folate [Mass/volume] in Serum or Plasma [facility] Comment on above: Expected: 12/19/2024 , Expires: 03/20/2025 Start: 12-19-2024 End: 03-20-2025 Hemoglobin A1c in Blood [facility] Comment on above: Expected: 12/19/2024 , Expires: 03/20/2025 Start: 12-19-2024 End: 03-20-2025 Methylmalonate [Moles/volume] in Serum or Plasma [facility] Comment on above: Expected: 12/19/2024 , Expires: 03/20/2025 Start: 12-19-2024 End: 03-20-2025 PROT ELECT SERUM WITH MERY AND INTERP [facility] Comment on above: Expected: 12/19/2024 , Expires: 03/20/2025 Start: 12-19-2024 End: 03-20-2025 SYPHILIS TREPONEMAL W/REFLEX [facility] Comment on above: Expected: 12/19/2024 , Expires: 03/20/2025 Start: 12-19-2024 End: 03-20-2025 Thyrotropin [Units/volume] in Serum or Plasma [facility] Comment on above: Expected: 12/19/2024 , Expires: 03/20/2025 Start: 12-19-2024 End: 03-20-2025 TOXICOLOGY PANEL BLD TOXICOLOGY PANEL BLD Lab Routine Cognitive changes Expected: 12/19/2024, Expires: 03/20/2025 [facility] Comment on above: Expected: 12/19/2024 , Expires: 03/20/2025 Start: 11-30-2024 Annual PCP Team Family [address] Justice lizette Disease Visit Annual PCP Team Chronic Disease Visit [facility] Start: 11-30-2024 BP Controlled (<130/80) BP Controlle d (<130/80) [facility] Start: 11-18-2024 Advance Directive Discussion Advance Directive Discussion [facility] Start: 11-18-2024 Screening for osteoporosis Bone Density Screening [facility] Start: 11-15-2024 End: 11-15-2024 Patient encounter procedure 11/15/2024 11:20 AM EST Office Visit [facility] [address] [place] [address] Nga Ferrer APRN.WARD SERVICE SUPERVISOR [address] [place] [address] Discuss getting a letter for housing due to disability back [facility] [place] Comment on above: Discuss getting a le tter for housing due to disability back Start: 11-11-2024 Medicare Annual Well ness Visit Medicare Annual Wellness Visit [facility] Start: 10-11-2024 [address] Team [address] Justice lizette Disease Visit Annual PCP Team Chronic Disease Visit [facility] Start: 09-26-2024 End: 09-26-2024 Patient encounter procedure 09/26/2024 9:00 AM EST Office Visit Neurology [address] [facility] [place] [address] Cora Gil PA-C [address] [place] [address] New patient Neurology Comment on above: New patient Start: 09-15-2024 Screening for malign ant neoplasm of lung Lung Cancer Screening [facility] Start: 08-30-2024 End: 08-30-2024 Patient encounter procedure 08/30/2024 11:30 AM EST Office Visit Neurology [address] [place] [address] Cora Gil PA-C [address] [place] [address] Falls [R29.6]; Cognitive changes [R41.89] Neurology Comment on above: Falls [R29.6]; Cogni tive changes [R41.89] Start: 08-18-2024 BP Controlled (<130/80) BP Controlle d (<130/80) [facility] Start: 08-16-2024 End: 08-16-2024 Patient encounter procedure 08/16/2024 2:30 PM EST Office Visit Pulmonary Medicine [address] [place] [id number] Betzy Alejandro PA-C [address] [place] [id number] 4 WK F/U COPD Pulmonary Medicine Comment on above: 4 WK F/U COPD Start: 08-02-2024 End: 08-02-2024 Patient encounter procedure 08/02/2024 4:20 PM EST Appointment Radiology [address] [place] [address] Cognitive impairment, mild, so stated [G31.84] MRI BRAIN WO/W IVCON*DEMENTIA PROTOCOL 3T Radiology Comment on above: Cognitive impairment , mild, so stated [G31.84] MRI BRAIN WO/W IVCON*DEMENTIA PROTOCOL 3T Start: 08-02-2024 BP Controlled (<130/80) BP Controlle d (<130/80) [facility] Start: 07-21-2024 BP Controlled (<130/80) BP Controlle d (<130/80) [facility] Start: 07-20-2024 End: 07-20-2024 Patient encounter procedure 07/20/2024 9:20 AM EST Appointment Radiology [address] [place] [id number] Cognitive impairment, mild, so stated [G31.84] Radiology Comment on above: Cognitive impairment , mild, so stated [G31.84] Start: 06-30-2024 End: 06-30-2024 Patient encounter procedure 06/30/2024 1:20 PM EDT Appointment Cat Scan [address] [place] [id number] Lung nodules [R91.8] Cat Scan Comment on above: Lung nodules [R91.8] Start: 06-30-2024 End: 06-30-2024 Patient encounter procedure 06/30/2024 11:20 AM EDT Appointment Radiology [address] [place] [address] Cognitive impairment, mild, so stated [G31.84] Radiology Comment on above: Cognitive impairment , mild, so stated [G31.84] Start: 06-19-2024 End: 06-19-2024 Patient encounter procedure 06/19/2024 3:00 PM EDT Appointment Radiology [address] [place] [address] Cognitive impairment, mild, so stated [G31.84] Radiology Comment on above: Cognitive impairment , mild, so stated [G31.84] Start: 06-09-2024 End: 06-09-2024 Patient encounter procedure 06/09/2024 9:20 AM EDT Office Visit [facility] [address] [place] [address] Nga Ferrer, CARLENE.WARD SERVICE SUPERVISOR [address] [place] [address] trouble remembering things x 1 month, pt requested this day for appt. [facility] Comment on above: trouble remembering things x 1 month, pt requested this day for appt. Start: 06-05-2024 End: 06-05-2024 ambulatory 06/05/2024 9:00 AM EDT Procedure PULM LAB PENDING SALE TO [facility] [address] [place] [address] Wstr, Pulm Lab [facility] [address] [place] [address] Requires oxygen therapy [Z99.81] PULM LAB PENDING SALE TO [facility] Comment on above: Requires oxygen ther apy [Z99.81] Start: 05-30-2024 End: 05-30-2024 Patient encounter procedure 05/30/2024 1:00 PM EDT Office Visit [facility] [address] [place] [address] Josh Butterfield APRN.WARD SERVICE SUPERVISOR [address] [place] [address] oxygen f/u, needs 6 minute walk test Family [facility] Comment on above: oxygen f/u, needs 6 minute walk test Start: 05-21-2024 ANNUAL PCP TEAM APPRENTICE PHOTOGRAPHER LIZETTE DISEASE VISIT ANNUAL PCP TEAM CHRONIC DISEASE VISIT [facility] Start: 05-16-2024 End: 05-16-2024 Patient encounter procedure 05/16/2024 2:00 PM EDT Office Visit Family Aliyah Llanos [address] [place], [place] [id number] Teresa Aguilar MD [address] [place], [place] [id number] Memory Issues (Patient forgot why she was calling) [facility] Comment on above: Memory Issues (Patie nt forgot why she was calling) Start: 05-14-2024 Covid-19 Vaccine () Covid-19 Vaccine () [facility] Start: 05-14-2024 Influenza vaccination Influenza Vacc ine (#1) [facility] Start: 05-12-2024 End: 05-12-2024 Patient encounter procedure 05/12/2024 3:45 PM EDT Office Visit Orthopedics [address] [facility] [address] [place] [id number] Carolyn Jamison MD [address] [facility] [address] [place], [place] [id number] Right shoulder pain-surgery 08/[address] Jamison [facility] Comment on above: Right shoulder pain- surgery 08/[address] Jamison Start: 05-12-2024 ANNUAL PCP TEAM APPRENTICE PHOTOGRAPHER LIZETTE DISEASE VISIT ANNUAL PCP TEAM CHRONIC DISEASE VISIT [facility] Start: 05-02-2024 End: 05-02-2024 Patient encounter procedure 05/02/2024 10:00 AM EDT Office Visit Pulmonary Medicine [address] [place], [place] [address] Karin Lloyd, CARLENE.WARD SERVICE SUPERVISOR [id number] [place] [address] 4 WK F/U COPD Pulmonary Medicine Comment on above: 4 WK F/U COPD Start: 04-28-2024 End: 04-28-2024 Patient encounter procedure 04/28/2024 2:00 PM EDT Office Visit Orthopedics [address] [phone] Perla Kennedy PA-C [address] [place] [address] Right shoulder pain-surgery 08/[address] [facility] Comment on above: Right shoulder pain- surgery 08/[address] Jamison Start: 04-22-2024 End: 04-22-2024 Patient encounter procedure 04/22/2024 8:40 AM EDT Office Visit [facility] [place] [address] [place] [address] Teresa Aguilar MD [address] [place] [address] follow up oxygen use per patient insurance [facility] Comment on above: follow up oxygen use per patient insurance Start: 04-04-2024 End: 04-04-2024 Patient encounter procedure 04/04/2024 2:00 PM EDT Appointment Radiology [address] [place] [address] Rt Shoulder Aspiration Radiology Comment on above: Rt Shoulder Aspirati on Start: 03-29-2024 End: 03-29-2024 Patient encounter procedure 03/29/2024 3:00 PM EDT Office Visit Pulmonary Medicine [address] [place] [address] Betzy Aljeandro PA-C [address] [place] [address] COPD follow up Pulmonary Medicine Comment on above: COPD follow up Start: 03-15-2024 End: 03-15-2024 ambulatory 03/15/2024 2:30 PM EDT Results Only [facility] Rasmussen PENDING SALE [facility] Laboratory [address] [place] [address] Lab for to Drain Fluid in Rt Shoulder Adam [facility] Comment on above: Lab for to Drain Flu id in Rt Shoulder Start: 03-06-2024 Shingrix Vaccine (2 of 2) Shingrix Vaccine (2 of 2) [facility] Start: 03-01-2024 End: 03-01-2024 Patient encounter procedure 03/01/2024 8:20 AM EDT Appointment Cat Scan [address] [place] [address] Status post reverse total replacement of right [...] pain, unspecified chronicity Expected: 02/18/2024, Expires: 05/19/2024 [facility] Comment on above: Expected: 02/18/2024 , Expires: 05/19/2024 Start: 02-18-2024 End: 05-19-2024 C reactive protein [Mass/volume] in Serum or Plasma C-REACTIVE PROTEIN Lab Routine Status post reverse total replacement of right shoulder Right shoulder pain, unspecified chronicity Expected: 02/18/2024, Expires: 05/19/2024 [facility] Comment on above: Expected: 02/18/2024 , Expires: 05/19/2024 Start: 02-18-2024 End: 05-19-2024 CBC W Auto Differential panel - Blood COMPLETE BLOOD COUNT AND DIFFERENTIAL Lab Routine Status post reverse total replacement of right shoulder Right shoulder pain, unspecified chronicity Expected: 02/18/2024, Expires: 05/19/2024 [facility] Work Phone: Comment on above: Expected: 02/18/2024 , Expires: 05/19/2024 Start: 02-18-2024 End: 05-19-2024 Erythrocyte sedimentation rate SEDIMENTATION RATE, WESTERGREN Lab Routine Status post reverse total replacement of right shoulder Right shoulder pain, unspecified chronicity Expected: 02/18/2024, Expires: 05/19/2024 [facility] Comment on above: Expected: 02/18/2024 , Expires: 05/19/2024 Start: 02-02-2024 End: 02-02-2024 Patient encounter procedure Pulmonary Medicine Comment on above: COPD follow up Start: 01-28-2024 End: 01-28-2024 Patient encounter procedure Radiology Comment on above: R shoulder R-RTSA 08/04/23 Start: 01-14-2024 End: 01-14-2024 Patient encounter procedure Radiology Comment on above: R shoulder R-RTSA 08/04/23 Start: 11-13-2023 ANNUAL PCP TEAM APPRENTICE PHOTOGRAPHER LIZETTE DISEASE VISIT ANNUAL PCP TEAM CHRONIC DISEASE VISIT [facility] Start: 09-13-2023 Behavioral Health Screening Behavioral Health Screening [facility] Start: 09-13-2023 Depression Assessment Depression Ass essment [facility] Start: 06-10-2023 ANNUAL PCP TEAM APPRENTICE PHOTOGRAPHER LIZETTE DISEASE VISIT ANNUAL PCP TEAM CHRONIC DISEASE VISIT [facility] Start: 05-20-2023 Mammography [facility] Start: 05-20-2023 Screening for malign ant neoplasm of breast Mammogram Screening [facility] Start: 05-14-2023 Covid-19 Vaccine ( season) Covid-19 Vaccine () [facility] Start: 05-14-[address] [facility] Start: 05-11-2023 Adult depression screening assessment DEPRESSION SCREENING [facility] Start: 05-11-2023 ANNUAL PCP TEAM APPRENTICE PHOTOGRAPHER LIZETTE DISEASE VISIT ANNUAL PCP TEAM CHRONIC DISEASE VISIT [facility] Start: 01-31-2023 DIABETES SCREEN DIABETES SCREEN [facility] Start: 12-10-2022 Lipid 1996 panel - S kristal or Plasma Lipid Screening [facility] Start: 12-10-2022 Lipid panel Lipid Screening [facility] Start: 12-10-2022 LIPID SCREEN LIPID SCREEN [facility] Start: 11-27-2022 [facility] Start: 11-20-2022 Colonoscopy COLONOSCOPY [facility] Start: 11-20-2022 COLORECTAL CANCER SCREENING COLORECTAL CANCER SCREENING [facility] Start: 11-20-2022 Screening for malign ant neoplasm of colon [facility] Start: 09-13-2022 DEPRESSION ASSESSMENT DEPRESSION ASS ESSMENT [facility] Start: 05-14-[address] [facility] Start: 01-02-2022 COVID-19 VACCINE (4 - Booster for Moderna series) COVID-19 VACCINE (4 - Booster for Moderna series) [facility] Start: 10-29-2021 COVID-19 VACCINE (4 - Booster for Moderna series) COVID-19 VACCINE (4 - Booster for Moderna series) [facility] Start: 10-29-2021 COVID-19 VACCINE (4 - Moderna series) COVID-19 VACCINE (4 - Moderna series) [facility] Start: 10-24-2021 ANNUAL PCP TEAM APPRENTICE PHOTOGRAPHER LIZETTE DISEASE VISIT ANNUAL PCP TEAM CHRONIC DISEASE VISIT [facility] Start: 09-13-2021 DEPRESSION ASSESSMENT DEPRESSION ASS [facility] Start: 02-15-2021 Mammography MAMMOGRAM [facility] Start: 2019 RSV Vaccine (1 - 1-d ose 60+ series) RSV Vaccine (1 - 1-dose 60+ series) [facility] Start: 2019 RSV Vaccine (1 - Ris k 60-74 years 1-dose series) RSV Vaccine (1 - Risk 60-74 years 1-dose series) [facility] Start: 05-10-2019 Adult depression screening assessment DEPRESSION SCREENING [facility] Start: 11-18-2009 SHINGRIX VACCINE (1 of 2) SHINGRIX VACCINE (1 of 2) [facility] Start: 09-17-2006 PNEUMOCOCCAL (2 - PCV) PNEUMOCOCCAL (2 - PCV) [facility] Start: 09-17-2006 Pneumococcal vaccination [facility] Start: 09-17-2006 Pneumococcal Vaccine : 50+ (2 of 2 - PCV) Pneumococcal Vaccine: 50+ (2 of 2 - PCV) [facility] Start: 11-18-2004 COLOGUARD (FIT-DNA) COLOGUARD (FIT-D NA) [facility] Start: 11-18-[address] COLONOGRAPHY [facility] Start: 11-18-2004 FECAL OCCULT BLOOD FECAL OCCULT BLOO D [facility] Start: 11-18-2004 Screening for malign ant neoplasm of colon [facility] Start: 11-18-2004 SIGMOIDOSCOPY SIGMOIDOSCOPY [facility] Start: 11-18-1977 Anxiety Screening Anxiety Screening [facility] Start: 11-18-1977 BP Controlled (<130/80) BP Controlle d (<130/80) [facility] Start: 11-18-1977 Depression Screening Depression Scre ening [facility] Start: 11-18-1977 HEPATITIS C SCREENING HEPATITIS C SC REENING [facility] Start: 11-18-1977 HIV SCREENING HIV SCREENING [facility] Start: 11-18-1977 SPIROMETRY SPIROMETRY [facility] Bacteria identified in Unspecified specimen by Respiratory culture RESPIRATORY CULTURE AND STAIN Microbiology Routine Persistent cough for 3 weeks or longer Ordered: 07/27/2024 [facility] Work Phone: Comment on above: Ordered: 07/27/2024 End: 05-02-2026 CT Chest for screening WO contrast CT LUNG SCREEN WO IVCON Radiology Routine Encounter for screening for lung cancer Tobacco use current 1 Occurrences starting 04/02/2025 until 05/02/2026 [facility] Work Phone: Comment on above: 1 Occurrences starti ng 04/02/2025 until 05/02/2026 End: 12-08-2024 CT Chest WO contrast CT CHEST WO IVCON Radiology Routine Lung nodules 1 Occurrences starting 11/09/2023 until 12/08/2024 [facility] Work Phone: Comment on above: 1 Occurrences starti ng 11/09/2023 until 12/08/2024 CT Chest WO contrast CT CHEST WO IVCON Radiology Routine Lung nodules 02/21/2024 8:48 AM EDT [facility] Work Phone: End: 07-27-2025 CT Chest WO contrast CT CHEST WO IVCON Radiology Routine Lung nodules 1 Occurrences starting 06/27/2024 until 07/27/2025 [facility] Work Phone: Comment on above: 1 Occurrences starti ng 06/27/2024 until 07/27/2025 CT Chest WO contrast CT CHEST WO IVCON Radiology Routine Lung nodules 07/11/2024 2:34 PM EDT [facility] Work Phone: End: 03-19-2025 CT Shoulder - right WO contrast CT SHOULDER WO IVCON RIGHT Radiology Routine Status post reverse total replacement of right shoulder Right shoulder pain, unspecified chronicity 1 Occurrences starting 02/18/2024 until 03/19/2025 [facility] Comment on above: 1 Occurrences starti ng 02/18/2024 until 03/19/2025 End: 06-30-2025 DBT Breast - bilateral screening HIPOLITO SCREENING W DUONG Radiology Routine Encounter for screening mammogram for breast cancer 1 Occurrences starting 05/31/2024 until 06/30/2025 [facility] Work Phone: Comment on above: 1 Occurrences starti ng 05/31/2024 until 06/30/2025 End: 03-19-2025 Guidance for injection of Shoulder IMAGING GUIDED ASP/INJ SHOULDER JT/BURSA RIGHT Radiology Routine Status post reverse total replacement of right shoulder Right shoulder pain, unspecified chronicity 1 Occurrences starting 02/18/2024 until 03/19/2025 [facility] Comment on above: 1 Occurrences starti ng 02/18/2024 until 03/19/2025 Inject si joint arthrgrphy&/anes/steroid w/fatmata INJECTION PROCEDURE FOR SACROILIAC Procedures Routine SI joint arthritis Ordered: 06/18/2023 [facility] Work Phone: Comment on above: Ordered: 06/18/2023 Inject si joint arthrgrphy&/anes/steroid w/fatmata INJECTION PROCEDURE FOR SACROILIAC Procedures Routine Narrowing of lumbar intervertebral disc space SI joint arthritis 1 Occurrences starting 08/18/2023 [facility] Work Phone: Comment on above: 1 Occurrences starti ng 08/18/2023 End: 06-29-2024 LUNG DIFFUSION CAPACITY (DLCO) LUNG DIFFUSION CAPACITY (DLCO) PFT Routine Chronic obstructive pulmonary disease, unspecified COPD type (HCC) 1 Occurrences starting 05/31/2023 until 06/29/2024 [facility] Work Phone: Comment on above: 1 Occurrences starti ng 05/31/2023 until 06/29/2024 End: 06-29-2024 LUNG VOLUMES LUNG VOLUMES PFT Routine Chronic obstructive pulmonary disease, unspecified COPD type (HCC) 1 Occurrences starting 05/31/2023 until 06/29/2024 [facility] Work Phone: Comment on above: 1 Occurrences starti ng 05/31/2023 until 06/29/2024 End: 07-22-2024 HIPOLITO SCREENING HIPOLITO SCREENING Radiology Routine Encounter for screening mammogram for breast cancer 1 Occurrences starting 06/23/2023 until 07/22/2024 [facility] Work Phone: Comment on above: 1 Occurrences starti ng 06/23/2023 until 07/22/2024 Microorganism identi fied in Unspecified specimen by Culture AFB CULT + STAIN Microbiology Routine Persistent cough for 3 weeks or longer Ordered: 07/27/2024 [facility] Comment on above: Ordered: 07/27/2024 End: 07-09-2025 MR Brain WO and W contrast IV MRI BRAIN WO/W IVCON Radiology Routine Cognitive impairment, mild, so stated 1 Occurrences starting 06/09/2024 until 07/09/2025 [facility] Work Phone: Comment on above: 1 Occurrences starti ng 06/09/2024 until 07/09/2025 End: 01-18-2026 MR Brain WO contrast MRI BRAIN W QUANT WO IVCON Radiology Routine Falls Cognitive impairment, mild, so stated 1 Occurrences starting 12/19/2024 until 01/18/2026 [facility] Work Phone: Comment on above: 1 Occurrences starti ng 12/19/2024 until 01/18/2026 End: 01-18-2026 MR Cervical spine WO contrast MRI CERVICAL SPINE WO IVCON Radiology Routine [place] Spinal stenosis of cervical region 1 Occurrences starting 12/19/2024 until 01/18/2026 [facility] Comment on above: 1 Occurrences starti ng 12/19/2024 until 01/18/2026 End: 01-18-2026 MR Lumbar spine WO contrast MRI LUMBAR SPINE WO IVCON Radiology Routine [place] Acute low back pain, unspecified back pain laterality, unspecified whether sciatica present Spinal stenosis of lumbar region, unspecified whether neurogenic claudication present 1 Occurrences starting 12/19/2024 until 01/18/2026 [facility] Comment on above: 1 Occurrences starti ng 12/19/2024 until 01/18/2026 End: 01-18-2026 MR Thoracic spine WO contrast MRI THORACIC SPINE WO IVCON Radiology Routine Falls 1 Occurrences starting 12/19/2024 until 01/18/2026 [facility] Comment on above: 1 Occurrences starti ng 12/19/2024 until 01/18/2026 End: 01-18-2026 MR Unspecified body region 3D post processing MRI 3D BRAIN QUANT Radiology Routine Cognitive changes Cognitive impairment, mild, so stated 1 Occurrences starting 12/19/2024 until 01/18/2026 [facility] Comment on above: 1 Occurrences starti ng 12/19/2024 until 01/18/2026 End: 06-29-2024 OXIMETRY WITH AMBULATION OXIMETRY WITH AMBULATION PFT Routine Chronic obstructive pulmonary disease, unspecified COPD type (HCC) 1 Occurrences starting 05/31/2023 until 06/29/2024 [facility] Work Phone: Comment on above: 1 Occurrences starti ng 05/31/2023 until 06/29/2024 Patient Education [facility] Work Phone: Patient referral [facility] Work Phone: End: 06-10-2024 Radex sacrum & coccyx minimum 2 views XR SACRUM/COCCYX 3V AP/LAT Radiology Routine Tail bone pain 1 Occurrences starting 05/12/2023 until 06/10/2024 [facility] Work Phone: Comment on above: 1 Occurrences starti ng 05/12/2023 until 06/10/2024 Radex sacrum & coccy x minimum 2 views XR SACRUM/COCCYX 3V AP/LAT Radiology Routine Tail bone pain 05/12/2023 10:49 AM EDT [facility] Work Phone: End: 06-10-2024 Radex spine lumbosacral 2/3 views XR LUMBAR GENERAL 3V AP/LAT/L5-S1 Radiology Routine Tail bone pain 1 Occurrences starting 05/12/2023 until 06/10/2024 [facility] Work Phone: Comment on above: 1 Occurrences starti ng 05/12/2023 until 06/10/2024 Radex spine lumbosac ral 2/3 views XR LUMBAR GENERAL 3V AP/LAT/L5-S1 Radiology Routine Tail bone pain 05/12/2023 10:49 AM EDT [facility] Work Phone: End: 04-10-2023 Screening mammography bi 2-view breast inc cad HIPOLITO SCREENING Radiology Routine Encounter for screening mammogram for breast cancer 1 Occurrences starting 03/11/2022 until 04/10/2023 [facility] Work Phone: Comment on above: 1 Occurrences starti ng 03/11/2022 until 04/10/2023 End: 06-10-2023 Screening mammography bi 2-view breast inc cad HIPOLITO SCREENING Radiology Routine Encounter for screening mammogram for malignant neoplasm of breast 1 Occurrences starting 05/11/2022 until 06/10/2023 [facility] Work Phone: Comment on above: 1 Occurrences starti ng 05/11/2022 until 06/10/2023 End: 06-24-2025 SIX MINUTE WALK SIX MINUTE WALK PFT Routine Requires oxygen therapy 1 Occurrences starting 05/25/2024 until 06/24/2025 [facility] Work Phone: Comment on above: 1 Occurrences starti ng 05/25/2024 until 06/24/2025 End: 06-29-2024 SPIROMETRY WITH DILATOR IF OBSTRUCTED SPIROMETRY WITH DILATOR IF OBSTRUCTED PFT Routine Chronic obstructive pulmonary disease, unspecified COPD type (HCC) 1 Occurrences starting 05/31/2023 until 06/29/2024 [facility] Work Phone: Comment on above: 1 Occurrences starti ng 05/31/2023 until 06/29/2024 XR Shoulder - right 3 Views XR SHOULDER GENERAL 3V OR MORE AP/TRUE AP/OTHER RIGHT Radiology Routine Chronic right shoulder pain 1 Occurrences starting 10/21/2023 [facility] Work Phone: Comment on above: 1 Occurrences starti ng 10/21/2023 XR Shoulder - right 3 Views XR SHOULDER GENERAL 3V OR MORE AP/TRUE AP/OTHER RIGHT Radiology Routine Chronic right shoulder pain 1 Occurrences starting 01/03/2024 [facility] Work Phone: Comment on above: 1 Occurrences starti ng 01/03/2024 End: 06-10-2024 XR SHOULDER GENERAL 3V OR MORE AP/TRUE AP/OTHER LEFT XR SHOULDER GENERAL 3V OR MORE AP/TRUE AP/OTHER LEFT Radiology Routine Acute pain of left shoulder 1 Occurrences starting 05/12/2023 until 06/10/2024 [facility] Work Phone: Comment on above: 1 Occurrences starti ng 05/12/2023 until 06/10/2024 XR SHOULDER GENERAL 3V OR MORE AP/TRUE AP/OTHER LEFT XR SHOULDER GENERAL 3V OR MORE AP/TRUE AP/OTHER LEFT Radiology Routine Acute pain of left shoulder 05/12/2023 10:49 AM EDT [facility] Work Phone: End: 01-23-2024 XR SHOULDER GENERAL 3V OR MORE AP/TRUE AP/OTHER RIGHT XR SHOULDER GENERAL 3V OR MORE AP/TRUE AP/OTHER RIGHT Radiology Routine Right shoulder pain, unspecified chronicity 1 Occurrences starting 12/24/2022 until 01/23/2024 [facility] Work Phone: Comment on above: 1 Occurrences starti ng 12/24/2022 until 01/23/2024 XR SHOULDER GENERAL 3V OR MORE AP/TRUE AP/OTHER RIGHT XR SHOULDER GENERAL 3V OR MORE AP/TRUE AP/OTHER RIGHT Radiology Routine Chronic right shoulder pain 1 Occurrences starting 08/23/2023 [facility] Work Phone: Comment on above: 1 Occurrences starti ng 08/23/2023 [facility] Immunizations Immunization Date Immunization Notes Care Provider Fa [facility] 02-27-2025 pneumococcal conjuga te (PCV20) vaccine, 20 valent (PREVNAR 20) Teresa Aguilar MD Work Phone: [facility] 02-27-2025 pneumococcal Conjuga te, unspecified formulation Teresa Aguilar MD Work Phone: [facility] 11-22-2024 COVID-19 vaccine, ag e 12+ yr ([employer] COMIRNATY) 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 Work Phone: [facility] 01-10-2024 zoster vaccine recombinant Teresa Aguilar MD Work Phone: [facility] 08-02-2023 influenza, injectabl e, quadrivalent, contains preservative Pulm Wstr Work Phone: [facility] 08-02-2023 influenza virus vacc ine, unspecified formulation Carolyn Jamison MD Work Phone: [facility] 01-15-2021 COVID-19 vaccine, fu ll dose (MODERNA) [employer] Work Phone: [facility] Work Phone: 10-12-2018 influenza, injectabl e, quadrivalent, contains preservative [employer] Work Phone: [facility] 10-12-2018 influenza virus vacc ine, unspecified formulation Roro Loo MD Work Phone: [facility] 06-25-2016 influenza, injectabl e, quadrivalent, contains preservative [employer] Work Phone: [facility] Work Phone: 03-23-2016 tetanus toxoid, redu adan diphtheria toxoid, and acellular pertussis vaccine, adsorbed [employer] Work Phone: [facility] 09-15-2011 influenza virus vacc ine, unspecified formulation [employer] Work Phone: [facility] Work Phone: 06-24-2010 influenza virus vacc ine, unspecified formulation [employer] Work Phone: [facility] 02-26-2008 diphtheria and tetan us toxoids, adsorbed for pediatric use [employer] Work Phone: [facility] Work Phone: 09-17-2005 pneumococcal polysaccharide vaccine, 23 valent Xr [facility] Work Phone: [facility] Work Phone: Payers Date Payer Category Payer Self-pay [id number] 2024 Medicare MEDICARE [id number] 2024 Medicare [id number] 2022 Unknown [id number] 2019 Private Health Insurance 25d [id number] 2017 Medicaid [facility] MEDICAID [facility] [employer] MEDICAID [id number] 2017-Present [phone] [address] [place] [address] Medicaid [id number] 2017 Medicaid [id number] 2013 Unknown [id number] 1959 Unknown [id number] 1959 Unknown [id number] 1959 Unknown [id number] 1959 Unknown [id number] 1959 Unknown [id number] 1959 Unknown [id number] Unknown [id number] Social History Date Type Detail Facility Start: 05-11-2022 End: 04-28-2025 Tobacco smoking status NHIS Smokes tobacco daily [facility] Work Phone: Start: 10-02-1972 History of tobacco use Cigarette Smo ker [facility] Start: 09-01-2021 End: 02-27-2025 Alcohol intake Current non-drinker of alcohol (finding) [facility] Start: 1960 Sex Assigned At Not on file [facility] Start: 09-02-2020 End: 06-10-2022 Exposure to SARS-CoV-2 (event) Not sure [facility] Start: 08-21-2018 Tobacco smoking status Heavy t obacco smoker (finding) [facility] Sex Assigned At [facility] Start: 05-11-2022 End: 08-13-2023 Cigarettes smoked current (pack per day) - Reported 0.5 [facility] Start: 05-11-2022 End: 06-05-2024 Tobacco use and exposure Smokeless tobacco non-user [facility] Start: 11-27-2022 Tobacco smoking stat us OHIS Unknown if ever smoked [facility] Start: 08-29-2020 None [facility] Start: 12-21-2018 Cigarettes [facility] Start: 1960 Sex Assigned At Female [facility] Start: 03-01-2023 End: 08-13-2023 Tobacco use panel [facility] Adult Depression Screening Assessment 0 [facility] Start: 05-31-2023 Tobacco Comment 2 ppd in past [facility] History of tobacco use Passive smoker [facility] Start: 02-21-2024 Tobacco Comment start age 11, average of 1.5 PPD since, currently smoking [facility] Start: 03-29-2024 Tobacco Comment start age 11, average of 1.5 PPD since, currently smoking 0.5 PPD [facility] Start: 10-22-2005 Sex Female (finding) [facility] Medical Equipment Procedure Code Equipment Code Equipment Origin al Text Equipment Identifier Dates TEMITOPE CARMONA LG FDA Start: 12-19-2018 TEMITOPE CARMONA FDA Start: 12-19-2018 TEMITOPE CARMONA FDA Start: 12-19-2018 RELOAD,BLUE 60 FDA Start: 12-19-2018 RELOAD,BLUE 60 FDA Start: 12-19-2018 RELOAD,BLUE 60 FDA Start: 12-19-2018 CLEMENTINA ANNA FDA Start: 12-19-2018 Insert Ar Small [id number] Neutral Eplus - [id number] Start: 08-04-2023 Shell Humeral Altivate Reverse Small Shell Sz [id number] - [id number] Start: 08-04-2023 Baseplate Rsp P2 30mm Glenoid Sterile - [id number] Start: 08-04-2023 Screw Rsp 5mm 26 mm Bone Lock Glenoid Baseplate Shoulder - [id number] Start: 08-04-2023 Head Rsp 36mm Neutral Glenoid Retain Screw - [id number] Start: 08-04-2023 Screw Rsp 5mm 18 mm Bone Lock Glenoid Baseplate Shoulder - [id number] Start: 08-04-2023 Screw Rsp 5mm 18 mm Bone Lock Glenoid Baseplate Shoulder - [id number] Start: 08-04-2023 Screw Rsp 5mm 22 mm Bone Lock Glenoid Baseplate Shoulder - [id number] Start: 08-04-2023 TEMITOPE CARMONA LG FDA Start: 12-19-2018 TEMITOPE CARMONA FDA Start: 12-19-2018 TEMITOPE CARMONA FDA Start: 12-19-2018 RELOAD,BLUE 60 FDA Start: 12-19-2018 RELOAD,BLUE 60 FDA Start: 12-19-2018 RELOAD,BLUE 60 FDA Start: 12-19-2018 JOHN ANNA60Ebenezer FDA Start: 12-19-2018 Functional Status Date Assessment Result Facility 09-07-2024 Functional Status Up ad kaitlynn [facility] 09-07-2024 Functional Status Standard Safet y ID band on, Allergy Band on, Call device within reach, Bed in low position, Wheels locked, Bedside Cart Locked, Safety level maintained [facility] 05-17-2024 Functional Status Room check performed [facility] 12-30-2023 Functional Status Up ad kaitlynn [facility] 09-28-2023 Functional Status Standard Safet y ID band on, Call device within reach, Bed in low position, Wheels locked, Upper/Half-Length side-rails up, Phone within reach [facility] 08-05-2023 Are you deaf, or do you have serious difficulty hearing No 08/05/2023 1:45 PM Bradley Greenfield RN No [facility] 08-05-2023 Are you blind, or do you have serious difficulty seeing, even when wearing glasses No 08/05/2023 1:45 PM Bradley Greenfield, ASHLEE No [facility] 08-05-2023 Do you have serious difficulty walking or climbing stairs No 08/05/2023 1:45 PM Bradley Greenfield, ASHLEE No [facility] 08-05-2023 Do you have difficul ty dressing or bathing Yes 08/05/2023 1:45 PM Bradley Greenfield, ASHLEE Yes [facility] 08-05-2023 Because of a physica l, mental, or emotional condition, do you have difficulty doing errands alone such as visiting a physician's office or shopping Yes 08/05/2023 1:45 PM Bradley Greenfield, ASHLEE Yes [facility] 06-26-2023 Functional Status ID band on [facility] 04-15-2023 Functional Status ID band on, Call device within reach, Bed in low position, Wheels locked [facility] 08-28-2022 Functional Status Resting Mehul Iglesias [facility] 08-02-2022 Functional Status ID band on, Allergy Band on, Call device within reach, Bed in low position, Wheels locked, Upper/Half-Length side-rails up, Phone within reach, personal items within reach [facility] 06-23-2022 Functional Status Repositions self [facility] 06-23-2022 Functional Status Room check performed [facility] 05-05-2022 Functional Status ID band on, Call device within reach, Bed in low position, Wheels locked, Upper/Half-Length side-rails up [facility] 01-29-2022 Functional Status [facility] Mental Status Date Assessment Result Facility 04-28-2025 Cognitive function Level Of Cons ciousness Awake;Alert;Appropriate;Fol lows Commands [facility] Work Phone: 09-07-2024 Mental Status Orientation Oriented x 4 [facility] 09-07-2024 Mental Status [facility] 05-17-2024 Mental Status Oriented x 4 [facility] 12-30-2023 Mental Status Orientation Oriented x 4 [facility] 09-28-2023 Mental Status Orientation Oriented x 4 [facility] 08-05-2023 Because of a physica l, mental, or emotional condition, do you have serious difficulty concentrating, remembering, or making decisions Yes 08/05/2023 1:45 PM Bradley Greenfield, ASHLEE Yes [facility] 06-26-2023 Mental Status Orientation Oriented x 4 [facility] 04-15-2023 Mental Status Oriented x 4 [facility] 08-28-2022 Mental Status Orientation Oriented x 4 [facility] 08-02-2022 Mental Status Oriented x 4 [facility] 06-23-2022 Mental Status Orientation Oriented x 4 [facility] 06-23-2022 Mental Status [facility] 05-05-2022 Mental Status Oriented x 4 [facility] 01-29-2022 Mental Status [facility] Clinical Notes 10-02-2020 to 04-28-2025 Note Date & Type Note Facility 04-28-2025 Discharge summary [facility] 04-28-2025 Radiology Diagnostic study note [facility] Imaging Services [address] [place], [place] [id number] Chest 1 View (Portable) MR#: [id number] Acct: [id number] Name: ALBANIA RAMSEY Rep #: [id number] : 1960 F 64 From: Jamal Gomez MD PCP: Dr. Teresa Aguilar MD Status: PA E ER Study:Chest 1 View (Portable) Date of Exam: 04/28/25 Exam# [id number] Ordering Dr: Provider ,Ed P. PROCEDURE: CHEST 1 VIEW (PORTABLE) 04/28/2025 REASON FOR EXAM: CHEST PAIN TECHNIQUE: Frontal view of the chest. COMPARISON: 11/27/2022 FINDINGS: Lungs/Pleura: Clear. No pneumothorax or pleural effusion. Heart/Mediastinum: Normal in size. No vascular congestion. Bones/Soft tissues: Mild degenerative changes of the spine. Right shoulder arthroplasty hardware. RAD/Chest 1 View (Portable) IMPRESSION: No acute cardiopulmonary disease. Reading Location: [id number] CC: Dr. 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 Medical Records Department [address] [place] [address] Emergency Department Summary 04/28/25 MR#: [id number] Acct: [id number] Name: ALBANIA RAMSEY Rep #:[id number] : 1960 64 From: Chester Alejandro MD PCP: Dr. Teresa Aguilar MD Status:RE G ER Location: ED HPI History of Present Illness Chief Complaint: Chest Pain Informant: patient and EMS Narrative Narrative: 64-year-old female presenting with chest pain has been present for 3 days off-and-on. She states tends to last 30 minutes at a time or so, feels sharp nonpleuritic. She states it is mid chest sometimes more to the right or left, And epigastric. She states it is not really there right now. She states sometimes it is random but she remembers lying on her left side and triggering it several times. No associated symptoms such as nausea, vomiting, syncope, near syncope, palpitations, dyspnea. No recent cough or fevers. No leg swelling or pain. No history of DVT or PE. No recent long travel/immobilization/hospitalization or surgery. She has a history of COPD, she still smokes, no known heart history. [facility] Medical History Emphysema lung Essential (primary) hypertension COPD (chronic obstructive pulmonary disease) Schizophrenia Bipolar disease, chronic Tobacco dependence Home Medications ?Medication ?Instructions ?Recorded ?Last Taken ?Type Quetiapine Fumarate [Seroquel Xr] 600 mg PO QHS SLEEP 03/17/15 Unknown History bupropion HCl 150 mg 24 hr tablet, 150 mg PO DAILY DEP RESSION 03/17/15 Unknown History extended release escitalopram oxalate 10 mg tablet 20 mg PO DAILY DEPRE SSION 03/17/15 Unknown History gabapentin 300 mg capsule 300 mg PO TID PAIN 03/17/15 Unknown History lamotrigine 100 mg tablet 100 mg PO BID DEPRESSION 01/2512/19/18 04:30 History triazolam 0.25 mg tablet 0.25 mg ORAL QHS PRN PRN Ins omnia 03/17/15 Unknown History benztropine 2 mg tablet 2 mg PO QHS TREMORS 06/30/15 Unknown History albuterol sulfate 2.5 mg/3 mL 2.5 mg inhalation Q4H PA N PRN 11/16/16 12/19/18 04:30 History (0.083 %) solution for nebulization Wheezing fluticasone propionate 110 1 puff inhalation BID COPD 11/16/16 11/18/16 07:16 History mcg/actuation HFA aerosol inhaler (Flovent HFA) acetaminophen 500 mg tablet 1,000 mg (2 x 500 mg) PO Q 6 12/21/18 Unknown Rx ibuprofen 600 mg tablet 600 mg PO TID PRN Pain 12/21 Unknown Rx insulin lispro 100 unit/mL 0 unit (0 mL) subcut Q4H PA N PRN 12/21/18 Unknown Rx subcutaneous pen (Humalog KwikPen BG >/= 180, SEE PROT OCOL (U-100) Insulin) magnesium citrate 300 ml PO X1 ##1 08/29/20 Un known Rx albuterol sulfate 90 mcg/actuation 2 puff inhalation Q 4H PRN PRN 11/27/22 Unknown Rx aerosol inhaler (Ventolin HFA) Wheezing ##1 nirmatrelvir 300 mg (150 mg See Rx Instructions PO .CO MPLEX 11/27/22 Unknown Rx x2)-ritonavir 100 mg tablet,dose #30 tabs pack (Paxlovid) oseltamivir 75 mg capsule 75 mg PO BID #10 CAPSULES Unknown Rx dicyclomine 20 mg tablet 20 mg PO Q6H PRN PRN abdomin al 04/28/25 Unknown Rx discomfort #12 tabs pantoprazole 40 mg tablet,delayed 40 mg PO DAILY #14 t abs 04/28/25 Unknown Rx release Allergy/AdvReac Type Severity Reaction Status Date / Time doxycycline Allergy Hives Verified 04/28/25 20:54 erythromycin base Allergy Hives Verified 04/28/25 20:54 meperidine HCl (From Demerol) Allergy Hives Verified 04/28/25 20:54 morphine Allergy Hives Verified 04/28/25 20:54 prednisone Allergy Hives Verified 04/28/25 20:54 trazodone HCl (From Desyrel) Allergy Hives Verified 04/28/25 20:54 Surgical History (Updated 11/27/22 @ 09:[address] Sy Stewart, DO) History of hysterectomy Social History Smoking Status: Current every day smoker tobacco type: cigarettes ROS ROS ED Constitutional Constitutional ED: Denies chills or fever(s) Eyes Eyes: Denies change in vision or diplopia ENT ENT ED: Denies rhinorrhea or sore throat Cardiovascular Cardiovascular: Reports as per HPI and chest pain; Denies leg edema, palpitations or syncope Respiratory/Chest Respiratory/Chest: Denies cough or dyspnea Gastrointestinal Gastrointestinal: Denies abdominal pain, diarrhea, nausea or vomiting Genitourinary Genitourinary ED: Denies dysuria or hematuria Musculoskeletal Musculoskeletal: Denies back pain or neck pain Integumentary Denies abscess or rash Neurologic Neurologic: Denies headache(s), paresthesias or weakness Psychiatric Psychiatric: Denies anxiety or suicidal thoughts EXAM Physical Exam Const Vital Signs: 04/28/25 20:54 04/28/25 20:59 04/28/25 21:02 Temperature 98.3 F Temperature Source Oral Pulse Rate 102 H Respiratory Rate 25 H Respiratory Effort Normal Non-Labored Blood Pressure 100/53 L Blood Pressure Mean 68 Pulse Ox 97 Oxygen Delivery Method Nasal Cannula Nasal Cannula Oxygen Flow Rate (L/min) 2 2 04/28/25 21:53 Temperature Temperature Source Pulse Rate 90 Respiratory Rate 19 H Respiratory Effort Blood Pressure 103/74 Blood Pressure Mean 83 Pulse Ox 99 Oxygen Delivery Method Room Air Oxygen Flow Rate (L/min) Positive well nourished and well developed General Appearance ED: well developed and NAD HEENT Reports moist mucous membranes normocephalic and atraumatic Eyes PERRL and EOMs intact bilaterally Neck full ROM and supple Resp normal respiratory effort and clear to auscultation bilaterally Cardio regular rate, regular rhythm and no murmurs Rate: Negative for tachycardic GI non-distended GI Narrative: Mild tenderness left upper quadrant without guarding or rebound, no pulsatile mass otherwise benign abdomen. Auscultation: normoactive bowel sounds Palpation: soft Back/Spine no CVA tenderness General Back: other FROM Extremity normal to inspection General Extremety ED: Negative for edema, pulses abnormal or tenderness General Extremity: Negative for edema or pulses abnormal Neuro oriented x3, CN's II-XII intact bilaterally and no sensory deficits noted Sensorium / Orientation: awake and alert Motor Exam: strength 5/5 throughout Skin no rashes or lesions noted and no wounds Heart Score History: Slightly/Non-Suspicious ECG: Normal Age: >/= 65 years Risk Factors: 1 or 2 Risk Factors Troponin: </= Normal Limit Score: 3 MDM MDM MDM Narrative Medical decision making narrative: The patient's EKG is normal, chest x-ray 1 view on my interpretation is normal radiology was in agreement, keeping COPD in contacts, and her labs including a troponin measurement is normal in the single digits. She does not have any discomfort right now. This could be esophageal in etiology, we have essentiallyruled out pneumothorax, acute coronary syndrome, acute myocardial infarction, pneumonia, and I do not think this history sounds like a PE. I think would be reasonable to put her on a 2-week course of a PPI and have her follow-up with her doctor discussed that with her she is comfortable with that plan. We also discussed stopping smoking as it is bad very puts her at risk of having an AR although I do not think that is what is going on now. Also in looking at her medication list at discharge, although she said she is on nothing for reflux, she appears to be on omeprazole. She does not remember if she is taking that with her regular medications or not so I am marking it discontinued and prescribing her pantoprazole and prescribing prn dicyclomine for discomfort. Lab Data Attestation: I reviewed the patient's lab results. Labs: Laboratory Results - last 24 hr 04/28/25 20:30 WBC 9.9 RBC 4.60 Hgb 14.1 Hct 40.4 MCV 87.8 MCH 30.7 MCHC 34.9 RDW Std Deviation 46.3 H RDW Coeff of Loretta 14.4 Plt Count 343 MPV 9.3 Immature Gran % (Auto) 0.400 Neut % (Auto) 60.4 Lymph % (Auto) 26.0 Burt % (Auto) 10.4 H Eos % (Auto) 2.4 Baso % (Auto) 0.4 Absolute Neuts (auto) 6.0 Absolute Lymphs (auto) 2.57 Nucleated RBC % 0 Sodium 140 Potassium 3.7 Chloride 100 Carbon Dioxide 27.6 Anion Gap 12 BUN 12 Creatinine 0.73 Estim Creat Clear Calc 60.32 Est GFR (MDRD) Non-Af 92 BUN/Creatinine Ratio 15.8 Glucose 131 H Calcium 10.3 Troponin T High Sens 9 Radiography Diagnostic Testing: Clinical Impression(s) from Imaging Studies Chest X-Ray 04/28/25 12:09 IMPRESSION: No acute cardiopulmonary disease. Reading Location: [facility] Rhythm Strip Rhythm Strip: Sinus Rhythm Rate: 90 Ectopy: None EKG Initial EKG: Attestation: I personally reviewed and interpreted this EKG as follows: Interpretation: Sinus Rhythm and No Acute Injury Pattern Comments: Nml axis & intervals; RSR', otherwise nml EKG Discharge Plan Triage Chief Complaint: Chest Pain ED Provider: Chester Alejandro Dx/Rx/DC Orders Clinical Impression: Chest pain, unspecified, Encounter for smoking cessation counseling Instructions: ED Chest Pain, Noncardiac Prescriptions: New dicyclomine 20 mg tablet 20 mg PO Q6H PRN PRN (Reason: abdominal discomfort) Qty: 12 0RF pantoprazole 40 mg tablet,delayed release (DR/EC) 40 mg PO DAILY Qty: 14 0RF Continued triazolam 0.25 MG tablet 0.25 mg ORAL QHS PRN PRN (Reason: Insomnia) gabapentin 300 MG capsule 300 mg PO TID Patient Comments: lamotrigine 100 MG tablet 100 mg PO BID escitalopram oxalate 10 MG tablet 20 mg PO DAILY bupropion HCl 150 MG tablet extended release 24 hr 150 mg PO DAILY Quetiapine Fumarate [Seroquel Xr] 300 MG Tab.Sr.24h 600 mg PO QHS Patient Comments: DEPRESSION benztropine 2 MG tablet 2 mg PO QHS albuterol sulfate 2.5 MG/3 ML solution for nebulization 2.5 mg inhalation Q4H PRN PRN (Reason: Wheezing) fluticasone propionate [Flovent HFA] 1 INHALER inhaler 1 puff inhalation BID acetaminophen 500 MG tablet 1,000 mg PO Q6 0RF ibuprofen 600 MG tablet 600 mg PO TID PRN (Reason: Pain) 0RF insulin lispro [Humalog KwikPen Insulin] 100 UNIT/ML insulin pen 0 unit subcut Q4H PRN PRN (Reason: BG >/= 180, SEE PROTOCOL) 0RF magnesium citrate 300 ML solution 300 ml PO X1 Qty: 1 0RF Rx Instructions: Paxlovid 300 mg (150 mg x 2)-100 mg tablets,dose pack See Rx Instructions .ROUTE .COMPLEX Qty: 30 0RF Rx Instructions: take TWO 150 mg tablets of nirmatrelvir with ONE 100 mg tablet of ritonavir twice daily for 5 days oseltamivir 75 mg capsule 75 mg PO BID Qty: 10 0RF albuterol sulfate [Ventolin HFA] 90 mcg/actuation HFA aerosol inhaler 2 puff inhalation Q4H PRN PRN (Reason: Wheezing) Qty: 1 0RF Discontinued omeprazole 20 MG capsule 20 mg PO BID Patient Comments: REFLUX Primary Care Provider: Teresa Aguilar Referrals: Teresa Aguilar MD [Primary Care Provider] - 1 Week if not improving Print Language: Lithuanian Disposition Disposition: Home, Self Care What to do if you have Problems For any increased pain, shortness of breath, bleeding, nausea or vomiting, chestpain, or any unexpected problems, contact your Primary Care Provider. Call [facility] ([phone]) or report to the closest Emergency Room. Call 911 if necessary. 04/28/252207 <Electronically signed by Chester Alejandro MD> Cosigner Signature (if applicable): CC: Dr. Teresa Aguilar MD ~ Signed [facility] Work Phone: [phone]) 253-139107-18-2025 Instructions* Patient Instructions* Karin Lloyd APRN.CNP - 03/30/2025 10:19 AM EDT Stop using [...] 2 liters of oxygen with activity. I highlyrecommend this. Continue to wear 2 liters at night as well. Nicotine lozenge: Allow to dissolve between your gum and cheek, takes about 20- 30 minutes to dissolve. Try to minimize swallowing, it can cause stomach upset. Can use up to 20 lozenges a day, every 1-2 hours as needed. documented [facility] History of Present illness Narrative* Karin Lloyd APRN.WARD SERVICE SUPERVISOR - 03/30/2025 10:00 AM EDT Images from the original note [...] Has noted a gradual worsening in breathing sympto ms. Also has been frequently falling d/t feeling [...] Schizophrenia (HCC) follows with Dr Bill at [facility] Snoring Tobacco use disorder 1/2 ppd [...] Instructed to let the office know if shehas any issues obtaining Trelegy. Can use Advair discus and Spiriva. - continue Albuterol as needed. - needs to stop smoking. 2. Chronic hypoxemic respiratory failure (HCC) - ICD9: 518.83, 799.02, ICD10: J96.11 - currently wearing supplemental O2 at night only. - strongly encouraged 2L with activity. - [employer] 3. Current smoker - ICD9: 305.1, ICD10: [...] reviewed and edited and updated as necessary. Karin Lloyd APRN.NEAL I spent a total of 32 minutes on the date of the service which included preparing to see the patient, [id number] patient care, completing clinical documentation, performing a medically appropriate examination, counseling and educating the patient/family/caregiver, and ordering medications, tests,or procedures. documented in this encounterOhio [facility]25 NoteHNO ID: [id number] Author: KARIN LLOYD APRN.CNP Service: ? Author Type: Nurse [...] disorder Depression (non-psychotic) Lumbago Osteoarthritis Pulmonary embolus ([facility]) 25 years prior Schizophrenia ([facility]) follows with Dr Bill at [facility] Snoring Tobacco use disorder 1/2 ppd [...] Positive for cough, short (more content not included)...[facility]07-07-2025 NoteHNO ID: [id number] Author: MAIA BEASLEY PT Service: ? Author Type: Physical Therapist Type: Progress Notes Filed: 03/19/2025 09:23 Note Text: Episode Visit Count: 2 Therapist That Will Accept/Oversee The Plan Of Care: Robin Louis PT Start of Care Date: 03/14/25 [...] VISIT: Possibly request PT order to address 03/13- R shoulder pain. Continue static and dynamic [...] Gait belt utilized during session for safety. Self-Long Term Management: 1: reminded pt. balance exercises are [...] judgement. Billing Therapeutic Exercise (more content not included)...[facility] 03-19-2025 History of Present illness Narrative* Maia Beasley, PT - 03/19/2025 8:41 AM EDT Episode Visit Count: 2 Therapist That Will Accept/Oversee The Plan Of Care: Robin Louis PT Start of Care Date: 03/14/25 [...] the eyes are closed. Responds well to repeatedverbal cues. The patient will continue to benefit from ongoing skilled physical therapy to progresstoward set goals. PLAN FOR NEXT VISIT: Possibly request PT order to address 03/13- R shoulder pain. Continue static and dynamic balance. Safety awareness with gait and transfer sequence using rollator. Modify as needed due to R shoulder pain. Postural training to reduce strain on R shoulder with rollator use. SUBJECTIVE: Yesterday pt. had a fall just walking across the floor at her home. Pt. was not usingher rollator at the time and the fall [...] sec EC (moderate sway, self correcting posture withoutcue by 3rd trial) 4: semi tandem static [...] stand by assist during pre-gait/gait training to preventfalls and insure safety. Facilitated proper gait cycle with the use of verbal, visual, and tactile cues for correction of gait deviations identified in the objective section above. Gait belt utilized during session for safety. Self-Long Term Management: 1: reminded pt. balance exercises are [...] 920 Maia Beasley PT documented in this encounterOhio [facility]25 NoteHNO ID: [id number] Author: ROBIN LOUIS PT Service: ? Author Type: Physical Therapist Type: Progress Notes Filed: 03/14/2025 09:53 Note Text: Episode Visit Count: 1 Therapist That Will Accept/Oversee The Plan Of Care: Robin Louis PT Start of Care Date: 03/14/25 [...] tandem stance to reflect decreased fall risk. Bay in home exercise program including cardiovascular exercise. [...] Planned: 16 Planned Treatment Interventions: Therapeutic exercise (52785), Neuromuscular re-education (41656), Therapeutic activities (86157), Self-correction management (09674), Gait Training (75312), Patient/Family/Caregiver Education, Body Mechanics Training, General Conditioning, [...] score ranks in re (more content not included)...[facility]07-02-2025 History of Present illness Narrative* Robin Louis, PT - 03/14/2025 9:47 AM EDT Images from the original note were not included. Episode Visit Count: 1 Therapist That Will Accept/Oversee The Plan Of Care: Robin Louis PT Start of Care Date: 03/14/25 [...] tandem stance to reflect decreased fall risk. Bay in home exercise program including cardiovascular exercise. Patient will demonstrate independent and proper use of assisstive device to allow for improved walking quality and safety therefore reducing the risk of falls. Patient Goals: improve balance and safety with functional mobility. Time Frame for Goals and Treatment : 05/09/25 Planned Interventions, Frequency, and Duration: Current Frequency: 2x/week (Pt requests to start 1xweek secondary to transportation challenges) Duration: 8 weeks Total Number of Visits Planned: 16 Planned Treatment Interventions: Therapeutic exercise (81553), Neuromuscular re- education (65367), Therapeutic activities (39878), Self-correction management (86719), Gait Training (27215), Patient/Family/Caregiver Education, Body Mechanics Training, General Conditioning, [...] history of falls that indicate she will benefitfrom increased functional strength of LEs and trunk. [...] at home and only to the point offatigue. She was repeatedly advised that she should [...] guarding to prevent falls/increase patient safety with contactguard assistance, stand by assist to assist patient [...] Time (minutes): 33 Session Start Time : 0900 Session Stop Time : 932 Robin Louis PT documented in this encounterOhio [facility] Telephone encounter Note * Telephone Encounter - Iris Beach RN - 03/06/2025 5:57 PM EDT PATIENT NOTIFIED OF INFORMATION [facility]06-24-[facility] Miscellaneous Notes* Telephone Encounter - Iris Beach RN - 03/06/2025 5:57 PM EDT PATIENT NOTIFIED OF INFORMATION * Telephone Encounter - Lennie Khan MA - 03/06/2025 4:55 PM EDT Message left for pt to call back for results. Lennie Khan MA * Telephone Encounter - Teresa Aguilar MD - 03/06/2025 4:51 PM EDT Please notify patient that her lab work from last week looked OK; I do not see anything that would explain her dizziness. Teresa Aguilar MD documented in this encounterOhio [facility] University [facility]06-24-2025 Telephone encounter Note * Telephone Encounter - Lennie Khan MA - 03/06/2025 4:55 PM EDT Message left for pt to call back for results. Lennie Khan MA [facility]06[facility] Telephone encounter Note* Telephone Encounter - Teresa Aguilar MD - 03/06/2025 4:51 PM EDT Please notify patient that her lab work from last week looked OK; I do not see anything that would explain her dizziness. Teresa Aguilar MD [facility]06-23-[facility] Telephone encounter Note* Telephone Encounter - Teresa Aguilar MD - 03/05/2025 2:37 PM EDT OK to refill as ordered Teresa Aguilar MD [facility] Miscellaneous Notes* Telephone Encounter - Teresa Aguilar MD - 03/05/2025 2:37 PM EDT OK to refill as ordered Teresa Aguilar MD * Telephone Encounter - Nighat Hall RN - 03/05/2025 1:01 PM EDT The patient has been identified by [...] every 6 hours as needed (dizziness). Nighat Hall RN March 05, 2025 1:02 PM documented in this encounterOhio [facility]06-[facility] Telephone encounter Note * Telephone Encounter - Nighat Hall RN - 03/05/2025 1:01 PM EDT The patient has been identified by [...] every 6 hours as needed (dizziness). Nighat Hall RN March 05, 2025 1:02 PM [facility] Telephone encounter Note* Telephone Encounter - Hernesto Scott RN - 03/01/2025 1:20 PM EDT Arturo from [facility] called in and was requesting a refill on Pt's Cyclobenzaprine. I let her know that provider discontinued that on 02/27/25. She said she would remove it from Pt's medication list. Hernesto Scott RN [facility]06-[facility] Miscellaneous Notes* Telephone Encounter - Hernesto Scott RN - 03/01/2025 1:20 PM EDT Arturo from [facility] called in and was requesting a refill on Pt's Cyclobenzaprine. I let her know that provider discontinued that on 02/27/25. She said she would remove it from Pt's medication list. Hernesto Scott RN documented in this encounterOhio [facility] University [facility]06-19-2025 History of Present illness Narrative* Delmis Ramirez MRI Tech - 03/01/2025 7:00 AM EDT Radiology Service Progress Note PATIENT [...] Cane, Wheelchair, Crutches, etc.)? Yes, Patient High Riskfor Falls What interventions were put in place to prevent falls during this visit? Non- Skid Socks Used, Instructed Patient to Call for Help if Needed, Increased Observations by Caregivers, and walker PATIENT GENDER DATA: Assigned female at . status: : No status:NO. PATIENT RELEVANT IMPLANT DATA REVIEWED: Yes surgical hardware r shoulder PATIENT PRESENTS WITH AN IMPLANTABLE OR ATTACHED MACHINE JOINT CUTTER: No RADIOLOGY DEPARTMENT: MR; Exam(s) Completed: Head: cognitive impairment wo. Aromatherapy Administered: No PERIPHERAL IV DATA: Not applicable SIGNED BY: Delmis Ramirez A.A.S.,RT (R) (CT)(MR) March 01, 2025 7:35 AM documented in this encounterOhio State University [facility]06-19-2025 NoteHNO ID: [id number] Author: DELMIS RAMIREZ, bread icer Service: ? Author Type: Electrotyper Helper Type: Progress Notes Filed: 03/01/2025 07:41 Note [...] PATIENT PRESENTS WITH AN IMPLANTABLE OR ATTACHED MACHINE JOINT CUTTER: No RADIOLOGY DEPARTMENT: MR; Exam(s) Completed: Head: cognitive impairment wo. Aromatherapy Administered: No PERIPHERAL IV DATA: Not applicable SIGNED BY: Delmis Ramirez, FareedASandor,RT (R) (CT)(MR) March 01, 2025 7:[address] [facility]06-17-2025 History of Present illness Narrative* Teresa Aguilar MD - 02/27/2025 1:20 PM EDT Chief Complaint Patient presents with: Follow Up: dizziness HPI Albania Ramsey is a 64 year old female who presents here today for follow up. Smoking half ppd. Pt here for a follow up for dizziness which is getting worse. She states that she has had this for several months. Pt saw Emeli Spivey 02/06/25. At that time she complained of nausea and felt likeroom was spinning, each episode lasting around 30 minutes. Admits to having blurry vision occ in Right eye. Meclizine helps with the nausea. Memory: Follows with Neuro who ordered brain MRI. Pt has not completed yet. Has mentioned dizzinessin past visits with Neuro. Has also had low BP in past. [employer] notified PCP that pt is more unsteady and is declining cognitively. Emeli was waiting response from pt Psychiatrist about stopping the Prozosin to see if BP would improve. Psych called back and stated that she was told to stop that medication in Apr 2024 due to lowBP. Also pt is non-compliant with wearing her [...] Schizophrenia (HCC) follows with Dr Bill at [facility] Tobacco use disorder 1/2 ppd since [...] Past Histories independently gathered by the clinical senior safety support manager and the remaining scribed note accurately describes [...] PM. Lennie Khan MA documented in this encounterOhio State University [facility]06-17-2025 NoteHNO ID: [id number] Author: TERESA AGUILAR MD Service: ? Author [...] Has also had low BP in past. [employer] notified PCP that pt is more unsteady [...] Schizophrenia (HCC) follows with Dr Bill at [facility] Tobacco use disorder 1/2 ppd [...] daily at bedtime albuter (more content not included)...[facility]06-17-2025 Telephone encounter Note* Telephone Encounter - Josh Butterfield APRN.CNP - 02/27/2025 10:33 AM EDT The following approved medication requests [...] empty stomach, 1/2 hr before meal. Josh Butterfield APRN.CNP [facility]06-17-2025 Miscellaneous Notes* Telephone Encounter - Josh Butterfield APRN.CNP - 02/27/2025 10:33 AM EDT The following approved medication requests [...] empty stomach, 1/2 hr before meal. Josh Butterfield APRN.CNP * Telephone Encounter - Dilcia Gutierrez - 02/27/2025 9:12 AM EDT Prescription Refill Information The patient [...] 27, 2025 9:12 AM documented in this encounterOhio [facility]06-17-2025 Telephone encounter Note * Telephone Encounter - Dilcia Gutierrez - 02/27/2025 9:12 AM EDT Prescription Refill Information The patient [...] Dilcia Cintron February 27, 2025 9:12 AM [facility]06-12-20[facility] Telephone encounter Note* Telephone Encounter - Teresa Aguilar MD - 02/22/2025 11:46 AM EDT Noted Teresa Aguilar MD [facility]06-12-2025 Miscellaneous Notes* Telephone Encounter - Teresa Aguilar MD - 02/22/2025 11:46 AM EDT Noted Teresa Aguilar MD * Telephone Encounter - Nighat Hall RN - 02/22/2025 11:29 AM EDT Gale from [employer] in [place] calls and states that patient is going to daycare x 5 days a week. Patient is more unstable and they have noticed that patient is declining cognitively. Patient also hasbeen very unstable on her feet. Gale states that they will keep watching patient and let provider know if they see any more changes. Nighat Hall RN documented in this encounterOhio [facility]06-12-2025 Telephone encounter Note * Telephone Encounter - Nighat Hall RN - 02/22/2025 11:29 AM EDT Gale from [employer] in [place] calls and states that patient is going to daycare x 5 days a week. Patient is more unstable and they have noticed that patient is declining cognitively. Patient also hasbeen very unstable on her feet. Gale states that they will keep watching patient and let provider know if they see any more changes. Nighat Hall RN [facility]06-06-2025 Telephone encounter Note* Telephone Encounter - Emeli Spivey PA-C - 02/16/2025 9:43 AM EDT noted [facility]06-06-2025 Miscellaneous Notes* Telephone Encounter - Emeli Spivey PA-C - 02/16/2025 9:43 AM EDT noted * Telephone Encounter - Machelle Colon RN - 02/16/2025 9:09 AM EDT Patient returns call and message below reviewed. Patient reports she is not taking prazosin. Machelle Colon RN * Telephone Encounter - Hernesto Scott RN - 02/16/2025 8:36 AM EDT Called Pt and no answer. Pt did not have voicemail set up. Will need to call back. Hernesto Scott RN * Telephone Encounter - Emeli Spivey PA-C - 02/16/2025 8:22 AM EDT Please let patient know that per psych, she was told to stop prazosin back in April of 2024 due tolow BP. Have her make sure she is no longer on this medication since she told us she was still taking it. Then otherwise keep follow up with PCP to discuss her dizziness. . Emeli Spivey PA-C * Telephone Encounter - Barb Gross LPN - 02/15/2025 3:56 PM EDT Zainab LOVING from the [facility] returned call and said patient was having low blood pressure back in April and the prazosin was stopped then. * Telephone Encounter - Gia Solomon LPN - 02/12/2025 10:32 AM EDT Called counseling center again. 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 Was transferred to [facility]. Advised her of what office is needing to find out and also advised this nurse had sent a fax last week regarding this. She advises that the permanent mold supervisor is handling messages. She transferred this nurse to the medication line. This nurse left detailed message of information Emeli is wanting to find out regarding pt's medication. Asked that someone call back and speak with a Triage Nurse regarding this. Gia Solomon LPN * Telephone Encounter - Gia Solomon LPN - 02/08/2025 9:00 AM EDT Faxed a copy of Emeli's message to [facility] for Zainab to address d/t have not receiveda call back yet. Gia Solomon LPN * Telephone Encounter - Gia Solomon LPN - 02/06/2025 1:24 PM EDT Left message for Zainab's nurse Alivia to call for Emeli's message. does advise it may take 3 business days to address messages. Gia Solomon LPN * Telephone Encounter - Emeli Spivey PA-C - 02/06/2025 12:25 PM EDT Please contact [facility]. Patient sees Zainab and she has her on prazosin at night. Patient evaluated today for dizziness worse in morning and right before bed. Her BP in office was low and +orthostatic hypotension. Does shethink prazosin could be switched to something else or at least dose adjusted? Thanks. Emeli documented in this encounterOhio [facility]06-06-2025 Telephone encounter Note * Telephone Encounter - Machelle Colon RN - 02/16/2025 9:09 AM EDT Patient returns call and message below reviewed. Patient reports she is not taking prazosin. Machelle Colon RN [facility]06-06-2025 Telephone encounter Note* Telephone Encounter - Hernesto Scott RN - 02/16/2025 8:36 AM EDT Called Pt and no answer. Pt did not have voicemail set up. Will need to call back. Hernesto Scott RN [facility]06-06-2025 Telephone encounter Note* Telephone Encounter - Emeli Spivey PA-C - 02/16/2025 8:22 AM EDT Please let patient know that per psych, she was told to stop prazosin back in April of 2024 due tolow BP. Have her make sure she is no longer on this medication since she told us she was still taking it. Then otherwise keep follow up with PCP to discuss her dizziness. . Emeli Spivey PA-C [facility]06-05-2025 Telephone encounter Note* Telephone Encounter - Barb Gross LPN - 02/15/2025 3:56 PM EDT Zainab LOVING from the [facility] returned call and said patient was having low blood pressure back in April and the prazosin was stopped then. [facility]06-02-2025 Telephone encounter Note* Telephone Encounter - Gia Solomon LPN - 02/12/2025 10:32 AM EDT Called counseling center again. 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 Was transferred to [facility]. Advised her of what office is needing to find out and also advised this nurse had sent a fax last week regarding this. She advises that the permanent mold supervisor is handling messages. She transferred this nurse to the medication line. This nurse left detailed message of information Emeli is wanting to find out regarding pt's medication. Asked that someone call back and speak with a Triage Nurse regarding this. Gia Solomon LPN [facility]05-29-2025 Telephone encounter Note* Telephone Encounter - Gia Solomon LPN - 02/08/2025 9:00 AM EDT Faxed a copy of Emeli's message to [facility] for Zainab to address d/t have not receiveda call back yet. Gia Solomon LPN [facility]05-27-2025 Telephone encounter Note* Telephone Encounter - Blossom Ivan MA - 02/06/2025 1:26 PM EDT Please assist pt to schedule MRIs ordered. Blossom Ivan MA T [facility]05-27-2025 Miscellaneous Notes* Telephone Encounter - Blossom Ivan MA - 02/06/2025 1:26 PM EDT Please assist pt to schedule MRIs ordered. Blossom Ivan MA * Telephone Encounter - Emeli Spivey PA-C - 02/06/2025 1:12 PM EDT Patient needs help getting neurology work up scheduled. (MRIs) documented in this encounterOhio [facility]05-27-2025 Telephone encounter Note * Telephone Encounter - Gia Solomon LPN - 02/06/2025 1:24 PM EDT Left message for Zainab's nurse Alivia to call for Emeli's message. does advise it may take 3 business days to address messages. Gia Solomon LPN [facility]05-27-2025 Telephone encounter Note* Telephone Encounter - Emeli Spivey PA-C - 02/06/2025 1:12 PM EDT Patient needs help getting neurology work up scheduled. (MRIs) [facility] Telephone encounter Note* Telephone Encounter - Emeli Spivey PA-C - 02/06/2025 12:25 PM EDT Please contact [facility]. Patient sees Zainab and she has her on prazosin at night. Patient evaluated today for dizziness worse in morning and right before bed. Her BP in office was low and +orthostatic hypotension. Does shethink prazosin could be switched to something else or at least dose adjusted? Keli. Emeli [facility]05-27-2025 NoteHNO ID: [id number] Author: EMELI SPIVEY PA-C Service: ? Author Type: Physician Planning Aide Type: Progress Notes Filed: 02/06/2025 13:06 Note [...] Schizophrenia (HCC) follows with Dr Bill at [facility] Tobacco use disorder 1/2 ppd [...] 1/2 hr befor (more content not included)... [facility]05-27-2025 History of Present illness Narrative* Emeli Spivey PA-C - 02/06/2025 11:43 AM EDT Chief Complaint Patient presents with: Dizziness: X 1 month HPI Albania Ramsey is a 64 year old female who presents here today for dizziness x1 mon daily. States she feels like the room is spinning and is nauseous with each episode. Lasts about 30 min each. Denies hearing loss or tinnitus. Nothing makes it worse, meclizine helps some with the nausea. Has blurryvision occasionally in the R. Denies new meds [...] years. Her BP has also been on thelow end the past few years and in [...] Schizophrenia (HCC) follows with Dr Bill at [facility] Sn[facility] Tobacco use disorder 1/2 ppd since [...] BP Cuff Size: Regular Adult) Pulse 110 Temp37.2 C (98.9 F) Resp 16 Wt 52.6 [...] and examined the patient and performed the medical- decision making components. I have reviewed the Physician Planning Aide (PA) student's documentation and verified the findings inthe note as written. Any additions or changes are noted in bold/italics. Emeli Spivey PA-C documented in this encounterOhio State University [facility]05-27-2025 Telephone encounter Note * Telephone Encounter - Anna Edmonds RN - 02/06/2025 9:32 AM EDT Protocol recommends see provider within 24 hours. Pt booked for an appt with Emeli Spivey at 1140 am today. Pt is currently at [facility]. States she is outside. Pt has COPD and is on O2 continuously at 2L/NC. Asked pt to contact a nurse to check her BP, P and oxygen level. Pt states nurse is not around. Called [facility] and for nurse to take pt's VS and call us back with those. Lost the call during conversation. Called and spoke with Osvaldo with transportation with [employer] and asked if he could get pt [...] has NOT been evaluated by doctor (or SENIOR SOFTWARE TESTER/PA) for this (Exception: Dizziness caused by heat exposure, sudden standing, or poor fluid intake.) Answer Assessment - Initial Assessment Questions 1. DESCRIPTION: feels dizzy when she gets up every morning and every evening for about a week. Currently states the dizziness is almost gone. States she also sees spots in her right eye only when shehas the dizziness. No spots at this time. Some days the dizziness lasts only about 30 mins and somedays (states approx 2-3 of the past week), [...] Ferrer in the past and was prescribed Meclizinewhich she took this morning at 730 am. Dizziness started at 7 am today. Meclizine helps some. Appears pt was initially prescribed Meclizine from the ER in 09/2023. Pt continued asking for refills through 07/2024. Then did not ask again for refills until 12/2024. Appears pt has dizzy spells routinely. 10. OTHER SYMPTOMS: Denies fever, chest pain, vomiting, diarrhea, or any unusual bleeding. Just thespots in front of right eye. Protocols used: Dizziness - [id number] [facility]05-27-2025 Miscellaneous Notes* Telephone Encounter - Anna Edmonds RN - 02/06/2025 9:32 AM EDT Protocol recommends see provider within 24 hours. Pt booked for an appt with Emeli Spivey at 1140 am today. Pt is currently at [facility]. States she is outside. Pt has COPD and is on O2 continuously at 2L/NC. Asked pt to contact a nurse to check her BP, P and oxygen level. Pt states nurse is not around. Called [facility] and for nurse to take pt's VS and call us back with those. Lost the call during conversation. Called and spoke with Osvaldo with transportation with [employer] and asked if he could get pt [...] has NOT been evaluated by doctor (or SENIOR SOFTWARE TESTER/PA) for this (Exception: Dizziness caused by heat exposure, sudden standing, or poor fluid intake.) Answer Assessment - Initial Assessment Questions 1. DESCRIPTION: feels dizzy when she gets up every morning and every evening for about a week. Currently states the dizziness is almost gone. States she also sees spots in her right eye only when shehas the dizziness. No spots at this time. Some days the dizziness lasts only about 30 mins and somedays (states approx 2-3 of the past week), [...] Ferrer in the past and was prescribed Meclizinewhich she took this morning at 730 am. Dizziness started at 7 am today. Meclizine helps some. Appears pt was initially prescribed Meclizine from the ER in 09/2023. Pt continued asking for refills through 07/2024. Then did not ask again for refills until 12/2024. Appears pt has dizzy spells routinely. 10. OTHER SYMPTOMS: Denies fever, chest pain, vomiting, diarrhea, or any unusual bleeding. Just thespots in front of right eye. Protocols used: Dizziness - [id number] documented in this encounterOhio State University [facility]05-19-2025 Telephone encounter Note * Telephone Encounter - Josh Butterfield APRN.CNP - 01/29/2025 10:44 AM EDT The following approved medication requests have been transmitted electronically. Requested Prescriptions Pending Prescriptions Disp Refills meloxicam (MOBIC) 7.5 mg tablet 30 tablet 2 Sig: Take 1 tablet by mouth once daily. Josh Butterfield APRN.CNP [facility]05-19-2025 Miscellaneous Notes* Telephone Encounter - Josh Butterfield APRN.CNP - 01/29/2025 10:44 AM EDT The following approved medication requests have been transmitted electronically. Requested Prescriptions Pending Prescriptions Disp Refills meloxicam (MOBIC) 7.5 mg tablet 30 tablet 2 Sig: Take 1 tablet by mouth once daily. Josh Butterfield APRN.CNP * Telephone Encounter - Kathi Felder LPN - 01/29/2025 10:32 AM EDT Prescription Refill Information The patient [...] 1 tablet by mouth once daily. Kathi eFlder LPN January 29, 2025 10:33 AM documented in this encounterOhio State University [facility]05-[facility]-2025 Telephone encounter Note * Telephone Encounter - Kathi Felder LPN - 01/29/2025 10:32 AM EDT Prescription Refill Information The patient [...] Felder LPN January 29, 2025 10:33 AM [facility]05-08-2025 Telephone encounter Note* Telephone Encounter - Lennie Khan MA - 01/18/2025 10:31 AM EDT Faxed. Lennie Khan MA [facility]05-08-2025 Miscellaneous Notes* Telephone Encounter - Lennie Khan MA - 01/18/2025 10:31 AM EDT Faxed. Lennie Khan MA * Telephone Encounter - Chaparro Christianson MA - 01/16/2025 2:55 PM EDT Type of form: 90 day order for [facility] Form received via fax When form is completed, Fax form to [phone] Form has been forwarded to Physician Desk: Dr. Lauren Christianson MA documented in this encounterOhio State University [facility]05-06-2025 Telephone encounter Note * Telephone Encounter - Chaparro Christianson MA - 01/16/2025 2:55 PM EDT Type of form: 90 day order for [facility] Form received via fax When form is completed, Fax form to [phone] Form has been forwarded to Physician Desk: Dr. Lauren Christianson MA [facility]05-01-2025 Telephone encounter Note* Telephone Encounter - Lennie Khan MA - 01/11/2025 10:03 AM EDT faxed [facility]-01-[facility] Miscellaneous Notes* Telephone Encounter - Lennie Khan MA - 01/11/2025 10:03 AM EDT faxed * Telephone Encounter - Lennie Khan MA - 01/04/2025 12:06 PM EDT Type of letter/form/fax request - order for [employer]/area agency on aging Form received from fax on 1 floor and placed on MD desk (Dr. Aguilar) for completion. Completed form needs to be faxed to [phone]. Route to [place] when form completed for processing documented in this encounterOhio State University Wexner [facility] Tele[facility] encounter Note * Telephone Encounter - Lennie Khan MA - 01/04/2025 12:06 PM EDT Type of letter/form/fax request - order for PASSPORT/area agency on aging Form received from fax on 1 floor and placed on MD desk (Dr. Aguilar) for completion. Completed form needs to be faxed to [phone]. Route to [place] when form completed for processing [facility]04-22-2025 Telephone encounter Note* Telephone Encounter - Josh Butterfield APRN.CNP - 01/02/2025 9:38 AM EDT The following approved medication requests have been transmitted electronically. Requested Prescriptions Pending Prescriptions Disp Refills cyclobenzaprine (FLEXERIL) 10 mg tablet 42 tablet 5 Sig: Take 1 tablet by mouth three times a day. Josh Butterfield APRN.CNP [facility]04-22-2025 Miscellaneous Notes* Telephone Encounter - Josh Butterfield APRN.CNP - 01/02/2025 9:38 AM EDT The following approved medication requests have been transmitted electronically. Requested Prescriptions Pending Prescriptions Disp Refills cyclobenzaprine (FLEXERIL) 10 mg tablet 42 tablet 5 Sig: Take 1 tablet by mouth three times a day. Josh Butterfield APRN.CNP * Telephone Encounter - Dilcia Gutierrez - 01/02/2025 9:12 AM EDT Prescription Refill Information The patient [...] 02, 2025 9:12 AM documented in this encounterOhio [facility]04[facility]25 Telephone encounter Note * Telephone Encounter - Dilcia Gutierrez - 01/02/2025 9:12 AM EDT Prescription Refill Information The patient [...] Dilcia Cintron January 02, 2025 9:12 AM [facility]04-18-2025 Telephone encounter Note* Telephone Encounter - Brisa Clarke OCCA - 12/29/2024 11:41 AM EDT TC to patient who verbalized understanding of providers message below. SHYLA Burrell [facility]04-18-2025 Miscellaneous Notes* Telephone Encounter - Brisa Clarke OCCA - 12/29/2024 11:41 AM EDT TC to patient who verbalized understanding of providers message below. SHYLA Burrell * Telephone Encounter - Brisa Clarke OCCA - 12/22/2024 9:05 AM EDT TC to patient with no answer. Unable to leave d/t mailbox not set up. Please try again later. SHYLA Burrell * Telephone Encounter - Brisa Clarke OCCA - 12/22/2024 9:04 AM EDT ----- Message from Cora Gil PA-C sent at 12/21/2024 10:37 AM EDT ----- Labs showing elevated blood sugar A1c, would recommend following with primary care for further monitoring. Cora Gil PA-C documented in this encounterOhio [facility]04-11-2025 Telephone encounter Note * Telephone Encounter - Brisa Clarke OCCA - 12/22/2024 9:05 AM EDT TC to patient with no answer. Unable to leave d/t mailbox not set up. Please try again later. SHYLA Burrell [facility]04-11-2025 Telephone encounter Note* Telephone Encounter - Brisa Clarke OCCA - 12/22/2024 9:04 AM EDT ----- Message from Cora Gil PA-C sent at 12/21/2024 10:37 AM EDT ----- Labs showing elevated blood sugar A1c, would recommend following with primary care for further monitoring. Cora Gil PA-C [facility]04-08-2025 NoteHNO ID: [id number] Author: CORA GIL PA-C Service: ? Author Type: Physician Planning Aide Type: Progress Notes Filed: 12/19/2024 15:41 Note Text: [facility] Name: Albania Ramsey [...] Will start a c (more content not included)...[facility] 12-19-2024 History of Present illness Narrative* Cora Gil PA-C - 12/19/2024 2:30 PM EDT Images from the original note were not included. [facility] Name: Albania Ramsey Age: [age] year old Gender: female Primary Care Provider: Teresa Aguilar MD Consult requested for memory loss and falls by Nga Ferrer. Recommendations will be communicatedvia shared medical record or US mail. Chief [...] visit, does not remember previous issues with fallsor memory concerns. States that she has had [...] of 08/08. Throughout the appointment, patient had difficultymaintaining eye contact and was constantly moving on her chair, shifting. Denies any substance use or alcohol, but states she is slightly anxious. Has history of bipolar disorder and possibly schizoph lacy and is on Zoloft, Lamictal and Seroquel. [...] within a normal BMI. Will continue to mo nitor. Patient agreeable to treatment plan of care [...] that she trips easily. Will start a conversationand will get lost on what words to use next. Has been forgetful at home, left the stove on. Woke upin the middle night naked, family found her [...] this was in 2010. Denies any new bowelor bladder incontinence or saddle anesthesia. Previously followed by pain management for lower backpain, last seen in 2022. Denies any dizziness, [...] mood medications including Zoloft, Seroquel and Lamictal. Patientdoes appear very anxious in the appointment today and she admits to some anxiety. Denies any substance use or alcohol use. Denies any stove on, able to pay her bills without any issue. Is no longer driving. Currently lives alone in an apartment and does not have any visitors. Has an elevator. Notesthat her appetite is okay and denies any [...] Pulmonary embolus (HCC) 25 years prior Schizophrenia ([facility]) follows with Dr Bill at [facility] Snoring Tobacco use disorder 1/2 ppd [...] questions. Clock draw: 09/15 Namin/3 Instant recall: 10/18, not graded Attention: 09/17 Language: 02 Abstraction: 1 Delayed recall: 05 Orientation: 02/16 08/08 Psych: Has difficulty answering [...] great toe and lower extremities, worse on theright. Coordination: Normal finger to nose and heel [...] (Final result) This note was dictated using Quickshift speech recognition software and may contain some errors that were a result of the program not accurately transcribing what was dictated, despite efforts to make corrections. Note that unless urgent, test and MRI results will be discussed at next follow- up visit. PROMIS (Patient-Reported Outcomes Measurement Information System) [...] which included preparing to see the patient, rrar-fl-iyqa patient care, completing clinical documentation, obtaining and/or reviewing separately obtained history, performing a medically appropriate examination, counseling and educating the pat ient/family/caregiver, and ordering medications, tests, or procedures. The patient consented to the use of [employer] software for draft documentation of the visit consistent with [facility] s Notice of Privacy Practices. documented in this encounterOhio [facility]04-07-2025 Telephone encounter Note * Telephone Encounter - Elderbrock, Teresa D, MD - 12/18/2024 6:08 PM EDT OK to refill as ordered Teresa Aguilar MD [place] [address]-07-2025 Miscellaneous Notes* Telephone Encounter - Teresa Aguilar MD - 12/18/2024 6:08 PM EDT OK to refill as ordered Teresa Aguilar MD * Telephone Encounter - Chaparro Christianson MA - 12/18/2024 3:53 PM EDT Prescription Refill Information The patient has [...] mouth every 6 hours as needed (dizziness). Chaparro Christianson MA December 18, 2024 3:53 PM * Telephone Encounter - Ashia Wesley - 12/18/2024 3:40 PM EDT [facility] pharmacy is calling Teresa Aguilar MD today to request a medication not on current med list Meclizine 25 mg tablet taking one by mouth every 6 hrs as needed #40 5 refills Pharmacy -[facility] Patient has been identified by name and birthdate. Duration of symptoms: N/A Person calling: pharmacy: [facility] Call patient at: at home [phone] (home) [phone] (cell) Was an appointment scheduled: No Closing statement: Results or non-symptom based questions: Thank you for calling [facility], your call will be returned within the next business day. Ashia Zurita documented in this encounterOhio [facility]04-07-2025 Telephone encounter Note * Telephone Encounter - Chaparro Christianson MA - 12/18/2024 3:53 PM EDT Prescription Refill Information The patient has [...] mouth every 6 hours as needed (dizziness). Chaparro Christianson MA December 18, 2024 3:53 PM [facility]04-07-2025 Telephone encounter Note* Telephone Encounter - Ashia Wesley - 12/18/2024 3:40 PM EDT [facility] pharmacy is calling Teresa Aguilar MD today to request a medication not on current med list Meclizine 25 mg tablet taking one by mouth every 6 hrs as needed #40 5 refills Pharmacy -[facility] ([facility]) Patient has been identified by name and birthdate. Duration of symptoms: N/A Person calling: pharmacy: [facility] Call patient at: at home [phone] (home) [phone] (cell) Was an appointment scheduled: No Closing statement: Results or non-symptom based questions: Thank you for calling [facility], your call will be returned within the next business day. Ashia Zurita [facility]03-13-2025 Telephone encounter Note* Telephone Encounter - Lennie Khan MA - 11/23/2024 11:46 AM EDT Pt was in for OV with Nga today and asked about her disability paperwork. Our office has not received any disability paperwork. Called and spoke with pt, she stated that the letter Nga wrote for her yesterday 11/22/24 should be all that is needed. Nothing further needed at this time. Lennie Khan MA [facility]03-13-2025 Miscellaneous Notes* Telephone Encounter - Lennie Khan MA - 11/23/2024 11:46 AM EDT Pt was in for OV with Nga today and asked about her disability paperwork. Our office has not received any disability paperwork. Called and spoke with pt, she stated that the letter Nga wrote for her yesterday 11/22/24 should be all that is needed. Nothing further needed at this time. Lennie Khan MA documented in this encounterOhio [facility] University [facility]03-12-2025 History of Present illness Narrative* Nga Ferrer APRN.NEAL - 11/22/2024 2:40 PM EDT This is a 63 year old [...] Following with Dr. Husain, pain management in [place]. Not taking medication at this time. Has [...] Schizophrenia (HCC) follows with Dr Bill at [facility] Tobacco use disorder 1/2 ppd since [...] hours as needed for up to 10 doses.(Patient not taking: Reported on 06/09/2024) pantoprazole DR [...] V03.89, ICD10: Z23 - VIS provided. - PFIZER-BIONTECH COVID-19 VACCINE AGE 12+ YR (COM[place]NATY) Follow-up as needed. Discussed treatment plan and patient voices understanding. Patient's questions answered appropriately. Medications and potential side effects were discussed and patient voices understanding. Nga Ferrer APRN.NEAL This note was partially generated using Quickshift voice recognition system. Note was reviewed for accuracy. There may be minor misspellings or grammar miscues with Quickshift voice recognition. documented in this encounterOhio State University [facility]03-12-2025 NoteHNO ID: [id number] Author: NGA FERRER APRN.NEAL Service: ? Author Type: Nurse Practitioner [...] Following with Dr. Husain, pain management in [place]. Not taking medication at this time. Has [...] Schizophrenia (HCC) follows with Dr Bill at [facility] Snoring Tobacco use disorder 1/2 ppd since [...] Mother other (Bleeding disorder (more content not included)...[facility]03-12-2025 Instructions* Patient Instructions* Nga Ferrer APRN.WARD SERVICE SUPERVISOR - 11/22/2024 2:19 PM EDT Office will check with PCP about disability papers. Letter provided for housing Recommend scheduling consult with Neurology Covid booster given today. documented in this encounterOhio [facility] University [facility]02-27-2025 Telephone encounter Note * Telephone Encounter - Miriam Arciniega LPN - 11/09/2024 8:12 AM EST Spoke pt and scheduled her for an office visit to discuss getting a letter for housing. Miriam Arciniega LPN [facility]02-27-2025 Miscellaneous Notes* Telephone Encounter - Miriam Arciniega LPN - 11/09/2024 8:12 AM EST Spoke pt and scheduled her for an office visit to discuss getting a letter for housing. Miriam Arciniega LPN * Telephone Encounter - Miriam Arciniega LPN - 11/02/2024 8:07 AM EST Please advise pt if you are willing to do the letter for her. Miriam Arciniega LPN * Telephone Encounter - Miriam Arciniega LPN - 10/20/2024 9:05 AM EST Pt calling to check status on letter. Please advise pt. Miriam Arciniega LPN * Telephone Encounter - Miriam Arciniega LPN - 10/17/2024 2:58 PM EST Pt calling for letter that she needs to get into [employer] [facility] because she is disabled due to her back. [facility] FAX: [phone]. Please advise pt when this is done or if there is any problem. Miriam Arciniega LPN documented in this encounterOhio State University [facility]02-24-2025 Telephone encounter Note * Telephone Encounter - Teresa Aguilar MD - 11/06/2024 2:30 PM EST OK to refill as ordered Teresa Aguilar MD [facility]02-24-2025 Miscellaneous Notes* Telephone Encounter - Teresa Aguilar MD - 11/06/2024 2:30 PM EST OK to refill as ordered Teresa Aguilar MD * Telephone Encounter - Liza Gregg RN - 11/06/2024 2:22 PM EST The patient has been identified [...] 06, 2024 2:23 PM documented in this encounterOhio State University [facility]02-24-2025 Telephone encounter Note * Telephone Encounter - Liza Gregg RN - 11/06/2024 2:22 PM EST The patient has been identified [...] Gregg RN November 06, 2024 2:23 PM [facility]02-20-2025 Telephone encounter Note* Telephone Encounter - Miriam Arciniega LPN - 11/02/2024 8:07 AM EST Please advise pt if you are willing to do the letter for her. Miriam Arciniega LPN [facility]02-07-2025 Telephone encounter Note* Telephone Encounter - Miriam Arciniega LPN - 10/20/2024 9:05 AM EST Pt calling to check status on letter. Please advise pt. Miriam Arciniega LPN [facility]02-06-2025 Telephone encounter Note* Telephone Encounter - Teresa Aguilar MD - 10/19/2024 2:59 PM EST OK to refill as ordered Teresa Aguilar MD [facility]02-06-2025 Miscellaneous Notes* Telephone Encounter - Teresa Aguilar MD - 10/19/2024 2:59 PM EST OK to refill as ordered Teresa Aguilar MD * Telephone Encounter - Cathy Perez RN - 10/13/2024 12:44 PM EST Received call from [facility] for refill of flexeril for pt. Left voicemail for pt's son Josh Ramsey to call office back, to give update on patient's condition before submitting refill requestfor flexeril to provider. Per CHONG on 06/09/24 patient had cognitive impairment, history of falls andfailed her mini cognition test. Multiple testing was ordered at that time. Pt was to complete brainMRI. Has cancelled various appts, including Neurology appt. [...] day. Cathy Perez RN documented in this encounterOhio State University [facility]02-04-2025 Telephone encounter Note * Telephone Encounter - Miriam Arciniega LPN - 10/17/2024 2:58 PM EST Pt [facility]. [facility] FAX: [phone]. Please advise pt when this is done or if there is any problem. Miriam Arciniega LPN [facility]01-31-2025 Telephone encounter Note* Telephone Encounter - Cathy Perez RN - 10/13/2024 12:44 PM EST Received call from [facility] for refill of flexeril for pt. Left voicemail for pt's son Josh Ramsey to call office back, to give update on patient's condition before submitting refill requestfor flexeril to provider. Per CHONG on 06/09/24 patient had cognitive impairment, history of falls andfailed her mini cognition test. Multiple testing was ordered at that time. Pt was to complete brainMRI. Has cancelled various appts, including Neurology appt. [...] three times a day. Cathy Perez RN [facility]01-27-2025 Telephone encounter Note* Telephone Encounter - Chaparro Christianson MA - 10/09/2024 4:49 PM EST Form signed and faxed back to information below. Chaparro Christianson MA [facility]01-27-2025 Miscellaneous Notes* Telephone Encounter - Chaparro Christianson MA - 10/09/2024 4:49 PM EST Form signed and faxed back to information below. Chaparro Christianson MA * Telephone Encounter - Lennie Khan MA - 10/09/2024 1:40 PM EST Type of letter/form/fax request - Plan of Treatment for Adult day care Form received from fax on 1 floor and placed on MD desk (Dr. Aguilar) for completion. Completed form needs to be faxed to [facility] at [phone]. Route to [place] when form completed for processing documented in this encounterOhio State University [facility]01-27-2025 Telephone encounter Note * Telephone Encounter - Lennie Khan MA - 10/09/2024 1:40 PM EST Type of letter/form/fax request - Plan of Treatment for Adult day care Form received from fax on 1 floor and placed on MD desk (Dr. Aguilar) for completion. Completed form needs to be faxed to [facility] at [phone]. Route to [place] when form completed for processing [facility]01-06-2025 Telephone encounter Note* Telephone Encounter - Josh Butterfield APRN.CNP - 09/18/2024 12:24 PM EST The following approved medication requests have been transmitted electronically. Requested Prescriptions Pending Prescriptions Disp Refills fluticasone-salmeterol (ADVAIR DISKUS) 250-50 mcg/dose inhaler 60 Each 11 Sig: Inhale 1 Puff as instructed two times a day. Josh Butterfield APRN.CNP [facility]01-06-2025 Miscellaneous Notes* Telephone Encounter - Josh Butterfield APRN.CNP - 09/18/2024 12:24 PM EST The following approved medication requests have been transmitted electronically. Requested Prescriptions Pending Prescriptions Disp Refills fluticasone-salmeterol (ADVAIR DISKUS) 250-50 mcg/dose inhaler 60 Each 11 Sig: Inhale 1 Puff as instructed two times a day. Josh Butterfield APRN.CNP * Telephone Encounter - Monik Gunter - 09/18/2024 11:45 AM EST Patient has been identified by name and date of : Yes, Pharmacy phones for refill(s): Requested Prescriptions Pending Prescriptions Disp Refills fluticasone-salmeterol (ADVAIR DISKUS) 250-50 mcg/dose inhaler 60 Each 11 Date of last office visit in primary care: 06/09/2024 Date of next office visit in primary care: Visit date not found Please advise. Thank you. Monik Gunter. documented in this encounterOhio State University [facility]01-06-2025 Telephone encounter Note * Telephone Encounter - Monik Gunter - 09/18/2024 11:45 AM EST Patient has been identified by name and date of : Yes, Pharmacy phones for refill(s): Requested Prescriptions Pending Prescriptions Disp Refills fluticasone-salmeterol (ADVAIR DISKUS) 250-50 mcg/dose inhaler 60 Each 11 Date of last office visit in primary care: 06/09/2024 Date of next office visit in primary care: Visit date not found Please advise. Thank you. Monik Gunter. [facility]12-26-2024 Hospital Discharge instructions Patient Education 09/07/2024 19:12:50 [...] can include bending forward, getting up from aseated position, coughing, or sneezing. It may also [...] bed rest and pain medicine. Prescription or qtrf-coe-xlgkasv pain medicine can be used to control [...] pain by limiting motion at the site ofthe break. If you have osteoporosis, talk with [...] the broken vertebra. This will expand it netbackup engineer to its original shape. Home care You may need to stay in bed for the first few days. But, start sitting or walking as soon as possible. This will help prevent problems with prolonged bed rest such as: muscle weakness, worsening backstiffness and pain, and blood clots in the [...] 3 to 6 hours. You should do thisfor the first 24 to 48 hours. You [...] or spreads to your arms or legs. 4702-3467 [employer] [address] [place] [address], [place] [address]. All rights reserved. This information is not intended as a substitute for professional medical care. Always follow yourhealthcare professional's instructions. 09/07/2024 18:36:39 Back Pain (Acute or Chronic) Back Pain (Acute or Chronic) Back pain is one of the most common problems. The good news is that most people feel better in 1 to2 weeks, and most of the rest in [...] muscles or spine cause the pain. Mechanical problemsare usually caused by an injury to the [...] your side with your knees bent up towardsyour chest and a pillow between your knees. [...] are taking other medicines. You may use yohl-twx-peunauo medicine as directed on the bottle to control pain, unless another pain medicine was prescribed. If you have chronic conditions like diabetes, liver or kidney disease, stomach ulcers, or gastrointestinal bleeding, or are taking blood thinners, talk to your doctor beforetaking any medicine. Be careful if you are [...] Numbness in the groin or genital area 4516-0410 [employer] [address] [place] [address]. All rights reserved. This information is not intended as a substitute for professional medical care. Always follow yourhealthcare professional's instructions. Follow Up Care 09/07/2024 16:19:27 With:Your back doctor or Dr. Morales Address:Unknown When:2-4 days Comments:Schedule appointment as soon as possibleYou have a compression fracture of your second lumbar vertebraUse walker at all times until seenTake aixh-wdk-qqhmldv Colace and Metamucil or Benefiber twice daily if taking pain medicineReturn to ED if symptoms worsenLimit activityStop smokingMay use TylenolTake Naprosyn with foodDo not drive or operate machinery within 8 hours of using cyclobenzaprineFollow-up for recheckReturn for loss of bowel or bladder function leg weakness or numbness With:TERESA MORALES Address: [address] [facility] [place], [place] [address]- [phone] Business (1) When:2-4 days Comments:Schedule appointment as soon as possibleReturn to ED if symptoms worsenSee other instructions underyour back doctor or Dr. Morales With:TERESA AGUILAR Address: [address] [place] [address]- Business (1) When:2-4 days Comments:Schedule appointment as soon as possibleReturn to ED if symptoms worsen [facility] 12-26-2024 Note Discharge Instructions Thank you for allowing [facility] to assist you with your healthcare needs. [...] walker at all times until seen Take wxmy-dvo-harjpfy Colace and Metamucil or Benefiber twice daily [...] with TERESA MORALES When:Within 2-4 days Where:[address] [facility] [place] [address]- [phone] Business (1) Additional Information: Schedule appointment as soon as possible Return to ED if symptoms worsen See other instructions under your back doctor or Dr. Morales Follow Up with TERESA AGUILAR When:Within 2-4 days Where:[address] [place] [address]- [facility] (1) Additional Information: Schedule appointment [...] take with food Printed Prescription Changed acetaminophen-hydrocodone (Corona 325- 5 mg oral tablet) 1 tab(s) [...] can include bending forward, getting up from aseated position, coughing, or sneezing. It may also [...] bed rest and pain medicine. Prescription or gtyw-gyu-bxxwhmc pain medicine can be used to control [...] pain by limiting motion at the site ofthe break. If you have osteoporosis, talk with [...] the broken vertebra. This will expand it netbackup engineer to its original shape. Home care You may need to stay in bed for the first few days. But, start sitting or walking as soon as possible. This will help prevent problems with prolonged bed rest such as: muscle weakness, worsening backstiffness and pain, and blood clots in the [...] 3 to 6 hours. You should do thisfor the first 24 to 48 hours. You [...] or spreads to your arms or legs. [id number] [employer]. [address] [place] [address]. All rights reserved. This information is not intended as a substitute for professional medical care. Always follow yourhealthcare professional's instructions. Back Pain (Acute or Chronic) Back pain is one of the most common problems. The good news is that most people feel better in 1 to2 weeks, and most of the rest in [...] muscles or spine cause the pain. Mechanical problemsare usually caused by an injury to the [...] your side with your knees bent up towardsyour chest and a pillow between your knees. [...] are taking other medicines. You may use xyhn-izc-qajrcux medicine as directed on the bottle to control pain, unless another pain medicine was prescribed. If you have chronic conditions like diabetes, liver or kidney disease, stomach ulcers, or gastrointestinal bleeding, or are taking blood thinners, talk to your doctor beforetaking any medicine. Be careful if you are [...] Numbness in the groin or genital area [phone] [employer] [place] [address]. All rights reserved. This information is not intended as a substitute for professional medical care. Always follow yourhealthcare professional's instructions. Additional Information VACCINATE! IT SAVES LIVES! Members of the community who have not yet received the COVID-19 vaccine and would like to receive it can visit one of [facility] vaccine clinics. There are many vaccine clinic locations within the [facility]. For locations and available times, please visit www.[email or web address].[place].gov/. It is important to note that some COVID mobile vaccine clinics are held outdoors and may be canceled in rainy or stormy conditions. To learn more about pediatric vaccinations (ages 5-11), we invite you to visit the [facility] webpage. https://www.[email or web address].org/pages/7520-Turqn-Hrzhjrwhtzr-Eiiutysuaj-Anyle-Ood stions.htmlTo learn more about the COVID-19 vaccine, we invite you to visit the CDC website for a list of frequently asked questions. https://www.cdc.gov/coronavirus/2019-ncov/vaccines/faq.html [facility] Patient Portal Access Instructions: Stay connected with your healthcare team and access your personal medical information anytime with the [facility] Patient Portal. If you would like a full copy of your medical records please contact the [facility] Medical Records Department Wednesday through Wednesday between 8a.m. and 4:30p.m. Please follow the directions below to access the portal: 1.Access the email account you provided upon registration to the [facility].2.Look for an invitation email from [facility].3.Open the email and access the invitation link: Accept Invitation to [facility]4.Fill in the required hester to create your account. Sign into www.Pocketbook with your username and password that you [...] you will allow to register on the [facility] Patient Portal for access to your information. You can also access the [facility] Patient Portal on the [employer] nghia. Simply click on Health Records under [employer] and then click on the [facility] logo. HOW TO SAFELY DISPOSE OF PRESCRIPTION [...] Call your local pharmacy or go to http://bit.PharmacoPhotonics/4B5Zy6w to find one close to you.3.Make use of household items: Use cat litter or old coffee grounds to dispose medications if other options arenot available. Mix your drugs with these household products, seal them in an airtight container andthrow it into the garbage. Call [facility]: [phone] to be sure your drugs can be [...] aware that I should contact my doctor. Patient/Interior Decorator Paperhanging Signature: Date/Time: Relationship to Patient: Witness Name/Signature: Date/Time: [facility]12-26-2024 Note* Exam Date Time Procedure Performing Provider Status 09/07/24 6:38 PM XR Spine Lumbosacral 2 or 3 Views Contributor_system, MIRTA; Auth (Verified) [id number] ORIGINAL EXAMINATION: XRAY VIEWS OF THE LUMBAR [...] Date: 09/07/2024 6:51:55 PM Ordering Provider: JOE CLARK [facility]12-13-2024 Telephone encounter Note* Telephone Encounter - Josh Butterfield APRN.CNP - 08/25/2024 10:58 AM EST The following approved medication requests have been transmitted electronically. Requested Prescriptions Pending Prescriptions Disp Refills meloxicam (MOBIC) 7.5 mg tablet 30 tablet 2 Sig: Take 1 tablet by mouth once daily. Josh Butterfield APRN.CNP [facility]12-13-2024 Miscellaneous Notes* Telephone Encounter - Josh Butterfield APRN.CNP - 08/25/2024 10:58 AM EST The following approved medication requests have been transmitted electronically. Requested Prescriptions Pending Prescriptions Disp Refills meloxicam (MOBIC) 7.5 mg tablet 30 tablet 2 Sig: Take 1 tablet by mouth once daily. Josh Butterfield APRN.CNP * Telephone Encounter - Barb Gross [...] 25, 2024 10:38 AM documented [facility] encounter[facility] Telephone encounter Note * Telephone Encounter - [...] Gross LPN August 25, 2024 10:38 AM [facility]11-25-2024 Telephone encounter Note* Telephone Encounter - Cathy [...] hours as needed (dizziness). Cathy Perez RN [facility]11-25-2024 Miscellaneous Notes* Telephone Encounter - Cathy Perez [...] (dizziness). Cathy Perez RN documented in this encounterOhio [facility]11-22-2024 Telephone encounter Note * Telephone Encounter - Kiley Harris APRN.CNP - 08/04/2024 1:11 PM EST Patient notified. She will call her insurance to get a ride to merchandise pickup/receiving associate a specimen cup and then to return the specimen. [facility]11-22-2024 Miscellaneous Notes* Telephone Encounter - Kiley Harris APRN.CNP - 08/04/2024 1:11 PM EST Patient notified. She will call her insurance to get a ride to merchandise pickup/receiving associate a specimen cup and then to return [...] with Betzy FARAH 08/16/2024. documented in this encounterOhio [facility]11-15-2024 Telephone encounter Note * Telephone Encounter - [...] Gross LPN July 28, 2024 2:39 PM [facility]11-15-2024 Miscellaneous Notes* Telephone Encounter - Barb Gross [...] 28, 2024 2:39 PM documented in this encounterOhio [facility]11-14-2024 Telephone encounter Note * Telephone Encounter - Kiley Harris APRN.WARD SERVICE SUPERVISOR - 07/27/2024 2:53 PM EST Attempted to call patient, no voicemail set up. Plan to discuss: New tree in bud opacities. I reviewed the scan with DR. Loo and she would like to get repeat sputum cultures. I have placed orders and she should keep the follow up as scheduled with Betzy FARAH 08/16/2024. [facility]11-04-2024 Telephone encounter Note* Telephone Encounter - Chaparro Christianson MA - 07/17/2024 7:31 PM EST Signed paperwork and most recent OV attached to forms. Faxed to number below. Chaparro Christianson MA [facility]11-04-2024 Miscellaneous Notes* Telephone Encounter - Chaparro Christianson MA - 07/17/2024 7:31 PM EST Signed paperwork and most recent OV attached to forms. Faxed to number below. Chaparro Christianson MA * Telephone Encounter - Lennie Khan MA - 07/17/2024 2:13 PM EST Type of letter/form/fax request - [facility] 90 day orders for adult day care services Form received from fax on 1 floor and placed on desk (Dr. Aguilar) for completion. Completed form needs to be faxed to [facility] at [phone]. Route to [place] when form completed for processing documented in this encounterOhio [facility]11-04-2024 Telephone encounter Note * Telephone Encounter - Lennie Khan MA - 07/17/2024 2:13 PM EST Type of letter/form/fax request - [facility] 90 day orders for adult day care services Form received from fax on 1 floor and placed on MD desk (Dr. Aguilar) for completion. Completed form needs to be faxed to [facility] at [phone]. Route to [place] when form completed for processing [facility]10-29-2024 History of Present illness Narrative* Alfonso Verdin RT(R) - 07/11/2024 2:00 PM EDT [...] PATIENT PRESENTS WITH AN IMPLANTABLE OR ATTACHED MACHINE JOINT CUTTER: No RADIOLOGY DEPARTMENT: CT; Exam(s) Completed: Chest PERIPHERAL IV DATA: Not applicable SIGNED BY: RT Alicia(R) July 11, 2024 2:35 PM documented in this encounterOhio [facility]10-29-2024 NoteHNO ID: [id number] Author: ALFONSO VERDIN RT(Goran) Service: ? Author Type: Electrotyper Helper Type: Progress Notes Filed: 07/11/2024 14:35 Note [...] PATIENT PRESENTS WITH AN IMPLANTABLE OR ATTACHED MACHINE JOINT CUTTER: No RADIOLOGY DEPARTMENT: CT; Exam(s) Completed: Chest PERIPHERAL IV DATA: Not applicable SIGNED BY: RT Alicia(Goran) July 11, 2024 2:35 [facility]CP[facility] Telephone encounter Note* Telephone Encounter - Kiley Harris APRN.CNP - 06/27/2024 1:21 PM EDT Phone call to patient to follow up. She is better since taking the antibiotics. Plan for follow up CT Chest. Kiley Harris APRN.CNP [facility]10-15-2024 Miscellaneous Notes* Telephone Encounter - Kiley Harris [...] message. Kiley Harris APRN.CNP documented in this encounterOhio [facility]10-02-2024 Telephone encounter Note * Telephone Encounter - Nga Ferrer APRN.CNP - 06/14/2024 10:21 AM EDT Noted, thank you. Nga Ferrer APRN.CNP [facility]10-02-2024 Miscellaneous Notes* Telephone Encounter - Nga Ferrer APRN.CNP - 06/14/2024 10:21 AM EDT Noted, thank you. Nga Ferrer APRN.CNP * Telephone Encounter - Barb Gross LPN - 06/14/2024 8:44 AM EDT Phoned patient and went over results, notes from Nga Ferrer SENIOR SOFTWARE TESTER with understanding. Patient said she is not [...] possible. Nga Ferrer APRN.CNP documented in this encounterOhio [facility]10-02-2024 Telephone encounter Note * Telephone Encounter - Barb Gross LPN - 06/14/2024 8:44 AM EDT Phoned patient and went over results, notes from Nga Ferrer SENIOR SOFTWARE TESTER with understanding. Patient said she is not having any worsening symptoms, her MRI is scheduled for 06/19/2024. [facility]10-02-2024 Telephone encounter Note* Telephone Encounter - Nga [...] as soon as possible. Nga Ferrer APRN.CNP [facility]09-27-2024 Instructions* Patient Instructions* Nga Ferrer APRN.CNP - 06/09/2024 9:26 AM EDT Get labs completed Schedule MRI Brain Schedule consult Neurology, Dr. Cazares Be mindful of walking and changing position at home Red flag symptoms go to ER Follow up pending test results or sooner as needed. documented in this encounterOhio State University [facility]09-27-2024 History of Present illness Narrative* Nga Ferrer [...] Schizophrenia (HCC) follows with Dr Bill at [facility] Snoring Tobacco use disorder 1/2 ppd [...] APRN.CNP This note was partially generated using Quickshift voice recognition system. Note was reviewed for accuracy. There may be minor misspellings or grammar miscues with [employer] voice recognition. documented in this encounterOhio State University [facility]09-27-2024 NoteHNO ID: [id number] Author: NGA FERRER APRN.CNP Service: ? Author [...] Schizophrenia (HCC) follows with Dr Bill at [facility] [place] Tobacco use disorder 1/2 ppd [...] issues as other siste (more content not included)...[facility]09-24-2024 Telephone encounter Note* Telephone Encounter - Josh Butterfield APRN.CNP - 06/06/2024 11:59 AM EDT The following approved medication requests have been transmitted electronically. Requested Prescriptions Pending Prescriptions Disp Refills meloxicam (MOBIC) 7.5 mg tablet 30 tablet 2 Sig: Take 1 tablet by mouth once daily. Josh Butterfield APRN.CNP [facility]09-24-2024 Miscellaneous Notes* Telephone Encounter - Josh Butterfield APRN.CNP - 06/06/2024 11:59 AM EDT The following approved medication requests have been transmitted electronically. Requested Prescriptions Pending Prescriptions Disp Refills meloxicam (MOBIC) 7.5 mg tablet 30 tablet 2 Sig: Take 1 tablet by mouth once daily. Josh Butterfield APRN.CNP * Telephone Encounter - Kathi Felder [...] 06, 2024 11:38 AM documented in this encounterOhio State [facility]09-24-2024 Telephone encounter Note * Telephone Encounter - [...] Felder LPN June 06, 2024 11:38 AM [facility]09-23-2024 NoteHNO ID: [id number] Author: LEEANN SANCHES RPFT Service: ? Author Type: Respiratory [...] DATE: June 05, 2024 TIME: 9:31 AM Comment:[facility]09-23-2024 Procedure note* Leeann Sanches RPFT - 06/05/2024 9:31 AM EDTAssociated [...] June 05, 2024 TIME: 9:31 AM Comment: [facility]09-23-2024 Procedure note* Leeann Sanches RPFT - 06/05/2024 9:31 AM EDTAssociated [...] TIME: 9:31 AM Comment: documented in this encounterOhio State University [facility]09-23-2024 NoteHNO ID: [id number] Author: LEENAN SANCHES RPFT Service: ? Author Type: Respiratory Therapist Type: Progress Notes Filed: 06/05/2024 09:31 Note Text: PULM FUNCTION: Provider: Teresa Aguilar MD Assisting Tech: Leeann Sanches RPFT Oximetry - Ambulation: [facility] History of Present illness Narrative* Leeann Sanches RPFT - 06/05/2024 9:28 AM EDT PULM FUNCTION: Provider: Teresa Aguilar MD Assisting Tech: Leeann Sanches RPFT Oximetry - Ambulation: 1 documented in this encounterOhio State University [facility]09-23-2024 Telephone encounter Note * Telephone Encounter - Nga Ferrer APRN.CNP - 06/05/2024 9:26 AM EDT Order placed for oximetry with ambulation as requested. Nga Ferrer APRN.CNP [facility]09-23-2024 Miscellaneous Notes* Telephone Encounter - Nga Ferrer APRN.CNP - 06/05/2024 9:26 AM EDT Order placed for oximetry with ambulation as requested. Nga Ferrer APRN.WARD SERVICE SUPERVISOR documented in this encounterOhio State University [facility]09-18-2024 NotePatient Outreach (INTMMN) ALBANIA RAMSEY ([id number]) 1960 F Date Time Provider Department 05/31/24 TREESA AGUILAR INTMMN During your visit today, we [...] - Rash Date Reviewed: 04/25/2024 Reviewed by: Chaparro Christianson MA - Fully Assessed Visit Diagnosis:Encounter for screening mammogram for breast cancer [Z12.31] Order(s):[facility] SCREENING W DUONG [[id number]] Order #: [id number] FUTURE Prescriptions as of 06/05/2024 - OXYGEN, [...] artificial shoulder joint [Z9*08/18/2023 Encounter Status:Closed by BABAR LIEBERMAN on 06/05/24[facility] 05-30-2024 Telephone encounter Note* Telephone Encounter - Josh Butterfield APRN.CNP - 05/30/2024 2:37 PM EDT Scheduled for 06/05/2024 Josh Butterfield APRN.CNP [facility] Work Phone: [phone]) 193-334009-17-2024 Miscellaneous Notes* Telephone Encounter - Josh Butterfield APRN.CNP - 05/30/2024 2:37 PM EDT Scheduled for 06/05/2024 Josh Butterfield APRN.CNP * Telephone Encounter - Josh Butterfield APRN.CNP - 05/30/2024 12:55 PM EDT I ordered the patient a 6-minute walk test previously. I discussed with her that this is performed in the PFT lab. Can we please assist with getting the patient an appointment with the PFT lab to have this test completed for oxygen requirement purposes for Medicaid? I discussed with patient and sheis waiting on a call. Josh Butterfield APRN.CNP documented in this encounterOhio State University [facility]09-17-2024 Telephone encounter Note * Telephone Encounter - Josh Butterfield APRN.CNP - 05/30/2024 12:55 PM EDT I ordered the patient a 6-minute walk test previously. I discussed with her that this is performed in the PFT lab. Can we please assist with getting the patient an appointment with the PFT lab to have this test completed for oxygen requirement purposes for Medicaid? I discussed with patient and sheis waiting on a call. Josh Butterfield APRN.CNP [facility]09-17-2024 Telephone encounter Note* Telephone Encounter - Kimberly Mcneal LPN - 05/30/2024 12:19 PM EDT Patient needs scheduled for PFT Pulmonary. Sending to clerical to schedule. [facility]09-17-2024 Miscellaneous Notes* Telephone Encounter - Kimberly Mcneal LPN - 05/30/2024 12:19 PM EDT Patient needs scheduled for [facility] Pulmonary. Sending to clerical to schedule. * Telephone Encounter - Lennie Khan MA - 05/25/2024 10:14 AM EDT Spoke with pt, appt made. Reminder mailed. Will leave encounter open until form has been completed an faxed back. Lennie Khan MA * Telephone Encounter - Josh Butterfield APRN.CNP - 05/25/2024 8:32 AM EDT Yes, she follows with pulm, but Dr. Aguilar ordered the oxygen. So we should get a 6 minute walktest. I placed the order. I think she just needs to schedule. Josh Butterfield APRN.NEAL * Telephone Encounter - Lennie Khan MA - 05/18/2024 9:21 AM EDT Should pt follow up with Pulmonary as she has seen Betzy Alejandro PA-C in March. Lennie Khan MA * Telephone Encounter - Nighat Hall RN - 05/18/2024 9:12 AM EDT Lou from Medical Services calls and reports that patient is going to need to re qualify for O2. Patient is going to have to have another 6 minute walk done to re-qualify. For Medicaid to cover O2 patient needs to stat 88 or below with current diagnoses. Nighat Hall, RN documented in this encounterOhio State University [facility]09-12-2024 Telephone encounter Note * Telephone Encounter - Lennie Khan MA - 05/25/2024 10:14 AM EDT Spoke with pt, appt made. Reminder mailed. Will leave encounter open until form has been completed an faxed back. Lennie Khan MA [facility]09-12-2024 Telephone encounter Note* Telephone Encounter - Josh Butterfield APRN.CNP - 05/25/2024 8:32 AM EDT Yes, she follows with pulm, but Dr. Aguilar ordered the oxygen. So we should get a 6 minute walktest. I placed the order. I think she just needs to schedule. Josh Butterfield APRN.NEAL [facility]09-06-2024 Telephone encounter Note* Telephone Encounter - Kiley Harris APRN.CNP - 05/19/2024 11:31 AM EDT Attempted to contact patient to get an update of symptoms after antibiotic treatment. No voicemail is set up, unable to leave a message. Kiley Harris APRN.CNP [facility]09-05-2024 Telephone encounter Note* Telephone Encounter - Lennie Khan MA - 05/18/2024 9:21 AM EDT Should pt follow up with Pulmonary as she has seen Betzy Alejandro PA-C in March. Lennie Khan MA [facility]09-05-2024 Telephone encounter Note* Telephone Encounter - Nighat Hall RN - 05/18/2024 9:12 AM EDT Lou from Medical Services calls and reports that patient is going to need to re qualify for O2. Patient is going to have to have another 6 minute walk done to re-qualify. For Medicaid to cover O2 patient needs to stat 88 or below with current diagnoses. Nighat Hall RN [facility]09-04-2024 Hospital Discharge instructions Patient Education 05/17/2024 15:16:13 [...] come back to this facility in person. [id number] [employer] [address] [place] [address], [place] [address]. All rights reserved. This information is not intended as a substitute for professional medical care. Always follow yourhealthcare professional's instructions. Follow Up Care 05/17/2024 14:25:19 With:TERESA AGUILAR MD Address: [address] [place] [address]- When:2-4 days [facility] 09-04-2024 Note Discharge Instructions Thank you for allowing [facility] to assist you with your healthcare needs. The following is importantdischarge information regarding your hospital visit. Diagnosis from Today's Visit Well adult What to Do Next Instructions from Your Care Team No qualifying data available. Post Acute Orders No qualifying data available. You Need to Schedule the Following Appointments Follow Up with TERESA AGUILAR MD When:Within 2-4 days Where:[address] [place] [address]- Allergies Demerol HCl (Moderate) Hives Desyrel (Moderate) [...] Why Instructions Last Dose Unchanged acetaminophen- hydrocodone (Corona 325- 5 mg oral tablet) 1 tab(s) [...] come back to this facility in person. [phone] [employer] [address] [place] [address]. All rights reserved. This information is not intended as a substitute for professional medical care. Always follow yourhealthcare professional's instructions. Additional Information VACCINATE! IT SAVES LIVES! Members of the community who have not yet received the COVID-19 vaccine and would like to receive it can visit one of [facility] vaccine clinics. There are many vaccine clinic locations within the [facility]. For locations and available times, please visit www.[email or web address]/. It is important to note that some COVID mobile vaccine clinics are held outdoors and may be canceled in rainy or stormy conditions. To learn more about pediatric vaccinations (ages 5-11), we invite you to visit the [facility] webpage. https://www.[facility].org/pages/0123-Uymyi-Xhuumdkabdu-Rbzehtuykv-Lests-Vuj stions.htmlTo learn more about the COVID-19 vaccine, we invite you to visit the CDC website for a list of frequently asked questions. https://www.cdc.gov/coronavirus/2019-ncov/vaccines/faq.html [facility] Patient Portal Access Instructions: Stay connected with your healthcare team and access your personal medical information anytime with the [facility] Patient Portal. If you would like a full copy of your medical records please contact the [facility] Medical Records Department Wednesday through Wednesday between 8a.m. and 4:30p.m. Please follow the directions below to access the portal: 1.Access the email account you provided upon registration to the [facility].2.Look for an invitation email from [facility].3.Open the email and access the invitation link: Accept Invitation to [facility]4.Fill in the required hester to create your account. Sign into www.Pocketbook with your username and password that you [...] you will allow to register on the [facility] Patient Portal for access to your information. You can also access the [facility] Patient Portal on the [employer] nghia. Simply click on Health Records under [employer] and then click on the [employer] logo. HOW TO SAFELY DISPOSE OF PRESCRIPTION [...] Call your local pharmacy or go to http://bit.PharmacoPhotonics/0M0Nb9y to find one close to you.3.Make use of household items: Use cat litter or old coffee grounds to dispose medications if other options arenot available. Mix your drugs with these household products, seal them in an airtight container andthrow it into the garbage. Call [facility]: [phone] to be sure your drugs can be [...] aware that I should contact my doctor. Patient/Interior Decorator Paperhanging Signature: Date/Time: Relationship to Patient: Witness Name/Signature: Date/Time: [facility] [id number] Telephone encounter Note* Telephone Encounter - Teresa Aguilar MD - 05/08/2024 12:44 PM EDT Noted Teresa Aguilar MD [facility]08-26-2024 Miscellaneous Notes* Telephone Encounter - Teresa Aguilar MD - 05/08/2024 12:44 PM EDT Noted Teresa Aguilar MD * Telephone Encounter - Nighat Hall RN - 05/08/2024 10:17 AM EDT Patient calls and forgets what she is calling about but she knew it was for an appointment. Asked patient if she is having memory issues. Patient states that she has been having issues x 3 weeks. Patient only wants to see Dr. Aguilar for appointment. Appointment scheduled with Dr. Aguilar for05/16/2024. Nighat Hall RN * Telephone Encounter - Nighat Hall RN - 05/08/2024 9:50 AM EDT Patient [...] think that she has memory issues. Nighat Hall RN documented in this encounterOhio [facility] Telephone encounter Note * Telephone Encounter - Nighat Hall RN - 05/08/2024 10:17 AM EDT Patient calls and forgets what she is calling about but she knew it was for an appointment. Asked patient if she is having memory issues. Patient states that she has been having issues x 3 weeks. Patient only wants to see Dr. Aguilar for appointment. Appointment scheduled with Dr. Aguilar for05/16/2024. Nighat Hall RN [facility]08-26-[facility] Telephone encounter Note* Telephone Encounter - Nighat Hall RN - 05/08/2024 9:50 AM EDT Patient [...] think that she has memory issues. Nighat Hall RN [facility]08-15-2024 Telephone encounter Note* Telephone Encounter - Chaparro Christianson MA - 04/27/2024 4:23 PM EDT Form signed and faxed back to information below. Chaparro Christianson MA [facility]08-15-2024 Miscellaneous Notes* Telephone Encounter - Chaparro Christianson MA - 04/27/2024 4:23 PM EDT Form signed and faxed back to information below. Chaparro Christianson MA * Telephone Encounter - Chaparro Christianson MA - 04/27/2024 3:16 PM EDT Type of form: Medical Necessity for O2. Form received via fax When form is completed, Fax form to [phone] Form has been forwarded to Physician Desk: Dr. Aguilar. They are requesting additional information for pt O2 use. Pt currently follows with Pulmonary. In Pulm note pt had respiratory therapy with Ox w/ambulation. Chaparro Christianson MA documented in this encounterOhio [facility]08-15-2024 Telephone encounter Note * Telephone Encounter - Chaparro Christianson MA - 04/27/2024 3:16 PM EDT Type of form: Medical Necessity for O2. Form received via fax When form is completed, Fax form to [phone] Form has been forwarded to Physician Desk: Dr. Aguilar. They are requesting additional information for pt O2 use. Pt currently follows with Pulmonary. In Pulm note pt had respiratory therapy with Ox w/ambulation. Chaparro Christianson MA [facility]08-13-2024 Nurse Note* Chaparro Christianson MA - 04/25/2024 4:50 PM EDT Rx's and OV note faxed to [facility] at [phone]. Chaparro Christianson MA [facility]08-13-2024 Nurse Note* Chaparro Christianson MA - 04/25/2024 4:50 PM EDT Rx's and OV note faxed to [facility] at [phone]. Chaparro Christianson MA documented in this encounterOhio State University [facility]08-13-2024 History of Present illness Narrative* Teresa Aguilar [...] term course of Prednisone. Receives supplies through [facility]. Pt reports that her portable O2 tank [...] (HCC) Comment: follows with Dr Bill at [facility] No date: Snoring No date: Tobacco [...] Low Teresa Aguilar MD documented in this encounterOhio State University [facility]08-13-2024 NoteHNO ID: [id number] Author: TERESA AGUILAR MD Service: ? Author [...] term course of Prednisone. Receives supplies through [facility]. Pt reports that her portable O2 tank [...] (HCC) Comment: follows with Dr Bill at [facility] No date: Snoring No date: Tobacco [...] mouth at bed (more content not included)... [facility]08-06-2024 Telephone encounter Note* Telephone Encounter - Miriam Arciniega LPN - 04/18/2024 3:52 PM EDT Doc with [facility] called and he is putting together packs for pt and requested a copy of pt's med list. FAX: [phone] Done Miriam Arciniega LPN [facility]08-06-2024 Miscellaneous Notes* Telephone Encounter - Miriam Arciniega LPN - 04/18/2024 3:52 PM EDT Doc with [facility] called and he is putting together packs for pt and requested a copy of pt's med list. FAX: [phone] Done Miriam Arciniega LPN documented in this encounterOhio [facility] University [facility]08-06-2024 Telephone encounter Note * Telephone Encounter - Teresa Aguilar MD - 04/18/2024 10:44 AM EDT OK to refill as ordered Teresa Aguilar MD [facility]08-06-2024 Miscellaneous Notes* Telephone Encounter - Teresa Aguilar [...] with patient that she is switching to [facility] for the monthly pill packs. Faxed medication list. Pended meds ordered by PCP that need refills. Machelle Colon RN April 18, 2024 10:22 AM documented in this encounterOhio State University [facility]08-06-2024 Telephone encounter Note * Telephone Encounter - [...] with patient that she is switching to [facility] for the monthly pill packs. Faxed medication list. Pended meds ordered by PCP that need refills. Machelle Colon RN April 18, 2024 10:22 AM [facility]08-01-2024 Telephone encounter Note* Telephone Encounter - Kiley Harris APRN.CNP - 04/13/2024 3:22 PM EDT Phone call to patient for update. She has completed the cefdinir and she is still coughing up yellow sputum. It got somewhat better, but is not gone. Kiley Harris APRN.CNP [facility]08-01-2024 Miscellaneous Notes* Telephone Encounter - Kiley Harris APRN.CNP - 04/13/2024 3:22 PM EDT Phone call to patient for update. She has completed the cefdinir and she is still coughing up yellow sputum. It got somewhat better, but is not gone. Kiley Harris APRN.CNP documented in this encounterOhio State University [facility]07-23-2024 History of Present illness Narrative* Geovanna Barnes RT(Goran) - 04/04/2024 2:00 PM EDT Radiology Service [...] PATIENT PRESENTS WITH AN IMPLANTABLE OR ATTACHED MACHINE JOINT CUTTER: No RADIOLOGY DEPARTMENT: General X-ray: Exam(s) Completed: ASPIRATION right shoulder PERIPHERAL IV DATA: Not applicable SIGNED BY: RT Steffi(Goran) April 04, 2024 3:27 PM documented in this encounterOhio State University [facility]07-23-2024 NoteHNO ID: [id number] Author: GEOVANNA BARNES RT(R) Service: Radiology Author [...] PATIENT PRESENTS WITH AN IMPLANTABLE OR ATTACHED MACHINE JOINT CUTTER: No RADIOLOGY DEPARTMENT: General X-ray: Exam(s) Completed: ASPIRATION right shoulder PERIPHERAL IV DATA: Not applicable SIGNED BY: RT Steffi(R) April 04, 2024 3:27 PMMagruder Memorial [id number] Instructions* Patient Instructions* Karin Lloyd APRN.CNP - 03/29/2024 3:43 PM EDT Start Prednisone, 40 mg once a day for 5 days. Finish Antibiotics. Continue working to quit smoking. We are currently waiting for lab results from your previous sputum culture. Follow-up in 1 month. Please call within the next week if you don't hear from our office regarding an appointment. documented in this encounterOhio State University [facility]07-17-2024 History of Present illness Narrative* Karin Lloyd APRN.CNP - 03/29/2024 3:00 PM EDT [...] wishes to quit. Currently using resources from [id number]. DME: [employer] Current wearing 2L supplemental oxygen with exertion and at nighttime PAST MEDICAL HISTORY Diagnosis Date Asthma Bipolar I disorder, most recent episode (or current) unspecified Blood dyscrasia Chronic obstructive pulmonary disease (COPD) (HCC) Dysthymic disorder Depression (non-psychotic) Lumbago Osteoarthritis Pulmonary embolus (HCC) 25 years prior Schizophrenia ([facility]) follows with Dr Bill at [facility] Snoring Tobacco use disorder 1/2 ppd [...] deformity of the vertebral body of L2 Teacher Physically Impaired: PSCB Transcribe Date/Time: Feb 25 2024 12:18P Dictated by : MILLY RUSSELL MD This examination was interpreted and the report reviewed and electronically signed by: MILLY RUSSELL MD on Feb 25 2024 12:33PM EST Results-Findings * * *Final Report* * * DATE OF EXAM: Feb 21 2024 8:48AM [facility] 0541 - CT CHEST WO IVCON / [...] reviewed and edited and updated as necessary. Karin Lloyd, CARLENE.WARD SERVICE SUPERVISOR Associated attestation - Betzy Alejandro PA-C - 03/29/2024 4:19 PM EDT I have personally performed a face to face assessment of the patient and have reviewed the NGHIA note. My vera findings include: Exam is as documented. Assessment/Plan discussed and noted below. Other additions or changes: As edited Signature: Betzy Alejandro Date: 03/29/2024 Time: 4:18 PM documented in this encounterOhio State University [facility]07-15-2024 Telephone encounter Note * Telephone Encounter - Peg Mays RN - 03/27/2024 2:29 PM EDT Images from the original note were not included. Perla Kennedy PA-C You31 minutes ago (1:57 PM) AC I sent in Meloxicam to take daily and Tramadol to take sparingly. Please let the patient know. Perla Kennedy PA-C Called patient and relayed above message. She verbalized understanding. [facility]07-15-2024 Miscellaneous Notes* Telephone Encounter - Peg Mays RN - 03/27/2024 2:29 PM EDT Images from the original note were not included. Perla Kennedy PA-C You31 minutes ago (1:57 PM) AC I sent in Meloxicam to take daily and Tramadol to take sparingly. Please let the patient know. Perla Kennedy PA-C Called patient and relayed above message. She verbalized understanding. * Telephone Encounter - Peg Mays RN - 03/27/2024 10:31 AM EDT Pt calling RN line. She's asking what she can take for the pain in her shoulder. Please advise. documented in this encounterOhio State University [facility]07-15-2024 Telephone encounter Note * Telephone Encounter - Peg Mays RN - 03/27/2024 10:31 AM EDT Pt calling RN line. She's asking what she can take for the pain in her shoulder. Please advise. [facility]07-08-2024 Note* Addendum Note - Kiley Harris APRN.WARD SERVICE SUPERVISOR - 03/20/2024 11:46 AM EDTAddended by: KILEY HARRIS on: 03/20/2024 11:46 AM Modules accepted: Orders [facility]07-08-2024 Miscellaneous Notes* Addendum Note - Kiley Harris [...] advise patient.Belkis Garduno RN documented in this encounterOhio State University [facility]07-08-2024 Telephone encounter Note * Telephone Encounter - Kiley Harris APRN.CNP - 03/20/2024 11:43 AM EDT Phone call to patient. She states she got hives after taking 1 dose of levaquin. Previously tolerated it well. Discussed case with DR. Sabi Loo. Recommend cefdinir 300 mg BID x 10 days. Rx sent to pharmacy. Kiley Harris APRN.WARD SERVICE SUPERVISOR [facility]07-02-2024 Telephone encounter Note* Telephone Encounter - Libby Mullins MA - 03/14/2024 11:24 AM EDT Called and spoke to patient, she would like to get the outstanding test done and come in to review all test results at one appt. Please schedule Thank you [facility]07-02-2024 Miscellaneous Notes* Telephone Encounter - Libby Mullins [...] CT scan Please advise documented in this encounterOhio State University [facility]07-02-2024 Telephone encounter Note * Telephone Encounter - [...] follow up appointment if needed Thank you [facility]07-02-2024 Telephone encounter Note* Telephone Encounter - Nicol Gibson - 03/14/2024 9:49 AM EDT Patient has been scheduled [facility]07-02-2024 Telephone encounter Note* Telephone Encounter - Jillian Keating RN - 03/14/2024 9:23 AM EDT She needs follow up with Dr. Jamison to review results and discuss next steps. Per AC Please call patient and help with an appt with Dr Jamison to go over results [facility]07-02-2024 Telephone encounter Note* Telephone Encounter - Jillian Keating RN - 03/14/2024 7:35 AM EDT Patient calling for results of her CT scan Please advise [facility]07-01-2024 Telephone encounter Note* Telephone Encounter - Belkis Garduno RN - 03/13/2024 3:52 PM EDT Pt called in reporting a reaction to the levoFLOXacin (LEVAQUIN) 750 mg tablet ordered on 03/07/2024. She reports hives on her face that started the day she started the medication. She reports that she has stopped taking the medication at this time. Please advise patient.Belkis Garduno RN [facility]06-24-2024 Telephone encounter Note* Telephone Encounter - Kiley [...] Harris APRN.CNP March 06, 2024 1:00 PM [facility]06-24-2024 Miscellaneous Notes* Telephone Encounter - Kiley Harris [...] other questions or concerns at this time. Kliey Harris APRN.CNP March 06, 2024 1:00 PM documented in this encounterOhio State University [facility]06-19-2024 History of Present illness Narrative* Alfonso Verdin RT(R) - 03/01/2024 8:20 AM EDT [...] PATIENT PRESENTS WITH AN IMPLANTABLE OR ATTACHED MACHINE JOINT CUTTER: No RADIOLOGY DEPARTMENT: CT; Exam(s) Completed: Upper extremity PERIPHERAL IV DATA: Not applicable SIGNED BY: RT Alicia(R) March 01, 2024 4:14 PM documented in this encounterOhio State University [facility] Center06-10-2024 History of Present illness Narrative* Kiley Harris [...] activities of daily living. Modified Medical Research [employer] [place] Dyspnea Scale (MMRC) On level ground I [...] Schizophrenia (HCC) follows with Dr Bill at [facility] Snoring Tobacco use disorder 1/2 ppd [...] DATE OF EXAM: Sep 15 2023 9:53AM [facility] 0541 - CT CHEST WO IVCON / [...] Prior PFTS: SPIROMETRY WITH DILATOR IF OBSTRUCTED ([id number]) - ordered on 08/02/23 No textual results [...] to continue smoking. She has used the [phone] line and plans to contact them again. 3. Peristent cough: sputum culture recommended. Pt was given specimen cups. Kiley Harris APRN.WARD SERVICE SUPERVISOR February 21, 2024 8:06 AM I spent a total of 30 minutes on the date of the service which included preparing to see the patient, [id number] patient care, completing clinical documentation, performing a medically appropriate examination, counseling and educating the patient/family/caregiver, ordering medications, tests, or p rocedures, communicating with other HCPs (not separately reported), independently interpreting results (not separately reported), communicating results to the patient/family/caregiver, and care coordination (not separately reported). documented in this encounterOhio State University [facility]06-10-2024 History of Present illness Narrative* Alfonso Verdin RT(R) - 02/21/2024 8:40 AM EDT [...] PATIENT PRESENTS WITH AN IMPLANTABLE OR ATTACHED MACHINE JOINT CUTTER: No RADIOLOGY DEPARTMENT: CT; Exam(s) Completed: Chest PERIPHERAL IV DATA: Not applicable SIGNED BY: RT Alicia(R) February 21, 2024 1:12 PM documented in this encounterOhio State University [facility]06-07-2024 Telephone encounter Note * Telephone Encounter - [...] Nicol Gibson February 18, 2024 11:46 AM [facility]06-07-2024 Miscellaneous Notes* Telephone Encounter - Nicol Gibson [...] 18, 2024 11:46 AM documented in this encounterOhio State University [facility] Center06-07-2024 History of Present illness Narrative* Carolyn Jamison MD - 02/18/2024 8:49 AM EDT Images from the original note were not included. PAIN EVALUATION 02/18/2024 0834 Pain Level: 9 Pain Location: Shoulder-Right Description: Sharp;Burning heavy Frequency: Continuous Intervention/Comfort measure: Medication;Cold;Heat;Exercise tylenol Comments: PT currently @ [facility] in [place] Encounter Diagnosis ICD-10-CM 1. 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 Right shoulder pain, unspecified chronicity M25.511 [place] Ramsey returns in follow-up regarding right shoulder [...] & Elbow Surgeon Department of Orthopaedic Surgery [facility] documented in this encounterOhio State University [facility]06-07-2024 History of Present illness Narrative* Maia Evans [...] PATIENT PRESENTS WITH AN IMPLANTABLE OR ATTACHED MACHINE JOINT CUTTER: No RADIOLOGY DEPARTMENT: General X-ray: Exam(s) Completed: Upper Extremity X- Ray(s): Shoulder, TRUE AP/ AXILLARY / SUPRA OUTLET right PERIPHERAL IV DATA: Not applicable SIGNED BY: Kayla Verma February 18, 2024 8:33 AM documented in this encounterOhio State University [facility] Center06-07-2024 NoteHNO ID: [id number] Author: MAIA EVANS Tech Service: Radiology Author Type: Electrotyper Helper Type: Progress Notes Filed: 02/18/2024 08:33 Note [...] PATIENT PRESENTS WITH AN IMPLANTABLE OR ATTACHED MACHINE JOINT CUTTER: No RADIOLOGY DEPARTMENT: General X-ray: Exam(s) Completed: Upper Extremity X-Ray(s): Shoulder, TRUE AP / AXILLARY / SUPRA OUTLET right PERIPHERAL IV DATA: Not applicable SIGNED BY: Kayla Verma February 18, 2024 8:33 AMMagruder Memorial [id number] Telephone encounter Note* Telephone Encounter - Teresa Aguilar MD - 01/27/2024 8:08 AM EDT OK to refill as ordered Teresa Aguilar MD [facility]05-16-2024 Miscellaneous Notes* Telephone Encounter - Teresa Aguilar [...] Peace Cintron January 26, 2024 11:20 AM documented in this encounterOhio State University [facility] Center05-16-2024 Telephone encounter Note * Telephone Encounter - Brisa Clarke OCCA - 01/27/2024 7:59 AM EDT CHONG 12/01/2023 NOV not found [facility]05-15-2024 Telephone encounter Note* Telephone Encounter - Peace [...] 6 hours as needed (dizziness). [facility] January 26, 2024 11:20 AM [facility]05-03-2024 Telephone encounter Note* Telephone Encounter - Nicol Gibson - 01/14/2024 11:27 AM EDT Patient has been rescheduled [facility]05-03-2024 Miscellaneous Notes* Telephone Encounter - Arthur Nicol - 01/14/2024 11:27 AM EDT Patient [...] any recommendations for pain documented in this encounterOhio State University [facility] Center05-02-2024 Telephone encounter Note * Telephone Encounter - Jillian Keating RN - 01/13/2024 1:48 PM EDT Patient calling She would like to cancel her appt tomorrow 53 She was asking what she could do for the pain Please call pt back and help with a new appt Advise she will need to be seen to address any recommendations for pain [facility]05-01-2024 History of Present illness Narrative* Nga Ferrer APRN.CNP - 01/12/2024 1:55 PM EDT Consult placed for general surgery, she may schedule any time. Nga Ferrer APRN.CNP * Lennie Khan MA - 01/11/2024 4:19 PM EDT [...] 11, 2024 4:20 PM documented in this encounterOhio State University [facility] Center04-18-2024 Miscellaneous Notes* Telephone Encounter - Jillian Keating [...] appt at either location Pt lives in [place] and is just minutes form [facility] She will go to ED to get checked out and will call afterwards to let RN know what was done documented in this encounterOhio State University [facility] Medical Center04-18-2024 Hospital Discharge instructions Patient Education 12/30/2023 13:11:52 [...] t able to do your daily activities [phone] [employer] [address] [place] [address]. All rights reserved. This information is not intended as a substitute for professional medical care. Always follow yourhealthcare professional's instructions. Follow Up Care 12/30/2023 11:39:15 With:TERESA AGUILAR MD [address]: [address] [place] [place] [address]- When:2-4 days [facility] Elaine 04-18-2024 Note Discharge Instructions Thank you for allowing [facility] to assist you with your healthcare needs. [...] MD When Within 2-4 days Where: [address] [place] [address]- Allergies Demerol HCl (Hives) Desyrel (blotches [...] needed for Pain Printed Prescription Unchanged acetaminophen-hydrocodone (Corona 325- 5 mg oral tablet) 1 tab(s) [...] t able to do your daily activities [phone] [employer] [address] [place] [address]52. All rights reserved. This information is not intended as a substitute for professional medical care. Always follow yourhealthcare professional's instructions. Additional Information VACCINATE! IT SAVES LIVES! Members of the community who have not yet received the COVID-19 vaccine and would like to receive it can visit one of [facility] vaccine clinics. There are many vaccine clinic locations within the [facility]. For locations and available times, please visit [email or web address] It is important to note that some COVID mobile vaccine clinics are held outdoors and may be canceled in rainy or stormy conditions. To learn more about pediatric vaccinations (ages 5-11), we invite you to visit the [facility] webpage. [email or web address]/[email or web address] [email or web address] learn more about the COVID-19 vaccine, we invite you to visit the CDC website for a list of frequently asked questions. https://www.cdc.gov/coronavirus/2019-ncov/vaccines/faq.html [facility] Patient Portal Access Instructions: Stay connected with your healthcare team and access your personal medical information anytime with the [facility] Patient Portal. If you would like a full copy of your medical records please contact the [facility] Medical Records Department Wednesday through Wednesday between 8a.m. and 4:30p.m. Please follow the directions below to access the portal: 1.Access the email account you provided upon registration to the [facility].2.Look for an invitation email from [facility].3.Open the email and access the invitation link: Accept Invitation to [facility]4.Fill in the required hester to create your account. Sign into www.Pocketbook with your username and password that you [...] you will allow to register on the [facility] Patient Portal for access to your information. You can also access the [facility] Patient Portal on the [employer]. Simply click on Health Records under [employer] and then click on the [employer] logo. HOW TO SAFELY DISPOSE OF PRESCRIPTION [...] Call your local pharmacy or go to http://bit.PharmacoPhotonics/5J8Tx1i to find one close to you.3.Make use of household items: Use cat litter or old coffee grounds to dispose medications if other options arenot available. Mix your drugs with these household products, seal them in an airtight container andthrow it into the garbage. Call [facility]: [phone] to be sure your drugs can be [...] aware that I should contact my doctor. Patient/Interior Decorator Paperhanging Signature: Date/Time: Relationship to Patient: Witness Name/Signature: Date/Time: [facility]04-18-2024 Note ORIGINAL EXAMINATION: 3 XRAY VIEWS OF [...] Sign Date: 12/30/2023 12:36:22 PM Ordering Provider: MARYJANE [facility]03-27-2024 Miscellaneous Notes* Telephone Encounter - Josh Butterfield APRN.CNP - 12/08/2023 10:05 AM EDT The following approved medication requests have been transmitted electronically. Requested Prescriptions Pending Prescriptions Disp Refills meclizine (ANTIVERT) 25 mg tab 40 tablet 2 Sig: Take 1 tablet by mouth every 6 hours as needed (dizziness). Josh Butterfield APRN.CNP * Telephone Encounter - Hernesto Scott RN - 12/08/2023 9:21 AM EDT [...] date not found Please advise. Thank you. Hernesto Scott, ASHLEE. documented in this encounterOhio State University [facility]03-20-2024 Miscellaneous Notes* Telephone Encounter - Anna Russo [...] has any questions. Thank you. Nga Ferrer APRN.WARD SERVICE SUPERVISOR documented in this encounterOhio State University [facility] Center03-20-2024 History of Present illness Narrative* Casandra Georges, [...] PATIENT PRESENTS WITH AN IMPLANTABLE OR ATTACHED MACHINE JOINT CUTTER: No RADIOLOGY DEPARTMENT: General X-ray: Exam(s) Completed: Chest X-Ray PERIPHERAL IV DATA: Not applicable SIGNED BY: RT Jared(R) December 01, 2023 9:05 AM documented in this encounterOhio State University [facility] Center03-20-2024 Instructions* Patient Instructions* Nga Ferrer APRN.CNP - 12/01/2023 9:00 AM EDT Get xray completed Start Zpack and prednisone, take with food. Continue with current inhaler and oxygen Any worsening symptoms or difficulty breathing go to ER May use Codeine cough syrup three times daily as needed. Stay well hydrated. Follow up if no improvement. documented in this encounterOhio State University [facility]03-20-2024 History of Present illness Narrative* Nga Ferrer [...] Schizophrenia (HCC) follows with Dr Bill at [facility] Snoring Tobacco use disorder 1/2 ppd [...] APRN.NEAL This note was partially generated using Quickshift voice recognition system. Note was reviewed for accuracy. There may be minor misspellings or grammar miscues with Quickshift voice recognition. documented in this encounterOhio State University [facility]03-18-2024 Telephone encounter Note * Telephone Encounter - [...] TRAVEL: no Protocols used: Cough - Acute Myqullbjnc-UJBXG-XO [facility]03-18-2024 Miscellaneous Notes* Telephone Encounter - Cathy Perez [...] voiced agreement. Will send this update to Nag for update. Reason for Disposition [1] MILD [...] TRAVEL: no Protocols used: Cough - Acute Wvndholmgx-TELWP-BJ documented in this encounterOhio State University [facility] Center03-15-2024 History of Present illness Narrative* Perla Kennedy PA-C - 11/26/2023 7:51 AM EDT Perla Kennedy PA-C Department of Orthopaedics November 26, [...] in 6 weeks to ensure continued improvement. Perla Kennedy PA-C documented in this encounterOhio State University [facility]03-15-2024 History of Present illness Narrative* Peg Harris [...] PATIENT PRESENTS WITH AN IMPLANTABLE OR ATTACHED MACHINE JOINT CUTTER: No RADIOLOGY DEPARTMENT: General X-ray: Exam(s) Completed: Upper Extremity X- Ray(s): Shoulder,TRUE AP / AXILLARY / SUPRA OUTLET right PERIPHERAL IV DATA: Not applicable SIGNED BY: Kayla Fernández November 26, 2023 7:38 AM documented in this encounterOhio State University [facility]03-15-2024 NoteHNO ID: [id number] Author: PEG HARRIS Tech Service: ? Author Type: Electrotyper Helper Type: Progress Notes Filed: 11/26/2023 07:38 Note [...] PATIENT PRESENTS WITH AN IMPLANTABLE OR ATTACHED MACHINE JOINT CUTTER: No RADIOLOGY DEPARTMENT: General X-ray: Exam(s) Completed: Upper Extremity X-Ray(s): Shoulder,TRUE AP / AXILLARY / SUPRA OUTLET right PERIPHERAL IV DATA: Not applicable SIGNED BY: Kayla Fernández November 26, 2023 7:38 AMMagruder Memorial [id number] Miscellaneous Notes* Telephone Encounter - Teresa Aguilar MD - 11/13/2023 10:25 AM EST OK to refill as ordered Teresa Aguilar MD * Telephone Encounter - Chaparro Christianson Ma - 11/13/2023 9:59 AM EST Patient has been identified by name and date of : Yes, Provider Josh Butterfield CNP Date November Time 10:00 AM Pharmacy [...] each w/2 refills. Please advise. Thank you. Chaparro Christianson Ma. documented in this encounterOhio State University [facility] Center02-27-2024 Miscellaneous Notes* Telephone Encounter - Kiley Harris APRN.CNP - 11/09/2023 2:32 PM EST Phone call to patient and she reports she no longer has colored sputum. She is still coughing, but it is clear sputum. Recommended [address] from 09/16/2023 CT Chest to follow up on lung nodules. Pt agrees. Kiley Harris APRN.CNP documented in this encounterOhio State University [facility] Center02-12-2024 History of Present illness Narrative* Carolyn Jamison [...] & Elbow Surgeon Department of Orthopaedic Surgery [facility] documented in this encounterOhio State University [facility] Center02-12-2024 History of Present illness Narrative* Maia Evans [...] PATIENT PRESENTS WITH AN IMPLANTABLE OR ATTACHED MACHINE JOINT CUTTER: No RADIOLOGY DEPARTMENT: General X-ray: Exam(s) Completed: Upper Extremity X- Ray(s): Shoulder, TRUE AP/ AXILLARY / SUPRA OUTLET right PERIPHERAL IV DATA: Not applicable SIGNED BY: Kayla Verma October 25, 2023 8:39 AM documented in this encounterOhio State University [facility] Center02-12-2024 NoteHNO ID: [id number] Author: MAIA EVANS Tech Service: Radiology Author Type: Electrotyper Helper Type: Progress Notes Filed: 10/25/2023 08:39 Note [...] PATIENT PRESENTS WITH AN IMPLANTABLE OR ATTACHED MACHINE JOINT CUTTER: No RADIOLOGY DEPARTMENT: General X-ray: Exam(s) Completed: Upper Extremity X-Ray(s): Shoulder, TRUE AP / AXILLARY / SUPRA OUTLET right PERIPHERAL IV DATA: Not applicable SIGNED BY: Kayla Verma October 25, 2023 8:39 AMMagruder Memorial [id number] Miscellaneous Notes* Telephone Encounter - Libby Mullins MA - 10/21/2023 1:36 PM EST Completed as requested Libby Mullins MA * Telephone Encounter - Jillian Keating RN - 10/21/2023 10:34 AM EST Spoke with patient Unable to go to [place] Patient accepted appt on Wednesday10/25/23 at 9:15, xrays at 9 * Telephone Encounter - Jillian Keating RN - 10/21/2023 9:37 AM EST She should go back in to her sling and needs to come in for xrays micha. We are in [place] today. We could see her between cases on Wednesday in [place]. Thank you! Perla Kennedy PA-C Tried to call patient back [...] no relief Please advise documented in this encounterOhio State University [facility]02-02-2024 History of Present illness Narrative* Perla Kennedy PA-C - 10/15/2023 9:06 AM EST Perla Kennedy PA-C Department of Orthopaedics October 15, [...] repeat xrays of shoulder at that time. ePrla Kennedy PA-C documented in this encounterOhio State University [facility]02-02-2024 History of Present illness Narrative* Peg Harris [...] PATIENT PRESENTS WITH AN IMPLANTABLE OR ATTACHED MACHINE JOINT CUTTER: No RADIOLOGY DEPARTMENT: General X-ray: Exam(s) Completed: Upper Extremity X- Ray(s): Shoulder,TRUE AP / AXILLARY / SUPRA OUTLET right PERIPHERAL IV DATA: Not applicable SIGNED BY: Kayla Fernández October 15, 2023 9:05 AM documented in this encounterOhio State University [facility]02-02-2024 NoteHNO ID: [id number] Author: PEG HARRIS Tech Service: ? Author Type: Electrotyper Helper Type: Progress Notes Filed: 10/15/2023 09:06 Note [...] PATIENT PRESENTS WITH AN IMPLANTABLE OR ATTACHED MACHINE JOINT CUTTER: No RADIOLOGY DEPARTMENT: General X-ray: Exam(s) Completed: Upper Extremity X-Ray(s): Shoulder,TRUE AP / AXILLARY / SUPRA OUTLET right PERIPHERAL IV DATA: Not applicable SIGNED BY: Kayla Fernández October 15, 2023 9:05 AMMagruder Memorial [id number] Miscellaneous Notes* Telephone Encounter - Lennie Khan Ma - 10/14/2023 9:32 AM EST Pt dropped off a verification of disability doctor information form for [facility]. Please Form filled out with Pt name, provider name, address, phone and fax number. No need for provider to sign. 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 Forms states that once this form is completed [employer] will send a form for doctor to verify pt disability. Lennie Khan Ma documented in this encounterOhio State University [facility] Center01-29-2024 History of Present illness Narrative* Casandra Georges [...] PATIENT PRESENTS WITH AN IMPLANTABLE OR ATTACHED MACHINE JOINT CUTTER: No RADIOLOGY DEPARTMENT: General X-ray: Exam(s) Completed: Pelvis X-Ray: Pelvis with Hip Left PERIPHERAL IV DATA: Not applicable SIGNED BY: RT Jared(R) October 11, 2023 9:46 AM documented in this encounterOhio State University [facility] Center01-16-2024 Hospital Discharge instructions Patient Education 09/28/2023 17:49:56 Dizziness, Uncertain Cause Dizziness (Uncertain Cause) Dizziness is a common symptom. It may be described as lightheadedness, spinning, or feeling like you are going to faint. Dizziness can have many causes. Be sure to tell the healthcare provider about: All medicines you take, including prescription, lycx-ixq-bwoglyb, herbs, and supplements Any other symptoms you [...] Chest, arm, neck, back, or jaw pain [id number] General Assembly[address] [place] [address]. All rights reserved. This information is not intended as a substitute for professional medical care. Always follow yourhealthcare professional's instructions. Follow Up Care 09/28/2023 15:04:53 With:TERESA AGUILAR MD Address: [address] [place] [id number]- When:2-4 days [facility] 01-16-2024 Note Discharge Instructions Thank you for allowing [facility] to assist you with your healthcare needs. [...] AGUILAR MD When Within 2-4 days Where: [address] [place] [address] [id number]- Allergies Demerol HCl (Hives) Desyrel (blotches over [...] Duration: 4 Days Printed Prescription Changed acetaminophen-hydrocodone (Corona 325- 5 mg oral tablet) 1 tab(s) by mouth Every 6 hours Ankle sprain Duration: 2 Days Changed acetaminophen-hydrocodone (Corona 325- 5 mg oral tablet) 1 tab(s) [...] SEET a MIN oh fen and lenka drosabi KOE done) Lortab Elixir, Verdrocet What is [...] may report side effects to FDA at 2-348-KAL-6046. What other drugs will affect acetaminophen and [...] affect acetaminophen and hydrocodone, including prescription and ebog-sgk-crhnmsh medicines, vitamins, and herbal products. Not all [...] to ensure that the information provided by [employer]. ('[employer]') is accurate, up-to-date, and complete, but no guarantee is made to that effect. Drug information contained herein may be time sensitive. [employer] information has been compiled for use by healthcare practitioners and consumers in the [place] and therefore [employer] does not warrant that uses outside of the [place] are appropriate, unless specifically indicated otherwise. [employer] drug information does not endorse drugs, diagnose patients or recommend therapy. [employer] drug information isan informational resource designed to [...] effective or appropriate for any given patient. [employer] does not assume any responsibility for any aspect of healthcare administered with the aid of information [employer] provides. The information contained herein is not intended to cover all possible uses, directions, precautions, warnings, drug interactions, allergic reactions, or adverse effects. If you have questions about the drugs you are taking, check with your doctor, nurse or pharmacist. Copyright 9809-5307 [facility] [employer]. Version: 19.. Revision Date: 05/03/2023. ondansetron (oral) [...] may report side effects to FDA at 3-822-SMX-0545. What other drugs will affect ondansetron? Ondansetron [...] interact with ondansetron. This includes prescription and ygkk-mmk-esmsfid medicines, vitamins, and herbal products. Give a [...] to ensure that the information provided by [employer]') is accurate, up-to-date, and complete, but no guarantee is made to that effect. Drug information contained herein may be time sensitive. [employer] information has been compiled for use by healthcare practitioners and consumers in the [place] and therefore [employer] does not warrant that uses outside of the [place] are appropriate, unless specifically indicated otherwise. [employer] drug information does not endorse drugs, diagnose patients or recommend therapy. [employer] drug information isan informational resource designed to [...] effective or appropriate for any given patient. [employer] does not assume any responsibility for any aspect of healthcare administered with the aid of information [employer] provides. The information contained herein is not intended to cover all possible uses, directions, precautions, warnings, drug interactions, allergic reactions, or adverse effects. If you have questions about the drugs you are taking, check with your doctor, nurse or pharmacist. Copyright 9741-2917 [employer]. Version: 16.. Revision Date: 04/15/2023. albuterol inhalation [...] may report side effects to FDA at 1-005-QIT-3074. What other drugs will affect albuterol inhalation? [...] may affect albuterol inhalation, including prescription and fzdt-bkt-ubpovqw medicines, vitamins, and herbal products. Not all [...] to ensure that the information provided by [employer]') is accurate, up-to-date, and complete, but no guarantee is made to that effect. Drug information contained herein may be time sensitive. [employer] information has been compiled for use by healthcare practitioners and consumers in the [place] and therefore [employer] does not warrant that uses outside of the [place] are appropriate, unless specifically indicated otherwise. [employer] drug information does not endorse drugs, diagnose patients or recommend therapy. [employer] drug information isan informational resource designed to [...] effective or appropriate for any given patient. [employer] does not assume any responsibility for any aspect of healthcare administered with the aid of information [employer] provides. The information contained herein is not intended to cover all possible uses, directions, precautions, warnings, drug interactions, allergic reactions, or adverse effects. If you have questions about the drugs you are taking, check with your doctor, nurse or pharmacist. Copyright 5842-0557 [employer]. Version: 06.13. Revision Date: 07/31/2020. meclizine (KATHERINE cervantes goldie) [...] may report side effects to FDA at 2-115-MVZ-8974. What other drugs will affect meclizine? Using [...] drugs may affect meclizine, including prescription and uklz-uax-nhpbaoe medicines, vitamins, and herbal products. Tell your [...] to ensure that the information provided by [employer] ('[employer]') is accurate, up-to-date, and complete, but no guarantee is made to that effect. Drug information contained herein may be time sensitive. [employer] information has been compiled for use by healthcare practitioners and consumers in the [place] and therefore [employer] does not warrant that uses outside of the [place] are appropriate, unless specifically indicated otherwise. [employer] drug information does not endorse drugs, diagnose patients or recommend therapy. [employer] drug information isan informational resource designed to [...] effective or appropriate for any given patient. [facility] does not assume any responsibility for any aspect of healthcare administered with the aid of information [facility] provides. The information contained herein is not intended to cover all possible uses, directions, precautions, warnings, drug interactions, allergic reactions, or adverse effects. If you have questions about the drugs you are taking, check with your doctor, nurse or pharmacist. Copyright 0343-8251 [facility] [employer]. Version: 8.01. Revision Date: 05/11/2023. Education Materials Dizziness (Uncertain Cause) Dizziness is a common symptom. It may be described as lightheadedness, spinning, or feeling like you are going to faint. Dizziness can have many causes. Be sure to tell the healthcare provider about: All medicines you take, including prescription, bllf-jmw-ukowyvb, herbs, and supplements Any other symptoms you [...] Chest, arm, neck, back, or jaw pain 2585-[address] [employer] [place] [address]. All rights reserved. This information is not intended as a substitute for professional medical care. Always follow yourhealthcare professional's instructions. Additional Information VACCINATE! IT SAVES LIVES! Members of the community who have not yet received the COVID-19 vaccine and would like to receive it can visit one of [facility] vaccine clinics. There are many vaccine clinic locations within the [facility]. For locations and available times, please visit [email or web address]/. It is important to note that some COVID mobile vaccine clinics are held outdoors and may be canceled in rainy or stormy conditions. To learn more about pediatric vaccinations (ages 5-11), we invite you to visit the [facility] webpage. https://www.[employer]s.org/pages/9953-Vnvei-Rtdlzgsajok-Gvyjnmdnnb-Qqmrb-Rcv stions.htmlTo learn more about the COVID-19 vaccine, we invite you to visit the CDC website for a list of frequently asked questions. https://www.cdc.gov/coronavirus/2019-ncov/vaccines/faq.html [facility] Patient Portal Access Instructions: Stay connected with your healthcare team and access your personal medical information anytime with the [facility] Patient Portal. If you would like a full copy of your medical records please contact the [facility] Medical Records Department Wednesday through Wednesday between 8a.m. and 4:30p.m. Please follow the directions below to access the portal: 1.Access the email account you provided upon registration to the [facility].2.Look for an invitation email from [facility].3.Open the email and access the invitation link: Accept Invitation to [facility]4.Fill in the required hester to create your account. Sign into www.Pocketbook with your username and password that you [...] you will allow to register on the [facility] Patient Portal for access to your information. You can also access the [facility] Patient Portal on the [employer]. Simply click on Health Records under [employer] and then click on the [employer] logo. HOW TO SAFELY DISPOSE OF PRESCRIPTION [...] Call your local pharmacy or go to [email or web address]/[email or web address] to find one close to you.3.Make use of household items: Use cat litter or old coffee grounds to dispose medications if other options arenot available. Mix your drugs with these household products, seal them in an airtight container andthrow it into the garbage. Call [facility]: [phone] to be sure your drugs can be [...] you have wi (more content not included)... [facility]01-16-2024 Note ORIGINAL EXAMINATION: ONE XRAY VIEW OF [...] Sign Date: 09/28/2023 5:29:39 PM Ordering Provider: [facility]01-16-2024 Note ORIGINAL EXAMINATION: ONE XRAY VIEW [...] Sign Date: 09/28/2023 5:30:27 PM Ordering Provider: [facility]01-16-2024 Note ORIGINAL EXAMINATION: CT OF THE HEAD [...] Date: 09/28/2023 5:02:18 PM [facility]ing Provider[facility] NoteSinus tachycardia Right atrial enlargement Right bundle branch block Compared to ECG at 12/03/2022 01:28:12 BORDERLINE ECG Electronic Signature: JOCELIN VALENTINE DO 09/28/2023 15:41:41[facility] 12-15-2023 History of Present illness Narrative* Peg [...] 27, 2023 8:43 AM documented in this encounterOhio State University Wexner [facility] Center12-15-2023 NoteHNO ID: [id number] Author: Peg Harris Tech Service: ? Author Type: Electrotyper Helper Type: Progress Notes Filed: 08/27/2023 8:44 AM [...] BY: Kayla Fernández August 27, 2023 8:43 AMMagruder Memorial HospitalWaqhhveh08-05-1625 Miscellaneous Notes* Telephone Encounter - Kiley Harris [...] No Showed 07/20/2023 CT. documented in this encounterOhio State University Wexner [facility] Center12-06-2023 Miscellaneous Notes* Telephone Encounter - Alivia Lozano [...] review. Routing to provider. documented in this encounterOhio State University Wexner Medical Center12-06-2023 History of Present illness Narrative* Robin Louis, IRLANDA - 08/18/2023 1:09 PM EST Episode Visit Count: 1 Therapist That Will Accept/Oversee The Plan Of Care: Robin Louis PT Start of Care Date: 08/18/23 [...] of Care: created on 08/18/23 through 10/13/23 [place] in home exercise program. Patient will decrease [...] Planned: 16 Planned Treatment Interventions: Therapeutic exercise (58699), Neuromuscular re- education (08013), Therapeutic activities (59928), Self-correction management (49218), Manual therapy (19815), Gait Training (80152), Patient/Family/Caregiver Education, Body Mechanics Training PLAN FOR [...] : 0910 Session Stop Time : 1000 Robin Louis PT * Robin Louis PT - 08/18/2023 9:53 AM EST Program_ID:[id number] Access Code: [email or web address] URL: [email or web address] Date: 08-18-2023 Prepared By: Robin Louis Program Notes Exercises - Supine Shoulder Flexion Extension AAROM with Dowel - 3 x daily - 7 x weekly - 2 - 5 - Supine Shoulder External Rotation in 45 Degrees Abduction AAROM with Dowel - 3 x daily - 7 x weekly - 2 - 5 documented in this encounterOhio State University [facility] Center11-23-2023 NoteHNO ID: [id number] Author: Wilson Bey MD Service: Orthopaedic Surgery [...] - PGY 3 6:13 AM 08/05/2023 Pager #[phone]-2023 NoteHNO ID: [id number] Author: Digna Fowler APRN.PROFESSIONAL POKER PLAYER Service: ? Author Type: Nurse Detail Technician Type: Anesthesia Procedure Notes Filed: 08/04/2023 11:11 AM Note Text: ANESTHESIOLOGY PROCEDURE NOTE Airway General Information Procedure Start Time/Medication Administration: 08/04/2023 10:53 AM Patient location during procedure: OR Timeout Performed Pre-procedure: timeout performed Consent Obtained: Yes Patient identity confirmed: arm band, care steam pan sponger and patient Staffing Anesthesiologist: Yamil Steel MD PROFESSIONAL POKER PLAYER: Digna Fowler APRN.PROFESSIONAL POKER PLAYER Performed by: ANMOL Indications and Patient Condition [...] no Airway not difficult SIGNATURE: Digna Fowler APRN.PROFESSIONAL POKER PLAYER PATIENT NAME: Albania Ramsey DATE: August 04, 2023 TIME: 11:09 AM CSN: [id number] History of Present illness Narrative* Betzy Alejandro [...] necessary. Betzy Alejandro PA-C documented in this encounterOhio State University Wexner [facility] Center11-20-2023 Nurse Note* Funmilayo Diaz LPN - 08/02/2023 8:35 AM EST Intake information documented in the prior visit with RILEY Hassan today. documented in this encounterOhio State University Wexner Medical Center11-20-2023 Procedure note* Leeann Sanches RPFT - 08/02/2023 8:35 AM ESTAssociated [...] Finger 30 3 Wheel Walker None NAME: Leeann RILEY Sanches PATIENT NAME: Albania Ramsey DATE: August 02, 2023 TIME: 8:35 AM Comment: documented in this encounterOhio State University Wexner Medical Center11-20-2023 History of Present illness Narrative* Leeann Sanches RPFT - 08/02/2023 8:32 AM EST PULM FUNCTION SMARTBLOCK: Provider: Roro Loo MD Assisting Tech: Leeann Sanches RPFT Spirometry w/BD: 1 DLCO: 1 LV - Box: 1 Oximetry - Ambulation: 1 documented in this encounterOhio State University Wexner Medical Center11-09-2023 NoteHNO ID: [id number] Author: Miguel Ángel Herndon APRN.NEAL Service: ? [...] you! Miguel Ángel Herndon APRN.CNP, Pre-surgical testing [facility]-2023 NoteHNO ID: [id number] Author: Kevin Gerardo APRN.CNP Service: ? Author Type: Nurse Practitioner Type: Progress Notes Filed: 07/21/2023 1:54 PM Note Text: RED DOT CC NGHIA review anesthesia to see if pulmonary optimization [...] surgery with Dr. Jamison on 08/04/2023 at [place] under general.[facility]11-08-[facility] History of Present illness Narrative* Kevin Gerardo APRN.CNP - 07/21/2023 1:47 PM EST RED DOT CC NGHIA review anesthesia to see if pulmonary optimization [...] surgery with Dr. Jamison on 08/04/2023 at [place] under general. documented in this encounterOhio State University [facility]xner [facility] Center11-08-2023 History and physical note * Kevin Gerardo APRN.WARD SERVICE SUPERVISOR - 07/21/2023 1:40 PM EST HISTORY AND [...] L nasal cannula oxygen continuously. Today, PAT grdy394% on 2 L Lilly Activity Status Index: [...] Schizophrenia (HCC) follows with Dr Bill at [facility] Snoring Tobacco use disorder 1/2 ppd [...] W/WO RMVL TUBE OVARY 1982 Hysterectomy, VALDEMAR FAMILY HISTORY Problem Relation Age [...] or any previous visit (from the past 64365 hour(s)). Prepared for Surgery: CONSULTS: Patient does [...] CBC and BMP ordered in epic by NGHIA Instructions Given to Patient: Instructions located in the after visit summary. Hibiclens given and instructions provided. Mupirocin instructions given. Patient given verbal and written preop instructions and voices comprehension and compliance. I spent a total of 40 minutes on the date of the service which included preparing to see the patient, htvx-jh-ezqw patient care, completing clinical documentation, obtaining and/or reviewing separately obtained history, performing a medically appropriate examination, counseling and educating the pat ient/family/caregiver, and ordering medications, tests, or procedures. SIGNATURE: Kevin Gerardo APRN.CNP PATIENT NAME: Albania Ramsey DATE: July 21, 2023 TIME: 11:12 AM PAGER/CONTACT #: documented in this encounterOhio [facility]11-08-[facility]23 Instructions* Patient Instructions* Kevin Gerardo APRN.CNP - 07/21/2023 11:12 AM EST PATIENT PREOPERATIVE INSTRUCTIONS Your surgeon has scheduled you for your procedure at this surgery center: [facility] [phone] [address] [facility]. [place], [place] [address] Please enter through the main entrance, and [...] or the morning of surgery. Use the [facility] body wash supplied to you along [...] surgery. - YOU MUST HAVE A RESPONSIBLE GUIDE DOG INSTRUCTOR TAKE YOU HOME. A DIRECTOR OF PAYROLL, CAB OR UBER GUIDE DOG INSTRUCTOR CANNOT BE MADEA RESPONSIBLE GUIDE DOG INSTRUCTOR. - We recommend that a responsible person [...] OR ORTHOPEDIC SURGERY: -[facility] should bring their walker into the building. -Orthopedic patients having surgery [facility] listed as to be admitted should leave their walkers in the car or with a family member If you develop symptoms such as a fever, cold, or flu, or have other changes to your health within TWO DAYS of scheduled surgery or the morning of surgery, please contact the surgery center above. Visitors to any [facility] facility: - An individual who is sick should not visit. - Visitors to patients with COVID-19 must follow these guidelines, which include wearing a mask, eye protection, gown and gloves. [facility]- Visitations are: - Visitation hours are from [...] Advance Directive, please fax a copy to [phone] or email to for it to be added to your chart. If you do not have an Advance Directive, you can find the appropriate form and more information at [email or web address]. We recommend that youcomplete the Advance Directive form found on the website and bring it with you the day of your surgery. It can be witnessed and scanned into your chart that day. Kevin Gerardo APRN.CNP 07/21/23 documented in this encounterOhio State University [facility]10-14-2023 Hospital Discharge instructions Patient Education 06/26/2023 11:50:16 [...] the smoke from others. You may use jrop-gvd-yrlmtck acetaminophen or ibuprofen for fever, muscle aching, [...] body and be dangerous to your health. Jjdk-gwt-stlgrfm remedies won't shorten the length of the [...] or as directed by your healthcare provider 1378-[address] [employer]. [address] [place] [address], [place] [address]. All rights reserved. This information is not [...] for yourself at home: You may use iwgk-zsy-zckykls medicine as directed to control pain, unless another medicine was prescribed. If you have chronic liver or kidney disease or ever had a stomach ulcer or GI bleeding, talkwith your doctor before using these medicines. Aspirin should never be used in anyone under 18 years of age who is ill with a fever. It may cause severe liver damage. You may use vofi-hsw-xvtqbfd decongestants such as phenylephrine or pseudoephedrine. But [...] pain Stiff neck Unusual drowsiness or confusion 1561-[address] [employer] [place] [address]. All rights reserved. This information is not intended as a substitute for professional medical care. Always follow yourhealthcare professional's instructions. Follow Up Care 06/26/2023 11:10:37 With:TERESA AGUILAR Address: [address] [place], [place] [address]- [facility] (1) When:2-4 days Comments:Schedule appointment as soon as possibleReturn to ED if symptoms worsenSee sheet. Return for symptoms as described [facility] 10-14-2023 Note Discharge Instructions Thank you for allowing [facility] to assist you with your healthcare needs. [...] sheet. Return for symptoms as described Where: [address] [place], [place] [address]- [facility] (1) Allergies Demerol HCl (Hives) Desyrel (blotches [...] 1 po q12 Printed Prescription Unchanged acetaminophen-hydrocodone (Corona 325- 5 mg oral tablet) 1 tab(s) [...] providers or retail pharmacies. Medication Leaflets prednisone (PRED ni sone) Shiloh What is the most important information I [...] may report side effects to FDA at 6-193-YHJ-3521. What other drugs will affect prednisone? Sometimes [...] may affect prednisone. This includes prescription and hmkq-hfz-cwdztzl medicines, vitamins, and herbal products. Not all [...] to ensure that the information provided by [employer]. ('[employer]') is accurate, up-to-date, and complete, but no guarantee is made to that effect. Drug information contained herein may be time sensitive. [employer] information has been compiled for use by healthcare practitioners and consumers in the [place] and therefore [employer] does not warrant that uses outside of the [place] are appropriate, unless specifically indicated otherwise. [employer] Request[employer] drug information does not endorse drugs, diagnose patients or recommend therapy. [employer] drug information isan informational resource designed to [...] effective or appropriate for any given patient. [employer] does not assume any responsibility for any aspect of healthcare administered with the aid of information [employer] provides. The information contained herein is not intended to cover all possible uses, directions, precautions, warnings, drug interactions, allergic reactions, or adverse effects. If you have questions about the drugs you are taking, check with your doctor, nurse or pharmacist. Copyright 5942-1175 [employer]. Version: 10.. Revision Date: 12/08/2018. Education Materials [...] the smoke from others. You may use utoj-wyb-fksslpe acetaminophen or ibuprofen for fever, muscle aching, [...] body and be dangerous to your health. Zuai-kue-gyleccq remedies won't shorten the length of the [...] or as directed by your healthcare provider 6888-3397 [employer]. [address] [place] [address], [place] [address]. All rights reserved. This information is not [...] for yourself at home: You may use pvpk-jvl-dttrfaf medicine as directed to control pain, unless another medicine was prescribed. If you have chronic liver or kidney disease or ever had a stomach ulcer or GI bleeding, talkwith your doctor before using these medicines. Aspirin should never be used in anyone under 18 years of age who is ill with a fever. It may cause severe liver damage. You may use xwss-jgs-ipzdwpo decongestants such as phenylephrine or pseudoephedrine. But [...] pain Stiff neck Unusual drowsiness or confusion 2240-[address] [employer] [place] [address]. All rights reserved. This information is not intended as a substitute for professional medical care. Always follow yourhealthcare professional's instructions. Additional Information VACCINATE! IT SAVES LIVES! Members of the community who have not yet received the COVID-19 vaccine and would like to receive it can visit one of [facility] vaccine clinics. There are many vaccine clinic locations within the [facility]. For locations and available times, please visit www.[email or web address].[place].gov/. It is important to note that some COVID mobile vaccine clinics are held outdoors and may be canceled in rainy or stormy conditions. To learn more about pediatric vaccinations (ages 5-11), we invite you to visit the [facility] webpage. https://www.[email or web address].org/pages/3188-Eipcr-Vhajuwijdzo-Rxwddjvynp-Ogcys-Npd stions.htmlTo learn more about the COVID-19 vaccine, we invite you to visit the CDC website for a list of frequently asked questions. https://www.cdc.gov/coronavirus/2019-ncov/vaccines/faq.html [facility] Patient Portal Access Instructions: Stay connected with your healthcare team and access your personal medical information anytime with the [facility] Patient Portal. If you would like a full copy of your medical records please contact the [facility] Medical Records Department Wednesday through Wednesday between 8a.m. and 4:30p.m. Please follow the directions below to access the portal: 1.Access the email account you provided upon registration to the [facility].2.Look for an invitation email from [facility].3.Open the email and access the invitation link: Accept Invitation to [facility]4.Fill in the required hester to create your account. Sign into [email or web address] with your username and password that you [...] you will allow to register on the [facility] Patient Portal for access to your information. You can also access the [facility] Patient Portal on the [employer] nghia. Simply click on Health Records under HealthData and then click on the [employer] logo. HOW TO SAFELY DISPOSE OF PRESCRIPTION [...] Call your local pharmacy or go to http://bit.ly/1U1Hv9u to find one close to you.3.Make use of household items: Use cat litter or old coffee grounds to dispose medications if other options arenot available. Mix your drugs with these household products, seal them in an airtight container andthrow it into the garbage. Call [facility]: [phone] to be sure your drugs can be [...] aware that I should contact my doctor. Patient/Interior Decorator Paperhanging Signature: Date/Time: Relationship to Patient: Witness Name/Signature: Date/Time: [facility]10-13-2023 Miscellaneous Notes* Telephone Encounter - Flores Restrepo [...] Thank you. Flores Allen documented in this encounterOhio State University [facility]10-06-2023 Nurse Note* Vira Perez Ma - 06/18/2023 10:45 AM EDT Patient scheduled for injection during today's OV. Patient scheduled for: 07/22/23 Reviewed instructions. Hold the following medication(s): - Aleve or any other NSAIDS for 5 days prior Instructions discussed during OV and paper copy of instructions handed to patient. Patient verbalized understanding. documented in this encounterOhio State University [facility]10-06-2023 History of Present illness Narrative* Adolph Taylor MD - 06/18/2023 9:42 AM EDT MOBILE SPINE INTERVENTION/SPINE CENTER Date: June 18, 2023 [...] Schizophrenia (HCC) follows with Dr Bill at [facility] Tobacco use disorder 1/2 ppd [...] W/WO RMVL TUBE OVARY 1982 Hysterectomy, [facility] FAMILY HISTORY Problem Relation Age [...] Urine pH, Pain [place] 4-10 06/02/2012 Specific Sidman,Ur Pain [place] Duplicate request 06/02/2012 Specific Sidman,Ur Pain [place] >1.020 06/02/2012 Oxidants,Ur Duplicate request [...] diagnostic tests reviewed for today's visit: The [facility] EMR was reviewed during thevisit IMAGING STUDIES: [...] but also diagnostic information that procedures provide. long term care pharmacist use of any opioid pain medication is [...] June 18, 2023 cc: Nga Ferrer [address] [facility] [id number] Results of consultation to be transmitted via electronic medical record for those providers who practice within [facility] or with access to Managed Systems via MD Connect, or via letter. documented in this encounterOhio State University [facility] Center10-05-2023 Miscellaneous Notes* Telephone Encounter - Vira Perez Ma - 06/17/2023 3:34 PM EDT Attempted to contact patient via telephone regarding upcoming NEW patient appointment with Dr. Hutchinson 06/18/23. [facility] relaying the message below: This is the [facility] calling regarding your upcoming appointment with Dr. Taylor. To avoid a delay in your care, please bring any radiology images that have [facility] on a disk to be viewed [...] any other insurance-related forms/documentation documented in this [facility]10-05-2023 Miscellaneous Notes* Telephone Encounter - Charla Willingham - 06/17/2023 2:25 PM EDT Patient scheduled for daam on 08/11/23 * Telephone Encounter - Flores Restrepo - 06/17/2023 1:57 PM EDT Patient is scheduled for surgery on 08-04-[address] Jamison. Please reach out and assist with scheduling post-op physical therapy as she should be seen approximately 1 week post-op. Thank you. Flores Allen documented in this [facility]10-05-2023 Miscellaneous Notes* Addendum Note - Perla Kennedy PA-C - 06/17/2023 11:32 AM EDTAddended by: PERLA KENNEDY on: 06/17/2023 11:32 AM Modules accepted: Orders documented in this [facility]09-29-2023 Miscellaneous Notes* Telephone Encounter - Kiley Harris APRN.CNP - 06/11/2023 12:48 PM EDT No answer and unable to leave a voicemail will send a letter notifying pt of negative x ray chest and WNL TSH. documented in this encounterOhio State University [facility] Center09-29-2023 History of Present illness Narrative* Carolyn Jamison [...] & Elbow Surgeon Department of Orthopaedic Surgery [facility] documented in this encounterOhio State University [facility] Center09-18-2023 Miscellaneous Notes* Telephone Encounter - Sheri Toth MA - 05/31/2023 11:53 AM EDT O2 order is ordered as a medication order. Script was faxed per TE 05/21/23 to [facility]. Received medical necessity form 05/25/23 from [facility]. Provider signed & nursing staff returned 05/25/23. [...] with ambulation and orders were sent to [facility] per 05/21 telephone encounter. Patient has not heard from [facility] re: adjustments in home O2. May need to refax PCP orders until she is given formal evaluation with [facility]. Funmilayo Diaz LPN documented in this encounterOhio State University [facility]xner [facility] Center09-18-2023 History of Present illness Narrative* Roro Loo MD - 05/31/2023 11:00 AM EDT Images from the original note were not included. . [facility] [place] Note Patient name: Albania Ramsey PCP: Teresa [...] k/uL 3.31 Monocytes % % 13.0 Abs Burt <0.87 k/uL 0.99 High Eosinophils % % [...] Dysthymic disorder Depression (non-psychotic) Lumbago Pulmonary embolus ([facility]) 25 years prior Schizophrenia ([facility]) follows with Dr Bill at [facility] Sn[place] Tobacco use disorder 1/2 ppd [...] respiratory failure -Ambulation oximetry testing for titration Roro Loo MD [facility] [place] documented in this encounterOhio State University [facility] Center09-18-2023 Instructions* Patient Instructions* Funmilayo Diaz LPN - 05/31/2023 10:34 AM EDT [facility] documented in this encounterOhio State University [facility]xner [facility] Center09-08-2023 Miscellaneous Notes* Telephone Encounter - Sheri Toth MA - 05/21/2023 1:27 PM EDT O2 for continuous order faxed to [facility]: [phone] with 05/21/23 OV notes. Sheri Toth MA documented in this [facility]09-08-2023 History of Present illness Narrative* Josh Butterfield CARLENE.WARD SERVICE SUPERVISOR - 05/21/2023 1:00 PM EDT Chief Complaint [...] discontinued if she did not have a ovbz-ya-otbq with myself. She does not followwith pulmonology. [...] - FLUTICASONE 250 MCG-SALMETEROL 50 MCG/DOSE BLISTR POWDR FOR INHALATION - OXYGEN (HOME THERAPY) 2. 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 This note was partly generated using [employer] voice recognition dictation and may contain some misspelled or inaccurate words missed on review. documented in this encounterOhio State University [facility]xner Medical Center08-31-2023 Miscellaneous Notes* Telephone Encounter - Machelle Colon [...] you. Nga Ferrer APRN.CNP documented in this encounterOhio State University Wexner Medical Center08-31-2023 NoteIMPRESSION: SOME PROGRESSION OF DEGENERATIVE CHANGES Teacher Physically Impaired: PSCB Transcribe Date/Time: May 13 2023 1:51P Dictated by : RAFIQ JENKINS MD This examination was interpreted and the report reviewed and electronically signed by: RAFIQ JENKINS MD on May 13 2023 1:57PM EST DIVISION OF [id number] NoteIMPRESSION: SOME PROGRESSION OF DEGENERATIVE CHANGES Teacher Physically Impaired: PSCB Transcribe Date/Time: May 13 2023 1:51P Dictated by : RAFIQ JENKINS MD This examination was interpreted and the report reviewed and electronically signed by: RAFIQ JENKINS MD on May 13 2023 1:57PM EST DIVISION OF [id number] History of Present illness Narrative* Nga Ferrer APRN.WARD SERVICE SUPERVISOR - 05/12/2023 10:20 AM EDT This is a 62 year old female who presents today with: Patient presents with: Follow Up: ER follow up HISTORY OF PRESENT ILLNESS: Albania Ramsey is a 62 year old female. Patient presents with: Follow Up: ER follow up HOSPITAL/ER FOLLOW UP: Reason for visit: Fall,Neck/Back Pain Which facility: [facility] ER Date of visit: 04/15/2023 Diagnosis: [...] Schizophrenia (HCC) follows with Dr Bill at [facility] Tobacco use disorder 1/2 ppd since [...] the plan.This note was partially generated using Quickshift voice recognition system. Note was reviewed for accuracy. There may be minor misspellings or grammar miscues with Dragon voice recognition. documented in this encounterOhio State University [facility] Center08-30-2023 History of Present illness Narrative* Crissy Burns [...] 12, 2023 10:26 AM documented in this encounterOhio State University [facility] Center08-30-2023 Instructions* Patient Instructions* Nga Ferrer APRN.CNP - 05/12/2023 10:01 AM EDT Get xray completed today Continue supportive care at home. May use ice to the area Recommend sitting on a cushion to help with tailbone pain. Follow up pending test results or sooner as needed. documented in this encounterOhio State University [facility] Center08-10-2023 Miscellaneous Notes* Telephone Encounter - Virgen Hardy [...] Please advise the patient. documented in this encounterOhio State University [facility] Center08-03-2023 Miscellaneous Notes* Telephone Encounter - Teresa Aguilar MD - 04/15/2023 3:35 PM EDT I agree with the advice given Teresa Aguilar MD * Telephone Encounter - Hernesto Scott RN - 04/15/2023 9:48 AM EDT [...] MECHANISM: Pt fell outside on neighbors cement [place] and it had toys all over it. [...] vision. 11. : Postmenopausal Protocols used: Head Dajrda-AUHGF-IN documented in this encounterOhio State University [facility]xner Medical Center08-03-2023 Hospital Discharge instructions Patient Education 04/15/2023 10:55:06 [...] alternate ice and heat. You may use oyiw-tgh-bihjdzs pain medicine to control pain, unless another [...] in one or both arms or legs 8379-[address] [employer]. [address] [place] [address]. All rights reserved. This information is not intended as a substitute for professional medical care. Always follow yourhealthcare professional's instructions. 04/15/2023 10:55:04 Back Sprain/Strain Back [...] Numbness in the groin or genital area 2331-[address] [employer] [address] [place] [address]. All rights reserved. This information is not intended as a substitute for professional medical care. Always follow yourhealthcare professional's instructions. Follow Up Care 04/15/2023 10:44:21 With:TERESA AGUILAR MD Address: [address] [place] [address]- When:2-4 days [facility] 08-03-2023 Note Discharge Instructions Thank you for allowing [facility] to assist you with your healthcare needs. [...] MD When Within 2-4 days Where: [address] [place], [place] [id number]- Allergies Demerol HCl (Hives) Desyrel (blotches over [...] Duration: 10 Days Printed Prescription Unchanged acetaminophen-hydrocodone (Corona 325- 5 mg oral tablet) 1 tab(s) [...] alternate ice and heat. You may use deot-sxb-zkaohmv pain medicine to control pain, unless another [...] in one or both arms or legs 5014-[address] [employer] [address] [place] [address]. All rights reserved. This information is not [...] Numbness in the groin or genital area 0235-[address] [employer] [address] [place] [address]. All rights reserved. This information is not intended as a substitute for professional medical care. Always follow yourhealthcare professional's instructions. Additional Information VACCINATE! IT SAVES LIVES! Members of the community who have not yet received the COVID-19 vaccine and would like to receive it can visit one of [facility] vaccine clinics. There are many vaccine clinic locations within the [facility]. For locations and available times, please visit www.[email or web address].[place].gov/. It is important to note that some COVID mobile vaccine clinics are held outdoors and may be canceled in rainy or stormy conditions. To learn more about pediatric vaccinations (ages 5-11), we invite you to visit the [facility] webpage. https://www.[employer]s.org/pages/9332-Wmmvf-Ivefpddzyoj-Ejughsxxnz-Qqgwj-Cpa stions.htmlTo learn more about the COVID-19 vaccine, we invite you to visit the CDC website for a list of frequently asked questions. https://www.cdc.gov/coronavirus/2019-ncov/vaccines/faq.html [facility] Patient Portal Access Instructions: Stay connected with your healthcare team and access your personal medical information anytime with the [facility] Patient Portal. If you would like a full copy of your medical records please contact the [facility] Medical Records Department Wednesday through Wednesday between 8a.m. and 4:30p.m. Please follow the directions below to access the portal: 1.Access the email account you provided upon registration to the [facility].2.Look for an invitation email from [facility].3.Open the email and access the invitation link: Accept Invitation to [facility]4.Fill in the required hester to create your account. Sign into [email or web address] with your username and password that you [...] you will allow to register on the [facility] Patient Portal for access to your information. You can also access the [facility] Patient Portal on the [employer]. Simply click on Health Records under [employer] and then click on the [employer] logo. HOW TO SAFELY DISPOSE OF PRESCRIPTION [...] Call your local pharmacy or go to http://Yappe.PharmacoPhotonics/1C1Nx4d to find one close to you.3.Make use of household items: Use cat litter or old coffee grounds to dispose medications if other options arenot available. Mix your drugs with these household products, seal them in an airtight container andthrow it into the garbage. Call [facility]: [phone] to be sure your drugs can be [...] and explained to me and I,ALBANIA RAMSEY Chung understand my current condition and have read and understand these discharge instructions. I have received a written copy of the plan/instructions. If I have questions, I am aware that I should contact my doctor. Patient/Interior Decorator Paperhanging Signature: Date/Time: Relationship to Patient: Witness Name/Signature: Date/Time: [facility]04-10-2023 Miscellaneous Notes* Telephone Encounter - Anna Russo LPN - 12/21/2022 9:27 AM EDT Patient notified of recommendations from WARD SERVICE SUPERVISOR, verbalizes understanding of instructions. Anna Russo LPN [...] be seen earlier. She may use any wstk-sfr-gjnslwz cold and cough medications as needed. Nga Ferrer APRN.WARD SERVICE SUPERVISOR * Telephone Encounter - Cathy Perez RN [...] medications Appt made for 12/23 with Nga Ferrer CNP despite recommendations to be evaluated sooner. Unable to do VV. Instructed patient to call if sx's worsen. Cathy Perez RN documented in this encounterOhio [facility]03-17-2023 History of Present illness Narrative* Cora Gil PA-C - 11/27/2022 8:21 AM EDT Images from the original note were not included. Neurology Outpatient Clinic Date: November 27, 2022 Patient Name: Albania Ramsey Referring provider: Nga Ferrer CNP [address] [facility] [address] Consult requested for memory loss by Nga Ferrer CNP. Recommendations will be communicated via shared medical record or US mail. Primary physician: Teresa Aguilar [address] [place] [address] Reason for Evaluation: forgetfulness Subjective HPI [place] [...] which included preparing to see the patient, dmyd-km-xqpj patient care, completing clinical documentation, obtaining and/or reviewing separately obtained history, performing a medically appropriate examination, counseling and educating the pat ient/family/caregiver, and ordering medications, tests, or procedures. Cora Gil PA-C [facility] Neurology This document has been created with the use of voice recognition technology. It may contain inaccuracies: (e.g. misspellings, inaccurate syntax or word sense) that have escaped review. documented in this encounterOhio State University [facility]03-03-2023 Miscellaneous Notes* Telephone Encounter - Anna Russo LPN - 11/13/2022 8:54 AM EST Patient notified of results, verbalizes understanding of instructions. Anna Russo LPN * Telephone Encounter - Nga Ferrer APRN.WARD SERVICE SUPERVISOR - 11/13/2022 7:56 AM EST Can you [...] me know if she has any questions. Ruy. Nga Ferrer APRN.NEAL documented in this encounterOhio State University [facility]02-23-2023 Miscellaneous Notes* Telephone Encounter - Machelle Colon [...] bilateral leg weakness. Protocols used: Dizziness - Uymvjei-UZNPG-YO documented in this encounterOhio State University [facility]12-29-2022 Miscellaneous Notes* Telephone Encounter - Chaparro Christianson Ma - 09/10/2022 4:01 PM EST Called pt and notified of message below from PCP. Verbalized understanding. Chaparro Christianson Ma * Telephone Encounter - Teresa Aguilar MD - 09/10/2022 3:59 PM EST OK to change to protonix as ordered Teresa Aguilar MD * Telephone Encounter - Stella Garcia Pss - 09/10/2022 12:49 PM EST Patient called stating the omeprazole is not working. Is there something else she can try. Please advise. documented in this encounterOhio State University [facility]12-29-2022 Miscellaneous Notes* Telephone Encounter - Teresa Aguilar [...] advise. Stella Garcia Pss documented in this encounterOhio State University [facility]12-16-2022 Hospital Discharge instructions Patient Education 08/28/2022 10:49:56 [...] doctor who specializes in eye care (an automatic chief) is very important. Home care Don t [...] or as directed by your healthcare provider [phone] [employer] [address] [place] [address]. All rights reserved. This information is not intended as a substitute for professional medical care. Always follow yourhealthcare professional's instructions. Follow Up Care 08/28/2022 10:35:32 With:[facility] Address: [address] [place] [address]- [facility] (1) When:1-2 days With:Go to emergency room if symptoms worsen Address:Unknown When:2-4 days With:TERESA AGUILAR MD Address: [address] [place] [address]- When:2-4 days [facility] 12-16-2022 Note Discharge Instructions Thank you for allowing [facility] to assist you with your healthcare needs. The following is importantdischarge information regarding your hospital visit. Diagnosis from Today's Visit Corneal ulcer of right eye Eye pain What to Do Next Instructions from Your Care Team Follow-up with [facility] or eye doctor of your choosing today or tomorrow. Take antibioticdrops as prescribed for corneal ulcer/abrasion. Return the emergency department if experience worsening symptoms, changes in vision, or any other care concern. No qualifying data available. Post Acute Orders No qualifying data available. You Need to Schedule the Following Appointments Follow Up with [facility] When Within 1-2 days Where: [address] [place] [address]- [facility] (1) Follow Up with Go to emergency room if symptoms worsen When Within 2-4 days Follow Up with TERESA AGUILAR MD When Within 2-4 days Where: [address] [place] [address]- Allergies Demerol HCl (Hives) Desyrel (blotches over [...] Days While awake Printed Prescription Unchanged acetaminophen-hydrocodone (Corona 325- 5 mg oral tablet) 1 tab(s) [...] doctor who specializes in eye care (an automatic chief) is very important. Home care Don t [...] or as directed by your healthcare provider [phone] [employer] [place] [address]. All rights reserved. This information is not intended as a substitute for professional medical care. Always follow yourhealthcare professional's instructions. Additional Information VACCINATE! IT SAVES LIVES! Members of the community who have not yet received the COVID-19 vaccine and would like to receive it can visit one of [facility] vaccine clinics. There are many vaccine clinic locations within the [facility]. For locations and available times, please visit [email or web address]. It is important to note that some COVID mobile vaccine clinics are held outdoors and may be canceled in rainy orstormy conditions. To learn more about pediatric vaccinations (ages 5-11), we invite you to visit the [facility] webpage. https://www.[facility].org/pages/6362-Edven-Iywklsvrmlt-Xuzometsav-Kekhm-Lcn stions.htmlTo learn more about the COVID-19 vaccine, we invite you to visit the [employer] website for a list of frequently asked questions. https://[employer]org/assets/Zmpmyqul-fbg-Lttgpwfi/ylbwf-Nmhtkal-Ohndlqjlco _Asked-Questions.pdf [facility] Patient [facility] Access Instructions: Stay connected with your healthcare team and access your personal medical information anytime with the [facility] Patient Portal. If you would like a full copy of your medical records please contact the [facility] Medical Records Department Wednesday through Wednesday between 8a.m. and 4:30p.m. Please follow the directions below to access the portal: 1.Access the email account you provided upon registration to the [facility].2.Look for an invitation email from [facility].3.Open the email and access the invitation link: Accept Invitation to [facility]4.Fill in the required hester to create your account. Sign into [email or web address] with your username and password that you [...] you will allow to register on the [facility] Patient Portal for access to your information. You can also access the [facility] Patient Portal on the [employer] nghia. Simply click on Health Records under [employer] and then click on the [facility] logo. HOW TO SAFELY DISPOSE OF PRESCRIPTION [...] Call your local pharmacy or go to http://bit.ly/2H5Eo8p to find one close to you.3.Make use of household items: Use cat litter or old coffee grounds to dispose medications if other options arenot available. Mix your drugs with these household products, seal them in an airtight container andthrow it into the garbage. Call [facility]: [phone] to be sure your drugs can be [...] aware that I should contact my doctor. Patient/Interior Decorator Paperhanging Signature: Date/Time: Relationship to Patient: Witness Name/Signature: Date/Time: [facility]11-20-2022 Hospital Discharge instructions Patient Education 08/02/2022 15:24:15 [...] loosen secretions in the nose and lungs. Qulv-utg-nldipls cold medicines will not shorten the length of time you re sick, but they may be helpful for the following symptoms: cough, sore throat, and nasal and sinus congestion. If you take prescription medicines, ask your healthcare provider or pharmacist which zzzv-fwn-hbxcxej medicines are safe to use. (Note: Don't [...] it goes along with a muffled voice [phone] [employer] [place] [address]. All rights reserved. This information is not intended as a substitute for professional medical care. Always follow yourhealthcare professional's instructions. Follow Up Care 08/02/2022 15:03:25 With:TERESA AGUILAR MD Address: [address] [place] [address]- When:2-4 days With:Go to emergency room if symptoms worsen Address:Unknown When:2-4 days [facility] [employer] 11-20-2022 Emergency department Discharge summary Discharge Instructions Thank you for allowing [facility] to assist you with your healthcare needs. [...] MD When Within 2-4 days Where: [address] [place], [place] [id number]- Follow Up with Go to emergency room [...] in each nostril Printed Prescription Unchanged acetaminophen-hydrocodone (Corona 325- 5 mg oral tablet) 1 tab(s) [...] not expected to produce life threatening symptoms. long term care pharmacist use of steroid medicine can lead to [...] may report side effects to FDA at 6-263-QEN-9095. What other drugs will affect fluticasone nasal? Tell your doctor about all your other medicines, especially: antifungal medicine; or antiviral medicine to treat hepatis C or HIV/AIDS. This list is not complete. Other drugs may affect fluticasone nasal, including prescription and ieie-qqh-uykuugq medicines, vitamins, and herbal products. Not all [...] to ensure that the information provided by [employer]. ('[employer]') is accurate, up-to-date, and complete, but no guarantee is made to that effect. Drug information contained herein may be time sensitive. [employer] information has been compiled for use by healthcare practitioners and consumers in the [place] and therefore [employer] does not warrant that uses outside of the [place] are appropriate, unless specifically indicated otherwise. QA on Requests drug information does not endorse drugs, diagnose patients or recommend therapy. Q[employer] Requests drug information isan informational resource designed to [...] effective or appropriate for any given patient. [employer] does not assume any responsibility for any aspect of healthcare administered with the aid of information [employer] provides. The information contained herein is not intended to cover all possible uses, directions, precautions, warnings, drug interactions, allergic reactions, or adverse effects. If you have questions about the drugs you are taking, check with your doctor, nurse or pharmacist. Copyright 6737-0091 [employer]. Version: 10.. Revision Date: 09/11/2019. Education Materials Viral Upper [...] loosen secretions in the nose and lungs. Pfok-vgb-pklcjbh cold medicines will not shorten the length of time you re sick, but they may be helpful for the following symptoms: cough, sore throat, and nasal and sinus congestion. If you take prescription medicines, ask your healthcare provider or pharmacist which odsf-etj-lxtkpog medicines are safe to use. (Note: Don't [...] it goes along with a muffled voice [phone] [employer] [place] [address]. All rights reserved. This information is not intended as a substitute for professional medical care. Always follow yourhealthcare professional's instructions. Additional Information VACCINATE! IT SAVES LIVES! Members of the community who have not yet received the COVID-19 vaccine and would like to receive it can visit one of [facility] vaccine clinics. There are many vaccine clinic locations within the [facility]. For locations and available times, please visit [email or web address]. It is important to note that some COVID mobile vaccine clinics are held outdoors and may be canceled in rainy orstormy conditions. To learn more about pediatric vaccinations (ages 5-11), we invite you to visit the [facility] webpage. https://www.[facility].org/pages/4974-Jennw-Stbyciddroz-Usjsapgwth-Bkvjk-Ulz stions.htmlTo learn more about the COVID-19 vaccine, we invite you to visit the [facility] website for a list of frequently asked questions. https://burchard.[facility]/assets/Ipxduayv-sxh-Vylvnktw/lbnex-Lkidwwy-Lnrccouico _Asked-Questions.pdf [facility] Patient Portal Access Instructions: Stay connected with your healthcare team and access your personal medical information anytime with the [facility] Patient Portal. If you would like a full copy of your medical records please contact the [facility] Medical Records Department Wednesday through Wednesday between 8a.m. and 4:30p.m. Please follow the directions below to access the portal: 1.Access the email account you provided upon registration to the [facility].2.Look for an invitation email from [facility].3.Open the email and access the invitation link: Accept Invitation to [facility]4.Fill in the required hester to create your account. Sign into [email or web address] with your username and password that you [...] you will allow to register on the [facility] Patient Portal for access to your information. You can also access the [facility] Patient Portal on the [employer]. Simply click on Health Records under [employer] and then click on the [employer] logo. HOW TO SAFELY DISPOSE OF PRESCRIPTION [...] Call your local pharmacy or go to http://Yappe.PharmacoPhotonics/6N2Wb6o to find one close to you.3.Make use of household items: Use cat litter or old coffee grounds to dispose medications if other options arenot available. Mix your drugs with these household products, seal them in an airtight container andthrow it into the garbage. Call [facility]: [phone] to be sure your drugs can be [...] aware that I should contact my doctor. Patient/Interior Decorator Paperhanging Signature: Date/Time: Relationship to Patient: Witness Name/Signature: Date/Time: [facility]10-11-2022 Hospital Discharge instructions Patient Education 06/23/2022 12:03:52 [...] the ears or bruising around the eyes [phone] [employer] [address] [place] [address], [place] [address]. All rights reserved. This information is not [...] that is made worse with each breath [phone] [employer] [place] [address]. All rights reserved. This information is not intended as a substitute for professional medical care. Always follow yourhealthcare professional's instructions. Follow Up Care 06/23/2022 10:27:51 With:[facility] Address: When:2-4 days With:TERESA AGUILAR MD Address: [address] [place] [address]- When:2-4 days With:Go to emergency room if symptoms worsen Address:Unknown When:2-4 days [facility] 10-11-2022 Note Discharge Instructions Thank you for allowing [facility] to assist you with your healthcare needs. The following is importantdischarge information regarding your hospital visit. Diagnosis from Today's Visit Hyperventilation Numbness/tingling Weakness or fatigue What to Do Next Instructions from Your Care Team See your automatic chief about further eye evaluation. No qualifying data available. Post Acute Orders No qualifying data available. You Need to Schedule the Following Appointments Follow Up with [facility] When Within 2-4 days Where: Follow Up with TERESA AGUILAR MD When Within 2-4 days Where: [address] [place] [address]- Follow Up with Go to emergency room [...] Duration: 1 Days Printed Prescription Unchanged acetaminophen-hydrocodone (Corona 325- 5 mg oral tablet) 1 tab(s) [...] the ears or bruising around the eyes [phone] [employer] [address] [place] [address]. All rights reserved. This information is not [...] that is made worse with each breath [phone] [employer] [place] [address]. All rights reserved. This information is not intended as a substitute for professional medical care. Always follow yourhealthcare professional's instructions. Additional Information VACCINATE! IT SAVES LIVES! Members of the community who have not yet received the COVID-19 vaccine and would like to receive it can visit one of [facility] vaccine clinics. There are many vaccine clinic locations within the [facility]. For locations and available times, please visit [email or web address]. It is important to note that some COVID mobile vaccine clinics are held outdoors and may be canceled in rainy orstormy conditions. To learn more about pediatric vaccinations (ages 5-11), we invite you to visit the [facility] webpage. https://www.[facility].org/pages/6460-Dpfkb-Wzmzrmocdnf-Udbhghkhar-Kjwxw-Mmp stions.htmlTo learn more about the COVID-19 vaccine, we invite you to visit the [employer] website for a list of frequently asked questions. https://burchard[employer]/assets/Xpjlisjw-rbx-Eokfdhxk/lxpqr-Ntkkown-Iqftnhmmwu _Asked-Questions.pdf [facility] Patient Portal Access Instructions: Stay connected with your healthcare team and access your personal medical information anytime with the [facility] Patient Portal. If you would like a full copy of your medical records please contact the [facility] Medical Records Department Wednesday through Wednesday between 8a.m. and 4:30p.m. Please follow the directions below to access the portal: 1.Access the email account you provided upon registration to the [facility].2.Look for an invitation email from [facility].3.Open the email and access the invitation link: Accept Invitation to [facility]4.Fill in the required hester to create your account. Sign into [email or web address] with your username and password that you [...] you will allow to register on the [facility] Patient Portal for access to your information. You can also access the [facility] Patient Portal on the [employer] nghia. Simply click on Health Records under [employer] and then click on the [facility] logo. HOW TO SAFELY DISPOSE OF PRESCRIPTION [...] Call your local pharmacy or go to http://bit.ly/3T1Gx5s to find one close to you.3.Make use of household items: Use cat litter or old coffee grounds to dispose medications if other options arenot available. Mix your drugs with these household products, seal them in an airtight container andthrow it into the garbage. Call [facility]: [phone] to be sure your drugs can be [...] aware that I should contact my doctor. Patient/Interior Decorator Paperhanging Signature: Date/Time: Relationship to Patient: Witness Name/Signature: Date/Time: [facility]10-11-2022 Note ORIGINAL HISTORY: Pain, trauma COMPARISON: No [...] appearance. IMPRESSION: No acute fracture. Interpreted by: Kareem Hamilton MD Preliminary Report By: Kareem Hamilton MD Electronically signed By Kareem Hamilton MD Dictated Date: 06/23/2022 11:45:35 AM Prelim Date: 06/23/2022 11:46:36 AM Sign Date: 06/23/2022 11:46:36 AM Ordering Provider: [facility]10-11-2022 Note ORIGINAL HISTORY: Pain, trauma COMPARISON: 29 [...] are intact. IMPRESSION: Unremarkable examination. Interpreted by: Kareem Hamilton MD Preliminary Report By: Kareem Hamilton MD Electronically signed By Kareem Hamilton MD Dictated Date: 06/23/2022 11:38:29 AM Prelim Date: 06/23/2022 11:39:22 AM Sign Date: 06/23/2022 11:39:22 AM Ordering Provider: [facility]10-11-2022 Note ORIGINAL HISTORY: Pain, trauma COMPARISON: No [...] appearance. IMPRESSION: No acute fracture. Interpreted by: Kareem Hamilton MD Preliminary Report By: Kareem Hamilton MD Electronically signed By Kareem Hamilton MD Dictated Date: 06/23/2022 11:45:35 AM Prelim Date: 06/23/2022 11:46:36 AM Sign Date: 06/23/2022 11:46:36 AM Ordering Provider: [facility]10-11-2022 Note ORIGINAL HISTORY: Pain, trauma COMPARISON: 29 [...] are intact. IMPRESSION: Unremarkable examination. Interpreted by: aKreem Hamilton MD Preliminary Report By: Kareem Hamilton MD Electronically signed By Kareem Hamilton MD Dictated Date: 06/23/2022 11:38:29 AM Prelim Date: 06/23/2022 11:39:22 AM Sign Date: 06/23/2022 11:39:22 AM Ordering Provider: [facility]09-28-2022 Instructions* Patient Instructions* Nga Ferrer APRN.CNP - 06/10/2022 11:03 AM EDT Schedule appointment for physical therapy to work on balance. Be mindful of position changes. Continue with NSAIDS such as ibuprofen 600-800 mg every 6-8 hours as needed for pain. May apply iceand heat the area. Follow up as needed or sooner if symptoms are not improving. documented in this encounterOhio [facility]09-28-2022 History of Present illness Narrative* Nga Ferrer APRN.CNP - 06/10/2022 10:40 AM EDT This is [...] Schizophrenia (HCC) follows with Dr Bill at [facility] Tobacco use disorder 1/2 ppd since [...] APRN.NEAL This note was partially generated using Quickshift voice recognition system. Note was reviewed for accuracy. There may be minor misspellings or grammar miscues with [employer]hift voice recognition. documented in this encounterOhio State University [facility]09-26-2022 Miscellaneous Notes* Telephone Encounter - Machelle Colon [...] but uncertain why. Protocols used: Falls and Ecvctrs-GPZNL-OL documented in this encounterOhio State University [facility]09-07-2022 Miscellaneous Notes* Letter - Mammography Coordinator - 05/20/2022 12:40 PM EDT May 20, 2022 PID: [id number] [place] Ramsey [address] [facility] [address] [place] [address] Dear Ms. Ramsey, We are pleased to [...] report will be kept on file at [facility] as part of your permanent medical record and are available for your continuing care. Thank you for allowing us to help in meeting your health care needs. Sincerely, Dr. Harvey Interpreting Radiologist [facility] (Normal over 40) documented in this encounterOhio State University [facility] Center09-07-2022 History of Present illness Narrative* RT Janay(R) [...] 20, 2022 8:08 AM documented in this encounterOhio State University [facility] Center08-29-2022 History of Present illness Narrative* Teresa Aguilar MD - 05/11/2022 2:20 PM EDT Chief Complaint Patient presents with: ER F/U: [facility] on 05/05/22, fell and injured right ankle HPI [place]ia Ramsey is a 61 year old female who presents here today for an ED follow up. Pt here today with her son for an [facility] ED visit on 05/05/22. Pt has not been seen in the office in two years. Pt came into [facility] ED on 05/05/22 due to a fall and right ankle pain. She states that forthe past month she has been falling almost daily. She states her falls are unexplained, denies feeling dizzy, light headed, not tripping over anything, legs are not giving out or going weak. She was given a brace to wear and Corona for pain. She states she is not [...] Schizophrenia (HCC) follows with Dr Bill at [facility] Tobacco use disorder 1/2 ppd since [...] TESTING Discontinued HPV TESTING Discontinued Data reviewed [facility] ER reports and imaging ASSESSMENT/PLAN: 1. [...] Past Histories independently gathered by the clinical senior safety support manager and the remaining scribed note accurately describes [...] PM. Lennie Khan Ma documented in this encounterOhio State University [facility]08-29-2022 Nurse Note* Lennie Khan Ma - 05/11/2022 [...] FALLS Prevention Safety Plan documented in this encounterOhio State University [facility] Center08-23-2022 Hospital Discharge instructions Patient Education 05/05/2022 17:40:30 [...] move any body part near the wound [phone] [employer] [address] [place] [address], [place] [address]. All rights reserved. This information is not [...] thin towel or cloth. You may use xpvt-rei-gquykqm pain medicine (NSAIDS or nonsteroidal anti- inflammatory [...] or is irritated You re-injure your ankle [id number] [employer] [address] [place] [address]. All rights reserved. This information is not intended as a substitute for professional medical care. Always follow yourhealthcare professional's instructions. Follow Up Care 05/05/2022 17:05:08 With:TERESA AGUILAR MD Address: [address] [place] [address]- When:3-5 days [facility] 08-23-2022 Note Discharge Instructions Thank you for allowing [facility] to assist you with your healthcare needs. The following is importantdischarge information regarding your hospital visit. Diagnosis from Today's Visit Ankle sprain Ankle pain-swelling What to Do Next Instructions from Your Care Team Discharge Home Equipment - Ordered -- Ankle Splint, 99 month(s), 05/05/22 17:38:00 EDT Post Acute Orders No qualifying data available. You Need to Schedule the Following Appointments Follow Up with TERESA AGUILAR MD When Within 3-5 days Where: [address] [place], [place] [id number]- Allergies Demerol HCl (Hives) Desyrel (blotches over body) predniSONE (stomach problems) erythromycin (rash) morphine (rash over body) doxycycline (Hives) Medications Please ask your primary doctor or pharmacist before taking any other medication not listed, including over the counter drugs, herbal medications, vitamins and or supplements as they may interact withyour home medications. What How Much When Why Instructions Last Dose New acetaminophen-hydrocodone (Corona 325- 5 mg oral tablet) 1 tab(s) [...] and lenka droe KOE done) Hycet, Lorcet, Corona, Verdrocet, Vicodin, Xodol, Zamicet What is the [...] may report side effects to FDA at 8-080-ZVE-[phone]. What other drugs will affect acetaminophen and [...] affect acetaminophen and hydrocodone, including prescription and rkja-yxu-ykstzvv medicines, vitamins, and herbal products. Not all [...] to ensure that the information provided by [employer] ('[employer]') is accurate, up-to-date, and complete, but no guarantee is made to that effect. Drug information contained herein may be time sensitive. [employer] information has been compiled for use by healthcare practitioners and consumers in the [place] and therefore [employer] does not warrant that uses outside of the [place] are appropriate, unless specifically indicated otherwise. [employer] Request[employer] drug information does not endorse drugs, diagnose patients or recommend therapy. [employer] drug information isan informational resource designed to [...] effective or appropriate for any given patient. [employer] does not assume any responsibility for any aspect of healthcare administered with the aid of information [facility] provides. The information contained herein is not intended to cover all possible uses, directions, precautions, warnings, drug interactions, allergic reactions, or adverse effects. If you have questions about the drugs you are taking, check with your doctor, nurse or pharmacist. Copyright 1915-1650 [employer]. Version: 16.03. Revision Date: 10/15/2020. Education Materials [...] move any body part near the wound [id number] [employer] [address] [place] [address]. All rights reserved. This information is not [...] thin towel or cloth. You may use gihe-taf-hywnbdv pain medicine (NSAIDS or nonsteroidal anti- inflammatory [...] or is irritated You re-injure your ankle [id number] [employer] [address] [place] [address]. All rights reserved. This information is not intended as a substitute for professional medical care. Always follow yourhealthcare professional's instructions. Additional Information VACCINATE! IT SAVES LIVES! Members of the community who have not yet received the COVID-19 vaccine and would like to receive it can visit one of [facility] vaccine clinics. There are many vaccine clinic locations within the [facility]. For locations and available times, please visit [email or web address]. It is important to note that some COVID mobile vaccine clinics are held outdoors and may be canceled in rainy orstormy conditions. To learn more about pediatric vaccinations (ages 5-11), we invite you to visit the [facility] webpage. [email or web address] learn more about the COVID-19 vaccine, we invite you to visit the [facility] website for a list of frequently asked questions. [email or web address] [facility] Patient Portal Access Instructions: Stay connected with your healthcare team and access your personal medical information anytime with the [facility]. If you would like a full copy of your medical records please contact the [facility] Medical Records Department Wednesday through Wednesday between 8a.m. and 4:30p.m. Please follow the directions below to access the portal: 1.Access the email account you provided upon registration to the [facility].2.Look for an invitation email from [facility].3.Open the email and access the invitation link: Accept Invitation to [facility]4.Fill in the required hester to create your account. Sign into [email or web address] with your username and password that you [...] you will allow to register on the [facility] Patient Portal for access to your information. You can also access the [facility] Patient Portal on the [employer]. Simply click on Health Records under HealthData and then click on the [employer] logo. HOW TO SAFELY DISPOSE OF PRESCRIPTION [...] Call your local pharmacy or go to http://bit.ly/3M3Wr2g to find one close to you.3.Make use of household items: Use cat litter or old coffee grounds to dispose medications if other options arenot available. Mix your drugs with these household products, seal them in an airtight container andthrow it into the garbage. Call [facility]: [phone] to be sure your drugs can be [...] aware that I should contact my doctor. Patient/Interior Decorator Paperhanging Signature: Date/Time: Relationship to Patient: Witness Name/Signature: Date/Time: [facility]08-23-2022 Note ORIGINAL EXAMINATION: THREE XRAY VIEWS OF [...] Sign Date: 05/05/2022 5:37:13 PM Ordering Provider: [facility] Note ORIGINAL EXAMINATION: THREE XRAY VIEWS OF [...] Sign Date: 05/05/2022 5:37:13 PM Ordering Provider: [facility]05-19-2022 Hospital Discharge instructions Patient Education 01/29/2022 17:41:31 [...] the ears or bruising around the eyes [phone] [employer] [address] [place] [address]. All rights reserved. This information is not intended as a substitute for professional medical care. Always follow yourhealthcare professional's instructions. Follow Up Care 01/29/2022 16:58:09 With:TERESA AGUILAR MD Address: [address] [place] [address]- When:2-4 days [facility] 04-28-2022 History of Present illness Narrative* RT [...] 08, 2022 2:11 PM [facility] of Present illness Narrative* Crissy BurnsRt), Kayla - 10/02/2020 10:50 AM EST Radiology Service [...] 02, 2020 10:51 AM [facility] No data available for this section [facility] Evaluation note* Diagnosis Chronic right shoulder pain Pain in joint, shoulder region documented in this encounter [facility] note* Diagnosis Encounter for screening mammogram for breast cancer documented in this encounter [facility] note* Diagnosis Sprain of ligament of [...] specified viral diseases documented in this encounter [facility] note* Diagnosis Encounter for screening mammogram for malignant neoplasm of breast Other screening mammogram documented in this encounter [facility] note* Diagnosis Fall, initial encounter- Primary Balance problem Other symptoms involving nervous and musculoskeletal systems Acute midline low back pain without sciatica documented in this encounter [facility] noteNo assessment information availableWFostoria City [facility] Work Phone: Evaluation note* Diagnosis Chest pain, unspecified type- Primary Forgetfulness Other general symptoms Shortness of breath Dizziness Dizziness and giddiness documented in this encounter [facility] note* Diagnosis Right shoulder pain, unspecified chronicity- Primary documented in this encounter [facility] note* Diagnosis Hospital discharge follow-up- Primary Other follow-up examination Fall, initial encounter Acute pain of left shoulder Tail bone pain Other disorder of coccyx [facility] Diagnosis Narrowing of lumbar intervertebral disc space- Primary Degeneration of lumbar or lumbosacral intervertebral disc [facility]* Diagnosis Chronic obstructive pulmonary disease, unspecified COPD type (HCC)- Primary Oxygen dependent Dependence on supplemental oxygen [facility]* Diagnosis Chronic obstructive pulmonary disease, unspecified COPD type (HCC)- Primary Cigarette smoker Tobacco use disorder Chronic hypoxemic respiratory failure (HCC) Chronic respiratory failure [facility]* Diagnosis Primary osteoarthritis of right shoulder- Primary Primary localized osteoarthrosis, shoulder region [facility]* Diagnosis Primary osteoarthritis of right shoulder- [...] not elsewhere classified [facility]* Diagnosis SI joint arthritis- Primary Sacroiliitis, not elsewhere classified Narrowing of lumbar intervertebral disc space Degeneration of lumbar or lumbosacral intervertebral disc Primary osteoarthritis of right shoulder Primary localized osteoarthrosis, shoulder region Chronic right shoulder pain Pain in joint, shoulder region Impingement syndrome of right shoulder Other affections of shoulder region, not elsewhere classified [facility]* Diagnosis SI joint arthritis- Primary Sacroiliitis, not elsewhere classified Primary osteoarthritis of right shoulder Primary localized osteoarthrosis, shoulder region Chronic right shoulder pain Pain in joint, shoulder region Impingement syndrome of right shoulder Other affections of shoulder region, not elsewhere classified [facility]* Diagnosis Encounter for screening mammogram for breast cancer Primary osteoarthritis of right shoulder Primary localized osteoarthrosis, shoulder region Chronic right shoulder pain Pain in joint, shoulder region Impingement syndrome of right shoulder Other affections of shoulder region, not elsewhere classified [facility]* Diagnosis Primary osteoarthritis of right shoulder [...] not elsewhere classified [facility]* Diagnosis Chronic obstructive pulmonary disease, unspecified COPD type (HCC) Primary osteoarthritis of right shoulder Primary localized osteoarthrosis, shoulder region Chronic right shoulder pain Pain in joint, shoulder region Impingement syndrome of right shoulder Other affections of shoulder region, not elsewhere classified SI joint arthritis Sacroiliitis, not elsewhere classified [facility]* Diagnosis Chronic obstructive pulmonary disease, unspecified COPD type (HCC) Primary osteoarthritis of right shoulder Primary localized osteoarthrosis, shoulder region Chronic right shoulder pain Pain in joint, shoulder region Impingement syndrome of right shoulder Other affections of shoulder region, not elsewhere classified SI joint arthritis Sacroiliitis, not elsewhere classified [facility]* Diagnosis COPD, severe (HCC)- Primary Chronic [...] not elsewhere classified [facility]* Diagnosis 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 Shoulder joint replacement by other means SI joint arthritis Sacroiliitis, not elsewhere classified [facility]* Diagnosis Narrowing of lumbar intervertebral disc space- Primary Degeneration of lumbar or lumbosacral intervertebral disc SI joint arthritis Sacroiliitis, not elsewhere classified SI joint arthritis Sacroiliitis, not elsewhere classified [facility]* Diagnosis Chronic right shoulder pain- Primary Pain in joint, shoulder region SI joint arthritis Sacroiliitis, not elsewhere classified [facility]* Diagnosis Status post reverse total replacement of right shoulder- Primary [facility]* Diagnosis Chronic right shoulder pain- Primary Pain in joint, shoulder region [facility]* Diagnosis Acute pain of right shoulder- Primary Status post reverse total replacement of right shoulder [facility]* Diagnosis Multiple lung nodules- Primary Other nonspecific abnormal finding of lung field Lung nodules Other nonspecific abnormal finding of lung field [facility]* Diagnosis Chronic obstructive pulmonary disease, unspecified COPD type (HCC) [facility]* Diagnosis Status post reverse total replacement of right shoulder- Primary [facility]* Diagnosis COPD with exacerbation (HCC)- Primary Obstructive chronic bronchitis with exacerbation [facility]* Diagnosis BPPV (benign paroxysmal positional vertigo), unspecified laterality [facility]* Diagnosis Chronic right shoulder pain- Primary Pain in joint, shoulder region documented [facility]* Diagnosis Screening for colon cancer- Primary Special screening for malignant neoplasms, colon documented [facility]* Diagnosis BPPV (benign paroxysmal positional vertigo), unspecified laterality [facility]* Diagnosis Status post reverse total replacement of right shoulder- Primary documented [facility]* Diagnosis Status post reverse total replacement of right shoulder- Primary Right shoulder pain, unspecified chronicity documented [facility]* Diagnosis Multiple lung nodules- Primary Other nonspecific abnormal finding of lung field Cigarette smoker Tobacco use disorder Persistent cough for 3 weeks or longer [facility]* Diagnosis Lung nodules Other nonspecific abnormal finding of lung field [facility] Diagnosis Status post reverse total replacement of right shoulder Right shoulder pain, unspecified chronicity [facility]* Diagnosis Right shoulder pain, unspecified chronicity- [...] Tobacco use disorder documented in this encounter [facility] note* Diagnosis Status post reverse total replacement of right shoulder Right shoulder pain, unspecified chronicity documented in this encounter [facility] note* Diagnosis Status post reverse total replacement of right shoulder Vitamin D deficiency Unspecified vitamin D deficiency BPPV (benign paroxysmal positional vertigo), unspecified laterality documented in this encounter [facility] note* Diagnosis COPD, severe (HCC)- Primary Chronic airway obstruction, not elsewhere classified Oxygen dependent Dependence on supplemental oxygen Asthma, unspecified asthma severity, unspecified whether complicated, unspecified whether persistent documented in this encounter [facility] note* Diagnosis Primary osteoarthritis of right [...] joint, shoulder region documented in this encounter [facility] note* Diagnosis Primary osteoarthritis of right [...] bronchitis with exacerbation [facility]* Diagnosis Primary osteoarthritis of right shoulder [...] oxygen therapy- Primary [facility]* Diagnosis Primary osteoarthritis of right shoulder [...] oxygen therapy- Primary [facility]* Diagnosis Primary osteoarthritis of right shoulder [...] oxygen therapy- Primary [facility]- Primary [facility]* Diagnosis Tail bone pain Other disorder [...] not elsewhere classified documented in this encounter [facility] note* Diagnosis Primary osteoarthritis of right [...] for breast cancer documented in this encounter [facility] note* Diagnosis Primary osteoarthritis of right [...] Shortness of breath [facility] Diagnosis Primary osteoarthritis of right shoulder [...] Shortness of breath [facility]* Diagnosis Primary osteoarthritis of right shoulder [...] pain, unspecified chronicity [facility] Diagnosis Primary osteoarthritis of right shoulder [...] Screening for depression documented in this encounter [facility] note* Diagnosis Cough Primary osteoarthritis of [...] not elsewhere classified [facility]* Diagnosis Primary osteoarthritis of right shoulder [...] of lung field documented in this encounter [facility] note* Diagnosis Primary osteoarthritis of right [...] of lung field documented in this encounter [facility] note* Diagnosis Primary osteoarthritis of right [...] of right shoulder documented in this encounter [facility] note* Diagnosis Primary osteoarthritis of right [...] or longer- Primary documented in this encounter [facility] note* Diagnosis Primary osteoarthritis of right [...] vertigo), unspecified laterality [facility]* Diagnosis Primary osteoarthritis of right shoulder [...] pain, unspecified chronicity documented in this encounter [facility] note* Diagnosis Primary osteoarthritis of right [...] COPD type (HCC) documented in this encounter [facility] note* Diagnosis Primary osteoarthritis of right [...] of right shoulder [facility]* Diagnosis Primary osteoarthritis of right shoulder [...] pain, unspecified chronicity documented in this encounter [facility] note* Diagnosis Primary osteoarthritis of right [...] single bacterial disease documented in this encounter [facility] note* Diagnosis Primary osteoarthritis of right [...] vertigo), unspecified laterality [facility]* Diagnosis Primary osteoarthritis of right shoulder [...] of unspecified site [facility]* Diagnosis Primary osteoarthritis of right shoulder [...] of right shoulder documented in this encounter [facility] note* Diagnosis Primary osteoarthritis of right [...] pain, unspecified chronicity documented in this encounter [facility] note* Diagnosis Primary osteoarthritis of right [...] Candidiasis of mouth documented in this encounter [facility] note* Diagnosis Primary osteoarthritis of right [...] vitamin D deficiency [facility] Diagnosis Primary osteoarthritis of right shoulder [...] and musculoskeletal systems [facility]* Diagnosis Primary osteoarthritis of right shoulder [...] symptoms involving cognition [facility]* Diagnosis Primary osteoarthritis of right shoulder [...] vertigo), unspecified laterality [facility]* Diagnosis Primary osteoarthritis of right shoulder [...] and musculoskeletal systems documented [facility]* Diagnosis Primary osteoarthritis of right shoulder [...] and musculoskeletal systems [facility]* Diagnosis Primary osteoarthritis of right shoulder [...] of lung field [facility] Diagnosis Primary osteoarthritis of right shoulder [...] Tobacco use current [facility]* ASHLEE Skinner: PERFORM Event Display: [facility] Patient Summary Authored Date: Discharge Instructions Thank you for allowing [facility] to assist you with your healthcare needs. [...] MD When Within 2-4 days Where: [address] [place] [address]- Allergies Demerol HCl (Hives) Desyrel (blotches over body) predniSONE (stomach problems) erythromycin (rash) morphine (rash over body) doxycycline (Hives) Medications Please ask your primary doctor or pharmacist before taking any other medication not listed, including over the counter drugs, herbal medications, vitamins and or supplements as they may interact [facility]. What How Much When Why Instructions Last Dose New meclizine (meclizine 25 mg oral tablet) 1 tab(s) by mouth Three (3) times a day Duration: 7 Days Printed Prescription New ondansetron (ondansetron 4 mg oral tablet, disintegrating) 1 tab(s) by mouth Every 6 hours Duration: 4 Days Printed Prescription Changed acetaminophen-hydrocodone (Corona 325- 5 mg oral tablet) 1 tab(s) by mouth Every 6 hours Ankle sprain Duration: 2 Days Changed acetaminophen-hydrocodone (Corona 325- 5 mg oral tablet) 1 tab(s) [...] may report side effects to FDA at [phone]-TJU-0621. What other drugs will affect acetaminophen and [...] affect acetaminophen and hydrocodone, including prescription and ytql-gaf-iqudqks medicines, vitamins, and herbal products. Not all [...] to ensure that the information provided by [employer]. ('[employer]') is accurate, up-to-date, and complete, but no guarantee is made to that effect. Drug information contained herein may be time sensitive. [employer] information has been compiled for use by healthcare practitioners and consumers in the [place] and therefore [employer] does not warrant that uses outside of the [place] are appropriate, unless specifically indicated otherwise. [employer] drug information does not endorse drugs, diagnose patients or recommend therapy. [employer] drug information isan informational resource designed to [...] effective or appropriate for any given patient. [employer] does not assume any responsibility for any aspect of healthcare administered with the aid of information [employer] provides. The information contained herein is not intended to cover all possible uses, directions, precautions, warnings, drug interactions, allergic reactions, or adverse effects. If you have questions about the drugs you are taking, check with your doctor, nurse or pharmacist. Copyright 0554-[address] [facility] [employer]. Version: 19.. Revision Date: 05/03/2023. ondansetron (oral) [...] may report side effects to FDA at 4-657-CHR-6811. What other drugs will affect ondansetron? Ondansetron [...] interact with ondansetron. This includes prescription and eret-zca-hymjxte medicines, vitamins, and herbal products. Give a [...] to ensure that the information provided by [employer]. ('[employer]') is accurate, up-to-date, and complete, but no guarantee is made to that effect. Drug information contained herein may be time sensitive. [employer] information has been compiled for use by healthcare practitioners and consumers in the [place] and therefore [employer] does not warrant that uses outside of the [place] are appropriate, unless specifically indicated otherwise. [employer] drug information does not endorse drugs, diagnose patients or recommend therapy. [employer] drug information isan informational resource designed to [...] effective or appropriate for any given patient. [employer] does not assume any responsibility for any aspect of healthcare administered with the aid of information [employer] provides. The information contained herein is not intended to cover all possible uses, directions, precautions, warnings, drug interactions, allergic reactions, or adverse effects. If you have questions about the drugs you are taking, check with your doctor, nurse or pharmacist. Copyright 8727-4014 [employer]. Version: 16.. Revision Date: 04/15/2023. albuterol inhalation [...] may report side effects to FDA at 0-561-ZZD-6178. What other drugs will affect albuterol inhalation? [...] may affect albuterol inhalation, including prescription and fwht-orl-viildmn medicines, vitamins, and herbal products. Not all [...] to ensure that the information provided by [employer]. ('[employer]') is accurate, up-to-date, and complete, but no guarantee is made to that effect. Drug information contained herein may be time sensitive. [employer] information has been compiled for use by healthcare practitioners and consumers in the [place] and therefore [employer] does not warrant that uses outside of the [place] are appropriate, unless specifically indicated otherwise. [employer] drug information does not endorse drugs, diagnose patients or recommend therapy. [employer] drug information isan informational resource designed to [...] effective or appropriate for any given patient. [employer] does not assume any responsibility for any aspect of healthcare administered with the aid of information [employer] provides. The information contained herein is not intended to cover all possible uses, directions, precautions, warnings, drug interactions, allergic reactions, or adverse effects. If you have questions about the drugs you are taking, check with your doctor, nurse or pharmacist. Copyright 7389-3631 [employer]. Version: 06.13. Revision Date: 07/31/2020. meclizine (KATHERINE helen goldie) AntivLandon salazar Bonine Max, Dramamine Less Drowsy, Dramamine Nausea [...] may report side effects to FDA at 5-451-BRQ-0812. What other drugs will affect meclizine? Using [...] drugs may affect meclizine, including prescription and rbwx-kha-mmqoifl medicines, vitamins, and herbal products. Tell your [...] to ensure that the information provided by [employer] ('[employer]') is accurate, up-to-date, and complete, but no guarantee is made to that effect. Drug information contained herein may be time sensitive. [employer] information has been compiled for use by healthcare practitioners and consumers in the [place] and therefore [employer] does not warrant that uses outside of the [place] are appropriate, unless specifically indicated otherwise. [employer] drug information does not endorse drugs, diagnose patients or recommend therapy. [employer] drug information isan informational resource designed to [...] effective or appropriate for any given patient. [facility] does not assume any responsibility for any aspect of healthcare administered with the aid of information [facility] provides. The information contained herein is not intended to cover all possible uses, directions, precautions, warnings, drug interactions, allergic reactions, or adverse effects. If you have questions about the drugs you are taking, check with your doctor, nurse or pharmacist. Copyright 7350-6265 [employer]. Version: 8.01. Revision Date: 05/11/2023. Education Materials Dizziness (Uncertain Cause) Dizziness is a common symptom. It may be described as lightheadedness, spinning, or feeling like you are going to faint. Dizziness can have many causes. Be sure to tell the healthcare provider about: All medicines you take, including prescription, jxiq-lzv-jjiozfd, herbs, and supplements Any other symptoms you [...] Chest, arm, neck, back, or jaw pain 7184-9858 [employer] [address] [place] [address], [place] [address]. All rights reserved. This information is not intended as a substitute for professional medical care. Always follow yourhealthcare professional's instructions. Additional Information VACCINATE! IT SAVES LIVES! Members of the community who have not yet received the COVID-19 vaccine and would like to receive it can visit one of [facility] vaccine clinics. There are many vaccine clinic locations within the [facility]. For locations and available times, please visit [email or web address] It is important to note that some COVID mobile vaccine clinics are held outdoors and may be canceled in rainy or stormy conditions. To learn more about pediatric vaccinations (ages 5-11), we invite you to visit the [facility] webpage. [email or web address]://[email or web address] [email or web address] learn more about the COVID-19 vaccine, we invite you to visit the CDC website for a list of frequently asked questions. https://www.cdc.gov/coronavirus/2019-ncov/vaccines/faq.html [place] [facility] Patient Portal Access Instructions: Stay connected with your healthcare team and access your personal medical information anytime with the [facility] Patient Portal. If you would like a full copy of your medical records please contact the [facility] Medical Records Department Wednesday through Wednesday between 8a.m. and 4:30p.m. Please follow the directions below to access the portal: 1.Access the email account you provided upon registration to the hospital.2.Look for an invitation email from [facility].3.Open the email and access the invitation link: Accept Invitation to [facility]4.Fill in the required hester to create your account. Sign into [email or web address] with your username and password that you [...] you will allow to register on the [facility] Patient Portal for access to your information. You can also access the [facility] Patient Portal on the [employer] nghia. Simply click on Health Records under [employer] and then click on the [employer] logo. HOW TO SAFELY DISPOSE OF PRESCRIPTION [...] Call your local pharmacy or go to [email or web address] to find one close to you.3.Make use of household items: Use cat litter or old coffee grounds to dispose medications if other options arenot available. Mix your drugs with these household products, seal them in an airtight container andthrow it into the garbage. Call [facility]: [phone] to be sure your drugs can be [...] been reviewed and explained to me and I,ROXY ALBANIA Chung understand my current condition and have read and understand these discharge instructions. I have received a written copy of the plan/instructions. If I have questions, I am aware that I should contact my doctor. 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 [place] [address] Xr Imaging Referral ID Status Reason Start Date Expiration Date V isits Requested Visits Authorized [id number] Closed Auto-Generate d Referral 10/30/2021 11/29/2022 1 1 [facility] for referral (narrative)* Diagnostic Procedure Only (Routine) - Pending Review Specialty Diagnoses / Procedures Referred By Josh redd Referred To Contact BR IMAGING Diagnoses Encounter for screening mammogram for breast cancer Procedures HIPOLITO SCREENING SCREENING MAMMOGRAPHY BI 2-VIEW BREAST INC Teresa Nation MD [address] [place] [address] Br Imaging [address] [place] [address] Referral ID Status Reason Start Date Expiration Date Visits Requested Visits Authorized [id number] Pending Review Auto-Generat ed Referral 03/11/2022 04/10/2023 1 1 [facility] for referral (narrative)* Diagnostic Procedure Only (Routine) - Authorized Specialty Diagnoses / Procedures Referred By Josh redd Referred To Contact BR IMAGING Diagnoses Encounter for screening mammogram for malignant neoplasm of breast Procedures HIPOLITO SCREENING SCREENING MAMMOGRAPHY BI 2-VIEW BREAST INC Teresa Nation MD [address] [place] [address] Br Imaging [address] [place] [address] Referral ID Status Reason Start Date Expiration Date Visits Requested Visits Authorized [id number] Authorized Auto-Generat ed Referral 05/11/2022 06/10/2023 1 1 T [facility] for referral (narrative)* Diagnostic Procedure Only (Routine) - Closed Specialty Diagnoses / Procedures Referred By Josh redd Referred To Contact BR IMAGING Diagnoses Encounter for screening mammogram for malignant neoplasm of breast Procedures HIPOLITO SCREENING SCREENING MAMMOGRAPHY BI 2-VIEW BREAST INC Teresa Nation MD [address] [place] [address] Br Imaging [address] [place] [address] Referral ID Status Reason Start Date Expiration Date V isits Requested Visits Authorized [id number] Closed Auto-Generate d Referral 05/11/2022 06/10/2023 1 1 [facility] for referral (narrative)* Diagnostic Procedure Only (Routine) - Pending Review Specialty Diagnoses / Procedures Referred By Contac t Referred To Contact XR IMAGING Diagnoses Right shoulder pain, unspecified chronicity Procedures XR SHOULDER GENERAL 3V OR MORE AP/TRUE AP/OTHER RIGHT RADEX SHOULDER COMPLETE MINIMUM 2 VIEWS Chester Freire MD [address] [place] [address] Xr Imaging Referral ID Status Reason Start Date Expiration Date Visits Requested Visits Authorized [id number] Pending Review Auto-Generat ed Referral 12/24/2022 01/23/2024 1 1 [facility] for referral (narrative)* Diagnostic Procedure Only (Routine) - Closed Specialty Diagnoses / Procedures Referred By Contac t Referred To Contact XR IMAGING Diagnoses Acute pain of left shoulder Procedures XR SHOULDER GENERAL 3V OR MORE AP/TRUE AP/OTHER LEFT RADEX SHOULDER COMPLETE MINIMUM 2 VIEWS Nga Ferrer APRN.WARD SERVICE SUPERVISOR [address] [place] [address] [place] [address] Referral ID Status Reason Start Date Expiration Date V isits Requested Visits Authorized [id number] Closed Auto-Generate d Referral 05/12/2023 06/10/2024 1 1 * Diagnostic Procedure Only (Routine) - Closed Specialty Diagnoses / Procedures Referred By Contac t Referred To Contact XR IMAGING Diagnoses Tail bone pain Procedures XR SACRUM/COCCYX 3V AP/LAT RADEX SACRUM & COCCYX MINIMUM 2 VIEWS Nga Ferrer APRN.WARD SERVICE SUPERVISOR [address] [place] [address] [place] [address] Referral ID Status Reason Start Date Expiration Date V isits Requested Visits Authorized [id number] Closed Auto-Generate d Referral 05/12/2023 06/10/2024 1 1 * Diagnostic Procedure Only (Routine) - Closed Specialty Diagnoses / Procedures Referred By Contac t Referred To Contact XR IMAGING Diagnoses Tail bone pain Procedures XR LUMBAR GENERAL 3V AP/LAT/L5-S1 RADEX SPINE LUMBOSACRAL 2/3 VIEWS Nga Ferrer APRN.CNP [address] [place] [address] [place] [address] Referral ID Status Reason Start Date Expiration Date V isits Requested Visits Authorized [id number] Closed Auto-Generate d Referral 05/12/2023 06/10/2024 1 1 [facility] for referral (narrative)* Outpatient Procedure (Routine) - Authorized Specialty Diagnoses / Procedures Referred By Contac t Referred To Contact [facility] Diagnoses Chronic obstructive pulmonary disease, unspecified COPD type (HCC) Procedures OXIMETRY WITH AMBULATION NONINVASIVE EAR/PULSE OXIMETRY MULTIPLE DETER Roro Loo MD [address] [address] [facility] [place] [address] [place], [place] [id number] Referral ID Status Reason Start Date Expiration Date Visits Requested Visits Authorized [id number] Authorized Auto-Generat ed Referral 05/31/2023 06/29/2024 1 1 * Outpatient Procedure (Routine) - Authorized Specialty Diagnoses / Procedures Referred By Contac t Referred To Contact [facility] Diagnoses Chronic obstructive pulmonary disease, unspecified COPD type (HCC) Procedures LUNG DIFFUSION CAPACITY (DLCO) DIFFUSING CAPACITY Roro Loo MD [address] [place] [address] Res[facility] [place] [id number] Referral ID Status Reason Start Date Expiration Date Visits Requested Visits Authorized [id number] Authorized Auto-Generat ed Referral 05/31/2023 06/29/2024 1 1 * Outpatient Procedure (Routine) - Pending Review Specialty Diagnoses / Procedures Referred By Josh t Referred To Contact [facility] Diagnoses Chronic obstructive pulmonary disease, unspecified COPD type (HCC) Procedures LUNG VOLUMES Roro Loo MD [address] [place] [address] [facility] [place] [address] [place] [address] Referral ID Status Reason Start Date Expiration Date Visits Requested Visits Authorized [id number] Pending Review Auto-Generat ed Referral 05/31/2023 06/29/2024 1 1 * Outpatient Procedure (Routine) - Authorized Specialty Diagnoses / Procedures Referred By Josh t Referred To Contact [facility] Diagnoses Chronic obstructive pulmonary disease, unspecified COPD type (HCC) Procedures SPIROMETRY WITH DILATOR IF OBSTRUCTED BRNCDILAT RSPSE SPMTRY PRE&POST-BRNCDILAT ADMN Roro Loo MD [address] [place] [address] [facility] [place] [address] [place] [address] Referral ID Status Reason Start Date Expiration Date Visits Requested Visits Authorized [id number] Authorized Auto-Generat ed Referral 05/31/2023 06/29/2024 1 1 [facility] for referral (narrative)* Diagnostic Procedure Only (Routine) - Pending Review Specialty Diagnoses / Procedures Referred By Josh t Referred To Contact BR IMAGING Diagnoses Encounter for screening mammogram for breast cancer Procedures HIPOLITO SCREENING SCREENING MAMMOGRAPHY BI 2-VIEW BREAST INC CAD Teresa Aguilar MD [address] [place] [address] Br Imaging [address] [place] [phone] Referral ID Status Reason Start Date Expiration Date Visits Requested Visits Authorized [id number] Pending Review Auto-Generat ed Referral 07/22/2024 1 1 [facility] for referral (narrative)* Diagnostic Procedure Only (Routine) - Pending Review Specialty Diagnoses / Procedures Referred By Contac t Referred To Contact XR IMAGING Diagnoses Chronic right shoulder pain Procedures XR SHOULDER GENERAL 3V OR MORE AP/TRUE AP/OTHER RIGHT RADEX SHOULDER COMPLETE MINIMUM 2 VIEWS Perla Kennedy PA-C [address] [place] [address] [place] [address] Referral ID Status Reason Start Date Expiration Date Visits Requested Visits Authorized [id number] Pending Review Auto-Generat ed Referral 09/21/2024 1 1 [facility] for referral (narrative)* Diagnostic Procedure Only (Routine) - Pending Review Specialty Diagnoses / Procedures Referred By Contac t Referred To Contact XR IMAGING Diagnoses Chronic right shoulder pain Procedures XR SHOULDER GENERAL 3V OR MORE AP/TRUE AP/OTHER RIGHT RADEX SHOULDER COMPLETE MINIMUM 2 VIEWS Perla Kennedy PA-C [address] [place] [address] [place] [address] Referral ID Status Reason Start Date Expiration Date Visits Requested Visits Authorized [id number] Pending Review Auto-Generat ed Referral 10/21/2023 2024 1 1 [facility] for referral (narrative)* Diagnostic Procedure Only (Routine) - Pending Review Specialty Diagnoses / Procedures Referred By Contac t Referred To Contact XR IMAGING Diagnoses Chronic right shoulder pain Procedures XR SHOULDER GENERAL 3V OR MORE AP/TRUE AP/OTHER RIGHT RADEX SHOULDER COMPLETE MINIMUM 2 VIEWS Perla Kennedy PA-C [address] [place] [address] [place] [address] Referral ID Status Reason Start Date Expiration Date Visits Requested Visits Authorized [id number] Pending Review Auto-Generat ed Referral 01/03/2024 02/01/2025 1 1 [facility] for referral (narrative)* Diagnostic Procedure Only (Routine) - Closed Specialty Diagnoses / Procedures Referred By Contac t Referred To Contact XR IMAGING Diagnoses Chronic right shoulder pain Procedures XR SHOULDER GENERAL 3V OR MORE AP/TRUE AP/OTHER RIGHT RADEX SHOULDER COMPLETE MINIMUM 2 VIEWS Perla Kennedy PA-C [address] [place] [address] [place] [address] Referral ID Status Reason Start Date Expiration Date V isits Requested Visits Authorized [id number] Closed Auto-Generate d Referral 01/03/2024 02/01/2025 1 1 T [facility] for referral (narrative)* Diagnostic Procedure Only (Routine) - Closed Specialty Diagnoses / Procedures Referred By Contac t Referred To Contact XR IMAGING Diagnoses Chronic right shoulder pain Procedures XR SHOULDER GENERAL 3V OR MORE AP/TRUE AP/OTHER RIGHT RADEX SHOULDER COMPLETE MINIMUM 2 VIEWS Perla Kennedy PA-C [address] [place] [address] [place] [address] Referral ID Status Reason Start Date Expiration Date V isits Requested Visits Authorized [id number] Closed Auto-Generate d Referral 11/16/2023 12/15/2024 1 1 [facility] for referral (narrative)* Diagnostic Procedure Only (Routine) - Closed Specialty Diagnoses / Procedures Referred By Contac t Referred To Contact XR IMAGING Diagnoses Chronic right shoulder pain Procedures XR SHOULDER GENERAL 3V OR MORE AP/TRUE AP/OTHER RIGHT RADEX SHOULDER COMPLETE MINIMUM 2 VIEWS Perla Kennedy PA-C [address] [place] [address] [place] [address] Referral ID Status Reason Start Date Expiration Date V isits Requested Visits Authorized [id number] Closed Auto-Generate d Referral 09/22/2023 10/20/2024 1 1 [facility] for referral (narrative)* Diagnostic Procedure Only (Routine) - Closed Specialty Diagnoses / Procedures Referred By Contac t Referred To Contact XR IMAGING Diagnoses Chronic right shoulder pain Procedures XR SHOULDER GENERAL 3V OR MORE AP/TRUE AP/OTHER RIGHT RADEX SHOULDER COMPLETE MINIMUM 2 VIEWS Perla Kennedy PA-C [address] [place] [address] [place] [address] Referral ID Status Reason Start Date Expiration Date V isits Requested Visits Authorized [id number] Closed Auto-Generate d Referral 10/21/2023 2024 1 1 [facility] for referral (narrative)* Diagnostic Procedure Only (Routine) - Closed Specialty Diagnoses / Procedures Referred By Contac t Referred To Contact XR IMAGING Diagnoses Left hip pain Procedures XR HIP GENERAL 3V PELV/AP/LAT LEFT RADEX HIP UNILATERAL WITH PELVIS 2-3 VIEWS Nga Ferrer, CARLENE.WARD SERVICE SUPERVISOR [address] [place] [address] [place] [address] Referral ID Status Reason Start Date Expiration Date V isits Requested Visits Authorized [id number] Closed Auto-Generate d Referral 10/11/2023 11/09/2024 1 1 [facility] for referral (narrative)* Diagnostic Procedure Only (Routine) - Closed Specialty Diagnoses / Procedures Referred By Contac t Referred To Contact XR IMAGING Diagnoses Chronic right shoulder pain Procedures XR SHOULDER GENERAL 3V OR MORE AP/TRUE AP/OTHER RIGHT RADEX SHOULDER COMPLETE MINIMUM 2 VIEWS Perla Kennedy PA-C [address] [place] [address] [place] [address] Referral ID Status Reason Start Date Expiration Date V isits Requested Visits Authorized [id number] Closed Auto-Generate d Referral 08/23/2023 09/21/2024 1 1 [facility] for referral (narrative)* Outpatient Procedure (Routine) - Authorized Specialty Diagnoses / Procedures [facility] Diagnoses Requires oxygen therapy Procedures SIX MINUTE WALK CARDIOPULMONARY EXERCISE STRESS Teresa Aguilar MD [address] [place] [address] [facility] [place] [address] [place] [address] Referral ID Status Reason Start Date Expiration Date Visits Requested Visits Authorized [id number] Authorized Auto-Generat ed Referral 05/25/2024 06/24/2025 1 1 [facility] for referral (narrative)* Diagnostic Procedure Only (Routine) - Closed Specialty Diagnoses / Procedures Referred By Contac t Referred To Contact XR IMAGING Diagnoses Acute pain of left shoulder Procedures XR SHOULDER GENERAL 3V OR MORE AP/TRUE AP/OTHER LEFT RADEX SHOULDER COMPLETE MINIMUM 2 VIEWS Nga Ferrer APRN.WARD SERVICE SUPERVISOR [address] [place] [id number] [place] [address] Referral ID Status Reason Start Date Expiration Date V isits Requested Visits Authorized [id number] Closed Auto-Generate d Referral 05/12/2023 06/10/2024 1 1 * Diagnostic Procedure Only (Routine) - Closed Specialty Diagnoses / Procedures Referred By Contac t Referred To Contact XR IMAGING Diagnoses Tail bone pain Procedures XR SACRUM/COCCYX 3V AP/LAT RADEX SACRUM & COCCYX MINIMUM 2 VIEWS Nga Ferrer APRN.CNP [address] [place] [address] [place] [address] Referral ID Status Reason Start Date Expiration Date V isits Requested Visits Authorized [id number] Closed Auto-Generate d Referral 05/12/2023 06/10/2024 1 1 * Diagnostic Procedure Only (Routine) - Closed Specialty Diagnoses / Procedures Referred By Contac t Referred To Contact XR IMAGING Diagnoses Tail bone pain Procedures XR LUMBAR GENERAL 3V AP/LAT/L5-S1 RADEX SPINE LUMBOSACRAL 2/3 VIEWS Nga Ferrer APRN.CNP [address] [place] [address] [place] [address] Referral ID Status Reason Start Date Expiration Date V isits Requested Visits Authorized [id number] Closed Auto-Generate d Referral 05/12/2023 06/10/2024 1 1 [facility] for referral (narrative)* Diagnostic Procedure Only (Routine) - New Request Specialty Diagnoses / Procedures Referred By Josh redd Referred To Contact BR IMAGING Diagnoses Encounter for screening mammogram for breast cancer Procedures HIPOLITO SCREENING W DUONG SCREENING DIGITAL BREAST TOMOSYNTHESIS BI SCREENING MAMMOGRAPHY BI 2-VIEW BREAST INC CAD Teresa Aguilar MD [address] [place] [address] Br Imaging [address] [place] [address] Referral ID Status Reason Start Date Expiration Date Visits Requested Visits Authorized [id number] New Request Auto-Generat ed Referral 05/31/2024 06/30/2025 1 1 [facility] for referral (narrative)* Outpatient Procedure (Routine) - Closed Specialty Diagnoses / Procedures Referred By Josh redd Referred To Contact [facility] Diagnoses COPD, severe (HCC) Requires oxygen therapy SOB (shortness of breath) Procedures OXIMETRY WITH AMBULATION NONINVASIVE EAR/PULSE OXIMETRY MULTIPLE DETER Nga Ferrer APRN.WARD SERVICE SUPERVISOR [address] [place] [address] [facility] [address] [place] [address] Referral ID Status Reason Start Date Expiration Date V isits Requested Visits Authorized [id number] Closed Auto-Generate d Referral 06/05/2024 09/12/2024 1 1 [facility] for referral (narrative)No reason for referral information availableWFostoria City [facility] Work Phone: Reason for visit Narrative* Diagnostic Procedure Only (Routine) - Closed Specialty Diagnoses / Procedures Referred By Contac t Referred To Contact XR IMAGING Diagnoses Chronic right shoulder pain Procedures XR SHOULDER GENERAL 3V OR MORE AP/TRUE AP/OTHER RIGHT RADEX SHOULDER COMPLETE MINIMUM 2 VIEWS Carolyn Jamison MD [address] [facility] [place] [address] Xr Imaging Referral ID Status Reason Start Date Expiration Date V isits Requested Visits Authorized [id number] Closed Auto-Generate d Referral 10/30/2021 11/29/2022 1 1 [facility] for visit Narrative* Diagnostic Procedure Only (Routine) - Closed Specialty Diagnoses / Procedures Referred By Contac t Referred To Contact BR IMAGING Diagnoses Encounter for screening mammogram for malignant neoplasm of breast Procedures HIPOLITO SCREENING SCREENING MAMMOGRAPHY BI 2-VIEW BREAST INC Teresa Nation MD [address] [place] [address] Br Imaging [address] [place] [address] Referral ID Status Reason Start Date Expiration Date V isits Requested Visits Authorized [id number] Closed Auto-Generate d Referral 05/11/2022 06/10/2023 1 1 [facility] for visit Narrative* Diagnostic Procedure Only (Routine) - Closed Specialty Diagnoses / Procedures Referred By Contac t Referred To Contact XR IMAGING Diagnoses Chronic right shoulder pain Procedures XR SHOULDER GENERAL 3V OR MORE AP/TRUE AP/OTHER RIGHT RADEX SHOULDER COMPLETE MINIMUM 2 VIEWS Perla Kennedy PA-C [address] [place] [address] [place] [address] Referral ID Status Reason Start Date Expiration Date V isits Requested Visits Authorized [id number] Closed Auto-Generate d Referral 01/03/2024 02/01/2025 1 1 [facility] for visit Narrative* Diagnostic Procedure Only (Routine) - Closed Specialty Diagnoses / Procedures Referred By Contac t Referred To Contact XR IMAGING Diagnoses Chronic right shoulder pain Procedures XR SHOULDER GENERAL 3V OR MORE AP/TRUE AP/OTHER RIGHT RADEX SHOULDER COMPLETE MINIMUM 2 VIEWS Perla Kennedy PA-C [address] [place] [address] [place] [address] Referral ID Status Reason Start Date Expiration Date V isits Requested Visits Authorized [id number] Closed Auto-Generate d Referral 11/16/2023 12/15/2024 1 1 [facility] for visit Narrative* Diagnostic Procedure Only (Routine) - Closed Specialty Diagnoses / Procedures Referred By Contac t Referred To Contact XR IMAGING Diagnoses Chronic right shoulder pain Procedures XR SHOULDER GENERAL 3V OR MORE AP/TRUE AP/OTHER RIGHT RADEX SHOULDER COMPLETE MINIMUM 2 VIEWS Perla Kennedy PA-C [address] [place] [address] [place] [address] Referral ID Status Reason Start Date Expiration Date V isits Requested Visits Authorized [id number] Closed Auto-Generate d Referral 09/22/2023 10/20/2024 1 1 [facility] for visit Narrative* Diagnostic Procedure Only (Routine) - Closed Specialty Diagnoses / Procedures Referred By Contac t Referred To Contact XR IMAGING Diagnoses Chronic right shoulder pain Procedures XR SHOULDER GENERAL 3V OR MORE AP/TRUE AP/OTHER RIGHT RADEX SHOULDER COMPLETE MINIMUM 2 VIEWS Perla Kennedy PA-C [address] [place] [address] [place] [address] Referral ID Status Reason Start Date Expiration Date V isits Requested Visits Authorized [id number] Closed Auto-Generate d Referral 10/21/2023 2024 1 1 [facility] for visit Narrative* Diagnostic Procedure Only (Routine) - Closed Specialty Diagnoses / Procedures Referred By Contac t Referred To Contact XR IMAGING Diagnoses Left hip pain Procedures XR HIP GENERAL 3V PELV/AP/LAT LEFT RADEX HIP UNILATERAL WITH PELVIS 2-3 VIEWS Nga Ferrer, CARLENE.WARD SERVICE SUPERVISOR [address] [place] [address] [place] [address] Referral ID Status Reason Start Date Expiration Date V isits Requested Visits Authorized [id number] Closed Auto-Generate d Referral 10/11/2023 11/09/2024 1 1 [facility] for visit Narrative* Diagnostic Procedure Only (Routine) - Closed Specialty Diagnoses / Procedures Referred By Contac t Referred To Contact XR IMAGING Diagnoses Chronic right shoulder pain Procedures XR SHOULDER GENERAL 3V OR MORE AP/TRUE AP/OTHER RIGHT RADEX SHOULDER COMPLETE MINIMUM 2 VIEWS Perla Kennedy PA-C [address] [place] [address] [place] [address] Referral ID Status Reason Start Date Expiration Date V isits Requested Visits Authorized [id number] Closed Auto-Generate d Referral 08/23/2023 09/21/2024 1 1 [facility] for visit Narrative* Diagnostic Procedure Only (Routine) - Closed Specialty Diagnoses / Procedures Referred By Contac t Referred To Contact XR IMAGING Diagnoses Acute pain of left shoulder Procedures XR SHOULDER GENERAL 3V OR MORE AP/TRUE AP/OTHER LEFT RADEX SHOULDER COMPLETE MINIMUM 2 VIEWS Nga Ferrer, CARLENE.WARD SERVICE SUPERVISOR [address] [place] [address] [place] [address] Referral ID Status Reason Start Date Expiration Date V isits Requested Visits Authorized [id number] Closed Auto-Generate d Referral 05/12/2023 06/10/2024 1 1 [facility] Summary Purpose Family History No Family History Records Found Relationship Condition Age at Onset Recorded Date/T clarisse Unknown Family History?Heart Disease Unknown October 31, 2015 7:36pm Family History?Heart Disease Unknown October 31, 2015 7:36pm Advance Directives No Advanced Directives Records FoundDocuments on File Type Date Recorded 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 Advance Directive(s) 11/28/2020 3:58 PM Advance Directive(s) 11/18/2020 8:49 AM Advance Directive(s) 11/21/2019 6:37 AM Advance Directive(s) 11/01/2018 9:53 AM Advance Directive(s) 10/19/2018 8:09 AM Advance Directive(s) 10/28/2010 9:04 PM Documents on File Type Date Recorded 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 No April 28, 2025 9:00pm Reason for Referral Specialty Diagnoses / Procedures Referred By Contac t Referred To Contact Diagnoses Chronic obstructive pulmonary disease, unspecified COPD type (HCC) Josh Butterfield, 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 [address] [place] [address] Referral ID Status Reason Start Date Expiration Date V isits Requested Visits Authorized [id number] Pending Review 1 1 Specialty Diagnoses / Procedures Referred By Lonnieac t Referred To Contact MR IMAGING Diagnoses Cognitive impairment, mild, so stated Procedures MRI BRAIN WO/W IVCON MRI BRAIN BRAIN STEM W/O W/CONTRAST MATERIAL Nga Ferrer, 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 [address] [place] [address] [place] [address] Referral ID Status Reason Start Date Expiration Date Visits Requested Visits Authorized [id number] Authorized Auto-Generat ed Referral 06/09/2024 07/24/2024 1 1 Specialty Diagnoses / Procedures Referred By Lonnieac t Referred To Contact Neurology Diagnoses Falls Cognitive changes Procedures CONSULT TO NEUROLOGY OFFICE/OUTPATIENT [facility] 60 MINUTES Nga Ferrer, 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 [address] [place] [address] Referral ID Status Reason Start Date Expiration Date Visits Requested Visits Authorized [id number] Authorized PCP Requested Referral 06/09/2024 06/09/2025 1 1 Specialty Diagnoses / Procedures Referred By Contac t Referred To Contact CT IMAGING Diagnoses Status post reverse total replacement of right shoulder Right shoulder pain, unspecified chronicity Procedures CT SHOULDER WO IVCON RIGHT CT UPPER EXTREMITY W/O CONTRAST MATERIAL Perla Kennedy PA-C [address] [place] [address] [place] [address] Referral ID Status Reason Start Date Expiration Date Visits Requested Visits Authorized [id number] Authorized Auto-Generat ed Referral 02/18/2024 04/03/2024 1 1 Specialty Diagnoses / Procedures Referred By Contac t Referred To Contact General Surgery Diagnoses Screening for colon cancer Procedures CONSULT TO GENERAL SURGERY OFFICE/OUTPATIENT [facility] MDM 60 MINUTES Nga Ferrer, 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 [address] [place] [address] Referral ID Status Reason Start Date Expiration Date Visits Requested Visits Authorized [id number] Authorized PCP Requested Referral 01/12/2024 01/10/2025 1 1 Specialty Diagnoses / Procedures Referred By Contac t Referred To Contact CT IMAGING Diagnoses Lung nodules Procedures CT CHEST WO IVCON DIAGNOSTIC COMPUTED TOMOGRAPHY THORAX W/O CNTRSKiley Travis, 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 [address] [place] [address] [place] [address] Referral ID Status Reason Start Date Expiration Date Visits Requested Visits Authorized [id number] Pending Review Auto-Generat ed Referral 11/09/2023 12/08/2024 1 1 Specialty Diagnoses / Procedures Referred By Contac t Referred To Contact [facility] Diagnoses Status post reverse total replacement of right shoulder Procedures CONSULT TO PHYSICAL THERAPY PHYSICAL THERAPY EVALUATION HIGH COMPLEX 45 MINS Perla Kennedy PA-C [address] [place] [address] [facility] [place] [address] [place] [address] Referral ID Status Reason Start Date Expiration Date Visits Requested Visits Authorized [id number] Pending Review Auto-Generat ed Referral 06/17/2023 06/16/2024 1 1 Specialty Diagnoses / Procedures Referred By Contac t Referred To Contact [facility] Diagnoses Narrowing of lumbar intervertebral disc space Procedures [facility] OFF[facility]/OUTPATIENT [facility] MDM 60-74 MINUTES Nga Ferrer, 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 [address] [place] [address] Referral ID Status Reason Start Date Expiration Date Visits Requested Visits Authorized [id number] Authorized PCP Requested Referral 05/13/2023 05/12/2024 1 1 Specialty Diagnoses / Procedures Referred By Contac t Referred To Contact [facility] Diagnoses Balance problem Procedures CONSULT TO PHYSICAL THERAPY PHYSICAL THERAPY EVALUATION HIGH COMPLEX 45 MINS Nga Ferrer, CARLENE.WARD SERVICE SUPERVISOR [address] [place] [address] [facility] [place] [address] Referral ID Status Reason Start Date Expiration Date Visits Requested Visits Authorized [id number] Authorized Auto-Generat ed Referral 06/10/2022 09/12/2022 1 1 Chief Complaint and Reason for Visit Chief Complaint sob Chief Complaint Admit Date chest pain April 28, 2025 8: 53pm Additional Source Comments INFORMATION SOURCE (unrecogn ized section and content) DATE CREATED AUTHOR 03/09/2018 [facility] DATE CREATED AUTHOR AUTHOR'S ORGANIZ ATION 08/14/2023 [facility] DATE CREATED AUTHOR AUTHOR'S ORGANIZ ATION 04/07/2024 [facility] DATE CREATED AUTHOR AUTHOR'S ORGANIZ ATION 05/19/2024 [facility] ([place]) DATE CREATED AUTHOR AUTHOR'S ORGANIZ ATION 06/29/2024 [facility] DATE CREATED AUTHOR AUTHOR'S ORGANIZ ATION 09/21/2024 [facility] DATE CREATED AUTHOR AUTHOR'S ORGANIZ ATION 04/02/2025 [facility] DATE CREATED AUTHOR AUTHOR'S ORGANIZ ATION 05/05/2025 [facility] Source Comments (unrecognize d section and content) In the event this informatio n is protected by the Federal Confidentiality of Alcohol and Drug Abuse Patient Records regulations: The Federal rules restrict any use of the information to criminally investigate or prosecute any alcohol or drug abuse patient.[facility] Center[facility] the event this information is protected by the Federal Confidentiality of Alcohol and Drug Abuse Patient Records regulations: The Federal rules restrict any use of the information to criminally investigate or prosecute any alcohol or drug abuse patient.[facility] CenterIn the event this information is protected by the Federal Confidentiality of Alcohol and Drug Abuse Patient Records regulations: The Federal rules restrict any use of the information to criminally investigate or prosecute any alcohol or drug abuse patient.[facility] CenterIn the event this information is protected by the Federal Confidentiality of Alcohol and Drug Abuse Patient Records regulations: The Federal rules restrict any use of the information to criminally investigate or prosecute any alcohol or drug abuse patient.[facility] CenterIn the event this information is protected by the Federal Confidentiality of Alcohol and Drug Abuse Patient Records regulations: The Federal rules restrict any use of the information to criminally investigate or prosecute any alcohol or drug abuse patient.[facility] CenterIn the event this information is protected by the Federal Confidentiality of Alcohol and Drug Abuse Patient Records regulations: The Federal rules restrict any use of the information to criminally investigate or prosecute any alcohol or drug abuse patient.[facility] CenterIn the event this information is protected by the Federal Confidentiality of Alcohol and Drug Abuse Patient Records regulations: The Federal rules restrict any use of the information to criminally investigate or prosecute any alcohol or drug abuse patient.[facility] CenterIn the event this information is protected by the Federal Confidentiality of Alcohol and Drug Abuse Patient Records regulations: The Federal rules restrict any use of the information to criminally investigate or prosecute any alcohol or drug abuse patient.[facility] CenterIn the event this information is protected by the Federal Confidentiality of Alcohol and Drug Abuse Patient Records regulations: The Federal rules restrict any use of the information to criminally investigate or prosecute any alcohol or drug abuse patient.[facility] CenterIn the event this information is protected by the Federal Confidentiality of Alcohol and Drug Abuse Patient Records regulations: The Federal rules restrict any use of the information to criminally investigate or prosecute any alcohol or drug abuse patient.[facility] CenterIn the event this information is protected by the Federal Confidentiality of Alcohol and Drug Abuse Patient Records regulations: The Federal rules restrict any use of the information to criminally investigate or prosecute any alcohol or drug abuse patient.[facility] CenterIn the event this information is protected by the Federal Confidentiality of Alcohol and Drug Abuse Patient Records regulations: The Federal rules restrict any use of the information to criminally investigate or prosecute any alcohol or drug abuse patient.[facility] CenterIn the event this information is protected by the Federal Confidentiality of Alcohol and Drug Abuse Patient Records regulations: The Federal rules restrict any use of the information to criminally investigate or prosecute any alcohol or drug abuse patient.[facility] CenterIn the event this information is protected by the Federal Confidentiality of Alcohol and Drug Abuse Patient Records regulations: The Federal rules restrict any use of the information to criminally investigate or prosecute any alcohol or drug abuse patient.[facility] CenterIn the event this information is protected by the Federal Confidentiality of Alcohol and Drug Abuse Patient Records regulations: The Federal rules restrict any use of the information to criminally investigate or prosecute any alcohol or drug abuse patient.[facility] CenterIn the event this information is protected by the Federal Confidentiality of Alcohol and Drug Abuse Patient Records regulations: The Federal rules restrict any use of the information to criminally investigate or prosecute any alcohol or drug abuse patient.[facility] CenterIn the event this information is protected by the Federal Confidentiality of Alcohol and Drug Abuse Patient Records regulations: The Federal rules restrict any use of the information to criminally investigate or prosecute any alcohol or drug abuse patient.[facility] CenterIn the event this information is protected by the Federal Confidentiality of Alcohol and Drug Abuse Patient Records regulations: The Federal rules restrict any use of the information to criminally investigate or prosecute any alcohol or drug abuse patient.[facility] CenterIn the event this information is protected by the Federal Confidentiality of Alcohol and Drug Abuse Patient Records regulations: The Federal rules restrict any use of the information to criminally investigate or prosecute any alcohol or drug abuse patient.[facility] CenterIn the event this information is protected by the Federal Confidentiality of Alcohol and Drug Abuse Patient Records regulations: The Federal rules restrict any use of the information to criminally investigate or prosecute any alcohol or drug abuse patient.[facility] CenterIn the event this information is protected by the Federal Confidentiality of Alcohol and Drug Abuse Patient Records regulations: The Federal rules restrict any use of the information to criminally investigate or prosecute any alcohol or drug abuse patient.[facility] CenterIn the event this information is protected by the Federal Confidentiality of Alcohol and Drug Abuse Patient Records regulations: The Federal rules restrict any use of the information to criminally investigate or prosecute any alcohol or drug abuse patient.[facility] CenterIn the event this information is protected by the Federal Confidentiality of Alcohol and Drug Abuse Patient Records regulations: The Federal rules restrict any use of the information to criminally investigate or prosecute any alcohol or drug abuse patient.[facility] CenterIn the event this information is protected by the Federal Confidentiality of Alcohol and Drug Abuse Patient Records regulations: The Federal rules restrict any use of the information to criminally investigate or prosecute any alcohol or drug abuse patient.[facility] CenterIn the event this information is protected by the Federal Confidentiality of Alcohol and Drug Abuse Patient Records regulations: The Federal rules restrict any use of the information to criminally investigate or prosecute any alcohol or drug abuse patient.[facility] CenterIn the event this information is protected by the Federal Confidentiality of Alcohol and Drug Abuse Patient Records regulations: The Federal rules restrict any use of the information to criminally investigate or prosecute any alcohol or drug abuse patient.[facility] CenterIn the event this information is protected by the Federal Confidentiality of Alcohol and Drug Abuse Patient Records regulations: The Federal rules restrict any use of the information to criminally investigate or prosecute any alcohol or drug abuse patient.[facility] CenterIn the event this information is protected by the Federal Confidentiality of Alcohol and Drug Abuse Patient Records regulations: The Federal rules restrict any use of the information to criminally investigate or prosecute any alcohol or drug abuse patient.[facility] CenterIn the event this information is protected by the Federal Confidentiality of Alcohol and Drug Abuse Patient Records regulations: The Federal rules restrict any use of the information to criminally investigate or prosecute any alcohol or drug abuse patient.[facility] CenterIn the event this information is protected by the Federal Confidentiality of Alcohol and Drug Abuse Patient Records regulations: The Federal rules restrict any use of the information to criminally investigate or prosecute any alcohol or drug abuse patient.[facility] CenterIn the event this information is protected by the Federal Confidentiality of Alcohol and Drug Abuse Patient Records regulations: The Federal rules restrict any use of the information to criminally investigate or prosecute any alcohol or drug abuse patient.[facility] CenterIn the event this information is protected by the Federal Confidentiality of Alcohol and Drug Abuse Patient Records regulations: The Federal rules restrict any use of the information to criminally investigate or prosecute any alcohol or drug abuse patient.[facility] CenterIn the event this information is protected by the Federal Confidentiality of Alcohol and Drug Abuse Patient Records regulations: The Federal rules restrict any use of the information to criminally investigate or prosecute any alcohol or drug abuse patient.[facility] CenterIn the event this information is protected by the Federal Confidentiality of Alcohol and Drug Abuse Patient Records regulations: The Federal rules restrict any use of the information to criminally investigate or prosecute any alcohol or drug abuse patient.[facility] CenterIn the event this information is protected by the Federal Confidentiality of Alcohol and Drug Abuse Patient Records regulations: The Federal rules restrict any use of the information to criminally investigate or prosecute any alcohol or drug abuse patient.[facility] CenterIn the event this information is protected by the Federal Confidentiality of Alcohol and Drug Abuse Patient Records regulations: The Federal rules restrict any use of the information to criminally investigate or prosecute any alcohol or drug abuse patient.[facility] CenterIn the event this information is protected by the Federal Confidentiality of Alcohol and Drug Abuse Patient Records regulations: The Federal rules restrict any use of the information to criminally investigate or prosecute any alcohol or drug abuse patient.[facility] CenterIn the event this information is protected by the Federal Confidentiality of Alcohol and Drug Abuse Patient Records regulations: The Federal rules restrict any use of the information to criminally investigate or prosecute any alcohol or drug abuse patient.[facility] CenterIn the event this information is protected by the Federal Confidentiality of Alcohol and Drug Abuse Patient Records regulations: The Federal rules restrict any use of the information to criminally investigate or prosecute any alcohol or drug abuse patient.[facility] CenterIn the event this information is protected by the Federal Confidentiality of Alcohol and Drug Abuse Patient Records regulations: The Federal rules restrict any use of the information to criminally investigate or prosecute any alcohol or drug abuse patient.[facility] CenterIn the event this information is protected by the Federal Confidentiality of Alcohol and Drug Abuse Patient Records regulations: The Federal rules restrict any use of the information to criminally investigate or prosecute any alcohol or drug abuse patient.[facility] CenterIn the event this information is protected by the Federal Confidentiality of Alcohol and Drug Abuse Patient Records regulations: The Federal rules restrict any use of the information to criminally investigate or prosecute any alcohol or drug abuse patient.[facility] CenterIn the event this information is protected by the Federal Confidentiality of Alcohol and Drug Abuse Patient Records regulations: The Federal rules restrict any use of the information to criminally investigate or prosecute any alcohol or drug abuse patient.[facility] CenterIn the event this information is protected by the Federal Confidentiality of Alcohol and Drug Abuse Patient Records regulations: The Federal rules restrict any use of the information to criminally investigate or prosecute any alcohol or drug abuse patient.[facility] CenterIn the event this information is protected by the Federal Confidentiality of Alcohol and Drug Abuse Patient Records regulations: The Federal rules restrict any use of the information to criminally investigate or prosecute any alcohol or drug abuse patient.[facility] CenterIn the event this information is protected by the Federal Confidentiality of Alcohol and Drug Abuse Patient Records regulations: The Federal rules restrict any use of the information to criminally investigate or prosecute any alcohol or drug abuse patient.[facility] CenterIn the event this information is protected by the Federal Confidentiality of Alcohol and Drug Abuse Patient Records regulations: The Federal rules restrict any use of the information to criminally investigate or prosecute any alcohol or drug abuse patient.[facility] CenterIn the event this information is protected by the Federal Confidentiality of Alcohol and Drug Abuse Patient Records regulations: The Federal rules restrict any use of the information to criminally investigate or prosecute any alcohol or drug abuse patient.[facility] CenterIn the event this information is protected by the Federal Confidentiality of Alcohol and Drug Abuse Patient Records regulations: The Federal rules restrict any use of the information to criminally investigate or prosecute any alcohol or drug abuse patient.[facility] CenterIn the event this information is protected by the Federal Confidentiality of Alcohol and Drug Abuse Patient Records regulations: The Federal rules restrict any use of the information to criminally investigate or prosecute any alcohol or drug abuse patient.[facility] CenterIn the event this information is protected by the Federal Confidentiality of Alcohol and Drug Abuse Patient Records regulations: The Federal rules restrict any use of the information to criminally investigate or prosecute any alcohol or drug abuse patient.[facility] CenterIn the event this information is protected by the Federal Confidentiality of Alcohol and Drug Abuse Patient Records regulations: The Federal rules restrict any use of the information to criminally investigate or prosecute any alcohol or drug abuse patient.[facility] CenterIn the event this information is protected by the Federal Confidentiality of Alcohol and Drug Abuse Patient Records regulations: The Federal rules restrict any use of the information to criminally investigate or prosecute any alcohol or drug abuse patient.[facility] CenterIn the event this information is protected by the Federal Confidentiality of Alcohol and Drug Abuse Patient Records regulations: The Federal rules restrict any use of the information to criminally investigate or prosecute any alcohol or drug abuse patient.[facility] CenterIn the event this information is protected by the Federal Confidentiality of Alcohol and Drug Abuse Patient Records regulations: The Federal rules restrict any use of the information to criminally investigate or prosecute any alcohol or drug abuse patient.[facility] CenterIn the event this information is protected by the Federal Confidentiality of Alcohol and Drug Abuse Patient Records regulations: The Federal rules restrict any use of the information to criminally investigate or prosecute any alcohol or drug abuse patient.[facility] CenterIn the event this information is protected by the Federal Confidentiality of Alcohol and Drug Abuse Patient Records regulations: The Federal rules restrict any use of the information to criminally investigate or prosecute any alcohol or drug abuse patient.[facility] CenterIn the event this information is protected by the Federal Confidentiality of Alcohol and Drug Abuse Patient Records regulations: The Federal rules restrict any use of the information to criminally investigate or prosecute any alcohol or drug abuse patient.[facility] CenterIn the event this information is protected by the Federal Confidentiality of Alcohol and Drug Abuse Patient Records regulations: The Federal rules restrict any use of the information to criminally investigate or prosecute any alcohol or drug abuse patient.[facility] CenterIn the event this information is protected by the Federal Confidentiality of Alcohol and Drug Abuse Patient Records regulations: The Federal rules restrict any use of the information to criminally investigate or prosecute any alcohol or drug abuse patient.[facility] CenterIn the event this information is protected by the Federal Confidentiality of Alcohol and Drug Abuse Patient Records regulations: The Federal rules restrict any use of the information to criminally investigate or prosecute any alcohol or drug abuse patient.[facility] CenterIn the event this information is protected by the Federal Confidentiality of Alcohol and Drug Abuse Patient Records regulations: The Federal rules restrict any use of the information to criminally investigate or prosecute any alcohol or drug abuse patient.[facility] CenterIn the event this information is protected by the Federal Confidentiality of Alcohol and Drug Abuse Patient Records regulations: The Federal rules restrict any use of the information to criminally investigate or prosecute any alcohol or drug abuse patient.[facility] CenterIn the event this information is protected by the Federal Confidentiality of Alcohol and Drug Abuse Patient Records regulations: The Federal rules restrict any use of the information to criminally investigate or prosecute any alcohol or drug abuse patient.[facility] CenterIn the event this information is protected by the Federal Confidentiality of Alcohol and Drug Abuse Patient Records regulations: The Federal rules restrict any use of the information to criminally investigate or prosecute any alcohol or drug abuse patient.[facility] CenterIn the event this information is protected by the Federal Confidentiality of Alcohol and Drug Abuse Patient Records regulations: The Federal rules restrict any use of the information to criminally investigate or prosecute any alcohol or drug abuse patient.[facility] CenterIn the event this information is protected by the Federal Confidentiality of Alcohol and Drug Abuse Patient Records regulations: The Federal rules restrict any use of the information to criminally investigate or prosecute any alcohol or drug abuse patient.[facility] CenterIn the event this information is protected by the Federal Confidentiality of Alcohol and Drug Abuse Patient Records regulations: The Federal rules restrict any use of the information to criminally investigate or prosecute any alcohol or drug abuse patient.[facility] CenterIn the event this information is protected by the Federal Confidentiality of Alcohol and Drug Abuse Patient Records regulations: The Federal rules restrict any use of the information to criminally investigate or prosecute any alcohol or drug abuse patient.[facility] CenterIn the event this information is protected by the Federal Confidentiality of Alcohol and Drug Abuse Patient Records regulations: The Federal rules restrict any use of the information to criminally investigate or prosecute any alcohol or drug abuse patient.[facility] CenterIn the event this information is protected by the Federal Confidentiality of Alcohol and Drug Abuse Patient Records regulations: The Federal rules restrict any use of the information to criminally investigate or prosecute any alcohol or drug abuse patient.[facility] CenterIn the event this information is protected by the Federal Confidentiality of Alcohol and Drug Abuse Patient Records regulations: The Federal rules restrict any use of the information to criminally investigate or prosecute any alcohol or drug abuse patient.[facility] CenterIn the event this information is protected by the Federal Confidentiality of Alcohol and Drug Abuse Patient Records regulations: The Federal rules restrict any use of the information to criminally investigate or prosecute any alcohol or drug abuse patient.[facility] CenterIn the event this information is protected by the Federal Confidentiality of Alcohol and Drug Abuse Patient Records regulations: The Federal rules restrict any use of the information to criminally investigate or prosecute any alcohol or drug abuse patient.[facility] CenterIn the event this information is protected by the Federal Confidentiality of Alcohol and Drug Abuse Patient Records regulations: The Federal rules restrict any use of the information to criminally investigate or prosecute any alcohol or drug abuse patient.[facility] CenterIn the event this information is protected by the Federal Confidentiality of Alcohol and Drug Abuse Patient Records regulations: The Federal rules restrict any use of the information to criminally investigate or prosecute any alcohol or drug abuse patient.[facility] CenterIn the event this information is protected by the Federal Confidentiality of Alcohol and Drug Abuse Patient Records regulations: The Federal rules restrict any use of the information to criminally investigate or prosecute any alcohol or drug abuse patient.[facility] CenterIn the event this information is protected by the Federal Confidentiality of Alcohol and Drug Abuse Patient Records regulations: The Federal rules restrict any use of the information to criminally investigate or prosecute any alcohol or drug abuse patient.[facility] CenterIn the event this information is protected by the Federal Confidentiality of Alcohol and Drug Abuse Patient Records regulations: The Federal rules restrict any use of the information to criminally investigate or prosecute any alcohol or drug abuse patient.[facility] CenterIn the event this information is protected by the Federal Confidentiality of Alcohol and Drug Abuse Patient Records regulations: The Federal rules restrict any use of the information to criminally investigate or prosecute any alcohol or drug abuse patient.[facility] CenterIn the event this information is protected by the Federal Confidentiality of Alcohol and Drug Abuse Patient Records regulations: The Federal rules restrict any use of the information to criminally investigate or prosecute any alcohol or drug abuse patient.[facility] CenterIn the event this information is protected by the Federal Confidentiality of Alcohol and Drug Abuse Patient Records regulations: The Federal rules restrict any use of the information to criminally investigate or prosecute any alcohol or drug abuse patient.[facility] CenterIn the event this information is protected by the Federal Confidentiality of Alcohol and Drug Abuse Patient Records regulations: The Federal rules restrict any use of the information to criminally investigate or prosecute any alcohol or drug abuse patient.[facility] CenterIn the event this information is protected by the Federal Confidentiality of Alcohol and Drug Abuse Patient Records regulations: The Federal rules restrict any use of the information to criminally investigate or prosecute any alcohol or drug abuse patient.[facility] CenterIn the event this information is protected by the Federal Confidentiality of Alcohol and Drug Abuse Patient Records regulations: The Federal rules restrict any use of the information to criminally investigate or prosecute any alcohol or drug abuse patient.[facility] CenterIn the event this information is protected by the Federal Confidentiality of Alcohol and Drug Abuse Patient Records regulations: The Federal rules restrict any use of the information to criminally investigate or prosecute any alcohol or drug abuse patient.[facility] CenterIn the event this information is protected by the Federal Confidentiality of Alcohol and Drug Abuse Patient Records regulations: The Federal rules restrict any use of the information to criminally investigate or prosecute any alcohol or drug abuse patient.[facility] CenterIn the event this information is protected by the Federal Confidentiality of Alcohol and Drug Abuse Patient Records regulations: The Federal rules restrict any use of the information to criminally investigate or prosecute any alcohol or drug abuse patient.[facility] CenterIn the event this information is protected by the Federal Confidentiality of Alcohol and Drug Abuse Patient Records regulations: The Federal rules restrict any use of the information to criminally investigate or prosecute any alcohol or drug abuse patient.[facility] CenterIn the event this information is protected by the Federal Confidentiality of Alcohol and Drug Abuse Patient Records regulations: The Federal rules restrict any use of the information to criminally investigate or prosecute any alcohol or drug abuse patient.[facility] CenterIn the event this information is protected by the Federal Confidentiality of Alcohol and Drug Abuse Patient Records regulations: The Federal rules restrict any use of the information to criminally investigate or prosecute any alcohol or drug abuse patient.[facility] CenterIn the event this information is protected by the Federal Confidentiality of Alcohol and Drug Abuse Patient Records regulations: The Federal rules restrict any use of the information to criminally investigate or prosecute any alcohol or drug abuse patient.[facility] CenterIn the event this information is protected by the Federal Confidentiality of Alcohol and Drug Abuse Patient Records regulations: The Federal rules restrict any use of the information to criminally investigate or prosecute any alcohol or drug abuse patient.[facility] CenterIn the event this information is protected by the Federal Confidentiality of Alcohol and Drug Abuse Patient Records regulations: The Federal rules restrict any use of the information to criminally investigate or prosecute any alcohol or drug abuse patient.[facility] CenterIn the event this information is protected by the Federal Confidentiality of Alcohol and Drug Abuse Patient Records regulations: The Federal rules restrict any use of the information to criminally investigate or prosecute any alcohol or drug abuse patient.[facility] CenterIn the event this information is protected by the Federal Confidentiality of Alcohol and Drug Abuse Patient Records regulations: The Federal rules restrict any use of the information to criminally investigate or prosecute any alcohol or drug abuse patient.[facility] CenterIn the event this information is protected by the Federal Confidentiality of Alcohol and Drug Abuse Patient Records regulations: The Federal rules restrict any use of the information to criminally investigate or prosecute any alcohol or drug abuse patient.[facility] CenterIn the event this information is protected by the Federal Confidentiality of Alcohol and Drug Abuse Patient Records regulations: The Federal rules restrict any use of the information to criminally investigate or prosecute any alcohol or drug abuse patient.[facility] CenterIn the event this information is protected by the Federal Confidentiality of Alcohol and Drug Abuse Patient Records regulations: The Federal rules restrict any use of the information to criminally investigate or prosecute any alcohol or drug abuse patient.[facility] CenterIn the event this information is protected by the Federal Confidentiality of Alcohol and Drug Abuse Patient Records regulations: The Federal rules restrict any use of the information to criminally investigate or prosecute any alcohol or drug abuse patient.[facility] CenterIn the event this information is protected by the Federal Confidentiality of Alcohol and Drug Abuse Patient Records regulations: The Federal rules restrict any use of the information to criminally investigate or prosecute any alcohol or drug abuse patient.[facility] CenterIn the event this information is protected by the Federal Confidentiality of Alcohol and Drug Abuse Patient Records regulations: The Federal rules restrict any use of the information to criminally investigate or prosecute any alcohol or drug abuse patient.[facility] CenterIn the event this information is protected by the Federal Confidentiality of Alcohol and Drug Abuse Patient Records regulations: The Federal rules restrict any use of the information to criminally investigate or prosecute any alcohol or drug abuse patient.[facility] CenterIn the event this information is protected by the Federal Confidentiality of Alcohol and Drug Abuse Patient Records regulations: The Federal rules restrict any use of the information to criminally investigate or prosecute any alcohol or drug abuse patient.[facility] CenterIn the event this information is protected by the Federal Confidentiality of Alcohol and Drug Abuse Patient Records regulations: The Federal rules restrict any use of the information to criminally investigate or prosecute any alcohol or drug abuse patient.[facility] CenterIn the event this information is protected by the Federal Confidentiality of Alcohol and Drug Abuse Patient Records regulations: The Federal rules restrict any use of the information to criminally investigate or prosecute any alcohol or drug abuse patient.[facility] CenterIn the event this information is protected by the Federal Confidentiality of Alcohol and Drug Abuse Patient Records regulations: The Federal rules restrict any use of the information to criminally investigate or prosecute any alcohol or drug abuse patient.[facility] CenterIn the event this information is protected by the Federal Confidentiality of Alcohol and Drug Abuse Patient Records regulations: The Federal rules restrict any use of the information to criminally investigate or prosecute any alcohol or drug abuse patient.[facility] CenterIn the event this information is protected by the Federal Confidentiality of Alcohol and Drug Abuse Patient Records regulations: The Federal rules restrict any use of the information to criminally investigate or prosecute any alcohol or drug abuse patient.[facility] CenterIn the event this information is protected by the Federal Confidentiality of Alcohol and Drug Abuse Patient Records regulations: The Federal rules restrict any use of the information to criminally investigate or prosecute any alcohol or drug abuse patient.[facility] CenterIn the event this information is protected by the Federal Confidentiality of Alcohol and Drug Abuse Patient Records regulations: The Federal rules restrict any use of the information to criminally investigate or prosecute any alcohol or drug abuse patient.[facility] CenterIn the event this information is protected by the Federal Confidentiality of Alcohol and Drug Abuse Patient Records regulations: The Federal rules restrict any use of the information to criminally investigate or prosecute any alcohol or drug abuse patient.[facility] CenterIn the event this information is protected by the Federal Confidentiality of Alcohol and Drug Abuse Patient Records regulations: The Federal rules restrict any use of the information to criminally investigate or prosecute any alcohol or drug abuse patient.[facility] CenterIn the event this information is protected by the Federal Confidentiality of Alcohol and Drug Abuse Patient Records regulations: The Federal rules restrict any use of the information to criminally investigate or prosecute any alcohol or drug abuse patient.[facility] CenterIn the event this information is protected by the Federal Confidentiality of Alcohol and Drug Abuse Patient Records regulations: The Federal rules restrict any use of the information to criminally investigate or prosecute any alcohol or drug abuse patient.[facility] CenterIn the event this information is protected by the Federal Confidentiality of Alcohol and Drug Abuse Patient Records regulations: The Federal rules restrict any use of the information to criminally investigate or prosecute any alcohol or drug abuse patient.[facility] Medical CenterIn the event this information is protected by the Federal Confidentiality of Alcohol and Drug Abuse Patient Records regulations: The Federal rules restrict any use of the information to criminally investigate or prosecute any alcohol or drug abuse patient.[facility] Center[facility] the event this information is protected by the Federal Confidentiality of Alcohol and Drug Abuse Patient Records regulations: The Federal rules restrict any use of the information to criminally investigate or prosecute any alcohol or drug abuse patient.[facility] CenterIn the event this information is protected by the Federal Confidentiality of Alcohol and Drug Abuse Patient Records regulations: The Federal rules restrict any use of the information to criminally investigate or prosecute any alcohol or drug abuse patient.[facility] CenterIn the event this information is protected by the Federal Confidentiality of Alcohol and Drug Abuse Patient Records regulations: The Federal rules restrict any use of the information to criminally investigate or prosecute any alcohol or drug abuse patient.[facility] CenterIn the event this information is protected by the Federal Confidentiality of Alcohol and Drug Abuse Patient Records regulations: The Federal rules restrict any use of the information to criminally investigate or prosecute any alcohol or drug abuse patient.[facility] CenterIn the event this information is protected by the Federal Confidentiality of Alcohol and Drug Abuse Patient Records regulations: The Federal rules restrict any use of the information to criminally investigate or prosecute any alcohol or drug abuse patient.[facility] CenterIn the event this information is protected by the Federal Confidentiality of Alcohol and Drug Abuse Patient Records regulations: The Federal rules restrict any use of the information to criminally investigate or prosecute any alcohol or drug abuse patient.[facility] CenterIn the event this information is protected by the Federal Confidentiality of Alcohol and Drug Abuse Patient Records regulations: The Federal rules restrict any use of the information to criminally investigate or prosecute any alcohol or drug abuse patient.[facility] CenterIn the event this information is protected by the Federal Confidentiality of Alcohol and Drug Abuse Patient Records regulations: The Federal rules restrict any use of the information to criminally investigate or prosecute any alcohol or drug abuse patient.[facility] CenterIn the event this information is protected by the Federal Confidentiality of Alcohol and Drug Abuse Patient Records regulations: The Federal rules restrict any use of the information to criminally investigate or prosecute any alcohol or drug abuse patient.[facility] CenterIn the event this information is protected by the Federal Confidentiality of Alcohol and Drug Abuse Patient Records regulations: The Federal rules restrict any use of the information to criminally investigate or prosecute any alcohol or drug abuse patient.[facility] Care Teams (unrecognized sec tion and content) Remote Control Mirror Installer Relationship Specialty Start Date End Date Teresa Aguilar MD [address] [place], [place] [id number] PCP - General 12/22/06 Remote Control Mirror Installer Relationship Specialty Start Date End Date Teresa Aguilar MD [address] [place], [place] [id number] PCP - General 12/22/06 Remote Control Mirror Installer Relationship Specialty Start Date End Date Teresa Aguilar MD [address] [facility] [place] [address] PCP - General 12/22/06 Remote Control Mirror Installer Relationship Specialty Start Date End Date Teresa Aguilar MD [address] [facility] [place] [address] PCP - General 12/22/06 Remote Control Mirror Installer Relationship Specialty Start Date End Date Teresa Aguilar MD [address] [facility] [place] [address] PCP - General 12/22/06 Remote Control Mirror Installer Relationship Specialty Start Date End Date Teresa Aguilar MD [address] [facility] [place] [address] PCP - General 12/22/06 Remote Control Mirror Installer Relationship Specialty Start Date End Date Teresa Aguilar MD [address] [facility] [place] [address] PCP - General 12/22/06 Remote Control Mirror Installer Relationship Specialty Start Date End Date Teresa Aguilar MD [address] [facility] [place] [address] PCP - General 12/22/06 Remote Control Mirror Installer Relationship Specialty Start Date End Date Teresa Aguilar MD [address] [facility] [place] [place] [address] PCP - General 12/22/06 Team Status: Active Member Role Status Dates Dr. Teresa Aguilar MD Family Provider Active Dr. Teresa Aguilar MD Primary Care Provider Active Team Status: Inactive Member Role Status Dates Dr. Teresa Aguilar MD Primary Care Provider Active Dr. Sy Stewart , Emergency Provider Active Remote Control Mirror Installer Relationship Specialty Start Date End Date Teresa Aguilar MD [address] [facility] [place] [address] PCP - General 12/22/06 Remote Control Mirror Installer Relationship Specialty Start Date End Date Teresa Aguilar MD [address] [facility] [place] [address] PCP - General 12/22/06 Remote Control Mirror Installer Relationship Specialty Start Date End Date Teresa Aguilar MD [address] [facility] [place] [address] PCP - General 12/22/06 Remote Control Mirror Installer Relationship Specialty Start Date End Date Teresa Aguilar MD [address] [place] [address] PCP - General 12/22/06 Remote Control Mirror Installer Relationship Specialty Start Date End Date Teresa Aguilar MD [address] [facility] [place] [address] PCP - General 12/22/06 Remote Control Mirror Installer Relationship Specialty Start Date End Date Teresa Aguilar MD [address] [place] [address] PCP - General 12/22/06 Remote Control Mirror Installer Relationship Specialty Start Date End Date Teresa Aguilar MD [address] [facility] [place] [address] PCP - General 12/22/06 Remote Control Mirror Installer Relationship Specialty Start Date End Date Teresa Aguilar MD [address] [facility] [place] [address] PCP - General 12/22/06 Remote Control Mirror Installer Relationship Specialty Start Date End Date Teresa Aguilar MD [address] [facility] [place] [address] PCP - General 12/22/06 Remote Control Mirror Installer Relationship Specialty Start Date End Date Teresa Aguilar MD [address] [facility] [place] [address] PCP - General 12/22/06 Remote Control Mirror Installer Relationship Specialty Start Date End Date Teresa Aguilar MD [address] [facility] [place] [address] PCP - General 12/22/06 Roro Loo MD [address] [place] [address] Pulmonary and Critical Care Medicine 06/08/23 Remote Control Mirror Installer Relationship Specialty Start Date End Date Teresa Aguilar MD [address] [facility] [place] [address] PCP - General 12/22/06 Roro Loo MD [address] [facility] [place] [address] Pulmonary and Critical Care Medicine 06/08/23 Remote Control Mirror Installer Relationship Specialty Start Date End Date eTresa Aguilar MD [address] [facility] [place] [address] PCP - General 12/22/06 Roro Loo MD [address] [place] [address] Pulmonary and Critical Care Medicine 06/08/23 Remote Control Mirror Installer Relationship Specialty Start Date End Date Teresa Aguilar MD [address] [facility] [place] [address] PCP - General 12/22/06 Roro Loo MD [address] [place] [address] Pulmonary and Critical Care Medicine 06/08/23 Remote Control Mirror Installer Relationship Specialty Start Date End Date Teresa Aguilar MD [address] [facility] [place] [address] PCP - General 12/22/06 Roro Loo MD [address] [place] [address] Pulmonary and Critical Care Medicine 06/08/23 Remote Control Mirror Installer Relationship Specialty Start Date End Date Teresa Aguilar MD [address] [place] [address] PCP - General 12/22/06 Roro Loo MD [address] [place] [address] Pulmonary and Critical Care Medicine 06/08/23 Remote Control Mirror Installer Relationship Specialty Start Date End Date Teresa Aguilar MD [address] [place] [address] PCP - General 12/22/06 Roro Loo MD [address] [place] [address] Pulmonary and Critical Care Medicine 06/08/23 Remote Control Mirror Installer Relationship Specialty Start Date End Date Teresa Aguilar MD [address] [place] [address] PCP - General 12/22/06 Roro Loo MD [address] [place] [address] Pulmonary and Critical Care Medicine 06/08/23 Remote Control Mirror Installer Relationship Specialty Start Date End Date Teresa Aguilar MD [address] [place] [address] PCP - General 12/22/06 Roro Loo MD [address] [place] [address] Pulmonary and Critical Care Medicine 06/08/23 Remote Control Mirror Installer Relationship Specialty Start Date End Date Teresa Aguilar MD [address] [place] [address] PCP - General 12/22/06 Roro Loo MD [address] [place] [address] Pulmonary and Critical Care Medicine 06/08/23 Remote Control Mirror Installer Relationship Specialty Start Date End Date Teresa Aguilar MD [address] [place] [address] PCP - General 12/22/06 Roro Loo MD [address] [place] [address] Pulmonary and Critical Care Medicine 06/08/23 Remote Control Mirror Installer Relationship Specialty Start Date End Date Teresa Aguilar MD [address] [place] [address] PCP - General 12/22/06 Roro Loo MD [address] [address] Pulmonary and Critical Care Medicine 06/08/23 Remote Control Mirror Installer Relationship Specialty Start Date End Date Teresa Aguilar MD [address] [place] [address] PCP - General 12/22/06 Roro Loo MD [address] [place] [address] Pulmonary and Critical Care Medicine 06/08/23 Stella Enrique, ASHLEE Specialty Sink Cutter Orthopedics 08/04/23 09/10/23 Remote Control Mirror Installer Relationship Specialty Start Date End Date Teresa Aguilar MD [address] [place] [address] PCP - General 12/22/06 Roro Loo MD [address] [place] [address] Pulmonary and Critical Care Medicine 06/08/23 Stella Enrique, ASHLEE Specialty Sink Cutter Orthopedics 08/04/23 09/10/23 Remote Control Mirror Installer Relationship Specialty Start Date End Date Teresa Aguilar MD [address] [place] [address] PCP - General 12/22/06 Roro Loo MD [address] [place] [address] Pulmonary and Critical Care Medicine 06/08/23 Stella Enrique, ASHLEE Specialty Sink Cutter Orthopedics 08/04/23 09/10/23 Remote Control Mirror Installer Relationship Specialty Start Date End Date Teresa Aguilar MD [address] [facility] [place] [address] PCP - General 12/22/06 Roro Loo MD [address] [place] [address] Pulmonary and Critical Care Medicine 06/08/23 Stella Enrique, ASHLEE Specialty Sink Cutter Orthopedics 08/04/23 09/10/23 Remote Control Mirror Installer Relationship Specialty Start Date End Date Teresa Aguilar MD [address] [facility] [place] [address] PCP - General 12/22/06 Roro Loo MD [address] [place] [address] Pulmonary and Critical Care Medicine 06/08/23 Remote Control Mirror Installer Relationship Specialty Start Date End Date Teresa Aguilar MD [address] [place] [address] PCP - General 12/22/06 Roro Loo MD [address] [place] [address] Pulmonary and Critical Care Medicine 06/08/23 Remote Control Mirror Installer Relationship Specialty Start Date End Date Teresa Aguilar MD [address] [place] [address] PCP - General 12/22/06 Roro Loo MD [address] [place] [address] Pulmonary and Critical Care Medicine 06/08/23 Remote Control Mirror Installer Relationship Specialty Start Date End Date Teresa Aguilar MD [address] [place] [address] PCP - General 12/22/06 Roro Loo MD [address] [place] [address] Pulmonary and Critical Care Medicine 06/08/23 Remote Control Mirror Installer Relationship Specialty Start Date End Date Teresa Aguilar MD [address] [place] [address] PCP - General 12/22/06 Roro Loo MD [address] [place] [address] Pulmonary and Critical Care Medicine 06/08/23 Remote Control Mirror Installer Relationship Specialty Start Date End Date Teresa Aguilar MD [address] [place] [address] PCP - General 12/22/06 Roro Loo MD [address] [place] [address] Pulmonary and Critical Care Medicine 06/08/23 Remote Control Mirror Installer Relationship Specialty Start Date End Date Teresa Aguilar MD [address] [place] [address] PCP - General 12/22/06 Roro Loo MD [address] [place] [address] Pulmonary and Critical Care Medicine 06/08/23 Remote Control Mirror Installer Relationship Specialty Start Date End Date Teresa Aguilar MD [address] [place] [address] PCP - General 12/22/06 Roro Loo MD [address] [place] [address] Pulmonary and Critical Care Medicine 06/08/23 Remote Control Mirror Installer Relationship Specialty Start Date End Date Teresa Aguilar MD [address] [place] [address] PCP - General 12/22/06 Roro Loo MD [address] [place] [address] Pulmonary and Critical Care Medicine 06/08/23 Remote Control Mirror Installer Relationship Specialty Start Date End Date Teresa Aguilar MD [address] [place] [address] PCP - General 12/22/06 Roro Loo MD [address] [place] [address] Pulmonary and Critical Care Medicine 06/08/23 Remote Control Mirror Installer Relationship Specialty Start Date End Date Teresa Aguilar MD [address] [place] [address] PCP - General 12/22/06 Roro Loo MD [address] [place] [address] Pulmonary and Critical Care Medicine 06/08/23 Remote Control Mirror Installer Relationship Specialty Start Date End Date Teresa Aguilar MD [address] [place] [address] PCP - General 12/22/06 Roro Loo MD [address] [place] [address] Pulmonary and Critical Care Medicine 06/08/23 Remote Control Mirror Installer Relationship Specialty Start Date End Date Teresa Aguilar MD [address] [facility] [place] [address] PCP - General 12/22/06 Roro Loo MD [address] [place] [address] Pulmonary and Critical Care Medicine 06/08/23 Remote Control Mirror Installer Relationship Specialty Start Date End Date Teresa Aguilar MD [address] [facility] [place] [address] PCP - General 12/22/06 Roro Loo MD [address] [place] [address] Pulmonary and Critical Care Medicine 06/08/23 Remote Control Mirror Installer Relationship Specialty Start Date End Date Teresa Aguilar MD [address] [facility] [place] [address] PCP - General 12/22/06 Roro Loo MD [address] [address] Pulmonary and Critical Care Medicine 06/08/23 Remote Control Mirror Installer Relationship Specialty Start Date End Date Teresa Aguilar MD [address] [place] [address] PCP - General 12/22/06 Roro Loo MD [address] [place] [address] Pulmonary and Critical Care Medicine 06/08/23 Remote Control Mirror Installer Relationship Specialty Start Date End Date Teresa Aguilar MD [address] [place] [address] PCP - General 12/22/06 Roro Loo MD [address] [place] [address] Pulmonary and Critical Care Medicine 06/08/23 Remote Control Mirror Installer Relationship Specialty Start Date End Date Teresa Aguilar MD [address] [place] [address] PCP - General 12/22/06 Roro Loo MD [address] [place] [address] Pulmonary and Critical Care Medicine 06/08/23 Remote Control Mirror Installer Relationship Specialty Start Date End Date Teresa Aguilar MD [address] [place] [address] PCP - General 12/22/06 Roro Loo MD [address] [place] [address] Pulmonary and Critical Care Medicine 06/08/23 Stella Enrique, ASHLEE Specialty Sink Cutter Orthopedics 08/04/23 09/10/23 Remote Control Mirror Installer Relationship Specialty Start Date End Date Teresa Aguilar MD [address] [place] [address] PCP - General 12/22/06 Roro Loo MD [address] [place] [address] Pulmonary and Critical Care Medicine 06/08/23 Remote Control Mirror Installer Relationship Specialty Start Date End Date Teresa Aguilar MD [address] [place] [address] PCP - General 12/22/06 Roro Loo MD [address] [place] [address] Pulmonary and Critical Care Medicine 06/08/23 Remote Control Mirror Installer Relationship Specialty Start Date End Date Teresa Aguilar MD [address] [place] [address] PCP - General 12/22/06 Roro Loo MD [address] [place] [address] Pulmonary and Critical Care Medicine 06/08/23 Remote Control Mirror Installer Relationship Specialty Start Date End Date Teresa Aguilar MD [address] [place] [address] PCP - General 12/22/06 Roro Loo MD [address] [place] [address] Pulmonary and Critical Care Medicine 06/08/23 Remote Control Mirror Installer Relationship Specialty Start Date End Date Teresa Aguilar MD [address] [place] [address] PCP - General 12/22/06 Roro Loo MD [address] [place] [address] Pulmonary and Critical Care Medicine 06/08/23 Remote Control Mirror Installer Relationship Specialty Start Date End Date Teresa Aguilar MD [address] [place] [address] PCP - General 12/22/06 Roro Loo MD [address] [place] [address] Pulmonary and Critical Care Medicine 06/08/23 Remote Control Mirror Installer Relationship Specialty Start Date End Date Teresa Aguilar MD [address] [place] [address] PCP - General 12/22/06 Roro Loo MD [address] [place] [address] Pulmonary and Critical Care Medicine 06/08/23 Remote Control Mirror Installer Relationship Specialty Start Date End Date Teresa Aguilar MD [address] [place] [address] PCP - General 12/22/06 Roro Loo MD [address] [place] [address] Pulmonary and Critical Care Medicine 06/08/23 Nga Ferrer APRN.CNP [address] [place] [address] Molded Goods Operator Family Medicine 08/20/24 Remote Control Mirror Installer Relationship Specialty Start Date End Date Teresa Aguilar MD [address] [place] [address] PCP - General 12/22/06 Roro Loo MD [address] [place] [address] Pulmonary and Critical Care Medicine 06/08/23 Nga Ferrer 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 [address] [place] [address] [facility] 08/20/24 Josh Butterfield APRN.WARD SERVICE SUPERVISOR [address] [place] [address] [facility] 08/29/24 Remote Control Mirror Installer Relationship Specialty Start Date End Date Teresa Aguilar MD [address] [place] [address] PCP - General 12/22/06 Roro Loo MD [address] [place] [address] Pulmonary and Critical Care Medicine 06/08/23 Nga Ferrer 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 [address] [place] [address] [facility] 08/20/24 Josh Butterfield APRN.WARD SERVICE SUPERVISOR [address] [place] [address] [facility] 08/29/24 Remote Control Mirror Installer Relationship Specialty Start Date End Date Teresa Agiular MD [address] [place] [address] PCP - General 12/22/06 Roro Loo MD [address] [place] [address] Pulmonary and Critical Care Medicine 06/08/23 Nga Ferrer APRN.WARD SERVICE SUPERVISOR [address] [place] [address] Molded Goods Operator Family [facility] 08/20/24 Josh Butterfield APRN.WARD SERVICE SUPERVISOR [address] [place] [address] [facility] 08/[facility]/24 Remote Control Mirror Installer Relationship Specialty Start Date End Date Teresa Aguilar MD [address] [place] [address] PCP - General 12/22/06 Roro Loo MD [address] [place] [address] Pulmonary and Critical Care Medicine 06/08/23 Nga Ferrer APRN.WARD SERVICE SUPERVISOR [address] [place] [address] Molded Goods Operator [facility] 08/20/24 Josh Butterfield APRN.WARD SERVICE SUPERVISOR [address] [place] [address] [facility] 08/29/24 Remote Control Mirror Installer Relationship Specialty Start Date End Date Teresa Aguilar MD [address] [place] [address] PCP - General 12/22/06 Roro Loo MD [address] [place] [address] Pulmonary and Critical Care Medicine 06/08/23 Nga Ferrer APRN.WARD SERVICE SUPERVISOR [address] [place] [address] [facility] 08/20/24 Josh Butterfield APRN.WARD SERVICE SUPERVISOR [address] [place] [address] [facility] 08/29/24 Remote Control Mirror Installer Relationship Specialty Start Date End Date Teresa Aguilar MD [address] [place] [address] PCP - General 12/22/06 Roro Loo MD [address] [place] [address] Pulmonary and Critical Care Medicine 06/08/23 Nga Fererr APRN.WARD SERVICE SUPERVISOR [address] [place] [address] [facility] 08/20/24 Josh Butterfield APRN.WARD SERVICE SUPERVISOR [address] [place] [address] [facility] 08/29/24 Remote Control Mirror Installer Relationship Specialty Start Date End Date Teresa Aguilar MD [address] [place] [address] PCP - General 12/22/06 Roro Loo MD [address] [place] [address] Pulmonary and Critical Care Medicine 06/08/23 Nga Ferrer APRN.WARD SERVICE SUPERVISOR [address] [place] [address] [facility] 08/20/24 Josh Butterfield APRN.WARD SERVICE SUPERVISOR [address] [place] [address] [facility] 08/29/24 Remote Control Mirror Installer Relationship Specialty Start Date End Date Teresa Aguilar MD [address] [place] [address] PCP - General 12/22/06 Roro Loo MD [address] [place] [address] Pulmonary and Critical Care Medicine 06/08/23 Nga Ferrer 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 [address] [place] [address] [facility] 08/20/24 Josh Butterfield 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 [address] [place] [address] [facility] 08/29/24 Remote Control Mirror Installer Relationship Specialty Start Date End Date Teresa Aguilar MD [address] [place] [address] PCP - General 12/22/06 Roro Loo MD [address] [place] [address] Pulmonary and Critical Care Medicine 06/08/23 Nga Ferrer APRN.WARD SERVICE SUPERVISOR [address] [place] [address] Molded Goods Operator [facility] 08/20/24 Josh Butterfield APRN.WARD SERVICE SUPERVISOR [address] [place] [address] [facility] 08/29/24 Remote Control Mirror Installer Relationship Specialty Start Date End Date Teresa Aguilar MD [address] [place] [address] PCP - General 12/22/06 Roro Loo MD [address] [place] [address] Pulmonary and Critical Care Medicine 06/08/23 Nga Ferrer APRN.WARD SERVICE SUPERVISOR [address] [place] [address] [facility] 08/20/24 Josh Butterfield APRN.WARD SERVICE SUPERVISOR [address] [place] [address] [facility] 08/29/24 Remote Control Mirror Installer Relationship Specialty Start Date End Date Teresa Aguilar MD [address] [place] [address] PCP - General 12/22/06 Roro Loo MD [address] [place] [address] Pulmonary and Critical Care Medicine 06/08/23 Nga Ferrer APRN.WARD SERVICE SUPERVISOR [address] [place] [address] Molded Goods Operator [facility] 08/20/24 Josh Butterfield APRN.WARD SERVICE SUPERVISOR [address] [place] [address] [facility] 08/29/24 Remote Control Mirror Installer Relationship Specialty Start Date End Date Teresa Aguilar MD [address] [place] [address] PCP - General 12/22/06 Roro Loo MD [address] [place] [address] Pulmonary and Critical Care Medicine 06/08/23 Josh Butterfield APRN.WARD SERVICE SUPERVISOR [address] [place] [address] Molded Goods [facility] Remote Control Mirror Installer Relationship Specialty Start Date End Date Teresa Aguilar MD [address] [place] [address] PCP - General 12/22/06 Roro Loo MD [address] [place] [address] Pulmonary and Critical Care Medicine 06/08/23 Josh Butterfield APRN.WARD SERVICE SUPERVISOR [address] [place] [address] [employer] [facility] [facility] 08/29/24 Remote Control Mirror Installer Relationship Specialty Start Date End Date Teresa Aguilar MD [address] [place] [address] PCP - General 12/22/06 Roro Loo MD [address] [place] [address] Pulmonary and Critical Care Medicine 06/08/23 Josh Butterfield APRN.WARD SERVICE SUPERVISOR [address] [place] [address] [employer] 08/29/24 Remote Control Mirror Installer Relationship Specialty Start Date End Date Teresa Aguilar MD [address] [place] [address] PCP - General 12/22/06 Roro Loo MD [address] [place] [address] Pulmonary and Critical Care Medicine 06/08/23 Josh Butterfield APRN.WARD SERVICE SUPERVISOR [address] [place] [address] [facility] 08/29/24 Remote Control Mirror Installer Relationship Specialty Start Date End Date Teresa Aguilar MD [address] [place] [address] PCP - General 12/22/06 Roro Loo MD [address] [place] [address] Pulmonary and Critical Care Medicine 06/08/23 Josh Butterfield APRN.WARD SERVICE SUPERVISOR [address] [place] [address] Molded Goods [facility] 08/29/24 Remote Control Mirror Installer Relationship Specialty Start Date End Date Teresa Aguilar MD [address] [place] [address] PCP - General 12/22/06 Roro Loo MD [address] [place] [address] Pulmonary and Critical Care Medicine 06/08/23 Josh Butterfield APRN.WARD SERVICE SUPERVISOR [address] [facility] [place] [address] [facility] 08/29/24 Remote Control Mirror Installer Relationship Specialty Start Date End Date Teresa Aguilar MD [address] [facility] [place] [address] PCP - General 12/22/06 Roro Loo MD [address] [place] [address] Pulmonary and Critical Care Medicine 06/08/23 Josh Butterfield APRN.WARD SERVICE SUPERVISOR [address] [facility] [place] [address] [facility] 08/29/24 Remote Control Mirror Installer Relationship Specialty Start Date End Date Teresa Aguilar MD [address] [place] [address] PCP - General 12/22/06 Roro Loo MD [address] [place] [address] Pulmonary and Critical Care Medicine 06/08/23 Josh Butterfield APRN.WARD SERVICE SUPERVISOR [address] [facility] [place] [address] [facility] 08/29/24 Remote Control Mirror Installer Relationship Specialty Start Date End Date Teresa Aguilar MD [address] [facility] [place] [address] PCP - General 12/22/06 Roro Loo MD [address] [place] [address] Pulmonary and Critical Care Medicine 06/08/23 Josh Butterfield APRN.WARD SERVICE SUPERVISOR [address] [place] [address] [facility] 08/29/24 Remote Control Mirror Installer Relationship Specialty Start Date End Date Teresa Aguilar MD [address] [place] [address] PCP - General 12/22/06 Roro Loo MD [address] [place] [address] Pulmonary and Critical Care Medicine 06/08/23 Josh Butterfield APRN.WARD SERVICE SUPERVISOR [address] [place] [address] [facility] 08/29/24 Remote Control Mirror Installer Relationship Specialty Start Date End Date Teresa Aguilar MD [address] [facility] [place] [address] PCP - General 12/22/06 Roro Loo MD [address] [place] [address] Pulmonary and Critical Care Medicine 06/08/23 Josh Butterfield APRN.WARD SERVICE SUPERVISOR [address] [place] [address] Molded Goods Operator [facility] 08/29/24 Remote Control Mirror Installer Relationship Specialty Start Date End Date Teresa Aguilar MD [address] [place] [address] PCP - General 12/22/06 Roro Loo MD [address] [place] [address] Pulmonary and Critical Care Medicine 06/08/23 Josh Butterfield APRN.WARD SERVICE SUPERVISOR [address] [place] [address] [facility] 08/29/24 Remote Control Mirror Installer Relationship Specialty Start Date End Date Teresa Aguilar MD [address] [place] [address] PCP - General 12/22/06 Roro Loo MD [address] [facility] [place] [address] Pulmonary and Critical Care Medicine 06/08/23 Josh Butterfield APRN.WARD SERVICE SUPERVISOR [address] [place] [address] Molded Goods Operator [facility] 08/29/24 Team Status: Active Member Role/Relationship Status Dates Dr. Teresa Aguilar MD Primary Care Provider Active Team Status: Inactive Member Role/Relationship Status Dates Dr. Teresa Aguilar MD Primary Care Provider Active Start: April 28, 2025 End: April 28, 2025 Dr. Chester Alejandro MD Emergency Provider Active Start: April 28, 2025 End: April 28, 2025 Care Team (unrecognized sect ion and content) Care Team Personnel Name: TERESA AGUILAR MD Member Role: Primary Care Physician Address: Address: [address] [place] [address] [place] Name: ASHLEE Skinner Position: AO RN Member Role: ED RN Name: TYLER CARRASCO MD Position: ED Physician Member Role: ED Physician Address: Address: [address] [place], [place] [id number]- Care Team Related Persons Name: JOSH RAMSEY Name: JOSH RAMSEY Name: JOSH RAMSEY Name: JOSH RAMSEY Name: JOSH RAMSEY Name: JOSH RAMSEY Name: JOSH RAMSEY Name: JOSH RAMSEY Name: OJSH RAMSEY Address: Home [address] [place] [address] [place] Name: JOSH RAMSEY Address: Home [address] [place] [address] [place] Name: JOSH RAMSEY Address: Home [address] [place] [address] [place] Name: JOSH RAMSEY Address: Home [address] [address] [place] Name: JOSH RAMSEY Address: Home [address] [place] [address] [place] Name: JOSH RAMSEY Address: Home [address] [address] [place] Name: JOSH RAMSEY Address: Home [address] [place] [address] [place] Name: JOSH RAMSEY Address: Home [address] [place] [address] [place] Name: WILFREDO RAMSEY Address: Home [address] [place] [address] [place] Name: WILFREDO RAMSEY Address: Home [address] [place] [address] [place] Name: NONE, O Care Team Personnel Name: TERESA AGUILAR MD Member Role: Primary Care Physician Address: Address: [address] [place] [address]- Care Team Related Persons Name: JOSH RAMSEY Name: JOSH RAMSEY Name: JOSH RAMSEY Name: JOSH RAMSEY Name: JOSH RAMSEY Name: LISA RAMSEYE Name: JOSH RAMSEY Name: JOSH RAMSEY Name: JOSH RAMSEY Address: Home [address] [place] [address] [place] Name: JOSH RAMSEY Address: Home [address] [place] [address] [place] Name: JOSH RAMSEY Address: Home [address] [place] [address] [place] Name: JOSH RAMSEY Address: Home [address] [place] [address] [place] Name: JOSH RAMSEY Address: Home [address] [place] [address] [place] Name: JOSH RAMSEY Address: Home [address] [address] [place] Name: JOSH RAMSEY Address: Home [address] [address] [place] Name: JOSH RAMSEY Address: Home [address] [address] [place] Name: WILFREDO RAMSEY Address: Home [address] [place] [address] [place] Name: WILFREDO RAMSEY Address: Home [address] [place] [address] [place] Name: NONE, O Care Team Personnel Name: TERESA AGUILAR MD Member Role: Primary Care Physician Address: Address: [address] [place] [address]- Name: ALISSA POWERS MD Position: ED Physician Member Role: ED Physician Address: Address: [facility] [address] [place] [address]- Care Team Related Persons Name: JOSH RAMSEY Name: JOSH RAMSEY Name: JOSH RAMSEY Name: JOSH RAMSEY Name: LISA RAMSEYE Name: LISA RAMSEYE Name: JOSH RAMSEY Name: JOSH RAMSEY Name: JOSH RAMSEY Address: Home [address] [address] [place] Name: JOSH RAMSEY Address: Home [address] [address] [place] Name: JOSH RAMSEY Address: Home [address] [place] [address] [place] Name: JOSH RAMSEY Address: Home [address] [place] [address] [place] Name: JOSH RAMSEY Address: Home [address] [place] [address] [place] Name: JOSH RAMSEY Address: Home [address] [place] [address] [place] Name: JOSH RAMSEY Address: Home [address] [place] [address] [place] Name: JOSH RAMSEY Address: Home [address] [place] [address] [place] Name: WILFREDO RAMSEY Address: Home [address] [place], [place] [address] Name: WILFREDO RAMSEY Address: Home [address] [place] [address] [place] Name: NONE, O Care Team Personnel Name: TERESA AGUILAR MD Member Role: Primary Care Physician Address: Address: [address] [place] [id number] [place] [address] Name: ASHLEE Skinner Position: AO RN Member Role: ED RN Name: RAMÓN MARSH DO Position: ED Physician Member Role: Attending Physician Address: Address: [address] [place] [id number] Care Team Related Persons Name: JOSH RAMSEY Name: JOSH RAMSEY Name: ROXY JOSH Name: ROXY, JOSH Name: ROXY, JOSH Name: ROXY JOSH Name: LISA RAMSEYE Name: LISA RAMSEYE Name: JOSH RAMSEY Address: [address] [place] [address] [place] Name: JOSH RAMSEY Address: Home [address] [address] [place] Name: JOSH RAMSEY Address: [address] [place] [address] [place] Name: JOSH RAMSEY Address: Home [address] [place] [address] [place] Name: JOSH RAMSEY Address: Home [address] [place] [address] [place] Name: JOSH RAMSEY Address: Home [address] [place] [address] [place] Name: JOSH RAMSEY Address: Home [address] [place] [address] [place] Name: JOSH RAMSEY Address: Home [address] [place] [address] [place] Name: WILFREDO RAMSEY Address: Home [address] Name: WILFREDO RAMSEY Address: Home [address] [place] [address] [place] Name: NONE, O Reason for Visit (unrecogniz ed section and content) Reason Comments ER F/U [facility] on 2, fell and injured right ankle Reason Comments Fall Reason Comments Acute Visit falls Reason Onset Date Comments Refill Request 09/10/2022 Reason Comments Medication Problem Reason Comments Dizziness Reason Comments Results Labs Reason Comments New Patient Evaluation Specialty Diagnoses / Procedures Referred By Contlenny t Referred To Contact Neurology Diagnoses Forgetfulness Dizziness Procedures CONSULT TO NEUROLOGY OFFICE/OUTPATIENT NEW HIGH MDM 60-74 MINUTES Nga Ferrer, 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 [address] [place] [address] Referral ID Status Reason Start Date Expiration Date V isits Requested Visits Authorized [id number] Closed PCP Requested Referral 11/12/2022 11/12/2023 1 [...] By Contac t Referred To Contact [facility] Diagnoses Narrowing of lumbar intervertebral disc space Procedures CONSULT TO [facility] OFFICE/OUTPATIENT NEW HIGH MDM 60-74 MINUTES Nga Ferrer, 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 [address] [place] [address] Referral ID Status Reason Start Date Expiration Date V isits Requested Visits Authorized [id number] Closed PCP Requested Referral 05/13/2023 05/12/2024 1 1 Reason Comments Spirometry Specialty Diagnoses / Procedures Referred By Contac t Referred To [facility] [place] Diagnoses Chronic obstructive pulmonary disease, unspecified COPD type (HCC) Procedures SPIROMETRY WITH DILATOR IF OBSTRUCTED BRNCDILAT RSPSE SPMTRY PRE&POST-BRNCDILAT ADMRoro Wolf MD [address] [place] [address] [facility] [address] [place] [address] Referral ID Status Reason Start Date Expiration Date V isits Requested Visits Authorized [id number] Closed Auto-Generate d Referral 05/31/2023 06/29/2024 1 1 Specialty Diagnoses / Procedures Referred By Contac t Referred To [facility] Diagnoses Chronic obstructive pulmonary disease, unspecified COPD type (HCC) Procedures LUNG DIFFUSION CAPACITY (DLCO) DIFFUSING CAPACITY Roro Loo MD [address] [place] [address] [address] Referral ID Status Reason Start Date Expiration Date V isits Requested Visits Authorized [id number] Closed Auto-Generate d Referral 05/31/2023 06/29/2024 1 1 Specialty Diagnoses / Procedures Referred By Contac t Referred To [facility] Diagnoses Chronic obstructive pulmonary disease, unspecified COPD type (HCC) Procedures OXIMETRY WITH AMBULATION NONINVASIVE EAR/PULSE OXIMETRY MULTIPLE Roro Bautista MD [address] [place] [address] [facility] [address] [place] [id number] Referral ID Status Reason Start Date Expiration Date V isits Requested Visits Authorized [id number] Closed Auto-Generate d Referral 05/31/2023 06/29/2024 1 [...] PHYSICAL THERAPY EVALUATION HIGH COMPLEX 45 MINS Perla Kennedy PA-C [address] [place] [address] [facility] [address] [address] Referral ID Status Reason Start Date Expiration Date V isits Requested Visits Authorized [id number] Closed Auto-Generate d Referral 09/13/2022 09/12/2023 1 1 Reason Comments Sink Cutter - Other Injection: 08/13 Reason Comments Appointment Reason Comments Forms For [employer] re: disabi lity Reason Comments Established Patient Follow Up Post Op Specialty Diagnoses / Procedures Referred By Contac t Referred To Contact Orthopedics / ORTHOPAEDIC SURGERY Diagnoses S/P R-RTSA 08-04-2023 Procedures POST OP Carolyn Jamison MD [address] [place] [address] Carolyn Jamison MD [address] [facility]. 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 [address] [id number] [facility] [place] [address] Referral ID Status Reason Start Date Expiration Date V isits Requested Visits Authorized [id number] Closed Auto-Generate d Referral 12/06/2023 02/21/2024 1 1 Specialty Diagnoses / Procedures Referred By Contac t Referred To Contact CT IMAGING Diagnoses Lung nodules Procedures CT CHEST WO IVCON DIAGNOSTIC COMPUTED TOMOGRAPHY THORAX W/O CNTRST [place] [facility], 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 [id number] [facility] Reason Comments [address] CT Specialty Diagnoses / Procedures Referred By Contac t Referred To Contact CT IMAGING Diagnoses Status post reverse total replacement of right shoulder Right shoulder pain, unspecified chronicity Procedures CT SHOULDER WO IVCON RIGHT CT UPPER EXTREMITY W/O CONTRAST MATERIAL Perla Kennedy PA-C [address] [place] [address] Ct [facility] Referral ID Status Reason Start Date Expiration Date V isits Requested Visits Authorized [id number] Closed Auto-Generate d Referral 02/18/2024 04/03/2024 1 1 Reason Onset Date Comments Refill Request 04/18/2024 Reason Comments [facility] ( [facility]) Reason Comments Follow Up Reason Comments Forms Reason Comments Orders Specialty Diagnoses / Procedures Referred By Contac t Referred To Contact [facility] Diagnoses Requires oxygen therapy Procedures SIX MINUTE WALK CARDIOPULMONARY EXERCISE STRESS Teresa Aguilar MD [address] [place] [address] [facility] [address] [place], [place] [id number] Referral ID Status Reason Start Date Expiration Date V isits Requested Visits Authorized [id number] Closed Auto-Generate d Referral 05/25/2024 06/24/2025 1 1 Reason Onset Date Comments Refill Request 06/06/2024 Reason Comments Acute Visit Memory problems Reason Comments Radiology CT Referral ID Status Reason Start Date Expiration Date V isits Requested Visits Authorized [id number] Closed Auto-Generat ed Referral Patient Cleared - Admin/Chairm an/Director advise to proceed or did not respond 06/29/2024 08/13/2024 1 1 Reason Comments Forms [employer] [place] Reason Onset Date Comments Refill Request 07/28/2024 Reason Onset Date Comments Refill Request 08/07/2024 Reason Onset Date Comments Refill Request 08/25/2024 Reason Onset Date Comments Refill Request 09/18/2024 Reason Comments Forms [employer] [facility] re Reason Onset Date Comments Refill Request 10/13/2024 Reason Onset Date Comments Refill Request 11/06/2024 Reason Comments letter Reason Comments Acute Visit discuss getting a le tter for housing due to disablity Reason Comments Question Re: Disability forms /Letter Reason Comments New Patient C/o frequent falls, cognitive changes Specialty Diagnoses / Procedures Referred By Josh redd Referred To Contact Neurology Diagnoses Falls Cognitive changes Procedures CONSULT TO NEUROLOGY OFFICE/OUTPATIENT NEW HIGH MDM 60 MINUTES Nga Ferrer APRN.CNP [address] [place] [address] Phone: tel: fax: Referral ID Status Reason Start Date Expiration Date V isits Requested Visits Authorized [id number] Closed PCP Requested Referral 06/09/2024 06/09/2025 1 1 Reason Onset Date Comments Refill Request 01/02/2025 Reason Comments Forms [employer]/area agency on aging Reason Comments Forms [employer] [place] [facility] are Reason Onset Date Comments Refill [...] STEM W/O CONTRAST MATERIAL Cora Gil PA-C [address] [place] [address] Phone: tel: fax: [facility] Referral ID Status Reason Start Date Expiration Date V isits Requested Visits Authorized [id number] Closed Auto-Generate d Referral 02/08/2025 03/25/2025 1 [...] RE, EA 15 MIN. Teresa Aguilar MD [address] [place] [address] Phone: tel: fax: [facility] [address] [place] [address] Referral ID Status Reason Start Date Expiration Date Visits Requested Visits Authorized [id number] Authorized Auto-Generat ed Referral 11/11/2024 09/12/2025 99 99 Reason Comments Physical Therapy Specialty Diagnoses / Procedures Referred By Contac t Referred To Contact [facility] Diagnoses Falls Balance disorder Procedures CONSULT TO PHYSICAL THERAPY PHYSICAL THERAPY EVALUATION HIGH COMPLEX 45 MINS THERAPEUTIC EXERCISES RE, EA 15 MIN. Teresa Aguilar MD [facility] [place] [address] Phone: tel: fax: [facility] [address] [place] [id number] Referral ID Status Reason Start Date Expiration Date Visits Requested Visits Authorized [id number] Authorized Auto-Generat ed Referral 11/11/2024 09/12/2025 99 [...] BE BASED ON THE PRIMARY CLINICAL RECORDS. [facility] [employer] [facility]. provides no warranty or guarantee of the accuracy or completeness of information in this document.
--- NOTE | 2025-05-19 18:50 | RAD_ITS ---
PROCEDURE: FOOT MIN 3 VIEWS 05/19/2025 REASON FOR EXAM: PAIN TECHNIQUE: Procedure Code: RADFO Modality: DX Procedure: FOOT MIN 3 VIEWS Laterality: Right COMPARISON: None FINDINGS: Osseous: No acute fracture or malalignment of the right foot is seen. Mild osteoarthritic changes noted at the 1st metatarsal head. Mild distal interphalangeal joint space loss of the digits. No bone lesion or periosteal reaction. The toes are held in slight flexion. Soft tissues: Soft tissue injury can not be assessed by this study. RAD/Foot min 3 Views IMPRESSION: No radiographic evidence of an acute osseous injury to the right foot. - Other findings discussed above. Reading Location: [id number]
[2025-05-19] MEDS: HYDROcodone Bitartrate/Apap 5/325 Tablet PO (18:52)
== END 2025-05-19 21:16 | disposition home or self-care (01) ==
PROVIDERS: Emergency Provider Surgery; PCP Family Medicine; Visit Provider Surgery
DX: S93.401A Sprain of unspecified ligament of right ankle, initial encounter (principal); J43.9 Emphysema, unspecified; I10 Essential (primary) hypertension; S90.31XA Contusion of right foot, initial encounter; F17.210 Nicotine dependence, cigarettes, uncomplicated; W17.89XA Other fall from one level to another, initial encounter
CPT/HCPCS: 73610; 73630; 96372; 99285